=== PATIENT | male | born 1950 | race Caucasian/White ===

== ENCOUNTER 2016-04-14 18:05 | Inpatient (IN) | payer BC ==
[~2016-04-14] VITALS: Ht 167.6 cm; Wt 98.0 kg
[2016-04-14] VITALS (8 sets, daily range): BP systolic 71–135; BP diastolic 50–121; PULSE 84–98; TEMP 36.7–36.9; O2SAT 91–95; Ht 167.6 cm; Wt 98.0 kg
[~2016-04-14 18:05] MED LIST: B-COCAP2 PO; FLUT45AE IN; FLV1 PO; LDDP5 EXT; TPRSR/50 PO; VNTHFA/IN INH
[2016-04-14] MEDS ORDERED: ONDANSETRON INJ 2 MG/ML 2 ML VIAL IV STA (18:09)
[2016-04-14] MEDS: MoRPHine SULFATE 4 MG/ML 1 ML CARP\\VIAL IV PRN ×5 (18:18→20:56)
--- NOTE | 2016-04-14 18:25 | EMERGENCY ROOM VISIT NOTE ---
History Report prepared by Hilary: Gretchen Bucio Under the Supervision of: Dr. Salas Allen D.O. 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 Accounting to EMS the patient was walking backwards carrying a [place] tree and feel down causing his right hip pain. The patient states that he lightly bumped his head but did states that he did not lose consciousness. The patient denies any chest pain, back pain, headache, nausea or vomiting. The patient states that movement worsens his pain. 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 The patient states that he did drink 3 beers tonight prior to the fall. 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 A total of 10 systems reviewed and were otherwise negative. Past Medical & Surgical Medical Problems: (1) Alcohol abuse (2) Alcoholic Hyponatremia (3) COPD (chronic obstructive pulmonary disease) (4) Femur fracture, right (5) Hypertension (6) Metabolic encephalopathy (7) Multiple fractures of ribs of left side (8) Neuropathy Family History Heart disease Social History Smoking Status: Current Every Day Smoker Alcohol Use: none Drug Use: none Marital Status: Housing Status: lives with family Occupation Status: unemployed Current/Historical Medications Scheduled Atorvastatin (Lipitor), 40 MG PO QAM Fluticasone Propionate (Nasal) (Flonase Allergy Relief), 1-2 SPRAY HOSSEIN DAILY Fluticasone-Salmeterol 45/21 Mcg (Advair Hfa 45/21 Mcg), 1 PUFFS IN BID Folic Acid (Folic Acid), 1 MG PO QAM Lisinopril (Zestril), 10 MG PO QAM Metoprolol Succ (Toprol Xl) (Toprol-Xl), 25 MG PO QAM Metoprolol Succinate (Metoprolol Succinate ER), 50 MG PO QAM Oxcarbazepine (Trileptal), 1 TAB PO BID Pantoprazole (Protonix), 40 MG PO DAILY Pregabalin (Lyrica), 75 MG PO BID Thiamine Hcl (Vitamin B-1), 100 MG PO BID Venlafaxine Hcl (Venlafaxine Extended Rel), 150 MG PO QAM Vitamin B Cmplx/Vitc/Folic Ac (Nephrocaps), 1 CAP PO QAM Scheduled PRN Acetaminophen (Tylenol), 325-650 MG PO Q4H PRN for Pain Albuterol Hfa (Ventolin Hfa), 1-2 PUFFS INH Q4 PRN for Shortness of Breath Indomethacin (Indocin), 50 MG PO DAILY PRN for FLARE UP Allergies Coded Allergies: No Known Allergies (Unverified , 03/06/16) Physical Exam Vital Signs Date Time Temp Pulse Resp B/P Pulse Ox O2 Delivery O2 Flow Rate FiO2 04/14/16 20:09 94 18 108/75 96 Room Air 04/14/16 18:26 37.1 84 18 145/97 98 Room Air 04/14/16 18:24 85 Physical Exam GENERAL: Patient is awake, alert, very anxious and appears to be in significant pain. EYES: The conjunctivae are clear. The pupils are round and reactive. EARS, NOSE, MOUTH AND THROAT: The nose is without any evidence of any deformity. Mucous membranes are moist tongue is midline NECK: The neck is nontender and supple. Multiple dental caries noted throughout. RESPIRATORY: Normal respiratory effort is noted there is expiratory wheezing noted. No conversational dyspnea noted. CARDIOVASCULAR: Regular rate and rhythm noted there no murmurs rubs or gallops normal S1 normal S2 GASTROINTESTINAL: The abdomen is soft. Bowel sounds are present in all quadrants. Abdomen is nontender MUSCULOSKELETAL/EXTREMITIES: Right lower extremity was shortened and externally rotated. Patient has pain with any ROM of the right hip. SKIN: There is no obvious evidence of any rash. There are no petechiae, pallor or cyanosis noted. Severe pedal edema noted bilaterally, no signs of cellulitis. NEUROLOGIC: Patient is awake alert and oriented x3. Medical Decision & Procedures ER Provider Diagnostic Interpretation: X-ray results as stated below per interpretation by me and the radiologist. SINGLE VIEW PELVIS; 2 VIEWS RIGHT HIP; 3 VIEWS RIGHT FEMUR CLINICAL HISTORY: Fall with right leg pain. FINDINGS: An AP pelvic radiograph with AP and crosstable lateral views of the right hip as well as AP, frog-leg, and crosstable lateral views of the right femur are obtained. Correlation is made with pelvic CT dated 09/04/2015. The skeletal structures are osteopenic. The bony pelvis and visualized left hip appear intact. There is a comminuted, angulated, and distracted fracture of the subtrochanteric right femur. There is medial distraction of a large fragment which contains the lesser trochanter. There is anterior distraction of the distal femoral diaphysis by at least 4 cm. There is overriding of the fragments by approximately 8 cm. Overlying soft tissue hematoma is noted. The distal femur appears intact. The hip and knee joints appear preserved. Arthritic change is present within both hips. Calcified phleboliths are observed in the pelvis. There is a nonobstructed abdominal bowel gas pattern. IMPRESSION: 1. There is a comminuted, distracted, angulated, and overriding fracture of the subtrochanteric right femur with overlying soft tissue hematoma. See above. 2. The distal right femur appears intact. The bony pelvis and imaged left hip appear intact. Electronically signed by: Jack Santamaria M.D. 04/14/2016 7:41 PM Dictated Date/Time: 04/14/2016 7:37 PM SINGLE VIEW CHEST CLINICAL HISTORY: Fall. FINDINGS: An AP, portable, supine chest radiograph is compared to study dated 02/12/2015 and correlated with chest CT dated 09/04/2015. The examination is degraded by portable technique and patient rotation. The cardiomediastinal silhouette is unremarkable. Chronic interstitial thickening is similar to previous. There is no airspace consolidation, large pleural effusion, or pneumothorax. The skeletal structures are osteopenic. The bony thorax is grossly intact. IMPRESSION: No acute cardiopulmonary abnormality. Electronically signed by: Jack Santamaria M.D. 04/14/2016 7:43 PM Dictated Date/Time: 04/14/2016 7:41 PM SINGLE VIEW PELVIS; 2 VIEWS RIGHT HIP; 3 VIEWS RIGHT FEMUR CLINICAL HISTORY: Fall with right leg pain. FINDINGS: An AP pelvic radiograph with AP and crosstable lateral views of the right hip as well as AP, frog-leg, and crosstable lateral views of the right femur are obtained. Correlation is made with pelvic CT dated 09/04/2015. The skeletal structures are osteopenic. The bony pelvis and visualized left hip appear intact. There is a comminuted, angulated, and distracted fracture of the subtrochanteric right femur. There is medial distraction of a large fragment which contains the lesser trochanter. There is anterior distraction of the distal femoral diaphysis by at least 4 cm. There is overriding of the fragments by approximately 8 cm. Overlying soft tissue hematoma is noted. The distal femur appears intact. The hip and knee joints appear preserved. Arthritic change is present within both hips. Calcified phleboliths are observed in the pelvis. There is a nonobstructed abdominal bowel gas pattern. IMPRESSION: 1. There is a comminuted, distracted, angulated, and overriding fracture of the subtrochanteric right femur with overlying soft tissue hematoma. See above. 2. The distal right femur appears intact. The bony pelvis and imaged left hip appear intact. Electronically signed by: Jack Santamaria M.D. 04/14/2016 7:41 PM Dictated Date/Time: 04/14/2016 7:37 PM Laboratory Results Test 04/14/16 18:50 Prothrombin Time 11.3 SECONDS (9.0-12.0) Prothromb Time International Ratio 1.1 (0.9-1.1) Activated Partial Thromboplast Time 26.6 SECONDS (21.0-31.0) Partial Thromboplastin Ratio 1.0 Total Bilirubin 0.4 mg/dl (0.2-1) Direct Bilirubin < 0.1 mg/dl (0-0.2) Aspartate Amino Transf (AST/SGOT) 95 U/L (15-37) Alanine Aminotransferase (ALT/SGPT) 66 U/L (12-78) Alkaline Phosphatase 163 U/L (45-117) Total Creatine Kinase 88 U/L (39-308) Creatine Kinase MB 2.5 ng/ml (0.5-3.6) Creatine Kinase MB Ratio 2.8 (0-3.0) Troponin I < 0.015 ng/ml (0-0.045) Total Protein 6.9 gm/dl (6.4-8.2) Albumin 2.8 gm/dl (3.4-5.0) Lipase 265 U/L (73-393) Laboratory results per my review. Medications Administered Medications (Trade) Dose Ordered Sig/Feroz Route Start Time Stop Time Status Last Admin Dose Admin Ondansetron HCl (Zofran Inj) 4 mg NOW STAT IV 04/14/16 18:09 04/14/16 18:13 DC 04/14/16 18:18 4 MG Morphine Sulfate (MoRPHine SULFATE INJ) 4 mg Q15M PRN IV 04/14/16 18:15 04/14/16 22:02 DC 04/14/16 20:56 4 MG Hydromorphone HCl 1 mg 1 mg Q2H PRN IV 04/14/16 20:15 04/14/16 22:04 DC 04/14/16 21:52 1 MG Multivitamins/ Thiamine HCl/ Folic Acid/Sodium Chloride (Mvi Infusion Inj/Vitamin B-1 Inj/Folvite Inj/ Nss 1000ml) 1,011.2 ml @ 100 mls/ hr Q10H7M ONCE IV 04/14/16 20:30 04/15/16 06:36 DC 04/14/16 21:35 100 MLS/HR ED Course 1801: The patient was evaluated in room A2. A complete history and physical examination were performed. 1808: Ordered Zofran Inj 4 mg IV. 1814: Ordered Morphine Sulfate 4 mg IV. 1930:I discussed the case with Dr[facility] He agreed to evaluate the patient for further management and care. 1939: I discussed the case with Dr. Houston Orthopedic Surgeon. He states that the patient can be admitted and he will then evaluate his for surgery. Medical Decision Differential diagnosis: Etiologies such as fracture, dislocation, neurovascular compromise, compartment syndrome, soft tissue injury, as well as others were entertained. Nursing notes reviewed. The patient is a 65-year-old male who presented to the emergency department after fall. The patient was drinking some alcoholic beverages this evening but he was backing out of his doorway carrying his [place] tree when he fell striking his right side. He had a very significant some trochanteric angulated and displaced as well as comminuted right hip fracture. The patient was treated with IV fluids IV pain medication in the emergency department. His pain was not well controlled because of the nature of this fracture. I discussed his case with the on-call orthopedic physician. I also discussed his case with the on- call [facility] hospitalist group. They have agreed to evaluate the patient in the emergency department for further management and disposition. The patient was reevaluated multiple times. I also discussed his radiographic findings with his significant other. She is aware that he will require surgery after medical clearance. Consults Time Called: 1929 Consulting Physician: Dr. Kim [facility] Returned Call: 1930 I discussed the case with Dr. Kim [facility]. He agreed to evaluate the patient for further management and care. Additional Consults: Time Called: 1929 Consulted Physician: Dr. [facility] Orthopedic Surgery Returned Call: 1939 Additional Comments: I discussed the case with Dr. Houston Orthopedic Surgeon. He states that the patient can be admitted and he will then evaluate his for surgery. Impression Primary Impression: Closed subtrochanteric fracture of femur Additional Impressions: Fall Comminuted, Displaced, and angulated Subtrochanteric Right Hip Fracture Scribe Attestation The scribe's documentation has been prepared under my direction and personally reviewed by me in its entirety. I confirm that the note above accurately reflects all work, treatment, procedures, and medical decision making performed by me. Departure Information Dispostion Being Evaluated By Hospitalist Jakob Vuong M.D. (PCP) Problem Qualifiers Additional Impressions:
[2016-04-14 19:11] LABS: BASO % 0.2 %; BASO ABS # 0.02 K/uL (0-0.2); COMPLETE YES; EOS % 1.1 %; HEMATOCRIT 35.4 % (42-52); IG% 0.5 %; LYMPH % 17.2 %; MEAN CELL VOLUME 98.1 fL (80-100); MEAN CORPUSCULAR HGB CONC 33.6 g/dl (32-36); MEAN PLATELET VOLUME 9.3 fL (7.4-10.4); MONO % 6.4 %; NEUT % 74.6 %; PLATELET COUNT 178 K/uL (130-400); RED BLOOD COUNT 3.61 M/uL (4.7-6.1); WHITE BLOOD COUNT 8.12 K/uL (4.8-10.8)
[2016-04-14 19:22] LABS: INR 1.1 (0.9-1.1); PROTHROMBIN TIME (PATIENT) 11.3 SECONDS (9.0-12.0)
[2016-04-14 19:27] LABS: ALT/SGPT 66 U/L (12-78); BLOOD UREA NITROGEN 9 mg/dl (7-18); BUN/CREATININE RATIO 10.2 (10-20); CALCIUM 8.2 mg/dl (8.5-10.1); CARBON DIOXIDE 25 mmol/L (21-32); CHLORIDE 97 mmol/L (98-107); CREATININE 0.86 mg/dl (0.60-1.40); GLUCOSE 94 mg/dl (70-99); POTASSIUM 3.8 mmol/L (3.5-5.1); SODIUM 134 mmol/L (136-145)
[2016-04-14 19:32] LABS: ALKALINE PHOSPHATASE 163 U/L (45-117); AST/SGOT 95 U/L (15-37); CKMB/CK RATIO 2.8 (0-3.0)
[2016-04-14] MEDS ORDERED: FLUT0.15 NAE (19:33)
[2016-04-14] MEDS ORDERED: THIA100T11 PO (19:33)
[2016-04-14] MEDS ORDERED: PANT40TA PO (19:33)
--- NOTE | 2016-04-14 19:43 | DIAGNOSTIC IMAGING REPORT ---
SINGLE VIEW PELVIS; 2 VIEWS RIGHT HIP; 3 VIEWS RIGHT FEMUR CLINICAL HISTORY: Fall with right leg pain. FINDINGS: An AP pelvic radiograph with AP and crosstable lateral views of the right hip as well as AP, frog-leg, and crosstable lateral views of the right femur are obtained. Correlation is made with pelvic CT dated 09/04/2015. The skeletal structures are osteopenic. The bony pelvis and visualized left hip appear intact. There is a comminuted, angulated, and distracted fracture of the subtrochanteric right femur. There is medial distraction of a large fragment which contains the lesser trochanter. There is anterior distraction of the distal femoral diaphysis by at least 4 cm. There is overriding of the fragments by approximately 8 cm. Overlying soft tissue hematoma is noted. The distal femur appears intact. The hip and knee joints appear preserved. Arthritic change is present within both hips. Calcified phleboliths are observed in the pelvis. There is a nonobstructed abdominal bowel gas pattern. IMPRESSION: 1. There is a comminuted, distracted, angulated, and overriding fracture of the subtrochanteric right femur with overlying soft tissue hematoma. See above. 2. The distal right femur appears intact. The bony pelvis and imaged left hip appear intact. Electronically signed by: Jack Santamaria M.D. 04/14/2016 7:41 PM Dictated Date/Time: 04/14/2016 7:37 PM
--- NOTE | 2016-04-14 19:44 | DIAGNOSTIC IMAGING REPORT ---
SINGLE VIEW CHEST CLINICAL HISTORY: Fall. FINDINGS: An AP, portable, supine chest radiograph is compared to study dated 02/12/2015 and correlated with chest CT dated 09/04/2015. The examination is degraded by portable technique and patient rotation. The cardiomediastinal silhouette is unremarkable. Chronic interstitial thickening is similar to previous. There is no airspace consolidation, large pleural effusion, or pneumothorax. The skeletal structures are osteopenic. The bony thorax is grossly intact. IMPRESSION: No acute cardiopulmonary abnormality. Electronically signed by: Jack Santamaria M.D. 04/14/2016 7:43 PM Dictated Date/Time: 04/14/2016 7:41 PM
[2016-04-14] MEDS ORDERED: HYDROmorphone INJ 1 MG/ML SYR IV PRN (20:15)
[2016-04-14] MEDS ORDERED: SODIUM CHLORIDE 0.9% 500ML 500 ML IV SCH (20:15)
[2016-04-14] MEDS ORDERED: ZOLPIDEM TARTRATE 5 MG TAB PO PRN (20:15)
[2016-04-14] MEDS ORDERED: ONDANSETRON INJ 2 MG/ML 2 ML VIAL IV PRN (20:15)
[2016-04-14] MEDS ORDERED: ACETAMINOPHEN 325 MG TAB PO PRN (20:15)
[2016-04-14] MEDS ORDERED: LEVALBUTEROL/IPRATROPIUM NEB INH PRN (20:15)
[2016-04-14] MEDS ORDERED: MULTI-VITAMIN INFUSION INJ 10 ML, THIAMINE HCL INJ 100 MG, FoLIC ACID INJ 1 MG in SODIU... IV ONE (20:30)
[2016-04-14] MEDS ORDERED: ERGOCALCIFEROL 50,000 INTER.UNIT CAP PO SCH (20:45)
--- NOTE | 2016-04-14 21:03 | HISTORY & PHYSICAL EXAMINATION ---
DATE OF ADMISSION: 04/14/2016 CHIEF COMPLAINT: Right hip and leg pain. HISTORY OF PRESENT ILLNESS: A 65-year-old male admitted through the Emergency Department who complains of right hip and leg pain after falling walking backwards carrying a [place] tree and slipped and fell and tripped and landed on his right side, sustained a severely displaced highly comminuted subtrochanteric femur fracture. He notes that he has a chronic neuropathy, had a history of having an epidural abscess that required surgical treatment at [place]. He now has chronic weakness in both legs and neuropathy. He admits to drinking a minimum of 3 beers a day. He does also smoke. He is interviewed in the presence of his and his granddaughter. REVIEW OF SYSTEMS: Reveals no chest pain, shortness of breath, fever or chills. He notes that he is in his usual state of good health otherwise. PAST MEDICAL AND SURGICAL HISTORY: Remarkable for alcohol abuse, hyponatremia, COPD, hypertension, metabolic encephalopathy, neuropathy, history of spinal decompression for epidural abscess and history of gout. FAMILY HISTORY: Remarkable for heart disease. SOCIAL HISTORY: Reveals that he smokes and drinks. He denies any other drug use. He is . He lives with his family. He is unemployed. PREADMISSION MEDICATIONS: Include Lipitor 40 mg daily, Flonase spray 1-2 sprays daily, Advair 1 puff b.i.d., folic acid 1 mg q.a.m., lisinopril 10 mg q.a.m., metoprolol 25 mg q.a.m., metoprolol ER 50 mg p.o. q.a.m., Trileptal 1 tab p.o. b.i.d., Protonix 40 mg daily, Lyrica 75 mg b.i.d., thiamine 100 mg p.o. b.i.d., venlafaxine extended release 150 mg p.o. q.a.m., vitamin B complex 1 capsule p.o. q.a.m.; p.r.n. Tylenol, p.r.n. albuterol and p.r.n., indomethacin. ALLERGIES: None. PHYSICAL EXAMINATION: GENERAL: Today reveals minor scuffs and scrapes of age-indeterminate time from fresh to old about the upper extremities, about his face. Denies any neck pain. HEENT: Pupils are slightly changed secondary to the morphine, they are equal, round and reactive to light. EOMI is intact. Eye membranes are clear. No trauma to the ears. NECK: nontender. CHEST: Mild wheezing with expiration. Distant breath sounds. CARDIOVASCULAR: Reveals distant breath sounds. No murmurs, gallops or rubs. GASTROINTESTINAL: Soft, bowel sounds active. EXTREMITIES: Both upper extremities have no major deformity or pain. Left lower extremity has no deformity or pain. Right lower extremity has severe shortening external rotation and pain. NEUROLOGICAL: Reveals that he is alert and oriented to person, place and time. He answers questions appropriately. He has upper extremity function is within normal limits. Lower extremity knee function reveals significant neuropathy in both lower extremities, right worse than left with weakness in both lower extremities and decreased sensation. IMAGING DATA: X-rays reveal no pelvic fracture, no femoral neck fracture and has a subtrochanteric femur fracture with significant subtroch extension. ASSESSMENT: Significantly displaced and angulated subtrochanteric femur fracture, right lower extremity. Will need open reduction internal fixation with locked troch nail, long variety. Will book for surgery tomorrow. Will be n.p.o. after midnight. Appropriate antibiotics will be ordered perioperatively. Consent was signed by him and his and with his medical history obviously comorbidities increase his chance for significant problems such as PE, DVT, heart and liver, lung disease, , anesthesia, failure to heal with his tobacco, malrotation because of the severity of the fracture, leg length shortening because of the severity of the fracture, to mention but not be completely inclusive. At this point in time, will prepare for surgery tomorrow. WENDY
[2016-04-14] MEDS ORDERED: HYDROmorphone INJ 1 MG/ML SYR XX PRN (21:30)
[2016-04-14] MEDS ORDERED: LEVALBUTEROL 1.25MG/0.5ML NEB INH PRN (21:30)
[2016-04-14] MEDS ORDERED: IPRATROPIUM BROMIDE NEB SOLN 0.02% 2.5 ML VIAL INH PRN (21:30)
[2016-04-14] MEDS ORDERED: INFLUENZA ADMINISTRATION CHARGE ONE (23:00)
[2016-04-14] MEDS ORDERED: INFLUENZA VIRUS QUAD VACCINE 0.5 ML SYR IM. ONE (23:00)
[2016-04-14] MEDS: PREGABALIN 75 MG CAP PO SCH (23:03)
[2016-04-14] MEDS: THIAMINE HCL 100 MG TAB PO SCH (23:04)
[2016-04-14] MEDS: OXCARBAZEPINE 150 MG TAB PO SCH (23:04)
[2016-04-14] MEDS: METOPROLOL SUCC 25MG EXT REL TAB PO SCH (23:04)
[2016-04-15] VITALS (20 sets, daily range): BP systolic 73–106; BP diastolic 54–84; PULSE 94–132; TEMP 36.1–37.6; O2SAT 92–100
[2016-04-15] MEDS: FLUTICASONE/SALMETEROL 100/50 (ADVAIR) 14 PUFF/1 INHALER INH SCH ×3 (00:45→21:06)
[2016-04-15] MEDS: HYDROmorphone INJ 1 MG/ML SYR IV PRN ×3 (00:50→08:15)
[2016-04-15 00:54] LABS: URINE APPEARANCE CLEAR (CLEAR); URINE BILIRUBIN NEG (NEG); URINE COLOR YELLOW; URINE NITRITE NEG (NEG); URINE SPECIFIC GRAVITY 1.011 (1.000-1.030); UROBILINOGEN NEG (NEG)
[2016-04-15 00:56] LABS: MANUAL MICROSCOPIC REQUIRED? NO; REVIEW REQ? NO
--- NOTE | 2016-04-15 04:55 | History and Physical ---
History & Physical Date & Time of Service: Apr 15, 2016 at 04:43 Chief Complaint: Femur Fracture, Right Primary Care Physician: Jakob Cage M.D. History of Present Illness Source: patient, family The patient is a 65-year-old male who presents emergency department with complaint of constant right hip pain that began shortly prior to arrival when he was dragging a [place] tree backwards out of his house and fell down. His only other injury was a slight bump to his head, but he did not lose consciousness and has no headache or other neurologic complaints. 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 He reports drinking 3 beers prior to his fall tonight. Past Medical/Surgical History Medical Problems: (1) Alcohol abuse Status: Chronic (2) Alcoholic Hyponatremia Status: Chronic (3) COPD (chronic obstructive pulmonary disease) Status: Chronic (4) Hypertension Status: Chronic (5) Metabolic encephalopathy Status: Chronic (6) Neuropathy Status: Chronic Family History Heart disease Social History Smoking Status: Current Every Day Smoker Smokeless Tobacco Use: No Alcohol Use: daily. Drug Use: none Marital Status: Housing status: lives with family Occupational Status: unemployed Multi-Drug Resistant Organisms History of MDRO: No Allergies Coded Allergies: No Known Allergies (Unverified , 03/06/16) Home Medications Scheduled Atorvastatin (Lipitor), 40 MG PO QAM Fluticasone Propionate (Nasal) (Flonase Allergy Relief), 1-2 SPRAY HOSSEIN DAILY Fluticasone-Salmeterol 45/21 Mcg (Advair Hfa 45/21 Mcg), 1 PUFFS IN BID Folic Acid (Folic Acid), 1 MG PO QAM Lisinopril (Zestril), 10 MG PO QAM Metoprolol Succ (Toprol Xl) (Toprol-Xl), 25 MG PO QAM Metoprolol Succinate (Metoprolol Succinate ER), 50 MG PO QAM Oxcarbazepine (Trileptal), 1 TAB PO BID Pantoprazole (Protonix), 40 MG PO DAILY Pregabalin (Lyrica), 75 MG PO BID Thiamine Hcl (Vitamin B-1), 100 MG PO BID Venlafaxine Hcl (Venlafaxine Extended Rel), 150 MG PO QAM Vitamin B Cmplx/Vitc/Folic Ac (Nephrocaps), 1 CAP PO QAM Scheduled PRN Acetaminophen (Tylenol), 325-650 MG PO Q4H PRN for Pain Albuterol Hfa (Ventolin Hfa), 1-2 PUFFS INH Q4 PRN for Shortness of Breath Indomethacin (Indocin), 50 MG PO DAILY PRN for FLARE UP Review of Systems The patient denies chest pain, palpitations, shortness of breath, cough, vision change, hearing change, sore throat, fevers, chills, sweats, weight change, fatigue, nausea, vomiting, abdominal pain, pelvic pain, blood in urine or stool , dysuria, urinary frequency or urgency, lightheadedness, dizziness, headache, memory loss, rash, abnormal bruising or bleeding, night sweats, or allergy symptoms. The review of systems is otherwise negative other than for that already noted above, and at least 10 systems have been reviewed. Physical Exam Vital Signs Date Time Temp Pulse Resp B/P Pulse Ox O2 Delivery O2 Flow Rate FiO2 04/14/16 23:50 Room Air 04/14/16 23:50 36.9 98 16 97/62 91 Room Air 04/14/16 22:46 36.7 96 22 93/50 91 Room Air 04/14/16 22:20 84 135/121 04/14/16 22:09 93/67 04/14/16 22:01 105/68 04/14/16 21:50 99/68 04/14/16 21:45 36.7 94 22 71/55 95 Room Air 04/14/16 21:30 36.7 94 22 105/68 95 Room Air 04/14/16 20:49 90 18 112/77 94 Room Air 04/14/16 20:09 94 18 108/75 96 Room Air 04/14/16 18:26 37.1 84 18 145/97 98 Room Air 04/14/16 18:24 85 The patient is awake, well-developed and adequately nourished, alert and oriented 3, normocephalic and atraumatic, lying in bed and in moderately severe distress secondary to right hip pain with minimal movement. HEENT--PERRL, EOMI, mucous membranes moist, and oropharynx normal. Neck--supple, no JVD or bruits, thyroid normal, trachea midline, no adenopathy. Heart--normal S1 and S2, no extra beats, no murmurs, rubs or gallops. Lungs--clear bilaterally with good air movement, no respiratory distress, no accessory muscle use. Abdomen--normal bowel sounds and soft, nontender and nondistended, no hernias or masses, no organomegaly. Extremities--no cyanosis, clubbing. There is bilaterally 1-2+ pitting edema. There are good distal pulses b/l. Dermatologic--normal skin turgor, normal color, warm and dry, no abnormal lymph nodes, no rash. Neurologic--cranial nerves II through XII grossly intact. Rheumatologic--decreased range of motion and severe reproducible pain over right hip area. Psychiatric--normal affect. Diagnostics Laboratory Results Results Past 24 Hours Test 04/14/16 18:50 04/14/16 21:05 04/15/16 00:15 Range/Units White Blood Count 8.12 4.8-10.8 K/uL Red Blood Count 3.61 4.7-6.1 M/uL Hemoglobin 11.9 14.0-18.0 g/dL Hematocrit 35.4 42-52 % Mean Corpuscular Volume 98.1 80-100 fL Mean Corpuscular Hemoglobin 33.0 25-34 pg Mean Corpuscular Hemoglobin Concent 33.6 32-36 g/dl Platelet Count 178 130-400 K/uL Mean Platelet Volume 9.3 7.4-10.4 fL Neutrophils (%) (Auto) 74.6 % Lymphocytes (%) (Auto) 17.2 % Monocytes (%) (Auto) 6.4 % Eosinophils (%) (Auto) 1.1 % Basophils (%) (Auto) 0.2 % Neutrophils # (Auto) 6.05 1.4-6.5 K/uL Lymphocytes # (Auto) 1.40 1.2-3.4 K/uL Monocytes # (Auto) 0.52 0.11-0.59 K/uL Eosinophils # (Auto) 0.09 0-0.5 K/uL Basophils # (Auto) 0.02 0-0.2 K/uL RDW Standard Deviation 51.0 36.4-46.3 fL RDW Coefficient of Variation 14.2 11.5-14.5 % Immature Granulocyte % (Auto) 0.5 % Immature Granulocyte # (Auto) 0.04 0.00-0.02 K/uL Prothrombin Time 11.3 9.0-12.0 SECONDS Prothromb Time International Ratio 1.1 0.9-1.1 Activated Partial Thromboplast Time 26.6 21.0-31.0 SECONDS Partial Thromboplastin Ratio 1.0 Sodium Level 134 136-145 mmol/L Potassium Level 3.8 3.5-5.1 mmol/L Chloride Level 97 98-107 mmol/L Carbon Dioxide Level 25 21-32 mmol/L Anion Gap 12.0 3-11 mmol/L Blood Urea Nitrogen 9 7-18 mg/dl Creatinine 0.86 0.60-1.40 mg/dl Est Creatinine Clear Calc Drug Dose 94.3 ml/min Estimated GFR () 107.0 Estimated GFR (Non- 92.3 BUN/Creatinine Ratio 10.2 10-20 Random Glucose 94 70-99 mg/dl Calcium Level 8.2 7.8 8.5-10.1 mg/dl Total Bilirubin 0.4 0.2-1 mg/dl Direct Bilirubin < 0.1 0-0.2 mg/dl Aspartate Amino Transf (AST/SGOT) 95 15-37 U/L Alanine Aminotransferase (ALT/SGPT) 66 12-78 U/L Alkaline Phosphatase 163 45-117 U/L Total Creatine Kinase 88 39-308 U/L Creatine Kinase MB 2.5 0.5-3.6 ng/ml Creatine Kinase MB Ratio 2.8 0-3.0 Troponin I < 0.015 0-0.045 ng/ml Total Protein 6.9 6.4-8.2 gm/dl Albumin 2.8 3.4-5.0 gm/dl Lipase 265 73-393 U/L Urine Color YELLOW Urine Appearance CLEAR CLEAR Urine pH 5.0 4.5-7.5 Urine Specific [place] 1.011 1.000-1.030 Urine Protein NEG NEG Urine Glucose (UA) NEG NEG Urine Ketones NEG NEG Urine Occult Blood NEG NEG Urine Nitrite NEG NEG Urine Bilirubin NEG NEG Urine Urobilinogen NEG NEG Urine Leukocyte Esterase NEG NEG Diagnostic Radiology Patient Name: DENAE LAL Unit Number: [id number] Dictated: 04/14/161936 Transcribed: 04/14/161936 EV Printed Date/Time: [~ rep prt dt]/[~ rep prt tm] [~ rep ct labl] - [~ rep ct ivnm] [facility] [place] [place] [address] Dictated: 04/14/161936 Transcribed: 04/14/161936 EV Printed Date/Time: [~ rep prt dt]/[~ rep prt tm] [~ rep ct labl] - [~ rep ct ivnm] [~ rep ct add3]] SINGLE VIEW PELVIS; 2 VIEWS RIGHT HIP; 3 VIEWS RIGHT FEMUR CLINICAL HISTORY: Fall with right leg pain. FINDINGS: An AP pelvic radiograph with AP and crosstable lateral views of the right hip as well as AP, frog-leg, and crosstable lateral views of the right femur are obtained. Correlation is made with pelvic CT dated 09/04/2015. The skeletal structures are osteopenic. The bony pelvis and visualized left hip appear intact. There is a comminuted, angulated, and distracted fracture of the subtrochanteric right femur. There is medial distraction of a large fragment which contains the lesser trochanter. There is anterior distraction of the distal femoral diaphysis by at least 4 cm. There is overriding of the fragments by approximately 8 cm. Overlying soft tissue hematoma is noted. The distal femur appears intact. The hip and knee joints appear preserved. Arthritic change is present within both hips. Calcified phleboliths are observed in the pelvis. There is a nonobstructed abdominal bowel gas pattern. IMPRESSION: 1. There is a comminuted, distracted, angulated, and overriding fracture of the subtrochanteric right femur with overlying soft tissue hematoma. See above. 2. The distal right femur appears intact. The bony pelvis and imaged left hip appear intact. Electronically signed by: Jack Santamaria M.D. 04/14/2016 7:41 PM Dictated Date/Time: 04/14/2016 7:37 PM The status of this report is Signed. Draft = Not yet reviewed or approved by Radiologist. Signed = Reviewed and approved by Radiologist. <AttendingPhy></AttendingPhy> <FamilyPhy>Jakob Cage M.D.</FamilyPhy> < PrimaryPhy>Jakob Cage M.D.</PrimaryPhy> <UnitNumber>[id number]</UnitNumber > <VisitNumber>[id number]</VisitNumber> <PatientName>LUSE,DENAE</PatientName> <DateOfBirth>1950</DateOfBirth> <Location>[facility]</Location> <ServiceDate></ServiceDate> <MNE>ESINDI</MNE> <OrderingPhy>Salas Allen D.O.</ OrderingPhy> <OrderingPhyMNE>f rep ord dr go</OrderingPhyMNE> <DictatingPhyMNE> f rep dict dr go</DictatingPhyMNE> <CCListMNE>f rep ct mne</CCListMNE> < AdmittingPhyMNE>f pt admit dr go</AdmittingPhyMNE> <AttendingPhyMNE>f pt attend dr go</AttendingPhyMNE> <ConsultingPhyMNE>f pt consult dr go</ConsultingPhyMNE> <FamilyPhyMNE>f pt fam dr go</FamilyPhyMNE> <OtherPhyMNE>f pt other dr go</OtherPhyMNE> < PrimaryPhyMNE>f pt prim care dr go</PrimaryPhyMNE> <ReferringPhyMNE>f pt referring dr go</ReferringPhyMNE> Patient Name: DENAE LAL Unit Number: [id number] Dictated: 04/14/161940 Transcribed: 04/14/161940 EV Printed Date/Time: [~ rep prt dt]/[~ rep prt tm] [~ rep ct labl] - [~ rep ct ivnm] [facility] Radiology Department [place], [place] [id number] Dictated: 04/14/161940 Transcribed: 04/14/161940 EV Printed Date/Time: [~ rep prt dt]/[~ rep prt tm] [~ rep ct labl] - [~ rep ct ivnm] [~ rep ct add3]] SINGLE VIEW CHEST CLINICAL HISTORY: Fall. FINDINGS: An AP, portable, supine chest radiograph is compared to study dated 02/12/2015 and correlated with chest CT dated 09/04/2015. The examination is degraded by portable technique and patient rotation. The cardiomediastinal silhouette is unremarkable. Chronic interstitial thickening is similar to previous. There is no airspace consolidation, large pleural effusion, or pneumothorax. The skeletal structures are osteopenic. The bony thorax is grossly intact. IMPRESSION: No acute cardiopulmonary abnormality. Electronically signed by: Jack Santamaria M.D. 04/14/2016 7:43 PM Dictated Date/Time: 04/14/2016 7:41 PM The status of this report is Signed. Draft = Not yet reviewed or approved by Radiologist. Signed = Reviewed and approved by Radiologist. <AttendingPhy></AttendingPhy> <FamilyPhy>Jakob Cage M.D.</FamilyPhy> < PrimaryPhy>Jakob Cage M.D.</PrimaryPhy> <UnitNumber>[id number]</UnitNumber > <VisitNumber>[id number]</VisitNumber> <PatientName>DENAE LAL</PatientName> <DateOfBirth>1950</DateOfBirth> <Location>[facility]</Location> <ServiceDate></ServiceDate> <MNE>ESINDI</MNE> <OrderingPhy>Salas Allen D.O.</ OrderingPhy> <OrderingPhyMNE>f rep ord dr go</OrderingPhyMNE> <DictatingPhyMNE> f rep dict dr go</DictatingPhyMNE> <CCListMNE>f rep ct mne</CCListMNE> < AdmittingPhyMNE>f pt admit dr go</AdmittingPhyMNE> <AttendingPhyMNE>f pt attend dr go</AttendingPhyMNE> <ConsultingPhyMNE>f pt consult dr go</ConsultingPhyMNE> <FamilyPhyMNE>f pt fam dr go</FamilyPhyMNE> <OtherPhyMNE>f pt other dr go</OtherPhyMNE> < PrimaryPhyMNE>f pt prim care dr go</PrimaryPhyMNE> <ReferringPhyMNE>f pt referring dr go</ReferringPhyMNE> Patient Name: DENAE LAL Unit Number: [id number] Dictated: 04/14/161936 Transcribed: 04/14/161936 EV Printed Date/Time: [~ rep prt dt]/[~ rep prt tm] [~ rep ct labl] - [~ rep ct ivnm] [facility] [place] [place] [address] Dictated: 04/14/161936 Transcribed: 04/14/161936 EV Printed Date/Time: [~ rep prt dt]/[~ rep prt tm] [~ rep ct labl] - [~ rep ct ivnm] SINGLE VIEW PELVIS; 2 VIEWS RIGHT HIP; 3 VIEWS RIGHT FEMUR CLINICAL HISTORY: Fall with right leg pain. FINDINGS: An AP pelvic radiograph with AP and crosstable lateral views of the right hip as well as AP, frog-leg, and crosstable lateral views of the right femur are obtained. Correlation is made with pelvic CT dated 09/04/2015. The skeletal structures are osteopenic. The bony pelvis and visualized left hip appear intact. There is a comminuted, angulated, and distracted fracture of the subtrochanteric right femur. There is medial distraction of a large fragment which contains the lesser trochanter. There is anterior distraction of the distal femoral diaphysis by at least 4 cm. There is overriding of the fragments by approximately 8 cm. Overlying soft tissue hematoma is noted. The distal femur appears intact. The hip and knee joints appear preserved. Arthritic change is present within both hips. Calcified phleboliths are observed in the pelvis. There is a nonobstructed abdominal bowel gas pattern. IMPRESSION: 1. There is a comminuted, distracted, angulated, and overriding fracture of the subtrochanteric right femur with overlying soft tissue hematoma. See above. 2. The distal right femur appears intact. The bony pelvis and imaged left hip appear intact. Electronically signed by: Jack Santamaria M.D. 04/14/2016 7:41 PM Dictated Date/Time: 04/14/2016 7:37 PM The status of this report is Signed. Draft = Not yet reviewed or approved by Radiologist. Signed = Reviewed and approved by Radiologist. <AttendingPhy></AttendingPhy> <FamilyPhy>Jakob Cage M.D.</FamilyPhy> < PrimaryPhy>Niles, Jakob O.,M.D.</PrimaryPhy> <UnitNumber>[id number]</UnitNumber > <VisitNumber>[id number]</VisitNumber> <PatientName>DENAE LAL</PatientName> <DateOfBirth>1950</DateOfBirth> <Location>[facility]</Location> <ServiceDate></ServiceDate> <MNE>ESINDI</MNE> <OrderingPhy>Salas Allen D.O.</ OrderingPhy> <OrderingPhyMNE>f rep ord dr go</OrderingPhyMNE> <DictatingPhyMNE> f rep dict dr go</DictatingPhyMNE> <CCListMNE>f rep ct abbi</CCListMNE> < AdmittingPhyMNE>f pt admit dr go</AdmittingPhyMNE> <AttendingPhyMNE>f pt attend dr go</AttendingPhyMNE> <ConsultingPhyMNE>f pt consult dr go</ConsultingPhyMNE> <FamilyPhyMNE>f pt fam dr go</FamilyPhyMNE> <OtherPhyMNE>f pt other dr go</OtherPhyMNE> < PrimaryPhyMNE>f pt prim care dr go</PrimaryPhyMNE> <ReferringPhyMNE>f pt referring dr go</ReferringPhyMNE> EKG EKG shows normal sinus rhythm at 88 bpm, with no acute ST-T changes. Impression Assessment and Plan Right hip fracture status post fall--the patient will be admitted to the medical surgical floor, and has been seen by orthopedic surgeon Dr. Houston in the emergency department, with plans for surgical repair in the a.m. tomorrow. Pain management with Dilaudid 0.5-1 mg IV every 2 hours when necessary. The patient will be nothing by mouth after midnight. Hypertension--continue metoprolol succinate ER be changed to 25 mg by mouth twice a day with hold parameters, and continue lisinopril 10 mg by mouth every morning. Hypercholesterolemia--continue atorvastatin 40 mg by mouth every morning. Alcohol use--we'll place on banana bag at 100 mg by mouth per hour now. Banana bag will be run at 100 mg/h every morning 1 L, and then replaced by normal saline with potassium chloride 20 mEq at 100 ML's per hour after that. The patient will need to be watched closely for alcohol withdrawal during hospital stay, and will have lorazepam 1 mg IV every 4 hours when necessary available. Asthma/tobacco use disorder--change Advair HFA 2 Advair discus 100/50 one inhalation twice a day, and have available Xopenex at that for nebulizers to use every 2 hours when necessary. Anxiety/depression-- continue venlafaxine ER 150 mg by mouth every morning, Trileptal 1 by mouth twice a day. Peripheral neuropathy--continue Lyrica 75 mg by mouth twice a day. GERD--continue pantoprazole 40 mg by mouth daily. Allergic rhinitis--continue Flonase 2 sprays each nostril daily. Level of Care Med/Surg Advanced Directives Existing Advance Directive: No Existing Living Will: No Existing Power of Fire Extinguisher Sprinkler Inspector: No Resuscitation Status FULL RESUSCITATION VTE Prophylaxis VTE Risk Assessment Done? Y/N: Yes Risk Level: Moderate Given or contraindicated: SCD's Social Service Consult None Apply
[2016-04-15] MEDS ORDERED: CEFAZOLIN 2000 MG/60 ML D5W 60 ML IV SCH (06:00)
[2016-04-15] MEDS: NSS + 20MEQ KCL 1000ML 1,000 ML IV SCH ×2 (07:37→07:38)
[2016-04-15] MEDS ORDERED: SODIUM CHLORIDE 0.9% 1000ML 1,000 ML IV SCH (08:00)
[2016-04-15 08:02] LABS: BASO % 0.3 %; BASO ABS # 0.03 K/uL (0-0.2); COMPLETE YES; EOS % 1.4 %; HEMATOCRIT 28.9 % (42-52); IG% 0.4 %; LYMPH % 15.3 %; LYMPH ABS # 1.59 K/uL (1.2-3.4); MEAN CELL VOLUME 98.3 fL (80-100); MEAN CORPUSCULAR HGB CONC 33.6 g/dl (32-36); MEAN PLATELET VOLUME 9.1 fL (7.4-10.4); MONO % 9.4 %; NEUT % 73.2 %; PLATELET COUNT 157 K/uL (130-400); RED BLOOD COUNT 2.94 M/uL (4.7-6.1); WHITE BLOOD COUNT 10.42 K/uL (4.8-10.8)
--- NOTE | 2016-04-15 08:18 | History & Physical Bridge Note ---
H&P Re-Evaluation Bridge Note: I have examined the patient, reviewed the History & Physical and in the interval since the performance of the History & Physical I have noted the following changes of clinical significance: No changes noted
[2016-04-15 08:22] LABS: BUN/CREATININE RATIO 8.6 (10-20); CALCIUM 7.2 mg/dl (8.5-10.1); MAGNESIUM 1.8 mg/dl (1.8-2.4)
[2016-04-15] MEDS: MULTI-VITAMIN INFUSION INJ 10 ML, THIAMINE HCL INJ 100 MG, FoLIC ACID INJ 1 MG in SODIU... IV SCH (08:31)
[2016-04-15] MEDS: NEPHROCAPS PO SCH (08:32)
[2016-04-15] MEDS: VENLAFAXINE HCL XR 75 MG CAPXR PO SCH (08:32)
[2016-04-15] MEDS: FLUTICASONE PROPIONATE NA SPR 16 GM BTL NAE SCH (08:32)
[2016-04-15] MEDS: PREGABALIN 75 MG CAP PO SCH ×2 (08:32→21:05)
[2016-04-15] MEDS: ATORVASTATIN 20 MG TAB PO SCH (08:32)
[2016-04-15] MEDS: THIAMINE HCL 100 MG TAB PO SCH ×2 (08:33→21:08)
[2016-04-15] MEDS: OXCARBAZEPINE 150 MG TAB PO SCH ×2 (08:33→21:07)
[2016-04-15] MEDS: METOPROLOL SUCC 25MG EXT REL TAB PO SCH (08:33)
--- NOTE | 2016-04-15 08:36 | PROGRESS NOTE ---
DATE: 04/15/2016 At this point in time, he is resting comfortably in bed. He has episodes of hypertension, likely based on his narcotic. He denies any chest pain, shortness of breath, fever or chills. Neurovascular check of both lower extremities is at baseline. He has some neuropathy, but has good motor function. Pulses are trace. Inspection of the thigh does not reveal any grossly enlarging hematoma. The a.m. laboratory work is pending. ASSESSMENT: Complex subtrochanteric femur fracture, in a very complicated patient with metabolic encephalopathy and neuropathy; history of discitis with abscess and history of alcohol abuse. Plan is to proceed with surgical fixation JAMES. The a.m. laboratory work is pending.
[2016-04-15 08:45] LABS: CREATININE 1.7 mg/dl (0.60-1.40); POTASSIUM 4.5 mmol/L (3.5-5.1)
[2016-04-15] MEDS ORDERED: PANTOprazole SOD 40 MG TAB PO SCH (09:00)
[2016-04-15] MEDS ORDERED: ROCURONIUM BROMIDE 10 MG/ML 5 ML VIAL ONE (09:30)
[2016-04-15] MEDS ORDERED: PROPOFOL IV EMULSION 10 MG/ML 20 ML VIAL IV ONE (09:30)
[2016-04-15] MEDS ORDERED: LIDOCAINE HCL 2% 2 ML VIAL (20MG/ML) ONE (09:31)
[2016-04-15] MEDS ORDERED: PHENYLEPHRINE 100MCG/ML 5ML SYR ONE (09:31)
[2016-04-15] MEDS ORDERED: EpHEDrine SULFATE 50MG/5ML SYR ONE ×2 (09:31→12:13)
[2016-04-15] MEDS ORDERED: SUCCINYLCHOLINE CHLORIDE 20 MG/ML 10 ML VIAL IV ONE (09:31)
[2016-04-15] MEDS ORDERED: FENTANYL CITRATE INJ 50 MCG/1 ML 2 ML VIAL ONE (09:36)
[2016-04-15] MEDS ORDERED: MIDAZOLAM HCL 1 MG/ML 2ML VIAL ONE (09:37)
[2016-04-15] MEDS ORDERED: ONDANSETRON INJ 2 MG/ML 2 ML VIAL IV PRN ×2 (10:30→13:00)
[2016-04-15] MEDS ORDERED: FENTANYL CITRATE INJ 50 MCG/1 ML 2 ML VIAL IV PRN (10:30)
[2016-04-15] MEDS ORDERED: EpHEDrine SULFATE INJ 50 MG/ML AMP IV PRN (10:30)
[2016-04-15] MEDS ORDERED: HYDROmorphone INJ 1 MG/ML SYR IV PRN ×2 (10:30→15:30)
[2016-04-15] MEDS ORDERED: ATROPINE SULFATE 0.1 MG/ML 5ML SYR IV PRN (10:30)
[2016-04-15] MEDS ORDERED: ALBUT/IPRATROP 3MG/0.5MG NEB 3 ML VIAL INH SCH (10:30)
[2016-04-15] MEDS ORDERED: GLYCOPYRROLATE INJ 0.2 MG/ML VIAL ONE (10:32)
[2016-04-15] MEDS ORDERED: ONDANSETRON INJ 2 MG/ML 2 ML VIAL ONE (10:32)
[2016-04-15] MEDS ORDERED: PHENYLEPHRINE HCL INJ 10 MG/ML VIAL ONE ×2 (10:32→11:57)
[2016-04-15] MEDS ORDERED: NEOSTIGMINE METHYLSULFATE 5 MG/5 ML SYR ONE (10:32)
[2016-04-15] MEDS ORDERED: PANTOprazole INJ 40 MG in SYRINGE 0 ML IV SCH (11:00)
--- NOTE | 2016-04-15 12:31 | [facility] Post Operative Brief Note ---
Immediate Operative Summary Operative Date Apr 15, 2016. Pre-Operative Diagnosis Right Femur Fracture Post-Operative Diagnosis Right Femur Fracture Procedure(s) Performed Right ORIF Subtrochanteric Intramedullary Erick Femur Surgeon Dr. Leno Houston Inspector Experimental Assembly Surgeon(s) None Estimated Blood Loss 350cc Findings severe fx Fluids (cc crystalloids) 2200cc Specimens none per surgeon Drains none Anesthesia GET Complication(s) None Disposition Recovery Room / PACU
--- NOTE | 2016-04-15 12:49 | DIAGNOSTIC IMAGING REPORT ---
INTRAOPERATIVE RIGHT FEMUR 6 VIEWS CLINICAL HISTORY: Subtrochanteric right hip fracture COMPARISON: 04/14/2016 DISCUSSION: 341 seconds of fluoroscopic time was utilized. The patient's subtrochanteric right hip fracture has been fixated with a femoral neck nail and interlocking medullary trino. There is distraction of the lesser trochanteric fragment. There is fracture fragment distraction slightly exceeding one half of the shaft width. IMPRESSION: Internal fixation of the previously described right hip fracture Electronically signed by: Chuck Cartwright M.D. 04/15/2016 12:47 PM Dictated Date/Time: 04/15/2016 12:45 PM
[2016-04-15] MEDS ORDERED: MoRPHine SULFATE 2 MG/ML CARP IV PRN (13:00)
[2016-04-15] MEDS ORDERED: OXYCODONE/ACETAMINOPHEN 5-325 TAB PO PRN (13:00)
[2016-04-15] MEDS ORDERED: SOD PHOSPHATE/SOD BIPHOSPHATE ENEMA 132 ML BTL PR PRN (13:00)
[2016-04-15] MEDS ORDERED: BISACODYL 10 MG SUPP PR PRN (13:00)
[2016-04-15] MEDS ORDERED: ALUMINUM/MAGNESIUM/SIMETH (MAALOX MAX) 30 ML UDC PO PRN (13:00)
--- NOTE | 2016-04-15 13:00 | OPERATIVE REPORT ---
DATE OF OPERATION: 04/15/2016 PREOPERATIVE DIAGNOSIS: Comminuted extensive peritrochanteric/subtrochanteric femur fracture, right lower extremity. POSTOPERATIVE DIAGNOSIS: Same. OPERATION PERFORMED: Open reduction internal fixation with lock troch nail long. SURGEON: Dr. Houston. SUMMARY OF IMPLANTS: 11 mm x 380 mm 130 degree troch nail, spiral helical blade 95 mm, 2 locking screws distally, 5 x 40 and 5 x 42. ESTIMATED BLOOD LOSS: 350 mL. CRYSTALLOID: 2200 mL. PERIOPERATIVE SITUATION: Medically cleared male with intractable leg pain has an extensive complicated medical history. Please see his H\T\P. He is here for fixing a femur fracture. PROCEDURE: The patient was properly identified, site verified, consent verified, 2 grams of Ancef confirmed as being given. The right lower extremity was prepped and draped in usual routine fashion. Attempts to reduce the fracture revealed that it was still deformed by the flexion deformity of the hip flexors. As a result, after prepping and draping it required open reduction. An extensile incision was made and then verbruge clamp placed. The proximal femur was then entered and the appropriate guide pin passed and then serial reaming carried up from 8 mm to 14 mm, and then 17 proximally. The troch nail was then passed and then a guide pin passed up into the neck. It required revision positioning to get into better anteversion once it was in excellent position. The guidepin was passed and seated and then the pin measured 95 mm and was appropriately drilled and then pounded into position with the helical system. Excellent fixation was obtained and the blade was locked. This wound was then irrigated copiously and then closed with #2 and #1 Vicryl, 2-0 plain and stainless steel clips. The wound was then appropriately dressed. Biplane image revealed the fracture to be aligned anatomically. The butterfly fragment was in excellent position. The trino was intact in all positionings and contained in bone. Distally it was then prepped and when perfect kw[place] was obtained 2 locking screws placed through a lateral incision. Blunt dissection down to the femur. Excellent fixation was obtained there. The wound was irrigated and closed with #1 Vicryl and stainless steel clips. Appropriate dressing applied. Estimated blood loss again was about 350 mL. SUMMARY OF IMPLANTS: 11 mm x 130 degree x 380 mm length troch nail, helical blade 11 mm x 95, locking screws distal 5 mm x 45 mm x 42. DVT prophylaxis will be per medicine. The patient has a lot of metabolic issues. I attest to the content of the Intraoperative Record and any orders documented therein. Any exceptions are noted below. MTDD
[2016-04-15 13:11] LABS: HEMATOCRIT 26.8 % (42-52)
[2016-04-15] MEDS ORDERED: POTASSIUM CHLORIDE INJ 10 MEQ in SODIUM CHLORIDE 0.9% 1000ML 1,000 ML IV SCH (13:18)
[2016-04-15] MEDS ORDERED: IV FLUIDS COMPLETED PRN (15:00)
[2016-04-15] MEDS: ACETAMINOPHEN IV 1,000 MG in EMPTY BAG 0 ML IV SCH ×3 (15:01→23:54)
[2016-04-15] MEDS ORDERED: COUGH DROP (SUGAR FREE) LOZ 24 LOZ/1 BOX ONE (15:15)
--- NOTE | 2016-04-15 15:22 | PROGRESS NOTE ---
DATE: 04/15/2016 SUBJECTIVE: Postop check status post ORIF by anirudh/subtrochanteric femur fracture. At this point in time, his blood pressure has been labile. He has been placed on a monitored bed. Has received 2 units of blood. He is alert and oriented. His vital signs are stable. He is making good urine. Neurovascular check both upper and lower extremities is at baseline. Wound dressing clean, dry and intact. Thigh is not with an expanding hematoma. Laboratory post-surgery was crit at 26.8. Received another unit of blood. ASSESSMENT: Overall, doing reasonably well. Complex medical patient. Will continue to observe and monitor per internal medicine. At this point in time, continue with standard postop femur fracture protocol which has been ordered. Follow daily.
[2016-04-15 15:28] LABS: BLOOD UREA NITROGEN 13 mg/dl (7-18); CALCIUM 6.8 mg/dl (8.5-10.1); CARBON DIOXIDE 22 mmol/L (21-32); CHLORIDE 106 mmol/L (98-107); GLUCOSE 121 mg/dl (70-99); POTASSIUM 4.5 mmol/L (3.5-5.1); SODIUM 138 mmol/L (136-145)
[2016-04-15] MEDS ORDERED: LORAZEPAM 2 MG/ML 1 ML VIAL IV PRN ×2 (15:30→19:45)
[2016-04-15] MEDS ORDERED: CHLORDIAZEPOXIDE 25 MG CAP PO PRN (15:30)
[2016-04-15] MEDS ORDERED: HYDROmorphone INJ 0.5 MG/0.5 ML SYR IV PRN (15:30)
--- NOTE | 2016-04-15 15:42 | Progress Note ---
Subjective Date of Service: Apr 15, 2016. Subjective Pt evaluation today including: conversation w/ patient, conversation w/ family , physical exam, lab review, review of studies, conversation w/ gift consultant, review of inpatient medication list Pain: severe right hip pain PO Intake: tolerating clears Voiding: marquez catheter in place patient seen twice today, once before surgery and again in the afternoon in the morning patient was in significant pain, BP was consistently low despite aggressive hydration, Cr was noted to be high at 1.7 ordered one unit of PRBC for hematoma and blood loss due to surgery in the OR he had approximately 1 liter of blood loss, successful open reduction and internal fixation with lock trochanteric nail in the PACU the patient was again hypotensive and tachycardic, ordered an additional 1 unit PRBC EKG checked that showed normal sinus with prior septal infarct, no new ischemia UO was suboptimal on the floor, again became hypotensive, ordered a 3rd unit of PRBC patient agitated and in pain, irritated that his was honest about how much he drinks every day discussed that we will need to keep a close eye on signs for alcohol withdrawal discussed details of fall with his , he fell and landed on concrete side walk on his right side and was immediately in excruciating pain Problem List Medical Problems: (1) DVT (deep venous thrombosis) Status: Acute (2) Fall Status: Acute (3) Gout Status: Acute (4) Hyponatremia Status: Acute (5) Multiple rib fractures Status: Acute (6) Syncope Status: Acute Review of Systems Constitutional: + fatigue, + weakness Respiratory: + cough Abdomen: + pain Musculoskeletal: + joint pain (right hip) Psychiatric: + problem reported (agitation), + substance abuse All Other Systems: Reviewed and Negative Medications Current Inpatient Medications Medications (Trade) Dose Ordered Sig/Feroz Route Start Time Stop Time Status Last Admin Dose Admin Acetaminophen (Tylenol Tab) 650 mg Q4H PRN PO 04/14/16 20:15 05/14/16 20:14 Future hold Zolpidem Tartrate (Ambien Tab) 5 mg HSZ PRN PO 04/14/16 20:15 05/14/16 20:14 Atorvastatin Calcium (Lipitor Tab) 40 mg QAM PO 04/15/16 09:00 05/15/16 08:59 Fluticasone Propionate (Flonase Nasal [place]) 2 sprays DAILY HOSSEIN 04/15/16 09:00 05/15/16 08:59 Folic Acid (Folvite Tab) 1 mg QAM PO 04/15/16 09:00 05/15/16 08:59 Metoprolol Succinate (Toprol Xl Tab) 25 mg BID PO 04/14/16 21:00 05/14/16 20:59 Future Hold Oxcarbazepine (Trileptal Tab) 300 mg BID PO 04/14/16 21:00 05/14/16 20:59 Pregabalin (Lyrica Cap) 75 mg BID PO 04/14/16 21:00 05/14/16 20:59 Thiamine HCl (Vitamin B-1 Tab) 100 mg BID PO 04/14/16 21:00 05/14/16 20:59 Venlafaxine HCl (effeXOR EXTENDED REL CAP) 150 mg QAM PO 04/15/16 09:00 05/15/16 08:59 Vitamin B Complex/ Vit C/Folic Acid (Nephrocaps) 1 cap QAM PO 04/15/16 09:00 05/15/16 08:59 Salmeterol Xinafoate/ Fluticasone 1 puff 1 puff BID INH 04/14/16 21:00 05/14/16 20:59 Multivitamins/ Thiamine HCl/ Folic Acid/Sodium Chloride (Mvi Infusion Inj/Vitamin B-1 Inj/Folvite Inj/ Nss 1000ml) 1,011.2 ml @ 100 mls/ hr DAILY IV 04/15/16 09:00 05/15/16 08:59 Ipratropium [place] (Atrovent 0.02% 0.5MG/2.5ML Neb) 0.5 mg Q2H PRN INH 04/14/16 21:30 05/14/16 21:29 Levalbuterol (Xopenex 1.25MG/ 0.5ML Neb) 1.25 mg Q2H PRN INH 04/14/16 21:30 05/14/16 21:29 Fentanyl Citrate (Fentanyl Inj) 25 mcg Q5M PRN IV 04/15/16 10:30 04/15/16 15:30 Hydromorphone HCl (Dilaudid Inj) 0.5 mg Q5M PRN IV 04/15/16 10:30 04/15/16 15:30 Ephedrine Sulfate (EpHEDrine SULFATE INJ) 5 mg Q5M PRN IV 04/15/16 10:30 04/15/16 15:30 Atropine Sulfate (Atropine Sulfate 0.1MG/Ml Inj) 0.5 mg Q1M PRN IV 04/15/16 10:30 04/15/16 15:30 Albuterol/ Ipratropium 3 ml 3 ml 1030 INH 04/15/16 10:30 04/15/16 15:30 Potassium Chloride/Sodium Chloride (KCl Inj/Nss 1000ml) 1,005 ml @ 100 mls/hr Q10H3M IV 04/15/16 13:18 05/15/16 12:46 Oxycodone/ Acetaminophen (Percocet 5-325MG Tab) 1-2 TABLETS 1 TABLET ... Q6H PRN PO 04/15/16 13:00 04/29/16 12:59 Future hold Morphine Sulfate 2 mg 2 mg Q1HWA PRN IV 04/15/16 13:00 04/29/16 12:59 04/15/16 14:57 2 MG Acetaminophen/ Empty Bag (Ofirmev Iv/ Empty Iv Bag 100ml) 100 ml @ 400 mls/hr Q8H IV 04/15/16 14:00 04/16/16 13:59 04/15/16 15:01 400 MLS/HR Magnesium Hydroxide (Milk Of Magnesia Susp) 30 ml Q6H PRN PO 04/15/16 13:00 05/15/16 12:59 Bisacodyl (Dulcolax Supp) 10 mg DAILY PRN ME 04/15/16 13:00 05/15/16 12:59 Sodium Biphosphate/ Sodium Phosphate (Fleet Enema) 132 ml DAILY PRN ME 04/15/16 13:00 05/15/16 12:59 Docusate Sodium (coLACE CAP) 100 mg BID PO 04/15/16 21:00 05/15/16 20:59 Diphenhydramine HCl (Benadryl Cap) 25 mg Q8H PRN PO 04/15/16 13:00 05/15/16 12:59 Al Hydrox/Mg Hydrox/Simethicone (Maalox Max Susp) 15 ml Q4H PRN PO 04/15/16 13:00 05/15/16 12:59 Multivitamins (Multivitamin Tab) 1 tab QAM PO 04/16/16 09:00 05/16/16 08:59 Ondansetron HCl (Zofran Inj) 4 mg Q6H PRN IV 04/15/16 13:00 05/15/16 12:59 Ferrous Gluconate (Ferrous Gluconate Tab) 324 mg TIDM PO 04/15/16 16:45 05/15/16 17:44 Pantoprazole Sodium 40 mg 40 mg QAM PO 04/16/16 09:00 05/16/16 08:59 Cefazolin Sodium/ Dextrose (Ancef Iv/D5 50ml) 60 ml @ 100 mls/hr Q8H IV 04/15/16 16:00 04/16/16 00:35 Miscellaneous (Iv Fluids Completed) 1 ea PRN PRN N/A 04/15/16 15:00 04/15/17 14:59 Objective Vital Signs Date Time Temp Pulse Resp B/P Pulse Ox O2 Delivery O2 Flow Rate FiO2 04/15/16 14:34 36.4 104 18 90/69 97 2.0 04/15/16 14:20 36.4 96 18 89/60 97 Nasal Cannula 2 04/15/16 14:10 96 18 83/56 97 Nasal Cannula 2 04/15/16 14:04 36.4 94 18 88/60 98 2.0 04/15/16 14:00 95 18 88/60 97 Nasal Cannula 2 04/15/16 13:50 96 16 88/62 98 Nasal Cannula 2 04/15/16 13:49 36.1 95 16 96/70 96 3.0 04/15/16 13:40 83 16 86/57 98 Nasal Cannula 2 04/15/16 13:30 89 16 97/70 98 Nasal Cannula 2 04/15/16 13:20 88 16 73/55 96 Nasal Cannula 2 04/15/16 13:10 88 18 91/54 98 Nasal Cannula 2 04/15/16 13:00 96 18 116/96 100 Mask 10 04/15/16 12:50 86 18 99/57 98 Mask 10 04/15/16 12:40 36.1 83 18 77/43 98 Mask 10 04/15/16 08:54 104 20 92 Nasal Cannula 2.0 04/15/16 07:43 36.8 101 18 80/59 92 Room Air 04/14/16 23:50 Room Air 04/14/16 23:50 36.9 98 16 97/62 91 Room Air 04/14/16 22:46 36.7 96 22 93/50 91 Room Air 04/14/16 22:20 84 135/121 04/14/16 22:09 93/67 04/14/16 22:01 105/68 04/14/16 21:50 99/68 04/14/16 21:45 36.7 94 22 71/55 95 Room Air 04/14/16 21:30 36.7 94 22 105/68 95 Room Air 04/14/16 20:49 90 18 112/77 94 Room Air 04/14/16 20:09 94 18 108/75 96 Room Air 04/14/16 18:26 37.1 84 18 145/97 98 Room Air 04/14/16 18:24 85 Physical Exam General Appearance: WD/WN, + mild distress Eyes: normal inspection, EOMI, sclerae normal ENT: + pertinent finding (poor dentition) Neck: supple, no adenopathy, no JVD, trachea midline Respiratory/Chest: chest non-tender, no respiratory distress, no accessory muscle use, + rhonchi (clear with cough) Cardiovascular: no edema, no gallop, no JVD, no murmur, + tachycardia Abdomen: normal bowel sounds, non tender, soft, no organomegaly Extremities: no pedal edema, no calf tenderness, normal capillary refill, pelvis stable, + pertinent finding (right leg tender, decreased ROM, bruising over right hip) 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, no motor/sensory deficits, alert, oriented x 3, + pertinent finding (agitated, anxious, mild tremors occasionally) Skin: + pertinent finding (right hip bruising) Laboratory Results Last 24 Hours Test 04/14/16 18:50 04/14/16 21:05 04/15/16 00:15 04/15/16 07:30 White Blood Count 8.12 K/uL 10.42 K/uL Red Blood Count 3.61 M/uL 2.94 M/uL Hemoglobin 11.9 g/dL 9.7 g/dL Hematocrit 35.4 % 28.9 % Mean Corpuscular Volume 98.1 fL 98.3 fL Mean Corpuscular Hemoglobin 33.0 pg 33.0 pg Mean Corpuscular Hemoglobin Concent 33.6 g/dl 33.6 g/dl Platelet Count 178 K/uL 157 K/uL Mean Platelet Volume 9.3 fL 9.1 fL Neutrophils (%) (Auto) 74.6 % 73.2 % Lymphocytes (%) (Auto) 17.2 % 15.3 % Monocytes (%) (Auto) 6.4 % 9.4 % Eosinophils (%) (Auto) 1.1 % 1.4 % Basophils (%) (Auto) 0.2 % 0.3 % Neutrophils # (Auto) 6.05 K/uL 7.63 K/uL Lymphocytes # (Auto) 1.40 K/uL 1.59 K/uL Monocytes # (Auto) 0.52 K/uL 0.98 K/uL Eosinophils # (Auto) 0.09 K/uL 0.15 K/uL Basophils # (Auto) 0.02 K/uL 0.03 K/uL RDW Standard Deviation 51.0 fL 50.6 fL RDW Coefficient of Variation 14.2 % 14.2 % Immature Granulocyte % (Auto) 0.5 % 0.4 % Immature Granulocyte # (Auto) 0.04 K/uL 0.04 K/uL Prothrombin Time 11.3 SECONDS Prothromb Time International Ratio 1.1 Activated Partial Thromboplast Time 26.6 SECONDS Partial Thromboplastin Ratio 1.0 Sodium Level 134 mmol/L 135 mmol/L Potassium Level 3.8 mmol/L 4.5 mmol/L Chloride Level 97 mmol/L 101 mmol/L Carbon Dioxide Level 25 mmol/L 25 mmol/L Anion Gap 12.0 mmol/L 9.0 mmol/L Blood Urea Nitrogen 9 mg/dl 15 mg/dl Creatinine 0.86 mg/dl 1.70 mg/dl Est Creatinine Clear Calc Drug Dose 94.3 ml/min 47.7 ml/min Estimated GFR () 107.0 48.7 Estimated GFR (Non- 92.3 42.0 BUN/Creatinine Ratio 10.2 8.6 Random Glucose 94 mg/dl 78 mg/dl Calcium Level 8.2 mg/dl 7.8 mg/dl 7.2 mg/dl Total Bilirubin 0.4 mg/dl Direct Bilirubin < 0.1 mg/dl Aspartate Amino Transf (AST/SGOT) 95 U/L Alanine Aminotransferase (ALT/SGPT) 66 U/L Alkaline Phosphatase 163 U/L Total Creatine Kinase 88 U/L Creatine Kinase MB 2.5 ng/ml Creatine Kinase MB Ratio 2.8 Troponin I < 0.015 ng/ml Total Protein 6.9 gm/dl Albumin 2.8 gm/dl Lipase 265 U/L Urine Color YELLOW Urine Appearance CLEAR Urine pH 5.0 Urine Specific [place] 1.011 Urine Protein NEG Urine Glucose (UA) NEG Urine Ketones NEG Urine Occult Blood NEG Urine Nitrite NEG Urine Bilirubin NEG Urine Urobilinogen NEG Urine Leukocyte Esterase NEG Magnesium Level 1.8 mg/dl Test 04/15/16 13:04 04/15/16 15:02 Hemoglobin 8.9 g/dL Hematocrit 26.8 % Assessment and Plan 65 yo male with history of alcohol abuse, HTN, smoking and anxiety/depression, presented to the ED with severe right hip pain after falling on concrete walkway. x-ray showed a right hip fracture - Right comminuted, distracted, angulated overriding subtrochanteric fracture: s /p ORIF with lock troch nail long on 04/[address] Szymanski pain control with Dilaudid 0.5mg and 1mg for severe pain, q4 IV fluids at 100cc/hr, follow UO activity level, DVT prophylaxis per orthopedics significant amount of blood loss, follow H/H - Hypotension: multifactorial but most likely from hemorrhagic shock, significant blood loss both with the fracture and then in the OR transfused two units and still hypotensive, will give a third unit now and follow BP and HR has received enough fluid at this point, continue maintenance at 100cc/hr EKG without ischemia or infarction, check troponin but may be up just due to demand ischemia - Acute renal failure: certainly due to blood loss, prerenal, Cr up to 1.7 today and low UO continue marquez and IV fluids, transfuse to correct hypotension and improve renal perfusion repeat BMP now and in the morning, electrolytes stable - Alcohol abuse: reports > 6 drinks per day, will give Ativan 1mg IV q4 PRN for agitation and withdrawals symptoms Librium also available PRN Banana bag, folate - Tobacco abuse: nebulizers PRN for dyspnea, nicotine patch - HTN: hold metoprolol given hypotension - Hyperlipidemia: Lipitor - GERD: Protonix - Anxiety/Depression: Effexor and Trileptal - Neuropathy: Lyrica 60 minutes of critical care time spent on this patient today critical due to hemorrhagic shock, acute renal failure, alcohol withdrawal
[2016-04-15] MEDS ORDERED: LORAZEPAM INJ 1 MG in SYRINGE 0.5 ML IV PRN (15:45)
[2016-04-15] MEDS: FERROUS GLUCONATE 324 MG TAB PO SCH (16:45)
--- NOTE | 2016-04-15 17:48 | Anesthesiology Progress Note ---
Anesthesia Post Op Note Date & Time Apr 15, 2016 at 13:26 Vital Signs Pain Intensity: 0 Vital Signs Past 12 Hours Date Time Temp Pulse Resp B/P Pulse Ox O2 Delivery O2 Flow Rate FiO2 04/15/16 13:20 88 16 73/55 96 Nasal Cannula 2 04/15/16 13:10 88 18 91/54 98 Nasal Cannula 2 04/15/16 13:00 96 18 116/96 100 Mask 10 04/15/16 12:50 86 18 99/57 98 Mask 10 04/15/16 12:40 36.1 83 18 77/43 98 Mask 10 04/15/16 08:54 104 20 92 Nasal Cannula 2.0 04/15/16 07:43 36.8 101 18 80/59 92 Room Air Notes Mental Status: alert / awake / arousable, participated in evaluation Pt Amnestic to Procedure: Yes Nausea / Vomiting: adequately controlled Pain: adequately controlled Airway Patency, RR, SpO2: stable & adequate BP & HR: stable & adequate Hydration State: stable & adequate Anesthetic Complications: no major complications apparent The patient is a 65 y/o male with a h/o HTN, DLD, COPD, + tob, alcohol abuse, GERD, seizure and DVT s/p R ORIF troch femur fracture. The patient was initially hypotensive with SBPs in the 80s-90s on the floor preoperatively. His Hgb this morning was down to 9.7. He was brought down to OR holding where another IV was started and he was given 1000cc IV fluid bolus which improved his SBP to the 90-low 100s. The patient was then taken to the OR and placed under GA. He was given 1 unit of PRBC at the start of the procedure. During the procedure his BPs remained in the 90s-100s/50-60s with frequent doses of phenylephrine. The patient was given a total o 2200 cc crystalloid intraoperatively which does not include the 1000cc IV crystalloid he received in holding prior to the procedure. His EBL was 200 and Urine output was 300. In recovery, the patient's BP was initially labile dropping to the 80s systolic HR 90s. A post op hemoglobin was 8.9. I spoke to Dr. Card who is following the patient on the floor and he came to the bedside to evaluate the patient. The patient was transfused another unit of PRBC. He started complaining of epigastric pain so a 12 lead EKG was done which showed NSR, old septal infarct with no ischemic changes. The patient does have GERD. Results were discussed with Dr. Card. He stated the patient could be transferred to telemetry for closer monitoring. The patient's BP prior to discharge from PACU was 94/63 HR 92.
[2016-04-15] MEDS ORDERED: NOREPINEPHRINE BIT INJ 8 MG in DEXTROSE 5% 500ML 500 ML IV PRN (18:07)
[2016-04-15] MEDS: CEFAZOLIN IV 2,000 MG in DEXTROSE 5% 50ML 50 ML IV SCH ×2 (18:13→20:14)
[2016-04-15] MEDS ORDERED: LORAZEPAM 2 MG/ML 1 ML VIAL IV SCH (19:45)
[2016-04-15 19:57] LABS: BUN/CREATININE RATIO 10.5 (10-20); CALCIUM 6.8 mg/dl (8.5-10.1); CREATININE 1.5 mg/dl (0.60-1.40); MAGNESIUM 1.5 mg/dl (1.8-2.4); POTASSIUM 4.8 mmol/L (3.5-5.1)
[2016-04-15 20:02] LABS: INR 1.1 (0.9-1.1); PARTIAL THROMBOPLASTIN RATIO 1.3; PROTHROMBIN TIME (PATIENT) 12.1 SECONDS (9.0-12.0)
[2016-04-15] MEDS: LORAZEPAM INJ 1 MG in SYRINGE 0.5 ML IV SCH ×2 (20:14→23:55)
[2016-04-15 20:17] LABS: PHOSPHORUS 3.1 mg/dl (2.5-4.9)
[2016-04-15] MEDS ORDERED: HYDROmorphone INJ 1 MG/ML SYR IV STA (20:30)
[2016-04-15] MEDS ORDERED: CALCIUM CHLORIDE 10% 10 ML SYR IV STA (20:43)
[2016-04-15 20:46] LABS: HEMATOCRIT 26.7 % (42-52)
[2016-04-15] MEDS ORDERED: LORAZEPAM 2 MG/ML 1 ML VIAL IV STA (20:54)
[2016-04-15] MEDS ORDERED: BEER 1 CAN PO STA ×2 (21:02)
[2016-04-15] MEDS: MAGNESIUM SULFATE 1GM / D5W 1 GM in PREMIXED IN D5W 100 ML IV SCH ×2 (21:06→22:51)
[2016-04-15] MEDS: SODIUM CHLORIDE 0.9% 1000ML 1,000 ML IV SCH (21:28)
--- NOTE | 2016-04-15 22:23 | PROGRESS NOTE ---
DATE: 04/15/2016 The patient is seen in evening rounds at this point in time, he is now in bed 102. His vital signs remain stable but blood pressure remains labile. pressures. He remains lucid, is breathing well. He is well oxygenated on 2 liters. T-max is 37.6. PHYSICAL EXAMINATION: Reveals perhaps some slight petechiae about the upper chest but I do not see anything on the eyes and there is nothing definitive. He is alert and oriented x3. He moves his upper and lower extremities well. The right thigh in particular does not have any increased tenseness to it from 4 hours before. The dressing is clean, dry and intact and there is no compartment problem in the thigh. ASSESSMENT: Overall, doing well at this point in time. Again as I discussed with Dr. Card earlier in the afternoon about 5:00 p.m. or so that this could be sequela of acute respiratory distress syndrome/fat emboli syndrome which would consume blood as well as platelets. I suggest that they check the platelets. I have advised this to the nursing staff that was in the room at that time and she states that he is getting a CBC in several hours, which would be soon enough. We will follow daily. WENDY
[2016-04-15] MEDS: DOCUSATE SODIUM 100 MG CAP PO SCH (22:51)
[2016-04-15] MEDS ORDERED: HYDROmorphone INJ 2 MG/ML SYR/VIAL IV PRN (23:30)
[2016-04-16] VITALS (39 sets, daily range): BP systolic 82–121; BP diastolic 52–90; PULSE 83–127; TEMP 36.5–36.9; O2SAT 88–97
--- NOTE | 2016-04-16 00:43 | CRITICAL CARE CONSULTATION ---
DATE OF CONSULTATION: 04/15/2016 CHIEF COMPLAINT: Low blood pressure. HISTORY OF PRESENT ILLNESS: The patient is a 65-year-old gentleman with a history of hypertension, alcohol abuse and neuropathy, who was dragging his [place] tree last evening when he fell backward onto his right side. He was seen in the Emergency Department and was found to have a comminuted, distracted, angulated and overriding fracture of the subtrochanteric right femur with overlying soft tissue hematoma. He was admitted to the hospital and the orthopedic service was consulted. He went to the operating room today for an ORIF and lock troch nail long repair of the fracture. He had been hypotensive with systolic blood pressures in the 80s-90s preoperatively while on the floor and his hemoglobin dropped from 11 down to 9.7. He was given a liter of fluid by anesthesia prior to his procedure and in the operating room he received 2.2 liters of crystalloid. Estimated blood loss was 200 mL and urine output was 300 mL. I should also note that his creatinine this morning was elevated compared to admission. The patient has now had 3 units of packed red blood cells and his pressure is still soft. I was called regarding his transfer to the intensive care unit for Levophed infusion. When I went to see him on the floor, a PICC line was being placed. He complains of right lower extremity pain and is somewhat agitated. He is a little bit difficult to get a history from and when I talked to his she reports that this is not his typical personality. He denies shortness of breath and chest pain. He is very talkative and is joking with all the staff. PAST MEDICAL HISTORY: Epidural abscess and osteomyelitis in 2014, status post spinal decompression at [facility] in 2014, alcohol abuse, chronic obstructive pulmonary disease, syncope, hypertension, neuropathy, lower extremity weakness, gout, colon polyps, diverticulosis, gastritis, DVT after PICC line insertion or attempted insertion and depression. PAST SURGICAL HISTORY: As listed above. ALLERGIES: No known drug allergies. PREHOSPITAL MEDICATIONS: Acetaminophen p.r.n., albuterol 1-2 puffs q. 4 hours p.r.n., atorvastatin 40 mg daily, Flonase nasal spray 50 mcg 1-2 sprays daily, Advair 45/21 one puff b.i.d., folic acid 1 mg daily, indomethacin 50 mg daily p.r.n. gout flare, lisinopril 10 mg daily, Toprol-XL 75 mg daily, Trileptal 300 mg b.i.d., Protonix 40 mg daily, Lyrica 75 mg b.i.d., thiamine 100 mg b.i.d., venlafaxine extended release 150 mg daily and Nephrocaps 1 cap daily. SOCIAL HISTORY: He is and is trying to get disability. Presently he is not working. He has smoked 1 pack of cigarettes per day for at least 15 years. He drinks alcohol daily, although his family is not sure how much. He smokes either in the basement or the garage and he also drinks there as he is not allowed to do so in the house. For that reason, they are unsure how much he drinks. He admits to a case of beer on the weekend as well as 2 beers in the morning and 2 beers at lunch. FAMILY HISTORY: Significant for heart disease. REVIEW OF SYSTEMS: He has unsteadiness and lower extremity weakness. He attributes frequent falls to that. Neuropathy of the lower extremities. He denies nausea, vomiting, fevers or chills. He has been seen in the Emergency Department for syncope several times over the past several years. Additional review of systems is negative, noncontributory or not able to be obtained because the patient will not give a straightforward answer. PHYSICAL EXAMINATION: GENERAL: This is a man, lying in bed, appearing uncomfortable and a bit anxious. VITAL SIGNS: Are as follows: Temperature 37.6, heart rate 101, respiratory rate 25, blood pressure 86/59 and oxygen saturation 96% on 2 liters nasal cannula. HEENT: Pupils are approximately 2-3 mm bilaterally. Oral mucosa is slightly dry. He has poor dentition. Posterior pharynx is clear. NECK: No adenopathy, veins are flat. LUNGS: Have decreased breath sounds throughout. No rales, rhonchi or wheezes. HEART: Tachycardic, regular. No murmurs. ABDOMEN: Soft, nondistended, nontender, active bowel sounds. EXTREMITIES: The right thigh is edematous and the skin is taut. There is a dressing over the lateral aspect of the hip and thigh with a large, dark colored op-site over top. There is some blood on the gauze underneath it. There is none leaking out onto the bed. Both feet are without edema and have 1+ dorsalis pedis pulses. His sensation is grossly intact over his feet and legs. Capillary refill is adequate. NEUROLOGIC: He is awake and very talkative. He is able to move all 4 extremities. He is oriented to person and place. He seems to have a little bit of trouble finding his words, but eventually does. He is somewhat hyperactive as well. LABORATORY DATA: Sodium 138, potassium 4.8, chloride 105, CO2 22, BUN 16, creatinine 1.5, blood sugar 139, calcium 6.8, magnesium 1.5, phosphorus 3.1. Total bilirubin 0.7. AST 69, ALT 37, CPK 1440. Troponin less than 0.01. Total protein 4.5, albumin 1.8. Hemoglobin and hematocrit pending. PT 12.1, PTT 32.6. INR 1.1. EKG shows sinus tachycardia with nonspecific ST-T wave changes. T waves are flattened throughout. RADIOGRAPHIC DATA: Has been reviewed. Chest x-ray from yesterday shows chronic interstitial thickening and no definite infiltrates. IMPRESSION AND PLAN: 1. Status post open reduction and internal fixation of the right femur, secondary to comminuted fracture after a fall - POD 0. 2. Hypotension, ongoing since last evening. I am sure he has bled into the thigh and the question is whether or not the bleeding is ongoing. He is status post 3 units of packed red blood cells and approximately 3-4 liters of IV fluids. His urinalysis is clean and he is not febrile. EKG without acute change. He has had anesthesia today and also has had a little bit of pain medication which could bring his blood pressure down. His liver function tests presently are not suggesting acute or chronic decompensation which could also affect his blood pressure. 3. Acute anemia of blood loss. 4. Alcohol abuse and likely on the cusp of alcohol withdrawal just over 24 hours into his hospitalization. 5. History of tobacco use. He has been offered a nicotine patch, but he says "they don't work." 6. History of hypertension. 7. History of chronic obstructive pulmonary disease. 8. History of epidural abscess and osteomyelitis. 9. Acute kidney injury likely secondary to hypoperfusion and hypovolemia. PLAN: NEUROLOGIC: Continue Dilaudid for pain. I have scheduled Ativan 1 mg IV q. 4 hours and he now has a p.r.n. order for Ativan 2 mg every 2 hours. Continue the banana bag. Continue the Lyrica and Trileptal for his neuropathy. Neurovascular checks to the lower extremities; be attentive to the possibility of compartment syndrome if he is bleeding into that leg. PULMONARY: Incentive spirometry will be ordered. He declines a nicotine patch. Continue bronchodilators as well as inhale steroids. CARDIOVASCULAR: Continue to follow CPKs and troponin. Titrate Levophed for a mean arterial pressure of 65. GASTROINTESTINAL: Allow a diet and provide GI prophylaxis. Follow up liver function tests in the morning. INFECTIOUS DISEASE: He is on postoperative antibiotics. Culture if he spikes a fever. Hold off on broadening his antibiotic coverage. RENAL: Avoid hypovolemia. Place an urometer on the [place]. The goal rate of urine output is 0.5 mL per kilogram per hour. HEMATOLOGY: Follow blood counts every 4 hours and watch for any signs of deterioration. Transfuse as needed. Presently, I think we need to hold the pharmacologic DVT prophylaxis until his blood counts are stable but should resume as soon as possible. I discussed his care in detail with his and granddaughter. Questions were answered and support was provided. Critical care time; 60 minutes. WENDY
[2016-04-16 00:56] LABS: HEMATOCRIT 24.9 % (42-52)
[2016-04-16 01:46] LABS: BASO % 0.1 %; BASO ABS # 0.01 K/uL (0-0.2); EOS % 0.1 %; IG% 0.2 %; LYMPH % 7.4 %; LYMPH ABS # 0.93 K/uL (1.2-3.4); MEAN CORPUSCULAR HEMOGLOBIN 31.5 pg (25-34); MEAN PLATELET VOLUME 9.4 fL (7.4-10.4); MONO % 9.4 %; NEUT % 82.8 %; PLATELET COUNT 139 K/uL (130-400); WHITE BLOOD COUNT 12.58 K/uL (4.8-10.8)
[2016-04-16 02:07] LABS: COMPLETE YES; POLYCHROMASIA 1+
[2016-04-16] MEDS: LORAZEPAM INJ 1 MG in SYRINGE 0.5 ML IV SCH ×5 (04:02→21:54)
[2016-04-16] MEDS: HYDROmorphone INJ 1 MG/ML SYR IV PRN ×4 (04:04→20:41)
[2016-04-16] MEDS: ACETAMINOPHEN IV 1,000 MG in EMPTY BAG 0 ML IV SCH (06:07)
[2016-04-16 06:12] LABS: BASO % 0.1 %; BASO ABS # 0.01 K/uL (0-0.2); EOS % 0.2 %; HEMATOCRIT 23.7 % (42-52); IG% 0.2 %; LYMPH % 10.2 %; LYMPH ABS # 1.33 K/uL (1.2-3.4); MEAN CELL VOLUME 94.4 fL (80-100); MEAN CORPUSCULAR HEMOGLOBIN 31.9 pg (25-34); MEAN CORPUSCULAR HGB CONC 33.8 g/dl (32-36); MEAN PLATELET VOLUME 9.7 fL (7.4-10.4); MONO % 10.6 %; NEUT % 78.7 %; PLATELET COUNT 135 K/uL (130-400); RED BLOOD COUNT 2.51 M/uL (4.7-6.1); WHITE BLOOD COUNT 13.07 K/uL (4.8-10.8)
[2016-04-16 06:18] LABS: MEAN CELL VOLUME 92.2 fL (80-100); MEAN CORPUSCULAR HGB CONC 33.7 g/dl (32-36)
[2016-04-16 06:58] LABS: BUN/CREATININE RATIO 13.5 (10-20); CALCIUM 6.9 mg/dl (8.5-10.1); POTASSIUM 4.2 mmol/L (3.5-5.1)
[2016-04-16 07:03] LABS: COMPLETE YES; POLYCHROMASIA 1+
[2016-04-16] MEDS: MULTI-VITAMIN INFUSION INJ 10 ML, THIAMINE HCL INJ 100 MG, FoLIC ACID INJ 1 MG in SODIU... IV SCH (07:40)
[2016-04-16] MEDS: SODIUM CHLORIDE 0.9% 1000ML 1,000 ML IV SCH (07:44)
[2016-04-16] MEDS: PREGABALIN 75 MG CAP PO SCH ×2 (07:45→20:41)
[2016-04-16] MEDS: DOCUSATE SODIUM 100 MG CAP PO SCH ×2 (07:47→20:43)
[2016-04-16] MEDS: FLUTICASONE/SALMETEROL 100/50 (ADVAIR) 14 PUFF/1 INHALER INH SCH ×2 (07:47→20:41)
[2016-04-16] MEDS: ATORVASTATIN 20 MG TAB PO SCH (07:47)
[2016-04-16] MEDS: THIAMINE HCL 100 MG TAB PO SCH ×2 (07:47→20:43)
[2016-04-16] MEDS: NEPHROCAPS PO SCH (07:48)
[2016-04-16] MEDS: PANTOprazole SOD 40 MG TAB PO SCH (07:48)
[2016-04-16] MEDS: OXCARBAZEPINE 150 MG TAB PO SCH ×2 (07:49→20:42)
[2016-04-16] MEDS: VENLAFAXINE HCL XR 75 MG CAPXR PO SCH (07:49)
[2016-04-16] MEDS: FLUTICASONE PROPIONATE NA SPR 16 GM BTL NAE SCH (07:50)
--- NOTE | 2016-04-16 08:15 | ORTHOPEDICS PROGRESS NOTE ---
DATE: 04/16/2016 Postop day #1 status post open reduction and internal fixation of complex anirudh/subtrochanteric femur fracture, right lower extremity. His course has been relatively eventful with him requiring some pressors for BP stability. He is also becoming more agitated secondary to likely alcohol withdrawal. He is much more shaky this morning. He is conversant. He answers questions appropriately, but has limited depth to his conversation. His vital signs are stable. His blood pressure is much better in the high teens. His pulse is stable in the 80 to high 90 range. His respiratory rate is below 20. His pulse ox is in the 90s on room air. Hematocrit this morning was 23.7. White count was 13.7. INR yesterday was 1.1. Electrolytes are good. Creatinine has dropped to 1, indicating hemodilution. ASSESSMENT: Overall, clinically is becoming more stable, although his alcohol symptoms are increasing. His wound is saturated, it is changed. There is no evidence of any compartment syndrome. There is no active evidence of any major active arterial bleeding. His neurovascular check remains normal. At this point in time, obviously placement will be necessary for him, although he is already stating he wants to go home today. This will require a fair amount of coaching and social services aide support. His family knows at this point that he needs extended care as well. Alcohol and tobacco issues have been addressed with all members present at multiple times by me. Will continue with orthopedic management daily. Medical support appreciated.
[2016-04-16] MEDS: MULTIVITAMIN TAB PO SCH (08:19)
[2016-04-16] MEDS: FERROUS GLUCONATE 324 MG TAB PO SCH ×3 (08:19→15:35)
[2016-04-16] MEDS ORDERED: CALCIUM GLUCONATE 10% 1,000 MG in SODIUM CHLORIDE 0.9% 50ML 50 ML IV STA (08:32)
[2016-04-16] MEDS: HYDROmorphone INJ 2 MG/ML SYR/VIAL IV PRN ×2 (09:56→10:29)
[2016-04-16] MEDS ORDERED: HYDROmorphone INJ 2 MG/ML SYR/VIAL IV STA (10:12)
[2016-04-16] MEDS ORDERED: DexMEDEtomidine IV DRIP IV STA (10:30)
[2016-04-16] MEDS ORDERED: DexMEDEtomidine HCL INJ 200 MCG in SODIUM CHLORIDE 0.9% 50ML 48 ML IV PRN (10:45)
[2016-04-16 11:57] LABS: HEMATOCRIT 22.9 % (42-52)
--- NOTE | 2016-04-16 12:10 | CRITICAL CARE PROGRESS NOTE ---
DATE: 04/16/2016 GENERAL INFORMATION: A 65-year-old gentleman with multiple medical problems such as alcohol abuse, chronic obstructive pulmonary disease, hypertension and neuropathy, who presented to the Emergency Department 2 days ago after a fall. He suffered a comminuted fracture to the right femur and underwent ORIF yesterday. Preoperatively and postoperatively, his blood pressures were ranging in the 80s-90s systolically, and his urine output had decreased. He was given at least 4 liters of fluid yesterday, as well as 3 units of packed red blood cells. He was transferred to the intensive care unit last evening secondary to ongoing hypotension and the concern that he may need some Levophed. He had a PICC line placed prior to his transfer and was indeed started on Levophed at 0.05 mcg per kilogram per minute. It has since been weaned off. He also had some mild agitation and there was concern for alcohol withdrawal syndrome. There were no acute events overnight and he has not received any more packed red blood cells as of this time. He complains of 8/10 hip pain and denies shortness of breath. He ate about half of his breakfast today and has not had a bowel movement since admission. According to his nurse, he is agitated. I also saw him talking to himself in the room. He was offered 1 can of beer last night and early this morning which he eventually finished over an hour and half, but he was not very happy about it. He is receiving scheduled Ativan and p.r.n. Dilaudid. He also has p.r.n. Ativan ordered. PHYSICAL EXAMINATION: VITAL SIGNS: Maximum temperature is 37.6, heart rate 88-123, respiratory rate 13-20, blood pressure 94-117/60-70s, oxygen saturation 95% on room air. 24-hour fluid balance positive 4.5 liters. NEUROLOGIC: He will awaken easily and is mildly agitated, but pleasantly so. He was trying to sit up and get out of bed not too long ago. He moves all 4 extremities. He is oriented to person and place. He is having some difficulty staying the words that he is trying to pronounce. He blames that on a dry mouth. LUNGS: Clear to auscultation bilaterally. No rales, rhonchi or wheezes. HEART: Tachycardic, regular, no murmurs. ABDOMEN: Soft, nondistended, nontender. EXTREMITIES: Show the right thigh to be larger than the left. There is gauze down the lateral aspect of the right leg reinforced with tape. No bleeding seen. Feet have 1+ edema and dorsalis pedis pulses are 1+ bilaterally. Capillary refill is less than 2 seconds. The feet are a little bit cool, but the same temperature. LABORATORIES: White blood cell count 13.07, hemoglobin 8, hematocrit 23.7, platelets 135. Sodium 139, potassium 4.2, chloride 109, CO2 of 22, BUN 14, creatinine 1, blood sugar 154, calcium 6.9. CPK 1054. Troponin less than 0.015. MEDICATIONS: Scheduled acetaminophen, Maalox, Lipitor, Dulcolax, Colace, Flonase, folic acid, Dilaudid, Xopenex, p.r.n., Ativan scheduled and p.r.n. Milk of Magnesia, multivitamin, Zofran, Trileptal, Protonix, Lyrica, Advair, Fleet enema, normal saline 100 mL per hour, thiamine, Effexor. There is no microbiology data or imaging from today. IMPRESSION: 1. Postoperative day 1 status post open reduction and internal fixation of the right femur secondary to comminuted fracture after fall. His pain is not well controlled unfortunately. I do not think he will be able to use patient-controlled analgesia appropriately due to his altered mental status from his alcohol withdrawal. 2. Hypotension, which may have been a combination of hypovolemia, anemia and anesthesia. This is improved and he is off Levophed. I do not think he is septic. 3. Alcohol withdrawal syndrome, now on scheduled and p.r.n. Ativan. He is getting multivitamin, thiamine and folate and I have ordered some beer for him. I have also asked his to bring in the type of beer that he likes. I suspect he may not want to drink it as he expressed concern over "people knowing" that he is getting beer in the hospital. 4. Acute anemia of blood loss. 5. History of chronic obstructive pulmonary disease and tobacco use. 6. History of hypertension. 7. History of epidural abscess and osteomyelitis in 2015. 8. Acute kidney injury, likely secondary to acute tubular necrosis, improved. 9. History of neuropathy PLAN: NEUROLOGIC: I have increased the frequency of p.r.n. Dilaudid and he had an extra 2 mg this morning. Continue scheduled and p.r.n. Ativan. If needed, I think we could use some Precedex, although I would like to avoid polypharmacy. Continue Lyrica and Trileptal for his neuropathy and continue neurovascular checks on the right lower extremity. He is receiving MVI, thiamine and folate. PULMONARY: Continue incentive spirometry, bronchodilators, as well as inhaled steroids. CARDIOVASCULAR: He is tachycardic, which is likely secondary to pain and alcohol withdrawal. Watch volume status and continue IV fluids for now. He is not taking much p.o. Hopefully his blood pressures will improve to the point where we can give him some Lopressor as well. Discontinue Levophed. He has a PICC that was placed 04/15/2016 prior to arrival in the ICU. RENAL: Avoid hypovolemia and follow urine output. Continue Farrell for now. GASTROINTESTINAL: Encourage diet and provide dietary supplements. Continue GI prophylaxis with Protonix. INFECTIOUS DISEASE: He is on postoperative antibiotics. I think his biggest risks from An Infectious Disease standpoint is aspiration if he is over-sedated. Keep head of bed at 30 degrees or as per the orthopedic instructions. HEMATOLOGY: I have ordered serial blood counts every 6 hours. I am sure he is somewhat diluted. I do not see any active signs of bleeding. Begin pharmacologic DVT prophylaxis this afternoon if he remains relatively stable from a hematology standpoint. Consult physical therapy and occupational therapy. Hopefully his pain will be better controlled and he will be able to participate more comfortably. I discussed his care with his over the phone this morning. Please call me with any questions or concerns. Critical care time 40 minutes. SHANNAND
--- NOTE | 2016-04-16 16:13 | PROGRESS NOTE ---
DATE: 04/16/2016 SUBJECTIVE: Afternoon rounds check ;at this point in time he is resting intermittently comfortably. He has maintained his blood pressure off of his IV pressors. He remains tachycardic and confused likely based on alcohol withdrawal. He is sedated with Ativan and pain medication p.r.n. Exam reveals vital signs are stable. He is afebrile. He is alert when asked to wake up. He can move all 4 extremities on command. His thigh circumference has not changed. His dressing is clean and dry. His neurovascular check of both lower extremities and upper extremities are baseline. ASSESSMENT: Continues to be relatively stable. At this point in time, medical management is at max with respect to his alcohol issues and will need to consider nutrition issues if he does not start eating in the next 24 hours. Deep venous thrombosis prophylaxis per medicine. Can start that tomorrow. WENDY
[2016-04-16] MEDS: SODIUM CHLORIDE 0.45% 1000ML 1,000 ML IV SCH (16:25)
[2016-04-16] MEDS ORDERED: BEER 1 CAN PO SCH ×2 (16:30)
--- NOTE | 2016-04-16 16:41 | Progress Note ---
Subjective Date of Service: Apr 16, 2016. Subjective Pt evaluation today including: conversation w/ patient, physical exam, lab review, review of studies, conversation w/ practice consultant, review of inpatient medication list Pain: right hip pain PO Intake: adequate Voiding: marquez catheter in place patient was off of pressor support this AM after being transferred down in the evening BP was stable during the day but then dropped in the afternoon, transfusing an additional unit discussed the case with ICU and orthopedic surgery no signs of active bleeding H/H drifting down further at 7.8, likely from equilibrating from blood loss patient drinking alcohol to prevent DT's, family brought in from home Problem List Medical Problems: (1) DVT (deep venous thrombosis) Status: Acute (2) Fall Status: Acute (3) Gout Status: Acute (4) Hyponatremia Status: Acute (5) Multiple rib fractures Status: Acute (6) Syncope Status: Acute Review of Systems Constitutional: + fatigue, + weakness Musculoskeletal: + joint pain (right hip) All Other Systems: Reviewed and Negative Medications Current Inpatient Medications Medications (Trade) Dose Ordered Sig/Feroz Route Start Time Stop Time Status Last Admin Dose Admin Atorvastatin Calcium (Lipitor Tab) 40 mg QAM PO 04/15/16 09:00 05/15/16 08:59 04/16/16 07:47 40 MG Fluticasone Propionate (Flonase Nasal [place]) 2 sprays DAILY HOSSEIN 04/15/16 09:00 05/15/16 08:59 04/16/16 07:50 2 SPRAYS Folic Acid (Folvite Tab) 1 mg QAM PO 04/15/16 09:00 05/15/16 08:59 04/16/16 07:46 1 MG Oxcarbazepine (Trileptal Tab) 300 mg BID PO 04/14/16 21:00 05/14/16 20:59 04/16/16 07:49 300 MG Pregabalin (Lyrica Cap) 75 mg BID PO 04/14/16 21:00 05/14/16 20:59 04/16/16 07:45 75 MG Thiamine HCl (Vitamin B-1 Tab) 100 mg BID PO 04/14/16 21:00 05/14/16 20:59 04/16/16 07:47 100 MG Venlafaxine HCl (effeXOR EXTENDED REL CAP) 150 mg QAM PO 04/15/16 09:00 05/15/16 08:59 04/16/16 07:49 150 MG Salmeterol Xinafoate/ Fluticasone (Advair Diskus 100/50 Inh) 1 puff BID INH 04/14/16 21:00 05/14/16 20:59 04/16/16 07:47 1 PUFF Levalbuterol (Xopenex 1.25MG/ 0.5ML Neb) 1.25 mg Q2H PRN INH 04/14/16 21:30 05/14/16 21:29 Magnesium Hydroxide (Milk Of Magnesia Susp) 30 ml Q6H PRN PO 04/15/16 13:00 05/15/16 12:59 Bisacodyl (Dulcolax Supp) 10 mg DAILY PRN MT 04/15/16 13:00 05/15/16 12:59 Sodium Biphosphate/ Sodium Phosphate (Fleet Enema) 132 ml DAILY PRN MT 04/15/16 13:00 05/15/16 12:59 Docusate Sodium (coLACE CAP) 100 mg BID PO 04/15/16 21:00 05/15/16 20:59 04/16/16 07:47 100 MG Al Hydrox/Mg Hydrox/Simethicone (Maalox Max Susp) 15 ml Q4H PRN PO 04/15/16 13:00 05/15/16 12:59 Multivitamins (Multivitamin Tab) 1 tab QAM PO 04/16/16 09:00 05/16/16 08:59 04/16/16 08:19 1 TAB Ondansetron HCl (Zofran Inj) 4 mg Q6H PRN IV 04/15/16 13:00 05/15/16 12:59 Ferrous Gluconate (Ferrous Gluconate Tab) 324 mg TIDM PO 04/15/16 16:45 05/15/16 17:44 04/16/16 15:35 324 MG Pantoprazole Sodium (Protonix Tab) 40 mg QAM PO 04/16/16 09:00 05/16/16 08:59 04/16/16 07:48 40 MG Miscellaneous 1 ea 1 ea PRN PRN N/A 04/15/16 15:00 04/15/17 14:59 Norepinephrine Bitartrate/ Dextrose (Levophed Inj/ D5W 500ml) 508 ml @ 0 mls/hr Q0M PRN IV 04/15/16 18:07 05/15/16 18:06 04/15/16 18:42 17.6 MLS/HR Lorazepam 2 mg 2 mg Q2H PRN IV 04/15/16 19:45 05/15/16 19:44 Lorazepam/Syringe (Ativan Inj/ Syringe) 1 ml @ 1 mls/min Q4H IV 04/15/16 20:00 05/15/16 19:59 04/16/16 15:34 1 MLS/MIN Hydromorphone HCl (Dilaudid Inj) 2 mg Q2H PRN IV 04/16/16 09:30 04/30/16 09:29 04/16/16 10:29 2 MG Hydromorphone HCl (Dilaudid Inj) 1 mg Q2H PRN IV 04/16/16 09:30 04/30/16 09:29 Non-Formulary Medication 2 can 2 can BIDM PO 04/16/16 16:30 05/16/16 16:29 Dexmedetomidine HCl 200 mcg/ Sodium Chloride 50 ml @ 0 mls/hr Q0M PRN IV 04/16/16 10:45 04/20/16 10:44 Sodium Chloride (1/2 Nss 1000ml) 1,000 ml @ 100 mls/hr Q10H IV 04/16/16 16:15 05/16/16 16:14 04/16/16 16:25 100 MLS/HR Objective Vital Signs Date Time Temp Pulse Resp B/P Pulse Ox O2 Delivery O2 Flow Rate FiO2 04/16/16 16:15 36.7 117 14 82/64 92 04/16/16 15:45 36.7 122 16 95/72 93 04/16/16 15:30 36.8 127 20 89/71 91 04/16/16 13:58 108 18 83/57 93 Room Air 04/16/16 13:13 112 14 92/60 92 Room Air 04/16/16 12:58 108 14 85/52 92 Room Air 04/16/16 12:28 36.5 110 16 90/59 93 Room Air 04/16/16 12:21 116 15 107/65 91 Room Air 04/16/16 12:18 114 21 84/57 91 Room Air 04/16/16 12:00 Room Air 04/16/16 11:16 110 17 96/60 90 Room Air 04/16/16 10:35 120 20 100/65 92 Room Air 04/16/16 10:03 109 14 121/67 95 Room Air 04/16/16 09:29 116 24 104/62 96 Room Air 04/16/16 08:59 111 16 101/62 97 Room Air 04/16/16 08:34 115 18 106/85 95 Room Air 04/16/16 08:00 Room Air 04/16/16 07:58 36.5 126 17 113/79 95 Room Air 04/16/16 06:58 92 19 117/73 95 Room Air 04/16/16 05:58 36.7 98 20 117/74 95 Room Air 04/16/16 04:19 95 Room Air 04/16/16 03:58 83 13 94/59 94 Room Air 04/16/16 02:59 100 18 91/61 94 Room Air 04/16/16 01:58 88 15 95/60 94 Room Air 04/16/16 00:58 93 17 89/61 95 Room Air 04/16/16 00:08 95 Room Air 04/15/16 23:59 37.0 99 13 100/57 94 Room Air 04/15/16 22:58 99 13 99/59 94 Room Air 04/15/16 21:58 106 14 96/56 94 Room Air 04/15/16 20:58 112 14 93/57 93 Room Air 04/15/16 20:35 95 Room Air 04/15/16 19:58 37.0 107 23 96/72 97 Room Air 04/15/16 19:29 113 19 106/66 96 Room Air 04/15/16 17:25 132 25 86/59 96 Nasal Cannula 2.0 04/15/16 16:45 109 19 92/55 96 Nasal Cannula 2.0 Physical Exam General Appearance: WD/WN, no apparent distress Eyes: normal inspection, EOMI, sclerae normal ENT: normal ENT inspection, hearing grossly normal, pharynx normal Neck: supple, no adenopathy, no JVD, trachea midline Respiratory/Chest: chest non-tender, lungs clear, normal breath sounds, no respiratory distress, no accessory muscle use Cardiovascular: regular rate, rhythm, no edema, no gallop, no JVD, no murmur Abdomen: normal bowel sounds, non tender, soft, no organomegaly Extremities: no calf tenderness, normal capillary refill, pelvis stable, + pedal edema Neurologic/Psychiatric: engraver II-XII nml as tested, + motor weakness, + pertinent finding (agitated, mild tremors, very angry with staff and family) Skin: warm/dry, no rash, + pertinent finding (right hip bruising, excessive) Lymphatic: no adenopathy Laboratory Results Last 24 Hours Test 04/15/16 19:29 04/16/16 05:16 04/16/16 11:50 Hemoglobin 9.1 g/dL 8.0 g/dL 7.8 g/dL Hematocrit 26.7 % 23.7 % 22.9 % Prothrombin Time 12.1 SECONDS Prothromb Time International Ratio 1.1 Activated Partial Thromboplast Time 32.6 SECONDS Partial Thromboplastin Ratio 1.3 Sodium Level 138 mmol/L 139 mmol/L Potassium Level 4.8 mmol/L 4.2 mmol/L Chloride Level 105 mmol/L 109 mmol/L Carbon Dioxide Level 22 mmol/L 22 mmol/L Anion Gap 11.0 mmol/L 8.0 mmol/L Blood Urea Nitrogen 16 mg/dl 14 mg/dl Creatinine 1.50 mg/dl 1.00 mg/dl Est Creatinine Clear Calc Drug Dose 54.1 ml/min 83.7 ml/min Estimated GFR () 56.6 92.4 Estimated GFR (Non- 48.8 79.7 BUN/Creatinine Ratio 10.5 13.5 Random Glucose 139 mg/dl 154 mg/dl Calcium Level 6.8 mg/dl 6.9 mg/dl Phosphorus Level 3.1 mg/dl Magnesium Level 1.5 mg/dl 2.0 mg/dl Total Bilirubin 0.7 mg/dl Direct Bilirubin 0.3 mg/dl Aspartate Amino Transf (AST/SGOT) 69 U/L Alanine Aminotransferase (ALT/SGPT) 37 U/L Alkaline Phosphatase 84 U/L Total Creatine Kinase 1440 U/L 1054 U/L Total Protein 4.5 gm/dl Albumin 1.8 gm/dl White Blood Count 13.07 K/uL Red Blood Count 2.51 M/uL Mean Corpuscular Volume 94.4 fL Mean Corpuscular Hemoglobin 31.9 pg Mean Corpuscular Hemoglobin Concent 33.8 g/dl Platelet Count 135 K/uL Mean Platelet Volume 9.7 fL Neutrophils (%) (Auto) 78.7 % Lymphocytes (%) (Auto) 10.2 % Monocytes (%) (Auto) 10.6 % Eosinophils (%) (Auto) 0.2 % Basophils (%) (Auto) 0.1 % Neutrophils # (Auto) 10.29 K/uL Lymphocytes # (Auto) 1.33 K/uL Monocytes # (Auto) 1.39 K/uL Eosinophils # (Auto) 0.02 K/uL Basophils # (Auto) 0.01 K/uL RDW Standard Deviation 58.1 fL RDW Coefficient of Variation 17.0 % Immature Granulocyte % (Auto) 0.2 % Immature Granulocyte # (Auto) 0.03 K/uL Polychromasia 1+ Troponin I < 0.015 ng/ml 0.036 ng/ml Assessment and Plan 65 yo male with history of alcohol abuse, HTN, smoking and anxiety/depression, presented to the ED with severe right hip pain after falling on concrete walkway. x-ray showed a right hip fracture - Right comminuted, distracted, angulated overriding subtrochanteric fracture: s /p ORIF with lock troch nail long on 04/[address] Szymanski, POD #1 pain control with Dilaudid 0.5mg and 1mg for severe pain, q4 activity level, DVT prophylaxis per orthopedics significant amount of blood loss, most recent H/H 7.8 - Hypotension: multifactorial but most likely from hemorrhagic shock, significant blood loss both with the fracture and then in the OR transfused three units and was on Levophed over night, BP was stable, now hypotensive again, transfusing 4th unit today has received enough fluid at this point EKG without ischemia or infarction, normal troponin UO greatly improved suggesting better perfusion, mental status clear - Acute renal failure: certainly due to blood loss, prerenal, Cr up to 1.7 yesterday and low UO continue marquez and IV fluids, Cr normal today, adequate UO - Alcohol abuse: reports > 6 drinks per day, will give Ativan 1mg IV q4 PRN for agitation and withdrawals symptoms family to bring in beer from home that he can drink, prevent DT's which would only make recovery more difficult Banana bag, folate - Tobacco abuse: nebulizers PRN for dyspnea, nicotine patch - HTN: hold metoprolol given hypotension - Hyperlipidemia: Lipitor - GERD: Protonix - Anxiety/Depression: Effexor and Trileptal - Neuropathy: Lyrica Plan: keep in ICU since BP dropped again, transfuse additional unit PRBC, beer to prevent DT, Ativan available
[2016-04-16] MEDS ORDERED: LORAZEPAM 2 MG/ML 1 ML VIAL IV PRN ×2 (18:00→19:45)
[2016-04-16 18:15] LABS: HEMATOCRIT 25.3 % (42-52)
[2016-04-16] MEDS ORDERED: LORAZEPAM INJ 1 MG in SYRINGE 0.5 ML IV PRN (19:00)
[2016-04-16] MEDS ORDERED: LORAZEPAM INJ 2 MG in SYRINGE 1 ML IV PRN (19:00)
[2016-04-16 23:25] LABS: HEMATOCRIT 24.3 % (42-52)
[2016-04-17] VITALS (67 sets, daily range): BP systolic 62–132; BP diastolic 40–87; PULSE 96–136; TEMP 36.6–37.6; O2SAT 89–94
[2016-04-17] MEDS: HYDROmorphone INJ 1 MG/ML SYR IV PRN ×3 (01:14→21:55)
[2016-04-17] MEDS: SODIUM CHLORIDE 0.45% 1000ML 1,000 ML IV SCH (03:28)
[2016-04-17] MEDS: HYDROmorphone INJ 2 MG/ML SYR/VIAL IV PRN (03:34)
[2016-04-17] MEDS: LORAZEPAM INJ 1 MG in SYRINGE 0.5 ML IV SCH ×3 (04:00→16:25)
[2016-04-17 05:40] LABS: BASO % 0.3 %; BASO ABS # 0.03 K/uL (0-0.2); EOS % 2.2 %; HEMATOCRIT 23.7 % (42-52); IG% 0.4 %; LYMPH ABS # 1.23 K/uL (1.2-3.4); MEAN CELL VOLUME 95.2 fL (80-100); MEAN CORPUSCULAR HEMOGLOBIN 31.7 pg (25-34); MEAN CORPUSCULAR HGB CONC 33.3 g/dl (32-36); MEAN PLATELET VOLUME 9.3 fL (7.4-10.4); MONO % 9.1 %; PLATELET COUNT 121 K/uL (130-400); RED BLOOD COUNT 2.49 M/uL (4.7-6.1); WHITE BLOOD COUNT 10.29 K/uL (4.8-10.8)
[2016-04-17 06:06] LABS: COMPLETE YES; POLYCHROMASIA 1+
[2016-04-17 06:07] LABS: BUN/CREATININE RATIO 14.8 (10-20); CALCIUM 7.5 mg/dl (8.5-10.1); MAGNESIUM 2.1 mg/dl (1.8-2.4); POTASSIUM 4.4 mmol/L (3.5-5.1)
[2016-04-17 06:10] LABS: PHOSPHORUS 2.9 mg/dl (2.5-4.9)
[2016-04-17] MEDS: FERROUS GLUCONATE 324 MG TAB PO SCH ×3 (07:27→16:25)
[2016-04-17] MEDS: FLUTICASONE PROPIONATE NA SPR 16 GM BTL NAE SCH (07:28)
[2016-04-17] MEDS: DOCUSATE SODIUM 100 MG CAP PO SCH ×2 (07:28→21:40)
[2016-04-17] MEDS: FLUTICASONE/SALMETEROL 100/50 (ADVAIR) 14 PUFF/1 INHALER INH SCH ×2 (07:28→21:40)
[2016-04-17] MEDS: ATORVASTATIN 20 MG TAB PO SCH (07:29)
[2016-04-17] MEDS: THIAMINE HCL 100 MG TAB PO SCH ×2 (07:29→21:40)
[2016-04-17] MEDS: VENLAFAXINE HCL XR 75 MG CAPXR PO SCH (07:29)
[2016-04-17] MEDS: PANTOprazole SOD 40 MG TAB PO SCH (07:30)
[2016-04-17] MEDS: OXCARBAZEPINE 150 MG TAB PO SCH ×2 (07:30→21:40)
[2016-04-17] MEDS: MULTIVITAMIN TAB PO SCH (07:30)
[2016-04-17] MEDS: PREGABALIN 75 MG CAP PO SCH ×2 (07:33→21:40)
--- NOTE | 2016-04-17 07:53 | PROGRESS NOTE ---
DATE: 04/17/2016 SUBJECTIVE: At this point in time the patient is significantly agitated from time to time having conversations with others in the room not even present. When confronted, he actually calms down and answers questions relatively appropriately, but is very superficial conversations. He is talking about going out with his friends. At this point, his vital signs are stable. Still with some labile hypotension. He still is tachycardic. Respiratory rate averages in the high teens to low 20s, gets up in the 40s when he is agitated. Maintains good oxygenation. Thigh wound dressing is clean, dry and intact. Thigh girth and tenseness has not increased. It is actually a little bit softer today. He is getting some scrotal ecchymosis as well. This is all consistent with his fracture and old bleeding from the fracture. He maintains good neurovascular check to both lower extremities and both upper extremities. His neurologic exam is nonfocal. Hematocrit after 1 unit yesterday, has maintained itself in the high 23 range. ASSESSMENT: From an orthopedic perspective okay to try to mobilize to a chair if that is tolerable from a medical perspective, touchdown weightbearing only right lower extremity. Keep dressing in place. Supportive care to the maximum with respect to his alcohol withdrawal. Consider getting a chest x-ray today to look for any signs of acute respiratory distress syndrome/fat embolism. Continue max support. Appreciate medical support. We will follow daily. WENDY
[2016-04-17] MEDS ORDERED: METOPROLOL SUCC 25MG EXT REL TAB PO ONE (08:37)
[2016-04-17] MEDS: METOPROLOL SUCC 25MG EXT REL TAB PO SCH (09:00)
[2016-04-17] MEDS ORDERED: GLYCOPYRROLATE INJ 0.2 MG/ML VIAL IV ONE (10:15)
[2016-04-17] MEDS: ENOXAPARIN 30 MG/0.3 ML SYR SQ SCH ×2 (12:05→21:41)
--- NOTE | 2016-04-17 14:18 | Progress Note ---
Subjective Date of Service: Apr 17, 2016. Subjective Pt evaluation today including: conversation w/ patient, conversation w/ family , physical exam, chart review, lab review, review of studies, conversation w/ mortgage consultant, review of inpatient medication list Has been intermittently confused, was yelling people, heart rate was up to 120- 130s, anxiety Got 2 mg of Ativan per [facility] protocol before I saw him No acute distress but confused in the talking, Problem List Medical Problems: (1) DVT (deep venous thrombosis) Status: Acute (2) Fall Status: Acute (3) Gout Status: Acute (4) Hyponatremia Status: Acute (5) Multiple rib fractures Status: Acute (6) Syncope Status: Acute Review of Systems Constitutional: + problem reported (possible not reliable because confused), No chills, No fever Eyes: No eye pain Respiratory: No cough, No dyspnea at rest, No dyspnea on exertion, No hemoptysis, No problem reported, No see HPI, No shortness of breath, No sputum, No wheezing Cardiac: No chest pain, No orthopnea Musculoskeletal: + joint pain Neurologic: + memory loss Endo: + fatigue Objective Vital Signs Date Time Temp Pulse Resp B/P Pulse Ox O2 Delivery O2 Flow Rate FiO2 04/17/16 12:00 93 Room Air 04/17/16 10:45 105 40 93 04/17/16 10:43 106 34 81/55 92 04/17/16 10:30 108 30 92 04/17/16 10:28 104 32 95/56 93 04/17/16 10:15 105 32 93 04/17/16 10:13 96 40 86/51 93 04/17/16 10:00 105 25 92 04/17/16 09:58 105 34 80/52 92 04/17/16 09:48 107 25 88/53 92 04/17/16 09:45 110 28 92 04/17/16 09:28 110 20 70/48 92 Room Air 04/17/16 09:23 111 34 70/45 91 04/17/16 09:18 111 21 65/41 93 04/17/16 09:15 111 22 93 04/17/16 09:13 113 24 65/44 93 04/17/16 09:08 113 27 63/40 93 04/17/16 09:05 112 32 69/46 92 04/17/16 09:03 114 23 62/47 93 04/17/16 09:00 116 29 93 04/17/16 08:58 116 24 76/45 93 Room Air 04/17/16 08:45 118 22 93 04/17/16 08:30 125 26 92 04/17/16 08:15 126 16 92 04/17/16 08:00 Room Air 04/17/16 08:00 129 19 92 04/17/16 07:59 37.6 132 25 104/82 92 Room Air 04/17/16 07:45 92 Room Air 04/17/16 07:45 136 19 91 04/17/16 07:30 126 31 90 04/17/16 07:15 135 20 92 04/17/16 07:00 124 16 92 04/17/16 06:00 126 44 91 04/17/16 05:00 120 20 90 04/17/16 04:58 120 18 88/69 89 Room Air 04/17/16 04:19 93 Room Air 04/17/16 03:58 120 22 111/58 90 Room Air 04/17/16 02:58 113 20 103/71 91 Room Air 04/17/16 01:58 115 18 111/66 89 Room Air 04/17/16 00:15 93 Room Air 04/16/16 23:58 36.5 115 17 117/90 88 Room Air 04/16/16 23:28 111 15 101/64 90 Room Air 04/16/16 22:58 112 15 111/67 90 Room Air 04/16/16 22:28 115 16 89/56 92 Room Air 04/16/16 21:58 36.5 119 15 109/63 91 Room Air 04/16/16 21:28 120 24 90/61 93 Room Air 04/16/16 20:58 124 41 111/69 94 Room Air 04/16/16 20:29 114 23 91/65 94 Room Air 04/16/16 20:27 93 Room Air 04/16/16 19:58 36.5 112 18 117/76 93 Room Air 04/16/16 19:28 109 20 98/61 93 Room Air 04/16/16 18:00 120 25 119/83 96 Room Air 04/16/16 17:30 36.8 116 17 90/71 95 04/16/16 17:00 36.9 117 16 107/76 95 04/16/16 16:15 36.7 117 14 82/64 92 04/16/16 16:00 Room Air 04/16/16 16:00 36.7 117 14 82/64 92 Room Air 04/16/16 15:45 36.7 122 16 95/72 93 04/16/16 15:30 36.8 127 20 89/71 91 Physical Exam General Appearance: no apparent distress, + pertinent finding (confused) Eyes: normal inspection, PERRL ENT: normal ENT inspection, hearing grossly normal Neck: supple, no adenopathy Respiratory/Chest: normal breath sounds, no respiratory distress, no accessory muscle use, + decreased breath sounds Cardiovascular: regular rate, rhythm, no edema, no gallop Abdomen: normal bowel sounds, non tender, soft, no organomegaly Extremities: normal inspection, no pedal edema, no calf tenderness, + swelling (bilateral lower extremity) 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, alert Skin: normal color, + pertinent finding (right lateral hip has dress post op hip surgery) Laboratory Results Last 24 Hours Test 04/16/16 18:03 04/16/16 23:07 04/17/16 04:50 04/17/16 14:00 Hemoglobin 8.6 g/dL 8.2 g/dL 7.9 g/dL Hematocrit 25.3 % 24.3 % 23.7 % White Blood Count 10.29 K/uL Red Blood Count 2.49 M/uL Mean Corpuscular Volume 95.2 fL Mean Corpuscular Hemoglobin 31.7 pg Mean Corpuscular Hemoglobin Concent 33.3 g/dl Platelet Count 121 K/uL Mean Platelet Volume 9.3 fL Neutrophils (%) (Auto) 76.0 % Lymphocytes (%) (Auto) 12.0 % Monocytes (%) (Auto) 9.1 % Eosinophils (%) (Auto) 2.2 % Basophils (%) (Auto) 0.3 % Neutrophils # (Auto) 7.82 K/uL Lymphocytes # (Auto) 1.23 K/uL Monocytes # (Auto) 0.94 K/uL Eosinophils # (Auto) 0.23 K/uL Basophils # (Auto) 0.03 K/uL RDW Standard Deviation 55.5 fL RDW Coefficient of Variation 16.1 % Immature Granulocyte % (Auto) 0.4 % Immature Granulocyte # (Auto) 0.04 K/uL Polychromasia 1+ Sodium Level 138 mmol/L Potassium Level 4.4 mmol/L Chloride Level 107 mmol/L Carbon Dioxide Level 23 mmol/L Anion Gap 8.0 mmol/L Blood Urea Nitrogen 15 mg/dl Creatinine 1.00 mg/dl Est Creatinine Clear Calc Drug Dose 83.7 ml/min Estimated GFR () 92.4 Estimated GFR (Non- 79.7 BUN/Creatinine Ratio 14.8 Random Glucose 77 mg/dl Calcium Level 7.5 mg/dl Phosphorus Level 2.9 mg/dl Magnesium Level 2.1 mg/dl Total Creatine Kinase 543 U/L Assessment and Plan 65 yo male with history of alcohol abuse, HTN, smoking and anxiety/depression, admitted on 04/15/2016 because of severe right hip pain after falling on concrete walkway. x-ray showed a right hip fracture - Right comminuted, distracted, angulated overriding subtrochanteric fracture: s /p ORIF with lock troch nail long on 04/[address] Szymanski, POD #2 pain control , activity level, DVT prophylaxis per orthopedics significant amount of blood loss, most recent H/H 7.8 - Was Hypotension: multifactorial but most likely from hemorrhagic shock, significant blood loss both with the fracture and then in the OR, resolved Blood transfusion totally 4 unit has received enough fluid at this point EKG without ischemia or infarction, normal troponin UO fair - Acute blood loss anemia from surgery and hip fracture, see above - Acute renal failure: certainly due to hypovol and blood loss, prerenal, Cr is better today compared to yesterday - Alcohol abuse: reports > 6 drinks per day, continue CIWA protocol Banana bag, folate - Tobacco abuse: nebulizers PRN for dyspnea, nicotine patch - HTN: Continue follow-up - Hyperlipidemia: Lipitor - GERD: Protonix - Anxiety/Depression: Effexor and Trileptal - Neuropathy: Lyrica - Malnutrition with low pre-albumin, will continue watch dietitian consult if needed discussed with nurse, group fitness manager, and patient's Continued [facility] stay due to: multiple IV medications needed Discharge planning: rehab hospital
--- NOTE | 2016-04-17 21:34 | Critical Care Progress Note ---
Critical Care Progress Note Date of Service Apr 17, 2016. Attending Dr. Andrews Subjective Patiently actively hallucinating, responding to internal stimuli. Objective Neuro: Mild agitation, responding to internal stimuli. Knows he is in the hospital and knows person. Lungs: Clear to auscultation bilaterally Heart: Tachycardia, S1-S2 Abdomen: Soft nondistended nontender Extremities: 2+ pulses Assessment & Plan IMPRESSION: 1. Postoperative day 2 status post open reduction and internal fixation of the right femur secondary to comminuted fracture after fall. I do not think he will be able to use patient-controlled analgesia appropriately due to his altered mental status from his alcohol withdrawal. 2. Hypotension, which may have been a combination of hypovolemia, anemia and anesthesia. This is improved and he is off Levophed. I do not think he is septic. 3. Alcohol withdrawal syndrome, now on scheduled and p.r.n. Ativan. He is getting multivitamin, thiamine and folate. 4. Acute anemia of blood loss. 5. History of chronic obstructive pulmonary disease and tobacco use. 6. History of hypertension. 7. History of epidural abscess and osteomyelitis in 2014. 8. Acute kidney injury, likely secondary to acute tubular necrosis, improved. 9. History of neuropathy PLAN: NEUROLOGIC: Precedex infusion was started, patient became mildly bradycardic and hypotensive, and infusion was stopped. Since that time the patient has been much less agitated and redirectable. Scheduled taper the Ativan as currently ordered Continue Lyrica and Trileptal for his neuropathy and continue neurovascular checks on the right lower extremity. He is receiving MVI , thiamine and folate. PULMONARY: Continue incentive spirometry, bronchodilators, as well as inhaled steroids. CARDIOVASCULAR: Patient was on home dose of 75 mg of metoprolol XL, restarted with 25 today RENAL: Avoid hypovolemia and follow urine output. Continue Farrell for now. GASTROINTESTINAL: Encourage diet and provide dietary supplements. Continue GI prophylaxis with Protonix. INFECTIOUS DISEASE: He is on postoperative antibiotics. I think his biggest risks from An Infectious Disease standpoint is aspiration if he is over-sedated. Keep head of bed at 30 degrees or as per the orthopedic instructions. HEMATOLOGY: Blood counts are normalizing, start Lovenox prophylaxis, patient at high risk for DVT Critical care time 35 minutes. Data Medications: Current Inpatient Medications Medications (Trade) Dose Ordered Sig/Feroz Route Start Time Stop Time Status Last Admin Dose Admin Atorvastatin Calcium (Lipitor Tab) 40 mg QAM PO 04/15/16 09:00 05/15/16 08:59 04/17/16 07:29 40 MG Fluticasone Propionate (Flonase Nasal [place]) 2 sprays DAILY HOSSEIN 04/15/16 09:00 05/15/16 08:59 04/17/16 07:28 2 SPRAYS Folic Acid (Folvite Tab) 1 mg QAM PO 04/15/16 09:00 05/15/16 08:59 04/17/16 07:30 1 MG Oxcarbazepine (Trileptal Tab) 300 mg BID PO 04/14/16 21:00 05/14/16 20:59 04/17/16 07:30 300 MG Pregabalin (Lyrica Cap) 75 mg BID PO 04/14/16 21:00 05/14/16 20:59 04/17/16 07:33 75 MG Thiamine HCl (Vitamin B-1 Tab) 100 mg BID PO 04/14/16 21:00 05/14/16 20:59 04/17/16 07:29 100 MG Venlafaxine HCl (effeXOR EXTENDED REL CAP) 150 mg QAM PO 04/15/16 09:00 05/15/16 08:59 04/17/16 07:29 150 MG Salmeterol Xinafoate/ Fluticasone (Advair Diskus 100/50 Inh) 1 puff BID INH 04/14/16 21:00 05/14/16 20:59 04/17/16 07:28 1 PUFF Levalbuterol (Xopenex 1.25MG/ 0.5ML Neb) 1.25 mg Q2H PRN INH 04/14/16 21:30 05/14/16 21:29 Magnesium Hydroxide (Milk Of Magnesia Susp) 30 ml Q6H PRN PO 04/15/16 13:00 05/15/16 12:59 Bisacodyl (Dulcolax Supp) 10 mg DAILY PRN NC 04/15/16 13:00 05/15/16 12:59 Sodium Biphosphate/ Sodium Phosphate (Fleet Enema) 132 ml DAILY PRN NC 04/15/16 13:00 05/15/16 12:59 Docusate Sodium (coLACE CAP) 100 mg BID PO 04/15/16 21:00 05/15/16 20:59 04/17/16 07:28 100 MG Al Hydrox/Mg Hydrox/Simethicone (Maalox Max Susp) 15 ml Q4H PRN PO 04/15/16 13:00 05/15/16 12:59 Multivitamins (Multivitamin Tab) 1 tab QAM PO 04/16/16 09:00 05/16/16 08:59 04/17/16 07:30 1 TAB Ondansetron HCl (Zofran Inj) 4 mg Q6H PRN IV 04/15/16 13:00 05/15/16 12:59 Ferrous Gluconate (Ferrous Gluconate Tab) 324 mg TIDM PO 04/15/16 16:45 05/15/16 17:44 04/17/16 16:25 324 MG Pantoprazole Sodium (Protonix Tab) 40 mg QAM PO 04/16/16 09:00 05/16/16 08:59 04/17/16 07:30 40 MG Miscellaneous (Iv Fluids Completed) 1 ea PRN PRN N/A 04/15/16 15:00 04/15/17 14:59 Hydromorphone HCl (Dilaudid Inj) 2 mg Q2H PRN IV 04/16/16 09:30 04/30/16 09:29 04/17/16 03:34 2 MG Hydromorphone HCl 1 mg 1 mg Q2H PRN IV 04/16/16 09:30 04/30/16 09:29 04/17/16 16:53 1 MG Dexmedetomidine HCl/Sodium Chloride (PreCEDEX INJ/ Nss 50ml) 50 ml @ 0 mls/hr Q0M PRN IV 04/16/16 10:45 04/20/16 10:44 04/17/16 07:48 7.5 MLS/HR Lorazepam (Ativan Inj) 1 mg Q2H PRN IV 04/16/16 19:45 05/16/16 19:44 04/17/16 18:15 1 MG Lorazepam 2 mg 2 mg Q2H PRN IV 04/16/16 18:00 05/16/16 17:59 Lorazepam 1 mg/ Syringe 1 ml @ 1 mls/min Q2H PRN IV 04/16/16 19:00 05/16/16 18:59 04/17/16 07:27 1 MLS/MIN Lorazepam/Syringe (Ativan Inj/ Syringe) 2 ml @ 1 mls/min Q2H PRN IV 04/16/16 19:00 05/16/16 18:59 Enoxaparin Sodium (Lovenox Inj) 30 mg Q12H SQ 04/17/16 09:00 05/17/16 07:29 04/17/16 12:05 30 MG Metoprolol Succinate 25 mg 25 mg QAM PO 04/17/16 09:00 05/17/16 08:59 Lorazepam 1 mg/ Syringe 1 ml @ 1 mls/min Q8H IV 04/18/16 00:00 04/18/16 16:00 Lorazepam 1 mg/ Syringe 1 ml @ 1 mls/min Q12H IV 04/19/16 04:00 04/19/16 16:00 Lorazepam/Syringe (Ativan Inj/ Syringe) 1 ml @ 1 mls/min Q24H IV 04/20/16 16:00 04/20/16 16:01 I & O: 24-Hour Column 04/17/16 08:00 Intake Total 3724 ml Output Total 850 ml Balance 2874 ml Vital Signs: Date Time Temp Pulse Resp B/P Pulse Ox O2 Delivery O2 Flow Rate FiO2 04/17/16 20:00 36.7 108 18 107/63 93 Room Air 04/17/16 20:00 92 Room Air 04/17/16 18:00 36.6 116 17 111/70 93 Room Air 04/17/16 16:00 Room Air 04/17/16 15:50 93 Room Air 04/17/16 15:43 36.7 108 21 125/79 93 Room Air 04/17/16 15:30 117 16 94 04/17/16 15:28 109 21 128/68 93 04/17/16 15:14 112 22 118/73 93 04/17/16 15:00 109 22 93 04/17/16 14:59 110 23 118/72 93 04/17/16 14:30 111 19 92 04/17/16 14:00 110 23 93 04/17/16 13:58 108 22 132/71 93 Room Air 04/17/16 13:43 111 22 104/65 92 04/17/16 13:30 112 18 94 04/17/16 13:28 111 22 116/72 93 04/17/16 13:13 110 20 93/63 93 04/17/16 13:00 108 20 93 04/17/16 12:59 111 18 112/67 93 04/17/16 12:43 111 18 114/71 93 04/17/16 12:30 114 19 92 04/17/16 12:29 116 17 121/82 92 04/17/16 12:13 114 20 106/72 93 04/17/16 12:00 93 Room Air 04/17/16 12:00 121 21 91 04/17/16 11:59 120 31 122/87 93 04/17/16 11:43 116 16 109/73 93 04/17/16 11:30 118 23 93 04/17/16 11:29 119 21 117/78 93 04/17/16 11:13 107 18 109/71 93 04/17/16 11:00 106 20 93 04/17/16 10:45 105 40 93 04/17/16 10:43 106 34 81/55 92 04/17/16 10:30 108 30 92 04/17/16 10:28 104 32 95/56 93 04/17/16 10:15 105 32 93 04/17/16 10:13 96 40 86/51 93 04/17/16 10:00 105 25 92 04/17/16 09:58 105 34 80/52 92 04/17/16 09:48 107 25 88/53 92 04/17/16 09:45 110 28 92 04/17/16 09:28 110 20 70/48 92 Room Air 04/17/16 09:23 111 34 70/45 91 04/17/16 09:18 111 21 65/41 93 04/17/16 09:15 111 22 93 04/17/16 09:13 113 24 65/44 93 04/17/16 09:08 113 27 63/40 93 04/17/16 09:05 112 32 69/46 92 04/17/16 09:03 114 23 62/47 93 04/17/16 09:00 116 29 93 04/17/16 08:58 116 24 76/45 93 Room Air 04/17/16 08:45 118 22 93 04/17/16 08:30 125 26 92 04/17/16 08:15 126 16 92 04/17/16 08:00 Room Air 04/17/16 08:00 129 19 92 04/17/16 07:59 37.6 132 25 104/82 92 Room Air 04/17/16 07:45 92 Room Air 04/17/16 07:45 136 19 91 04/17/16 07:30 126 31 90 04/17/16 07:15 135 20 92 04/17/16 07:00 124 16 92 04/17/16 06:00 126 44 91 04/17/16 05:00 120 20 90 04/17/16 04:58 120 18 88/69 89 Room Air 04/17/16 04:19 93 Room Air 04/17/16 03:58 120 22 111/58 90 Room Air 04/17/16 02:58 113 20 103/71 91 Room Air 04/17/16 01:58 115 18 111/66 89 Room Air 04/17/16 00:15 93 Room Air 04/16/16 23:58 36.5 115 17 117/90 88 Room Air 04/16/16 23:28 111 15 101/64 90 Room Air 04/16/16 22:58 112 15 111/67 90 Room Air 04/16/16 22:28 115 16 89/56 92 Room Air 04/16/16 21:58 36.5 119 15 109/63 91 Room Air Laboratory Results: Last 24 Hours Test 04/16/16 23:07 04/17/16 04:50 Hemoglobin 8.2 g/dL 7.9 g/dL Hematocrit 24.3 % 23.7 % White Blood Count 10.29 K/uL Red Blood Count 2.49 M/uL Mean Corpuscular Volume 95.2 fL Mean Corpuscular Hemoglobin 31.7 pg Mean Corpuscular Hemoglobin Concent 33.3 g/dl Platelet Count 121 K/uL Mean Platelet Volume 9.3 fL Neutrophils (%) (Auto) 76.0 % Lymphocytes (%) (Auto) 12.0 % Monocytes (%) (Auto) 9.1 % Eosinophils (%) (Auto) 2.2 % Basophils (%) (Auto) 0.3 % Neutrophils # (Auto) 7.82 K/uL Lymphocytes # (Auto) 1.23 K/uL Monocytes # (Auto) 0.94 K/uL Eosinophils # (Auto) 0.23 K/uL Basophils # (Auto) 0.03 K/uL RDW Standard Deviation 55.5 fL RDW Coefficient of Variation 16.1 % Immature Granulocyte % (Auto) 0.4 % Immature Granulocyte # (Auto) 0.04 K/uL Polychromasia 1+ Sodium Level 138 mmol/L Potassium Level 4.4 mmol/L Chloride Level 107 mmol/L Carbon Dioxide Level 23 mmol/L Anion Gap 8.0 mmol/L Blood Urea Nitrogen 15 mg/dl Creatinine 1.00 mg/dl Est Creatinine Clear Calc Drug Dose 83.7 ml/min Estimated GFR () 92.4 Estimated GFR (Non- 79.7 BUN/Creatinine Ratio 14.8 Random Glucose 77 mg/dl Calcium Level 7.5 mg/dl Phosphorus Level 2.9 mg/dl Magnesium Level 2.1 mg/dl Total Creatine Kinase 543 U/L
[2016-04-18] VITALS (20 sets, daily range): BP systolic 88–135; BP diastolic 58–90; PULSE 96–130; TEMP 36.8–37.3; O2SAT 91–95
[2016-04-18] MEDS: LORAZEPAM INJ 1 MG in SYRINGE 0.5 ML IV SCH ×3 (00:07→16:30)
[2016-04-18] MEDS: HYDROmorphone INJ 1 MG/ML SYR IV PRN ×2 (00:26→04:37)
[2016-04-18 06:11] LABS: HEMATOCRIT 24.7 % (42-52); MEAN CELL VOLUME 95.7 fL (80-100); MEAN CORPUSCULAR HEMOGLOBIN 31.8 pg (25-34); MEAN CORPUSCULAR HGB CONC 33.2 g/dl (32-36); MEAN PLATELET VOLUME 9.2 fL (7.4-10.4); PLATELET COUNT 152 K/uL (130-400); RED BLOOD COUNT 2.58 M/uL (4.7-6.1)
[2016-04-18 06:53] LABS: MAGNESIUM 2.1 mg/dl (1.8-2.4); THYROID STIMULATING HORMONE 2.28 uIu/ml (0.300-4.500)
[2016-04-18] MEDS: FLUTICASONE/SALMETEROL 100/50 (ADVAIR) 14 PUFF/1 INHALER INH SCH ×2 (07:53→21:48)
[2016-04-18] MEDS: DOCUSATE SODIUM 100 MG CAP PO SCH ×2 (07:53→21:47)
[2016-04-18] MEDS: THIAMINE HCL 100 MG TAB PO SCH ×2 (07:54→21:47)
[2016-04-18] MEDS: FERROUS GLUCONATE 324 MG TAB PO SCH ×3 (07:55→16:13)
[2016-04-18] MEDS: MULTIVITAMIN TAB PO SCH (07:55)
[2016-04-18] MEDS: ATORVASTATIN 20 MG TAB PO SCH (07:55)
[2016-04-18] MEDS: VENLAFAXINE HCL XR 75 MG CAPXR PO SCH (07:55)
[2016-04-18] MEDS: ENOXAPARIN 30 MG/0.3 ML SYR SQ SCH ×2 (07:56→21:48)
[2016-04-18] MEDS: PANTOprazole SOD 40 MG TAB PO SCH (07:56)
[2016-04-18] MEDS: FLUTICASONE PROPIONATE NA SPR 16 GM BTL NAE SCH (07:57)
[2016-04-18] MEDS: PREGABALIN 75 MG CAP PO SCH ×2 (08:00→21:47)
--- NOTE | 2016-04-18 08:01 | Critical Care Progress Note ---
Critical Care Progress Note Date of Service Apr 18, 2016. Attending Dr. Andrews Subjective Mr. Barnes is a 62-year-old male who is postop day #3 after ORIF of a right femur fracture which was complicated by hypotension requiring norepinephrine and his night was uneventful.. Upon seeing him today he is agitated, I woke him up and he yelled "are you kidding me," throughout my exam. Patient is sedated with Dilaudid and is also receiving scheduled and when necessary lorazepam. I cannot obtain an accurate review of systems, as the patient is not oriented and does not answer my questions. When asked if he was in pain he repeated "pain"; when I asked what his name was he repeated "name". Objective Neuro: Agitated, responding to internal stimuli. Alert but not oriented. Lungs: Coarse breath sounds bilaterally and equal throughout, no rales, rhonchi , or wheezes noted Heart: Tachycardia, no murmurs, clicks, or gallops noted Abdomen: Bowel, tympanic to percussion, sounds present, soft nontender, no organomegaly. Extremities: 2+ pulses, pedal edema +2-3 Assessment & Plan (1) Femur fracture, right Postop day #3: ORIF Right Femur Comminuted, Distracted, Angulated with hematoma Operative Abx: Ancef 1/14 Change Dilaudid to 2mg q8hrs Begin Percocet 1tab PRN Pain Orthopedics in place; Recommendations per Dr. Houston (2) Altered mental status Consider Multifactorial causes * ETOH Withdrawal * Fat Embolism; Right Femur Frax * Baseline Psychosis Continue treatment for alcohol abuse/withdrawal: * Lorazepam * Thiamine * Folic acid * Multivitamin Weaning down Dilaudid as stated above Consider psych consult Neuro checks per nursing protocol (3) Alcohol abuse Known alcohol abuse; unsure of amount Continue treatment as above (4) Anemia Transfused 4 units PRBCs this admission Hemoglobin slight improvement; 8.2 today No active sign of bleeding Follow serial labs (5) Tachycardia Heart rate > 100 since admission; 114 on exam today Beta cristina started yesterday at 25mg As tolerated continue Metoprolol Succinate 50mg PO qDaily (6) History of hypertension Hypotension this admission 112/68 now Restart home meds when blood pressure allows * metoprolol * lisinopril (7) ZAK (acute kidney injury) Likely multifactorial; Hypotension off pressors now Creatinine peaked at 1.5; improving today at 1.0 Avoid nephrotoxic medications Follow I's and O's Follow serial labs (8) COPD (chronic obstructive pulmonary disease) Currently no signs of exacerbation on physical exam 94% on room air Continue Advair Treatments Supplemental oxygen as needed (9) Hypotension Previously noted to be hypotensive requiring levo fed Pressors now discontinued SBP greater than 100 Continues with tachycardia Monitor on telemetry Constipation: Bowel regimen in place; please continue I/D: Afebrile, WBCs trending down slightly D/C Farrell D/C PICC line Access: [address] Right triple lumen PICC in place GI prophylaxis: Continue Protonix DVT prophylaxis: SCDs in place Lovenox 30 mg q12 Disposition: Pt stable for transfer to monitored unit, per Dr. Andrews CCT: 0 minutes, level II inpatient billing. Not including any billable procedures. Thank you for including us in the care of this patient, please review Dr. Huber Andrews's addendum for further recommendations. I have personally evaluated and examined this patient. I agree with assessment and plan of Sofya Coronado PA-C. Increasing Metoprolol today. I would like to see his mental status improving more rapidly. Fat micro-emboli are still in the differential, however, this would not change the management. Patient would be unlikely to tolerate MRI, may benefit from ECHO to evaluate for PFO, as patient did not have profound hypoxia as fat emboli should shower lungs. The patient has continued to stabilize and his mental status has mildly improved, and is stable for transfer out of the ICU. I have discussed the case with Orthopedics and the hospitalist service. Consults & Procedures Consultants: Orthopedics: Dr. Houston Data Medications: Current Inpatient Medications Medications (Trade) Dose Ordered Sig/Feroz Route Start Time Stop Time Status Last Admin Dose Admin Atorvastatin Calcium (Lipitor Tab) 40 mg QAM PO 04/15/16 09:00 05/15/16 08:59 04/17/16 07:29 40 MG Fluticasone Propionate (Flonase Nasal [place]) 2 sprays DAILY HOSSEIN 04/15/16 09:00 05/15/16 08:59 04/17/16 07:28 2 SPRAYS Folic Acid (Folvite Tab) 1 mg QAM PO 04/15/16 09:00 05/15/16 08:59 04/17/16 07:30 1 MG Oxcarbazepine (Trileptal Tab) 300 mg BID PO 04/14/16 21:00 05/14/16 20:59 04/17/16 21:40 300 MG Pregabalin (Lyrica Cap) 75 mg BID PO 04/14/16 21:00 05/14/16 20:59 04/17/16 21:40 75 MG Thiamine HCl (Vitamin B-1 Tab) 100 mg BID PO 04/14/16 21:00 05/14/16 20:59 04/17/16 21:40 100 MG Venlafaxine HCl (effeXOR EXTENDED REL CAP) 150 mg QAM PO 04/15/16 09:00 05/15/16 08:59 04/17/16 07:29 150 MG Salmeterol Xinafoate/ Fluticasone (Advair Diskus 100/50 Inh) 1 puff BID INH 04/14/16 21:00 05/14/16 20:59 04/17/16 21:40 1 PUFF Levalbuterol (Xopenex 1.25MG/ 0.5ML Neb) 1.25 mg Q2H PRN INH 04/14/16 21:30 05/14/16 21:29 Magnesium Hydroxide (Milk Of Magnesia Susp) 30 ml Q6H PRN PO 04/15/16 13:00 05/15/16 12:59 Bisacodyl (Dulcolax Supp) 10 mg DAILY PRN WI 04/15/16 13:00 05/15/16 12:59 Sodium Biphosphate/ Sodium Phosphate (Fleet Enema) 132 ml DAILY PRN WI 04/15/16 13:00 05/15/16 12:59 Docusate Sodium (coLACE CAP) 100 mg BID PO 04/15/16 21:00 05/15/16 20:59 04/17/16 21:40 100 MG Al Hydrox/Mg Hydrox/Simethicone (Maalox Max Susp) 15 ml Q4H PRN PO 04/15/16 13:00 05/15/16 12:59 Multivitamins (Multivitamin Tab) 1 tab QAM PO 04/16/16 09:00 05/16/16 08:59 04/17/16 07:30 1 TAB Ondansetron HCl (Zofran Inj) 4 mg Q6H PRN IV 04/15/16 13:00 05/15/16 12:59 Ferrous Gluconate (Ferrous Gluconate Tab) 324 mg TIDM PO 04/15/16 16:45 05/15/16 17:44 04/17/16 16:25 324 MG Pantoprazole Sodium (Protonix Tab) 40 mg QAM PO 04/16/16 09:00 05/16/16 08:59 04/17/16 07:30 40 MG Miscellaneous (Iv Fluids Completed) 1 ea PRN PRN N/A 04/15/16 15:00 04/15/17 14:59 Hydromorphone HCl (Dilaudid Inj) 2 mg Q2H PRN IV 04/16/16 09:30 04/30/16 09:29 04/17/16 03:34 2 MG Hydromorphone HCl 1 mg 1 mg Q2H PRN IV 04/16/16 09:30 04/30/16 09:29 04/18/16 04:37 1 MG Dexmedetomidine HCl/Sodium Chloride (PreCEDEX INJ/ Nss 50ml) 50 ml @ 0 mls/hr Q0M PRN IV 04/16/16 10:45 04/20/16 10:44 04/17/16 07:48 7.5 MLS/HR Lorazepam (Ativan Inj) 1 mg Q2H PRN IV 04/16/16 19:45 05/16/16 19:44 04/17/16 18:15 1 MG Lorazepam 2 mg 2 mg Q2H PRN IV 04/16/16 18:00 05/16/16 17:59 Lorazepam 1 mg/ Syringe 1 ml @ 1 mls/min Q2H PRN IV 04/16/16 19:00 05/16/16 18:59 04/17/16 07:27 1 MLS/MIN Lorazepam/Syringe (Ativan Inj/ Syringe) 2 ml @ 1 mls/min Q2H PRN IV 04/16/16 19:00 05/16/16 18:59 Enoxaparin Sodium (Lovenox Inj) 30 mg Q12H SQ 04/17/16 09:00 05/17/16 07:29 04/17/16 21:41 30 MG Metoprolol Succinate 25 mg 25 mg QAM PO 04/17/16 09:00 05/17/16 08:59 Lorazepam 1 mg/ Syringe 1 ml @ 1 mls/min Q8H IV 04/18/16 00:00 04/18/16 16:00 04/18/16 00:07 1 MLS/MIN Lorazepam 1 mg/ Syringe 1 ml @ 1 mls/min Q12H IV 04/19/16 04:00 04/19/16 16:00 Lorazepam/Syringe (Ativan Inj/ Syringe) 1 ml @ 1 mls/min Q24H IV 04/20/16 16:00 04/20/16 16:01 I & O: 24-Hour Column 04/18/16 08:00 Intake Total 1440 ml Output Total 1725 ml Balance -285 ml Vital Signs: Date Time Temp Pulse Resp B/P Pulse Ox O2 Delivery O2 Flow Rate FiO2 04/18/16 06:00 114 16 112/68 94 Room Air 04/18/16 04:00 Room Air 04/18/16 04:00 36.8 106 18 94/58 93 Room Air 04/18/16 02:00 110 15 103/63 92 Room Air 04/18/16 00:01 36.8 108 17 88/67 93 Room Air 04/17/16 23:59 Room Air 04/17/16 22:00 110 16 108/71 93 Room Air 04/17/16 20:00 36.7 108 18 107/63 93 Room Air 04/17/16 20:00 92 Room Air 04/17/16 18:00 36.6 116 17 111/70 93 Room Air 04/17/16 16:00 Room Air 04/17/16 15:50 93 Room Air 04/17/16 15:43 36.7 108 21 125/79 93 Room Air 04/17/16 15:30 117 16 94 04/17/16 15:28 109 21 128/68 93 04/17/16 15:14 112 22 118/73 93 04/17/16 15:00 109 22 93 04/17/16 14:59 110 23 118/72 93 04/17/16 14:30 111 19 92 04/17/16 14:00 110 23 93 04/17/16 13:58 108 22 132/71 93 Room Air 04/17/16 13:43 111 22 104/65 92 04/17/16 13:30 112 18 94 04/17/16 13:28 111 22 116/72 93 04/17/16 13:13 110 20 93/63 93 04/17/16 13:00 108 20 93 04/17/16 12:59 111 18 112/67 93 04/17/16 12:43 111 18 114/71 93 04/17/16 12:30 114 19 92 04/17/16 12:29 116 17 121/82 92 04/17/16 12:13 114 20 106/72 93 04/17/16 12:00 93 Room Air 04/17/16 12:00 121 21 91 04/17/16 11:59 120 31 122/87 93 04/17/16 11:43 116 16 109/73 93 04/17/16 11:30 118 23 93 04/17/16 11:29 119 21 117/78 93 04/17/16 11:13 107 18 109/71 93 04/17/16 11:00 106 20 93 04/17/16 10:45 105 40 93 04/17/16 10:43 106 34 81/55 92 04/17/16 10:30 108 30 92 04/17/16 10:28 104 32 95/56 93 04/17/16 10:15 105 32 93 04/17/16 10:13 96 40 86/51 93 04/17/16 10:00 105 25 92 04/17/16 09:58 105 34 80/52 92 04/17/16 09:48 107 25 88/53 92 04/17/16 09:45 110 28 92 04/17/16 09:28 110 20 70/48 92 Room Air 04/17/16 09:23 111 34 70/45 91 04/17/16 09:18 111 21 65/41 93 04/17/16 09:15 111 22 93 04/17/16 09:13 113 24 65/44 93 04/17/16 09:08 113 27 63/40 93 04/17/16 09:05 112 32 69/46 92 04/17/16 09:03 114 23 62/47 93 04/17/16 09:00 116 29 93 04/17/16 08:58 116 24 76/45 93 Room Air 04/17/16 08:45 118 22 93 04/17/16 08:30 125 26 92 04/17/16 08:15 126 16 92 04/17/16 08:00 Room Air 04/17/16 08:00 129 19 92 04/17/16 07:59 37.6 132 25 104/82 92 Room Air Laboratory Results: Last 24 Hours Test 04/18/16 05:12 White Blood Count 9.20 K/uL Red Blood Count 2.58 M/uL Hemoglobin 8.2 g/dL Hematocrit 24.7 % Mean Corpuscular Volume 95.7 fL Mean Corpuscular Hemoglobin 31.8 pg Mean Corpuscular Hemoglobin Concent 33.2 g/dl RDW Standard Deviation 54.6 fL RDW Coefficient of Variation 15.9 % Platelet Count 152 K/uL Mean Platelet Volume 9.2 fL Magnesium Level 2.1 mg/dl Total Bilirubin 0.8 mg/dl Direct Bilirubin 0.3 mg/dl Aspartate Amino Transf (AST/SGOT) 45 U/L Alanine Aminotransferase (ALT/SGPT) 23 U/L Alkaline Phosphatase 96 U/L Total Protein 5.0 gm/dl Albumin 1.8 gm/dl Thyroid Stimulating Hormone (TSH) 2.280 uIu/ml
[2016-04-18] MEDS: OXCARBAZEPINE 150 MG TAB PO SCH ×2 (08:12→21:47)
[2016-04-18] MEDS: METOPROLOL SUCC 25MG EXT REL TAB PO SCH (09:36)
[2016-04-18] MEDS ORDERED: METOPROLOL SUCC 25MG EXT REL TAB PO ONE (10:15)
[2016-04-18] MEDS ORDERED: HYDROmorphone INJ 2 MG/ML SYR/VIAL IV PRN (10:45)
[2016-04-18] MEDS ORDERED: HYDROmorphone INJ 1 MG/ML SYR IV PRN ×3 (10:45→18:15)
[2016-04-18] MEDS: MAGNESIUM HYDROXIDE SUSP 30 ML UDC PO PRN (14:00)
--- NOTE | 2016-04-18 15:01 | ORTHOPEDICS PROGRESS NOTE ---
DATE: 04/18/2016 SUBJECTIVE: At this point in time, the patient's vital signs are more stable with blood pressures being stable ;he is afebrile. He still remains fairly encephalopathic. His pulse is still tachycardic, medical team increased his beta cristina. His respiratory rate is in the 15-20 range. He maintains oxygenation well. He follows commands, but he is very sedated presently. He can move all 4 extremities. There is no sign of any focal neurologic deficits. His dressing has changed, it is removed, it is mostly saturated with serous material. There is no active bleeding. There is some minor peau D'orange around the thigh, but there is no tense compartment problem. The area was cleansed and then redressed on the proximal side, the distal site was left open, it is not draining at all. I expect to have some significant serous draining from the proximal wound for at least a week or so. Particularly now that he is on Lovenox. ASSESSMENT: Post open reduction internal fixation of complex anirudh/subtrochanteric femur fracture with multiple medical comorbidities. At this point, continue to mobilize as tolerated based on mental status. Discussed issues with fat emboli with serger with potential patent foramen ovale, fat emboli could have spared his lungs, which is something to consider despite no change in treatment; at this point in time it would not be anything more significant than identifying the issue. He has received maximum support for his conditions. WENDY
--- NOTE | 2016-04-18 16:04 | Progress Note ---
Subjective Date of Service: Apr 18, 2016. Subjective Pt evaluation today including: conversation w/ patient, physical exam, chart review, lab review, review of studies, conversation w/ emergency management consultant, review of inpatient medication list Still confuse, but generally looked better, was Feeding, eat 50% lunch, good urine output,, report pain right hip pain when change positions Problem List Medical Problems: (1) Anemia Status: Acute (2) DVT (deep venous thrombosis) Status: Acute (3) Fall Status: Acute (4) Gout Status: Acute (5) Hyponatremia Status: Acute (6) Multiple rib fractures Status: Acute (7) Syncope Status: Acute Review of Systems Constitutional: + fatigue, + weakness, No chills, No fever Eyes: No eye pain, No worsening of vision ENT: No hearing loss, No unusual epistaxis Respiratory: No cough Cardiac: No chest pain, No orthopnea Abdomen: No pain Musculoskeletal: + joint pain Male : No dysuria Neurologic: + memory loss, + problem reported (confused) Psychiatric: No anhedonism, No depression symptoms Heme: No abnormal bleeding/bruising Endo: + fatigue Objective Vital Signs Date Time Temp Pulse Resp B/P Pulse Ox O2 Delivery O2 Flow Rate FiO2 04/18/16 15:25 95 Room Air 04/18/16 14:00 122 23 93 Room Air 04/18/16 13:58 112 20 131/83 93 Room Air 04/18/16 13:27 120 21 119/82 95 Room Air 04/18/16 13:18 130 25 91/81 93 04/18/16 13:11 114 18 132/88 93 04/18/16 13:00 116 20 92 04/18/16 12:58 110 19 117/79 92 04/18/16 12:00 117 21 93 04/18/16 11:59 121 22 135/90 95 04/18/16 11:40 92 Room Air 04/18/16 11:00 112 18 94 04/18/16 10:00 115 16 113/66 93 Room Air 04/18/16 08:00 Room Air 04/18/16 08:00 93 Room Air 04/18/16 06:00 114 16 112/68 94 Room Air 04/18/16 04:00 Room Air 04/18/16 04:00 36.8 106 18 94/58 93 Room Air 04/18/16 02:00 110 15 103/63 92 Room Air 04/18/16 00:01 36.8 108 17 88/67 93 Room Air 04/17/16 23:59 Room Air 04/17/16 22:00 110 16 108/71 93 Room Air 04/17/16 20:00 36.7 108 18 107/63 93 Room Air 04/17/16 20:00 92 Room Air 04/17/16 18:00 36.6 116 17 111/70 93 Room Air 04/17/16 16:00 Room Air Physical Exam General Appearance: WD/WN, no apparent distress, + pertinent finding (confused but answers simple question) Eyes: normal inspection, PERRL, EOMI, sclerae normal ENT: normal ENT inspection, hearing grossly normal, pharynx normal Neck: supple, no adenopathy, thyroid normal, no JVD, no carotid bruits, trachea midline Respiratory/Chest: chest non-tender, normal breath sounds, no respiratory distress, no accessory muscle use, + decreased breath sounds Cardiovascular: regular rate, rhythm, no edema, no gallop, no JVD, no murmur, + tachycardia Abdomen: normal bowel sounds, non tender, soft, no organomegaly, no pulsatile mass Extremities: normal range of motion, non-tender, normal inspection, no pedal edema, no calf tenderness, normal capillary refill, pelvis stable Neurologic/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: 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, no motor/sensory deficits, alert, normal mood/affect, oriented x 3 Skin: normal color, warm/dry, no rash Lymphatic: no adenopathy Laboratory Results Last 24 Hours Test 04/18/16 05:12 White Blood Count 9.20 K/uL Red Blood Count 2.58 M/uL Hemoglobin 8.2 g/dL Hematocrit 24.7 % Mean Corpuscular Volume 95.7 fL Mean Corpuscular Hemoglobin 31.8 pg Mean Corpuscular Hemoglobin Concent 33.2 g/dl RDW Standard Deviation 54.6 fL RDW Coefficient of Variation 15.9 % Platelet Count 152 K/uL Mean Platelet Volume 9.2 fL Magnesium Level 2.1 mg/dl Total Bilirubin 0.8 mg/dl Direct Bilirubin 0.3 mg/dl Aspartate Amino Transf (AST/SGOT) 45 U/L Alanine Aminotransferase (ALT/SGPT) 23 U/L Alkaline Phosphatase 96 U/L Total Protein 5.0 gm/dl Albumin 1.8 gm/dl Thyroid Stimulating Hormone (TSH) 2.280 uIu/ml Assessment and Plan 65 yo male with history of alcohol abuse, HTN, smoking and anxiety/depression, admitted on 04/15/2016 because of severe right hip pain after falling on concrete walkway. x-ray showed a right hip fracture, the earlobe alcohol withdrawal confusion has been in the ICU, - Right comminuted, distracted, angulated overriding subtrochanteric fracture: s/p ORIF with lock troch nail long on 04/[address] Szymanski, POD #3 Continue pain control , activity level, current and is on Lovenox 30 mg subcutaneous every 12 for DVT prophylaxis , I will verified the dose with orthopedics significant amount of acute blood loss anemia, H&H has been stable Was Hypotension upon admission: multifactorial but most likely from hemorrhagic shock, significant blood loss both with the fracture and then in the OR, resolved Blood transfusion totally 4 unit has received enough fluid at this point EKG without ischemia or infarction, normal troponin UO fair - Acute blood loss anemia from surgery and hip fracture, see above - Acute renal failure: certainly due to hypovol and blood loss, prerenal, creatinine is normalizing - Alcohol abuse: reports > 6 drinks per day, has been on CIVA protocol, continue CIWA protocol Continue thiamine, folate, vitamin B1, continue Ativan per protocol - Tobacco abuse: nebulizers PRN for dyspnea, nicotine patch - HTN: Continue follow-up - Hyperlipidemia: Lipitor - GERD: Protonix - Anxiety/Depression: Effexor and Trileptal - Neuropathy: Lyrica - Malnutrition with low pre-albumin, will continue watch dietitian consult if needed discussed with nurse, platform worker, will transfer to PCU only the reason in the PCU is because still some tachycardia, heart rate at 120 Continued [facility] stay due to: multiple IV medications needed Discharge planning: rehab hospital
[2016-04-18] MEDS ORDERED: METOPROLOL SUCC 25MG EXT REL TAB PO SCH (18:06)
[2016-04-18] MEDS ORDERED: MULTI-VITAMIN INFUSION INJ 10 ML, THIAMINE HCL INJ 100 MG, FoLIC ACID INJ 1 MG in SODIU... IV SCH (18:06)
[2016-04-18] MEDS ORDERED: POTASSIUM CHLORIDE INJ 10 MEQ in SODIUM CHLORIDE 0.9% 1000ML 1,000 ML IV SCH (18:06)
[2016-04-18] MEDS ORDERED: PANTOprazole SOD 40 MG TAB PO SCH (18:06)
[2016-04-18] MEDS ORDERED: MoRPHine SULFATE 2 MG/ML CARP IV PRN (18:15)
[2016-04-18] MEDS ORDERED: ZOLPIDEM TARTRATE 5 MG TAB PO PRN (18:15)
[2016-04-18] MEDS ORDERED: CEFAZOLIN IV 2,000 MG in DEXTROSE 5% 50ML 50 ML IV SCH (18:15)
[2016-04-18] MEDS ORDERED: ONDANSETRON INJ 2 MG/ML 2 ML VIAL IV PRN ×2 (18:15)
[2016-04-18] MEDS ORDERED: IPRATROPIUM BROMIDE NEB SOLN 0.02% 2.5 ML VIAL INH PRN (18:15)
[2016-04-18] MEDS: NEPHROCAPS PO SCH (20:18)
[2016-04-18] MEDS: ACETAMINOPHEN IV 1,000 MG in EMPTY BAG 0 ML IV SCH (20:20)
[2016-04-18] MEDS: BOOST VANILLA PO SCH ×2 (21:47)
[2016-04-19] VITALS (11 sets, daily range): BP systolic 86–138; BP diastolic 54–88; PULSE 76–97; TEMP 36.5–36.9; O2SAT 92–97
[2016-04-19] MEDS: ACETAMINOPHEN IV 1,000 MG in EMPTY BAG 0 ML IV SCH ×2 (05:13→12:40)
[2016-04-19] MEDS: LORAZEPAM INJ 1 MG in SYRINGE 0.5 ML IV SCH ×2 (05:13→16:00)
[2016-04-19 06:33] LABS: MEAN CELL VOLUME 96.6 fL (80-100); MEAN CORPUSCULAR HEMOGLOBIN 32.4 pg (25-34); MEAN CORPUSCULAR HGB CONC 33.5 g/dl (32-36); PLATELET COUNT 157 K/uL (130-400); RED BLOOD COUNT 2.38 M/uL (4.7-6.1); WHITE BLOOD COUNT 7.11 K/uL (4.8-10.8)
[2016-04-19] MEDS: ATORVASTATIN 20 MG TAB PO SCH (07:56)
[2016-04-19] MEDS: THIAMINE HCL 100 MG TAB PO SCH ×2 (07:56→21:26)
[2016-04-19] MEDS: PANTOprazole SOD 40 MG TAB PO SCH (07:57)
[2016-04-19] MEDS: DOCUSATE SODIUM 100 MG CAP PO SCH ×2 (07:57→21:26)
[2016-04-19] MEDS: OXCARBAZEPINE 150 MG TAB PO SCH ×2 (07:57→21:26)
[2016-04-19] MEDS: VENLAFAXINE HCL XR 75 MG CAPXR PO SCH (07:57)
[2016-04-19] MEDS: MULTIVITAMIN TAB PO SCH (07:57)
[2016-04-19] MEDS: FERROUS GLUCONATE 324 MG TAB PO SCH ×3 (07:57→18:14)
[2016-04-19] MEDS: METOPROLOL SUCC 50MG EXT REL TAB PO SCH (07:58)
[2016-04-19] MEDS: NEPHROCAPS PO SCH (07:58)
[2016-04-19] MEDS: BOOST VANILLA PO SCH ×4 (07:59→21:26)
[2016-04-19] MEDS: FLUTICASONE PROPIONATE NA SPR 16 GM BTL NAE SCH (07:59)
[2016-04-19] MEDS: FLUTICASONE/SALMETEROL 100/50 (ADVAIR) 14 PUFF/1 INHALER INH SCH ×2 (07:59→21:26)
[2016-04-19] MEDS: ENOXAPARIN 30 MG/0.3 ML SYR SQ SCH (07:59)
[2016-04-19] MEDS: PREGABALIN 75 MG CAP PO SCH ×2 (08:01→21:26)
--- NOTE | 2016-04-19 10:28 | Progress Note ---
Orthopedic SOAP Note Subjective Date of Service: Apr 19, 2016. Post OP Day: 4 Reports: pain controlled w PO medications, Denies: SOB, calf pain, chest pain, complaints, feeling well, light headedness, nausea / vomiting, using PYROTECHNICIAN Problem List Medical Problems: (1) Anemia Status: Acute (2) DVT (deep venous thrombosis) Status: Acute (3) Fall Status: Acute (4) Gout Status: Acute (5) Hyponatremia Status: Acute (6) Multiple rib fractures Status: Acute (7) Syncope Status: Acute Objective calves soft nontender, N/V intact, capillary refill less than 2 sec., dressing C /D/I, toes mobile Patient is alert. Resting comfortably in bed. Pleasant and smiling. He is aware that he is in the hospital but was not aware he fell, how he fell, or that he required surgery for his injury. Physical therapy had the patient sitting at bedside. Restrictions reinforced with PT. Also advised that H&H is low and to use caution regarding potential syncope symptoms. Aware and will use caution accordingly. Date Time Temp Pulse Resp B/P Pulse Ox O2 Delivery O2 Flow Rate FiO2 04/19/16 08:00 95 Room Air 2.0 04/19/16 07:52 36.8 76 18 86/54 95 04/19/16 04:00 Room Air 04/19/16 03:54 36.9 91 16 116/77 92 Room Air 04/19/16 00:00 Room Air 04/18/16 23:49 37.3 96 17 98/65 91 Room Air 04/18/16 20:00 93 Room Air 04/18/16 15:25 95 Room Air 04/18/16 14:00 122 23 93 Room Air 04/18/16 13:58 112 20 131/83 93 Room Air 04/18/16 13:27 120 21 119/82 95 Room Air 04/18/16 13:18 130 25 91/81 93 04/18/16 13:11 114 18 132/88 93 04/18/16 13:00 116 20 92 04/18/16 12:58 110 19 117/79 92 04/18/16 12:00 117 21 93 04/18/16 11:59 121 22 135/90 95 04/18/16 11:40 92 Room Air 04/18/16 11:00 112 18 94 Laboratory Results 24 Hours: Test 04/19/16 06:07 Hematocrit 23.0 % Hemoglobin 7.7 g/dL Assessment post op day 4 s/p open reduction internal fixation of complex anirudh/ subtrochanteric femur fracture Plan Continue post op care DVT prophylaxis with Lovenox Toe touch weightbearing right lower extremity with walker and assist Ice right hip Resume diet Dressing changed 04/18/16 Pain control with prescribed medications Continue PT/OT Continue to mobilize per mental status Medicine ordered PRBC's, H&H 7.7 & 23.0 Will monitor labs accordingly Will discuss further with Dr. Houston
[2016-04-19] MEDS ORDERED: ALBUT/IPRATROP 3MG/0.5MG NEB 3 ML VIAL INH SCH (10:30)
[2016-04-19 10:52] LABS: FERRITIN 301.9 ng/ml (8.0-388.0)
[2016-04-19] MEDS ORDERED: PANTOprazole INJ 40 MG in SYRINGE 0 ML IV SCH (11:00)
[2016-04-19] MEDS: OXYCODONE/ACETAMINOPHEN 5-325 TAB PO PRN (12:00)
--- NOTE | 2016-04-19 13:17 | PROGRESS NOTE ---
DATE: 04/19/2016 SUBJECTIVE: Postop check: At this point in time, he is not on room #217. He is now awake and alert. He answers some questions appropriately. He definitely still has some overlying memory deficit and metabolic encephalopathy. He follows commands well. He is pleasant. OBJECTIVE: Vital signs are stable. He is afebrile. Wound dressing clean, dry and intact. Neurovascular check both lower extremities normal. IMPRESSION AND PLAN: At this point in time, continue with maximum medical support, per medicine. Deep venous thrombosis prophylaxis per medicine and allow touchdown weightbearing when cooperative.
--- NOTE | 2016-04-19 13:53 | Progress Note ---
Subjective Date of Service: Apr 19, 2016. Subjective Pt evaluation today including: conversation w/ patient, physical exam, chart review, lab review, review of studies, conversation w/ client care consultant, review of inpatient medication list Looks better, awake and alert and orientated to name, day and place, but the best friend in the bedside feels he is not in the baseline. Problem List Medical Problems: (1) Anemia Status: Acute (2) DVT (deep venous thrombosis) Status: Acute (3) Fall Status: Acute (4) Gout Status: Acute (5) Hyponatremia Status: Acute (6) Multiple rib fractures Status: Acute (7) Syncope Status: Acute Review of Systems Constitutional: + fatigue, + weakness, No chills, No fever, No problem reported , No sweats, No weight loss Eyes: No diplopia, No discharge, No eye pain, No redness, No worsening of vision ENT: No dental problems, No hearing loss, No nasal symptoms, No sore throat, No tinnitus, No trouble swallowing, No unusual epistaxis Respiratory: + cough, No dyspnea at rest, No dyspnea on exertion, No hemoptysis , No shortness of breath, No sputum, No wheezing Cardiac: No PND, No chest pain, No claudication, No edema, No orthopnea, No palpitations Abdomen: No constipation, No diarrhea, No nausea, No pain, No vomiting Musculoskeletal: + joint pain, No calf pain, No muscle pain, No swelling Male : No dysuria, No hematuria, No incontinence, No nocturia more than once/ night, No slowing stream, No urinary frequency Neurologic: No balance problems, No memory loss, No numbness/tingling, No paralysis, No vertigo, No weakness Psychiatric: No anhedonism, No anxiety, No depression symptoms, No insomnia, No substance abuse Heme: No abnormal bleeding/bruising, No clotting problems, No night sweats, No swollen lymph nodes Endo: No excessive thirst, No excessive urination, No fatigue Skin: No bleeding, No color change, No itch, No new/changing skin lesions, No rash Objective Vital Signs Date Time Temp Pulse Resp B/P Pulse Ox O2 Delivery O2 Flow Rate FiO2 04/19/16 12:45 36.7 89 20 120/64 96 04/19/16 12:00 36.8 97 20 130/68 97 Room Air 04/19/16 12:00 95 Room Air 2.0 04/19/16 11:45 36.6 91 18 132/84 04/19/16 11:45 36.5 91 18 138/88 93 04/19/16 11:17 36.6 87 18 122/80 96 04/19/16 11:11 36.5 94 18 108/68 93 04/19/16 08:00 95 Room Air 2.0 04/19/16 07:52 36.8 76 18 86/54 95 04/19/16 04:00 Room Air 04/19/16 03:54 36.9 91 16 116/77 92 Room Air 04/19/16 00:00 Room Air 04/18/16 23:49 37.3 96 17 98/65 91 Room Air 04/18/16 20:00 93 Room Air 04/18/16 15:25 95 Room Air 04/18/16 14:00 122 23 93 Room Air 04/18/16 13:58 112 20 131/83 93 Room Air Physical Exam General Appearance: WD/WN, no apparent distress Eyes: normal inspection, PERRL, EOMI, sclerae normal ENT: normal ENT inspection, hearing grossly normal, pharynx normal Neck: supple, no adenopathy, thyroid normal, no JVD, no carotid bruits, trachea midline Respiratory/Chest: chest non-tender, normal breath sounds, no respiratory distress, no accessory muscle use, + decreased breath sounds Cardiovascular: regular rate, rhythm, no edema, no gallop, no JVD, no murmur Abdomen: normal bowel sounds, non tender, soft, no organomegaly, no pulsatile mass Extremities: non-tender, normal inspection, no pedal edema, no calf tenderness , normal capillary refill, pelvis stable, + pertinent finding (right hip local wounds in dressing) 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, no motor/sensory deficits, alert, normal mood/affect, oriented x 3 Skin: normal color, warm/dry, no rash Lymphatic: no adenopathy Laboratory Results Last 24 Hours Test 04/19/16 06:07 04/19/16 09:53 White Blood Count 7.11 K/uL Red Blood Count 2.38 M/uL Hemoglobin 7.7 g/dL Hematocrit 23.0 % Mean Corpuscular Volume 96.6 fL Mean Corpuscular Hemoglobin 32.4 pg Mean Corpuscular Hemoglobin Concent 33.5 g/dl RDW Standard Deviation 54.8 fL RDW Coefficient of Variation 16.1 % Platelet Count 157 K/uL Mean Platelet Volume 9.0 fL Iron Level 22 mcg/dl Total Iron Binding Capacity 151 mcg/dl Ferritin 301.9 ng/ml Vitamin B12 Level 413 pg/mL Folate > 24.00 ng/mL Assessment and Plan 65 yo male with history of alcohol abuse, HTN, smoking and anxiety/depression, admitted on 04/15/2016 because of severe right hip pain after falling on concrete walkway. x-ray showed a right hip fracture, he developed alcohol withdrawal confusion was in the ICU, was transferred to PCU on [id number] - Right comminuted, distracted, angulated overriding subtrochanteric fracture: s/p ORIF with lock troch nail long on 04/[address] Szymanski, POD #4 Continue pain control , activity level, change Lovenox 30 mg subcutaneous daily for DVT prophylaxis , per orthopedic will allow touchdown weightbearing when cooperative. significant amount of acute blood loss anemia, H&H has been stable, but in the lower side, Will give 1 unit blood transfusion day Send anemia panel includes stool Hemoccult vitamin B12 and folate acid Was Hypotension upon admission: multifactorial but most likely from hemorrhagic shock, significant blood loss both with the fracture and then in the OR, resolved Blood transfusion totally 4 unit , and +1 unit today EKG without ischemia or infarction, normal troponin UO fair - Acute blood loss anemia from surgery and hip fracture, see above - Acute renal failure: certainly due to hypovol and blood loss, prerenal, creatinine is normalizing - Alcohol abuse: reports > 6 drinks per day, has been on CIVA protocol, continue CIWA protocol, has been improving Continue thiamine, folate, vitamin B1, continue Ativan per protocol Has been confusion and cognition decreased, but awake and alert and orientated, possible from the medication for the treatment of alcohol withdrawal, however there was concern about micro fatty embolization which caused encephalopathy, I feel in the possibilities he is very low, however I will check echo, brain HI , and have neurology consultation - Tobacco abuse: nebulizers PRN for dyspnea, nicotine patch - HTN: Continue follow-up - Hyperlipidemia: Lipitor - GERD: Protonix - Anxiety/Depression: Effexor and Trileptal - Neuropathy: Lyrica - Malnutrition with low pre-albumin, will continue watch dietitian consult if needed discussed with nurse, scalemaker, will transfer same day surgery center, possible discharge to rehabilitation day 1-2 Continued [facility] stay due to: multiple IV medications needed Discharge planning: rehab hospital
[2016-04-19] MEDS ORDERED: CHLORDIAZEPOXIDE 25 MG CAP PO ONE (17:15)
--- NOTE | 2016-04-19 17:51 | ECHOCARDIOGRAM REPORT ---
*NOTICE TO RECEIVING [employer] This information is strictly Confidential and protected under [place] law. [place] law prohibits you from making any further disclosure of this information unless further disclosure is expressly permitted by the written consent of the person to whom it pertains or is authorized by law. A general authorization for the release of medical or other information is not sufficient for this purpose. Hospital accepts no responsibility if the information is made available to any other person, INCLUDING THE PATIENT. Interpretation Summary * Name: DENAE LAL Study Date: 04/19/2016 03:34 PM BP: 122/68 mmHg * Patient Location: C.2T\S\E217\S\1 HR: 86 * : 1950 (M/d/yyyy) Gender: Male Height: 66 in * Age: 65 yrs Ethnicity: [place] Weight: 220 lb * Ordering Physician: Ismael Lehman * Referring Physician: Self, Referred * Performed By: Alise Bender RCS * * Reason For Study: Eval for PFO, Encephalopathy for fat micro-emboli * BSA: 2.1 m2 * -- Conclusions -- * 1. Normal LV size. Normal LV wall thickness. * 2. Normal LV systolic function. LVEF 60-65 %. No regional wall motion abnormalities. * 3. Normal RV size and function. * 4. Trace MR, trace TR. * 5. Normal estimated PA and RA pressures. * 6. Minimally positive saline contrast study, suspect PFO. * 6. Compared with prior study on 10/30/2014: No significant change Procedure Details * A complete two-dimensional transthoracic echocardiogram was performed (2D, M-mode, Doppler and color flow Doppler). * A saline contrast injection was performed to assess for cardiac shunting. * The injection was performed through an intravenous line in the right arm. * The attending nurse who injected the saline contrast was Patricia Kelsey RN. * A total of 20 cc of agitated saline was given. * There were technical limitations due to patient's poor acoustic windows secondary to severe lung disease and in sitting position for imagining Left Ventricle * The left ventricle is grossly normal size. * There is normal left ventricular wall thickness. * Ejection Fraction = 60-65%. Right Ventricle * The right ventricle is grossly normal size. * The right ventricular systolic function is normal as assessed by tricuspid annular plane systolic excursion (TAPSE) (normal >1.5 cm). Atria * The left atrial size is normal. * Right atrial size is normal. * A patent foramen ovale is suspected. * Injection of contrast documented an interatrial shunt. Mitral Valve * The mitral valve is grossly normal. * There is no mitral valve stenosis. * There is trace mitral regurgitation. Tricuspid Valve * The tricuspid valve is not well visualized. * There is no tricuspid stenosis. * There is trace tricuspid regurgitation. * Right ventricular systolic pressure is normal. Aortic Valve * The aortic valve opens well. * No hemodynamically significant valvular aortic stenosis. * There is no significant aortic regurgitation. Pulmonic Valve * The pulmonic valve is not well visualized. Great Vessels * The aortic root and proximal ascending aorta are normal sized. Pericardium/Pleural * There is no pericardial effusion. Great Vessels * Normal inferior vena cava size and collapsability with sniff indicates a normal right atrial pressure of 3 mmHg MMode 2D Measurements and Calculations IVSd 1.1 cm IVSs 1.6 cm LVIDd 5.4 cm LVIDs 3.4 cm LVPWd 1.1 cm LVPWs 1.7 cm IVS/LVPW 1.0 FS 37.2 % EDV(Teich) 144.2 ml ESV(Teich) 48.2 ml EF(Teich) 66.6 % EDV(cubed) 161.7 ml ESV(cubed) 40.1 ml EF(cubed) 75.2 % % IVS thick 52.4 % % LVPW thick 62.0 % LV mass(C)d 228.4 grams LV mass(C)dI 109.7 grams/m\S\2 LV mass(C)s 225.8 grams LV mass(C)sI 108.4 grams/m\S\2 CO(Teich) 8.9 l/min CI(Teich) 4.3 l/min/m\S\2 SV(Teich) 96.1 ml SI(Teich) 46.1 ml/m\S\2 CO(cubed) 11.3 l/min CI(cubed) 5.4 l/min/m\S\2 SV(cubed) 121.6 ml SI(cubed) 58.4 ml/m\S\2 Ao root diam 4.4 cm Ao root area 15.1 cm\S\2 ACS 2.3 cm LA dimension 4.2 cm LA/Ao 0.97 LVAd ap4 33.5 cm\S\2 LVLd ap4 10.4 cm EDV(MOD-sp4) 89.0 ml LVAs ap4 15.0 cm\S\2 LVLs ap4 8.2 cm ESV(MOD-sp4) 24.0 ml EF(MOD-sp4) 73.0 % LVAd ap2 33.2 cm\S\2 LVLd ap2 9.6 cm EDV(MOD-sp2) 94.0 ml LVAs ap2 17.2 cm\S\2 LVLs ap2 8.1 cm ESV(MOD-sp2) 31.0 ml EF(MOD-sp2) 67.0 % CO(MOD-sp4) 6.0 l/min CI(MOD-sp4) 2.9 l/min/m\S\2 SV(MOD-sp4) 65.0 ml SI(MOD-sp4) 31.2 ml/m\S\2 CO(MOD-sp2) 5.9 l/min CI(MOD-sp2) 2.8 l/min/m\S\2 SV(MOD-sp2) 63.0 ml SI(MOD-sp2) 30.2 ml/m\S\2 Doppler Measurements and Calculations MV E max ravinder 92.9 cm/sec MV A max ravinder 75.6 cm/sec MV E/A 1.2 MV P1/2t max ravinder 86.4 cm/sec MV P1/2t 77.0 msec MVA(P1/2t) 2.9 cm\S\2 MV dec slope 328.6 cm/sec\S\2 MV dec time 0.25 sec Ao V2 max 110.3 cm/sec Ao max PG 4.9 mmHg Ao max PG (full) 0.65 mmHg LV V1 max PG 4.2 mmHg LV V1 max 102.7 cm/sec TR max ravinder 207.7 cm/sec
[2016-04-19] MEDS ORDERED: ACETAMINOPHEN 325 MG TAB PO PRN (18:15)
[2016-04-19] MEDS: CHLORDIAZEPOXIDE 25 MG CAP PO SCH (21:26)
[2016-04-19] MEDS: HYDROmorphone INJ 1 MG/ML SYR IV PRN (21:35)
[2016-04-20] VITALS (7 sets, daily range): BP systolic 100–126; BP diastolic 63–80; PULSE 91–112; TEMP 36.4–36.8; O2SAT 90–98
--- NOTE | 2016-04-20 06:57 | PROGRESS NOTE ---
DATE: 04/20/2016 HISTORY OF PRESENT ILLNESS: On ortho rounds, the patient seen late yesterday afternoon and this morning; he has no major issues with his vital signs ; he is stable, he is afebrile. His wound last evening looked clean, dry and intact. At this point in time, he is resting and we will not do a dressing change at this time. continue present support. WENDY
[2016-04-20 07:04] LABS: HEMATOCRIT 27.1 % (42-52); MEAN CELL VOLUME 96.1 fL (80-100); MEAN CORPUSCULAR HEMOGLOBIN 31.9 pg (25-34); MEAN CORPUSCULAR HGB CONC 33.2 g/dl (32-36); MEAN PLATELET VOLUME 9.2 fL (7.4-10.4); PLATELET COUNT 201 K/uL (130-400); RED BLOOD COUNT 2.82 M/uL (4.7-6.1); WHITE BLOOD COUNT 6.86 K/uL (4.8-10.8)
[2016-04-20 07:23] LABS: BUN/CREATININE RATIO 14.5 (10-20); CALCIUM 7.9 mg/dl (8.5-10.1); CREATININE 0.76 mg/dl (0.60-1.40); MAGNESIUM 2.2 mg/dl (1.8-2.4)
[2016-04-20] MEDS: METOPROLOL SUCC 50MG EXT REL TAB PO SCH (07:42)
[2016-04-20] MEDS: DOCUSATE SODIUM 100 MG CAP PO SCH ×2 (07:42→20:43)
[2016-04-20] MEDS: NEPHROCAPS PO SCH (07:42)
[2016-04-20] MEDS: FERROUS GLUCONATE 324 MG TAB PO SCH ×4 (07:42→18:22)
[2016-04-20] MEDS: ATORVASTATIN 20 MG TAB PO SCH (07:43)
[2016-04-20] MEDS: THIAMINE HCL 100 MG TAB PO SCH ×2 (07:43→20:32)
[2016-04-20] MEDS: VENLAFAXINE HCL XR 75 MG CAPXR PO SCH (07:43)
[2016-04-20] MEDS: OXCARBAZEPINE 150 MG TAB PO SCH ×2 (07:44→20:43)
[2016-04-20] MEDS: FLUTICASONE/SALMETEROL 100/50 (ADVAIR) 14 PUFF/1 INHALER INH SCH ×2 (07:46→20:42)
[2016-04-20] MEDS: PANTOprazole SOD 40 MG TAB PO SCH (07:46)
[2016-04-20] MEDS: MULTIVITAMIN TAB PO SCH (07:46)
[2016-04-20] MEDS: FLUTICASONE PROPIONATE NA SPR 16 GM BTL NAE SCH (07:47)
[2016-04-20] MEDS: ENOXAPARIN 40 MG/0.4 ML SYR SQ SCH (07:47)
[2016-04-20] MEDS: BOOST VANILLA PO SCH ×4 (07:51→20:42)
[2016-04-20] MEDS: CHLORDIAZEPOXIDE 25 MG CAP PO SCH (07:51)
[2016-04-20] MEDS: PREGABALIN 75 MG CAP PO SCH ×2 (07:51→20:32)
[2016-04-20] MEDS: OXYCODONE/ACETAMINOPHEN 5-325 TAB PO PRN (08:08)
--- NOTE | 2016-04-20 08:56 | Orthopedic Progress Note ---
Orthopedic Progress Note Date of Service Apr 20, 2016. 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 calves soft nontender, N/V intact, hip located, capillary refill less than 2 sec., dressing C/D/I, A&O x3, toes mobile, CMS intact Date Time Temp Pulse Resp B/P Pulse Ox O2 Delivery O2 Flow Rate FiO2 04/20/16 07:27 36.8 112 18 126/80 97 Room Air 04/20/16 04:00 Room Air 04/20/16 03:33 36.8 105 19 116/75 90 Room Air 04/20/16 00:51 36.6 99 17 115/72 91 Room Air 04/20/16 00:00 Room Air 04/19/16 20:00 Room Air 04/19/16 19:29 36.5 81 18 122/74 92 Room Air 04/19/16 16:00 Room Air 04/19/16 16:00 36.5 87 18 113/73 94 Room Air 04/19/16 13:45 36.5 86 18 122/68 97 04/19/16 12:45 36.7 89 20 120/64 96 04/19/16 12:00 36.8 97 20 130/68 97 Room Air 04/19/16 12:00 95 Room Air 2.0 04/19/16 11:45 36.6 91 18 132/84 04/19/16 11:45 36.5 91 18 138/88 93 04/19/16 11:17 36.6 87 18 122/80 96 04/19/16 11:11 36.5 94 18 108/68 93 Laboratory Results 24 Hours: Test 04/20/16 06:22 Hematocrit 27.1 % Hemoglobin 9.0 g/dL Assessment & Plan Assessment: post op day 5 s/p open reduction internal fixation of complex anirudh/ subtrochanteric femur fracture Plan: Continue post op care DVT prophylaxis with Lovenox Toe touch weightbearing right lower extremity with walker and assist Ice right hip Resume diet Dressing changed 04/18/16 Pain control with prescribed medications Continue PT/OT Continue to mobilize per mental status Medicine ordered PRBC's, H&H 7.7 & 23.0 Will monitor labs accordingly Will discuss further with Dr. Houston (1) Femur fracture, right Acute (2) Altered mental status Acute (3) Alcohol abuse Chronic (4) Anemia Acute (5) Tachycardia (6) History of hypertension (7) ZAK (acute kidney injury) (8) COPD (chronic obstructive pulmonary disease) Chronic (9) Hypotension
--- NOTE | 2016-04-20 09:10 | DIAGNOSTIC IMAGING REPORT ---
CT SCAN OF THE BRAIN WITHOUT IV CONTRAST CLINICAL HISTORY: Change in mental status. COMPARISON STUDY: CT of the right dated 09/04/2015. TECHNIQUE: Unenhanced axial CT scan of the brain is performed from the vertex to the skull base. Automated dose control exposure was utilized. CT DOSE: 614.27 mGy.cm FINDINGS: Brain parenchyma: There are mild age-related involutional changes noting minimal periventricular microangiopathic disease. There is no hemorrhage, mass effect, or evidence of acute territorial ischemia by CT criteria. Rodriguez-white matter is preserved. No extra-axial fluid collection is seen. Ventricles, sulci, cisterns: Prominent secondary to involutional change. Intracranial vasculature: There is mild after carotid calcification of the cavernous carotid arteries. Calvarium: Unremarkable. Sinuses and mastoids: There is mucosal thickening and secretions present in the left maxillary antrum. The remaining paranasal sinuses are clear. The mastoid air cells are well pneumatized. Orbits: The bony orbits are grossly intact. Soft tissues: A small metallic foreign body is present in the frontal scalp. IMPRESSION: There is no hemorrhage, mass effect, or evidence of acute territorial ischemia by CT criteria. Electronically signed by: Jack Santamaria M.D. 04/20/2016 9:08 AM Dictated Date/Time: 04/20/2016 9:04 AM
--- NOTE | 2016-04-20 11:29 | Progress Note ---
Subjective Date of Service: Apr 20, 2016. Subjective Pt evaluation today including: conversation w/ patient, conversation w/ family , physical exam, chart review, lab review, review of studies, review of inpatient medication list Voiding: marquez catheter in place, incontinence Nurse report patient has been confused, possible hallucination, some urinary incontinence, Marquez catheter placed per family request, not eating well, only had a few bite,s He looks a little bit more confused than yesterday, but know name, BD, and place , known granddaughter's name in the bedside, Complain right hip pain when moves Problem List Medical Problems: (1) Anemia Status: Acute (2) DVT (deep venous thrombosis) Status: Acute (3) Fall Status: Acute (4) Gout Status: Acute (5) Hyponatremia Status: Acute (6) Multiple rib fractures Status: Acute (7) Syncope Status: Acute Review of Systems Constitutional: + fatigue, + weakness, No chills, No fever Eyes: No diplopia, No discharge, No eye pain, No problem reported, No redness, No see HPI, No worsening of vision ENT: No dental problems, No hearing loss, No nasal symptoms, No problem reported, No see HPI, No sore throat, No tinnitus, No trouble swallowing, No unusual epistaxis Respiratory: No cough, No dyspnea at rest, No dyspnea on exertion, No hemoptysis, No problem reported, No see HPI, No shortness of breath, No sputum, No wheezing Cardiac: No PND, No chest pain, No claudication, No edema, No orthopnea, No palpitations, No problem reported, No see HPI Abdomen: No GI bleeding, No constipation, No diarrhea, No nausea, No pain, No problem reported, No see HPI, No vomiting Musculoskeletal: + joint pain Male : + incontinence Neurologic: + memory loss Psychiatric: No anhedonism, No anxiety, No depression symptoms, No insomnia, No problem reported, No see HPI, No substance abuse Heme: No abnormal bleeding/bruising, No clotting problems, No night sweats, No problem reported, No see HPI, No swollen lymph nodes Endo: No excessive thirst, No excessive urination, No fatigue, No problem reported, No see HPI Objective Vital Signs Date Time Temp Pulse Resp B/P Pulse Ox O2 Delivery O2 Flow Rate FiO2 04/20/16 08:00 Room Air 04/20/16 07:27 36.8 112 18 126/80 97 Room Air 04/20/16 04:00 Room Air 04/20/16 03:33 36.8 105 19 116/75 90 Room Air 04/20/16 00:51 36.6 99 17 115/72 91 Room Air 04/20/16 00:00 Room Air 04/19/16 20:00 Room Air 04/19/16 19:29 36.5 81 18 122/74 92 Room Air 04/19/16 16:00 Room Air 04/19/16 16:00 36.5 87 18 113/73 94 Room Air 04/19/16 13:45 36.5 86 18 122/68 97 04/19/16 12:45 36.7 89 20 120/64 96 04/19/16 12:00 36.8 97 20 130/68 97 Room Air 04/19/16 12:00 95 Room Air 2.0 04/19/16 11:45 36.6 91 18 132/84 04/19/16 11:45 36.5 91 18 138/88 93 Physical Exam General Appearance: WD/WN, no apparent distress, + pertinent finding (confused) Eyes: normal inspection, PERRL, EOMI, sclerae normal ENT: normal ENT inspection, hearing grossly normal, pharynx normal Neck: supple, no adenopathy, thyroid normal, no JVD, no carotid bruits, trachea midline Respiratory/Chest: chest non-tender, normal breath sounds, no respiratory distress, no accessory muscle use, + decreased breath sounds Cardiovascular: regular rate, rhythm, no edema, no gallop, no JVD, no murmur Abdomen: normal bowel sounds, non tender, soft, no organomegaly, no pulsatile mass Extremities: normal inspection, no pedal edema, no calf tenderness, normal capillary refill, pelvis stable, + pertinent finding (right hip in dress, bilateral lower extremity trace edema) 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, no motor/sensory deficits, alert, normal mood/affect, oriented x 3 Skin: normal color, warm/dry, no rash Lymphatic: no adenopathy Laboratory Results Last 24 Hours Test 04/20/16 06:22 04/20/16 10:01 White Blood Count 6.86 K/uL Red Blood Count 2.82 M/uL Hemoglobin 9.0 g/dL Hematocrit 27.1 % Mean Corpuscular Volume 96.1 fL Mean Corpuscular Hemoglobin 31.9 pg Mean Corpuscular Hemoglobin Concent 33.2 g/dl RDW Standard Deviation 58.5 fL RDW Coefficient of Variation 16.9 % Platelet Count 201 K/uL Mean Platelet Volume 9.2 fL Sodium Level 139 mmol/L Potassium Level 4.0 mmol/L Chloride Level 104 mmol/L Carbon Dioxide Level 26 mmol/L Anion Gap 9.0 mmol/L Blood Urea Nitrogen 11 mg/dl Creatinine 0.76 mg/dl Est Creatinine Clear Calc Drug Dose 109.0 ml/min Estimated GFR () 112.5 Estimated GFR (Non- 97.1 BUN/Creatinine Ratio 14.5 Random Glucose 74 mg/dl Calcium Level 7.9 mg/dl Magnesium Level 2.2 mg/dl Lab Scanned Report Blood Transfusion Assessment and Plan 65 yo male with history of alcohol abuse, HTN, smoking and anxiety/depression, admitted on 04/15/2016 because of severe right hip pain after falling on concrete walkway. x-ray showed a right hip fracture, he developed alcohol withdrawal confusion was in the ICU, was transferred to PCU on [id number] - Right comminuted, distracted, angulated overriding subtrochanteric fracture: s/p ORIF with lock troch nail long on 04/[address] Szymanski, POD #5 Continue pain control , activity level, changed Lovenox 30 mg bid to 40mg subcutaneous daily on 04/19/2016 for DVT prophylaxis , per orthopedic will allow touchdown weightbearing when cooperative. significant amount of acute blood loss anemia, H&H has been stable, but in the lower side, total got 5 unit PRBC Send anemia panel includes stool Hemoccult vitamin B12 and folate acid Was Hypotension upon admission: multifactorial but most likely from hemorrhagic shock, significant blood loss both with the fracture and then in the OR, resolved Blood transfusion totally 5 units EKG without ischemia or infarction, normal troponin UO fair - Acute blood loss anemia from surgery and hip fracture, see above - Acute renal failure: certainly due to hypovol and blood loss, prerenal, creatinine is normalizing - Alcohol abuse: reports > 6 drinks per day, has been on CIVA protocol, continue CIWA protocol, has been improving No obvious which was symptoms such as sweating, tremor, agitation, hypertension , tachycardia Started Librium 25 mg by mouth twice a day, will change to 15 mg by mouth twice a day today Continue thiamine, folate, vitamin B1, continue Ativan per protocol Altered mental status and confusion and cognition decreased, History of stroke was sent to [facility] several months ago I feel mental status changes could be from multiple factorial, such as all medicine for alcohol withdrawal such as Librium intake, brain damages from long- term alcohol intake, and recent stroke, ot else. I ordered a brain MRI yesterday, but patient not able to tolerate it because of recent history of fracture and has metal locally, I check head CT this morning was not remarkable , I'm checking ammonia levels, he has history of long-term alcohol intake, however liver function looks good, there is no signs of liver failure ( no thrombocytopenia, no abnormal liver function test, no elevated total bili level) , have neurology consultation - Tobacco abuse: nebulizers PRN for dyspnea, nicotine patch - HTN: Continue follow-up - Hyperlipidemia: Lipitor - GERD: Protonix - Anxiety/Depression: Effexor and Trileptal - Neuropathy: Lyrica - Malnutrition with low pre-albumin, will continue watch dietitian consult if needed Obtain medical records from [facility], regarding recent admission for stroke discussed with nurse, and patient's granddaughter in bedside , answer on the questions Continued [facility] stay due to: multiple IV medications needed Discharge planning: rehab hospital
[2016-04-20] MEDS ORDERED: LORAZEPAM INJ 1 MG in SYRINGE 0.5 ML IV SCH (16:00)
[2016-04-20] MEDS: CHLORDIAZEPOXIDE 5 MG CAP PO SCH (20:32)
[2016-04-21] VITALS: BP 120/79; PULSE 99; TEMP 37.1; O2SAT 92
--- NOTE | 2016-04-21 06:56 | ORTHOPEDICS PROGRESS NOTE ---
DATE: 04/21/2016 At this point in time the patient is resting comfortably in bed. He is very lucid this morning. He notes that he has no chest pain, shortness of breath, fever or chills. Vital signs are stable. He is afebrile. T-max 37.1. ABDOMEN: Soft. EXTREMITIES: Calf is bilaterally, nontender. Neurovascularly check both upper and lower extremities nonfocal. Right Thigh is softening up. Lateral wound right lower extremity, the dressing was removed and was replaced with an inadequate small dressing. There is scant serous drainage. ASSESSMENT: Overall, doing better with his multiple medical problems including metabolic encephalopathy, alcohol abuse, peripheral neuropathy, history of diskitis, status post ORIF right femur fracture, subtrochanteric peritrochanteric. PLAN: At this point in time is to start to mobilize since he is now more lucid. Ordered PT, OT and physiatry consults. Placement per medicine. Likely would be best in a skilled facility with PT or a rehab hospital. We will get an evaluation by rehab and see how he fits into the criteria. Hopefully he will go to the rehab hospital. Will follow daily. With dressing change we will have the PA's put on an appropriate compressive dressing for his thigh to provide wound support and to minimize serous drainage, especially with him on Lovenox. WENDY
[2016-04-21] MEDS: FERROUS GLUCONATE 324 MG TAB PO SCH ×3 (08:43→17:25)
[2016-04-21] MEDS: DOCUSATE SODIUM 100 MG CAP PO SCH ×2 (08:43→21:56)
[2016-04-21] MEDS: NEPHROCAPS PO SCH (08:43)
[2016-04-21] MEDS: ATORVASTATIN 20 MG TAB PO SCH (08:43)
[2016-04-21] MEDS: METOPROLOL SUCC 50MG EXT REL TAB PO SCH (08:44)
[2016-04-21] MEDS: THIAMINE HCL 100 MG TAB PO SCH ×2 (08:47→21:58)
[2016-04-21] MEDS: FLUTICASONE/SALMETEROL 100/50 (ADVAIR) 14 PUFF/1 INHALER INH SCH ×2 (08:47→21:55)
[2016-04-21] MEDS: OXCARBAZEPINE 150 MG TAB PO SCH ×2 (08:48→21:57)
[2016-04-21] MEDS: VENLAFAXINE HCL XR 75 MG CAPXR PO SCH (08:48)
[2016-04-21] MEDS: FLUTICASONE PROPIONATE NA SPR 16 GM BTL NAE SCH (08:49)
[2016-04-21] MEDS: PANTOprazole SOD 40 MG TAB PO SCH (08:49)
[2016-04-21] MEDS: MULTIVITAMIN TAB PO SCH (08:49)
[2016-04-21] MEDS: ENOXAPARIN 40 MG/0.4 ML SYR SQ SCH (08:51)
[2016-04-21] MEDS: PREGABALIN 75 MG CAP PO SCH (09:01)
[2016-04-21] MEDS: BOOST VANILLA PO SCH ×4 (09:03→21:59)
[2016-04-21] MEDS: CHLORDIAZEPOXIDE 5 MG CAP PO SCH (09:03)
[2016-04-21 09:09] VITALS: BP 146/85; PULSE 93; TEMP 36.4; O2SAT 97
--- NOTE | 2016-04-21 09:46 | Progress Note ---
Orthopedic SOAP Note Subjective Date of Service: Apr 21, 2016. Post OP Day: 6 Reports: feeling well (reports feeling better overall but still rather difficult to hold lengthy conversations with), pain controlled w PO medications , Denies: SOB, calf pain, chest pain, complaints, light headedness, nausea / vomiting, using DEFENSE ATTORNEY Problem List Medical Problems: (1) Anemia Status: Acute (2) DVT (deep venous thrombosis) Status: Acute (3) Fall Status: Acute (4) Gout Status: Acute (5) Hyponatremia Status: Acute (6) Multiple rib fractures Status: Acute (7) Syncope Status: Acute Objective calves soft nontender, N/V intact, capillary refill less than 2 sec., dressing C /D/I (dressing from 04/20/16 does have serous drainage on it, nothing excessive at this point, I placed a new comrpessive dressing over incision, avoided areas of irritation from adhesive), incision C/D/I, A&O x3 (patient able to be aroused and follow commands but continues to be rather drowsy/confused ), toes mobile, CMS intact Date Time Temp Pulse Resp B/P Pulse Ox O2 Delivery O2 Flow Rate FiO2 04/21/16 09:09 36.4 93 18 146/85 97 Room Air 04/21/16 00:00 37.1 99 20 120/79 92 Room Air 04/20/16 23:30 Room Air 04/20/16 18:01 Room Air 04/20/16 17:43 36.8 91 19 101/66 98 Room Air 04/20/16 16:47 36.4 94 20 94 2.0 04/20/16 16:00 Room Air 04/20/16 15:18 36.4 94 20 100/63 94 04/20/16 12:00 Room Air 04/20/16 11:55 36.8 110 18 123/80 93 Room Air Assessment post op day 6 s/p open reduction internal fixation of complex anirudh/ subtrochanteric femur fracture Plan Continue post op care DVT prophylaxis with Lovenox Toe touch weightbearing right lower extremity with walker and assist Ice right hip Resume diet Dressing changed 04/21/16 Pain control with prescribed medications Continue PT/OT, physiatry consult placed Continue to mobilize per mental status Will monitor labs accordingly Will discuss further with Dr. Houston eligibility services representative aware of request for transfer
[2016-04-21] MEDS: MAGNESIUM HYDROXIDE SUSP 30 ML UDC PO PRN (10:38)
--- NOTE | 2016-04-21 10:46 | Neurology Consultation ---
Neurology Consultation Date of Consultation: Apr 21, 2016. Attending Physician: Ismael Lehman MD, PhD Primary Care Physician: Jakob Cage M.D. Reason for Consultation: Confusion History of Present Illness The patient is a 65-year-old male who is known to me. He has a history of peripheral neuropathy likely related to chronic alcohol abuse. He is prescribed Lyrica for chronic neuropathic pain. The patient continues to consume significant amounts of alcohol. He was admitted to the hospital after fall while taking out his [place] tree. He fractured his right hip in the context of this fall and underwent surgical fixation 6 days ago. He has exhibited confusion and fluctuating attentiveness during this hospitalization and has been treated for possible alcohol withdrawal symptoms. I reviewed the images and radiologist's interpretation of a CT of the head completed yesterday. The study is negative for hemorrhage or acute process. There is evidence of mild age related changes including chronic small vessel ischemic disease. No gross parenchymal abnormalities observed. The patient has not had a significant fever. He is anemic related to blood loss and has received a transfusion. He has been receiving his Lyrica as well as other prescribed medications for chronic neuropathic pain. The patient was a bit difficult to arouse this morning. He has a limited historian and does not offer any spontaneous complaints. See examination for further details. Past Medical/Surgical History Medical Problems: (1) Anemia Status: Acute (2) DVT (deep venous thrombosis) Status: Acute (3) Fall Status: Acute (4) Gout Status: Acute (5) Hyponatremia Status: Acute (6) Multiple rib fractures Status: Acute (7) Syncope Status: Acute Family History Noncontributory Social History Smokeless Tobacco Use: No Alcohol Use: daily. Drug Use: none Marital Status: Housing Status: lives with family Occupation Status: unemployed Allergies Coded Allergies: No Known Allergies (Unverified , 03/06/16) Current Inpatient Medications Current Inpatient Medications Medications (Trade) Dose Ordered Sig/Feroz Route Start Time Stop Time Status Last Admin Dose Admin Atorvastatin Calcium (Lipitor Tab) 40 mg QAM PO 04/15/16 09:00 05/15/16 08:59 04/21/16 08:43 40 MG Fluticasone Propionate (Flonase Nasal [place]) 2 sprays DAILY HOSSEIN 04/15/16 09:00 05/15/16 08:59 04/21/16 08:49 2 SPRAYS Folic Acid (Folvite Tab) 1 mg QAM PO 04/15/16 09:00 05/15/16 08:59 04/21/16 08:48 1 MG Oxcarbazepine (Trileptal Tab) 300 mg BID PO 04/14/16 21:00 05/14/16 20:59 04/21/16 08:48 300 MG Pregabalin (Lyrica Cap) 75 mg BID PO 04/14/16 21:00 05/14/16 20:59 04/21/16 09:01 75 MG Thiamine HCl (Vitamin B-1 Tab) 100 mg BID PO 04/14/16 21:00 05/14/16 20:59 04/21/16 08:47 100 MG Venlafaxine HCl (effeXOR EXTENDED REL CAP) 150 mg QAM PO 04/15/16 09:00 05/15/16 08:59 04/21/16 08:48 150 MG Salmeterol Xinafoate/ Fluticasone (Advair Diskus 100/50 Inh) 1 puff BID INH 04/14/16 21:00 05/14/16 20:59 04/21/16 08:47 1 PUFF Levalbuterol (Xopenex 1.25MG/ 0.5ML Neb) 1.25 mg Q2H PRN INH 04/14/16 21:30 05/14/16 21:29 Magnesium Hydroxide (Milk Of Magnesia Susp) 30 ml Q6H PRN PO 04/15/16 13:00 05/15/16 12:59 04/18/16 14:00 30 ML Bisacodyl (Dulcolax Supp) 10 mg DAILY PRN MD 04/15/16 13:00 05/15/16 12:59 Sodium Biphosphate/ Sodium Phosphate (Fleet Enema) 132 ml DAILY PRN MD 04/15/16 13:00 05/15/16 12:59 Docusate Sodium (coLACE CAP) 100 mg BID PO 04/15/16 21:00 05/15/16 20:59 04/21/16 08:43 100 MG Al Hydrox/Mg Hydrox/Simethicone (Maalox Max Susp) 15 ml Q4H PRN PO 04/15/16 13:00 05/15/16 12:59 Multivitamins (Multivitamin Tab) 1 tab QAM PO 04/16/16 09:00 05/16/16 08:59 04/21/16 08:49 1 TAB Ferrous Gluconate (Ferrous Gluconate Tab) 324 mg TIDM PO 04/15/16 16:45 05/15/16 17:44 04/21/16 08:43 324 MG Pantoprazole Sodium (Protonix Tab) 40 mg QAM PO 04/16/16 09:00 05/16/16 08:59 04/21/16 08:49 40 MG Miscellaneous (Iv Fluids Completed) 1 ea PRN PRN N/A 04/15/16 15:00 04/15/17 14:59 Metoprolol Succinate (Toprol Xl Tab) 50 mg QAM PO 04/19/16 09:00 05/19/16 08:59 04/21/16 08:44 50 MG Oxycodone/ Acetaminophen (Percocet 5-325mg Tab) `1-2 tabs for pain 1 tab ... Q4H PRN PO 04/18/16 10:45 05/02/16 10:44 04/20/16 08:08 2 TAB Enteral Nutritional Formula (Boost) 1 can BID PO 04/18/16 21:00 05/18/16 20:59 04/21/16 09:03 1 CAN Acetaminophen (Tylenol Tab) 650 mg Q4H PRN PO 04/19/16 18:15 05/19/16 18:14 Zolpidem Tartrate (Ambien Tab) 5 mg HSZ PRN PO 04/18/16 18:15 05/18/16 18:14 Ondansetron HCl (Zofran Inj) 4 mg Q6H PRN IV 04/18/16 18:15 05/18/16 18:14 Vitamin B Complex/ Vit C/Folic Acid (Nephrocaps) 1 cap QAM PO 04/18/16 19:00 05/18/16 18:59 04/21/16 08:43 1 CAP Ipratropium Suches (Atrovent 0.02% 0.5MG/2.5ML Neb) 0.5 mg Q2H PRN INH 04/18/16 18:15 05/18/16 18:14 Oxycodone/ Acetaminophen (Percocet 5-325mg Tab) 1-2 TABLETS 1 TABLET ... Q6H PRN PO 04/18/16 18:15 05/02/16 18:14 Morphine Sulfate (MoRPHine SULFATE INJ) 2 mg Q1HWA PRN IV 04/18/16 18:15 05/02/16 18:14 Hydromorphone HCl (Dilaudid Inj) 1 mg Q2H PRN IV 04/18/16 19:00 05/02/16 18:59 04/19/16 21:35 1 MG Hydromorphone HCl (Dilaudid Inj) 0.5 mg Q2H PRN IV 04/18/16 19:00 05/02/16 18:59 Enoxaparin Sodium (Lovenox Inj) 40 mg QAM SQ 04/20/16 09:00 05/20/16 08:59 04/21/16 08:51 40 MG Chlordiazepoxide (Librium Cap) 15 mg Q12 PO 04/20/16 21:00 05/20/16 20:59 04/21/16 09:03 15 MG Review of Systems The patient denies headache, fever, vision loss, or dizziness. He is unable to provide a very reliable review of systems, however, due to poor attention. Physical Exam Vital Signs (Past 24 Hrs): Date Time Temp Pulse Resp B/P Pulse Ox O2 Delivery O2 Flow Rate FiO2 04/21/16 09:09 36.4 93 18 146/85 97 Room Air 04/21/16 00:00 37.1 99 20 120/79 92 Room Air 04/20/16 23:30 Room Air 04/20/16 18:01 Room Air 04/20/16 17:43 36.8 91 19 101/66 98 Room Air 04/20/16 16:47 36.4 94 20 94 2.0 04/20/16 16:00 Room Air 04/20/16 15:18 36.4 94 20 100/63 94 04/20/16 12:00 Room Air 04/20/16 11:55 36.8 110 18 123/80 93 Room Air The patient opens his eyes to voice. He recognizes me and appropriately identifies me as his neurologist. He is mildly agitated. The patient is lethargic and oriented to hospital, month, and year. He exhibits impaired attention and concentration. He is able to name objects, repeat phrases, and read text. Remote memory intact. He does have some difficulty with recent memory testing in the context of his attentional difficulty. Vocabulary normal. Visual wong full to confrontation. Visual acuity normal. Pupils equal round reactive to light and accommodation. Eye movements normal. No nystagmus. Facial sensation intact. There is no facial droop or facial weakness. Palate elevates to midline. Tongue protrudes to midline. Shoulder shrug and hearing intact. Sensation to vibration is impaired in a length dependent fashion bilaterally. Light touch, temperature, and proprioception intact for the upper and lower limbs. Deep tendon reflexes are diminished throughout. Plantar responses silent. Patient withdraws both lower limbs to plantar stimulation. There is no dysmetria with finger to nose bilaterally. No dysmetria with heel to diaz on the left. Unable to perform heel to diaz on the right due to right hip pain. The patient does not cooperate adequately for ophthalmoscopic examination. There are no carotid bruits to auscultation. There is moderate edema of the right lower extremity. Temperature and color appear normal. Musculoskeletal examination is somewhat limited, especially pertaining to the right lower extremity. Strength for the upper limbs is intact and full for both upper limbs proximally and distally. Strength for the left lower limb is normal as well. Muscle tone normal for the upper and lower limbs. There is no atrophy. The patient exhibits a mild postural and action tremor of the hands bilaterally. There is no myoclonus. Gait cannot be tested. Laboratory Results Past 24 Hours: Test 04/20/16 12:07 Ammonia 26.0 umol/L (11-32) Impression Mild encephalopathy characterized by lethargy, fluctuating attention, and mild agitation. These symptoms have been improving gradually. Alcohol withdrawal certainly a potential contributing factor in this patient. I do not find any evidence of a significant BOTTOM STOP ATTACHER process such as stroke, hemorrhage, encephalitis, or seizures. Plan Case discussed with Dr. Lehman. If this patient is able to tolerate a brain MRI it may be reasonable to proceed with this study to further exclude an acute stroke. However, my clinical suspicion for this diagnosis is low. I do not really have any further evaluation or treatment recommendations for this patient. Continue current supportive medical care. Please contact me if I may be of further assistance.
--- NOTE | 2016-04-21 11:18 | REHAB PROGRESS NOTE ---
DATE: 04/21/2016 DATE: 04/21/2016. Mr. Barnse's chart was reviewed in the medical records department. He is status post an admission to [facility] on the medical service along with Dr. Houston having suffered a mechanical fall with a right femur subtrochanteric, intertrochanteric fracture with associated femoral nerve injury. He is status post open reduction internal fixation. He is followed closely by orthopedic medical service. He is ready for inpatient rehabilitation. The patient has been referred to [facility] for evaluation and insurance authorization is necessary. If he meets all criteria he will be accepted for inpatient rehabilitation once cleared by medical and surgery service. I have spoken to the [facility] admitting department to expedite transfer once cleared by medicine surgery.
[2016-04-21] MEDS ORDERED: OXYC-57 PO (13:42)
[2016-04-21] MEDS ORDERED: LVNIS40 SQ ×2 (13:42→14:16)
--- NOTE | 2016-04-21 14:15 | Discharge Instructions ---
Discharge Instructions Admission Reason for Admission: Femur Fracture, Right Discharge Discharge Diagnosis / Problem: s/p ORIF anirudh/subtrochanteric femur fracture Discharge Goals Goal(s): Decrease discomfort, Improve function, Increase independence Activity Recommendations Activity Level: Up Ad Jacinda, Ambulates in room, Self Positioning, OOB In Chair, Assistance Required Therapies: Physical Therapy, Weight Bearing Status (toe touch weightbearing right lower extremity ), Occupational Therapy Weightbearing Status: Right toe touch Lifting Limitations: none Exercise/Sports Limitations: none Shower/Bathe: keep incision dry . Additional Information Patient informed of condition: Yes Advance Directives: No DNR: No Level of Care: Acute Rehab Communicable Disease: No Prognosis: Stable Farrell Catheter: No Instructions / Follow-Up Instructions / Follow-Up New Medicine: * You will likely be taking one or more of these medications: 1. Percocet - Take, as directed, when you need it, every four to six hours to control your pain. 2. Iron Sulfate - Take three times each day for the month after surgery to help you replace the blood lost during surgery. 3. Lovenox- Thins your blood to lessen the chance of forming a blood clot. * The most common side effects of pain medicine and iron are nausea and constipation. If nausea or constipation is too much of a problem or if you have any questions about your new medicines or doses, call [facility] at . We will try to help you manage these issues. VERY IMPORTANT TO READ AND REVIEW" Pain: * The immediate post-operative period after surgery is often quite painful. * You are given a prescription for pain medicine. You should take it, as directed, when you need it, especially before physical therapy and before going to bed. Pain that interferes with sleep is very common and can last several months. * You will likely need pain medicine for the first four to six weeks. It will not stop all of the pain. The pain will lessen and as you feel better, you may change to milder pain medicine such as Tylenol. * The most common side effects of pain medicine are nausea and constipation, so don't take more than you need. Physical Therapy: * You will have physical therapy two or three times each week for four to six weeks after your surgery * Taking a pain pill an hour before therapy can help you have a more productive and comfortable therapy session if needed. SELF CARE INSTRUCTIONS AFTER SURGERY A. You may need to continue a physical therapy program after discharge from the hospital. There are several options available to you. Your doctor will assist you in selecting the best one for you. 1. An out-patient facility 2 to 3 times a week for therapy or home therapy. 2. Continue working on all exercises taught to you in the hospital. Your goals should be to increase bending of your knee to 90 degrees and beyond and to fully straighten your knee. B. You may toe touch weightbear with walker right lower extremity C. Rest with leg elevation is very important. Use the ice wrap frequently for the first 3-4 weeks. D. You may ride in a car, shop, participate in nsh teacher and all social activities. E. Wear the long elastic stockings (SREE hose) 20 hours a day for six weeks after surgery. They can be removed several times a day for laundering and for a shower. VERY IMPORTANT TO READ AND REVIEW A. Take Lovenox (blood thinning medications) as directed by your doctor. B. There are a few signs you need to watch for after you are home. Call [facility] if you notice any of the followin. Increased severe knee pain. Some pain is expected especially when you exercise. 2. Increased swelling in your leg or knee; pain or swelling of the calf muscle in either lower leg. 3. Any fluid drainage from the incision. 4. Shortness of breath or chest pain. C. Please call [facility] at if you have any concerns or questions about your operation or recovery. The doctor or his nurse will return your call promptly. * CALL IF INCREASED PAIN, REDNESS, DRAINAGE OR FEVER GREATER THAT 101. * Sutures should be removed 12-14 days after surgery unless you are on chronic steriods, then it will be 14-18 days after surgery. Call your doctor if: * Temperature above 101 degrees F. * Pain not relieved by pain medicine ordered. * Increased drainage or redness from incision. * Notify your doctor with any questions or concerns. Please follow up at [facility] on 05/01/[address] Houston's physician care team assistant, Jd Guidry for staple removal and post- operative check. Current Hospital Diet Patient's current hospital diet: Regular Diet Discharge Diet Recommended Diet: Regular Diet Procedures Procedures Performed: Right ORIF Subtrochanteric Intramedullary Erick Femur Pending Studies Studies pending at discharge: no Physician Orders On Transfer Dressing Changes: Please perform daily dressing changes and keep incisions covered with compressive dressing, 4x4's, ABD, and metapore or papertape. POLST Discussion: without POLST completion Medical Emergencies . Who to Call and When: Medical Emergencies: If at any time you feel your situation is an emergency, please call 911 immediately. . Non-Emergent Contact Non-Emergency issues call your: Primary Care Provider . . "Provider Documentation" section prepared by Mayank Barriga. Core Measure Problem Core Measures: VTE VTE Core Measures VTE Diagnosis: (1) Femur fracture, right Date of VTE Diagnosis: Apr 21, 2016 Time of VTE Diagnosis: 14:14 Reason no anticoag overlap I/P: Treatment provided - N/A Reason no anticoag overlap @DC: Treatment provided - N/A [place] Drug Monitoring Program Search Results: no issues identified
--- NOTE | 2016-04-21 15:19 | Progress Note ---
Subjective Date of Service: Apr 21, 2016. Subjective Pt evaluation today including: conversation w/ patient, conversation w/ family , physical exam, chart review, lab review, review of studies, conversation w/ spa consultant, review of inpatient medication list he is now more lucid and more interactive, no complaint Problem List Medical Problems: (1) Anemia Status: Acute (2) DVT (deep venous thrombosis) Status: Acute (3) Fall Status: Acute (4) Gout Status: Acute (5) Hyponatremia Status: Acute (6) Multiple rib fractures Status: Acute (7) Syncope Status: Acute Review of Systems Constitutional: + fatigue, + weakness, No chills, No fever, No problem reported , No sweats, No weight loss Eyes: No diplopia, No discharge, No eye pain, No redness, No worsening of vision ENT: No dental problems, No hearing loss, No nasal symptoms, No sore throat, No tinnitus, No trouble swallowing, No unusual epistaxis Respiratory: No cough, No dyspnea at rest, No dyspnea on exertion, No hemoptysis, No shortness of breath, No sputum, No wheezing Cardiac: No PND, No chest pain, No claudication, No edema, No orthopnea, No palpitations Abdomen: No constipation, No diarrhea, No nausea, No pain, No vomiting Musculoskeletal: + joint pain, No calf pain, No muscle pain, No swelling Male : No dysuria, No hematuria, No incontinence, No nocturia more than once/ night, No slowing stream, No urinary frequency Neurologic: No balance problems, No memory loss, No numbness/tingling, No paralysis, No vertigo, No weakness Psychiatric: No anhedonism, No anxiety, No depression symptoms, No insomnia, No substance abuse Heme: No abnormal bleeding/bruising, No clotting problems, No night sweats, No swollen lymph nodes Endo: No excessive thirst, No excessive urination, No fatigue Skin: No bleeding, No color change, No itch, No new/changing skin lesions, No rash Objective Vital Signs Date Time Temp Pulse Resp B/P Pulse Ox O2 Delivery O2 Flow Rate FiO2 04/21/16 09:09 36.4 93 18 146/85 97 Room Air 04/21/16 09:00 Room Air 04/21/16 00:00 37.1 99 20 120/79 92 Room Air 04/20/16 23:30 Room Air 04/20/16 18:01 Room Air 04/20/16 17:43 36.8 91 19 101/66 98 Room Air 04/20/16 16:47 36.4 94 20 94 2.0 04/20/16 16:00 Room Air 04/20/16 15:18 36.4 94 20 100/63 94 Physical Exam General Appearance: WD/WN, no apparent distress, + pertinent finding (chronic ill-looking tired) Eyes: normal inspection, PERRL, EOMI, sclerae normal ENT: normal ENT inspection, hearing grossly normal, pharynx normal Neck: supple, no adenopathy, thyroid normal, no JVD, no carotid bruits, trachea midline Respiratory/Chest: chest non-tender, no respiratory distress, no accessory muscle use, + decreased breath sounds Cardiovascular: regular rate, rhythm, no edema, no gallop, no JVD, no murmur Abdomen: normal bowel sounds, non tender, soft, no organomegaly, no pulsatile mass Extremities: non-tender, normal inspection, no pedal edema, no calf tenderness , normal capillary refill, pelvis stable Neurologic/Psychiatric: electro mechanical assembler II-XII nml as tested, no motor/sensory deficits, alert, normal mood/affect, oriented x 3 Skin: normal color, warm/dry, no rash Lymphatic: no adenopathy Assessment and Plan 65 yo male with history of alcohol abuse, HTN, smoking and anxiety/depression, admitted on 04/15/2016 because of severe right hip pain after falling on concrete walkway. x-ray showed a right hip fracture, he developed alcohol withdrawal confusion was in the ICU, was transferred to PCU on [id number] - Right comminuted, distracted, angulated overriding subtrochanteric fracture: s/p ORIF with lock troch nail long on 04/[address] Szymanski, POD #6 Continue pain control , activity level, changed Lovenox 30 mg bid to 40mg subcutaneous daily on 04/19/2016 for DVT prophylaxis , per orthopedic will allow touchdown weightbearing when cooperative. Stable and continued to improve significant amount of acute blood loss anemia, H&H has been stable, but in the lower side, total got 5 unit PRBC Send anemia panel includes stool Hemoccult vitamin B12 and folate acid Was Hypotension upon admission: multifactorial but most likely from hemorrhagic shock, significant blood loss both with the fracture and then in the OR, resolved Blood transfusion totally 5 units EKG without ischemia or infarction, normal troponin UO fair - Acute blood loss anemia from surgery and hip fracture, see above - Acute renal failure: certainly due to hypovol and blood loss, prerenal, creatinine is normalizing - Alcohol abuse: reports > 6 drinks per day, has been on CIVA protocol, has been improving , i discontinue CIWA protocol, I also discontinue the prion today because he has passed withdrawal window and currently has no signs of any withdrawal Continue thiamine, folate, vitamin B1 Altered mental status and confusion and cognition decreased, possible deconditioning History of osteomyelitis in the spine was sent to [facility] several months ago, family reported he has history of stroke, actually that was not a stroke was no history of osteomyelitis after a check the medical record from [facility] mental status changes could be from multiple factorial, such as oral medicine for alcohol withdrawal, brain damages from long-term alcohol intake, or dementia. I ordered a brain MRI y but patient not able to tolerate it because of recent history of fracture and has metal locally, I check head CT this morning was not remarkable, I'm checking ammonia levels, he has history of long-term alcohol intake, however liver function looks good, there is no signs of liver failure ( no thrombocytopenia, no abnormal liver function test, no elevated total bili level), discussed with neurologist, he agreed with me, no further input - Tobacco abuse: nebulizers PRN for dyspnea, nicotine patch - HTN: Continue follow-up - Hyperlipidemia: Lipitor - GERD: Protonix - Anxiety/Depression: Effexor and Trileptal - Neuropathy: Lyrica - Malnutrition with low pre-albumin, will continue watch dietitian consult if needed medical records from [facility], was reviewed, Possible rehabilitation facility T over the weekend Continued [facility] stay due to: multiple IV medications needed Discharge planning: rehab hospital
[2016-04-21 16:01] VITALS: BP 133/79; PULSE 100; TEMP 37.1; O2SAT 97
[2016-04-21] MEDS: HYDROmorphone INJ 0.5 MG/0.5 ML SYR IV PRN (17:25)
[2016-04-21] MEDS: HYDROmorphone INJ 1 MG/ML SYR IV PRN (19:24)
[2016-04-21 23:00] VITALS: BP 101/66; PULSE 96; TEMP 36.6; O2SAT 97
[2016-04-22] VITALS (7 sets, daily range): BP systolic 113–157; BP diastolic 74–98; PULSE 93–106; TEMP 36.5–38.2; O2SAT 93–97
[2016-04-22] MEDS: HYDROmorphone INJ 0.5 MG/0.5 ML SYR IV PRN (04:07)
[2016-04-22] MEDS: FERROUS GLUCONATE 324 MG TAB PO SCH ×3 (09:21→18:12)
[2016-04-22] MEDS: FLUTICASONE PROPIONATE NA SPR 16 GM BTL NAE SCH (09:22)
[2016-04-22] MEDS: NEPHROCAPS PO SCH (09:22)
[2016-04-22] MEDS: THIAMINE HCL 100 MG TAB PO SCH ×2 (09:22→23:00)
[2016-04-22] MEDS: FLUTICASONE/SALMETEROL 100/50 (ADVAIR) 14 PUFF/1 INHALER INH SCH ×2 (09:23→22:59)
[2016-04-22] MEDS: ATORVASTATIN 20 MG TAB PO SCH (09:24)
[2016-04-22] MEDS: MULTIVITAMIN TAB PO SCH (09:24)
[2016-04-22] MEDS: DOCUSATE SODIUM 100 MG CAP PO SCH ×2 (09:24→23:00)
[2016-04-22] MEDS: VENLAFAXINE HCL XR 75 MG CAPXR PO SCH (09:24)
[2016-04-22] MEDS: OXCARBAZEPINE 150 MG TAB PO SCH ×2 (09:24→23:00)
[2016-04-22] MEDS: PANTOprazole SOD 40 MG TAB PO SCH (09:25)
[2016-04-22] MEDS: ENOXAPARIN 40 MG/0.4 ML SYR SQ SCH (09:25)
[2016-04-22] MEDS: METOPROLOL SUCC 50MG EXT REL TAB PO SCH (09:30)
[2016-04-22] MEDS: BOOST VANILLA PO SCH ×4 (09:30→21:34)
[2016-04-22] MEDS: OXYCODONE/ACETAMINOPHEN 5-325 TAB PO PRN (09:31)
--- NOTE | 2016-04-22 10:44 | PROGRESS NOTE ---
DATE: 04/22/2016 The patient is resting comfortably in bed, is arousable. He recognizes who I am. He notes that he tries to have conversations but has a shallow depth of recall. Oriented to person and place. Vital signs are stable. He is afebrile. Wound dressing clean, dry and intact. Neurovascular check nonfocal, moves all 4 extremities. He is now being able to just about start to lift his right lower extremity. ASSESSMENT: Status post open reduction internal fixation, anirudh/subtrochanteric femur fracture. Much more comfortable, could log roll, can actually load the leg manually with no pain, when he is distracted, he does not even realize that he is loading the leg. He is now also getting close to starting to lift the leg. PLAN: At this point in time is to continue manual medical support for his metabolic encephalopathy and his alcohol dependency issues. At this point, he is getting close to be able to bear weight on his legs, he should be careful that he will not start to roam. He may need one-on-one nursing. Discontinue Dilaudid. Use oral pain medication only. Continue efforts for placement to rehab.
[2016-04-22] MEDS ORDERED: OLANZAPINE ZYDIS 5 MG ORALLY DIS. TAB PO PRN (10:45)
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
[2016-04-22] MEDS ORDERED: LORAZEPAM 1 MG TAB PO PRN (12:15)
--- NOTE | 2016-04-22 13:01 | CONSULTATION REPORT ---
DATE OF CONSULTATION: 04/22/2016 DATE OF CONSULTATION: 04/22/2016. IDENTIFYING DATA: Lauro Barnes is a 65-year-old gentleman from [facility], admitted to the hospital 04/15/2016 following a fall resulting in a fractured hip. We are consulted due to delirium. Information is gathered from the electronic medical record, the patient's , and to a lesser degree the patient. CHIEF COMPLAINT: "Delirium". HISTORY OF PRESENT ILLNESS: Lauro Barnes is a 65-year-old gentleman with medical conditions including hypertension, COPD, seizure history, peripheral neuropathy secondary to alcohol abuse and GPN who on the day of admission, experienced a fall while trying to take Génesis tree out. He apparently fell backwards onto his butt and did hit his head slightly. He presented to the ER because of pain and was found to have a comminuted subtrochanteric right femur fracture. He was taken to the OR by Dr. Houston. Apparently, he has been confused through the majority of his hospitalization. He is a known alcoholic and they had been giving him Ativan and Librium and he was even provided some beer while he was in ICU. Benzodiazepines were discontinued yesterday and this morning the patient became agitated and according to Dr. Lehman's notes, was more confused than usual and appeared to be hallucinating. At the time we see the patient, he is lying in bed. He has very long latencies to his responses and it is not clear to me whether he does not hear me or whether he is thinking. Nonetheless, it takes time to get any information out of him. He is oriented to person and year but cannot even guess at the month. He remembers that he was agitated this morning saying that he wanted to go home, but cannot tell me anything more about that. He says that his mood is happy and denies that he has ever been depressed. He cannot describe his alcohol use in any way and is beyond this, an unreliable historian. Contact was made with his , Tori, who reports to the liaison nurse that she thinks that he drinks "too much." He thinks at minimum he drinks 6-8 beers per day. She confirms that he has gotten confused/delirious during each inpatient stay including when he was at [facility] for a spinal infection several months ago. CURRENT MEDICATIONS: 1. Zyprexa 5 mg b.i.d. p.r.n. agitation. 2. Lovenox. 3. Tylenol p.r.n. 4. Toprol-XL 50 q.a.m. 5. Boost 1 can b.i.d. 6. Nephrocaps 1 cap q.a.m. 7. Ambien 5 mg at bedtime p.r.n. 8. Ondansetron p.r.n. 9. Percocet 1-2 tabs q. 6 p.r.n. pain. 10. Morphine 2 mg q. 1 hour while awake p.r.n. pain. 11. Multivite 1 tab daily. 12. Protonix 40 mg q.a.m. 13. Colace 100 mg b.i.d. 14. Ferrous gluconate 325 mg t.i.d. with meals. 15. Lipitor 40 mg q.a.m. 16. Flonase nasal spray 2 sprays daily. 17. Folic acid 1 mg q.a.m. 18. Effexor XR 150 mg q.a.m. 19. Trileptal 300 mg b.i.d. 20. Thiamin 100 mg b.i.d. 21. Advair Diskus 1 puff b.i.d. PAST PSYCHIATRIC HISTORY: The patient and his deny that he has ever seen a psychiatric professional or been hospitalized for mental health reasons. PAST MEDICAL HISTORY: 1. Dyslipidemia. 2. Hypertension. 3. COPD. 4. 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 5. Alcoholic peripheral neuropathy. 6. Tobacco use disorder -- currently smoking 6-10 cigarettes per day at home. FAMILY HISTORY: Noncontributory. SUBSTANCE USE HISTORY: Again, the most we can understand is that he is a chronic alcoholic who has been drinking at least 6-8 beers per day and has repeatedly had delirium tremens when inpatient for medical reasons. PERSONAL HISTORY: The patient is retired. 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 He has been to his , Tori for a long time. He has 2 adult children. MENTAL STATUS EXAMINATION: A 65-year-old gentleman with graying hair, poor dentition, who is lying on his back in his third floor bed. He is awake and attempts to be cooperative with the interview. He makes eye contact, which at times is staring. Motor behavior is unremarkable for the most part. His speech is delayed, but of normal volume and tone. His affect is at times odd, restricted. Mood is "happy." Thought process is easily distracted, with significant latency to his responses. He does not appear to be responding to internal stimuli at the time of my interview. He denies suicidal or homicidal thoughts. Memory is impaired, being able to identify only that he is in the hospital and it is 2017. Fund of knowledge appears to be intact per conversation. Intelligence is estimated to be average. Insight and judgment are limited at this time. VITAL SIGNS: Temperature 36.6, pulse 95, respirations 16, blood pressure 143/87, pulse ox 93% on room air. LABORATORIES: 1. Most recent CBC -- notable for RBCs low at 2.82, hemoglobin 9.0, hematocrit 27.1. 2. Chem profile -- notable for calcium low at 7.9 and most recent AST elevated at 45 and direct bili of 0.3. 3. Urinalysis -- without evidence of infection on admission. 4. Coag studies -- PT 12.1, APTT 32.6. REVIEW OF SYSTEMS: Unreliable at this time due to patient's state of delirium. PHYSICAL EXAMINATION: As per Dr. Lehman. IMPRESSION: A 65-year-old gentleman admitted to the hospital with a fractured hip. We are consulted because of delirium. His symptoms certainly are congruent with delirium tremens. He is a known alcoholic drinking likely far more than he or his is reporting. He had been covered with benzodiazepines until yesterday and today his blood pressure and pulse are up and his mental status is increasingly altered. At this point, I would suggest he be maintained on Librium 25 mg at bedtime plus p.r.n. Ativan dosed based on the AWSS scales. We should also take the opportunity to talk with him about outpatient substance use treatment if he becomes less delirious. He will likely want to return to drinking. However, I think we should make every effort to engage him in sobriety as each time he has DTs the episode will be worse and the outcome worst as well. His certainly would like for him to stop thinking that he drinks too much. I will have the liaison nurse follow and when he is in a better position to be able to discuss this reasonably, talk about recovery treatment. At this point he is saying that he does not want to go to rehab, which I understand is recommended. DIAGNOSES: 1. Delirium, multifactorial, related to alcohol withdrawal, narcotics, pain, change in environment and age. 2. History of depression on Effexor. 3. Medical conditions as above. PLAN: Has been reviewed with Dr. Jennifer Stroud. 1. Delirium. -- Restart Librium 25 mg at bedtime and would leave this in place to be tapered as he progresses through physical rehabilitation. -- AWSS protocol with p.rvance Wareivan based on rating scale. -- We will have the liaison nurse follow and when he is capable of having a reasonable discussion about sobriety, we will encourage that he either consider rehab or outpatient substance use treatment. 2. We will run a UA just to rule out any UTI since he has been in the hospital for a week and has a Farrell. We thank you for allowing us to participate in this man's care.
[2016-04-22 14:45] LABS: URINE APPEARANCE CLEAR (CLEAR); URINE BILIRUBIN NEG (NEG); URINE COLOR DK YELLOW; URINE EPITHELIAL CELL AUTO 0-5 /lpf (0-5); URINE NITRITE NEG (NEG); URINE PH 7.5 (4.5-7.5); URINE SPECIFIC GRAVITY 1.019 (1.000-1.030); UROBILINOGEN NEG (NEG); ZZURINE CULT IF INDIC CATH YES
[2016-04-22 14:46] LABS: MANUAL MICROSCOPIC REQUIRED? NO; REVIEW REQ? NO
[2016-04-22] MEDS: CHLORDIAZEPOXIDE 25 MG CAP PO SCH (21:34)
[2016-04-23 06:04] LABS: BASO % 0.2 %; BASO ABS # 0.02 K/uL (0-0.2); COMPLETE YES; EOS % 2.1 %; HEMATOCRIT 28.7 % (42-52); IG% 0.4 %; LYMPH % 12.3 %; LYMPH ABS # 0.99 K/uL (1.2-3.4); MEAN CELL VOLUME 96.3 fL (80-100); MEAN CORPUSCULAR HEMOGLOBIN 30.9 pg (25-34); MEAN CORPUSCULAR HGB CONC 32.1 g/dl (32-36); MEAN PLATELET VOLUME 8.9 fL (7.4-10.4); MONO % 12.8 %; NEUT % 72.2 %; PLATELET COUNT 326 K/uL (130-400); RED BLOOD COUNT 2.98 M/uL (4.7-6.1); WHITE BLOOD COUNT 8.02 K/uL (4.8-10.8)
[2016-04-23 06:37] LABS: BUN/CREATININE RATIO 13.5 (10-20); CREATININE 0.71 mg/dl (0.60-1.40); POTASSIUM 4.1 mmol/L (3.5-5.1)
[2016-04-23 07:31] VITALS: BP 153/97; PULSE 94; TEMP 36.8; O2SAT 97
[2016-04-23] MEDS ORDERED: SOD PHOSPHATE/SOD BIPHOSPHATE ENEMA 132 ML BTL PR STA (07:43)
[2016-04-23] MEDS: BOOST VANILLA PO SCH ×4 (09:00→21:36)
--- NOTE | 2016-04-23 09:28 | ORTHOPEDICS PROGRESS NOTE ---
DATE: 04/23/2016 At this point in time the patient is more lucid, but still is not very well oriented. Has shallow conversations. Follows commands reasonably well. At present he is not complaining of any chest pain, shortness breath, fever or chills. Temperature this morning is 36.8. T-max yesterday was 38.2. Vital signs are stable. Pulse is in the 90s. Respiratory rate in the 17 to 20 range. Pulse ox is 97 on room air. Wound dressing is changed. There is scant serous drainage. The overall swelling about the thigh is markedly diminishing and centralizing as expected. Some minor peau D'orange changes about the incision, nothing distally. That is clean and dry completely. Neurovascular check again, nonfocal. LABORATORY WORK: Reveals that his hematocrit is at 28.7. White count is 8.02. Chemistry is good. Creatinine has decreased to 0.71. UA reveals significant bacteria, small leukocyte esterase, no major skin contamination. Bacteria was 2+. ASSESSMENT: As noted above, no real changes. Dressing is changed. Wound does not show any overt signs of infection. Has scant serous drainage. Will keep the proximal wound covered and supported until it is completely dry, particularly since he is on Lovenox. Suggest discontinue Farrell. Straight cath p.r.n. Use depends to keep bed and wounds clean. Potential transfer to rehabilitation sometime this week. Continue alcohol withdrawal support and metabolic encephalopathy support. MTDD
[2016-04-23 09:35] VITALS: BP 133/85; PULSE 108
[2016-04-23] MEDS: FLUTICASONE/SALMETEROL 100/50 (ADVAIR) 14 PUFF/1 INHALER INH SCH ×2 (09:43→21:37)
[2016-04-23] MEDS: DOCUSATE SODIUM 100 MG CAP PO SCH ×2 (09:43→21:37)
[2016-04-23] MEDS: FLUTICASONE PROPIONATE NA SPR 16 GM BTL NAE SCH (09:43)
[2016-04-23] MEDS: THIAMINE HCL 100 MG TAB PO SCH ×2 (09:44→21:37)
[2016-04-23] MEDS: METOPROLOL SUCC 50MG EXT REL TAB PO SCH (09:44)
[2016-04-23] MEDS: ATORVASTATIN 20 MG TAB PO SCH (09:44)
[2016-04-23] MEDS: NEPHROCAPS PO SCH (09:44)
[2016-04-23] MEDS: OXCARBAZEPINE 150 MG TAB PO SCH ×2 (09:44→21:36)
[2016-04-23] MEDS: VENLAFAXINE HCL XR 75 MG CAPXR PO SCH (09:44)
[2016-04-23] MEDS: FERROUS GLUCONATE 324 MG TAB PO SCH ×3 (09:44→18:23)
--- NOTE | 2016-04-23 09:44 | Progress Note ---
Subjective Date of Service: Apr 23, 2016. Subjective Pt evaluation today including: conversation w/ patient, physical exam, chart review, lab review, review of studies, conversation w/ health management consultant, review of inpatient medication list Voiding: marquez catheter in place See patient again about with orthopedic surgeon and nurse, reported patient was less yelling /less agitation yesterday, but he needed Ativan for agitation 1 dose last night He looks much comfortable, no agitation and anxiety, awake and alert and answering questions Problem List Medical Problems: (1) Anemia Status: Acute (2) DVT (deep venous thrombosis) Status: Acute (3) Fall Status: Acute (4) Gout Status: Acute (5) Hyponatremia Status: Acute (6) Multiple rib fractures Status: Acute (7) Syncope Status: Acute Review of Systems Constitutional: + fatigue, + weakness, No chills, No fever, No problem reported , No sweats, No weight loss Eyes: No diplopia, No discharge, No eye pain, No redness, No worsening of vision ENT: No dental problems, No hearing loss, No nasal symptoms, No sore throat, No tinnitus, No trouble swallowing, No unusual epistaxis Respiratory: No cough, No dyspnea at rest, No dyspnea on exertion, No hemoptysis, No shortness of breath, No sputum, No wheezing Cardiac: No PND, No chest pain, No claudication, No edema, No orthopnea, No palpitations Abdomen: No constipation, No diarrhea, No nausea, No pain, No vomiting Musculoskeletal: + joint pain, No calf pain, No muscle pain, No swelling Male : No dysuria, No hematuria, No incontinence, No nocturia more than once/ night, No slowing stream, No urinary frequency Neurologic: No balance problems, No memory loss, No numbness/tingling, No paralysis, No vertigo, No weakness Psychiatric: No anhedonism, No anxiety, No depression symptoms, No insomnia, No substance abuse Heme: No abnormal bleeding/bruising, No clotting problems, No night sweats, No swollen lymph nodes Endo: No excessive thirst, No excessive urination, No fatigue Skin: No bleeding, No color change, No itch, No new/changing skin lesions, No rash Objective Vital Signs Date Time Temp Pulse Resp B/P Pulse Ox O2 Delivery O2 Flow Rate FiO2 04/23/16 08:00 Room Air 04/23/16 07:31 36.8 94 17 153/97 97 Room Air 04/22/16 23:03 36.5 04/22/16 22:50 38.2 103 18 121/77 93 Room Air 04/22/16 21:39 36.9 106 18 157/98 94 04/22/16 21:23 37.0 106 22 147/89 96 Room Air 04/22/16 19:40 Room Air 04/22/16 14:52 36.7 93 16 113/74 97 Room Air Physical Exam General Appearance: WD/WN, no apparent distress, + pertinent finding (mild confused, lethargic, possible in his baseline) Eyes: normal inspection, PERRL, EOMI, sclerae normal ENT: normal ENT inspection, hearing grossly normal, pharynx normal Neck: supple, no adenopathy, thyroid normal, no JVD, no carotid bruits, trachea midline Respiratory/Chest: chest non-tender, normal breath sounds, no respiratory distress, no accessory muscle use, + decreased breath sounds Cardiovascular: regular rate, rhythm, no edema, no gallop, no JVD, no murmur Abdomen: normal bowel sounds, non tender, soft, no organomegaly, no pulsatile mass, + pertinent finding (Maruqez in place) Extremities: non-tender, normal inspection, no pedal edema, no calf tenderness , normal capillary refill, pelvis stable, + pertinent finding (right hip incision looks good per surgeon) 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 as tested, no motor/sensory deficits, alert, normal mood/affect, + pertinent finding (decrease congnition) Skin: normal color, warm/dry, no rash Lymphatic: no adenopathy Laboratory Results Last 24 Hours Test 04/23/16 05:05 White Blood Count 8.02 K/uL Red Blood Count 2.98 M/uL Hemoglobin 9.2 g/dL Hematocrit 28.7 % Mean Corpuscular Volume 96.3 fL Mean Corpuscular Hemoglobin 30.9 pg Mean Corpuscular Hemoglobin Concent 32.1 g/dl Platelet Count 326 K/uL Mean Platelet Volume 8.9 fL Neutrophils (%) (Auto) 72.2 % Lymphocytes (%) (Auto) 12.3 % Monocytes (%) (Auto) 12.8 % Eosinophils (%) (Auto) 2.1 % Basophils (%) (Auto) 0.2 % Neutrophils # (Auto) 5.78 K/uL Lymphocytes # (Auto) 0.99 K/uL Monocytes # (Auto) 1.03 K/uL Eosinophils # (Auto) 0.17 K/uL Basophils # (Auto) 0.02 K/uL RDW Standard Deviation 56.0 fL RDW Coefficient of Variation 16.4 % Immature Granulocyte % (Auto) 0.4 % Immature Granulocyte # (Auto) 0.03 K/uL Sodium Level 137 mmol/L Potassium Level 4.1 mmol/L Chloride Level 102 mmol/L Carbon Dioxide Level 25 mmol/L Anion Gap 10.0 mmol/L Blood Urea Nitrogen 10 mg/dl Creatinine 0.71 mg/dl Est Creatinine Clear Calc Drug Dose 116.7 ml/min Estimated GFR () 115.7 Estimated GFR (Non- 99.9 BUN/Creatinine Ratio 13.5 Random Glucose 80 mg/dl Calcium Level 8.0 mg/dl Magnesium Level 2.0 mg/dl Assessment and Plan 65 yo male with history of alcohol abuse, HTN, smoking and anxiety/depression, admitted on 04/15/2016 because of severe right hip pain after falling on concrete walkway. x-ray showed a right hip fracture, he developed alcohol withdrawal confusion was in the ICU, was transferred to PCU on [id number] , now is in [facility] -Altered mental status and confusion and cognition decreased, possible multiple factor , such as alcohol withdrawal, deconditioning, chronic alcoholic injuries to the brain History of osteomyelitis in the spine was sent to [facility] several months ago, family reported he has history of stroke, actually that was not a stroke was no history of osteomyelitis after a check the medical record from [facility] mental status changes could be from multiple factorial, such as oral medicine for alcohol withdrawal, brain damages from long-term alcohol intake, or dementia, deconditioning I ordered a brain MRI y but patient not able to tolerate it because of recent history of fracture and has metal locally, I check head CT this morning was not remarkable, Labs include vitamin B12, folate acid, ammonia levels, all normal he has history of long-term alcohol intake, she possible have caused the current deconditioning and dementia and decreased cognition report to me has been follow-up with the local neurologist Dr. Contreras for their frequent fall and decreased cognition. I discussed with Dr. Contreras he agreed with current care, and no further input Yesterday patient was obviously more agitated, his language become more aggressive and abusive, using F word, psychiatry consulted, they field patient possible in the alcohol withdrawal process, I agreed to resume AWSS protocol and restart Librium, it seems help - Right comminuted, distracted, angulated overriding subtrochanteric fracture: s/p ORIF with lock troch nail long on 04/[address] Szymanski, POD #8 Continue pain control , activity level, changed Lovenox 30 mg bid to 40mg subcutaneous daily on 04/19/2016 for DVT prophylaxis , per orthopedic will allow touchdown weightbearing when cooperative. Stable and continued to improve significant amount of acute blood loss anemia, H&H has been stable, but in the lower side, total got 5 unit PRBC Send anemia panel includes stool Hemoccult vitamin B12 and folate acid Was Hypotension upon admission: multifactorial but most likely from hemorrhagic shock, significant blood loss both with the fracture and then in the OR, resolved Blood transfusion totally 5 units EKG without ischemia or infarction, normal troponin UO fair - Acute blood loss anemia from surgery and hip fracture, see above - Acute renal failure: certainly due to hypovol and blood loss, prerenal, creatinine is normalizing - Alcohol abuse: reports > 6 drinks per day, has been on CIWA protocol, has been improving , i discontinue CIWA protocol 2-3 days ago, Librium was tapering off because he has passed withdrawal window and Continue thiamine, folate, vitamin B1 However because possible still in alcohol withdrawal window with recurrent symptoms of agitation and hallucination , we resume AWSS protocol and restart Librium neck I mentioned in the above, it seems help - Tobacco abuse: nebulizers PRN for dyspnea, nicotine patch - HTN: Continue follow-up - Hyperlipidemia: Lipitor - GERD: Protonix - Anxiety/Depression: Effexor and Trileptal - Neuropathy: Lyrica was discontinued because patient was very lethargic, may resume if appropriate - Malnutrition with low pre-albumin, will continue watch dietitian consult if needed medical records from [facility], was reviewed, DC Marquez cath, treat constipation, continue supportive care Discharge to rehabilitation facility if the condition getting better Continued [facility] stay due to: home environment unsafe for pt Discharge planning: rehab hospital
[2016-04-23] MEDS: PANTOprazole SOD 40 MG TAB PO SCH (09:48)
[2016-04-23] MEDS: MULTIVITAMIN TAB PO SCH (09:50)
[2016-04-23] MEDS: ENOXAPARIN 40 MG/0.4 ML SYR SQ SCH (09:50)
[2016-04-23] MEDS: OXYCODONE/ACETAMINOPHEN 5-325 TAB PO PRN ×2 (09:55→19:41)
--- NOTE | 2016-04-23 13:56 | Psych Management Progress Note ---
Psychiatry Miscellaneous Date of Service: Apr 23, 2016. Late entry I personally participated in the case review and medical recommendations outlined in the psychiatric consultation documented by ADRIEL Dewitt on
[2016-04-23 16:00] VITALS: BP 103/65; PULSE 92; TEMP 36.9; O2SAT 97
[2016-04-23] MEDS: CHLORDIAZEPOXIDE 25 MG CAP PO SCH (21:36)
[2016-04-24] MEDS: OXYCODONE/ACETAMINOPHEN 5-325 TAB PO PRN ×2 (02:11→17:41)
[2016-04-24 02:15] VITALS: BP 108/72; PULSE 90; TEMP 36.6; O2SAT 95
[2016-04-24 07:00] VITALS: BP 100/64; PULSE 85; TEMP 36.6; O2SAT 92
[2016-04-24] MEDS: THIAMINE HCL 100 MG TAB PO SCH ×2 (08:09→21:16)
[2016-04-24 08:10] VITALS: BP 95/62; PULSE 88
[2016-04-24] MEDS: ATORVASTATIN 20 MG TAB PO SCH (08:10)
[2016-04-24] MEDS: NEPHROCAPS PO SCH (08:10)
[2016-04-24] MEDS: OXCARBAZEPINE 150 MG TAB PO SCH ×2 (08:10→21:16)
[2016-04-24] MEDS: DOCUSATE SODIUM 100 MG CAP PO SCH ×2 (08:11→21:16)
[2016-04-24] MEDS: FERROUS GLUCONATE 324 MG TAB PO SCH ×3 (08:11→17:42)
[2016-04-24] MEDS: VENLAFAXINE HCL XR 75 MG CAPXR PO SCH (08:11)
[2016-04-24] MEDS: PANTOprazole SOD 40 MG TAB PO SCH (08:11)
[2016-04-24] MEDS: MULTIVITAMIN TAB PO SCH (08:11)
[2016-04-24] MEDS: FLUTICASONE/SALMETEROL 100/50 (ADVAIR) 14 PUFF/1 INHALER INH SCH ×2 (08:12→21:15)
[2016-04-24] MEDS: FLUTICASONE PROPIONATE NA SPR 16 GM BTL NAE SCH (08:12)
[2016-04-24] MEDS: METOPROLOL SUCC 50MG EXT REL TAB PO SCH (08:14)
[2016-04-24] MEDS: ENOXAPARIN 40 MG/0.4 ML SYR SQ SCH (08:14)
[2016-04-24] MEDS: BOOST VANILLA PO SCH ×4 (08:15→21:16)
--- NOTE | 2016-04-24 09:13 | Neurology Progress Notes ---
Neurology Progress Note Date of Service Apr 24, 2016. Subjective Patient is in no complaint of pain this morning. Nursing reports no seizure activity, abnormal involuntary movements, or agitation. He has been slow and somewhat confused. He has not been overly tachycardic and his blood pressure was 120/100 over 64 with a pulse of 85 Objective Date Time Temp Pulse Resp B/P Pulse Ox O2 Delivery O2 Flow Rate FiO2 04/24/16 07:30 Room Air 04/24/16 07:00 36.6 85 18 100/64 92 Room Air 04/24/16 02:15 36.6 90 18 108/72 95 Room Air 04/23/16 20:00 Room Air 04/23/16 16:00 36.9 92 20 103/65 97 Room Air 04/23/16 09:35 108 133/85 Exam: He is awake and alert. She follows one-step commands fairly well although he is slow in his responses. He knows his name but isn't oriented to day, date, month, or year. 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 He told me that he lived in [facility]. Pupils are 2 mm bilaterally reactive to light. Extraocular eye muscles seem intact without nystagmus. There is no facial droop. Tongue is midline. With outstretched arms there is no obvious drift. There is no resting, postural , or action tremors and there is no ataxia with finger to nose testing. He is slow in his movements but his strength is 5/5 diffusely in the arms and legs both proximally and distally. Tone is reasonable the limbs. Toes are downgoing with plantar stimulation bilaterally. Current Inpatient Medications Medications (Trade) Dose Ordered Sig/Feroz Route Start Time Stop Time Status Last Admin Dose Admin Atorvastatin Calcium (Lipitor Tab) 40 mg QAM PO 04/15/16 09:00 05/15/16 08:59 04/24/16 08:10 40 MG Fluticasone Propionate (Flonase Nasal [place]) 2 sprays DAILY HOSSEIN 04/15/16 09:00 05/15/16 08:59 04/24/16 08:12 2 SPRAYS Folic Acid (Folvite Tab) 1 mg QAM PO 04/15/16 09:00 05/15/16 08:59 04/24/16 08:11 1 MG Oxcarbazepine (Trileptal Tab) 300 mg BID PO 04/14/16 21:00 05/14/16 20:59 04/24/16 08:10 300 MG Thiamine HCl (Vitamin B-1 Tab) 100 mg BID PO 04/14/16 21:00 05/14/16 20:59 04/24/16 08:09 100 MG Venlafaxine HCl (effeXOR EXTENDED REL CAP) 150 mg QAM PO 04/15/16 09:00 05/15/16 08:59 04/24/16 08:11 150 MG Salmeterol Xinafoate/ Fluticasone (Advair Diskus 100/50 Inh) 1 puff BID INH 04/14/16 21:00 05/14/16 20:59 04/24/16 08:12 1 PUFF Levalbuterol (Xopenex 1.25MG/ 0.5ML Neb) 1.25 mg Q2H PRN INH 04/14/16 21:30 05/14/16 21:29 Magnesium Hydroxide (Milk Of Magnesia Susp) 30 ml Q6H PRN PO 04/15/16 13:00 05/15/16 12:59 04/21/16 10:38 30 ML Bisacodyl (Dulcolax Supp) 10 mg DAILY PRN WI 04/15/16 13:00 05/15/16 12:59 Sodium Biphosphate/ Sodium Phosphate (Fleet Enema) 132 ml DAILY PRN WI 04/15/16 13:00 05/15/16 12:59 Docusate Sodium (coLACE CAP) 100 mg BID PO 04/15/16 21:00 05/15/16 20:59 04/24/16 08:11 100 MG Al Hydrox/Mg Hydrox/Simethicone (Maalox Max Susp) 15 ml Q4H PRN PO 04/15/16 13:00 05/15/16 12:59 Multivitamins (Multivitamin Tab) 1 tab QAM PO 04/16/16 09:00 05/16/16 08:59 04/24/16 08:11 1 TAB Ferrous Gluconate (Ferrous Gluconate Tab) 324 mg TIDM PO 04/15/16 16:45 05/15/16 17:44 04/24/16 08:11 324 MG Pantoprazole Sodium (Protonix Tab) 40 mg QAM PO 04/16/16 09:00 05/16/16 08:59 04/24/16 08:11 40 MG Miscellaneous (Iv Fluids Completed) 1 ea PRN PRN N/A 04/15/16 15:00 04/15/17 14:59 Metoprolol Succinate (Toprol Xl Tab) 50 mg QAM PO 04/19/16 09:00 05/19/16 08:59 04/23/16 09:44 50 MG Enteral Nutritional Formula (Boost) 1 can BID PO 04/18/16 21:00 05/18/16 20:59 04/24/16 08:15 1 CAN Acetaminophen (Tylenol Tab) 650 mg Q4H PRN PO 04/19/16 18:15 05/19/16 18:14 Zolpidem Tartrate (Ambien Tab) 5 mg HSZ PRN PO 04/18/16 18:15 05/18/16 18:14 Ondansetron HCl (Zofran Inj) 4 mg Q6H PRN IV 04/18/16 18:15 05/18/16 18:14 Vitamin B Complex/ Vit C/Folic Acid (Nephrocaps) 1 cap QAM PO 04/18/16 19:00 05/18/16 18:59 04/24/16 08:10 1 CAP Ipratropium [place] (Atrovent 0.02% 0.5MG/2.5ML Neb) 0.5 mg Q2H PRN INH 04/18/16 18:15 05/18/16 18:14 Oxycodone/ Acetaminophen (Percocet 5-325mg Tab) 1-2 TABLETS 1 TABLET ... Q6H PRN PO 04/18/16 18:15 05/02/16 18:14 04/24/16 02:11 2 TAB Morphine Sulfate (MoRPHine SULFATE INJ) 2 mg Q1HWA PRN IV 04/18/16 18:15 05/02/16 18:14 Enoxaparin Sodium (Lovenox Inj) 40 mg QAM SQ 04/20/16 09:00 05/20/16 08:59 04/24/16 08:14 40 MG Chlordiazepoxide (Librium Cap) 25 mg HS PO 04/22/16 21:00 05/22/16 20:59 04/23/16 21:36 25 MG Impression 1. Acute encephalopathy. This has improved some. He is not so much acutely delirious this morning as he is showing signs of an underlying mild dementia. This was likely multifactorial but alcohol withdrawal was possible. He does not seem to be in alcohol withdrawal this morning. 2. 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 Post right hip fracture secondary to fall 1 week ago with some pain in that area. Plan 1. Continue present therapy increasing activity as able. 2. Wean off central nervous system sedating medications. 3. Avoid all alcohol, if possible. I no further neurologic testing or treatment recommendations at this time. Please contact me if I can be of further assistance on this case.
--- NOTE | 2016-04-24 09:25 | Psychiatric Progress Notes ---
Psychiatric Progress Note Date of Service Apr 24, 2016. Notes ID: Patient reviewed with liaison nurse. Consult completed by ADRIEL Dewitt on 04/22/16. Recommendation at that time was to restart AWSS protocol and maintain on Librium for a bit longer before tapering. CC: "I know where I am but I'm being an ass" HPI: remains confused, pinpoint pupils. Seemingly calling out in pain but then denies. Thinks food/drink at bedside is someone else's and mistook some pillows on a chair for his . ROS: patient is unable to complete MSE: awake/disinhibited then appears like may fall asleep. Affect inappropriate to situation. Thoughts disorganized. Did not appear to be responding to internal stimuli. Imp: ETOH use disorder, delirium, possible underlying dementia per neuro Plan: typical delirium recs.--Verbal redirection and reassurance. Orientation cues with each interaction. Fall precautions to include low bed. Consider need for 1-on-1 observation. Encourage regular visits from family and friends if medically appropriate. Lights on in day, windows open; opposite at night. Use of glasses, dentures and hearing aides. Avoid opiate analgesics where possible. Avoid anticholinergics and benzos (unless to prevent withdrawal). defer any UTI rx to primary service may continue Effexor XR for now as don't want discontinuation syndrome to cloud picture, mood does seem elevated. VS improved on Librium, no tremor noted would avoid antipsychotics unless becomes combative
[2016-04-24] MEDS: AMPICILLIN/SULBACTAM SOD INJ 3,000 MG in SODIUM CHLORIDE 0.9% 100ML 100 ML IV SCH ×2 (11:57→17:43)
--- NOTE | 2016-04-24 13:14 | Orthopedic Progress Note ---
Orthopedic Progress Note Date of Service Apr 24, 2016. 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 SERVICE MANAGER Objective calves soft nontender, N/V intact, hip located, capillary refill less than 2 sec., dressing C/D/I, incision C/D/I, toes mobile, CMS intact A&O to person (1) Date Time Temp Pulse Resp B/P Pulse Ox O2 Delivery O2 Flow Rate FiO2 04/24/16 08:10 88 95/62 04/24/16 07:30 Room Air 04/24/16 07:00 36.6 85 18 100/64 92 Room Air 04/24/16 02:15 36.6 90 18 108/72 95 Room Air 04/23/16 20:00 Room Air 04/23/16 16:00 36.9 92 20 103/65 97 Room Air Assessment & Plan Assessment: post op day 9 s/p open reduction internal fixation of complex anirudh/ subtrochanteric femur fracture Plan: Continue post op care DVT prophylaxis with Lovenox Toe touch weightbearing right lower extremity with walker and assist Ice right hip Resume diet Dressing changed 04/23/16 Pain control with prescribed medications Continue PT/OT Continue to mobilize per mental status Will monitor labs accordingly Will discuss further with Dr. [place] ancillary services manager therapy aware of request for transfer (1) Femur fracture, right Acute (2) Altered mental status Acute (3) Alcohol abuse Chronic (4) Anemia Acute (5) Tachycardia (6) History of hypertension (7) ZAK (acute kidney injury) (8) COPD (chronic obstructive pulmonary disease) Chronic (9) Hypotension
--- NOTE | 2016-04-24 13:39 | Progress Note ---
Subjective Date of Service: Apr 24, 2016. Subjective Pt evaluation today including: conversation w/ patient, physical exam, chart review, lab review, review of studies, review of inpatient medication list Pt paranoid with tangential speech No distress noted No active visual/auditory hallucinations Problem List Medical Problems: (1) Anemia Status: Acute (2) DVT (deep venous thrombosis) Status: Acute (3) Fall Status: Acute (4) Gout Status: Acute (5) Hyponatremia Status: Acute (6) Multiple rib fractures Status: Acute (7) Syncope Status: Acute Review of Systems Constitutional: No chills, No fever ENT: No nasal symptoms, No sore throat Respiratory: No cough, No dyspnea on exertion, No shortness of breath, No sputum, No wheezing Cardiac: No chest pain, No orthopnea Abdomen: No diarrhea, No nausea, No pain, No vomiting Musculoskeletal: No joint pain, No muscle pain Male : No dysuria, No urinary frequency Objective Vital Signs Date Time Temp Pulse Resp B/P Pulse Ox O2 Delivery O2 Flow Rate FiO2 04/24/16 08:10 88 95/62 04/24/16 07:30 Room Air 04/24/16 07:00 36.6 85 18 100/64 92 Room Air 04/24/16 02:15 36.6 90 18 108/72 95 Room Air 04/23/16 20:00 Room Air 04/23/16 16:00 36.9 92 20 103/65 97 Room Air Physical Exam General Appearance: WD/WN, no apparent distress Neck: supple, no adenopathy Respiratory/Chest: lungs clear, normal breath sounds Cardiovascular: no edema, no gallop Abdomen: non tender, soft Neurologic/Psychiatric: alert, + disoriented Assessment and Plan 65 yo male with history of alcohol abuse, HTN, smoking and anxiety/depression, admitted on 04/15/2016 because of severe right hip pain after falling on concrete walkway. x-ray showed a right hip fracture, he developed alcohol withdrawal confusion was in the ICU, was transferred to PCU on [id number] , now is in [facility] -Altered mental status and confusion and cognition decreased, possible multiple factors, such as alcohol withdrawal, deconditioning, chronic alcoholic injuries to the brain I ordered a brain MRI but patient not able to tolerate it because of recent history of fracture and has metal locally, head CT was not remarkable, Labs include vitamin B12, folate acid, ammonia levels, all normal he has history of long-term alcohol intake, she possible have caused the current deconditioning and dementia and decreased cognition report to me has been follow-up with the local neurologist Dr. Contreras for their frequent fall and decreased cognition. I discussed with Dr. Contreras he agreed with current care, and no further input During hospital course patient became more agitated, his language become more aggressive and abusive, psychiatry consulted, thought patient possibly in alcohol withdrawal process, I agreed to resume AWSS protocol and restart Librium, it seems help - Right comminuted, distracted, angulated overriding subtrochanteric fracture: s/p ORIF with lock troch nail long on 04/[address] Szymanski, POD #8 Continue pain control , activity level, changed Lovenox 30 mg bid to 40mg subcutaneous daily on 04/19/2016 for DVT prophylaxis , per orthopedic will allow touchdown weightbearing when cooperative. Stable and continued to improve Enterococcus UTI - Start on unasyn, await sens at this time, afebrile and no leukocytosis significant amount of acute blood loss anemia, H&H has been stable, but in the lower side, total got 5 unit PRBC Send anemia panel includes stool Hemoccult vitamin B12 and folate acid Was Hypotension upon admission: multifactorial but most likely from hemorrhagic shock, significant blood loss both with the fracture and then in the OR, resolved Blood transfusion totally 5 units EKG without ischemia or infarction, normal troponin UO fair - Acute blood loss anemia from surgery and hip fracture, see above - Acute renal failure: certainly due to hypovol and blood loss, prerenal, creatinine is normalizing - Alcohol abuse: reports > 6 drinks per day, has been on CIWA protocol, has been improving , i discontinue CIWA protocol 2-3 days ago, Librium was tapering off because he has passed withdrawal window and Continue thiamine, folate, vitamin B1 However because possible still in alcohol withdrawal window with recurrent symptoms of agitation and hallucination , we resume AWSS protocol and restart Librium neck I mentioned in the above, it seems help - Tobacco abuse: nebulizers PRN for dyspnea, nicotine patch - HTN: Continue follow-up - Hyperlipidemia: Lipitor - GERD: Protonix - Anxiety/Depression: Effexor and Trileptal - Neuropathy: Lyrica was discontinued because patient was very lethargic, may resume if appropriate - Malnutrition with low pre-albumin, will continue watch dietitian consult if needed medical records from [facility], was reviewed, DC Farrell cath, treat constipation, continue supportive care Discharge to rehabilitation facility if the condition getting better Continued [facility] stay due to: home environment unsafe for pt Discharge planning: rehab hospital
[2016-04-24 15:40] VITALS: BP 103/64; PULSE 109; TEMP 36.9; O2SAT 92; O2SAT 98
--- NOTE | 2016-04-24 16:34 | PROGRESS NOTE ---
DATE: 04/24/2016 Orthopedic attending agreed with note by Amy GILES at this point in time continue with observation and supportive care . Weightbearing toe touch for another week to 10 days. Staple removal at roughly 14-18 days postop pending nutrition status. I agree with treatment of UTI at this point in time with amoxicillin as it is sensitive. This will help prevent any potential seating of his spine as well as his hip. WENDY
[2016-04-24] MEDS: CHLORDIAZEPOXIDE 25 MG CAP PO SCH (21:16)
[2016-04-24 22:45] VITALS: BP 96/61; PULSE 106; TEMP 36.6; O2SAT 93
[2016-04-25] VITALS (8 sets, daily range): BP systolic 93–114; BP diastolic 54–71; PULSE 83–106; TEMP 36.4–37; O2SAT 90–95
[2016-04-25] MEDS: OXYCODONE/ACETAMINOPHEN 5-325 TAB PO PRN ×3 (00:10→19:56)
[2016-04-25] MEDS: AMPICILLIN/SULBACTAM SOD INJ 3,000 MG in SODIUM CHLORIDE 0.9% 100ML 100 ML IV SCH ×4 (00:11→18:18)
[2016-04-25] MEDS: METOPROLOL SUCC 50MG EXT REL TAB PO SCH (07:31)
[2016-04-25] MEDS: NEPHROCAPS PO SCH (07:35)
[2016-04-25] MEDS: FERROUS GLUCONATE 324 MG TAB PO SCH ×3 (07:35→18:18)
[2016-04-25] MEDS: PANTOprazole SOD 40 MG TAB PO SCH (07:35)
[2016-04-25] MEDS: MULTIVITAMIN TAB PO SCH (07:35)
[2016-04-25] MEDS: OXCARBAZEPINE 150 MG TAB PO SCH ×2 (07:35→21:17)
[2016-04-25] MEDS: DOCUSATE SODIUM 100 MG CAP PO SCH ×2 (07:35→21:17)
[2016-04-25] MEDS: FLUTICASONE/SALMETEROL 100/50 (ADVAIR) 14 PUFF/1 INHALER INH SCH ×2 (07:36→21:18)
[2016-04-25] MEDS: ATORVASTATIN 20 MG TAB PO SCH (07:36)
[2016-04-25] MEDS: ENOXAPARIN 40 MG/0.4 ML SYR SQ SCH (07:36)
[2016-04-25] MEDS: THIAMINE HCL 100 MG TAB PO SCH ×2 (07:36→21:17)
[2016-04-25] MEDS: VENLAFAXINE HCL XR 75 MG CAPXR PO SCH (07:36)
[2016-04-25] MEDS: FLUTICASONE PROPIONATE NA SPR 16 GM BTL NAE SCH (07:37)
--- NOTE | 2016-04-25 07:38 | ORTHOPEDICS PROGRESS NOTE ---
DATE: 04/25/2016 The patient is more alert today. 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 He is oriented to person, place and time. He recognizes me. He is appreciative of the care. He denies any chest pain, shortness of breath, fever or chills. He states he has poor appetite. Vital signs are stable. He is afebrile. Lower extremity examination reveals no focal findings. Baseline neurologic exam. Lateral distal femur wound is clean. Proximal femoral wound has scant serous drainage, minimal. Peau d'orange changes are consolidating and diminishing nicely. There is no expressible material with manual pressure. Wound is dressed to compress the area and hold some gentle support to the wound. Range of motion of the knee and of the hip produces no pain of the femur. ASSESSMENT: Overall, looking better. Suspect he will be able to be placed shortly. Continue UTI treatment. Continue metabolic/alcoholic encephalopathy treatment. Pettus will be in at least another week based on the appearance of the wound.
[2016-04-25] MEDS: BOOST VANILLA PO SCH ×6 (07:42→21:16)
--- NOTE | 2016-04-25 13:48 | Progress Note ---
Subjective Date of Service: Apr 25, 2016. Subjective Pt evaluation today including: conversation w/ patient, physical exam, chart review, lab review, review of studies, review of inpatient medication list Problem List Medical Problems: (1) Anemia Status: Acute (2) DVT (deep venous thrombosis) Status: Acute (3) Fall Status: Acute (4) Gout Status: Acute (5) Hyponatremia Status: Acute (6) Multiple rib fractures Status: Acute (7) Syncope Status: Acute Review of Systems Constitutional: No chills, No fever Respiratory: No cough, No dyspnea on exertion, No shortness of breath, No sputum Cardiac: No chest pain, No orthopnea Abdomen: No constipation, No diarrhea, No nausea, No pain, No vomiting Musculoskeletal: No joint pain, No muscle pain Male : No dysuria, No urinary frequency Objective Vital Signs Date Time Temp Pulse Resp B/P Pulse Ox O2 Delivery O2 Flow Rate FiO2 04/25/16 11:22 36.5 95 16 94/59 93 Room Air 04/25/16 10:05 95 95 Room Air 04/25/16 09:44 94/59 04/25/16 08:57 93 Room Air 04/25/16 07:15 Room Air 04/25/16 07:06 36.6 83 16 93/54 90 Room Air 04/25/16 00:15 Room Air 04/24/16 22:45 36.6 106 20 96/61 93 Room Air 04/24/16 15:40 98 Room Air 04/24/16 15:40 36.9 109 18 103/64 92 Room Air Physical Exam General Appearance: WD/WN, no apparent distress Neck: supple, no adenopathy Respiratory/Chest: lungs clear, normal breath sounds Cardiovascular: no edema, no gallop Abdomen: non tender, soft Neurologic/Psychiatric: alert, + disoriented Assessment and Plan 65 yo male with history of alcohol abuse, HTN, smoking and anxiety/depression, admitted on 04/15/2016 because of severe right hip pain after falling on concrete walkway. 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 Contreras for their frequent fall and decreased cognition. I discussed with Dr. Contreras he agreed with current care, and no further input During hospital course patient became more agitated, his language become more aggressive and abusive, psychiatry consulted, thought patient possibly in alcohol withdrawal process, I agreed to resume AWSS protocol and restart Librium with longer taper - Right comminuted, distracted, angulated overriding subtrochanteric fracture: s/p ORIF with lock troch nail long on 04/[address] Szymanski, POD # 9 Continue pain control , activity level, changed Lovenox 30 mg bid to 140mg subcutaneous daily on 04/19/2016 for DVT prophylaxis , per orthopedic will allow touchdown weightbearing when cooperative. Stable and continued to improve Enterococcus UTI - Start on unasyn, await sens at this time, afebrile and no leukocytosis significant amount of acute blood loss anemia, H&H has been stable, but in the lower side, total got 5 unit PRBC Send anemia panel includes stool Hemoccult vitamin B12 and folate acid Was Hypotension upon admission: multifactorial but most likely from hemorrhagic shock, significant blood loss both with the fracture and then in the OR, resolved Blood transfusion totally 5 units EKG without ischemia or infarction, normal troponin UO fair - Acute blood loss anemia from surgery and hip fracture, see above - Acute renal failure: certainly due to hypovol and blood loss, prerenal, creatinine is normalizing - Alcohol abuse: reports > 6 drinks per day, has been on CIWA protocol, has been improving , i discontinue CIWA protocol 2-3 days ago, Librium was tapering off because he has passed withdrawal window and Continue thiamine, folate, vitamin B1 However because possible still in alcohol withdrawal window with recurrent symptoms of agitation and hallucination , we resume AWSS protocol and restart Librium neck I mentioned in the above, it seems help - Tobacco abuse: nebulizers PRN for dyspnea, nicotine patch - HTN: Continue follow-up - Hyperlipidemia: Lipitor - GERD: Protonix - Anxiety/Depression: Effexor and Trileptal - Neuropathy: Lyrica was discontinued because patient was very lethargic, may resume if appropriate - Malnutrition with low pre-albumin, will continue watch dietitian consult if needed medical records from [facility], was reviewed, DC Farrell cath, treat constipation, continue supportive care Discharge to rehabilitation facility if the condition getting better Continued [facility] stay due to: home environment unsafe for pt Discharge planning: rehab hospital
[2016-04-25] MEDS: SODIUM CHLORIDE 0.9% 1000ML 1,000 ML IV SCH (14:38)
[2016-04-25] MEDS: CHLORDIAZEPOXIDE 25 MG CAP PO SCH (21:17)
[2016-04-26] MEDS: AMPICILLIN/SULBACTAM SOD INJ 3,000 MG in SODIUM CHLORIDE 0.9% 100ML 100 ML IV SCH ×4 (00:50→17:37)
[2016-04-26] MEDS: SODIUM CHLORIDE 0.9% 1000ML 1,000 ML IV SCH ×2 (03:52→17:34)
[2016-04-26 07:38] VITALS: BP 131/73; PULSE 96; TEMP 36.4; O2SAT 94
[2016-04-26] MEDS: DOCUSATE SODIUM 100 MG CAP PO SCH ×2 (08:03→21:00)
[2016-04-26] MEDS: METOPROLOL SUCC 50MG EXT REL TAB PO SCH (08:03)
[2016-04-26] MEDS: MULTIVITAMIN TAB PO SCH (08:03)
[2016-04-26] MEDS: NEPHROCAPS PO SCH (08:03)
[2016-04-26] MEDS: PANTOprazole SOD 40 MG TAB PO SCH (08:03)
[2016-04-26] MEDS: OXCARBAZEPINE 150 MG TAB PO SCH ×2 (08:03→21:17)
[2016-04-26] MEDS: FERROUS GLUCONATE 324 MG TAB PO SCH ×3 (08:03→17:37)
[2016-04-26] MEDS: ATORVASTATIN 20 MG TAB PO SCH (08:04)
[2016-04-26] MEDS: VENLAFAXINE HCL XR 75 MG CAPXR PO SCH (08:04)
[2016-04-26] MEDS: THIAMINE HCL 100 MG TAB PO SCH ×2 (08:04→21:17)
[2016-04-26] MEDS: OXYCODONE/ACETAMINOPHEN 5-325 TAB PO PRN ×2 (08:05→22:22)
[2016-04-26] MEDS: FLUTICASONE/SALMETEROL 100/50 (ADVAIR) 14 PUFF/1 INHALER INH SCH ×2 (08:05→21:16)
[2016-04-26] MEDS: BOOST VANILLA PO SCH ×6 (08:05→21:16)
[2016-04-26] MEDS: FLUTICASONE PROPIONATE NA SPR 16 GM BTL NAE SCH (08:05)
[2016-04-26] MEDS: ENOXAPARIN 40 MG/0.4 ML SYR SQ SCH (08:06)
--- NOTE | 2016-04-26 08:37 | Progress Note ---
Orthopedic SOAP Note Subjective Date of Service: Apr 26, 2016. 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 Pleasant. Dressing reinforced. Appears to have already been changed. No drainage on what appears to be new dressing. [place] tape to reinforce compression dressing. Patient communicating more today with more accuracy of events. Date Time Temp Pulse Resp B/P Pulse Ox O2 Delivery O2 Flow Rate FiO2 04/26/16 07:38 36.4 96 16 131/73 94 Room Air 04/26/16 00:50 Room Air 04/25/16 23:05 36.7 106 18 111/67 94 Room Air 04/25/16 20:04 36.4 105 18 114/68 95 Room Air 04/25/16 15:45 Room Air 04/25/16 15:07 37.0 91 18 107/71 93 Room Air 04/25/16 11:22 36.5 95 16 94/59 93 Room Air 04/25/16 10:05 95 95 Room Air 04/25/16 09:44 94/59 04/25/16 08:57 93 Room Air Assessment post op day 11 s/p open reduction internal fixation of complex anirudh/ subtrochanteric femur fracture Plan Continue post op care DVT prophylaxis with Lovenox Toe touch weightbearing right lower extremity with walker and assist Ice right hip Resume diet Dressing changed 04/26/16 Pain control with prescribed medications Continue PT/OT Continue to mobilize per mental status Will monitor labs accordingly Will discuss further with Dr. [place] human services instructor aware of request for transfer
--- NOTE | 2016-04-26 13:50 | Progress Note ---
Subjective Date of Service: Apr 26, 2016. Subjective Pt evaluation today including: conversation w/ patient, physical exam, chart review, lab review, review of studies, conversation w/ executive search consultant, review of inpatient medication list Pt only alert to himself No distress or agitation No active auditory or visual hallucinations Resting comfortably in bed Having tangential conversation Problem List Medical Problems: (1) Anemia Status: Acute (2) DVT (deep venous thrombosis) Status: Acute (3) Fall Status: Acute (4) Gout Status: Acute (5) Hyponatremia Status: Acute (6) Multiple rib fractures Status: Acute (7) Syncope Status: Acute Review of Systems Constitutional: No chills, No fever Respiratory: No cough, No shortness of breath, No sputum, No wheezing Cardiac: No chest pain, No orthopnea Abdomen: No constipation, No diarrhea, No nausea, No pain, No vomiting Musculoskeletal: No joint pain, No muscle pain Male : No dysuria, No urinary frequency Neurologic: No memory loss, No paralysis, No weakness Psychiatric: No anhedonism, No depression symptoms Objective Vital Signs Date Time Temp Pulse Resp B/P Pulse Ox O2 Delivery O2 Flow Rate FiO2 04/26/16 07:45 Room Air 04/26/16 07:38 36.4 96 16 131/73 94 Room Air 04/26/16 00:50 Room Air 04/25/16 23:05 36.7 106 18 111/67 94 Room Air 04/25/16 20:04 36.4 105 18 114/68 95 Room Air 04/25/16 15:45 Room Air 04/25/16 15:07 37.0 91 18 107/71 93 Room Air Physical Exam General Appearance: WD/WN, no apparent distress Neck: supple, no adenopathy Respiratory/Chest: lungs clear, normal breath sounds Cardiovascular: no edema, no gallop Abdomen: non tender, soft Neurologic/Psychiatric: alert, + depressed affect Assessment and Plan 65 yo male with history of alcohol abuse, HTN, smoking and anxiety/depression, admitted on 04/15/2016 because of severe right hip pain after falling on concrete walkway. 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 Contreras for their frequent fall and decreased cognition. I discussed with Dr. Contreras he agreed with current care, and no further input During hospital course patient became more agitated, his language become more aggressive and abusive, psychiatry consulted, thought patient possibly in alcohol withdrawal process, I agreed to resume AWSS protocol and restart Librium with longer taper Right comminuted, distracted, angulated overriding subtrochanteric fracture: s/p ORIF with lock troch nail long on 04/[address] Szymanski, POD # 10 Continue pain control, activity level, changed Lovenox 30 mg bid to 140mg subcutaneous daily on 04/19/2016 for DVT prophylaxis , per orthopedic will allow touchdown weightbearing when cooperative. Stable and continued to improve Awaiting rehab placement Enterococcus UTI - Start on unasyn, await sens at this time, afebrile and no leukocytosis, can be dced on for cipro for 7 days total Significant amount of acute blood loss anemia, H&H has been stable, but in the lower side, total got 5 unit PRBC Send anemia panel includes stool Hemoccult vitamin B12 and folate acid Was Hypotension upon admission: multifactorial but most likely from hemorrhagic shock, significant blood loss both with the fracture and then in the OR, resolved Blood transfusion totally 5 units EKG without ischemia or infarction, normal troponin UO fair - Acute blood loss anemia from surgery and hip fracture, see above - Acute renal failure: certainly due to hypovol and blood loss, prerenal, creatinine is normalizing Alcohol abuse: reports > 6 drinks per day, has been on CIWA protocol, has been improving , i discontinue CIWA protocol 2-3 days ago, Librium was tapering off because he has passed withdrawal window and Continue thiamine, folate, vitamin B1 However because possible still in alcohol withdrawal window with recurrent symptoms of agitation and hallucination , we resume AWSS protocol and restart Librium neck I mentioned in the above, it seems help Will dc on librium as well with slow taper due to extended withdrawal Tobacco abuse: nebulizers PRN for dyspnea, nicotine patch HTN: Continue follow-up Hyperlipidemia cont lipitor GERD cont protonix Anxiety/Depression cont effexor and trileptal Neuropathy: Lyrica was discontinued because patient was very lethargic Malnutrition with low pre-albumin, will continue watch dietitian consult if needed, poor PO intake Discharge to rehabilitation facility once bed available Continued [facility] stay due to: home environment unsafe for pt Discharge planning: rehab hospital
[2016-04-26 15:26] VITALS: BP 117/71; PULSE 94; TEMP 36.5; O2SAT 97
[2016-04-26] MEDS: CHLORDIAZEPOXIDE 25 MG CAP PO SCH (21:22)
[2016-04-26 23:17] VITALS: BP 132/77; PULSE 92; TEMP 36.8; O2SAT 96
[2016-04-27] MEDS: OXYCODONE/ACETAMINOPHEN 5-325 TAB PO PRN ×2 (05:23→12:13)
[2016-04-27] MEDS: AMPICILLIN/SULBACTAM SOD INJ 3,000 MG in SODIUM CHLORIDE 0.9% 100ML 100 ML IV SCH ×2 (05:23→06:50)
[2016-04-27] MEDS: SODIUM CHLORIDE 0.9% 1000ML 1,000 ML IV SCH (06:50)
--- NOTE | 2016-04-27 07:41 | PROGRESS NOTE ---
DATE: 04/27/2016 The patient is alert, oriented to person. He is not really clear on where he is or what he is doing here today. Vital signs are stable. He is afebrile. Wound is clean, dry and intact. Neurovascular check; nonfocal. ASSESSMENT: He continues to have issues with encephalopathy based on alcohol, age and metabolic issues. PLAN: To discharge to facility per medicine. Mobilize touch-down / partial weightbearing right lower extremity. Keep the wound slightly compressed until completely dry. Follow up in roughly 10 days for staple removal. WENDY
[2016-04-27 07:50] VITALS: BP 122/78; PULSE 85; TEMP 36.4; O2SAT 91
[2016-04-27] MEDS: VENLAFAXINE HCL XR 75 MG CAPXR PO SCH (08:35)
[2016-04-27] MEDS: THIAMINE HCL 100 MG TAB PO SCH (08:35)
[2016-04-27] MEDS: BOOST VANILLA PO SCH ×2 (08:35)
[2016-04-27] MEDS: NEPHROCAPS PO SCH (08:35)
[2016-04-27] MEDS: FERROUS GLUCONATE 324 MG TAB PO SCH ×2 (08:35→12:04)
[2016-04-27] MEDS: PANTOprazole SOD 40 MG TAB PO SCH (08:35)
[2016-04-27] MEDS: METOPROLOL SUCC 50MG EXT REL TAB PO SCH (08:35)
[2016-04-27] MEDS: FLUTICASONE/SALMETEROL 100/50 (ADVAIR) 14 PUFF/1 INHALER INH SCH (08:36)
[2016-04-27] MEDS: OXCARBAZEPINE 150 MG TAB PO SCH (08:36)
[2016-04-27] MEDS: ATORVASTATIN 20 MG TAB PO SCH (08:36)
[2016-04-27] MEDS: DOCUSATE SODIUM 100 MG CAP PO SCH (08:36)
[2016-04-27] MEDS: ENOXAPARIN 40 MG/0.4 ML SYR SQ SCH (08:36)
[2016-04-27] MEDS: FLUTICASONE PROPIONATE NA SPR 16 GM BTL NAE SCH (08:36)
[2016-04-27] MEDS: MULTIVITAMIN TAB PO SCH (08:36)
[2016-04-27] MEDS ORDERED: LBR25 PO (11:43)
[2016-04-27] MEDS ORDERED: CIPR-255 PO (11:43)
[2016-04-27 11:48] VITALS: BP 122/78; PULSE 85; TEMP 36.4; O2SAT 91
--- NOTE | 2016-04-27 12:00 | Discharge Summary ---
Discharge Summary Admission Date: Apr 15, 2016 at 16:17 Discharge Date: Apr 21, 2016 Discharge Disposition: Rehab Principal Diagnosis: Hip fracture, alcohol withdrawal Consultations: Orthopedic surgery Neurology Psychiatry Medication Reconciliation New Medications: Ciprofloxacin Hcl (Cipro) 500 Mg Tab 1 TAB PO BID for 4 Days, #8 TAB Oxycodone/Acetaminophen 5MG/325MG (Percocet 5MG/325MG) Tab 1-2 TABLETS PO Q4H PRN for Pain, #36 TAB Chlordiazepoxide (Chlordiazepoxide HCl) 25 Mg Cap 25 MG PO HS for 7 Days, #7 CAP Enoxaparin (Enoxaparin Sodium) 40 Mg/0.4 Ml Inj 40 MG SQ QAM for 15 Days use daily for DVT prophylaxis as instructed by medical team Continued Medications: Acetaminophen (Tylenol) 325 Mg Tab 325-650 MG PO Q4H PRN for Pain, TAB Albuterol Hfa (Ventolin Hfa) 200 Puffs/53538 Mcg Aers 1-2 PUFFS INH Q4 PRN for Shortness of Breath Atorvastatin (Lipitor) 40 Mg Tab 40 MG PO QAM, TAB Fluticasone Propionate (Nasal) (Flonase Allergy Relief) 50 Mcg/Act Spr 1-2 SPRAY HOSSEIN DAILY Fluticasone-Salmeterol 45/21 Mcg (Advair Hfa 45/21 Mcg) 1 Aer Aer 1 PUFFS IN BID Folic Acid (Folic Acid) 1 Mg Tab 1 MG PO QAM Indomethacin (Indocin) 50 Mg Cap 50 MG PO DAILY PRN for FLARE UP, CAP WITH FOOD UNTIL PAIN RESOLVES Lisinopril (Zestril) 10 Mg Tab 10 MG PO QAM, TAB Metoprolol Succ (Toprol Xl) (Toprol-Xl) 25 Mg Tabcr 25 MG PO QAM TAKES 25MG ALONG WITH 50MG TABLET Metoprolol Succinate (Metoprolol Succinate ER) 50 Mg Tabcr 50 MG PO QAM TAKES ALONG WITH 25 MG FOR TOTAL DOSE OF 75 MG Oxcarbazepine (Trileptal) 300 Mg Tab 1 TAB PO BID Pantoprazole (Protonix) 40 Mg Tab 40 MG PO DAILY, #30 TAB Pregabalin (Lyrica) 75 Mg Cap 75 MG PO BID, CAP Thiamine Hcl (Vitamin B-1) 100 Mg Tab 100 MG PO BID, TAB Venlafaxine Hcl (Venlafaxine Extended Rel) 75 Mg Cap 150 MG PO QAM, CAP Vitamin B Cmplx/Vitc/Folic Ac (Nephrocaps) 1 Cap Cap 1 CAP PO QAM, CAP Discharge Exam Unable to obtain due to dementia Physical Exam: General Appearance: WD/WN, + mild distress Neck: supple, no adenopathy Respiratory/Chest: lungs clear, normal breath sounds Abdomen / GI: non tender, soft Neurologic/Psychiatric: alert, + disoriented Hospital Course 65 yo male with history of alcohol abuse, HTN, smoking and anxiety/depression, admitted on 04/15/2016 because of severe right hip pain after falling on concrete walkway. 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 Contreras for their frequent fall and decreased cognition. I discussed with Dr. Contreras he agreed with current care, and no further input During hospital course patient became more agitated, his language become more aggressive and abusive, psychiatry consulted, thought patient possibly in alcohol withdrawal process, I agreed to resume AWSS protocol and restart Librium with longer taper upon discharge Right comminuted, distracted, angulated overriding subtrochanteric fracture: s/p ORIF with lock troch nail long on 04/[address] Szymanski Continue pain control, activity level, changed Lovenox 30 mg bid to 40mg subcutaneous daily on 04/19/2016 for DVT prophylaxis , per orthopedic will allow touchdown weightbearing when cooperative. Stable and continued to improve Awaiting rehab placement Enterococcus UTI - Start on unasyn, await sens at this time, afebrile and no leukocytosis, can be dced on for cipro for 4 more days for 7 days total Significant amount of acute blood loss anemia, H&H has been stable, but in the lower side, total got 5 unit PRBC Send anemia panel includes stool Hemoccult vitamin B12 and folate acid Was Hypotension upon admission: multifactorial but most likely from hemorrhagic shock, significant blood loss both with the fracture and then in the OR, resolved Blood transfusion totally 5 units EKG without ischemia or infarction, normal troponin UO fair - Acute blood loss anemia from surgery and hip fracture, see above - Acute renal failure: certainly due to hypovol and blood loss, prerenal, creatinine is normalizing Alcohol abuse: reports > 6 drinks per day, has been on CIWA protocol, has been improving , i discontinue CIWA protocol 2-3 days ago, Librium was tapering off because he has passed withdrawal window and Continue thiamine, folate, vitamin B1 However because possible still in alcohol withdrawal window with recurrent symptoms of agitation and hallucination , we resume AWSS protocol and restart Librium neck I mentioned in the above, it seems to help. Will dc on librium as well with slow taper due to extended withdrawal Tobacco abuse: nebulizers PRN for dyspnea, nicotine patch HTN: Continue follow-up Hyperlipidemia cont lipitor GERD cont protonix Anxiety/Depression cont effexor and trileptal Neuropathy: Lyrica was discontinued because patient was very lethargic Malnutrition with low pre-albumin, will continue watch dietitian consult if needed, poor PO intake Discharge to rehabilitation facility once bed available Total Time Spent: Greater than 30 minutes This includes examination of the patient, discharge planning, medication reconciliation, and communication with other providers. Discharge Instructions Please refer to the electronic Patient Visit Report (Discharge Instructions) for additional information. Additional Copies To Jakob Cage M.D.
[2016-11-14] MEDS ORDERED: OXCA300T4 PO (00:46)
[2016-11-14] MEDS ORDERED: ATOR-24 PO (04:14)
[2016-11-14] MEDS ORDERED: LISI-461 PO (04:24)
[2016-11-14] MEDS ORDERED: METO25TA3 PO (12:25)
[2016-11-14] MEDS ORDERED: INDO-24 PO (12:48)
[2016-11-14] MEDS ORDERED: PREG1CAP28 PO (13:35)
[2016-11-18] MEDS ORDERED: SDMC1 PO (07:08)
[2016-11-18] MEDS ORDERED: PRED20TA PO (07:13)
== END 2016-04-27 13:27 | DRG 907 ==
LOC: ENRESERVTM → ENRESERVDT → EDBD 18:05 → C.EDA 18:08 → C.MSW 20:11 → INTOOBSV 20:41 → UNDOADMOB 20:41 → C.MSW 20:41 → C.2E 04-15 15:10 → OBSVTOIN 04-15 16:17 → INTOOBSV 04-15 16:17 → C.MSICU 04-15 19:07 → C.2E 04-15 19:07 → C.MSICU 04-18 04:47 → C.2T 04-18 21:15 → EDBEDREQSVC 04-20 15:30 → C.3E 04-20 17:18
PROVIDERS: ADMIT Hospitalist; ATTEND Hospitalist
PROC: 02HV33Z Insertion of Infusion Device into Superior Vena Cava, Percutaneous Approach (ICD-10-PCS; 2016-04-15)
PROC: 0QS606Z Reposition Right Upper Femur with Intramedullary Internal Fixation Device, Open Approach (ICD-10-PCS; principal; 2016-04-15 08:30)
DX: T81.19XA Other postprocedural shock, initial encounter (principal); S72.21XA Displaced subtrochanteric fracture of right femur, initial encounter for closed fracture; N17.0 Acute kidney failure with tubular necrosis; G93.41 Metabolic encephalopathy; D62 Acute posthemorrhagic anemia; F10.239 Alcohol dependence with withdrawal, unspecified; F10.27 Alcohol dependence with alcohol-induced persisting dementia; N39.0 Urinary tract infection, site not specified; E46 Unspecified protein-calorie malnutrition; B95.2 Enterococcus as the cause of diseases classified elsewhere; G62.1 Alcoholic polyneuropathy; K59.00 Constipation, unspecified; J44.9 Chronic obstructive pulmonary disease, unspecified; I10 Essential (primary) hypertension; M10.9 Gout, unspecified; J45.909 Unspecified asthma, uncomplicated; E78.00 Pure hypercholesterolemia, unspecified; E78.5 Hyperlipidemia, unspecified; F41.9 Anxiety disorder, unspecified; F32.9 Major depressive disorder, single episode, unspecified; K21.9 Gastro-esophageal reflux disease without esophagitis; F17.210 Nicotine dependence, cigarettes, uncomplicated; Z51.81 Encounter for therapeutic drug level monitoring; Z79.899 Other long term (current) drug therapy; Z86.19 Personal history of other infectious and parasitic diseases; Z86.718 Personal history of other venous thrombosis and embolism; Z82.49 Family history of ischemic heart disease and other diseases of the circulatory system; W18.39XA Other fall on same level, initial encounter; Y93.01 Activity, walking, marching and hiking; Y92.008 Other place in unspecified non-institutional (private) residence as the place of occurrence of the external cause; Y99.8 Other external cause status; Y83.8 Other surgical procedures as the cause of abnormal reaction of the patient, or of later complication, without mention of misadventure at the time of the procedure; Y92.234 Operating room of hospital as the place of occurrence of the external cause

== ENCOUNTER → 2016-05-08 | Outpatient (CLI) | payer BC ==
[~2016-05-08] MED LIST changes: +ACET-1311 PO; +ATOR-24 PO; +B-CO1CAP17 PO; +CIPR-255 PO; +FLUT0.15 NAE; +FLV400 PO; +INDO-24 PO; +LBR25 PO; -LDDP5 EXT; +LISI-461 PO; +LVNIS40 SQ; +METO25TA3 PO; +NICO21DI35 PO; +NICO21DI4 TD; +OXCA300T4 PO; +OXYC-57 PO; +PANT40TA PO; +PRED20TA PO; +PREG1CAP28 PO; +SDMC1 PO; +THIA100T11 PO; +VENL75CA73 PO
--- NOTE | 2016-05-08 10:11 | DIAGNOSTIC IMAGING REPORT ---
RIGHT FEMUR 2 VIEWS CLINICAL HISTORY: RIGHT FEMUR PAIN Right RIGHT FEMUR 2 VIEWS CLINICAL HISTORY: RIGHT FEMUR PAIN Right FRACTURE COMPARISON: 04/15/2016 DISCUSSION: Proximal femoral fractures again noted. Operative reduction internal fixation. Stable. There continues to be moderate distraction of the oblique fracture of the proximal femoral shaft. IMPRESSION: Open reduction internal fixation of the oblique fracture of the femoral shaft. No change in appearance compared to the prior study. Electronically signed by: Jagdish Rehman M.D. 05/08/2016 10:10 AM Dictated Date/Time: 05/08/2016 10:08 AM
== END | disposition home or self-care (01) ==
LOC: C.RDSM 08:40
PROVIDERS: ATTEND Physical Medicine & Rehabilitation Sports Medicine
DX: Z09 Encounter for follow-up examination after completed treatment for conditions other than malignant neoplasm (principal)

== ENCOUNTER → 2016-05-08 | Outpatient (CLI) | payer BC ==
[2016-05-08 10:25] LABS: BASO % 0.3 %; BASO ABS # 0.02 K/uL (0-0.2); COMPLETE YES; EOS % 5.7 %; HEMATOCRIT 31.1 % (42-52); IG% 0.1 %; LYMPH % 17.3 %; LYMPH ABS # 1.33 K/uL (1.2-3.4); MEAN CELL VOLUME 96.6 fL (80-100); MEAN CORPUSCULAR HEMOGLOBIN 30.1 pg (25-34); MEAN CORPUSCULAR HGB CONC 31.2 g/dl (32-36); MEAN PLATELET VOLUME 9.9 fL (7.4-10.4); MONO % 9.2 %; NEUT % 67.4 %; PLATELET COUNT 415 K/uL (130-400); RED BLOOD COUNT 3.22 M/uL (4.7-6.1); WHITE BLOOD COUNT 7.71 K/uL (4.8-10.8)
[2016-05-08 10:35] LABS: ALT/SGPT 22 U/L (12-78); BLOOD UREA NITROGEN 14 mg/dl (7-18); BUN/CREATININE RATIO 15.3 (10-20); CALCIUM 8.4 mg/dl (8.5-10.1); CARBON DIOXIDE 27 mmol/L (21-32); CHLORIDE 105 mmol/L (98-107); GLUCOSE 75 mg/dl (70-99); POTASSIUM 4.4 mmol/L (3.5-5.1); SODIUM 141 mmol/L (136-145)
[2016-05-08 10:38] LABS: ALB/GLOB RATIO 0.4 (0.9-2); ALKALINE PHOSPHATASE 330 U/L (45-117); AST/SGOT 21 U/L (15-37)
== END ==
LOC: C.LABCC 10:02
PROVIDERS: ATTEND Internal Medicine
DX: D64.9 Anemia, unspecified (principal); I10 Essential (primary) hypertension; F10.20 Alcohol dependence, uncomplicated

== ENCOUNTER → 2016-05-10 | Outpatient (CLI) | payer BC ==
[2016-05-10 08:36] LABS: BLOOD UREA NITROGEN 12 mg/dl (7-18); BUN/CREATININE RATIO 17.4 (10-20); CALCIUM 8.3 mg/dl (8.5-10.1); CARBON DIOXIDE 27 mmol/L (21-32); CHLORIDE 105 mmol/L (98-107); CREATININE 0.69 mg/dl (0.60-1.40); GLUCOSE 79 mg/dl (70-99); POTASSIUM 4.2 mmol/L (3.5-5.1); SODIUM 141 mmol/L (136-145); URIC ACID 4.2 mg/dl (2.6-7.2)
== END ==
LOC: C.LABCC 08:08
PROVIDERS: ATTEND Internal Medicine
DX: M10.9 Gout, unspecified (principal)

== ENCOUNTER → 2016-05-12 | Outpatient (CLI) | payer BC ==
[2016-05-12 20:18] LABS: URINE APPEARANCE CLEAR (CLEAR); URINE BILIRUBIN NEG (NEG); URINE COLOR YELLOW; URINE NITRITE NEG (NEG); URINE PH 7.5 (4.5-7.5); URINE SPECIFIC GRAVITY 1.024 (1.000-1.030); UROBILINOGEN NEG (NEG)
[2016-05-12 20:19] LABS: MANUAL MICROSCOPIC REQUIRED? NO; REVIEW REQ? NO
== END ==
LOC: C.LABCC 17:20
PROVIDERS: ATTEND Internal Medicine
DX: R35.0 Frequency of micturition (principal); R30.9 Painful micturition, unspecified; R41.0 Disorientation, unspecified

== ENCOUNTER → 2016-05-16 | Outpatient (CLI) | payer BC ==
[2016-05-16 08:42] LABS: BASO % 0.4 %; BASO ABS # 0.02 K/uL (0-0.2); COMPLETE YES; EOS % 7.2 %; HEMATOCRIT 28.5 % (42-52); IG% 0.2 %; LYMPH ABS # 1.45 K/uL (1.2-3.4); MEAN CELL VOLUME 91.6 fL (80-100); MEAN CORPUSCULAR HEMOGLOBIN 28.9 pg (25-34); MEAN CORPUSCULAR HGB CONC 31.6 g/dl (32-36); MEAN PLATELET VOLUME 9.3 fL (7.4-10.4); MONO % 15.2 %; PLATELET COUNT 247 K/uL (130-400); RED BLOOD COUNT 3.11 M/uL (4.7-6.1); WHITE BLOOD COUNT 5.58 K/uL (4.8-10.8)
== END ==
LOC: C.LABCC 07:53
PROVIDERS: ATTEND Internal Medicine
DX: D64.9 Anemia, unspecified (principal)

== ENCOUNTER → 2016-06-05 | Outpatient (CLI) | payer BC | END | disposition home or self-care (01) | LOC: C.RDSM 14:27 | PROVIDERS: ATTEND Physical Medicine & Rehabilitation Sports Medicine | DX: Z96.7 Presence of other bone and tendon implants (principal) ==

== ENCOUNTER → 2016-06-28 | Outpatient (CLI) | payer BC ==
[2016-06-28 17:30] LABS: MEAN CELL VOLUME 88.6 fL (80-100); MEAN CORPUSCULAR HEMOGLOBIN 28.7 pg (25-34); MEAN CORPUSCULAR HGB CONC 32.4 g/dl (32-36); MEAN PLATELET VOLUME 9.5 fL (7.4-10.4); PLATELET COUNT 282 K/uL (130-400); RED BLOOD COUNT 4.29 M/uL (4.7-6.1); WHITE BLOOD COUNT 7.47 K/uL (4.8-10.8)
[2016-06-28 17:41] LABS: BLOOD UREA NITROGEN 8 mg/dl (7-18); BUN/CREATININE RATIO 8.8 (10-20); CALCIUM 8.6 mg/dl (8.5-10.1); CARBON DIOXIDE 29 mmol/L (21-32); CHLORIDE 103 mmol/L (98-107); CREATININE 0.85 mg/dl (0.60-1.40); GLUCOSE 104 mg/dl (70-99); POTASSIUM 3.4 mmol/L (3.5-5.1); SODIUM 138 mmol/L (136-145)
== END | disposition home or self-care (01) ==
LOC: C.LABPVFM 13:49
PROVIDERS: ATTEND Family Medicine
DX: I10 Essential (primary) hypertension (principal); D64.9 Anemia, unspecified

== ENCOUNTER → 2016-09-04 | Outpatient (CLI) | payer BC | END | disposition home or self-care (01) | LOC: C.RDSM 12:12 | PROVIDERS: ATTEND Physical Medicine & Rehabilitation Sports Medicine | DX: Z96.7 Presence of other bone and tendon implants (principal) ==

== ENCOUNTER 2016-10-11 17:23 | Inpatient (IN) | payer BC ==
[~2016-10-11] VITALS: Ht 170.2 cm; Wt 87.3 kg
[~2016-10-11 17:23] MED LIST changes: -B-CO1CAP17 PO; -FLV400 PO; -NICO21DI35 PO; -NICO21DI4 TD; -PRED20TA PO; -SDMC1 PO
[2016-10-11] MEDS ORDERED: B-CO1CAP17 PO (18:06)
[2016-10-11] MEDS ORDERED: FLV400 PO (18:06)
[2016-10-11] MEDS ORDERED: SODIUM CHLORIDE 0.9% 1000ML 1,000 ML IV STA (18:10)
[2016-10-11] MEDS ORDERED: ALBUT/IPRATROP 3MG/0.5MG NEB 3 ML VIAL INH STA (18:10)
[2016-10-11] MEDS ORDERED: LORAZEPAM 2 MG/ML 1 ML VIAL IV PRN (18:15)
[2016-10-11 18:40] LABS: BASO % 0.3 %; BASO ABS # 0.03 K/uL (0-0.2); COMPLETE YES; EOS % 3.4 %; HEMATOCRIT 34.9 % (42-52); IG% 0.3 %; LYMPH % 8.1 %; LYMPH ABS # 0.72 K/uL (1.2-3.4); MEAN CELL VOLUME 85.5 fL (80-100); MEAN CORPUSCULAR HEMOGLOBIN 30.1 pg (25-34); MEAN CORPUSCULAR HGB CONC 35.2 g/dl (32-36); MEAN PLATELET VOLUME 7.7 fL (7.4-10.4); MONO % 8.5 %; NEUT % 79.4 %; PLATELET COUNT 235 K/uL (130-400); RED BLOOD COUNT 4.08 M/uL (4.7-6.1); WHITE BLOOD COUNT 8.85 K/uL (4.8-10.8)
--- NOTE | 2016-10-11 18:41 | DIAGNOSTIC IMAGING REPORT ---
CHEST ONE VIEW PORTABLE CLINICAL HISTORY: Cough. Fever. COMPARISON STUDY: Chest CT September 04, 2015 and chest radiograph April 14, 2016. FINDINGS: There is a small left pleural effusion. There is mild left basilar opacity. Exam is mildly compromised by motion artifact. There is no evidence of pulmonary edema. No lobar consolidation. There is no pneumothorax. There is an age indeterminate but likely old right lower rib fracture. IMPRESSION: 1. No pneumothorax. 2. Small left pleural effusion with left basilar opacity which favors atelectasis. However, radiographic follow up is recommended to ensure resolution. 3. Age-indeterminate, but likely old, right lower rib fracture. Electronically signed by: Chaitanya Srivastava M.D. 10/11/2016 6:39 PM Dictated Date/Time: 10/11/2016 6:36 PM
[2016-10-11 18:58] LABS: ALT/SGPT 27 U/L (12-78); AST/SGOT 22 U/L (15-37); BLOOD UREA NITROGEN 8 mg/dl (7-18); BUN/CREATININE RATIO 10.1 (10-20); CALCIUM 8.6 mg/dl (8.5-10.1); CARBON DIOXIDE 27 mmol/L (21-32); CHLORIDE 85 mmol/L (98-107); CREATININE 0.81 mg/dl (0.60-1.40); GLUCOSE 88 mg/dl (70-99); MAGNESIUM 1.9 mg/dl (1.8-2.4); POTASSIUM 4.7 mmol/L (3.5-5.1); SODIUM 121 mmol/L (136-145)
[2016-10-11 19:05] LABS: ALB/GLOB RATIO 0.8 (0.9-2); ALKALINE PHOSPHATASE 136 U/L (45-117)
[2016-10-11] MEDS ORDERED: LORAZEPAM 2 MG/ML 1 ML VIAL IV STA (19:10)
[2016-10-11] MEDS ORDERED: LEVAQUIN 750MG / 150ML D5W IV STA (20:05)
--- NOTE | 2016-10-11 20:19 | DIAGNOSTIC IMAGING REPORT ---
CT OF THE HEAD WITHOUT CONTRAST CLINICAL HISTORY: Confusion. Multiple falls. COMPARISON STUDY: Head CT April 20, 2016. CT DOSE: 1146.30 mGy.cm TECHNIQUE: Helical axial images of the head were obtained without IV contrast. Automated exposure control was utilized for the study. FINDINGS: No acute intracranial hemorrhage, midline shift or mass effect is present. Ventricular system is normal. A few cisterns are patent. There are no extra-axial collections. Rodriguez-white differentiation is maintained. There are no findings to suggest acute dural sinus thrombosis or acute territorial infarct. Multiple small parafalcine lipomas are noted. There is no calvarial fracture. IMPRESSION: 1. No acute intracranial findings. 2. No calvarial fracture. Electronically signed by: Chaitanya Srivastava M.D. 10/11/2016 8:18 PM Dictated Date/Time: 10/11/2016 8:15 PM
--- NOTE | 2016-10-11 20:29 | DIAGNOSTIC IMAGING REPORT ---
CT OF THE CERVICAL SPINE WITHOUT CONTRAST CLINICAL HISTORY: Falls. COMPARISON STUDY: Cervical spine CT September 04, 2015. TECHNIQUE: Helical axial images of the cervical spine were obtained without IV contrast. Sagittal and coronal reconstructions were viewed. FINDINGS: Alignment of the cervical spine is anatomic. There is no acute cervical spine fracture. Degenerative changes at the C1-C2 articulation are noted. There is mild to moderate multilevel degenerative disc disease and facet arthrosis. There is no prevertebral edema. A small left pleural effusion is partially imaged. There is emphysema within visualized portions of the lungs. No pneumothorax is identified within the lung apices. IMPRESSION: 1. No acute cervical spine fracture or subluxation. 2. Partially visualized left pleural effusion. Electronically signed by: Chaitanya Srivastvaa M.D. 10/11/2016 8:28 PM Dictated Date/Time: 10/11/2016 8:22 PM
--- NOTE | 2016-10-11 21:52 | EMERGENCY ROOM VISIT NOTE ---
History Report prepared by Hilary: Shukri Sadler Under the Supervision of: Norberto BravoO. First contact with patient: 17:53 Chief Complaint: FALL Stated Complaint: TREMORS, FALLS History of Present Illness The patient is a 65 year old male who presents to the Emergency Room with a constant altered mental status beginning 3 days ago. The patient's states that three days ago the patient was experiencing right-sided facial edema and was not feeling well after supper. She reports that the patient fell out of his chair and was incoherent with his eyes open, shaking. The notes that she called EMS, and the patient refused to go to the ED. She states that EMS found the patient was extremely hypotensive, and they stayed with him until his heart rate increased. The reports that the patient has been falling more frequently, and he is recovering from a broken femur that occurred 5 months ago. She notes that since the fall, he has to think more often about what he is going to say, and that is not baseline. The patient complains of fevers, cough, sorethroat, rhinorrhea, lower abdominal pain, constipation, shortness of breath, and back pain. He denies pain upon swallowing, diarrhea, hematochezia, urinary symptoms, and chest pain. The patient reports that he has a history of a spinal infection and smoking. He denies a history of pneumonia, and he does not use any breathing treatments at home. The patient's records state the patient has a history of alcohol abuse and COPD. Source of History: patient, spouse/significant other Onset: 3 days ago Position: other (global) Quality: other (altered mental status) Timing: constant Associated Symptoms: + fevers, + sorethroat, + cough, + SOB, + abdominal pain, + back pain, + weakness, No chest pain, No hematochezia, No diarrhea, No urinary symptoms Note: Associated symptoms: rhinorrhea and constipation. Review of Systems See HPI for pertinent positives & negatives. A total of 10 systems reviewed and were otherwise negative. Past Medical & Surgical Medical Problems: (1) ZAK (acute kidney injury) (2) Alcohol abuse (3) Alcoholic Hyponatremia (4) COPD (chronic obstructive pulmonary disease) (5) Femur fracture, right (6) Hemorrhagic shock (7) History of hypertension (8) Hypertension (9) Hyponatremia with decreased serum osmolality (10) Hypotension (11) Metabolic encephalopathy (12) Multiple fractures of ribs of left side (13) Neuropathy (14) Tachycardia Family History Heart disease Social History Smoking Status: Current Every Day Smoker Alcohol Use: none Drug Use: none Marital Status: Housing Status: lives with family Occupation Status: unemployed Current/Historical Medications Scheduled Atorvastatin (Lipitor), 40 MG PO QAM Folic Acid (Folic Acid), 400 MCG PO QAM Lisinopril (Zestril), 10 MG PO QAM Metoprolol Succ (Toprol Xl) (Toprol-Xl), 25 MG PO QAM Oxcarbazepine (Trileptal), 1 TAB PO BID Pregabalin (Lyrica), 75 MG PO BID Venlafaxine Hcl (Venlafaxine Extended Rel), 150 MG PO QAM Vitamin B Cmplx/Vitc/Folic Ac (Nephrocaps), 1 CAP PO QAM Scheduled PRN Acetaminophen (Tylenol), 325-650 MG PO Q4H PRN for Pain Albuterol Hfa (Ventolin Hfa), 1-2 PUFFS INH Q4 PRN for Shortness of Breath Indomethacin (Indocin), 50 MG PO DAILY PRN for FLARE UP Allergies Coded Allergies: No Known Allergies (Unverified , 10/11/16) Physical Exam Vital Signs Date Time Temp Pulse Resp B/P (MAP) Pulse Ox O2 Delivery O2 Flow Rate FiO2 10/12/16 00:00 75 18 115/76 93 Room Air 10/11/16 22:02 86 10/11/16 22:00 77 18 113/76 94 Room Air 10/11/16 19:45 93 22 146/89 96 Room Air 10/11/16 19:00 90 22 135/84 98 Room Air 10/11/16 17:59 94 10/11/16 17:31 38.5 100 18 139/84 93 Room Air Physical Exam GENERAL: alert, well appearing, well nourished, no distress, non-toxic HEAD: Small abrasion to the left superior pinna EYE EXAM: normal conjunctiva, PERRL and EOM's grossly intact OROPHARYNX: no exudate, no erythema, lips, buccal mucosa, and tongue normal and mucous membranes are dry NECK: supple, no nuchal rigidity, no adenopathy, non-tender LUNGS: Decreased breath sounds bilaterally, scattered expiatory wheezing, rales at the left base HEART: no murmurs, S1 normal and S2 normal ABDOMEN: abdomen soft, non-tender, normo-active bowel sounds, no masses, no rebound or guarding. BACK: Back is symmetrical on inspection and there is no deformity, no midline tenderness, no CVA tenderness. SKIN: no rashes and no bruising UPPER EXTREMITIES: Several small superficial abrasions to the left forearm, no joint effusion, no deformity, pulses are normal. LOWER EXTREMITIES: Bilateral, symmetric edema. No joint effusion, no deformity, pulses normal. NEURO EXAM: Confused, mildly agitated, per family this is not baseline. The patient will not agree with further treatment, moving all extremities simultaneously. Medical Decision & Procedures ER Provider Diagnostic Interpretation: Radiology results have been interpreted by the radiologist and reviewed by me. CT OF THE HEAD WITHOUT CONTRAST CLINICAL HISTORY: Confusion. Multiple falls. COMPARISON STUDY: Head CT April 20, 2016. CT DOSE: 1146.30 mGy.cm TECHNIQUE: Helical axial images of the head were obtained without IV contrast. Automated exposure control was utilized for the study. FINDINGS: No acute intracranial hemorrhage, midline shift or mass effect is present. Ventricular system is normal. A few cisterns are patent. There are no extra-axial collections. Rodriguez-white differentiation is maintained. There are no findings to suggest acute dural sinus thrombosis or acute territorial infarct. Multiple small parafalcine lipomas are noted. There is no calvarial fracture. IMPRESSION: 1. No acute intracranial findings. 2. No calvarial fracture. Electronically signed by: Chaitanya Srivastava M.D. 10/11/2016 8:18 PM Dictated Date/Time: 10/11/2016 8:15 PM CHEST ONE VIEW PORTABLE CLINICAL HISTORY: Cough. Fever. COMPARISON STUDY: Chest CT September 04, 2015 and chest radiograph April 14, 2016. FINDINGS: There is a small left pleural effusion. There is mild left basilar opacity. Exam is mildly compromised by motion artifact. There is no evidence of pulmonary edema. No lobar consolidation. There is no pneumothorax. There is an age indeterminate but likely old right lower rib fracture. IMPRESSION: 1. No pneumothorax. 2. Small left pleural effusion with left basilar opacity which favors atelectasis. However, radiographic follow up is recommended to ensure resolution. 3. Age-indeterminate, but likely old, right lower rib fracture. Electronically signed by: Chaitanya Srivastava M.D. 10/11/2016 6:39 PM Dictated Date/Time: 10/11/2016 6:[address] OF THE CERVICAL SPINE WITHOUT CONTRAST CLINICAL HISTORY: Falls. COMPARISON STUDY: Cervical spine CT September 04, 2015. TECHNIQUE: Helical axial images of the cervical spine were obtained without IV contrast. Sagittal and coronal reconstructions were viewed. FINDINGS: Alignment of the cervical spine is anatomic. There is no acute cervical spine fracture. Degenerative changes at the C1-C2 articulation are noted. There is mild to moderate multilevel degenerative disc disease and facet arthrosis. There is no prevertebral edema. A small left pleural effusion is partially imaged. There is emphysema within visualized portions of the lungs. No pneumothorax is identified within the lung apices. IMPRESSION: 1. No acute cervical spine fracture or subluxation. 2. Partially visualized left pleural effusion. Electronically signed by: Chaitanya Srivastava M.D. 10/11/2016 8:28 PM Dictated Date/Time: 10/11/2016 8:22 PM Laboratory Results Test 10/11/16 18:26 10/11/16 20:44 Immature Granulocyte % (Auto) 0.3 % White Blood Count 8.85 K/uL (4.8-10.8) Red Blood Count 4.08 M/uL (4.7-6.1) Hemoglobin 12.3 g/dL (14.0-18.0) Hematocrit 34.9 % (42-52) Mean Corpuscular Volume 85.5 fL (80-100) Mean Corpuscular Hemoglobin 30.1 pg (25-34) Mean Corpuscular Hemoglobin Concent 35.2 g/dl (32-36) Platelet Count 235 K/uL (130-400) Mean Platelet Volume 7.7 fL (7.4-10.4) Neutrophils (%) (Auto) 79.4 % Lymphocytes (%) (Auto) 8.1 % Monocytes (%) (Auto) 8.5 % Eosinophils (%) (Auto) 3.4 % Basophils (%) (Auto) 0.3 % Neutrophils # (Auto) 7.02 K/uL (1.4-6.5) Lymphocytes # (Auto) 0.72 K/uL (1.2-3.4) Monocytes # (Auto) 0.75 K/uL (0.11-0.59) Eosinophils # (Auto) 0.30 K/uL (0-0.5) Basophils # (Auto) 0.03 K/uL (0-0.2) Immature Granulocyte # (Auto) 0.03 K/uL (0.00-0.02) Osmolality 248 mOsm/kg (280-300) Lactic Acid Level 0.7 mmol/L (0.4-2.0) Magnesium Level 1.9 mg/dl (1.8-2.4) Total Bilirubin 0.4 mg/dl (0.2-1) Aspartate Amino Transf (AST/SGOT) 22 U/L (15-37) Alanine Aminotransferase (ALT/SGPT) 27 U/L (12-78) Alkaline Phosphatase 136 U/L (45-117) Troponin I < 0.015 ng/ml (0-0.045) Total Protein 7.0 gm/dl (6.4-8.2) Albumin 3.0 gm/dl (3.4-5.0) Globulin 4.0 gm/dl (2.5-4.0) Albumin/Globulin Ratio 0.8 (0.9-2) Lipase 72 U/L (73-393) Hepatitis C Antibody Screen NEG (NEG) Ethyl Alcohol mg/dL < 3.0 mg/dl (0-3) Laboratory results per my review. Medications Administered Medications (Trade) Dose Ordered Sig/Feroz Route Start Time Stop Time Status Last Admin Dose Admin Albuterol/ Ipratropium (Duoneb) 3 ml NOW STAT INH 10/11/16 18:10 10/11/16 18:13 DC 10/11/16 19:00 3 ML Lorazepam (Ativan Inj) 1 mg NOW PRN IV 10/11/16 18:15 10/12/16 01:52 DC 10/11/16 18:52 1 MG Sodium Chloride 1,000 ml @ 999 mls/hr Q1H1M STAT IV 10/11/16 18:10 10/11/16 19:10 DC 10/11/16 18:10 999 MLS/HR Lorazepam (Ativan Inj) 1 mg NOW STAT IV 10/11/16 19:10 10/11/16 19:11 DC 10/11/16 20:10 1 MG Levofloxacin (Levaquin / D5W) 750 mg NOW STAT IV 10/11/16 20:05 10/11/16 20:06 DC 10/11/16 20:10 750 MG ECG Indication: altered mental status Rate (beats per minute): 96 Rhythm: sinus rhythm Findings: no acute ischemic change, no ectopy, other (Normal axis, normal intervals) ED Course 1757: The patient was evaluated in room C06. A complete history and physical exam was performed. 1809: Ordered Sodium Chloride 1000 ml @ 999 mls/hr IV, Duoneb 3 ml INH 1814: Ordered Ativan Inj 1 mg IV 1909: Ordered Ativan Inj 1 mg IV 2004: Upon reevaluation, the patient is resting. The repeat lung treatment has improved his symptoms. I discussed the findings and the treatment plan with the patient. He and his family express agreement and understanding. Ordered Levofloxacin 750 mg IV. 2009: I spoke with Dr. Kim of the [facility]. The patient will be evaluated for further management. Medical Decision Differential diagnoses includes but is not limited to toxic, metabolic, infectious, traumatic, cardiac, neurologic, hematologic, psychiatric and inflammatory etiologies. Medication Reconciliation: I attest that I have personally reviewed the patient' s current medication list. Blood pressure screening: Patient was found to have a slightly elevated blood pressure due to circumstances. I do not believe that the patient requires hypertension monitoring. Patient with altered mental status here found to have pneumonia and hyponatremia. Vital signs stable. Patient with no apparent seizure activity. Patient has had hyponatremia previously however never this severe. Neuroimaging otherwise negative for acute process. Labs otherwise reassuring. Doubt bacteremia/sepsis. Family made aware of results. Patient required small doses of Ativan to help maintain his cooperation as he would intermittently get agitated. Patient admitted for continued monitoring, was given IV fluids in the emergency room. Did not feel patient required ICU monitoring or 3% saline. Patient with normal renal function. Consults Time Called: 2008 Consulting Physician: Dr. Kim, [facility] Returned Call: [address] Kim of the [facility]. The patient will be evaluated for further management. Impression Primary Impression: PNA (pneumonia) Additional Impressions: Hypernatremia Confusion COPD (chronic obstructive pulmonary disease) Scribe Attestation The scribe's documentation has been prepared under my direction and personally reviewed by me in its entirety. I confirm that the note above accurately reflects all work, treatment, procedures, and medical decision making performed by me. Departure Information Dispostion Being Evaluated By Hospitalist Referrals Jakob Cage M.D. (PCP) Patient Instructions My [facility] Problem Qualifiers Primary Impression: PNA (pneumonia) Pneumonia type: due to unspecified organism Laterality: left Lung location : lower lobe of lung Qualified Codes: J18.1 - Lobar pneumonia, unspecified organism Additional Impressions: COPD (chronic obstructive pulmonary disease) COPD type: unspecified COPD Qualified Codes: J44.9 - Chronic obstructive pulmonary disease, unspecified
[2016-10-12] VITALS (12 sets, daily range): BP systolic 129–148; BP diastolic 79–109; PULSE 74–104; TEMP 36.7–37; O2SAT 94–96; Ht 170.2 cm; Wt 87.3 kg
[2016-10-12] MEDS ORDERED: ACETAMINOPHEN 325 MG TAB PO PRN (00:45)
[2016-10-12] MEDS ORDERED: NITROGLYCERIN 0.4 MG SL PER TAB CHARGE SL PRN (00:45)
[2016-10-12] MEDS ORDERED: POLYETHYLENE (MIRALAX) 17 GM PACK PO PRN (00:45)
[2016-10-12] MEDS ORDERED: ONDANSETRON INJ 2 MG/ML 2 ML VIAL IV PRN (00:45)
--- NOTE | 2016-10-12 00:46 | History and Physical ---
History & Physical Date & Time of Service: Oct 12, 2016 at 00:46 Chief Complaint: Tremors, Falls Primary Care Physician: Jakob Cage M.D. History of Present Illness Source: spouse 65-year-old male with a past medical history of chronic alcohol abuse, chronic hyponatremia, COPD presented to the ER with complaints of worsening mental status. Per the patient's , the patient had right-sided facial edema about 3 days ago and have been having issues with ambulation. The patient is currently recovering from femur fracture which occurred about 5 months ago. She noted that he had been falling more often and has been having staring spells. She however denied any jerky movements with had noticed his staring spells have increased. She also stated that he developed a fever this afternoon Past Medical/Surgical History Medical Problems: (1) Alcohol abuse Status: Chronic (2) Alcoholic Hyponatremia Status: Chronic (3) COPD (chronic obstructive pulmonary disease) Status: Chronic (4) Hypertension Status: Chronic (5) Metabolic encephalopathy Status: Chronic (6) Neuropathy Status: Chronic Family History Heart disease Social History Smoking Status: Current Every Day Smoker Drug Use: none Marital Status: Housing status: lives with family Occupational Status: unemployed Multi-Drug Resistant Organisms History of MDRO: No Allergies Coded Allergies: No Known Allergies (Unverified , 10/11/16) Home Medications Scheduled Atorvastatin (Lipitor), 40 MG PO QAM Folic Acid (Folic Acid), 400 MCG PO QAM Lisinopril (Zestril), 10 MG PO QAM Metoprolol Succ (Toprol Xl) (Toprol-Xl), 25 MG PO QAM Nicotine (Nicoderm Cq), 1 PATCH TD QAM Oxcarbazepine (Trileptal), 1 TAB PO BID Pregabalin (Lyrica), 75 MG PO BID Venlafaxine Hcl (Venlafaxine Extended Rel), 150 MG PO QAM Vitamin B Cmplx/Vitc/Folic Ac (Nephrocaps), 1 CAP PO QAM Scheduled PRN Acetaminophen (Tylenol), 325-650 MG PO Q4H PRN for Pain Albuterol Hfa (Ventolin Hfa), 1-2 PUFFS INH Q4 PRN for Shortness of Breath Indomethacin (Indocin), 50 MG PO DAILY PRN for FLARE UP Review of Systems unable to obtain as patient is very drowsy Physical Exam Vital Signs Date Time Temp Pulse Resp B/P (MAP) Pulse Ox O2 Delivery O2 Flow Rate FiO2 10/12/16 00:00 75 18 115/76 93 Room Air 10/11/16 22:02 86 10/11/16 22:00 77 18 113/76 94 Room Air 10/11/16 19:45 93 22 146/89 96 Room Air 10/11/16 19:00 90 22 135/84 98 Room Air 10/11/16 17:59 94 10/11/16 17:31 38.5 100 18 139/84 93 Room Air General Appearance: WD/WN, + mild distress Neck: supple Respiratory/Chest: chest non-tender, lungs clear, + decreased breath sounds Cardiovascular: + tachycardia Abdomen/GI: normal bowel sounds, non tender, soft Extremities/Musculoskelatal: no pedal edema Neurologic/Psych: + pertinent finding (drowsy) Skin: normal color Diagnostics Laboratory Results Results Past 24 Hours Test 10/11/16 18:26 10/11/16 20:44 Range/Units White Blood Count 8.85 4.8-10.8 K/uL Red Blood Count 4.08 4.7-6.1 M/uL Hemoglobin 12.3 14.0-18.0 g/dL Hematocrit 34.9 42-52 % Mean Corpuscular Volume 85.5 80-100 fL Mean Corpuscular Hemoglobin 30.1 25-34 pg Mean Corpuscular Hemoglobin Concent 35.2 32-36 g/dl Platelet Count 235 130-400 K/uL Mean Platelet Volume 7.7 7.4-10.4 fL Neutrophils (%) (Auto) 79.4 % Lymphocytes (%) (Auto) 8.1 % Monocytes (%) (Auto) 8.5 % Eosinophils (%) (Auto) 3.4 % Basophils (%) (Auto) 0.3 % Neutrophils # (Auto) 7.02 1.4-6.5 K/uL Lymphocytes # (Auto) 0.72 1.2-3.4 K/uL Monocytes # (Auto) 0.75 0.11-0.59 K/uL Eosinophils # (Auto) 0.30 0-0.5 K/uL Basophils # (Auto) 0.03 0-0.2 K/uL RDW Standard Deviation 44.2 36.4-46.3 fL RDW Coefficient of Variation 14.2 11.5-14.5 % Immature Granulocyte % (Auto) 0.3 % Immature Granulocyte # (Auto) 0.03 0.00-0.02 K/uL Sodium Level 121 136-145 mmol/L Potassium Level 4.7 3.5-5.1 mmol/L Chloride Level 85 98-107 mmol/L Carbon Dioxide Level 27 21-32 mmol/L Anion Gap 9.0 3-11 mmol/L Blood Urea Nitrogen 8 7-18 mg/dl Creatinine 0.81 0.60-1.40 mg/dl Est Creatinine Clear Calc Drug Dose 98.7 ml/min Estimated GFR () 109.6 Estimated GFR (Non- 94.6 BUN/Creatinine Ratio 10.1 10-20 Random Glucose 88 70-99 mg/dl Osmolality 248 280-300 mOsm/kg Lactic Acid Level 0.7 0.4-2.0 mmol/L Calcium Level 8.6 8.5-10.1 mg/dl Magnesium Level 1.9 1.8-2.4 mg/dl Total Bilirubin 0.4 0.2-1 mg/dl Aspartate Amino Transf (AST/SGOT) 22 15-37 U/L Alanine Aminotransferase (ALT/SGPT) 27 12-78 U/L Alkaline Phosphatase 136 45-117 U/L Troponin I < 0.015 0-0.045 ng/ml Total Protein 7.0 6.4-8.2 gm/dl Albumin 3.0 3.4-5.0 gm/dl Globulin 4.0 2.5-4.0 gm/dl Albumin/Globulin Ratio 0.8 0.9-2 Lipase 72 73-393 U/L Ethyl Alcohol mg/dL < 3.0 0-3 mg/dl Microbiology Results 10/11/16 Blood Culture, Received Pending 10/11/16 Blood Culture, Received Pending Diagnostic Radiology CT OF THE HEAD WITHOUT CONTRAST CLINICAL HISTORY: Confusion. Multiple falls. COMPARISON STUDY: Head CT April 20, 2016. CT DOSE: 1146.30 mGy.cm TECHNIQUE: Helical axial images of the head were obtained without IV contrast. Automated exposure control was utilized for the study. FINDINGS: No acute intracranial hemorrhage, midline shift or mass effect is present. Ventricular system is normal. A few cisterns are patent. There are no extra-axial collections. Rodriguez-white differentiation is maintained. There are no findings to suggest acute dural sinus thrombosis or acute territorial infarct. Multiple small parafalcine lipomas are noted. There is no calvarial fracture. IMPRESSION: 1. No acute intracranial findings. 2. No calvarial fracture. Electronically signed by: Chaitanya Srivastava M.D. 10/11/2016 8:18 PM CHEST ONE VIEW PORTABLE CLINICAL HISTORY: Cough. Fever. COMPARISON STUDY: Chest CT September 04, 2015 and chest radiograph April 14, 2016. FINDINGS: There is a small left pleural effusion. There is mild left basilar opacity. Exam is mildly compromised by motion artifact. There is no evidence of pulmonary edema. No lobar consolidation. There is no pneumothorax. There is an age indeterminate but likely old right lower rib fracture. IMPRESSION: 1. No pneumothorax. 2. Small left pleural effusion with left basilar opacity which favors atelectasis. However, radiographic follow up is recommended to ensure resolution. 3. Age-indeterminate, but likely old, right lower rib fracture. Electronically signed by: Chaitanya Srivastava M.D. 10/11/2016 6:[address] OF THE CERVICAL SPINE WITHOUT CONTRAST CLINICAL HISTORY: Falls. COMPARISON STUDY: Cervical spine CT September 04, 2015. TECHNIQUE: Helical axial images of the cervical spine were obtained without IV contrast. Sagittal and coronal reconstructions were viewed. FINDINGS: Alignment of the cervical spine is anatomic. There is no acute cervical spine fracture. Degenerative changes at the C1-C2 articulation are noted. There is mild to moderate multilevel degenerative disc disease and facet arthrosis. There is no prevertebral edema. A small left pleural effusion is partially imaged. There is emphysema within visualized portions of the lungs. No pneumothorax is identified within the lung apices. IMPRESSION: 1. No acute cervical spine fracture or subluxation. 2. Partially visualized left pleural effusion. Electronically signed by: Chaitanya Srivastava M.D. 10/11/2016 8:28 PM EKG Normal sinus rhythm Normal ECG When compared with ECG of 15-APR-2016 19:53, Nonspecific T wave abnormality, improved in Inferior leads Nonspecific T wave abnormality no longer evident in Anterolateral leads Confirmed by JACKELYN MOORE ([id number]) on 10/11/2016 10:33:15 PM Impression Assessment and Plan 65-year-old male with a past medical history of chronic alcohol abuse, chronic hyponatremia, COPD presented to the ER with complaints of worsening mental status. Per the patient's , the patient had right-sided facial edema about 3 days ago and have been having issues with ambulation. The patient is currently recovering from femur fracture which occurred about 5 months ago. She noted that he had been falling more often and has been having staring spells. Altered mental status: likely sec to pneumonia - CXR: 1. No pneumothorax. 2. Small left pleural effusion with left basilar opacity which favors atelectasis. However, radiographic follow up is recommended to ensure resolution. 3. Age-indeterminate, but likely old, right lower rib fracture. Head CT: negative - Levaquin for possible pneumonia - BC pending - UA pending Hyponatremia :? sec to SIADH - sodium at 121, serum osmolality 248 - Urine osmolality ordered - Fluid restriction Alcohol abuse: - CIWA protocol Tobacco abuse: nebulizers PRN for dyspnea, nicotine patch HTN: Continue home meds Hyperlipidemia: cont lipitor GERD: continue protonix Anxiety/Depression: - continue effexor and trileptal Neuropathy: - Lyrica DVt prophylaxis: SCD Full code dispo: admitted to tele Attending Addendum: I physically seen and examined this patient, have supervised the medical residents activities, and agree with the H&P as noted above with the following exceptions: NONE The patient is awake, alert and oriented 1, normocephalic and atraumatic, lying in bed and in no acute distress. HEENT--PERRL, EOMI, mucous membranes and oropharynx normal. Neck--supple, no JVD or bruits, thyroid normal, trachea midline, no adenopathy. Heart--normal S1 and S2, no extra beats, no murmurs, rubs or gallops. Lungs--coarse breath sounds bilaterally, with decreased breath sounds left base , no respiratory distress, no accessory muscle use. Abdomen--normal bowel sounds and soft, nontender and nondistended, no hernias or masses, no organomegaly. Extremities--no cyanosis, clubbing or edema. There are good distal pulses b/l. Dermatologic--normal skin turgor, normal color, warm and dry, no abnormal lymph nodes, no rash. Neurologic--cranial nerves II through XII grossly intact. Rheumatologic--normal range of motion, nontender, muscles and joints. Psychiatric--normal affect. Assessment and Plan: 1. Altered mental status--possible etiologies include pneumonia, hyponatremia, alcohol abuse history with Warnicke's encephalopathy, inappropriate use of prescription medications Effexor, Trileptal and/or Lyrica. Left lower lobe pneumonia would be treated empirically with Levaquin, nebulizers , nasal cannula oxygen, and serial examination. Hyponatremia with sodium of 121 and the addition of serum osmolality to the labs revealed hyponatremia with hypoosmolality. Fluid restriction has been ordered. We'll await urine osmolality to assess for possible SIADH and more specific treatment. Alcohol abuse history with possible Warnicke's encephalopathy and/or withdrawal- -place on CIWA protocol. Family insisted that appropriate use of medications has been done. Level of Care Telemetry Resuscitation Status FULL RESUSCITATION VTE Prophylaxis VTE Risk Assessment Done? Y/N: Yes Risk Level: Moderate Given or contraindicated: SCD's
[2016-10-12 06:34] LABS: MEAN CORPUSCULAR HEMOGLOBIN 30.1 pg (25-34); MEAN CORPUSCULAR HGB CONC 34.2 g/dl (32-36); MEAN PLATELET VOLUME 8.2 fL (7.4-10.4); PLATELET COUNT 245 K/uL (130-400); RED BLOOD COUNT 4.32 M/uL (4.7-6.1)
[2016-10-12 07:01] LABS: CALCIUM 9.1 mg/dl (8.5-10.1); CREATININE 0.82 mg/dl (0.60-1.40); POTASSIUM 4.7 mmol/L (3.5-5.1)
[2016-10-12] MEDS: ASPIRIN 81 MG ECTAB PO SCH (07:32)
[2016-10-12] MEDS ORDERED: PNEUMOCOCCAL POLYSACCHARIDES 25 MCG/0.5 ML VIAL/SYR IM. ONE (08:00)
[2016-10-12] MEDS ORDERED: PNEUMOCOCCAL ADMINISTRATION CHARGE ONE (08:00)
[2016-10-12] MEDS ORDERED: ALBUTEROL HFA 8 GM INHALER INH PRN (10:00)
[2016-10-12] MEDS: VENLAFAXINE HCL XR 150 MG CAPXR PO SCH (10:50)
[2016-10-12] MEDS: ATORVASTATIN 40 MG TAB PO SCH (10:50)
[2016-10-12] MEDS: NEPHROCAPS PO SCH (10:51)
[2016-10-12] MEDS: LISINOPRIL 10 MG TAB PO SCH (10:51)
[2016-10-12] MEDS: METOPROLOL SUCC 25MG EXT REL TAB PO SCH (10:51)
--- NOTE | 2016-10-12 13:56 | Progress Note ---
Progress Note Date of Service Oct 12, 2016. Progress Note Patient minute after midnight. Patient seen and examined by me. He complains of confusion, but states that this has been going on for quite some time. He also complains of intermittent tremors. He also complains of fatigue. Patient does not seem to be a reliable historian, and has a history of alcohol abuse. The patient denies fevers, chills, sweats, chest pain, palpitations, claudication, cough, wheezing, shortness of breath, nausea, vomiting, abdominal pain, dysuria, hematuria, urinary retention, paralysis, weakness, numbness and tingling. Physical exam pertinent for wheezing in the lungs throughout. Patient has trace pitting edema in lower extremities bilaterally. Physical exam otherwise unremarkable. Patient is alert and oriented 3, motor and sensory intact. A/P: Altered mental status, tremors--could be secondary to alcohol vs hyponatremia vs new baseline -Continue alcohol withdrawal protocol -Banana bag x 1 at 125 cc/hr -Continue folic acid and B vitamin supplements -Blood cultures pending -UA pending, culture if indicated Hyponatremia--improving -Sodium 121 on admission, received 1 L bolus of normal saline -Sodium improved to 127 on 10/12 -Recheck PRP in afternoon -Urine and serum osmolality both low
[2016-10-12] MEDS ORDERED: MULTI-VITAMIN INFUSION INJ 10 ML, THIAMINE HCL INJ 100 MG, FoLIC ACID INJ 1 MG in SODIU... IV ONE (14:00)
[2016-10-12 15:06] LABS: BUN/CREATININE RATIO 14.8 (10-20); CALCIUM 8.6 mg/dl (8.5-10.1); CREATININE 0.81 mg/dl (0.60-1.40); POTASSIUM 4.5 mmol/L (3.5-5.1)
[2016-10-12] MEDS ORDERED: LEVOFLOXACIN / D5W 500 MG in PREMIXED IN D5W 100 ML IV SCH (20:00)
[2016-10-12] MEDS: OXCARBAZEPINE 150 MG TAB PO SCH (20:49)
[2016-10-12] MEDS: PREGABALIN 75 MG CAP PO SCH (20:53)
[2016-10-12 21:07] LABS: URINE APPEARANCE CLEAR (CLEAR); URINE BILIRUBIN NEG (NEG); URINE COLOR YELLOW; URINE NITRITE NEG (NEG); URINE SPECIFIC GRAVITY 1.017 (1.000-1.030); UROBILINOGEN NEG (NEG); ZZUR CULT IF INDIC CLEAN CATCH NO
[2016-10-12 21:15] LABS: MANUAL MICROSCOPIC REQUIRED? NO; REVIEW REQ? NO
[2016-10-13] VITALS (7 sets, daily range): BP systolic 134–149; BP diastolic 82–101; PULSE 82–86; TEMP 36.5–36.9; O2SAT 93–95
[2016-10-13 06:51] LABS: HEMATOCRIT 33.3 % (42-52); MEAN CELL VOLUME 86.3 fL (80-100); MEAN CORPUSCULAR HEMOGLOBIN 30.8 pg (25-34); MEAN CORPUSCULAR HGB CONC 35.7 g/dl (32-36); MEAN PLATELET VOLUME 7.8 fL (7.4-10.4); PLATELET COUNT 210 K/uL (130-400); RED BLOOD COUNT 3.86 M/uL (4.7-6.1); WHITE BLOOD COUNT 6.85 K/uL (4.8-10.8)
[2016-10-13 07:15] LABS: BUN/CREATININE RATIO 11.5 (10-20); CALCIUM 8.8 mg/dl (8.5-10.1); CREATININE 0.72 mg/dl (0.60-1.40)
[2016-10-13] MEDS ORDERED: NICOTINE 21 MG/24 HR TDSY TD SCH (09:00)
[2016-10-13] MEDS ORDERED: FoLIC ACID TAB 400 MCG TAB PO SCH (09:00)
[2016-10-13] MEDS: OXCARBAZEPINE 150 MG TAB PO SCH (09:09)
[2016-10-13] MEDS: ASPIRIN 81 MG ECTAB PO SCH (09:09)
[2016-10-13] MEDS: NEPHROCAPS PO SCH (09:09)
[2016-10-13] MEDS: VENLAFAXINE HCL XR 150 MG CAPXR PO SCH (09:09)
[2016-10-13] MEDS: LISINOPRIL 10 MG TAB PO SCH (09:10)
[2016-10-13] MEDS: ATORVASTATIN 40 MG TAB PO SCH (09:10)
[2016-10-13] MEDS: METOPROLOL SUCC 25MG EXT REL TAB PO SCH (09:10)
[2016-10-13] MEDS: PREGABALIN 75 MG CAP PO SCH (09:15)
[2016-10-13] MEDS ORDERED: SODIUM CHLORIDE 0.9% 1000ML 1,000 ML IV SCH (09:45)
[2016-10-13 13:00] LABS: BUN/CREATININE RATIO 11.8 (10-20); CALCIUM 8.8 mg/dl (8.5-10.1); CREATININE 0.73 mg/dl (0.60-1.40); POTASSIUM 4.1 mmol/L (3.5-5.1)
--- NOTE | 2016-10-13 13:29 | Discharge Instructions ---
Discharge Instructions Date of Service Oct 13, 2016. Admission Reason for Admission: Altered Mental Status, Hyponatremia With Decreased Discharge Discharge Diagnosis / Problem: Hyponatremia, tremors Discharge Goals Goal(s): Decrease discomfort, Improve function, Diagnostic testing, Therapeutic intervention Activity Recommendations Activity Limitations: resume your previous activity (as tolerated) . Instructions / Follow-Up Instructions / Follow-Up You were admitted to the hospital with low sodium and tremors. You were found to have low sodium in the blood; however, upon review of previous labs, it appears that this has occurred intermittently in the past for you before. Your sodium improved with some IV fluids. Your tremors also resolved spontaneously. You were given a "banana bag" of multivitamins, vitamin B1 and folic acid due to your history of alcohol abuse. You are now medically stable for discharge as your sodium is improved and your tremors have stopped. Medications: *No changes have been made to your medications. Please continue to take your folic acid and B vitamins at discharge. Follow up: *You have been scheduled to follow up with your primary care provider, Dr. Cage, on October 18 at 9:30 am. Please seek medical attention if you experience fevers, chills, sweats, dizziness/lightheadedness, loss of consciousness, chest pain, shortness of breath, nausea, vomiting, numbness or tingling, tremors/shaking, or severe anxiety. Current Hospital Diet Patient's current hospital diet: AHA Diet (Heart Healthy) Discharge Diet Recommended Diet: AHA Diet (Heart Healthy) Pending Studies Studies pending at discharge: yes List of pending studies: Final blood cultures. Preliminary cultures no growth to date. Medical Emergencies . Who to Call and When: Medical Emergencies: If at any time you feel your situation is an emergency, please call 911 immediately. . Non-Emergent Contact Non-Emergency issues call your: Primary Care Provider Call Non-Emergent contact if: you have a fever, you have any medication questions . Past History Medical & Surgical History: (1) Tremor (2) Hyponatremia with decreased serum osmolality . "Provider Documentation" section prepared by Amy Williamson. . VTE Core Measure Inpt VTE Proph given/why not?: SCD's
--- NOTE | 2016-10-13 14:06 | Discharge Summary ---
Discharge Summary Date of Service Oct 13, 2016. (Amy Williamson, RAFAEL) Discharge Summary Admission Date: Oct 12, 2016 at 00:46 Discharge Date: Oct 13, 2016 Discharge Disposition: Home Principal Diagnosis: Hyponatremia, tremors Problems/Secondary Diagnoses: (1) COPD (chronic obstructive pulmonary disease) Status: Chronic Procedures: CT OF THE HEAD WITHOUT CONTRAST CLINICAL HISTORY: Confusion. Multiple falls. COMPARISON STUDY: Head CT April 20, 2016. CT DOSE: 1146.30 mGy.cm TECHNIQUE: Helical axial images of the head were obtained without IV contrast. Automated exposure control was utilized for the study. FINDINGS: No acute intracranial hemorrhage, midline shift or mass effect is present. Ventricular system is normal. A few cisterns are patent. There are no extra-axial collections. Rodriguez-white differentiation is maintained. There are no findings to suggest acute dural sinus thrombosis or acute territorial infarct. Multiple small parafalcine lipomas are noted. There is no calvarial fracture. IMPRESSION: 1. No acute intracranial findings. 2. No calvarial fracture. CT OF THE CERVICAL SPINE WITHOUT CONTRAST CLINICAL HISTORY: Falls. COMPARISON STUDY: Cervical spine CT September 04, 2015. TECHNIQUE: Helical axial images of the cervical spine were obtained without IV contrast. Sagittal and coronal reconstructions were viewed. FINDINGS: Alignment of the cervical spine is anatomic. There is no acute cervical spine fracture. Degenerative changes at the C1-C2 articulation are noted. There is mild to moderate multilevel degenerative disc disease and facet arthrosis. There is no prevertebral edema. A small left pleural effusion is partially imaged. There is emphysema within visualized portions of the lungs. No pneumothorax is identified within the lung apices. IMPRESSION: 1. No acute cervical spine fracture or subluxation. 2. Partially visualized left pleural effusion. CHEST ONE VIEW PORTABLE CLINICAL HISTORY: Cough. Fever. COMPARISON STUDY: Chest CT September 04, 2015 and chest radiograph April 14, 2016. FINDINGS: There is a small left pleural effusion. There is mild left basilar opacity. Exam is mildly compromised by motion artifact. There is no evidence of pulmonary edema. No lobar consolidation. There is no pneumothorax. There is an age indeterminate but likely old right lower rib fracture. IMPRESSION: 1. No pneumothorax. 2. Small left pleural effusion with left basilar opacity which favors atelectasis. However, radiographic follow up is recommended to ensure resolution. 3. Age-indeterminate, but likely old, right lower rib fracture. (Amy Williamson ., PADavidC) Medication Reconciliation Continued Medications: Acetaminophen (Tylenol) 325 Mg Tab 325-650 MG PO Q4H PRN for Pain, TAB Albuterol Hfa (Ventolin Hfa) 200 Puffs/41449 Mcg Aers 1-2 PUFFS INH Q4 PRN for Shortness of Breath Atorvastatin (Lipitor) 40 Mg Tab 40 MG PO QAM, TAB Folic Acid (Folic Acid) 400 Mcg Tab 400 MCG PO QAM Indomethacin (Indocin) 50 Mg Cap 50 MG PO DAILY PRN for FLARE UP, CAP WITH FOOD UNTIL PAIN RESOLVES Lisinopril (Zestril) 10 Mg Tab 10 MG PO QAM, TAB Metoprolol Succ (Toprol Xl) (Toprol-Xl) 25 Mg Tabcr 25 MG PO QAM Oxcarbazepine (Trileptal) 300 Mg Tab 1 TAB PO BID Pregabalin (Lyrica) 75 Mg Cap 75 MG PO BID, CAP Venlafaxine Hcl (Venlafaxine Extended Rel) 75 Mg Cap 150 MG PO QAM, CAP Vitamin B Cmplx/Vitc/Folic Ac (Nephrocaps) Cap 1 CAP PO QAM for 30 Days, #30 CAP 11 Refills Discharge Exam Patient reports feeling well. He states that his tremors have resolved. He denies any weakness or fatigue. The patient is very eager for discharge and wants to return home. The patient denies fevers, chills, sweats, chest pain, palpitations, claudication, cough, wheezing, shortness of breath, nausea, vomiting, abdominal pain, dysuria, hematuria, urinary retention, paralysis, weakness, numbness and tingling. Review of Systems: Constitutional: No fever, No chills, No sweats Eyes: No worsening of vision, No eye pain, No diplopia ENT: No hearing loss, No sore throat, No trouble swallowing Respiratory: No cough, No wheezing, No shortness of breath Cardiovascular: No chest pain, No claudication, No palpitations Abdomen: No pain, No nausea, No vomiting Musculoskeletal: No joint pain, No muscle pain, No calf pain Genitourinary - Male: No hematuria, No dysuria, No urinary retention Neurologic: No paralysis, No weakness, No numbness/tingling Integumentary: No rash, No itch, No color change Physical Exam: General Appearance: WD/WN, no apparent distress, + obese Eyes: normal inspection, PERRL, EOMI ENT: normal ENT inspection, hearing grossly normal, pharynx normal Neck: supple, no JVD, trachea midline Respiratory/Chest: normal breath sounds, no respiratory distress, + wheezing (throughout) Cardiovascular: no gallop, no murmur, + tachycardia (regular rhythm) Abdomen / GI: normal bowel sounds, non tender, soft Extremities: normal inspection, no calf tenderness, no pedal edema Neurologic/Psychiatric: alert, normal mood/affect, oriented x 3 Skin: normal color, warm/dry, no rash (Amy Williamson, RAFAEL) Hospital Course 65-year-old male with a past medical history of chronic alcohol abuse, previous hyponatremia, HTN, HLD, COPD, alcohol related peripheral neuropathy, and gout presented to the ER with complaints of worsening mental status and tremors. Altered mental status, tremors--could be secondary to alcohol vs hyponatremia vs new baseline -Admitted to telemetry. No acute events overnight. Pt in sinus rhythm/sinus tachycardia with HR between 70s-110s -Continue alcohol withdrawal protocol. No more tremors, denies anxiety, pt is alert and oriented x 3 -Banana bag x 1 at 125 cc/hr -Continue folic acid and B vitamin supplements -Blood cultures no growth to date x 2 -UA negative -B12, folate and TSH WNL -Pt mental status appears to be back to baseline, a&o x 3, answers questions appropriately Hyponatremia--improving -Sodium 121 on admission, received 1 L bolus of normal saline -Sodium improved to 127 on 10/12 -NSS at 125 cc/hr -Sodium remains stable at 128, pt asymptomatic -Urine and serum osmolality both low HTN--stable -Continue lisinopril 10, Toprol 25 mg PO qd HLD -Continue atorvastatin 40 mg PO qd Tobacco dependence, COPD -Nicotine patch -Nebs prn SOB/wheezing nebulizers PRN for dyspnea, nicotine patch Alcohol related peripheral neuropathy -Continue Lyrica 75 mg PO BID, Effexor 150 mg PO qd and Trileptal 300 mg PO BID DVT prophylaxis -SCDs Code Status -Level I, FULL RESUSCITATION STATUS Total Time Spent: Greater than 30 minutes This includes examination of the patient, discharge planning, medication reconciliation, and communication with other providers. (Amy Williamson ., PA-C) I agree with PA assessment and plan and have seen and examined pt myself Resting comfortably in bed Labs and vitals reviewed Na improved No signs of withdrawal Alert and oriented x 3 OK to discharge home, no antibx needed as no PNA evident (Reji Lomax D.ORuth Ann) Discharge Instructions Please refer to the electronic Patient Visit Report (Discharge Instructions) for additional information. (Amy Williamson ., PA-C) Additional Copies To Jakob Cage M.D.
[2016-10-13] MEDS ORDERED: NICO21DI4 TD (14:36)
[2016-10-13] MEDS ORDERED: LEVOFLOXACIN 500 MG TAB PO SCH (20:00)
[2016-10-16 12:10] LABS: LEGIONELLA ANTIGEN NOT DETECTED (NOT DETECTED)
== END 2016-10-13 14:43 | disposition home or self-care (01) | DRG 641 ==
LOC: EDBD 17:23 → C.EDC 17:25 → C.2T 10-12 00:46 → ENRESERV 10-12 00:58
PROVIDERS: ADMIT Family Medicine; ATTEND Hospitalist
DX: E87.1 Hypo-osmolality and hyponatremia (principal); J98.11 Atelectasis; R25.1 Tremor, unspecified; F10.10 Alcohol abuse, uncomplicated; J44.9 Chronic obstructive pulmonary disease, unspecified; I10 Essential (primary) hypertension; G62.1 Alcoholic polyneuropathy; Z82.49 Family history of ischemic heart disease and other diseases of the circulatory system; E78.5 Hyperlipidemia, unspecified; F41.8 Other specified anxiety disorders; M1A.9XX0 Chronic gout, unspecified, without tophus (tophi)

== ENCOUNTER → 2016-11-08 | Outpatient (CLI) | payer BC ==
[~2016-11-08] MED LIST changes: +B-CO1CAP17 PO; -B-COCAP2 PO; -CIPR-255 PO; -FLUT0.15 NAE; -FLUT45AE IN; -FLV1 PO; +FLV400 PO; -LBR25 PO; -LVNIS40 SQ; +NICO21DI35 PO; +NICO21DI4 TD; -OXYC-57 PO; -PANT40TA PO; +PRED20TA PO; +SDMC1 PO; -THIA100T11 PO; -TPRSR/50 PO
[2016-11-08 18:03] LABS: ALT/SGPT 23 U/L (12-78); AST/SGOT 20 U/L (15-37); BLOOD UREA NITROGEN 5 mg/dl (7-18); CALCIUM 9.2 mg/dl (8.5-10.1); CARBON DIOXIDE 29 mmol/L (21-32); CHLORIDE 88 mmol/L (98-107); CHOLESTEROL 118 mg/dl (0-200); CREATININE 0.78 mg/dl (0.60-1.40); GLUCOSE 91 mg/dl (70-99); POTASSIUM 4.4 mmol/L (3.5-5.1); SODIUM 124 mmol/L (136-145)
[2016-11-08 18:14] LABS: ALB/GLOB RATIO 0.8 (0.9-2); ALKALINE PHOSPHATASE 177 U/L (45-117); CHOLESTEROL/HDL RATIO 1.8; HDL CHOLESTEROL 67 mg/dl; LDL CHOLESTEROL CALCULATED 38 mg/dl; THYROID STIMULATING HORMONE 0.992 uIu/ml (0.300-4.500); TRIGLYCERIDES 67 mg/dl (0-150); VERY LOW DENSITY LIPOPROT CALC 13 mg/dl
== END | disposition home or self-care (01) ==
LOC: C.LABPVFM 11:56
PROVIDERS: ATTEND Neuromusculoskeletal Medicine & OMM
DX: Z00.00 Encounter for general adult medical examination without abnormal findings (principal); E87.1 Hypo-osmolality and hyponatremia; G25.0 Essential tremor

== ENCOUNTER 2016-11-14 14:28 | Inpatient (IN) | payer BC ==
[~2016-11-14] VITALS: Ht 172.7 cm; Wt 83.7 kg
[~2016-11-14 14:28] MED LIST changes: -ACET-1311 PO; -B-CO1CAP17 PO; -FLV400 PO; -NICO21DI35 PO; -PRED20TA PO; -SDMC1 PO; -VENL75CA73 PO
[2016-11-14] MEDS ORDERED: SODIUM CHLORIDE 0.9% 1000ML 1,000 ML IV STA (14:55)
[2016-11-14] MEDS ORDERED: ALBUT/IPRATROP 3MG/0.5MG NEB 3 ML VIAL INH STA (14:59)
--- NOTE | 2016-11-14 15:18 | DIAGNOSTIC IMAGING REPORT ---
CHEST ONE VIEW PORTABLE CLINICAL HISTORY: weakness COMPARISON STUDY: 10/11/2016 FINDINGS: The cardiac and mediastinal contours remain stable. Underlying emphysema is suspected. There is a stable small left pleural effusion. Left basilar opacities, likely reflect areas of scarring. There is no acute lobar consolidation. There is no failure.[ IMPRESSION: Persistent small left pleural effusion with associated left basilar opacities, likely representing atelectasis/scar. No evidence of failure. Electronically signed by: Chuck Cartwright M.D. 11/14/2016 3:16 PM Dictated Date/Time: 11/14/2016 3:15 PM
[2016-11-14 15:40] LABS: URINE APPEARANCE CLEAR (CLEAR); URINE BILIRUBIN NEG (NEG); URINE COLOR DK YELLOW; URINE NITRITE NEG (NEG); URINE SPECIFIC GRAVITY 1.013 (1.000-1.030); UROBILINOGEN NEG (NEG)
[2016-11-14 15:43] LABS: MANUAL MICROSCOPIC REQUIRED? NO; REVIEW REQ? NO
[2016-11-14 15:55] LABS: INR 0.9 (0.9-1.1); PARTIAL THROMBOPLASTIN RATIO 1.2; PROTHROMBIN TIME (PATIENT) 10.1 SECONDS (9.0-12.0)
[2016-11-14] MEDS ORDERED: NICO21DI35 PO (15:55)
[2016-11-14 16:16] LABS: ALKALINE PHOSPHATASE 159 U/L (45-117); ALT/SGPT 24 U/L (12-78); AST/SGOT 21 U/L (15-37); BLOOD UREA NITROGEN 6 mg/dl (7-18); BUN/CREATININE RATIO 9.5 (10-20); CALCIUM 8.6 mg/dl (8.5-10.1); CARBON DIOXIDE 29 mmol/L (21-32); CHLORIDE 82 mmol/L (98-107); CKMB/CK RATIO 3.8 (0-3.0); CREATININE 0.59 mg/dl (0.60-1.40); GLUCOSE 80 mg/dl (70-99); MAGNESIUM 1.9 mg/dl (1.8-2.4); POTASSIUM 4.5 mmol/L (3.5-5.1); THYROID STIMULATING HORMONE 0.906 uIu/ml (0.300-4.500)
--- NOTE | 2016-11-14 16:16 | DIAGNOSTIC IMAGING REPORT ---
CT HEAD WITHOUT CONTRAST (CT) CLINICAL HISTORY: Severe headache COMPARISON STUDY: 10/11/2016 TECHNIQUE: Axial CT of the brain is performed from the vertex to the skull base. IV contrast was not administered for this examination. A dose lowering technique was utilized adhering to the principles of ALARA. CT DOSE: 614.27 mGy.cm FINDINGS: Small midline parafalcine lipomas are visualized. No intra-axial masses are evident.. There is no CT evidence of acute cortical infarction. There is no evidence of midline shift. There is no acute hemorrhage. No calvarial fractures are visualized. There are minimal white matter hypodensities likely on a small vessel basis. There is no evidence of pathologic ventricular dilatation. There is no evidence of acute sinusitis IMPRESSION: No acute intracranial findings Electronically signed by: Chuck Cartwright M.D. 11/14/2016 4:15 PM Dictated Date/Time: 11/14/2016 4:14 PM
[2016-11-14 16:24] LABS: BASO % 0.2 %; BASO ABS # 0.02 K/uL (0-0.2); COMPLETE YES; EOS % 1.4 %; HEMATOCRIT 36.9 % (42-52); IG% 0.4 %; LYMPH % 10.5 %; LYMPH ABS # 1.04 K/uL (1.2-3.4); MEAN CELL VOLUME 86.8 fL (80-100); MEAN CORPUSCULAR HEMOGLOBIN 30.4 pg (25-34); MEAN PLATELET VOLUME 8.3 fL (7.4-10.4); MONO % 6.3 %; NEUT % 81.2 %; PLATELET COUNT 282 K/uL (130-400); RED BLOOD COUNT 4.25 M/uL (4.7-6.1)
[2016-11-14 17:13] LABS: SODIUM 118 mmol/L (136-145)
[2016-11-14] MEDS ORDERED: ACET-1311 PO (17:30)
[2016-11-14] MEDS ORDERED: VENL75CA73 PO (17:30)
[2016-11-14] MEDS ORDERED: B-CO1CAP17 PO (18:06)
[2016-11-14] MEDS ORDERED: FLV400 PO (18:06)
--- NOTE | 2016-11-14 18:25 | EMERGENCY ROOM VISIT NOTE ---
History Report prepared by Hilary: Liberty Joy Under the Supervision of: Dr. Salas Allen D.O. First contact with patient: 14:49 Chief Complaint: ABNORMAL LABS Stated Complaint: SODIUM VERY LOW - REFERRED BY DOCTOR History of Present Illness The patient is a 65 year old male who presents to the Emergency Room with complaints of abnormal lab results. He states Dr. Dang at [facility] called him and referred him to the ED for low sodium levels. The patient complains of pain in his bilateral thighs and a headache. He admits to some difficulty breathing but states this is chronic as he has a history of COPD. He has been eating and drinking normally. The patient admits to some increased swelling in his bilateral feet, but states this is also chronic. He denies taking any new daily medications. He does not take diuretics. 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 A total of 10 systems reviewed and were otherwise negative. Past Medical & Surgical Medical Problems: (1) ZAK (acute kidney injury) (2) Alcohol abuse (3) Alcoholic Hyponatremia (4) COPD (chronic obstructive pulmonary disease) (5) Femur fracture, right (6) Hemorrhagic shock (7) History of hypertension (8) Hypertension (9) Hyponatremia with decreased serum osmolality (10) Hypotension (11) Metabolic encephalopathy (12) Multiple fractures of ribs of left side (13) Neuropathy (14) Tachycardia (15) Tremor Family History Heart disease Social History Smoking Status: Current Every Day Smoker Alcohol Use: none Drug Use: none Marital Status: Housing Status: lives with family Occupation Status: unemployed Current/Historical Medications Scheduled Atorvastatin (Lipitor), 40 MG PO QAM Folic Acid (Folic Acid), 400 MCG PO QAM Lisinopril (Zestril), 10 MG PO QAM Metoprolol Succ (Toprol Xl) (Toprol-Xl), 25 MG PO QAM Nicotine (Nicoderm Cq 21MG Patch), 1 PATCH PO UD Oxcarbazepine (Trileptal), 1 TAB PO BID Pregabalin (Lyrica), 75 MG PO BID Venlafaxine Hcl (Venlafaxine Extended Rel), 150 MG PO QAM Vitamin B Cmplx/Vitc/Folic Ac (Nephrocaps), 1 CAP PO QAM Scheduled PRN Acetaminophen (Tylenol), 325-650 MG PO Q4H PRN for Pain Albuterol Hfa (Ventolin Hfa), 1-2 PUFFS INH Q4 PRN for Shortness of Breath Indomethacin (Indocin), 50 MG PO DAILY PRN for FLARE UP Allergies Coded Allergies: No Known Allergies (Unverified , 10/11/16) Physical Exam Vital Signs Date Time Temp Pulse Resp B/P (MAP) Pulse Ox O2 Delivery O2 Flow Rate FiO2 11/14/16 16:48 86 11/14/16 16:45 80 16 143/96 96 11/14/16 14:36 36.7 90 18 128/84 98 Room Air Physical Exam GENERAL: Patient is awake, alert in no acute distress, patient is resting comfortably and showing no signs of anxiety EYES: The conjunctivae are clear. The pupils are round and reactive. EARS, NOSE, MOUTH AND THROAT: The nose is without any evidence of any deformity. Mucous membranes are moist tongue is midline NECK: The neck is nontender and supple. RESPIRATORY: Normal respiratory effort is noted there is no evidence of wheezing rhonchi or rales CARDIOVASCULAR: Regular rate and rhythm noted there no murmurs rubs or gallops normal S1 normal S2 GASTROINTESTINAL: The abdomen is soft. Bowel sounds are present in all quadrants. Abdomen is nontender MUSCULOSKELETAL/EXTREMITIES: There is no evidence of gross deformity full range of motion is noted in the hips and shoulders SKIN: There is no obvious evidence of any rash. There are no petechiae, pallor or cyanosis noted. NEUROLOGIC: Patellar tendon reflexes are 2+ bilaterally. Patient is awake alert and oriented x3 Medical Decision & Procedures ER Provider Diagnostic Interpretation: Radiology results as stated below per my review and radiologist interpretation: CT HEAD WITHOUT CONTRAST (CT) CLINICAL HISTORY: Severe headache COMPARISON STUDY: 10/11/2016 TECHNIQUE: Axial CT of the brain is performed from the vertex to the skull base. IV contrast was not administered for this examination. A dose lowering technique was utilized adhering to the principles of ALARA. CT DOSE: 614.27 mGy.cm FINDINGS: Small midline parafalcine lipomas are visualized. No intra-axial masses are evident.. There is no CT evidence of acute cortical infarction. There is no evidence of midline shift. There is no acute hemorrhage. No calvarial fractures are visualized. There are minimal white matter hypodensities likely on a small vessel basis. There is no evidence of pathologic ventricular dilatation. There is no evidence of acute sinusitis IMPRESSION: No acute intracranial findings Electronically signed by: Chuck Cartwright M.D. 11/14/2016 4:15 PM CHEST ONE VIEW PORTABLE CLINICAL HISTORY: weakness COMPARISON STUDY: 10/11/2016 FINDINGS: The cardiac and mediastinal contours remain stable. Underlying emphysema is suspected. There is a stable small left pleural effusion. Left basilar opacities, likely reflect areas of scarring. There is no acute lobar consolidation. There is no failure. IMPRESSION: Persistent small left pleural effusion with associated left basilar opacities, likely representing atelectasis/scar. No evidence of failure. Electronically signed by: Chuck Cartwright M.D. 11/14/2016 3:16 PM Laboratory Results 11/14/16 15:25 Red Blood Count 4.25, Mean Corpuscular Volume 86.8, Mean Corpuscular Hemoglobin 30.4, Mean Corpuscular Hemoglobin Concent 35.0, Mean Platelet Volume 8.3, Neutrophils (%) (Auto) 81.2, Lymphocytes (%) (Auto) 10.5, Monocytes (%) (Auto) 6.3, Eosinophils (%) (Auto) 1.4, Basophils (%) (Auto) 0.2, Neutrophils # (Auto) 8.04, Lymphocytes # (Auto) 1.04, Monocytes # (Auto) 0.62, Eosinophils # (Auto) 0.14, Basophils # (Auto) 0.02 11/14/16 15:25 Test 11/14/16 14:52 11/14/16 15:25 Urine Color DK YELLOW Urine Appearance CLEAR (CLEAR) Urine pH 6.0 (4.5-7.5) Urine Specific [place] 1.013 (1.000-1.030) Urine Protein NEG (NEG) Urine Glucose (UA) NEG (NEG) Urine Ketones NEG (NEG) Urine Occult Blood NEG (NEG) Urine Nitrite NEG (NEG) Urine Bilirubin NEG (NEG) Urine Urobilinogen NEG (NEG) Urine Leukocyte Esterase NEG (NEG) Urine Osmolality 166 mOms/kg (500-800) Urine Random Sodium 16 mEq/L White Blood Count 9.90 K/uL (4.8-10.8) Red Blood Count 4.25 M/uL (4.7-6.1) Hemoglobin 12.9 g/dL (14.0-18.0) Hematocrit 36.9 % (42-52) Mean Corpuscular Volume 86.8 fL (80-100) Mean Corpuscular Hemoglobin 30.4 pg (25-34) Mean Corpuscular Hemoglobin Concent 35.0 g/dl (32-36) Platelet Count 282 K/uL (130-400) Mean Platelet Volume 8.3 fL (7.4-10.4) Neutrophils (%) (Auto) 81.2 % Lymphocytes (%) (Auto) 10.5 % Monocytes (%) (Auto) 6.3 % Eosinophils (%) (Auto) 1.4 % Basophils (%) (Auto) 0.2 % Neutrophils # (Auto) 8.04 K/uL (1.4-6.5) Lymphocytes # (Auto) 1.04 K/uL (1.2-3.4) Monocytes # (Auto) 0.62 K/uL (0.11-0.59) Eosinophils # (Auto) 0.14 K/uL (0-0.5) Basophils # (Auto) 0.02 K/uL (0-0.2) RDW Standard Deviation 43.6 fL (36.4-46.3) RDW Coefficient of Variation 13.8 % (11.5-14.5) Immature Granulocyte % (Auto) 0.4 % Immature Granulocyte # (Auto) 0.04 K/uL (0.00-0.02) Prothrombin Time 10.1 SECONDS (9.0-12.0) Prothromb Time International Ratio 0.9 (0.9-1.1) Activated Partial Thromboplast Time 30.9 SECONDS (21.0-31.0) Partial Thromboplastin Ratio 1.2 Anion Gap 6.0 mmol/L (3-11) Est Creatinine Clear Calc Drug Dose 123.9 ml/min Estimated GFR () 124.9 Estimated GFR (Non- 107.7 BUN/Creatinine Ratio 9.5 (10-20) Osmolality 252 mOsm/kg (280-300) Calcium Level 8.6 mg/dl (8.5-10.1) Magnesium Level 1.9 mg/dl (1.8-2.4) Total Bilirubin 0.4 mg/dl (0.2-1) Direct Bilirubin 0.2 mg/dl (0-0.2) Aspartate Amino Transf (AST/SGOT) 21 U/L (15-37) Alanine Aminotransferase (ALT/SGPT) 24 U/L (12-78) Alkaline Phosphatase 159 U/L (45-117) Total Creatine Kinase 73 U/L (39-308) Creatine Kinase MB 2.8 ng/ml (0.5-3.6) Creatine Kinase MB Ratio 3.8 (0-3.0) Troponin I < 0.015 ng/ml (0-0.045) Total Protein 7.4 gm/dl (6.4-8.2) Albumin 3.1 gm/dl (3.4-5.0) Lipase 84 U/L (73-393) Thyroid Stimulating Hormone (TSH) 0.906 uIu/ml (0.300-4.500) Free Thyroxine 0.81 ng/dl (0.80-1.60) Laboratory results per my review. Medications Administered Medications (Trade) Dose Ordered Sig/Feroz Route Start Time Stop Time Status Last Admin Dose Admin Sodium Chloride 1,000 ml @ 999 mls/hr Q1H1M STAT IV 11/14/16 14:55 11/14/16 15:55 DC 11/14/16 15:44 999 MLS/HR Albuterol/ Ipratropium (Duoneb) 3 ml NOW STAT INH 11/14/16 14:59 11/14/16 15:00 DC 11/14/16 15:43 3 ML ECG Indication: weakness Rate (beats per minute): 81 Rhythm: normal sinus Findings: no ectopy, other (No acute ST segment abnormalities) Change: no significant change (No change from October 11, 2016) ED Course 1454: The patient was evaluated in room C1. A complete history and physical examination were performed. 1455: NSS 1000 ml @ 999 mls/hr IV. 1459: DuoNeb 3 ml INH. 1700: I reevaluated the patient. He is resting comfortably. I discussed my recommendation he remain in the hospital for further evaluation and management and he verbalized complete understanding and agreement. 1725: I discussed the patients case with Dr. Kern, [facility] Hospitalist. The patient will be further evaluated. 1744: I reevaluated the patient. I asked him about his alcohol use and he admits he drinks "4 to 5 alcoholic beverages" per day. I will update the hospital medicine team about this. 1744: I have spoken to Dr. Kern [facility] Hospitalist and updated him on the patients alcohol use. Medical Decision Prior records/ancillary studies reviewed and summarized above. Nursing notes reviewed. Differential diagnosis: Etiologies such as metabolic, infection, hypo/hyperglycemia, electrolyte abnormalities, cardiac sources, intracerebral event, toxicologic, neurologic, as well as others were entertained. The patient is a 65-year-old male who presented to the emergency department for an evaluation after laboratory results revealed a low sodium. The patient has had problems with low sodium over the last few months. It sounds though they've had difficulty managing this as an outpatient. He had laboratory testing done this week and was told to come to the emergency department but he presented today. The patient was found have significant lower sodium than previous. I discussed the patient's laboratory and radiographic studies with him. Because of the level of sodium I discussed his case with the on-call [facility] hospitalist. They've agreed to evaluate the patient in the emergency department for further management and disposition. Medication Reconcilliation Current Medication List: was personally reviewed by me Blood Pressure Screening Patient's blood pressure: Elevated blood pressure Blood pressure disposition: Referred to PCP Consults Time Called: 1719 Consulting Physician: Dr. Kern [facility] Hospitalist Returned Call: [phone] I discussed the patients case with Dr. Kern [facility] Hospitalist. The patient will be further evaluated. Impression Primary Impression: Hyponatremia Scribe Attestation The scribe's documentation has been prepared under my direction and personally reviewed by me in its entirety. I confirm that the note above accurately reflects all work, treatment, procedures, and medical decision making performed by me. Departure Information Dispostion Being Evaluated By Hospitalist Referrals No Doctor, Assigned (PCP) Patient Instructions My [facility]
--- NOTE | 2016-11-14 18:35 | History and Physical ---
History & Physical Date & Time of Service: Nov 14, 2016 at 18:23 Chief Complaint: Sodium Very Low - Referred By Doctor Primary Care Physician: No Doctor, Assigned History of Present Illness This is an 65 yo M with PMHx of COPD, current tobacco use of 1 ppd since age 14 , HTN, HLD, chronic alcohol use of 4-6 beers ([place] light) and peripheral neuropathy and edema. The patient presents to the ED with abnormal lab results of low sodium, He=698. He honestly does not want to be admitted to the hospital , but is agreeable after a muriel discussion where he was informed of low sodium and the potential for cerebral edema or even by an ER provider. The patients only complaint currently is that when he got up this morning he had bilateral thigh pain and weakness. He denies any changes in mentation, confusion , difficulty with walking or any other acute complaints. He reports having severe peripheral neuropathy and this has made him more likely to fall. He denies falls where he sustained trauma recently, but does have several bruises over his arms. He uses a cane or a motorized scooter to help him get around. He lives in a 4 floored home with his . Past Medical/Surgical History Medical Problems: (1) Alcohol abuse Status: Chronic (2) Alcoholic Hyponatremia Status: Chronic (3) COPD (chronic obstructive pulmonary disease) Status: Chronic (4) Hypertension Status: Chronic (5) Metabolic encephalopathy Status: Chronic (6) Neuropathy Status: Chronic Family History Heart disease Social History Smoking Status: Current Every Day Smoker Smokeless Tobacco Use: No Drug Use: none Marital Status: Housing status: lives with family Occupational Status: employed Multi-Drug Resistant Organisms History of MDRO: No Allergies Coded Allergies: No Known Allergies (Unverified , 10/11/16) Home Medications Scheduled Atorvastatin (Lipitor), 40 MG PO QAM Folic Acid (Folic Acid), 400 MCG PO QAM Lisinopril (Zestril), 10 MG PO QAM Metoprolol Succ (Toprol Xl) (Toprol-Xl), 25 MG PO QAM Nicotine (Nicoderm Cq 21MG Patch), 1 PATCH PO UD Oxcarbazepine (Trileptal), 1 TAB PO BID Pregabalin (Lyrica), 75 MG PO BID Venlafaxine Hcl (Venlafaxine Extended Rel), 150 MG PO QAM Vitamin B Cmplx/Vitc/Folic Ac (Nephrocaps), 1 CAP PO QAM Scheduled PRN Acetaminophen (Tylenol), 325-650 MG PO Q4H PRN for Pain Albuterol Hfa (Ventolin Hfa), 1-2 PUFFS INH Q4 PRN for Shortness of Breath Indomethacin (Indocin), 50 MG PO DAILY PRN for FLARE UP Review of Systems Constitutional: No fever, No chills, No sweats Eyes: No worsening of vision, No diplopia ENT: No sore throat, No trouble swallowing Respiratory: + wheezing, + shortness of breath, + dyspnea on exertion, No cough , No sputum, No dyspnea at rest Cardiovascular: No chest pain, No edema Abdomen: No pain, No nausea, No vomiting, No diarrhea, No constipation Musculoskeletal: + swelling, No joint pain, No calf pain Neurologic: + problem reported (peripheral neuropathy), No memory loss, No weakness, No numbness/tingling Psychiatric: No depression symptoms, No anxiety Endocrine: No fatigue Integumentary: No rash, No itch Physical Exam Vital Signs Date Time Temp Pulse Resp B/P (MAP) Pulse Ox O2 Delivery O2 Flow Rate FiO2 11/14/16 16:48 86 11/14/16 16:45 80 16 143/96 96 11/14/16 14:36 36.7 90 18 128/84 98 Room Air General Appearance: WD/WN, no apparent distress, + pertinent finding (appears much older than stated age) Head: normocephalic, atraumatic Eyes: PERRL, EOMI ENT: hearing grossly normal, pharynx normal, + pertinent finding (poor dentition) Neck: supple, no JVD Respiratory/Chest: chest non-tender, no respiratory distress, no accessory muscle use, + pertinent finding (+ expiratory wheeze throughout, on room air, O2 sats are 95%) Cardiovascular: regular rate, rhythm, no murmur, normal peripheral pulses Abdomen/GI: normal bowel sounds, non tender, soft Back: normal inspection Extremities/Musculoskelatal: normal inspection, no calf tenderness, + pedal edema (2+ nonpitting edema bilaterally), + pertinent finding (multiple areas of ecchymosis over bilateral forearms.) Neurologic/Psych: alert, normal mood/affect, oriented x 3 Skin: normal color, warm/dry Diagnostics Laboratory Results Results Past 24 Hours Test 11/14/16 14:52 11/14/16 15:25 Range/Units Urine Color DK YELLOW Urine Appearance CLEAR CLEAR Urine pH 6.0 4.5-7.5 Urine Specific [place] 1.013 1.000-1.030 Urine Protein NEG NEG Urine Glucose (UA) NEG NEG Urine Ketones NEG NEG Urine Occult Blood NEG NEG Urine Nitrite NEG NEG Urine Bilirubin NEG NEG Urine Urobilinogen NEG NEG Urine Leukocyte Esterase NEG NEG Urine Osmolality 166 500-800 mOms/kg Urine Random Sodium 16 mEq/L White Blood Count 9.90 4.8-10.8 K/uL Red Blood Count 4.25 4.7-6.1 M/uL Hemoglobin 12.9 14.0-18.0 g/dL Hematocrit 36.9 42-52 % Mean Corpuscular Volume 86.8 80-100 fL Mean Corpuscular Hemoglobin 30.4 25-34 pg Mean Corpuscular Hemoglobin Concent 35.0 32-36 g/dl Platelet Count 282 130-400 K/uL Mean Platelet Volume 8.3 7.4-10.4 fL Neutrophils (%) (Auto) 81.2 % Lymphocytes (%) (Auto) 10.5 % Monocytes (%) (Auto) 6.3 % Eosinophils (%) (Auto) 1.4 % Basophils (%) (Auto) 0.2 % Neutrophils # (Auto) 8.04 1.4-6.5 K/uL Lymphocytes # (Auto) 1.04 1.2-3.4 K/uL Monocytes # (Auto) 0.62 0.11-0.59 K/uL Eosinophils # (Auto) 0.14 0-0.5 K/uL Basophils # (Auto) 0.02 0-0.2 K/uL RDW Standard Deviation 43.6 36.4-46.3 fL RDW Coefficient of Variation 13.8 11.5-14.5 % Immature Granulocyte % (Auto) 0.4 % Immature Granulocyte # (Auto) 0.04 0.00-0.02 K/uL Prothrombin Time 10.1 9.0-12.0 SECONDS Prothromb Time International Ratio 0.9 0.9-1.1 Activated Partial Thromboplast Time 30.9 21.0-31.0 SECONDS Partial Thromboplastin Ratio 1.2 Sodium Level 118 136-145 mmol/L Potassium Level 4.5 3.5-5.1 mmol/L Chloride Level 82 98-107 mmol/L Carbon Dioxide Level 29 21-32 mmol/L Anion Gap 6.0 3-11 mmol/L Blood Urea Nitrogen 6 7-18 mg/dl Creatinine 0.59 0.60-1.40 mg/dl Est Creatinine Clear Calc Drug Dose 123.9 ml/min Estimated GFR () 124.9 Estimated GFR (Non- 107.7 BUN/Creatinine Ratio 9.5 10-20 Random Glucose 80 70-99 mg/dl Osmolality 252 280-300 mOsm/kg Calcium Level 8.6 8.5-10.1 mg/dl Magnesium Level 1.9 1.8-2.4 mg/dl Total Bilirubin 0.4 0.2-1 mg/dl Direct Bilirubin 0.2 0-0.2 mg/dl Aspartate Amino Transf (AST/SGOT) 21 15-37 U/L Alanine Aminotransferase (ALT/SGPT) 24 12-78 U/L Alkaline Phosphatase 159 45-117 U/L Total Creatine Kinase 73 39-308 U/L Creatine Kinase MB 2.8 0.5-3.6 ng/ml Creatine Kinase MB Ratio 3.8 0-3.0 Troponin I < 0.015 0-0.045 ng/ml Total Protein 7.4 6.4-8.2 gm/dl Albumin 3.1 3.4-5.0 gm/dl Lipase 84 73-393 U/L Thyroid Stimulating Hormone (TSH) 0.906 0.300-4.500 uIu/ml Free Thyroxine 0.81 0.80-1.60 ng/dl Diagnostic Radiology CT HEAD WITHOUT CONTRAST (CT) CLINICAL HISTORY: Severe headache COMPARISON STUDY: 10/11/2016 TECHNIQUE: Axial CT of the brain is performed from the vertex to the skull base. IV contrast was not administered for this examination. A dose lowering technique was utilized adhering to the principles of ALARA. CT DOSE: 614.27 mGy.cm FINDINGS: Small midline parafalcine lipomas are visualized. No intra-axial masses are evident.. There is no CT evidence of acute cortical infarction. There is no evidence of midline shift. There is no acute hemorrhage. No calvarial fractures are visualized. There are minimal white matter hypodensities likely on a small vessel basis. There is no evidence of pathologic ventricular dilatation. There is no evidence of acute sinusitis IMPRESSION: No acute intracranial findings Electronically signed by: Chuck Cartwright M.D. 11/14/2016 4:15 PM Dictated Date/Time: 11/14/2016 4:14 PM The status of this report is Signed. CHEST ONE VIEW PORTABLE CLINICAL HISTORY: weakness COMPARISON STUDY: 10/11/2016 FINDINGS: The cardiac and mediastinal contours remain stable. Underlying emphysema is suspected. There is a stable small left pleural effusion. Left basilar opacities, likely reflect areas of scarring. There is no acute lobar consolidation. There is no failure.[ IMPRESSION: Persistent small left pleural effusion with associated left basilar opacities, likely representing atelectasis/scar. No evidence of failure. Electronically signed by: Chuck Cartwright M.D. 11/14/2016 3:16 PM Dictated Date/Time: 11/14/2016 3:15 PM The status of this report is Signed. EKG Vent. rate 81 BPM [place] interval 194 ms QRS duration 74 ms QT/QTc 356/413 ms P-R-T axes 88 23 59 Poor data quality, interpretation may be adversely affected Normal sinus rhythm normal EKG When compared with ECG of 11-OCT-2016 17:35, no change Confirmed by Fidel Walker ([id number]) on 11/14/2016 5:22:15 PM Impression Assessment and Plan This is an 65 yo M with PMHx of COPD, current tobacco use of 1 ppd since age 14 , HTN, HLD, chronic alcohol use of 4-6 beers ([place] light) and peripheral neuropathy and edema. The patient presents to the ED with abnormal lab results of low sodium, Au=015. Hyponatremia - Admit to telemetry for monitoring - Pt appears to have been admitted for hyponatremia in the past, and has a chronically low sodium around 124-126. He was last discharged with a sodium on 127. Urine and serum osmolality have also been low. S/p 1 L NSS in the ED. Will recheck serum sodium now to see if that has improved. - Will place him on maintenance fluids overnight at 100mL/hr - Follow am labs - CT of the head does not reveal any infarction or edema. There are small parafalcine lipomas noted. - PT/OT COPD Chronic Tobacco Use - Tobacco use hx of 1 ppd x 51 years. At his heaviest smoking hx he smoked 3 ppd. - CXR was obtained and shows a small left pleural effusion with L basilar opacities - Will order duonebs QID and Q2H prn - Pt does not wear O2 at baseline and appears to have adequate sats at 95% on RA. - Nicotine patch provided Alcohol Abuse - Typically drinks 4-6 [place] lights a day - Will order librium prn for withdrawal - Continue folic acid and MVI daily DVT ppx: Lovenox subq, teds, scds CODE STATUS: FULL CODE Disposition: From home, discharge when medically stable. Level of Care Telemetry Advanced Directives Existing Advance Directive: No Existing Living Will: No Existing Power of Rag Grader: No Existing Health Care Proxy: No Resuscitation Status FULL RESUSCITATION VTE Prophylaxis VTE Risk Assessment Done? Y/N: Yes Given or contraindicated: Enoxaparin (Lovenox)SQ, T.E.D. Stockings, SCD's Note Attending Admission Note & Attestation: Pt seen/examined, chart reviewed, care plan d/w TISHA Horton. I agree w/ the hurley components of her admission documentation. 65yo male with h/o COPD, tobacco dependence, and alcohol dependence who presented after his PCP called him at home and told him his serum sodium level from several days ago was low (124). It was rechecked in the ER and was 118. He was given 1 liter of NS prior to admission. Pt denied lethargy, seizure, etc Admits to ongoing alcohol dependence - at least 5-6 drinks/day. PMH, PSH, allergies, meds, sochx, famhx, ros- reviewed VSS gen - looks older than stated age, mildly disheveled, poor eye contact mouth - poor dentition, MMM neck - no JVD heart - RRR lungs - diffuse wheezes b/l, basilar rales abd - soft, NT, spleen palpable ext - 1+ edema b/l Na 118 urine Na <20 urine osm 166 serum osm 252 A/P: Largely asymptomatic hyponatremia. urine/serum studies not c/w SIADH but may represent beer potomania. check serum Na q6h. we may need to slow down or stop the NS hydration completely due to risk of CPM if correction is too fast. add thiamine 200 IV BID due to alcoholism. watch for DTs. needs to quit smoking/drinking if at all possible. Kannan Kern MD
[2016-11-14] MEDS ORDERED: SODIUM CHLORIDE 0.9% 1000ML 1,000 ML IV SCH (19:03)
[2016-11-14] MEDS ORDERED: ALBUTEROL HFA 8 GM INHALER INH PRN (19:15)
[2016-11-14] MEDS ORDERED: ONDANSETRON INJ 2 MG/ML 2 ML VIAL IV PRN (19:15)
[2016-11-14] MEDS ORDERED: CHLORDIAZEPOXIDE 25 MG CAP PO PRN (19:45)
[2016-11-14 19:51] VITALS: Ht 172.7 cm; Wt 83.7 kg
[2016-11-14] MEDS ORDERED: CEROVITE ADV FORMULA TAB PO ONE (20:28)
[2016-11-14 20:58] VITALS: BP 129/77; PULSE 86; TEMP 36.5; O2SAT 94
[2016-11-14 21:03] VITALS: O2SAT 96
[2016-11-14] MEDS: PREGABALIN 75 MG CAP PO SCH (21:11)
[2016-11-14] MEDS: OXCARBAZEPINE 150 MG TAB PO SCH (21:12)
[2016-11-14] MEDS: ALBUT/IPRATROP 3MG/0.5MG NEB 3 ML VIAL INH SCH (21:30)
[2016-11-14] MEDS: THIAMINE HCL INJ 200 MG in SODIUM CHLORIDE 0.9% 50ML 50 ML IV SCH (22:03)
[2016-11-14 23:10] VITALS: BP 116/72; PULSE 84; TEMP 36.8; O2SAT 93
[2016-11-15] VITALS (12 sets, daily range): BP systolic 110–131; BP diastolic 74–86; PULSE 70–96; TEMP 36.6–37.3; O2SAT 93–98
[2016-11-15 02:38] LABS: BUN/CREATININE RATIO 8.6 (10-20); CALCIUM 8.1 mg/dl (8.5-10.1); CREATININE 0.63 mg/dl (0.60-1.40); POTASSIUM 4.5 mmol/L (3.5-5.1)
[2016-11-15] MEDS: ALBUT/IPRATROP 3MG/0.5MG NEB 3 ML VIAL INH SCH ×4 (07:11→20:04)
[2016-11-15] MEDS: VENLAFAXINE HCL XR 75 MG CAPXR PO SCH (07:44)
[2016-11-15] MEDS: NEPHROCAPS PO SCH (07:45)
[2016-11-15] MEDS: ATORVASTATIN 40 MG TAB PO SCH (07:45)
[2016-11-15] MEDS: METOPROLOL SUCC 25MG EXT REL TAB PO SCH (07:45)
[2016-11-15] MEDS: OXCARBAZEPINE 150 MG TAB PO SCH ×2 (07:45→19:39)
[2016-11-15] MEDS: FoLIC ACID TAB 400 MCG TAB PO SCH (07:46)
[2016-11-15] MEDS: CEROVITE ADV FORMULA TAB PO SCH (07:46)
[2016-11-15] MEDS: NICOTINE 21 MG/24 HR TDSY TD SCH (07:48)
[2016-11-15] MEDS: ENOXAPARIN 40 MG/0.4 ML SYR SC SCH (07:48)
[2016-11-15] MEDS: PREGABALIN 75 MG CAP PO SCH ×2 (07:50→19:38)
[2016-11-15] MEDS: LISINOPRIL 10 MG TAB PO SCH (07:53)
[2016-11-15] MEDS ORDERED: FoLIC ACID TAB 400 MCG TAB PO SCH (09:00)
[2016-11-15] MEDS: THIAMINE HCL INJ 200 MG in SODIUM CHLORIDE 0.9% 50ML 50 ML IV SCH ×2 (10:29→21:16)
[2016-11-15] MEDS: ACETAMINOPHEN 325 MG TAB PO PRN ×2 (10:40→19:37)
[2016-11-15] MEDS ORDERED: NURSING VERBAL MED ORDER ONE ×2 (12:30→13:15)
[2016-11-15] MEDS ORDERED: LORAZEPAM 1 MG TAB PO PRN (13:30)
--- NOTE | 2016-11-15 19:35 | Progress Note ---
Subjective Date of Service: Nov 15, 2016. Subjective Pt evaluation today including: conversation w/ patient, physical exam, chart review, lab review, review of studies, conversation w/ career consultant, review of inpatient medication list Mild anxious, no complaining, still smoking Problem List Medical Problems: (1) Confusion Status: Acute (2) DVT (deep venous thrombosis) Status: Acute (3) Fall Status: Acute (4) Gout Status: Acute (5) Hypernatremia Status: Acute (6) Hyponatremia Status: Acute (7) Hyponatremia Status: Acute (8) Multiple rib fractures Status: Acute (9) PNA (pneumonia) Status: Acute (10) Syncope Status: Acute Review of Systems Constitutional: No fever, No chills, No sweats, No weight loss, No weakness, No fatigue, No problem reported Eyes: No worsening of vision, No eye pain, No redness, No discharge, No diplopia ENT: No hearing loss, No unusual epistaxis, No nasal symptoms, No sore throat, No tinnitus, No dental problems, No trouble swallowing Respiratory: No cough, No sputum, No wheezing, No shortness of breath, No dyspnea on exertion, No dyspnea at rest, No hemoptysis Cardiac: No chest pain, No orthopnea, No PND, No edema, No claudication, No palpitations Abdomen: No pain, No nausea, No vomiting, No diarrhea, No constipation Musculoskeletal: No joint pain, No muscle pain, No swelling, No calf pain Male : No dysuria, No urinary frequency, No incontinence, No nocturia more than once/night, No slowing stream, No hematuria Neurologic: No memory loss, No paralysis, No weakness, No numbness/tingling, No vertigo, No balance problems Psychiatric: No depression symptoms, No anhedonism, No anxiety, No insomnia, No substance abuse Heme: No abnormal bleeding/bruising, No clotting problems, No swollen lymph nodes, No night sweats Endo: No fatigue, No excessive thirst, No excessive urination Skin: No rash, No itch, No new/changing skin lesions, No color change, No bleeding Objective Vital Signs Date Time Temp Pulse Resp B/P (MAP) Pulse Ox O2 Delivery O2 Flow Rate FiO2 11/15/16 16:00 98 Room Air 11/15/16 15:25 36.6 92 22 118/79 (92) 96 Room Air 11/15/16 15:08 88 18 93 Room Air 11/15/16 12:00 96 Room Air 11/15/16 11:49 92 18 94 Room Air 11/15/16 11:24 37.3 88 20 126/83 (97) 96 Room Air 11/15/16 08:00 98 Room Air 11/15/16 07:13 82 18 97 Room Air 11/15/16 07:04 36.7 70 20 131/86 (101) 98 Room Air 11/15/16 04:13 36.6 79 16 113/74 (87) 94 Room Air 11/15/16 04:00 Room Air 11/15/16 00:00 Room Air 11/14/16 23:10 36.8 84 16 116/72 (87) 93 Room Air 11/14/16 21:03 96 Room Air 11/14/16 20:58 36.5 86 17 129/77 (94) 94 Room Air 11/14/16 20:31 36.7 85 18 113/75 96 11/14/16 19:51 Room Air Physical Exam General Appearance: WD/WN, no apparent distress, + thin, + pertinent finding Eyes: normal inspection, PERRL, EOMI, sclerae normal ENT: normal ENT inspection, hearing grossly normal, pharynx normal Neck: supple, no adenopathy, thyroid normal, no JVD, no carotid bruits, trachea midline Respiratory/Chest: chest non-tender, normal breath sounds, no respiratory distress, no accessory muscle use, + decreased breath sounds, + wheezing Cardiovascular: regular rate, rhythm, no edema, no gallop, no JVD, no murmur Abdomen: normal bowel sounds, non tender, soft, no organomegaly, no pulsatile mass Extremities: normal range of motion, non-tender, normal inspection, no pedal edema, no calf tenderness, normal capillary refill, pelvis stable Neurologic/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: 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, no motor/sensory deficits, alert, normal mood/affect, oriented x 3 Skin: normal color, warm/dry, no rash Lymphatic: no adenopathy Laboratory Results Last 24 Hours Test 11/14/16 20:26 11/15/16 01:56 Sodium Level 124 mmol/L 127 mmol/L Potassium Level 4.5 mmol/L Chloride Level 93 mmol/L Carbon Dioxide Level 27 mmol/L Anion Gap 7.0 mmol/L Blood Urea Nitrogen 5 mg/dl Creatinine 0.63 mg/dl Est Creatinine Clear Calc Drug Dose 116.1 ml/min Estimated GFR () 121.6 Estimated GFR (Non- 104.9 BUN/Creatinine Ratio 8.6 Random Glucose 76 mg/dl Calcium Level 8.1 mg/dl Assessment and Plan 65 yo M admitted on 11/14/2016 because of abnormal lab results of low sodium, Na =118. MHx of COPD, current tobacco use of 1 ppd since age 14, HTN, HLD, chronic alcohol use of 4-6 beers ([place] light) and peripheral neuropathy and edema. Hyponatremia, likely from potomania, improved today is 127 hx of admitted for hyponatremia in the past, and has a chronically low sodium around 124-126. He was last discharged with a sodium on 127. Admission on maintenance fluids overnight at 100mL/hr, it is discontinued Follow am labs CT of the head does not reveal any infarction or edema. There are small parafalcine lipomas noted. PT/OT COPD Chronic Tobacco Use -Tobacco use hx of 1 ppd x 51 years. At his heaviest smoking hx he smoked 3 ppd. -CXR was obtained and shows a small left pleural effusion with L basilar opacities Continue duonebs QID and Q2H prn Consult quit smoking my offer help Nicotine patch provided Alcohol Abuse Typically drinks 4-6 [place] lights a day order librium prn, and Ativan with CIWA protocol for withdrawal Continue folic acid and MVI daily DVT ppx: Lovenox subq, teds, scds CODE STATUS: FULL CODE Discussed with patient about care plan, discussed with nurse, answered all the questions Disposition: From home, discharge when medically stable. Continued [facility] stay due to: multiple IV medications needed Discharge planning: home
[2016-11-16] VITALS (14 sets, daily range): BP systolic 98–143; BP diastolic 62–86; PULSE 74–99; TEMP 36.4–36.9; O2SAT 90–97
[2016-11-16] MEDS: ACETAMINOPHEN 325 MG TAB PO PRN ×2 (00:54→07:17)
[2016-11-16] MEDS: ATORVASTATIN 40 MG TAB PO SCH (07:17)
[2016-11-16] MEDS: NEPHROCAPS PO SCH (07:18)
[2016-11-16] MEDS: VENLAFAXINE HCL XR 75 MG CAPXR PO SCH (07:18)
[2016-11-16] MEDS: METOPROLOL SUCC 25MG EXT REL TAB PO SCH (07:18)
[2016-11-16] MEDS: CEROVITE ADV FORMULA TAB PO SCH (07:18)
[2016-11-16] MEDS: ALBUT/IPRATROP 3MG/0.5MG NEB 3 ML VIAL INH SCH ×3 (07:19→18:57)
[2016-11-16] MEDS: OXCARBAZEPINE 150 MG TAB PO SCH ×2 (07:19→21:36)
[2016-11-16] MEDS: NICOTINE 21 MG/24 HR TDSY TD SCH (07:19)
[2016-11-16] MEDS: FoLIC ACID TAB 400 MCG TAB PO SCH (07:19)
[2016-11-16] MEDS: ENOXAPARIN 40 MG/0.4 ML SYR SC SCH (07:20)
[2016-11-16] MEDS: LISINOPRIL 10 MG TAB PO SCH (07:21)
[2016-11-16] MEDS: PREGABALIN 75 MG CAP PO SCH ×2 (07:22→21:35)
[2016-11-16 07:29] LABS: BASO % 0.5 %; BASO ABS # 0.04 K/uL (0-0.2); COMPLETE YES; EOS % 2.6 %; IG% 0.4 %; LYMPH % 17.8 %; LYMPH ABS # 1.43 K/uL (1.2-3.4); MEAN CELL VOLUME 87.9 fL (80-100); MEAN CORPUSCULAR HEMOGLOBIN 30.5 pg (25-34); MEAN CORPUSCULAR HGB CONC 34.7 g/dl (32-36); MEAN PLATELET VOLUME 7.9 fL (7.4-10.4); MONO % 9.1 %; NEUT % 69.6 %; PLATELET COUNT 209 K/uL (130-400); RED BLOOD COUNT 3.64 M/uL (4.7-6.1); WHITE BLOOD COUNT 8.04 K/uL (4.8-10.8)
[2016-11-16 07:47] LABS: BUN/CREATININE RATIO 10.1 (10-20); CALCIUM 8.5 mg/dl (8.5-10.1); CREATININE 0.74 mg/dl (0.60-1.40); MAGNESIUM 2.1 mg/dl (1.8-2.4); POTASSIUM 4.3 mmol/L (3.5-5.1)
[2016-11-16] MEDS: MULTI-VITAMIN INFUSION INJ 10 ML, THIAMINE HCL INJ 100 MG, FoLIC ACID INJ 1 MG in SODIU... IV SCH (10:06)
--- NOTE | 2016-11-16 14:28 | Progress Note ---
Subjective Date of Service: Nov 16, 2016. Subjective Pt evaluation today including: conversation w/ patient, physical exam, chart review, lab review, review of studies, conversation w/ [employer] drm consultant, review of inpatient medication list Complaining about right thigh pain, 4-6 out of 10, Tylenol not help, history of same pain before with history of local implant of trino Otherwise doing okay Problem List Medical Problems: (1) Confusion Status: Acute (2) DVT (deep venous thrombosis) Status: Acute (3) Fall Status: Acute (4) Gout Status: Acute (5) Hypernatremia Status: Acute (6) Hyponatremia Status: Acute (7) Hyponatremia Status: Acute (8) Multiple rib fractures Status: Acute (9) PNA (pneumonia) Status: Acute (10) Syncope Status: Acute Review of Systems Constitutional: + fatigue, No fever, No chills, No sweats, No weight loss, No weakness, No problem reported Eyes: No worsening of vision, No eye pain, No redness, No discharge, No diplopia ENT: No hearing loss, No unusual epistaxis, No nasal symptoms, No sore throat, No tinnitus, No dental problems, No trouble swallowing Respiratory: No cough, No sputum, No wheezing, No shortness of breath, No dyspnea on exertion, No dyspnea at rest, No hemoptysis Cardiac: No chest pain, No orthopnea, No PND, No edema, No claudication, No palpitations Abdomen: No pain, No nausea, No vomiting, No diarrhea, No constipation Musculoskeletal: + joint pain, No muscle pain, No swelling, No calf pain Male : No dysuria, No urinary frequency, No incontinence, No nocturia more than once/night, No slowing stream, No hematuria Neurologic: No memory loss, No paralysis, No weakness, No numbness/tingling, No vertigo, No balance problems Psychiatric: No depression symptoms, No anhedonism, No anxiety, No insomnia, No substance abuse Heme: No abnormal bleeding/bruising, No clotting problems, No swollen lymph nodes, No night sweats Endo: No fatigue, No excessive thirst, No excessive urination Skin: No rash, No itch, No new/changing skin lesions, No color change, No bleeding Objective Vital Signs Date Time Temp Pulse Resp B/P (MAP) Pulse Ox O2 Delivery O2 Flow Rate FiO2 11/16/16 12:00 95 Room Air 11/16/16 11:22 99 18 94 Room Air 11/16/16 10:30 36.9 87 20 116/76 (89) 95 Room Air 11/16/16 08:00 93 Room Air 11/16/16 07:19 80 18 90 Room Air 11/16/16 07:10 36.6 81 18 135/86 (102) 93 Room Air 11/16/16 04:00 Room Air 11/16/16 03:54 36.6 76 18 98/62 (74) 94 Room Air 11/16/16 00:01 Room Air 11/16/16 00:00 36.7 74 18 104/68 (80) 94 Room Air 11/15/16 20:06 87 18 95 Room Air 11/15/16 20:00 Room Air 11/15/16 19:22 37.1 96 22 110/74 (86) 95 Room Air 11/15/16 16:00 98 Room Air 11/15/16 15:25 36.6 92 22 118/79 (92) 96 Room Air 11/15/16 15:08 88 18 93 Room Air Physical Exam General Appearance: WD/WN, no apparent distress Eyes: normal inspection, PERRL, EOMI, sclerae normal ENT: normal ENT inspection, hearing grossly normal, pharynx normal Neck: supple, no adenopathy, thyroid normal, no JVD, no carotid bruits, trachea midline Respiratory/Chest: chest non-tender, normal breath sounds, no respiratory distress, no accessory muscle use, + decreased breath sounds, + wheezing Cardiovascular: regular rate, rhythm, no edema, no gallop, no JVD, no murmur Abdomen: normal bowel sounds, non tender, soft, no organomegaly, no pulsatile mass Extremities: normal range of motion, non-tender, normal inspection, no pedal edema, no calf tenderness, normal capillary refill, pelvis stable Neurologic/Psychiatric: 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, no motor/sensory deficits, alert, normal mood/affect, oriented x 3, + abnormal cerebellar tests Skin: normal color, warm/dry, no rash Lymphatic: no adenopathy Laboratory Results Last 24 Hours Test 11/16/16 06:50 White Blood Count 8.04 K/uL Red Blood Count 3.64 M/uL Hemoglobin 11.1 g/dL Hematocrit 32.0 % Mean Corpuscular Volume 87.9 fL Mean Corpuscular Hemoglobin 30.5 pg Mean Corpuscular Hemoglobin Concent 34.7 g/dl Platelet Count 209 K/uL Mean Platelet Volume 7.9 fL Neutrophils (%) (Auto) 69.6 % Lymphocytes (%) (Auto) 17.8 % Monocytes (%) (Auto) 9.1 % Eosinophils (%) (Auto) 2.6 % Basophils (%) (Auto) 0.5 % Neutrophils # (Auto) 5.60 K/uL Lymphocytes # (Auto) 1.43 K/uL Monocytes # (Auto) 0.73 K/uL Eosinophils # (Auto) 0.21 K/uL Basophils # (Auto) 0.04 K/uL RDW Standard Deviation 46.5 fL RDW Coefficient of Variation 14.3 % Immature Granulocyte % (Auto) 0.4 % Immature Granulocyte # (Auto) 0.03 K/uL Sodium Level 126 mmol/L Potassium Level 4.3 mmol/L Chloride Level 91 mmol/L Carbon Dioxide Level 30 mmol/L Anion Gap 5.0 mmol/L Blood Urea Nitrogen 8 mg/dl Creatinine 0.74 mg/dl Est Creatinine Clear Calc Drug Dose 107.7 ml/min Estimated GFR () 113.8 Estimated GFR (Non- 98.2 BUN/Creatinine Ratio 10.1 Random Glucose 79 mg/dl Calcium Level 8.5 mg/dl Magnesium Level 2.1 mg/dl Total Bilirubin 0.5 mg/dl Direct Bilirubin 0.2 mg/dl Aspartate Amino Transf (AST/SGOT) 15 U/L Alanine Aminotransferase (ALT/SGPT) 17 U/L Alkaline Phosphatase 120 U/L Total Protein 6.1 gm/dl Albumin 2.5 gm/dl Assessment and Plan 65 yo M admitted on 11/14/2016 because of abnormal lab results of low sodium, Na =118. MHx of COPD, current tobacco use of 1 ppd since age 14, HTN, HLD, chronic alcohol use of 4-6 beers ([place] light) and peripheral neuropathy and edema. Hyponatremia, likely from potomania, improved today is 126, is lower than yesterday hx of admitted for hyponatremia in the past, and has a chronically low sodium around 124-126. He was last discharged with a sodium on 127. Admission on maintenance fluids overnight at 100mL/hr, it is discontinued, and start banana bag for possible alcohol withdrawal Follow am labs CT of the head does not reveal any infarction or edema. There are small parafalcine lipomas noted. PT/OT COPD, possible mild exacerbation, because of mild wheezing Chronic Tobacco Use -Tobacco use hx of 1 ppd x 51 years. At his heaviest smoking hx he smoked 3 ppd. -CXR was obtained and shows a small left pleural effusion with L basilar opacities Continue duonebs QID and Q2H prn Consult quit smoking my offer help Nicotine patch provided Add low-dose oral prednisone because of possible mild COPD exacerbation Alcohol Abuse Typically drinks 4-6 [place] lights a day order librium prn, and Ativan with CIWA protocol for withdrawal Banana bag, Ativan as needed DVT ppx: Lovenox subq, teds, scds CODE STATUS: FULL CODE Discussed with patient about care plan, discussed with nurse, answered all the questions Disposition: From home, discharge when medically stable. Continued [facility] stay due to: multiple IV medications needed Discharge planning: home
[2016-11-16] MEDS ORDERED: NAPROXEN 250 MG TAB PO PRN (14:30)
[2016-11-16] MEDS: HYDROCODONE/ACETAMOPHEN 5/325MG TAB PO PRN (16:42)
[2016-11-17 07:04] VITALS: BP 136/88; PULSE 90; TEMP 36.6; O2SAT 96
[2016-11-17] MEDS: VENLAFAXINE HCL XR 75 MG CAPXR PO SCH (07:39)
[2016-11-17] MEDS: METOPROLOL SUCC 25MG EXT REL TAB PO SCH (07:39)
[2016-11-17] MEDS: OXCARBAZEPINE 150 MG TAB PO SCH ×2 (07:40→19:22)
[2016-11-17] MEDS: ATORVASTATIN 40 MG TAB PO SCH (07:40)
[2016-11-17] MEDS: NEPHROCAPS PO SCH (07:40)
[2016-11-17] MEDS: LISINOPRIL 10 MG TAB PO SCH (07:41)
[2016-11-17] MEDS: NICOTINE 21 MG/24 HR TDSY TD SCH ×2 (07:45→18:09)
[2016-11-17] MEDS: PREGABALIN 75 MG CAP PO SCH ×2 (07:45→19:22)
[2016-11-17 07:50] VITALS: PULSE 77; O2SAT 92
[2016-11-17] MEDS: ALBUT/IPRATROP 3MG/0.5MG NEB 3 ML VIAL INH SCH ×4 (07:50→19:53)
[2016-11-17] MEDS: ENOXAPARIN 40 MG/0.4 ML SYR SC SCH (08:46)
[2016-11-17] MEDS: MULTI-VITAMIN INFUSION INJ 10 ML, THIAMINE HCL INJ 100 MG, FoLIC ACID INJ 1 MG in SODIU... IV SCH (08:46)
[2016-11-17 10:42] LABS: BUN/CREATININE RATIO 4.9 (10-20); CALCIUM 8.7 mg/dl (8.5-10.1); CREATININE 0.8 mg/dl (0.60-1.40); POTASSIUM 4.1 mmol/L (3.5-5.1)
[2016-11-17 11:46] VITALS: PULSE 94; O2SAT 94
--- NOTE | 2016-11-17 14:26 | Progress Note ---
Subjective Date of Service: Nov 17, 2016. Subjective Pt evaluation today including: conversation w/ patient, physical exam, chart review, lab review, review of studies, conversation w/ [employer] iam consultant, review of inpatient medication list Still feels generalized weakness, and anxious, denied agitation, cough is better denied chest pain, deny productive cough Problem List Medical Problems: (1) Confusion Status: Acute (2) DVT (deep venous thrombosis) Status: Acute (3) Fall Status: Acute (4) Gout Status: Acute (5) Hypernatremia Status: Acute (6) Hyponatremia Status: Acute (7) Hyponatremia Status: Acute (8) Multiple rib fractures Status: Acute (9) PNA (pneumonia) Status: Acute (10) Syncope Status: Acute Review of Systems Constitutional: + weakness, No fever, No chills, No sweats, No weight loss, No fatigue, No problem reported Eyes: No worsening of vision, No eye pain, No redness, No discharge, No diplopia ENT: No hearing loss, No unusual epistaxis, No nasal symptoms, No sore throat, No tinnitus, No dental problems, No trouble swallowing Respiratory: + cough, No sputum, No wheezing, No shortness of breath, No dyspnea on exertion, No dyspnea at rest, No hemoptysis Cardiac: No chest pain, No orthopnea, No PND, No edema, No claudication, No palpitations Abdomen: No pain, No nausea, No vomiting, No diarrhea, No constipation Musculoskeletal: No joint pain, No muscle pain, No swelling, No calf pain Male : No dysuria, No urinary frequency, No incontinence, No nocturia more than once/night, No slowing stream, No hematuria Neurologic: No memory loss, No paralysis, No weakness, No numbness/tingling, No vertigo, No balance problems Psychiatric: No depression symptoms, No anhedonism, No anxiety, No insomnia, No substance abuse Heme: No abnormal bleeding/bruising, No clotting problems, No swollen lymph nodes, No night sweats Endo: No fatigue, No excessive thirst, No excessive urination Skin: No rash, No itch, No new/changing skin lesions, No color change, No bleeding Objective Vital Signs Date Time Temp Pulse Resp B/P (MAP) Pulse Ox O2 Delivery O2 Flow Rate FiO2 11/17/16 11:46 94 18 94 Room Air 11/17/16 08:00 Room Air 11/17/16 07:50 77 18 92 Room Air 11/17/16 07:04 36.6 90 18 136/88 (104) 96 Room Air 11/17/16 00:00 Room Air 11/16/16 23:59 36.6 84 18 128/85 (99) 96 Room Air 11/16/16 20:21 36.9 98 20 134/79 (97) 93 Room Air 11/16/16 19:01 97 18 95 Room Air 11/16/16 18:00 36.6 98 18 143/85 (104) 97 Room Air 11/16/16 16:00 Room Air 11/16/16 15:25 36.4 96 22 128/73 (91) 94 Room Air 11/16/16 14:38 88 18 94 Room Air Physical Exam General Appearance: WD/WN, no apparent distress, + thin, + pertinent finding ( mild anxious) Eyes: normal inspection, PERRL, EOMI, sclerae normal ENT: normal ENT inspection, hearing grossly normal, pharynx normal Neck: supple, no adenopathy, thyroid normal, no JVD, no carotid bruits, trachea midline Respiratory/Chest: chest non-tender, normal breath sounds, no respiratory distress, no accessory muscle use, + decreased breath sounds Cardiovascular: regular rate, rhythm, no edema, no gallop, no JVD, no murmur Abdomen: normal bowel sounds, non tender, soft, no organomegaly, no pulsatile mass Extremities: normal range of motion, non-tender, normal inspection, no pedal edema, no calf tenderness, normal capillary refill, pelvis stable 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, no motor/sensory deficits, alert, normal mood/affect, oriented x 3 Skin: normal color, warm/dry, no rash Lymphatic: no adenopathy Laboratory Results Last 24 Hours Test 11/16/16 15:39 11/17/16 09:41 Random Cortisol 13.07 mcg/dl Sodium Level 126 mmol/L Potassium Level 4.1 mmol/L Chloride Level 92 mmol/L Carbon Dioxide Level 27 mmol/L Anion Gap 7.0 mmol/L Blood Urea Nitrogen 4 mg/dl Creatinine 0.80 mg/dl Est Creatinine Clear Calc Drug Dose 99.6 ml/min Estimated GFR () 110.2 Estimated GFR (Non- 95.1 BUN/Creatinine Ratio 4.9 Random Glucose 114 mg/dl Calcium Level 8.7 mg/dl Magnesium Level 2.0 mg/dl Assessment and Plan 65 yo M admitted on 11/14/2016 because of abnormal lab results of low sodium, Na =118, improved today 126 MHx of COPD, current tobacco use of 1 ppd since age 14, HTN, HLD, chronic alcohol use of 4-6 beers (Trinity light) and peripheral neuropathy and edema. Hyponatremia, likely from potomania, improved today is 126, the same as yesterday hx of admitted for hyponatremia in the past, and has a chronically low sodium around 124-126. He was last discharged with a sodium on 127. Admission on maintenance fluids overnight at 100mL/hr, it is discontinued, and start banana bag for possible alcohol withdrawal, we'll continue Follow am labs CT of the head does not reveal any infarction or edema. There are small parafalcine lipomas noted. Stable and improving Extensive discussion about quite alcohol intake and bungee drinking, Discussed about fluid restriction, I'm okay to give oral sodium tablets, and watch sodium level closely, did discuss with him about the fundamental way to treat the hyponatremia is quite beer drinking COPD, possible mild exacerbation, because of mild wheezing Chronic Tobacco Use -Tobacco use hx of 1 ppd x 51 years. At his heaviest smoking hx he smoked 3 ppd. -CXR was obtained and shows a small left pleural effusion with L basilar opacities Continue duonebs QID and Q2H prn Consult quit smoking my offer help Nicotine patch provided Add low-dose oral prednisone because of possible mild COPD exacerbation Alcohol Abuse Typically drinks 4-6 Trinity lights a day order librium prn, and Ativan with CIWA protocol for withdrawal Banana bag, Ativan as needed Continue doing well no signs and symptoms alcohol withdrawal DVT ppx: Lovenox subq, teds, scds CODE STATUS: FULL CODE Discussed with patient about care plan, discussed with nurse, answered all the questions Disposition: From home, discharge when medically stable, possible tomorrow. Continued [facility] stay due to: multiple IV medications needed Discharge planning: home
[2016-11-17 15:20] VITALS: BP 136/90; PULSE 103; TEMP 36.9; O2SAT 95
[2016-11-17 15:30] VITALS: PULSE 103; O2SAT 95
[2016-11-17] MEDS: SODIUM CHLORIDE 1 GM TAB PO SCH ×2 (16:14→20:53)
[2016-11-17] MEDS: HYDROCODONE/ACETAMOPHEN 5/325MG TAB PO PRN (16:15)
[2016-11-17 19:53] VITALS: PULSE 97; O2SAT 91
[2016-11-18 00:18] VITALS: BP 139/85; PULSE 80; TEMP 36.8; O2SAT 95
[2016-11-18 07:03] VITALS: PULSE 80; O2SAT 98
[2016-11-18] MEDS: ALBUT/IPRATROP 3MG/0.5MG NEB 3 ML VIAL INH SCH ×2 (07:03→11:24)
[2016-11-18] MEDS ORDERED: SDMC1 PO (07:08)
[2016-11-18 07:12] LABS: COMPLETE YES; IG% 0.2 %; LYMPH % 9.9 %; LYMPH ABS # 0.87 K/uL (1.2-3.4); MEAN CELL VOLUME 88.9 fL (80-100); MEAN CORPUSCULAR HEMOGLOBIN 30.3 pg (25-34); MEAN CORPUSCULAR HGB CONC 34.1 g/dl (32-36); MEAN PLATELET VOLUME 8.1 fL (7.4-10.4); MONO % 6.3 %; NEUT % 83.6 %; PLATELET COUNT 245 K/uL (130-400); WHITE BLOOD COUNT 8.78 K/uL (4.8-10.8)
[2016-11-18] MEDS ORDERED: PRED20TA PO (07:13)
--- NOTE | 2016-11-18 07:18 | Discharge Instructions ---
Discharge Instructions Date of Service Nov 18, 2016. Admission Reason for Admission: Hyponatremia Discharge Discharge Diagnosis / Problem: Hyponatremia, likely from beer drink Discharge Goals Goal(s): Decrease discomfort, Improve function, Increase independence, Improve disease control, Improve nutritional status, Learn about illness, Diagnostic testing, Therapeutic intervention, Prevent Disease Progression, Specific goals Activity Recommendations Activity Limitations: resume your previous activity . Instructions / Follow-Up Instructions / Follow-Up you have Hyponatremia from heavy beer drink you need to quite alcohol intake and Beer drinking, Okay to give oral sodium tablets COPD, possible mild exacerbation, because of mild wheezing Chronic Tobacco Use you need to quit smoking - you need to follow up with your primary care physician in 1 week, check labs to see Na level by pcp - take medication as instructed, never overdose or any misuse, or take with alcohol, because misuse of medicine may cause organ damage or , call your primary care physician if have questions of medicaitons. - call your primary care physician OR go to local emergency room if has any fever/chill, chest pain, shortness of breathing, nausea/vomiting/abdominal pain , facial droop/slurry speech/local weakness, or if has any questions. - be careful of your walking , and fall precaution - diet as instructed - you need to follow up with your subspecialist - you should understand that it is important to follow up the above instruction , and "not following the above instruction" may cause delayed or missed care of your medical conditions which may cause permanent organ damage and even . Current Hospital Diet Patient's current hospital diet: Regular Diet Discharge Diet Recommended Diet: Regular Diet Procedures Procedures Performed: no Pending Studies Studies pending at discharge: no Laboratory Results Lipid Panel Test 11/08/16 12:05 Range/Units Triglycerides Level 67 0-150 mg/dl Cholesterol Level 118 0-200 mg/dl HDL Cholesterol 67 mg/dl Cholesterol/HDL Ratio 1.8 LDL Cholesterol, Calculated 38 mg/dl Medical Emergencies . Who to Call and When: Medical Emergencies: If at any time you feel your situation is an emergency, please call 911 immediately. . Non-Emergent Contact Non-Emergency issues call your: Primary Care Provider . . "Provider Documentation" section prepared by Ismael Lehman. . VTE Core Measure Inpt VTE Proph given/why not?: Enoxaparin (Lovenox)CLARITA, TRuth AnnEHorace Campbell, SCD's
[2016-11-18 07:25] VITALS: BP 135/78; PULSE 82; TEMP 36.5; O2SAT 97
[2016-11-18 07:52] LABS: BUN/CREATININE RATIO 9.1 (10-20); CALCIUM 8.8 mg/dl (8.5-10.1); CREATININE 0.73 mg/dl (0.60-1.40)
[2016-11-18] MEDS: MULTI-VITAMIN INFUSION INJ 10 ML, THIAMINE HCL INJ 100 MG, FoLIC ACID INJ 1 MG in SODIU... IV SCH (07:54)
[2016-11-18] MEDS: VENLAFAXINE HCL XR 75 MG CAPXR PO SCH (07:58)
[2016-11-18] MEDS: METOPROLOL SUCC 25MG EXT REL TAB PO SCH (07:58)
[2016-11-18] MEDS: PREGABALIN 75 MG CAP PO SCH (07:58)
[2016-11-18] MEDS: ATORVASTATIN 40 MG TAB PO SCH (07:58)
[2016-11-18] MEDS: SODIUM CHLORIDE 1 GM TAB PO SCH (07:58)
[2016-11-18] MEDS: NEPHROCAPS PO SCH (07:59)
[2016-11-18] MEDS: LISINOPRIL 10 MG TAB PO SCH (07:59)
[2016-11-18] MEDS: OXCARBAZEPINE 150 MG TAB PO SCH (07:59)
[2016-11-18] MEDS: ENOXAPARIN 40 MG/0.4 ML SYR SC SCH (08:02)
[2016-11-18] MEDS: NICOTINE 21 MG/24 HR TDSY TD SCH (10:43)
[2016-11-18 11:24] VITALS: PULSE 115; O2SAT 95
[2016-11-18 12:37] VITALS: BP 135/78; PULSE 115; TEMP 36.5; O2SAT 95
--- NOTE | 2016-11-18 15:54 | Discharge Summary ---
Discharge Summary Date of Service Nov 18, 2016. Discharge Summary Admission Date: Nov 14, 2016 at 19:10 Discharge Date: Nov 18, 2016 Principal Diagnosis: Hyponatremia from heavy beer drink Problems/Secondary Diagnoses: COPD, possible mild exacerbation, Chronic Tobacco Use Procedures: No Consultations: No Medication Reconciliation New Medications: Prednisone (Prednisone) 20 Mg Tab 2 TAB PO DAILY for 6 Days, #11 2 tab po bid for 2 days, then 1 tab po daily for 2 days, then 1/2 tab po daily for 2 days, then stop Sodium Chloride (Sodium Chloride) 1 Gm Tab 1 GM PO Q12 for 7 Days, #14 TAB Continued Medications: Acetaminophen (Tylenol) 325 Mg Tab 325-650 MG PO Q4H PRN for Pain, TAB Albuterol Hfa (Ventolin Hfa) 200 Puffs/51717 Mcg Aers 1-2 PUFFS INH Q4 PRN for Shortness of Breath Atorvastatin (Lipitor) 40 Mg Tab 40 MG PO QAM, TAB Folic Acid (Folic Acid) 400 Mcg Tab 400 MCG PO QAM Indomethacin (Indocin) 50 Mg Cap 50 MG PO DAILY PRN for FLARE UP, CAP WITH FOOD UNTIL PAIN RESOLVES Lisinopril (Zestril) 10 Mg Tab 10 MG PO QAM, TAB Metoprolol Succ (Toprol Xl) (Toprol-Xl) 25 Mg Tabcr 25 MG PO QAM Nicotine (Nicoderm Cq 21MG Patch) 21 Mg/24 Hr Dis 1 PATCH PO UD, #28 Oxcarbazepine (Trileptal) 300 Mg Tab 1 TAB PO BID Pregabalin (Lyrica) 75 Mg Cap 75 MG PO BID, CAP Venlafaxine Hcl (Venlafaxine Extended Rel) 75 Mg Cap 150 MG PO QAM, CAP Vitamin B Cmplx/Vitc/Folic Ac (Nephrocaps) Cap 1 CAP PO QAM for 30 Days, #30 CAP 11 Refills Discharge Exam Patient patient is to go home, generally feeling okay, no anxiety, no agitation , eating drinking good Review of Systems: Constitutional: No fever, No chills, No sweats, No weight loss, No weakness , No fatigue, No problem reported ENT: No hearing loss, No unusual epistaxis, No nasal symptoms, No sore throat, No tinnitus, No dental problems, No trouble swallowing, No problem reported Respiratory: No cough, No sputum, No wheezing, No shortness of breath, No dyspnea on exertion, No dyspnea at rest, No hemoptysis, No problem reported Cardiovascular: No chest pain, No orthopnea, No PND, No edema, No claudication, No palpitations, No problem reported Abdomen: No pain, No nausea, No vomiting, No diarrhea, No constipation, No GI bleeding, No problem reported Genitourinary - Male: No hematuria, No dysuria, No urinary frequency, No urinary urgency, No urinary hesitancy, No urinary retention, No urinary incontinence, No penile discharge, No lesions, No impotence, No problem reported Neurologic: No memory loss, No paralysis, No weakness, No numbness/tingling , No vertigo, No balance problems, No problem reported Psychiatric: No depression symptoms, No anhedonism, No anxiety, No insomnia , No substance abuse, No problem reported Endocrine: No fatigue, No excessive thirst, No excessive urination, No problem reported Hematologic / Lymphatic: No abnormal bleeding/bruising, No clotting problems , No swollen lymph nodes, No night sweats, No problem reported Physical Exam: General Appearance: WD/WN, + thin Eyes: normal inspection, PERRL ENT: normal ENT inspection, hearing grossly normal Neck: supple, no adenopathy Respiratory/Chest: chest non-tender, + decreased breath sounds, + wheezing ( occasional) Cardiovascular: regular rate, rhythm, no edema, no gallop Abdomen / GI: normal bowel sounds, non tender, soft, no organomegaly Extremities: normal inspection, no calf tenderness, normal capillary refill 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 Hyponatremia, likely from potomania, improved today is 126, stable and improving , is definitely his baseline hx of admitted for hyponatremia in the past, and has a chronically low sodium around 124-126. He was last discharged with a sodium on 127. Admission on maintenance fluids overnight at 100mL/hr, it is discontinued, and start banana bag for possible alcohol withdrawal, we'll continue Follow am labs CT of the head does not reveal any infarction or edema. There are small parafalcine lipomas noted. Stable and improving Extensive discussion about quite alcohol intake and bungee drinking, Discussed about fluid restriction, I'm okay to give oral sodium tablets, and watch sodium level closely, did discuss with him about the fundamental way to treat the hyponatremia is quite beer drinking COPD, possible mild exacerbation, because of mild wheezing Chronic Tobacco Use -Tobacco use hx of 1 ppd x 51 years. At his heaviest smoking hx he smoked 3 ppd. -CXR was obtained and shows a small left pleural effusion with L basilar opacities Continue duonebs QID and Q2H prn Consult quit smoking my offer help Nicotine patch provided Has started low-dose oral prednisone because of possible mild COPD exacerbation Alcohol Abuse Typically drinks 4-6 Jber lights a day order librium prn, and Ativan with CIWA protocol for withdrawal Banana bag, Ativan as needed Continue doing well no signs and symptoms alcohol withdrawal DVT ppx: Lovenox subq, teds, scds CODE STATUS: FULL CODE Discussed with patient about discharge plan, because the underlined medical conditions, will be in high risk of readmission, I encouraged patient to follow- up with PCP and specialist as instructed, call PCP if have any questions Discharge instruction you have Hyponatremia from heavy beer drink you need to quite alcohol intake and Beer drinking, Okay to give oral sodium tablets COPD, possible mild exacerbation, because of mild wheezing Chronic Tobacco Use you need to quit smoking - you need to follow up with your primary care physician in 1 week, check labs to see Na level by pcp - take medication as instructed, never overdose or any misuse, or take with alcohol, because misuse of medicine may cause organ damage or , call your primary care physician if have questions of medicaitons. - call your primary care physician OR go to local emergency room if has any fever/chill, chest pain, shortness of breathing, nausea/vomiting/abdominal pain , facial droop/slurry speech/local weakness, or if has any questions. - be careful of your walking , and fall precaution - diet as instructed - you need to follow up with your subspecialist - you should understand that it is important to follow up the above instruction , and "not following the above instruction" may cause delayed or missed care of your medical conditions which may cause permanent organ damage and even . Total Time Spent: Greater than 30 minutes This includes examination of the patient, discharge planning, medication reconciliation, and communication with other providers. Discharge Instructions Please refer to the electronic Patient Visit Report (Discharge Instructions) for additional information.
== END 2016-11-18 12:51 | disposition home or self-care (01) | DRG 641 ==
LOC: C.EDB 14:31 → C.2T 19:10 → ENRESERV 19:35 → C.MS4W 11-16 18:13
PROVIDERS: ADMIT Internal Medicine; ATTEND Hospitalist
DX: E87.1 Hypo-osmolality and hyponatremia (principal); J44.1 Chronic obstructive pulmonary disease with (acute) exacerbation; F10.10 Alcohol abuse, uncomplicated; I10 Essential (primary) hypertension; F17.200 Nicotine dependence, unspecified, uncomplicated; E78.5 Hyperlipidemia, unspecified; G62.9 Polyneuropathy, unspecified; Z79.899 Other long term (current) drug therapy

== ENCOUNTER → 2016-11-27 | Outpatient (CLI) | payer BC ==
[~2016-11-27] MED LIST changes: +ACET-1311 PO; +B-CO1CAP17 PO; +FLV400 PO; +NICO21DI35 PO; -NICO21DI4 TD; +SDMC1 PO; +VENL75CA73 PO
[2016-11-27 18:08] LABS: HEMATOCRIT 36.3 % (42-52); MEAN CELL VOLUME 90.3 fL (80-100); MEAN CORPUSCULAR HEMOGLOBIN 31.1 pg (25-34); MEAN CORPUSCULAR HGB CONC 34.4 g/dl (32-36); MEAN PLATELET VOLUME 8.5 fL (7.4-10.4); PLATELET COUNT 306 K/uL (130-400); RED BLOOD COUNT 4.02 M/uL (4.7-6.1); WHITE BLOOD COUNT 11.72 K/uL (4.8-10.8)
[2016-11-27 18:19] LABS: ALT/SGPT 33 U/L (12-78); BLOOD UREA NITROGEN 10 mg/dl (7-18); BUN/CREATININE RATIO 13.7 (10-20); CALCIUM 8.3 mg/dl (8.5-10.1); CARBON DIOXIDE 31 mmol/L (21-32); CHLORIDE 97 mmol/L (98-107); CREATININE 0.76 mg/dl (0.60-1.40); GLUCOSE 83 mg/dl (70-99); POTASSIUM 4.4 mmol/L (3.5-5.1); SODIUM 133 mmol/L (136-145)
[2016-11-27 18:22] LABS: ALB/GLOB RATIO 0.8 (0.9-2); ALKALINE PHOSPHATASE 134 U/L (45-117); AST/SGOT 25 U/L (15-37)
[2016-11-27 18:55] LABS: BASO ABS # 0.11 K/uL (0-0.2); BASOPHIL % 0.9 % (0-2); COMPLETE YES; EOSINOPHIL % 0.9 %; LYMPH ABS # 1.34 K/uL (1.2-3.4); LYMPHOCYTE % 11.4 %; MYELOCYTE % 0.9 %; NEUTROPHILS % 80.6 %
== END | disposition home or self-care (01) ==
LOC: C.LABPVFM 11:41
PROVIDERS: ATTEND Neuromusculoskeletal Medicine & OMM
DX: E87.1 Hypo-osmolality and hyponatremia (principal); D64.9 Anemia, unspecified

== ENCOUNTER → 2016-12-29 | Outpatient (CLI) | payer BC ==
[2016-12-29 17:29] LABS: PARTIAL THROMBOPLASTIN RATIO 1.1; PROTHROMBIN TIME (PATIENT) 10.3 SECONDS (9.0-12.0)
[2016-12-29 17:43] LABS: BLOOD UREA NITROGEN 9 mg/dl (7-18); BUN/CREATININE RATIO 10.8 (10-20); CALCIUM 8.5 mg/dl (8.5-10.1); CARBON DIOXIDE 28 mmol/L (21-32); CHLORIDE 99 mmol/L (98-107); CREATININE 0.87 mg/dl (0.60-1.40); GLUCOSE 97 mg/dl (70-99); POTASSIUM 4.2 mmol/L (3.5-5.1); SODIUM 133 mmol/L (136-145)
== END | disposition home or self-care (01) ==
LOC: C.LABPVFM 12:37
PROVIDERS: ATTEND Internal Medicine Nephrology
DX: R79.89 Other specified abnormal findings of blood chemistry (principal); R60.0 Localized edema; E87.1 Hypo-osmolality and hyponatremia

== ENCOUNTER → 2017-03-02 | Outpatient (CLI) | payer BC | END | disposition home or self-care (01) | LOC: C.RDSM 13:35 | PROVIDERS: ATTEND Physical Medicine & Rehabilitation Sports Medicine | DX: Z96.7 Presence of other bone and tendon implants (principal); Z47.89 Encounter for other orthopedic aftercare ==

== ENCOUNTER → 2017-04-11 | Outpatient (CLI) | payer BC ==
[2017-04-11 17:49] LABS: ALBUMIN 2.8 gm/dl (3.4-5.0); BLOOD UREA NITROGEN 10 mg/dl (7-18); CALCIUM 8.6 mg/dl (8.5-10.1); CARBON DIOXIDE 29 mmol/L (21-32); CREATININE 0.98 mg/dl (0.60-1.40); GLUCOSE 83 mg/dl (70-99); PHOSPHORUS 3.6 mg/dl (2.5-4.9); POTASSIUM 4.4 mmol/L (3.5-5.1); SODIUM 135 mmol/L (136-145)
== END | disposition home or self-care (01) ==
LOC: C.LABPVFM 11:20
PROVIDERS: ATTEND Internal Medicine Nephrology
DX: E46 Unspecified protein-calorie malnutrition (principal)

== ENCOUNTER → 2017-08-10 | Outpatient (CLI) | payer BC ==
--- NOTE | 2017-08-10 12:14 | DIAGNOSTIC IMAGING REPORT ---
L-SPINE MIN 4 VIEWS ROUTINE HISTORY: Trauma. Pain. LOW BACK PAIN RIB PAIN ON RIGHT COMPARISON: None. FINDINGS: There is no fracture. No subluxation. Considerable degenerative disc changes throughout. 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 No evidence for subluxation. Findings of generalized atherosclerotic change and ectasia of the abdominal aorta. IMPRESSION: Considerable degenerative change. No acute process. The above report was generated using voice recognition software. It may contain grammatical, syntax or spelling errors. Electronically signed by: Jagdish Rehman M.D. 08/10/2017 12:12 PM Dictated Date/Time: 08/10/2017 12:07 PM
--- NOTE | 2017-08-10 12:15 | DIAGNOSTIC IMAGING REPORT ---
R RIBS UNILATERAL WITH PA CHEST CLINICAL HISTORY: RIB PAIN ON RIGHT SIDE COMPARISON STUDY: None FINDINGS: The patient is hyperinflated. There is no pneumothorax. There is blunting of both lateral costophrenic angles consistent with small pleural effusions. There is loculated fluid within the right major fissure. No acute right-sided rib fractures are visualized. There is an old right seventh rib fracture. IMPRESSION: 1. No evidence of pneumothorax 2. No acute rib fractures identified 3. Small bilateral pleural effusions Electronically signed by: Chuck Cartwright M.D. 08/10/2017 12:13 PM Dictated Date/Time: 08/10/2017 12:12 PM
[2017-08-10 12:58] LABS: ALBUMIN 3.1 gm/dl (3.4-5.0); BLOOD UREA NITROGEN 7 mg/dl (7-18); CALCIUM 8.3 mg/dl (8.5-10.1); CARBON DIOXIDE 28 mmol/L (21-32); CREATININE 0.91 mg/dl (0.60-1.40); GLUCOSE 91 mg/dl (70-99); POTASSIUM 4.4 mmol/L (3.5-5.1); SODIUM 127 mmol/L (136-145)
[2017-08-10 12:59] LABS: PHOSPHORUS 3.4 mg/dl (2.5-4.9)
== END | disposition home or self-care (01) ==
LOC: C.LABPVFM 11:04
PROVIDERS: ATTEND Neuromusculoskeletal Medicine & OMM
DX: M54.5 Low back pain (principal); R07.81 Pleurodynia; I10 Essential (primary) hypertension; J90 Pleural effusion, not elsewhere classified

== ENCOUNTER → 2017-11-05 | Outpatient (CLI) | payer BC ==
[~2017-11-05] MED LIST changes: -B-CO1CAP17 PO; +B-COCAP2 PO
== END | disposition home or self-care (01) ==
LOC: C.RDSM 09:58
PROVIDERS: ATTEND Physical Medicine & Rehabilitation Sports Medicine
DX: S79.821A Other specified injuries of right thigh, initial encounter (principal); X58.XXXA Exposure to other specified factors, initial encounter

== ENCOUNTER 2018-12-19 14:25 | Inpatient (IN) ==
[2018-12-19] MEDS ORDERED: methylPREDNISolone 125 MG/2 ML VIAL IV STA (14:43)
[2018-12-19] MEDS ORDERED: ALBUT/IPRATROP 3MG/0.5MG NEB 3 ML VIAL INH STA (14:43)
[2018-12-19] MEDS ORDERED: SODIUM CHLORIDE 0.9% 1000ML 1,000 ML IV SCH ×2 (14:45→19:00)
[2018-12-19] MEDS: MAGNESIUM SULFATE / D5W 1 GM/100 ML BAG IV SCH ×2 (15:28→16:29)
[2018-12-19 15:32] LABS: Base Excess VBG 4.5 mEq/L; HCO3 VBG 35 mmol/L; PCO2 VBG 79 mmHg (38-50); PO2 VBG 31 mmHg; pH VBG 7.26 (7.36-7.41)
[2018-12-19 15:34] LABS: Oxygen Saturation VBG < 60.0 %
[2018-12-19 15:44] LABS: Partial Thromboplastin Ratio 0.9; Partial Thromboplastin Time 25.4 Seconds (21.0-31.0); Prothrombin Time 10.5 Seconds (9.0-12.0)
--- NOTE | 2018-12-19 15:45 | XRay Report ---
XR chest 1V portable CLINICAL HISTORY: 68 years-old Male presenting with Dyspnea. TECHNIQUE: Portable upright AP view of the chest was obtained. COMPARISON: 04/24/2018. FINDINGS: Atherosclerosis of the aortic arch. Cardiac silhouette normal in size. Diffusely coarsened lung ching ngs. No focal opacity. No large effusion or pneumothorax. View old lower lateral rib rib fractures torres ggested. Upper abdomen normal. IMPRESSION: 1. Coarsened lung markings could relate to mild congestive change. This is chronic. 2. No focal infiltrate to suggest acute cardiopulmonary disease. Electronically signed by: Jakob Burleson M.D. 12/19/2018 3:43 PM
[2018-12-19 15:48] LABS: Alanine Aminotransferase 37 U/L (12-78); Albumin Level 3.4 gm/dl (3.4-5.0); Aspartate Aminotransferase 34 U/L (15-37); BUN Creatinine Ratio 10.7 (10-20); Blood Urea Nitrogen 8 mg/dl (7-18); Calcium 8.8 mg/dl (8.5-10.1); Carbon Dioxide 36 mmol/L (21-32); Chloride 94 mmol/L (98-107); Creatinine Clr Calc Pharmacy 90.1 ml/min; Est GFR (Non-African American) 94.1; Glucose 104 mg/dl (70-99); Potassium 4.2 mmol/L (3.5-5.1); Sodium 134 mmol/L (136-145)
[2018-12-19 15:53] LABS: Albumin Globulin Ratio 0.9 (0.9-2); Alkaline Phosphatase 98 U/L (45-117); Bilirubin,Total 0.4 mg/dl (0.2-1); Globulin 3.9 gm/dl (2.5-4.0); Total Protein 7.3 gm/dl (6.4-8.2); Troponin I < 0.015 ng/ml (0-0.045)
[2018-12-19 16:03] LABS: Basophils # (auto) 0.05 K/uL (0-0.2); Basophils % (auto) 0.5 %; Eosinophils # (auto) 1.81 K/uL (0-0.5); Eosinophils % (auto) 16.5 %; Hematocrit (blood only) 42.8 % (42-52); Hemoglobin 14.2 g/dL (14.0-18.0); Immature Granulocytes # (auto) 0.01 K/uL (0.00-0.02); Immature Granulocytes % (auto) 0.1 %; Lymphocytes # (auto) 1.32 K/uL (1.2-3.4); Mean Corpuscular Hemoglobin 33.1 pg (25-34); Mean Corpuscular Hgb Conc 33.2 g/dL (32-36); Mean Corpuscular Volume 99.8 fL (80-100); Monocytes # (auto) 0.71 K/uL (0.11-0.59); Monocytes % (auto) 6.5 %; Neutrophils # (auto) 7.06 K/uL (1.4-6.5); Neutrophils % (auto) 64.4 %; Platelet Count 254 K/uL (130-400); RDW Coefficient of Variation 13.9 % (11.5-14.5); RDW Standard Deviation 51.2 fL (36.4-46.3); Red Blood Count 4.29 M/uL (4.7-6.1); White Blood Count 10.96 K/uL (4.8-10.8)
[2018-12-19 16:29] LABS: Appearance Urine Turbid (Clear); Bacteria Urine Automated 4+ (Negative); Bilirubin Urine Negative (Negative); Blood Urine 1+ (Negative); Cast Urine Automated 0 /lpf (0-5); Color Urine Yellow; Epithelial Cell Urine Auto >30 /lpf (0-5); Glucose Urine UA Negative (Negative); Ketones Urine 1+ (Negative); Leukocyte Esterase Urine 3+ (Negative); Nitrite Urine Negative (Negative); Protein Urine 1+ (Negative); Specific Gravity Urine 1.021 (1.000-1.030); Urobilinogen Urine Negative (Negative); WBC Urine Automated >30 /hpf (0-5)
--- NOTE | 2018-12-19 17:26 | Emergency Department Note ---
Entered by Tawanna Frias acting as a scribe for History of Present Illness General Chief complaint: Shortness of Breath/Dyspnea Stated complaint: breathing diff. Time Seen by Provider: 12/19/18 14:27 Source: patient and EMS Mode of arrival: EMS Limitations: no limitations History of Present Illness Provider complaint: Shortness of breath Onset (ago): day(s) 2 Location: chest Radiation: non-radiation Severity: moderate Relieved By: + none Exacerbated By: + other (oxygen) Associated symptoms: + cough and + other (swelling); no chest pain The patient is a 68 year old male who presents to the Emergency Department with complaints of shortness of breath for the past couple of days. The patient states he has a clear productive cough. The patient has been smoking over the past five years, and has not had anything to drink today. Per the patient, he has had swelling on his legs Per EMS, the patient has a history of COPD and wears 3 L oxygen at home. He states the patient was SOB and was going to the bathroom but he collapsed, he did not lost consciousness. Home Medications Home Medications Medication Instructions Recorded Confirmed Type gabapentin 100 mg capsule 300 mg PO TID PRN #180 cap 11/19/18 12/19/18 History pregabalin 100 mg capsule 100 mg PO BID #60 cap 12/04/18 12/19/18 History fluticasone 500 mcg-salmeterol 50 1 puffs INH BID 12/06/18 12/19/18 History mcg/dose blistr powdr for inhalation ipratropium-albuterol 0.5 mg-3 3 ml INH QID PRN ml 12/06/18 12/19/18 History mg(2.5 mg base)/3 mL nebulization soln metoprolol succinate ER 25 mg 25 mg PO DAILY 12/06/18 12/19/18 History tablet,extended release 24 hr metoprolol succinate ER 50 mg 50 mg PO DAILY #30 tab 12/06/18 12/19/18 History tablet,extended release 24 hr albuterol sulfate HFA 90 1 - 2 puff INHALATION Q4H PRN #18 12/13/18 12/19/18 Rx mcg/actuation aerosol inhaler gm atorvastatin 40 mg tablet 40 mg PO DAILY 12/13/18 12/19/18 History folic acid 400 mcg tablet 0.4 mg PO DAILY 12/13/18 12/19/18 History lisinopril 10 mg tablet 10 mg PO DAILY 12/13/18 12/19/18 History oxcarbazepine 300 mg tablet 300 mg PO BID 12/13/18 12/19/18 History venlafaxine ER 150 mg 150 mg PO DAILY 12/13/18 12/19/18 History capsule,extended release 24 hr vitamin B complex-folic acid 2,000 1 cap PO DAILY 12/13/18 12/19/18 History mcg capsule Allergies Allergy/AdvReac Type Severity Reaction Status Date / Time No Known Allergies Allergy Unverified 12/19/18 15:46 Past Med/Surg History Medical History Face lacerations (Acute) Neuropathy (Chronic) Hypertension (Chronic) Alcohol abuse (Chronic) COPD (chronic obstructive pulmonary disease) (Chronic) Anemia (Acute) Tremor H/O tooth extraction Lower teeth on 04/23/2018 Hyperlipidemia Surgical History S/P foot surgery Family History Father Hypertension Aneurysm Mother Swelling Other No significant family history Social History Preferred Language: Jamaican Communication Ability: Impaired Quality Assurance Coordinator Required: No Beliefs That Will Affect Care: None Current Living Situation: Spouse Feels Safe at Home: Yes Smoking Status: Current every day smoker Tobacco Type: cigarettes ; Cigarettes Per Day: 10 ; Second Hand Exposure: No ; Hx Alcohol Use: Yes Alcohol type: other Alcohol Intake Frequency Comment: 8+ per day Hx Substance Use: No Review of Systems See HPI for pertinent positives & negatives. and A total of 10 systems reviewed and were otherwise negative Physical Exam Vital Signs Vital Signs - 24 hr 12/19/18 14:34 12/19/18 14:44 12/19/18 14:45 Temperature 36.8 C Temperature Source Oral Sepsis Recent Fever Within 48 Hours No Sepsis Action Taken by Nursing No Action Required Oxygen Flow Rate - Titration 6 Pulse Oximetry Post Tiitration 94 Pulse Rate 110 H Pulse Rate [Right Finger] Pulse Rhythm [Right Finger] Respiratory Rate 22 Respiratory Effort / Characteristics Non-Labored Respiratory Depth Normal Respiratory Pattern Blood Pressure 156/98 H Blood Pressure [Right Arm] Blood Pressure Mean 117 Blood Pressure Mean [Right Arm] Pulse Oximetry 100 84 L 100 Oxygen Delivery Method Non-rebreather Room Air Non-rebreather Non-rebreather Oxygen Flow Rate 6 0 6 Fraction of Inspired Oxygen 12/19/18 15:24 12/19/18 15:29 12/19/18 16:18 Temperature Temperature Source Sepsis Recent Fever Within 48 Hours Sepsis Action Taken by Nursing Oxygen Flow Rate - Titration Pulse Oximetry Post Tiitration Pulse Rate 112 H Pulse Rate [Right Finger] 117 H 111 H Pulse Rhythm [Right Finger] Respiratory Rate 18 18 19 Respiratory Effort / Characteristics Non-Labored Spontaneous Non-Labored Non-Labored Spontaneous Respiratory Depth Normal Normal Respiratory Pattern Regular Regular Blood Pressure Blood Pressure [Right Arm] 146/96 H Blood Pressure Mean Blood Pressure Mean [Right Arm] 112 Pulse Oximetry 98 100 99 Oxygen Delivery Method Non-rebreather Nebulizer Oxygen Flow Rate 6 Fraction of Inspired Oxygen 25 12/19/18 16:24 12/19/18 16:30 Temperature Temperature Source Sepsis Recent Fever Within 48 Hours Sepsis Action Taken by Nursing Oxygen Flow Rate - Titration Pulse Oximetry Post Tiitration Pulse Rate Pulse Rate [Right Finger] 108 H 111 H Pulse Rhythm [Right Finger] Regular Respiratory Rate 15 17 Respiratory Effort / Characteristics Non-Labored Non-Labored Respiratory Depth Normal Normal Respiratory Pattern Regular Regular Blood Pressure Blood Pressure [Right Arm] 149/96 H 140/95 Blood Pressure Mean Blood Pressure Mean [Right Arm] 113 110 Pulse Oximetry 100 94 Oxygen Delivery Method BiPAP BiPAP Oxygen Flow Rate Fraction of Inspired Oxygen GENERAL: Moderate distress, non-toxic, dyspneic, Non rebreather in place. EYE EXAM: Normal conjunctiva. PERRL, no anisocoria and EOM's grossly intact w/o pain. OROPHARYNX: Moist mucous membranes. Edentulous. NECK: Supple, no nuchal rigidity, no adenopathy, non-tender. No signs of meningismus. LUNGS: Diffuse inspiratory expiratory wheezing throughout. Tachypnic. HEART: Tachycardic and irregular. ABDOMEN: Abdomen soft, non-tender, normo-active bowel sounds, no masses, no rebound or guarding. BACK: No CVA TTP. SKIN: No rashes and no bruising. UPPER EXTREMITIES: Upper extremities are grossly normal. LOWER EXTREMITIES: Trace lower extremity edema, negative Alonso's sign NEURO EXAM: A&O x3, cranial nerves II-XII grossly intact, normal speech, [5/5 strength throughout, no sensory deficits, good finger to nose, no pronator drift], moves all 4 extremities on command w/o issue. Course 1430: Medical records reviewed. The patient was seen in room B2, a physical examination was performed. 1559: I ordered the patient a BiPap, he had a VBG pH 7.2, and PCO2 of 79. 1608: The patient feels a lot better now that he had the BiPap. 1630: I spoke with Dr. Toussaint, [facility] Hospitalist, about the patients case and he agreed to accept the patient for further evaluation. 1645: The patient was admitted. Administered Medications Discontinued Medications Albuterol (Duoneb) 12 ml INH ONE STA Stop: 12/19/18 14:44 Last Admin: 12/19/18 15:22 Dose: 12 ml Documented by: [id number] Magnesium Sulfate/Dextrose (Magnesium Sulfate / D5w) 1 gm in 100 mls @ 100 mls/hr IV Q1H DEBBY Stop: 12/19/18 16:44 Last Admin: 12/19/18 16:29 Dose: 100 mls/hr Documented by: [id number] Infusion: 12/19/18 16:27 Dose: 0 mls/hr Documented by: [id number] Admin: 12/19/18 15:28 Dose: 100 mls/hr Documented by: [id number] Sodium Chloride (Nss 1000ml) 1,000 mls @ 999 mls/hr IV .Q1H1M DEBBY Stop: 12/19/18 15:45 Last Infusion: 12/19/18 16:27 Dose: 0 mls/hr Documented by: [id number] Admin: 12/19/18 15:29 Dose: 999 mls/hr Documented by: [id number] Methylprednisolone (Solumedrol) 125 mg IV NOW STA Stop: 12/19/18 14:44 Last Admin: 12/19/18 15:28 Dose: 125 mg Documented by: [id number] Medical Decision Making Differential Diagnosis Differential diagnosis: Etiologies such as infections, reactive airway disease, pneumonia, pneumothorax, COPD, CHF, cardiac ischemia, pulmonary embolism, musculoskeletal, gastrointestinal, as well as others were entertained. Medical Records Attestation: I reviewed the patient's medical records. Home Medications Current Medication List: was personally reviewed by me Laboratory Data Attestation: I reviewed the patient's lab results. Result diagrams: 12/19/18 15:15 12/19/18 14:43 Lab Results 12/19/18 12/19/18 12/19/18 Range/Units 14:43 15:15 15:15 WBC 10.96 H (4.8-10.8) K/uL RBC 4.29 L (4.7-6.1) M/uL Hgb 14.2 (14.0-18.0) g/dL Hct 42.8 (42-52) % MCV 99.8 (80-100) fL MCH 33.1 (25-34) pg MCHC 33.2 (32-36) g/dL RDW Std Deviation 51.2 H (36.4-46.3) fL RDW Coeff of Jem 13.9 (11.5-14.5) % Plt Count 254 (130-400) K/uL MPV 10.0 (7.4-10.4) fL Immature Gran % (Auto) 0.1 % Neut % (Auto) 64.4 % Lymph % (Auto) 12.0 % [place] % (Auto) 6.5 % Eos % (Auto) 16.5 % Baso % (Auto) 0.5 % Immature Gran # (Auto) 0.01 (0.00-0.02) K/uL Neut # (Auto) 7.06 H (1.4-6.5) K/uL Lymph # (Auto) 1.32 (1.2-3.4) K/uL [place] # (Auto) 0.71 H (0.11-0.59) K/uL Eos # (Auto) 1.81 H (0-0.5) K/uL Baso # (Auto) 0.05 (0-0.2) K/uL Absolute Nucleated RBC 0.00 (0-0) K/uL Nucleated RBC % (auto) 0.0 % PT 10.5 (9.0-12.0) Seconds INR 1.0 (0.9-1.1) APTT 25.4 (21.0-31.0) Seconds PTT Ratio 0.9 VBG pH (7.36-7.41) VBG pCO2 (38-50) mmHg VBG pO2 mmHg VBG HCO3 mmol/L VBG O2 Saturation % VBG Base Excess mEq/L Barometric Pressure mm/Hg Sodium 134 L (136-145) mmol/L Potassium 4.2 (3.5-5.1) mmol/L Chloride 94 L (98-107) mmol/L Carbon Dioxide 36 H (21-32) mmol/L Anion Gap 4.0 (3-11) BUN 8 (7-18) mg/dl Creatinine 0.78 (0.6-1.4) mg/dl Est Cr Clr Drug Dosing 90.1 ml/min Est GFR ( Amer) 109.0 Est GFR (Non-Af Amer) 94.1 BUN/Creatinine Ratio 10.7 (10-20) Glucose 104 H (70-99) mg/dl Calcium 8.8 (8.5-10.1) mg/dl Magnesium 2.0 (1.8-2.4) mg/dl Total Bilirubin 0.4 (0.2-1) mg/dl AST 34 (15-37) U/L ALT 37 (12-78) U/L Alkaline Phosphatase 98 (45-117) U/L Troponin I < 0.015 (0-0.045) ng/ml Total Protein 7.3 (6.4-8.2) gm/dl Albumin 3.4 (3.4-5.0) gm/dl Globulin 3.9 (2.5-4.0) gm/dl Albumin/Globulin Ratio 0.9 (0.9-2) Urine Color Urine Appearance (Clear) Urine pH (4.5-7.5) Ur Specific [place] (1.000-1.030) Urine Protein (Negative) Urine Glucose (UA) (Negative) Urine Ketones (Negative) Urine Blood (Negative) Urine Nitrite (Negative) Urine Bilirubin (Negative) Urine Urobilinogen (Negative) Ur Leukocyte Esterase (Negative) Urine WBC (Auto) (0-5) /hpf Urine RBC (Auto) (0-4) /hpf U Hyaline Cast (Auto) (0-5) /lpf U Epithel Cells (Auto) (0-5) /lpf Urine Bacteria (Auto) (Negative) Urine Yeast 12/19/18 12/19/18 Range/Units 15:15 16:15 WBC (4.8-10.8) K/uL RBC (4.7-6.1) M/uL Hgb (14.0-18.0) g/dL Hct (42-52) % MCV (80-100) fL MCH (25-34) pg MCHC (32-36) g/dL RDW Std Deviation (36.4-46.3) fL RDW Coeff of Jem (11.5-14.5) % Plt Count (130-400) K/uL MPV (7.4-10.4) fL Immature Gran % (Auto) % Neut % (Auto) % Lymph % (Auto) % [place] % (Auto) % Eos % (Auto) % Baso % (Auto) % Immature Gran # (Auto) (0.00-0.02) K/uL Neut # (Auto) (1.4-6.5) K/uL Lymph # (Auto) (1.2-3.4) K/uL [place] # (Auto) (0.11-0.59) K/uL Eos # (Auto) (0-0.5) K/uL Baso # (Auto) (0-0.2) K/uL Absolute Nucleated RBC (0-0) K/uL Nucleated RBC % (auto) % PT (9.0-12.0) Seconds INR (0.9-1.1) APTT (21.0-31.0) Seconds PTT Ratio VBG pH 7.26 L (7.36-7.41) VBG pCO2 79 H (38-50) mmHg VBG pO2 31 mmHg VBG HCO3 35 mmol/L VBG O2 Saturation < 60.0 % VBG Base Excess 4.5 mEq/L Barometric Pressure 738.6 mm/Hg Sodium (136-145) mmol/L Potassium (3.5-5.1) mmol/L Chloride (98-107) mmol/L Carbon Dioxide (21-32) mmol/L Anion Gap (3-11) BUN (7-18) mg/dl Creatinine (0.6-1.4) mg/dl Est Cr Clr Drug Dosing ml/min Est GFR ( Amer) Est GFR (Non-Af Amer) BUN/Creatinine Ratio (10-20) Glucose (70-99) mg/dl Calcium (8.5-10.1) mg/dl Magnesium (1.8-2.4) mg/dl Total Bilirubin (0.2-1) mg/dl AST (15-37) U/L ALT (12-78) U/L Alkaline Phosphatase (45-117) U/L Troponin I (0-0.045) ng/ml Total Protein (6.4-8.2) gm/dl Albumin (3.4-5.0) gm/dl Globulin (2.5-4.0) gm/dl Albumin/Globulin Ratio (0.9-2) Urine Color Yellow Urine Appearance Turbid A (Clear) Urine pH 5.0 (4.5-7.5) Ur Specific [place] 1.021 (1.000-1.030) Urine Protein 1+ H (Negative) Urine Glucose (UA) Negative (Negative) Urine Ketones 1+ H (Negative) Urine Blood 1+ H (Negative) Urine Nitrite Negative (Negative) Urine Bilirubin Negative (Negative) Urine Urobilinogen Negative (Negative) Ur Leukocyte Esterase 3+ H (Negative) Urine WBC (Auto) >30 H (0-5) /hpf Urine RBC (Auto) 5-10 H (0-4) /hpf U Hyaline Cast (Auto) 0 (0-5) /lpf U Epithel Cells (Auto) >30 H (0-5) /lpf Urine Bacteria (Auto) 4+ H (Negative) Urine Yeast Not Reportable Imaging Data Radiologist's Impression: Radiology results as stated below per my review and the radiologist's interpretation: XR chest 1V portable CLINICAL HISTORY: 68 years-old Male presenting with Dyspnea. TECHNIQUE: Portable upright AP view of the chest was obtained. COMPARISON: 04/24/2018. FINDINGS: Atherosclerosis of the aortic arch. Cardiac silhouette normal in size. Diffusely coarsened lung markings. No focal opacity. No large effusion or pneumothorax. View old lower lateral rib rib fractures suggested. Upper abdomen normal. IMPRESSION: 1. Coarsened lung markings could relate to mild congestive change. This is chronic. 2. No focal infiltrate to suggest acute cardiopulmonary disease. Electronically signed by: Jakob Burleson M.D. 12/19/2018 3:43 PM ECG Data Attestation: I personally reviewed and interpreted this ECG as follows: Indication: SOB/dyspnea Rate (beats per minute): 112 Rhythm: sinus tachycardia Findings: + other (Nml intervals and axis) and + T-wave inversion (High lateral leads) Comparison ECG Date: from (04/24/2018) Change: the following changes noted (TWI new) Blood Pressure Blood Pressure Findings: Elevated blood pressure Blood Pressure Disposition: further management by hospitalist LOUISE Narrative Patient was seen and evaluated the bedside. The patient did present in respiratory distress and was on a nonrebreather as the patient was in the 80s prior to arrival. The patient did receive some albuterol and duo nebs in route. The patient was subsequently started on an hour-long given mag fluids DuoNeb's along with blood work EKG chest x-ray. Patient did have a VBG with an elevated PCO2 and slightly lower pH at 76. The patient was placed on BiPAP. Patient does appear improved on the BiPAP. The patient to the markers are fairly unremarkable. Troponin is negative. Patient's chest x-ray does not show evidence of pneumonia. The patient was counseled on smoking cessation. The patient did have very trace elevations in inferior leads but not greater than 1 box to be considered a STEMI but the patient has negative troponin the patient does not complain of chest pain. I believe this is likely COPD. I discussed the case with the hospitalist and did relate that the troponins could continue to be trended. Patient was admitted to the medicine service. Impression & Plan COPD exacerbation, Hypoxia, Respiratory failure Critical Care Time Total Critical Care Time: 77 I have personally spent 77 minutes of critical care time in the direct management of this patient. This includes bedside care, interpretation of diagnostic studies, and testing, discussion with consultants, patient, and family members, and other required patient management activities. This 77 minutes is in excess of all separately billable procedures. Discharge Plan Visit Data Chief Complaint: Shortness of Breath/Dyspnea Stated Complaint: breathing diff. ED Provider: David Santoro Discharge Problem: COPD exacerbation, Hypoxia, Respiratory failure Patient Disposition: Being Evaluated by Hospitalist Forms Stand Alone Forms: My [facility] [place] Prescriptions Prescriptions: No Action fluticasone propion-salmeterol [Advair Diskus] 500-50 mcg/dose blister with device 1 puffs INH BID RF: 0 metoprolol succinate [Toprol XL] 25 mg tablet extended release 24 hr 25 mg PO DAILY RF: 0 ipratropium-albuterol 0.5 mg-3 mg(2.5 mg base)/3 mL solution for nebulization 3 ml INH QID PRN (Reason: shortness of breath or wheezing) RF: 0 albuterol sulfate 90 mcg/actuation HFA aerosol inhaler 1 - 2 puff INHALATION Q4H PRN (Reason: Shortness Of Breath) Qty: 18 RF: 1 atorvastatin 40 mg tablet 40 mg PO DAILY RF: 0 folic acid 400 mcg tablet 0.4 mg PO DAILY RF: 0 lisinopril 10 mg tablet 10 mg PO DAILY RF: 0 oxcarbazepine 300 mg tablet 300 mg PO BID RF: 0 vitamin B complex-folic acid 2,000 mcg capsule 1 cap PO DAILY RF: 0 venlafaxine 150 mg capsule,extended release 24hr 150 mg PO DAILY RF: 0 pregabalin 100 mg capsule 100 mg PO BID Qty: 60 RF: 0 metoprolol succinate 50 mg tablet extended release 24 hr 50 mg PO DAILY Qty: 30 RF: 0 gabapentin 100 mg capsule 300 mg PO TID PRN (Reason: ..) Qty: 180 RF: 0 Referrals Referrals: Russell Dang DO [Primary Care Provider] - Discharge Problem: Respiratory failure Qualifiers: Chronicity: unspecified Respiratory failure complication: unspecified whether with hypoxia or hypercapnia Qualified Code(s): J96.90 - Respiratory failure, unspecified, unspecified whether with hypoxia or hypercapnia The melinaibhamida's documentation has been prepared under my direction and personally reviewed by me in its entirety. I confirm that the note above accurately reflects all work, treatment, procedures, and medical decision making performed by me.
[2018-12-19] MEDS ORDERED: ACETAMINOPHEN 65 ML IV ONE (18:43)
[2018-12-19] MEDS ORDERED: LORazepam 1 MG TAB PO PRN (18:55)
[2018-12-19] MEDS ORDERED: ZOLPIDEM TARTRATE 5 MG TAB PO PRN (18:55)
[2018-12-19] MEDS ORDERED: ONDANSETRON INJ 2 MG/ML 2 ML VIAL IV PRN (18:55)
[2018-12-19] MEDS ORDERED: MAGNESIUM HYDROXIDE SUSP 30 ML UDC PO PRN (18:55)
[2018-12-19] MEDS ORDERED: NITROGLYCERIN SL 0.4 MG/TAB TAB SL PRN (18:55)
[2018-12-19] MEDS ORDERED: ACETAMINOPHEN 325 MG TAB PO PRN (18:55)
[2018-12-19] MEDS ORDERED: ALUMINUM/MAGNESIUM SUSP 30 ML UDC PO PRN (18:55)
[2018-12-19] MEDS ORDERED: chlordiazePOXIDE ALCOHOL WITHDRAWL 25MG PO STA (18:55)
[2018-12-19] MEDS ORDERED: POLYETHYLENE (MIRALAX) 17 GM PACK PO PRN (18:55)
[2018-12-19] MEDS ORDERED: GABAPENTIN 300 MG CAP PO PRN (19:04)
[2018-12-19] MEDS ORDERED: ALBUTEROL HFA 8 GM INHALER INH PRN (19:04)
--- NOTE | 2018-12-19 19:21 | History & Physical Report ---
Date of Service December 19, 2018 Assessment & Plan (1) COPD exacerbation: Plan Admit patient to telemetry Start patient on bronchodilators, Xopenex/Atrovent 0.63 inhalation nebulizer 4 times daily Start patient on steroids, Solu-Medrol 60 mg IV every 6 hours Chest imaging reviewed, showed some pulmonary congestion Pulmonary consultation if no improvement as needed Pepcid for GI prophylaxis Lovenox subcu for DVT prophylaxis Patient will need pulmonary function test in 6 weeks after resolution (2) Acute and chronic respiratory failure with hypercapnia: Required BiPAP for 3 hours Initial ABG showed a pH of 7.26 ABG and take him off BiPAP and put him on a nasal cannula was only O2 sat target of 93% not more, discussed with nursing staff (3) Alcohol withdrawal: Admit patient to telemetry Start patient on thiamine and folic acid supplement Ativan IV as needed withdrawal Tapering dose of chlordiazepoxide Will need referral to outpatient addiction medicine and AA (4) Tobacco abuse: currently said he quit smoking 2 months ago but he is asking for a nicotine patch will hold off ordering one as he has some chest pain (5) Essential hypertension: Continue lisinopril Currently fairly controlled History of Present Illness 67 years old man with past medical history of COPD, essential hypertension, dyslipidemia and alcohol abuse who was in his regular state of health until 3 days prior to admission when he started to develop shortness of breath and generalized wheezing. He also had some dry cough, but denies any sputum production. Denies any runny nose or fever. Patient has chronic respiratory failure secondary to the COPD with 3 L of oxygen at home. He has history of tobacco abuse, used to smoke half a pack a day, he is telling me now that he quit smoking 2 months ago but is asking for a nicotine patch. On arrival to the ED he was found to be in acute on chronic respiratory failure. VBG showed a pH of 7.26, PCO2 of 79. VBG PO2 was 31 He was placed on BiPAP and showed significant improvement. He will be admitted for further evaluation and management Chest x-ray did show COPD and possible some increased bronchovascular markings, may be underlying pulmonary congestion Aside from the shortness of breath he did complain of some chest pain, the left possibly pleuritic in nature. Primary Care Provider: Russell Dang, Allergies Allergy/AdvReac Type Severity Reaction Status Date / Time No Known Allergies Allergy Unverified 12/19/18 15:46 Home Medications Home Medications Medication Instructions Recorded Confirmed Type gabapentin 100 mg capsule 300 mg PO TID PRN #180 cap 11/19/18 12/19/18 History pregabalin 100 mg capsule 100 mg PO BID #60 cap 12/04/18 12/19/18 History fluticasone 500 mcg-salmeterol 50 1 puffs INH BID 12/06/18 12/19/18 History mcg/dose blistr powdr for inhalation ipratropium-albuterol 0.5 mg-3 3 ml INH QID PRN ml 12/06/18 12/19/18 History mg(2.5 mg base)/3 mL nebulization soln metoprolol succinate ER 25 mg 25 mg PO DAILY 12/06/18 12/19/18 History tablet,extended release 24 hr metoprolol succinate ER 50 mg 50 mg PO DAILY #30 tab 12/06/18 12/19/18 History tablet,extended release 24 hr albuterol sulfate HFA 90 1 - 2 puff INHALATION Q4H PRN #18 12/13/18 12/19/18 Rx mcg/actuation aerosol inhaler gm atorvastatin 40 mg tablet 40 mg PO DAILY 12/13/18 12/19/18 History folic acid 400 mcg tablet 0.4 mg PO DAILY 12/13/18 12/19/18 History lisinopril 10 mg tablet 10 mg PO DAILY 12/13/18 12/19/18 History oxcarbazepine 300 mg tablet 300 mg PO BID 12/13/18 12/19/18 History venlafaxine ER 150 mg 150 mg PO DAILY 12/13/18 12/19/18 History capsule,extended release 24 hr vitamin B complex-folic acid 2,000 1 cap PO DAILY 12/13/18 12/19/18 History mcg capsule Past Med/Surg History Medical History Face lacerations (Acute) Neuropathy (Chronic) Hypertension (Chronic) Alcohol abuse (Chronic) COPD (chronic obstructive pulmonary disease) (Chronic) Anemia (Acute) Tremor H/O tooth extraction Lower teeth on 04/23/2018 Hyperlipidemia Surgical History S/P foot surgery Family History Father Hypertension Aneurysm Mother Swelling Other No significant family history Social History Preferred Language: Bangladeshi Communication Ability: Impaired [employer]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: No Beliefs That Will Affect Care: None Current Living Situation: Spouse Feels Safe at Home: Yes Smoking Status: Current every day smoker Tobacco Type: cigarettes ; Cigarettes Per Day: 10 ; Second Hand Exposure: No ; Hx Alcohol Use: Yes Alcohol type: other Alcohol Intake Frequency Comment: 8+ per day Hx Substance Use: No Review of Systems Review of Systems: Review of system Constitutional: No fever / no chills / no sweats / no weakness / no fatigue Eyes: no blurring of vision / no eye pain / no discharge / no redness ENT: no hearing loss / no epistaxis /no swallowing problems Respiratory: Shortness of breath, significant wheezing, productive cough/dry cough / no hemoptysis Cardiovascular: Complained of some chest pain/ no lower extremity edema / no palpitation Abdomen: no pain / no nausea / no vomiting / no constipation Musculoskeletal: no joint pain / no muscle pain / no joint swelling Genitourinary: no dysuria / no incontinence / no urinary retention Neurologic: no focal weakness / no numbness/tingling / no ataxia Psychiatric: no depression symptoms / no anxiety / no insomnia Endocrine: no excessive thirst / no excessive urination Hematologic: no abnormal bleeding / no bruising / no LN swelling Skin: No rash / no pallor Physical Exam Physical Exam: Physical examination General patient appears to be comfortable, not in acute distress HEENT: Atraumatic , normocephalic /no jaundice /no pallor /anicteric /no dry mu cous membrane /normal external ear inspection Neck: Supple /no swelling /central trach Heart: S1/S2 normal/regular rate and rhythm/no gallop /no rub /no murmur Lungs: Decreased air entry bilaterally, generalized wheezing both lung wong, scattered rhonchi, no chest wall tenderness Abdomen: Soft/nontender/no guarding/no rebound/no organomegaly/no pulsatile mass Musculoskeletal: No swelling/no edema/no tenderness/normal range of motion Neuro exam: Awake alert oriented 3/cranial nerves II through XII appear to be intact/sensation intact/moves all extremities/no abnormal movements Psychiatric evaluation: No depressed mood/normal affect Skin: No rash on exposed skin area/no erythema Extremity: Normal pulse/no pitting edema/no clubbing or cyanosis Endocrine/lymphatic: No obvious lymphadenopathy /no lymphedema Results & Data Vital Signs (Past 12 Hours) Vital Signs Temp Pulse Pulse Resp BP BP Pulse Ox 12/19/18 19:17 110 H 18 140/87 95 12/19/18 18:50 107 H 24 97 12/19/18 18:00 108 H 20 140/93 94 12/19/18 16:30 111 H 17 140/95 94 12/19/18 16:24 108 H 15 149/96 H 100 12/19/18 16:18 112 H 19 99 12/19/18 15:29 111 H 18 146/96 H 100 12/19/18 15:24 117 H 18 98 12/19/18 14:45 100 12/19/18 14:44 84 L 12/19/18 14:34 36.8 C 110 H 22 156/98 H 100 Code Status & VTE Plan VTE Prophylaxis Plan VTE Prophylaxis will be ordered: Yes PG Care Time/CCT Total # of Minutes Spent Total Time Spent with Patient: 35 minutes total time spent is greater than 50% in coordination of care (as documented) at patient's floor/unit and/or counseling patient/family discussion of care with nursing staff (1) Alcohol withdrawal Complication of substance-induced condition: with delirium Qualified Code(s): F10.231 - Alcohol dependence with withdrawal delirium
[2018-12-19] MEDS: chlordiazePOXIDE HCl 25 MG CAP PO SCH (20:44)
[2018-12-19] MEDS: PREGABALIN 100 MG CAP PO SCH (20:45)
[2018-12-19] MEDS: FLUTICASONE/SALMETEROL (ADVAIR) 500/50 INH 14 PUFF INH SCH (20:45)
[2018-12-19] MEDS: FUROSEMIDE 20 MG in SYRINGE 0 ML IV SCH (20:45)
[2018-12-19] MEDS: OXcarbazepine 150 MG TABLET PO SCH (20:46)
[2018-12-19] MEDS: ASPIRIN 81 MG ECTAB PO SCH (20:47)
[2018-12-19] MEDS: ENOXAPARIN INJ 40 MG/0.4 ML SYR SQ SCH (20:49)
[2018-12-19] MEDS: GABAPENTIN 100 MG CAP PO SCH (21:09)
[2018-12-19] MEDS: methylPREDNISolone 40 MG in SYRINGE 0 ML IV SCH (21:10)
[2018-12-19 22:16] LABS: Base Excess ABG 5.4 mEq/L (-9-1.8); HCO3 ABG 31 mmol/L (19-24); Oxygen Saturation ABG 96.9 % (90-95); PCO2 ABG 48 mmHg (35-46); PO2 ABG 87 mm/Hg (80-95); pH ABG 7.43 (7.35-7.45)
[2018-12-19 22:17] LABS: Allen Test Pos (Pos)
[2018-12-20 01:02] LABS: Hemoglobin 13.3 g/dL (14.0-18.0); Immature Granulocytes # (auto) 0.01 K/uL (0.00-0.02); Immature Granulocytes % (auto) 0.1 %; Lymphocytes # (auto) 0.51 K/uL (1.2-3.4); Lymphocytes % (auto) 7.2 %; Mean Corpuscular Hemoglobin 32.4 pg (25-34); Mean Corpuscular Hgb Conc 33.3 g/dL (32-36); Mean Corpuscular Volume 97.6 fL (80-100); Monocytes # (auto) 0.11 K/uL (0.11-0.59); Monocytes % (auto) 1.6 %; Neutrophils # (auto) 6.44 K/uL (1.4-6.5); Neutrophils % (auto) 91.1 %; Platelet Count 196 K/uL (130-400); RDW Standard Deviation 50.2 fL (36.4-46.3); White Blood Count 7.07 K/uL (4.8-10.8)
[2018-12-20 01:21] LABS: Albumin Level 3.2 gm/dl (3.4-5.0); BUN Creatinine Ratio 11.8 (10-20); Calcium 8.3 mg/dl (8.5-10.1); Creatinine Clr Calc Pharmacy 83.7 ml/min; Est GFR (African American) 105.7; Est GFR (Non-African American) 91.2; Magnesium 2.2 mg/dl (1.8-2.4); Potassium 4.2 mmol/L (3.5-5.1)
[2018-12-20 01:25] LABS: Albumin Globulin Ratio 0.9 (0.9-2); Bilirubin,Total 0.3 mg/dl (0.2-1); Globulin 3.7 gm/dl (2.5-4.0); Total Protein 6.9 gm/dl (6.4-8.2)
[2018-12-20] MEDS: chlordiazePOXIDE HCl 25 MG CAP PO SCH ×4 (01:42→21:08)
[2018-12-20] MEDS ORDERED: PNEUMOCOCCAL POLYSACCHARIDES 25 MCG/0.5 ML VIAL/SYR IM ONE (03:30)
[2018-12-20] MEDS ORDERED: PNEUMOCOCCAL ADMINISTRATION CHARGE ONE (03:30)
[2018-12-20] MEDS: methylPREDNISolone 40 MG in SYRINGE 0 ML IV SCH ×3 (04:48→21:19)
[2018-12-20] MEDS: BUDESONIDE 0.5 MG/2 ML VIAL (PULMICORT) NEB SCH ×2 (08:30→20:13)
[2018-12-20] MEDS ORDERED: levoFLOXacin 750 MG TAB PO SCH (09:00)
[2018-12-20] MEDS: FOLIC ACID 1 MG TAB PO SCH (09:41)
[2018-12-20] MEDS: VITAMIN B COMPLEX TAB PO SCH (09:41)
[2018-12-20] MEDS: METOPROLOL SUCC 25MG EXT REL TAB PO SCH (09:41)
[2018-12-20] MEDS: THIAMINE HCL 100 MG TAB PO SCH (09:42)
[2018-12-20] MEDS: OXcarbazepine 150 MG TABLET PO SCH ×2 (09:42→21:19)
[2018-12-20] MEDS: ATORVASTATIN 40 MG TAB PO SCH (09:42)
[2018-12-20] MEDS: VENLAFAXINE HCL XR 150 MG CAPXR PO SCH (09:42)
[2018-12-20] MEDS: ASPIRIN 81 MG ECTAB PO SCH (09:42)
[2018-12-20] MEDS: FOLIC ACID 400 MCG TAB PO SCH (09:42)
[2018-12-20] MEDS: METOPROLOL SUCC 50MG EXT REL TAB PO SCH (09:42)
[2018-12-20] MEDS: lisinopriL 10 MG TAB PO SCH (09:43)
[2018-12-20] MEDS: FUROSEMIDE 20 MG in SYRINGE 0 ML IV SCH ×2 (09:43→21:16)
[2018-12-20] MEDS: FLUTICASONE/SALMETEROL (ADVAIR) 500/50 INH 14 PUFF INH SCH ×2 (09:44→21:09)
[2018-12-20] MEDS: GABAPENTIN 100 MG CAP PO SCH ×3 (09:45→21:18)
[2018-12-20] MEDS: PREGABALIN 100 MG CAP PO SCH ×2 (10:04→21:23)
--- NOTE | 2018-12-20 19:26 | Hospitalist Progress Note ---
Date of Service December 20, 2018 Assessment & Plan (1) COPD exacerbation: some improvement today still with wheezing today and increased work of breathing will continue Solu Medrol but at 40mg IV q12 add Levaquin 750mg daily Albuterol nebs QID continue home inhalers no evidence of pneumonia or PE on imaging (2) Acute and chronic respiratory failure with hypercapnia: Required BiPAP for 3 hours Initial ABG showed a pH of 7.26 ABG normalized breathing comfortably off the BIPAP still with hypoxia (3) Alcohol withdrawal: continue telemetry thiamine and folic acid supplement Ativan IV as needed withdrawal Tapering dose of chlordiazepoxide no tremors, has some tachycardia but otherwise stable will educate patient on importance of cutting back/abstaining from alcohol (4) Tobacco abuse: will provide with nicotine patch (5) Essential hypertension: Continue lisinopril BP stable (6) UTI (urinary tract infection): > 30 WBC on UA urine culture pending patient admits to dysuria treat with Levaquin, follow up culture (7) Tachycardia: sinus tachycardia on monitor, confirmed on 12 lead EKG multiple reasons for tachycardia including hypoxia, alcohol withdrawal, anxiety, albuterol continue on monitor Subjective patient still with increased work of breathing, wheezing, cough with some sputum admits that he was having dysuria prior to admission, UA with > 30WBC, follow up urine culture he says that he drinks 4 beers a night, 6-8 on the weekends he denies any tremors or signs of withdrawal tachycardic on the monitor all day, rates 110-150 at times checked EKG, sinus tach, no arrhythmia echocardiogram shows preserved EF, grade I diastolic dysfunction reviewed labs from admission reviewed chart updated patient's family at the bedside Review of Systems Review of Systems: All systems reviewed & are unremarkable except as noted in HPI & below Constitutional: + fatigue and + weakness; no fever and no chills Respiratory: + cough, + chest congestion, + dyspnea, + dyspnea on exertion and + wheezing; no hemoptysis Cardiovascular: + dyspnea and + dyspnea on exertion; no chest pain, no palpitations and no edema Gastrointestinal: no abdominal pain, no nausea, no vomiting, no constipation and no diarrhea/loose stools Genitourinary: + dysuria Physical Exam Constitutional: WD/WN, vitals as above no acute distress Eyes: PERRL, conjunctivae normal, anicteric sclerae ENMT: external ear and nose normal, oropharynx normal Neck: trachea midline, no thyromegaly Respiratory: + labored breathing, + cough and + nasal flaring Auscultation: + wheezes (expiratory, bilaterally); no crackles and no rhonchi Cardiovascular: Rate/Rhythm: regular rhythm and + tachycardic Heart Sounds: normal S1 and normal S2; no murmur Vessels: no JVD Extremities: normal capillary refill and + edema (slight, non-pitting bilaterally) Gastrointestinal (Abdomen): normal bowel sounds, soft, nontender, no hepatosplenomegaly Musculoskeletal: no cyanosis or clubbing, extremities motor strength 5/5 Skin: no rashes, warm and dry Neurologic: patellar DTR's 2+ bilat, sensation intact and PERRL, EOMI, accommodation nl, no face palsy, no dysarthria Psychiatric: A+Ox3, euthymic affect Lymphatic: no cervical or axillary lymphadenopathy Results & Data Vital Signs (Past 12 Hours) Vital Signs Temp Pulse Pulse Resp BP Pulse Ox 12/20/18 16:00 114 H 12/20/18 15:08 37.0 C 111 H 20 126/83 98 12/20/18 11:03 36.8 C 108 H 24 112/80 95 12/20/18 08:31 86 20 90 Laboratory Results Laboratory Results - last 24 hr 12/19/18 12/19/18 12/19/18 15:21 19:36 19:36 WBC RBC Hgb Hct MCV MCH MCHC RDW Std Deviation RDW Coeff of Jem Plt Count MPV Immature Gran % (Auto) Neut % (Auto) Lymph % (Auto) [place] % (Auto) Eos % (Auto) Baso % (Auto) Immature Gran # (Auto) Neut # (Auto) Lymph # (Auto) [place] # (Auto) Eos # (Auto) Baso # (Auto) ABG pH ABG pCO2 ABG pO2 ABG HCO3 ABG O2 Saturation ABG Base Excess Chris Test Barometric Pressure Oxygen Given Sodium Potassium Chloride Carbon Dioxide Anion Gap BUN Creatinine Est Cr Clr Drug Dosing Est GFR ( Amer) Est GFR (Non-Af Amer) BUN/Creatinine Ratio Glucose POC Glucose Calcium Magnesium Total Bilirubin AST ALT Alkaline Phosphatase Troponin I < 0.015 Total Protein Albumin Globulin Albumin/Globulin Ratio Triglycerides Cholesterol LDL Cholesterol, Calc VLDL Cholesterol, Calc HDL Cholesterol Cholesterol/HDL Ratio Folate > 24.00 Hepatitis C Ab Screen Neg 12/19/18 12/19/18 12/20/18 19:36 22:03 00:52 WBC RBC Hgb Hct MCV MCH MCHC RDW Std Deviation RDW Coeff of Jem Plt Count MPV Immature Gran % (Auto) Neut % (Auto) Lymph % (Auto) [place] % (Auto) Eos % (Auto) Baso % (Auto) Immature Gran # (Auto) Neut # (Auto) Lymph # (Auto) [place] # (Auto) Eos # (Auto) Baso # (Auto) ABG pH 7.44 7.43 ABG pCO2 48 H ABG pO2 87 ABG HCO3 31 H ABG O2 Saturation 96.9 H ABG Base Excess 5.4 H Chris Test Pos Barometric Pressure 738.7 Oxygen Given 3 Sodium Potassium Chloride Carbon Dioxide Anion Gap BUN Creatinine Est Cr Clr Drug Dosing Est GFR ( Amer) Est GFR (Non-Af Amer) BUN/Creatinine Ratio Glucose POC Glucose Calcium Magnesium Total Bilirubin AST ALT Alkaline Phosphatase Troponin I < 0.015 Total Protein Albumin Globulin Albumin/Globulin Ratio Triglycerides Cholesterol LDL Cholesterol, Calc VLDL Cholesterol, Calc HDL Cholesterol Cholesterol/HDL Ratio Folate Hepatitis C Ab Screen 12/20/18 12/20/18 12/20/18 00:52 00:52 07:00 WBC 7.07 RBC 4.10 L Hgb 13.3 L Hct 40.0 L MCV 97.6 MCH 32.4 MCHC 33.3 RDW Std Deviation 50.2 H RDW Coeff of Jem 14.0 Plt Count 196 MPV 9.0 Immature Gran % (Auto) 0.1 Neut % (Auto) 91.1 Lymph % (Auto) 7.2 [place] % (Auto) 1.6 Eos % (Auto) 0.0 Baso % (Auto) 0.0 Immature Gran # (Auto) 0.01 Neut # (Auto) 6.44 Lymph # (Auto) 0.51 L [place] # (Auto) 0.11 Eos # (Auto) 0.00 Baso # (Auto) 0.00 ABG pH ABG pCO2 ABG pO2 ABG HCO3 ABG O2 Saturation ABG Base Excess Chris Test Barometric Pressure Oxygen Given Sodium 133 L Potassium 4.2 Chloride 94 L Carbon Dioxide 34 H Anion Gap 5.0 BUN 10 Creatinine 0.84 Est Cr Clr Drug Dosing 83.7 Est GFR ( Amer) 105.7 Est GFR (Non-Af Amer) 91.2 BUN/Creatinine Ratio 11.8 Glucose 143 H POC Glucose Calcium 8.3 L Magnesium 2.2 Total Bilirubin 0.3 AST 26 ALT 32 Alkaline Phosphatase 89 Troponin I < 0.015 Total Protein 6.9 Albumin 3.2 L Globulin 3.7 Albumin/Globulin Ratio 0.9 Triglycerides 65 Cholesterol 124 LDL Cholesterol, Calc 37 VLDL Cholesterol, Calc 13 HDL Cholesterol 74 Cholesterol/HDL Ratio 2 Folate Hepatitis C Ab Screen 12/20/18 12/20/18 12/20/18 07:03 11:30 18:55 WBC RBC Hgb Hct MCV MCH MCHC RDW Std Deviation RDW Coeff of Jem Plt Count MPV Immature Gran % (Auto) Neut % (Auto) Lymph % (Auto) [place] % (Auto) Eos % (Auto) Baso % (Auto) Immature Gran # (Auto) Neut # (Auto) Lymph # (Auto) [place] # (Auto) Eos # (Auto) Baso # (Auto) ABG pH ABG pCO2 ABG pO2 ABG HCO3 ABG O2 Saturation ABG Base Excess Chris Test Barometric Pressure Oxygen Given Sodium Potassium Chloride Carbon Dioxide Anion Gap BUN Creatinine Est Cr Clr Drug Dosing Est GFR ( Amer) Est GFR (Non-Af Amer) BUN/Creatinine Ratio Glucose POC Glucose 123 H 98 Calcium Magnesium Total Bilirubin AST ALT Alkaline Phosphatase Troponin I Pending Total Protein Albumin Globulin Albumin/Globulin Ratio Triglycerides Cholesterol LDL Cholesterol, Calc VLDL Cholesterol, Calc HDL Cholesterol Cholesterol/HDL Ratio Folate Hepatitis C Ab Screen Medications Administered Current Inpatient Medications Acetaminophen (Tylenol) 650 mg PO Q4H PRN PRN Reason: Pain or Fever Stop: 01/18/19 18:54 Last Admin: 12/20/18 04:55 Dose: 650 mg Documented by: Al Hydrox/Mg Hydrox/Simethicone (Maalox) 15 ml PO Q4H PRN PRN Reason: Dyspepsia Stop: 01/18/19 18:54 Albuterol (Duoneb) 3 ml INH QID PRN PRN Reason: shortness of breath or wheezing Stop: 01/18/19 19:03 Albuterol (Ventolin Hfa) 1 - 2 puffs INH Q4H PRN PRN Reason: Short Of Breath/Wheezing Stop: 01/18/19 19:03 Aspirin (Ecotrin Ectab) 81 mg PO QAM [facility] Stop: 01/18/19 18:59 Last Admin: 12/20/18 09:42 Dose: 81 mg Documented by: Atorvastatin Calcium (Lipitor) 40 mg PO DAILY [facility] Stop: 01/19/19 08:59 Last Admin: 12/20/18 09:42 Dose: 40 mg Documented by: Budesonide (Pulmicort Respules) 0.5 mg NEB BIDR [facility] Stop: 01/19/19 06:59 Last Admin: 12/20/18 08:30 Dose: 0.5 mg Documented by: Chlordiazepoxide HCl (Librium) 5 mg PO Q12H [facility] Stop: 12/23/18 12:02 Chlordiazepoxide HCl (Librium) 10 mg PO Q8H [facility] Stop: 12/22/18 12:01 Chlordiazepoxide HCl (Librium) 25 mg PO Q6H [facility]; Taper Stop: 12/21/18 19:59 Last Admin: 12/20/18 14:23 Dose: 25 mg Documented by: Enoxaparin Sodium (Lovenox) 40 mg SQ Q24H [facility] Stop: 01/18/19 20:59 Last Admin: 12/19/18 20:49 Dose: Not Given Documented by: Folic Acid (Folvite) 1 mg PO QAM [facility] Stop: 01/19/19 08:59 Last Admin: 12/20/18 09:41 Dose: 1 mg Documented by: Folic Acid (Folvite) 400 mcg PO DAILY [facility] Stop: 01/19/19 08:59 Last Admin: 12/20/18 09:42 Dose: 400 mcg Documented by: Gabapentin (Neurontin) 200 mg PO TID [facility] Stop: 01/18/19 20:59 Last Admin: 12/20/18 14:23 Dose: 200 mg Documented by: Furosemide 20 mg/ Syringe 2 mls @ 4 mls/min IV Q12H [facility] Stop: 01/18/19 20:59 Last Admin: 12/20/18 09:43 Dose: 4 mls/min Documented by: Methylprednisolone 40 mg/ (Syringe) 0.64 mls @ 1.5 mls/min IV Q12 [facility] Stop: 01/19/19 20:59 Levofloxacin (Levaquin) 750 mg PO DAILY@1100 [facility]; Protocol Stop: 12/30/18 08:59 Last Admin: 12/20/18 09:45 Dose: 750 mg Documented by: Lisinopril (Zestril) 10 mg PO DAILY [facility] Stop: 01/19/19 08:59 Last Admin: 12/20/18 09:43 Dose: 10 mg Documented by: Lorazepam (Ativan) 1 - 3 mg PO UD PRN; Protocol PRN Reason: EtoH Withdrawal AWSS 6-10+ Stop: 01/18/19 18:54 Magnesium Hydroxide (Milk Of Magnesia) 30 ml PO Q12H PRN PRN Reason: Constipation Stop: 01/18/19 18:54 Metoprolol Succinate (Toprol Xl) 25 mg PO DAILY [facility] Stop: 01/19/19 08:59 Last Admin: 12/20/18 09:41 Dose: 25 mg Documented by: Metoprolol Succinate (Toprol Xl) 50 mg PO DAILY [facility] Stop: 01/19/19 08:59 Last Admin: 12/20/18 09:42 Dose: 50 mg Documented by: Nitroglycerin (Nitrostat) 0.4 mg SL UD PRN PRN Reason: Chest Pain Stop: 01/18/19 18:54 Ondansetron HCl (Zofran) 4 mg IV Q6H PRN PRN Reason: Nausea Stop: 01/18/19 18:54 Oxcarbazepine (Trileptal) 300 mg PO BID [facility] Stop: 01/18/19 20:59 Last Admin: 12/20/18 09:42 Dose: 300 mg Documented by: Polyethylene Glycol (Miralax Powder Packet) 17 gm PO DAILY PRN PRN Reason: Constipation Stop: 01/18/19 18:54 Pregabalin (Lyrica) 100 mg PO BID [facility] Stop: 01/18/19 20:59 Last Admin: 12/20/18 10:04 Dose: 100 mg Documented by: Fluticasone/Salmeterol (Advair Diskus 500/50) 1 puffs INH BID [facility] Stop: 01/18/19 20:59 Last Admin: 12/20/18 09:44 Dose: 1 puffs Documented by: Thiamine HCl (Vitamin B-1) 100 mg PO QAM [facility] Stop: 01/19/19 08:59 Last Admin: 12/20/18 09:42 Dose: 100 mg Documented by: Venlafaxine HCl (Effexor Extended Release) 150 mg PO DAILY [facility] Stop: 01/19/19 08:59 Last Admin: 12/20/18 09:42 Dose: 150 mg Documented by: Vitamin B Complex (Vitamin B Complex) 1 tab PO DAILY [facility] Stop: 01/19/19 08:59 Last Admin: 12/20/18 09:41 Dose: 1 tab Documented by: Zolpidem Tartrate (Ambien) 5 mg PO HS PRN PRN Reason: Sleep Stop: 01/18/19 18:54 PG Care Time/CCT Total # of Minutes Spent Total Time Spent with Patient: Total time spent is greater than 50% in coordination of care (as documented) at patient's floor/unit and/or counseling patient: (1) Alcohol withdrawal Complication of substance-induced condition: with delirium Qualified Code(s): F10.231 - Alcohol dependence with withdrawal delirium
[2018-12-20] MEDS: ENOXAPARIN INJ 40 MG/0.4 ML SYR SQ SCH (21:16)
[2018-12-21] MEDS: chlordiazePOXIDE HCl 25 MG CAP PO SCH ×2 (04:02→12:03)
[2018-12-21] MEDS: BUDESONIDE 0.5 MG/2 ML VIAL (PULMICORT) NEB SCH ×2 (07:16→19:14)
[2018-12-21] MEDS: NICOTINE 7 MG/24 HR TDSY TD SCH (08:51)
[2018-12-21] MEDS: PREGABALIN 100 MG CAP PO SCH ×2 (08:52→19:46)
[2018-12-21] MEDS: AMOXICILLIN/CLAVULANATE 875 MG TAB PO SCH ×2 (08:52→17:48)
[2018-12-21] MEDS: methylPREDNISolone 40 MG in SYRINGE 0 ML IV SCH ×2 (08:52→19:55)
[2018-12-21] MEDS: FOLIC ACID 400 MCG TAB PO SCH (08:53)
[2018-12-21] MEDS: VENLAFAXINE HCL XR 150 MG CAPXR PO SCH (08:53)
[2018-12-21] MEDS: OXcarbazepine 150 MG TABLET PO SCH ×2 (08:53→19:56)
[2018-12-21] MEDS: VITAMIN B COMPLEX TAB PO SCH (08:54)
[2018-12-21] MEDS: ATORVASTATIN 40 MG TAB PO SCH (08:54)
[2018-12-21] MEDS: THIAMINE HCL 100 MG TAB PO SCH (08:54)
[2018-12-21] MEDS: METOPROLOL SUCC 25MG EXT REL TAB PO SCH (08:55)
[2018-12-21] MEDS: METOPROLOL SUCC 50MG EXT REL TAB PO SCH (08:55)
[2018-12-21] MEDS: GABAPENTIN 100 MG CAP PO SCH ×3 (08:57→19:54)
[2018-12-21] MEDS: ASPIRIN 81 MG ECTAB PO SCH (08:58)
[2018-12-21] MEDS: FOLIC ACID 1 MG TAB PO SCH (08:58)
[2018-12-21] MEDS: lisinopriL 10 MG TAB PO SCH (08:59)
[2018-12-21] MEDS: FLUTICASONE/SALMETEROL (ADVAIR) 500/50 INH 14 PUFF INH SCH ×2 (08:59→19:54)
[2018-12-21] MEDS ORDERED: SUMAtriptan succinate 50 MG TAB PO ONE (09:30)
--- NOTE | 2018-12-21 12:43 | Hospitalist Progress Note ---
Date of Service December 21, 2018 Assessment & Plan (1) COPD exacerbation: more improvement today, less labored breathing, appears much more comfortable still with wheezing but less overall more prominent posteriorly will continue Solu Medrol but at 40mg IV q12 today, change to Prednisone 50mg daily tomorrow AM change the Levaquin to Augmentin due to urine culture coverage Albuterol nebs QID continue home inhalers no evidence of pneumonia or PE on imaging transfer to medical floor (2) Acute and chronic respiratory failure with hypercapnia: Required BiPAP for 3 hours on admission Initial ABG showed a pH of 7.26 ABG normalized breathing comfortably off the BIPAP on 4L NC and he says he wears that at home acute respiratory failure resolved (3) Alcohol withdrawal: can transfer to medical floor thiamine and folic acid supplement Ativan IV as needed withdrawal, none needed thus far Tapering dose of chlordiazepoxide no tremors, tachycardia resolved will educate patient on importance of cutting back/abstaining from alcohol (4) Tobacco abuse: will provide with nicotine patch (5) Essential hypertension: Continue lisinopril BP stable (6) UTI (urinary tract infection): > 30 WBC on UA urine culture growing alpha strep, not enterococcus will treat with Augmentin BID patient admits to dysuria (7) Tachycardia: sinus tachycardia on monitor, confirmed on 12 lead EKG resolved today, less distress transfer to medical floor (8) Hematuria: c/o hematuria for 3-4 weeks, coca cola colored associated with post void dribbling, incontinence, dysuria, no flank pain this is a new problem for him will repeat UA, first UA had +1 blood and 5-[address] with and without contrast of abdomen/pelvis to look for stones as well as look at the bladder consult urology, routine discussed with patient that he may need a cystoscopy as outpatient Subjective patient says he is breathing better today, certainly less distress his HR is better on the monitor, running 60-80bpm today less coughing, no sputum production this AM after he urinated he noticed some bright red blood at the end of voiding he said that his urine looked like coca cola he said in hindsight he has had dark urine for the past 3-4 weeks and has been experiencing some incontinence asked if he ever had those problems before and he said no he has seen a urologist before but it was a long time ago reviewed labs, glucose normal and trop < 0.015 urine culture growing Alpha strep, not enterococcus Review of Systems Review of Systems: All systems reviewed & are unremarkable except as noted in HPI & below Respiratory: + cough, + dyspnea and + wheezing; no pain with cough and no sputum production Cardiovascular: no chest pain and no edema Genitourinary: + dysuria, + difficulty urinating, + urinary incontinence, + post-void dribbling and + hematuria; no flank pain Physical Exam Constitutional: WD/WN, vitals as above no acute distress Eyes: PERRL, conjunctivae normal, anicteric sclerae ENMT: external ear and nose normal, oropharynx normal Neck: trachea midline, no thyromegaly Respiratory: normal respiratory effort; no respiratory distress Auscultation: + wheezes (expiratory, bilaterally, more prominent posteriorly); no crackles and no rhonchi Cardiovascular: Rate/Rhythm: regular rhythm and + tachycardic Heart Sounds: normal S1 and normal S2; no murmur Vessels: no JVD Extremities: normal capillary refill and + edema (slight, non-pitting bilaterally) Gastrointestinal (Abdomen): normal bowel sounds, soft, nontender, no hepatosplenomegaly Musculoskeletal: no cyanosis or clubbing, extremities motor strength 5/5 Skin: no rashes, warm and dry Neurologic: patellar DTR's 2+ bilat, sensation intact and PERRL, EOMI, accommodation nl, no face palsy, no dysarthria Psychiatric: A+Ox3, euthymic affect Lymphatic: no cervical or axillary lymphadenopathy Results & Data Vital Signs (Past 12 Hours) Vital Signs Temp Pulse Resp BP Pulse Ox 12/21/18 11:08 36.3 C L 88 22 112/76 94 12/21/18 07:25 36.4 C L 69 20 130/87 97 12/21/18 07:16 65 18 97 12/21/18 03:28 36.7 C 88 20 111/71 90 Laboratory Results Laboratory Results - last 24 hr 12/20/18 12/21/18 18:55 11:38 POC Glucose 95 Troponin I < 0.015 Medications Administered Current Inpatient Medications Acetaminophen (Tylenol) 650 mg PO Q4H PRN PRN Reason: Pain or Fever Stop: 01/18/19 18:54 Last Admin: 12/20/18 04:55 Dose: 650 mg Documented by: Al Hydrox/Mg Hydrox/Simethicone (Maalox) 15 ml PO Q4H PRN PRN Reason: Dyspepsia Stop: 01/18/19 18:54 Albuterol (Duoneb) 3 ml INH QID PRN PRN Reason: shortness of breath or wheezing Stop: 01/18/19 19:03 Albuterol (Ventolin Hfa) 1 - 2 puffs INH Q4H PRN PRN Reason: Short Of Breath/Wheezing Stop: 01/18/19 19:03 Amoxicillin/Clavulanate Potassium (Augmentin 875mg) 1 tab PO BIDM [facility]; Protocol Stop: 12/31/18 07:59 Last Admin: 12/21/18 08:52 Dose: 1 tab Documented by: Aspirin (Ecotrin Ectab) 81 mg PO QAM [facility] Stop: 01/18/19 18:59 Last Admin: 12/21/18 08:58 Dose: 81 mg Documented by: Atorvastatin Calcium (Lipitor) 40 mg PO DAILY [facility] Stop: 01/19/19 08:59 Last Admin: 12/21/18 08:54 Dose: 40 mg Documented by: Budesonide (Pulmicort Respules) 0.5 mg NEB BIDR [facility] Stop: 01/19/19 06:59 Last Admin: 12/21/18 07:16 Dose: 0.5 mg Documented by: Chlordiazepoxide HCl (Librium) 5 mg PO Q12H [facility] Stop: 12/23/18 12:02 Chlordiazepoxide HCl (Librium) 10 mg PO Q8H [facility] Stop: 12/22/18 12:01 Chlordiazepoxide HCl (Librium) 25 mg PO Q8H [facility]; Taper Stop: 12/21/18 19:59 Last Admin: 12/21/18 12:03 Dose: 25 mg Documented by: Enoxaparin Sodium (Lovenox) 40 mg SQ Q24H [facility] Stop: 01/18/19 20:59 Last Admin: 12/20/18 21:16 Dose: 40 mg Documented by: Folic Acid (Folvite) 1 mg PO QAM [facility] Stop: 01/19/19 08:59 Last Admin: 12/21/18 08:58 Dose: 1 mg Documented by: Folic Acid (Folvite) 400 mcg PO DAILY [facility] Stop: 01/19/19 08:59 Last Admin: 12/21/18 08:53 Dose: 400 mcg Documented by: Gabapentin (Neurontin) 200 mg PO TID [facility] Stop: 01/18/19 20:59 Last Admin: 12/21/18 08:57 Dose: 200 mg Documented by: Methylprednisolone 40 mg/ (Syringe) 0.64 mls @ 1.5 mls/min IV Q12 [facility] Stop: 12/21/18 23:59 Last Admin: 12/21/18 08:52 Dose: 1.5 mls/min Documented by: Lisinopril (Zestril) 10 mg PO DAILY [facility] Stop: 01/19/19 08:59 Last Admin: 12/21/18 08:59 Dose: 10 mg Documented by: Lorazepam (Ativan) 1 - 3 mg PO UD PRN; Protocol PRN Reason: EtoH Withdrawal AWSS 6-10+ Stop: 01/18/19 18:54 Magnesium Hydroxide (Milk Of Magnesia) 30 ml PO Q12H PRN PRN Reason: Constipation Stop: 01/18/19 18:54 Metoprolol Succinate (Toprol Xl) 25 mg PO DAILY [facility] Stop: 01/19/19 08:59 Last Admin: 12/21/18 08:55 Dose: 25 mg Documented by: Metoprolol Succinate (Toprol Xl) 50 mg PO DAILY [facility] Stop: 01/19/19 08:59 Last Admin: 12/21/18 08:55 Dose: 50 mg Documented by: Miscellaneous (Remove Nicoderm Patch) 1 ea N/A HS [facility] Stop: 01/20/19 20:59 Nicotine (Nicoderm Cq) 7 mg TD QAM [facility] Stop: 01/20/19 08:59 Last Admin: 12/21/18 08:51 Dose: 7 mg Documented by: Nitroglycerin (Nitrostat) 0.4 mg SL UD PRN PRN Reason: Chest Pain Stop: 01/18/19 18:54 Ondansetron HCl (Zofran) 4 mg IV Q6H PRN PRN Reason: Nausea Stop: 01/18/19 18:54 Oxcarbazepine (Trileptal) 300 mg PO BID [facility] Stop: 01/18/19 20:59 Last Admin: 12/21/18 08:53 Dose: 300 mg Documented by: Polyethylene Glycol (Miralax Powder Packet) 17 gm PO DAILY PRN PRN Reason: Constipation Stop: 01/18/19 18:54 Prednisone (Prednisone) 50 mg PO QAM [facility] Stop: 01/21/19 08:59 Pregabalin (Lyrica) 100 mg PO BID [facility] Stop: 01/18/19 20:59 Last Admin: 12/21/18 08:52 Dose: 100 mg Documented by: Fluticasone/Salmeterol (Advair Diskus 500/50) 1 puffs INH BID [facility] Stop: 01/18/19 20:59 Last Admin: 12/21/18 08:59 Dose: 1 puffs Documented by: Thiamine HCl (Vitamin B-1) 100 mg PO QAM [facility] Stop: 01/19/19 08:59 Last Admin: 12/21/18 08:54 Dose: 100 mg Documented by: Venlafaxine HCl (Effexor Extended Release) 150 mg PO DAILY [facility] Stop: 01/19/19 08:59 Last Admin: 12/21/18 08:53 Dose: 150 mg Documented by: Vitamin B Complex (Vitamin B Complex) 1 tab PO DAILY [facility] Stop: 01/19/19 08:59 Last Admin: 12/21/18 08:54 Dose: 1 tab Documented by: Zolpidem Tartrate (Ambien) 5 mg PO HS PRN PRN Reason: Sleep Stop: 01/18/19 18:54 PG Care Time/CCT Total # of Minutes Spent Total Time Spent with Patient: Total time spent is greater than 50% in coordination of care (as documented) at patient's floor/unit and/or counseling patient: (1) Alcohol withdrawal Complication of substance-induced condition: with delirium Qualified Code(s): F10.231 - Alcohol dependence with withdrawal delirium
[2018-12-21 14:51] LABS: Appearance Urine Clear (Clear); Bilirubin Urine Negative (Negative); Blood Urine Trace (Negative); Color Urine Yellow; Glucose Urine UA Negative (Negative); Ketones Urine Negative (Negative); Leukocyte Esterase Urine 2+ (Negative); Nitrite Urine Negative (Negative); Protein Urine Negative (Negative); RBC Urine Automated 0-4 /hpf (0-4); Specific Gravity Urine 1.018 (1.000-1.030); Urobilinogen Urine Negative (Negative); WBC Urine Automated >30 /hpf (0-5)
[2018-12-21 15:03] LABS: Bacteria Urine Automated 1+ (Negative)
[2018-12-21] MEDS ORDERED: IOVERSOL 100ml IV PRN (15:23)
--- NOTE | 2018-12-21 15:49 | CT Scan Report ---
ABDOMEN AND PELVIS CT WITH AND WITHOUT IV CONTRAST, UROGRAM PROTOCOL CT DOSE: 1612.90 mGycm HISTORY: Hematuria x 4 weeks TECHNIQUE: Multiaxial CT images of the abdomen and pelvis were performed both before and after the us e of intravenous contrast to evaluate the urinary system. Maximal intensity projection images were pe rformed at the workstation by the radiologist. A dose lowering technique was utilized adhering to th e principles of ALARA. COMPARISON STUDY: Abdomen and pelvis CT 09/04/2015. FINDINGS: No renal or ureteral calculi. No hydronephrosis. No suspicious filling defects seen within the opacified bilateral renal collecting systems or ureters. The kidneys enhance normally. Of note, the proximal right ureter and majority of the distal bilateral ureters are not well opacified but are normal in course and caliber. Small linear filling defect seen layering within the bladder posterior ly. This favors left products given the patient's history of hematuria. These do not appear to be adh erent to the bladder wall. Small irregular filling defect seen within the 1.5 cm left posterior bladd er diverticulum which also favors blood products given the layering appearance. A few bibasilar linear densities consistent with subsegmental atelectasis. Small cluster of tree-in-b ud nodular opacities within the base of the left lower lobe with partial opacification of the left lo wer lobe bronchi. This favors a mild infectious bronchiolitis and could be due to prior aspiration. N o pneumoperitoneum. No pneumatosis. Prior internal fixation of a right proximal femoral fracture. Mul tiple old, healed left-sided rib fractures. 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 There is also a 3.2 x 2.3 cm aneurysm within the proximal to mid superior mesenteric artery best seen on image 150. Tortuous abdominal aorta. There are a few hypodense lesions within the liver with the largest in the right hepatic lobe measuring 1.4 cm. These remain unchanged and is therefore likely benign. Suspect a few tiny gallstones. The unenhanced pancreas and spleen are unremarkable. N o retroperitoneal lymphadenopathy. Normal adrenal glands. Left inguinal hernia containing approximate ly 10 cm of the proximal sigmoid colon. Colonic diverticulosis. No evidence for diverticulitis. No guevara wel wall thickening or obstruction. Normal appendix. IMPRESSION: 1. No renal or ureteral stones. No hydronephrosis. 2. No suspicious filling defects seen within the opacified bilateral renal collecting systems or uret ers. 3. Small linear filling defects layering within the bladder posteriorly and within the 1.5 cm left po sterior bladder diverticulum. The appearance favors small areas of blood products/clot given the stephanie ent's history of hematuria. However, this should be confirmed with follow-up cystoscopy. 4. 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 Follow-up nonemergent vascular surgery consultation recommended. 5. Moderate size left inguinal hernia containing a segment of the proximal sigmoid colon. No evidence for bowel obstruction. 6. Normal appendix. 7. Colonic diverticulosis. 8. Small focal area of tree-in-bud nodular opacities within the left lower lobe which favors a mild i nfectious bronchiolitis possibly secondary to aspiration.. 9. Additional findings as described above. Electronically signed by: Kartik Aly M.D. 12/21/2018 3:47 PM
[2018-12-22 06:07] LABS: Hematocrit (blood only) 38.2 % (42-52); Hemoglobin 12.5 g/dL (14.0-18.0); Mean Corpuscular Hemoglobin 32.5 pg (25-34); Mean Corpuscular Hgb Conc 32.7 g/dL (32-36); Mean Corpuscular Volume 99.2 fL (80-100); Mean Platelet Volume 9.2 fL (7.4-10.4); Platelet Count 166 K/uL (130-400); RDW Coefficient of Variation 14.4 % (11.5-14.5); RDW Standard Deviation 51.7 fL (36.4-46.3); Red Blood Count 3.85 M/uL (4.7-6.1); White Blood Count 8.63 K/uL (4.8-10.8)
[2018-12-22 06:57] LABS: BUN Creatinine Ratio 23.9 (10-20); Calcium 8.6 mg/dl (8.5-10.1); Creatinine Clr Calc Pharmacy 75.6 ml/min; Est GFR (African American) 98.8; Est GFR (Non-African American) 85.2; Potassium 4.5 mmol/L (3.5-5.1)
[2018-12-22] MEDS: PREGABALIN 100 MG CAP PO SCH ×2 (07:34→21:19)
[2018-12-22] MEDS: GABAPENTIN 100 MG CAP PO SCH ×3 (07:35→21:15)
[2018-12-22] MEDS: OXcarbazepine 150 MG TABLET PO SCH ×2 (07:35→21:15)
[2018-12-22] MEDS: VITAMIN B COMPLEX TAB PO SCH (07:36)
[2018-12-22] MEDS: AMOXICILLIN/CLAVULANATE 875 MG TAB PO SCH ×2 (07:36→16:16)
[2018-12-22] MEDS: FOLIC ACID 400 MCG TAB PO SCH (07:37)
[2018-12-22] MEDS: ASPIRIN 81 MG ECTAB PO SCH (07:37)
[2018-12-22] MEDS: lisinopriL 10 MG TAB PO SCH (07:37)
[2018-12-22] MEDS: THIAMINE HCL 100 MG TAB PO SCH (07:37)
[2018-12-22] MEDS: FOLIC ACID 1 MG TAB PO SCH (07:37)
[2018-12-22] MEDS: ATORVASTATIN 40 MG TAB PO SCH (07:38)
[2018-12-22] MEDS: METOPROLOL SUCC 25MG EXT REL TAB PO SCH (07:38)
[2018-12-22] MEDS: FLUTICASONE/SALMETEROL (ADVAIR) 500/50 INH 14 PUFF INH SCH ×2 (07:38→21:16)
[2018-12-22] MEDS: VENLAFAXINE HCL XR 150 MG CAPXR PO SCH (07:38)
[2018-12-22] MEDS: METOPROLOL SUCC 50MG EXT REL TAB PO SCH (07:39)
[2018-12-22] MEDS: NICOTINE 7 MG/24 HR TDSY TD SCH (07:40)
[2018-12-22] MEDS: BUDESONIDE 0.5 MG/2 ML VIAL (PULMICORT) NEB SCH ×2 (07:58→19:28)
[2018-12-22] MEDS: ALBUT/IPRATROP 3MG/0.5MG NEB 3 ML VIAL INH PRN ×2 (07:59→19:26)
[2018-12-22] MEDS ORDERED: predniSONE 50 MG TAB PO SCH (09:00)
--- NOTE | 2018-12-22 11:28 | Urology Consultation ---
Date of Consultation December 22, 2018 Assessment & Plan (1) Hematuria: CT findings reviewed. No upper tract lesions, + bladder diverticulum with possible blood within the bladder. Cystoscopy will be needed to complete workup, risk factors for bladder cancer present. Importance of follow-up for evaluation to avoid progression of a potential bladder malignancy from curable to incurable status is reviewed - patient vocalizes understanding. Will schedule. (2) BPH loc w urin obs/LUTS: Longstanding bothersome voiding symptoms. Will provide a trial of tamsulosin QHS for his LUTS. Rx ordered and provided for outpatient use. Possible side effects including orthostasis reviewed. Can provide feedback at the time of outpatient f/u. Thank you for allowing us to participate in this patient's acute care. Please contact our service as needed with any questions or concerns. History of Present Illness Reason for Consultation: Gross hematuria, LUTS, BPH. Attending Physician: Sha Card DO History of Present Illness 68 yo male, last seen by our service by Dr. Espino as an outpatient in 2014, admitted due to new COPD exacerbation. He notes he has quit smoking within the past week. He notes weeks of intermittent hematuria, hospitalist notes reviewed. He has undergone a CT scan showing no upper tract lesions. Images are reviewed. Urology consultation is sought out to assist with his care. Patient notes a longstanding history of obstructive voiding symptoms. He is noted to have a history of mild hypospadias and meatal stenosis as well. He has never undergone cystoscopy that he recalls, none documented as outpatient. A history of UTI is noted as well. He denies new exacerbation of his voiding complaints, feels his hematuria has resolved. Allergies Allergy/AdvReac Type Severity Reaction Status Date / Time No Known Allergies Allergy Unverified 12/19/18 15:46 Home Medications Home Medications Medication Instructions Recorded Confirmed Type gabapentin 100 mg capsule 300 mg PO TID #180 cap 11/19/18 12/19/18 History pregabalin 100 mg capsule 100 mg PO BID #60 cap 12/04/18 12/19/18 History fluticasone 500 mcg-salmeterol 50 1 puffs INH BID 12/06/18 12/19/18 History mcg/dose blistr powdr for inhalation ipratropium-albuterol 0.5 mg-3 3 ml INH QID PRN ml 12/06/18 12/19/18 History mg(2.5 mg base)/3 mL nebulization soln metoprolol succinate ER 25 mg 25 mg PO DAILY 12/06/18 12/19/18 History tablet,extended release 24 hr metoprolol succinate ER 50 mg 50 mg PO DAILY #30 tab 12/06/18 12/19/18 History tablet,extended release 24 hr albuterol sulfate HFA 90 1 - 2 puff INHALATION Q4H PRN #18 12/13/18 12/19/18 Rx mcg/actuation aerosol inhaler gm atorvastatin 40 mg tablet 40 mg PO DAILY 12/13/18 12/19/18 History folic acid 400 mcg tablet 0.4 mg PO DAILY 12/13/18 12/19/18 History lisinopril 10 mg tablet 10 mg PO DAILY 12/13/18 12/19/18 History oxcarbazepine 300 mg tablet 300 mg PO BID 12/13/18 12/19/18 History venlafaxine ER 150 mg 150 mg PO DAILY 12/13/18 12/19/18 History capsule,extended release 24 hr vitamin B complex-folic acid 2,000 1 cap PO DAILY 12/13/18 12/19/18 History mcg capsule tamsulosin 0.4 mg PO HS #30 cap 12/22/18 Rx Patient History Medical History Face lacerations (Acute) Neuropathy (Chronic) Hypertension (Chronic) Alcohol abuse (Chronic) COPD (chronic obstructive pulmonary disease) (Chronic) Anemia (Acute) Tremor Gross hematuria Slowing of urinary stream H/O tooth extraction Lower teeth on 04/23/2018 Hyperlipidemia Surgical History S/P foot surgery Family History Father Hypertension Aneurysm Mother Swelling Other No significant family history Social History Preferred Language: [place] Communication Ability: Effective Game [employer] Supervisor Required: No Beliefs That Will Affect Care: None Current Living Situation: Spouse Feels Safe at Home: Yes Smoking Status: Current every day smoker Tobacco Type: cigarettes ; Cigarettes Per Day: 10 ; Second Hand Exposure: No ; Hx Alcohol Use: Yes Alcohol type: beer Alcohol Intake Frequency Comment: 8+ per day Hx Substance Use: No Review of Systems Constitutional: no fever and no chills Eyes: no diplopia Ear, Nose, Mouth, Throat: no ear trauma Respiratory: + problem reported (worsening breathing as noted) Cardiovascular: no chest pain Genitourinary: + as per Subjective / HPI, + difficulty urinating and + hematuria Musculoskeletal: no back pain Integumentary: no acne and no boil Neurologic: no paralysis Psychiatric: no hopelessness Endocrine: + fatigue Hematologic / Lymphatic: no lymphadenopathy Allergy / Immunological: no tongue swelling Physical Exam Constitutional: well developed and well nourished; no acute distress Eyes: eyes not dysmorphic ENMT: Ears: no external ear abnormality Neck: trachea midline; no anterior neck swelling Respiratory: + respiratory distress (mild with NC O2); does not use accessory muscles Cardiovascular: Vessels: radial pulses present Gastrointestinal (Abdomen): Inspection/Auscultation: abdomen not distended Percussion/Palpation: abdomen soft; abdomen nontender Musculoskeletal: Head/Neck/Chest: normocephalic and neck supple Skin: normal turgor Neurologic: awake; not obtunded Psychiatric: Orientation: oriented x 3 Lymphatic: no lymphadenopathy Results & Data Vital Signs (Past 12 Hours) Vital Signs Temp Pulse Resp BP BP Pulse Ox 12/22/18 08:00 78 18 95 12/22/18 07:19 36.4 C L 69 16 118/75 100 12/22/18 03:55 36.4 C L 77 17 109/71 98 12/21/18 23:53 36.4 C L 73 18 116/77 98 PG Care Time/CCT Total # of Minutes Spent Total Time Spent with Patient: Total time spent is greater than 50% in coordination of care (as documented) at patient's floor/unit and/or counseling patient:
--- NOTE | 2018-12-22 11:47 | Urology Progress Note ---
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 Typical management reviewed - would be surgical with thrombectomy. Seen the extent of thrombus, tertiary facility would be [facility] (possible need for mobilization of hepatic IVC and / or availability of cardiothoracic services). Patient notes he is typically seen at [facility] and would like to maintain care there - this is nonacute, will arrange for appropriate referral on discharge from his acute issues. Alternate management would be consideration of pre-surgical chemotherapy for tumor shrinkage and subsequent resection - this would be less ideal, but will arrange for at least a discussion to take place with oncology service. With a high risk tumor as seems to be present, the consideration of postop chemotherapy would also be present. Patient vocalizes understanding of discussion, questions answered. Continue management per primary service of other active medical issues. Subjective 68 yo male with a R renal lesion s/p CT scan with contrast done yesterday per orders. Care d/w patient and nursing - remains inpatient due to infection / BP issues. CT images personally reviewed, report noted - R renal mass, central, c/w RCC with thrombus to IVC, reaches ~ inferior edge of liver. Per nursing CT chest done this AM? No report in the chart or order noted. Patient denies new c/o, marquez remains in place with earl urine. Review of Systems Constitutional: no fever and no chills Eyes: no diplopia Ear, Nose, Mouth, Throat: no ear trauma Respiratory: + problem reported (worsening breathing as noted) Cardiovascular: no chest pain Genitourinary: + as per Subjective / HPI, + difficulty urinating and + hematuria Musculoskeletal: no back pain Integumentary: no acne and no boil Neurologic: no paralysis Psychiatric: no hopelessness Endocrine: + fatigue Hematologic / Lymphatic: no lymphadenopathy Allergy / Immunological: no tongue swelling Physical Exam Constitutional: well developed and well nourished; no acute distress Eyes: eyes not dysmorphic ENMT: Ears: no external ear abnormality Neck: trachea midline; no anterior neck swelling Respiratory: does not use accessory muscles Cardiovascular: Vessels: radial pulses present Gastrointestinal (Abdomen): Inspection/Auscultation: abdomen not distended Percussion/Palpation: abdomen soft; abdomen nontender Musculoskeletal: Head/Neck/Chest: normocephalic and neck supple Skin: normal turgor Neurologic: awake; not obtunded paraplegia Psychiatric: Orientation: oriented x 3 Lymphatic: no lymphadenopathy Results & Data Vital Signs (Past 12 Hours) Vital Signs Temp Pulse Resp BP BP Pulse Ox 12/22/18 08:00 78 18 95 12/22/18 07:19 36.4 C L 69 16 118/75 100 12/22/18 03:55 36.4 C L 77 17 109/71 98 12/21/18 23:53 36.4 C L 73 18 116/77 98 Laboratory Results Laboratory Results - last 48 hr 12/20/18 12/21/18 12/21/18 18:55 11:38 14:00 WBC RBC Hgb Hct MCV MCH MCHC RDW Std Deviation RDW Coeff of Jem Plt Count MPV Sodium Potassium Chloride Carbon Dioxide Anion Gap BUN Creatinine Est Cr Clr Drug Dosing Est GFR ( Amer) Est GFR (Non-Af Amer) BUN/Creatinine Ratio Glucose POC Glucose 95 Calcium Troponin I < 0.015 Urine Color Yellow Urine Appearance Clear Urine pH 6.0 Ur Specific [place] 1.018 Urine Protein Negative Urine Glucose (UA) Negative Urine Ketones Negative Urine Blood Trace H Urine Nitrite Negative Urine Bilirubin Negative Urine Urobilinogen Negative Ur Leukocyte Esterase 2+ H Urine WBC (Auto) >30 H Urine RBC (Auto) 0-4 U Hyaline Cast (Auto) 1-5 U Epithel Cells (Auto) 10-20 H Urine Bacteria (Auto) 1+ H Urine Yeast Not Reportable 12/22/18 12/22/18 05:56 05:56 WBC 8.63 RBC 3.85 L Hgb 12.5 L Hct 38.2 L MCV 99.2 MCH 32.5 MCHC 32.7 RDW Std Deviation 51.7 H RDW Coeff of Jem 14.4 Plt Count 166 MPV 9.2 Sodium 133 L Potassium 4.5 Chloride 94 L Carbon Dioxide 37 H Anion Gap 2.0 L BUN 22 H Creatinine 0.93 Est Cr Clr Drug Dosing 75.6 Est GFR ( Amer) 98.8 Est GFR (Non-Af Amer) 85.2 BUN/Creatinine Ratio 23.9 H Glucose 112 H POC Glucose Calcium 8.6 Troponin I Urine Color Urine Appearance Urine pH Ur Specific [place] Urine Protein Urine Glucose (UA) Urine Ketones Urine Blood Urine Nitrite Urine Bilirubin Urine Urobilinogen Ur Leukocyte Esterase Urine WBC (Auto) Urine RBC (Auto) U Hyaline Cast (Auto) U Epithel Cells (Auto) Urine Bacteria (Auto) Urine Yeast Diagnostic Findings IMPRESSION: 1. No renal or ureteral stones. No hydronephrosis. 2. No suspicious filling defects seen within the opacified bilateral renal collecting systems or ureters. 3. Small linear filling defects layering within the bladder posteriorly and within the 1.5 cm left posterior bladder diverticulum. The appearance favors small areas of blood products/clot given the patient's history of hematuria. However, this should be confirmed with follow-up cystoscopy. 4. 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 Follow-up nonemergent vascular surgery consultation recommended. 5. Moderate size left inguinal hernia containing a segment of the proximal sigmoid colon. No evidence for bowel obstruction. 6. Normal appendix. 7. Colonic diverticulosis. 8. Small focal area of tree-in-bud nodular opacities within the left lower lobe which favors a mild infectious bronchiolitis possibly secondary to aspiration.. 9. Additional findings as described above. PG Care Time/CCT Total # of Minutes Spent Total Time Spent with Patient: Total time spent is greater than 50% in coordination of care (as documented) at patient's floor/unit and/or counseling patient:
--- NOTE | 2018-12-22 15:41 | Hospitalist Progress Note ---
Date of Service December 22, 2018 Assessment & Plan (1) COPD exacerbation: appears about the same as yesterday still with wheezing, coarse breath sounds bilaterally more prominent posteriorly Prednisone 50mg daily, will give an extra 20mg this afternoon and increase the AM Prednisone to 60mg daily continue Augmentin for antibacterial coverage, concurrent treatment of UTI Albuterol nebs QID continue home inhalers no evidence of pneumonia or PE on imaging day to day decision on discharge, would like wheezing to improve (2) Acute and chronic respiratory failure with hypercapnia: Required BiPAP for 3 hours on admission Initial ABG showed a pH of 7.26 ABG normalized breathing comfortably off the BIPAP on 4L NC and he says he wears that at home acute respiratory failure resolved (3) Alcohol withdrawal: can transfer to medical floor thiamine and folic acid supplement Ativan IV as needed withdrawal, none needed thus far Tapering dose of chlordiazepoxide no tremors, tachycardia intermittent but majority of the time HR normal will educate patient on importance of cutting back/abstaining from alcohol (4) Tobacco abuse: will provide with nicotine patch (5) Essential hypertension: Continue lisinopril BP stable (6) UTI (urinary tract infection): > 30 WBC on UA urine culture growing alpha strep, not enterococcus will treat with Augmentin BID patient admits to dysuria, it is now resolved with antibiotics would need 14 days total of abx, today is day 3 (7) Tachycardia: sinus tachycardia on monitor, confirmed on 12 lead EKG resolved today, less distress (8) Hematuria: c/o hematuria for 3-4 weeks, coca cola colored associated with post void dribbling, incontinence, dysuria, no flank pain this is a new problem for him will repeat UA, first UA had +1 blood and 5-[address] with and without contrast of abdomen/pelvis: some blood/clot in bladder, no stones, no masses seen consult urology, routine Dr. Jose Dang recommends follow up in office for cystoscopy, patient is agreeable for LUTS Dr. 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 Dang with urology, can follow up for cysto scopy in the office reviewed CT, some blood/clot in the bladder, no renal mass, no kidney stones reviewed labs, CBC stable, BMP shows baseline Cr and CO2 up slightly at 37 Review of Systems Review of Systems: All systems reviewed & are unremarkable except as noted in HPI & below Constitutional: + fatigue and + weakness; no fever Respiratory: + cough, + dyspnea and + wheezing Cardiovascular: no chest pain and no edema Gastrointestinal: no abdominal pain, no nausea, no vomiting, no constipation and no diarrhea/loose stools Genitourinary: no dysuria and no hematuria Physical Exam Constitutional: WD/WN, vitals as above no acute distress Eyes: PERRL, conjunctivae normal, anicteric sclerae ENMT: external ear and nose normal, oropharynx normal Neck: trachea midline, no thyromegaly Respiratory: normal respiratory effort; no respiratory distress Auscultation: + wheezes (expiratory, bilaterally, no improvement since yesterday); no crackles and no rhonchi Cardiovascular: Rate/Rhythm: regular rate and regular rhythm Heart Sounds: normal S1 and normal S2; no murmur Vessels: no JVD Extremities: normal capillary refill and + edema (slight, non-pitting bilaterally) Gastrointestinal (Abdomen): normal bowel sounds, soft, nontender, no hepatosplenomegaly Musculoskeletal: no cyanosis or clubbing, extremities motor strength 5/5 Skin: no rashes, warm and dry Neurologic: patellar DTR's 2+ bilat, sensation intact and PERRL, EOMI, accommodation nl, no face palsy, no dysarthria Psychiatric: A+Ox3, euthymic affect Lymphatic: no cervical or axillary lymphadenopathy Results & Data Vital Signs (Past 12 Hours) Vital Signs Temp Pulse Resp BP BP Pulse Ox 12/22/18 14:46 37 C 106 H 16 118/75 91 12/22/18 08:00 78 18 95 12/22/18 07:19 36.4 C L 69 16 118/75 100 12/22/18 03:55 36.4 C L 77 17 109/71 98 Laboratory Results Laboratory Results - last 24 hr 12/22/18 12/22/18 05:56 05:56 WBC 8.63 RBC 3.85 L Hgb 12.5 L Hct 38.2 L MCV 99.2 MCH 32.5 MCHC 32.7 RDW Std Deviation 51.7 H RDW Coeff of Jem 14.4 Plt Count 166 MPV 9.2 Sodium 133 L Potassium 4.5 Chloride 94 L Carbon Dioxide 37 H Anion Gap 2.0 L BUN 22 H Creatinine 0.93 Est Cr Clr Drug Dosing 75.6 Est GFR ( Amer) 98.8 Est GFR (Non-Af Amer) 85.2 BUN/Creatinine Ratio 23.9 H Glucose 112 H Calcium 8.[address] abdomen/pelvis IMPRESSION: 1. No renal or ureteral stones. No hydronephrosis. 2. No suspicious filling defects seen within the opacified bilateral renal collecting systems or ureters. 3. Small linear filling defects layering within the bladder posteriorly and within the 1.5 cm left posterior bladder diverticulum. The appearance favors small areas of blood products/clot given the patient's history of hematuria. However, this should be confirmed with follow-up cystoscopy. 4. 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 Follow-up nonemergent vascular surgery consultation recommended. 5. Moderate size left inguinal hernia containing a segment of the proximal sigmoid colon. No evidence for bowel obstruction. 6. Normal appendix. 7. Colonic diverticulosis. 8. Small focal area of tree-in-bud nodular opacities within the left lower lobe which favors a mild infectious bronchiolitis possibly secondary to aspiration.. 9. Additional findings as described above. Medications Administered Current Inpatient Medications Acetaminophen (Tylenol) 650 mg PO Q4H PRN PRN Reason: Pain or Fever Stop: 01/18/19 18:54 Last Admin: 12/20/18 04:55 Dose: 650 mg Documented by: Al Hydrox/Mg Hydrox/Simethicone (Maalox) 15 ml PO Q4H PRN PRN Reason: Dyspepsia Stop: 01/18/19 18:54 Albuterol (Duoneb) 3 ml INH QID PRN PRN Reason: shortness of breath or wheezing Stop: 01/18/19 19:03 Last Admin: 12/22/18 07:59 Dose: 3 ml Documented by: Albuterol (Ventolin Hfa) 1 - 2 puffs INH Q4H PRN PRN Reason: Short Of Breath/Wheezing Stop: 01/18/19 19:03 Amoxicillin/Clavulanate Potassium (Augmentin 875mg) 1 tab PO BIDM [facility]; Protocol Stop: 12/31/18 07:59 Last Admin: 12/22/18 07:36 Dose: 1 tab Documented by: Aspirin (Ecotrin Ectab) 81 mg PO QAM [facility] Stop: 01/18/19 18:59 Last Admin: 12/22/18 07:37 Dose: 81 mg Documented by: Atorvastatin Calcium (Lipitor) 40 mg PO DAILY [facility] Stop: 01/19/19 08:59 Last Admin: 12/22/18 07:38 Dose: 40 mg Documented by: Budesonide (Pulmicort Respules) 0.5 mg NEB BIDR [facility] Stop: 01/19/19 06:59 Last Admin: 12/22/18 07:58 Dose: 0.5 mg Documented by: Chlordiazepoxide HCl (Librium) 5 mg PO Q12H [facility] Stop: 12/23/18 12:02 Folic Acid (Folvite) 1 mg PO QAM [facility] Stop: 01/19/19 08:59 Last Admin: 12/22/18 07:37 Dose: 1 mg Documented by: Folic Acid (Folvite) 400 mcg PO DAILY [facility] Stop: 01/19/19 08:59 Last Admin: 12/22/18 07:37 Dose: 400 mcg Documented by: Gabapentin (Neurontin) 200 mg PO TID [facility] Stop: 01/18/19 20:59 Last Admin: 12/22/18 13:42 Dose: 200 mg Documented by: Ioversol (Optiray 320 100ml) 93 ml IV ONCE PRN PRN Reason: Interaction Checking Stop: 12/25/18 15:22 Last Admin: 12/21/18 15:23 Dose: 93 ml Documented by: Lisinopril (Zestril) 10 mg PO DAILY [facility] Stop: 01/19/19 08:59 Last Admin: 12/22/18 07:37 Dose: 10 mg Documented by: Lorazepam (Ativan) 1 - 3 mg PO UD PRN; Protocol PRN Reason: EtoH Withdrawal AWSS 6-10+ Stop: 01/18/19 18:54 Magnesium Hydroxide (Milk Of Magnesia) 30 ml PO Q12H PRN PRN Reason: Constipation Stop: 01/18/19 18:54 Metoprolol Succinate (Toprol Xl) 25 mg PO DAILY [facility] Stop: 01/19/19 08:59 Last Admin: 12/22/18 07:38 Dose: 25 mg Documented by: Metoprolol Succinate (Toprol Xl) 50 mg PO DAILY [facility] Stop: 01/19/19 08:59 Last Admin: 12/22/18 07:39 Dose: 50 mg Documented by: Miscellaneous (Remove Nicoderm Patch) 1 ea N/A HS [facility] Stop: 01/20/19 20:59 Last Admin: 12/21/18 19:56 Dose: 1 ea Documented by: Nicotine (Nicoderm Cq) 7 mg TD QAM [facility] Stop: 01/20/19 08:59 Last Admin: 12/22/18 07:40 Dose: 7 mg Documented by: Nitroglycerin (Nitrostat) 0.4 mg SL UD PRN PRN Reason: Chest Pain Stop: 01/18/19 18:54 Ondansetron HCl (Zofran) 4 mg IV Q6H PRN PRN Reason: Nausea Stop: 01/18/19 18:54 Oxcarbazepine (Trileptal) 300 mg PO BID [facility] Stop: 01/18/19 20:59 Last Admin: 12/22/18 07:35 Dose: 300 mg Documented by: Polyethylene Glycol (Miralax Powder Packet) 17 gm PO DAILY PRN PRN Reason: Constipation Stop: 01/18/19 18:54 Prednisone (Prednisone) 50 mg PO QAM [facility] Stop: 01/21/19 08:59 Last Admin: 12/22/18 07:35 Dose: 50 mg Documented by: Pregabalin (Lyrica) 100 mg PO BID [facility] Stop: 01/18/19 20:59 Last Admin: 12/22/18 07:34 Dose: 100 mg Documented by: Fluticasone/Salmeterol (Advair Diskus 500/50) 1 puffs INH BID [facility] Stop: 01/18/19 20:59 Last Admin: 12/22/18 07:38 Dose: 1 puffs Documented by: Tamsulosin HCl (Flomax) 0.4 mg PO [facility] Stop: 01/21/19 20:59 Thiamine HCl (Vitamin B-1) 100 mg PO QAM [facility] Stop: 01/19/19 08:59 Last Admin: 12/22/18 07:37 Dose: 100 mg Documented by: Venlafaxine HCl (Effexor Extended Release) 150 mg PO DAILY [facility] Stop: 01/19/19 08:59 Last Admin: 12/22/18 07:38 Dose: 150 mg Documented by: Vitamin B Complex (Vitamin B Complex) 1 tab PO DAILY [facility] Stop: 01/19/19 08:59 Last Admin: 12/22/18 07:36 Dose: 1 tab Documented by: Zolpidem Tartrate (Ambien) 5 mg PO HS PRN PRN Reason: Sleep Stop: 01/18/19 18:54 PG Care Time/CCT Total # of Minutes Spent Total Time Spent with Patient: Total time spent is greater than 50% in coordination of care (as documented) at patient's floor/unit and/or counseling patient: (1) Alcohol withdrawal Complication of substance-induced condition: with delirium Qualified Code(s): F10.231 - Alcohol dependence with withdrawal delirium
[2018-12-22] MEDS ORDERED: predniSONE 20 MG TAB PO STA (17:59)
[2018-12-22] MEDS: TAMSULOSIN HCL 0.4 MG CAP PO SCH (21:16)
[2018-12-22] MEDS: chlordiazePOXIDE HCl 5 MG CAP PO SCH (23:59)
[2018-12-23] MEDS: ALBUT/IPRATROP 3MG/0.5MG NEB 3 ML VIAL INH PRN ×2 (07:25→11:59)
[2018-12-23] MEDS: BUDESONIDE 0.5 MG/2 ML VIAL (PULMICORT) NEB SCH ×2 (07:25→20:59)
[2018-12-23 08:24] LABS: Hematocrit (blood only) 38.9 % (42-52); Hemoglobin 12.6 g/dL (14.0-18.0); Mean Corpuscular Hemoglobin 31.8 pg (25-34); Mean Corpuscular Hgb Conc 32.4 g/dL (32-36); Mean Corpuscular Volume 98.2 fL (80-100); Mean Platelet Volume 9.6 fL (7.4-10.4); Platelet Count 177 K/uL (130-400); RDW Coefficient of Variation 14.3 % (11.5-14.5); RDW Standard Deviation 51.6 fL (36.4-46.3); Red Blood Count 3.96 M/uL (4.7-6.1); White Blood Count 7.34 K/uL (4.8-10.8)
[2018-12-23] MEDS: FLUTICASONE/SALMETEROL (ADVAIR) 500/50 INH 14 PUFF INH SCH ×2 (08:32→21:01)
[2018-12-23] MEDS: FOLIC ACID 1 MG TAB PO SCH (08:33)
[2018-12-23] MEDS: VITAMIN B COMPLEX TAB PO SCH (08:33)
[2018-12-23] MEDS: predniSONE 20 MG TAB PO SCH (08:33)
[2018-12-23] MEDS: OXcarbazepine 150 MG TABLET PO SCH ×2 (08:33→21:00)
[2018-12-23] MEDS: lisinopriL 10 MG TAB PO SCH (08:33)
[2018-12-23] MEDS: FOLIC ACID 400 MCG TAB PO SCH (08:33)
[2018-12-23] MEDS: ASPIRIN 81 MG ECTAB PO SCH (08:34)
[2018-12-23] MEDS: NICOTINE 7 MG/24 HR TDSY TD SCH (08:34)
[2018-12-23] MEDS: THIAMINE HCL 100 MG TAB PO SCH (08:34)
[2018-12-23] MEDS: VENLAFAXINE HCL XR 150 MG CAPXR PO SCH (08:34)
[2018-12-23] MEDS: AMOXICILLIN/CLAVULANATE 875 MG TAB PO SCH ×2 (08:35→16:56)
[2018-12-23] MEDS: GABAPENTIN 100 MG CAP PO SCH ×2 (08:35→13:45)
[2018-12-23] MEDS: METOPROLOL SUCC 25MG EXT REL TAB PO SCH (08:36)
[2018-12-23] MEDS: ATORVASTATIN 40 MG TAB PO SCH (08:36)
[2018-12-23] MEDS: PREGABALIN 100 MG CAP PO SCH ×2 (08:42→21:01)
[2018-12-23] MEDS: METOPROLOL SUCC 50MG EXT REL TAB PO SCH (08:47)
[2018-12-23 09:02] LABS: BUN Creatinine Ratio 22.9 (10-20); Calcium 8.6 mg/dl (8.5-10.1); Creatinine Clr Calc Pharmacy 84.7 ml/min; Est GFR (African American) 106.3; Est GFR (Non-African American) 91.7; Potassium 3.8 mmol/L (3.5-5.1)
--- NOTE | 2018-12-23 10:40 | Hospitalist Progress Note ---
Date of Service December 23, 2018 Assessment & Plan (1) COPD exacerbation: Improving- still continuing to have wheezing and cough with sputum production, but per patient breathing almost at baseline Prednisone 60mg- will need to taper slowly Continue Augmentin- for copd exacerbation and concurrent UTI Schedule nebs QID- will need rx as outpatient for home nebulizer Budesonide BID Continue home inhalers- Ventolin Hfa Incentive Spirometery- Educated on proper use of spirometer May benefit from COPD clinic/seat cover maker as outpatient PT/OT- patient lives in 4th floor apartment Patient may benefit from outpatient follow-up with Pulmonology to establish care (2) Acute and chronic respiratory failure with hypercapnia: Improved Required BiPAP for 3 hours on admission- Initial ABG with pH of 7.26. On 3L NC at the moment- may need increased oxygen with activity at discharge- will provide CM with Rx- also for nebs May require outpatient evaluation for PAUL- may benefit from nasal pillows if required as patient intolerant to masks (3) UTI (urinary tract infection): Improving- patient afebrile, WBC wnl UA on admission with > 30 WBC, 3+ leuk esterase, trace blood CT negative for nephrolithiasis Urology saw patient - rec for tamsulosin- will need cystoscopy as outpatient for further workup of hematuria Repeat UA with trace blood Urine culture- alpha strep, not enterococcus Continue Augmentin BID for concurrent treatment of COPD exacerbation and UTI for total treatment duration 14 days, ending on 01/04. (4) Hematuria: Patient with hematuria for over a month, per patient associated with post void dribbling, incontinence, dysuria, but without no flank pain. Repeat UA with trace blood, 0-[address] with and without contrast of abdomen/pelvis: some blood/clot in bladder, no stones, no masses seen Dr. Jose Dang- patient agreeable and will need outpatient cystoscopy in follow-up Continue Flomax 0.4 daily- will continue at discharge (5) Alcohol withdrawal: Thiamine and Folic Acid supplementation Ativan prn- has not required Ativan IV as needed withdrawal, none needed thus far Tapering dose of chlordiazepoxide Continue education on importance of abstinence from alcohol (6) Tobacco abuse: Nicotine patch ordered (7) Essential hypertension: Stable Continue Lisinopril 10mg, Metoprolol succinate 75mg (8) Tachycardia: Stable- has been running low 90s, 110s/120 this AM- may be multifactoral- patient receiving duonebs QID as well as budesonide. Patient asymptomatic (9) Superior mesenteric artery aneurysm: Incidental finding on CT, also with smaller aneurysm of celiac Radiology recommended routine follow up with vascular surgery for their recommendations Plan: anticipate discharge tomorrow or Sunday, pending improvement in breathing Supervising Physician Co-Signing Physician Notes Attending Attestation: Pt seen/examined, chart reviewed, care plan d/w TISHA Montoya. I agree w/ the hurley components of her documentation. Pt seemed mildly confused during my visit, thought I was from the neurology team. He c/o dyspnea. Was attempting to eat dinner. Visibly dyspneic at times. Vitals - tachy, O2 sats acceptable gen - mild dyspnea noted neck - no JVD heart - tachy, s1 s2 lungs - mild wheezing b/l, mild tachypnea abd - soft ext - trace edema b/l A/P: 1. COPD exacerbation - slow improvement; cont steroids, nebs, abx. 2. UTI - improved; finish abx. 3. alcohol abuse - 8+ beers/day. some of the tachycardiac could be withdrawal. increase gabapentin to 400mg TID. would move to tele; cont ativan prn. 4. tachycardia - as above; nebs could be doing it; withdrawal; COPD; etc. 5. acute/chronic resp failure. Sofia ESCOBEDO MD Subjective Patient states his breathing is improved from yesterday but not at baseline. He does continue to have a productive cough of yellow sputum, which has decreased in amount and frequency. Of note, the patient states that over the past several months, he has noticed an increased shortness of breath with exertion, which consists of walking to his bathroom approximately 10 feet from his bed. He states that if he doesn't have his inhaler in there when he gets to the bathroom it is extremely difficult to get back to bed. He uses oxygen at home at 3L NC but states he does increase it to 4L as needed with exertion, but states he believes he is requiring much more than that currently. He states he does not have CPAP/BiPAP at home, but is unable to tolerate anything on his face. He admits to believing he is a "mouth breather" but seems agreeable to nasal pillow if he were worked up for PAUL as an outpatient. He states while on higher oxygen in the ambulance on the way to the hospital was the best his breathing has ever been. He also states he has a nebulizer machine at home but never believed it to be beneficial in the past, but he is agreeable at this time to initiate use. While in the room, education was had regarding the proper and improper use of incentive spirometry. He has not been following with a seat cover maker, but is agreeable to being set up with one locally and/or follow-up with COPD clinic. Review of Systems Review of Systems: All systems reviewed & are unremarkable except as noted in HPI & below Constitutional: + fatigue; no fever, no chills and no sweats Eyes: no diplopia and no eye pain Ear, Nose, Mouth, Throat: no tinnitus, no dizziness and no dysphagia Respiratory: + cough, + change in sputum (decreased sputum production compared to yesterday), + dyspnea, + dyspnea on exertion and + wheezing Cardiovascular: no chest pain, no palpitations and no edema Gastrointestinal: no nausea, no vomiting, no constipation and no diarrhea/loose stools Genitourinary: + dysuria (improved) and + hematuria; no urinary incontinence Integumentary: no acne, no rash and no lesions Neurologic: no falls, no paralysis and no headache(s) Endocrine: no cold intolerance and no heat intolerance Physical Exam Eyes: PERRL, conjunctivae normal, anicteric sclerae ENMT: external ear and nose normal, oropharynx normal (top dentures) Neck: trachea midline, no thyromegaly Respiratory: + cough and able to speak in complete sentences (at times, patient became winded with prolonged conversation); no respiratory distress and no labored breathing Auscultation: + diminished lung sounds, + rhonchi and + wheezes (diffuse inpiratory and expiratory wheezes) Cardiovascular: Rate/Rhythm: regular rhythm and + tachycardic (100/110s) Heart Sounds: normal S1 and normal S2; no murmur Vessels: no JVD Extremities: + edema (trace bilateral) Gastrointestinal (Abdomen): normal bowel sounds, soft, nontender, no hepatosplenomegaly Musculoskeletal: no cyanosis or clubbing, extremities motor strength 5/5 Skin: no rashes, warm and dry Neurologic: PERRL, EOMI, accommodation nl, no face palsy, no dysarthria Psychiatric: A+Ox3, euthymic affect Lymphatic: no cervical or axillary lymphadenopathy Results & Data Vital Signs (Past 12 Hours) Vital Signs Temp Pulse Resp BP Pulse Ox 12/23/18 07:26 94 H 18 92 12/23/18 07:08 36.4 C L 98 H 18 123/80 94 12/23/18 00:32 36.5 C 73 20 103/65 95 PG Care Time/CCT Total # of Minutes Spent Total Time Spent with Patient: Total time spent is greater than 50% in coordination of care (as documented) at patient's floor/unit and/or counseling patient: 45 (1) Alcohol withdrawal Complication of substance-induced condition: with delirium Qualified Code(s): F10.231 - Alcohol dependence with withdrawal delirium
[2018-12-23] MEDS: chlordiazePOXIDE HCl 5 MG CAP PO SCH (11:33)
[2018-12-23] MEDS: LEVALBUTEROL HCL 0.63 MG/3 ML NEB NEB SCH (20:59)
[2018-12-23] MEDS: TAMSULOSIN HCL 0.4 MG CAP PO SCH (21:00)
[2018-12-23] MEDS: GABAPENTIN 400 MG CAP PO SCH (21:03)
[2018-12-24 06:06] LABS: Hematocrit (blood only) 36.2 % (42-52); Hemoglobin 12.1 g/dL (14.0-18.0); Mean Corpuscular Hemoglobin 32.8 pg (25-34); Mean Corpuscular Hgb Conc 33.4 g/dL (32-36); Mean Corpuscular Volume 98.1 fL (80-100); Mean Platelet Volume 9.4 fL (7.4-10.4); Platelet Count 177 K/uL (130-400); RDW Coefficient of Variation 14.2 % (11.5-14.5); RDW Standard Deviation 50.7 fL (36.4-46.3); Red Blood Count 3.69 M/uL (4.7-6.1); White Blood Count 10.43 K/uL (4.8-10.8)
[2018-12-24 06:42] LABS: BUN Creatinine Ratio 21.5 (10-20); Calcium 8.4 mg/dl (8.5-10.1); Creatinine Clr Calc Pharmacy 98.8 ml/min; Est GFR (Non-African American) 94.1; Potassium 3.3 mmol/L (3.5-5.1)
[2018-12-24] MEDS: BUDESONIDE 0.5 MG/2 ML VIAL (PULMICORT) NEB SCH ×2 (07:16→19:32)
[2018-12-24] MEDS: LEVALBUTEROL HCL 0.63 MG/3 ML NEB NEB SCH ×3 (07:16→19:32)
[2018-12-24] MEDS ORDERED: POTASSIUM CHLORIDE 20 MEQ TABCR PO ONE (07:30)
[2018-12-24] MEDS: FLUTICASONE/SALMETEROL (ADVAIR) 500/50 INH 14 PUFF INH SCH ×2 (08:05→20:08)
[2018-12-24] MEDS: AMOXICILLIN/CLAVULANATE 875 MG TAB PO SCH ×2 (08:06→17:26)
[2018-12-24] MEDS: THIAMINE HCL 100 MG TAB PO SCH (08:07)
[2018-12-24] MEDS: predniSONE 20 MG TAB PO SCH (08:07)
[2018-12-24] MEDS: METOPROLOL SUCC 50MG EXT REL TAB PO SCH (08:07)
[2018-12-24] MEDS: VITAMIN B COMPLEX TAB PO SCH (08:08)
[2018-12-24] MEDS: OXcarbazepine 150 MG TABLET PO SCH ×2 (08:08→20:11)
[2018-12-24] MEDS: lisinopriL 10 MG TAB PO SCH (08:08)
[2018-12-24] MEDS: FOLIC ACID 1 MG TAB PO SCH (08:09)
[2018-12-24] MEDS: VENLAFAXINE HCL XR 150 MG CAPXR PO SCH (08:09)
[2018-12-24] MEDS: FOLIC ACID 400 MCG TAB PO SCH (08:09)
[2018-12-24] MEDS: METOPROLOL SUCC 25MG EXT REL TAB PO SCH (08:10)
[2018-12-24] MEDS: ATORVASTATIN 40 MG TAB PO SCH (08:11)
[2018-12-24] MEDS: NICOTINE 7 MG/24 HR TDSY TD SCH (08:11)
[2018-12-24] MEDS: ASPIRIN 81 MG ECTAB PO SCH (08:12)
--- NOTE | 2018-12-24 08:41 | Hospitalist Progress Note ---
Date of Service December 24, 2018 Assessment & Plan (1) COPD exacerbation: * Improving- * Per patient, feels at 70% of baseline-still continuing to have wheezing and cough with sputum production * Given slow improvement, will continue Prednisone 60mg, but will need long taper over the course of weeks * Augmentin- continue- initiated on 12/21 for copd exacerbation and concurrent UTI- total treatment duration 14 days, ending on 01/04. * Schedule nebs QID- switched patient from albuterol to xopenex Q6 while awake last evening due to tachycardia- will need rx as outpatient for home nebulizer * Budesonide BID * Continue home inhalers- Ventolin Hfa * Incentive Spirometry- Educated on proper use of spirometer- continue to use Q1H * May benefit from Carpet Binder/COPD clinic as outpatient- patient agreeable * PT/OT- patient lives in 4th floor of multi-odessa house- per PT note, able to discharge home if goals are met * Monitoring on tele for tachycardia (2) Acute and chronic respiratory failure with hypercapnia: * Improved * Required BiPAP for 3 hours on admission- Initial ABG with pH of 7.26. * O2 sat 93% on 3L currently- may need increased oxygen with activity at discharge- monitor O2 with exertion- will provide CM with Rx- also for nebs * May require outpatient evaluation for PAUL- may benefit from nasal pillows if required as patient intolerant to masks (3) UTI (urinary tract infection): * Improving- patient continues to be afebrile, WBC wnl * UA on admission with > 30 WBC, 3+ leuk esterase, trace blood * CT negative for nephrolithiasis * Repeat UA with trace blood * Urine culture- alpha strep, not enterococcus * Continue Augmentin BID for concurrent treatment of COPD exacerbation and UTI for total treatment duration 14 days, ending on 01/04. * Urology consult- patient given trial of tamsulosin- continue at discharge * Patient will need cystoscopy as outpatient for further workup of hematuria to r/o malignancy (4) Hematuria: * Patient with hematuria for over a month, per patient associated with post void dribbling, incontinence, dysuria, but without no flank pain. * Repeat UA with trace blood, 0-4 RBC * CT with and without contrast of abdomen/pelvis: some blood/clot in bladder, no stones, no masses seen * Dr. Jose Dang- patient agreeable and will need outpatient cystoscopy in follow-up for further evaluation * Continue Flomax 0.4 daily- will continue at discharge (5) Alcohol withdrawal: * Thiamine and Folic Acid supplementation * Ativan IV as needed for withdrawal but has not required at this point * Increased Gabapentin to 400mg TID * Tapering dose of chlordiazepoxide * Patient tachycardic- transferred to telemetry for monitoring * Continue education on importance of abstinence from alcohol (6) Tobacco abuse: * Nicotine patch ordered (7) Essential hypertension: * Stable * Continue Lisinopril 10mg, Metoprolol succinate 75mg (8) Tachycardia: * Stable- * Patient has been running 110-120 this morning while getting cleaned up this AM, was 85 at rest when evaluated * May be multifactoral- switched patient from albuterol to Xopenex nebs Q6 while awake as well as budesonide nebs BID (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 I agree w/ the hurley components of her documentation. I did not personally see the patient today but labs/vitals acceptable today. A/P: 1. COPD exacerbation - cont steroids, nebs, abx. Agree w/ change in albuterol to xopenex to help w/ tachycardia. 2. UTI - improved; finish abx. 3. alcohol abuse - 8+ beers/day. some of the tachycardiac could be withdrawal. Cont gabapentin 400mg TID. Cont ativan prn. 4. tachycardia - as above; cont telemetry; stable. 5. acute/chronic resp failure - acute component 2nd to #1 - resolving. Will need 2-step at d/c to ensure current O2 amount is satisfactory for home. Sofia ESCOBEDO MD Subjective Patient states his breathing is continuing to improve, and states he believes his breathing to be about 70% of baseline. He states he is continuing to have some chest discomfort, which he is able to localize with his finger to left sternal border, without radiation. The patient states he continues to have a cough, productive of yellow/white sputum, which is decreased in quantity. The patient continues to note that he becomes more short of breath more quickly with less exertion over the past several months. He is currently 93% on 3L NC, but states the short distance to the bathroom in the patient room causes him to become winded. Switching nebs from albuterol to xopenex last evening- patient expresses his breathing is better with continued nebulizer treatment. He is still interested in follow-up with a radiator fitter as an outpatient for COPD management. Further discussion regarding outpatient testing for CPAP/BiPAP, which the patient seems agreeable. Review of Systems Constitutional: + fatigue; no fever and no chills Eyes: no diplopia and no eye pain Ear, Nose, Mouth, Throat: no ear pain and no tinnitus Respiratory: + cough, + change in sputum (decreased- still remains yellow/white in color), + dyspnea on exertion and + pain with cough Cardiovascular: + chest pain (localized with finger to left chest wall) Gastrointestinal: no nausea, no vomiting, no constipation and no diarrhea/loose stools Genitourinary: + dysuria and + hematuria (intermittent) Integumentary: no rash and no lesions Neurologic: no syncope and no confusion Physical Exam Eyes: PERRL, conjunctivae normal, anicteric sclerae ENMT: external ear and nose normal, oropharynx normal (top dentures) Neck: trachea midline, no thyromegaly Respiratory: + cough; no respiratory distress, no labored breathing and + not able to speak in complete sentence (at times, patient became winded with prolonged conversation) Auscultation: + crackles (improved after deep cough) and + wheezes (diffuse inpiratory and expiratory) Cardiovascular: Rate/Rhythm: regular rhythm and + tachycardic (100/110s) Heart Sounds: normal S1 and normal S2; no murmur Vessels: no JVD Extremities: + edema (trace bilateral) Gastrointestinal (Abdomen): normal bowel sounds, soft, nontender, no hepatosplenomegaly Musculoskeletal: no cyanosis or clubbing, extremities motor strength 5/5 Skin: no rashes, warm and dry Neurologic: PERRL, EOMI, accommodation nl, no face palsy, no dysarthria Psychiatric: A+Ox3, euthymic affect Lymphatic: no cervical or axillary lymphadenopathy Results & Data Vital Signs (Past 12 Hours) Vital Signs Temp Pulse Resp BP Pulse Ox 12/24/18 07:29 36.8 C 85 20 112/72 93 12/24/18 07:17 84 18 96 12/24/18 04:14 37.2 C 88 21 124/82 93 12/23/18 23:05 36.3 C L 98 H 19 137/93 97 12/23/18 20:59 89 18 95 12/23/18 20:39 36.9 C 97 H 18 131/93 96 PG Care Time/CCT Total # of Minutes Spent Total Time Spent with Patient: Total time spent is greater than 50% in coordination of care (as documented) at patient's floor/unit and/or counseling patient: 45 (1) Alcohol withdrawal Complication of substance-induced condition: with delirium Qualified Code(s): F10.231 - Alcohol dependence with withdrawal delirium
[2018-12-24] MEDS: GABAPENTIN 400 MG CAP PO SCH ×3 (09:01→20:10)
[2018-12-24] MEDS: PREGABALIN 100 MG CAP PO SCH ×2 (09:01→20:16)
[2018-12-24] MEDS: TAMSULOSIN HCL 0.4 MG CAP PO SCH (20:11)
[2018-12-25 05:52] LABS: Hematocrit (blood only) 38.1 % (42-52); Hemoglobin 12.4 g/dL (14.0-18.0); Mean Corpuscular Hgb Conc 32.5 g/dL (32-36); Mean Corpuscular Volume 98.4 fL (80-100); Mean Platelet Volume 9.6 fL (7.4-10.4); Platelet Count 189 K/uL (130-400); RDW Coefficient of Variation 14.4 % (11.5-14.5); RDW Standard Deviation 51.2 fL (36.4-46.3); Red Blood Count 3.87 M/uL (4.7-6.1); White Blood Count 9.63 K/uL (4.8-10.8)
[2018-12-25 06:28] LABS: Calcium 8.1 mg/dl (8.5-10.1); Creatinine Clr Calc Pharmacy 97.5 ml/min; Est GFR (African American) 108.5; Est GFR (Non-African American) 93.6; Potassium 3.8 mmol/L (3.5-5.1)
[2018-12-25] MEDS: LEVALBUTEROL HCL 0.63 MG/3 ML NEB NEB SCH ×2 (07:14→13:02)
[2018-12-25] MEDS: BUDESONIDE 0.5 MG/2 ML VIAL (PULMICORT) NEB SCH (07:14)
[2018-12-25] MEDS: AMOXICILLIN/CLAVULANATE 875 MG TAB PO SCH ×2 (08:02→17:09)
[2018-12-25] MEDS: FLUTICASONE/SALMETEROL (ADVAIR) 500/50 INH 14 PUFF INH SCH (08:02)
[2018-12-25] MEDS: VENLAFAXINE HCL XR 150 MG CAPXR PO SCH (08:03)
[2018-12-25] MEDS: ASPIRIN 81 MG ECTAB PO SCH (08:03)
[2018-12-25] MEDS: FOLIC ACID 1 MG TAB PO SCH (08:03)
[2018-12-25] MEDS: FOLIC ACID 400 MCG TAB PO SCH (08:04)
[2018-12-25] MEDS: ATORVASTATIN 40 MG TAB PO SCH (08:04)
[2018-12-25] MEDS: GABAPENTIN 400 MG CAP PO SCH ×2 (08:04→14:09)
[2018-12-25] MEDS: predniSONE 20 MG TAB PO SCH (08:05)
[2018-12-25] MEDS: METOPROLOL SUCC 25MG EXT REL TAB PO SCH (08:05)
[2018-12-25] MEDS: OXcarbazepine 150 MG TABLET PO SCH (08:06)
[2018-12-25] MEDS: METOPROLOL SUCC 50MG EXT REL TAB PO SCH (08:06)
[2018-12-25] MEDS: VITAMIN B COMPLEX TAB PO SCH (08:07)
[2018-12-25] MEDS: THIAMINE HCL 100 MG TAB PO SCH (08:07)
[2018-12-25] MEDS: lisinopriL 10 MG TAB PO SCH (08:07)
[2018-12-25] MEDS: PREGABALIN 100 MG CAP PO SCH (08:17)
[2018-12-25] MEDS: NICOTINE 7 MG/24 HR TDSY TD SCH (08:18)
--- NOTE | 2018-12-25 10:26 | Hospitalist Progress Note ---
Date of Service December 25, 2018 Assessment & Plan (1) COPD exacerbation: * Improving- still continuing to have wheezing and cough, but decreased sputum production and shortness of breath * Given slow improvement, will continue Prednisone 60mg but will need long taper over the course of weeks * Augmentin- continue- initiated on 12/21 for copd exacerbation and concurrent UTI- total treatment duration 14 days, ending on 01/04. * Schedule nebs QID switched patient from albuterol to xopenex Q6 while awake 12/23 due to tachycardia- rx for nebulizer medication given to nurse navigator. Patient SR 70bpm on telemetry this morning, with ranges of 70-100 overnight. * Budesonide BID, continue home inhalers- Ventolin Hfa * Incentive Spirometry continued use encouraged. Reinforcement on proper use and benefit from continued use * May benefit from Actuary/COPD clinic as outpatient- patient agreeable. Upon further discussion with the patient, he does believe he has seen a PA in pulmonology, possible Iwona Campo, however it has been a long time per patient. * --> Patient set up appointment with [facility] Pulmonology for close * PT/OT- patient lives in multi-story house- per PT note, able to discharge home if goals are met - will discuss with patient's this afternoon regarding safety for discharge (2) Acute and chronic respiratory failure with hypercapnia: * Improved * Required BiPAP for 3 hours on admission- Initial ABG with pH of 7.26. * O2 sat 93% on 3L currently- may need increased oxygen with activity at discharge- monitor O2 with exertion- Rx provided to [facility] navigator * May require outpatient evaluation for PAUL per conversation with regarding sleeping habits and daytime sleepiness- may benefit from nasal pillows if required as patient intolerant to masks- defer to PCP/Actuary as outpatient (3) UTI (urinary tract infection): * Improving- patient continues to be afebrile, WBC wnl * Course: UA on admission with > 30 WBC, 3+ leuk esterase, trace blood. CT negative for nephrolithiasis. Repeat UA with trace blood. Urine culture with alpha strep, not enterococcus. Levaquin during COPD exacerbation switched to Augmentin to cover for both. * Will continue Augmentin BID for concurrent treatment of COPD exacerbation and UTI for total treatment duration 14 days, ending on 01/04. * Urology consult during admission with subsequent trial of tamsulosin- will continue at discharge * Patient will need cystoscopy as outpatient for further workup of hematuria to r/o malignancy- navigator to set up with Dr. Dang (4) Hematuria: * Patient with hematuria for over a month, per patient associated with post void dribbling, incontinence, dysuria, but without no flank pain. Repeat UA with trace blood, 0-[address] with and without contrast of abdomen/pelvis: some blood/clot in bladder, no stones, no masses seen * Dr. Jose Dang- patient agreeable and will need outpatient cystoscopy in follow-up for further evaluation- appointment will be set up by navigator * Continue Flomax 0.4 daily- continue at discharge (5) Alcohol withdrawal: * Thiamine and Folic Acid supplementation * Ativan IV as needed for withdrawal but has not required at this point * Increased Gabapentin to 400mg TID 12/23 * Chlordiazepoxide * Patient tachycardic- transferred to telemetry for monitoring--> patient SR 70- 100bpm since transition from albuterol to xopenex * Continue education on importance of abstinence from alcohol (6) Tobacco abuse: * Nicotine patch * Continued smoking abstinence encouraged (7) Essential hypertension: * Stable- BP currently 116/78 * Continue Lisinopril 10mg, Metoprolol succinate 75mg (8) Tachycardia: * Stable- patient SR 70-100bpm since transition from albuterol to Xopenex * Patient had been running 110-120 on 12/23- subsequently transferred to telemetry for possible EtOH withdrawal * May have been multifactorial- switched patient from albuterol to Xopenex nebs Q6 while awake as well as budesonide nebs BID with improvement (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 I agree w/ the hurley components of her documentation. Pt resting comfortably during my visit. He was discouraged because he knows he will be limited in what he can do at his house (physical activities such as shoveling snow, cutting the lawn, etc). Cough/congestion/dyspnea are similar or modestly improved from yesterday. VSS, o2 sats wnl gen - NAD neck - no JVD heart - tachy (mild), s1 s2 lungs - mild end-exp wheeze; airation improved relative to yesterday abd - soft ext - pulses 2+ b/l A/P: 1. COPD exacerbation - improving. cont steroids, nebs, abx. 2. UTI - improved; finish abx. 3. alcohol abuse - Cont gabapentin 400mg TID. Cont ativan prn. If there is withdrawal it is mild at this time. 4. tachycardia - stable, modestly improved. 5. acute/chronic resp failure - acute component 2nd to #1 - resolving. anticipate d/c tomorrow Sofia ESCOBEDO MD Subjective Patient seen at bedside this morning. Patient in bed eating breakfast comfortably. When asked about how the progression of his breathing, he voices concerns about going home and not feeling like he will be able to breathe. He states he feels comfortable going home with the right plan, including finishing his antibiotics, increasing oxygen with activity, and nebulizer treatment and follow-up with filter tank tender within the week to continue to manage his prednisone taper which is currently at 60mg daily. He states his cough is improved and his sputum production is significantly declined over the past two days. He does continue to have intermittent hematuria, and will need cystoscopy as outpatient. Patient agreeable. Review of Systems Review of Systems: All systems reviewed & are unremarkable except as noted in HPI & below Constitutional: + fatigue; no fever and no chills Eyes: no diplopia and no eye pain Ear, Nose, Mouth, Throat: no tinnitus and no dizziness Respiratory: + cough, + change in sputum (significantly decreased in quantity- no longer yellow), + dyspnea (at baseline) and + dyspnea on exertion Cardiovascular: + dyspnea on exertion; no chest pain (localized with finger to left chest wall) and no edema Gastrointestinal: no nausea, no vomiting, no constipation and no pepper rrhea/loose stools Genitourinary: + hematuria (intermittent); no dysuria Musculoskeletal: + back pain (chronic lumbar spine) Integumentary: no acne, no rash and no lesions Neurologic: no syncope and no abnormal speech Psychiatric: + anxiety (regarding breathing once discharged) Physical Exam Constitutional: WD/WN, vitals as above Eyes: PERRL, conjunctivae normal, anicteric sclerae ENMT: external ear and nose normal, oropharynx normal (top dentures) Neck: trachea midline, no thyromegaly Respiratory: + cough (improved); no respiratory distress, no labored breathing and + not able to speak in complete sentence (at times, patient became winded with prolonged conversation) Auscultation: + crackles (bibasilar, and continues to improve with deep cough) and + wheezes (improving, posterior lung wong >> anterior) Cardiovascular: Rate/Rhythm: regular rate and regular rhythm Heart Sounds: normal S1 and normal S2; no murmur Vessels: no JVD Extremities: + edema (trace bilateral) Gastrointestinal (Abdomen): normal bowel sounds, soft, nontender, no hepatosplenomegaly Musculoskeletal: no cyanosis or clubbing, extremities motor strength 5/5 Skin: no rashes, warm and dry Neurologic: PERRL, EOMI, accommodation nl, no face palsy, no dysarthria Psychiatric: Orientation: alert and oriented x 3 Patient appears preoccupied with the fear of being discharged and becoming short of breath Lymphatic: no cervical or axillary lymphadenopathy Results & Data Vital Signs (Past 12 Hours) Vital Signs Temp Pulse Pulse Resp BP Pulse Ox 12/25/18 07:36 36.7 C 83 20 116/78 91 12/25/18 07:14 83 18 92 12/25/18 03:38 36.3 C L 72 18 117/79 100 12/24/18 23:48 36.4 C L 74 18 117/76 99 12/24/18 22:33 80 Laboratory Results 12/25/18 12/25/18 Range/Units 05:29 05:29 WBC 9.63 (4.8-10.8) K/uL RBC 3.87 L (4.7-6.1) M/uL Hgb 12.4 L (14.0-18.0) g/dL Hct 38.1 L (42-52) % MCV 98.4 (80-100) fL MCH 32.0 (25-34) pg MCHC 32.5 (32-36) g/dL RDW Std Deviation 51.2 H (36.4-46.3) fL RDW Coeff of Jem 14.4 (11.5-14.5) % Plt Count 189 (130-400) K/uL MPV 9.6 (7.4-10.4) fL Sodium 134 L (136-145) mmol/L Potassium 3.8 D (3.5-5.1) mmol/L Chloride 97 L (98-107) mmol/L Carbon Dioxide 34 H (21-32) mmol/L Anion Gap 3.0 (3-11) BUN 18 (7-18) mg/dl Creatinine 0.79 (0.6-1.4) mg/dl Est Cr Clr Drug Dosing 97.5 ml/min Est GFR ( Amer) 108.5 Est GFR (Non-Af Amer) 93.6 BUN/Creatinine Ratio 23.0 H (10-20) Glucose 78 (70-99) mg/dl Calcium 8.1 L (8.5-10.1) mg/dl PG Care Time/CCT Total # of Minutes Spent Total Time Spent with Patient: Total time spent is greater than 50% in coordination of care (as documented) at patient's floor/unit and/or counseling patient: 70 (1) Alcohol withdrawal Complication of substance-induced condition: with delirium Qualified Code(s): F10.231 - Alcohol dependence with withdrawal delirium
[2018-12-25] MEDS ORDERED: ALBUT/IPRATROP 3MG/0.5MG NEB 3 ML VIAL NEB SCH ×2 (15:00→15:45)
[2018-12-25] MEDS ORDERED: BUDESONIDE 0.5 MG/2 ML VIAL (PULMICORT) NEB SCH ×2 (16:00→19:00)
--- NOTE | 2018-12-25 17:53 | Discharge Summary ---
Date of Service December 25, 2018 Admission HPI Per Admitting Provider 67 years old man with past medical history of COPD, essential hypertension, dyslipidemia and alcohol abuse who was in his regular state of health until 3 days prior to admission when he started to develop shortness of breath and generalized wheezing. He also had some dry cough, but denies any sputum production. Denies any runny nose or fever. Patient has chronic respiratory failure secondary to the COPD with 3 L of oxygen at home. He has history of tobacco abuse, used to smoke half a pack a day, he is telling me now that he quit smoking 2 months ago but is asking for a nicotine patch. On arrival to the ED he was found to be in acute on chronic respiratory failure. VBG showed a pH of 7.26, PCO2 of 79. VBG PO2 was 31 He was placed on BiPAP and showed significant improvement. He will be admitted for further evaluation and management Chest x-ray did show COPD and possible some increased bronchovascular markings, may be underlying pulmonary congestion Aside from the shortness of breath he did complain of some chest pain, the left possibly pleuritic in nature. Admission Exam Per Admitting Provider General patient appears to be comfortable, not in acute distress HEENT: Atraumatic , normocephalic /no jaundice /no pallor /anicteric /no dry mucous membrane /normal external ear inspection Neck: Supple /no swelling /central trach Heart: S1/S2 normal/regular rate and rhythm/no gallop /no rub /no murmur Lungs: Decreased air entry bilaterally, generalized wheezing both lung wong, scattered rhonchi, no chest wall tenderness Abdomen: Soft/nontender/no guarding/no rebound/no organomegaly/no pulsatile mass Musculoskeletal: No swelling/no edema/no tenderness/normal range of motion Neuro exam: Awake alert oriented 3/cranial nerves II through XII appear to be intact/sensation intact/moves all extremities/no abnormal movements Psychiatric evaluation: No depressed mood/normal affect Skin: No rash on exposed skin area/no erythema Extremity: Normal pulse/no pitting edema/no clubbing or cyanosis Endocrine/lymphatic: No obvious lymphadenopathy /no lymphedema Principal Diagnosis Acute on Chronic Respiratory Failure, COPD Exacerbation Discharge Exam Constitutional WD/WN, vitals as above Eyes PERRL, conjunctivae normal, anicteric sclerae ENMT external ear and nose normal, oropharynx normal (top dentures) Neck trachea midline, no thyromegaly Respiratory + cough (improved); no respiratory distress and no labored breathing Auscultation: + crackles (bibasilar, and continues to improve with deep cough) and + wheezes (improving, posterior lung wong >> anterior) Cardiovascular Rate/Rhythm: regular rate and regular rhythm Heart Sounds: normal S1 and normal S2; no murmur Vessels: no JVD Extremities: + edema (trace bilateral) Gastrointestinal (Abdomen) normal bowel sounds, soft, nontender, no hepatosplenomegaly Musculoskeletal no cyanosis or clubbing, extremities motor strength 5/5 Skin no rashes, warm and dry Neurologic PERRL, EOMI, accommodation nl, no face palsy, no dysarthria Psychiatric A+Ox3, euthymic affect Orientation: alert and oriented x 3 Lymphatic no cervical or axillary lymphadenopathy Discharge Data Allergies Allergy/AdvReac Type Severity Reaction Status Date / Time No Known Allergies Allergy Unverified 12/30/18 09:39 Consultations 12/19/18 16:23 ED Decision to Admit Stat 12/21/18 12:30 Consult Urology Routine Ordered Studies ABDOMEN AND PELVIS CT WITH AND WITHOUT IV CONTRAST, UROGRAM PROTOCOL- 12/21/18 CT DOSE: 1612.90 mGycm HISTORY: Hematuria x 4 weeks TECHNIQUE: Multiaxial CT images of the abdomen and pelvis were performed both before and after the use of intravenous contrast to evaluate the urinary system. Maximal intensity projection images were performed at the workstation by the radiologist. A dose lowering technique was utilized adhering to the principles of ALARA. COMPARISON STUDY: Abdomen and pelvis CT 09/04/2015. FINDINGS: No renal or ureteral calculi. No hydronephrosis. No suspicious filling defects seen within the opacified bilateral renal collecting systems or ureters. The kidneys enhance normally. Of note, the proximal right ureter and majority of the distal bilateral ureters are not well opacified but are normal in course and caliber. Small linear filling defect seen layering within the bladder posteriorly. This favors left products given the patient's history of hematuria. These do not appear to be adherent to the bladder wall. Small irregular filling defect seen within the 1.5 cm left posterior bladder diverticulum which also favors blood products given the layering appearance. A few bibasilar linear densities consistent with subsegmental atelectasis. Small cluster of tree-in-bud nodular opacities within the base of the left lower lobe with partial opacification of the left lower lobe bronchi. This favors a mild infectious bronchiolitis and could be due to prior aspiration. No pneumoperitoneum. No pneumatosis. Prior internal fixation of a right proximal femoral fracture. Multiple old, healed left-sided rib fractures. 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 There is also a 3.2 x 2.3 cm aneurysm within the proximal to mid superior mesenteric artery best seen on image 150. Tortuous abdominal aorta. There are a few hypodense lesions within the liver with the largest in the right hepatic lobe measuring 1.4 cm. These remain unchanged and is therefore likely benign. Suspect a few tiny gallstones. The unenhanced pancreas and spleen are unremarkable. No retroperitoneal lymphadenopathy. Normal adrenal glands. Left inguinal hernia containing approximately 10 cm of the proximal sigmoid colon. Colonic diverticulosis. No evidence for diverticulitis. No bowel wall thickening or obstruction. Normal appendix. IMPRESSION: 1. No renal or ureteral stones. No hydronephrosis. 2. No suspicious filling defects seen within the opacified bilateral renal collecting systems or ureters. 3. Small linear filling defects layering within the bladder posteriorly and within the 1.5 cm left posterior bladder diverticulum. The appearance favors small areas of blood products/clot given the patient's history of hematuria. However, this should be confirmed with follow-up cystoscopy. 4. 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 Follow-up nonemergent vascular surgery consultation recommended. 5. Moderate size left inguinal hernia containing a segment of the proximal sigmoid colon. No evidence for bowel obstruction. 6. Normal appendix. 7. Colonic diverticulosis. 8. Small focal area of tree-in-bud nodular opacities within the left lower lobe which favors a mild infectious bronchiolitis possibly secondary to aspiration.. 9. Additional findings as described above. Electronically signed by: Kartik Aly M.D. 12/21/2018 3:47 PM XR chest 1V portable 12/19/18 CLINICAL HISTORY: 68 years-old Male presenting with Dyspnea. TECHNIQUE: Portable upright AP view of the chest was obtained. COMPARISON: 04/24/2018. FINDINGS: Atherosclerosis of the aortic arch. Cardiac silhouette normal in size. Diffusely coarsened lung markings. No focal opacity. No large effusion or pneumothorax. View old lower lateral rib rib fractures suggested. Upper abdomen normal. IMPRESSION: 1. Coarsened lung markings could relate to mild congestive change. This is chronic. 2. No focal infiltrate to suggest acute cardiopulmonary disease. Electronically signed by: Jakob Burleson M.D. 12/19/2018 3:43 PM Hospital Course (1) COPD exacerbation: * Improving- still continuing to have wheezing and cough, but decreased sputum production and shortness of breath. Patient with acute on chronic respiratory failure with hypercapnia requiring BiPAP for three hours on admission; initial ABG with pH of 7.26. Patient on home O2 at 3L, 4L with exertion per patient. Given IV steroids with eventual transition to prednisone. Patient requiring 60mg PO daily for continuing shortness of breath. Initiated on empiric levaquin for COPD exacerbation which was transitioned to augmentin for concurrent UTI with evaluation by Urology for intermittent hematuria. Trial of flomax also given and outpatient cystoscopy in follow-up given risk factors. Patient became tachycardic with albuterol nebs QID and was switched to xopenex Q6 while awake with improvement and transferred to telemetry for possible DTs vs albuterol induced tachycardia. * * Discharge barriers included dpatient's continued concern that he is not able to do the things he needs to do like mow the grass without becoming short of breath again and needing to return to the hospital. * Patient has nebulizer at home but denies ever using device- patient arranged for home pack as well as nebulizer treatments for duonebs as outpatient to be delivered at his house sunday12/25/18. Patient educated on importance of medication adherance to ensure maximum medical management for his underlying lung disease; patient agreeable and phone conversation with was had about moving forward with the duonebs and to be further managed my pulmonolgy as outpatient. * Patient previously seen by Iwona MOREL as outpatient but per patient and he has not been seen in quite a while. * Educated on importance of pulmonary follow-up. (2) UTI (urinary tract infection): * UA on admission with > 30 WBC, 3+ leuk esterase, trace blood. CT negative for nephrolithiasis. Repeat UA with trace blood. Urine culture with alpha strep, not enterococcus. Levaquin during COPD exacerbation switched to Augmentin to cover for both. (3) Acute and chronic respiratory failure with hypercapnia: * See above (4) Hematuria: * Patient with hematuria for over a month, per patient associated with post void dribbling, incontinence, dysuria, but without no flank pain. Repeat UA with trace blood, 0-[address] with and without contrast of abdomen/pelvis: some blood/clot in bladder, no stones, no masses seen * Dr. Jose Dang- patient agreeable and will need outpatient cystoscopy in follow-up (5) Alcohol withdrawal: * Without seizures or requirement of ativan. Given chlordiazepoxide. Thiamine and Folic Acid supplementation. Educated on importance of abstinence from alcohol at length. 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, also with smaller aneurysm of celiac * Radiology recommended routine follow up with vascular surgery for their recommendations Total Time Total Time Spent Total Time Spent (In Minutes): 90 Total Time Includes: Examination of the Patient, Discharge Planning, Medication Reconciliation, Communication With Other Providers and Other (communication with family) Discharge Plan Discharge Items Patient Disposition: Home - Self-Care Reason For Visit: ACUTE ON CHRONIC RESPIRATORY FAILURE W/ HYPOXEMIA Discharge Diagnosis: COPD Exacerbation Goals: To improve quality of life To improve shortness of breath To provide close follow-up and slow discontinuation of oral steroids Activity: As commented below Activity Comment: As tolerated with cane Exercise/Sports: Gradually increase as tolerated Exercise Comment: Avoid mowing lawn or other strenous activity for next 2-3 weeks Weightbearing Comment: As tolerated Non-emergency contact: Primary Care Provider Call non-emergency contact if: you have any medication questions and your symptoms worsen Follow-up/Referrals: Will Mendoza PA-C [Physician Disability Coordinator] - 01/03/19 10:15 am (Please, follow up at [facility] Pulmonology Office with Ovidio Mendoza PA-C on SundayJanuary 03 at 10:15 am. *The office is located in [address] of [facility] [place]. This is the big building next to this hospital. If you need to change this appointment, call the office at [phone].) Russell Dang, DO [Primary Care Provider] - 12/30/18 9:15 am (Please, follow up with Dr. Russell Dang on SundayDecember 30 at 9:15 am. *If you need to change this appointment, call the office at [phone].) Diet: Heart Healthy Addtl Attending Provider Instructions: -You are being provided a home prescription pack for Duonebs (albuterol/xopenex) for your nebulizer at home until your prescription is delivered on Sunday to your home. -You are also being provided a prescription for prednisone, 60mg, which you have been taking while you have been in the hospital. Take 3 tablets (60 mg) orally daily days 1-3, then decrease to 2 1/2 tablets (50mg) daily x3 days, then 2 tablets (40mg) daily x3 days, followed by 1 1/2 tablets (30mg) x3 days, followed by 1 tablet (20mg) daily x3 days, followed by 1/2 tablet x3 days for total course of 17 days. -Please note that with COPD flare up, it may take several weeks for you to begin to feel back to your baseline. - You have also been provided a prescription for Augmentin, which you have also been getting during your hospitalization for treatment of urinary tract infection as well as for your COPD. Please complete full course of antibiotics as prescribed. You may want to start on a probiotic to prevent abdominal discomfort or resultant infection. -You will be scheduled with Urologist Dr. Jose Dang for an outpatient appointment. If you do not hear anything by 12/30, please call their office for outpatient cystoscopy. -You have an appointment with Pulmonology, Will Mendoza, for follow up and management of your COPD. Please keep this appointment, as it is very important for close follow-up and gradual decrease in your prednisone. - You have an appointment with Dr. Kaleb Dang, your primary care doctor, on December 30 at 9:15. - Encouraged to continue to abstain from tobacco use to improve lung function and decrease risk. Also encouraged to reduce/abstain from alcohol usage. - Please return to the Emergency Room if you are having worsening shortness of breath or with any other symptoms that are concerning for you. Pending Studies at Discharge: No Visit Report Forms: Smoking Cessation Stand-Alone Forms: My [facility] Medications and DC Order Prescriptions: New tamsulosin 0.4 mg capsule 0.4 mg PO HS Qty: 30 RF: 1 prednisone 20 mg Tablet See Rx Instructions .ROUTE .COMPLEX Qty: 32 RF: 0 amoxicillin-pot clavulanate [Augmentin] 875-125 mg tablet 1 tab PO BID Qty: 11 RF: 0 Continued fluticasone propion-salmeterol [Advair Diskus] 500-50 mcg/dose blister with device 1 puffs INH BID RF: 0 metoprolol succinate [Toprol XL] 25 mg tablet extended release 24 hr 25 mg PO DAILY RF: 0 ipratropium-albuterol 0.5 mg-3 mg(2.5 mg base)/3 mL solution for nebulization 3 ml INH QID PRN (Reason: shortness of breath or wheezing) RF: 0 albuterol sulfate 90 mcg/actuation HFA aerosol inhaler 1 - 2 puff INHALATION Q4H PRN (Reason: Shortness Of Breath) Qty: 18 RF: 1 atorvastatin 40 mg tablet 40 mg PO DAILY RF: 0 folic acid 400 mcg tablet 0.4 mg PO DAILY RF: 0 lisinopril 10 mg tablet 10 mg PO DAILY RF: 0 oxcarbazepine 300 mg tablet 300 mg PO BID RF: 0 vitamin B complex-folic acid 2,000 mcg capsule 1 cap PO DAILY RF: 0 venlafaxine 150 mg capsule,extended release 24hr 150 mg PO DAILY RF: 0 pregabalin 100 mg capsule 100 mg PO BID Qty: 60 RF: 0 metoprolol succinate 50 mg tablet extended release 24 hr 50 mg PO DAILY Qty: 30 RF: 0 gabapentin 100 mg capsule 300 mg PO TID Qty: 180 RF: 0 No Action Adult Probiotic 3 billion cell capsule 3,000 mmu cells PO DAILY RF: 0 furosemide 20 mg tablet 20 mg PO BID Qty: 30 RF: 0 nicotine 14 mg/24 hr patch 24 hour 1 patch TD DAILY Qty: 14 RF: 0 Discharge Orders: Discharge Order (Routine); Ordered 12/25/18 Ordered By: Anya Montoya Admission Data Admit Date/Time: 12/19/18 18:51 Attending Provider: Ish Kern Admit Provider: Tonja Marks Primary Care Provider: Russell Dang Other Providers: Tonja Marks ; Jose Dang I. Other Interventions: Discharge Summary Assessment (RN) Last Done: 12/25/18 17:59 DC Date/Time DO NOT enter until pt leaves facility: 12/25/18 19:04 Supervising Physician Co-Signing Physician Notes Attending Attestation and Discharge Note: Pt seen/examined, chart reviewed, discharge care plan d/w PA Anya Montoya. I agree w/ the hurley components of her discharge documentation. 68yo male with long-standing tobacco & alcohol dependence, COPD, and chronic hypoxic resp failure on home O2 who presented with COPD exacerbation. Course complicated by UTI and hematuria as well. Treated with IV steroids, antibiotics, nebs, supportive care. Seen by urology for hematuria - to have outpatient cystoscopy. Pulmonary symptoms gradually improved with time with the above. 2-step o2 test at discharge demonstrated he needs 2 L NC O2 with activity (no increase in O2 requirements fortunately). He was counseled to cut down on his etoh intake and to quit smoking if possible. He will finish a prolonged prednisone taper and his antibiotics. Arrangements have been made for PCP follow-up as well as pulmonary consultation as outpatient. VSS, o2 sats wnl gen - NAD, a bit anxious neck - no JVD heart - tachy (mild), s1 s2 lungs - mild end-exp wheeze; airation improved relative to prior exams abd - soft, NT ext - pulses 2+ b/l ISH KERN MD
== END 2018-12-25 19:04 | disposition home or self-care (01) | DRG 190 ==
LOC: ED 14:25 → SUATTDRO 18:51 → 2S 18:51 → 3N 12-21 14:44 → 2N 12-23 19:48

== ENCOUNTER 2019-01-09 20:15 | Inpatient (IN) ==
[2019-01-09] MEDS ORDERED: SODIUM CHLORIDE 0.9% 500 ML IV ONE ×2 (20:49→22:18)
[2019-01-09] MEDS ORDERED: THIAMINE HCL 100 MG in SYRINGE 9 ML IV STA (21:09)
[2019-01-09] MEDS ORDERED: MULTI-VITAMIN INFUSION 10 ML, THIAMINE HCL 100 MG, FOLIC ACID 1 MG in SODIUM CHLORIDE 0... IV ONE (21:09)
--- NOTE | 2019-01-09 21:10 | XRay Report ---
XR chest 1V portable HISTORY: 68 years-old Male Sepsis acute sepsis COMPARISON: Chest radiograph 12/19/2018 TECHNIQUE: Portable AP view of the chest FINDINGS: Cardiomediastinal and hilar silhouettes are unchanged. Chronic interstitial coarsening with mild desc ending thoracic tortuosity. No pneumothorax, pleural effusion or overt pulmonary edema. Minimal left basilar opacities suggest probable atelectasis. Degenerative changes of the shoulders and spine. IMPRESSION: No acute process. The above report was generated using voice recognition software. It may contain grammatical, syntax o r spelling errors. Electronically signed by: Jim Portillo M.D. 01/09/2019 9:08 PM
[2019-01-09 21:39] LABS: Hematocrit (blood only) 38.3 % (42-52); Hemoglobin 13.6 g/dL (14.0-18.0); Mean Corpuscular Hemoglobin 32.9 pg (25-34); Mean Corpuscular Hgb Conc 35.5 g/dL (32-36); Mean Corpuscular Volume 92.5 fL (80-100); Mean Platelet Volume 10.2 fL (7.4-10.4); Platelet Count 205 K/uL (130-400); RDW Coefficient of Variation 13.6 % (11.5-14.5); RDW Standard Deviation 46.1 fL (36.4-46.3); Red Blood Count 4.14 M/uL (4.7-6.1); White Blood Count 23.48 K/uL (4.8-10.8)
[2019-01-09 21:42] LABS: Base Excess VBG 9.8 mEq/L; HCO3 VBG 37 mmol/L; Oxygen Saturation VBG < 60.0 %; PCO2 VBG 59 mmHg (38-50); PO2 VBG 22 mmHg; pH VBG 7.41 (7.36-7.41)
[2019-01-09] MEDS ORDERED: PIPERACILLIN/TAZOBACTAM 4.5 GM/120 ML BAG IV ONE (21:43)
[2019-01-09] MEDS ORDERED: VANCOMYCIN CONSULT ACTIVE PRN (21:43)
[2019-01-09] MEDS ORDERED: PIPERACILL/TAZOBAC CONSULT ACTIVE PRN (21:43)
[2019-01-09] MEDS ORDERED: VANCOMYCIN HCL 1,750 MG in SODIUM CHLORIDE 0.9% 500 ML IV ONE (21:43)
[2019-01-09 22:15] LABS: Albumin Level 3.4 gm/dl (3.4-5.0); BUN Creatinine Ratio 14.7 (10-20); Bilirubin Direct 0.4 mg/dl (0-0.2); Bilirubin,Total 1.2 mg/dl (0.2-1); Calcium 8.7 mg/dl (8.5-10.1); Creatinine Clr Calc Pharmacy 51.7 ml/min; Est GFR (African American) 54.6; Est GFR (Non-African American) 47.1; Globulin 3.4 gm/dl (2.5-4.0); Magnesium 1.9 mg/dl (1.8-2.4); Phosphorus 3.5 mg/dl (2.5-4.9); Potassium 3.4 mmol/L (3.5-5.1); Thyroid Stimulating Hormone 0.498 uIu/ml (0.300-4.500); Total Protein 6.8 gm/dl (6.4-8.2)
[2019-01-09] MEDS ORDERED: SODIUM CHLORIDE 3 % 100 ML IV STA (22:24)
[2019-01-09 22:53] LABS: Basophils # (auto) 0.01 K/uL (0-0.2); Eosinophils # (auto) 0.02 K/uL (0-0.5); Eosinophils % (auto) 0.1 %; Immature Granulocytes # (auto) 0.05 K/uL (0.00-0.02); Immature Granulocytes % (auto) 0.2 %; Lymphocytes # (auto) 0.47 K/uL (1.2-3.4); Monocytes # (auto) 0.65 K/uL (0.11-0.59); Monocytes % (auto) 2.8 %; Neutrophils # (auto) 22.28 K/uL (1.4-6.5); Neutrophils % (auto) 94.9 %
[2019-01-09 23:11] LABS: Prothrombin Time 10.4 Seconds (9.0-12.0)
[2019-01-09] MEDS ORDERED: IOVERSOL 100ml IV PRN (23:52)
[2019-01-10 01:13] LABS: Appearance Urine Clear (Clear); Bacteria Urine Automated 2+ (Negative); Bilirubin Urine Negative (Negative); Blood Urine Negative (Negative); Color Urine Yellow; Epithelial Cell Urine Auto >30 /lpf (0-5); Glucose Urine UA Negative (Negative); Ketones Urine Trace (Negative); Leukocyte Esterase Urine 1+ (Negative); Nitrite Urine Positive (Negative); Protein Urine Trace (Negative); RBC Urine Automated 0-4 /hpf (0-4); Specific Gravity Urine 1.018 (1.000-1.030); Urobilinogen Urine Negative (Negative); pH Urine 6.5 (4.5-7.5)
[2019-01-10 01:28] LABS: iSTAT Creatinine 1.5 mg/dl (0.6-1.3); iSTAT Hemoglobin 10.9 g/dl (14.0-18.0); iSTAT Ionized Calcium 0.95 mmol/l (1.12-1.32); iSTAT Potassium 3.3 mEq/L (3.3-5.0)
--- NOTE | 2019-01-10 01:53 | Emergency Department Note ---
Entered by Shukri Sadler acting as a scribe for Khalif Ha MD History of Present Illness General Chief complaint: Altered Mental Status Time Seen by Provider: 01/09/19 20:34 Source: family History of Present Illness Onset (ago): day(s) (few) Location: upper extremity, lower extremity, left and right Pain Consistency: + other (worsening) Quality: + other (weakness) Associated symptoms: + cough and + other (swelling and redness to the legs) The patient is a 68 y/o male who presents to the ED w/ CC of worsening weakness to his extremities beginning a few days ago. The patient's states he was hospitalized for pneumonia and was discharged 1.5 weeks ago. She reports he has almost finished his antibiotics. The notes he has no strength to his arms and legs, could not get up to use the restroom today, and fell yesterday. She also notes since his discharge his legs are more swollen, and he has developed redness to his legs and a cough. She states he is normally on 4L of oxygen. The reports he used to smoke but stopped. She notes he also drinks about 10 beers a day. The states he has not withdrawn from not having alcohol before, and he did not while he was in the hospital. She reports she does not know if he was medicated while in the hospital. The notes he did not drink alcohol today. She states a history of seizures, but she notes they were not from alcohol withdraw. Home Medications Home Medications Medication Instructions Recorded Confirmed Type gabapentin 100 mg capsule 300 mg PO TID #180 cap 11/19/18 01/10/19 History pregabalin 100 mg capsule 100 mg PO BID #60 cap 12/04/18 01/10/19 History metoprolol succinate ER 25 mg 25 mg PO DAILY 12/06/18 01/10/19 History tablet,extended release 24 hr metoprolol succinate ER 50 mg 50 mg PO DAILY #30 tab 12/06/18 01/10/19 History tablet,extended release 24 hr albuterol sulfate HFA 90 1 - 2 puff INHALATION Q4H PRN #18 12/13/18 01/10/19 Rx mcg/actuation aerosol inhaler gm atorvastatin 40 mg tablet 40 mg PO HS 12/13/18 01/10/19 History folic acid 400 mcg tablet 0.4 mg PO DAILY 12/13/18 01/10/19 History lisinopril 10 mg tablet 10 mg PO DAILY 12/13/18 01/10/19 History oxcarbazepine 300 mg tablet 300 mg PO BID 12/13/18 01/10/19 History venlafaxine ER 150 mg 150 mg PO DAILY 12/13/18 01/10/19 History capsule,extended release 24 hr vitamin B complex-folic acid 2,000 1 cap PO DAILY 12/13/18 01/10/19 History mcg capsule fluticasone propion-salmeterol 1 inh INHALATION DIRECTED 01/10/19 01/10/19 History [Advair Diskus] Allergies Allergy/AdvReac Type Severity Reaction Status Date / Time No Known Allergies Allergy Verified 01/10/19 00:10 Past Med/Surg History Medical History Face lacerations (Acute) Neuropathy (Chronic) Hypertension (Chronic) Alcohol abuse (Chronic) COPD (chronic obstructive pulmonary disease) (Chronic) Anemia (Acute) Tremor Gross hematuria H/O tooth extraction Lower teeth on 04/23/2018 Hyperlipidemia Slowing of urinary stream Surgical History S/P foot surgery Family History Father Hypertension Aneurysm Mother Swelling Other No significant family history Social History Preferred Language: Niuean Communication Ability: Effective Sleeve Separator Required: No Beliefs That Will Affect Care: None Current Living Situation: Spouse Other Information That Helps Us Care for You: No Feels Safe at Home: Yes Safety Concerns: Feels Safe At This Time Smoking Status: Former smoker Tobacco Type: cigarettes ; Cigarettes Per Day: 10 ; Do You Dip or Chew Tobacco: No ; Second Hand Exposure: No ; Hx Alcohol Use: Yes Alcohol type: beer Alcohol Intake Frequency Comment: 8+ per day Hx Substance Use: No Review of Systems See HPI for pertinent positives & negatives. and A total of 10 systems reviewed and were otherwise negative Physical Exam Vital Signs Vital Signs - 24 hr 01/09/19 20:24 01/09/19 20:39 01/09/19 20:42 Temperature 37.2 C Temperature Source Oral Sepsis Recent Fever Within 48 Hours No Sepsis New/Unexplained Change in Mental Status Yes Sepsis Action Taken by Nursing No Action Required Pulse Rate 108 H 102 H 100 H Pulse Rate [Right Finger] Pulse Rate from SpO2 Sensor 104 H 100 H Respiratory Rate 16 20 19 Respiratory Effort / Characteristics Respiratory Depth Respiratory Pattern Blood Pressure 99/69 L 90/66 L Blood Pressure [Right Arm] Blood Pressure Mean 79 74 Blood Pressure Mean [Right Arm] Blood Pressure Position [Right Arm] Pulse Oximetry 89 L 98 99 Oxygen Delivery Method Room Air 01/09/19 20:45 01/09/19 21:00 01/09/19 21:15 Temperature Temperature Source Sepsis Recent Fever Within 48 Hours Sepsis New/Unexplained Change in Mental Status Sepsis Action Taken by Nursing Pulse Rate 101 H 101 H 100 H Pulse Rate [Right Finger] Pulse Rate from SpO2 Sensor 101 H 101 H 100 H Respiratory Rate 18 19 15 Respiratory Effort / Characteristics Respiratory Depth Respiratory Pattern Blood Pressure 89/59 L 93/61 L 89/61 L Blood Pressure [Right Arm] Blood Pressure Mean 69 71 70 Blood Pressure Mean [Right Arm] Blood Pressure Position [Right Arm] Pulse Oximetry 99 97 98 Oxygen Delivery Method 01/09/19 21:30 01/09/19 21:45 01/09/19 22:00 Temperature Temperature Source Sepsis Recent Fever Within 48 Hours Sepsis New/Unexplained Change in Mental Status Sepsis Action Taken by Nursing Pulse Rate 96 H 95 H 99 H Pulse Rate [Right Finger] Pulse Rate from SpO2 Sensor 97 H 95 H 99 H Respiratory Rate 14 15 16 Respiratory Effort / Characteristics Respiratory Depth Respiratory Pattern Blood Pressure 80/57 L 89/59 L 81/57 L Blood Pressure [Right Arm] Blood Pressure Mean 64 69 65 Blood Pressure Mean [Right Arm] Blood Pressure Position [Right Arm] Pulse Oximetry 97 99 98 Oxygen Delivery Method 01/09/19 22:15 01/09/19 22:21 01/09/19 22:30 Temperature Temperature Source Sepsis Recent Fever Within 48 Hours Sepsis New/Unexplained Change in Mental Status Sepsis Action Taken by Nursing Pulse Rate 94 H 94 H 88 Pulse Rate [Right Finger] Pulse Rate from SpO2 Sensor 95 H 93 H 88 Respiratory Rate 17 15 16 Respiratory Effort / Characteristics Respiratory Depth Respiratory Pattern Blood Pressure 84/60 L 93/61 L Blood Pressure [Right Arm] Blood Pressure Mean 68 71 Blood Pressure Mean [Right Arm] Blood Pressure Position [Right Arm] Pulse Oximetry 100 97 99 Oxygen Delivery Method 01/09/19 23:18 01/09/19 23:20 01/09/19 23:30 Temperature Temperature Source Sepsis Recent Fever Within 48 Hours Sepsis New/Unexplained Change in Mental Status Sepsis Action Taken by Nursing Pulse Rate 87 Pulse Rate [Right Finger] 88 Pulse Rate from SpO2 Sensor 86 Respiratory Rate 15 18 Respiratory Effort / Characteristics Non-Labored Spontaneous Respiratory Depth Normal Respiratory Pattern Regular Blood Pressure 87/54 L 89/55 L Blood Pressure [Right Arm] 87/54 L Blood Pressure Mean 65 66 Blood Pressure Mean [Right Arm] 65 Blood Pressure Position [Right Arm] Lying Pulse Oximetry 97 97 Oxygen Delivery Method Room Air 01/09/19 23:49 01/10/19 00:30 01/10/19 00:45 Temperature Temperature Source Sepsis Recent Fever Within 48 Hours Sepsis New/Unexplained Change in Mental Status Sepsis Action Taken by Nursing Pulse Rate 95 H 89 91 H Pulse Rate [Right Finger] Pulse Rate from SpO2 Sensor 91 H 89 92 H Respiratory Rate 16 18 21 Respiratory Effort / Characteristics Respiratory Depth Respiratory Pattern Blood Pressure 116/71 107/68 85/55 L Blood Pressure [Right Arm] Blood Pressure Mean 86 81 65 Blood Pressure Mean [Right Arm] Blood Pressure Position [Right Arm] Pulse Oximetry 97 91 98 Oxygen Delivery Method 01/10/19 01:00 01/10/19 01:15 Temperature Temperature Source Sepsis Recent Fever Within 48 Hours Sepsis New/Unexplained Change in Mental Status Sepsis Action Taken by Nursing Pulse Rate 80 86 Pulse Rate [Right Finger] Pulse Rate from SpO2 Sensor 80 80 Respiratory Rate 13 16 Respiratory Effort / Characteristics Respiratory Depth Respiratory Pattern Blood Pressure 99/60 L 96/67 L Blood Pressure [Right Arm] Blood Pressure Mean 73 76 Blood Pressure Mean [Right Arm] Blood Pressure Position [Right Arm] Pulse Oximetry 99 100 Oxygen Delivery Method GENERAL: Awake, alert, ill-appearing, in no distress HENT: Normocephalic, atraumatic. Oropharynx with dry mucous membranes and oth erwise unremarkable. EYES: Normal conjunctiva. Sclera non-icteric. NECK: Supple. No nuchal rigidity. FROM. No JVD. RESPIRATORY: Scant intermittent wheeze, otherwise clear. CARDIAC: Tachycardic rate, normal rhythm. Extremities warm and well perfused. Pulses equal. ABDOMEN: Soft, non-distended. Mild upper abdominal tenderness. No rebound or guarding. No masses. RECTAL: Deferred. MUSCULOSKELETAL: Chest examination reveals no tenderness. The back is symmetrical on inspection without obvious abnormality. There is no CVA tenderness to palpation. No joint edema. LOWER EXTREMITIES: Calves with 1+ BLE with erythema warmth and ttp. NEURO: No focal sensory or motor deficits noted. Drowsy but arousable to voice answers most questions appropriately and follows commjands. 4/5 strength x4 extremities. SKIN: Warm and dry. No jaundice noted. Course 2041: Past medical records reviewed. The patient was evaluated in room A10. A complete history and physical exam was performed. 0031: Upon reevaluation, the patient is resting comfortably. I discussed laboratory and radiographic results with him. He verbalized agreement of the treatment plan. The patient will be evaluated for further management and care. 0045: I reviewed the patient's case with Dr. Wang, [facility] Hospitalist. He will evaluate the patient for further management. Administered Medications Folic Acid (Folvite) 400 mcg PO DAILY [facility] Stop: 02/09/19 08:59 Last Admin: 01/10/19 08:24 Dose: 400 mcg Documented by: [id number] Gabapentin (Neurontin) 300 mg PO TID [facility] Stop: 02/09/19 08:59 Last Admin: 01/10/19 13:37 Dose: 300 mg Documented by: [id number] Admin: 01/10/19 08:25 Dose: 300 mg Documented by: [id number] Heparin Sodium (Porcine) (Heparin Sodium (Porcine)) 5,000 units SQ Q8 [facility] Stop: 02/09/19 07:29 Last Admin: 01/10/19 13:37 Dose: 5,000 units Documented by: [id number] Cosigned by: [id number] Admin: 01/10/19 08:24 Dose: 5,000 units Documented by: [id number] Cosigned by: [id number] Piperacillin Sod/Tazobactam (Sod 3.375 gm/ Dextrose) 115 mls @ 28.75 mls/hr IV Q8H [facility]BBY; Protocol Stop: 01/20/19 03:59 Last Admin: 01/10/19 13:36 Dose: 28.8 mls/hr Documented by: [id number] Infusion: 01/10/19 08:21 Dose: 0 mls/hr Documented by: [id number] Admin: 01/10/19 04:21 Dose: 28.8 mls/hr Documented by: [id number] Vancomycin HCl 1,250 mg/ (Sodium Chloride) 275 mls @ 125 mls/hr IV Q14H [facility] Stop: 01/20/19 09:59 Last Infusion: 01/10/19 12:52 Dose: 0 mls/hr Documented by: [id number] Admin: 01/10/19 10:15 Dose: 125 mls/hr Documented by: [id number] Lactated Ringer's (Lr) 1,000 mls @ 125 mls/hr IV .Q8H [facility] Stop: 02/09/19 08:59 Last Admin: 01/10/19 10:14 Dose: 125 mls/hr Documented by: [id number] Norepinephrine Bitartrate 8 mg (/ Dextrose) 508 mls @ 6.42 mls/hr IV .Q24H DEBBY; Protocol Stop: 02/09/19 13:11 Last Titration: 01/10/19 15:07 Dose: 0.02 mcg/kg/min, 6.4 mls/hr Documented by: [id number] Cosigned by: [id number] Titration: 01/10/19 14:24 Dose: 0.02 mcg/kg/min, 6.4 mls/hr Documented by: [id number] Titration: 01/10/19 13:49 Dose: 0.03 mcg/kg/min, 9.6 mls/hr Documented by: [id number] Admin: 01/10/19 13:34 Dose: 0.05 mcg/kg/min, 16 mls/hr Documented by: [id number] Cosigned by: [id number] Potassium Chloride (K Chris / Wtr) 10 meq in 100 mls @ 100 mls/hr IV Q1H [facility] Stop: 01/10/19 18:44 Last Admin: 01/10/19 16:23 Dose: 100 mls/hr Documented by: [id number] Infusion: 01/10/19 16:23 Dose: 100 mls/hr Documented by: [id number] Admin: 01/10/19 15:27 Dose: 100 mls/hr Documented by: [id number] Ioversol (Optiray 320 100ml) 100 ml IV ONCE PRN PRN Reason: Interaction Checking Stop: 01/13/19 23:51 Last Admin: 01/09/19 23:52 Dose: 92 ml Documented by: [id number] Metoprolol Succinate (Toprol Xl) 25 mg PO DAILY [facility] Stop: 02/09/19 08:59 Last Admin: 01/10/19 08:22 Dose: Not Given Documented by: [id number] Metoprolol Succinate (Toprol Xl) 50 mg PO DAILY [facility] Stop: 02/09/19 08:59 Last Admin: 01/10/19 08:22 Dose: Not Given Documented by: [id number] Oxcarbazepine (Trileptal) 300 mg PO BID [facility] Stop: 02/09/19 08:59 Last Admin: 01/10/19 08:25 Dose: 300 mg Documented by: [id number] Pantoprazole Sodium (Protonix) 40 mg PO QAM [facility] Stop: 02/09/19 08:59 Last Admin: 01/10/19 08:24 Dose: 40 mg Documented by: [id number] Pregabalin (Lyrica) 100 mg PO BID [facility] Stop: 02/09/19 08:59 Last Admin: 01/10/19 08:29 Dose: 100 mg Documented by: [id number] Fluticasone/Salmeterol (Advair Diskus 500/50) 1 puffs INH BID [facility] Stop: 02/09/19 08:59 Last Admin: 01/10/19 08:22 Dose: 1 puffs Documented by: [id number] Thiamine HCl (Vitamin B-1) 100 mg PO QAM [facility] Stop: 02/09/19 08:59 Last Admin: 01/10/19 08:25 Dose: 100 mg Documented by: [id number] Venlafaxine HCl (Effexor Extended Release) 150 mg PO DAILY [facility] Stop: 02/09/19 08:59 Last Admin: 01/10/19 08:25 Dose: 150 mg Documented by: [id number] Vitamin B Complex (Vitamin B Complex) 1 tab PO DAILY [facility] Stop: 02/09/19 08:59 Last Admin: 01/10/19 08:25 Dose: 1 tab Documented by: [id number] Discontinued Medications Sodium Chloride (Nss) 500 mls @ 999 mls/hr IV .Q31M ONE Stop: 01/09/19 21:19 Last Infusion: 01/09/19 22:15 Dose: 0 mls/hr Documented by: [id number] Admin: 01/09/19 21:44 Dose: 999 mls/hr Documented by: [id number] Multivitamins 10 ml/ Thiamine HCl 100 mg/ Folic Acid 1 mg/Sodium Chloride 1,011.2 mls @ 1,011.2 mls/hr IV .Q1H ONE Stop: 01/09/19 22:08 Last Infusion: 01/09/19 23:19 Dose: 0 mls/hr Documented by: [id number] Admin: 01/09/19 21:54 Dose: 1,011.2 mls/hr Documented by: [id number] Thiamine HCl 100 mg/ Syringe 10 mls @ 2 mls/min IV NOW STA Stop: 01/09/19 21:13 Last Admin: 01/09/19 21:55 Dose: 2 mls/min Documented by: [id number] Piperacillin Sod/Tazobactam Sod (Zosyn) 4.5 gm in 120 mls @ 240 mls/hr IV NOW ONE Stop: 01/09/19 22:12 Last Infusion: 01/09/19 23:19 Dose: 0 mls/hr Documented by: [id number] Admin: 01/09/19 21:55 Dose: 240 mls/hr Documented by: [id number] Vancomycin HCl 1,750 mg/ (Sodium Chloride) 535 mls @ 200 mls/hr IV NOW ONE Stop: 01/10/19 00:23 Last Infusion: 01/10/19 01:04 Dose: 0 mls/hr Documented by: [id number] Admin: 01/09/19 22:25 Dose: 200 mls/hr Documented by: [id number] Sodium Chloride (Nss) 500 mls @ 999 mls/hr IV .Q31M ONE Stop: 01/09/19 22:48 Last Infusion: 01/09/19 23:19 Dose: 0 mls/hr Documented by: [id number] Admin: 01/09/19 22:25 Dose: 999 mls/hr Documented by: [id number] Sodium Chloride (Hypertonic Saline 3%) 100 mls @ 30 mls/hr IV .Q3H20M STA; Protocol Stop: 01/10/19 01:43 Last Infusion: 01/10/19 03:02 Dose: 0 mls/hr Documented by: [id number] Cosigned by: [id number] Admin: 01/09/19 23:18 Dose: 30 mls/hr Documented by: [id number] Cosigned by: [id number] Lactated Ringer's (Lr) 1,000 mls @ 999 mls/hr IV .Q1H1M ONE Stop: 01/10/19 12:03 Last Infusion: 01/10/19 12:19 Dose: 0 mls/hr Documented by: [id number] Admin: 01/10/19 11:08 Dose: 999 mls/hr Documented by: [id number] Potassium Chloride (Klor-Con M20) 40 meq PO NOW STA Stop: 01/10/19 08:53 Last Admin: 01/10/19 10:14 Dose: 40 meq Documented by: [id number] Medical Decision Making Differential Diagnosis Differential Diagnosis includes but is not limited to dehydration, stroke, anemia, hypoglycemia, hyponatremia, hypernatremia, urinary tract infection, pneumonia, bronchitis, sepsis, gastroenteritis, additional abdominal pathology, metabolic abnormalities and infections. Medical Records Attestation: I reviewed the patient's medical records. Home Medications Current Medication List: was personally reviewed by me Laboratory Data Attestation: I reviewed the patient's lab results. Result diagrams: 01/10/19 04:11 01/10/19 12:28 Lab Results 01/09/19 01/09/19 01/09/19 Range/Units 20:24 21:17 21:27 WBC 23.48 H (4.8-10.8) K/uL RBC 4.14 L (4.7-6.1) M/uL Hgb 13.6 L (14.0-18.0) g/dL POC Hgb 14.6 (14.0-18.0) g/dl Hct 38.3 L (42-52) % POC Hct 43 (42-52) % MCV 92.5 (80-100) fL MCH 32.9 (25-34) pg MCHC 35.5 (32-36) g/dL RDW Std Deviation 46.1 (36.4-46.3) fL RDW Coeff of Jem 13.6 (11.5-14.5) % Plt Count 205 (130-400) K/uL MPV 10.2 (7.4-10.4) fL Immature Gran % (Auto) 0.2 % Neut % (Auto) 94.9 % Lymph % (Auto) 2.0 % [place] % (Auto) 2.8 % Eos % (Auto) 0.1 % Baso % (Auto) 0.0 % Immature Gran # (Auto) 0.05 H (0.00-0.02) K/uL Neut # (Auto) 22.28 H (1.4-6.5) K/uL Lymph # (Auto) 0.47 L (1.2-3.4) K/uL [place] # (Auto) 0.65 H (0.11-0.59) K/uL Eos # (Auto) 0.02 (0-0.5) K/uL Baso # (Auto) 0.01 (0-0.2) K/uL PT INR APTT PTT Ratio VBG pH (7.36-7.41) VBG pCO2 (38-50) mmHg VBG pO2 mmHg VBG HCO3 mmol/L VBG O2 Saturation % VBG Base Excess mEq/L Barometric Pressure mm/Hg POC Sodium 117 L* (135-144) mEq/L Sodium (136-145) mmol/L POC Potassium 3.4 (3.3-5.0) mEq/L Potassium (3.5-5.1) mmol/L POC Chloride 71 L (101-112) mEq/L Chloride (98-107) mmol/L Carbon Dioxide (21-32) mmol/L POC Total CO2 35 H (24-31) mEq/l Anion Gap (3-11) POC Anion Gap 16.0 (16-25) mmol/L POC BUN 24 H (7-18) mg/dl BUN (7-18) mg/dl Creatinine (0.6-1.4) mg/dl POC Creatinine 1.6 H (0.6-1.3) mg/dl Est Cr Clr Drug Dosing ml/min Est GFR ( Amer) Est GFR (Non-Af Amer) BUN/Creatinine Ratio (10-20) Glucose (70-99) mg/dl POC Glucose 115 H (70-99) POC Glucose (other) TNP Osmolality (280-300) mOsm/kg Lactate (0.4-2.0) mmol/L Calcium (8.5-10.1) mg/dl POC Ioniz Calcium Kris 1.10 L (1.12-1.32) mmol/l Phosphorus (2.5-4.9) mg/dl Magnesium (1.8-2.4) mg/dl Total Bilirubin (0.2-1) mg/dl Direct Bilirubin (0-0.2) mg/dl AST (15-37) U/L ALT (12-78) U/L Alkaline Phosphatase (45-117) U/L Ammonia (11-32) umol/L NT-Pro-B Natriuret Pep (0-900) pg/ml Total Protein (6.4-8.2) gm/dl Albumin (3.4-5.0) gm/dl Globulin (2.5-4.0) gm/dl Albumin/Globulin Ratio (0.9-2) TSH (0.300-4.500) uIu/ml Urine Color Urine Appearance (Clear) Urine pH (4.5-7.5) Ur Specific [place] (1.000-1.030) Urine Protein (Negative) Urine Glucose (UA) (Negative) Urine Ketones (Negative) Urine Blood (Negative) Urine Nitrite (Negative) Urine Bilirubin (Negative) Urine Urobilinogen (Negative) Ur Leukocyte Esterase (Negative) Urine WBC (Auto) (0-5) /hpf Urine RBC (Auto) (0-4) /hpf U Hyaline Cast (Auto) (0-5) /lpf U Epithel Cells (Auto) (0-5) /lpf Urine Bacteria (Auto) (Negative) Ur Renal Epithelial Cell Urine Osmolality (500-800) mOsm/kg Stl C. diff Tox B Gene (Neg) Ethyl Alcohol mg/dL (0-3) mg/dl 01/09/19 01/09/19 01/09/19 Range/Units 21:27 21:27 21:27 WBC (4.8-10.8) K/uL RBC (4.7-6.1) M/uL Hgb (14.0-18.0) g/dL POC Hgb (14.0-18.0) g/dl Hct (42-52) % POC Hct (42-52) % MCV (80-100) fL MCH (25-34) pg MCHC (32-36) g/dL RDW Std Deviation (36.4-46.3) fL RDW Coeff of Jem (11.5-14.5) % Plt Count (130-400) K/uL MPV (7.4-10.4) fL Immature Gran % (Auto) % Neut % (Auto) % Lymph % (Auto) % [place] % (Auto) % Eos % (Auto) % Baso % (Auto) % Immature Gran # (Auto) (0.00-0.02) K/uL Neut # (Auto) (1.4-6.5) K/uL Lymph # (Auto) (1.2-3.4) K/uL Scre[place] # (Auto) (0.11-0.59) K/uL Eos # (Auto) (0-0.5) K/uL Baso # (Auto) (0-0.2) K/uL PT INR APTT PTT Ratio VBG pH (7.36-7.41) VBG pCO2 (38-50) mmHg VBG pO2 mmHg VBG HCO3 mmol/L VBG O2 Saturation % VBG Base Excess mEq/L Barometric Pressure mm/Hg POC Sodium (135-144) mEq/L Sodium 119 L* (136-145) mmol/L POC Potassium (3.3-5.0) mEq/L Potassium 3.4 L (3.5-5.1) mmol/L POC Chloride (101-112) mEq/L Chloride 75 L (98-107) mmol/L Carbon Dioxide 35 H (21-32) mmol/L POC Total CO2 (24-31) mEq/l Anion Gap 9.0 (3-11) POC Anion Gap (16-25) mmol/L POC BUN (7-18) mg/dl BUN 22 H (7-18) mg/dl Creatinine 1.52 H (0.6-1.4) mg/dl POC Creatinine (0.6-1.3) mg/dl Est Cr Clr Drug Dosing 51.7 ml/min Est GFR ( Amer) 54.6 Est GFR (Non-Af Amer) 47.1 BUN/Creatinine Ratio 14.7 (10-20) Glucose 107 H (70-99) mg/dl POC Glucose (70-99) POC Glucose (other) Osmolality (280-300) mOsm/kg Lactate 1.4 (0.4-2.0) mmol/L Calcium 8.7 (8.5-10.1) mg/dl POC Ioniz Calcium Kris (1.12-1.32) mmol/l Phosphorus 3.5 (2.5-4.9) mg/dl Magnesium 1.9 (1.8-2.4) mg/dl Total Bilirubin 1.2 H (0.2-1) mg/dl Direct Bilirubin 0.4 H (0-0.2) mg/dl AST 25 (15-37) U/L ALT 42 (12-78) U/L Alkaline Phosphatase 94 (45-117) U/L Ammonia < 10.0 L (11-32) umol/L NT-Pro-B Natriuret Pep 2601 H (0-900) pg/ml Total Protein 6.8 (6.4-8.2) gm/dl Albumin 3.4 (3.4-5.0) gm/dl Globulin 3.4 (2.5-4.0) gm/dl Albumin/Globulin Ratio 1.0 (0.9-2) TSH 0.498 (0.300-4.500) uIu/ml Urine Color Urine Appearance (Clear) Urine pH (4.5-7.5) Ur Specific [place] (1.000-1.030) Urine Protein (Negative) Urine Glucose (UA) (Negative) Urine Ketones (Negative) Urine Blood (Negative) Urine Nitrite (Negative) Urine Bilirubin (Negative) Urine Urobilinogen (Negative) Ur Leukocyte Esterase (Negative) Urine WBC (Auto) (0-5) /hpf Urine RBC (Auto) (0-4) /hpf U Hyaline Cast (Auto) (0-5) /lpf U Epithel Cells (Auto) (0-5) /lpf Urine Bacteria (Auto) (Negative) Ur Renal Epithelial Cell Urine Osmolality (500-800) mOsm/kg Stl C. diff Tox B Gene (Neg) Ethyl Alcohol mg/dL (0-3) mg/dl 01/09/19 01/09/19 01/09/19 Range/Units 21:27 21:27 21:33 WBC (4.8-10.8) K/uL RBC (4.7-6.1) M/uL Hgb (14.0-18.0) g/dL POC Hgb (14.0-18.0) g/dl Hct (42-52) % POC Hct (42-52) % MCV (80-100) fL MCH (25-34) pg MCHC (32-36) g/dL RDW Std Deviation (36.4-46.3) fL RDW Coeff of Jem (11.5-14.5) % Plt Count (130-400) K/uL MPV (7.4-10.4) fL Immature Gran % (Auto) % Neut % (Auto) % Lymph % (Auto) % [place] % (Auto) % Eos % (Auto) % Baso % (Auto) % Immature Gran # (Auto) (0.00-0.02) K/uL Neut # (Auto) (1.4-6.5) K/uL Lymph # (Auto) (1.2-3.4) K/uL [place] # (Auto) (0.11-0.59) K/uL Eos # (Auto) (0-0.5) K/uL Baso # (Auto) (0-0.2) K/uL PT Cancelled INR Cancelled APTT Cancelled PTT Ratio Cancelled VBG pH 7.41 (7.36-7.41) VBG pCO2 59 H (38-50) mmHg VBG pO2 22 mmHg VBG HCO3 37 mmol/L VBG O2 Saturation < 60.0 % VBG Base Excess 9.8 mEq/L Barometric Pressure 737.0 mm/Hg POC Sodium (135-144) mEq/L Sodium (136-145) mmol/L POC Potassium (3.3-5.0) mEq/L Potassium (3.5-5.1) mmol/L POC Chloride (101-112) mEq/L Chloride (98-107) mmol/L Carbon Dioxide (21-32) mmol/L POC Total CO2 (24-31) mEq/l Anion Gap (3-11) POC Anion Gap (16-25) mmol/L POC BUN (7-18) mg/dl BUN (7-18) mg/dl Creatinine (0.6-1.4) mg/dl POC Creatinine (0.6-1.3) mg/dl Est Cr Clr Drug Dosing ml/min Est GFR ( Amer) Est GFR (Non-Af Amer) BUN/Creatinine Ratio (10-20) Glucose (70-99) mg/dl POC Glucose (70-99) POC Glucose (other) Osmolality (280-300) mOsm/kg Lactate (0.4-2.0) mmol/L Calcium (8.5-10.1) mg/dl POC Ioniz Calcium Kris (1.12-1.32) mmol/l Phosphorus (2.5-4.9) mg/dl Magnesium (1.8-2.4) mg/dl Total Bilirubin (0.2-1) mg/dl Direct Bilirubin (0-0.2) mg/dl AST (15-37) U/L ALT (12-78) U/L Alkaline Phosphatase (45-117) U/L Ammonia (11-32) umol/L NT-Pro-B Natriuret Pep (0-900) pg/ml Total Protein (6.4-8.2) gm/dl Albumin (3.4-5.0) gm/dl Globulin (2.5-4.0) gm/dl Albumin/Globulin Ratio (0.9-2) TSH (0.300-4.500) uIu/ml Urine Color Urine Appearance (Clear) Urine pH (4.5-7.5) Ur Specific [place] (1.000-1.030) Urine Protein (Negative) Urine Glucose (UA) (Negative) Urine Ketones (Negative) Urine Blood (Negative) Urine Nitrite (Negative) Urine Bilirubin (Negative) Urine Urobilinogen (Negative) Ur Leukocyte Esterase (Negative) Urine WBC (Auto) (0-5) /hpf Urine RBC (Auto) (0-4) /hpf U Hyaline Cast (Auto) (0-5) /lpf U Epithel Cells (Auto) (0-5) /lpf Urine Bacteria (Auto) (Negative) Ur Renal Epithelial Cell Urine Osmolality (500-800) mOsm/kg Stl C. diff Tox B Gene (Neg) Ethyl Alcohol mg/dL < 3.0 (0-3) mg/dl 01/09/19 01/09/19 01/10/19 Range/Units 21:33 22:52 00:40 WBC (4.8-10.8) K/uL RBC (4.7-6.1) M/uL Hgb (14.0-18.0) g/dL POC Hgb (14.0-18.0) g/dl Hct (42-52) % POC Hct (42-52) % MCV (80-100) fL MCH (25-34) pg MCHC (32-36) g/dL RDW Std Deviation (36.4-46.3) fL RDW Coeff of Jem (11.5-14.5) % Plt Count (130-400) K/uL MPV (7.4-10.4) fL Immature Gran % (Auto) % Neut % (Auto) % Lymph % (Auto) % [place] % (Auto) % Eos % (Auto) % Baso % (Auto) % Immature Gran # (Auto) (0.00-0.02) K/uL Neut # (Auto) (1.4-6.5) K/uL Lymph # (Auto) (1.2-3.4) K/uL [place] # (Auto) (0.11-0.59) K/uL Eos # (Auto) (0-0.5) K/uL Baso # (Auto) (0-0.2) K/uL PT 10.4 INR 1.0 APTT 27.0 PTT Ratio 1.0 VBG pH (7.36-7.41) VBG pCO2 (38-50) mmHg VBG pO2 mmHg VBG HCO3 mmol/L VBG O2 Saturation % VBG Base Excess mEq/L Barometric Pressure mm/Hg POC Sodium (135-144) mEq/L Sodium (136-145) mmol/L POC Potassium (3.3-5.0) mEq/L Potassium (3.5-5.1) mmol/L POC Chloride (101-112) mEq/L Chloride (98-107) mmol/L Carbon Dioxide (21-32) mmol/L POC Total CO2 (24-31) mEq/l Anion Gap (3-11) POC Anion Gap (16-25) mmol/L POC BUN (7-18) mg/dl BUN (7-18) mg/dl Creatinine (0.6-1.4) mg/dl POC Creatinine (0.6-1.3) mg/dl Est Cr Clr Drug Dosing ml/min Est GFR ( Amer) Est GFR (Non-Af Amer) BUN/Creatinine Ratio (10-20) Glucose (70-99) mg/dl POC Glucose (70-99) POC Glucose (other) Osmolality 256 L (280-300) mOsm/kg Lactate (0.4-2.0) mmol/L Calcium (8.5-10.1) mg/dl POC Ioniz Calcium Kris (1.12-1.32) mmol/l Phosphorus (2.5-4.9) mg/dl Magnesium (1.8-2.4) mg/dl Total Bilirubin (0.2-1) mg/dl Direct Bilirubin (0-0.2) mg/dl AST (15-37) U/L ALT (12-78) U/L Alkaline Phosphatase (45-117) U/L Ammonia (11-32) umol/L NT-Pro-B Natriuret Pep (0-900) pg/ml Total Protein (6.4-8.2) gm/dl Albumin (3.4-5.0) gm/dl Globulin (2.5-4.0) gm/dl Albumin/Globulin Ratio (0.9-2) TSH (0.300-4.500) uIu/ml Urine Color Urine Appearance (Clear) Urine pH (4.5-7.5) Ur Specific [place] (1.000-1.030) Urine Protein (Negative) Urine Glucose (UA) (Negative) Urine Ketones (Negative) Urine Blood (Negative) Urine Nitrite (Negative) Urine Bilirubin (Negative) Urine Urobilinogen (Negative) Ur Leukocyte Esterase (Negative) Urine WBC (Auto) (0-5) /hpf Urine RBC (Auto) (0-4) /hpf U Hyaline Cast (Auto) (0-5) /lpf U Epithel Cells (Auto) (0-5) /lpf Urine Bacteria (Auto) (Negative) Ur Renal Epithelial Cell Urine Osmolality 275 L (500-800) mOsm/kg Stl C. diff Tox B Gene (Neg) Ethyl Alcohol mg/dL (0-3) mg/dl 01/10/19 01/10/19 01/10/19 Range/Units 00:40 00:55 01:16 WBC (4.8-10.8) K/uL RBC (4.7-6.1) M/uL Hgb (14.0-18.0) g/dL POC Hgb 10.9 L (14.0-18.0) g/dl Hct (42-52) % POC Hct 32 L (42-52) % MCV (80-100) fL MCH (25-34) pg MCHC (32-36) g/dL RDW Std Deviation (36.4-46.3) fL RDW Coeff of Jem (11.5-14.5) % Plt Count (130-400) K/uL MPV (7.4-10.4) fL Immature Gran % (Auto) % Neut % (Auto) % Lymph % (Auto) % [place] % (Auto) % Eos % (Auto) % Baso % (Auto) % Immature Gran # (Auto) (0.00-0.02) K/uL Neut # (Auto) (1.4-6.5) K/uL Lymph # (Auto) (1.2-3.4) K/uL [place] # (Auto) (0.11-0.59) K/uL Eos # (Auto) (0-0.5) K/uL Baso # (Auto) (0-0.2) K/uL PT INR APTT PTT Ratio VBG pH (7.36-7.41) VBG pCO2 (38-50) mmHg VBG pO2 mmHg VBG HCO3 mmol/L VBG O2 Saturation % VBG Base Excess mEq/L Barometric Pressure mm/Hg POC Sodium 120 L (135-144) mEq/L Sodium (136-145) mmol/L POC Potassium 3.3 (3.3-5.0) mEq/L Potassium (3.5-5.1) mmol/L POC Chloride 80 L (101-112) mEq/L Chloride (98-107) mmol/L Carbon Dioxide (21-32) mmol/L POC Total CO2 30 (24-31) mEq/l Anion Gap (3-11) POC Anion Gap 15.0 L (16-25) mmol/L POC BUN 21 H (7-18) mg/dl BUN (7-18) mg/dl Creatinine (0.6-1.4) mg/dl POC Creatinine 1.5 H (0.6-1.3) mg/dl Est Cr Clr Drug Dosing ml/min Est GFR ( Amer) Est GFR (Non-Af Amer) BUN/Creatinine Ratio (10-20) Glucose (70-99) mg/dl POC Glucose (70-99) POC Glucose (other) 102 H Osmolality (280-300) mOsm/kg Lactate (0.4-2.0) mmol/L Calcium (8.5-10.1) mg/dl POC Ioniz Calcium Kris 0.95 L (1.12-1.32) mmol/l Phosphorus (2.5-4.9) mg/dl Magnesium (1.8-2.4) mg/dl Total Bilirubin (0.2-1) mg/dl Direct Bilirubin (0-0.2) mg/dl AST (15-37) U/L ALT (12-78) U/L Alkaline Phosphatase (45-117) U/L Ammonia (11-32) umol/L NT-Pro-B Natriuret Pep (0-900) pg/ml Total Protein (6.4-8.2) gm/dl Albumin (3.4-5.0) gm/dl Globulin (2.5-4.0) gm/dl Albumin/Globulin Ratio (0.9-2) TSH (0.300-4.500) uIu/ml Urine Color Yellow Urine Appearance Clear (Clear) Urine pH 6.5 (4.5-7.5) Ur Specific [place] 1.018 (1.000-1.030) Urine Protein Trace H (Negative) Urine Glucose (UA) Negative (Negative) Urine Ketones Trace H (Negative) Urine Blood Negative (Negative) Urine Nitrite Positive A (Negative) Urine Bilirubin Negative (Negative) Urine Urobilinogen Negative (Negative) Ur Leukocyte Esterase 1+ H (Negative) Urine WBC (Auto) 10-30 H (0-5) /hpf Urine RBC (Auto) 0-4 (0-4) /hpf U Hyaline Cast (Auto) 1-5 (0-5) /lpf U Epithel Cells (Auto) >30 H (0-5) /lpf Urine Bacteria (Auto) 2+ H (Negative) Ur Renal Epithelial Cell Not Reportable Urine Osmolality (500-800) mOsm/kg Stl C. diff Tox B Gene Negative Cdiff Gene (Neg) Ethyl Alcohol mg/dL (0-3) mg/dl Imaging Data Radiologist's Impression: Radiology results as stated below per my review and the radiologist's interpretation: XR chest 1V portable HISTORY: 68 years-old Male Sepsis acute sepsis COMPARISON: Chest radiograph 12/19/2018 TECHNIQUE: Portable AP view of the chest FINDINGS: Cardiomediastinal and hilar silhouettes are unchanged. Chronic interstitial coarsening with mild descending thoracic tortuosity. No pneumothorax, pleural effusion or overt pulmonary edema. Minimal left basilar opacities suggest probable atelectasis. Degenerative changes of the shoulders and spine. IMPRESSION: No acute process. The above report was generated using voice recognition software. It may contain grammatical, syntax or spelling errors. Electronically signed by: Jim Portillo M.D. 01/09/2019 9:08 PM Radiology results as stated below per my review and the [facility] radiologist's interpretation: CT HEAD: No acute intracranial hemorrhage, mass effect, midline shift, hydrocephalus or acute infarct. Bony structures are intact. Soft tissues are unremarkable. Radiologist: Sandeep Townsend MD Study ready at 23:42 and initial results transmitted at 23:51 CT ABDOMEN & PELVIS With Contrast: Comparison 12/21/18. Large amount of stool distends the rectum with surrounding fat stranding and mild wall thickening. Recommend correlation with fecal impaction. Stercoral colitis cannot be e xcluded. No perforation. Diverticulosis of the sigmoid without diverticulitis. Partial visualization of a large left inguinal hernia containing a loop of sigmoid/descending colon without evidence of obstruction or strangulation. Small right inguinal hernia containing fat and a small portion of the anterior bladder. Small bladder diverticulum Normal appendix. Severe atherosclerosis. 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 Hepatic steatosis. Small water density cysts in the liver are stable and probably benign. Radiologist: Sandeep Townsend MD Study ready at 00:01 and initial results transmitted at 00:25 US VENOUS BILATERAL LOWER EXTREMITIES: No evidence of DVT in the visualized veins of the bilateral lower extremities. Radiologist: Sandeep Townsend MD Study ready at 00:27 and initial results transmitted at 00:30 ECG Data Attestation: I personally reviewed and interpreted this ECG as follows: Indication: altered mental status Rate (beats per minute): 100 Rhythm: normal sinus Findings: + other (Normal axis. nonspecific-T wave abn); no ST depression, no ST elevation and no acute ischemic change Blood Pressure Blood Pressure Findings: Normal blood pressure Blood Pressure Disposition: did not require urgent referral MDM Narrative The patient is a pleasant 68-year-old gentleman with a past medical history of COPD on 2L home O2, alcohol abuse, recent admission for pneumonia discharged 10 days ago who presents emergency department accompanied by his with worseni ng mental status over the past 24 hours per hpi. On arrival the patient is ill- appearing, with heart rate in the 100s and hypotension 80s/50s with mild confusion though alert to self and place and will answer most questions appropriately such as, that he is on 2 L of oxygen at baseline. Patient does appear clinically dry. He has generalized weakness throughout with 4/5 strength. He has bilateral lower extremity erythema and warmth without crepitus. Pedal pulses are palpable. He has mild upper abdominal tenderness without guarding or rebound. EKG without overt acute ischemia. Chest x-ray negative for acute process. WBC 23.4K. H/H 13.6/38.3 approximate 2 prior range of values. Platelets within normal limits. INR 1.0. VBG unremarkable with pH of 7.4 with only marginal CO2 elevation of 59. Initial i-STAT labs demonstrated hyponatremia of 117 with uninterpretable glucose (documented in paper chart but did not transmit to [facility]). Upon results of lab chemistry hyponatremia was confirmed at 119 with a glucose in the 100s. Creatinine is 1.5 which is new from recent discharge. There is no acidosis. Lactate within normal limits. LFTs unremarkable. Ammonia negative/undetectable. Etoh negative c/w report that patient has not had alcohol in past 24 hours. Does take Trileptal for a history of seizures and a level was ordered and is pending. CT head negative for acute process. CT abdomen pelvis redemonstrates previous inguinal hernias without evidence of obstruction. There is question of stercoral colitis however patient did have diarrhea in the emergency department which was brown but was guaiac positive per nursing. C. difficile was ordered and pending. Upon confirmation of the patient's hyponatremia in the setting of his symptoms he was treated with 3% hypertonic saline of 100 cc over 3 hours in addition to 1 L of normal saline for volume given his hypovolemia and hypotension. Subsequently patient did improve and became normotensive with improvement in his mentation and generalized weakness. He was lying in bed comfortably using the TV remote to kane the channel. We did repeat a i-STAT chemistry which showed improvement in the sodium to 120 which, when compared to his initial i-STAT is an improvement of 3meq/L. Patient was also treated empirically with Zosyn and vancomycin for possible sepsis given his leukocytosis, tachycardia and hypotension. UA eventually obtained via straight cath and does show positive nitrites, WBCs and bacteria although with epithelial cells. Case was discussed with Dr. Wang, [facility] hospitalist, who will evaluate the patient for admission. Impression & Plan Sepsis, Acute hyponatremia, Hyponatremia, Acute hypotension, Cellulitis, Leukocytosis, Metabolic encephalopathy, Generalized weakness, Acute UTI Critical Care Time Critical Care Time: Yes Total Critical Care Time: 135 I have personally spent greater than 135 minutes of critical care time in the direct management of this patient. This includes bedside care, interpretation of diagnostic studies, and testing, discussion with consultants, patient, and family members, and other required patient management activities. This 135 minutes is in excess of all separately billable procedures. Discharge Plan Visit Data *Final* Discharge Date/Time: 01/10/19 01:58 Chief Complaint: Altered Mental Status ED Provider: Khalif Ha Discharge Problem: Sepsis, Acute hyponatremia, Hyponatremia, Acute hypotension, Cellulitis, Leukocytosis, Metabolic encephalopathy, Generalized weakness, Acute UTI Patient Disposition: Admitted As Inpatient Discharge Instructions Interventions: ED Discharge Assessment Last Done: 01/10/19 01:58 Discharge Problem: Sepsis Qualifiers: Sepsis type: sepsis due to unspecified organism Sepsis acute organ dysfunction status: with acute organ dysfunction Severe sepsis acute organ dysfunction type: encephalopathy Severe sepsis shock status: unspecified Qualified Code(s): A41.9 - Sepsis, unspecified organism Cellulitis Qualifiers: Site of cellulitis: extremity Site of cellulitis of extremity: lower extremity Laterality: unspecified laterality Qualified Code(s): L03.119 - Cellulitis of unspecified part of limb Leukocytosis Qualifiers: Leukocytosis type: unspecified Qualified Code(s): D72.829 - Elevated white blood cell count, unspecified The scribe's documentation has been prepared under my direction and personally reviewed by me in its entirety. I confirm that the note above accurately reflects all work, treatment, procedures, and medical decision making performed by me.
--- NOTE | 2019-01-10 02:10 | History & Physical Report ---
Date of Service January 10, 2019 Assessment & Plan (1) Acute hyponatremia: Admit tele Likely due to beer potomania given 3% NSS in ED Continue NSS recheck sodium in the am. DVT prophylaxis = SCDs and sub-q heparin. (2) Acute hypotension: Resolved after fluid hydration. (3) Metabolic encephalopathy: Improving with fluids and treatment hyponatremia. CT head neg Ammonia level normal. (4) Cellulitis: Lower ext IV Zosyn and IV Vanco ordered. (5) COPD (chronic obstructive pulmonary disease): At baseline no exacerbation Continue Advair PRN albuterol nebs. (6) Alcohol withdrawal: CIWA orders. (7) Generalized weakness: Multifactorial PT/OT History of Present Illness 68 y/o male presented to the ED with a progressive generalized weakness over past 3 days. Since being discharged from the hospital 10 days prior, he has noticed increased lower extremity swelling and then the past 24 hours noticed redness to lower legs with pain to palpation. He drinks 10 beer/day. He is found to have low sodium. Upon initial presentation, patient was obtunded, but this has improved by my evaluation. Primary Care Provider: Russell Dang DO Allergies Allergy/AdvReac Type Severity Reaction Status Date / Time No Known Allergies Allergy Verified 01/24/19 22:54 Home Medications Home Medications Medication Instructions Recorded Confirmed Type pregabalin 100 mg capsule 100 mg PO BID #60 cap 12/04/18 01/24/19 History metoprolol succinate ER 50 mg 50 mg PO DAILY #30 tab 12/06/18 01/24/19 History tablet,extended release 24 hr albuterol sulfate HFA 90 1 - 2 puff INHALATION Q4H PRN #18 12/13/18 01/24/19 Rx mcg/actuation aerosol inhaler gm atorvastatin 40 mg tablet 40 mg PO HS 12/13/18 01/24/19 History folic acid 400 mcg tablet 0.4 mg PO DAILY 12/13/18 01/24/19 History oxcarbazepine 300 mg tablet 300 mg PO BID 12/13/18 01/24/19 History venlafaxine ER 150 mg 150 mg PO DAILY 12/13/18 01/24/19 History capsule,extended release 24 hr vitamin B complex-folic acid 2,000 1 cap PO DAILY 12/13/18 01/24/19 History mcg capsule Mariola-Sequels (iron-vit c) 1 tab PO DAILY #30 tab 01/21/19 01/24/19 Rx thiamine HCl (vitamin B1) [Vitamin 100 mg PO QAM #30 tab 01/21/19 01/24/19 Rx B-1] Incruse Ellipta 1 inh INHALATION DAILY 02/01/19 02/01/19 History fluticasone propion-salmeterol 1 inh INHALATION BID #60 ea 02/01/19 01/24/19 Rx [Advair Diskus] furosemide [Lasix] 10 mg PO DAILY #30 tab 02/01/19 Rx gabapentin 100 mg PO TID #180 cap 02/01/19 01/24/19 Rx prednisone See Rx Instructions .ROUTE 02/01/19 Rx .COMPLEX #6 tab sodium chloride 1 g PO QID #120 tab 02/01/19 Rx sulfamethoxazole-trimethoprim 1 tab PO Q12 14 Days #28 tab 02/01/19 Rx sumatriptan succinate See Rx Instructions .ROUTE 02/01/19 Rx .COMPLEX PRN #14 tab tamsulosin 0.4 mg PO QAM #30 cap 02/01/19 Rx Past Med/Surg History Medical History Orthostasis Face lacerations (Acute) Neuropathy (Chronic) Hypertension (Chronic) Alcohol abuse (Chronic) COPD (chronic obstructive pulmonary disease) (Chronic) Anemia (Acute) Tremor Gross hematuria H/O tooth extraction Lower teeth on 04/23/2018 Hyperlipidemia Slowing of urinary stream Surgical History S/P foot surgery Family History Father Hypertension Aneurysm Mother Swelling Other No significant family history Social History Preferred Language: Japanese Communication Ability: Effective Visual Impairment: Limited Hearing Ability: Normal Pourer Crane Ladle Required: No Beliefs That Will Affect Care: None marital status: Current Living Situation: Spouse current occupational status: retired Feels Safe at Home: Yes Smoking Status: Unknown if ever smoked Hx Alcohol Use: Yes Alcohol type: beer Alcohol Intake Frequency Comment: 8+ per day Hx Substance Use: No Childhood Exposure to Second-Hand Smoke: Yes Dental Care, Regularly: No Physical Activity Frequency: Does not Exercise Seatbelt Use: always Sunscreen Use: No Review of Systems Review of Systems: Constitutional- no fever; no weight loss Eyes- no acute visual changes ENT- no sinus drainage; no pharyngitis Pulmonary- no cough, no wheezing, no shortness of breath Cardiac- no chest pain, no palpitations, no orthopnea. + lower ext swelling. GI- no nausea, no vomiting, no diarrhea, no melena, no hematochezia - no dysuria, no hematuria Musculoskeletal- no arthralgias, no myalgias Derm- + redness and pain to skin b/l lower ext below knees. Hematologic- no unusual bruising, no unusual bleeding Lymphatics- no adenopathy Endocrine- no polyuria or polydipsia; no heat or cold intolerance Neuro- no headaches, no focal neurologic symptoms Psych- no anxiety, no depression Physical Exam Physical Exam: General- adult male, NAD Head- atraumatic Eyes- PERRL, EOMI, anicteric ENT- oropharynx clear Neck- supple, no JVD, no adenopathy, no thyromegaly. Lungs- clear to auscultation b/l, No rales or rhonchi. Mild exp wheeze b/l. Heart- regular rhythm; no murmur, no gallop, no rub appreciated Abdomen- normal bowel sounds, soft, nontender. Extremities- +2 pitting edema b/l lower ext below knees. Neuro- alert, oriented x 3; PERRL, EOMI. agency recruiter II-XII grossly intact, Non-focal. Skin- warm & dry, erythema to b/l lower extremities dorsum feet to mid calf. Results & Data Vital Signs (Past 12 Hours) Vital Signs Temp Pulse Pulse Resp BP BP Pulse Ox 01/10/19 01:45 78 12 107/63 99 01/10/19 01:30 76 14 104/66 100 01/10/19 01:15 86 16 96/67 L 100 01/10/19 01:00 80 13 99/60 L 99 01/10/19 00:45 91 H 21 85/55 L 98 01/10/19 00:30 89 18 107/68 91 01/09/19 23:49 95 H 16 116/71 97 01/09/19 23:30 89/55 L 01/09/19 23:20 88 18 87/54 L 97 01/09/19 23:18 87 15 87/54 L 97 01/09/19 22:30 88 16 93/61 L 99 01/09/19 22:21 94 H 15 84/60 L 97 01/09/19 22:15 94 H 17 100 01/09/19 22:00 99 H 16 81/57 L 98 01/09/19 21:45 95 H 15 89/59 L 99 01/09/19 21:30 96 H 14 80/57 L 97 01/09/19 21:15 100 H 15 89/61 L 98 01/09/19 21:00 101 H 19 93/61 L 97 01/09/19 20:45 101 H 18 89/59 L 99 01/09/19 20:42 100 H 19 99 01/09/19 20:39 102 H 20 90/66 L 98 01/09/19 20:24 37.2 C 108 H 16 99/69 L 89 L Laboratory Results Laboratory Results WBC 23.48 K/uL (4.8-10.8) H 01/09/19 21: RBC 4.14 M/uL (4.7-6.1) L 01/09/19 21: Hgb 13.6 g/dL (14.0-18.0) L 01/09/19 21: POC Hgb 10.9 g/dl (14.0-18.0) L 01/10/19 01:16 Hct 38.3 % (42-52) L 01/09/19 21:27 POC Hct 32 % (42-52) L 01/10/19 01:16 MCV 92.5 fL (80-100) 01/09/19 21: MCH 32.9 pg (25-34) 01/09/19 21: MCHC 35.5 g/dL (32-36) 01/09/19 21: RDW Std Deviation 46.1 fL (36.4-46.3) 01/09/19 21: RDW Coeff of Jem 13.6 % (11.5-14.5) 01/09/19 21: Plt Count 205 K/uL (130-400) 01/09/19 21:27 MPV 10.2 fL (7.4-10.4) 01/09/19 21: Immature Gran % (Auto) 0.2 % 01/09/19 21: Neut % (Auto) 94.9 % 01/09/19 21: Lymph % (Auto) 2.0 % 01/09/19 21: [place] % (Auto) 2.8 % 01/09/19 21: Eos % (Auto) 0.1 % 01/09/19: Baso % (Auto) 0.0 % 01/09/19: Immature Gran # (Auto) 0.05 K/uL (0.00-0.02) H 01/09/19 21: Neut # (Auto) 22.28 K/uL (1.4-6.5) H 01/09/19: Lymph # (Auto) 0.47 K/uL (1.2-3.4) L 01/09/19 21: [place] # (Auto) 0.65 K/uL (0.11-0.59) H 01/09/19: Eos # (Auto) 0.02 K/uL (0-0.5) 01/09/19: Baso # (Auto) 0.01 K/uL (0-0.2) 01/09/19 21: PT 10.4 Seconds (9.0-12.0) 01/09/19 22:52 INR 1.0 (0.9-1.1) 01/09/19 22:52 APTT 27.0 Seconds (21.0-31.0) 01/09/19: PTT Ratio 1.0 01/09/19:52 VBG pH 7.41 (7.36-7.41) 01/09/19: VBG pCO2 59 mmHg (38-50) H 01/09/19 21: VBG pO2 22 mmHg 01/09/19: VBG HCO3 37 mmol/L 01/09/19: VBG O2 Saturation < 60.0 % 01/09/19: VBG Base Excess 9.8 mEq/L 01/09/19 21: Barometric Pressure 737.0 mm/Hg 01/09/19 21: POC Sodium 120 mEq/L (135-144) L 01/10/19 01:16 Sodium 119 mmol/L (136-145) L* 01/09/19 21:27 POC Potassium 3.3 mEq/L (3.3-5.0) 01/10/19 01:16 Potassium 3.4 mmol/L (3.5-5.1) L 01/09/19 21:27 POC Chloride 80 mEq/L (101-112) L 01/10/19 01:16 Chloride 75 mmol/L (98-107) L 01/09/19 21:27 Carbon Dioxide 35 mmol/L (21-32) H 01/09/19 21:27 POC Total CO2 30 mEq/l (24-31) 01/10/19 01:16 Anion Gap 9.0 (3-11) 01/09/19 21: POC Anion Gap 15.0 mmol/L (16-25) L 01/10/19 01:16 POC BUN 21 mg/dl (7-18) H 01/10/19 01:16 BUN 22 mg/dl (7-18) H 01/09/19 21:27 Creatinine 1.52 mg/dl (0.6-1.4) H 01/09/19 21: POC Creatinine 1.5 mg/dl (0.6-1.3) H 01/10/19 01:16 Est Cr Clr Drug Dosing 51.7 ml/min 01/09/19 21:27 Est GFR ( Amer) 54.6 01/09/19 21:27 Est GFR (Non-Af Amer) 47.1 01/09/19 21:27 BUN/Creatinine Ratio 14.7 (10-20) 01/09/19 21:27 Glucose 107 mg/dl (70-99) H 01/09/19 21:27 POC Glucose 115 (70-99) H 01/09/19 20:24 POC Glucose (other) 102 mg/dl (70-99) H 01/10/19 01:16 Osmolality 256 mOsm/kg (280-300) L 01/09/19 21:33 Lactate 1.4 mmol/L (0.4-2.0) 01/09/19 21:27 Calcium 8.7 mg/dl (8.5-10.1) 01/09/19 21:27 POC Ioniz Calcium Kris 0.95 mmol/l (1.12-1.32) L 01/10/19 01:16 Phosphorus 3.5 mg/dl (2.5-4.9) 01/09/19 21: Magnesium 1.9 mg/dl (1.8-2.4) 01/09/19 21: Total Bilirubin 1.2 mg/dl (0.2-1) H 01/09/19 21: Direct Bilirubin 0.4 mg/dl (0-0.2) H 01/09/19 21: AST 25 U/L (15-37) 01/09/19 21: ALT 42 U/L (12-78) 01/09/19 21: Alkaline Phosphatase 94 U/L (45-117) 01/09/19 21: Ammonia < 10.0 umol/L (11-32) L 01/09/19 21: NT-Pro-B Natriuret Pep 2601 pg/ml (0-900) H 01/09/19 21: Total Protein 6.8 gm/dl (6.4-8.2) 01/09/19 21: Albumin 3.4 gm/dl (3.4-5.0) 01/09/19 21: Globulin 3.4 gm/dl (2.5-4.0) 01/09/19 21: Albumin/Globulin Ratio 1.0 (0.9-2) 01/09/19 21: TSH 0.498 uIu/ml (0.300-4.500) 01/09/19 21: Urine Color Yellow 01/10/19 00:40 Urine Appearance Clear (Clear) 01/10/19 00:40 Urine pH 6.5 (4.5-7.5) 01/10/19 00:40 Ur Specific [place] 1.018 (1.000-1.030) 01/10/19 00:40 Urine Protein Trace (Negative) H 01/10/19 00:40 Urine Glucose (UA) Negative (Negative) 01/10/19 00:40 Urine Ketones Trace (Negative) H 01/10/19 00:40 Urine Blood Negative (Negative) 01/10/19 00:40 Urine Nitrite Positive (Negative) A 01/10/19 00:40 Urine Bilirubin Negative (Negative) 01/10/19 00:40 Urine Urobilinogen Negative (Negative) 01/10/19 00:40 Ur Leukocyte Esterase 1+ (Negative) H 01/10/19 00:40 Urine WBC (Auto) 10-30 /hpf (0-5) H 01/10/19 00:40 Urine RBC (Auto) 0-4 /hpf (0-4) 01/10/19 00:40 U Hyaline Cast (Auto) 1-5 /lpf (0-5) 01/10/19 00:40 U Epithel Cells (Auto) >30 /lpf (0-5) H 01/10/19 00:40 Urine Bacteria (Auto) 2+ (Negative) H 01/10/19 00:40 Ur Renal Epithelial Cell Not Reportable 01/10/19 00:40 Urine Osmolality 275 mOsm/kg (500-800) L 01/10/19 00:40 Stl C. diff Tox B Gene Negative Cdiff Gene (Neg) 01/10/19 00:55 Ethyl Alcohol mg/dL < 3.0 mg/dl (0-3) 01/09/19 21:27 Code Status & VTE Plan VTE Prophylaxis Plan VTE Prophylaxis will be ordered: Yes PG Care Time/CCT Total # of Minutes Spent Total Time Spent: 55 Total Time Spent with Patient: Total time spent is greater than 50% in coordination of care (as documented) at patient's floor/unit and/or counseling patient: (1) Alcohol withdrawal Complication of substance-induced condition: with perceptual disturbance Qualified Code(s): 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
[2019-01-10] MEDS ORDERED: VANCOMYCIN CONSULT ACTIVE PRN (02:32)
[2019-01-10] MEDS ORDERED: PIPERACILL/TAZOBAC CONSULT ACTIVE PRN (02:32)
[2019-01-10] MEDS ORDERED: ONDANSETRON INJ 2 MG/ML 2 ML VIAL IV PRN (02:32)
[2019-01-10] MEDS ORDERED: LORazepam 1 MG/2 ML VIAL IV PRN (02:32)
[2019-01-10] MEDS: PIPERACILLIN/TAZOBACTAM 3.375 GM in DEXTROSE 5% 100 ML IV SCH ×3 (04:21→20:29)
[2019-01-10 04:39] LABS: Hematocrit (blood only) 31.9 % (42-52); Hemoglobin 11.4 g/dL (14.0-18.0); Mean Corpuscular Hemoglobin 32.7 pg (25-34); Mean Corpuscular Hgb Conc 35.7 g/dL (32-36); Mean Corpuscular Volume 91.4 fL (80-100); Mean Platelet Volume 9.5 fL (7.4-10.4); Platelet Count 161 K/uL (130-400); RDW Coefficient of Variation 13.7 % (11.5-14.5); RDW Standard Deviation 45.1 fL (36.4-46.3); Red Blood Count 3.49 M/uL (4.7-6.1); White Blood Count 21.17 K/uL (4.8-10.8)
[2019-01-10 04:59] LABS: Albumin Level 2.5 gm/dl (3.4-5.0); BUN Creatinine Ratio 18.1 (10-20); Bilirubin Direct 0.4 mg/dl (0-0.2); Calcium 7.4 mg/dl (8.5-10.1); Creatinine Clr Calc Pharmacy 65.6 ml/min; Est GFR (African American) 74.9; Est GFR (Non-African American) 64.6
[2019-01-10 05:08] LABS: Albumin Globulin Ratio 0.9 (0.9-2); Bilirubin,Total 0.9 mg/dl (0.2-1); Globulin 2.8 gm/dl (2.5-4.0); Total Protein 5.3 gm/dl (6.4-8.2)
--- NOTE | 2019-01-10 07:18 | CT Scan Report ---
CT abd pelvis IV con only CLINICAL HISTORY: 68 years-old Male presenting with generalized abdominal pain. TECHNIQUE: Multidetector CT of the abdomen and pelvis was performed after the administration of intra venous contrast. IV contrast: 90 mL of Optiray 320. One or more dose lowering techniques were used co nsistent with the principles of ALARA (as low as reasonably achievable), including automatic exposure control, mA or kV adjustment to individual patient size, and/or use of iterative reconstruction. COMPARISON: 12/21/2018. CT DOSE (mGy.cm): The estimated cumulative dose is 875.18 mGy.cm. FINDINGS: Insect Control Inspector topogram: Orthopedic hardware. Lung bases: Normal heart size. No pericardial or pleural effusion. Minimal dependent changes likely a telectasis. Trace centrilobular emphysema may be present. Bronchial wall thickening with scattered torres bsegmental endobronchial debris. Liver: Normal morphology. Well-defined hypodense lesions likely hepatic cysts. Patent hepatic vascula ture. Biliary: No intrahepatic or extrahepatic biliary ductal dilatation. Normal gallbladder. Pancreas: Normal. Spleen: Normal. Adrenal glands: Normal. Kidneys and ureters: Normal. No hydronephrosis. Bladder: Circumferential bladder wall thickening. Pelvic organs: Inflammatory changes along the posterior aspect of the otherwise normal-appearing pros suarez. This may not emanate from the prostate. Bowel: Circumferential wall thickening of the rectum primarily involving the mid to lower portion. Th e rectum is moderately distended with stool. Infiltration of the mesorectal fascia diffusely. Mild di verticulosis of the proximal to mid sigmoid colon without pericolonic inflammatory change or wall thi ckening. A portion of the proximal sigmoid colon is contained within the left inguinal hernia and is unobstructed. Mild stool burden throughout the colon, which is otherwise normal in caliber. The appen danielle is normal. No bowel obstruction. Peritoneal cavity: Trace free fluid in the pelvis. No free intraperitoneal peritoneal gas. Lymph nodes: No enlarged lymph nodes in the abdomen or pelvis. Vasculature: Atherosclerosis of the tortuous though normal caliber abdominal aorta. 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 IVC patent. Abdominal wall: Gynecomastia. Bilateral inguinal hernias larger on the left containing sigmoid colon on the left and fat in the minor portion of the bladder dome on the right. Musculoskeletal: Intramedullary nail fixation of the right femur. Osteopenia. Degenerative changes of the spine. Multiple old rib fracture is suggested. Compression deformity of L1 and to a lesser exten t L2 is on a chronic basis given osseous fusion across L1-2. IMPRESSION: 1. Wall thickening of the rectum moderately distended with stool with surrounding inflammatory inman e is evidence of stercoral colitis. This may account for inflammatory changes along the rectal prosta tic recess. 2. Mild diverticulosis of the sigmoid colon. No diverticulitis. 3. Left inguinal hernia containing proximal sigmoid colon, which is unobstructed. 4. Circumferential bladder wall thickening may relate to chronic bladder outlet obstruction or cysti tis. Correlate with urinalysis. 5. Emphysema and suspected bronchitis at the lung bases, likely smoking-related lung injury. 6. 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 Electronically signed by: Jakob Burleson M.D. 01/10/2019 7:17 AM
--- NOTE | 2019-01-10 07:20 | Ultrasound Report ---
BILATERAL LOWER EXTREMITY VENOUS DOPPLER HISTORY: Lower extremity swelling, redness, pain COMPARISON STUDY: None. FINDINGS: There is normal compressibility, flow, and augmentation within the bilateral lower extremit y deep venous systems. IMPRESSION: No DVT within the right or left lower extremity. Electronically signed by: Kartik Aly M.D. 01/10/2019 7:19 AM
--- NOTE | 2019-01-10 07:21 | CT Scan Report ---
CT head/brain wo con CLINICAL HISTORY: 68 years-old Male presenting with confusion, generalized weakness. TECHNIQUE: Multidetector CT imaging of the head was performed without the use of intravenous contrast . IV contrast: None. One or more dose lowering techniques were used consistent with the principles of ALARA (as low as reasonably achievable), including automatic exposure control, mA or kV adjustment t o individual patient size, and/or use of iterative reconstruction. COMPARISON: 04/24/2018. CT DOSE (mGy.cm): The estimated cumulative dose is 614.27 mGy.cm. FINDINGS: Clinical Asst topogram: The patient is edentulous. Ventricles and sulci normal in size. No hemorrhage. Brain parenchyma normal in appearance with preser sandie marte-white differentiation. No acute territorial infarct. No mass effect or midline shift. No ext ra-axial fluid collection. Paranasal sinuses and mastoid air cells clear. Calvarium intact. IMPRESSION: 1. No acute intracranial abnormality. Electronically signed by: Jakob Burleson M.D. 01/10/2019 7:20 AM
[2019-01-10] MEDS: FLUTICASONE/SALMETEROL (ADVAIR) 500/50 INH 14 PUFF INH SCH ×2 (08:22→20:29)
[2019-01-10] MEDS: FOLIC ACID 400 MCG TAB PO SCH (08:24)
[2019-01-10] MEDS: HEPARIN SOD 5,000 UNIT/0.5 ML VIAL SQ SCH ×3 (08:24→20:32)
[2019-01-10] MEDS: PANTOprazole 40 MG TAB PO SCH (08:24)
[2019-01-10] MEDS: VENLAFAXINE HCL XR 150 MG CAPXR PO SCH (08:25)
[2019-01-10] MEDS: OXcarbazepine 150 MG TABLET PO SCH ×2 (08:25→20:30)
[2019-01-10] MEDS: GABAPENTIN 300 MG CAP PO SCH ×3 (08:25→20:31)
[2019-01-10] MEDS: VITAMIN B COMPLEX TAB PO SCH (08:25)
[2019-01-10] MEDS: THIAMINE HCL 100 MG TAB PO SCH (08:25)
[2019-01-10] MEDS: PREGABALIN 100 MG CAP PO SCH ×2 (08:29→20:33)
[2019-01-10] MEDS ORDERED: POTASSIUM CHLORIDE 20 MEQ TABCR PO STA (08:52)
[2019-01-10] MEDS ORDERED: METOPROLOL SUCC 25MG EXT REL TAB PO SCH (09:00)
[2019-01-10] MEDS ORDERED: METOPROLOL SUCC 50MG EXT REL TAB PO SCH (09:00)
[2019-01-10 09:50] LABS: iSTAT Blood Urea Nitrogen 24 mg/dl (7-18); iSTAT Carbon Dioxide 35 mEq/l (24-31); iSTAT Chloride 71 mEq/L (101-112); iSTAT Creatinine 1.6 mg/dl (0.6-1.3); iSTAT Hematocrit 43 % (42-52); iSTAT Hemoglobin 14.6 g/dl (14.0-18.0); iSTAT Potassium 3.4 mEq/L (3.3-5.0); iSTAT Sodium 117 mEq/L (135-144)
--- NOTE | 2019-01-10 09:57 | Pharmacy Report ---
Pharmacy Abx Dose Short Note - Date of Service January 10, 2019 - Assessment & Plan Assessment * 68 year old M receiving VANCOMYCIN + ZOSYN for treatment of bilateral lower ext cellulitis, possible UTI, possible stercoral colitis * Day # 2 of antimicrobial therapy * Patient was admitted with hypotension and acute hyponatremia. MAPs remain in the 60s * Leukocytosis present on labs, no fever noted thus far * UA +, culture pending * Per nursing assessment, no open wounds on lower ext, no purulence, no ulcerations, + erythema * MRSA Nasal swab negative, CXR read as no acute process * ZAK present on admit, however SCr improving (1.52 -->1.17); baseline ~ 0.8 Plan Vancomycin * Loading dose: 1750mg x 1 (~21mg/kg) * Maint dose: 1250mg (~15mg/kg) IV Q 14 hrs * Goal trough level for cellulitis possible sepsis : 15 to 20 mcg/mL * Trough level will be checked with 3rd or 4th maint dose Zosyn * eCrCl > 20; BMI < 35, continue 3.375gm IV ext infusion Q 8 hrs Pharmacy will continue to follow and will adjust dose/frequency as necessary. Thank you.
[2019-01-10] MEDS ORDERED: VANCOMYCIN HCL 1,250 MG in SODIUM CHLORIDE 0.9% 500 ML IV SCH (10:00)
[2019-01-10] MEDS: LACTATED RINGER'S 1,000 ML IV SCH ×2 (10:14→20:29)
[2019-01-10] MEDS: VANCOMYCIN HCL 1,250 MG in SODIUM CHLORIDE 0.9% 250 ML IV SCH (10:15)
[2019-01-10] MEDS ORDERED: LACTATED RINGER'S 1,000 ML IV ONE (11:03)
--- NOTE | 2019-01-10 11:31 | Hospitalist Progress Note ---
Date of Service January 10, 2019 Assessment & Plan (1) Sepsis associated hypotension: Patient appears to be in sepsis. Patient has bacteremia with gram negative bacilli. Will continue IV antibiotics. Will give fluid bolus. D/W piper helper. will obtain random cortisol. will trasnfer to the ICU. Patient is hypotensive. (2) Acute hyponatremia: Admit tele Likely due to beer potomania given 3% NSS in ED Continue NSS recheck sodium in the am. DVT prophylaxis = SCDs and sub-q heparin. (3) Acute hypotension: Patient again is hypotensive. May be due to sepsis. Will continue to monitor patient. Ordered IV fluid bolus. (4) Metabolic encephalopathy: Improving with fluids and treatment hyponatremia. CT head neg Ammonia level normal. (5) Cellulitis: Lower ext IV Zosyn and IV Vanco ordered. (6) COPD (chronic obstructive pulmonary disease): At baseline no exacerbation Continue Advair PRN albuterol nebs. (7) Alcohol withdrawal: CIWA orders. (8) Generalized weakness: Multifactorial PT/OT Subjective 68 yo male is a poor historian. Review of Systems Review of Systems: Constitutional- no fever; no weight loss Eyes- no acute visual changes ENT- no sinus drainage; no pharyngitis Pulmonary- no cough, no wheezing, no shortness of breath Cardiac- no chest pain, no palpitations, no orthopnea. + lower ext swelling. GI- no nausea, no vomiting, no diarrhea, no melena, no hematochezia - no dysuria, no hematuria Musculoskeletal- no arthralgias, no myalgias Derm- + redness and pain to skin b/l lower ext below knees. Hematologic- no unusual bruising, no unusual bleeding Lymphatics- no adenopathy Endocrine- no polyuria or polydipsia; no heat or cold intolerance Neuro- no headaches, no focal neurologic symptoms Psych- no anxiety, no depression Physical Exam Physical Exam: General- adult male, NAD Head- atraumatic Eyes- PERRL, EOMI, anicteric ENT- oropharynx clear Neck- supple, no JVD, no adenopathy, no thyromegaly. Lungs- clear to auscultation b/l, No rales or rhonchi. Mild exp wheeze b/l. Heart- regular rhythm; no murmur, no gallop, no rub appreciated Abdomen- normal bowel sounds, soft, nontender. Extremities- +2 pitting edema b/l lower ext below knees. Neuro- alert, oriented x 3; PERRL, EOMI. 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 Skin- warm & dry, erythema to b/l lower extremities dorsum feet to mid calf. Results & Data Vital Signs (Past 12 Hours) Vital Signs Temp Pulse Pulse Pulse Resp BP BP 01/10/19 10:26 80 20 80/54 L 01/10/19 10:22 80 13 67/43 L 01/10/19 08:00 36.8 C 78 81 18 87/58 L 01/10/19 04:00 37 C 71 15 76/52 L 01/10/19 02:10 36.7 C 85 18 106/66 01/10/19 01:45 78 12 107/63 01/10/19 01:30 76 14 104/66 01/10/19 01:15 86 16 96/67 L 01/10/19 01:00 80 13 99/60 L 01/10/19 00:45 91 H 21 85/55 L 01/10/19 00:30 89 18 107/68 01/09/19 23:49 95 H 16 116/71 01/09/19 23:30 89/55 L Pulse Ox 01/10/19 10:26 01/10/19 10:22 01/10/19 08:00 95 01/10/19 04:00 97 01/10/19 02:10 97 01/10/19 01:45 99 01/10/19 01:30 100 01/10/19 01:15 100 01/10/19 01:00 99 01/10/19 00:45 98 01/10/19 00:30 91 01/09/19 23:49 97 01/09/19 23:30 PG Care Time/CCT Total # of Minutes Spent Total Time Spent with Patient: Total time spent is greater than 50% in pulp cooker rdination of care (as documented) at patient's floor/unit and/or counseling patient: Critical Care Time: Yes Total Critical Care Time: 35 (1) Alcohol withdrawal Complication of substance-induced condition: with perceptual disturbance Qualified Code(s): 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
[2019-01-10 13:15] LABS: BUN Creatinine Ratio 16.8 (10-20); Calcium 7.5 mg/dl (8.5-10.1); Creatinine Clr Calc Pharmacy 58.2 ml/min; Est GFR (African American) 64.7; Est GFR (Non-African American) 55.8; Potassium 2.9 mmol/L (3.5-5.1)
[2019-01-10 13:16] LABS: Phosphorus 3.2 mg/dl (2.5-4.9)
--- NOTE | 2019-01-10 13:29 | Critical Care Consultation ---
Date of Consultation January 10, 2019 Assessment & Plan (1) Admitted to intensive care unit: Reason Critically Ill: Sepsis secondary to LE cellulitis requiring pressor support NEURO ICU CAM: NEGATIVE Metabolic encephalopathy- Improved. Cont with IVF and hyponatremia tx CT head neg Ammonia WNL Acute Alcohol Withdrawal- cont trend CIWA scores Thiamine 100 po qam, Folic acid 400 mcg Neuropathy- cont gabapentin 300 mg TID, Lyrica 100 mg BID CV Hypotension- 2/2 sepsis from LE Cellulitis Cont on Levophed gtt Cont IVF HTN, HLD- Cont Atorvastatin 40 mg hs, Hold Toprol XL PULM COPD- stable Continue Advair PRN albuterol nebs ABD/GI Protonix 40 mg qam PO No other acute concerns /RENAL Acute hyponatremia- Likely 2/2 beer potomania Continue LR at 125 Cont trend Sodium levels ID Sepsis 2/2 LE b/l Cellulitis Blood cx- gram negative bacilli Cont IV Zosyn and IV Vanco HEME H/H Stable. No concern for acute bleeding Cont trend dialy CBC's LINES: PIV x2 DVT Prophylaxis- SCDs, SQ Heparin FULL CODE DISPO: ICU. PT/OT ordered Supervising Physician Co-Signing Physician Notes Dr. Velasco was resident physician during care of patient. I separately evaluated patient for hurley portions of the history and the exam. I was present during the critical portion of medical decision making, and I discussed the case with the resident. I generally agree with the findings and plan. Patient with known gram-negative bacteremia, I believe the most likely source is prostatitis secondary to stercoral colitis and large stool burden noted on CT scan. Patient will require a Farrell catheter and continued volume as he is experiencing intermittent hypotension. He is also at risk for alcohol withdrawal. History of Present Illness Attending Physician: Rey Paz History of Present Illness 68 y/o male presented to the ED with a progressive generalized weakness over past 3 days. Since being discharged from the hospital 10 days prior, he has noticed increased lower extremity swelling and then the past 24 hours noticed redness to lower legs with pain to palpation. He drinks 10 beer/day. He is found to have low sodium. Upon initial presentation, patient was obtunded, but this has improved by my evaluation. Allergies Allergy/AdvReac Type Severity Reaction Status Date / Time No Known Allergies Allergy Verified 01/10/19 00:10 Home Medications Home Medications Medication Instructions Recorded Confirmed Type gabapentin 100 mg capsule 300 mg PO TID #180 cap 11/19/18 01/10/19 History pregabalin 100 mg capsule 100 mg PO BID #60 cap 12/04/18 01/10/19 History metoprolol succinate ER 25 mg 25 mg PO DAILY 12/06/18 01/10/19 History tablet,extended release 24 hr metoprolol succinate ER 50 mg 50 mg PO DAILY #30 tab 12/06/18 01/10/19 History tablet,extended release 24 hr albuterol sulfate HFA 90 1 - 2 puff INHALATION Q4H PRN #18 12/13/18 01/10/19 Rx mcg/actuation aerosol inhaler gm atorvastatin 40 mg tablet 40 mg PO HS 12/13/18 01/10/19 History folic acid 400 mcg tablet 0.4 mg PO DAILY 12/13/18 01/10/19 History lisinopril 10 mg tablet 10 mg PO DAILY 12/13/18 01/10/19 History oxcarbazepine 300 mg tablet 300 mg PO BID 12/13/18 01/10/19 History venlafaxine ER 150 mg 150 mg PO DAILY 12/13/18 01/10/19 History capsule,extended release 24 hr vitamin B complex-folic acid 2,000 1 cap PO DAILY 12/13/18 01/10/19 History mcg capsule fluticasone propion-salmeterol 1 inh INHALATION DIRECTED 01/10/19 01/10/19 History [Advair Diskus] Patient History Medical History Face lacerations (Acute) Neuropathy (Chronic) Hypertension (Chronic) Alcohol abuse (Chronic) COPD (chronic obstructive pulmonary disease) (Chronic) Anemia (Acute) Tremor Gross hematuria H/O tooth extraction Lower teeth on 04/23/2018 Hyperlipidemia Slowing of urinary stream Surgical History S/P foot surgery Family History Father Hypertension Aneurysm Mother Swelling Other No significant family history Social History Preferred Language: Grenadian Communication Ability: Effective [employer] General Supervisor Required: No Beliefs That Will Affect Care: None Current Living Situation: Spouse Other Information That Helps Us Care for You: No Feels Safe at Home: Yes Safety Concerns: Feels Safe At This Time Smoking Status: Former smoker Tobacco Type: cigarettes ; Cigarettes Per Day: 10 ; Do You Dip or Chew Tobacco: No ; Second Hand Exposure: No ; Hx Alcohol Use: Yes Alcohol type: beer Alcohol Intake Frequency Comment: 8+ per day Hx Substance Use: No Review of Systems Review of Systems: All systems reviewed & are unremarkable except as noted in HPI & below Physical Exam Constitutional: WD/WN, vitals as above Eyes: PERRL, conjunctivae normal, anicteric sclerae ENMT: external ear and nose normal, oropharynx normal Respiratory: normal respiratory effort, lungs clear to auscultation mild wheezing Cardiovascular: RRR, no murmur, no edema Gastrointestinal (Abdomen): normal bowel sounds, soft, nontender, no hepatosplenomegaly Skin: erythema to b/l lower extremities dorsum feet to mid calf Psychiatric: A+Ox3, euthymic affect Genitourinary: L groin swelling, nontender Results & Data Vital Signs (Past 12 Hours) Vital Signs Temp Pulse Pulse Pulse Resp BP BP 01/10/19 10:26 80 20 80/54 L 01/10/19 10:22 80 13 67/43 L 01/10/19 08:00 36.8 C 78 81 18 87/58 L 01/10/19 04:00 37 C 71 15 76/52 L 01/10/19 02:10 36.7 C 85 18 106/66 01/10/19 01:45 78 12 107/63 01/10/19 01:30 76 14 104/66 Pulse Ox 01/10/19 10:26 01/10/19 10:22 01/10/19 08:00 95 01/10/19 04:00 97 01/10/19 02:10 97 01/10/19 01:45 99 01/10/19 01:30 100 Laboratory Results Laboratory Results - last 24 hr 01/09/19 01/09/19 01/09/19 20:24 21:17 21:27 WBC 23.48 H RBC 4.14 L Hgb 13.6 L POC Hgb 14.6 Hct 38.3 L POC Hct 43 MCV 92.5 MCH 32.9 MCHC 35.5 RDW Std Deviation 46.1 RDW Coeff of Jem 13.6 Plt Count 205 MPV 10.2 Immature Gran % (Auto) 0.2 Neut % (Auto) 94.9 Lymph % (Auto) 2.0 [place] % (Auto) 2.8 Eos % (Auto) 0.1 Baso % (Auto) 0.0 Immature Gran # (Auto) 0.05 H Neut # (Auto) 22.28 H Lymph # (Auto) 0.47 L [place] # (Auto) 0.65 H Eos # (Auto) 0.02 Baso # (Auto) 0.01 PT INR APTT PTT Ratio VBG pH VBG pCO2 VBG pO2 VBG HCO3 VBG O2 Saturation VBG Base Excess Barometric Pressure POC Sodium 117 L* Sodium POC Potassium 3.4 Potassium POC Chloride 71 L Chloride Carbon Dioxide POC Total CO2 35 H Anion Gap POC Anion Gap 16.0 POC BUN 24 H BUN Creatinine POC Creatinine 1.6 H Est Cr Clr Drug Dosing Est GFR ( Amer) Est GFR (Non-Af Amer) BUN/Creatinine Ratio Glucose POC Glucose 115 H POC Glucose (other) TNP Osmolality Lactate Calcium POC Ioniz Calcium Kris 1.10 L Phosphorus Magnesium Total Bilirubin Direct Bilirubin AST ALT Alkaline Phosphatase Ammonia NT-Pro-B Natriuret Pep Total Protein Albumin Globulin Albumin/Globulin Ratio Procalcitonin TSH Random Cortisol Urine Color Urine Appearance Urine pH Ur Specific Phelps Urine Protein Urine Glucose (UA) Urine Ketones Urine Blood Urine Nitrite Urine Bilirubin Urine Urobilinogen Ur Leukocyte Esterase Urine WBC (Auto) Urine RBC (Auto) U Hyaline Cast (Auto) U Epithel Cells (Auto) Urine Bacteria (Auto) Ur Renal Epithelial Cell Urine Osmolality Nasal Screen MRSA (PCR) Stl C. diff Tox B Gene Oxcarbazepine Ethyl Alcohol mg/dL 01/09/19 01/09/19 01/09/19 21:27 21:27 21:27 WBC RBC Hgb POC Hgb Hct POC Hct MCV MCH MCHC RDW Std Deviation RDW Coeff of Jem Plt Count MPV Immature Gran % (Auto) Neut % (Auto) Lymph % (Auto) [place] % (Auto) Eos % (Auto) Baso % (Auto) Immature Gran # (Auto) Neut # (Auto) Lymph # (Auto) [place] # (Auto) Eos # (Auto) Baso # (Auto) PT INR APTT PTT Ratio VBG pH VBG pCO2 VBG pO2 VBG HCO3 VBG O2 Saturation VBG Base Excess Barometric Pressure POC Sodium Sodium 119 L* POC Potassium Potassium 3.4 L POC Chloride Chloride 75 L Carbon Dioxide 35 H POC Total CO2 Anion Gap 9.0 POC Anion Gap POC BUN BUN 22 H Creatinine 1.52 H POC Creatinine Est Cr Clr Drug Dosing 51.7 Est GFR ( Amer) 54.6 Est GFR (Non-Af Amer) 47.1 BUN/Creatinine Ratio 14.7 Glucose 107 H POC Glucose POC Glucose (other) Osmolality Lactate 1.4 Calcium 8.7 POC Ioniz Calcium Kris Phosphorus 3.5 Magnesium 1.9 Total Bilirubin 1.2 H Direct Bilirubin 0.4 H AST 25 ALT 42 Alkaline Phosphatase 94 Ammonia < 10.0 L NT-Pro-B Natriuret Pep 2601 H Total Protein 6.8 Albumin 3.4 Globulin 3.4 Albumin/Globulin Ratio 1.0 Procalcitonin TSH 0.498 Random Cortisol Urine Color Urine Appearance Urine pH Ur Specific [place]ps Urine Protein Urine Glucose (UA) Urine Ketones Urine Blood Urine Nitrite Urine Bilirubin Urine Urobilinogen Ur Leukocyte Esterase Urine WBC (Auto) Urine RBC (Auto) U Hyaline Cast (Auto) U Epithel Cells (Auto) Urine Bacteria (Auto) Ur Renal Epithelial Cell Urine Osmolality Nasal Screen MRSA (PCR) Stl C. diff Tox B Gene Oxcarbazepine Ethyl Alcohol mg/dL 01/09/19 01/09/19 01/09/19 21:27 21:27 21:27 WBC RBC Hgb POC Hgb Hct POC Hct MCV MCH MCHC RDW Std Deviation RDW Coeff of Jem Plt Count MPV Immature Gran % (Auto) Neut % (Auto) Lymph % (Auto) [place] % (Auto) Eos % (Auto) Baso % (Auto) Immature Gran # (Auto) Neut # (Auto) Lymph # (Auto) [place] # (Auto) Eos # (Auto) Baso # (Auto) PT INR APTT PTT Ratio VBG pH 7.41 VBG pCO2 59 H VBG pO2 22 VBG HCO3 37 VBG O2 Saturation < 60.0 VBG Base Excess 9.8 Barometric Pressure 737.0 POC Sodium Sodium POC Potassium Potassium POC Chloride Chloride Carbon Dioxide POC Total CO2 Anion Gap POC Anion Gap POC BUN BUN Creatinine POC Creatinine Est Cr Clr Drug Dosing Est GFR ( Amer) Est GFR (Non-Af Amer) BUN/Creatinine Ratio Glucose POC Glucose POC Glucose (other) Osmolality Lactate Calcium POC Ioniz Calcium Kris Phosphorus Magnesium Total Bilirubin Direct Bilirubin AST ALT Alkaline Phosphatase Ammonia NT-Pro-B Natriuret Pep Total Protein Albumin Globulin Albumin/Globulin Ratio Procalcitonin TSH Random Cortisol Urine Color Urine Appearance Urine pH Ur Specific [place]ps Urine Protein Urine Glucose (UA) Urine Ketones Urine Blood Urine Nitrite Urine Bilirubin Urine Urobilinogen Ur Leukocyte Esterase Urine WBC (Auto) Urine RBC (Auto) U Hyaline Cast (Auto) U Epithel Cells (Auto) Urine Bacteria (Auto) Ur Renal Epithelial Cell Urine Osmolality Nasal Screen MRSA (PCR) Stl C. diff Tox B Gene Oxcarbazepine Pending Ethyl Alcohol mg/dL < 3.0 01/09/19 01/09/19 01/09/19 21:33 21:33 22:52 WBC RBC Hgb POC Hgb Hct POC Hct MCV MCH MCHC RDW Std Deviation RDW Coeff of Jem Plt Count MPV Immature Gran % (Auto) Neut % (Auto) Lymph % (Auto) [place] % (Auto) Eos % (Auto) Baso % (Auto) Immature Gran # (Auto) Neut # (Auto) Lymph # (Auto) [place] # (Auto) Eos # (Auto) Baso # (Auto) PT Cancelled 10.4 INR Cancelled 1.0 APTT Cancelled 27.0 PTT Ratio Cancelled 1.0 VBG pH VBG pCO2 VBG pO2 VBG HCO3 VBG O2 Saturation VBG Base Excess Barometric Pressure POC Sodium Sodium POC Potassium Potassium POC Chloride Chloride Carbon Dioxide POC Total CO2 Anion Gap POC Anion Gap POC BUN BUN Creatinine POC Creatinine Est Cr Clr Drug Dosing Est GFR ( Amer) Est GFR (Non-Af Amer) BUN/Creatinine Ratio Glucose POC Glucose POC Glucose (other) Osmolality 256 L Lactate Calcium POC Ioniz Calcium Kris Phosphorus Magnesium Total Bilirubin Direct Bilirubin AST ALT Alkaline Phosphatase Ammonia NT-Pro-B Natriuret Pep Total Protein Albumin Globulin Albumin/Globulin Ratio Procalcitonin TSH Random Cortisol Urine Color Urine Appearance Urine pH Ur Specific [place]ps Urine Protein Urine Glucose (UA) Urine Ketones Urine Blood Urine Nitrite Urine Bilirubin Urine Urobilinogen Ur Leukocyte Esterase Urine WBC (Auto) Urine RBC (Auto) U Hyaline Cast (Auto) U Epithel Cells (Auto) Urine Bacteria (Auto) Ur Renal Epithelial Cell Urine Osmolality Nasal Screen MRSA (PCR) Stl C. diff Tox B Gene Oxcarbazepine Ethyl Alcohol mg/dL 01/10/19 01/10/19 01/10/19 00:40 00:40 00:55 WBC RBC Hgb POC Hgb Hct POC Hct MCV MCH MCHC RDW Std Deviation RDW Coeff of Jem Plt Count MPV Immature Gran % (Auto) Neut % (Auto) Lymph % (Auto) [place] % (Auto) Eos % (Auto) Baso % (Auto) Immature Gran # (Auto) Neut # (Auto) Lymph # (Auto) [place] # (Auto) Eos # (Auto) Baso # (Auto) PT INR APTT PTT Ratio VBG pH VBG pCO2 VBG pO2 VBG HCO3 VBG O2 Saturation VBG Base Excess Barometric Pressure POC Sodium Sodium POC Potassium Potassium POC Chloride Chloride Carbon Dioxide POC Total CO2 Anion Gap POC Anion Gap POC BUN BUN Creatinine POC Creatinine Est Cr Clr Drug Dosing Est GFR ( Amer) Est GFR (Non-Af Amer) BUN/Creatinine Ratio Glucose POC Glucose POC Glucose (other) Osmolality Lactate Calcium POC Ioniz Calcium Kris Phosphorus Magnesium Total Bilirubin Direct Bilirubin AST ALT Alkaline Phosphatase Ammonia NT-Pro-B Natriuret Pep Total Protein Albumin Globulin Albumin/Globulin Ratio Procalcitonin TSH Random Cortisol Urine Color Yellow Urine Appearance Clear Urine pH 6.5 Ur Specific Phelps 1.018 Urine Protein Trace H Urine Glucose (UA) Negative Urine Ketones Trace H Urine Blood Negative Urine Nitrite Positive A Urine Bilirubin Negative Urine Urobilinogen Negative Ur Leukocyte Esterase 1+ H Urine WBC (Auto) 10-30 H Urine RBC (Auto) 0-4 U Hyaline Cast (Auto) 1-5 U Epithel Cells (Auto) >30 H Urine Bacteria (Auto) 2+ H Ur Renal Epithelial Cell Not Reportable Urine Osmolality 275 L Nasal Screen MRSA (PCR) Stl C. diff Tox B Gene Negative Cdiff Gene Oxcarbazepine Ethyl Alcohol mg/dL 01/10/19 01/10/19 01/10/19 01:16 04:11 04:11 WBC 21.17 H RBC 3.49 L Hgb 11.4 L POC Hgb 10.9 L Hct 31.9 L POC Hct 32 L MCV 91.4 MCH 32.7 MCHC 35.7 RDW Std Deviation 45.1 RDW Coeff of Jem 13.7 Plt Count 161 MPV 9.5 Immature Gran % (Auto) Neut % (Auto) Lymph % (Auto) [place] % (Auto) Eos % (Auto) Baso % (Auto) Immature Gran # (Auto) Neut # (Auto) Lymph # (Auto) [place] # (Auto) Eos # (Auto) Baso # (Auto) PT INR APTT PTT Ratio VBG pH VBG pCO2 VBG pO2 VBG HCO3 VBG O2 Saturation VBG Base Excess Barometric Pressure POC Sodium 120 L Sodium 125 L D POC Potassium 3.3 Potassium 3.0 L POC Chloride 80 L Chloride 85 L Carbon Dioxide 29 POC Total CO2 30 Anion Gap 11.0 POC Anion Gap 15.0 L POC BUN 21 H BUN 21 H Creatinine 1.17 D POC Creatinine 1.5 H Est Cr Clr Drug Dosing 65.6 Est GFR ( Amer) 74.9 Est GFR (Non-Af Amer) 64.6 BUN/Creatinine Ratio 18.1 Glucose 102 H POC Glucose POC Glucose (other) 102 H Osmolality Lactate Calcium 7.4 L POC Ioniz Calcium Kris 0.95 L Phosphorus Magnesium Total Bilirubin 0.9 Direct Bilirubin 0.4 H AST 20 ALT 31 Alkaline Phosphatase 64 Ammonia NT-Pro-B Natriuret Pep Total Protein 5.3 L D Albumin 2.5 L Globulin 2.8 Albumin/Globulin Ratio 0.9 Procalcitonin TSH Random Cortisol Urine Color Urine Appearance Urine pH Ur Specific [place] Urine Protein Urine Glucose (UA) Urine Ketones Urine Blood Urine Nitrite Urine Bilirubin Urine Urobilinogen Ur Leukocyte Esterase Urine WBC (Auto) Urine RBC (Auto) U Hyaline Cast (Auto) U Epithel Cells (Auto) Urine Bacteria (Auto) Ur Renal Epithelial Cell Urine Osmolality Nasal Screen MRSA (PCR) Stl C. diff Tox B Gene Oxcarbazepine Ethyl Alcohol mg/dL 01/10/19 01/10/19 01/10/19 11:25 11:25 12:28 WBC RBC Hgb POC Hgb Hct POC Hct MCV MCH MCHC RDW Std Deviation RDW Coeff of Jem Plt Count MPV Immature Gran % (Auto) Neut % (Auto) Lymph % (Auto) [place] % (Auto) Eos % (Auto) Baso % (Auto) Immature Gran # (Auto) Neut # (Auto) Lymph # (Auto) [place] # (Auto) Eos # (Auto) Baso # (Auto) PT INR APTT PTT Ratio VBG pH VBG pCO2 VBG pO2 VBG HCO3 VBG O2 Saturation VBG Base Excess Barometric Pressure POC Sodium Sodium 124 L POC Potassium Potassium 2.9 L POC Chloride Chloride 85 L Carbon Dioxide 32 POC Total CO2 Anion Gap 7.0 POC Anion Gap POC BUN BUN 22 H Creatinine 1.32 POC Creatinine Est Cr Clr Drug Dosing 58.2 Est GFR ( Amer) 64.7 Est GFR (Non-Af Amer) 55.8 BUN/Creatinine Ratio 16.8 Glucose 114 H POC Glucose POC Glucose (other) Osmolality Lactate Calcium 7.5 L POC Ioniz Calcium Kris Phosphorus 3.2 Magnesium Total Bilirubin Direct Bilirubin AST ALT Alkaline Phosphatase Ammonia NT-Pro-B Natriuret Pep Total Protein Albumin Globulin Albumin/Globulin Ratio Procalcitonin 1.37 H TSH Random Cortisol 21.23 Urine Color Urine Appearance Urine pH Ur Specific [place] Urine Protein Urine Glucose (UA) Urine Ketones Urine Blood Urine Nitrite Urine Bilirubin Urine Urobilinogen Ur Leukocyte Esterase Urine WBC (Auto) Urine RBC (Auto) U Hyaline Cast (Auto) U Epithel Cells (Auto) Urine Bacteria (Auto) Ur Renal Epithelial Cell Urine Osmolality Nasal Screen MRSA (PCR) Stl C. diff Tox B Gene Oxcarbazepine Ethyl Alcohol mg/dL 01/10/19 Unknown WBC RBC Hgb POC Hgb Hct POC Hct MCV MCH MCHC RDW Std Deviation RDW Coeff of Jem Plt Count MPV Immature Gran % (Auto) Neut % (Auto) Lymph % (Auto) [place] % (Auto) Eos % (Auto) Baso % (Auto) Immature Gran # (Auto) Neut # (Auto) Lymph # (Auto) [place] # (Auto) Eos # (Auto) Baso # (Auto) PT INR APTT PTT Ratio VBG pH VBG pCO2 VBG pO2 VBG HCO3 VBG O2 Saturation VBG Base Excess Barometric Pressure POC Sodium Sodium POC Potassium Potassium POC Chloride Chloride Carbon Dioxide POC Total CO2 Anion Gap POC Anion Gap POC BUN BUN Creatinine POC Creatinine Est Cr Clr Drug Dosing Est GFR ( Amer) Est GFR (Non-Af Amer) BUN/Creatinine Ratio Glucose POC Glucose POC Glucose (other) Osmolality Lactate Calcium POC Ioniz Calcium Kris Phosphorus Magnesium Total Bilirubin Direct Bilirubin AST ALT Alkaline Phosphatase Ammonia NT-Pro-B Natriuret Pep Total Protein Albumin Globulin Albumin/Globulin Ratio Procalcitonin TSH Random Cortisol Urine Color Urine Appearance Urine pH Ur Specific [place] Urine Protein Urine Glucose (UA) Urine Ketones Urine Blood Urine Nitrite Urine Bilirubin Urine Urobilinogen Ur Leukocyte Esterase Urine WBC (Auto) Urine RBC (Auto) U Hyaline Cast (Auto) U Epithel Cells (Auto) Urine Bacteria (Auto) Ur Renal Epithelial Cell Urine Osmolality Nasal Screen MRSA (PCR) Negative Stl C. diff Tox B Gene Oxcarbazepine Ethyl Alcohol mg/dL Medications Administered Current Inpatient Medications Acetaminophen (Tylenol) 650 mg PO Q4H PRN PRN Reason: mild pain or fever Stop: 02/09/19 02:31 Albuterol (Ventolin 0.083% 2.5mg/3ml) 2.5 mg NEB Q2H PRN PRN Reason: SOB/wheezing Stop: 02/09/19 02:31 Atorvastatin Calcium (Lipitor) 40 mg PO HS DEBBY Stop: 02/09/19 20:59 Folic Acid (Folvite) 400 mcg PO DAILY DEBBY Stop: 02/09/19 08:59 Last Admin: 01/10/19 08:24 Dose: 400 mcg Documented by: Gabapentin (Neurontin) 300 mg PO TID DEBBY Stop: 02/09/19 08:59 Last Admin: 01/10/19 08:25 Dose: 300 mg Documented by: Heparin Sodium (Porcine) (Heparin Sodium (Porcine)) 5,000 units SQ Q8 DEBBY Stop: 02/09/19 07:29 Last Admin: 01/10/19 08:24 Dose: 5,000 units Documented by: Lorazepam (Ativan) 1 mg in 2 mls @ 2 mls/min IV ONE PRN; Protocol PRN Reason: EtoH Withdrawal AWSS 6-10 Stop: 02/09/19 02:31 Piperacillin Sod/Tazobactam (Sod 3.375 gm/ Dextrose) 115 mls @ 28.75 mls/hr IV Q8H DEBBY; Protocol Stop: 01/20/19 03:59 Last Infusion: 01/10/19 08:21 Dose: Infused Documented by: Vancomycin HCl 1,250 mg/ (Sodium Chloride) 275 mls @ 125 mls/hr IV Q14H DEBBY Stop: 01/20/19 09:59 Last Infusion: 01/10/19 12:52 Dose: Infused Documented by: Lactated Ringer's (Lr) 1,000 mls @ 125 mls/hr IV .Q8H DEBBY Stop: 02/09/19 08:59 Last Admin: 01/10/19 10:14 Dose: 125 mls/hr Documented by: Norepinephrine Bitartrate 8 mg (/ Dextrose) 508 mls @ 16.04 mls/hr IV .Q24H [facility]; Protocol Stop: 02/09/19 13:11 Ioversol (Optiray 320 100ml) 100 ml IV ONCE PRN PRN Reason: Interaction Checking Stop: 01/13/19 23:51 Last Admin: 01/09/19 23:52 Dose: 92 ml Documented by: Metoprolol Succinate (Toprol Xl) 25 mg PO DAILY [facility] Stop: 02/09/19 08:59 Last Admin: 01/10/19 08:22 Dose: Not Given Documented by: Metoprolol Succinate (Toprol Xl) 50 mg PO DAILY [facility] Stop: 02/09/19 08:59 Last Admin: 01/10/19 08:22 Dose: Not Given Documented by: Miscellaneous Information (Consult) 1 ea N/A UD PRN PRN Reason: Consult Stop: 02/09/19 02:31 Miscellaneous Information (Consult) 1 ea N/A UD PRN PRN Reason: Consult Stop: 02/09/19 02:31 Ondansetron HCl (Zofran) 4 mg IV Q6H PRN PRN Reason: nausea or vomiting Stop: 02/09/19 02:31 Oxcarbazepine (Trileptal) 300 mg PO BID [facility] Stop: 02/09/19 08:59 Last Admin: 01/10/19 08:25 Dose: 300 mg Documented by: Pantoprazole Sodium (Protonix) 40 mg PO QAM [facility] Stop: 02/09/19 08:59 Last Admin: 01/10/19 08:24 Dose: 40 mg Documented by: Pregabalin (Lyrica) 100 mg PO BID [facility] Stop: 02/09/19 08:59 Last Admin: 01/10/19 08:29 Dose: 100 mg Documented by: Fluticasone/Salmeterol (Advair Diskus 500/50) 1 puffs INH BID [facility] Stop: 02/09/19 08:59 Last Admin: 01/10/19 08:22 Dose: 1 puffs Documented by: Thiamine HCl (Vitamin B-1) 100 mg PO QAM [facility] Stop: 02/09/19 08:59 Last Admin: 01/10/19 08:25 Dose: 100 mg Documented by: Venlafaxine HCl (Effexor Extended Release) 150 mg PO DAILY [facility] Stop: 02/09/19 08:59 Last Admin: 01/10/19 08:25 Dose: 150 mg Documented by: Vitamin B Complex (Vitamin B Complex) 1 tab PO DAILY DEBBY Stop: 02/09/19 08:59 Last Admin: 01/10/19 08:25 Dose: 1 tab Documented by: PG Care Time/CCT Total # of Minutes Spent Total Time Spent with Patient: Total time spent is greater than 50% in coordination of care (as documented) at patient's floor/unit and/or counseling patient: Total Critical Care Time: 35 I have personally spent 35 minutes of critical care time in the direct management of this patient. This is a life/limb threatening event. This includes time spent evaluating patient, direct bedside care, chart review, placing orders, interpretation of diagnostic studies, discussion with consultants, patient, and/or family members regarding treatment decisions, as well as other required patient management activities. This time is exclusive of all separately billable procedures, and teaching time and separate from and in addition to any other critical care service time. Resident Activity Tracking Resident Involvement: Resident Care Provided Care Provided: Adult [facility]
[2019-01-10] MEDS: NOREPINEPHRINE BIT INJ 8 MG in DEXTROSE 5% 500 ML IV SCH (13:34)
[2019-01-10] MEDS: POTASSIUM CHLORIDE / WTR 10 MEQ/100 ML PLCT IV SCH ×4 (15:27→18:37)
[2019-01-10] MEDS ORDERED: CALCIUM GLUCONATE 10% 1,000 MG in SODIUM CHLORIDE 0.9% 50 ML IV STA (15:39)
[2019-01-10] MEDS: ATORVASTATIN 40 MG TAB PO SCH (20:31)
[2019-01-10 20:49] LABS: Albumin Level 2.4 gm/dl (3.4-5.0); BUN Creatinine Ratio 12.9 (10-20); Calcium 7.9 mg/dl (8.5-10.1); Creatinine Clr Calc Pharmacy 50.2 ml/min; Est GFR (African American) 54.1; Est GFR (Non-African American) 46.7; Magnesium 1.7 mg/dl (1.8-2.4); Potassium 3.3 mmol/L (3.5-5.1)
[2019-01-10 21:00] LABS: Albumin Globulin Ratio 0.8 (0.9-2); Bilirubin Direct 0.3 mg/dl (0-0.2); Bilirubin,Total 0.4 mg/dl (0.2-1); Globulin 2.8 gm/dl (2.5-4.0); Phosphorus 1.9 mg/dl (2.5-4.9); Total Protein 5.2 gm/dl (6.4-8.2)
[2019-01-10] MEDS ORDERED: MAGNESIUM SULFATE / D5W 1 GM/100 ML BAG IV ONE (21:08)
[2019-01-10] MEDS ORDERED: POTASSIUM PHOS 3 MMOL/1 ML INFUSION IV STA (21:08)
[2019-01-10] MEDS ORDERED: POTASSIUM PHOSPHATE 24 MMOL in SODIUM CHLORIDE 0.9% 500 ML IV ONE (21:30)
[2019-01-11] MEDS: VANCOMYCIN HCL 1,250 MG in SODIUM CHLORIDE 0.9% 250 ML IV SCH ×2 (00:10→16:14)
[2019-01-11] MEDS: LACTATED RINGER'S 1,000 ML IV SCH ×2 (00:13→03:55)
[2019-01-11] MEDS: PIPERACILLIN/TAZOBACTAM 3.375 GM in DEXTROSE 5% 100 ML IV SCH ×3 (03:55→20:08)
[2019-01-11 05:31] LABS: Hematocrit (blood only) 28.7 % (42-52); Hemoglobin 9.9 g/dL (14.0-18.0); Mean Corpuscular Hemoglobin 32.4 pg (25-34); Mean Corpuscular Hgb Conc 34.5 g/dL (32-36); Mean Corpuscular Volume 93.8 fL (80-100); Mean Platelet Volume 9.9 fL (7.4-10.4); Platelet Count 133 K/uL (130-400); RDW Coefficient of Variation 13.9 % (11.5-14.5); RDW Standard Deviation 47.7 fL (36.4-46.3); Red Blood Count 3.06 M/uL (4.7-6.1); White Blood Count 13.26 K/uL (4.8-10.8)
[2019-01-11] MEDS: HEPARIN SOD 5,000 UNIT/0.5 ML VIAL SQ SCH ×3 (05:35→21:53)
[2019-01-11 06:05] LABS: Albumin Level 2.3 gm/dl (3.4-5.0); BUN Creatinine Ratio 12.8 (10-20); Bilirubin Direct 0.3 mg/dl (0-0.2); Calcium 7.8 mg/dl (8.5-10.1); Creatinine Clr Calc Pharmacy 68.6 ml/min; Est GFR (African American) 78.9; Est GFR (Non-African American) 68.1; Potassium 3.4 mmol/L (3.5-5.1)
[2019-01-11 06:08] LABS: Albumin Globulin Ratio 0.8 (0.9-2); Bilirubin,Total 0.5 mg/dl (0.2-1); Globulin 2.8 gm/dl (2.5-4.0); Total Protein 5.1 gm/dl (6.4-8.2)
--- NOTE | 2019-01-11 07:00 | XRay Report ---
KUB HISTORY: Acute generalized abdominal pain Abdominal pain COMPARISON: CT abdomen and pelvis 01/09/2019 FINDINGS: The bowel gas pattern is non-obstructive. Mild gaseous distention of the transverse colon. There is no organomegaly. No renal calculi. No ureteral calculi. No pneumoperitoneum or pneumatosis. Hardware of the right proximal femur redemonstrated with adjacent heterotopic ossifications. Degener ative changes of the spine and hips. No fracture. IMPRESSION: Nonobstructive bowel gas pattern. Electronically signed by: Jim Portillo M.D. 01/11/2019 6:59 AM
[2019-01-11] MEDS: FLUTICASONE/SALMETEROL (ADVAIR) 500/50 INH 14 PUFF INH SCH ×2 (08:03→20:33)
[2019-01-11] MEDS: PANTOprazole 40 MG TAB PO SCH (08:04)
[2019-01-11] MEDS: GABAPENTIN 300 MG CAP PO SCH ×3 (08:04→20:34)
[2019-01-11] MEDS: THIAMINE HCL 100 MG TAB PO SCH (08:04)
[2019-01-11] MEDS: VENLAFAXINE HCL XR 150 MG CAPXR PO SCH (08:04)
[2019-01-11] MEDS: VITAMIN B COMPLEX TAB PO SCH (08:05)
[2019-01-11] MEDS: OXcarbazepine 150 MG TABLET PO SCH ×2 (08:05→20:34)
[2019-01-11] MEDS: FOLIC ACID 400 MCG TAB PO SCH (08:05)
[2019-01-11] MEDS: PREGABALIN 100 MG CAP PO SCH ×2 (08:08→20:34)
--- NOTE | 2019-01-11 08:09 | Critical Care Progress Note ---
Date of Service January 11, 2019 Assessment & Plan (1) Admitted to intensive care unit: Reason Critically Ill: Sepsis secondary to LE cellulitis requiring pressor support NEURO ICU CAM: NEGATIVE Metabolic encephalopathy- Improved. Cont with IVF and hyponatremia tx CT head neg Ammonia WNL Acute Alcohol Withdrawal- cont trend CIWA scores Thiamine 100 po qam, Folic acid 400 mcg Neuropathy- cont gabapentin 300 mg TID, Lyrica 100 mg BID CV Hypotension- 2/2 sepsis. Hemodynamically has improved DC'd pressor support Cont IVF with Normosol at 80 HTN, HLD- Cont Atorvastatin 40 mg hs, Hold Toprol XL PULM COPD- stable Continue Advair PRN albuterol nebs ABD/GI Protonix 40 mg qam PO No other acute concerns /RENAL Acute hyponatremia- Likely 2/2 beer potomania Normosol at 80 Cont trend Sodium levels q8h Prostatitis 2/2 sepsis Replete Lytes as needed ID Sepsis 2/2 LE b/l Cellulitis or more likely prostatitis 2/2 stercoral colitis Blood cx- gram negative bacilli Cont IV Zosyn and IV Vanco HEME H/H Stable. No concern for acute bleeding Cont trend dialy CBC's LINES: PIV x2, R arm PICC, Farrell DVT Prophylaxis- SCDs, SQ Heparin FULL CODE DISPO: ICU. PT/OT ordered Supervising Physician Co-Signing Physician Notes Dr. Velasco was resident physician during care of patient. I separately evaluated patient for hurley portions of the history and the exam. I was present during the critical portion of medical decision making, and I discussed the case with the resident. I generally agree with the findings and plan. Acute encephalopathy is largely remained unchanged, his sodium has remained steady we will transition from LR to Normosol today continue checking sodiums every 8 hours x 3. Hemodynamically he has improved and he is off vasoactive medication. 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 Repeat blood cultures today continue Zosyn and awaiting speciation. Subjective 68 yo M found in bed this AM in NAD. Overnight reports of some agitation with nursing staff. Today cognition seems about the same as yesterday, not much improvement if any. Tolerating PO intake. No other acute concerns or complaints. Review of Systems Review of Systems: All systems reviewed & are unremarkable except as noted in HPI & below Physical Exam Constitutional: WD/WN, vitals as above Eyes: PERRL, conjunctivae normal, anicteric sclerae ENMT: external ear and nose normal, oropharynx normal Respiratory: normal respiratory effort, lungs clear to auscultation Cardiovascular: RRR, no murmur, no edema Gastrointestinal (Abdomen): normal bowel sounds, soft, nontender, no hepatosplenomegaly Skin: erythema to b/l lower extremities dorsum feet to mid calf Psychiatric: A+Ox3, euthymic affect Lymphatic: L groin swelling, nontender, chronic Results & Data Vital Signs (Past 12 Hours) Vital Signs Temp Pulse Pulse Resp BP BP Pulse Ox 01/11/19 06:00 68 15 95/61 L 100 01/11/19 05:00 76 13 107/66 100 01/11/19 04:00 36.9 C 75 17 137/83 100 01/11/19 03:00 71 16 110/70 100 01/11/19 02:00 65 17 95/59 L 100 01/11/19 01:00 72 16 122/74 100 01/11/19 00:00 37.0 C 66 19 96/61 L 97 01/10/19 23:00 69 17 91/59 L 97 01/10/19 22:01 78 18 114/69 100 01/10/19 21:01 90 17 125/83 99 PG Care Time/CCT Total # of Minutes Spent Total Time Spent with Patient: Total time spent is greater than 50% in coordination of care (as documented) at patient's floor/unit and/or counseling patient: Critical Care Time: Yes Total Critical Care Time: 35 Resident Activity Tracking Resident Involvement: Resident Care Provided Care Provided: Adult Hospital Medicine
[2019-01-11] MEDS ORDERED: POTASSIUM CHLORIDE 20 MEQ TABCR PO STA (10:11)
[2019-01-11 11:42] LABS: BUN Creatinine Ratio 13.3 (10-20); Calcium 7.6 mg/dl (8.5-10.1); Est GFR (African American) 103.7; Est GFR (Non-African American) 89.5; Potassium 3.3 mmol/L (3.5-5.1)
[2019-01-11] MEDS: NORMOSOL-R 1,000 ML IV SCH (12:01)
[2019-01-11 18:53] LABS: BUN Creatinine Ratio 12.6 (10-20); Calcium 7.4 mg/dl (8.5-10.1); Creatinine Clr Calc Pharmacy 90.1 ml/min; Est GFR (African American) 104.2; Est GFR (Non-African American) 89.9
[2019-01-11] MEDS: ATORVASTATIN 40 MG TAB PO SCH (20:34)
--- NOTE | 2019-01-11 22:34 | Hospitalist Progress Note ---
Date of Service January 11, 2019 Assessment & Plan (1) Sepsis associated hypotension: Patient appears to be in sepsis. Patient has bacteremia with gram negative bacilli. more likely prostatitis 2/2 stercoral colitis Will continue IV antibiotics. On pressors (2) Acute hyponatremia: \ improved to 126 likely beer potomania will monitor (3) Acute hypotension: As noted above, on vasopressors (4) Metabolic encephalopathy: Improving with fluids and treatment hyponatremia. CT head neg Ammonia level normal. (5) Cellulitis: Lower ext IV Zosyn; unsure if this is actually the cause of the sepsis. (6) COPD (chronic obstructive pulmonary disease): At baseline no exacerbation Continue Advair PRN albuterol nebs. (7) Alcohol withdrawal: CIWA orders. (8) Generalized weakness: Multifactorial PT/OT Subjective Patient is no in acute distress. He continues to be confused. Review of Systems Review of Systems: Unobtainable due to cognitive status Physical Exam Physical Exam: General- adult male, NAD Head- atraumatic Eyes- PERRL, EOMI, anicteric ENT- oropharynx clear Neck- supple, no JVD, no adenopathy, no thyromegaly. Lungs- clear to auscultation b/l, No rales or rhonchi. Heart- regular rhythm; no murmur, no gallop, no rub appreciated Abdomen- normal bowel sounds, soft, nontender. Extremities- +2 pitting edema b/l lower ext below knees. Neuro- alert, oriented x 3; PERRL, EOMI. manager administrative services II-XII grossly intact, Non-focal. Skin- warm & dry, erythema to b/l lower extremities dorsum feet to mid calf. Results & Data Vital Signs (Past 12 Hours) Vital Signs Temp Pulse Resp BP Pulse Ox 01/11/19 20:46 36.7 C 01/11/19 20:01 76 13 114/76 100 01/11/19 19:02 91 H 19 128/75 99 01/11/19 18:02 92 H 18 116/65 98 01/11/19 18:00 89 14 97 01/11/19 17:01 99 H 25 H 125/72 91 01/11/19 17:00 99 H 26 H 94 01/11/19 16:01 37.2 C 76 14 110/70 100 01/11/19 16:00 79 13 99 10/12/19 15:30 79 16 99 01/11/19 15:01 78 16 107/65 99 01/11/19 15:00 81 12 99 01/11/19 14:30 74 17 99 01/11/19 14:03 97 01/11/19 14:01 79 17 105/65 100 01/11/19 14:00 82 18 100 01/11/19 13:30 112 H 21 98 01/11/19 13:02 101 H 16 113/69 98 01/11/19 13:00 102 H 17 91 01/11/19 12:02 90 18 110/72 97 01/11/19 12:00 90 14 97 01/11/19 11:32 87 19 109/69 01/11/19 11:00 78 15 PG Care Time/CCT Total # of Minutes Spent Total Time Spent with Patient: Total time spent is greater than 50% in coordination of care (as documented) at patient's floor/unit and/or counseling patient: (1) Alcohol withdrawal Complication of substance-induced condition: with perceptual disturbance Qualified Code(s): 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
[2019-01-12] MEDS: NORMOSOL-R 1,000 ML IV SCH ×3 (00:26→20:12)
[2019-01-12] MEDS ORDERED: VANCOMYCIN TROUGH ONE (03:30)
[2019-01-12] MEDS: PIPERACILLIN/TAZOBACTAM 3.375 GM in DEXTROSE 5% 100 ML IV SCH (03:53)
[2019-01-12] MEDS: VANCOMYCIN HCL 1,250 MG in SODIUM CHLORIDE 0.9% 250 ML IV SCH (03:53)
[2019-01-12 04:16] LABS: Basophils # (auto) 0.01 K/uL (0-0.2); Basophils % (auto) 0.1 %; Eosinophils # (auto) 0.41 K/uL (0-0.5); Eosinophils % (auto) 4.7 %; Hematocrit (blood only) 26.3 % (42-52); Hemoglobin 8.9 g/dL (14.0-18.0); Immature Granulocytes # (auto) 0.02 K/uL (0.00-0.02); Immature Granulocytes % (auto) 0.2 %; Lymphocytes # (auto) 1.27 K/uL (1.2-3.4); Lymphocytes % (auto) 14.5 %; Mean Corpuscular Hemoglobin 32.1 pg (25-34); Mean Corpuscular Hgb Conc 33.8 g/dL (32-36); Mean Corpuscular Volume 94.9 fL (80-100); Mean Platelet Volume 9.4 fL (7.4-10.4); Monocytes # (auto) 0.62 K/uL (0.11-0.59); Monocytes % (auto) 7.1 %; Neutrophils % (auto) 73.4 %; Platelet Count 128 K/uL (130-400); RDW Coefficient of Variation 13.8 % (11.5-14.5); RDW Standard Deviation 48.4 fL (36.4-46.3); Red Blood Count 2.77 M/uL (4.7-6.1); White Blood Count 8.73 K/uL (4.8-10.8)
[2019-01-12 04:44] LABS: Albumin Level 2.1 gm/dl (3.4-5.0); BUN Creatinine Ratio 12.2 (10-20); Bilirubin Direct 0.2 mg/dl (0-0.2); Bilirubin,Total 0.4 mg/dl (0.2-1); Calcium 7.4 mg/dl (8.5-10.1); Creatinine Clr Calc Pharmacy 111.9 ml/min; Est GFR (Non-African American) 98.3; Magnesium 1.7 mg/dl (1.8-2.4); Phosphorus 1.7 mg/dl (2.5-4.9); Total Protein 4.9 gm/dl (6.4-8.2)
[2019-01-12] MEDS ORDERED: MAGNESIUM OXIDE 400 MG TAB PO ONE (05:26)
[2019-01-12] MEDS ORDERED: SODIUM PHOSPHATE 3 MMOL/1 ML 5 ML VIAL IV SCH (05:30)
[2019-01-12] MEDS ORDERED: SODIUM PHOSPHATE 21 MMOL in SODIUM CHLORIDE 0.9% 500 ML IV ONE (05:45)
[2019-01-12] MEDS: HEPARIN SOD 5,000 UNIT/0.5 ML VIAL SQ SCH ×3 (05:51→21:04)
--- NOTE | 2019-01-12 07:15 | Critical Care Progress Note ---
Date of Service January 12, 2019 Assessment & Plan (1) Admitted to intensive care unit: Reason Critically Ill: Sepsis secondary to LE cellulitis requiring pressor support NEURO ICU CAM: NEGATIVE Metabolic encephalopathy- Improved. Cont with IVF and hyponatremia tx CT head neg Ammonia WNL Acute Alcohol Withdrawal- cont trend CIWA scores Thiamine 100 po qam, Folic acid 400 mcg Neuropathy- cont gabapentin 300 mg TID, Lyrica 100 mg BID CV Hypotension- 2/2 sepsis. Hemodynamically has improved DC'd pressor support Cont IVF with Normosol at 80 HTN, HLD- Cont Atorvastatin 40 mg hs, Hold Toprol XL PULM COPD- stable Continue Advair PRN albuterol nebs ABD/GI Protonix 40 mg qam PO No other acute concerns /RENAL Acute hyponatremia- Likely 2/2 beer potomania Normosol at 80 Cont trend Sodium levels q8h Prostatitis 2/2 sepsis Replete Lytes as needed ID Sepsis 2/2 LE b/l Cellulitis or more likely prostatitis 2/2 stercoral colitis Klebsiella bacteremia from both blood and urine cx, pansensitive DC'd IV Zosyn and IV Vanco , start PO Levaquin 750 mg daily for 6 wks HEME H/H Stable. No concern for acute bleeding Cont trend dialy CBC's LINES: PIV x2, R arm PICC, Farrell DVT Prophylaxis- SCDs, SQ Heparin FULL CODE DISPO: Stable for downgrade out of ICU Supervising Physician Co-Signing Physician Notes Dr. Velasco was resident physician during care of patient. I separately evaluated patient for hurley portions of the history and the exam. I was present during the critical portion of medical decision making, and I discussed the case with the resident. I generally agree with the findings and plan. Klebsiella bacteremia, this was isolated from the blood and urine, I am concerned for possible prostatitis given the stercoral colitis and changes on CT in and around the prostate. Patient was slated to have cystoscopy at some point, I feel we can switch from IV to oral medication as the Klebsiella is pansensitive we will plan for 6 weeks of Levaquin therapy as we consider this to be of prostatic infection. Patient's encephalopathy has improved, he would be stable for downgrade out of the ICU. Subjective 68 yo M found in bed this AM in NAD. No acute overnight events. Mentation improved. Tolerating PO intake. No other acute concerns or complaints. Review of Systems Review of Systems: All systems reviewed & are unremarkable except as noted in HPI & below Physical Exam Constitutional: WD/WN, vitals as above Eyes: PERRL, conjunctivae normal, anicteric sclerae ENMT: external ear and nose normal, oropharynx normal Respiratory: normal respiratory effort, lungs clear to auscultation Cardiovascular: RRR, no murmur, no edema Gastrointestinal (Abdomen): normal bowel sounds, soft, nontender, no hepatosplenomegaly Skin: erythema to b/l lower extremities dorsum feet to mid calf Psychiatric: A+Ox3, euthymic affect Lymphatic: L groin swelling, nontender, chronic Results & Data Vital Signs (Past 12 Hours) Vital Signs Temp Pulse Resp BP Pulse Ox 01/12/19 06:01 77 15 126/77 100 01/12/19 05:02 81 24 104/63 100 01/12/19 04:02 81 12 108/66 98 01/12/19 04:00 36.7 C 01/12/19 03:01 71 16 94/58 L 94 01/12/19 02:01 72 15 95/57 L 96 01/12/19 01:01 74 15 102/59 L 91 01/12/19 00:31 37.0 C 01/12/19 00:01 75 15 103/62 98 01/11/19 23:01 76 14 99/60 L 97 01/11/19 22:25 81 15 102/59 L 98 01/11/19 21:02 86 14 130/79 99 01/11/19 20:46 36.7 C 01/11/19 20:01 76 13 114/76 100 Laboratory Results Laboratory Results - last 24 hr 01/11/19 01/11/19 01/11/19 10:35 18:02 20:15 WBC RBC Hgb Hct MCV MCH MCHC RDW Std Deviation RDW Coeff of Jem Plt Count MPV Immature Gran % (Auto) Neut % (Auto) Lymph % (Auto) [place] % (Auto) Eos % (Auto) Baso % (Auto) Immature Gran # (Auto) Neut # (Auto) Lymph # (Auto) [place] # (Auto) Eos # (Auto) Baso # (Auto) Sodium 126 L 126 L Potassium 3.3 L 4.0 D Chloride 88 L 90 L Carbon Dioxide 31 31 Anion Gap 7.0 5.0 BUN 12 11 Creatinine 0.88 0.87 Est Cr Clr Drug Dosing 89.0 90.1 Est GFR ( Amer) 103.7 104.2 Est GFR (Non-Af Amer) 89.5 89.9 BUN/Creatinine Ratio 13.3 12.6 Glucose 96 111 H POC Glucose 105 H Calcium 7.6 L 7.4 L Phosphorus Magnesium Total Bilirubin Direct Bilirubin AST ALT Alkaline Phosphatase Total Protein Albumin Procalcitonin Vancomycin Trough 01/12/19 01/12/19 01/12/19 03:47 03:47 03:47 WBC 8.73 RBC 2.77 L Hgb 8.9 L Hct 26.3 L MCV 94.9 MCH 32.1 MCHC 33.8 RDW Std Deviation 48.4 H RDW Coeff of Jem 13.8 Plt Count 128 L MPV 9.4 Immature Gran % (Auto) 0.2 Neut % (Auto) 73.4 Lymph % (Auto) 14.5 [place] % (Auto) 7.1 Eos % (Auto) 4.7 Baso % (Auto) 0.1 Immature Gran # (Auto) 0.02 Neut # (Auto) 6.40 Lymph # (Auto) 1.27 [place] # (Auto) 0.62 H Eos # (Auto) 0.41 Baso # (Auto) 0.01 Sodium 126 L Potassium 4.0 Chloride 90 L Carbon Dioxide 31 Anion Gap 5.0 BUN 9 Creatinine 0.70 Est Cr Clr Drug Dosing 111.9 Est GFR ( Amer) 114.0 Est GFR (Non-Af Amer) 98.3 BUN/Creatinine Ratio 12.2 Glucose 77 POC Glucose Calcium 7.4 L Phosphorus 1.7 L Magnesium 1.7 L Total Bilirubin 0.4 Direct Bilirubin 0.2 AST 49 H ALT 56 Alkaline Phosphatase 66 Total Protein 4.9 L Albumin 2.1 L Procalcitonin Vancomycin Trough 17.1 01/12/19 03:47 WBC RBC Hgb Hct MCV MCH MCHC RDW Std Deviation RDW Coeff of Jem Plt Count MPV Immature Gran % (Auto) Neut % (Auto) Lymph % (Auto) [place] % (Auto) Eos % (Auto) Baso % (Auto) Immature Gran # (Auto) Neut # (Auto) Lymph # (Auto) [place] # (Auto) Eos # (Auto) Baso # (Auto) Sodium Potassium Chloride Carbon Dioxide Anion Gap BUN Creatinine Est Cr Clr Drug Dosing Est GFR ( Amer) Est GFR (Non-Af Amer) BUN/Creatinine Ratio Glucose POC Glucose Calcium Phosphorus Magnesium Total Bilirubin Direct Bilirubin AST ALT Alkaline Phosphatase Total Protein Albumin Procalcitonin 0.25 Vancomycin Trough Medications Administered Current Inpatient Medications Acetaminophen (Tylenol) 650 mg PO Q4H PRN PRN Reason: mild pain or fever Stop: 02/09/19 02:31 Albuterol (Ventolin 0.083% 2.5mg/3ml) 2.5 mg NEB Q2H PRN PRN Reason: SOB/wheezing Stop: 02/09/19 02:31 Atorvastatin Calcium (Lipitor) 40 mg PO HS DEBBY Stop: 02/09/19 20:59 Last Admin: 01/11/19 20:34 Dose: 40 mg Documented by: Folic Acid (Folvite) 400 mcg PO DAILY DEBBY Stop: 02/09/19 08:59 Last Admin: 01/12/19 07:30 Dose: 400 mcg Documented by: Gabapentin (Neurontin) 300 mg PO TID DEBBY Stop: 02/09/19 08:59 Last Admin: 01/12/19 07:30 Dose: 300 mg Documented by: Heparin Sodium (Beef Lung) (Heparin Sod 10 Unit/Ml Flush) 5 ml FLUSH PRN PRN PRN Reason: Flush Stop: 02/10/19 00:19 Heparin Sodium (Porcine) (Heparin Sodium (Porcine)) 5,000 units SQ Q8 DEBBY Stop: 02/09/19 07:29 Last Admin: 01/12/19 05:51 Dose: 5,000 units Documented by: Lorazepam (Ativan) 1 mg in 2 mls @ 2 mls/min IV ONE PRN; Protocol PRN Reason: EtoH Withdrawal AWSS 6-10 Stop: 02/09/19 02:31 Norepinephrine Bitartrate 8 mg (/ Dextrose) 508 mls @ 0 mls/hr IV .Q0M DEBBY; Protocol Stop: 02/09/19 13:11 Last Titration: 01/11/19 04:16 Dose: 0 mcg/kg/min, 0 mls/hr Documented by: Parenteral Electrolytes (Normosol-R) 1,000 mls @ 80 mls/hr IV .[id number] [facility] Stop: 02/10/19 10:14 Last Admin: 01/12/19 00:26 Dose: 80 mls/hr Documented by: Sodium Phosphate 21 mmol/ (Sodium Chloride) 507 mls @ 140 mls/hr IV ONE ONE Stop: 01/12/19 09:22 Last Admin: 01/12/19 06:15 Dose: 140 mls/hr Documented by: Ioversol (Optiray 320 100ml) 100 ml IV ONCE PRN PRN Reason: Interaction Checking Stop: 01/13/19 23:51 Last Admin: 01/09/19 23:52 Dose: 92 ml Documented by: Levofloxacin (Levaquin) 750 mg PO DAILY@1100 [facility] Stop: 01/26/19 10:59 Metoprolol Succinate (Toprol Xl) 25 mg PO DAILY [facility] Stop: 02/09/19 08:59 Last Admin: 01/10/19 08:22 Dose: Not Given Documented by: Metoprolol Succinate (Toprol Xl) 50 mg PO DAILY [facility] Stop: 02/09/19 08:59 Last Admin: 01/10/19 08:22 Dose: Not Given Documented by: Ondansetron HCl (Zofran) 4 mg IV Q6H PRN PRN Reason: nausea or vomiting Stop: 02/09/19 02:31 Oxcarbazepine (Trileptal) 300 mg PO BID [facility] Stop: 02/09/19 08:59 Last Admin: 01/12/19 07:31 Dose: 300 mg Documented by: Pantoprazole Sodium (Protonix) 40 mg PO QAM [facility] Stop: 02/09/19 08:59 Last Admin: 01/12/19 07:30 Dose: 40 mg Documented by: Pregabalin (Lyrica) 100 mg PO BID [facility] Stop: 02/09/19 08:59 Last Admin: 01/12/19 07:34 Dose: 100 mg Documented by: Fluticasone/Salmeterol (Advair Diskus 500/50) 1 puffs INH BID [facility] Stop: 02/09/19 08:59 Last Admin: 01/12/19 07:28 Dose: 1 puffs Documented by: Thiamine HCl (Vitamin B-1) 100 mg PO QAM [facility] Stop: 02/09/19 08:59 Last Admin: 01/12/19 07:31 Dose: 100 mg Documented by: Venlafaxine HCl (Effexor Extended Release) 150 mg PO DAILY [facility] Stop: 02/09/19 08:59 Last Admin: 01/12/19 07:30 Dose: 150 mg Documented by: Vitamin B Complex (Vitamin B Complex) 1 tab PO DAILY DEBBY Stop: 02/09/19 08:59 Last Admin: 01/12/19 07:31 Dose: 1 tab Documented by: PG Care Time/CCT Total # of Minutes Spent Total Time Spent with Patient: Total time spent is greater than 50% in coordination of care (as documented) at patient's floor/unit and/or counseling patient: Resident Activity Tracking Resident Involvement: Resident Care Provided Care Provided: Adult Hospital Medicine
[2019-01-12] MEDS: FLUTICASONE/SALMETEROL (ADVAIR) 500/50 INH 14 PUFF INH SCH ×2 (07:28→20:10)
[2019-01-12] MEDS: VENLAFAXINE HCL XR 150 MG CAPXR PO SCH (07:30)
[2019-01-12] MEDS: FOLIC ACID 400 MCG TAB PO SCH (07:30)
[2019-01-12] MEDS: GABAPENTIN 300 MG CAP PO SCH ×3 (07:30→20:11)
[2019-01-12] MEDS: PANTOprazole 40 MG TAB PO SCH (07:30)
[2019-01-12] MEDS: VITAMIN B COMPLEX TAB PO SCH (07:31)
[2019-01-12] MEDS: OXcarbazepine 150 MG TABLET PO SCH ×2 (07:31→20:11)
[2019-01-12] MEDS: THIAMINE HCL 100 MG TAB PO SCH (07:31)
[2019-01-12] MEDS: PREGABALIN 100 MG CAP PO SCH ×2 (07:34→20:11)
[2019-01-12] MEDS: NOREPINEPHRINE BIT INJ 8 MG in DEXTROSE 5% 500 ML IV SCH (10:18)
[2019-01-12] MEDS: levoFLOXacin 750 MG TAB PO SCH (11:07)
--- NOTE | 2019-01-12 17:44 | Hospitalist Progress Note ---
Date of Service January 12, 2019 Assessment & Plan (1) Sepsis associated hypotension: Improvedcontinue antibiotics and supportive care. Appears to have been related to gram-negative urinary tract infection, the concern being that his stercoral colitis led to a generalized pelvic infection i ncluding prostate. (2) Acute hyponatremia: Likely related to beer intake. Overall stable. Continue to follow. (3) Acute hypotension: Resolvedstable for transfer out of ICU. (4) Metabolic encephalopathy: Seems to have improved with treatment of sepsis and improvement in hyponatremia. Continue to follow (5) Cellulitis: Questionablebut Zosyn for urine infection will cover. (6) COPD (chronic obstructive pulmonary disease): Breathing continues to be stable Continue Advair PRN albuterol nebs. (7) Alcohol withdrawal: Appears stable in this regard, continue CIWA orders as needed. (8) Generalized weakness: Multifactorial PT/OT (9) Discharge planning issues: Stable for medical. PT/OT eval and treat Subjective Feeling better, stomach still rambling some, but able to eat well. No other new symptoms. Tolerating food while I am seeing him. Review of Systems Review of Systems: All systems reviewed & are unremarkable except as noted in HPI & below Physical Exam Physical Exam: General he is awake and alert pleasant no distress. HEENT normocephalic atraumatic mucous membranes are moist. Breathing unlabored no accessory muscle use good effort. Skin shows no rashes no pallor or icterus. No focal neuro deficits. Results & Data Vital Signs (Past 12 Hours) Vital Signs Temp Pulse Resp BP Pulse Ox 01/12/19 16:01 78 11 L 144/86 H 01/12/19 16:00 81 13 01/12/19 15:01 77 18 127/78 100 01/12/19 15:00 79 12 100 01/12/19 14:01 86 14 140/85 01/12/19 14:00 90 16 01/12/19 13:01 91 H 22 137/83 100 01/12/19 13:00 91 H 17 98 01/12/19 12:02 98.8 F 87 19 126/72 96 01/12/19 12:00 92 H 19 100 01/12/19 11:01 98.8 F 76 16 111/65 99 01/12/19 11:00 79 16 99 01/12/19 10:02 73 15 102/57 L 99 01/12/19 10:00 73 16 98 01/12/19 09:01 79 15 114/61 100 01/12/19 09:00 80 17 100 01/12/19 08:01 83 21 105/73 100 01/12/19 08:00 98.2 F 85 15 99 01/12/19 07:29 85 19 108/68 98 01/12/19 07:00 79 17 98 01/12/19 06:01 77 15 126/77 100 PG Care Time/CCT Total # of Minutes Spent Total Time Spent with Patient: Total time spent is greater than 50% in coordination of care (as documented) at patient's floor/unit and/or counseling patient: (1) Cellulitis Laterality: unspecified laterality Site of cellulitis: extremity Site of cellulitis of extremity: lower extremity Qualified Code(s): L03.119 - Cellulitis of unspecified part of limb (2) Alcohol withdrawal Complication of substance-induced condition: with perceptual disturbance Qualified Code(s): 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
[2019-01-12] MEDS: ATORVASTATIN 40 MG TAB PO SCH (20:10)
[2019-01-13] MEDS: HEPARIN SOD 5,000 UNIT/0.5 ML VIAL SQ SCH ×3 (06:05→20:29)
[2019-01-13 06:47] LABS: Creatinine Clr Calc Pharmacy 115.4 ml/min; Est GFR (Non-African American) 100.1
[2019-01-13] MEDS: PREGABALIN 100 MG CAP PO SCH ×2 (08:00→20:33)
[2019-01-13] MEDS: GABAPENTIN 300 MG CAP PO SCH ×3 (08:00→20:28)
[2019-01-13] MEDS: FLUTICASONE/SALMETEROL (ADVAIR) 500/50 INH 14 PUFF INH SCH ×2 (08:00→20:28)
[2019-01-13] MEDS: VENLAFAXINE HCL XR 150 MG CAPXR PO SCH (08:01)
[2019-01-13] MEDS: VITAMIN B COMPLEX TAB PO SCH (08:01)
[2019-01-13] MEDS: FOLIC ACID 400 MCG TAB PO SCH (08:01)
[2019-01-13] MEDS: PANTOprazole 40 MG TAB PO SCH (08:01)
[2019-01-13] MEDS: THIAMINE HCL 100 MG TAB PO SCH (08:01)
[2019-01-13] MEDS: OXcarbazepine 150 MG TABLET PO SCH ×2 (08:01→20:29)
[2019-01-13] MEDS: levoFLOXacin 750 MG TAB PO SCH (10:09)
[2019-01-13] MEDS: NORMOSOL-R 1,000 ML IV SCH ×2 (11:58→23:53)
[2019-01-13] MEDS: POLYETHYLENE (MIRALAX) 17 GM PACK PO SCH ×2 (11:58→20:33)
--- NOTE | 2019-01-13 17:51 | Hospitalist Progress Note ---
Date of Service January 13, 2019 Assessment & Plan (1) Sepsis associated hypotension: Improvedcontinue antibiotics and supportive care. Appears to have been related to gram-negative urinary tract infection, the concern being that his stercoral colitis led to a generalized pelvic infection i ncluding prostate. With concern on prostate infectioncorroborated by the fact that he appears to have had 2 urinary tract infections in relatively short orderagree with treatment here to towards clearing prostate infection (2) Acute hyponatremia: Likely related to beer intake. Overall stable. He also notes that he is done drinking beer. Applauded this decision. (3) Acute hypotension: Resolvedwas due to sepsis (4) Metabolic encephalopathy: Seems to have improved with treatment of sepsis and improvement in hyponatremia. Seems to have improved. (5) Cellulitis: Questionable whether it was present at all, but definitely seems to have resolved. (6) COPD (chronic obstructive pulmonary disease): Breathing continues to be stablewith his exam and how sick he was/immobilityI suspect his hypoxia and need for 2 L is atelectasis. Incentive spirometry ordered, activity encouraged. Continue Advair PRN albuterol nebs. (7) Alcohol withdrawal: Appears stable in this regard, and he is now decided that he is not drinking. (8) Generalized weakness: Multifactorial PT/OT eval and treat, suspect there is a high likelihood he will need some sort of rehab facility, we had a lengthy discussion to that end today. (9) Discharge planning issues: Continue on MedSurg DC Farrell PT/OT eval and treat Stable for discharge once he is able to have a safe disposition (rehab versus SNF versus home with outpatient therapy) and assuming that he is able to be wea jh off of the oxygen. Subjective Generally feeling better than before. Still has leg stiffness and weakness, but he notes now it is improving and is only distal to the knees where as before it was overall. He notes not having had a bowel movement since his enemas. He notes not feeling short of breath, and to me he declines that he wears oxygen at home. He notes that he would prefer to not go to a rehab facility if at all possible, although we have a lengthy discussion on this. He notes that last night when he felt like he needed to pee he had a significant leak around the Farrell catheter. Updated him on everything going on with his current care. Answered all questions the best my ability and to his satisfaction. Review of Systems Review of Systems: Unobtainable due to cognitive status Physical Exam Physical Exam: General he is awake and alert pleasant no distress. HEENT normal cephalic atraumatic mucous members are moist. Breathing unlabored lungs overall clear but he does have faint rales bibasilar no accessory muscle use no wheezing no rhonchi good effort. Abdomen soft nondistended he does have left lower quadrant tenderness without guarding rebound or rigidity. Farrell catheter is in place draining yellow urine. Extremities show no cyanosis or clubbing he has chronic appearing approximately 2+ bilateral lower extremity edema and bilateral equal calf tenderness which he also notes is chronic. Skin shows no rashes no pallor or icterus. Neuro shows no focal deficits. Results & Data Vital Signs (Past 12 Hours) Vital Signs Temp Pulse Resp BP Pulse Ox 01/13/19 15:25 98.2 F 104 H 18 127/78 99 01/13/19 15:00 97.9 F 78 20 145/82 H 96 01/13/19 07:16 97.7 F 76 20 113/73 99 PG Care Time/CCT Total # of Minutes Spent Total Time Spent with Patient: Total time spent is greater than 50% in coordination of care (as documented) at patient's floor/unit and/or counseling patient: (1) Cellulitis Laterality: unspecified laterality Site of cellulitis: extremity Site of cellulitis of extremity: lower extremity Qualified Code(s): L03.119 - Cellulitis of unspecified part of limb (2) Alcohol withdrawal Complication of substance-induced condition: with perceptual disturbance Qualified Code(s): 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
[2019-01-13] MEDS: ATORVASTATIN 40 MG TAB PO SCH (20:28)
[2019-01-14] MEDS: HEPARIN SOD 5,000 UNIT/0.5 ML VIAL SQ SCH ×3 (06:26→21:38)
[2019-01-14] MEDS: OXcarbazepine 150 MG TABLET PO SCH ×2 (09:07→21:21)
[2019-01-14] MEDS: PANTOprazole 40 MG TAB PO SCH (09:07)
[2019-01-14] MEDS: VENLAFAXINE HCL XR 150 MG CAPXR PO SCH (09:07)
[2019-01-14] MEDS: GABAPENTIN 300 MG CAP PO SCH ×3 (09:07→21:20)
[2019-01-14] MEDS: THIAMINE HCL 100 MG TAB PO SCH (09:08)
[2019-01-14] MEDS: FOLIC ACID 400 MCG TAB PO SCH (09:08)
[2019-01-14] MEDS: FLUTICASONE/SALMETEROL (ADVAIR) 500/50 INH 14 PUFF INH SCH ×2 (09:08→21:20)
[2019-01-14] MEDS: VITAMIN B COMPLEX TAB PO SCH (09:08)
[2019-01-14] MEDS: PREGABALIN 100 MG CAP PO SCH ×2 (09:12→21:18)
[2019-01-14 09:31] LABS: Basophils # (auto) 0.01 K/uL (0-0.2); Basophils % (auto) 0.1 %; Eosinophils # (auto) 0.32 K/uL (0-0.5); Eosinophils % (auto) 4.6 %; Hematocrit (blood only) 31.3 % (42-52); Hemoglobin 10.5 g/dL (14.0-18.0); Immature Granulocytes # (auto) 0.02 K/uL (0.00-0.02); Immature Granulocytes % (auto) 0.3 %; Lymphocytes % (auto) 14.4 %; Mean Corpuscular Hemoglobin 32.2 pg (25-34); Mean Corpuscular Hgb Conc 33.5 g/dL (32-36); Mean Platelet Volume 8.3 fL (7.4-10.4); Monocytes # (auto) 0.69 K/uL (0.11-0.59); Monocytes % (auto) 9.9 %; Neutrophils # (auto) 4.91 K/uL (1.4-6.5); Neutrophils % (auto) 70.7 %; Platelet Count 141 K/uL (130-400); RDW Coefficient of Variation 13.9 % (11.5-14.5); RDW Standard Deviation 48.9 fL (36.4-46.3); Red Blood Count 3.26 M/uL (4.7-6.1); White Blood Count 6.95 K/uL (4.8-10.8)
[2019-01-14] MEDS: POLYETHYLENE (MIRALAX) 17 GM PACK PO SCH ×2 (09:59→21:19)
[2019-01-14 10:08] LABS: BUN Creatinine Ratio 8.5 (10-20); Calcium 8.7 mg/dl (8.5-10.1); Creatinine Clr Calc Pharmacy 124.7 ml/min; Est GFR (African American) 119.8; Est GFR (Non-African American) 103.4; Potassium 4.3 mmol/L (3.5-5.1)
[2019-01-14] MEDS: levoFLOXacin 750 MG TAB PO SCH (11:12)
[2019-01-14] MEDS: NORMOSOL-R 1,000 ML IV SCH (11:12)
--- NOTE | 2019-01-14 19:31 | Hospitalist Progress Note ---
Date of Service January 14, 2019 Assessment & Plan (1) Sepsis associated hypotension: Improved (2) Acute UTI: Klebsiella in his urine and his blood. ICU had concerns that the stercoral colitis created significant lower pelvic pressure and congestion allowing the infection to occur, certainly given that the patient recently had a UTI as well, other concerns that prostatitis is at play seems quite valid. Fortunately the bacteria sensitive to Levaquingiven the need to clear his bloodstream as well as get good prostate penetration as well as having a bacteria sensitive to it, while Levaquin does carry more risk than other antibiotics, given the unique nature of his infection and what we need to clear it, as well as needing to treat for approximately 6 weeks (and all the iatrogenic risks that would come with needing an IV for 6 weeks) risk-benefit overall seems to favor treating with Levaquin. Anticipate treating for approximately 6 weeks to clear not only the bacteremia but the presumed prostatitis. 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 Seems to run chronically constipated, suspect his heavy alcohol intake contributes. He is improved with an enema. Now he is having some diarrhea and fecal incontinence. We will back down on the MiraLAX to daily, but I also wonder if the incontinence is somewhat due to his colon being slow to contract back down after having been distended for what would presumably be quite a while. (4) Acute hyponatremia: Likely related to beer intake. Overall stable. Yesterday he noted that he is done drinking. Continue to follow BMP periodically. (5) Acute hypotension: Resolvedwas due to sepsis (6) Metabolic encephalopathy: Improved. Now he appears to be stubborn and lacking insight into his weakness, but he seems otherwise coherent, so I suspect most of his encephalopathy has resolved. (7) Cellulitis: Questionable whether it was present at all, but definitely seems to have resolved. (8) COPD (chronic obstructive pulmonary disease): Breathing continues to be stablewith his exam and how sick he was/immobilityI suspect his hypoxia and need for 2 L is atelectasis, as well as the need for pulmonary toilet. Incentive spirometry ordered, activity encouraged. Continue Advair PRN albuterol nebs. (9) Alcohol withdrawal: Appears stable in this regard, and he has now decided that he is not drinking. (10) Generalized weakness: Multifactorial PT/OT eval and treat ongoing. He appears to need some form of rehab, but is refusing to even really consider it. In discussion with case management his family sounds hesitant to be taking care of him at home in his current state, and I understand this. With the fact that he seems so stubborn about wanting to go home and the fact that he lacks insight into his weakness, I harbor concerns about him actually taking measures for safety, making him appear more likely to have a bad outcome from his weakness then someone who seems to have insight and look towards safety first -We will see how he is doing with PT tomorrow, I discussed with him if he is showing rapid improvement then home in another day or 2 could be reasonable, but since most of the time patients do not get stronger in the hospital, a do continue to harbor concerns that he will still need rehab or even as he works with therapy more and is further removed from his ICU time. (11) Discharge planning issues: See above. He would be most appropriate for rehab, insisting on going home which does not appear to be safe at this time. Continue to take things day today and continue discussions with him in addition to therapy and medical treatment Subjective Feeling a bit better. Has had some diarrhea. No fevers chills or sweats. Voiding well without the Farrell. Eating okay. No shortness of breath, is coughing with a little bit of "creamy" mucus. Appears weak to PT, OT, and nursing, but he is adamant that he does not want to go to rehab. Review of Systems Review of Systems: All systems reviewed & are unremarkable except as noted in HPI & below Physical Exam Physical Exam: General he is awake and alert no distress. HEENT normocephalic atraumatic mucous members moist. Lungs faint scattered rhonchi no rales no wheezes good effort. No accessory muscle use. Abdomen soft nondistended he still has a little bit of left lower quadrant tenderness but less tender than yesterday no no guarding no rebound no rigidity. Extremities show no cyanosis or clubbing he has ongoing approximately 2+ lower extremity edema with bilateral equal calf tenderness. No focal neuro deficits. Results & Data Vital Signs (Past 12 Hours) Vital Signs Temp Pulse Resp BP Pulse Ox 01/14/19 15:48 98.4 F 104 H 138/90 100 01/14/19 07:24 97.3 F L 87 24 146/90 H 94 PG Care Time/CCT Total # of Minutes Spent Total Time Spent with Patient: Total time spent is greater than 50% in coordination of care (as documented) at patient's floor/unit and/or counseling patient: (1) Cellulitis Laterality: unspecified laterality Site of cellulitis: extremity Site of cellulitis of extremity: lower extremity Qualified Code(s): L03.119 - Cellulitis of unspecified part of limb (2) Alcohol withdrawal Complication of substance-induced condition: with perceptual disturbance Qualified Code(s): 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
[2019-01-14] MEDS: ACETAMINOPHEN 325 MG TAB PO PRN (21:18)
[2019-01-14] MEDS: ATORVASTATIN 40 MG TAB PO SCH (21:20)
[2019-01-15] MEDS: NORMOSOL-R 1,000 ML IV SCH ×3 (00:08→23:47)
[2019-01-15] MEDS: ACETAMINOPHEN 325 MG TAB PO PRN ×2 (02:18→06:12)
[2019-01-15] MEDS: HEPARIN SOD 5,000 UNIT/0.5 ML VIAL SQ SCH ×3 (05:58→20:45)
[2019-01-15] MEDS: PREGABALIN 100 MG CAP PO SCH ×2 (08:14→20:52)
[2019-01-15] MEDS: GABAPENTIN 300 MG CAP PO SCH ×3 (08:14→20:43)
[2019-01-15] MEDS: PANTOprazole 40 MG TAB PO SCH (08:14)
[2019-01-15] MEDS: VENLAFAXINE HCL XR 150 MG CAPXR PO SCH (08:15)
[2019-01-15] MEDS: VITAMIN B COMPLEX TAB PO SCH (08:15)
[2019-01-15] MEDS: THIAMINE HCL 100 MG TAB PO SCH (08:15)
[2019-01-15] MEDS: FOLIC ACID 400 MCG TAB PO SCH (08:15)
[2019-01-15] MEDS: OXcarbazepine 150 MG TABLET PO SCH ×2 (08:15→20:44)
[2019-01-15] MEDS: FLUTICASONE/SALMETEROL (ADVAIR) 500/50 INH 14 PUFF INH SCH ×2 (08:16→20:41)
[2019-01-15] MEDS: POLYETHYLENE (MIRALAX) 17 GM PACK PO SCH ×2 (08:17→20:52)
[2019-01-15] MEDS: levoFLOXacin 750 MG TAB PO SCH (10:38)
--- NOTE | 2019-01-15 16:19 | Hospitalist Progress Note ---
Date of Service January 15, 2019 Assessment & Plan (1) Sepsis associated hypotension: Improved (2) Acute UTI: Klebsiella in his urine and his blood. ICU had concerns that the stercoral colitis created significant lower pelvic pressure and congestion allowing the infection to occur, certainly given that the patient recently had a UTI as well, other concerns that prostatitis is at play seems quite valid. Fortunately the bacteria sensitive to Levaquingiven the need to clear his bloodstream as well as get good prostate penetration as well as having a bacteria sensitive to it, while Levaquin does carry more risk than other antibiotics, given the unique nature of his infection and what we need to clear it, as well as needing to treat for approximately 6 weeks (and all the iatrogenic risks that would come with needing an IV for 6 weeks) risk-benefit overall seems to favor treating with Levaquin. Anticipate treating for approximately 6 weeks to clear not only the bacteremia but the presumed prostatitis. 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 Seems to run chronically constipated, suspect his heavy alcohol intake contributes. He is improved with an enema. Now he is having some diarrhea and fecal incontinence. We will back down on the MiraLAX to daily, but I also wonder if the incontinence is somewhat due to his colon being slow to contract back down after having been distended for what would presumably be quite a while. (4) Acute hyponatremia: Likely related to beer intake. Overall stable. Yesterday he noted that he is done drinking. Continue to follow BMP periodically. (5) Acute hypotension: Resolvedwas due to sepsis (6) Metabolic encephalopathy: Improved. Now he appears to be stubborn and lacking insight into his weakness, but he seems otherwise coherent, so I suspect most of his encephalopathy has resolved. (7) Cellulitis: Questionable whether it was present at all, but definitely seems to have resolved. (8) COPD (chronic obstructive pulmonary disease): Breathing continues to be stablewith his exam and how sick he was/immobilityI suspect his hypoxia and need for 2 L is atelectasis, as well as the need for pulmonary toilet. Incentive spirometry ordered, activity encouraged. Continue Advair PRN albuterol nebs. (9) Alcohol withdrawal: Appears stable in this regard, and he has now decided that he is not drinking. (10) Generalized weakness: Multifactorial PT/OT eval and treat ongoing. He appears to need some form of rehab, but is refusing to even really consider it. In discussion with case management his family sounds hesitant to be taking care of him at home in his current state, and I understand this. With the fact that he seems so stubborn about wanting to go home and the fact that he lacks insight into his weakness, I harbor concerns about him actually taking measures for safety, making him appear more likely to have a bad outcome from his weakness then someone who seems to have insight and look towards safety first -We will see how he is doing with PT tomorrow, I discussed with him if he is showing rapid improvement then home in another day or 2 could be reasonable, but since most of the time patients do not get stronger in the hospital, a do continue to harbor concerns that he will still need rehab or even as he works with therapy more and is further removed from his ICU time. (11) Discharge planning issues: See above. He would be most appropriate for rehab, insisting on going home which does not appear to be safe at this time. Continue to take things day today and continue discussions with him in addition to therapy and medical treatment Subjective Patient seen and examined at the bedside. No acute events overnight. Afebrile. Patient denies fever chills chest pain shortness of breath abdominal pain frequency urgency. Feeling a bit better. Has had some diarrhea. Appetite is slowly improving. Will start try to pursue PT, OT, and nursing, but he is adamant that he does not want to go to rehab. Review of Systems Review of Systems: All systems reviewed & are unremarkable except as noted in HPI & below Physical Exam Constitutional: WD/WN, vitals as above well developed Eyes: PERRL, conjunctivae normal, anicteric sclerae ENMT: external ear and nose normal, oropharynx normal Neck: trachea midline, no thyromegaly Respiratory: normal respiratory effort, lungs clear to auscultation Cardiovascular: RRR, no murmur, no edema Gastrointestinal (Abdomen): normal bowel sounds, soft, nontender, no hepatosplenomegaly Musculoskeletal: no cyanosis or clubbing, extremities motor strength 5/5 Skin: no rashes, warm and dry Neurologic: patellar DTR's 2+ bilat, sensation intact Psychiatric: A+Ox3, euthymic affect Lymphatic: no cervical or axillary lymphadenopathy Results & Data Vital Signs (Past 12 Hours) Vital Signs Temp Pulse Pulse Resp BP Pulse Ox 01/15/19 15:24 36.9 C 85 16 118/71 100 01/15/19 07:25 36.5 C 69 20 123/78 100 PG Care Time/CCT Total # of Minutes Spent Total Time Spent with Patient: Total time spent is greater than 50% in coordination of care (as documented) at patient's floor/unit and/or counseling patient: (1) Cellulitis Laterality: unspecified laterality Site of cellulitis: extremity Site of cellulitis of extremity: lower extremity Qualified Code(s): L03.119 - Nayeli lulitis of unspecified part of limb (2) Alcohol withdrawal Complication of substance-induced condition: with perceptual disturbance Qualified Code(s): 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
[2019-01-15] MEDS: ATORVASTATIN 40 MG TAB PO SCH (20:42)
[2019-01-16] MEDS: HEPARIN SOD 5,000 UNIT/0.5 ML VIAL SQ SCH ×3 (05:39→20:35)
[2019-01-16] MEDS: ACETAMINOPHEN 325 MG TAB PO PRN (07:26)
[2019-01-16] MEDS: PANTOprazole 40 MG TAB PO SCH (10:39)
[2019-01-16] MEDS: VENLAFAXINE HCL XR 150 MG CAPXR PO SCH (10:39)
[2019-01-16] MEDS: PREGABALIN 100 MG CAP PO SCH ×2 (10:39→20:33)
[2019-01-16] MEDS: GABAPENTIN 300 MG CAP PO SCH ×3 (10:39→20:30)
[2019-01-16] MEDS: levoFLOXacin 750 MG TAB PO SCH (10:40)
[2019-01-16] MEDS: OXcarbazepine 150 MG TABLET PO SCH ×2 (10:40→20:30)
[2019-01-16] MEDS: FOLIC ACID 400 MCG TAB PO SCH (10:40)
[2019-01-16] MEDS: VITAMIN B COMPLEX TAB PO SCH (10:41)
[2019-01-16] MEDS: FLUTICASONE/SALMETEROL (ADVAIR) 500/50 INH 14 PUFF INH SCH ×2 (10:41→20:29)
[2019-01-16] MEDS: THIAMINE HCL 100 MG TAB PO SCH (10:41)
[2019-01-16] MEDS: POLYETHYLENE (MIRALAX) 17 GM PACK PO SCH ×2 (10:44→20:31)
--- NOTE | 2019-01-16 10:59 | Hospitalist Progress Note ---
Date of Service January 16, 2019 Assessment & Plan (1) Sepsis associated hypotension: Improved (2) Acute UTI: Klebsiella in his urine and his blood. ICU had concerns that the stercoral colitis created significant lower pelvic pressure and congestion allowing the infection to occur, certainly given that the patient recently had a UTI as well, other concerns that prostatitis is at play seems quite valid. Fortunately the bacteria sensitive to Levaquingiven the need to clear his bloodstream as well as get good prostate penetration as well as having a bacteria sensitive to it, while Levaquin does carry more risk than other antibiotics, given the unique nature of his infection and what we need to clear it, as well as needing to treat for approximately 6 weeks (and all the iatrogenic risks that would come with needing an IV for 6 weeks) risk-benefit overall seems to favor treating with Levaquin. Anticipate treating for approximately 6 weeks to clear not only the bacteremia but the presumed prostatitis. 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 Seems to run chronically constipated, suspect his heavy alcohol intake contributes. He is improved with an enema. Now he is having some diarrhea and fecal incontinence. We will back down on the MiraLAX to daily, but I also wonder if the incontinence is somewhat due to his colon being slow to contract back down after having been distended for what would presumably be quite a while. (4) Acute hyponatremia: Likely related to beer intake. Overall stable. Yesterday he noted that he is done drinking. Continue to follow BMP periodically. (5) Acute hypotension: Resolvedwas due to sepsis (6) Metabolic encephalopathy: Improved. Now he appears to be stubborn and lacking insight into his weakness, but he seems otherwise coherent, so I suspect most of his encephalopathy has resolved. (7) Cellulitis: Questionable whether it was present at all, but definitely seems to have resolved. (8) COPD (chronic obstructive pulmonary disease): Breathing continues to be stablewith his exam and how sick he was/immobilityI suspect his hypoxia and need for 2 L is atelectasis, as well as the need for pulmonary toilet. Incentive spirometry ordered, activity encouraged. Continue Advair PRN albuterol nebs. (9) Alcohol withdrawal: Appears stable in this regard, and he has now decided that he is not drinking. (10) Generalized weakness: Multifactorial PT/OT eval and treat ongoing. He appears to need some form of rehab, but is refusing to even really consider it. In discussion with case management his family sounds hesitant to be taking care of him at home in his current state, and I understand this. With the fact that he seems so stubborn about wanting to go home and the fact that he lacks insight into his weakness, I harbor concerns about him actually taking measures for safety, making him appear more likely to have a bad outcome from his weakness then someone who seems to have insight and look towards safety first -We will see how he is doing with PT tomorrow, I discussed with him if he is showing rapid improvement then home in another day or 2 could be reasonable, but since most of the time patients do not get stronger in the hospital, a do continue to harbor concerns that he will still need rehab or even as he works with therapy more and is further removed from his ICU time. (11) Discharge planning issues: See above. He would be most appropriate for rehab, insisting on going home which does not appear to be safe at this time. Continue to take things day today and continue discussions with him in addition to therapy and medical treatment Subjective Patient seen and examined at the bedside. No acute events overnight. Afebrile. Patient was complaining of migraine headache today. Given Fiorinal instead of Excedrin ( which pt takes usually at home when he has MORGAN).Patient denies fever chills chest pain shortness of breath abdominal pain frequency urgency. Diarrhea resolved. Appetite is slowly improving. Will start try to pursue PT, OT, and nursing, but he is adamant that he does not want to go to rehab. Review of Systems Review of Systems: All systems reviewed & are unremarkable except as noted in HPI & below Physical Exam Constitutional: WD/WN, vitals as above well developed Eyes: PERRL, conjunctivae normal, anicteric sclerae ENMT: external ear and nose normal, oropharynx normal Neck: trachea midline, no thyromegaly Respiratory: normal respiratory effort, lungs clear to auscultation Cardiovascular: RRR, no murmur, no edema Gastrointestinal (Abdomen): normal bowel sounds, soft, nontender, no hepatosplenomegaly Musculoskeletal: no cyanosis or clubbing, extremities motor strength 5/5 Skin: no rashes, warm and dry Neurologic: patellar DTR's 2+ bilat, sensation intact Psychiatric: A+Ox3, euthymic affect Lymphatic: no cervical or axillary lymphadenopathy Results & Data Vital Signs (Past 12 Hours) Vital Signs Temp Pulse Pulse Resp BP Pulse Ox 01/16/19 07:28 36.3 C L 103 H 20 141/78 H 95 01/15/19 22:59 36.8 C 91 H 18 130/79 96 PG Care Time/CCT Total # of Minutes Spent Total Time Spent with Patient: Total time spent is greater than 50% in coordination of care (as documented) at patient's floor/unit and/or counseling patient: (1) Alcohol withdrawal Complication of substance-induced condition: with perceptual disturbance Qualified Code(s): 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
[2019-01-16] MEDS ORDERED: BUTALBITAL/ASPIRIN/CAFFEINE 1 TAB TAB PO PRN (11:07)
[2019-01-16] MEDS: NORMOSOL-R 1,000 ML IV SCH (12:41)
[2019-01-16] MEDS: BUTALBITAL/ASPIRIN/CAFFEINE 1 TAB TAB PO PRN (12:41)
[2019-01-16] MEDS: ATORVASTATIN 40 MG TAB PO SCH (20:30)
[2019-01-16] MEDS: ALBUTEROL 0.083% NEBU SOLN 3 ML VIAL NEB PRN (21:53)
[2019-01-17] MEDS: HEPARIN SOD 5,000 UNIT/0.5 ML VIAL SQ SCH ×3 (05:50→21:56)
[2019-01-17] MEDS: THIAMINE HCL 100 MG TAB PO SCH (09:10)
[2019-01-17] MEDS: FOLIC ACID 400 MCG TAB PO SCH (09:10)
[2019-01-17] MEDS: VITAMIN B COMPLEX TAB PO SCH (09:10)
[2019-01-17] MEDS: OXcarbazepine 150 MG TABLET PO SCH ×2 (09:10→21:54)
[2019-01-17] MEDS: FLUTICASONE/SALMETEROL (ADVAIR) 500/50 INH 14 PUFF INH SCH ×2 (09:10→21:53)
[2019-01-17] MEDS: PANTOprazole 40 MG TAB PO SCH (09:10)
[2019-01-17] MEDS: POLYETHYLENE (MIRALAX) 17 GM PACK PO SCH ×2 (09:10→21:54)
[2019-01-17] MEDS: VENLAFAXINE HCL XR 150 MG CAPXR PO SCH (09:10)
[2019-01-17] MEDS: GABAPENTIN 300 MG CAP PO SCH ×3 (09:10→21:54)
[2019-01-17] MEDS: PREGABALIN 100 MG CAP PO SCH ×2 (09:11→21:54)
[2019-01-17] MEDS: levoFLOXacin 750 MG TAB PO SCH (11:57)
[2019-01-17] MEDS: BUTALBITAL/ASPIRIN/CAFFEINE 1 TAB TAB PO PRN (12:24)
--- NOTE | 2019-01-17 15:41 | Hospitalist Progress Note ---
Date of Service January 17, 2019 Assessment & Plan (1) Sepsis associated hypotension: Improved (2) Acute UTI: Klebsiella in his urine and his blood. ICU had concerns that the stercoral colitis created significant lower pelvic pressure and congestion allowing the infection to occur, certainly given that the patient recently had a UTI as well, other concerns that prostatitis is at play seems quite valid. Fortunately the bacteria sensitive to Levaquingiven the need to clear his bloodstream as well as get good prostate penetration as well as having a bacteria sensitive to it, while Levaquin does carry more risk than other antibiotics, given the unique nature of his infection and what we need to clear it, as well as needing to treat for approximately 6 weeks (and all the iatrogenic risks that would come with needing an IV for 6 weeks) risk-benefit overall seems to favor treating with Levaquin. Anticipate treating for approximately 6 weeks to clear not only the bacteremia but the presumed prostatitis. 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 Seems to run chronically constipated, suspect his heavy alcohol intake contributes. He is improved with an enema. Now he is having some diarrhea and fecal incontinence. We will back down on the MiraLAX to daily, but I also wonder if the incontinence is somewhat due to his colon being slow to contract back down after having been distended for what would presumably be quite a while. (4) Acute hyponatremia: Likely related to beer intake. Overall stable. Yesterday he noted that he is done drinking. Continue to follow BMP periodically. (5) Acute hypotension: Resolvedwas due to sepsis (6) Metabolic encephalopathy: Improved. Now he appears to be stubborn and lacking insight into his weakness, but he seems otherwise coherent, so I suspect most of his encephalopathy has resolved. (7) Cellulitis: Questionable whether it was present at all, but definitely seems to have resolved. (8) COPD (chronic obstructive pulmonary disease): Breathing continues to be stablewith his exam and how sick he was/immobilityI suspect his hypoxia and need for 2 L is atelectasis, as well as the need for pulmonary toilet. Incentive spirometry ordered, activity encouraged. Continue Advair PRN albuterol nebs. (9) Alcohol withdrawal: Appears stable in this regard, and he has now decided that he is not drinking. (10) Generalized weakness: Multifactorial PT/OT eval and treat ongoing. He appears to need some form of rehab, but is refusing to even really consider it. In discussion with case management his family sounds hesitant to be taking care of him at home in his current state, and I understand this. With the fact that he seems so stubborn about wanting to go home and the fact that he lacks insight into his weakness, I harbor concerns about him actually taking measures for safety, making him appear more likely to have a bad outcome from his weakness then someone who seems to have insight and look towards safety first -We will see how he is doing with PT tomorrow, I discussed with him if he is showing rapid improvement then home in another day or 2 could be reasonable, but since most of the time patients do not get stronger in the hospital, a do continue to harbor concerns that he will still need rehab or even as he works with therapy more and is further removed from his ICU time. (11) Discharge planning issues: See above. He would be most appropriate for rehab, insisting on going home which does not appear to be safe at this time. Continue to take things day today and continue discussions with him in addition to therapy and medical treatment Subjective Patient seen and examined at the bedside. No acute events overnight. Afebrile. Patient denies fever chills chest pain shortness of breath abdominal pain frequency urgency. Diarrhea resolved. Appetite is slowly improving. Will start try to pursue PT, OT, and nursing, but he is adamant that he does not want to go to rehab. Review of Systems Review of Systems: All systems reviewed & are unremarkable except as noted in HPI & below Physical Exam Constitutional: WD/WN, vitals as above well developed Eyes: PERRL, conjunctivae normal, anicteric sclerae ENMT: external ear and nose normal, oropharynx normal Neck: trachea midline, no thyromegaly Respiratory: normal respiratory effort, lungs clear to auscultation Cardiovascular: RRR, no murmur, no edema Gastrointestinal (Abdomen): normal bowel sounds, soft, nontender, no hepat osplenomegaly Musculoskeletal: no cyanosis or clubbing, extremities motor strength 5/5 Skin: no rashes, warm and dry Neurologic: patellar DTR's 2+ bilat, sensation intact Psychiatric: A+Ox3, euthymic affect Lymphatic: no cervical or axillary lymphadenopathy Results & Data Vital Signs (Past 12 Hours) Vital Signs Temp Pulse Pulse Resp BP Pulse Ox 01/17/19 15:16 37.1 C 101 H 16 145/87 H 99 01/17/19 07:06 36.6 C 82 18 148/82 H 100 01/17/19 07:01 36.6 C 68 18 124/76 96 PG Care Time/CCT Total # of Minutes Spent Total Time Spent with Patient: Total time spent is greater than 50% in coordination of care (as documented) at patient's floor/unit and/or counseling patient: (1) Cellulitis Laterality: unspecified laterality Site of cellulitis: extremity Site of cellulitis of extremity: lower extremity Qualified Code(s): L03.119 - Cellulitis of unspecified part of limb (2) Alcohol withdrawal Complication of substance-induced condition: with perceptual disturbance Qualified Code(s): 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
[2019-01-17] MEDS: ALBUTEROL 0.083% NEBU SOLN 3 ML VIAL NEB PRN (16:09)
[2019-01-17] MEDS: ATORVASTATIN 40 MG TAB PO SCH (21:54)
[2019-01-18] MEDS ORDERED: COUGH DROP (SUGAR FREE) LOZ 24 LOZ/1 BOX BUCCAL PRN (00:07)
[2019-01-18] MEDS: HEPARIN SOD 5,000 UNIT/0.5 ML VIAL SQ SCH ×3 (05:46→21:26)
[2019-01-18] MEDS: POLYETHYLENE (MIRALAX) 17 GM PACK PO SCH ×2 (09:22→20:59)
[2019-01-18] MEDS: PANTOprazole 40 MG TAB PO SCH (09:40)
[2019-01-18] MEDS: FLUTICASONE/SALMETEROL (ADVAIR) 500/50 INH 14 PUFF INH SCH ×2 (09:40→20:48)
[2019-01-18] MEDS: GABAPENTIN 300 MG CAP PO SCH ×3 (09:40→20:50)
[2019-01-18] MEDS: VENLAFAXINE HCL XR 150 MG CAPXR PO SCH (09:40)
[2019-01-18] MEDS: OXcarbazepine 150 MG TABLET PO SCH ×2 (09:41→20:51)
[2019-01-18] MEDS: THIAMINE HCL 100 MG TAB PO SCH (09:41)
[2019-01-18] MEDS: FOLIC ACID 400 MCG TAB PO SCH (09:41)
[2019-01-18] MEDS: VITAMIN B COMPLEX TAB PO SCH (09:41)
[2019-01-18] MEDS: PREGABALIN 100 MG CAP PO SCH ×2 (09:42→20:58)
[2019-01-18] MEDS: levoFLOXacin 750 MG TAB PO SCH (11:51)
--- NOTE | 2019-01-18 12:24 | Hospitalist Progress Note ---
Date of Service January 18, 2019 Assessment & Plan (1) Sepsis associated hypotension: Improved (2) Acute UTI: Klebsiella in his urine and his blood. Discussed duration of Levaquin with Dr. Stella Abbott infectious diseases [employer] consultant and she recommended to continue Levaquin 750 mg daily p.o. for 2 more weeks to complete treatment of 3 weeks for bacteremia, urinary tract infection and presumed prostatitis. Patient is eager to go home. Wants to be discharged. Good p.o. intake. Patient is on 2 L of supplemental oxygen and he states that this is how much he uses at home. Patient has a walker. Patient refused to go to [facility] but accepted home health. 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 Seems to run chronically constipated, suspect his heavy alcohol intake contributes. He is improved with an enema. Diarrhea resolved. (4) Acute hyponatremia: Likely related to beer intake. Overall stable. Yesterday he noted that he is done drinking. Continue to follow BMP periodically. (5) Acute hypotension: Resolvedwas due to sepsis (6) Metabolic encephalopathy: Improved. Now he appears to be stubborn and lacking insight into his weakness, but he seems otherwise coherent, so I suspect most of his encephalopathy has resolved. (7) Cellulitis: Questionable whether it was present at all, but definitely seems to have resolved. Continue Levaquin for 2 more weeks. (8) COPD (chronic obstructive pulmonary disease): Breathing continues to be stablewith his exam and how sick he was/immobilityI suspect his hypoxia and need for 2 L is atelectasis, as well as the need for pulmonary toilet. Incentive spirometry ordered, activity encouraged. Continue Advair PRN albuterol nebs. (9) Alcohol withdrawal: Appears stable in this regard, and he has now decided that he is not drinking. (10) Generalized weakness: Multifactorial PT/OT eval and treat ongoing. Patient refused rehab but okay with home health physical therapy. Requesting to be discharged home today. (11) Discharge planning issues: See above. He would be most appropriate for rehab, insisting on going home which does not appear to be safe at this time. Subjective Patient seen and examined at the bedside. No acute events overnight. Afebrile. Patient denies fever chills chest pain shortness of breath abdominal pain frequency urgency. Diarrhea resolved. Appetite is slowly improving. Patient is most appropriate for [facility] in consideration of his PT OT abilities. Patient refused. He accepted to have home health physical therapy coming to his home. Review of Systems Review of Systems: All systems reviewed & are unremarkable except as noted in HPI & below Physical Exam Constitutional: WD/WN, vitals as above well developed Eyes: PERRL, conjunctivae normal, anicteric sclerae ENMT: external ear and nose normal, oropharynx normal Neck: trachea midline, no thyromegaly Respiratory: normal respiratory effort, lungs clear to auscultation Cardiovascular: RRR, no murmur, no edema Gastrointestinal (Abdomen): normal bowel sounds, soft, nontender, no hepatos plenomegaly Musculoskeletal: no cyanosis or clubbing, extremities motor strength 5/5 Skin: no rashes, warm and dry Neurologic: patellar DTR's 2+ bilat, sensation intact Psychiatric: A+Ox3, euthymic affect Lymphatic: no cervical or axillary lymphadenopathy Results & Data Vital Signs (Past 12 Hours) Vital Signs Temp Pulse Resp BP Pulse Ox 01/18/19 07:48 36.8 C 77 20 134/86 97 PG Care Time/CCT Total # of Minutes Spent Total Time Spent with Patient: Total time spent is greater than 50% in coordination of care (as documented) at patient's floor/unit and/or counseling patient: (1) Cellulitis Laterality: unspecified laterality Site of cellulitis: extremity Site of cellulitis of extremity: lower extremity Qualified Code(s): L03.119 - Cellulitis of unspecified part of limb (2) Alcohol withdrawal Complication of substance-induced condition: with perceptual disturbance Qualified Code(s): 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
--- NOTE | 2019-01-18 12:34 | Discharge Summary ---
Date of Service January 18, 2019 Discharge Exam Constitutional WD/WN, vitals as above well developed Eyes PERRL, conjunctivae normal, anicteric sclerae ENMT external ear and nose normal, oropharynx normal Neck trachea midline, no thyromegaly Respiratory normal respiratory effort, lungs clear to auscultation Cardiovascular RRR, no murmur, no edema Gastrointestinal (Abdomen) normal bowel sounds, soft, nontender, no hepatosplenomegaly Musculoskeletal no cyanosis or clubbing, extremities motor strength 5/5 Skin no rashes, warm and dry Neurologic patellar DTR's 2+ bilat, sensation intact Psychiatric Insight: + limited insight Lymphatic no cervical or axillary lymphadenopathy Discharge Data Allergies Allergy/AdvReac Type Severity Reaction Status Date / Time No Known Allergies Allergy Verified 01/10/19 00:10 Consultations 01/10/19 00:44 ED Decision to Admit Stat 01/10/19 11:16 Consult Choir Member Routine 01/13/19 07:46 Consult Case Management - Discharge Planning Routine Ordered Studies 01/09/19 20:49 US venous doppler LE BI Urgent 01/09/19 21:11 CT abd pelvis IV con only Urgent CT head/brain wo con Urgent Hospital Course (1) Sepsis associated hypotension: Improved (2) Acute UTI: Klebsiella in his urine and his blood. Discussed duration of Levaquin with Dr. Stella Abbott infectious diseases [employer] financial[employer] consultant and she recommended to continue Levaquin 750 mg daily p.o. for 2 more weeks to complete treatment of 3 weeks for bacteremia, urinary tract infection and presumed prostatitis. Patient is eager to go home. Wants to be discharged. Good p.o. intake. Patient is on 2 L of supplemental oxygen and he states that this is how much he uses at home. Patient has a walker. Patient refused to go to [facility] but accepted home health. 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 Seems to run chronically constipated, suspect his heavy alcohol intake contributes. He is improved with an enema. Diarrhea resolved. (4) Acute hyponatremia: Likely related to beer intake. Overall stable. Yesterday he noted that he is done drinking. Continue to follow BMP periodically. (5) Acute hypotension: Resolvedwas due to sepsis (6) Metabolic encephalopathy: Improved. Now he appears to be stubborn and lacking insight into his weakness, but he seems otherwise coherent, so I suspect most of his encephalopathy has resolved. (7) Cellulitis: Questionable whether it was present at all, but definitely seems to have resolved. Continue Levaquin for 2 more weeks. (8) COPD (chronic obstructive pulmonary disease): Breathing continues to be stablewith his exam and how sick he was/immobil ityI suspect his hypoxia and need for 2 L is atelectasis, as well as the need for pulmonary toilet. Incentive spirometry ordered, activity encouraged. Continue Advair PRN albuterol nebs. (9) Alcohol withdrawal: Appears stable in this regard, and he has now decided that he is not drinking. (10) Generalized weakness: Multifactorial PT/OT eval and treat ongoing. Patient refused rehab but okay with home health physical therapy. Requesting to be discharged home today. (11) Discharge planning issues: See above. He would be most appropriate for rehab, insisting on going home which does not appear to be safe at this time. Discharge Plan Discharge Items Reason For Visit: hyponatremia Follow-up/Referrals: Russell Dang, [Primary Care Provider] - 01/17/19 9:20 am (Please, follow up with Dr. Russell Dang on SundayJanuary 17 at 9:20 am. *If you need to change this appointment, call the office at [phone].) Medications and DC Order Prescriptions: No Action metoprolol succinate [Toprol XL] 25 mg tablet extended release 24 hr 25 mg PO DAILY RF: 0 albuterol sulfate 90 mcg/actuation HFA aerosol inhaler 1 - 2 puff INHALATION Q4H PRN (Reason: Shortness Of Breath) Qty: 18 RF: 1 atorvastatin 40 mg tablet 40 mg PO HS RF: 0 folic acid 400 mcg tablet 0.4 mg PO DAILY RF: 0 lisinopril 10 mg tablet 10 mg PO DAILY RF: 0 oxcarbazepine 300 mg tablet 300 mg PO BID RF: 0 vitamin B complex-folic acid 2,000 mcg capsule 1 cap PO DAILY RF: 0 venlafaxine 150 mg capsule,extended release 24hr 150 mg PO DAILY RF: 0 pregabalin 100 mg capsule 100 mg PO BID Qty: 60 RF: 0 metoprolol succinate 50 mg tablet extended release 24 hr 50 mg PO DAILY Qty: 30 RF: 0 gabapentin 100 mg capsule 300 mg PO TID Qty: 180 RF: 0 fluticasone propion-salmeterol [Advair Diskus] 500-50 mcg/dose blister with device 1 inh inhalation DIRECTED RF: 0 Admission Data Admit Date/Time: 01/10/19 01:20 Attending Provider: Roxana Ruby Admit Provider: Lauro Wang Primary Care Provider: Russell Dang Other Providers: Rey Paz ; Lauro Wang ; Huber Andrews ; [facility]
[2019-01-18 13:00] LABS: Basophils # (auto) 0.03 K/uL (0-0.2); Basophils % (auto) 0.5 %; Eosinophils # (auto) 0.23 K/uL (0-0.5); Eosinophils % (auto) 3.8 %; Hemoglobin 9.6 g/dL (14.0-18.0); Immature Granulocytes # (auto) 0.03 K/uL (0.00-0.02); Immature Granulocytes % (auto) 0.5 %; Lymphocytes # (auto) 1.36 K/uL (1.2-3.4); Lymphocytes % (auto) 22.7 %; Mean Corpuscular Hemoglobin 32.5 pg (25-34); Mean Corpuscular Volume 94.9 fL (80-100); Mean Platelet Volume 8.5 fL (7.4-10.4); Monocytes # (auto) 0.68 K/uL (0.11-0.59); Monocytes % (auto) 11.4 %; Neutrophils # (auto) 3.66 K/uL (1.4-6.5); Neutrophils % (auto) 61.1 %; Platelet Count 193 K/uL (130-400); RDW Coefficient of Variation 14.1 % (11.5-14.5); RDW Standard Deviation 49.2 fL (36.4-46.3); Red Blood Count 2.95 M/uL (4.7-6.1); White Blood Count 5.99 K/uL (4.8-10.8)
[2019-01-18 13:03] LABS: Albumin Level 2.7 gm/dl (3.4-5.0); BUN Creatinine Ratio 8.8 (10-20); Calcium 8.5 mg/dl (8.5-10.1); Est GFR (African American) 105.2; Est GFR (Non-African American) 90.8
[2019-01-18 13:06] LABS: Albumin Globulin Ratio 0.8 (0.9-2); Bilirubin,Total 0.3 mg/dl (0.2-1); Globulin 3.4 gm/dl (2.5-4.0); Total Protein 6.1 gm/dl (6.4-8.2)
[2019-01-18 13:10] LABS: Mean Corpuscular Hgb Conc 34.3 g/dL (32-36)
[2019-01-18] MEDS ORDERED: SODIUM CHLORIDE 0.9% 1000ML 500 ML IV SCH (15:15)
[2019-01-18] MEDS: BUTALBITAL/ASPIRIN/CAFFEINE 1 TAB TAB PO PRN (16:12)
[2019-01-18] MEDS ORDERED: ACETAMINOPHEN SOL 650 MG/20.3 ML UDC PO PRN (20:16)
[2019-01-18] MEDS ORDERED: ACETAMINOPHEN 325 MG TAB PO STA (20:21)
[2019-01-18] MEDS: ATORVASTATIN 40 MG TAB PO SCH (20:49)
[2019-01-19] MEDS: HEPARIN SOD 5,000 UNIT/0.5 ML VIAL SQ SCH ×3 (05:36→21:19)
[2019-01-19 05:55] LABS: Basophils # (auto) 0.02 K/uL (0-0.2); Basophils % (auto) 0.3 %; Eosinophils # (auto) 0.19 K/uL (0-0.5); Eosinophils % (auto) 3.3 %; Hematocrit (blood only) 27.5 % (42-52); Hemoglobin 9.1 g/dL (14.0-18.0); Immature Granulocytes # (auto) 0.02 K/uL (0.00-0.02); Immature Granulocytes % (auto) 0.3 %; Lymphocytes % (auto) 20.9 %; Mean Corpuscular Hemoglobin 31.7 pg (25-34); Mean Corpuscular Hgb Conc 33.1 g/dL (32-36); Mean Corpuscular Volume 95.8 fL (80-100); Mean Platelet Volume 8.3 fL (7.4-10.4); Monocytes # (auto) 0.62 K/uL (0.11-0.59); Monocytes % (auto) 10.8 %; Neutrophils # (auto) 3.69 K/uL (1.4-6.5); Neutrophils % (auto) 64.4 %; Platelet Count 172 K/uL (130-400); RDW Coefficient of Variation 14.1 % (11.5-14.5); RDW Standard Deviation 49.4 fL (36.4-46.3); Red Blood Count 2.87 M/uL (4.7-6.1); White Blood Count 5.74 K/uL (4.8-10.8)
[2019-01-19 06:40] LABS: Albumin Level 2.6 gm/dl (3.4-5.0); BUN Creatinine Ratio 10.2 (10-20); Calcium 8.1 mg/dl (8.5-10.1); Creatinine Clr Calc Pharmacy 105.9 ml/min; Est GFR (Non-African American) 96.7; Potassium 3.7 mmol/L (3.5-5.1)
[2019-01-19 06:43] LABS: Albumin Globulin Ratio 0.8 (0.9-2); Bilirubin,Total 0.3 mg/dl (0.2-1); Globulin 3.2 gm/dl (2.5-4.0); Total Protein 5.8 gm/dl (6.4-8.2)
[2019-01-19] MEDS: PREGABALIN 100 MG CAP PO SCH ×2 (09:23→20:08)
[2019-01-19] MEDS: GABAPENTIN 300 MG CAP PO SCH ×3 (09:24→20:08)
[2019-01-19] MEDS: FLUTICASONE/SALMETEROL (ADVAIR) 500/50 INH 14 PUFF INH SCH ×2 (09:24→20:08)
[2019-01-19] MEDS: FOLIC ACID 400 MCG TAB PO SCH (09:24)
[2019-01-19] MEDS: VENLAFAXINE HCL XR 150 MG CAPXR PO SCH (09:24)
[2019-01-19] MEDS: VITAMIN B COMPLEX TAB PO SCH (09:24)
[2019-01-19] MEDS: THIAMINE HCL 100 MG TAB PO SCH (09:24)
[2019-01-19] MEDS: PANTOprazole 40 MG TAB PO SCH (09:24)
[2019-01-19] MEDS: OXcarbazepine 150 MG TABLET PO SCH ×2 (09:25→20:08)
[2019-01-19] MEDS: POLYETHYLENE (MIRALAX) 17 GM PACK PO SCH ×2 (09:25→14:10)
[2019-01-19] MEDS: levoFLOXacin 750 MG TAB PO SCH (10:23)
[2019-01-19] MEDS: ALBUTEROL 0.083% NEBU SOLN 3 ML VIAL NEB PRN (11:49)
--- NOTE | 2019-01-19 15:55 | Hospitalist Progress Note ---
Date of Service January 19, 2019 Assessment & Plan (1) Sepsis associated hypotension: Improved (2) Acute UTI: Klebsiella in his urine and his blood. Discussed duration of Levaquin with Dr. Stella Abbott infectious diseases clinical services consultant and she recommended to continue Levaquin 750 mg daily p.o. for 2 more weeks to complete treatment of 3 weeks for bacteremia, urinary tract infection and presumed prostatitis. Patient is eager to go home. Wants to be discharged. Good p.o. intake. Patient is on 2 L of supplemental oxygen and he states that this is how much he uses at home. Patient has a walker. [facility] refused to go to [facility] but accepted home health. 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 Seems to run chronically constipated, suspect his heavy alcohol intake contributes. He is improved with an enema. Diarrhea resolved. (4) Acute hyponatremia: Likely related to beer intake-beer Potomania. Fluid p.o. restriction of 1200 cc. Overall stable. Monitoring BMP. IF hyponatremia improves tomorrow plan to discharge home. (5) Acute hypotension: Resolvedwas due to sepsis (6) Metabolic encephalopathy: Improved. Now he appears to be stubborn and lacking insight into his weakness, but he seems otherwise coherent, so I suspect most of his encephalopathy has resolved. (7) Cellulitis: Questionable whether it was present at all, but definitely seems to have resolved. Continue Levaquin for 2 more weeks. (8) COPD (chronic obstructive pulmonary disease): Breathing continues to be stablewith his exam and how sick he was/immobilityI suspect his hypoxia and need for 2 L is atelectasis, as well as the need for pulmonary toilet. Incentive spirometry ordered, activity encouraged. Continue Advair PRN albuterol nebs. (9) Alcohol withdrawal: Appears stable in this regard, and he has now decided that he is not drinking. (10) Generalized weakness: Multifactorial PT/OT eval and treat ongoing. Patient refused rehab but okay with home health physical therapy. Requesting to be discharged home today. (11) Discharge planning issues: See above. He would be most appropriate for rehab, insisting on going home which does not appear to be safe at this time. Subjective Patient seen and examined at the bedside. No acute events overnight. Patient still has hyponatremia 127 despite of giving normal saline 80 cc/h for 500 mils did not improve. Patient is also on p.o. fluid restriction of 1200 cc daily. Monitor hyponatremia closely. Afebrile. Patient denies fever chills chest pain shortness of breath abdominal pain frequency urgency. Diarrhea resolved. Appetite is slowly improving. Patient is most appropriate for [facility] in consideration of his PT OT abilities. Patient refused. He accepted to have home health physical therapy coming to his home. Review of Systems Review of Systems: All systems reviewed & are unremarkable except as noted in HPI & below Physical Exam Constitutional: WD/WN, vitals as above well developed Eyes: PERRL, conjunctivae normal, anicteric sclerae ENMT: external ear and nose normal, oropharynx normal Neck: trachea midline, no thyromegaly Respiratory: Auscultation: + bronchovesicular breath sounds Cardiovascular: Heart Sounds: normal S1, normal S2 and + murmur Palpation: + palpable S3 Vessels: dorsalis pedis pulses present Extremities: + pedal edema (1+ pitting) Gastrointestinal (Abdomen): normal bowel sounds, soft, nontender, no hepatosplenomegaly Musculoskeletal: no cyanosis or clubbing, extremities motor strength 5/5 Skin: Chronic erythema of the lower extremities bilaterally. No open wounds. No laceration. Neurologic: patellar DTR's 2+ bilat, sensation intact Psychiatric: Insight: + limited insight (Due to alcohol induced encephalopathy) Judgement: + limited judgement Lymphatic: no cervical or axillary lymphadenopathy Results & Data Vital Signs (Past 12 Hours) Vital Signs Temp Pulse Pulse Resp BP Pulse Ox 01/19/19 15:37 37.1 C 115 H 20 124/82 94 01/19/19 11:49 71 18 98 01/19/19 07:59 36.8 C 83 18 118/71 99 PG Care Time/CCT Total # of Minutes Spent Total Time Spent with Patient: Total time spent is greater than 50% in coordination of care (as documented) at patient's floor/unit and/or counseling patient: (1) Cellulitis Laterality: unspecified laterality Site of cellulitis: extremity Site of cellulitis of extremity: lower extremity Qualified Code(s): L03.119 - Cellulitis of unspecified part of limb (2) Alcohol withdrawal Complication of substance-induced condition: with perceptual disturbance Qualified Code(s): 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
[2019-01-19] MEDS: ATORVASTATIN 40 MG TAB PO SCH (20:08)
[2019-01-20] MEDS: HEPARIN SOD 5,000 UNIT/0.5 ML VIAL SQ SCH ×3 (05:06→21:33)
[2019-01-20] MEDS: ALBUTEROL 0.083% NEBU SOLN 3 ML VIAL NEB PRN (05:14)
[2019-01-20 06:37] LABS: Basophils # (auto) 0.02 K/uL (0-0.2); Basophils % (auto) 0.3 %; Eosinophils # (auto) 0.18 K/uL (0-0.5); Eosinophils % (auto) 2.7 %; Hematocrit (blood only) 28.5 % (42-52); Hemoglobin 9.4 g/dL (14.0-18.0); Immature Granulocytes # (auto) 0.02 K/uL (0.00-0.02); Immature Granulocytes % (auto) 0.3 %; Lymphocytes % (auto) 18.1 %; Mean Corpuscular Hemoglobin 31.5 pg (25-34); Mean Corpuscular Volume 95.6 fL (80-100); Mean Platelet Volume 8.5 fL (7.4-10.4); Monocytes # (auto) 0.61 K/uL (0.11-0.59); Monocytes % (auto) 9.2 %; Neutrophils # (auto) 4.61 K/uL (1.4-6.5); Neutrophils % (auto) 69.4 %; Platelet Count 203 K/uL (130-400); RDW Coefficient of Variation 14.4 % (11.5-14.5); RDW Standard Deviation 50.3 fL (36.4-46.3); Red Blood Count 2.98 M/uL (4.7-6.1); White Blood Count 6.64 K/uL (4.8-10.8)
[2019-01-20 07:12] LABS: Albumin Level 2.8 gm/dl (3.4-5.0); BUN Creatinine Ratio 11.8 (10-20); Calcium 8.6 mg/dl (8.5-10.1); Creatinine Clr Calc Pharmacy 87.9 ml/min; Est GFR (African American) 103.7; Est GFR (Non-African American) 89.5; Potassium 4.1 mmol/L (3.5-5.1)
[2019-01-20 07:15] LABS: Albumin Globulin Ratio 0.9 (0.9-2); Bilirubin,Total 0.4 mg/dl (0.2-1); Globulin 3.2 gm/dl (2.5-4.0)
[2019-01-20] MEDS: POLYETHYLENE (MIRALAX) 17 GM PACK PO SCH ×3 (09:06→21:33)
[2019-01-20] MEDS: PANTOprazole 40 MG TAB PO SCH (09:07)
[2019-01-20] MEDS: VENLAFAXINE HCL XR 150 MG CAPXR PO SCH (09:07)
[2019-01-20] MEDS: OXcarbazepine 150 MG TABLET PO SCH ×2 (09:07→21:29)
[2019-01-20] MEDS: PREGABALIN 100 MG CAP PO SCH ×2 (09:07→21:26)
[2019-01-20] MEDS: VITAMIN B COMPLEX TAB PO SCH (09:07)
[2019-01-20] MEDS: FOLIC ACID 400 MCG TAB PO SCH (09:07)
[2019-01-20] MEDS: GABAPENTIN 300 MG CAP PO SCH ×3 (09:08→21:28)
[2019-01-20] MEDS: THIAMINE HCL 100 MG TAB PO SCH (09:08)
[2019-01-20] MEDS: FLUTICASONE/SALMETEROL (ADVAIR) 500/50 INH 14 PUFF INH SCH ×2 (09:31→21:27)
[2019-01-20] MEDS: levoFLOXacin 750 MG TAB PO SCH (11:07)
--- NOTE | 2019-01-20 11:42 | Hospitalist Progress Note ---
Date of Service January 20, 2019 Assessment & Plan (1) Sepsis associated hypotension: Improved (2) Acute UTI: Klebsiella in his urine and his blood. Discussed duration of Levaquin with Dr. Stella Abbott infectious diseases renewable [employer] consultant and she recommended to continue Levaquin 750 mg daily p.o. for 2 more weeks to complete treatment of 3 weeks for bacteremia, urinary tract infection and presumed prostatitis. Patient is eager to go home. Wants to be discharged. Good p.o. intake. Patient is on 2 L of supplemental oxygen and he states that this is how much he uses at home. Patient has a walker. Patient refused to go to alf but accepted home health. 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 Seems to run chronically constipated, suspect his heavy alcohol intake contributes. He is improved with an enema. Diarrhea resolved. (4) Acute hyponatremia: Likely related to beer intake-beer Potomania. Fluid p.o. restriction of 1200 cc. Overall stable. Monitoring BMP. IF hyponatremia improves tomorrow plan to discharge home. (5) Acute hypotension: Resolvedwas due to sepsis (6) Metabolic encephalopathy: Improved. Now he appears to be stubborn and lacking insight into his weakness, but he seems otherwise coherent, so I suspect most of his encephalopathy has resolved. (7) Cellulitis: Questionable whether it was present at all, but definitely seems to have resolved. Continue Levaquin for 2 more weeks. (8) COPD (chronic obstructive pulmonary disease): Breathing continues to be stablewith his exam and how sick he was/immobilityI suspect his hypoxia and need for 2 L is atelectasis, as well as the need for pulmonary toilet. Incentive spirometry ordered, activity encouraged. Continue Advair PRN albuterol nebs. (9) Alcohol withdrawal: Appears stable in this regard, and he has now decided that he is not drinking. (10) Generalized weakness: Multifactorial PT/OT eval and treat ongoing. Patient refused rehab but okay with home health physical therapy. Requesting to be discharged home today. (11) Chronic venous stasis: Improving with PO free water restriction, Antibiotics. Will start also Furosemide 20 mg IV BID to see if that will help in reducing volume in the lower ext.Will refer to lymphedema specialist. Present on Admission?: Yes (12) Discharge planning issues: See above. He would be most appropriate for rehab, insisting on going home which does not appear to be safe at this time. Subjective Patient seen and examined at the bedside. No acute events overnight. Hyponatremia slowly improving and today sodium is 131. Patient continues to be on p.o. fluid restriction of 1200 cc daily. Monitor hyponatremia closely. Afebrile. Patient denies fever chills chest pain shortness of breath abdominal pain frequency urgency. Diarrhea resolved. Appetite is slowly improving. Patient is most appropriate for alf in consideration of his PT OT abilities. Patient refused. He accepted to have home health physical therapy coming to his home. Review of Systems Review of Systems: All systems reviewed & are unremarkable except as noted in HPI & below Physical Exam Constitutional: WD/WN, vitals as above well developed Eyes: PERRL, conjunctivae normal, anicteric sclerae ENMT: external ear and nose normal, oropharynx normal Neck: trachea midline, no thyromegaly Respiratory: Auscultation: + bronchovesicular breath sounds Cardiovascular: Heart Sounds: normal S1, normal S2 and + murmur Palpation: + palpable S3 Vessels: dorsalis pedis pulses present Extremities: + pedal edema (1+ pitting) Gastrointestinal (Abdomen): normal bowel sounds, soft, nontender, no hepatosplenomegaly Musculoskeletal: no cyanosis or clubbing, extremities motor strength 5/5 Neurologic: patellar DTR's 2+ bilat, sensation intact Psychiatric: A+Ox3, euthymic affect Insight: + limited insight (Due to alcohol induced encephalopathy) Judgement: + limited judgement Lymphatic: no cervical or axillary lymphadenopathy Results & Data Vital Signs (Past 12 Hours) Vital Signs Temp Pulse Pulse Resp BP Pulse Ox 01/20/19 07:04 36.9 C 90 18 119/76 99 01/20/19 05:17 86 18 96 PG Care Time/CCT Total # of Minutes Spent Total Time Spent with Patient: Total time spent is greater than 50% in coordination of care (as documented) at patient's floor/unit and/or counseling patient: (1) Alcohol withdrawal Complication of substance-induced condition: with perceptual disturbance Qualified Code(s): 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
[2019-01-20] MEDS: ATORVASTATIN 40 MG TAB PO SCH (21:27)
[2019-01-20] MEDS: FUROSEMIDE 20 MG in SYRINGE 0 ML IV SCH (21:27)
[2019-01-21] MEDS: HEPARIN SOD 5,000 UNIT/0.5 ML VIAL SQ SCH (05:46)
[2019-01-21 06:17] LABS: Basophils # (auto) 0.03 K/uL (0-0.2); Basophils % (auto) 0.5 %; Eosinophils # (auto) 0.22 K/uL (0-0.5); Eosinophils % (auto) 3.8 %; Hematocrit (blood only) 26.1 % (42-52); Hemoglobin 8.8 g/dL (14.0-18.0); Immature Granulocytes # (auto) 0.01 K/uL (0.00-0.02); Immature Granulocytes % (auto) 0.2 %; Lymphocytes # (auto) 1.23 K/uL (1.2-3.4); Lymphocytes % (auto) 21.5 %; Mean Corpuscular Hemoglobin 32.1 pg (25-34); Mean Corpuscular Hgb Conc 33.7 g/dL (32-36); Mean Corpuscular Volume 95.3 fL (80-100); Mean Platelet Volume 8.3 fL (7.4-10.4); Monocytes # (auto) 0.55 K/uL (0.11-0.59); Monocytes % (auto) 9.6 %; Neutrophils # (auto) 3.69 K/uL (1.4-6.5); Neutrophils % (auto) 64.4 %; Platelet Count 198 K/uL (130-400); RDW Coefficient of Variation 14.4 % (11.5-14.5); RDW Standard Deviation 50.2 fL (36.4-46.3); Red Blood Count 2.74 M/uL (4.7-6.1); White Blood Count 5.73 K/uL (4.8-10.8)
[2019-01-21] MEDS: BUTALBITAL/ASPIRIN/CAFFEINE 1 TAB TAB PO PRN (06:33)
[2019-01-21 06:58] LABS: Albumin Level 2.7 gm/dl (3.4-5.0); BUN Creatinine Ratio 13.2 (10-20); Calcium 8.4 mg/dl (8.5-10.1); Creatinine Clr Calc Pharmacy 95.5 ml/min; Est GFR (African American) 107.3; Est GFR (Non-African American) 92.6; Potassium 3.8 mmol/L (3.5-5.1)
[2019-01-21 07:03] LABS: Albumin Globulin Ratio 0.9 (0.9-2); Bilirubin,Total 0.3 mg/dl (0.2-1); Total Protein 5.7 gm/dl (6.4-8.2)
[2019-01-21] MEDS: ACETAMINOPHEN 325 MG TAB PO PRN (08:09)
[2019-01-21] MEDS: FLUTICASONE/SALMETEROL (ADVAIR) 500/50 INH 14 PUFF INH SCH (09:46)
[2019-01-21] MEDS: POLYETHYLENE (MIRALAX) 17 GM PACK PO SCH (09:46)
[2019-01-21] MEDS: PREGABALIN 100 MG CAP PO SCH (09:47)
[2019-01-21] MEDS: PANTOprazole 40 MG TAB PO SCH (09:47)
[2019-01-21] MEDS: VITAMIN B COMPLEX TAB PO SCH (09:48)
[2019-01-21] MEDS: FOLIC ACID 400 MCG TAB PO SCH (09:48)
[2019-01-21] MEDS: VENLAFAXINE HCL XR 150 MG CAPXR PO SCH (09:48)
[2019-01-21] MEDS: GABAPENTIN 300 MG CAP PO SCH (09:48)
[2019-01-21] MEDS: OXcarbazepine 150 MG TABLET PO SCH (09:49)
[2019-01-21] MEDS: THIAMINE HCL 100 MG TAB PO SCH (09:49)
[2019-01-21] MEDS: FUROSEMIDE 20 MG in SYRINGE 0 ML IV SCH (09:50)
[2019-01-21] MEDS: levoFLOXacin 750 MG TAB PO SCH (11:12)
--- NOTE | 2019-01-21 11:50 | Hospitalist Progress Note ---
Date of Service January 21, 2019 Assessment & Plan (1) Sepsis associated hypotension: Improved (2) Acute UTI: Klebsiella in his urine and his blood. Discussed duration of Levaquin with Dr. Stella Abbott infectious diseases it consultant and she recommended to continue Levaquin 750 mg daily p.o. for 2 more weeks to complete treatment of 3 weeks for bacteremia, urinary tract infection and presumed prostatitis. Patient is eager to go home. Wants to be discharged. Good p.o. intake. Patient is on 2 L of supplemental oxygen and he states that this is how much he uses at home. Patient has a walker. Patient refused to go to alf but accepted home health. 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 Seems to run chronically constipated, suspect his heavy alcohol intake contributes. He is improved with an enema. Diarrhea resolved. (4) Acute hyponatremia: Likely related to beer intake-beer Potomania. Fluid p.o. restriction of 1200 cc.Hyponatremia improved to 133 Overall stable. (5) Acute hypotension: Resolvedwas due to sepsis (6) Metabolic encephalopathy: Improved. Now he appears to be stubborn and lacking insight into his weakness, but he seems otherwise coherent, so I suspect most of his encephalopathy has resolved. (7) Cellulitis: Questionable whether it was present at all, but definitely seems to have resolved. Continue Levaquin for 2 more weeks. (8) COPD (chronic obstructive pulmonary disease): Breathing continues to be stablewith his exam and how sick he was/immobilityI suspect his hypoxia and need for 2 L is atelectasis, as well as the need for pulmonary toilet. Incentive spirometry ordered, activity encouraged. Continue Advair PRN albuterol nebs. (9) Alcohol withdrawal: Appears stable in this regard, and he has now decided that he is not drinking. (10) Generalized weakness: Multifactorial PT/OT eval and treat ongoing. Patient refused rehab but okay with home health physical therapy. Requesting to be discharged home today. (11) Chronic venous stasis: Improving with PO free water restriction, Antibiotics. Will start also Furosemide 20 mg IV BID to see if that will help in reducing volume in the lower ext.Will refer to lymphedema specialist. (12) Discharge planning issues: See above. He would be most appropriate for rehab, insisting on going home which does not appear to be safe at this time. (13) Lymphedema: Plan to refer patient to lymphedema specialist as an outpatient. Present on Admission?: Yes Subjective Patient seen and examined at the bedside. No acute events overnight. Hyponatremia slowly improving and today sodium is 133. Patient continues to be on p.o. fluid restriction of 1200 cc daily. Afebrile. Patient denies fever chills chest pain shortness of breath abdominal pain frequency urgency. Diarrhea resolved. Appetite is slowly improving. Hyponatremia improved. Patient is most appropriate for alf in consideration of his PT OT abilities. Patient refused. He accepted to have home health physical therapy coming to his home. Review of Systems Review of Systems: All systems reviewed & are unremarkable except as noted in HPI & below Physical Exam Constitutional: WD/WN, vitals as above well developed Eyes: PERRL, conjunctivae normal, anicteric sclerae ENMT: external ear and nose normal, oropharynx normal Neck: trachea midline, no thyromegaly Respiratory: Auscultation: lungs clear to auscultation bilaterally Cardiovascular: Heart Sounds: normal S1, normal S2 and + murmur Vessels: dorsalis pedis pulses present Extremities: + pedal edema (1+ pitting) Chest (Breasts): normal inspection/palpation of breasts Gastrointestinal (Abdomen): normal bowel sounds, soft, nontender, no hepatosplenomegaly Musculoskeletal: no cyanosis or clubbing, extremities motor strength 5/5 Skin: no rashes, warm and dry Neurologic: patellar DTR's 2+ bilat, sensation intact Psychiatric: A+Ox3, euthymic affect Insight: + limited insight (Due to alcohol induced encephalopathy) Judgement: + limited judgement Lymphatic: no cervical or axillary lymphadenopathy Results & Data Vital Signs (Past 12 Hours) Vital Signs Temp Pulse Resp BP Pulse Ox 01/21/19 07:52 37.0 C 81 16 114/63 95 PG Care Time/CCT Total # of Minutes Spent Total Time Spent with Patient: Total time spent is greater than 50% in coordination of care (as documented) at patient's floor/unit and/or counseling patient: (1) Cellulitis Laterality: unspecified laterality Site of cellulitis: extremity Site of cellulitis of extremity: lower extremity Qualified Code(s): L03.119 - Cellulitis of unspecified part of limb (2) Alcohol withdrawal Complication of substance-induced condition: with perceptual disturbance Qualified Code(s): 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
--- NOTE | 2019-01-21 11:51 | Discharge Summary ---
Date of Service January 21, 2019 Principal Diagnosis none Discharge Exam Constitutional WD/WN, vitals as above well developed Eyes PERRL, conjunctivae normal, anicteric sclerae ENMT external ear and nose normal, oropharynx normal Neck trachea midline, no thyromegaly Respiratory Auscultation: lungs clear to auscultation bilaterally Cardiovascular Heart Sounds: normal S1, normal S2 and + murmur Palpation: + palpable S3 Vessels: dorsalis pedis pulses present Extremities: + pedal edema (1+ pitting) Chest (Breasts) normal inspection/palpation of breasts Gastrointestinal (Abdomen) normal bowel sounds, soft, nontender, no hepatosplenomegaly Musculoskeletal no cyanosis or clubbing, extremities motor strength 5/5 Skin no rashes, warm and dry Neurologic patellar DTR's 2+ bilat, sensation intact Psychiatric A+Ox3, euthymic affect Insight: + limited insight (Due to alcohol induced encephalopathy) Judgement: + limited judgement Lymphatic no cervical or axillary lymphadenopathy Discharge Data Allergies Allergy/AdvReac Type Severity Reaction Status Date / Time No Known Allergies Allergy Verified 01/10/19 00:10 Consultations 01/10/19 00:44 ED Decision to Admit Stat 01/10/19 11:16 Consult Mva Still Operator Routine 01/13/19 07:46 Consult Case Management - Discharge Planning Routine Ordered Studies 01/09/19 20:49 US venous doppler LE BI Urgent 01/09/19 21:11 CT abd pelvis IV con only Urgent CT head/brain wo con Urgent Hospital Course (1) Sepsis associated hypotension: Improved (2) Acute UTI: Klebsiella in his urine and his blood. Discussed duration of Levaquin with Dr. Stella Abbott infectious diseases customer care consultant and she recommended to continue Levaquin 750 mg daily p.o. for 2 more weeks to complete treatment of 3 weeks for bacteremia, urinary tract infection and presumed prostatitis. Patient is eager to go home. Wants to be discharged. Good p.o. intake. Patient is on 2 L of supplemental oxygen and he states that this is how much he uses at home. Patient has a walker. Patient refused to go to alf but accepted home health. 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 Seems to run chronically constipated, suspect his heavy alcohol intake contributes. He is improved with an enema. Diarrhea resolved. (4) Acute hyponatremia: Likely related to beer intake-beer Potomania. Fluid p.o. restriction of 1200 cc.Hyponatremia improved to 133 Overall stable. (5) Acute hypotension: Resolvedwas due to sepsis (6) Metabolic encephalopathy: Improved. Now he appears to be stubborn and lacking insight into his weakness, but he seems otherwise coherent, so I suspect most of his encephalopathy has resolved. (7) Cellulitis: Questionable whether it was present at all, but definitely seems to have resolved. Continue Levaquin for 2 more weeks. (8) COPD (chronic obstructive pulmonary disease): Breathing continues to be stablewith his exam and how sick he was/immobilityI suspect his hypoxia and need for 2 L is atelectasis, as well as the need for pulmonary toilet. Incentive spirometry ordered, activity encouraged. Continue Advair PRN albuterol nebs. (9) Alcohol withdrawal: Appears stable in this regard, and he has now decided that he is not drinking. (10) Generalized weakness: Multifactorial PT/OT eval and treat ongoing. Patient refused rehab but okay with home health physical therapy. Requesting to be discharged home today. (11) Chronic venous stasis: Improving with PO free water restriction, Antibiotics. Will start also Furosemide 20 mg IV BID to see if that will help in reducing volume in the lower ext.Will refer to lymphedema specialist. (12) Discharge planning issues: See above. He would be most appropriate for rehab, insisting on going home which does not appear to be safe at this time. (13) Lymphedema: Plan to refer patient to lymphedema specialist as an outpatient. Total Time Total Time Spent Total Time Spent (In Minutes): over 30 min Discharge Plan Discharge Items Patient Disposition: Home - Self-Care Reason For Visit: hyponatremia Discharge Diagnosis: bacteremia Condition on Discharge: Good Goals: Keep hyponatremia under control. Avoid eating salty food and drinking more then 4-5 cups of free water per day. Activity: Resume your previous activity Lifting: Gradually increase as tolerated Non-emergency contact: Primary Care Provider Call non-emergency contact if: you have any medication questions, your pain is unusual for you, your pain is concerning for you, you have a fever and your rectal temperature is above 100.4 Follow-up/Referrals: Russell Dang, DO [Primary Care Provider] - 01/17/19 9:20 am (Please, follow up with Dr. Russell Dang on SundayJanuary 17 at 9:20 am. *If you need to change this appointment, call the office at [phone].) Diet: Heart Healthy Fluids: 1200ml (5 cups) Addtl Attending Provider Instructions: Please follow up with PCP within the 3 days and check CBC and CMP next visit with your PCP. Check for chronic anemia and consider colonoscopy. You will need to continue antibiotic Levaquin for 11 more days. Avoid drinking alcohol.Continue supplemental Oxygen at 3 L as you use to before.We are referring you to Lymphedema specialist for the swelling of your legs. Pending Studies at Discharge: Yes Stand-Alone Forms: My [facility] Medications and DC Order Prescriptions: New levofloxacin 750 mg Tablet 750 mg PO DAILY@1100 Qty: 11 RF: 0 thiamine HCl (vitamin B1) [Vitamin B-1] 100 mg Tablet 100 mg PO QAM Qty: 30 RF: 0 Continued metoprolol succinate [Toprol XL] 25 mg tablet extended release 24 hr 25 mg PO DAILY RF: 0 albuterol sulfate 90 mcg/actuation HFA aerosol inhaler 1 - 2 puff INHALATION Q4H PRN (Reason: Shortness Of Breath) Qty: 18 RF: 1 atorvastatin 40 mg tablet 40 mg PO HS RF: 0 folic acid 400 mcg tablet 0.4 mg PO DAILY RF: 0 lisinopril 10 mg tablet 10 mg PO DAILY RF: 0 oxcarbazepine 300 mg tablet 300 mg PO BID RF: 0 vitamin B complex-folic acid 2,000 mcg capsule 1 cap PO DAILY RF: 0 venlafaxine 150 mg capsule,extended release 24hr 150 mg PO DAILY RF: 0 pregabalin 100 mg capsule 100 mg PO BID Qty: 60 RF: 0 metoprolol succinate 50 mg tablet extended release 24 hr 50 mg PO DAILY Qty: 30 RF: 0 gabapentin 100 mg capsule 300 mg PO TID Qty: 180 RF: 0 fluticasone propion-salmeterol [Advair Diskus] 500-50 mcg/dose blister with device 1 inh inhalation DIRECTED RF: 0 Discharge Orders: Discharge Order (Routine); Ordered 01/21/19 Ordered By: Roxana Ruby Admission Data Admit Date/Time: 01/10/19 01:20 Attending Provider: Mehulic,Suarna Admit Provider: Lauro Wang Primary Care Provider: Russell Dang. Other Providers: Rey Paz ; Lauro Wang ; Huber Andrews ; [facility]
== END 2019-01-21 14:00 | disposition home health service (06) | DRG 871 ==
LOC: ED 20:15 → SUATTDRO 01-10 01:20 → 1E 01-10 01:20 → 2N 01-12 17:39 → 3N 01-14 01:03

== ENCOUNTER 2019-01-24 21:51 | Inpatient (IN) ==
[2019-01-24 22:56] LABS: Basophils # (auto) 0.03 K/uL (0-0.2); Basophils % (auto) 0.4 %; Eosinophils # (auto) 0.23 K/uL (0-0.5); Hematocrit (blood only) 29.6 % (42-52); Hemoglobin 10.5 g/dL (14.0-18.0); Immature Granulocytes # (auto) 0.03 K/uL (0.00-0.02); Immature Granulocytes % (auto) 0.4 %; Lymphocytes # (auto) 0.78 K/uL (1.2-3.4); Lymphocytes % (auto) 10.1 %; Mean Corpuscular Hemoglobin 32.2 pg (25-34); Mean Corpuscular Hgb Conc 35.5 g/dL (32-36); Mean Corpuscular Volume 90.8 fL (80-100); Monocytes # (auto) 0.58 K/uL (0.11-0.59); Monocytes % (auto) 7.5 %; Neutrophils # (auto) 6.07 K/uL (1.4-6.5); Neutrophils % (auto) 78.6 %; Platelet Count 212 K/uL (130-400); RDW Coefficient of Variation 13.6 % (11.5-14.5); RDW Standard Deviation 45.3 fL (36.4-46.3); Red Blood Count 3.26 M/uL (4.7-6.1); White Blood Count 7.72 K/uL (4.8-10.8)
[2019-01-24 23:07] LABS: Partial Thromboplastin Time 26.9 Seconds (21.0-31.0); Prothrombin Time 10.4 Seconds (9.0-12.0)
[2019-01-24 23:13] LABS: Alanine Aminotransferase 27 U/L (12-78); Albumin Level 3.1 gm/dl (3.4-5.0); Aspartate Aminotransferase 17 U/L (15-37); BUN Creatinine Ratio 9.5 (10-20); Blood Urea Nitrogen 10 mg/dl (7-18); Calcium 8.2 mg/dl (8.5-10.1); Carbon Dioxide 26 mmol/L (21-32); Chloride 85 mmol/L (98-107); Creatinine Clr Calc Pharmacy 75.1 ml/min; Est GFR (African American) 81.5; Est GFR (Non-African American) 70.4; Glucose 113 mg/dl (70-99); Magnesium 1.4 mg/dl (1.8-2.4); Potassium 3.1 mmol/L (3.5-5.1); Sodium 123 mmol/L (136-145)
[2019-01-24] MEDS ORDERED: VANCOMYCIN CONSULT ACTIVE PRN (23:18)
[2019-01-24] MEDS ORDERED: VANCOMYCIN HCL 2,000 MG in SODIUM CHLORIDE 0.9% 500 ML IV ONE (23:18)
[2019-01-24] MEDS ORDERED: PIPERACILLIN/TAZOBACTAM 4.5 GM/120 ML BAG IV ONE (23:18)
[2019-01-24] MEDS ORDERED: PIPERACILL/TAZOBAC CONSULT ACTIVE PRN (23:18)
[2019-01-24 23:24] LABS: Albumin Globulin Ratio 0.9 (0.9-2); Alkaline Phosphatase 81 U/L (45-117); Bilirubin,Total 0.4 mg/dl (0.2-1); Creatine Kinase 60 U/L (39-308); Globulin 3.6 gm/dl (2.5-4.0); NT Pro B Type Natriuretic Pept 103 pg/ml (0-900); Total Protein 6.7 gm/dl (6.4-8.2); Troponin I < 0.015 ng/ml (0-0.045)
[2019-01-24] MEDS ORDERED: POTASSIUM CHLORIDE / WTR 10 MEQ/100 ML PLCT IV ONE (23:24)
[2019-01-24] MEDS ORDERED: MAGNESIUM SULFATE / D5W 1 GM/100 ML BAG IV ONE (23:24)
--- NOTE | 2019-01-24 23:33 | Emergency Department Note ---
History of Present Illness General Chief complaint: Syncope Stated complaint: SYNCOPE Time Seen by Provider: 01/24/19 21:59 History of Present Illness This is a 68-year-old male presenting to the emergency department for evaluation of syncopal versus seizure-like activity that began tonight. The patient evidently had a spontaneous syncopal episode at home, and his contacted EMS. BLS did arrive on scene, and the patient was acting somewhat normal. He did have a second syncopal episode in front of BLS, and they did contact ALS for hospital transport. The patient had a third episode of syncope versus seizure- like activity with ALS. Upon arrival to the ER the patient is somewhat confused and slurring his speech. He is moving his extremities and able to answer questions. The patient admits to drinking 3 beers tonight, which is essentially normal for him. The patient has a history of sepsis with admission to this facility about 2 weeks ago. The patient was discharged several days ago on Lev aquin for pansensitive Klebsiella bacteremia. The patient discomfort is currently rated a 2/10. He is not reporting pain or other injury. Home Medications Home Medications Medication Instructions Recorded Confirmed Type gabapentin 100 mg capsule 300 mg PO TID #180 cap 11/19/18 01/24/19 History pregabalin 100 mg capsule 100 mg PO BID #60 cap 12/04/18 01/24/19 History metoprolol succinate ER 25 mg 25 mg PO DAILY 12/06/18 01/24/19 History tablet,extended release 24 hr metoprolol succinate ER 50 mg 50 mg PO DAILY #30 tab 12/06/18 01/24/19 History tablet,extended release 24 hr albuterol sulfate HFA 90 1 - 2 puff INHALATION Q4H PRN #18 12/13/18 01/24/19 Rx mcg/actuation aerosol inhaler gm atorvastatin 40 mg tablet 40 mg PO HS 12/13/18 01/24/19 History folic acid 400 mcg tablet 0.4 mg PO DAILY 12/13/18 01/24/19 History lisinopril 10 mg tablet 10 mg PO DAILY 12/13/18 01/24/19 History oxcarbazepine 300 mg tablet 300 mg PO BID 12/13/18 01/24/19 History venlafaxine ER 150 mg 150 mg PO DAILY 12/13/18 01/24/19 History capsule,extended release 24 hr vitamin B complex-folic acid 2,000 1 cap PO DAILY 12/13/18 01/24/19 History mcg capsule fluticasone propion-salmeterol 1 inh INHALATION DIRECTED 01/10/19 01/24/19 History [Advair Diskus] ferrous fumarate-vitamin C 1 tab PO DAILY #30 tab 01/21/19 01/24/19 Rx [Mariola-Sequels (iron-vit c)] levofloxacin 750 mg PO DAILY@1100 #11 tab 01/21/19 01/24/19 Rx thiamine HCl (vitamin B1) [Vitamin 100 mg PO QAM #30 tab 01/21/19 01/24/19 Rx B-1] furosemide 20 mg PO BID 01/24/19 01/24/19 History Allergies Allergy/AdvReac Type Severity Reaction Status Date / Time No Known Allergies Allergy Verified 01/24/19 22:54 Past Med/Surg History Family History Father Hypertension Aneurysm Mother Swelling Uncle Myocardial infarction Other No significant family history Social History Preferred Language: Mongolian Communication Ability: Effective Visual Impairment: Limited Hearing Ability: Normal Cement Finisher Required: No Beliefs That Will Affect Care: None marital status: Current Living Situation: Spouse current occupational status: retired Feels Safe at Home: Yes Smoking Status: Unknown if ever smoked Hx Alcohol Use: Yes Alcohol type: beer Alcohol Intake Frequency Comment: 8+ per day Hx Substance Use: No Childhood Exposure to Second-Hand Smoke: Yes Dental Care, Regularly: No Physical Activity Frequency: Does not Exercise Seatbelt Use: always Sunscreen Use: No Review of Systems A total of 10 systems reviewed and were otherwise negative Physical Exam Vital Signs Vital Signs - 24 hr 01/24/19 22:00 01/24/19 22:06 01/24/19 22:15 Temperature 36.7 C Temperature Source Oral Sepsis Recent Fever Within 48 Hours No Sepsis New/Unexplained Change in Mental Status No Sepsis Action Taken by Nursing No Action Required Pulse Rate 86 88 Pulse Rate from SpO2 Sensor 86 Respiratory Rate 16 16 Respiratory Effort / Characteristics Non-Labored Spontaneous Respiratory Depth Normal Respiratory Pattern Regular Blood Pressure 93/59 L Blood Pressure Mean 70 Blood Pressure Position Lying Pulse Oximetry 94 95 95 Oxygen Delivery Method Room Air Room Air Oxygen Flow Rate 01/24/19 22:18 01/24/19 22:30 01/24/19 22:45 Temperature Temperature Source Sepsis Recent Fever Within 48 Hours Sepsis New/Unexplained Change in Mental Status Sepsis Action Taken by Nursing Pulse Rate 87 88 87 Pulse Rate from SpO2 Sensor 87 87 Respiratory Rate 17 17 17 Respiratory Effort / Characteristics Respiratory Depth Respiratory Pattern Blood Pressure 99/64 L 110/73 Blood Pressure Mean 75 85 Blood Pressure Position Pulse Oximetry 95 98 Oxygen Delivery Method Room Air Oxygen Flow Rate 01/24/19 23:04 01/24/19 23:05 Temperature Temperature Source Sepsis Recent Fever Within 48 Hours Sepsis New/Unexplained Change in Mental Status Sepsis Action Taken by Nursing Pulse Rate 89 86 Pulse Rate from SpO2 Sensor 89 86 Respiratory Rate 17 14 Respiratory Effort / Characteristics Respiratory Depth Respiratory Pattern Blood Pressure 127/76 Blood Pressure Mean 93 Blood Pressure Position Pulse Oximetry 98 99 Oxygen Delivery Method Room Air Nasal Cannula Oxygen Flow Rate 3 VITALS: Vitals are noted on the nurse's note and reviewed by myself. Vital signs show a low initial blood pressure. GENERAL: Chronically ill-appearing white male who is not in acute distress. HEAD: Normocephalic atraumatic. NECK: Supple without nuchal rigidity. No lymphadenopathy. No thyromegaly. Cervical spine is nontender. HEART: Regular rate and rhythm LUNGS: Clear to auscultation bilaterally without wheezes, rales or rhonchi. No retractions or accessory muscle use. ABDOMEN: Positive normal bowel sounds x 4. Soft, nontender, without masses or organomegaly. MUSCULOSKELETAL: No muscle atrophy, erythema, or edema noted. Full range of motion in all extremities. NEURO: Patient was alert and answering most questions appropriately. He does have some slurring of his speech. He is with full range of motion of his extremities. No facial droop. SKIN: The skin was without rashes, erythema, edema, or bruising. Capillary refill less than 2 seconds. Course Administered Medications Piperacillin Sod/Tazobactam Sod (Zosyn) 4.5 gm in 120 mls @ 240 mls/hr IV NOW O NE Stop: 01/24/19 23:47 Last Admin: 01/24/19 23:26 Dose: 240 mls/hr Documented by: [id number] Miscellaneous Information (Consult) 1 ea N/A UD PRN PRN Reason: Consult Stop: 02/23/19 23:17 Last Admin: 01/24/19 23:26 Dose: 1 ea Documented by: [id number] Medical Decision Making Differential Diagnosis Differential diagnosis: Etiologies such as sepsis, UTI, pneumonia, syncope, seizure, alcohol intoxication, bacteremia, metabolic process, electrolyte abnormalities, cardiac sources, intracerebral event, intra-abdominal process, toxicological process, neurologic process, as well as others were entertained. Laboratory Data Result diagrams: 01/24/19 22:34 01/24/19 22:34 Lab Results 01/24/19 01/24/19 01/24/19 Range/Units 22:34 22:34 22:34 WBC 7.72 (4.8-10.8) K/uL RBC 3.26 L (4.7-6.1) M/uL Hgb 10.5 L (14.0-18.0) g/dL Hct 29.6 L (42-52) % MCV 90.8 (80-100) fL MCH 32.2 (25-34) pg MCHC 35.5 (32-36) g/dL RDW Std Deviation 45.3 (36.4-46.3) fL RDW Coeff of Jem 13.6 (11.5-14.5) % Plt Count 212 (130-400) K/uL MPV 8.0 (7.4-10.4) fL Immature Gran % (Auto) 0.4 % Neut % (Auto) 78.6 % Lymph % (Auto) 10.1 % Clare % (Auto) 7.5 % Eos % (Auto) 3.0 % Baso % (Auto) 0.4 % Immature Gran # (Auto) 0.03 H (0.00-0.02) K/uL Neut # (Auto) 6.07 (1.4-6.5) K/uL Lymph # (Auto) 0.78 L (1.2-3.4) K/uL Clare # (Auto) 0.58 (0.11-0.59) K/uL Eos # (Auto) 0.23 (0-0.5) K/uL Baso # (Auto) 0.03 (0-0.2) K/uL PT 10.4 (9.0-12.0) Seconds INR 1.0 (0.9-1.1) APTT 26.9 (21.0-31.0) Seconds PTT Ratio 1.0 Sodium 123 L (136-145) mmol/L Potassium 3.1 L (3.5-5.1) mmol/L Chloride 85 L (98-107) mmol/L Carbon Dioxide 26 (21-32) mmol/L Anion Gap 12.0 H (3-11) BUN 10 (7-18) mg/dl Creatinine 1.09 (0.6-1.4) mg/dl Est Cr Clr Drug Dosing 75.1 ml/min Est GFR ( Amer) 81.5 Est GFR (Non-Af Amer) 70.4 BUN/Creatinine Ratio 9.5 L (10-20) Glucose 113 H (70-99) mg/dl Lactate (0.4-2.0) mmol/L Calcium 8.2 L (8.5-10.1) mg/dl Magnesium 1.4 L (1.8-2.4) mg/dl Total Bilirubin 0.4 (0.2-1) mg/dl AST 17 (15-37) U/L ALT 27 (12-78) U/L Alkaline Phosphatase 81 (45-117) U/L Ammonia (11-32) umol/L Total Creatine Kinase 60 (39-308) U/L Troponin I < 0.015 (0-0.045) ng/ml NT-Pro-B Natriuret Pep 103 (0-900) pg/ml Total Protein 6.7 (6.4-8.2) gm/dl Albumin 3.1 L (3.4-5.0) gm/dl Globulin 3.6 (2.5-4.0) gm/dl Albumin/Globulin Ratio 0.9 (0.9-2) Procalcitonin (0-0.5) ng/ml TSH 1.540 (0.300-4.500) uIu/ml Ethyl Alcohol mg/dL (0-3) mg/dl 01/24/19 01/24/19 01/24/19 Range/Units 22:34 22:34 22:34 WBC (4.8-10.8) K/uL RBC (4.7-6.1) M/uL Hgb (14.0-18.0) g/dL Hct (42-52) % MCV (80-100) fL MCH (25-34) pg MCHC (32-36) g/dL RDW Std Deviation (36.4-46.3) fL RDW Coeff of Jem (11.5-14.5) % Plt Count (130-400) K/uL MPV (7.4-10.4) fL Immature Gran % (Auto) % Neut % (Auto) % Lymph % (Auto) % Clare % (Auto) % Eos % (Auto) % Baso % (Auto) % Immature Gran # (Auto) (0.00-0.02) K/uL Neut # (Auto) (1.4-6.5) K/uL Lymph # (Auto) (1.2-3.4) K/uL Clare # (Auto) (0.11-0.59) K/uL Eos # (Auto) (0-0.5) K/uL Baso # (Auto) (0-0.2) K/uL PT (9.0-12.0) Seconds INR (0.9-1.1) APTT (21.0-31.0) Seconds PTT Ratio Sodium (136-145) mmol/L Potassium (3.5-5.1) mmol/L Chloride (98-107) mmol/L Carbon Dioxide (21-32) mmol/L Anion Gap (3-11) BUN (7-18) mg/dl Creatinine (0.6-1.4) mg/dl Est Cr Clr Drug Dosing ml/min Est GFR ( Amer) Est GFR (Non-Af Amer) BUN/Creatinine Ratio (10-20) Glucose (70-99) mg/dl Lactate 3.2 H* (0.4-2.0) mmol/L Calcium (8.5-10.1) mg/dl Magnesium (1.8-2.4) mg/dl Total Bilirubin (0.2-1) mg/dl AST (15-37) U/L ALT (12-78) U/L Alkaline Phosphatase (45-117) U/L Ammonia 15.5 (11-32) umol/L Total Creatine Kinase (39-308) U/L Troponin I (0-0.045) ng/ml NT-Pro-B Natriuret Pep (0-900) pg/ml Total Protein (6.4-8.2) gm/dl Albumin (3.4-5.0) gm/dl Globulin (2.5-4.0) gm/dl Albumin/Globulin Ratio (0.9-2) Procalcitonin < 0.05 (0-0.5) ng/ml TSH (0.300-4.500) uIu/ml Ethyl Alcohol mg/dL (0-3) mg/dl 01/24/19 Range/Units 22:39 WBC (4.8-10.8) K/uL RBC (4.7-6.1) M/uL Hgb (14.0-18.0) g/dL Hct (42-52) % MCV (80-100) fL MCH (25-34) pg MCHC (32-36) g/dL RDW Std Deviation (36.4-46.3) fL RDW Coeff of Jem (11.5-14.5) % Plt Count (130-400) K/uL MPV (7.4-10.4) fL Immature Gran % (Auto) % Neut % (Auto) % Lymph % (Auto) % Clare % (Auto) % Eos % (Auto) % Baso % (Auto) % Immature Gran # (Auto) (0.00-0.02) K/uL Neut # (Auto) (1.4-6.5) K/uL Lymph # (Auto) (1.2-3.4) K/uL Clare # (Auto) (0.11-0.59) K/uL Eos # (Auto) (0-0.5) K/uL Baso # (Auto) (0-0.2) K/uL PT (9.0-12.0) Seconds INR (0.9-1.1) APTT (21.0-31.0) Seconds PTT Ratio Sodium (136-145) mmol/L Potassium (3.5-5.1) mmol/L Chloride (98-107) mmol/L Carbon Dioxide (21-32) mmol/L Anion Gap (3-11) BUN (7-18) mg/dl Creatinine (0.6-1.4) mg/dl Est Cr Clr Drug Dosing ml/min Est GFR ( Amer) Est GFR (Non-Af Amer) BUN/Creatinine Ratio (10-20) Glucose (70-99) mg/dl Lactate (0.4-2.0) mmol/L Calcium (8.5-10.1) mg/dl Magnesium (1.8-2.4) mg/dl Total Bilirubin (0.2-1) mg/dl AST (15-37) U/L ALT (12-78) U/L Alkaline Phosphatase (45-117) U/L Ammonia (11-32) umol/L Total Creatine Kinase (39-308) U/L Troponin I (0-0.045) ng/ml NT-Pro-B Natriuret Pep (0-900) pg/ml Total Protein (6.4-8.2) gm/dl Albumin (3.4-5.0) gm/dl Globulin (2.5-4.0) gm/dl Albumin/Globulin Ratio (0.9-2) Procalcitonin (0-0.5) ng/ml TSH (0.300-4.500) uIu/ml Ethyl Alcohol mg/dL 12.0 H (0-3) mg/dl MDM Narrative Physical exam and history were performed. Nursing notes, EMR, and Medication List were personally reviewed. Patient appears to have had multiple syncopal episodes and possible seizure-like activity tonight. The patient was recently admitted to this facility for hypotension secondary to sepsis. The patient is afebrile at this time, although his blood pressure is low. IV access was established and labs were obtained. He was hydrated with 1 L normal saline. He was placed on the bus driver/monitor. Blood cultures were gathered. The case was discussed with my attending physician. The patient's blood work is as above and was reviewed. He does not have a significantly elevated white blood cell count. Hemoglobin is 10.5, which is improved from hemoglobin 3 days ago which was 8.8. Sodium is low at 123, however this is somewhat stable for the patient. Potassium is 3.1 and magnesium is 1.4. Both of these were repleted through the IV. Lactic acid is elevated at 3.2 with blood cultures pending. Chest x-ray was reviewed showing no acute process. CT scan of the head was reviewed by myself and radiology also showing no obvious acute process. Review of his past cultures show that he has had a re cent pansensitive Klebsiella. The patient was started on vancomycin and Zosyn. Patient was reevaluated multiple times for the course of his stay. His blood pressure did improve with fluids, and clinically he looks much better. Overall I have concern that the patient is on well for discharge home. He has had recent hypotension associated to sepsis, and he may be septic again. The case was discussed with the on-call hospitalist who agreed to evaluate the patient here in the department. Please see their dictation for further patient course, plan, and disposition. The chart was completed utilizing [employer] Speech Voice Recognition Software. Grammatical errors, random word insertions, pronoun errors, and incomplete sentences are an occasional consequence of this system due to software trejo itations, ambient noise, and hardware issues. Any formal questions or concerns about the content, text, or information contained within the body of this dictation should be directly addressed to the provider for clarification. . Impression & Plan Sepsis associated hypotension, Hypokalemia, Hyponatremia, Syncope and collapse, Hypomagnesemia Discharge Plan Visit Data Chief Complaint: Syncope Stated Complaint: SYNCOPE ED Provider: [facility] ED Midlevel Provider: Checo Campo Discharge Problem: Sepsis associated hypotension, Hypokalemia, Hyponatremia, Syncope and collapse, Hypomagnesemia Forms Stand Alone Forms: [facility] [place] [employer] Prescriptions Prescriptions: No Action metoprolol succinate [Toprol XL] 25 mg tablet extended release 24 hr 25 mg PO DAILY RF: 0 albuterol sulfate 90 mcg/actuation HFA aerosol inhaler 1 - 2 puff INHALATION Q4H PRN (Reason: Shortness Of Breath) Qty: 18 RF: 1 atorvastatin 40 mg tablet 40 mg PO HS RF: 0 folic acid 400 mcg tablet 0.4 mg PO DAILY RF: 0 lisinopril 10 mg tablet 10 mg PO DAILY RF: 0 oxcarbazepine 300 mg tablet 300 mg PO BID RF: 0 vitamin B complex-folic acid 2,000 mcg capsule 1 cap PO DAILY RF: 0 venlafaxine 150 mg capsule,extended release 24hr 150 mg PO DAILY RF: 0 pregabalin 100 mg capsule 100 mg PO BID Qty: 60 RF: 0 metoprolol succinate 50 mg tablet extended release 24 hr 50 mg PO DAILY Qty: 30 RF: 0 gabapentin 100 mg capsule 300 mg PO TID Qty: 180 RF: 0 fluticasone propion-salmeterol [Advair Diskus] 500-50 mcg/dose blister with device 1 inh inhalation DIRECTED RF: 0 levofloxacin 750 mg Tablet 750 mg PO DAILY@1100 Qty: 11 RF: 0 thiamine HCl (vitamin B1) [Vitamin B-1] 100 mg Tablet 100 mg PO QAM Qty: 30 RF: 0 Mariola-Sequels (iron-vit c) 200 mg (65 mg iron)-25 mg tablet extended release 1 tab PO DAILY Qty: 30 RF: 1 furosemide 20 mg tablet 20 mg PO BID RF: 0 Referrals Referrals: Russell Dang DO [Primary Care Provider] -
--- NOTE | 2019-01-25 00:38 | History & Physical Report ---
Date of Service January 25, 2019 Assessment & Plan (1) Syncope and collapse: Patient with three episodes of syncope prior to arrival. He was mildly hypotensive in the ER. Poor PO intake. ?Orthostatic syncope vs dehydration vs cardiogenic. Patient with prolonged QT interval since being on Levaquin - now at 439 which is not significantly prolonged, however it has increased from prior study at 384 -Admit to PCU -Telemetry monitoring -Check orthostatic VS -IVF, NSS + KCL -Fall precautions Present on Admission?: Yes (2) Bacteremia: Patient with Klebsiella bacteremia. Blood cultures from 01/09 positive for figueroa-sensitive Klebsiella. Cultures from 01/11 negative. Blood cultures have been sent today as well. Patient denies fevers, chills, malaise, nausea, vomiting. He does not have leukocytosis at present. He reports compliance with Levaquin. Overall it appears that his infection is being well treated with the levaquin - do not strongly feel that his presentation today is technical service representative of sepsis or treatment failure. Would like to stop the Levaquin for now given the change in QT interval. He was given Zosyn in ER -Hold Levaquin -Will start Cefepime for now -Consider ID consultation to secure outpatient antibiotic plan -Continue to monitor Present on Admission?: Yes (3) UTI (urinary tract infection): +Klebsiella PNA. Presently afebrile, HD stable -Plan as above Present on Admission?: Yes (4) Hyponatremia: Na = 123. Patient appears to be clinically dry on physical exam. Hemoconcentrated, hypotensive, dry MM -NSS -Repeat chemistry in AM Present on Admission?: Yes (5) Hypomagnesemia: Magnesium x 1 gm administered in ER -Continue to monitor -Encourage PO intake Present on Admission?: Yes (6) Hypokalemia: K=3.1 -Replete -Repeat chemistry in AM Present on Admission?: Yes (7) Lymphedema: Chronic. -Elevate limbs -Hold Lasix for now Present on Admission?: Yes (8) Essential hypertension: Blood pressure slightly low on arrival -Hold antihypertensive agents, Lisinopril and Metoprolol -Hold Lasix -Continue to monitor Present on Admission?: Yes (9) Hyperlipidemia: Chronic. Stable -Continue Atorvastatin Present on Admission?: Yes (10) Alcohol abuse: EtOH = 12. Patient reports drinking 5 beers daily. Has had withdrawal in the past. Presently showing no signs of withdrawal -Continue Folic Acid, Thiamine, B-vitamin -AWSS with PO Ativan -Closely monitior for withdrawal Present on Admission?: Yes (11) COPD (chronic obstructive pulmonary disease): Chronic. Stable. No SOB. Mild scattered wheezing on exam -DuoNeb and Albuterol PRN -Continue Advair Present on Admission?: Yes (12) Neuropathy: Chronic -Continue Gabapentin and Lyrica F/E/N - NSS, monitor electrolytes and replete as needed, AHA diet as tolerated Ppx - Low risk, recent head trauma, lymphedema - avoid chemoppx Code -Full Dispo - Observation to PCU Present on Admission?: Yes History of Present Illness Chief Complaint: "feeling sick" Primary Care Provider: Russell Dang DO Lauro Barnes is a 68yo C male with history of COPD on 3L home O2, HTN, HLP, peripheral neuropathy and EtOH abuse. He was recently admitted from 01/10 - 01/21 with sepsis secondary to Klebsiella UTI and bacteremia (Blood culture from 01/09 +Klebsiella PNA, urine cx from 01/10 +Klebsiella PNA. Blood from 01/11 NGTD. Blood cx drawn today). Patient was evaluated by ID and placed on Levaquin 750mg to be taken for two additional weeks to complete a 3 week course. His hyponatremia was thought to be secondary to beer potomania - he presented with a level of 119 and was administered hypertonic saline and treated with fluid restriction. Na on discharge was improved to 133. He was evaluated by PT/OT and recommended discharge to SNF. However, patient was discharged home at his request. He followed up with his PCP today and overall seemed to be doing well. He reports that around 13:00 he was in his garage and tripped and fell, striking his head on the concrete. He reports headache since then. No additional complaints. Per discussion with ER provider, patient had multiple syncopal episodes at home. EMS as called and he had a second witnessed episode of syncope then ALS was called for hospital transport when he had a third episode of syncope. He denies fevers/chills/nausea/vomiting/diarrhea or constipation since returning home. He reports adherence to his Levaquin regimen. He reports poor appetite and po intake since returning home. He drinks appx 5 12 oz beers per day now. On arrival to the ER he was found to be afebrile, mildly hypotensive at 93/59, respiratory status stable. He was administered IVF with improvement in BP ER Course: Vancomycin 2gm, Zosyn 4.5gm, Mag 1gm Allergies Allergy/AdvReac Type Severity Reaction Status Date / Time No Known Allergies Allergy Verified 01/24/19 22:54 Home Medications Home Medications Medication Instructions Recorded Confirmed Type gabapentin 100 mg capsule 300 mg PO TID #180 cap 11/19/18 01/24/19 History pregabalin 100 mg capsule 100 mg PO BID #60 cap 12/04/18 01/24/19 History metoprolol succinate ER 25 mg 25 mg PO DAILY 12/06/18 01/24/19 History tablet,extended release 24 hr metoprolol succinate ER 50 mg 50 mg PO DAILY #30 tab 12/06/18 01/24/19 History tablet,extended release 24 hr albuterol sulfate HFA 90 1 - 2 puff INHALATION Q4H PRN #18 12/13/18 01/24/19 Rx mcg/actuation aerosol inhaler gm atorvastatin 40 mg tablet 40 mg PO HS 12/13/18 01/24/19 History folic acid 400 mcg tablet 0.4 mg PO DAILY 12/13/18 01/24/19 History lisinopril 10 mg tablet 10 mg PO DAILY 12/13/18 01/24/19 History oxcarbazepine 300 mg tablet 300 mg PO BID 12/13/18 01/24/19 History venlafaxine ER 150 mg 150 mg PO DAILY 12/13/18 01/24/19 History capsule,extended release 24 hr vitamin B complex-folic acid 2,000 1 cap PO DAILY 12/13/18 01/24/19 History mcg capsule fluticasone propion-salmeterol 1 inh INHALATION DIRECTED 01/10/19 01/24/19 History [Advair Diskus] ferrous fumarate-vitamin C 1 tab PO DAILY #30 tab 01/21/19 01/24/19 Rx [[employer] (iron-vit c)] levofloxacin 750 mg PO DAILY@1100 #11 tab 01/21/19 01/24/19 Rx thiamine HCl (vitamin B1) [Vitamin 100 mg PO QAM #30 tab 01/21/19 01/24/19 Rx B-1] furosemide 20 mg PO BID 01/24/19 01/24/19 History Past Med/Surg History Family History Father Hypertension Aneurysm Mother Swelling Uncle Myocardial infarction Other No significant family history Social History Preferred Language: Wolof Communication Ability: Effective Visual Impairment: Limited Hearing Ability: Normal Fence Maker Required: No Beliefs That Will Affect Care: None marital status: Current Living Situation: Spouse current occupational status: retired Feels Safe at Home: Yes Smoking Status: Unknown if ever smoked Hx Alcohol Use: Yes Alcohol type: beer Alcohol Intake Frequency Comment: 8+ per day Hx Substance Use: No Childhood Exposure to Second-Hand Smoke: Yes Dental Care, Regularly: No Physical Activity Frequency: Does not Exercise Seatbelt Use: always Sunscreen Use: No Review of Systems Review of Systems: +MORGAN Physical Exam Physical Exam: General: patient somnolent, arousable, NAD, chronically ill in appearance, AA&O to person, place and date Skin: warm, dry, intact, scattered bruising on bilateral forearms HEENT: facial bones stable, + posterior occipital tenderness, no cervical spine tenderness, PERRL, EOMI, anicteric sclera, conjunctiva without injection, external ear normal to inspection and nontender, TM pearly, nares patent, dry mucus membranes, dentition intact, no oropharyngeal lesions, neck supple, trachea midline, no LAD, no thyromegaly, no JVD Heart: +S1/S2, regular, no m/r/g Lungs: equal air entry bilaterally, no rales/rhonchi/wheezes Abd: +BS, soft, ND, +tenderness with epigastric palpation, no masses/organomegaly/ascites Ext: warm, 2+ pulses in UE/LE bilaterally, no clubbing/cyanosis, 2+ pitting edema bilaterally Neuro: nonfocal, patient AA&O x 4, speech slow but intact, no facial droop, moving all extremities on command with equal strength 5/5 Results & Data Vital Signs (Past 12 Hours) Vital Signs Temp Pulse Resp BP Pulse Ox 01/24/19 23:05 86 14 127/76 99 01/24/19 23:04 89 17 98 01/24/19 22:45 87 17 110/73 98 01/24/19 22:30 88 17 01/24/19 22:18 87 17 99/64 L 95 01/24/19 22:15 95 01/24/19 22:06 36.7 C 88 16 93/59 L 95 01/24/19 22:00 86 16 94 Laboratory Results Lab Results 01/24/19 01/24/19 01/24/19 Range/Units 22:34 22:34 22:34 WBC 7.72 (4.8-10.8) K/uL RBC 3.26 L (4.7-6.1) M/uL Hgb 10.5 L (14.0-18.0) g/dL Hct 29.6 L (42-52) % MCV 90.8 (80-100) fL MCH 32.2 (25-34) pg MCHC 35.5 (32-36) g/dL RDW Std Deviation 45.3 (36.4-46.3) fL RDW Coeff of Jem 13.6 (11.5-14.5) % Plt Count 212 (130-400) K/uL MPV 8.0 (7.4-10.4) fL Immature Gran % (Auto) 0.4 % Neut % (Auto) 78.6 % Lymph % (Auto) 10.1 % [place] % (Auto) 7.5 % Eos % (Auto) 3.0 % Baso % (Auto) 0.4 % Immature Gran # (Auto) 0.03 H (0.00-0.02) K/uL Neut # (Auto) 6.07 (1.4-6.5) K/uL Lymph # (Auto) 0.78 L (1.2-3.4) K/uL [place] # (Auto) 0.58 (0.11-0.59) K/uL Eos # (Auto) 0.23 (0-0.5) K/uL Baso # (Auto) 0.03 (0-0.2) K/uL PT 10.4 (9.0-12.0) Seconds INR 1.0 (0.9-1.1) APTT 26.9 (21.0-31.0) Seconds PTT Ratio 1.0 Sodium 123 L (136-145) mmol/L Potassium 3.1 L (3.5-5.1) mmol/L Chloride 85 L (98-107) mmol/L Carbon Dioxide 26 (21-32) mmol/L Anion Gap 12.0 H (3-11) BUN 10 (7-18) mg/dl Creatinine 1.09 (0.6-1.4) mg/dl Est Cr Clr Drug Dosing 75.1 ml/min Est GFR ( Amer) 81.5 Est GFR (Non-Af Amer) 70.4 BUN/Creatinine Ratio 9.5 L (10-20) Glucose 113 H (70-99) mg/dl Lactate (0.4-2.0) mmol/L Calcium 8.2 L (8.5-10.1) mg/dl Magnesium 1.4 L (1.8-2.4) mg/dl Total Bilirubin 0.4 (0.2-1) mg/dl AST 17 (15-37) U/L ALT 27 (12-78) U/L Alkaline Phosphatase 81 (45-117) U/L Ammonia (11-32) umol/L Total Creatine Kinase 60 (39-308) U/L Troponin I < 0.015 (0-0.045) ng/ml NT-Pro-B Natriuret Pep 103 (0-900) pg/ml Total Protein 6.7 (6.4-8.2) gm/dl Albumin 3.1 L (3.4-5.0) gm/dl Globulin 3.6 (2.5-4.0) gm/dl Albumin/Globulin Ratio 0.9 (0.9-2) Procalcitonin (0-0.5) ng/ml TSH 1.540 (0.300-4.500) uIu/ml Urine Color Urine Appearance (Clear) Urine pH (4.5-7.5) Ur Specific [place] (1.000-1.030) Urine Protein (Negative) Urine Glucose (UA) (Negative) Urine Ketones (Negative) Urine Blood (Negative) Urine Nitrite (Negative) Urine Bilirubin (Negative) Urine Urobilinogen (Negative) Ur Leukocyte Esterase (Negative) Ethyl Alcohol mg/dL (0-3) mg/dl 01/24/19 01/24/19 01/24/19 Range/Units 22:34 22:34 22:34 WBC (4.8-10.8) K/uL RBC (4.7-6.1) M/uL Hgb (14.0-18.0) g/dL Hct (42-52) % MCV (80-100) fL MCH (25-34) pg MCHC (32-36) g/dL RDW Std Deviation (36.4-46.3) fL RDW Coeff of Jem (11.5-14.5) % Plt Count (130-400) K/uL MPV (7.4-10.4) fL Immature Gran % (Auto) % Neut % (Auto) % Lymph % (Auto) % [place] % (Auto) % Eos % (Auto) % Baso % (Auto) % Immature Gran # (Auto) (0.00-0.02) K/uL Neut # (Auto) (1.4-6.5) K/uL Lymph # (Auto) (1.2-3.4) K/uL [place] # (Auto) (0.11-0.59) K/uL Eos # (Auto) (0-0.5) K/uL Baso # (Auto) (0-0.2) K/uL PT (9.0-12.0) Seconds INR (0.9-1.1) APTT (21.0-31.0) Seconds PTT Ratio Sodium (136-145) mmol/L Potassium (3.5-5.1) mmol/L Chloride (98-107) mmol/L Carbon Dioxide (21-32) mmol/L Anion Gap (3-11) BUN (7-18) mg/dl Creatinine (0.6-1.4) mg/dl Est Cr Clr Drug Dosing ml/min Est GFR ( Amer) Est GFR (Non-Af Amer) BUN/Creatinine Ratio (10-20) Glucose (70-99) mg/dl Lactate 3.2 H* (0.4-2.0) mmol/L Calcium (8.5-10.1) mg/dl Magnesium (1.8-2.4) mg/dl Total Bilirubin (0.2-1) mg/dl AST (15-37) U/L ALT (12-78) U/L Alkaline Phosphatase (45-117) U/L Ammonia 15.5 (11-32) umol/L Total Creatine Kinase (39-308) U/L Troponin I (0-0.045) ng/ml NT-Pro-B Natriuret Pep (0-900) pg/ml Total Protein (6.4-8.2) gm/dl Albumin (3.4-5.0) gm/dl Globulin (2.5-4.0) gm/dl Albumin/Globulin Ratio (0.9-2) Procalcitonin < 0.05 (0-0.5) ng/ml TSH (0.300-4.500) uIu/ml Urine Color Urine Appearance (Clear) Urine pH (4.5-7.5) Ur Specific [place] (1.000-1.030) Urine Protein (Negative) Urine Glucose (UA) (Negative) Urine Ketones (Negative) Urine Blood (Negative) Urine Nitrite (Negative) Urine Bilirubin (Negative) Urine Urobilinogen (Negative) Ur Leukocyte Esterase (Negative) Ethyl Alcohol mg/dL (0-3) mg/dl 01/24/19 01/25/19 Range/Units 22:39 00:34 WBC (4.8-10.8) K/uL RBC (4.7-6.1) M/uL Hgb (14.0-18.0) g/dL Hct (42-52) % MCV (80-100) fL MCH (25-34) pg MCHC (32-36) g/dL RDW Std Deviation (36.4-46.3) fL RDW Coeff of Jem (11.5-14.5) % Plt Count (130-400) K/uL MPV (7.4-10.4) fL Immature Gran % (Auto) % Neut % (Auto) % Lymph % (Auto) % [place] % (Auto) % Eos % (Auto) % Baso % (Auto) % Immature Gran # (Auto) (0.00-0.02) K/uL Neut # (Auto) (1.4-6.5) K/uL Lymph # (Auto) (1.2-3.4) K/uL [place] # (Auto) (0.11-0.59) K/uL Eos # (Auto) (0-0.5) K/uL Baso # (Auto) (0-0.2) K/uL PT (9.0-12.0) Seconds INR (0.9-1.1) APTT (21.0-31.0) Seconds PTT Ratio Sodium (136-145) mmol/L Potassium (3.5-5.1) mmol/L Chloride (98-107) mmol/L Carbon Dioxide (21-32) mmol/L Anion Gap (3-11) BUN (7-18) mg/dl Creatinine (0.6-1.4) mg/dl Est Cr Clr Drug Dosing ml/min Est GFR ( Amer) Est GFR (Non-Af Amer) BUN/Creatinine Ratio (10-20) Glucose (70-99) mg/dl Lactate (0.4-2.0) mmol/L Calcium (8.5-10.1) mg/dl Magnesium (1.8-2.4) mg/dl Total Bilirubin (0.2-1) mg/dl AST (15-37) U/L ALT (12-78) U/L Alkaline Phosphatase (45-117) U/L Ammonia (11-32) umol/L Total Creatine Kinase (39-308) U/L Troponin I (0-0.045) ng/ml NT-Pro-B Natriuret Pep (0-900) pg/ml Total Protein (6.4-8.2) gm/dl Albumin (3.4-5.0) gm/dl Globulin (2.5-4.0) gm/dl Albumin/Globulin Ratio (0.9-2) Procalcitonin (0-0.5) ng/ml TSH (0.300-4.500) uIu/ml Urine Color Yellow Urine Appearance Clear (Clear) Urine pH 6.0 (4.5-7.5) Ur Specific [place] 1.011 (1.000-1.030) Urine Protein Negative (Negative) Urine Glucose (UA) Negative (Negative) Urine Ketones Negative (Negative) Urine Blood Negative (Negative) Urine Nitrite Negative (Negative) Urine Bilirubin Negative (Negative) Urine Urobilinogen Negative (Negative) Ur Leukocyte Esterase Negative (Negative) Ethyl Alcohol mg/dL 12.0 H (0-3) mg/dl Diagnostic Findings CT HEAD - per STAT-rad - No intracranial hemorrhage or other acute intracranial abnormality. No mass lesion or mass effect. Global parenchymal volume loss with chronic microvascular ischemic changes. No calvarium or skull base fracture. Paranasal sinuses are clear. ECG Additional Comments: The study reveals NSR at 84bpm, normal axis, SA=702, QRS=74, GFm420, no acute ischemic changes. QT lengthened from prior study 01/16/19 - QTc at that time was 384 Code Status & VTE Plan Code Status FULL CODE VTE Prophylaxis Plan VTE Prophylaxis will be ordered: Yes PG Care Time/CCT Total # of Minutes Spent Total Time Spent with Patient: Total time spent is greater than 50% in coordination of care (as documented) at patient's floor/unit and/or counseling patient: (1) UTI (urinary tract infection) Urinary tract infection type: site unspecified Hematuria presence: without hematuria Qualified Code(s): N39.0 - Urinary tract infection, site not specified (2) Hyperlipidemia Hyperlipidemia type: unspecified Qualified Code(s): E78.5 - Hyperlipidemia, unspecified
[2019-01-25 00:50] LABS: Appearance Urine Clear (Clear); Bilirubin Urine Negative (Negative); Blood Urine Negative (Negative); Color Urine Yellow; Glucose Urine UA Negative (Negative); Ketones Urine Negative (Negative); Leukocyte Esterase Urine Negative (Negative); Nitrite Urine Negative (Negative); Protein Urine Negative (Negative); Specific Gravity Urine 1.011 (1.000-1.030); Urobilinogen Urine Negative (Negative)
[2019-01-25] MEDS ORDERED: LORazepam 1 MG/2 ML VIAL IV PRN (01:49)
[2019-01-25] MEDS ORDERED: ALBUT/IPRATROP 3MG/0.5MG NEB 3 ML VIAL NEB PRN (01:49)
[2019-01-25] MEDS ORDERED: ALUMINUM/MAGNESIUM SUSP 30 ML UDC PO PRN (01:49)
[2019-01-25] MEDS ORDERED: ALBUTEROL 0.5% NEB SOLN 2.5 MG/0.5 ML VIAL NEB PRN (01:49)
[2019-01-25 02:05] LABS: Lipase 74 U/L (73-393); Phosphorus 3.4 mg/dl (2.5-4.9)
[2019-01-25] MEDS: NSS + 20MEQ KCL 20 MEQ/1,000 ML BAG IV SCH ×2 (03:44→10:48)
[2019-01-25] MEDS: CEFEPIME 2,000 MG in SYRINGE 7.5 ML IV SCH ×3 (06:39→22:29)
[2019-01-25 08:51] LABS: Basophils # (auto) 0.02 K/uL (0-0.2); Basophils % (auto) 0.4 %; Eosinophils # (auto) 0.24 K/uL (0-0.5); Eosinophils % (auto) 4.6 %; Hematocrit (blood only) 27.1 % (42-52); Hemoglobin 9.1 g/dL (14.0-18.0); Immature Granulocytes # (auto) 0.01 K/uL (0.00-0.02); Immature Granulocytes % (auto) 0.2 %; Lymphocytes # (auto) 0.84 K/uL (1.2-3.4); Lymphocytes % (auto) 16.2 %; Mean Corpuscular Hemoglobin 31.1 pg (25-34); Mean Corpuscular Hgb Conc 33.6 g/dL (32-36); Mean Corpuscular Volume 92.5 fL (80-100); Mean Platelet Volume 8.7 fL (7.4-10.4); Monocytes # (auto) 0.64 K/uL (0.11-0.59); Monocytes % (auto) 12.3 %; Neutrophils # (auto) 3.45 K/uL (1.4-6.5); Neutrophils % (auto) 66.3 %; Platelet Count 210 K/uL (130-400); RDW Coefficient of Variation 13.7 % (11.5-14.5); Red Blood Count 2.93 M/uL (4.7-6.1)
[2019-01-25] MEDS: PREGABALIN 100 MG CAP PO SCH ×2 (08:54→20:20)
[2019-01-25] MEDS: FLUTICASONE/SALMETEROL (ADVAIR) 500/50 INH 14 PUFF INH SCH ×2 (08:54→20:18)
[2019-01-25] MEDS: VENLAFAXINE HCL XR 150 MG CAPXR PO SCH (08:55)
[2019-01-25] MEDS: GABAPENTIN 300 MG CAP PO SCH ×3 (08:55→20:17)
[2019-01-25] MEDS: THIAMINE HCL 100 MG TAB PO SCH (08:55)
[2019-01-25] MEDS: OXcarbazepine 150 MG TABLET PO SCH ×2 (08:56→20:17)
[2019-01-25] MEDS: FOLIC ACID 400 MCG TAB PO SCH (08:56)
[2019-01-25] MEDS: FERROUS FUMARATE/ASCORBIC ACID 65 MG CAPCR PO SCH (08:56)
[2019-01-25] MEDS ORDERED: VITAMIN B COMPLEX FOLIC ACID PO SCH (09:00)
--- NOTE | 2019-01-25 09:08 | XRay Report ---
XR cervical spine 2 or 3V CLINICAL HISTORY: trauma COMPARISON STUDY: Cervical spine CT January 10, 2018. FINDINGS: The inferior endplate of C6 and C7 are obscured on lateral projection. No fracture shown wi thin visualized portions of the cervical spine. Mild multilevel degenerative disc disease and facet a rthrosis is noted. IMPRESSION: 1. Obscuration of the inferior endplate of C6 and C7. No fracture within visualized portions of the c ervical spine. 2. Mild multilevel degenerative disc disease and facet arthrosis within the cervical spine. Electronically signed by: Chaitanya Srivastava M.D. 01/25/2019 9:07 AM
[2019-01-25 09:10] LABS: BUN Creatinine Ratio 13.1 (10-20); Creatinine Clr Calc Pharmacy 87.9 ml/min; Est GFR (African American) 103.3; Est GFR (Non-African American) 89.1; Potassium 3.6 mmol/L (3.5-5.1)
--- NOTE | 2019-01-25 09:53 | XRay Report ---
XR chest 1V portable CLINICAL HISTORY: syncope COMPARISON STUDY: Chest radiograph January 09, 2019. FINDINGS: Lung volumes are normal. Lungs are clear. There is no pneumothorax or pleural effusion. Car diac size is stable. Mediastinal contours are normal. There is no evidence for pulmonary edema. IMPRESSION: No acute cardiopulmonary findings. Electronically signed by: Chaitanya Srivastava M.D. 01/25/2019 9:52 AM
--- NOTE | 2019-01-25 09:58 | CT Scan Report ---
CT OF THE HEAD WITHOUT CONTRAST CLINICAL HISTORY: syncope/possible seizure/slurred speech (etoh) COMPARISON STUDY: Head CT January 09, 2019. CT DOSE: 998.18 mGy.cm TECHNIQUE: Helical axial images of the head were obtained without IV contrast. Automated exposure con trol was utilized for the study. A dose lowering technique was utilized adhering to the principles o f ALARA. FINDINGS: No acute intracranial hemorrhage, midline shift or mass effect is present. The ventricular system is stable. The basilar cisterns are patent. No extra-axial collections are present. There are no findings to suggest acute dural sinus thrombosis or acute territorial infarct. No significant calv arial abnormalities are present. Visualized portions of the sinuses and mastoid air cells are clear. White matter hypodensity suggests small vessel disease. IMPRESSION: No acute intracranial findings. Electronically signed by: Chaitanya Srivastava M.D. 01/25/2019 9:57 AM
[2019-01-25 10:31] LABS: BUN Creatinine Ratio 13.2 (10-20); Est GFR (African American) 100.1; Est GFR (Non-African American) 86.4; Potassium 3.5 mmol/L (3.5-5.1)
[2019-01-25 14:37] LABS: Creatinine Clr Calc Pharmacy 74.5 ml/min; Est GFR (African American) 85.3; Est GFR (Non-African American) 73.6; Potassium 3.9 mmol/L (3.5-5.1)
[2019-01-25 18:33] LABS: BUN Creatinine Ratio 11.5 (10-20); Calcium 8.2 mg/dl (8.5-10.1); Creatinine Clr Calc Pharmacy 75.2 ml/min; Est GFR (African American) 86.3; Est GFR (Non-African American) 74.5; Potassium 3.7 mmol/L (3.5-5.1)
[2019-01-25] MEDS: ATORVASTATIN 40 MG TAB PO SCH (20:17)
[2019-01-25 22:11] LABS: BUN Creatinine Ratio 12.7 (10-20); Creatinine Clr Calc Pharmacy 88.9 ml/min; Est GFR (African American) 103.7; Est GFR (Non-African American) 89.5; Potassium 3.7 mmol/L (3.5-5.1)
[2019-01-26] MEDS: CEFEPIME 2,000 MG in SYRINGE 7.5 ML IV SCH (06:22)
[2019-01-26 06:53] LABS: Basophils # (auto) 0.03 K/uL (0-0.2); Basophils % (auto) 0.6 %; Eosinophils # (auto) 0.15 K/uL (0-0.5); Eosinophils % (auto) 2.8 %; Hematocrit (blood only) 25.5 % (42-52); Hemoglobin 8.9 g/dL (14.0-18.0); Immature Granulocytes # (auto) 0.01 K/uL (0.00-0.02); Immature Granulocytes % (auto) 0.2 %; Lymphocytes # (auto) 0.74 K/uL (1.2-3.4); Lymphocytes % (auto) 13.7 %; Mean Corpuscular Hgb Conc 34.9 g/dL (32-36); Mean Corpuscular Volume 91.7 fL (80-100); Mean Platelet Volume 7.9 fL (7.4-10.4); Monocytes # (auto) 0.63 K/uL (0.11-0.59); Monocytes % (auto) 11.6 %; Neutrophils # (auto) 3.86 K/uL (1.4-6.5); Neutrophils % (auto) 71.1 %; Platelet Count 191 K/uL (130-400); RDW Coefficient of Variation 13.7 % (11.5-14.5); Red Blood Count 2.78 M/uL (4.7-6.1); White Blood Count 5.42 K/uL (4.8-10.8)
[2019-01-26 07:25] LABS: BUN Creatinine Ratio 12.1 (10-20); Creatinine Clr Calc Pharmacy 95.8 ml/min; Est GFR (African American) 106.8; Est GFR (Non-African American) 92.1; Potassium 3.7 mmol/L (3.5-5.1)
[2019-01-26] MEDS: VENLAFAXINE HCL XR 150 MG CAPXR PO SCH (08:54)
[2019-01-26] MEDS: FLUTICASONE/SALMETEROL (ADVAIR) 500/50 INH 14 PUFF INH SCH ×2 (08:54→20:39)
[2019-01-26] MEDS: FERROUS FUMARATE/ASCORBIC ACID 65 MG CAPCR PO SCH (08:55)
[2019-01-26] MEDS: GABAPENTIN 300 MG CAP PO SCH ×3 (08:55→20:39)
[2019-01-26] MEDS: THIAMINE HCL 100 MG TAB PO SCH (08:56)
[2019-01-26] MEDS: FOLIC ACID 400 MCG TAB PO SCH (08:58)
[2019-01-26] MEDS: OXcarbazepine 150 MG TABLET PO SCH ×2 (08:59→20:39)
[2019-01-26] MEDS: PREGABALIN 100 MG CAP PO SCH ×2 (09:03→20:39)
[2019-01-26] MEDS: cefTRIAXone SODIUM 2,000 MG in DEXTROSE 5% 50 ML IV SCH (14:40)
[2019-01-26] MEDS: SODIUM CHLORIDE 0.9% 1000ML 1,000 ML IV SCH (16:50)
[2019-01-26] MEDS: ATORVASTATIN 40 MG TAB PO SCH (20:39)
[2019-01-26] MEDS: MAGNESIUM OXIDE 400 MG TAB PO SCH (20:39)
--- NOTE | 2019-01-26 21:38 | Hospitalist Progress Note ---
Date of Service January 26, 2019 Assessment & Plan (1) Syncope and collapse: Patient with three episodes of syncope prior to arrival. He was mildly hypotensive in the ER. Poor PO intake. ?Orthostatic syncope vs dehydration vs cardiogenic. Patient with prolonged QT interval since being on Levaquin - now at 439 which is not significantly prolonged, however it has increased from prior study at 384 -Admit to PCU Likely from beer potomania and poor nutrtion. Will monitor. Patient does appear improved. He is saying that he wants to quit, but unsure if this is true. Did have discussion with about this problem. She is completely aware. will recommend AA meetings at discharge. (2) Bacteremia: Patient with Klebsiella bacteremia. Blood cultures from 01/09 positive for figueroa-sensitive Klebsiella. Cultures from 01/11 negative. Blood cultures have been sent today as well. Patient denies fevers, chills, malaise, nausea, vomiting. He does not have leukocytosis at present. He reports compliance with Levaquin. Overall it appears that his infection is being well treated with the levaquin - do not strongly feel that his presentation today is provider relations representative of sepsis or treatment failure. Would like to stop the Levaquin for now given the change in QT interval. He was given Zosyn in ER -Hold Levaquin -switched to ceftriaxone on 01/26 from cefepime -Consider ID consultation to secure outpatient antibiotic plan -Continue to monitor (3) UTI (urinary tract infection): +Klebsiella PNA. Presently afebrile, HD stable -Plan as above -This is pansensitive. switched to ceftriaxone (4) Hyponatremia: Na = 123 on admission. Patient appears to be clinically dry on physical exam. Hemoconcentrated, hypotensive, dry MM -NSS was given but then held once patient began to eat and sodium was improving. Improved, but returned to this number. will repeat on 01/27 after restarting IVF fluids (5) Hypomagnesemia: Magnesium x 1 gm administered in ER will recheck on 01/27 (6) Hypokalemia: repleted (7) Lymphedema: Chronic. -Elevate limbs -Hold Lasix for now (8) Essential hypertension: Blood pressure slightly low on arrival -Hold antihypertensive agents, Lisinopril and Metoprolol -Hold Lasix -Continue to monitor (9) Hyperlipidemia: Chronic. Stable -Continue Atorvastatin (10) Alcohol abuse: EtOH = 12. Patient reports drinking 5 beers daily. Has had withdrawal in the past. Presently showing no signs of withdrawal -Continue Folic Acid, Thiamine, B-vitamin -AWSS with PO Ativan -Closely monitior for withdrawal Currently no signs of withdrawal (11) COPD (chronic obstructive pulmonary disease): Chronic. Stable. No SOB. Mild scattered wheezing on exam -DuoNeb and Albuterol PRN -Continue Advair (12) Neuropathy: Chronic -Continue Gabapentin and Lyrica F/E/N - NSS, monitor electrolytes and replete as needed, AHA diet as tolerated Ppx - Low risk, recent head trauma, lymphedema - avoid chemoppx Code -Full Admitted Subjective Patient reports no new symptoms. He states he will quit drinking and understands that if he continues on this path he will continue to get sicker or worse. He does state though that he cannot quit smoking. He states normally at home he does not eat. Only drinks about 8-10 12 ounce cans of beer. Patient denies any nausea, vomiting, chest pain, abdominal pain.. He reports his appetite has improved while being the hospital Review of Systems Review of Systems: All systems reviewed & are unremarkable except as noted in HPI & below Physical Exam Physical Exam: General: NAD, chronically ill in appearance, AA&O to person, place and date Skin: warm, dry, intact, scattered bruising on bilateral forearms HEENT: facial bones stable, + posterior occipital tenderness, no cervical spine tenderness, PERRL, EOMI, anicteric sclera, conjunctiva without injection, ext ernal ear normal to inspection and nontender, TM pearly, nares patent, dry mucus membranes, dentition intact, no oropharyngeal lesions, neck supple, trachea midline, no LAD, no thyromegaly, no JVD Heart: +S1/S2, regular, no m/r/g Lungs: equal air entry bilaterally, no rales/rhonchi/wheezes Abd: +BS, soft, ND,NT,, no masses/organomegaly/ascites Ext: warm, 2+ pulses in UE/LE bilaterally, no clubbing/cyanosis, 2+ pitting edema bilaterally Neuro: nonfocal, patient AA&O x 4,\ no facial droop, moving all extremities on command with equal strength 5/5 Results & Data Vital Signs (Past 12 Hours) Vital Signs Temp Pulse Resp BP BP Pulse Ox 01/26/19 19:14 36.4 C L 99 H 18 118/71 93 01/26/19 15:12 37.3 C 97 H 20 116/70 97 01/26/19 11:46 37.1 C 94 H 18 121/70 96 PG Care Time/CCT Total # of Minutes Spent Total Time Spent with Patient: Total time spent is greater than 50% in coordination of care (as documented) at patient's floor/unit and/or counseling patient: (1) UTI (urinary tract infection) Hematuria presence: without hematuria Urinary tract infection type: site unspecified Qualified Code(s): N39.0 - Urinary tract infection, site not specified (2) Hyperlipidemia Hyperlipidemia type: unspecified Qualified Code(s): E78.5 - Hyperlipidemia, unspecified
[2019-01-27] MEDS: SODIUM CHLORIDE 0.9% 1000ML 1,000 ML IV SCH (05:37)
[2019-01-27 07:08] LABS: Hematocrit (blood only) 28.7 % (42-52); Hemoglobin 9.7 g/dL (14.0-18.0); Mean Corpuscular Hemoglobin 31.6 pg (25-34); Mean Corpuscular Hgb Conc 33.8 g/dL (32-36); Mean Corpuscular Volume 93.5 fL (80-100); Platelet Count 182 K/uL (130-400); RDW Standard Deviation 47.7 fL (36.4-46.3); Red Blood Count 3.07 M/uL (4.7-6.1); White Blood Count 4.09 K/uL (4.8-10.8)
[2019-01-27 07:48] LABS: BUN Creatinine Ratio 11.6 (10-20); Calcium 8.5 mg/dl (8.5-10.1); Creatinine Clr Calc Pharmacy 116.5 ml/min; Est GFR (African American) 116.8; Est GFR (Non-African American) 100.7; Magnesium 1.9 mg/dl (1.8-2.4); Phosphorus 2.7 mg/dl (2.5-4.9); Potassium 4.1 mmol/L (3.5-5.1)
[2019-01-27] MEDS: OXcarbazepine 150 MG TABLET PO SCH ×2 (08:19→20:48)
[2019-01-27] MEDS: FOLIC ACID 400 MCG TAB PO SCH (08:19)
[2019-01-27] MEDS: THIAMINE HCL 100 MG TAB PO SCH (08:19)
[2019-01-27] MEDS: FERROUS FUMARATE/ASCORBIC ACID 65 MG CAPCR PO SCH (08:19)
[2019-01-27] MEDS: FLUTICASONE/SALMETEROL (ADVAIR) 500/50 INH 14 PUFF INH SCH ×2 (08:19→20:47)
[2019-01-27] MEDS: VENLAFAXINE HCL XR 150 MG CAPXR PO SCH (08:20)
[2019-01-27] MEDS: GABAPENTIN 300 MG CAP PO SCH ×2 (08:20→14:12)
[2019-01-27] MEDS: MAGNESIUM OXIDE 400 MG TAB PO SCH ×2 (08:20→20:47)
[2019-01-27] MEDS: PREGABALIN 100 MG CAP PO SCH ×2 (08:23→20:53)
[2019-01-27] MEDS: ACETAMINOPHEN 325 MG TAB PO PRN (11:20)
[2019-01-27] MEDS: cefTRIAXone SODIUM 2,000 MG in DEXTROSE 5% 50 ML IV SCH (14:10)
--- NOTE | 2019-01-27 15:33 | Hospitalist Progress Note ---
Date of Service January 27, 2019 Assessment & Plan (1) Syncope and collapse: Patient with three episodes of syncope prior to arrival. Hypotensive in the ER suspect secondary to antihypertensives when added to alcohol use. Poor PO intake. However given minimal ethanol level, hyponatremia and urine specific gravity would try to capture an event with outpatient monitor if we cannot do this while inpatient ?possible atrial fibrillation... I am not concerned about QTc from Levaquin therefore will restart this as do not feel he has experienced treatment failure. No arrhythmias on telemetry. Very difficult to diagnose anything else while he is still drinking alcohol making intoxication and dehydration the most likely diagnosis, ethanol 12.0 on admission. His reports these episodes have happened repeatedly since 2014 when he was diagnosed with osteomyelitis, usually once/month. On last occasion appears to be related to bladder/prostate infection PT/OT evals ordered. I am concerned about Wernicke's encephalopathy over the last few months as per his 's description of worsening balance and eye problems (diplopia on exam). However this has been questioned in the past (prior normal thiamine levels in 2014) and would think it prudent to get thiamine levels prior to treating this subacute issue and do not feel this is the reason for his current syncopal admission. (2) Bacteremia: Patient with recent history of Klebsiella bacteremia. Now blood cultures negative. 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 However on the face of it appears Klebsiella from UTI given concurrent positive culture at the same time although some concern of cellulitis from progress notes. ESR/CRP pending for the morning. Switched back to levaquin as not concerned about QTc. (3) UTI (urinary tract infection): +Klebsiella pneumoniae. Presently afebrile. -Plan as above -This is pansensitive. - switched back to levaquin as not concerned about treatment failure (4) Hyponatremia: Na = 123 on admission. Patient appears to be clinically dry on physical exam. Now euvolemic. Improved with IV NSS. Will discontinue and monitor for progression. (5) Hypomagnesemia: Resolved with Mg oxide BID dosing (6) Hypokalemia: repleted (7) Lymphedema: Chronic. -Elevate limbs -Hold Lasix for now (8) Essential hypertension: Blood pressure slightly low on arrival -Hold antihypertensive agents, Lisinopril and Metoprolol -Hold Lasix -Continue to monitor (9) Hyperlipidemia: Chronic. Stable -Continue Atorvastatin (10) Alcohol abuse: EtOH = 12. Patient reports drinking 5 beers daily. Has had withdrawal in the past. Presently showing no signs of withdrawal -Continue Folic Acid, Thiamine, B-vitamin -AWSS with PO Ativan -Closely monitior for withdrawal Currently no signs of withdrawal (11) COPD (chronic obstructive pulmonary disease): Chronic. Stable. No SOB. Wheeze appears to have resolved. -DuoNeb and Albuterol PRN -Continue Advair (12) Neuropathy: - unclear why he is on lyrica and gabapentin. His will bring in medications and go over everything tomorrow. ?contributing towards ataxia/dizziness. (13) DVT prophylaxis: SCDs (14) Discharge planning issues: PT/OT consulted Subjective Patient in bed complaining of headache, reports history of migraines, generalized ache all over his head without aura, not pulsating, recurrent for years. He notes acetaminophen does not work for him. He is prescribed a medication for headaches which works but he is unsure of the name of it (unclear from his home medication list what this medication is). He is unclear about any of his medications or really what happened to cause his to need to come back to hospital. Tells me I should speak to his regarding events and medications. Revisited recent history with patient and his over the phone. His reports concern for decline of his balance and eye sight over months although she is concerned it is continuing to get worse. However since recent discharge he had a progressive decline in mobility, weakness and leg swelling. He continued to drink at home. Prior to losing consciousness he was complaining of feeling lightheaded and dizzy. She is concerned about a stroke or seizure although he was lying unresponsive on the ground without any abnormal movements. She notes no unilateral weakness prior or after his syncopal event. Other history: Neuro - diagnosed with alcohol-induced peripheral neuropathy and sensory ataxia under Dr Contreras ID - Hx Bacteremia with vertebral osteomyelitis (enterococcus) associated with right psoas abscess in October 2014. reports general decline since then although was always drinking excess alcohol. Rx with daptomycin. More recently diagnosed with Klebsiella bacteremia (now blood sterile on Levaquin), suspected from urine given concurrent positive urine culture. Review of Systems Review of Systems: All systems reviewed & are unremarkable except as noted in HPI & below Physical Exam Constitutional: well developed and + acute distress (headache); + not well nourished Eyes: + anicteric sclerae and PERRL; + EOM not intact (diplopia, resolves with unilateral vision, worse with right lateral gaze) ENMT: external ear and nose normal, oropharynx normal Neck: normal visual inspection and trachea midline Respiratory: normal respiratory effort; no respiratory distress, no labored breathing, no retractions and does not use accessory muscles Auscultation: lungs clear to auscultation bilaterally; no diminished lung sounds, no crackles, no rales and no wheezes Cardiovascular: Rate/Rhythm: regular rate and regular rhythm Heart Sounds: normal S1 and normal S2; no murmur Vessels: no JVD Extremities: + pedal edema (2+ b/l equal, no cellulitis (erythema or warmth)) Gastrointestinal (Abdomen): Inspection/Auscultation: normal bowel sounds; abdomen not distended Percussion/Palpation: abdomen soft; abdomen nontender, no guarding and abdomen not rigid Musculoskeletal: no cyanosis or clubbing, extremities motor strength 5/5 (grossly normal strength in all 4 limbs, limited exam due to pt cooporation) Skin: + dry skin (Peeling present on legs bilaterally) Neurologic: awake; no focal motor deficits and not confused Speech / Cognition: normal speech Motor/Sensory: no tremor, no pronator drift and no sensory deficit Cranial Nerves: PERRL, normal facial strength and able to elevate shoulders bilaterally Psychiatric: Orientation: alert and oriented x 3 Eye Contact: + poor eye contact Motor Behavior: no psychomotor agitation and no psychomotor retardation Results & Data Vital Signs (Past 12 Hours) Vital Signs Temp Pulse Resp BP BP Pulse Ox 01/27/19 15:00 97.7 F 98 H 18 129/75 97 01/27/19 14:10 93 01/27/19 11:04 97.5 F L 91 H 19 136/84 95 01/27/19 07:50 97.7 F 83 18 136/81 97 01/27/19 06:51 97.3 F L 79 20 126/81 98 01/27/19 04:09 98.1 F 81 18 131/82 99 PG Care Time/CCT Total # of Minutes Spent Total Time Spent with Patient: Total time spent is greater than 50% in coordina tion of care (as documented) at patient's floor/unit and/or counseling patient: (1) UTI (urinary tract infection) Hematuria presence: without hematuria Urinary tract infection type: site unspecified Qualified Code(s): N39.0 - Urinary tract infection, site not specified (2) Hyperlipidemia Hyperlipidemia type: unspecified Qualified Code(s): E78.5 - Hyperlipidemia, unspecified
[2019-01-27] MEDS ORDERED: COUGH DROP (SUGAR FREE) LOZ 24 LOZ/1 BOX BUCCAL PRN (20:41)
[2019-01-27] MEDS: SODIUM CHLORIDE 1 GM TABLET PO SCH (20:45)
[2019-01-27] MEDS: GABAPENTIN 100 MG CAP PO SCH (20:46)
[2019-01-27] MEDS: ATORVASTATIN 40 MG TAB PO SCH (20:47)
[2019-01-28] MEDS: ACETAMINOPHEN 325 MG TAB PO PRN (05:51)
[2019-01-28 07:27] LABS: Basophils # (auto) 0.06 K/uL (0-0.2); Basophils % (auto) 1.2 %; Eosinophils # (auto) 0.28 K/uL (0-0.5); Eosinophils % (auto) 5.8 %; Hematocrit (blood only) 27.9 % (42-52); Hemoglobin 9.7 g/dL (14.0-18.0); Immature Granulocytes # (auto) 0.01 K/uL (0.00-0.02); Immature Granulocytes % (auto) 0.2 %; Lymphocytes # (auto) 0.92 K/uL (1.2-3.4); Mean Corpuscular Hemoglobin 31.8 pg (25-34); Mean Corpuscular Hgb Conc 34.8 g/dL (32-36); Mean Corpuscular Volume 91.5 fL (80-100); Mean Platelet Volume 7.8 fL (7.4-10.4); Monocytes # (auto) 0.65 K/uL (0.11-0.59); Monocytes % (auto) 13.4 %; Neutrophils # (auto) 2.92 K/uL (1.4-6.5); Neutrophils % (auto) 60.4 %; Platelet Count 205 K/uL (130-400); RDW Standard Deviation 46.4 fL (36.4-46.3); Red Blood Count 3.05 M/uL (4.7-6.1); White Blood Count 4.84 K/uL (4.8-10.8)
[2019-01-28 08:03] LABS: BUN Creatinine Ratio 14.8 (10-20); C Reactive Protein 1.32 mg/dl (0-0.29); Calcium 8.7 mg/dl (8.5-10.1); Creatinine Clr Calc Pharmacy 132.5 ml/min; Est GFR (African American) 123.1; Est GFR (Non-African American) 106.2
[2019-01-28 08:06] LABS: Albumin Globulin Ratio 0.9 (0.9-2); Bilirubin,Total 0.3 mg/dl (0.2-1); Globulin 3.4 gm/dl (2.5-4.0); Total Protein 6.4 gm/dl (6.4-8.2)
[2019-01-28] MEDS: FLUTICASONE/SALMETEROL (ADVAIR) 500/50 INH 14 PUFF INH SCH ×2 (09:52→20:40)
[2019-01-28] MEDS: TAMSULOSIN HCL 0.4 MG CAP PO SCH (09:52)
[2019-01-28] MEDS: FOLIC ACID 400 MCG TAB PO SCH (09:53)
[2019-01-28] MEDS: FERROUS FUMARATE/ASCORBIC ACID 65 MG CAPCR PO SCH (09:53)
[2019-01-28] MEDS: SODIUM CHLORIDE 1 GM TABLET PO SCH (09:53)
[2019-01-28] MEDS: MAGNESIUM OXIDE 400 MG TAB PO SCH ×2 (09:53→20:41)
[2019-01-28] MEDS: VENLAFAXINE HCL XR 150 MG CAPXR PO SCH (09:53)
[2019-01-28] MEDS: OXcarbazepine 150 MG TABLET PO SCH ×2 (09:53→20:40)
[2019-01-28] MEDS: THIAMINE HCL 100 MG TAB PO SCH (09:53)
[2019-01-28] MEDS: GABAPENTIN 100 MG CAP PO SCH ×3 (09:54→20:42)
[2019-01-28] MEDS: THIAMINE HCL 200 MG in SODIUM CHLORIDE 0.9% 50 ML IV SCH ×3 (09:55→20:38)
[2019-01-28] MEDS: PREGABALIN 100 MG CAP PO SCH ×2 (10:06→20:44)
[2019-01-28] MEDS ORDERED: SUMAtriptan succinate 50 MG TAB PO STA (10:44)
[2019-01-28] MEDS ORDERED: levoFLOXacin 750 MG TAB PO SCH (11:00)
--- NOTE | 2019-01-28 11:12 | Infectious Disease Consult ---
Date of Consultation January 28, 2019 Assessment & Plan (1) Chronic prostatitis: 68-year-old male admitted with syncopal episode, with recent Klebsiella bacteremia likely from urinary tract source, likely chronic prostatitis. Agree that additional oral antibiotics for at least several more weeks, and as isolate is sensitive to Bactrim, will use Bactrim twice daily for at least 2-4 more weeks. Will follow. (2) Klebsiella pneumoniae infection: History of Present Illness Reason for Consultation: Prior Klebsiella bacteremia, history of osteomyelitis of the lumbar spine Attending Physician: Kannan Shah MD History of Present Illness 68-year-old male with history of BPH, hypertension, COPD, tobacco abuse, alcohol abuse, admitted earlier this month with Klebsiella bacteremia thought to be due to prostate infection, treated with IV antibiotics and discharged on levofloxacin for a 3-week course. Patient was readmitted yesterday after several syncopal episodes. He was found to have prolonged QT interval on his echocardiogram. Undergoing work-up for syncope, and asked to evaluate ongoing treatment for his infection. He has had no significant urinary symptoms recently, no report of fever or chills, does have some left-sided suprapubic discomfort. No change in the quality of his urine, no flank pain, no other new specific complaints. Allergies Allergy/AdvReac Type Severity Reaction Status Date / Time No Known Allergies Allergy Verified 01/24/19 22:54 Home Medications Home Medications Medication Instructions Recorded Confirmed Type gabapentin 100 mg capsule 300 mg PO TID #180 cap 11/19/18 01/24/19 History pregabalin 100 mg capsule 100 mg PO BID #60 cap 12/04/18 01/24/19 History metoprolol succinate ER 25 mg 25 mg PO DAILY 12/06/18 01/24/19 History tablet,extended release 24 hr metoprolol succinate ER 50 mg 50 mg PO DAILY #30 tab 12/06/18 01/24/19 History tablet,extended release 24 hr albuterol sulfate HFA 90 1 - 2 puff INHALATION Q4H PRN #18 12/13/18 01/24/19 Rx mcg/actuation aerosol inhaler gm atorvastatin 40 mg tablet 40 mg PO HS 12/13/18 01/24/19 History folic acid 400 mcg tablet 0.4 mg PO DAILY 12/13/18 01/24/19 History lisinopril 10 mg tablet 10 mg PO DAILY 12/13/18 01/24/19 History oxcarbazepine 300 mg tablet 300 mg PO BID 12/13/18 01/24/19 History venlafaxine ER 150 mg 150 mg PO DAILY 12/13/18 01/24/19 History capsule,extended release 24 hr vitamin B complex-folic acid 2,000 1 cap PO DAILY 12/13/18 01/24/19 History mcg capsule fluticasone propion-salmeterol 1 inh INHALATION DIRECTED 01/10/19 01/24/19 History [Advair Diskus] ferrous fumarate-vitamin C 1 tab PO DAILY #30 tab 01/21/19 01/24/19 Rx [Mariola-Sequels (iron-vit c)] levofloxacin 750 mg PO DAILY@1100 #11 tab 01/21/19 01/24/19 Rx thiamine HCl (vitamin B1) [Vitamin 100 mg PO QAM #30 tab 01/21/19 01/24/19 Rx B-1] furosemide 20 mg PO BID 01/24/19 01/24/19 History Patient History Medical History Face lacerations (Acute) Neuropathy (Chronic) Hypertension (Chronic) Alcohol abuse (Chronic) COPD (chronic obstructive pulmonary disease) (Chronic) Anemia (Acute) Tremor Gross hematuria H/O tooth extraction Lower teeth on 04/23/2018 Hyperlipidemia Slowing of urinary stream Surgical History S/P foot surgery Family History Father Hypertension Aneurysm Mother Swelling Uncle Myocardial infarction Other No significant family history Social History Preferred Language: Chinese Communication Ability: Effective Visual Impairment: Limited Hearing Ability: Normal Consultant Required: No Beliefs That Will Affect Care: None marital status: Current Living Situation: Spouse current occupational status: retired Other Information That Helps Us Care for You: No Feels Safe at Home: Yes Safety Concerns: Feels Safe At This Time Smoking Status: Former smoker Tobacco Type: cigarettes ; Age Started Using Tobacco: 14 ; Age Quit Using Tobacco: 68 ; packs per day: 1 ; Cigarettes Per Day: 10 ; Second Hand Exposure: No ; Hx Alcohol Use: Yes Alcohol type: beer Alcohol Intake Frequency Comment: 8+ per day Hx Substance Use: No Childhood Exposure to Second-Hand Smoke: Yes Dental Care, Regularly: No Physical Activity Frequency: Does not Exercise Seatbelt Use: always Sunscreen Use: No Review of Systems Review of Systems: All systems reviewed & are unremarkable except as noted in HPI & below Physical Exam Constitutional: WD/WN, vitals as above comfortable; no acute distress Eyes: PERRL, conjunctivae normal, anicteric sclerae ENMT: external ear and nose normal, oropharynx normal Neck: trachea midline, no thyromegaly neck nontender Respiratory: normal respiratory effort, lungs clear to auscultation normal percussion; does not use accessory muscles Cardiovascular: Rate/Rhythm: regular rate and regular rhythm Heart Sounds: normal S1 and normal S2; no gallop, no murmur and no cardiac rub Vessels: normal peripheral pulses; no JVD Gastrointestinal (Abdomen): normal bowel sounds, soft, nontender, no hepatosplenomegaly Musculoskeletal: no cyanosis or clubbing, extremities motor strength 5/5 Spine: thoracic spine normal to inspection and lumbar spine normal to inspecti on; no cervical spinal tenderness Skin: no rashes, warm and dry normal turgor; no lesions Neurologic: patellar DTR's 2+ bilat, sensation intact no focal motor deficits Psychiatric: A+Ox3, euthymic affect Orientation: cooperative Lymphatic: no cervical or axillary lymphadenopathy no inguinal lymphadenopathy Results & Data Vital Signs (Past 12 Hours) Vital Signs Temp Pulse Pulse Resp BP BP Pulse Ox 01/28/19 07:39 86 01/28/19 07:16 36.5 C 77 20 120/76 98 01/28/19 03:57 36.7 C 82 20 121/76 97 01/28/19 00:10 88 01/27/19 23:49 36.7 C 100 H 20 134/80 96 Laboratory Results Short CBC 01/28/19 Range/Units 07:07 WBC 4.84 (4.8-10.8) K/uL Hgb 9.7 L (14.0-18.0) g/dL Hct 27.9 L (42-52) % Plt Count 205 (130-400) K/uL BMP 01/28/19 07:07 Sodium 124 L Potassium 4.0 Chloride 89 L Carbon Dioxide 30 BUN 9 Creatinine 0.58 L Glucose 85 Calcium 8.7 Liver Function 01/28/19 Range/Units 07:07 Total Bilirubin 0.3 (0.2-1) mg/dl AST 27 (15-37) U/L ALT 29 (12-78) U/L Alkaline Phosphatase 78 (45-117) U/L Albumin 3.0 L (3.4-5.0) gm/dl Diagnostic Findings Microbiology 01/24/19 22:34 Blood Aerobic Blood Culture - Preliminary No growth in Aerobic bottle after 48 hours. 01/24/19 22:34 Blood Anaerobic Blood Culture - Preliminary No growth in Anaerobic bottle after 48 hours. 01/24/19 22:39 Blood Aerobic Blood Culture - Preliminary No growth in Aerobic bottle after 48 hours. 01/24/19 22:39 Blood Anaerobic Blood Culture - Preliminary No growth in Anaerobic bottle after [address] OF THE HEAD WITHOUT CONTRAST CLINICAL HISTORY: syncope/possible seizure/slurred speech (etoh) COMPARISON STUDY: Head CT January 09, 2019. CT DOSE: 998.18 mGy.cm TECHNIQUE: Helical axial images of the head were obtained without IV contrast. Automated exposure control was utilized for the study. A dose lowering technique was utilized adhering to the principles of ALARA. FINDINGS: No acute intracranial hemorrhage, midline shift or mass effect is present. The ventricular system is stable. The basilar cisterns are patent. No extra-axial collections are present. There are no findings to suggest acute dural sinus thrombosis or acute territorial infarct. No significant calvarial abnormalities are present. Visualized portions of the sinuses and mastoid air cells are clear. White matter hypodensity suggests small vessel disease. IMPRESSION: No acute intracranial findings. Electronically signed by: Chaitanya Srivastava M.D. 01/25/2019 9:57 AM PG Care Time/CCT Total # of Minutes Spent Total Time Spent with Patient: Total time spent is greater than 50% in coordination of care (as documented) at patient's floor/unit and/or counseling patient:
--- NOTE | 2019-01-28 12:56 | XRay Report ---
XR orbits for MRI HISTORY: pre-MRI screening. COMPARISON: None. FINDINGS: There are no radiopaque foreign bodies identified within the orbits. IMPRESSION: No radiopaque foreign bodies identified within the orbits. The above report was generated using voice recognition software. It may contain grammatical, syntax or spelling errors. Electronically signed by: Jagdish Rehman M.D. 01/28/2019 12:55 PM
[2019-01-28] MEDS ORDERED: GADOBUTROL 65ML VIAL IV PRN (14:24)
--- NOTE | 2019-01-28 14:41 | Magnetic Resonance Report ---
MR brain wo/w con HISTORY: 68 years-old Male diplopia, ?brainstem infarct acute double vision with concern for acute i nfarct. Acute headache. COMPARISON: CT head 01/24/2019, Brain MRI 12/25/2014 TECHNIQUE: Multiplanar multisequence MRI of the brain was obtained both with and without the use of 8 .5 mL Gadavist FINDINGS: Large [id number] taker away localizer images demonstrate no gross extracranial abnormality. There is no restricted diffusion to suggest acute or subacute infarction. Artifact from surgical clips of the an terior midline scalp redemonstrated with associated artifact mildly limiting the study. There are a f ew scattered subcentimeter pulmonary noted about the falx cerebri. Corpus callosum, brainstem, optic chiasm, and pituitary gland appear unremarkable the sagittal T1 series. 4 mm pineal gland cyst incide ntally noted. Degenerative changes are seen about the imaged cervical spine. Age-related involutional changes. No acute intracranial hemorrhage, midline shift, abnormal extra axi al collection, hydrocephalus or intracranial mass. Mild degree of patchy T2/FLAIR hyperintensities ab out the white matter just above mild chronic microvascular ischemic disease. There is no abnormal int ra-axial or extra-axial enhancement identified. Major flow voids at the level the skull base appear t o be patent. Trace right mastoid effusion. Right gilbert bullosa. Mild mucosal thickening of the nasal turbinates and ethmoid air cells. Orbits, skull and soft tissues are unremarkable. IMPRESSION: 1. No acute intracranial abnormality, specifically no acute or subacute infarction. 2. No abnormal enhancement. The above report was generated using voice recognition software. It may contain grammatical, syntax o r spelling errors. Electronically signed by: Jim Portillo M.D. 01/28/2019 2:39 PM
--- NOTE | 2019-01-28 17:54 | Hospitalist Progress Note ---
Date of Service January 28, 2019 Assessment & Plan (1) Syncope and collapse: Appears due to chlorthalidone after going through patient's home medications. Although he has not been prescribed this for some time his reports he was taking all the medications she brought in. Suspect combined with lasix, lisinopril and alcohol this caused his hypotension and syncopal episode. Will restart home dose of metoprolol given this information. (2) Wernicke encephalopathy: Ophthalmoplegia with gait ataxia. Suspect more chronic from history but I believe warrants trial of reversal using IV thiamine for 2 days especially since now requiring a walker at home instead of cane suggesting some more recent progression. If no real clinical improvement will continue on high dose thiamine as outpatient and follow up with PCP regarding actual B1 level. - B1 level pending (taken prior to IV dosing of thiamine) - IV thiamine 200mg TID - follow up ophthalmology as outpatient (3) Bacteremia: Given complex history of osteomyelitis/discitis/psoas abscess and questionable cellulitis/prostatitis diagnosis on last admission ID consult placed. Present on last admission. Klebsiella pneumoniae secondary to prostatitis. Now blood is sterile. I do not suspect this lead to current admission and does not appear to be treatment failure of Levaquin. Appreciate ID consult - switched to Bactrim (4) Hyponatremia: Supposed to be on NaCl tablets as per last nephrology note however dose not appear to be on home medications list. Suspected chronic from alcohol use but not helped if taking chlorthalidone when not prescribed in addition to lasix. Na decreased again after stopping IV fluids. Restarted NaCl tablets today (5) Hypomagnesemia: 10/28 Mg 1.9. Repeat Q2D (6) Hypokalemia: Consistent with chlorthalidone use Now resolved (7) Chronic venous stasis: Chronic - recommend against diuretic use. Suspect increased swelling due to cellulitis on prior admission. reports they are currently improved. US for DVT negative on last admission. - Elevate limbs - SREE hose - consider fitted compression stockings as outpatient (8) Essential hypertension: Restart metoprolol as above. Will continue to hold lasix and lisinopril Will need orthostatics prior to discharge (9) Hyperlipidemia: Continue home med atorvastatin (10) Alcohol abuse: EtOH = 12. Patient reports drinking 5 beers daily. - No sign of withdrawal throughout admission, not required any Ativan dosing. (11) COPD (chronic obstructive pulmonary disease): Chronic. No acute exacerbation. 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 Planned to wean off gabapentin and increase Lyrica (should only be taking 200mg TID gabapentin, changed) (13) Migraine: Imitrex PRN - took away headache today (14) DVT prophylaxis: Lovenox 40mg SQ daily added Subjective No acute events overnight. Patient seen still with headache in AM. brought in his medications and he is prescribed Imitrex for migraines therefore this was prescribed (I am unsure why this didn't appear on his home med list). In addition she notes he was taking chlorthalidone which was not recently prescribed. Suspect therefore this largely contributed towards his current syncopal event. She confirms history of patient complaining about his vision for about the last year but worse in last month. Not been seen by an zoo veterinarian for approximately 2 years. No prior MRI known by patient or his during that time and none available on current EHR therefore this was ordered to r/o brainstem lesion as cause of his ophthalmoplegia and nystagmus - subsequently negative. After taking the Imitrex the patient's headache resolved. He felt much relieved since the cause of his syncope appears much clearer now. Had blood pressure drop with PT yesterday but was asymptomatic with this. Continues to express desire to return home rather than physical rehabilitation on discharge. Review of Systems Review of Systems: All systems reviewed & are unremarkable except as noted in HPI & below Physical Exam Constitutional: well developed and comfortable; + not well nourished and no acute distress Eyes: + anicteric sclerae and + nystagmus (b/l on lateral gaze); + EOM not intact (diplopia, resolves with one eye) ENMT: external ear and nose normal, oropharynx normal Neck: normal visual inspection and trachea midline Respiratory: normal respiratory effort; no respiratory distress, no labored breathing, no retractions and does not use accessory muscles Auscultation: lungs clear to auscultation bilaterally; no diminished lung sounds, no crackles, no rales and no wheezes Cardiovascular: Rate/Rhythm: regular rate and regular rhythm Heart Sounds: normal S1 and normal S2; no murmur Vessels: normal peripheral pulses; no JVD Extremities: + pedal edema (2+ b/l equal) Gastrointestinal (Abdomen): Inspection/Auscultation: normal bowel sounds; abdomen not distended Percussion/Palpation: abdomen soft; abdomen nontender, no guarding and abdomen not rigid Musculoskeletal: no cyanosis or clubbing, extremities motor strength 5/5 (no foot drop) Skin: + dry skin skin peeling on leg with prior cellulitis infection occurred, no current erythema or warmth Neurologic: awake; + CN's not intact (see eye exam above), no focal motor deficits and not confused Speech / Cognition: normal speech Motor/Sensory: + sensory deficit (stocking distribution numbness in toes); no tremor and no pronator drift Coordination: + abnormal [id number] test (b/l equal) Psychiatric: A+Ox3, euthymic affect Orientation: cooperative Lymphatic: no cervical or axillary lymphadenopathy no inguinal lymphadenopathy Results & Data Vital Signs (Past 12 Hours) Vital Signs Temp Pulse Pulse Resp BP Pulse Ox 01/28/19 16:00 98.1 F 94 H 18 127/82 94 01/28/19 11:19 97.5 F L 84 16 123/81 99 01/28/19 07:39 86 01/28/19 07:16 97.7 F 77 20 120/76 98 PG Care Time/CCT Total # of Minutes Spent Total Time Spent with Patient: Total time spent is greater than 50% in coordination of care (as documented) at patient's floor/unit and/or counseling patient: (1) Hyperlipidemia Hyperlipidemia type: unspecified Qualified Code(s): E78.5 - Hyperlipidemia, unspecified (2) Peripheral neuropathy Peripheral neuropathy type: polyneuropathy, unspecified Qualified Code(s): G62.9 - Polyneuropathy, unspecified (3) Migraine Migraine type: unspecified Status migrainosus presence: without status migrainosus Intractability: not intractable Qualified Code(s): G43.909 - Migraine, unspecified, not intractable, without status migrainosus
[2019-01-28] MEDS: SULFAMETHOXAZOLE/TRIMETHOPRIM DS 800/160MG TAB PO SCH (20:40)
[2019-01-28] MEDS: ATORVASTATIN 40 MG TAB PO SCH (20:43)
[2019-01-29] MEDS: SUMAtriptan succinate 50 MG TAB PO PRN (00:47)
[2019-01-29 07:54] LABS: BUN Creatinine Ratio 10.1 (10-20); Creatinine Clr Calc Pharmacy 112.8 ml/min; Est GFR (African American) 115.3; Est GFR (Non-African American) 99.5; Potassium 4.3 mmol/L (3.5-5.1)
[2019-01-29] MEDS: FERROUS FUMARATE/ASCORBIC ACID 65 MG CAPCR PO SCH (08:01)
[2019-01-29] MEDS: ENOXAPARIN INJ 40 MG/0.4 ML SYR SQ SCH (08:01)
[2019-01-29] MEDS: VENLAFAXINE HCL XR 150 MG CAPXR PO SCH (08:01)
[2019-01-29] MEDS: FOLIC ACID 400 MCG TAB PO SCH (08:01)
[2019-01-29] MEDS: TAMSULOSIN HCL 0.4 MG CAP PO SCH (08:01)
[2019-01-29] MEDS: PREGABALIN 100 MG CAP PO SCH ×2 (08:01→22:30)
[2019-01-29] MEDS: GABAPENTIN 100 MG CAP PO SCH ×3 (08:02→22:23)
[2019-01-29] MEDS: METOPROLOL SUCC 50MG EXT REL TAB PO SCH (08:02)
[2019-01-29] MEDS: MAGNESIUM OXIDE 400 MG TAB PO SCH (08:02)
[2019-01-29] MEDS: SODIUM CHLORIDE 1 GM TABLET PO SCH (08:02)
[2019-01-29] MEDS: THIAMINE HCL 100 MG TAB PO SCH (08:02)
[2019-01-29] MEDS: SULFAMETHOXAZOLE/TRIMETHOPRIM DS 800/160MG TAB PO SCH ×2 (08:02→22:23)
[2019-01-29] MEDS: OXcarbazepine 150 MG TABLET PO SCH ×2 (08:02→22:22)
[2019-01-29] MEDS: THIAMINE HCL 200 MG in SODIUM CHLORIDE 0.9% 50 ML IV SCH ×3 (08:02→22:33)
--- NOTE | 2019-01-29 09:57 | Hospitalist Progress Note ---
Date of Service January 29, 2019 Assessment & Plan (1) Syncope and collapse: Major contributor appears due to chlorthalidone after going through patient's home medications yesterday with his . Although he has not been prescribed this for some time his reports he was taking all the medications she brought in. Suspect combined with lasix, lisinopril and alcohol this caused his hypotensive and syncopal episode. Restarted on home dose of metoprolol. Will continue to wean off gabapentin as per neurology outpatient plan as may be affecting his gait as taking this in addition to Pregabalin (2) Wernicke encephalopathy: Ophthalmoplegia with gait ataxia. Suspect more chronic from history warrants trial to reverse symptoms as much as possible with IV treatment given acute deterioration of needing walker to get around rather than cane - B1 level unfortunately cancelled as not protected from light after it was taken and would be falsely elevated currently as started on IV thiamine. Consider repeating in 1 month as outpatient. - IV thiamine 200mg TID started 01/28, if no improvement by tomorrows exam can be switched to PO and plan for discharge - follow up ophthalmology as outpatient for diplopia - MRI negative for brain stem CVA (3) Hyponatremia: Continue NaCl tablets as per last outpatient nephrology note Suspected chronic from alcohol use but acutely worse from chlorthalidone and lasix use. Oxcarbazepine and venlafaxine also possibly contributing but will leave adjustment of this up to his outpatient neurologist given history of severe neuropathic pain, less likely if labs tomorrow not consistent with SIADH Na stable at 124, although still significantly decreased despite no excessive oral fluid/alcohol intake, adequate hydration status and no current diuretic use. Will recheck serum/urine osm/Na in AM to assist with diagnosis (4) Bacteremia: Present on last admission. Klebsiella pneumoniae secondary to prostatitis. Blood cultures now negative. I do not suspect this lead to current admission and does not appear to be treatment failure of Levaquin. Appreciate ID consult - switched to Bactrim, to be treated for several weeks. Follow up with ID in office after discharge. (5) Hypomagnesemia: 01/27 Mg 1.9. Repeat level in AM. Switch to daily dosing of Mg Oxide. (6) Hypokalemia: Consistent with chlorthalidone use Now resolved without supplementation (7) Chronic venous stasis: Chronic - recommend against diuretic use. Suspect increased swelling due to cellulitis on prior admission. reports they are currently improved. US for DVT negative on last admission. - Elevate limbs - SREE hose - consider fitted compression stockings as outpatient (8) Essential hypertension: Restart metoprolol as above. Will continue to hold lasix and lisinopril Orthostatics daily (9) Hyperlipidemia: Continue home med atorvastatin (10) Alcohol abuse: EtOH = 12. Patient reports drinking 5 beers daily. - No sign of withdrawal throughout admission, not required any Ativan dosing. (11) COPD (chronic obstructive pulmonary disease): Chronic. Currently with wheezing on exam. Patient has not been taking his Incruse Ellipta during this admission as was not on his home medication list. His will bring this in tomorrow. - Start scheduled duo nebs 4 times daily and reassess tomorrow for need for steroids. 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 Planned to wean off gabapentin and increase Lyrica (should only be taking 200mg TID gabapentin, changed) (13) Migraine: Imitrex PRN - took away headache today Suspect venlafaxine also helping with migraine prophylaxis (14) Anemia: Normocytic. Stable. Likely worse acutely due to multiple lab draws from prolonged hospital stays. Follow up as outpatient (15) DVT prophylaxis: Lovenox 40mg SQ daily added (16) Discharge planning issues: Plan to discharge home tomorrow after 48 hours of IV thiamine. Subjective No acute events overnight. Telemetry unremarkable. No recurrence of his migraine headache. He reports no real improvement with his vision (diplopia) or balance. No dizziness on standing. Review of Systems Review of Systems: All systems reviewed & are unremarkable except as noted in HPI & below Physical Exam Constitutional: well developed and comfortable; + not well nourished and no acute distress Eyes: + anicteric sclerae and + nystagmus (horizontal only, b/l on lateral gaze R > L); + EOM not intact (diplopia, resolves with one eye) ENMT: external ear and nose normal, oropharynx normal Respiratory: normal respiratory effort; no respiratory distress, no labored breathing, no retractions and does not use accessory muscles Auscultation: + wheezes (mild end expiratory wheeze throughout); no diminished lung sounds, no crackles and no rales Cardiovascular: Rate/Rhythm: regular rate and regular rhythm Heart Sounds: normal S1 and normal S2; no murmur Extremities: + pedal edema (1+ b/l equal) Gastrointestinal (Abdomen): Inspection/Auscultation: normal bowel sounds; abdomen not distended Percussion/Palpation: abdomen soft; abdomen nontender, no guarding and abdomen not rigid Musculoskeletal: no cyanosis or clubbing, extremities motor strength 5/5 Skin: + dry skin (Peeling on legs bilaterally) Neurologic: awake; + CN's not intact (see eye exam above), no focal motor deficits and not confused Speech / Cognition: normal speech Motor/Sensory: + sensory deficit (stocking distribution numbness in toes); no tremor and no pronator drift Coordination: + abnormal [id number] test (b/l equal clumsiness) Psychiatric: A+Ox3, euthymic affect Results & Data Vital Signs (Past 12 Hours) Vital Signs Temp Pulse Pulse Resp BP BP Pulse Ox 01/29/19 09:00 71 01/29/19 08:00 97.9 F 80 18 114/76 100 01/29/19 04:16 97.9 F 84 20 115/76 98 01/29/19 00:01 97.5 F L 99 H 22 110/70 94 01/28/19 23:32 90 PG Care Time/CCT Total # of Minutes Spent Total Time Spent with Patient: Total time spent is greater than 50% in coordination of care (as documented) at patient's floor/unit and/or counseling patient: (1) Migraine Intractability: not intractable Migraine type: unspecified Status migrainosus presence: without status migrainosus Qualified Code(s): G43.909 - Migraine, unspecified, not intractable, without status migrainosus (2) Hyperlipidemia Hyperlipidemia type: unspecified Qualified Code(s): E78.5 - Hyperlipidemia, unspecified (3) Peripheral neuropathy Peripheral neuropathy type: polyneuropathy, unspecified Qualified Code(s): G62.9 - Polyneuropathy, unspecified (4) Anemia Anemia type: unspecified type Qualified Code(s): D64.9 - Anemia, unspecified
[2019-01-29] MEDS ORDERED: UMECLIDINIUM 62.5 MCG INH SCH (10:00)
[2019-01-29] MEDS: FLUTICASONE/SALMETEROL (ADVAIR) 500/50 INH 14 PUFF INH SCH ×2 (10:09→22:22)
[2019-01-29] MEDS: ALBUT/IPRATROP 3MG/0.5MG NEB 3 ML VIAL NEB SCH ×3 (11:26→19:08)
[2019-01-29] MEDS: ACETAMINOPHEN 325 MG TAB PO PRN (13:44)
[2019-01-29] MEDS ORDERED: SUMAtriptan succinate 50 MG TAB PO STA (16:50)
[2019-01-29] MEDS: ATORVASTATIN 40 MG TAB PO SCH (22:23)
[2019-01-30] MEDS: ALBUT/IPRATROP 3MG/0.5MG NEB 3 ML VIAL NEB SCH ×4 (07:18→19:38)
[2019-01-30] MEDS: SUMAtriptan succinate 50 MG TAB PO PRN ×2 (08:03→09:30)
[2019-01-30] MEDS: VENLAFAXINE HCL XR 150 MG CAPXR PO SCH (08:04)
[2019-01-30] MEDS: GABAPENTIN 100 MG CAP PO SCH ×3 (08:04→20:36)
[2019-01-30] MEDS: METOPROLOL SUCC 50MG EXT REL TAB PO SCH (08:04)
[2019-01-30] MEDS: FOLIC ACID 400 MCG TAB PO SCH (08:05)
[2019-01-30] MEDS: OXcarbazepine 150 MG TABLET PO SCH ×2 (08:05→20:37)
[2019-01-30] MEDS: THIAMINE HCL 100 MG TAB PO SCH (08:06)
[2019-01-30] MEDS: MAGNESIUM OXIDE 400 MG TAB PO SCH (08:07)
[2019-01-30] MEDS: TAMSULOSIN HCL 0.4 MG CAP PO SCH (08:07)
[2019-01-30] MEDS: FERROUS FUMARATE/ASCORBIC ACID 65 MG CAPCR PO SCH (08:07)
[2019-01-30] MEDS: PREGABALIN 100 MG CAP PO SCH ×2 (08:08→20:36)
[2019-01-30] MEDS: SULFAMETHOXAZOLE/TRIMETHOPRIM DS 800/160MG TAB PO SCH ×2 (08:09→20:37)
[2019-01-30] MEDS: FLUTICASONE/SALMETEROL (ADVAIR) 500/50 INH 14 PUFF INH SCH ×2 (08:10→20:36)
[2019-01-30 08:15] LABS: BUN Creatinine Ratio 9.2 (10-20); Calcium 8.9 mg/dl (8.5-10.1); Creatinine Clr Calc Pharmacy 100.1 ml/min; Est GFR (African American) 109.6; Est GFR (Non-African American) 94.6; Magnesium 2.1 mg/dl (1.8-2.4); Potassium 4.2 mmol/L (3.5-5.1)
[2019-01-30] MEDS: THIAMINE HCL 200 MG in SODIUM CHLORIDE 0.9% 50 ML IV SCH (08:15)
[2019-01-30] MEDS: ENOXAPARIN INJ 40 MG/0.4 ML SYR SQ SCH (08:56)
[2019-01-30] MEDS ORDERED: SODIUM CHLORIDE 1 GM TABLET PO SCH (09:00)
--- NOTE | 2019-01-30 09:42 | Hospitalist Progress Note ---
Date of Service January 30, 2019 Assessment & Plan (1) SIADH (syndrome of inappropriate ADH production): Euvolemic on exam with urine NA/osm supportive of this diagnosis rather than beer potomania which this has been previously ascribed to be causing this. Cortisol to assess for adrenal insufficiency pending at this time but this remains alternative diagnosis. Daily orthostatics needed. Na continues to trend down and although somewhat chronic he is usually more around 130. Currently 121. Asymptomatic and MRI previous normal therefore will avoid hypertonic saline at present. Reduce Trileptal as likely contributing (venlafaxine alternatively contributing but concern for increasing pain if reducing both and patient already having recurrent migraines). Fluid restrict to 1200ml and increased Na Cl tablets to QID. I do not feel it is safe to discharge this patient at present. (2) Hyponatremia: Concerning worsening headache than usual may be due to current hyponatremia. Secondary to SIADH vs. adrenal insufficiency. ?Adrenal crisis on last admission in setting of Klebsiella bacteremia (random cortisol 21.23 would suggest against this diagnosis). Na = 123 on admission, currently 121. Improved initially with NSS but continues to progress after stopping this. Rx for SIADH as above. Will consult nephrology if continues to progress despite treatment for this. (3) Syncope and collapse: Secondary to hypotension with chlorthalidone use (pt was taking but not recently prescribed). Suspect combined with lasix, lisinopril and alcohol this caused his hypotensive and syncopal episode. Orthostatics daily. (4) Bacteremia: Present on last admission. Klebsiella pneumoniae secondary to prostatitis. Blood cultures now negative for 5 days. Possibly contributing towards SIADH but I do not suspect this lead to current admission and does not appear to be treatment failure of Levaquin. Appreciate ID consult - switched to Bactrim, to be treated for several weeks. Follow up with ID in office after discharge. (5) Hypomagnesemia: Resolved with Mg oxide BID dosing. Now dosing Mg Ox 400mg QAM. (6) Hypokalemia: Consistent with chlorthalidone use Now resolved without supplementation (7) Lymphedema: Chronic - recommend against diuretic use - Elevate limbs - SREE hose - consider fitted compression stockings as outpatient (8) Essential hypertension: Restart metoprolol as above. Will continue to hold lasix and lisinopril Orthostatics daily (9) Hyperlipidemia: Continue home med atorvastatin (10) Alcohol abuse: EtOH = 12. Patient reports drinking 5 beers daily. - No sign of withdrawal throughout admission, not required any Ativan dosing. (11) COPD (chronic obstructive pulmonary disease): Chronic. Stable. No SOB. Wheeze appears to have resolved. -DuoNeb and Albuterol PRN -Continue Advair (12) Peripheral neuropathy: Alcohol-induced sensory ataxia as per neuro o/p note. Reduce Trileptal given suspected SIADH above. Will continue venlafaxine for migraine prophylaxis and peripheral neuropathy While adjusting above will continue outpatient dosing of gabapentin and pregabalin. (13) DVT prophylaxis: Continue lovenox 40mg SQ daily (14) Discharge planning issues: Continued inpatient stay due to hyponatremia continuing to trend down. Subjective Patient having worsening headache today. Required multiple doses of sumatriptan which appear to help but then continues to come back. Reports this is much worse than normal. He describes these as similar to his prior migraines but usually doesn't get them quite as often. Present over the front of his head, b/l constant ache, not pounding, no aura, worse with light and noise. Previous chiropractor treatment has helped. No change to his diplopia but limited exam due to current headache. Reports his breathing is better now on regular duonebs. Review of Systems Review of Systems: All systems reviewed & are unremarkable except as noted in HPI & below Physical Exam Constitutional: well developed and + acute distress (headache); + not well nourished Eyes: + anicteric sclerae and PERRL; + EOM not intact (diplopia, resolves with unilateral vision, no change from prior days) ENMT: external ear and nose normal, oropharynx normal Neck: normal visual inspection and trachea midline Respiratory: normal respiratory effort; no respiratory distress, no labored breathing, no retractions and does not use accessory muscles Auscultation: lungs clear to auscultation bilaterally; no diminished lung sounds, no crackles, no rales and no wheezes Cardiovascular: Rate/Rhythm: regular rate and regular rhythm Heart Sounds: normal S1 and normal S2; no murmur Vessels: no JVD Extremities: + pedal edema (1+ b/l equal, no cellulitis (erythema or warmth)) Gastrointestinal (Abdomen): Inspection/Auscultation: normal bowel sounds; abdomen not distended Percussion/Palpation: abdomen soft; abdomen nontender, no guarding and abdomen not rigid Musculoskeletal: no cyanosis or clubbing, extremities motor strength 5/5 (grossly normal strength in all 4 limbs) Skin: + dry skin (improving peeling on legs) Neurologic: CN's II-XI intact bilaterally and awake; no focal motor deficits and not confused Speech / Cognition: normal speech Motor/Sensory: no tremor and no sensory deficit Psychiatric: Orientation: alert and oriented x 3 Lymphatic: no cervical or axillary lymphadenopathy no inguinal lymphadenopathy Results & Data Vital Signs (Past 12 Hours) Vital Signs Temp Pulse Pulse Resp BP Pulse Ox 01/30/19 07:50 97.5 F L 75 16 123/79 99 01/30/19 07:21 83 18 94 01/30/19 05:00 97.9 F 81 20 117/76 97 01/30/19 01:05 77 01/30/19 00:37 98.1 F 85 20 116/69 98 PG Care Time/CCT Total # of Minutes Spent Total Time Spent with Patient: Total time spent is greater than 50% in coordination of care (as documented) at patient's floor/unit and/or counseling patient: (1) Hyperlipidemia Hyperlipidemia type: unspecified Qualified Code(s): E78.5 - Hyperlipidemia, unspecified (2) Peripheral neuropathy Peripheral neuropathy type: polyneuropathy, unspecified Qualified Code(s): G62.9 - Polyneuropathy, unspecified
[2019-01-30 11:45] LABS: Appearance Urine Clear (Clear); Bilirubin Urine Negative (Negative); Blood Urine Negative (Negative); Color Urine Yellow; Glucose Urine UA Negative (Negative); Ketones Urine Negative (Negative); Leukocyte Esterase Urine Negative (Negative); Nitrite Urine Negative (Negative); Protein Urine Negative (Negative); Specific Gravity Urine 1.009 (1.000-1.030); Urobilinogen Urine Negative (Negative); pH Urine 8.5 (4.5-7.5)
[2019-01-30] MEDS: SODIUM CHLORIDE 1 GM TABLET PO SCH ×3 (13:27→20:36)
[2019-01-30 14:14] LABS: BUN Creatinine Ratio 6.8 (10-20); Calcium 8.8 mg/dl (8.5-10.1); Creatinine Clr Calc Pharmacy 80.3 ml/min; Est GFR (African American) 95.1; Potassium 4.7 mmol/L (3.5-5.1)
--- NOTE | 2019-01-30 16:23 | Nephrology Consultation ---
Date of Consultation January 30, 2019 Assessment & Plan (1) SIADH (syndrome of inappropriate ADH production): -- Clinically euvolemic with normal thyroid, adrenal and kidney function. Urine osmolality is inappropriately elevated c/w SIADH -- Recommend 1 L / day oral free water restriction -- Stop 0.9 NS infusion -- Agree with 4 g/day NaCl supplementation -- Will provide low dose loop diuretic to force free water excretion -- Recheck PRP, urine osmolality in am -- Recommend noncontrast chest CT to rule out underlying lung malignancy associated w/ senior living tobacco use (2) Alcohol abuse: -- MVI w/ B12 and folate (3) COPD (chronic obstructive pulmonary disease): -- Needs smoking cessation History of Present Illness Reason for Consultation: Mr. Barnes is a 68 year old white male who is seen at the request of Dr. Shah for evaluation of hyponatremia. Medical records in the EMR were reviewed today and are summarized as follows: Mr. Barnes has a longstanding h/o tobacco and alcohol abuse. This has been complicated by chronic hyponatremia w/ serum sodium 125 - 130 mmol/dL. Mr. Barnes has undergone Nephrology evaluation by Dr. Tohmas. Hyponatremia was attributed to beer potomania. NaCl 1 g po BID was prescribed. Mr. Barnes was hospitalized 01/10 - 01/21 due to Klebsiella urosepsis. He was placed on Levaquin therapy. On 01/24 Mr. Barnes was brought to the ED after suffering several syncopal events. ECG revealed a prolonged QTc interval. Levaquin was subsequently changed to Bactrim. Initially there was concern that Mr. Barnes was dehydrated. 0.9NS was administered. Unfortunately he has developed progressive hyponatremia. Serum sodium is 121 today w/ urine osmolality of 265. Primary service has restarted oral NaCl therapy Attending Physician: Kannan Shah MD Allergies Allergy/AdvReac Type Severity Reaction Status Date / Time No Known Allergies Allergy Verified 01/24/19 22:54 Home Medications Home Medications Medication Instructions Recorded Confirmed Type gabapentin 100 mg capsule 300 mg PO TID #180 cap 11/19/18 01/24/19 History pregabalin 100 mg capsule 100 mg PO BID #60 cap 12/04/18 01/24/19 History metoprolol succinate ER 25 mg 25 mg PO DAILY 12/06/18 01/24/19 History tablet,extended release 24 hr metoprolol succinate ER 50 mg 50 mg PO DAILY #30 tab 12/06/18 01/24/19 History tablet,extended release 24 hr albuterol sulfate HFA 90 1 - 2 puff INHALATION Q4H PRN #18 12/13/18 01/24/19 Rx mcg/actuation aerosol inhaler gm atorvastatin 40 mg tablet 40 mg PO HS 12/13/18 01/24/19 History folic acid 400 mcg tablet 0.4 mg PO DAILY 12/13/18 01/24/19 History lisinopril 10 mg tablet 10 mg PO DAILY 12/13/18 01/24/19 History oxcarbazepine 300 mg tablet 300 mg PO BID 12/13/18 01/24/19 History venlafaxine ER 150 mg 150 mg PO DAILY 12/13/18 01/24/19 History capsule,extended release 24 hr vitamin B complex-folic acid 2,000 1 cap PO DAILY 12/13/18 01/24/19 History mcg capsule fluticasone propion-salmeterol 1 inh INHALATION DIRECTED 01/10/19 01/24/19 History [Advair Diskus] ferrous fumarate-vitamin C 1 tab PO DAILY #30 tab 01/21/19 01/24/19 Rx [Mariola-Sequels (iron-vit c)] levofloxacin 750 mg PO DAILY@1100 #11 tab 01/21/19 01/24/19 Rx thiamine HCl (vitamin B1) [Vitamin 100 mg PO QAM #30 tab 01/21/19 01/24/19 Rx B-1] furosemide 20 mg PO BID 01/24/19 01/24/19 History Patient History Medical History Face lacerations (Acute) Neuropathy (Chronic) Hypertension (Chronic) Alcohol abuse (Chronic) COPD (chronic obstructive pulmonary disease) (Chronic) Anemia (Acute) Tremor Gross hematuria H/O tooth extraction Lower teeth on 04/23/2018 Hyperlipidemia Slowing of urinary stream Surgical History S/P foot surgery Family History Father Hypertension Aneurysm Mother Swelling Uncle Myocardial infarction Other No significant family history Social History Preferred Language: Kyr[place]z Communication Ability: Effective Visual Impairment: Limited Hearing Ability: Normal Fur Trapper Required: No Beliefs That Will Affect Care: None marital status: Current Living Situation: Spouse current occupational status: retired Other Information That Helps Us Care for You: No Feels Safe at Home: Yes Safety Concerns: Feels Safe At This Time Smoking Status: Former smoker Tobacco Type: cigarettes ; Age Started Using Tobacco: 14 ; Age Quit Using Tobacco: 68 ; packs per day: 1 ; Cigarettes Per Day: 10 ; Second Hand Exposure: No ; Hx Alcohol Use: Yes Alcohol type: beer Alcohol Intake Frequency Comment: 8+ per day Hx Substance Use: No Childhood Exposure to Second-Hand Smoke: Yes Dental Care, Regularly: No Physical Activity Frequency: Does not Exercise Seatbelt Use: always Sunscreen Use: No Review of Systems Constitutional: no fever and no chills Eyes: no worsening vision and no problem reported Ear, Nose, Mouth, Throat: no problem reported Respiratory: no cough and no dyspnea Cardiovascular: no chest pain, no palpitations and no edema Gastrointestinal: no abdominal pain, no nausea, no vomiting and no diarrhea/loose stools Genitourinary: no dysuria, no urinary hesitancy and no hematuria Musculoskeletal: no back pain Integumentary: no rash Neurologic: no confusion Physical Exam Constitutional: + frail appearing; not in distress Eyes: PERRL, conjunctivae normal, anicteric sclerae ENMT: Mouth: + edentulous Neck: trachea midline, no thyromegaly Respiratory: normal respiratory effort, lungs clear to auscultation Cardiovascular: RRR, no murmur, no edema Gastrointestinal (Abdomen): normal bowel sounds, soft, nontender, no hepatosplenomegaly Musculoskeletal: Extremities: no cyanosis Skin: no rashes, warm and dry Neurologic: awake; not confused Results & Data Vital Signs (Past 12 Hours) Vital Signs Temp Pulse Pulse Resp BP BP Pulse Ox 01/30/19 15:31 94 H 18 93 01/30/19 15:22 36.7 C 101 H 20 150/82 H 91 01/30/19 15:06 86 01/30/19 11:32 94 H 16 94 01/30/19 11:31 36.7 C 88 20 125/76 93 01/30/19 08:00 81 01/30/19 07:50 36.4 C L 75 16 123/79 99 01/30/19 07:21 83 18 94 01/30/19 05:00 36.6 C 81 20 117/76 97 Laboratory Results Laboratory Tests 01/28/19 01/30/19 01/30/19 07:07 05:15 07:23 WBC 4.84 Hgb 9.7 L Hct 27.9 L Plt Count 205 Sodium Potassium Chloride Carbon Dioxide BUN Creatinine Glucose Cortisol AM Sample 15.30 Urine Color Urine Appearance Urine pH Ur Specific [place] Urine Protein Urine Glucose (UA) Urine Ketones Urine Blood Urine Nitrite Urine Bilirubin Urine Urobilinogen Ur Leukocyte Esterase Urine Osmolality 265 L 01/30/19 01/30/19 11:00 13:37 WBC Hgb Hct Plt Count Sodium 121 L Potassium 4.7 Chloride 88 L Carbon Dioxide 27 BUN 7 Creatinine 0.96 Glucose 146 H Cortisol AM Sample Urine Color Yellow Urine Appearance Clear Urine pH 8.5 H Ur Specific [place] 1.009 Urine Protein Negative Urine Glucose (UA) Negative Urine Ketones Negative Urine Blood Negative Urine Nitrite Negative Urine Bilirubin Negative Urine Urobilinogen Negative Ur Leukocyte Esterase Negative Urine Osmolality PG Care Time/CCT Total # of Minutes Spent Total Time Spent with Patient: Total time spent is greater than 50% in coordination of care (as documented) at patient's floor/unit and/or counseling patient:
--- NOTE | 2019-01-30 17:21 | CT Scan Report ---
CT chest wo con CT DOSE: 380.89 mGy.cm HISTORY: Pyrexia SIADH, hypoxia, smoker ?lung nodules TECHNIQUE: Multiaxial CT images of the chest were performed without contrast. A dose lowering techni que was utilized adhering to the principles of ALARA. COMPARISON: None. FINDINGS: The lungs are clear. The mediastinal vascular structures are within normal limits. No media stinal or hilar lymphadenopathy. No pleural effusion or pneumothorax. Limited views of the upper abdo men demonstrate a normal liver and spleen. No significant pulmonary nodularity. Mild tortuosity and e ctasia thoracic aorta considered unchanged. IMPRESSION: No acute process. No change from the prior exam. The above report was generated using voice recognition software. It may contain grammatical, syntax or spelling errors. Electronically signed by: Jagdish Rehman M.D. 01/30/2019 5:20 PM
[2019-01-30] MEDS: FUROSEMIDE 20 MG TAB PO SCH (17:38)
--- NOTE | 2019-01-30 20:04 | Infectious Disease Progress Nt ---
Date of Service January 30, 2019 Assessment & Plan (1) Chronic prostatitis: 68-year-old male admitted with syncopal episode, with recent Klebsiella bacteremia likely from urinary tract source, likely chronic prostatitis. Agree that additional oral antibiotics for at least several more weeks, and as isolate is sensitive to Bactrim, will use Bactrim twice daily for at least 2-4 more weeks. Will follow. (2) Klebsiella pneumoniae infection: Subjective Patient seen in follow-up for probable prostatitis. Complaining of worsening headache today. Was given multiple doses of sumatriptan without much help. No urinary complaints. Remains afebrile. Blood cultures remain negative to date. Review of Systems Review of Systems: All systems reviewed & are unremarkable except as noted in HPI & below Physical Exam Constitutional: WD/WN, vitals as above comfortable; no acute distress Eyes: PERRL, conjunctivae normal, anicteric sclerae ENMT: external ear and nose normal, oropharynx normal Neck: trachea midline, no thyromegaly neck nontender Respiratory: normal respiratory effort, lungs clear to auscultation normal percussion; does not use accessory muscles Cardiovascular: Rate/Rhythm: regular rate and regular rhythm Heart Sounds: normal S1 and normal S2; no gallop, no murmur and no cardiac rub Vessels: normal peripheral pulses; no JVD Gastrointestinal (Abdomen): normal bowel sounds, soft, nontender, no hepatosplenomegaly Musculoskeletal: no cyanosis or clubbing, extremities motor strength 5/5 Spine: thoracic spine normal to inspection and lumbar spine normal to inspection; no cervical spinal tenderness Skin: no rashes, warm and dry normal turgor; no lesions Neurologic: patellar DTR's 2+ bilat, sensation intact no focal motor deficits Psychiatric: A+Ox3, euthymic affect Orientation: cooperative Lymphatic: no cervical or axillary lymphadenopathy no inguinal lymphadenopathy Results & Data Vital Signs (Past 12 Hours) Vital Signs Temp Pulse Pulse Resp BP BP Pulse Ox 01/30/19 19:41 107 H 16 97 01/30/19 19:15 36.8 C 95 H 20 135/79 97 01/30/19 15:31 94 H 18 93 01/30/19 15:22 36.7 C 101 H 20 150/82 H 91 01/30/19 15:06 86 01/30/19 11:32 94 H 16 94 01/30/19 11:31 36.7 C 88 20 125/76 93 Laboratory Results BMP 01/30/19 01/30/19 07:23 13:37 Sodium 121 L 121 L Potassium 4.2 4.7 Chloride 87 L 88 L Carbon Dioxide 29 27 BUN 7 7 Creatinine 0.77 0.96 Glucose 95 146 H Calcium 8.9 8.8 Urine 01/30/19 Range/Units 11:00 Urine Color Yellow Urine Appearance Clear (Clear) Urine pH 8.5 H (4.5-7.5) Ur Specific [place] 1.009 (1.000-1.030) Urine Protein Negative (Negative) Urine Glucose (UA) Negative (Negative) Diagnostic Findings Microbiology 01/24/19 22:39 Blood Aerobic Blood Culture - Final No growth in Aerobic bottle after 5 days. 01/24/19 22:39 Blood Anaerobic Blood Culture - Final No growth in Anaerobic bottle after 5 days. 01/24/19 22:34 Blood Aerobic Blood Culture - Final No growth in Aerobic bottle after 5 days. 01/24/19 22:34 Blood Anaerobic Blood Culture - Final No growth in Anaerobic bottle after 5 days. PG Care Time/CCT Total # of Minutes Spent Total Time Spent with Patient: Total time spent is greater than 50% in coordination of care (as documented) at patient's floor/unit and/or counseling patient:
[2019-01-30] MEDS: ATORVASTATIN 40 MG TAB PO SCH (20:36)
[2019-01-30] MEDS: ACETAMINOPHEN 325 MG TAB PO PRN (21:51)
[2019-01-30] MEDS ORDERED: DiphenhydrAMINE HCL 50 MG/ML VIAL IV STA (22:36)
[2019-01-30] MEDS ORDERED: PROCHLORPERAZINE 5 MG in SYRINGE 4 ML IV ONE (22:45)
[2019-01-31 07:07] LABS: Calcium 9.1 mg/dl (8.5-10.1); Creatinine Clr Calc Pharmacy 79.2 ml/min; Est GFR (African American) 93.9; Potassium 4.6 mmol/L (3.5-5.1)
[2019-01-31] MEDS: ALBUT/IPRATROP 3MG/0.5MG NEB 3 ML VIAL NEB SCH ×4 (07:14→19:27)
[2019-01-31] MEDS: VENLAFAXINE HCL XR 150 MG CAPXR PO SCH (08:10)
[2019-01-31] MEDS: FLUTICASONE/SALMETEROL (ADVAIR) 500/50 INH 14 PUFF INH SCH (08:10)
[2019-01-31] MEDS: SULFAMETHOXAZOLE/TRIMETHOPRIM DS 800/160MG TAB PO SCH ×2 (08:11→21:06)
[2019-01-31] MEDS: FOLIC ACID 400 MCG TAB PO SCH (08:12)
[2019-01-31] MEDS: MAGNESIUM OXIDE 400 MG TAB PO SCH (08:12)
[2019-01-31] MEDS: THIAMINE HCL 100 MG TAB PO SCH (08:12)
[2019-01-31] MEDS: OXcarbazepine 150 MG TABLET PO SCH ×2 (08:13→21:06)
[2019-01-31] MEDS: GABAPENTIN 100 MG CAP PO SCH ×3 (08:13→21:06)
[2019-01-31] MEDS: TAMSULOSIN HCL 0.4 MG CAP PO SCH (08:13)
[2019-01-31] MEDS: SODIUM CHLORIDE 1 GM TABLET PO SCH ×4 (08:14→21:07)
[2019-01-31] MEDS: FERROUS FUMARATE/ASCORBIC ACID 65 MG CAPCR PO SCH (08:14)
[2019-01-31] MEDS: FUROSEMIDE 20 MG TAB PO SCH (08:14)
[2019-01-31] MEDS: ENOXAPARIN INJ 40 MG/0.4 ML SYR SQ SCH (08:15)
[2019-01-31] MEDS: PREGABALIN 100 MG CAP PO SCH ×2 (08:31→21:05)
[2019-01-31] MEDS: METOPROLOL SUCC 50MG EXT REL TAB PO SCH (08:31)
--- NOTE | 2019-01-31 09:50 | Nephrology Progress Note ---
Date of Service January 31, 2019 Assessment & Plan (1) SIADH (syndrome of inappropriate ADH production): -- Clinically euvolemic with normal thyroid, adrenal and kidney function. Urine osmolality is inappropriately elevated c/w SIADH -- Continue 1 L / day oral free water restriction -- Continue NaCl 2g po BID and Furosemide 20 mg po BID -- Recheck PRP, urine osmolality in am -- Chest CT 01/30: No mass/malignancy -- If discharge is anticipated please have patient follow up w/ Dr. Thomas in 1 - 2 weeks ([facility] [phone]). Instruct patient to have blood & urine studies completed 24 hours prior to OV. Orders have been entered into EMR (2) Alcohol abuse: -- MVI w/ B12 and folate (3) COPD (chronic obstructive pulmonary disease): -- Needs smoking cessation Subjective Mr. Barnes was seen & examined in his hospital room this morning. He is tolerating Furosemide and NaCl tablets without orthostasis or GI upset. His primary concern this morning is a recurrent MORGAN Review of Systems Constitutional: no fever and no chills Eyes: no worsening vision and no problem reported Ear, Nose, Mouth, Throat: no problem reported Respiratory: no cough and no dyspnea Cardiovascular: no chest pain, no palpitations and no edema Gastrointestinal: no abdominal pain, no nausea, no vomiting and no diarrhea/loose stools Genitourinary: no dysuria, no urinary hesitancy and no hematuria Musculoskeletal: no back pain Integumentary: no rash Neurologic: + headache(s); no falls and no dizziness Physical Exam Constitutional: + frail appearing; not in distress Eyes: PERRL, conjunctivae normal, anicteric sclerae ENMT: Mouth: + edentulous Neck: trachea midline, no thyromegaly Respiratory: normal respiratory effort, lungs clear to auscultation Cardiovascular: RRR, no murmur, no edema Gastrointestinal (Abdomen): normal bowel sounds, soft, nontender, no hepatosplenomegaly Musculoskeletal: Extremities: no cyanosis Skin: no rashes, warm and dry Neurologic: awake; not confused Results & Data Vital Signs (Past 12 Hours) Vital Signs Temp Pulse Pulse Resp BP BP Pulse Ox 01/31/19 07:35 78 01/31/19 07:14 113 H 18 93 01/31/19 04:00 36.4 C L 86 18 119/84 99 01/30/19 23:32 88 01/30/19 23:09 36.6 C 90 19 126/79 96 01/30/19 22:27 96 H 123/67 94 Laboratory Results Laboratory Tests 01/31/19 06:14 Sodium 127 L Potassium 4.6 Chloride 94 L Carbon Dioxide 28 BUN 8 Creatinine 0.97 Glucose 90 PG Care Time/CCT Total # of Minutes Spent Total Time Spent with Patient: Total time spent is greater than 50% in coordination of care (as documented) at patient's floor/unit and/or counseling patient:
--- NOTE | 2019-01-31 10:38 | Hospitalist Progress Note ---
Date of Service January 31, 2019 Assessment & Plan (1) SIADH (syndrome of inappropriate ADH production): Euvolemic on exam with urine NA/osm supportive of this diagnosis rather than beer potomania which this has been previously ascribed to be causing this. Cortisol WNL - no adrenal insufficiency. Appreciate renal consult. Lasix vs. increased salt tabs improved sodium levels. No lung nodules on CT causing SIADH - suspect more medication induced. Reduced Trileptal given minimal neuropathic pain. Continue venlafaxine - both can cause SIADH Continue fluid restriction @ 1000ml increased Na Cl tablets QID. Stop lasix due to orthostatic hypotension as below. (2) Hyponatremia: Improved as above for SIADH (3) Orthostatic hypotension: Worse secondary to lasix restarted for SIADH. Will discontinue. Repeat orthostatics daily. (4) Essential hypertension: Restarted metoprolol Stop lasix and lisinopril as above (5) COPD (chronic obstructive pulmonary disease): Chronic. Severe on prior PFTs - Improved with regular duonebs. Will start short course (3-5 days) of prednisone for acute exacerbation although suspect he just wheezing because he hadn't been getting his regular medications. He does not feel there is anything left in his Advair. - Switch Advair to symbicort and start Spiriva (his brought in the Incruse Ellipta however it was empty) - Continue routine duonebs today (6) COPD exacerbation: as above for COPD (7) Syncope and collapse: Main reason for admission. Secondary to hypotension with chlorthalidone use (pt was taking but not recently prescribed). Suspect combined with lasix, lisinopril and alcohol this caused his hypotensive and syncopal episode. Became orthostatic today on lasix alone. Since no events on monitor during his hospitalization will transfer to med/surg. (8) Bacteremia: Present on last admission. Klebsiella pneumoniae infection of probable chronic prostatitis. Blood cultures now negative. Possibly contributing towards SIADH but I do not suspect this lead to current admission and does not appear to be treatment failure of Levaquin. Appreciate ID consult - switched to Bactrim, to be treated for several weeks. Follow up with ID in office after discharge. (9) Chronic prostatitis: as above for bacteremia. Rx Bactrim. F/U infectious disease (10) Hypomagnesemia: Resolved with Mg oxide BID dosing. Now dosing Mg Ox 400mg QAM. Repeat Mg level in AM. (11) Hypokalemia: Consistent with chlorthalidone use Now resolved without supplementation (12) Hyperlipidemia: Continue home med atorvastatin (13) Alcohol abuse: EtOH = 12 on admission. Patient reports drinking 5 beers daily. - No sign of withdrawal throughout admission, not required any Ativan dosing. (14) Chronic venous stasis: Continue to reduce gabapentin as possibly contributing. Compression stockings. Avoid diuretics. (15) Peripheral neuropathy: Alcohol-induced sensory ataxia as per neuro o/p note although minimal neuropathy on exam. No EMG/NCS testing found in outpatient notes. Continue on reduced Trileptal dose due to SIADH. Will continue venlafaxine for migraine prophylaxis and peripheral neuropathy Continue to reduce gabapentin as per outpatient plan and peripheral edema Continue pregabalin. (16) DVT prophylaxis: Continue lovenox 40mg SQ daily (17) Discharge planning issues: Continued inpatient stay due to significant orthostasis. Results & Data Vital Signs (Past 12 Hours) Vital Signs Temp Pulse Pulse Resp BP BP Pulse Ox 01/31/19 07:35 78 01/31/19 07:14 113 H 18 93 01/31/19 04:00 97.5 F L 86 18 119/84 99 01/30/19 23:32 88 01/30/19 23:09 97.9 F 90 19 126/79 96 PG Care Time/CCT Total # of Minutes Spent Total Time Spent with Patient: Total time spent is greater than 50% in coordination of care (as documented) at patient's floor/unit and/or counseling patient: (1) Hyperlipidemia Hyperlipidemia type: unspecified Qualified Code(s): E78.5 - Hyperlipidemia, unspecified (2) Peripheral neuropathy Peripheral neuropathy type: polyneuropathy, unspecified Qualified Code(s): G62.9 - Polyneuropathy, unspecified (3) COPD (chronic obstructive pulmonary disease) COPD type: unspecified COPD Qualified Code(s): J44.9 - Chronic obstructive pulmonary disease, unspecified
[2019-01-31] MEDS: BUDESONIDE/FORMOTEROL FUMARATE 160/4.5 60 PUFFS/INHALER INH SCH ×2 (11:05→21:06)
[2019-01-31] MEDS: TIOTROPIUM BROMIDE 5 PUFF/90 MCG INH INH SCH (11:06)
[2019-01-31] MEDS: predniSONE 20 MG TAB PO SCH (11:08)
[2019-01-31] MEDS: SUMAtriptan succinate 50 MG TAB PO PRN (11:33)
[2019-01-31] MEDS ORDERED: SODIUM CHLORIDE 0.9% 1000ML 500 ML IV ONE (15:31)
--- NOTE | 2019-01-31 15:37 | Infectious Disease Progress Nt ---
Date of Service January 31, 2019 Assessment & Plan (1) Chronic prostatitis: 68-year-old male admitted with syncopal episode, with recent Klebsiella bacteremia likely from urinary tract source, likely chronic prostatitis. To continue Bactrim at least 3-4 more weeks given likely chronic prostatitis. Will follow. (2) Klebsiella pneumoniae infection: Subjective Patient seen in follow-up for prostatitis. Continues on Bactrim which he is christy erating without apparent difficulty. Complaining of headache again. Treatment for SIADH in progress. Review of Systems Review of Systems: All systems reviewed & are unremarkable except as noted in HPI & below Physical Exam Constitutional: WD/WN, vitals as above comfortable; no acute distress Eyes: PERRL, conjunctivae normal, anicteric sclerae ENMT: external ear and nose normal, oropharynx normal Neck: trachea midline, no thyromegaly neck nontender Respiratory: normal respiratory effort, lungs clear to auscultation normal percussion; does not use accessory muscles Cardiovascular: Rate/Rhythm: regular rate and regular rhythm Heart Sounds: normal S1 and normal S2; no gallop, no murmur and no cardiac rub Vessels: normal peripheral pulses; no JVD Gastrointestinal (Abdomen): normal bowel sounds, soft, nontender, no hepatosplenomegaly Musculoskeletal: no cyanosis or clubbing, extremities motor strength 5/5 Spine: thoracic spine normal to inspection and lumbar spine normal to inspection; no cervical spinal tenderness Skin: no rashes, warm and dry normal turgor; no lesions Neurologic: patellar DTR's 2+ bilat, sensation intact no focal motor deficits Psychiatric: A+Ox3, euthymic affect Orientation: cooperative Lymphatic: no cervical or axillary lymphadenopathy no inguinal lymphadenopathy Results & Data Vital Signs (Past 12 Hours) Vital Signs Temp Pulse Pulse Pulse Pulse Pulse Resp 01/31/19 15:21 94 H 01/31/19 15:20 90 19 01/31/19 12:44 123 H 01/31/19 12:43 107 H 01/31/19 12:42 37.1 C 95 H 19 01/31/19 11:12 91 H 16 01/31/19 10:39 121 H 113 H 94 H 01/31/19 07:35 78 01/31/19 07:14 113 H 18 01/31/19 04:00 36.4 C L 86 18 Resp Resp Resp BP Pulse Ox Pulse Ox Pulse Ox 01/31/19 15:21 01/31/19 15:20 91 01/31/19 12:44 88/59 L 01/31/19 12:43 107/58 L 01/31/19 12:42 113/73 92 01/31/19 11:12 90 01/31/19 10:39 26 H 24 18 89 L 93 01/31/19 07:35 01/31/19 07:14 93 01/31/19 04:00 119/84 99 Pulse Ox 01/31/19 15:21 01/31/19 15:20 01/31/19 12:44 01/31/19 12:43 01/31/19 12:42 01/31/19 11:12 01/31/19 10:39 96 01/31/19 07:35 01/31/19 07:14 01/31/19 04:00 PG Care Time/CCT Total # of Minutes Spent Total Time Spent with Patient: Total time spent is greater than 50% in coordination of care (as documented) at patient's floor/unit and/or counseling patient:
[2019-01-31] MEDS: ACETAMINOPHEN 325 MG TAB PO PRN (16:08)
[2019-01-31 16:42] LABS: BUN Creatinine Ratio 11.8 (10-20); Calcium 9.3 mg/dl (8.5-10.1); Creatinine Clr Calc Pharmacy 63.5 ml/min; Est GFR (African American) 71.9; Potassium 4.7 mmol/L (3.5-5.1)
[2019-01-31] MEDS ORDERED: KETOROLAC TROMETHAMINE 15 MG/ML VIAL IV ONE (17:30)
[2019-01-31] MEDS: ATORVASTATIN 40 MG TAB PO SCH (21:06)
[2019-02-01] MEDS ORDERED: predniSONE 10 MG TABLET PO SCH
[2019-02-01] MEDS: KETOROLAC TROMETHAMINE 15 MG/ML VIAL IV PRN ×2 (00:30→08:00)
[2019-02-01 07:25] LABS: Basophils # (auto) 0.02 K/uL (0-0.2); Basophils % (auto) 0.2 %; Eosinophils # (auto) 0.29 K/uL (0-0.5); Eosinophils % (auto) 3.4 %; Hematocrit (blood only) 30.6 % (42-52); Hemoglobin 10.4 g/dL (14.0-18.0); Immature Granulocytes # (auto) 0.03 K/uL (0.00-0.02); Immature Granulocytes % (auto) 0.4 %; Lymphocytes # (auto) 1.33 K/uL (1.2-3.4); Lymphocytes % (auto) 15.7 %; Mean Corpuscular Hemoglobin 31.9 pg (25-34); Mean Corpuscular Volume 93.9 fL (80-100); Mean Platelet Volume 8.4 fL (7.4-10.4); Monocytes # (auto) 0.89 K/uL (0.11-0.59); Monocytes % (auto) 10.5 %; Neutrophils % (auto) 69.8 %; Platelet Count 275 K/uL (130-400); RDW Coefficient of Variation 14.1 % (11.5-14.5); RDW Standard Deviation 48.4 fL (36.4-46.3); Red Blood Count 3.26 M/uL (4.7-6.1); White Blood Count 8.46 K/uL (4.8-10.8)
[2019-02-01] MEDS: ALBUT/IPRATROP 3MG/0.5MG NEB 3 ML VIAL NEB SCH ×2 (07:43→11:28)
[2019-02-01 07:54] LABS: BUN Creatinine Ratio 18.2 (10-20); Creatinine Clr Calc Pharmacy 61.7 ml/min; Est GFR (African American) 77.2; Est GFR (Non-African American) 66.6; Magnesium 2.5 mg/dl (1.8-2.4); Potassium 4.8 mmol/L (3.5-5.1)
[2019-02-01 07:59] LABS: Ferritin 110.1 ng/ml (8-388)
[2019-02-01] MEDS: FERROUS FUMARATE/ASCORBIC ACID 65 MG CAPCR PO SCH (07:59)
[2019-02-01] MEDS: FOLIC ACID 400 MCG TAB PO SCH (07:59)
[2019-02-01] MEDS: PREGABALIN 100 MG CAP PO SCH (07:59)
[2019-02-01] MEDS: MAGNESIUM OXIDE 400 MG TAB PO SCH (07:59)
[2019-02-01] MEDS: predniSONE 20 MG TAB PO SCH (07:59)
[2019-02-01] MEDS: TIOTROPIUM BROMIDE 5 PUFF/90 MCG INH INH SCH (07:59)
[2019-02-01] MEDS: GABAPENTIN 100 MG CAP PO SCH ×2 (07:59→12:51)
[2019-02-01] MEDS: ENOXAPARIN INJ 40 MG/0.4 ML SYR SQ SCH (07:59)
[2019-02-01] MEDS: VENLAFAXINE HCL XR 150 MG CAPXR PO SCH (07:59)
[2019-02-01] MEDS: SULFAMETHOXAZOLE/TRIMETHOPRIM DS 800/160MG TAB PO SCH (07:59)
[2019-02-01] MEDS: TAMSULOSIN HCL 0.4 MG CAP PO SCH (07:59)
[2019-02-01] MEDS: BUDESONIDE/FORMOTEROL FUMARATE 160/4.5 60 PUFFS/INHALER INH SCH (07:59)
[2019-02-01] MEDS: THIAMINE HCL 100 MG TAB PO SCH (08:00)
[2019-02-01] MEDS: METOPROLOL SUCC 50MG EXT REL TAB PO SCH (08:00)
[2019-02-01] MEDS: OXcarbazepine 150 MG TABLET PO SCH (08:00)
[2019-02-01] MEDS: SODIUM CHLORIDE 1 GM TABLET PO SCH ×2 (08:01→12:51)
[2019-02-01 08:17] LABS: Folate (Folic Acid) 20.93 ng/ml (>5.38)
--- NOTE | 2019-02-01 10:23 | Nephrology Progress Note ---
Date of Service February 01, 2019 Assessment & Plan (1) SIADH (syndrome of inappropriate ADH production): -- Clinically euvolemic with normal thyroid, adrenal and kidney function. Urine osmolality is inappropriately elevated c/w SIADH -- Continue 1 L / day oral free water restriction -- Continue NaCl 2g po BID -- Monitor serum sodium. Patient will likely require low dose loop diuretic to help promote free water excretion -- Chest CT 01/30: No mass/malignancy -- If discharge is anticipated please have patient follow up w/ Dr. Thomas in 1 - 2 weeks ([facility] [phone]). Instruct patient to have blood & urine studies completed 24 hours prior to OV. Orders have been entered into EMR (2) Alcohol abuse: -- MVI w/ B12 and folate (3) COPD (chronic obstructive pulmonary disease): -- Needs smoking cessation (4) Orthostasis: -- Continue to hold Lisinopril -- If orthostasis persists, consider reducing/discontinuing Metoprolol Subjective Mr. Barnes was seen & examined in his hospital room this morning. He continues to experience MORGAN. He remained hospitalized due to orthostasis yesterday. Furosemide has been stopped. Mr. Barnes is tolerating NaCl without GI upset Review of Systems Constitutional: + weakness; no fever and no chills Eyes: no worsening vision and no problem reported Ear, Nose, Mouth, Throat: no problem reported Respiratory: no cough and no dyspnea Cardiovascular: no chest pain, no palpitations and no edema Gastrointestinal: no abdominal pain, no nausea, no vomiting and no diarrhea/loose stools Genitourinary: no dysuria, no urinary hesitancy and no hematuria Musculoskeletal: no back pain Integumentary: no rash Neurologic: + headache(s); no falls and no dizziness Physical Exam Constitutional: + frail appearing; not in distress Eyes: PERRL, conjunctivae normal, anicteric sclerae ENMT: Mouth: + edentulous Neck: trachea midline, no thyromegaly Respiratory: normal respiratory effort, lungs clear to auscultation Cardiovascular: RRR, no murmur, no edema Gastrointestinal (Abdomen): normal bowel sounds, soft, nontender, no hepatosplenomegaly Musculoskeletal: Extremities: no cyanosis Skin: no rashes, warm and dry Neurologic: awake; not confused Results & Data Vital Signs (Past 12 Hours) Vital Signs Temp Pulse Pulse Resp BP Pulse Ox 02/01/19 09:00 78 02/01/19 04:00 36.5 C 82 21 128/82 97 02/01/19 01:21 104 H 01/31/19 23:19 37.0 C 97 H 15 125/78 96 Laboratory Results Laboratory Tests 02/01/19 02/01/19 06:55 06:55 WBC 8.46 Hgb 10.4 L Hct 30.6 L Plt Count 275 Sodium 131 L Potassium 4.8 Chloride 97 L Carbon Dioxide 28 BUN 21 H Creatinine 1.14 PG Care Time/CCT Total # of Minutes Spent Total Time Spent with Patient: Total time spent is greater than 50% in coordination of care (as documented) at patient's floor/unit and/or counseling patient: (1) COPD (chronic obstructive pulmonary disease) COPD type: unspecified COPD Qualified Code(s): J44.9 - Chronic obstructive pulmonary disease, unspecified
[2019-02-01] MEDS ORDERED: Nursing to Pharmacy Communication ONE ×2 (13:52→13:58)
[2019-02-01] MEDS ORDERED: SULFAMETHOXAZOLE/TRIMETHOPRIM DS 800/160MG TAB PO SCH (14:15)
--- NOTE | 2019-02-02 00:55 | Discharge Summary ---
Date of Service February 01, 2019 Admission HPI Per Admitting Provider Lauro Barnes is a 68yo C male with history of COPD on 3L home O2, HTN, HLP, peripheral neuropathy and EtOH abuse. He was recently admitted from 01/10 - 01/21 with sepsis secondary to Klebsiella UTI and bacteremia (Blood culture from 01/09 +Klebsiella PNA, urine cx from 01/10 +Klebsiella PNA. Blood from 01/11 NGTD. Blood cx drawn today). Patient was evaluated by ID and placed on Levaquin 750mg to be taken for two additional weeks to complete a 3 week course. His hyponatremia was thought to be secondary to beer potomania - he presented with a level of 119 and was administered hypertonic saline and treated with fluid restriction. Na on discharge was improved to 133. He was evaluated by PT/OT and recommended discharge to SNF. However, patient was discharged home at his request. He followed up with his PCP today and overall seemed to be doing well. He reports that around 13:00 he was in his garage and tripped and fell, striking his head on the concrete. He reports headache since then. No additional complaints. Per discussion with ER provider, patient had multiple syncopal episodes at home. EMS as called and he had a second witnessed episode of syncope then ALS was called for hospital transport when he had a third episode of syncope. He denies fevers/chills/nausea/vomiting/diarrhea or constipation since returning home. He reports adherence to his Levaquin regimen. He reports poor appetite and po intake since returning home. He drinks appx 5 12 oz beers per day now. On arrival to the ER he was found to be afebrile, mildly hypotensive at 93/59, respiratory status stable. He was administered IVF with improvement in BP ER Course: Vancomycin 2gm, Zosyn 4.5gm, Mag 1gm Discharge Data Allergies Allergy/AdvReac Type Severity Reaction Status Date / Time No Known Allergies Allergy Verified 01/24/19 22:54 Consultations 01/24/19 23:32 ED Decision to Admit Stat 01/27/19 20:07 Consult Infectious Diseases Routine 01/30/19 13:08 Consult Nephrology Routine Ordered Studies 01/24/19 22:11 CT head/brain wo con Urgent 01/28/19 08:07 MR brain wo/w con Routine 01/30/19 16:52 CT chest wo con Routine Discharge Plan Discharge Items Patient Disposition: Home - Self-Care Reason For Visit: SYNCOPE Discharge Diagnosis: Hyponatremia and syncope (fainting) secondary to chlorthalidone use and SIADH Chronic prostatitis Activity: Resume your previous activity Non-emergency contact: Primary Care Provider and Supervisor [facility] Department Call non-emergency contact if: you have any medication questions Follow-up/Referrals: Yonatan Lindsay MD [Physician] - Manuel Thomas DO [Physician] - 02/12/19 2:20 pm (Please, follow up at [facility] Office with Dr. Thomas on SundayFebruary 12 at 2:20 pm. *If you need to change this appointment, call the office at [phone].) Russell Dang DO [Primary Care Provider] - 02/04/19 9:15 am (Please, follow up at Dr. Dang's office with his associate, Janis MOREL, on SundayFebruary 04 at 9:15 am. *If you need to change this appointment, call the office at [phone].) Diet: Regular Fluids: 1000ml (4 cups) Addtl Attending Provider Instructions: You were diagnosed with syncope. Suspect this was due to taking chlorthalidone which was not prescribed for you (suspect this medication is your son's). This caused your blood pressure to drop significantly causing you to lose consciousness. In addition this reduced you sodium and potassium levels further on a background of chronic SIADH, Lasix and alcohol use. We have re-prescribed Lasix at a smaller dose to help with your sodium levels, please call your PCP if you feel light headed with this reduced dose. Please continue prednisone tapering dose for COPD exacerbation and usual maintenance inhalers (Incruse ellipta and Advair) Please continue sodium chloride tablets for SIADH (syndrome of inappropriate anti-diuretic hormone). Please also retrict fluids to 1000ml a day. Your antibiotics prescribed during your last admission for chronic prostatitis were changed to Bactrim as advised by infectious disease. Appointment to be arranged for follow up with this. We also reduced your gabapentin as per your neurologists outpatient plan to help with leg swelling. Pending Studies at Discharge: No Stand-Alone Forms: My [facility], Smoking Cessation Medications and DC Order Prescriptions: New sulfamethoxazole-trimethoprim 800-160 mg Tablet 1 tab PO Q12 14 Days Qty: 28 RF: 0 tamsulosin 0.4 mg Capsule 0.4 mg PO QAM Qty: 30 RF: 0 sodium chloride 1 gram Tablet 1 g PO QID Qty: 120 RF: 0 sumatriptan succinate 50 mg Tablet See Rx Instructions .ROUTE .COMPLEX PRN (Reason: migraine headache) Qty: 14 RF: 0 prednisone 10 mg tablet See Rx Instructions .ROUTE .COMPLEX Qty: 6 RF: 0 furosemide [Lasix] 20 mg tablet 10 mg PO DAILY Qty: 30 RF: 0 Continued albuterol sulfate 90 mcg/actuation HFA aerosol inhaler 1 - 2 puff INHALATION Q4H PRN (Reason: Shortness Of Breath) Qty: 18 RF: 1 atorvastatin 40 mg tablet 40 mg PO HS RF: 0 folic acid 400 mcg tablet 0.4 mg PO DAILY RF: 0 oxcarbazepine 300 mg tablet 300 mg PO BID RF: 0 vitamin B complex-folic acid 2,000 mcg capsule 1 cap PO DAILY RF: 0 venlafaxine 150 mg capsule,extended release 24hr 150 mg PO DAILY RF: 0 pregabalin 100 mg capsule 100 mg PO BID Qty: 60 RF: 0 metoprolol succinate 50 mg tablet extended release 24 hr 50 mg PO DAILY Qty: 30 RF: 0 thiamine HCl (vitamin B1) [Vitamin B-1] 100 mg Tablet 100 mg PO QAM Qty: 30 RF: 0 Mariola-Sequels (iron-vit c) 200 mg (65 mg iron)-25 mg tablet extended release 1 tab PO DAILY Qty: 30 RF: 1 Incruse Ellipta 62.5 mcg/actuation Blister With Device 1 inh inhalation DAILY RF: 0 Changed fluticasone propion-salmeterol [Advair Diskus] 500-50 mcg/dose blister with device 1 inh inhalation BID Qty: 60 RF: 0 gabapentin 100 mg capsule 100 mg PO TID Qty: 180 RF: 0 Discontinued metoprolol succinate [Toprol XL] 25 mg tablet extended release 24 hr 25 mg PO DAILY RF: 0 lisinopril 10 mg tablet 10 mg PO DAILY RF: 0 levofloxacin 750 mg Tablet 750 mg PO DAILY@1100 Qty: 11 RF: 0 furosemide 20 mg tablet 20 mg PO BID RF: 0 Discharge Orders: Discharge Order (Routine); Ordered 02/01/19 Ordered By: Kannan Shah Admission Data Admit Date/Time: 01/25/19 09:52 Attending Provider: Kannan Shah Admit Provider: Lisette Lira Primary Care Provider: Russell Dang Other Providers: [facility] ; Lisette Lira ; Yonatan Lindsay ; Ryan Machuca Other Interventions: Discharge Summary Assessment (RN) Last Done: 02/01/19 14:08 DC Date/Time DO NOT enter until pt leaves facility: 02/01/19 14:46
== END 2019-02-01 14:46 | disposition home health service (06) | DRG 690 ==
LOC: ED 21:51 → 2S 21:51 → SUATTDRO 01-25 00:33 → 2S 01-25 01:03 → SUATTDRO 01-25 09:52 → 2N 01-27 15:33

== ENCOUNTER 2021-03-08 18:07 | Inpatient (IN) ==
[~2021-03-08 18:07] MED LIST changes: -ACET-1311 PO; -ATOR-24 PO; -B-COCAP2 PO; -FLV400 PO; -INDO-24 PO; +KETAMINE HCL INJ 50 MG/ML 10 ML VIAL IV ONE; -LISI-461 PO; -METO25TA3 PO; -NICO21DI35 PO; -OXCA300T4 PO; -PREG1CAP28 PO; +ROCURONIUM BROMIDE 10 MG/ML 5 ML VIAL IV ONE; -SDMC1 PO; -VENL75CA73 PO; -VNTHFA/IN INH
[2021-03-08] MEDS ORDERED: RAPID SEQUENCE INDUCTION BAG ONE ×2 (18:13→18:14)
[2021-03-08] MEDS ORDERED: ALBUT/IPRATROP 3MG/0.5MG NEB 3 ML VIAL NEB ONE (18:27)
[2021-03-08] MEDS ORDERED: dexAMETHasone**PF** 10 MG/ML VIAL IV ONE (18:27)
[2021-03-08] MEDS ORDERED: PROPOFOL IV EMULSION 10 MG/ML 100 ML VIAL IV ONE (18:38)
[2021-03-08 18:48] LABS: Basophils # (auto) 0.03 K/uL (0-0.2); Basophils % (auto) 0.3 %; Eosinophils % (auto) 9.2 %; Hematocrit (blood only) 38.9 % (42-52); Hemoglobin 11.8 g/dL (14.0-18.0); Immature Granulocytes # (auto) 0.02 K/uL (0.00-0.02); Immature Granulocytes % (auto) 0.2 %; Lymphocytes # (auto) 0.83 K/uL (1.2-3.4); Lymphocytes % (auto) 7.6 %; Mean Corpuscular Hemoglobin 29.6 pg (25-34); Mean Corpuscular Hgb Conc 30.3 g/dL (32-36); Mean Corpuscular Volume 97.7 fL (80-100); Mean Platelet Volume 9.7 fL (7.4-10.4); Monocytes # (auto) 0.66 K/uL (0.11-0.59); Monocytes % (auto) 6.1 %; Neutrophils # (auto) 8.35 K/uL (1.4-6.5); Neutrophils % (auto) 76.6 %; Platelet Count 300 K/uL (130-400); RDW Coefficient of Variation 14.3 % (11.5-14.5); RDW Standard Deviation 51.6 fL (36.4-46.3); Red Blood Count 3.98 M/uL (4.7-6.1); White Blood Count 10.89 K/uL (4.8-10.8)
--- NOTE | 2021-03-08 18:48 | Emergency Department Note ---
Impression & Plan Respiratory failure, Acute exacerbation of chronic obstructive pulmonary disease, Pneumonia, Acute alteration in mental status, Dissection, vertebral artery, Acute respiratory acidosis ED Provider Note NAME: DENAE LAL AGE: 70 SEX: M : 1950 ARRIVES VIA: Ambulance INFORMANT: EMS, the patient's family, the patient's significant other ED PROVIDER(S): Salas Allen DO CHIEF COMPLAINT: Shortness of breath HPI: The patient is a 70-year-old male who presented to the emergency department for an evaluation of shortness of breath. The patient was obtunded and could not give any history whatsoever. History was obtained from prehospital personnel as well as the patient's significant other. Apparently the patient has a history of tobacco use but quit smoking almost a year and a half ago. The patient himself started having shortness of breath earlier in the day. He was noted to be obtunded so his significant other called 911. The patient has been vaccinated against COVID-19. She denies any fever but he has been having swelling in his legs greater than usual. He has had no nausea or vomiting. There is no reported fever or coughing. The patient has a history of COPD. He does still drink alcohol but only minimally. The patient was very obtunded upon arrival and his significant other stated that he would want to have everything done including intubation. ROS: See above HPI for pertinent positives & negatives. A total of 10 systems reviewed and were otherwise negative. PAST MEDICAL HISTORY: See Below PAST SURGICAL HISTORY: See Below FAMILY HISTORY: See Below SOCIAL HISTORY: See Below HOME MEDICATIONS: See Below ALLERGIES: See Below VITALS: See Below PHYSICAL EXAMINATION: GENERAL: The patient is obtunded. He is not following commands. He is moving extremities but not purposefully. EYES: The conjunctivae are clear. The pupils are dilated but reactive. EARS, NOSE, MOUTH AND THROAT: The nose is without any evidence of any deformity. Mucous membranes are dry. NECK: The neck is nontender and supple. RESPIRATORY: Shallow and ineffective respirations were noted. The patient was not moving much air. Diminished breath sounds are noted throughout. CARDIOVASCULAR: Tachycardic and irregular heart sounds were noted to auscultation. GASTROINTESTINAL: The abdomen is soft. Abdomen is nontender. MUSCULOSKELETAL/EXTREMITIES: There is no evidence of gross deformity full range of motion is noted in the hips and shoulders. SKIN: Pedal edema was noted bilaterally. Skin was cool. NEUROLOGIC: Patient is awake and looking around the room but he does not follow commands. He does not answer questions. I am unable to assess orientation. MEDICAL DECISION MAKING: The patient is a 70-year-old male who has a history of COPD who presented to the emergency department for an evaluation of altered mental status and difficulty breathing. The patient was received in the emergency department in extremis. The patient was felt to be in respiratory distress and was intubated almost immediately. The patient was not able to follow commands. His neurologic exam was very difficult to follow. According to the prehospital personnel as well as family the patient had an elevated blood pressure and there was concern that this could be a neurologic event. He was also having an abnormal cardiac rhythm and was felt to be in atrial fibrillation. I discussed the patient's laboratory and radiographic studies with his family member. The patient was treated with IV fluids bronchodilators IV steroids and IV antibiotics in the emergency department. He also required endotracheal intubation. The patient's vital signs were reevaluated multiple times. I discussed his case with the on-call [facility]. They've agreed to evaluate the patient in the emergency department for further management and disposition. Triage Nursing notes reviewed. Prior medical records reviewed Vital Signs: reviewed and remarkable for tachypnea. Differential diagnosis: Reactive airway disease, pneumonia, pneumothorax, COPD, CHF, infections, cardiac ischemia, pulmonary embolism, musculoskeletal, gastrointestinal, as well as other pathologies. ER treatment provided: See below Diagnostics interpreted by me: ECG: EKG was obtained in the emergency department. My interpretation is normal sinus rhythm at 96 bpm. There was no ectopy. There was no acute ST segment abnormalities noted. This was compared to a tracing from January [id number]. No significant changes were noted. Cardiac Monitoring: An order was placed for continuous cardiac monitoring. The monitor shows a rate of 85 bpm with sinus rhythm. Laboratory studies: As stated above and show below. Imaging studies: See below Consultation(s): I discussed this case with Dr. Fox who is on-call for the [facility] group. ED COURSE: Procedures: Endotracheal Intubation Indication respiratory distress. The patient was on 100% oxygen via NRB prior to the procedure. Suction, airway equipment, RSI drugs, respiratory equipment, and appropriate personnel were prepared prior to the initiation of the procedure. A time out was taken. Induction was performed with ketamine and rocuronium After observing the clinical benefit of the medications, the airway was easily visualized utilizing a glide scope. A 8.0 size ETT tube was placed atraumatically to 24 cm using standard technique. The cuff inflated without signs of malfunction. There were bilateral breath sounds, positive colormetric change, no gastric sounds, a good capnography waveform, and post procedure pulse oximetry was 98%. Post intubation sedation and paralysis was administered using propofol. There were no compl ications. PDMP:reviewed and no issues Critical Care: I have personally spent greater than 55 minutes of critical care time in the direct management of this patient. This includes bedside care, interpretation of diagnostic studies, and testing, discussion with consultants, patient, and family members, and other required patient management activities. This 55 minutes is in excess of all separately billable procedures. Past Med/Surg History Medical History Acute hyponatremia Alcohol abuse Alcohol withdrawal Bacteremia Cellulitis Colitis COPD (chronic obstructive pulmonary disease) COPD exacerbation Delirium tremens DVT prophylaxis Face lacerations Gout Hyperlipidemia Hypertension Hypokalemia Hypomagnesemia Hyponatremia Hypoxemia Incarcerated left inguinal hernia Infection of spine DX 5 YEARS AGO (TREATED AT [facility]) Klebsiella pneumoniae infection Low back pain Metabolic encephalopathy Migraine Neuropathy On home oxygen therapy 3L CONT. Orthostasis Osteoarthritis Respiratory failure Right hand fracture Right inguinal hernia Seizure Seizure LAST EPISODE LAST MONTH (HOSPITALIZED AT [facility]) ? ETIOLOGY FOLLOWED BY DR. HIGHTOWER Sepsis associated hypotension Tachycardia Tremor BILAT HANDS AND A LITTLE IN BILAT. FEET UTI (urinary tract infection) Surgical History H/O tooth extraction Lower teeth on 04/23/2018 H/O tooth extraction History of colonoscopy History of open reduction and internal fixation (ORIF) procedure FEMUR ?SIDE S/P foot surgery RT/LEFT (HARDWARE INTACT) Family History Father Hypertension Aneurysm Mother Swelling Uncle Myocardial infarction Other No significant family history Denies family history of Ovarian cancer Prostate cancer Breast cancer Colorectal cancer Social History Smoking Status: Unknown if ever smoked Age Started Using Tobacco: 14; Age Quit Using Tobacco: 68; packs per day: 1; Cigarettes Per Day: 10; Second Hand Exposure: No; Hx Alcohol Use: Yes Alcohol type: beer Alcohol Intake Frequency Comment: 8+ per day Hx Substance Use: No Preferred Language: Irish Communication Ability: Impaired Visual Impairment: Limited Hearing Ability: Normal Aircraft Instrument Tester Required: No Beliefs That Will Affect Care: None marital status: Current Living Situation: Spouse current occupational status: retired Feels Safe at Home: Yes Childhood Exposure to Second-Hand Smoke: Yes Dental Care, Regularly: No Physical Activity Frequency: Does not Exercise Seatbelt Use: always Sunscreen Use: No Assistive Devices: Cane, Denture - Upper, Denture - Lower, Glasses, Oxygen - Continuous and Walker Allergies Allergies Allergy/AdvReac Type Severity Reaction Status Date / Time No Known Allergies Allergy Verified 03/08/21 19:02 Home Meds Home Medications Medication Instructions Recorded Confirmed folic acid 400 mcg tablet 0.4 mg PO QAM 12/13/18 03/08/21 vitamin B complex-folic acid 2,000 1 cap PO DAILY 12/13/18 03/08/21 mcg capsule Lactobacills gasseri-Bifidobac 1 cap PO QAM 02/25/19 03/08/21 bifidum,longum 1.5 billion cell capsule (Probiotic Colon Support) cyanocobalamin (vitamin B-12) 1,000 mcg PO DAILY 03/08/21 03/08/21 1,000 mcg tablet (Vitamin B-12) Previous Rx's Medication Instructions Recorded ferrous fumarate 200 mg (65 mg 1 tab PO DAILY #30 tab 01/21/19 iron)-vit C 25 mg tablet,extend release (Mariola-Sequels (iron-vit c)) magnesium oxide 400 mg (241.3 mg 400 mg PO DAILY #30 tab 03/04/19 magnesium) tablet sumatriptan succinate 50 mg tablet 50 mg PO Q2H PRN #9 tab MDD 4 05/29/19 tablets/24hrs albuterol sulfate 90 mcg/actuation 1 - 2 puff INHALATION Q4H PRN #54 04/13/20 aerosol inhaler gm metoprolol succinate 50 mg 50 mg PO DAILY #30 tab 09/01/20 tablet,extended release 24 hr sodium chloride 1 gram tablet 1 g PO BID #180 tab 09/06/20 atorvastatin 40 mg tablet 40 mg PO DAILY #90 tab 09/17/20 furosemide 20 mg tablet (Lasix) 20 mg PO Q OTHER DAY #15 tab 10/05/20 ipratropium 0.5 mg-albuterol 3 mg 3 ml INH Q4H PRN #540 ml 12/22/20 (2.5 mg base)/3 mL nebulization soln nebulizer accessories #1 ea 12/22/20 BiPap Machine See Rx Instructions .ROUTE 01/04/21 .COMPLEX #1 ea fluticasone 500 mcg-salmeterol 50 1 inh INHALATION BID #60 ea 01/04/21 mcg/dose blistr powdr for inhalation (Advair Diskus) umeclidinium 62.5 mcg/actuation 1 inh INHALATION DAILY #30 ea 01/04/21 blister powder for inhalation (Incruse Ellipta) venlafaxine 150 mg 150 mg PO QAM 90 Days #90 cap 01/07/21 capsule,extended release 24 hr pregabalin 100 mg capsule 100 mg PO BID #60 cap 03/01/21 Results & Data (ED) Vital Signs Vital Signs - 24 hr 03/08/21 18:27 03/08/21 18:30 03/08/21 18:45 Temperature Temperature Source Pulse Rate 120 H 117 H 110 H Pulse Rate from SpO2 Sensor 119 H 117 H 111 H Respiratory Rate 23 20 22 Respiratory Effort / Characteristics Blood Pressure 118/86 Blood Pressure Mean 96 Pulse Oximetry 97 97 98 Oxygen Delivery Method Mechanical Vent Mechanical Vent Mechanical Vent Oxygen Flow Rate Fraction of Inspired Oxygen 65 65 65 Sepsis Recent Fever Within 48 Hours Sepsis New/Unexplained Change in Mental Status Sepsis Action Taken by Nursing End-Tidal CO2 77 03/08/21 18:58 03/08/21 19:00 03/08/21 19:15 Temperature 36.8 C Temperature Source Oral Pulse Rate 80 103 H 103 H Pulse Rate from SpO2 Sensor 105 H 103 H Respiratory Rate 18 20 20 Respiratory Effort / Characteristics Gasping/Agonal Labored Blood Pressure Blood Pressure Mean Pulse Oximetry 94 98 98 Oxygen Delivery Method Non-rebreather Mechanical Vent Mechanical Vent Oxygen Flow Rate 15 Fraction of Inspired Oxygen 65 65 Sepsis Recent Fever Within 48 Hours No Sepsis New/Unexplained Change in Mental Status Yes Sepsis Action Taken by Nursing No Action Required End-Tidal CO2 74 72 03/08/21 19:20 03/08/21 19:30 03/08/21 19:31 Temperature Temperature Source Pulse Rate 99 H 95 H Pulse Rate from SpO2 Sensor 96 H Respiratory Rate 22 22 Respiratory Effort / Characteristics Blood Pressure 157/94 H 151/90 H Blood Pressure Mean 115 110 Pulse Oximetry 96 97 Oxygen Delivery Method Mechanical Vent Mechanical Vent Mechanical Vent Oxygen Flow Rate Fraction of Inspired Oxygen 65 Sepsis Recent Fever Within 48 Hours Sepsis New/Unexplained Change in Mental Status Sepsis Action Taken by Nursing End-Tidal CO2 64 03/08/21 19:40 03/08/21 20:00 03/08/21 20:15 Temperature Temperature Source Pulse Rate 93 H 88 92 H Pulse Rate from SpO2 Sensor Respiratory Rate 22 22 22 Respiratory Effort / Characteristics Blood Pressure 142/83 H 143/88 H 134/88 Blood Pressure Mean 102 106 103 Pulse Oximetry 98 100 100 Oxygen Delivery Method Mechanical Vent Mechanical Vent Oxygen Flow Rate Fraction of Inspired Oxygen Sepsis Recent Fever Within 48 Hours Sepsis New/Unexplained Change in Mental Status Sepsis Action Taken by Nursing End-Tidal CO2 60 03/08/21 20:30 03/08/21 20:45 03/08/21 21:00 Temperature Temperature Source Pulse Rate 87 85 85 Pulse Rate from SpO2 Sensor Respiratory Rate 20 20 20 Respiratory Effort / Characteristics Blood Pressure 157/94 H 153/88 H 131/85 Blood Pressure Mean 115 109 100 Pulse Oximetry 100 100 100 Oxygen Delivery Method Oxygen Flow Rate Fraction of Inspired Oxygen Sepsis Recent Fever Within 48 Hours Sepsis New/Unexplained Change in Mental Status Sepsis Action Taken by Nursing End-Tidal CO2 56 55 55 03/08/21 21:15 03/08/21 21:30 03/08/21 21:45 Temperature Temperature Source Pulse Rate 82 83 85 Pulse Rate from SpO2 Sensor Respiratory Rate 20 20 20 Respiratory Effort / Characteristics Blood Pressure 126/97 140/87 130/85 Blood Pressure Mean 106 104 100 Pulse Oximetry 100 100 100 Oxygen Delivery Method Oxygen Flow Rate Fraction of Inspired Oxygen Sepsis Recent Fever Within 48 Hours Sepsis New/Unexplained Change in Mental Status Sepsis Action Taken by Nursing End-Tidal CO2 52 50 52 03/08/21 22:00 03/08/21 22:15 03/08/21 22:30 Temperature Temperature Source Pulse Rate 86 86 81 Pulse Rate from SpO2 Sensor Respiratory Rate 20 2 L 20 Respiratory Effort / Characteristics Blood Pressure 139/74 139/81 145/89 H Blood Pressure Mean 95 100 107 Pulse Oximetry 100 100 100 Oxygen Delivery Method Oxygen Flow Rate Fraction of Inspired Oxygen Sepsis Recent Fever Within 48 Hours Sepsis New/Unexplained Change in Mental Status Sepsis Action Taken by Nursing End-Tidal CO2 57 58 55 03/08/21 22:40 03/08/21 22:45 03/08/21 23:00 Temperature Temperature Source Pulse Rate 82 85 Pulse Rate from SpO2 Sensor 82 Respiratory Rate 28 H 28 H 28 H Respiratory Effort / Characteristics Blood Pressure 146/85 H Blood Pressure Mean 105 Pulse Oximetry 100 98 Oxygen Delivery Method Mechanical Vent Oxygen Flow Rate Fraction of Inspired Oxygen 40 Sepsis Recent Fever Within 48 Hours Sepsis New/Unexplained Change in Mental Status Sepsis Action Taken by Nursing End-Tidal CO2 53 49 03/08/21 23:15 03/08/21 23:22 03/08/21 23:30 Temperature Temperature Source Pulse Rate 84 84 85 Pulse Rate from SpO2 Sensor 84 84 Respiratory Rate 30 H 28 H 28 H Respiratory Effort / Characteristics Blood Pressure 126/81 Blood Pressure Mean 96 Pulse Oximetry 99 98 99 Oxygen Delivery Method Mechanical Vent Mechanical Vent Oxygen Flow Rate Fraction of Inspired Oxygen 40 Sepsis Recent Fever Within 48 Hours Sepsis New/Unexplained Change in Mental Status Sepsis Action Taken by Nursing End-Tidal CO2 38 45 48 Home Medications Current Medication List: was personally reviewed by me Laboratory Data Attestation: I reviewed the patient's lab results. Result diagrams: 03/08/21 18:33 03/08/21 18:33 Lab Results 03/08/21 03/08/21 03/08/21 Range/Units 18:33 18:33 18:33 WBC (4.8-10.8) K/uL RBC (4.7-6.1) M/uL Hgb (14.0-18.0) g/dL Hct (42-52) % MCV (80-100) fL MCH (25-34) pg MCHC (32-36) g/dL RDW Std Deviation (36.4-46.3) fL RDW Coeff of Jem (11.5-14.5) % Plt Count (130-400) K/uL MPV (7.4-10.4) fL Immature Gran % (Auto) % Neut % (Auto) % Lymph % (Auto) % [place] % (Auto) % Eos % (Auto) % Baso % (Auto) % Neut # (Auto) (1.4-6.5) K/uL Lymph # (Auto) (1.2-3.4) K/uL [place] # (Auto) (0.11-0.59) K/uL Eos # (Auto) (0-0.5) K/uL Baso # (Auto) (0-0.2) K/uL Immature Gran # (Auto) (0.00-0.02) K/uL ESR 69 H (0-20) mm/hr PT (9.0-12.0) Seconds INR (0.9-1.1) APTT (21.0-31.0) Seconds PTT Ratio ABG pH (7.35-7.45) ABG pCO2 (35-46) mmHg ABG pO2 (80-95) mmHg ABG HCO3 (19-24) mmol/L ABG O2 Saturation (90-95) % ABG Base Excess (-9-1.8) mEq/L Chris Test (Pos) VBG pH (7.36-7.41) VBG pCO2 (38-50) mmHg VBG pO2 mmHg VBG HCO3 mmol/L VBG O2 Saturation % VBG Base Excess mEq/L Barometric Pressure mm/Hg Oxygen Given Sodium 138 (136-145) mmol/L Potassium 4.6 (3.5-5.1) mmol/L Chloride 104 (98-107) mmol/L Carbon Dioxide 32 (21-32) mmol/L Anion Gap 2.0 L (3-11) BUN 15 (7-18) mg/dl Creatinine 0.83 (0.6-1.4) mg/dl Est Cr Clr Drug Dosing 93.5 ml/min Est GFR ( Amer) 104.8 ml/min Est GFR (Non-Af Amer) 90.4 ml/min BUN/Creatinine Ratio 18.4 (10-20) Glucose 188 H (70-99) mg/dl Lactate (0.4-2.0) mmol/L Calcium 8.9 (8.5-10.1) mg/dl Magnesium 2.1 (1.8-2.4) mg/dl Total Bilirubin 0.4 (0.2-1) mg/dl AST 21 (15-37) U/L ALT 24 (12-78) Alkaline Phosphatase 120 H (45-117) U/L Troponin I < 0.015 (0-0.045) ng/ml C-Reactive Protein 0.51 H (0-0.29) mg/dl Total Protein 8.1 (6.4-8.2) gm/dl Albumin 3.4 (3.4-5.0) gm/dl Globulin 4.7 H (2.5-4.0) gm/dl Albumin/Globulin Ratio 0.7 L (0.9-2) Procalcitonin < 0.05 (0-0.5) ng/ml Urine Color Urine Appearance (Clear) Urine pH (4.5-7.5) Ur Specific Sciota (1.000-1.030) Urine Protein (Negative) Urine Glucose (UA) (Negative) Urine Ketones (Negative) Urine Blood (Negative) Urine Nitrite (Negative) Urine Bilirubin (Negative) Urine Urobilinogen (Negative) Ur Leukocyte Esterase (Negative) Urine WBC (Auto) (0-5) /hpf Urine RBC (Auto) (0-4) /hpf U Hyaline Cast (Auto) (0-5) /lpf U Epithel Cells (Auto) (0-5) /lpf Urine Bacteria (Auto) (Negative) Ethyl Alcohol mg/dL (0-3) mg/dl Adenovirus (PCR) (NotDetected) B. pertussis DNA (PCR) (NotDetected) B.parapertussis DNA PCR (NotDetected) C. pneumoniae DNA (PCR) (NotDetected) Coronavirus OC43 (PCR) (NotDetected) Coronavirus HKU1 (PCR) (NotDetected) Coronavirus 229E (PCR) (NotDetected) SARS-CoV-2 (PCR) (NotDetected) Coronavirus NL63 (PCR) (NotDetected) Human Metapneumovir PCR (NotDetected) Influenza Type A (PCR) (NotDetected) Influenza Type B (PCR) (NotDetected) M. pneumoniae (PCR) (NotDetected) Parainfluenza 1 (PCR) (NotDetected) Parainfluenza 2 (PCR) (NotDetected) Parainfluenza 3 (PCR) (NotDetected) Parainfluenza 4 (PCR) (NotDetected) RSV (PCR) (NotDetected) Entero/Rhino (PCR) (NotDetected) 03/08/21 03/08/21 03/08/21 Range/Units 18:33 18:33 18:33 WBC 10.89 H (4.8-10.8) K/uL RBC 3.98 L (4.7-6.1) M/uL Hgb 11.8 L (14.0-18.0) g/dL Hct 38.9 L (42-52) % MCV 97.7 (80-100) fL MCH 29.6 (25-34) pg MCHC 30.3 L (32-36) g/dL RDW Std Deviation 51.6 H (36.4-46.3) fL RDW Coeff of Jem 14.3 (11.5-14.5) % Plt Count 300 (130-400) K/uL MPV 9.7 (7.4-10.4) fL Immature Gran % (Auto) 0.2 % Neut % (Auto) 76.6 % Lymph % (Auto) 7.6 % Cors[place] % (Auto) 6.1 % Eos % (Auto) 9.2 % Baso % (Auto) 0.3 % Neut # (Auto) 8.35 H (1.4-6.5) K/uL Lymph # (Auto) 0.83 L (1.2-3.4) K/uL [place] # (Auto) 0.66 H (0.11-0.59) K/uL Eos # (Auto) 1.00 H (0-0.5) K/uL Baso # (Auto) 0.03 (0-0.2) K/uL Immature Gran # (Auto) 0.02 (0.00-0.02) K/uL ESR (0-20) mm/hr PT 10.3 (9.0-12.0) Seconds INR 1.0 (0.9-1.1) APTT 23.5 (21.0-31.0) Seconds PTT Ratio 0.9 ABG pH (7.35-7.45) ABG pCO2 (35-46) mmHg ABG pO2 (80-95) mmHg ABG HCO3 (19-24) mmol/L ABG O2 Saturation (90-95) % ABG Base Excess (-9-1.8) mEq/L Chris Test (Pos) VBG pH 7.10 L (7.36-7.41) VBG pCO2 109 H (38-50) mmHg VBG pO2 388 mmHg VBG HCO3 33 mmol/L VBG O2 Saturation 99.8 % VBG Base Excess 0.4 mEq/L Barometric Pressure 735.6 mm/Hg Oxygen Given Sodium (136-145) mmol/L Potassium (3.5-5.1) mmol/L Chloride (98-107) mmol/L Carbon Dioxide (21-32) mmol/L Anion Gap (3-11) BUN (7-18) mg/dl Creatinine (0.6-1.4) mg/dl Est Cr Clr Drug Dosing ml/min Est GFR ( Amer) ml/min Est GFR (Non-Af Amer) ml/min BUN/Creatinine Ratio (10-20) Glucose (70-99) mg/dl Lactate (0.4-2.0) mmol/L Calcium (8.5-10.1) mg/dl Magnesium (1.8-2.4) mg/dl Total Bilirubin (0.2-1) mg/dl AST (15-37) U/L ALT (12-78) Alkaline Phosphatase (45-117) U/L Troponin I (0-0.045) ng/ml C-Reactive Protein (0-0.29) mg/dl Total Protein (6.4-8.2) gm/dl Albumin (3.4-5.0) gm/dl Globulin (2.5-4.0) gm/dl Albumin/Globulin Ratio (0.9-2) Procalcitonin (0-0.5) ng/ml Urine Color Urine Appearance (Clear) Urine pH (4.5-7.5) Ur Specific [place] (1.000-1.030) Urine Protein (Negative) Urine Glucose (UA) (Negative) Urine Ketones (Negative) Urine Blood (Negative) Urine Nitrite (Negative) Urine Bilirubin (Negative) Urine Urobilinogen (Negative) Ur Leukocyte Esterase (Negative) Urine WBC (Auto) (0-5) /hpf Urine RBC (Auto) (0-4) /hpf U Hyaline Cast (Auto) (0-5) /lpf U Epithel Cells (Auto) (0-5) /lpf Urine Bacteria (Auto) (Negative) Ethyl Alcohol mg/dL (0-3) mg/dl Adenovirus (PCR) (NotDetected) B. pertussis DNA (PCR) (NotDetected) B.parapertussis DNA PCR (NotDetected) C. pneumoniae DNA (PCR) (NotDetected) Coronavirus OC43 (PCR) (NotDetected) Coronavirus HKU1 (PCR) (NotDetected) Coronavirus 229E (PCR) (NotDetected) SARS-CoV-2 (PCR) (NotDetected) Coronavirus NL63 (PCR) (NotDetected) Human Metapneumovir PCR (NotDetected) Influenza Type A (PCR) (NotDetected) Influenza Type B (PCR) (NotDetected) M. pneumoniae (PCR) (NotDetected) Parainfluenza 1 (PCR) (NotDetected) Parainfluenza 2 (PCR) (NotDetected) Parainfluenza 3 (PCR) (NotDetected) Parainfluenza 4 (PCR) (NotDetected) RSV (PCR) (NotDetected) Entero/Rhino (PCR) (NotDetected) 03/08/21 03/08/21 03/08/21 Range/Units 18:33 18:38 19:05 WBC (4.8-10.8) K/uL RBC (4.7-6.1) M/uL Hgb (14.0-18.0) g/dL Hct (42-52) % MCV (80-100) fL MCH (25-34) pg MCHC (32-36) g/dL RDW Std Deviation (36.4-46.3) fL RDW Coeff of Jem (11.5-14.5) % Plt Count (130-400) K/uL MPV (7.4-10.4) fL Immature Gran % (Auto) % Neut % (Auto) % Lymph % (Auto) % [place] % (Auto) % Eos % (Auto) % Baso % (Auto) % Neut # (Auto) (1.4-6.5) K/uL Lymph # (Auto) (1.2-3.4) K/uL [place] # (Auto) (0.11-0.59) K/uL Eos # (Auto) (0-0.5) K/uL Baso # (Auto) (0-0.2) K/uL Immature Gran # (Auto) (0.00-0.02) K/uL ESR (0-20) mm/hr PT (9.0-12.0) Seconds INR (0.9-1.1) APTT (21.0-31.0) Seconds PTT Ratio ABG pH (7.35-7.45) ABG pCO2 (35-46) mmHg ABG pO2 (80-95) mmHg ABG HCO3 (19-24) mmol/L ABG O2 Saturation (90-95) % ABG Base Excess (-9-1.8) mEq/L Chris Test (Pos) VBG pH (7.36-7.41) VBG pCO2 (38-50) mmHg VBG pO2 mmHg VBG HCO3 mmol/L VBG O2 Saturation % VBG Base Excess mEq/L Barometric Pressure mm/Hg Oxygen Given Sodium (136-145) mmol/L Potassium (3.5-5.1) mmol/L Chloride (98-107) mmol/L Carbon Dioxide (21-32) mmol/L Anion Gap (3-11) BUN (7-18) mg/dl Creatinine (0.6-1.4) mg/dl Est Cr Clr Drug Dosing ml/min Est GFR ( Amer) ml/min Est GFR (Non-Af Amer) ml/min BUN/Creatinine Ratio (10-20) Glucose (70-99) mg/dl Lactate 0.6 (0.4-2.0) mmol/L Calcium (8.5-10.1) mg/dl Magnesium (1.8-2.4) mg/dl Total Bilirubin (0.2-1) mg/dl AST (15-37) U/L ALT (12-78) Alkaline Phosphatase (45-117) U/L Troponin I (0-0.045) ng/ml C-Reactive Protein (0-0.29) mg/dl Total Protein (6.4-8.2) gm/dl Albumin (3.4-5.0) gm/dl Globulin (2.5-4.0) gm/dl Albumin/Globulin Ratio (0.9-2) Procalcitonin (0-0.5) ng/ml Urine Color Yellow Urine Appearance Clear (Clear) Urine pH 5.0 (4.5-7.5) Ur Specific [place] 1.012 (1.000-1.030) Urine Protein 1+ H (Negative) Urine Glucose (UA) Negative (Negative) Urine Ketones Negative (Negative) Urine Blood Negative (Negative) Urine Nitrite Negative (Negative) Urine Bilirubin Negative (Negative) Urine Urobilinogen Negative (Negative) Ur Leukocyte Esterase Negative (Negative) Urine WBC (Auto) 0 (0-5) /hpf Urine RBC (Auto) 0-4 (0-4) /hpf U Hyaline Cast (Auto) 1-5 (0-5) /lpf U Epithel Cells (Auto) 10-20 H (0-5) /lpf Urine Bacteria (Auto) Negative (Negative) Ethyl Alcohol mg/dL < 3.0 (0-3) mg/dl Adenovirus (PCR) (NotDetected) B. pertussis DNA (PCR) (NotDetected) B.parapertussis DNA PCR (NotDetected) C. pneumoniae DNA (PCR) (NotDetected) Coronavirus OC43 (PCR) (NotDetected) Coronavirus HKU1 (PCR) (NotDetected) Coronavirus 229E (PCR) (NotDetected) SARS-CoV-2 (PCR) (NotDetected) Coronavirus NL63 (PCR) (NotDetected) Human Metapneumovir PCR (NotDetected) Influenza Type A (PCR) (NotDetected) Influenza Type B (PCR) (NotDetected) M. pneumoniae (PCR) (NotDetected) Parainfluenza 1 (PCR) (NotDetected) Parainfluenza 2 (PCR) (NotDetected) Parainfluenza 3 (PCR) (NotDetected) Parainfluenza 4 (PCR) (NotDetected) RSV (PCR) (NotDetected) Entero/Rhino (PCR) (NotDetected) 03/08/21 03/08/21 Range/Units 19:05 22:15 WBC (4.8-10.8) K/uL RBC (4.7-6.1) M/uL Hgb (14.0-18.0) g/dL Hct (42-52) % MCV (80-100) fL MCH (25-34) pg MCHC (32-36) g/dL RDW Std Deviation (36.4-46.3) fL RDW Coeff of Jem (11.5-14.5) % Plt Count (130-400) K/uL MPV (7.4-10.4) fL Immature Gran % (Auto) % Neut % (Auto) % Lymph % (Auto) % [place] % (Auto) % Eos % (Auto) % Baso % (Auto) % Neut # (Auto) (1.4-6.5) K/uL Lymph # (Auto) (1.2-3.4) K/uL [place] # (Auto) (0.11-0.59) K/uL Eos # (Auto) (0-0.5) K/uL Baso # (Auto) (0-0.2) K/uL Immature Gran # (Auto) (0.00-0.02) K/uL ESR (0-20) mm/hr PT (9.0-12.0) Seconds INR (0.9-1.1) APTT (21.0-31.0) Seconds PTT Ratio ABG pH 7.15 L* (7.35-7.45) ABG pCO2 90 H (35-46) mmHg ABG pO2 229 H (80-95) mmHg ABG HCO3 31 H (19-24) mmol/L ABG O2 Saturation 99.5 H (90-95) % ABG Base Excess 0.1 (-9-1.8) mEq/L Chris Test POS (Pos) VBG pH (7.36-7.41) VBG pCO2 (38-50) mmHg VBG pO2 mmHg VBG HCO3 mmol/L VBG O2 Saturation % VBG Base Excess mEq/L Barometric Pressure 735.4 mm/Hg Oxygen Given 15L O2 Sodium (136-145) mmol/L Potassium (3.5-5.1) mmol/L Chloride (98-107) mmol/L Carbon Dioxide (21-32) mmol/L Anion Gap (3-11) BUN (7-18) mg/dl Creatinine (0.6-1.4) mg/dl Est Cr Clr Drug Dosing ml/min Est GFR ( Amer) ml/min Est GFR (Non-Af Amer) ml/min BUN/Creatinine Ratio (10-20) Glucose (70-99) mg/dl Lactate (0.4-2.0) mmol/L Calcium (8.5-10.1) mg/dl Magnesium (1.8-2.4) mg/dl Total Bilirubin (0.2-1) mg/dl AST (15-37) U/L ALT (12-78) Alkaline Phosphatase (45-117) U/L Troponin I (0-0.045) ng/ml C-Reactive Protein (0-0.29) mg/dl Total Protein (6.4-8.2) gm/dl Albumin (3.4-5.0) gm/dl Globulin (2.5-4.0) gm/dl Albumin/Globulin Ratio (0.9-2) Procalcitonin (0-0.5) ng/ml Urine Color Urine Appearance (Clear) Urine pH (4.5-7.5) Ur Specific [place] (1.000-1.030) Urine Protein (Negative) Urine Glucose (UA) (Negative) Urine Ketones (Negative) Urine Blood (Negative) Urine Nitrite (Negative) Urine Bilirubin (Negative) Urine Urobilinogen (Negative) Ur Leukocyte Esterase (Negative) Urine WBC (Auto) (0-5) /hpf Urine RBC (Auto) (0-4) /hpf U Hyaline Cast (Auto) (0-5) /lpf U Epithel Cells (Auto) (0-5) /lpf Urine Bacteria (Auto) (Negative) Ethyl Alcohol mg/dL (0-3) mg/dl Adenovirus (PCR) Not Detected (NotDetected) B. pertussis DNA (PCR) Not Detected (NotDetected) B.parapertussis DNA PCR Not Detected (NotDetected) C. pneumoniae DNA (PCR) Not Detected (NotDetected) Coronavirus OC43 (PCR) Not Detected (NotDetected) Coronavirus HKU1 (PCR) Not Detected (NotDetected) Coronavirus 229E (PCR) Not Detected (NotDetected) SARS-CoV-2 (PCR) Not Detected (NotDetected) Coronavirus NL63 (PCR) Not Detected (NotDetected) Human Metapneumovir PCR Not Detected (NotDetected) Influenza Type A (PCR) Not Detected (NotDetected) Influenza Type B (PCR) Not Detected (NotDetected) M. pneumoniae (PCR) Not Detected (NotDetected) Parainfluenza 1 (PCR) Not Detected (NotDetected) Parainfluenza 2 (PCR) Not Detected (NotDetected) Parainfluenza 3 (PCR) Not Detected (NotDetected) Parainfluenza 4 (PCR) Not Detected (NotDetected) RSV (PCR) Not Detected (NotDetected) Entero/Rhino (PCR) Not Detected (NotDetected) Administered Medications Propofol (Diprivan) 1,000 mg in 100 mls @ 10.2 mls/hr IV .[id number] ON LICENSE OF [facility]; Protocol Stop: 03/11/21 19:14 Last Titration: 03/08/21 23:34 Dose: 30 mcg/kg/min, 15.3 mls/hr Documented by: [id number] Titration: 03/08/21 23:25 Dose: 25 mcg/kg/min, 12.8 mls/hr Documented by: [id number] Titration: 03/08/21 22:56 Dose: 20 mcg/kg/min, 10.2 mls/hr Documented by: [id number] Titration: 03/08/21 21:05 Dose: 15 mcg/kg/min, 7.7 mls/hr Documented by: [id number] Titration: 03/08/21 20:43 Dose: 10 mcg/kg/min, 5.1 mls/hr Documented by: [id number] Titration: 03/08/21 20:22 Dose: 7.5 mcg/kg/min, 3.8 mls/hr Documented by: [id number] Admin: 03/08/21 19:21 Dose: 5 mcg/kg/min, 2.6 mls/hr Documented by: [id number] Cosigned by: [id number] Methylprednisolone (Methylprednisolone 125 Mg/2 Ml Vial) 80 mg IV Q8H ON LICENSE OF [facility] Stop: 04/07/21 22:44 Last Admin: 03/08/21 23:14 Dose: 80 mg Documented by: [id number] Propofol (Propofol Bolus From Bag) 20 mg IV Q5M PRN PRN Reason: Sedation Stop: 03/11/21 19:09 Last Admin: 03/08/21 23:30 Dose: 20 mg Documented by: [id number] Cosigned by: [id number] Admin: 03/08/21 23:18 Dose: 20 mg Documented by: [id number] Cosigned by: [id number] Admin: 03/08/21 22:55 Dose: 20 mg Documented by: [id number] Cosigned by: [id number] Admin: 03/08/21 21:50 Dose: 20 mg Documented by: [id number] Cosigned by: [id number] Admin: 03/08/21 21:23 Dose: 20 mg Documented by: [id number] Cosigned by: [id number] Admin: 03/08/21 20:53 Dose: 20 mg Documented by: [id number] Cosigned by: [id number] Discontinued Medications Albuterol (Albut/Ipratrop 3mg/0.5mg Neb 3 Ml Vial) 12 ml NEB ONE ONE Stop: 03/08/21 18:28 Last Admin: 03/08/21 18:37 Dose: 12 ml Documented by: [id number] Dexamethasone Sodium Phosphate (DexamethasonePf 10 Mg/Ml Vial) 10 mg IV NOW ONE Stop: 03/08/21 18:28 Last Admin: 03/08/21 19:21 Dose: 10 mg Documented by: [id number] Piperacillin Sod/Tazobactam Sod (Zosyn) 4.5 gm in 120 mls @ 240 mls/hr IV NOW ONE Stop: 03/08/21 19:39 Last Infusion: 03/08/21 20:00 Dose: 0 mls/hr Documented by: [id number] Admin: 03/08/21 19:21 Dose: 240 mls/hr Documented by: [id number] Sodium Chloride (Nss 1000ml) 1,000 mls @ 999 mls/hr IV .Q1H1M ONE Stop: 03/08/21 20:10 Last Infusion: 03/08/21 20:30 Dose: 0 mls/hr Documented by: [id number] Admin: 03/08/21 19:21 Dose: 999 mls/hr Documented by: [id number] Ioversol (Optiray 320 125ml) 119 ml IV ONCE ONE Stop: 03/08/21 19:47 Last Admin: 03/08/21 22:12 Dose: Not Given Documented by: [id number] Ioversol (Optiray 320 125ml) 119 ml IV ONCE ONE Stop: 03/08/21 20:03 Last Admin: 03/08/21 20:02 Dose: 119 ml Documented by: [id number] Miscellaneous (Rapid Sequence Induction Bag) Confirm Administered Dose 1 ea .ROUTE .STK-MED ONE Stop: 03/08/21 18:14 Last Admin: 03/08/21 19:09 Dose: 1 ea Documented by: [id number] Miscellaneous (Rapid Sequence Induction Bag) Confirm Administered Dose 1 ea .RO JAMUL .STK-MED ONE Stop: 03/08/21 18:15 Last Admin: 03/08/21 19:09 Dose: Not Given Documented by: [id number] Miscellaneous (Stat Iv Infusion Titration Per Protocol) 1 ea N/A NOW STA Stop: 03/08/21 19:11 Last Admin: 03/08/21 20:24 Dose: Not Given Documented by: [id number] Propofol (Propofol Iv Emulsion 10 Mg/Ml 100 Ml Vial) Confirm Administered Dose 1,000 mg IV .STK-MED ONE Stop: 03/08/21 18:39 Last Admin: 03/08/21 19:09 Dose: Not Given Documented by: [id number] Imaging Data Radiologist's Impression: Chest CTA 03/08/21 18:27 CT ANGIOGRAPHY OF THE CHEST, PULMONARY EMBOLUS PROTOCOL CLINICAL HISTORY: Altered mental status. Possible Covid. COMPARISON STUDY: Chest CT January 30, 2019. Chest radiograph performed earlier today. TECHNIQUE: Following IV administration of 119 mL of Optiray, helical axial images of the chest were obtained utilizing the pulmonary embolus protocol. Maximal intensity projections and sagittal and coronal reformats were viewed on an independent 3D workstation. IV contrast was administered without complication. Automated exposure control was utilized for the study. A dose lowering technique was utilized adhering to the principles of ALARA. FINDINGS: No pulmonary emboli are identified. There is no thoracic aortic dissection. Size of the heart is normal. Tip of endotracheal tube is 1.5 cm above the digna. Tip of nasogastric tube is within the body of the stomach. There is bilateral gynecomastia. Severe emphysema is noted. There are secretions within the bilateral mainstem bronchi and multiple segmental bronchi. Mild right lower lobe airspace opacity is present. This includes groundglass opacity with tree-in-bud nodules. There is no pneumothorax or pleural effusion. Old bilateral rib fractures are noted. Visualized portions of the upper abdomen demonstrate a lateral segment hepatic cyst. 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 Aneurysm with suspected dissection within the superior mesenteric artery is partially imaged on this exam. Visualized portions are unchanged. Gallstones within the gallbladder noted. IMPRESSION: 1. No pulmonary emboli identified. 2. Mild right lower lobe airspace opacity. This may reflect an infectious process. 3. Severe emphysema. 4. Satisfactory positioning of the endotracheal and nasogastric tubes. Secretions within the bilateral mainstem bronchi and multiple segmental bronchi. 5. 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 Visualized portions unchanged. ACT 112: Negative or not required by law. Electronically signed by: Chaitanya Srivastava M.D. 03/08/2021 8:[address] 03/08/21 18:27 CT OF THE HEAD WITHOUT CONTRAST CLINICAL HISTORY: Altered mental status. COMPARISON STUDY: Head CT January 24, 2019. MRI of the brain January 28, 2019. TECHNIQUE: Helical axial images of the head were obtained without IV contrast. Automated exposure control was utilized for the study. A dose lowering technique was utilized adhering to the principles of ALARA. FINDINGS: No acute intracranial hemorrhage, midline shift or mass effect is present. Ventricular system is unremarkable. Basal cisterns are patent. There are no extra-axial collections. There are no findings to suggest acute dural sinus thrombosis or acute territorial infarct. Mild white matter hypodensities favor small vessel disease. Endotracheal and nasogastric tubes are partially imaged. Secretions within the nasopharynx, nasal cavity and ethmoid sinuses are likely related to intubation. A few opacified right mastoid air cells are present. IMPRESSION: No acute intracranial findings. ACT 112: Negative or not required by law. Electronically signed by: Chaitanya Srivastava M.D. 03/08/2021 8:02 PM Chest X-Ray 03/08/21 18:28 XR chest 1V portable CLINICAL HISTORY: Sepsis. Intubation. COMPARISON STUDY: Chest radiograph March 06, 2019. FINDINGS: The tip of the endotracheal tube is 8 mm above the digna. No pneumothorax or pleural effusion is noted. There is no evidence for pulmonary edema. No consolidation is identified. Minimal left basilar opacity favors atelectasis. Cardiomediastinal silhouette is stable. IMPRESSION: 1. Tip of endotracheal tube 8 mm above the digna. The tube could be withdrawn 2 cm. 2. No acute cardiopulmonary findings. ACT 112: Negative or not required by law. Electronically signed by: Chaitanya Srivastava M.D. 03/08/2021 7:12 PM Head CTA 03/08/21 18:54 CTA ANGIOGRAPHY OF THE HEAD CLINICAL HISTORY: Altered mental status. COMPARISON STUDY: MRI of the brain January 28, 2019. TECHNIQUE: Helical axial images of the head were obtained following uneventful intravenous administration of 119 cc of Optiray. Sagittal and coronal reconstructions were viewed as well as maximal intensity projections on an independent 3-D workstation. Automated exposure control was utilized for the study. A dose lowering technique was utilized adhering to the principles of ALARA. CT DOSE: 1915.75 mGy.cm FINDINGS: Please note that the CTA of the neck will be reported separately. Bilateral M1, M2, A1 and A2 segments are patent. No central vessel occlusion is noted. There is mild plaque within the bilateral cavernous carotids without stenosis. Left vertebral artery is dominant. Linear filling defect within the proximal intracranial portion of the right vertebral artery is noted. Short segment dissection within the distal cervical portion of the right internal carotid artery with associated saccular aneurysm measuring 9 mm is noted. This is better depicted on the CTA of the neck. There is mild dilatation of the distal cervical portion of the left internal carotid. IMPRESSION: 1. No central vessel occlusion. No intracranial aneurysm. 2. Small linear filling defect within the proximal intracranial portion of the right vertebral artery which could reflect a short segment dissection or fenestration. 3. 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 ACT 112: Negative or not required by law. Electronically signed by: Chaitanya Srivastava M.D. 03/08/2021 8:39 PM Neck CTA 03/08/21 18:54 CT ANGIOGRAPHY OF THE NECK WITH CONTRAST CLINICAL HISTORY: Altered mental status. COMPARISON STUDY: Cervical spine CT January 10, 2018. Technique: CT angiography of the carotid and vertebral arteries was obtained using Optiray and 3D reconstruction on an independent workstation. NASCET criteria was utilized. Automated exposure control was utilized for the study. A dose lowering technique was utilized adhering to the principles of ALARA. Findings: Please note that the chest CT will be reported separately. Endotr acheal and nasogastric tubes are partially imaged. There are secretions within the airways related to intubation. There is no cervical lymphadenopathy. Note is made of a displaced type II odontoid fracture. The dens is displaced 4 mm posteriorly. This fracture has sclerotic margins. No acute cervical spine fracture is noted. Moderate multilevel degenerative changes within the cervical spine are present. Left vertebral artery is dominant and patent. There is an equivocal linear filling defect within the right vertebral artery within its proximal intracranial portion shown on axial image 174 of 221. There is mild plaque within the bilateral common carotid and cervical internal carotid arteries without significant stenosis. There is a short segment dissection of the distal cervical portion of the right internal carotid artery with associated saccular aneurysm that measures 9 mm in caliber. There is mild fusiform dilatation of the distal cervical portion of the left internal carotid artery, measuring 7 mm in caliber. IMPRESSION: 1. 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 No rupture. This finding is age indeterminate. 2. Apparent linear filling defect within the proximal intracranial portion of the right vertebral artery. This could reflect a short segment dissection or fenestration. 3. Mild fusiform dilatation of the distal cervical portion of the left internal carotid artery. 4. Mild plaque within the vessels of the neck without significant stenosis. ACT 112: Negative or not required by law. Electronically signed by: Chaitanya Srivastava M.D. 03/08/2021 8:32 PM Discharge Plan Visit Data Chief Complaint: Shortness of Breath/Dyspnea Stated Complaint: sob ED Provider: Salas Allen Discharge Problem: Respiratory failure, Acute exacerbation of chronic obstructive pulmonary disease, Pneumonia, Acute alteration in mental status, Dissection, vertebral artery, Acute respiratory acidosis Patient Disposition: Being Evaluated by Hospitalist Forms Stand Alone Forms: [facility] Prescriptions Prescriptions: No Action sumatriptan succinate 50 mg tablet 50 mg PO Q2H MDD 4 tablets/24hrs PRN (Reason: migraine headache) Qty: 9 RF: 5 albuterol sulfate 90 mcg/actuation HFA aerosol inhaler 1 - 2 puff INHALATION Q4H PRN (Reason: Shortness Of Breath) Qty: 54 RF: 1 metoprolol succinate 50 mg tablet extended release 24 hr 50 mg PO DAILY Qty: 30 RF: 5 sodium chloride 1 gram tablet 1 g PO BID Qty: 180 RF: 3 atorvastatin 40 mg tablet 40 mg PO DAILY Qty: 90 RF: 5 furosemide [Lasix] 20 mg tablet 20 mg PO Q OTHER DAY Qty: 15 RF: 5 venlafaxine 150 mg capsule,extended release 24hr 150 mg PO QAM 90 Days Qty: 90 RF: 1 pregabalin 100 mg capsule 100 mg PO BID Qty: 60 RF: 0 folic acid 400 mcg tablet 0.4 mg PO QAM RF: 0 vitamin B complex-folic acid 2,000 mcg capsule 1 cap PO DAILY RF: 0 magnesium oxide 400 mg (241.3 mg magnesium) tablet 400 mg PO DAILY Qty: 30 RF: 3 (DME) nebulizer accessories Kit See Rx Instructions .ROUTE .MEDSUPPLY Qty: 1 RF: 0 ipratropium-albuterol 0.5 mg-3 mg(2.5 mg base)/3 mL solution for nebulization 3 ml INH Q4H PRN (Reason: shortness of breath or wheezing) Qty: 540 RF: 5 Incruse Ellipta 62.5 mcg/actuation blister with device 1 inh inhalation DAILY Qty: 30 RF: 3 fluticasone propion-salmeterol [Advair Diskus] 500-50 mcg/dose blister with device 1 inh inhalation BID Qty: 60 RF: 0 BiPap Machine Misc See Rx Instructions .ROUTE .COMPLEX Qty: 1 RF: 0 Mariola-Sequels (iron-vit c) 200 mg (65 mg iron)-25 mg tablet extended release 1 tab PO DAILY Qty: 30 RF: 1 Probiotic Colon Support 1.5 billion cell Capsule 1 cap PO QAM RF: 0 cyanocobalamin (vitamin B-12) [Vitamin B-12] 1,000 mcg Tablet 1,000 mcg PO DAILY RF: 0 Referrals Referrals: Russell Dang, [Primary Care Provider] -
[2021-03-08 18:49] LABS: Base Excess VBG 0.4 mEq/L; Oxygen Saturation VBG 99.8 %; pH VBG 7.1 (7.36-7.41)
[2021-03-08 19:02] LABS: Partial Thromboplastin Ratio 0.9; Partial Thromboplastin Time 23.5 Seconds (21.0-31.0); Prothrombin Time 10.3 Seconds (9.0-12.0)
[2021-03-08] MEDS ORDERED: PIPERACILLIN/TAZOBACTAM 4.5 GM/120 ML BAG IV ONE (19:10)
[2021-03-08] MEDS ORDERED: SODIUM CHLORIDE 0.9% 1000ML 1,000 ML IV ONE (19:10)
[2021-03-08] MEDS ORDERED: STAT IV Infusion **Titration per Protocol STA (19:10)
[2021-03-08] MEDS ORDERED: PIPERACILL/TAZOBAC CONSULT ACTIVE PRN (19:10)
--- NOTE | 2021-03-08 19:13 | XRay Report ---
XR chest 1V portable CLINICAL HISTORY: Sepsis. Intubation. COMPARISON STUDY: Chest radiograph March 06, 2019. FINDINGS: The tip of the endotracheal tube is 8 mm above the digna. No pneumothorax or pleural effus ion is noted. There is no evidence for pulmonary edema. No consolidation is identified. Minimal left basilar opacity favors atelectasis. Cardiomediastinal silhouette is stable. IMPRESSION: 1. Tip of endotracheal tube 8 mm above the digna. The tube could be withdrawn 2 cm. 2. No acute cardiopulmonary findings. ACT 112: Negative or not required by law. Electronically signed by: Chaitanya Srivastava M.D. 03/08/2021 7:12 PM
[2021-03-08 19:15] LABS: Alanine Aminotransferase 24 (12-78); Albumin Level 3.4 gm/dl (3.4-5.0); Aspartate Aminotransferase 21 U/L (15-37); BUN Creatinine Ratio 18.4 (10-20); Blood Urea Nitrogen 15 mg/dl (7-18); Calcium 8.9 mg/dl (8.5-10.1); Carbon Dioxide 32 mmol/L (21-32); Chloride 104 mmol/L (98-107); Creatinine Clr Calc Pharmacy 93.5 ml/min; Est GFR (African American) 104.8 ml/min; Est GFR (Non-African American) 90.4 ml/min; Glucose 188 mg/dl (70-99); Magnesium 2.1 mg/dl (1.8-2.4); Potassium 4.6 mmol/L (3.5-5.1); Sodium 138 mmol/L (136-145)
[2021-03-08 19:18] LABS: Appearance Urine Clear (Clear); Bacteria Urine Automated Negative (Negative); Bilirubin Urine Negative (Negative); Blood Urine Negative (Negative); Color Urine Yellow; Glucose Urine UA Negative (Negative); Ketones Urine Negative (Negative); Leukocyte Esterase Urine Negative (Negative); Nitrite Urine Negative (Negative); Protein Urine 1+ (Negative); RBC Urine Automated 0-4 /hpf (0-4); Specific Gravity Urine 1.012 (1.000-1.030); Urobilinogen Urine Negative (Negative); WBC Urine Automated 0 /hpf (0-5)
[2021-03-08 19:20] LABS: Albumin Globulin Ratio 0.7 (0.9-2); Alkaline Phosphatase 120 U/L (45-117); Bilirubin,Total 0.4 mg/dl (0.2-1); C Reactive Protein 0.51 mg/dl (0-0.29); Globulin 4.7 gm/dl (2.5-4.0); Total Protein 8.1 gm/dl (6.4-8.2); Troponin I < 0.015 ng/ml (0-0.045)
[2021-03-08] MEDS: propofoL 1,000 MG/100 ML VIAL IV SCH (19:21)
[2021-03-08] MEDS ORDERED: OPTIRAY 320 125ml IV ONE ×2 (19:46→20:02)
--- NOTE | 2021-03-08 20:11 | CT Scan Report ---
CT OF THE HEAD WITHOUT CONTRAST CLINICAL HISTORY: Altered mental status. COMPARISON STUDY: Head CT January 24, 2019. MRI of the brain January 28, 2019. TECHNIQUE: Helical axial images of the head were obtained without IV contrast. Automated exposure con trol was utilized for the study. A dose lowering technique was utilized adhering to the principles o f ALARA. FINDINGS: No acute intracranial hemorrhage, midline shift or mass effect is present. Ventricular syst em is unremarkable. Basal cisterns are patent. There are no extra-axial collections. There are no fin dings to suggest acute dural sinus thrombosis or acute territorial infarct. Mild white matter hypoden sities favor small vessel disease. Endotracheal and nasogastric tubes are partially imaged. Secretion s within the nasopharynx, nasal cavity and ethmoid sinuses are likely related to intubation. A few op acified right mastoid air cells are present. IMPRESSION: No acute intracranial findings. ACT 112: Negative or not required by law. Electronically signed by: Chaitanya Srivastava M.D. 03/08/2021 8:02 PM
--- NOTE | 2021-03-08 20:21 | CT Scan Report ---
CT ANGIOGRAPHY OF THE CHEST, PULMONARY EMBOLUS PROTOCOL CLINICAL HISTORY: Altered mental status. Possible Covid. COMPARISON STUDY: Chest CT January 30, 2019. Chest radiograph performed earlier today. TECHNIQUE: Following IV administration of 119 mL of Optiray, helical axial images of the chest were o btained utilizing the pulmonary embolus protocol. Maximal intensity projections and sagittal and cor onal reformats were viewed on an independent 3D workstation. IV contrast was administered without co mplication. Automated exposure control was utilized for the study. A dose lowering technique was ut ilized adhering to the principles of ALARA. FINDINGS: No pulmonary emboli are identified. There is no thoracic aortic dissection. Size of the he art is normal. Tip of endotracheal tube is 1.5 cm above the digna. Tip of nasogastric tube is within the body of the stomach. There is bilateral gynecomastia. Severe emphysema is noted. There are secre tions within the bilateral mainstem bronchi and multiple segmental bronchi. Mild right lower lobe air space opacity is present. This includes groundglass opacity with tree-in-bud nodules. There is no pne umothorax or pleural effusion. Old bilateral rib fractures are noted. Visualized portions of the uppe r abdomen demonstrate a lateral segment hepatic cyst. Aneurysmal dilatation of the celiac axis measur ing 1.4 cm is similar to CT of January 09, 2019. Aneurysm with suspected dissection within the superi or mesenteric artery is partially imaged on this exam. Visualized portions are unchanged. Gallstones within the gallbladder noted. IMPRESSION: 1. No pulmonary emboli identified. 2. Mild right lower lobe airspace opacity. This may reflect an infectious process. 3. Severe emphysema. 4. Satisfactory positioning of the endotracheal and nasogastric tubes. Secretions within the bilatera l mainstem bronchi and multiple segmental bronchi. 5. 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 Superior mesenteric artery aneur ysm with suspected chronic dissection, partially imaged on this exam. Visualized portions unchanged. ACT 112: Negative or not required by law. Electronically signed by: Chaitanya Srivastava M.D. 03/08/2021 8:19 PM
[2021-03-08 20:22] LABS: Adenovirus PCR Not Detected (NotDetected); Bordetella parapertussis PCR Not Detected (NotDetected); Bordetella pertussis PCR Not Detected (NotDetected); Chlamydia pneumoniae PCR Not Detected (NotDetected); Coronavirus 229E PCR Not Detected (NotDetected); Coronavirus CoV-2 (COVID19)PCR Not Detected (NotDetected); Coronavirus HKU1 PCR Not Detected (NotDetected); Coronavirus NL63 PCR Not Detected (NotDetected); Coronavirus OC43PCR Not Detected (NotDetected); Human Metapneumovirus PCR Not Detected (NotDetected); Influenza A PCR Not Detected (NotDetected); Influenza B PCR Not Detected (NotDetected); Mycoplasma pneumoniae PCR Not Detected (NotDetected); Parainfluenza Virus 1 PCR Not Detected (NotDetected); Parainfluenza Virus 2 PCR Not Detected (NotDetected); Parainfluenza Virus 3 PCR Not Detected (NotDetected); Parainfluenza Virus 4 PCR Not Detected (NotDetected); Respiratory Syncytial VirusPCR Not Detected (NotDetected); Rhinovirus/Enterovirus PCR Not Detected (NotDetected)
--- NOTE | 2021-03-08 20:33 | CT Scan Report ---
CT ANGIOGRAPHY OF THE NECK WITH CONTRAST CLINICAL HISTORY: Altered mental status. COMPARISON STUDY: Cervical spine CT January 10, 2018. Technique: CT angiography of the carotid and vertebral arteries was obtained using Optiray and 3D rec onstruction on an independent workstation. NASCET criteria was utilized. Automated exposure control was utilized for the study. A dose lowering technique was utilized adhering to the principles of ALA RA. Findings: Please note that the chest CT will be reported separately. Endotracheal and nasogastric tub es are partially imaged. There are secretions within the airways related to intubation. There is no c ervical lymphadenopathy. Note is made of a displaced type II odontoid fracture. The dens is displaced 4 mm posteriorly. This fracture has sclerotic margins. No acute cervical spine fracture is noted. Mo derate multilevel degenerative changes within the cervical spine are present. Left vertebral artery is dominant and patent. There is an equivocal linear filling defect within the right vertebral artery within its proximal intracranial portion shown on axial image 174 of 221. Ther e is mild plaque within the bilateral common carotid and cervical internal carotid arteries without s ignificant stenosis. There is a short segment dissection of the distal cervical portion of the right internal carotid artery with associated saccular aneurysm that measures 9 mm in caliber. There is mil d fusiform dilatation of the distal cervical portion of the left internal carotid artery, measuring 7 mm in caliber. IMPRESSION: 1. 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 No rupture. This finding is age indeterm inate. 2. Apparent linear filling defect within the proximal intracranial portion of the right vertebral art fina. This could reflect a short segment dissection or fenestration. 3. Mild fusiform dilatation of the distal cervical portion of the left internal carotid artery. 4. Mild plaque within the vessels of the neck without significant stenosis. ACT 112: Negative or not required by law. Electronically signed by: hCaitanya Srivastava M.D. 03/08/2021 8:32 PM
--- NOTE | 2021-03-08 20:41 | CT Scan Report ---
CTA ANGIOGRAPHY OF THE HEAD CLINICAL HISTORY: Altered mental status. COMPARISON STUDY: MRI of the brain January 28, 2019. TECHNIQUE: Helical axial images of the head were obtained following uneventful intravenous administr ation of 119 cc of Optiray. Sagittal and coronal reconstructions were viewed as well as maximal inten sity projections on an independent 3-D workstation. Automated exposure control was utilized for the study. A dose lowering technique was utilized adhering to the principles of ALARA. CT DOSE: 1915.75 mGy.cm FINDINGS: Please note that the CTA of the neck will be reported separately. Bilateral M1, M2, A1 and A2 segments are patent. No central vessel occlusion is noted. There is mild plaque within the bilater al cavernous carotids without stenosis. Left vertebral artery is dominant. Linear filling defect with in the proximal intracranial portion of the right vertebral artery is noted. Short segment dissection within the distal cervical portion of the right internal carotid artery with associated saccular ane urysm measuring 9 mm is noted. This is better depicted on the CTA of the neck. There is mild dilatati on of the distal cervical portion of the left internal carotid. IMPRESSION: 1. No central vessel occlusion. No intracranial aneurysm. 2. Small linear filling defect within the proximal intracranial portion of the right vertebral artery which could reflect a short segment dissection or fenestration. 3. 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 ACT 112: Negative or not required by law. Electronically signed by: Chaitanya Srivastava M.D. 03/08/2021 8:39 PM
[2021-03-08] MEDS: PROPOFOL BOLUS FROM BAG IV PRN ×7 (20:53→23:46)
--- NOTE | 2021-03-08 21:54 | History & Physical Report ---
Date of Service March 08, 2021 Assessment & Plan (1) Acute and chronic respiratory failure with hypercapnia: Plan: 70 year old male past medical history of severe COPD on 3-4L at home, HTN, Alcohol abuse, peripheral neuropathy, SIADH, prostatitis admitted to ICU for acute exacerbation of severe COPD. Acute and chronic respiratory failure with hypercapnia: -ABG pH 7.15, pCO2 90, pO2 229 -Altered mental status most likely 2/2 hypercapnia from COPD, less likely cardiac etiology. -CTA chest with mild right lower lobe airspace opacity, possible pneumonia. Blood cultures pending. Continue Zosyn. -Continue scheduled Duoneb, Incruse Ellipta, Albuterol, Fluticasone. Ordered Solumedrol. -O2 sat >94 on ventilation, admitted to ICU. Monitor vitals and progress. COPD, severe: -Same plan as above, continued home regimen and added Solumedrol. -Continue to monitor breathing and oxygen saturation. Essential hypertension: -BP within normal limits, hold metoprolol and furosemide while patient intubated. SMA & Celiac artery aneurysm: -CTA chest showed unchanged aneurysm from 2019. Continue to monitor vitals for instability. Peripheral neuropathy: -Hold pregabalin, sumatriptan, venlafaxine while patient intubated. History of Alcohol Abuse: -Blood alcohol level <3.0, told ED staff minimal drinking recently, monitor for withdrawal. History of SIADH: -Na 138, K 4.6. Continue to monitor electrolytes. Dispo: ICU admit Code status: Full code (2) COPD, severe: (3) Essential hypertension: (4) Superior mesenteric artery aneurysm: (5) Peripheral neuropathy: (6) Aneurysm artery, celiac: (7) SIADH (syndrome of inappropriate ADH production): History of Present Illness Chief Complaint: Shortness of breath Primary Care Provider: Russell Dang DO 70 year old male with past medical history of severe COPD on 3-4L at home, HTN, Alcohol abuse, peripheral neuropathy, SIADH, prostatitis presenting to the ED for shortness of breath since earlier in the day. The patient has an extensive history of smoking for which he quit a year and half ago. He last saw Dr. Dominguez in outpatient clinic in December where he described his breathing as poor at that point in time. He is on home home duoneb, Incruse Ellipta, albuterol, and fluticasone as well as 3-4 liters of O2 at baseline. As per patient's , he was short of breath at home and appeared obtunded and so EMS was called. Patient has also been having swelling in the lower extremities recently. denied any fevers, coughing, nausea, vomiting. When he came into the ED he was intubated and placed on ventilation and O2 saturation was kept above 94%. The patient was also given Dexamethasone 10mg in the ED and placed on Zosyn for possible infection from RLL infiltrate seen on CT scan. History could not be obtained from patient as he was sedated on propofol and I was unable to reach his via phone. Allergies Allergy/AdvReac Type Severity Reaction Status Date / Time No Known Allergies Allergy Verified 03/08/21 19:02 Home Medications Medication Instructions Recorded Confirmed Type folic acid 400 mcg tablet 0.4 mg PO QAM 12/13/18 03/08/21 History vitamin B complex-folic acid 2,000 1 cap PO DAILY 12/13/18 03/08/21 History mcg capsule ferrous fumarate 200 mg (65 mg 1 tab PO DAILY #30 tab 01/21/19 03/08/21 Rx iron)-vit C 25 mg tablet,extend release (Mariola-Sequels (iron-vit c)) Lactobacills gasseri-Bifidobac 1 cap PO QAM 02/25/19 03/08/21 History bifidum,longum 1.5 billion cell capsule (Probiotic Colon Support) magnesium oxide 400 mg (241.3 mg 400 mg PO DAILY #30 tab 03/04/19 03/08/21 Rx magnesium) tablet sumatriptan succinate 50 mg tablet 50 mg PO Q2H PRN #9 tab MDD 4 05/29/19 03/08/21 Rx tablets/24hrs albuterol sulfate 90 mcg/actuation 1 - 2 puff INHALATION Q4H PRN #54 04/13/20 03/08/21 Rx aerosol inhaler gm metoprolol succinate 50 mg 50 mg PO DAILY #30 tab 09/01/20 03/08/21 Rx tablet,extended release 24 hr sodium chloride 1 gram tablet 1 g PO BID #180 tab 09/06/20 03/08/21 Rx atorvastatin 40 mg tablet 40 mg PO DAILY #90 tab 09/17/20 03/08/21 Rx furosemide 20 mg tablet (Lasix) 20 mg PO Q OTHER DAY #15 tab 10/05/20 03/08/21 Rx ipratropium 0.5 mg-albuterol 3 mg 3 ml INH Q4H PRN #540 ml 12/22/20 03/08/21 Rx (2.5 mg base)/3 mL nebulization soln nebulizer accessories #1 ea 12/22/20 03/08/21 Rx BiPap Machine See Rx Instructions .ROUTE 01/04/21 03/08/21 Rx .COMPLEX #1 ea fluticasone 500 mcg-salmeterol 50 1 inh INHALATION BID #60 ea 01/04/21 03/08/21 Rx mcg/dose blistr powdr for inhalation (Advair Diskus) umeclidinium 62.5 mcg/actuation 1 inh INHALATION DAILY #30 ea 01/04/21 03/08/21 Rx blister powder for inhalation (Incruse Ellipta) venlafaxine 150 mg 150 mg PO QAM 90 Days #90 cap 01/07/21 03/08/21 Rx capsule,extended release 24 hr pregabalin 100 mg capsule 100 mg PO BID #60 cap 03/01/21 03/08/21 Rx cyanocobalamin (vitamin B-12) 1,000 mcg PO DAILY 03/08/21 03/08/21 History 1,000 mcg tablet (Vitamin B-12) Past Med/Surg History Medical History Acute hyponatremia Alcohol abuse Alcohol withdrawal Bacteremia Cellulitis Colitis COPD (chronic obstructive pulmonary disease) COPD exacerbation Delirium tremens DVT prophylaxis Face lacerations Gout Hyperlipidemia Hypertension Hypokalemia Hypomagnesemia Hyponatremia Hypoxemia Incarcerated left inguinal hernia Infection of spine DX 5 YEARS AGO (TREATED AT [facility]) Klebsiella pneumoniae infection Low back pain Metabolic encephalopathy Migraine Neuropathy On home oxygen therapy 3L CONT. Orthostasis Osteoarthritis Respiratory failure Right hand fracture Right inguinal hernia Seizure Seizure LAST EPISODE LAST MONTH (HOSPITALIZED AT [facility]) ? ETIOLOGY FOLLOWED BY DR. HIGHTOWER Sepsis associated hypotension Tachycardia Tremor BILAT HANDS AND A LITTLE IN BILAT. FEET UTI (urinary tract infection) Surgical History H/O tooth extraction Lower teeth on 04/23/2018 H/O tooth extraction History of colonoscopy History of open reduction and internal fixation (ORIF) procedure FEMUR ?SIDE S/P foot surgery RT/LEFT (HARDWARE INTACT) Family History Father Hypertension Aneurysm Mother Swelling Uncle Myocardial infarction Other No significant family history Denies family history of Ovarian cancer Prostate cancer Breast cancer Colorectal cancer Social History Smoking Status: Unknown if ever smoked Age Started Using Tobacco: 14; Age Quit Using Tobacco: 68; packs per day: 1; Cigarettes Per Day: 10; Second Hand Exposure: No; Hx Alcohol Use: No (unknown) Hx Substance Use: No Preferred Language: Persian Communication Ability: Impaired Visual Impairment: Limited Hearing Ability: Normal Hardware Sales Assistant Required: No Beliefs That Will Affect Care: None marital status: Current Living Situation Comment: unknown intubated and sedated current occupational status: retired Feels Safe at Home: Yes Childhood Exposure to Second-Hand Smoke: Yes Dental Care, Regularly: No Physical Activity Frequency: Does not Exercise Seatbelt Use: always Sunscreen Use: No Assistive Devices: Oxygen - Continuous Physical Exam Constitutional: + ill appearing, + thin and + mechanically ventilated Respiratory: Crackles in the right lung base, otherwise clear to auscultation. Cardiovascular: RRR, no murmur, no edema Extremities: + edema Gastrointestinal (Abdomen): normal bowel sounds, soft, nontender, no hepatosp lenomegaly Results & Data Results & Data ([facility]) Vital Signs (Past 12 Hours) Vital Signs Temp Pulse Resp BP Pulse Ox 03/08/21 21:45 85 20 130/85 100 03/08/21 21:30 83 20 140/87 100 03/08/21 21:15 82 20 126/97 100 03/08/21 21:00 85 20 131/85 100 03/08/21 20:45 85 20 153/88 H 100 03/08/21 20:30 87 20 157/94 H 100 03/08/21 20:15 92 H 22 134/88 100 03/08/21 20:00 88 22 143/88 H 100 03/08/21 19:40 93 H 22 142/83 H 98 03/08/21 19:30 95 H 22 151/90 H 97 03/08/21 19:20 99 H 22 157/94 H 96 03/08/21 19:15 103 H 20 98 03/08/21 19:00 103 H 20 98 03/08/21 18:58 36.8 C 80 18 94 03/08/21 18:45 110 H 22 98 03/08/21 18:30 117 H 20 97 03/08/21 18:27 120 H 23 118/86 97 Critical Care Time 50 minutes Supervising Physician Co-Signing Physician Notes Attending addendum: I have physically seen this patient, have supervised the medical residents activities, and agree with the H&P unless as otherwise noted. Assessment and Plan: Acute on chronic respiratory failure with hypoxia and hypercapnia/COPD exacerbation- Admit to intensive care unit Intubated in the ED, and placed on mechanical ventilator Methylprednisolone 40 mg IV every 8 hours Broad-spectrum antibiotic coverage with vancomycin IV and Zosyn IV Famotidine 20 mg IV every 12 hours Zofran 4 mg IV every 6 hours as needed Consult reception centre manager Remaining orders and notations as noted Resident Activity Tracking Resident Involvement: Resident Care Provided Care Provided: Adult Hospital Medicine (1) Peripheral neuropathy Peripheral neuropathy type: polyneuropathy, unspecified Qualified Code(s): G62.9 - Polyneuropathy, unspecified
[2021-03-08 22:24] LABS: Base Excess ABG 0.1 mEq/L (-9-1.8); HCO3 ABG 31 mmol/L (19-24); Oxygen Saturation ABG 99.5 % (90-95); PCO2 ABG 90 mmHg (35-46); PO2 ABG 229 mmHg (80-95)
[2021-03-08 22:32] LABS: Allen Test POS (Pos)
[2021-03-08 22:33] LABS: pH ABG 7.15 (7.35-7.45)
[2021-03-08] MEDS ORDERED: methylPREDNISolone 125 MG/2 ML VIAL IV SCH (22:45)
--- NOTE | 2021-03-08 23:49 | Critical Care Consultation ---
Date of Consultation March 08, 2021 Assessment & Plan (1) Acute and chronic respiratory failure with hypercapnia: Reason Critically Ill: 70-year-old male presents to the emergency department obtunded with hypercapnic respiratory failure requiring emergent intubation, transferred to ICU for ongoing care. Neuro - Encephalopathypatient obtunded on arrival to ED, secondary to hypercapnia with patient CO2 109 on VBG. Peripheral neuropathyhold home regimen for now Right ICA 9 mm saccular aneurysmcoincidental finding on CTA. [facility] neurology contacted by primary team and recommended outpatient follow-up with neurosurgery. Maintain normotension Cardiac - Currently hemodynamically stable with use of vasopressors. Continuous monitor on telemetry HTNmaintain normotension. Continue MTP No change in celiac axis aneurysm or superior mesenteric artery aneurysm with suspected chronic dissection on CTA. Right ICA aneurysm as above. -Maintain normotension and avoid anticoagulation if possible Respiratory - Acute hypercapnic respiratory failurepatient with history of severe COPD presents with COPD exacerbation with CO2 109. Obtunded and requiring intubation after failing BiPAP. -Received 10 mg IV dexamethasone in ED. We will continue with IV Solu-Medrol -DuoNeb every 6. Restart home regimen inhalers -CTA without evidence of PE. Mild right lower lobe airspace opacity, possible infection. Severe emphysema. -See ID below for pulmonary coverage. -Continuous ET CO2 and pulse ox monitor -Follow-up ABG and chest x-ray in a.m. -Wean vent as tolerated GI - N.p.o. IV famotidine twice daily RENAL/LYTES - Creatinine within normal limits, monitor routine BMP and replete electrolytes as indicated SIADHsodium 138, potassium 4.6. Monitor - Foleystrict I's and O's ENDO - No history of diabetes or thyroid disease ICU hyperglycemic protocol HEME - H&H stable, monitor routine CBC ID - WBC 10.8, afebrile, pro Levy and lactate within normal limits Blood cultures pending CTA chest with mild right lower lobe airspace opacity which may be concerning for infectious process Nasal MRSA pending Continue Zosyn for now LINES/IV ACCESS - Peripheral IVs, OG tube, ET tube DVT PROPHYLAXIS - SCDs, hold anticoagulation in the setting of right ICA saccular aneurysm I have personally spent 50 minutes of critical care time in the direct management of this patient. This is a life/limb threatening event. This includes time spent evaluating patient, direct bedside care, chart review, placing orders, interpretation of diagnostic studies, discussion with consultants, patient, and family members, as well as other required patient management activities. This time is exclusive of all separately billable procedures, and teaching time and separate from and in addition to any other critical care service time. Thank you for allowing us to participate in the care of this patient. Please refer to my attending physician's documentation for any further recommendations. (2) Inguinal hernia bilateral, non-recurrent: (3) Tobacco abuse: (4) Essential hypertension: (5) Hematuria: (6) BPH loc w urin obs/LUTS: (7) Superior mesenteric artery aneurysm: (8) Encephalopathy acute: (9) Chronic venous stasis: (10) Peripheral neuropathy: (11) SIADH (syndrome of inappropriate ADH production): (12) Pulmonary emphysema: (13) COPD, severe: (14) Aneurysm artery, celiac: (15) Carotid aneurysm, right: History of Present Illness History of Present Illness Patient is 70-year-old male with history of severe COPD (on 3 to 4 L O2 at home), HTN, EtOH abuse, peripheral neuropathy, SIADH, inguinal hernia, BPH who presents to the emergency department with hypercapnic respiratory failure and encephalopathy Patient quit smoking approximately a year and a half ago and follows with pulmonology as an outpatient. Home regimen includes DuoNeb, Incruse Ellipta, albuterol, fluticasone. Patient's called EMS after he was found to be obtunded after earlier complaining of shortness of breath. He was initially tried on BiPAP but was soon intubated. He was initially given nebs, 10 mg dexamethasone, and placed on Zosyn. Blood gas showed hypercapnic respiratory failure with CO2 109 on VBG. Chest CTA without evidence of PE, mild right lower lobe airspace opacity concerning for infectious process, severe emphysema. Bio fire was negative. EtOH negative. CT head without acute intrac ranial findings. He underwent CTA of the head and neck, possible right vertebral artery short segment dissection or fenestration and short segment dissection of the distal cervical right internal carotid artery with associated saccular aneurysm measuring 9 mm. Findings were discussed with [facility] neurology who recommended outpatient follow-up and normotensive goal. Patient now being admitted to ICU for further management at this time. Allergies Allergy/AdvReac Type Severity Reaction Status Date / Time No Known Allergies Allergy Verified 03/08/21 19:02 Home Medications Medication Instructions Recorded Confirmed Type folic acid 400 mcg tablet 0.4 mg PO QAM 12/13/18 03/08/21 History vitamin B complex-folic acid 2,000 1 cap PO DAILY 12/13/18 03/08/21 History mcg capsule ferrous fumarate 200 mg (65 mg 1 tab PO DAILY #30 tab 01/21/19 03/08/21 Rx iron)-vit C 25 mg tablet,extend release (Mariola-Sequels (iron-vit c)) Lactobacills gasseri-Bifidobac 1 cap PO QAM 02/25/19 03/08/21 History bifidum,longum 1.5 billion cell capsule (Probiotic Colon Support) magnesium oxide 400 mg (241.3 mg 400 mg PO DAILY #30 tab 03/04/19 03/08/21 Rx magnesium) tablet sumatriptan succinate 50 mg tablet 50 mg PO Q2H PRN #9 tab MDD 4 05/29/19 03/08/21 Rx tablets/24hrs albuterol sulfate 90 mcg/actuation 1 - 2 puff INHALATION Q4H PRN #54 04/13/20 03/08/21 Rx aerosol inhaler gm metoprolol succinate 50 mg 50 mg PO DAILY #30 tab 09/01/20 03/08/21 Rx tablet,extended release 24 hr sodium chloride 1 gram tablet 1 g PO BID #180 tab 09/06/20 03/08/21 Rx atorvastatin 40 mg tablet 40 mg PO DAILY #90 tab 09/17/20 03/08/21 Rx furosemide 20 mg tablet (Lasix) 20 mg PO Q OTHER DAY #15 tab 10/05/20 03/08/21 Rx ipratropium 0.5 mg-albuterol 3 mg 3 ml INH Q4H PRN #540 ml 12/22/20 03/08/21 Rx (2.5 mg base)/3 mL nebulization soln nebulizer accessories #1 ea 12/22/20 03/08/21 Rx BiPap Machine See Rx Instructions .ROUTE 01/04/21 03/08/21 Rx .COMPLEX #1 ea fluticasone 500 mcg-salmeterol 50 1 inh INHALATION BID #60 ea 01/04/21 03/08/21 Rx mcg/dose blistr powdr for inhalation (Advair Diskus) umeclidinium 62.5 mcg/actuation 1 inh INHALATION DAILY #30 ea 01/04/21 03/08/21 Rx blister powder for inhalation (Incruse Ellipta) venlafaxine 150 mg 150 mg PO QAM 90 Days #90 cap 01/07/21 03/08/21 Rx capsule,extended release 24 hr pregabalin 100 mg capsule 100 mg PO BID #60 cap 03/01/21 03/08/21 Rx cyanocobalamin (vitamin B-12) 1,000 mcg PO DAILY 03/08/21 03/08/21 History 1,000 mcg tablet (Vitamin B-12) Patient History Medical History Acute hyponatremia Alcohol abuse Alcohol withdrawal Bacteremia Cellulitis Colitis COPD (chronic obstructive pulmonary disease) COPD exacerbation Delirium tremens DVT prophylaxis Face lacerations Gout Hyperlipidemia Hypertension Hypokalemia Hypomagnesemia Hyponatremia Hypoxemia Incarcerated left inguinal hernia Infection of spine DX 5 YEARS AGO ([facility]RE[facility]) Klebsiella pneumoniae infection Low back pain Metabolic encephalopathy Migraine Neuropathy On home oxygen therapy 3L CONT. Orthostasis Osteoarthritis Respiratory failure Right hand fracture Right inguinal hernia Seizure Seizure LAST EPISODE LAST MONTH (HOSPITALIZED AT [facility]) ? ETIOLOGY FOLLOWED BY DR. HIGHTOWER Sepsis associated hypotension Tachycardia Tremor BILAT HANDS AND A LITTLE IN BILAT. FEET UTI (urinary tract infection) Surgical History H/O tooth extraction Lower teeth on 04/23/2018 H/O tooth extraction History of colonoscopy History of open reduction and internal fixation (ORIF) procedure FEMUR ?SIDE S/P foot surgery RT/LEFT (HARDWARE INTACT) Family History Father Hypertension Aneurysm Mother Swelling Uncle Myocardial infarction Other No significant family history Denies family history of Ovarian cancer Prostate cancer Breast cancer Colorectal cancer Social History Smoking Status: Unknown if ever smoked Age Started Using Tobacco: 14; Age Quit Using Tobacco: 68; packs per day: 1; Cigarettes Per Day: 10; Second Hand Exposure: No; Hx Alcohol Use: Yes Alcohol type: beer Alcohol Intake Frequency Comment: 8+ per day Hx Substance Use: No Preferred Language: Macanese Communication Ability: Impaired Visual Impairment: Limited Hearing Ability: Normal Supply Clerk Required: No Beliefs That Will Affect Care: None marital status: Current Living Situation: Spouse current occupational status: retired Feels Safe at Home: Yes Childhood Exposure to Second-Hand Smoke: Yes Dental Care, Regularly: No Physical Activity Frequency: Does not Exercise Seatbelt Use: always Sunscreen Use: No Assistive Devices: Cane, Denture - Upper, Denture - Lower, Glasses, Oxygen - Continuous and Walker Review of Systems Review of Systems: Unobtainable due to endotracheal tube and Unobtainable due to reduced consciousness Physical Exam Constitutional: + mechanically ventilated Sedated Eyes: PERRL, conjunctivae normal, anicteric sclerae ENMT: external ear and nose normal, oropharynx normal Neck: trachea midline, no thyromegaly Respiratory: Symmetrical chest wall movement. Bilateral expiratory wheeze auscultated. Lung sounds diminished bilaterally in bases. Cardiovascular: RRR, no murmur, no edema Heart Sounds: normal S1 and normal S2 Vessels: no JVD Bilateral lower extremity edema +1 Gastrointestinal (Abdomen): normal bowel sounds, soft, nontender, no hepatosplenomegaly Left inguinal hernia Musculoskeletal: Unable to assess due to sedation Skin: no rashes, warm and dry Extensive ecchymosis to the left forearm Neurologic: Unable to assess due to sedation Psychiatric: Unable to assess due to sedation Genitourinary: Indwelling Farrell catheter present Results & Data Results & Data ([facility]) Vital Signs (Past 12 Hours) Vital Signs Temp Pulse Resp BP Pulse Ox 03/08/21 23:30 85 28 H 126/81 99 03/08/21 23:22 84 28 H 98 03/08/21 23:15 84 30 H 99 03/08/21 23:00 85 28 H 98 03/08/21 22:45 82 28 H 146/85 H 100 03/08/21 22:40 28 H 03/08/21 22:30 81 20 145/89 H 100 03/08/21 22:15 86 2 L 139/81 100 03/08/21 22:00 86 20 139/74 100 03/08/21 21:45 85 20 130/85 100 03/08/21 21:30 83 20 140/87 100 03/08/21 21:15 82 20 126/97 100 03/08/21 21:00 85 20 131/85 100 12/07/21 20:45 85 20 153/88 H 100 03/08/21 20:30 87 20 157/94 H 100 03/08/21 20:15 92 H 22 134/88 100 03/08/21 20:00 88 22 143/88 H 100 03/08/21 19:40 93 H 22 142/83 H 98 03/08/21 19:30 95 H 22 151/90 H 97 03/08/21 19:20 99 H 22 157/94 H 96 03/08/21 19:15 103 H 20 98 03/08/21 19:00 103 H 20 98 03/08/21 18:58 36.8 C 80 18 94 03/08/21 18:45 110 H 22 98 03/08/21 18:30 117 H 20 97 03/08/21 18:27 120 H 23 118/86 97 Coding Level of Care Code Critical Care 1st 30-74 mins Diagnoses Inguinal hernia bilateral, non-recurrent K40.20 Tobacco abuse Z72.0 Acute and chronic respiratory failure with hypercapnia J96.22 Essential hypertension I10 Hematuria R31.9 BPH loc w urin obs/LUTS N40.1 Superior mesenteric artery aneurysm I72.8 Encephalopathy acute G93.40 Chronic venous stasis I87.8 Peripheral neuropathy G62.9 Peripheral neuropathy type: polyneuropathy, unspecified SIADH (syndrome of inappropriate ADH production) E22.2 Pulmonary emphysema J43.9 COPD, severe J44.9 Aneurysm artery, celiac I72.8 Carotid aneurysm, right I72.0 (1) Peripheral neuropathy Peripheral neuropathy type: polyneuropathy, unspecified Qualified Code(s): G62.9 - Polyneuropathy, unspecified
[2021-03-09] MEDS: PROPOFOL BOLUS FROM BAG IV PRN ×4 (00:02→16:48)
[2021-03-09] MEDS ORDERED: STAT IV Infusion **Titration per Protocol STA (00:34)
[2021-03-09] MEDS: fentaNYL DRIP 1,250 MCG/250 ML BAG IV SCH ×4 (00:51→19:15)
[2021-03-09] MEDS ORDERED: ALBUT/IPRATROP 3MG/0.5MG NEB 3 ML VIAL ONE (02:42)
[2021-03-09] MEDS: ALBUT/IPRATROP 3MG/0.5MG NEB 3 ML VIAL NEB SCH ×6 (02:49→23:36)
--- NOTE | 2021-03-09 03:36 | Communication Note ---
Date of Service: March 09, 2021 CTA head and neck with findings of: - short segment dissection of the distal cervical portion of the right vertebral artery with associated saccular aneurysm which measures 9mm in caliber not ruptured - linear filling defect within the proximal intracranial portion of the right vertebral artery, this could represent a short segment dissection or fenes tration - mild fusiform dilation of the distal cervical portion of the left ICA. Reviewed the imaging findings with [facility] over the phone. Dr. Monroy - There is concern regarding the 9mm saccular aneurysm as it is bigger than the 5mm cutoff and would need eventual neurosurgical or neurointerventional evaluation potentially at [facility] (could consider serial imaging in 4-6 months vs. arterial DSA imaging to better characterize and for planning). This would not be done emergently as the patient is currently intubated and sedated and it is unlikely that anyone would consider intervention in the patients current state. - goal BP - normotensive - if a neurologic change occurs, would obtain a CTA to further evaluate for progression or rupture
[2021-03-09] MEDS ORDERED: ALBUTEROL HFA 8 GM INHALER INH PRN (04:23)
[2021-03-09] MEDS ORDERED: ALBUT/IPRATROP 3MG/0.5MG NEB 3 ML VIAL NEB SCH (04:23)
[2021-03-09] MEDS ORDERED: ICU PROTOCOL FOR HYPERGLYCEMIA PRN (04:23)
[2021-03-09 04:31] LABS: iSTAT Allen Test Pass; iSTAT Arterial Blood Gas HCO3 32 meg/L (19-24); iSTAT Arterial Blood Gas pCO2 54 mmHg (35-46); iSTAT Arterial Blood Gas pH 7.38 (7.35-7.45); iSTAT Arterial Blood Gas pO2 68 mmHg (80-95); iSTAT Carbon Dioxide 34 mmol/L (24-31); iSTAT FiO2 40 %; iSTAT Site R Radial
[2021-03-09] MEDS: propofoL 1,000 MG/100 ML VIAL IV SCH ×7 (04:58→19:14)
[2021-03-09] MEDS ORDERED: PIPERACILLIN/TAZOBACTAM 3.375 GM in DEXTROSE 5% 100 ML IV SCH (05:00)
[2021-03-09 06:06] LABS: Eosinophils # (auto) 0.02 K/uL (0-0.5); Eosinophils % (auto) 0.3 %; Hemoglobin 10.7 g/dL (14.0-18.0); Immature Granulocytes # (auto) 0.01 K/uL (0.00-0.02); Immature Granulocytes % (auto) 0.1 %; Lymphocytes # (auto) 0.46 K/uL (1.2-3.4); Lymphocytes % (auto) 6.4 %; Mean Corpuscular Hemoglobin 29.1 pg (25-34); Mean Corpuscular Hgb Conc 29.7 g/dL (32-36); Mean Corpuscular Volume 97.8 fL (80-100); Mean Platelet Volume 9.6 fL (7.4-10.4); Monocytes % (auto) 1.4 %; Neutrophils # (auto) 6.61 K/uL (1.4-6.5); Neutrophils % (auto) 91.8 %; Platelet Count 228 K/uL (130-400); RDW Coefficient of Variation 14.5 % (11.5-14.5); RDW Standard Deviation 51.7 fL (36.4-46.3); Red Blood Count 3.68 M/uL (4.7-6.1)
--- NOTE | 2021-03-09 06:35 | Hospitalist Progress Note ---
Date of Service March 09, 2021 Assessment & Plan (1) Acute and chronic respiratory failure with hypercapnia: Plan: 70 year old male past medical history of severe COPD on 3-4L at home, HTN, Alcohol abuse, peripheral neuropathy, SIADH, prostatitis admitted to ICU for acute exacerbation of severe COPD and VDRF. Ventilatory-Dependent Respiratory Failure -- [id number] hypoxic/hypercapnic respiratory failure -With significant COPD history, requiring 3-4L O2 at baseline. No h/o HF. RLL opacity noted on admission. No PE on CTA. -Suspect primarily secondary to severe COPD exacerbation -Continue scheduled Duoneb, Incruse Ellipta, Albuterol, Fluticasone -Continue SoluMedrol, add Perforomist + budesonide -ICU adjusting/weening vent as tolerated -- respiratory acidosis improved this AM on ABG RLL Opacity -Noted on chest imaging on admission, initially concerning for infectious etiology -No significant leukocytosis. Procal negative. BioFire negative. -Unlikely PNA. Discontinue Zosyn. COPD Exacerbation: -As above. Scheduled DuoNeb. Home inhalers. SoluMedrol. -Ween vent as tolerated. Saccular Aneurysm of ICA - Incidental finding on CTA; overnight provider spoke with [facility], no acute recommendations - Vascular surgery consulted for further aid in care - Holding DVT PPX at this time Essential hypertension: -BP stable, hold metoprolol and furosemide while patient intubated. SMA & Celiac artery aneurysm: -CTA chest showed unchanged aneurysm from 2019. Maintain normotension. Continue to monitor vitals for instability. Peripheral neuropathy: -Hold pregabalin, sumatriptan, venlafaxine while patient intubated. History of Alcohol Abuse: -Blood alcohol level <3.0, told ED staff minimal drinking recently, monitor for withdrawal. History of SIADH: -Stable. Monitor BMP. Dispo: ICU admit Code status: Full code Diet: NPO while MV PPX: Held initially in setting of saccular aneurysm discovery (2) COPD, severe: (3) Essential hypertension: (4) Superior mesenteric artery aneurysm: (5) Peripheral neuropathy: (6) Aneurysm artery, celiac: (7) SIADH (syndrome of inappropriate ADH production): Admission and Anticipated Discharge Date Admission Date: March 09, 2021 Supervising Physician Co-Signing Physician Notes I personally examined the patient and verified all hurley points of history and exam, discussed case, and agree with decision making with Dr Mathews. On the ventilator, no HPI or review of systems obtainable. Vitals noted, even chest rise and fall on the vent, discussed with RTno new/worsening issues identified through the day. Skin without rashes, pallor, icterus. Possible pneumonia and COPD exacerbation causing hypercapnic metabolic encephalopathy and acute hypoxic/hypercapnic respiratory failurecontinue current care. Subjective Patient remains mechanically ventilated. No acute changes overnight. Unable to provide history with ongoing sedation mechanical ventilation. Review of Systems Review of Systems: Unobtainable due to endotracheal tube and Unobtainable due to reduced consciousness Physical Exam Physical Exam: General: Ill-appearing 70-year-old male with endotracheal tube in place, mechanically ventilated with ongoing sedation. HEENT: No evidence of jugular venous distention. ETT in place. Cardiac: Normal rate, regular rhythm, S1 and S2 present without murmurs rubs or gallops. Pulmonary: Mechanically ventilated. Lungs grossly sounds clear to auscultation bilaterally without obvious crackles or wheezes. Barrel chest noted. Abdominal: Abdomen is soft and nondistended. Extremities: Lower extremities demonstrate bilateral 1+ pitting edema. No fina thema or rash. Results & Data Results & Data ([facility]) Vital Signs (Past 12 Hours) Vital Signs Temp Pulse Pulse Resp BP BP Pulse Ox 03/09/21 06:00 36.6 C 81 28 H 100/66 97 03/09/21 05:30 36.5 C 82 28 H 97 03/09/21 05:00 36.5 C 81 28 H 98/67 L 97 03/09/21 04:30 36.4 C L 81 28 H 97 03/09/21 04:25 78 28 H 95 03/09/21 04:00 36.5 C 81 28 H 105/65 94 03/09/21 03:30 84 28 H 93 03/09/21 03:29 36.8 C 84 22 117/72 93 03/09/21 03:19 88 03/09/21 02:49 77 93 03/09/21 02:45 83 29 H 95 03/09/21 02:30 82 28 H 97/66 L 95 03/09/21 02:15 84 28 H 95/66 L 96 03/09/21 02:00 79 28 H 107/72 95 03/09/21 01:45 83 28 H 92/69 L 97 03/09/21 01:34 28 H 95 03/09/21 01:30 83 28 H 111/78 95 03/09/21 01:15 83 28 H 98/69 L 95 03/09/21 01:00 85 28 H 92/67 L 96 03/09/21 00:45 85 28 H 109/74 94 03/09/21 00:30 83 28 H 95 03/09/21 00:15 83 28 H 105/77 95 03/09/21 00:00 87 28 H 115/85 97 03/08/21 23:45 84 28 H 122/80 98 03/08/21 23:30 85 28 H 126/81 99 03/08/21 23:22 84 28 H 98 03/08/21 23:15 84 30 H 99 03/08/21 23:00 85 28 H 98 03/08/21 22:45 82 28 H 146/85 H 100 03/08/21 22:40 28 H 03/08/21 22:30 81 20 145/89 H 100 03/08/21 22:15 86 2 L 139/81 100 03/08/21 22:00 86 20 139/74 100 03/08/21 21:45 85 20 130/85 100 03/08/21 21:30 83 20 140/87 100 03/08/21 21:15 82 20 126/97 100 03/08/21 21:00 85 20 131/85 100 03/08/21 20:45 85 20 153/88 H 100 03/08/21 20:30 87 20 157/94 H 100 03/08/21 20:15 92 H 22 134/88 100 03/08/21 20:00 88 22 143/88 H 100 03/08/21 19:40 93 H 22 142/83 H 98 03/08/21 19:30 95 H 22 151/90 H 97 03/08/21 19:20 99 H 22 157/94 H 96 03/08/21 19:15 103 H 20 98 03/08/21 19:00 103 H 20 98 03/08/21 18:58 36.8 C 80 18 94 03/08/21 18:45 110 H 22 98 Resident Activity Tracking Resident Involvement: Resident Care Provided Care Provided: Adult Hospital Medicine (1) Peripheral neuropathy Peripheral neuropathy type: polyneuropathy, unspecified Qualified Code(s): G62.9 - Polyneuropathy, unspecified
[2021-03-09 06:44] LABS: BUN Creatinine Ratio 16.1 (10-20); Calcium 8.8 mg/dl (8.5-10.1); Creatinine Clr Calc Pharmacy 81.7 ml/min; Est GFR (African American) 94.9 ml/min; Est GFR (Non-African American) 81.9 ml/min; Magnesium 2.1 mg/dl (1.8-2.4); Potassium 4.2 mmol/L (3.5-5.1)
[2021-03-09] MEDS ORDERED: SODIUM PHOSPHATE 3 MMOL/1 ML INFUSION IV STA (06:49)
[2021-03-09] MEDS ORDERED: SODIUM PHOSPHATE 15 MMOL in SODIUM CHLORIDE 0.9% 250 ML IV SCH (07:15)
[2021-03-09] MEDS ORDERED: methylPREDNISolone 80 MG in SYRINGE 0 ML IV SCH (08:00)
--- NOTE | 2021-03-09 08:16 | XRay Report ---
XR chest 1V portable CLINICAL HISTORY: Resp failure. Status post ET tube repositioning COMPARISON STUDY: 03/08/2021 TECHNIQUE: 1 view of the chest FINDINGS: Single frontal view of the chest demonstrates the cardiomediastinal silhouette to be within normal li mits. Endotracheal tube has been retracted so that its tip is now 2.3 cm above the digna. The lungs are clear of alveolar opacities. There is no evidence for pleural effusion. There is no evidence for vascular congestion. There is no acute osseous pathology. IMPRESSION: No acute cardiopulmonary disease. ET tube retracted into a more anatomic position. ACT 112: Negative or not required by law. Electronically signed by: Pineda Ng M.D. 03/09/2021 8:15 AM
--- NOTE | 2021-03-09 08:38 | Critical Care Progress Note ---
Date of Service March 09, 2021 Assessment & Plan (1) Carotid aneurysm, right: Plan: Reason Critically Ill: 70-year-old male presented to the emergency department obtunded with hypercapnic respiratory failure requiring emergent intubation, transferred to ICU for ongoing care. Neuro - Encephalopathypatient obtunded on arrival to ED, secondary to hypercapnia with patient CO2 109 on VBG. CO2 improving on blood gas this AM to 54. Peripheral neuropathyhold home regimen for now Right ICA 9 mm saccular aneurysmcoincidental finding on CTA. [facility] by primary team and recommended outpatient follow-up with n eurosurgery. Maintain normotension. Will consult Vascular surgery for further evaluation. Cardiac - Currently hemodynamically stable, off of vasopressors.Continuous monitor on telemetry HTNmaintain normotension. Continue MTP. 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 Right ICA aneurysm as above. -Maintain normotension and avoid anticoagulation if possible Respiratory - Acute hypercapnic respiratory failurepatient with history of severe COPD presents with COPD exacerbation with CO2 109. Obtunded and requiring intubation after failing BiPAP. -CTA without evidence of PE. Mild right lower lobe airspace opacity, possible infection. Severe emphysema. -See ID below for pulmonary coverage. -Continue with IV Solu-Medrol -DuoNeb every 6. Will add Perforomist and budesonide while intubated .Continue home regimen inhalers when able. -Continuous ET CO2 and pulse ox monitor -Wean vent as tolerated -Mechanical vent setting adjusted to avoid auto-PEEP/breath stacking; will repeat VBG one hour after GI - NPO IV famotidine twice daily RENAL/LYTES - Creatinine within normal limits, monitor routine BMP and replete electrolytes as indicated SIADHsodium 139, potassium 4.2. Monitor. - Foleystrict I's and O's ENDO - No history of diabetes or thyroid disease ICU hyperglycemic protocol HEME - H&H stable, monitor routine CBC ID - WBC 10.8, afebrile, pro Levy and lactate within normal limits Blood cultures pending CTA chest with mild right lower lobe airspace opacity which may be concerning for infectious process Nasal MRSA negative Initially on Zosyn -- will DC as no signs of PNA apart from opacity on imaging (afebrile, no leukocytosis, no lower resp symptoms) LINES/IV ACCESS: Peripheral IVs, OG tube, ET tube DVT PROPHYLAXIS: SCDs, hold anticoagulation in the setting of right ICA saccular aneurysm CODE: FULL CODE DISPO: Remain in ICU (2) Encephalopathy acute: (3) Acute and chronic respiratory failure with hypercapnia: (4) Essential hypertension: (5) BPH loc w urin obs/LUTS: (6) Hematuria: (7) Superior mesenteric artery aneurysm: (8) Chronic prostatitis: (9) SIADH (syndrome of inappropriate ADH production): (10) COPD, severe: Admission and Anticipated Discharge Date Admission Date: March 09, 2021 Supervising Physician Co-Signing Physician Notes Patient seen and examined. Discussed on multidisciplinary rounds as well as with the bedside critical care nurse. Discussed with overnight critical care DAYANARA. Agree with assessment plan as noted by [employer] practice resident. Patient has hypercarbic respiratory failure with in the setting of advanced COPD. No evidence of pneumonia so antibiotics will be discontinued. We will continue azithromycin for acute exacerbation of COPD. Review of his ventilatory settings demonstrated significant air trapping with auto PEEP. We adjusted his vent with increased tidal volume and lower respiratory rate with improvement in auto PEEP and airflow trapping. Continue bronchodilators but transition to Perforomist, budesonide, and DuoNebs as needed. Will decrease his Solu-Medrol. Will reassess for potential extubation later today or tomorrow depending on his clinical course. Okay to hold on tube feeding for now in hopes of ventilator liberation within the next 12 to 24 hours. The patient is critically ill at this point time with life-threatening illness. Significant possibility of loss of life or limb. A total of 47 minutes in critical care time was spent in evaluation management stabilization of this patient to this point. Subjective Patient sedated and mechanically ventilated. Subjective unable to be obtained. Review of Systems Review of Systems: Unobtainable due to cognitive status and Unobtainable due to endotracheal tube Physical Exam Physical Exam: GENERAL: Mechanically ventilated. NAD. HEENT: PERRL, ETT in place. CHEST/LUNGS: Diminished bilaterally at bases. No crackles, wheezes, rales, rhonchi. HEART: RRR. No m/g/r. ABDOMEN: ND, soft. BS hypoactive EXTREMITIES: BLE edema present SKIN: Warm and dry. No rashes or lesions. NEUROLOGIC: Patient is sedatec, neurologic exam not able to be assessed Results & Data Results & Data ([facility]) Vital Signs (Past 12 Hours) Vital Signs Temp Pulse Pulse Resp BP BP Pulse Ox 03/09/21 07:05 78 28 H 96 03/09/21 06:00 36.6 C 81 28 H 100/66 97 03/09/21 05:30 36.5 C 82 28 H 97 03/09/21 05:00 36.5 C 81 28 H 98/67 L 97 03/09/21 04:30 36.4 C L 81 28 H 97 03/09/21 04:25 78 28 H 95 03/09/21 04:00 36.5 C 81 28 H 105/65 94 03/09/21 03:30 84 28 H 93 03/09/21 03:29 36.8 C 84 22 117/72 93 03/09/21 03:19 88 03/09/21 02:49 77 93 03/09/21 02:45 83 29 H 95 03/09/21 02:30 82 28 H 97/66 L 95 03/09/21 02:15 84 28 H 95/66 L 96 03/09/21 02:00 79 28 H 107/72 95 03/09/21 01:45 83 28 H 92/69 L 97 03/09/21 01:34 28 H 95 03/09/21 01:30 83 28 H 111/78 95 03/09/21 01:15 83 28 H 98/69 L 95 03/09/21 01:00 85 28 H 92/67 L 96 03/09/21 00:45 85 28 H 109/74 94 03/09/21 00:30 83 28 H 95 03/09/21 00:15 83 28 H 105/77 95 03/09/21 00:00 87 28 H 115/85 97 03/08/21 23:45 84 28 H 122/80 98 03/08/21 23:30 85 28 H 126/81 99 03/08/21 23:22 84 28 H 98 03/08/21 23:15 84 30 H 99 03/08/21 23:00 85 28 H 98 03/08/21 22:45 82 28 H 146/85 H 100 03/08/21 22:40 28 H 03/08/21 22:30 81 20 145/89 H 100 03/08/21 22:15 86 2 L 139/81 100 03/08/21 22:00 86 20 139/74 100 03/08/21 21:45 85 20 130/85 100 03/08/21 21:30 83 20 140/87 100 03/08/21 21:15 82 20 126/97 100 03/08/21 21:00 85 20 131/85 100 03/08/21 20:45 85 20 153/88 H 100 03/08/21 20:30 87 20 157/94 H 100 Resident Activity Tracking Resident Involvement: Resident Care Provided Care Provided: Adult Hospital Medicine
[2021-03-09] MEDS ORDERED: FLUTICASONE/VILANTEROL 100/25MCG 14 PUFFS/INHALER INH SCH (09:00)
[2021-03-09] MEDS ORDERED: UMECLIDINIUM BROMIDE 62.5MCG/BLISTER 7 PUFFS/INHALER INH SCH (09:00)
[2021-03-09] MEDS: FAMOTIDINE 20 MG in SYRINGE 3 ML IV SCH ×2 (09:07→19:54)
[2021-03-09] MEDS ORDERED: AZITHROMYCIN 250 MG TAB PO ONE (10:15)
[2021-03-09 10:33] LABS: Base Excess VBG 4.8 mEq/L; HCO3 VBG 33 mmol/L; PCO2 VBG 67 mmHg (38-50); PO2 VBG 63 mmHg; pH VBG 7.31 (7.36-7.41)
[2021-03-09 10:42] LABS: Oxygen Saturation VBG < 60.0 %
--- NOTE | 2021-03-09 10:59 | Billing Data ---
Date of Service March 09, 2021 Coding Level of Care Code Critical Care 1st 30-74 mins Time Spent (min) 47
[2021-03-09 11:26] LABS: iSTAT Blood Urea Nitrogen 16 mg/dl (7-18); iSTAT Carbon Dioxide < 5 mmol/L (24-31); iSTAT Chloride 99 mmol/L (101-112); iSTAT Glucose 199 mg/dl (70-99); iSTAT Hematocrit 40 % (42-52); iSTAT Hemoglobin 13.6 g/dl (14.0-18.0); iSTAT Ionized Calcium 1.33 mmol/l (1.12-1.32); iSTAT Potassium 4.7 mmol/L (3.3-5.0); iSTAT Sodium 140 mmol/L (135-144)
[2021-03-09] MEDS: FORMOTEROL 20 MCG/2 ML VIAL NEB SCH ×2 (11:55→19:00)
[2021-03-09 12:33] LABS: iSTAT Allen Test Pass; iSTAT Arterial Blood Gas HCO3 32 meg/L (19-24); iSTAT Arterial Blood Gas pCO2 64 mmHg (35-46); iSTAT Arterial Blood Gas pH 7.31 (7.35-7.45); iSTAT Arterial Blood Gas pO2 81 mmHg (80-95); iSTAT Carbon Dioxide 34 mmol/L (24-31); iSTAT FiO2 40 %; iSTAT Site L Radial
--- NOTE | 2021-03-09 15:44 | Electrocardiogram Report ---
Test Reason : Blood Pressure : / mmHG Vent. Rate : 096 BPM Atrial Rate : 096 BPM P-R Int : 200 ms QRS Dur : 078 ms QT Int : 360 ms P-R-T Axes : 074 052 058 degrees QTc Int : 454 ms Normal sinus rhythm Normal ECG When compared with ECG of 31-JAN-2019 11:39, No significant change was found Confirmed by Salas Hernandez ([id number]) on 03/09/2021 3:44:26 PM Referred By: REFERRED SELF Confirmed By:Salas Hernandez
[2021-03-09] MEDS: VENLAFAXINE HCL 50 MG TAB PO SCH ×2 (16:39→19:50)
[2021-03-09] MEDS: methylPREDNISolone 30 MG in SYRINGE 0 ML IV SCH (17:40)
--- NOTE | 2021-03-09 18:56 | Billing Data ---
Date of Service March 09, 2021 Coding Level of Care Code 36626 Subseq Hosp Care Lvl 1
[2021-03-09] MEDS: BUDESONIDE 0.5 MG/2 ML VIAL (PULMICORT) NEB SCH (18:59)
[2021-03-09] MEDS: HEPARIN SOD 5,000 UNIT/0.5 ML VIAL SQ SCH (19:50)
[2021-03-10] MEDS: fentaNYL DRIP 1,250 MCG/250 ML BAG IV SCH (01:31)
[2021-03-10] MEDS: propofoL 1,000 MG/100 ML VIAL IV SCH ×3 (01:32→11:18)
[2021-03-10] MEDS: ALBUT/IPRATROP 3MG/0.5MG NEB 3 ML VIAL NEB SCH ×4 (03:36→15:41)
--- NOTE | 2021-03-10 04:05 | Billing Data ---
Date of Service March 10, 2021 Coding Level of Care Code Critical Care 05 01- mins
[2021-03-10] MEDS: methylPREDNISolone 30 MG in SYRINGE 0 ML IV SCH ×2 (04:18→11:18)
[2021-03-10 05:00] LABS: iSTAT Allen Test Pass; iSTAT Arterial Blood Gas HCO3 33 meg/L (19-24); iSTAT Arterial Blood Gas pCO2 62 mmHg (35-46); iSTAT Arterial Blood Gas pH 7.33 (7.35-7.45); iSTAT Arterial Blood Gas pO2 81 mmHg (80-95); iSTAT Carbon Dioxide 34 mmol/L (24-31); iSTAT FiO2 40 %; iSTAT Site R Radial
[2021-03-10 05:07] LABS: Hematocrit (blood only) 33.4 % (42-52); Immature Granulocytes # (auto) 0.02 K/uL (0.00-0.02); Immature Granulocytes % (auto) 0.2 %; Lymphocytes # (auto) 0.71 K/uL (1.2-3.4); Lymphocytes % (auto) 6.4 %; Mean Corpuscular Hemoglobin 28.5 pg (25-34); Mean Corpuscular Hgb Conc 29.9 g/dL (32-36); Mean Corpuscular Volume 95.2 fL (80-100); Mean Platelet Volume 9.1 fL (7.4-10.4); Monocytes # (auto) 1.14 K/uL (0.11-0.59); Monocytes % (auto) 10.2 %; Neutrophils # (auto) 9.31 K/uL (1.4-6.5); Neutrophils % (auto) 83.2 %; Platelet Count 223 K/uL (130-400); RDW Coefficient of Variation 14.7 % (11.5-14.5); RDW Standard Deviation 51.3 fL (36.4-46.3); Red Blood Count 3.51 M/uL (4.7-6.1); White Blood Count 11.18 K/uL (4.8-10.8)
[2021-03-10 05:34] LABS: BUN Creatinine Ratio 23.8 (10-20); Calcium 8.8 mg/dl (8.5-10.1); Creatinine Clr Calc Pharmacy 88.2 ml/min; Est GFR (African American) 102.3 ml/min; Est GFR (Non-African American) 88.3 ml/min; Magnesium 2.4 mg/dl (1.8-2.4); Potassium 4.1 mmol/L (3.5-5.1)
--- NOTE | 2021-03-10 05:42 | Hospitalist Progress Note ---
Date of Service March 10, 2021 Assessment & Plan (1) Acute and chronic respiratory failure with hypercapnia: Plan: 70 year old male past medical history of severe COPD on 3-4L at home, HTN, Alcohol abuse, peripheral neuropathy, SIADH, prostatitis admitted to ICU for acute exacerbation of severe COPD and VDRF. Ventilatory-Dependent Respiratory Failure -- [id number] hypoxic/hypercapnic respiratory failure -With significant COPD history, requiring 3-4L O2 at baseline. No h/o HF. RLL opacity noted on admission. No PE on CTA. -Suspect primarily secondary to severe COPD exacerbation -Continue scheduled Duoneb, Incruse Ellipta, Albuterol, Fluticasone -Stop Perforomist + budesonide -Transition to prednisone from methylprednisolone -- continue x 5d -Azithromycin: continue as PO x 5d -Weened off vent successfully. Continue NC for now --> ween back to 3-4L O2 RLL Opacity -Noted on chest imaging on admission, initially concerning for infectious etiology -No significant leukocytosis. Procal negative. BioFire negative. -Unlikely PNA. Discontinue Zosyn. COPD Exacerbation: -As above. Scheduled DuoNeb. Home inhalers. SoluMedrol. -Ween vent as tolerated. Saccular Aneurysm of ICA - Incidental finding on CTA; overnight provider spoke with [facility] [place], no acute recommendations - Vascular surgery consulted for further aid in care - Holding DVT PPX at this time Essential hypertension: -BP stable, resume metoprolol and furosemide SMA & Celiac artery aneurysm: -CTA chest showed unchanged aneurysm from 2019. Maintain normotension. Continue to monitor vitals for instability. Peripheral neuropathy: -Resume pregabalin, sumatriptan, venlafaxine History of Alcohol Abuse: -Blood alcohol level <3.0, told ED staff minimal drinking recently, monitor for withdrawal. History of SIADH: -Stable. Monitor BMP. Dispo: PCU Code status: Full code Diet: NPO while MV PPX: Held initially in setting of saccular aneurysm discovery (2) COPD, severe: (3) Essential hypertension: (4) Superior mesenteric artery aneurysm: (5) Peripheral neuropathy: (6) Aneurysm artery, celiac: (7) SIADH (syndrome of inappropriate ADH production): Admission and Anticipated Discharge Date Admission Date: March 08, 2021 Supervising Physician Co-Signing Physician Notes I personally examined the patient and verified all hurley points of history and exam, discussed case, and agree with decision making with Dr Mathews. Off of ventilator talkative. Tells me that he stopped drinking a while ago. Vitals noted, awake talkative hard to gauge orientation but given his impulsivity, I would suspect he is quite disoriented. No distress. HEENT normocephalic atraumatic mucous membranes moist. Lungs are very quiet throughout but no adventitious findings, no accessory muscle use no rales rhonchi or wheezes. Neuro without focal deficits. Possible pneumonia and COPD exacerbation causing hypercapnic metabolic encephalopathy and acute hypoxic/hypercapnic respiratory failurecontinue current care. Improving, safe/stable for move to telemetry Pharmacologic prophylaxis held due to aneurysm/etc., initiallybut safe now on heparin subcu, as clearly this is not a bleeding issue. Subjective Patient remains mechanically ventilated. No acute changes overnight. Unable to provide history with ongoing sedation mechanical ventilation. Review of Systems Review of Systems: Unobtainable due to cognitive status and Unobtainable due to endotracheal tube Physical Exam Physical Exam: At time of my visitation in the morning --- General: Ill-appearing 70-year-old male with endotracheal tube in place, mechanically ventilated with ongoing sedation. HEENT: No evidence of jugular venous distention. ETT in place. Cardiac: Normal rate, regular rhythm, S1 and S2 present without murmurs rubs or gallops. Pulmonary: Mechanically ventilated. Lungs grossly sounds clear to auscultation bilaterally without obvious crackles or wheezes. Barrel chest noted. Abdominal: Abdomen is soft and nondistended. Extremities: Lower extremities demonstrate bilateral 1+ pitting edema. No erythema or rash. Results & Data Results & Data ([facility]) Vital Signs (Past 12 Hours) Vital Signs Temp Pulse Pulse Resp BP Pulse Ox 03/10/21 03:53 15 03/10/21 03:36 73 15 94 03/10/21 02:00 36.2 C L 71 13 108/70 99 03/10/21 01:30 36.2 C L 71 15 100 03/10/21 01:00 36.3 C L 73 15 97 03/10/21 00:30 36.3 C L 81 15 03/10/21 00:03 81 03/10/21 00:00 36.4 C L 78 15 87 L 03/09/21 23:36 68 15 91 03/09/21 23:30 36.4 C L 78 15 91 03/09/21 23:11 76 15 90 03/09/21 23:00 36.3 C L 81 15 125/62 93 03/09/21 22:30 36.5 C 73 15 128/67 97 03/09/21 22:00 36.5 C 73 15 98 03/09/21 21:30 36.5 C 74 15 98 03/09/21 21:00 36.6 C 73 15 98 03/09/21 20:30 36.6 C 77 15 152/81 H 96 03/09/21 20:00 36.6 C 79 15 96 03/09/21 19:30 36.7 C 76 15 95 03/09/21 19:00 36.8 C 77 74 15 95 03/09/21 18:30 36.8 C 74 15 98 03/09/21 18:00 36.8 C 73 15 94 Resident Activity Tracking Resident Involvement: Resident Care Provided Care Provided: Adult Hospital Medicine (1) Peripheral neuropathy Peripheral neuropathy type: polyneuropathy, unspecified Qualified Code(s): G62.9 - Polyneuropathy, unspecified
[2021-03-10 05:46] LABS: Phosphorus 3.8 mg/dl (2.5-4.9)
--- NOTE | 2021-03-10 07:37 | XRay Report ---
XR chest 1V portable HISTORY: 70 years-old Male Resp failure acute respiratory failure COMPARISON: Chest radiograph 03/09/2021 TECHNIQUE: Portable AP view of the chest FINDINGS: Cardiomediastinal and hilar silhouettes are unchanged. Endotracheal tube overlies the midline, 8 mm s uperior to the digna. Enteric tube courses below the diaphragm with distal tip outside the field-of- view. No pneumothorax, large pleural effusion or overt pulmonary edema. Mild bilateral interstitial c oarsening redemonstrated. Emphysema. Degenerative changes of the shoulders and spine. IMPRESSION: 1. The endotracheal tube terminates 8 mm superior to the digna. Mild retraction recommended with fol low-up imaging. 2. Emphysema with chronic interstitial coarsening. ACT 112: Negative or not required by law. The above report was generated using voice recognition software. It may contain grammatical, syntax o r spelling errors. Electronically signed by: Jayme Portillo M.D. 03/10/2021 7:35 AM
[2021-03-10] MEDS: VENLAFAXINE HCL 50 MG TAB PO SCH ×2 (07:39→14:30)
[2021-03-10] MEDS: AZITHROMYCIN 250 MG TAB PO SCH (07:41)
[2021-03-10] MEDS: HEPARIN SOD 5,000 UNIT/0.5 ML VIAL SQ SCH ×2 (07:41→20:11)
[2021-03-10] MEDS: FORMOTEROL 20 MCG/2 ML VIAL NEB SCH (08:06)
[2021-03-10] MEDS: BUDESONIDE 0.5 MG/2 ML VIAL (PULMICORT) NEB SCH (08:06)
[2021-03-10] MEDS: FAMOTIDINE 20 MG in SYRINGE 3 ML IV SCH ×2 (08:07→20:10)
--- NOTE | 2021-03-10 08:40 | Critical Care Progress Note ---
Date of Service March 10, 2021 Assessment & Plan (1) Carotid aneurysm, right: Plan: Reason Critically Ill: 70-year-old male presented to the emergency department obtunded with hypercapnic respiratory failure requiring emergent intubation, transferred to ICU for ongoing care. Neuro - Encephalopathypatient obtunded on arrival to ED, secondary to hypercapnia with patient CO2 109 on VBG on admission. Hypercapnia improving. Able to be extubated 12/9 AM. Peripheral neuropathyhold home regimen for now Right ICA 9 mm saccular aneurysmcoincidental finding on CTA. [facility] by primary team and recommended outpatient follow-up with neurosurgery. Maintain normotension.No vascular surgery intervention indicated. Cardiac - Hemodynamically stable, off of vasopressors.Continuous monitor on telemetry. HTNmaintain normotension. Continue MTP. 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 Right ICA aneurysm as above. -Maintain normotension and avoid anticoagulation if possible Respiratory - Acute hypercapnic respiratory failurepatient with history of severe COPD presents with COPD exacerbation with CO2 109. Obtunded and requiring intubation after failing BiPAP. -CTA without evidence of PE. Mild right lower lobe airspace opacity, possible infection. Severe emphysema. -Sedation able to be weaned and patient successfully extubated--now on 6L nasal cannula -Discontinue nebulized respiratory treatments and restart home inhaler regimen. -DC IV SoluMedrol, start Prednisone 20mg PO daily. -Azithromycin 250mg daily for COPD exacerbation -PT/PT ordered GI - Diet to be restarted as patient tolerates IV famotidine twice daily RENAL/LYTES - Creatinine within normal limits, monitor routine BMP and replete electrolytes as indicated SIADHsodium 139, potassium 4.2. Monitor. - Marquez to be removed ENDO - No history of diabetes or thyroid disease ICU hyperglycemic protocol HEME - H&H stable, monitor routine CBC ID - WBC 10.8, afebrile, pro Levy and lactate within normal limits Blood cultures pending CTA chest with mild right lower lobe airspace opacity which may be concerning for infectious process Nasal MRSA negative Initially on Zosyn -- DC'd as no signs of PNA apart from opacity on imaging (afebrile, no leukocytosis, no lower resp symptoms) Azithromycin 250mg daily for COPD exacerbation LINES/IV ACCESS:Peripheral IVs, OG tube, ET tube DVT PROPHYLAXIS:Heparin 5000U SQ q12h CODE:FULL CODE DISPO:Remain in ICU (2) Acute and chronic respiratory failure with hypercapnia: (3) SIADH (syndrome of inappropriate ADH production): (4) COPD, severe: (5) Encephalopathy acute: (6) Hypoxia: (7) Essential hypertension: Admission and Anticipated Discharge Date Admission Date: March 08, 2021 Supervising Physician Co-Signing Physician Notes Patient seen and examined. EMR reviewed. Discussed on multidisciplinary rounds and with critical care nurse at bedside. Agree with assessment and plan as documented by [facility] resident. Patient improved significantly this morning. He passed an SBT and was subsequently extubated. He states he is breathing well. His pulmonary toilet is doing well. Transition to conventional inhalers, discontinue marquez. advance diet and OOB as tolerated. PT and OT. should be able to transfer to floor later today if doing well. We will follow peripherally for pulmonary issues on the floor. Transition to oral prednisone and azithromycin for 5 days. Subjective Patient remains mechanically ventilated. No acute changes overnight. Unable to provide subjective due to ETT. Review of Systems Review of Systems: Unobtainable due to endotracheal tube Physical Exam Physical Exam: GENERAL: Mechanically ventilated. Opens eyes spontaneously. NAD. HEENT: PERRL, ETT in place. CHEST/LUNGS: Diminished bilaterally at bases. No crackles, wheezes, rales, rhonchi. HEART: RRR. No m/g/r. ABDOMEN: ND, soft. BS hypoactive EXTREMITIES: BLE edema SKIN: Warm and dry. No rashes or lesions. NEUROLOGIC: Opens eyes spontaneously. Moves all 4 extremities. Not following commands--further neuro exam unable to be performed. Results & Data Results & Data ([facility]) Vital Signs (Past 12 Hours) Vital Signs Temp Pulse Pulse Resp BP Pulse Ox 03/10/21 08:06 70 70 15 97 03/10/21 06:00 36.0 C L 70 15 98 03/10/21 05:30 36.0 C L 78 15 98 03/10/21 05:00 36.0 C L 77 13 142/75 H 97 03/10/21 04:30 36.0 C L 73 15 95 03/10/21 04:00 36.0 C L 74 15 96 03/10/21 03:53 15 03/10/21 03:36 73 15 94 03/10/21 03:30 36.1 C L 72 16 93 03/10/21 03:00 36.1 C L 72 15 93 03/10/21 02:30 36.1 C L 80 15 85 L 03/10/21 02:00 36.2 C L 71 13 108/70 99 03/10/21 01:30 36.2 C L 71 15 100 03/10/21 01:00 36.3 C L 73 15 97 03/10/21 00:30 36.3 C L 81 15 03/10/21 00:03 81 03/10/21 00:00 36.4 C L 78 15 87 L 03/09/21 23:36 68 15 91 03/09/21 23:30 36.4 C L 78 15 91 03/09/21 23:11 76 15 90 03/09/21 23:00 36.3 C L 81 15 125/62 93 03/09/21 22:30 36.5 C 73 15 128/67 97 03/09/21 22:00 36.5 C 73 15 98 03/09/21 21:30 36.5 C 74 15 98 03/09/21 21:00 36.6 C 73 15 98 Resident Activity Tracking Resident Involvement: Resident Care Provided Care Provided: Adult Hospital Medicine
[2021-03-10] MEDS: predniSONE 20 MG TAB PO SCH (12:27)
--- NOTE | 2021-03-10 15:09 | Billing Data ---
Date of Service March 10, 2021 Coding Level of Care Code 91319 Subseq Hosp Care Lvl 3
[2021-03-10] MEDS ORDERED: SUMAtriptan succinate 50 MG TAB PO PRN (16:06)
[2021-03-10] MEDS ORDERED: NON-FORMULARY MEDICATION (Nebulizer Accessories kit) SCH (16:06)
--- NOTE | 2021-03-10 17:06 | Billing Data ---
Date of Service March 10, 2021 Coding Level of Care Code 57006 Subseq Hosp Care Lvl 2
--- NOTE | 2021-03-10 17:07 | Billing Data ---
Date of Service March 10, 2021 Coding Level of Care Code 09040 Subseq Hosp Care Lvl 2
[2021-03-10] MEDS: FUROSEMIDE 20 MG TAB PO SCH (17:50)
[2021-03-10] MEDS: PREGABALIN 100 MG CAP PO SCH (20:08)
[2021-03-10] MEDS: ASCORBIC ACID 500 MG TAB PO SCH (20:08)
[2021-03-10] MEDS: SODIUM CHLORIDE 1 GM TABLET PO SCH (20:09)
[2021-03-10] MEDS: ALBUT/IPRATROP 3MG/0.5MG NEB 3 ML VIAL INH PRN (20:14)
[2021-03-11] MEDS: ALBUT/IPRATROP 3MG/0.5MG NEB 3 ML VIAL INH PRN (04:17)
[2021-03-11 05:00] LABS: Basophils # (auto) 0.01 K/uL (0-0.2); Basophils % (auto) 0.1 %; Eosinophils # (auto) 0.06 K/uL (0-0.5); Eosinophils % (auto) 0.7 %; Immature Granulocytes # (auto) 0.01 K/uL (0.00-0.02); Immature Granulocytes % (auto) 0.1 %; Lymphocytes # (auto) 1.33 K/uL (1.2-3.4); Lymphocytes % (auto) 15.7 %; Mean Corpuscular Hemoglobin 28.3 pg (25-34); Mean Corpuscular Hgb Conc 30.3 g/dL (32-36); Mean Corpuscular Volume 93.5 fL (80-100); Mean Platelet Volume 9.8 fL (7.4-10.4); Monocytes # (auto) 1.02 K/uL (0.11-0.59); Monocytes % (auto) 12.1 %; Neutrophils # (auto) 6.03 K/uL (1.4-6.5); Neutrophils % (auto) 71.3 %; Platelet Count 243 K/uL (130-400); RDW Coefficient of Variation 14.6 % (11.5-14.5); RDW Standard Deviation 49.7 fL (36.4-46.3); Red Blood Count 3.53 M/uL (4.7-6.1); White Blood Count 8.46 K/uL (4.8-10.8)
[2021-03-11 05:53] LABS: BUN Creatinine Ratio 23.4 (10-20); Calcium 8.9 mg/dl (8.5-10.1); Creatinine Clr Calc Pharmacy 89.2 ml/min; Est GFR (African American) 102.8 ml/min; Est GFR (Non-African American) 88.7 ml/min; Magnesium 2.2 mg/dl (1.8-2.4); Potassium 3.4 mmol/L (3.5-5.1)
[2021-03-11] MEDS ORDERED: POTASSIUM CHLORIDE CRTAB 20 MEQ TABCR PO STA (06:32)
--- NOTE | 2021-03-11 06:39 | Hospitalist Progress Note ---
Date of Service March 11, 2021 Assessment & Plan (1) Acute and chronic respiratory failure with hypercapnia: Plan: 70 year old male past medical history of severe COPD on 3-4L at home, HTN, Alcohol abuse, peripheral neuropathy, SIADH, prostatitis admitted to ICU for acute exacerbation of severe COPD and VDRF, now successfully extubated and back to his home O2 requirement. COPD Exacerbation -- [id number] hypoxic/hypercapnic respiratory failure -With significant COPD history, requiring 3-4L O2 at baseline. No h/o HF. RLL opacity noted on admission. No PE on CTA. -Initially requiring mechanical ventilation, now resolved. -Continue Anoro Ellipta, Albuterol, Fluticasone -Continue prednisone and azithromycin until 03/15 -Maintain SpO2 > 88% -Pulmonary rehab as outpatient RLL Opacity -Noted on chest imaging on admission, initially concerning for infectious etiology -No significant leukocytosis. Procal negative. BioFire negative. -Unlikely PNA. Not on ABX. Saccular Aneurysm of ICA (alongside dissection) - Incidental finding on CTA; admission provider spoke with [facility], no acute recommendations - Holding DVT PPX at this time - Will require outpatient neurosurgical follow-up SMA & Celiac artery aneurysm: -CTA chest showed unchanged aneurysm from 2019. Maintain normotension. Cont inue to monitor vitals for instability. -Outpatient neurosurgical and vascular medicine follow-up Essential hypertension: -Resume metoprolol and furosemide Peripheral neuropathy: -Resume pregabalin, sumatriptan, venlafaxine History of Alcohol Abuse: -Blood alcohol level <3.0, told ED staff minimal drinking recently, monitor for withdrawal. History of SIADH: -Stable. Monitor BMP. Dispo: PCU -- PT, OT consulted, appreciate aid on dispositional needs/recommendations Code status: Full code Diet: Regular. PPX: SCDs, holding pharmacologic with dissection / aneurysms, as above (2) COPD, severe: (3) Essential hypertension: (4) Superior mesenteric artery aneurysm: (5) Peripheral neuropathy: (6) Aneurysm artery, celiac: (7) SIADH (syndrome of inappropriate ADH production): Admission and Anticipated Discharge Date Admission Date: March 08, 2021 Supervising Physician Co-Signing Physician Notes I personally examined the patient and verified all hurley points of history and exam, discussed case, and agree with decision making with Dr Mathews. Notes that his breathing feels good, notes that he is normally on probably 5 L of oxygen at home, also notes his concentrator goes up to 10. No acute complaints, wants to go home. Vitals noted, no distress. HEENT normocephalic atraumatic mucous membranes moist. Lungs are very quiet throughout but no adventitious findings, no accessory muscle use no rales rhonchi or wheezes. Neuro without focal deficits. Possible pneumonia and COPD exacerbation causing hypercapnic metabolic encephalopathy and acute hypoxic/hypercapnic respiratory failurecontinue current care. Improving, safe/stable for move to [facility]. PT/OT eval and treat, his stated goal is to go home, definitely want to see more ongoing stability, and his ability to work with therapy before working on a true dispo plan to homeparticularly how severely ill he was on admission. Pharmacologic prophylaxis held due to aneurysm/etc., initiallybut safe now on heparin subcu, as clearly this is not a bleeding issue. Subjective NAEO. Has been stable on 4L overnight - his home flow rate. Denies shortness of breath, but says he doesn't feel up to par just yet. Mild coughing. No chest pain / palpitations. Appetite strong. No n/v. Review of Systems Review of Systems: as per HPI Physical Exam Physical Exam: General: Well-appearing 70-year-old male lying back in his hospital bed, relaxed after finishing breakfast, upon my arrival. No acute distress. HEENT: Mucous membranes are moist. No JVD. Cardiac: Normal rate, regular rhythm. S1 and S2 are present without murmurs rubs or gallops. Pulmonary: Easy respiratory effort with symmetric expansion of the chest. No conversational dyspnea. CTAB. Abdominal: Abdomen is soft, nontender and nondistended. Skin: Appreciable ecchymoses noted over the left upper extremity and right upper extremity. Results & Data Results & Data ([facility]) Vital Signs (Past 12 Hours) Vital Signs Temp Pulse Pulse Resp BP Pulse Ox 03/11/21 03:32 36.9 C 91 H 22 170/87 H 99 03/11/21 02:19 102 H 03/11/21 02:07 36.5 C 115 H 26 H 146/99 H 96 03/11/21 01:30 88 14 99 03/11/21 01:00 100 H 20 99 03/11/21 00:30 88 23 03/11/21 00:02 36.5 C 112 H 20 146/99 H 95 03/11/21 00:00 96 H 18 03/10/21 23:30 108 H 22 03/10/21 23:00 96 H 30 H 03/10/21 22:30 113 H 16 86 L 03/10/21 22:00 101 H 20 100 03/10/21 21:30 119 H 18 98 03/10/21 21:00 111 H 17 03/10/21 20:30 102 H 30 H 100 03/10/21 20:00 126 H 24 90 03/10/21 19:30 110 H 23 99 03/10/21 19:01 82 L 03/10/21 18:42 77 L Resident Activity Tracking Resident Involvement: Resident Care Provided Care Provided: Adult Hospital Medicine (1) Peripheral neuropathy Peripheral neuropathy type: polyneuropathy, unspecified Qualified Code(s): G62.9 - Polyneuropathy, unspecified
--- NOTE | 2021-03-11 07:44 | Pulmonology Progress Note ---
Date of Service March 11, 2021 Assessment & Plan (1) Acute and chronic respiratory failure with hypercapnia: (2) Pulmonary emphysema: Plan: Impression: 70-year-old male with advanced COPD admitted with hypoxemic hypercarbic respiratory failure. He required intubation mechanical ventilation for 24 hours. He is doing well clinically. Recommendations: #1. COPD: Appears well controlled without any evidence of bronchospasm currently. He is currently maintained on prednisone 20 mg a day and a azithromycin 250 mg a day. Would complete this for 5 days then discontinue. Restart inhalers in the form of Anoro and Arnuity. Continue as needed DuoNebs. #2. Hypoxemic hypercarbic respiratory failure: Continue supplemental oxygen titrated to keep saturations at or above 88%. Avoid respiratory depressant medications. His baseline CO2 is only in the high 40s so do not think he requires noninvasive positive pressure ventilation or AVAPS currently he is not had frequent admissions for hypercarbic respiratory failure. #3. Deconditioning: PT OT recommended. Out of bed to chair as tolerated. Patient may benefit from pulmonary rehab in the outpatient setting if he is felt to be stable. #4. Management of the patient's other medical issues is deferred to the primary service. Of note the patient did have carotid artery aneurysm and small dissection and outpatient follow-up with neurosurgery was recommended. Patient can follow-up with me in the outpatient setting for his pulmonary issues. Feel free to contact me if I can be of additional assistance during the course of his hospitalization but his pulmonary issues appear to be fairly well controlled currently Admission and Anticipated Discharge Date Admission Date: March 08, 2021 Subjective Patient seen and examined. EMR reviewed. Discussed with bedside nurse. The patient states he is breathing fine. He offers no complaints this morning. He would like to get up out of bed and start to mobilize. He is not coughing wheezing or expectorating phlegm. No chest pain. He overall states he feels well. Review of Systems Review of Systems: All systems reviewed & are unremarkable except as noted in Subjective Physical Exam Constitutional: WD/WN, vitals as above Neck: trachea midline, no thyromegaly Respiratory: normal respiratory effort; no respiratory distress, no labored breathing and not tachypneic Auscultation: no crackles and no wheezes Breath sounds are diminished bilaterally Cardiovascular: Heart Sounds: normal S1 and normal S2; no murmur Extremities: + edema Gastrointestinal (Abdomen): normal bowel sounds, soft, nontender, no hepatosplenomegaly Musculoskeletal: Extremities: extremities normal to inspection Skin: Multiple ecchymoses Neurologic: Nonfocal exam Lymphatic: no cervical lymphadenopathy Results & Data Results & Data ([facility]) Vital Signs (Past 12 Hours) Vital Signs Temp Pulse Pulse Resp BP Pulse Ox 03/11/21 03:32 36.9 C 91 H 22 170/87 H 99 03/11/21 02:19 102 H 03/11/21 02:07 36.5 C 115 H 26 H 146/99 H 96 03/11/21 01:30 88 14 99 03/11/21 01:00 100 H 20 99 03/11/21 00:30 88 23 03/11/21 00:02 36.5 C 112 H 20 146/99 H 95 03/11/21 00:00 96 H 18 03/10/21 23:30 108 H 22 03/10/21 23:00 96 H 30 H 03/10/21 22:30 113 H 16 86 L 03/10/21 22:00 101 H 20 100 03/10/21 21:30 119 H 18 98 03/10/21 21:00 111 H 17 03/10/21 20:30 102 H 30 H 100 03/10/21 20:00 126 H 24 90 Critical Care Results & Data Vital Signs (Past 12 Hours) Vital Signs Temp Pulse Pulse Resp BP Pulse Ox 03/11/21 03:32 36.9 C 91 H 22 170/87 H 99 03/11/21 02:19 102 H 03/11/21 02:07 36.5 C 115 H 26 H 146/99 H 96 03/11/21 01:30 88 14 99 03/11/21 01:00 100 H 20 99 03/11/21 00:30 88 23 03/11/21 00:02 36.5 C 112 H 20 146/99 H 95 03/11/21 00:00 96 H 18 03/10/21 23:30 108 H 22 03/10/21 23:00 96 H 30 H 03/10/21 22:30 113 H 16 86 L 03/10/21 22:00 101 H 20 100 03/10/21 21:30 119 H 18 98 03/10/21 21:00 111 H 17 03/10/21 20:30 102 H 30 H 100 12/09/21 20:00 126 H 24 90 Lab & Micro Results (Past 24 Hours) RBC 3.53 M/uL (4.7-6.1) L 03/11/21 WBC 8.46 K/uL (4.8-10.8) 03/11/21 Hgb 10.0 g/dL (14.0-18.0) L 03/11/21 Hct 33.0 % (42-52) L 03/11/21 MCV 93.5 fL (80-100) 03/11/21 MCH 28.3 pg (25-34) 03/11/21 MCHC 30.3 g/dL (32-36) L 03/11/21 RDW Standard Deviation 49.7 fL (36.4-46.3) H 03/11/21 RDW Coefficient of Variation 14.6 % (11.5-14.5) H 03/11/21 Plt Count 243 K/uL (130-400) 03/11/21 MPV 9.8 fL (7.4-10.4) 03/11/21 Neutrophils (%) (Auto) 71.3 % 03/11/21 Lymphocytes (%) (Auto) 15.7 % 03/11/21 Monocytes # (Auto) 1.02 K/uL (0.11-0.59) H 03/11/21 Eosinophils # (Auto) 0.06 K/uL (0-0.5) 03/11/21 Immature Granulocyte % (Auto) 0.1 % 03/11/21 Neutrophils # (Auto) 6.03 K/uL (1.4-6.5) 03/11/21 Lymphocytes # (Auto) 1.33 K/uL (1.2-3.4) 03/11/21 Monocytes # (Auto) 1.02 K/uL (0.11-0.59) H 03/11/21 Eosinophils # (Auto) 0.06 K/uL (0-0.5) 03/11/21 Basophils # (Auto) 0.01 K/uL (0-0.2) 03/11/21 Immature Granulocyte # (Auto) 0.01 K/uL (0.00-0.02) 03/11/21 Na 140 mmol/L (136-145) 03/11/21 K 3.4 mmol/L (3.5-5.1) L 03/11/21 Cl 101 mmol/L (98-107) 03/11/21 CO2 36 mmol/L (21-32) H 03/11/21 Anion Gap 3.0 (3-11) 03/11/21 BUN 20 mg/dl (7-18) H 03/11/21 Creatinine 0.87 mg/dl (0.6-1.4) 03/11/21 Estimated GFR ( Amer) 102.8 ml/min 03/11/21 Estimated GFR (Non-Af Amer) 88.7 ml/min 03/11/21 BUN/Creatinine Ratio 23.4 (10-20) H 03/11/21 Glu 80 mg/dl (70-99) 03/11/21 Ca 8.9 mg/dl (8.5-10.1) 03/11/21 Mg 2.2 mg/dl (1.8-2.4) 03/11/21 04:21 03/11/21 Calcium Level 8.9 mg/dl (8.5-10.1) 03/11/21 04:21 03/11/21 Microbiology 03/08/21 18:19 Aerobic Blood Culture - Preliminary Blood No growth in Aerobic bottle after 48 hours. Anaerobic Blood Culture - Preliminary No growth in Anaerobic bottle after 48 hours. 03/08/21 18:38 Aerobic Blood Culture - Preliminary Blood No growth in Aerobic bottle after 48 hours. Anaerobic Blood Culture - Preliminary Coag neg staph not lugdunensis Diagnostic Findings (Past 24 Hours) Chest X-Ray 03/10/21 07:00 XR chest 1V portable HISTORY: 70 years-old Male Resp failure acute respiratory failure COMPARISON: Chest radiograph 03/09/2021 TECHNIQUE: Portable AP view of the chest FINDINGS: Cardiomediastinal and hilar silhouettes are unchanged. Endotracheal tube overlies the midline, 8 mm superior to the digna. Enteric tube courses below t he diaphragm with distal tip outside the [id number]. No pneumothorax, large pleural effusion or overt pulmonary edema. Mild bilateral interstitial coarsening redemonstrated. Emphysema. Degenerative changes of the shoulders and spine. IMPRESSION: 1. The endotracheal tube terminates 8 mm superior to the digna. Mild retraction recommended with follow-up imaging. 2. Emphysema with chronic interstitial coarsening. ACT 112: Negative or not required by law. The above report was generated using voice recognition software. It may contain grammatical, syntax or spelling errors. Electronically signed by: Jayme Portillo M.D. 03/10/2021 7:35 AM I & O Totals 24 Hours 03/10/21 03/11/21 03/12/21 06:59 06:59 06:59 Intake Total 1287.004 / 1287.004 538 / 538 Output Total 900 / 900 1675 / 1675 Balance 387.004 / 387.004 -1137 / -1137 Cumulative 03/08/21 18:01 thru 03/11/21 05:33 Intake Total 3045.004 Output Total 4225 Balance -1179.996 RT Ventilator Mngmt (Last Documented) Ventilator Ordered Settings Ventilator Support Mode Assist Control 03/10/21 08:06 Respiratory Rate 22 03/11/21 03:32 Ventilator Tidal Volume 450 03/10/21 08:06 Setting Minute Ventilation 6.6 03/10/21 08:06 Positive End Expiratory 6 03/10/21 08:06 Pressure Fraction of Inspired Oxygen 4 03/10/21 20:04 Machine Comment found pt on 30%. 03/09/21 01:34 Ventilator - PT Measurements Respiratory Rate 22 Exhaled Tidal Volume 427 Minute Ventilation 6.6 Peak Inspiratory Airway 27 Pressure Plateau Pressure 17 Respiratory Cycle Inspiratory: 1:4 Expiratory Ratio Inspiratory Phase Time 0.80 End-Tidal CO2 45 Static Lung Compliance 38.82 Dynamic Lung Compliance 20.33 Normal Static Lung Compliance 46.00 Patient Measurements Comment FiO2 decreased to 35% per ABG results PG Care Time/CCT Total # of Minutes Spent Total Time Spent with Patient: Total time spent is greater than 50% in coordination of care (as documented) at patient's floor/unit and/or counseling patient: Coding Level of Care Code 58380 Subseq Hosp Care Lvl 2 Diagnoses Acute and chronic respiratory failure with hypercapnia J96.22 Pulmonary emphysema J43.9
[2021-03-11] MEDS ORDERED: [UNRECOGNIZED DRUG - MIXTURE] PO SCH (09:00)
[2021-03-11] MEDS ORDERED: VITAMIN B COMPLEX FOLIC ACID PO SCH (09:00)
[2021-03-11] MEDS: PREGABALIN 100 MG CAP PO SCH ×2 (10:07→20:44)
[2021-03-11] MEDS: ATORVASTATIN 40 MG TAB PO SCH (10:08)
[2021-03-11] MEDS: AZITHROMYCIN 250 MG TAB PO SCH (10:08)
[2021-03-11] MEDS: VENLAFAXINE HCL XR 150 MG CAPXR PO SCH (10:09)
[2021-03-11] MEDS: SODIUM CHLORIDE 1 GM TABLET PO SCH ×2 (10:09→20:43)
[2021-03-11] MEDS: VITAMIN B COMPLEX TAB PO SCH (10:09)
[2021-03-11] MEDS: FERROUS SULFATE 325 MG TAB PO SCH (10:09)
[2021-03-11] MEDS: FOLIC ACID 400 MCG TAB PO SCH ×2 (10:09→10:12)
[2021-03-11] MEDS: CYANOCOBALAMIN 500 MCG TABLET (VITAMIN B-12) PO SCH (10:10)
[2021-03-11] MEDS: HEPARIN SOD 5,000 UNIT/0.5 ML VIAL SQ SCH ×2 (10:11→20:44)
[2021-03-11] MEDS: UMECLIDINIUM/VILANTEROL 62.5/25MCG 7 PUFFS/INHALER INH SCH (10:12)
[2021-03-11] MEDS: MAGNESIUM OXIDE 400 MG TAB PO SCH (10:12)
[2021-03-11] MEDS: METOPROLOL SUCC 50MG EXT REL TAB PO SCH (10:12)
[2021-03-11] MEDS: FLUTICASONE FUROATE 100MCG 14 PUFFS/INHALER INH SCH (10:14)
[2021-03-11] MEDS: predniSONE 20 MG TAB PO SCH (11:47)
--- NOTE | 2021-03-11 16:32 | Billing Data ---
Date of Service March 11, 2021 Coding Level of Care Code 91026 Subseq Hosp Care Lvl 3
[2021-03-12 06:05] LABS: Basophils # (auto) 0.03 K/uL (0-0.2); Basophils % (auto) 0.5 %; Eosinophils # (auto) 0.58 K/uL (0-0.5); Eosinophils % (auto) 8.8 %; Hematocrit (blood only) 35.1 % (42-52); Hemoglobin 10.8 g/dL (14.0-18.0); Immature Granulocytes # (auto) 0.01 K/uL (0.00-0.02); Immature Granulocytes % (auto) 0.2 %; Lymphocytes # (auto) 1.73 K/uL (1.2-3.4); Lymphocytes % (auto) 26.3 %; Mean Corpuscular Hemoglobin 28.7 pg (25-34); Mean Corpuscular Hgb Conc 30.8 g/dL (32-36); Mean Corpuscular Volume 93.4 fL (80-100); Mean Platelet Volume 9.5 fL (7.4-10.4); Monocytes % (auto) 15.2 %; Neutrophils # (auto) 3.23 K/uL (1.4-6.5); Platelet Count 216 K/uL (130-400); RDW Coefficient of Variation 14.4 % (11.5-14.5); RDW Standard Deviation 49.2 fL (36.4-46.3); Red Blood Count 3.76 M/uL (4.7-6.1); White Blood Count 6.58 K/uL (4.8-10.8)
[2021-03-12 06:36] LABS: BUN Creatinine Ratio 22.8 (10-20); Calcium 8.5 mg/dl (8.5-10.1); Creatinine Clr Calc Pharmacy 123.2 ml/min; Est GFR (African American) 117.4 ml/min; Est GFR (Non-African American) 101.3 ml/min; Potassium 3.4 mmol/L (3.5-5.1)
[2021-03-12] MEDS: HEPARIN SOD 5,000 UNIT/0.5 ML VIAL SQ SCH (08:35)
[2021-03-12] MEDS: ASCORBIC ACID 500 MG TAB PO SCH (08:36)
[2021-03-12] MEDS: VENLAFAXINE HCL XR 150 MG CAPXR PO SCH (08:37)
[2021-03-12] MEDS: PREGABALIN 100 MG CAP PO SCH (08:38)
[2021-03-12] MEDS: MAGNESIUM OXIDE 400 MG TAB PO SCH (08:38)
[2021-03-12] MEDS: ATORVASTATIN 40 MG TAB PO SCH (08:38)
[2021-03-12] MEDS: METOPROLOL SUCC 50MG EXT REL TAB PO SCH (08:38)
[2021-03-12] MEDS: FOLIC ACID 400 MCG TAB PO SCH ×2 (08:39→08:43)
[2021-03-12] MEDS: FERROUS SULFATE 325 MG TAB PO SCH (08:39)
[2021-03-12] MEDS: VITAMIN B COMPLEX TAB PO SCH (08:40)
[2021-03-12] MEDS: AZITHROMYCIN 250 MG TAB PO SCH (08:40)
[2021-03-12] MEDS: CYANOCOBALAMIN 500 MCG TABLET (VITAMIN B-12) PO SCH (08:40)
[2021-03-12] MEDS: SODIUM CHLORIDE 1 GM TABLET PO SCH (08:40)
[2021-03-12] MEDS: predniSONE 20 MG TAB PO SCH (08:41)
[2021-03-12] MEDS: FUROSEMIDE 20 MG TAB PO SCH (08:41)
[2021-03-12] MEDS: FLUTICASONE FUROATE 100MCG 14 PUFFS/INHALER INH SCH (08:42)
[2021-03-12] MEDS: UMECLIDINIUM/VILANTEROL 62.5/25MCG 7 PUFFS/INHALER INH SCH (08:42)
[2021-03-12] MEDS: ALBUT/IPRATROP 3MG/0.5MG NEB 3 ML VIAL INH PRN (10:20)
[2021-03-12] MEDS ORDERED: POTASSIUM CHLORIDE 10 MEQ TABCR PO STA (10:38)
[2021-03-12] MEDS ORDERED: ASPIRIN 81 MG ECTAB PO SCH (13:30)
--- NOTE | 2021-03-12 13:30 | Discharge Summary ---
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 The patient has an extensive history of smoking for which he quit a year and half ago. He last saw Dr. Dmoinguez in outpatient clinic in December where he described his breathing as poor at that point in time. He is on home home duoneb, Incruse Ellipta, albuterol, and fluticasone as well as 3-4 liters of O2 at baseline. As per patient's , he was short of breath at home and appeared obtunded and so EMS was called. Patient has also been having swelling in the lower extremities recently. denied any fevers, coughing, nausea, vomiting. When he came into the ED he was intubated and placed on ventilation and O2 saturation was kept above 94%. The patient was also given Dexamethasone 10mg in the ED and placed on Zosyn for possible infection from RLL infiltrate seen on CT scan. History could not be obtained from patient as he was sedated on propofol and I was unable to reach his via phone. Principal Diagnosis Acute on chronic hypoxic respiratory failure, COPD Exacerbation Discharge Exam Constitutional WD/WN, vitals as above Eyes PERRL, conjunctivae normal, anicteric sclerae Respiratory able to speak in complete sentences; no respiratory distress and no labored breathing Auscultation: no crackles, no rales, no rhonchi and no wheezes Cardiovascular Rate/Rhythm: regular rate and regular rhythm Heart Sounds: no gallop, no murmur and no cardiac rub Vessels: normal peripheral pulses Extremities: no edema Gastrointestinal (Abdomen) Inspection/Auscultation: normal bowel sounds and + visible herniation (inguinal); abdomen not distended Percussion/Palpation: abdomen soft; abdomen nontender and no guarding Skin multiple ecchymoses over b/l upper extremities Neurologic PERRL, EOMI, accommodation nl, no face palsy, no dysarthria CN's II-XI intact bilaterally and moves all extremities Psychiatric Orientation: alert and oriented x 3 Discharge Data Allergies Allergy/AdvReac Type Severity Reaction Status Date / Time No Known Allergies Allergy Verified 03/08/21 19:02 Consultations 03/08/21 20:49 ED Decision to Admit Stat 03/09/21 04:20 Consult Model And Dye Person Routine Ordered Studies 03/08/21 18:27 CT angio chest PE protocol Stat CT head/brain wo con Stat 03/08/21 18:54 CT angio head w con Stat CT angio neck with con Stat Hospital Course (1) Acute and chronic respiratory failure with hypercapnia: Lauro Barnes is a 70y/o M w/ PMH significant for severe COPD on 3-4L at home, HTN, Alcohol abuse, peripheral neuropathy, SIADH, prostatitis admitted to ICU for acute exacerbation of severe COPD and VDRF, now successfully extubated and back to his home O2 requirement. Acute on Chronic hypoxic respiratory failure with hypercapnia: - likely secondary to COPD Exacerbation in the setting of significant COPD history - significant COPD history, requiring 3-4L O2 at baseline. No h/o HF. RLL opacity noted on admission. No PE on CTA. - Initially requiring mechanical ventilation, now resolved. - Continue Anoro Ellipta, Albuterol, Fluticasone - Continue prednisone 20mg daily and azithromycin 250mg daily until 03/14 - recommended Pulmonary rehab as outpatient Deconditioning: - initial concern for deconditioning following intubation - PT/OT evaluations recommended home health services or acute rehabilitation - discussed with patient and family, they have set-up his space at home in order to optimize safety and decline interest at this time in Home health services or acute Rehab - patients strength and conditioning may improve along with Pulmonary rehab RLL Opacity - Noted on chest imaging on admission, initially concerning for infectious etiology - No significant leukocytosis. Procal negative. BioFire negative. - Unlikely PNA Saccular Aneurysm of ICA and Apparent linear filling defect within the proximal intracranial portion of the right vertebral artery. This could reflect a short segment dissection or fenestration. - Incidental finding on CTA; admission provider spoke with [facility] [place]: no acute recommendations/interventions - Will require outpatient neurosurgical follow-up -Start aspirin 81 mg p.o. once daily for dissection to prevent stroke SMA & Celiac artery aneurysm: - CTA chest showed unchanged aneurysm from 2019. - seen by [facility] V[place] surgery in 2019, with no acute interventions recommend at that time, was to have one year follow-up in 2020 but did not attend - recommend outpatient vascular surgery follow-up Essential hypertension: - continue metoprolol 50mg daily and furosemide 20mg daily Peripheral neuropathy: - Resume pregabalin, sumatriptan, venlafaxine (2) COPD, severe: (3) Essential hypertension: (4) Superior mesenteric artery aneurysm: (5) Peripheral neuropathy: (6) Aneurysm artery, celiac: (7) SIADH (syndrome of inappropriate ADH production): Total Time Total Time Spent Total Time Spent (In Minutes): 30 Discharge Plan Discharge Items Patient Disposition: Home - Self-Care Reason For Visit: SOB NEEDING MECHANICAL VENTILATION Discharge Diagnosis: acute hypoxic respiratory failure Activity: Per Instructions section Non-emergency contact: Primary Care Provider and Stock Shaper Call non-emergency contact if: you have any medication questions, your symptoms worsen and you have a fever Follow-up/Referrals: Russell Dang DO [Primary Care Provider] - Rich Dominguez MD [Physician] - (Follow-up for establishment with Pulm Rehab) Diet: Heart Healthy Addtl Attending Provider Instructions: You were seen at [facility] for evaluation of confusion and shortness of breath. You underwent several tests to determine the cause of your symptoms. It is thought that they likely represented a severe COPD exacerbation. Unfortunately, because your breathing status was critical, you did require mechanical ventilation (breathing machine) in the ICU. You demonstrated excellent response to this and were transitioned back to your home oxygen after a short amount of time. Upon discharge, please note the following medication changes/additions/deletions: -- START azithromycin, 250mg once daily, until 03/14 at end of day -- START prednisone, 20mg once daily, until 03/14 at end of day -- Continue using your SCHEDULED inhalers as directed. Please follow-up with your primary care provider within 1 week to review this visit. In the interim, if you experience worsening shortness of breath, coughing, dizziness, lightheadedness, chest pain, palpitations, fevers, chills, or other worrisome symptoms, please report to the ER immediately for evaluation. It has been a pleasure for caring for you while you were here, and we wish you all the best in your recovery. Pending Studies at Discharge: No Stand-Alone Forms: [employer], Smoking Cessation Medications and DC Order Prescriptions: New azithromycin 250 mg Tablet 250 mg PO ONE Qty: 1 RF: 0 aspirin 81 mg Tablet,Delayed Release (Dr/Ec) 81 mg PO QAM 30 Days Qty: 30 RF: 0 azithromycin 250 mg Tablet 250 mg PO QAM Qty: 1 RF: 0 Continued sumatriptan succinate 50 mg tablet 50 mg PO Q2H MDD 4 tablets/24hrs PRN (Reason: migraine headache) Qty: 9 RF: 5 albuterol sulfate 90 mcg/actuation HFA aerosol inhaler 1 - 2 puff INHALATION Q4H PRN (Reason: Shortness Of Breath) Qty: 54 RF: 1 metoprolol succinate 50 mg tablet extended release 24 hr 50 mg PO DAILY Qty: 30 RF: 5 sodium chloride 1 gram tablet 1 g PO BID Qty: 180 RF: 3 atorvastatin 40 mg tablet 40 mg PO DAILY Qty: 90 RF: 5 furosemide [Lasix] 20 mg tablet 20 mg PO Q OTHER DAY Qty: 15 RF: 5 venlafaxine 150 mg capsule,extended release 24hr 150 mg PO QAM 90 Days Qty: 90 RF: 1 pregabalin 100 mg capsule 100 mg PO BID Qty: 60 RF: 0 folic acid 400 mcg tablet 0.4 mg PO QAM RF: 0 vitamin B complex-folic acid 2,000 mcg capsule 1 cap PO DAILY RF: 0 magnesium oxide 400 mg (241.3 mg magnesium) tablet 400 mg PO DAILY Qty: 30 RF: 3 (DME) nebulizer accessories Kit See Rx Instructions .ROUTE .MEDSUPPLY Qty: 1 RF: 0 ipratropium-albuterol 0.5 mg-3 mg(2.5 mg base)/3 mL solution for nebulization 3 ml INH Q4H PRN (Reason: shortness of breath or wheezing) Qty: 540 RF: 5 Incruse Ellipta 62.5 mcg/actuation blister with device 1 inh inhalation DAILY Qty: 30 RF: 3 fluticasone propion-salmeterol [Advair Diskus] 500-50 mcg/dose blister with device 1 inh inhalation BID Qty: 60 RF: 0 BiPap Machine Misc See Rx Instructions .ROUTE .COMPLEX Qty: 1 RF: 0 Mariola-Sequels (iron-vit c) 200 mg (65 mg iron)-25 mg tablet extended release 1 tab PO DAILY Qty: 30 RF: 1 Probiotic Colon Support 1.5 billion cell Capsule 1 cap PO QAM RF: 0 cyanocobalamin (vitamin B-12) [Vitamin B-12] 1,000 mcg Tablet 1,000 mcg PO DAILY RF: 0 Discharge Orders: Discharge Order (Routine); Ordered 03/12/21 Ordered By: Francisco Cardozo/Other Patient Handouts: Understanding Oxygen Toxicity Admission Data Admit Date/Time: 03/08/21 22:20 Attending Provider: Patience Cordova Admit Provider: Vazquez Robledo Primary Care Provider: Russell Dang Other Providers: Josh Kim ; Rich Dominguez Other Interventions: Discharge Summary Assessment (RN) Last Done: 03/12/21 16:04 Supervising Physician Co-Signing Physician Notes I personally examined the patient and verified all hurley points of history and exam, discussed case, and agree with decision making with Dr. Cho with the following additions/exceptions: Patient feeling much improved. Denies shortness of breath, is back to home O2 requirement. Denies cough, feels stronger if to get around at home-he does not have to walk very far. He is eating and drinking. Vitals reviewed Gen: AAOx3, NAD HEENT: Anicteric sclerae, EOMI CV: RRR no mgr nl S1S2 Pulm: [Prolonged expiratory phase with faint wheezes, otherwise clear Abd: +BS soft NT ND no masses, very large left inguinal hernia, nontender Ext: No edema Skin: No rashes, warm/dry Neuro: Full strength throughout 70-year-old male here with COPD exacerbation and ventilator dependent respiratory failure with acute on chronic respiratory failure with hypoxia and hypercapnia Now resolved and doing very well Discharged home on 2 more days of prednisone burst and 1 more day of azithromycin Follow-up with pulmonary as an outpatient. Needs follow-up with interventional neurovascular specialist for carotid aneurysm Resident Activity Tracking Resident Involvement: Resident Care Provided Care Provided: Adult Hospital Medicine
[2021-03-12] MEDS ORDERED: AZITHROMYCIN 250 MG TAB PO SCH (14:01)
[2021-03-12] MEDS ORDERED: predniSONE 20 MG TAB PO SCH (14:15)
--- NOTE | 2021-03-12 18:52 | Billing Data ---
Date of Service March 12, 2021 Coding Level of Care Code D/C DAY MANAGEMENT >30 MINS
[2021-03-13] MEDS ORDERED: AZITHROMYCIN 250 MG TAB PO ONE (09:00)
[2021-03-13] MEDS ORDERED: predniSONE 20 MG TAB PO ONE (09:00)
== END 2021-03-12 17:12 | disposition home or self-care (01) | DRG 208 ==
LOC: ED 18:07 → SUATTDRO 22:20 → 1E 03-09 → SUATTDRO 03-09 → 1E 03-09 03:00 → 3E 03-11 16:32
DX: J43.9 Emphysema, unspecified; N40.1 Benign prostatic hyperplasia with lower urinary tract symptoms; E78.5 Hyperlipidemia, unspecified; I72.8 Aneurysm of other specified arteries; G93.41 Metabolic encephalopathy; N13.8 Other obstructive and reflux uropathy; J96.22 Acute and chronic respiratory failure with hypercapnia; Z87.891 Personal history of nicotine dependence; Z79.899 Other long term (current) drug therapy; G62.9 Polyneuropathy, unspecified; Z82.49 Family history of ischemic heart disease and other diseases of the circulatory system; I10 Essential (primary) hypertension; E22.2 Syndrome of inappropriate secretion of antidiuretic hormone; J96.21 Acute and chronic respiratory failure with hypoxia; Z99.81 Dependence on supplemental oxygen; R93.89 Abnormal findings on diagnostic imaging of other specified body structures

== ENCOUNTER 2021-04-29 16:24 | Inpatient (IN) ==
[2021-04-29] MEDS ORDERED: fentaNYL citrate 100 MCG/2 ML VIAL IV PRN (16:34)
[2021-04-29] MEDS ORDERED: ONDANSETRON INJ 2 MG/ML 2 ML VIAL IV STA (16:34)
--- NOTE | 2021-04-29 17:10 | XRay Report ---
XR chest 1V portable CLINICAL HISTORY: fall TECHNIQUE: Single frontal radiograph of the chest was obtained. Comparison: Comparison is made to chest one view 03/10/2021 FINDINGS: No lines and tubes are seen. The aorta is tortuous. The remainder of the cardiomediastinal silhouette is unremarkable. The lungs are clear. No evidence of pleural effusion or pneumothorax. IMPRESSION: No acute chest disease. ACT 112: Negative or not required by law. Electronically signed by: Sha Macias M.D. 04/29/2021 5:08 PM
--- NOTE | 2021-04-29 17:18 | XRay Report ---
XR tibia fibula RT 2V CLINICAL HISTORY: fall Comparison: None available at the time of this dictation. TECHNIQUE: 2 radiographic views of the right leg were obtained. FINDINGS: There is a angulated fracture of the right distal fibula at or above the tibiofibular syndesmosis. Th ere is anterior dislocation of the tibia over the talus. A posterior malleolus fracture is seen. The medial malleolus is also fractured. Soft tissue swelling is seen about the ankle. IMPRESSION: Trimalleolar fracture and anterior dislocation of the the tibia over the talus. Surrounding soft tiss ue swelling. ACT 112: Negative or not required by law. Electronically signed by: Sha Macias M.D. 04/29/2021 5:17 PM
--- NOTE | 2021-04-29 17:26 | Emergency Department Note ---
Impression & Plan Closed displaced trimalleolar fracture of right ankle ED Provider Note NAME: DENAE LAL AGE: 70 SEX: M : 1950 ARRIVES VIA: Ambulance INFORMANT: Patient, EMS personnel ED PROVIDER(S): Salas Allen DO CHIEF COMPLAINT: Leg pain HPI: The patient is a 70-year-old male who presented to the emergency department for leg pain. The patient has a long history of COPD. He also has a history of alcohol abuse. He has a chair which allows him to try to stand more easily. The patient went to stand up and fell onto his right leg. He had to call 911. He had severe pain. He did not strike his head. There was no reported loss of consciousness. The patient denies having any nausea or vomiting at this time. He denies having any chest pain. He was given fentanyl prior to arrival. The patient describes his pain is severe. It worsens with any attempted ambulation or stand. The patient has never injured this leg before. ROS: See above HPI for pertinent positives & negatives. A total of 10 systems reviewed and were otherwise negative. PAST MEDICAL HISTORY: See Below PAST SURGICAL HISTORY: See Below FAMILY HISTORY: See Below SOCIAL HISTORY: See Below HOME MEDICATIONS: See Below ALLERGIES: See Below VITALS: See Below PHYSICAL EXAMINATION: GENERAL: The patient is awake and alert. The patient is very anxious appearing appears to be in pain. EYES: The conjunctivae are clear. The pupils are round and reactive. EARS, NOSE, MOUTH AND THROAT: The nose is without any evidence of any deformity. NECK: The neck is nontender and supple. RESPIRATORY: Normal respiratory effort is noted there is no evidence of wheezing rhonchi or rales CARDIOVASCULAR: Regular rate and rhythm noted there no murmurs rubs or gallops normal S1 normal S2. GASTROINTESTINAL: The abdomen is soft. Abdomen is nontender. MUSCULOSKELETAL/EXTREMITIES: There is significant tenderness and crepitus over the right leg. There is significant ecchymosis over this area. SKIN: Skin is warm and dry. Pedal edema was noted bilaterally right greater than left. NEUROLOGIC: Patient is awake alert and oriented x3 MEDICAL DECISION MAKING: The patient is a 70-year-old male who presented to emergency department after falling. The patient fell onto his right leg. He suffered a right trimalleolar ankle fracture. Attempts were made to reduce this fracture in the emergency department. A splint was applied. The patient did not have a adequate reduction of the fracture. I discussed this case with the on-call orthopedic physician. The patient is not a very good candidate for sedation in the emergency department. He may require either a hematoma block or possibly red uction in the OR. This would normally be a surgical fracture however given the patient's comorbidities he may not be a good surgical candidate. For this reason I discussed this case also with the on-call [facility] hospitalist group. They will evaluate the patient in the emergency department for further management and disposition. Triage Nursing notes reviewed. Prior medical records reviewed Vital Signs: reviewed and remarkable for tachycardia. Differential diagnosis: Fracture, subluxation, dislocation, contusion, ligamentous injury, neurovascular, compartment syndrome, rhabdomyolysis, as well as other pathologies. ER treatment provided: See below Diagnostics interpreted by me: ECG: none Cardiac Monitoring: An order was placed for continuous cardiac monitoring. The monitor shows a rate of 135 bpm with sinus tachycardia. Laboratory studies: As stated above and show below. Imaging studies: See below Consultation(s): I discussed this case with Dr. Paz who is on-call for the [facility] group. I discussed this case with Dr. Paulino who is on-call for orthopedics. ED COURSE: Procedures: A splint was applied to the right lower extremity. With the assistance of the C pod tech a posterior as well as a sugar tong splint were applied to the right lower extremity. While the patient was given pain medication slight traction was applied to the right lower extremity with the knee in flexion. I tried to raise the heel towards the ceiling. At times good reduction was felt to be ac hieved however the patient's leg would go into spasm. Repeat x-ray did not reveal adequate reduction of the ankle fracture dislocation. Past Med/Surg History Medical History Acute hyponatremia Alcohol abuse Alcohol withdrawal Bacteremia Cellulitis Colitis COPD (chronic obstructive pulmonary disease) COPD exacerbation Delirium tremens DVT prophylaxis Face lacerations Gout Hyperlipidemia Hypertension Hypokalemia Hypomagnesemia Hyponatremia Hypoxemia Incarcerated left inguinal hernia Infection of spine DX 5 YEARS AGO (TREATED AT VENICE) Klebsiella pneumoniae infection Low back pain Metabolic encephalopathy Migraine Neuropathy On home oxygen therapy 3L CONT. Orthostasis Osteoarthritis Respiratory failure Right hand fracture Right inguinal hernia Seizure Seizure LAST EPISODE LAST MONTH (HOSPITALIZED AT [facility]) ? ETIOLOGY FOLLOWED BY DR. HIGHTOWER Sepsis associated hypotension Tachycardia Tremor BILAT HANDS AND A LITTLE IN BILAT. FEET UTI (urinary tract infection) Surgical History H/O tooth extraction Lower teeth on 04/23/2018 H/O tooth extraction History of colonoscopy History of open reduction and internal fixation (ORIF) procedure FEMUR ?SIDE S/P foot surgery RT/LEFT (HARDWARE INTACT) Family History Father Hypertension Aneurysm Mother Swelling Uncle Myocardial infarction Other No significant family history Denies family history of Ovarian cancer Prostate cancer Breast cancer Colorectal cancer Social History Smoking Status: Former smoker Tobacco Type: Cigarettes Age Started Using Tobacco: 14; Age Quit Using Tobacco: 68; packs per day: 1; Cigarettes Per Day: 10; Second Hand Exposure: No; Hx Alcohol Use: No (unknown) Hx Substance Use: No Preferred Language: Filipino Communication Ability: Effective Visual Impairment: Limited Hearing Ability: Normal Mesh Worker Required: No Beliefs That Will Affect Care: None marital status: Current Living Situation: Spouse Current Living Situation Comment: unknown intubated and sedated current occupational status: retired Feels Safe at Home: Yes Childhood Exposure to Second-Hand Smoke: Yes Dental Care, Regularly: No Physical Activity Frequency: Does not Exercise Seatbelt Use: always Sunscreen Use: No Assistive Devices: BiPap, Oxygen - Continuous and Walker Allergies Allergies Allergy/AdvReac Type Severity Reaction Status Date / Time No Known Allergies Allergy Verified 03/18/21 14:26 Home Meds Home Medications Medication Instructions Recorded Confirmed folic acid 400 mcg tablet 0.4 mg PO QAM 12/13/18 04/29/21 vitamin B complex-folic acid 2,000 1 cap PO DAILY 12/13/18 04/29/21 mcg capsule Lactobacills gasseri-Bifidobac 1 cap PO QAM 02/25/19 04/29/21 bifidum,longum 1.5 billion cell capsule (Probiotic Colon Support) cyanocobalamin (vitamin B-12) 1,000 mcg PO DAILY 03/08/21 04/29/21 1,000 mcg tablet (Vitamin B-12) Previous Rx's Medication Instructions Recorded ferrous fumarate 200 mg (65 mg 1 tab PO DAILY #30 tab 01/21/19 iron)-vit C 25 mg tablet,extend release (Mariola-Sequels (iron-vit c)) magnesium oxide 400 mg (241.3 mg 400 mg PO DAILY #30 tab 03/04/19 magnesium) tablet sumatriptan succinate 50 mg tablet 50 mg PO Q2H PRN #9 tab MDD 4 05/29/19 tablets/24hrs albuterol sulfate 90 mcg/actuation 1 - 2 puff INHALATION Q4H PRN #54 04/13/20 aerosol inhaler gm sodium chloride 1 gram tablet 1 g PO BID #180 tab 09/06/20 atorvastatin 40 mg tablet 40 mg PO DAILY #90 tab 09/17/20 ipratropium 0.5 mg-albuterol 3 mg 3 ml INH Q4H PRN #540 ml 12/22/20 (2.5 mg base)/3 mL nebulization soln nebulizer accessories #1 ea 12/22/20 BiPap Machine See Rx Instructions .ROUTE 01/04/21 .COMPLEX #1 ea fluticasone 500 mcg-salmeterol 50 1 inh INHALATION BID #60 ea 01/04/21 mcg/dose blistr powdr for inhalation (Advair Diskus) umeclidinium 62.5 mcg/actuation 1 inh INHALATION DAILY #30 ea 01/04/21 blister powder for inhalation (Incruse Ellipta) venlafaxine 150 mg 150 mg PO QAM 90 Days #90 cap 01/07/21 capsule,extended release 24 hr fluticasone furoate 100 1 inh INHALATION DAILY #30 ea 03/18/21 mcg/actuation blister powder for inhalation (Arnuity Ellipta) varicella-zoster glycoE [id number] 0.5 ml IM .COMPLEX #1 ea 03/18/21 adj(PF) 50 mcg/0.5 mL IM susp, kit (Shingrix (PF)) metoprolol succinate 50 mg See Rx Instructions .ROUTE 03/22/21 tablet,extended release 24 hr .COMPLEX #30 tab pregabalin 100 mg capsule 100 mg PO BID #60 cap 04/08/21 furosemide 20 mg tablet (Lasix) 20 mg PO Q OTHER DAY #15 tab 04/26/21 Results & Data (ED) Vital Signs Vital Signs - 24 hr 04/29/21 16:30 04/29/21 16:43 04/29/21 18:00 Temperature 37.1 C Temperature Source Oral Pulse Rate 135 H Pulse Rate [Apical] 135 H Pulse Rhythm Regular Pulse Strength Normal Respiratory Rate 22 14 24 Respiratory Effort / Characteristics Non-Labored Spontaneous Non-Labored Non-Labored Spontaneous Respiratory Depth Normal Normal Normal Respiratory Pattern Regular Blood Pressure 142/81 H Blood Pressure [Right Arm] 142/81 H 136/85 Blood Pressure Mean 101 Blood Pressure Mean [Right Arm] 101 102 Blood Pressure Position Lying Pulse Oximetry 99 93 99 Oxygen Delivery Method Nasal Cannula Room Air Oxygen Flow Rate 4 Sepsis Recent Fever Within 48 Hours No Sepsis New/Unexplained Change in Mental Status No Sepsis Action Taken by Nursing No Action Required Home Medications Current Medication List: was personally reviewed by me Laboratory Data Attestation: I reviewed the patient's lab results. Result diagrams: 04/29/21 17:33 04/29/21 17:33 Lab Results 04/29/21 04/29/21 Range/Units 17:33 17:33 WBC 11.01 H (4.8-10.8) K/uL RBC 3.80 L (4.7-6.1) M/uL Hgb 10.8 L (14.0-18.0) g/dL Hct 36.5 L (42-52) % MCV 96.1 (80-100) fL MCH 28.4 (25-34) pg MCHC 29.6 L (32-36) g/dL RDW Std Deviation 51.2 H (36.4-46.3) fL RDW Coeff of Jem 14.5 (11.5-14.5) % Plt Count 252 (130-400) K/uL MPV 9.9 (7.4-10.4) fL Immature Gran % (Auto) 0.1 % Neut % (Auto) 79.1 % Lymph % (Auto) 5.4 % [place] % (Auto) 5.7 % Eos % (Auto) 9.3 % Baso % (Auto) 0.4 % Neut # (Auto) 8.71 H (1.4-6.5) K/uL Lymph # (Auto) 0.60 L (1.2-3.4) K/uL [place] # (Auto) 0.63 H (0.11-0.59) K/uL Eos # (Auto) 1.02 H (0-0.5) K/uL Baso # (Auto) 0.04 (0-0.2) K/uL Immature Gran # (Auto) 0.01 (0.00-0.02) K/uL Sodium 141 (136-145) mmol/L Potassium 4.1 (3.5-5.1) mmol/L Chloride 100 (98-107) mmol/L Carbon Dioxide 38 H (21-32) mmol/L Anion Gap 3 (3-11) BUN 14 (6-23) mg/dl Creatinine 0.74 (0.6-1.4) mg/dl Est Cr Clr Drug Dosing 106.2 ml/min Est GFR ( Amer) 109.8 ml/min Est GFR (Non-Af Amer) 94.8 ml/min BUN/Creatinine Ratio 18.9 (10-20) Glucose 101 H (70-99(Fasting)) mg/dl Calcium 9.3 (8.5-10.1) mg/dl Total Bilirubin 0.4 (0.2-1.0) mg/dl AST 18 (13-39) U/L ALT 15 (7-52) U/L Alkaline Phosphatase 88 (34-104) U/L Total Protein 6.8 (6.0-8.3) gm/dl Albumin 3.8 (3.4-5.0) gm/dl Globulin 3.0 (2.5-4.0) gm/dl Albumin/Globulin Ratio 1.3 (0.9-2) Lipase 24 (11-82) U/L Administered Medications Fentanyl Citrate (Fentanyl Citrate 100 Mcg/2 Ml Vial) 50 mcg IV Q15M PRN PRN Reason: Pain Stop: 05/13/21 16:33 Last Admin: 04/29/21 17:35 Dose: 50 mcg Documented by: [id number] Discontinued Medications Ondansetron HCl (Ondansetron Inj 2 Mg/Ml 2 Ml Vial) 4 mg IV NOW STA Stop: 04/29/21 16:35 Last Admin: 04/29/21 17:36 Dose: Not Given Documented by: [id number] Imaging Data Radiologist's Impression: Chest X-Ray 04/29/21 16:34 XR chest 1V portable CLINICAL HISTORY: fall TECHNIQUE: Single frontal radiograph of the chest was obtained. Comparison: Comparison is made to chest one view 03/10/2021 FINDINGS: No lines and tubes are seen. The aorta is tortuous. The remainder of the cardiomediastinal silhouette is unremarkable. The lungs are clear. No evidence of pleural effusion or pneumothorax. IMPRESSION: No acute chest disease. ACT 112: Negative or not required by law. Electronically signed by: Sha Macias M.D. 04/29/2021 5:08 PM Tibia/Fibula X-Ray 04/29/21 16:34 XR tibia fibula RT 2V CLINICAL HISTORY: fall Comparison: None available at the time of this dictation. TECHNIQUE: 2 radiographic views of the right leg were obtained. FINDINGS: There is a angulated fracture of the right distal fibula at or above the tibiofibular syndesmosis. There is anterior dislocation of the tibia over the talus. A posterior malleolus fracture is seen. The medial malleolus is also fractured. Soft tissue swelling is seen about the ankle. IMPRESSION: Trimalleolar fracture and anterior dislocation of the the tibia over the talus. Surrounding soft tissue swelling. ACT 112: Negative or not required by law. Electronically signed by: Sha Macias M.D. 04/29/2021 5:17 PM Ankle X-Ray 04/29/21 17:47 XR ankle RT min 3V routine CLINICAL HISTORY: post reduction TECHNIQUE: 3 views of the right ankle were obtained. Comparison: Comparison is made to right tibia and fibula 04/29/2021 FINDINGS: Interval placement of a cast which limits fine bony detail. Redemonstration of trimalleolar fracture. Again noted is anterior displacement of the tibia over the talus. Soft tissue swelling is seen about the ankle. Degenerative changes are partially visualized in the bones of the foot. IMPRESSION: Redemonstration of trimalleolar fracture, dislocation of the ankle joint, and associated soft tissue swelling. ACT 112: Negative or not required by law. Electronically signed by: Sha Macias M.D. 04/29/2021 6:14 PM Discharge Plan Visit Data Chief Complaint: Fall Stated Complaint: Fall, Leg Pain, Swelling/Edema ED Provider: Salas Allen Discharge Problem: Closed displaced trimalleolar fracture of right ankle Patient Disposition: Being Evaluated by Hospitalist Forms Stand Alone Forms: My [facility] Prescriptions Prescriptions: No Action sumatriptan succinate 50 mg tablet 50 mg PO Q2H MDD 4 tablets/24hrs PRN (Reason: migraine headache) Qty: 9 RF: 5 albuterol sulfate 90 mcg/actuation HFA aerosol inhaler 1 - 2 puff INHALATION Q4H PRN (Reason: Shortness Of Breath) Qty: 54 RF: 1 sodium chloride 1 gram tablet 1 g PO BID Qty: 180 RF: 3 atorvastatin 40 mg tablet 40 mg PO DAILY Qty: 90 RF: 5 venlafaxine 150 mg capsule,extended release 24hr 150 mg PO QAM 90 Days Qty: 90 RF: 1 metoprolol succinate 50 mg tablet extended release 24 hr See Rx Instructions .ROUTE .COMPLEX Qty: 30 RF: 11 pregabalin 100 mg capsule 100 mg PO BID Qty: 60 RF: 0 furosemide [Lasix] 20 mg tablet 20 mg PO Q OTHER DAY Qty: 15 RF: 5 folic acid 400 mcg tablet 0.4 mg PO QAM RF: 0 vitamin B complex-folic acid 2,000 mcg capsule 1 cap PO DAILY RF: 0 magnesium oxide 400 mg (241.3 mg magnesium) tablet 400 mg PO DAILY Qty: 30 RF: 3 (DME) nebulizer accessories Kit See Rx Instructions .ROUTE .MEDSUPPLY Qty: 1 RF: 0 ipratropium-albuterol 0.5 mg-3 mg(2.5 mg base)/3 mL solution for nebulization 3 ml INH Q4H PRN (Reason: shortness of breath or wheezing) Qty: 540 RF: 5 Arnuity Ellipta 100 mcg/actuation blister with device 1 inh inhalation DAILY Qty: 30 RF: 3 Shingrix (PF) 50 mcg/0.5 mL suspension for reconstitution 0.5 ml IM .COMPLEX Qty: 1 RF: 1 Incruse Ellipta 62.5 mcg/actuation blister with device 1 inh inhalation DAILY Qty: 30 RF: 3 fluticasone propion-salmeterol [Advair Diskus] 500-50 mcg/dose blister with device 1 inh inhalation BID Qty: 60 RF: 0 BiPap Machine Misc See Rx Instructions .ROUTE .COMPLEX Qty: 1 RF: 0 Mariola-Sequels (iron-vit c) 200 mg (65 mg iron)-25 mg tablet extended release 1 tab PO DAILY Qty: 30 RF: 1 Probiotic Colon Support 1.5 billion cell Capsule 1 cap PO QAM RF: 0 cyanocobalamin (vitamin B-12) [Vitamin B-12] 1,000 mcg Tablet 1,000 mcg PO DAILY RF: 0 Referrals Referrals: Russell Dang, [Primary Care Provider] -
[2021-04-29 17:52] LABS: Basophils # (auto) 0.04 K/uL (0-0.2); Basophils % (auto) 0.4 %; Eosinophils # (auto) 1.02 K/uL (0-0.5); Eosinophils % (auto) 9.3 %; Hematocrit (blood only) 36.5 % (42-52); Hemoglobin 10.8 g/dL (14.0-18.0); Immature Granulocytes # (auto) 0.01 K/uL (0.00-0.02); Immature Granulocytes % (auto) 0.1 %; Lymphocytes % (auto) 5.4 %; Mean Corpuscular Hemoglobin 28.4 pg (25-34); Mean Corpuscular Hgb Conc 29.6 g/dL (32-36); Mean Corpuscular Volume 96.1 fL (80-100); Mean Platelet Volume 9.9 fL (7.4-10.4); Monocytes # (auto) 0.63 K/uL (0.11-0.59); Monocytes % (auto) 5.7 %; Neutrophils # (auto) 8.71 K/uL (1.4-6.5); Neutrophils % (auto) 79.1 %; Platelet Count 252 K/uL (130-400); RDW Coefficient of Variation 14.5 % (11.5-14.5); RDW Standard Deviation 51.2 fL (36.4-46.3); White Blood Count 11.01 K/uL (4.8-10.8)
[2021-04-29 18:10] LABS: Albumin Globulin Ratio 1.3 (0.9-2); Albumin Level 3.8 gm/dl (3.4-5.0); BUN Creatinine Ratio 18.9 (10-20); Bilirubin,Total 0.4 mg/dl (0.2-1.0); Calcium 9.3 mg/dl (8.5-10.1); Creatinine Clr Calc Pharmacy 106.2 ml/min; Est GFR (African American) 109.8 ml/min; Est GFR (Non-African American) 94.8 ml/min; Potassium 4.1 mmol/L (3.5-5.1); Total Protein 6.8 gm/dl (6.0-8.3)
--- NOTE | 2021-04-29 18:15 | XRay Report ---
XR ankle RT min 3V routine CLINICAL HISTORY: post reduction TECHNIQUE: 3 views of the right ankle were obtained. Comparison: Comparison is made to right tibia and fibula 04/29/2021 FINDINGS: Interval placement of a cast which limits fine bony detail. Redemonstration of trimalleolar fracture. Again noted is anterior displacement of the tibia over the talus. Soft tissue swelling is seen about the ankle. Degenerative changes are partially visualized in the bones of the foot. IMPRESSION: Redemonstration of trimalleolar fracture, dislocation of the ankle joint, and associated soft tissue swelling. ACT 112: Negative or not required by law. Electronically signed by: Sha Macias M.D. 04/29/2021 6:14 PM
[2021-04-29 19:27] LABS: Prothrombin Time 10.4 Seconds (9.0-12.0)
[2021-04-29] MEDS ORDERED: ACETAMINOPHEN 325 MG TAB PO STA (19:38)
[2021-04-29] MEDS ORDERED: MoRPHine SULFATE 4 MG/ML 1 ML CARP\\VIAL IV PRN (19:38)
--- NOTE | 2021-04-29 19:56 | History & Physical Report ---
Date of Service April 29, 2021 Assessment & Plan (1) Trimalleolar fracture: Plan: Acute closed trimalleolar fracture- occured when sliding out of his self lift chair - Failed reduction in the ER - Splinted and ice applied- continue ICE therapy overnight on for 1 hour off for 1 hour to assist with swelling reduction - Orthopaedics consulted - Pain control overnight- Tylenol 650mg PO, Morphine - consider anesthesia consultation for nerve block in morning if surgical repair delayed Perioperative risk for perioperative myocardial infarction or cardiac arrest is 1.23% (2) COPD, severe: Plan: As per HPI - See pulmonary consult note from Mar 22 - Continue home inhalers - Nebs as needed - following CO2 with sedatives- VBG and/or EtCO2 monitoring - BiPAP with back up rate if over sedation - Narcan available (3) Inguinal hernia bilateral, non-recurrent: Plan: Awaiting surgical clearance and correction (4) Essential hypertension: Plan: Continue metoprolol and lasix (5) SIADH (syndrome of inappropriate ADH production): Plan: NA stable at this time History of Present Illness Chief Complaint: Right trimalleolar fracture Primary Care Provider: Russell Dang, DO 70 YOM with past medical history of: HTN, ETOH abuse, smoker, COPD (emphysema), respiratory failure with hypercarbia, celiac and SMA aneurysms, SIADH, syncope, Inguinal hernia (awaiting repair clearance), peripheral neuropathy. Patient comes to the EMD today following a fall out of his automatic lift chair resulting in a trimalleolar fracture with anterior dislocation of the tibia over the Thallus. He was evaluated in the EMD and attempted reduction of the dislocation by EMD physician was unsuccessful. Dr. Paulino from Orthopaedics was consulted. Currently the patient is splinted with ice applied. Will be evaluated for further in the morning. Currently the patient's pain is controlled when he is not moving. Patient has underlying COPD with baseline CO2 in the 40s. He had an episode of hypercarbic respiratory failure in March requiring intubation. Will place the patient in the PCU for monitoring of respiratory and mentation status with induction of narcotics for pain control. The patient appears to have been trialed on AVAPS at home but unable to tolerate this. Also can not find his settings. He endorses that he can't tolerate "CPAP or BiPAP, but will try it if it keeps him alive" if mask is not secured to tight. He normally just sleeps with oxygen at night. Will follow his respiratory status through PM- if able to monitor ETCO2 with oxygen delivery will place on, if not will perform VBG thorough the night. He will have BIPAP available with back up rate if needed to lower his CO2 if it should rise from sedation. For his COPD continue his inhalers as well as nebulizers. Evaluate in morning with orthopaedics. Keep patient NPO after midnight. He has had a Dobutamine stress test done 04/25/19 that was negative for ischemia at 94% of his MPHR. - He continues to smoke 4-6 cigarette per day and drinks beer "occasionally", this has been 4-5 beers per day noted in 2019 review. Allergies Allergy/AdvReac Type Severity Reaction Status Date / Time No Known Allergies Allergy Verified 03/18/21 14:26 Home Medications Medication Instructions Recorded Confirmed Type folic acid 400 mcg tablet 0.4 mg PO QAM 12/13/18 04/29/21 History vitamin B complex-folic acid 2,000 1 cap PO DAILY 12/13/18 04/29/21 History mcg capsule ferrous fumarate 200 mg (65 mg 1 tab PO DAILY #30 tab 01/21/19 04/29/21 Rx iron)-vit C 25 mg tablet,extend release (Mariola-Sequels (iron-vit c)) Lactobacills gasseri-Bifidobac 1 cap PO QAM 02/25/19 04/29/21 History bifidum,longum 1.5 billion cell capsule (Probiotic Colon Support) magnesium oxide 400 mg (241.3 mg 400 mg PO DAILY #30 tab 03/04/19 04/29/21 Rx magnesium) tablet sumatriptan succinate 50 mg tablet 50 mg PO Q2H PRN #9 tab MDD 4 05/29/19 04/29/21 Rx tablets/24hrs albuterol sulfate 90 mcg/actuation 1 - 2 puff INHALATION Q4H PRN #54 04/13/20 04/29/21 Rx aerosol inhaler gm sodium chloride 1 gram tablet 1 g PO BID #180 tab 09/06/20 04/29/21 Rx atorvastatin 40 mg tablet 40 mg PO DAILY #90 tab 09/17/20 04/29/21 Rx ipratropium 0.5 mg-albuterol 3 mg 3 ml INH Q4H PRN #540 ml 12/22/20 04/29/21 Rx (2.5 mg base)/3 mL nebulization soln nebulizer accessories #1 ea 12/22/20 04/29/21 Rx BiPap Machine See Rx Instructions .ROUTE 01/04/21 04/29/21 Rx .COMPLEX #1 ea fluticasone 500 mcg-salmeterol 50 1 inh INHALATION BID #60 ea 01/04/21 04/29/21 Rx mcg/dose blistr powdr for inhalation (Advair Diskus) umeclidinium 62.5 mcg/actuation 1 inh INHALATION DAILY #30 ea 01/04/21 04/29/21 Rx blister powder for inhalation (Incruse Ellipta) venlafaxine 150 mg 150 mg PO QAM 90 Days #90 cap 01/07/21 04/29/21 Rx capsule,extended release 24 hr cyanocobalamin (vitamin B-12) 1,000 mcg PO DAILY 03/08/21 04/29/21 History 1,000 mcg tablet (Vitamin B-12) fluticasone furoate 100 1 inh INHALATION DAILY #30 ea 03/18/21 04/29/21 Rx mcg/actuation blister powder for inhalation (Arnuity Ellipta) varicella-zoster glycoE vacc-[id number] 0.5 ml IM .COMPLEX #1 ea 03/18/21 04/29/21 Rx adj(PF) 50 mcg/0.5 mL IM susp, kit (Shingrix (PF)) metoprolol succinate 50 mg See Rx Instructions .ROUTE 03/22/21 04/29/21 Rx tablet,extended release 24 hr .COMPLEX #30 tab pregabalin 100 mg capsule 100 mg PO BID #60 cap 04/08/21 04/29/21 Rx furosemide 20 mg tablet (Lasix) 20 mg PO Q OTHER DAY #15 tab 04/26/21 04/29/21 Rx Past Med/Surg History Medical History Acute hyponatremia Alcohol abuse Alcohol withdrawal Bacteremia Cellulitis Colitis COPD (chronic obstructive pulmonary disease) COPD exacerbation Delirium tremens DVT prophylaxis Face lacerations Gout Hyperlipidemia Hypertension Hypokalemia Hypomagnesemia Hyponatremia Hypoxemia Incarcerated left inguinal hernia Infection of spine DX 5 YEARS AGO (TREATED AT [place]) Klebsiella pneumoniae infection Low back pain Metabolic encephalopathy Migraine Neuropathy On home oxygen therapy 3L CONT. Orthostasis Osteoarthritis Respiratory failure Right hand fracture Right inguinal hernia Seizure Seizure LAST EPISODE LAST MONTH (HOSPITALIZED AT [facility]) ? ETIOLOGY FOLLOWED BY DR. HIGHTOWER Sepsis associated hypotension Tachycardia Tremor BILAT HANDS AND A LITTLE IN BILAT. FEET UTI (urinary tract infection) Surgical History H/O tooth extraction Lower teeth on 04/23/2018 H/O tooth extraction History of colonoscopy History of open reduction and internal fixation (ORIF) procedure FEMUR ?SIDE S/P foot surgery RT/LEFT (HARDWARE INTACT) Family History Father Hypertension Aneurysm Mother Swelling Uncle Myocardial infarction Other No significant family history Denies family history of Ovarian cancer Prostate cancer Breast cancer Colorectal cancer Social History Smoking Status: Former smoker Tobacco Type: Cigarettes Age Started Using Tobacco: 14; Age Quit Using Tobacco: 68; packs per day: 1; Cigarettes Per Day: 10; Second Hand Exposure: No; Hx Alcohol Use: No (unknown) Hx Substance Use: No Preferred Language: [place] Communication Ability: Effective Visual Impairment: Limited Hearing Ability: Normal Ski Maker Required: No Beliefs That Will Affect Care: None marital status: Current Living Situation: Spouse Current Living Situation Comment: unknown intubated and sedated current occupational status: retired Feels Safe at Home: Yes Childhood Exposure to Second-Hand Smoke: Yes Dental Care, Regularly: No Physical Activity Frequency: Does not Exercise Seatbelt Use: always Sunscreen Use: No Assistive Devices: BiPap, Oxygen - Continuous and Walker Review of Systems Review of Systems: REVIEW OF SYSTEMS: Constitutional: No fever, sweats or chills Eyes: No diplopia, no worsening or blurred vision ENT: normal hearing, no trouble swallowing Respiratory: No worsening of baseline cough, sputum, dyspnea at rest or on exertion Cardiovascular: No chest pain, tightness or palpitations Abdomen: No pain, nausea, vomiting, diarrhea or constipation Musculoskeletal: (+) right ankle and lower leg pain Neurologic: No weakness, numbness/tingling, or balance problems Psychiatric: No anxiety or depression Skin: No rash or itch Physical Exam Physical Exam: PHYSICAL EXAM: General: awake, alert, no apparent distress Head: Normocephalic, atraumatic ENT: PERRL, EOMI, no pharyngeal exudate, mucous membranes moist Neuro: AAO x 3, speech clear and appropriate, strength intact bilaterally 5/5, sensation intact and equal all extremities and dermatomes, no pronator drift Chest: equal rise and fall of the chest, no accessory muscle use, no heaves or thrills, Clear to auscultation, on room air, Cardiac: Regular rate and rhythm, telemetry reviewed- sinus tach, skin warm dry, cap refill <3 seconds, peripheral pulses +2 no JVD, no murmur, no edema GI: NABS x 4 quadrants, soft, nontender to palpation, no rebound, guarding or tenderness, large inguinal hernia : Farrell placed to gravity, Extremities: right leg in splint, sensation present to toes and leg Psych: Normal mood and affect Skin: no rash or erythema Results & Data Results & Data ([facility]) Vital Signs (Past 12 Hours) Vital Signs Temp Pulse Pulse Resp BP BP Pulse Ox 04/29/21 18:00 24 136/85 99 04/29/21 16:43 37.1 C 135 H 14 142/81 H 93 04/29/21 16:30 135 H 22 142/81 H 99 Laboratory Results Abnormal lab results 04/29/21 04/29/21 Range/Units 17:33 17:33 WBC 11.01 H (4.8-10.8) K/uL RBC 3.80 L (4.7-6.1) M/uL Hgb 10.8 L (14.0-18.0) g/dL Hct 36.5 L (42-52) % MCHC 29.6 L (32-36) g/dL RDW Std Deviation 51.2 H (36.4-46.3) fL Neut # (Auto) 8.71 H (1.4-6.5) K/uL Lymph # (Auto) 0.60 L (1.2-3.4) K/uL Yates # (Auto) 0.63 H (0.11-0.59) K/uL Eos # (Auto) 1.02 H (0-0.5) K/uL Carbon Dioxide 38 H (21-32) mmol/L Glucose 101 H (70-99(Fasting)) mg/dl Diagnostic Findings Chest X-Ray 04/29/21 16:34 XR chest 1V portable CLINICAL HISTORY: fall TECHNIQUE: Single frontal radiograph of the chest was obtained. Comparison: Comparison is made to chest one view 03/10/2021 FINDINGS: No lines and tubes are seen. The aorta is tortuous. The remainder of the cardiomediastinal silhouette is unremarkable. The lungs are clear. No evidence of pleural effusion or pneumothorax. IMPRESSION: No acute chest disease. ACT 112: Negative or not required by law. Electronically signed by: Sha Macias M.D. 04/29/2021 5:08 PM Tibia/Fibula X-Ray 04/29/21 16:34 XR tibia fibula RT 2V CLINICAL HISTORY: fall Comparison: None available at the time of this dictation. TECHNIQUE: 2 radiographic views of the right leg were obtained. FINDINGS: There is a angulated fracture of the right distal fibula at or above the tibiofibular syndesmosis. There is anterior dislocation of the tibia over the talus. A posterior malleolus fracture is seen. The medial malleolus is also fractured. Soft tissue swelling is seen about the ankle. IMPRESSION: Trimalleolar fracture and anterior dislocation of the the tibia over the talus. Surrounding soft tissue swelling. ACT 112: Negative or not required by law. Electronically signed by: Sha Macias M.D. 04/29/2021 5:17 PM Ankle X-Ray 04/29/21 17:47 XR ankle RT min 3V routine CLINICAL HISTORY: post reduction TECHNIQUE: 3 views of the right ankle were obtained. Comparison: Comparison is made to right tibia and fibula 04/29/2021 FINDINGS: Interval placement of a cast which limits fine bony detail. Redemonstration of trimalleolar fracture. Again noted is anterior displacement of the tibia over the talus. Soft tissue swelling is seen about the ankle. Degenerative changes are partially visualized in the bones of the foot. IMPRESSION: Redemonstration of trimalleolar fracture, dislocation of the ankle joint, and associated soft tissue swelling. ACT 112: Negative or not required by law. Electronically signed by: Sha Macias M.D. 04/29/2021 6:14 PM Medications Administered Home Medications folic acid 400 mcg tablet 0.4 mg PO QAM 12/13/18 [History Confirmed 04/29/21] vitamin B complex-folic acid 2,000 mcg capsule 1 cap PO DAILY 12/13/18 [History Confirmed 04/29/21] ferrous fumarate 200 mg (65 mg iron)-vit C 25 mg tablet,extend release (Mariola- Sequels (iron-vit c)) 1 tab PO DAILY #30 tab 01/21/19 [Rx Confirmed 04/29/21] Lactobacills gasseri-Bifidobac bifidum,longum 1.5 billion cell capsule (Probiotic Colon Support) 1 cap PO QAM 02/25/19 [History Confirmed 04/29/21] magnesium oxide 400 mg (241.3 mg magnesium) tablet 400 mg PO DAILY #30 tab 03/04/19 [Rx Confirmed 04/29/21] sumatriptan succinate 50 mg tablet 50 mg PO Q2H PRN #9 tab MDD 4 tablets/24hrs 05/29/19 [Rx Confirmed 04/29/21] albuterol sulfate 90 mcg/actuation aerosol inhaler 1 - 2 puff INHALATION Q4H PRN #54 gm 04/13/20 [Rx Confirmed 04/29/21] sodium chloride 1 gram tablet 1 g PO BID #180 tab 09/06/20 [Rx Confirmed 04/29/21] atorvastatin 40 mg tablet 40 mg PO DAILY #90 tab 09/17/20 [Rx Confirmed 04/29/21] ipratropium 0.5 mg-albuterol 3 mg (2.5 mg base)/3 mL nebulization soln 3 ml INH Q4H PRN #540 ml 12/22/20 [Rx Confirmed 04/29/21] nebulizer accessories #1 ea 12/22/20 [Rx Confirmed 04/29/21] BiPap Machine See Rx Instructions .ROUTE .COMPLEX #1 ea 01/04/21 [Rx Confirmed 04/29/21] fluticasone 500 mcg-salmeterol 50 mcg/dose blistr powdr for inhalation (Advair Diskus) 1 inh INHALATION BID #60 ea 01/04/21 [Rx Confirmed 04/29/21] umeclidinium 62.5 mcg/actuation blister powder for inhalation (Incruse Ellipta) 1 inh INHALATION DAILY #30 ea 01/04/21 [Rx Confirmed 04/29/21] venlafaxine 150 mg capsule,extended release 24 hr 150 mg PO QAM 90 Days #90 cap 01/07/21 [Rx Confirmed 04/29/21] cyanocobalamin (vitamin B-12) 1,000 mcg tablet (Vitamin B-12) 1,000 mcg PO DAILY 03/08/21 [History Confirmed 04/29/21] fluticasone furoate 100 mcg/actuation blister powder for inhalation (Arnuity Ellipta) 1 inh INHALATION DAILY #30 ea 03/18/21 [Rx Confirmed 04/29/21] varicella-zoster glycoE vacc-AS01B adj(PF) 50 mcg/0.5 mL IM susp, kit (Shingrix (PF)) 0.5 ml IM .COMPLEX #1 ea 03/18/21 [Rx Confirmed 04/29/21] metoprolol succinate 50 mg tablet,extended release 24 hr See Rx Instructions .ROUTE .COMPLEX #30 tab 03/22/21 [Rx Confirmed 04/29/21] pregabalin 100 mg capsule 100 mg PO BID #60 cap 04/08/21 [Rx Confirmed 04/29/21] furosemide 20 mg tablet (Lasix) 20 mg PO Q OTHER DAY #15 tab 04/26/21 [Rx Confirmed 04/29/21] Active Medications Acetaminophen (Acetaminophen 325 Mg Tab) 650 mg PO Q8 DEBBY Stop: 05/29/21 21:59 Fentanyl Citrate (Fentanyl Citrate 100 Mcg/2 Ml Vial) 50 mcg IV Q15M PRN PRN Reason: Pain Stop: 05/13/21 16:33 Last Admin: 04/29/21 17:35 Dose: 50 mcg Documented by: Morphine Sulfate (Morphine Sulfate 4 Mg/Ml 1 Ml Carp\\Vial) 3 mg IV Q6 PRN PRN Reason: severe Stop: 05/13/21 19:37 ECG Additional Comments: Vent. Rate : 096 BPM Atrial Rate : 096 BPM P-R Int : 200 ms QRS Dur : 078 ms QT Int : 360 ms P-R-T Axes : 074 052 058 degrees QTc Int : 454 ms Normal sinus rhythm Normal ECG When compared with ECG of 31-JAN-2019 11:39, No significant change was found Confirmed by Salas Hernandez ([id number]) on 03/09/2021 3:44:26 PM Code Status & VTE Plan Code Status CODE: FULL VTE: SCDS, hold on chemoprophylaxis until surgical evaluaiton VTE Prophylaxis Plan VTE Prophylaxis will be ordered: Yes Supervising Physician Co-Signing Physician Notes Patient seen and examined, chart reviewed, case discussed with ADRIEL Murcia and I agree with his assessment and plan as documented above. In brief, patient is a 70yo male with multiple medical problems, COPD, Seizure, HTN and HLP presenting with a trimalleolar fracture sustained after falling out of his lift chair at home. Failed reduction in the OR - for OR repair. Patient with severe COPD - follows with Pulmonary. Is on home O2, AVAPs at home On exam patient is agitated, anxiety at present, receiving nebulizer treatment. Easily redirected and calmed after a few moments of speaking RLE with ankle dressing in place. Sensation intact HEENT - NC/AT, PERRL, MMM Heart - +S1/S2, regular, tachycardic Lungs - diminished breath sounds bilaterally Abd - +BS, soft, NT/ND, hernia firm but nontender Ext - RLE dressing in place Labs and images reviewed Assessment/Plan -acute closed trimalleolar fracture following a fall at home from lift chair. For surgical repair by Ortho. Ice and splinting in the interim. Pain control with Tylenol, cautious use of Morphine Close attention to respiratory status, patient with severe COPD. Will use BiPAP qHS, monitor VBG for retention Remainder as above PG Care Time/CCT Total # of Minutes Spent Total Time Spent with Patient: Total time spent is greater than 50% in coordination of care (as documented) at patient's floor/unit and/or counseling patient: Coding Level of Care Code 88905 Initial Inpt Care Lvl 3 Diagnoses Trimalleolar fracture S82.853A COPD, severe J44.9 Inguinal hernia bilateral, non-recurrent K40.20 Essential hypertension I10 SIADH (syndrome of inappropriate ADH production) E22.2
[2021-04-29] MEDS ORDERED: ALBUT/IPRATROP 3MG/0.5MG NEB 3 ML VIAL NEB STA (21:04)
[2021-04-29] MEDS ORDERED: ALBUT/IPRATROP 3MG/0.5MG NEB 3 ML VIAL ONE (21:05)
[2021-04-29] MEDS: ACETAMINOPHEN 325 MG TAB PO SCH (21:07)
[2021-04-29] MEDS: ALBUT/IPRATROP 3MG/0.5MG NEB 3 ML VIAL INH SCH (21:20)
[2021-04-29] MEDS ORDERED: methylPREDNISolone 125 MG/2 ML VIAL IV STA (21:21)
[2021-04-29] MEDS ORDERED: ALBUTEROL 0.5% NEB SOLN 2.5 MG/0.5 ML VIAL NEB PRN (21:24)
[2021-04-29] MEDS ORDERED: ALBUTEROL 0.083% NEBU SOLN 3 ML VIAL NEB PRN (21:50)
[2021-04-29] MEDS ORDERED: BUDESONIDE 0.5 MG/2 ML VIAL (PULMICORT) NEB ONE (22:57)
[2021-04-29] MEDS ORDERED: NALOXONE HCL 0.4 MG/1 ML VIAL/CARP IV PRN (22:57)
[2021-04-29] MEDS ORDERED: ONDANSETRON INJ 2 MG/ML 2 ML VIAL IV PRN (22:57)
[2021-04-29 23:54] LABS: Base Excess VBG 9.2 mEq/L; HCO3 VBG 39 mmol/L; PCO2 VBG 84 mmHg (38-50); PO2 VBG 20 mmHg; pH VBG 7.28 (7.36-7.41)
[2021-04-30] MEDS ORDERED: ALBUTEROL HFA 8 GM INHALER INH SCH
[2021-04-30 00:04] LABS: Oxygen Saturation VBG < 60.0 %
[2021-04-30] MEDS: PREGABALIN 100 MG CAP PO SCH ×3 (00:18→21:04)
[2021-04-30] MEDS: ALBUT/IPRATROP 3MG/0.5MG NEB 3 ML VIAL INH SCH ×6 (03:21→23:38)
[2021-04-30 04:48] LABS: Basophils # (auto) 0.01 K/uL (0-0.2); Basophils % (auto) 0.1 %; Eosinophils # (auto) 0.02 K/uL (0-0.5); Eosinophils % (auto) 0.2 %; Hemoglobin 10.1 g/dL (14.0-18.0); Immature Granulocytes # (auto) 0.02 K/uL (0.00-0.02); Immature Granulocytes % (auto) 0.2 %; Lymphocytes # (auto) 0.44 K/uL (1.2-3.4); Mean Corpuscular Hgb Conc 29.7 g/dL (32-36); Mean Corpuscular Volume 94.2 fL (80-100); Mean Platelet Volume 9.6 fL (7.4-10.4); Monocytes # (auto) 0.13 K/uL (0.11-0.59); Monocytes % (auto) 1.2 %; Neutrophils % (auto) 94.3 %; Platelet Count 249 K/uL (130-400); RDW Coefficient of Variation 14.4 % (11.5-14.5); RDW Standard Deviation 49.6 fL (36.4-46.3); Red Blood Count 3.61 M/uL (4.7-6.1); White Blood Count 10.92 K/uL (4.8-10.8)
[2021-04-30 05:07] LABS: BUN Creatinine Ratio 23.1 (10-20); Calcium 9.3 mg/dl (8.5-10.1); Creatinine Clr Calc Pharmacy 96.7 ml/min; Est GFR (African American) 107.5 ml/min; Est GFR (Non-African American) 92.8 ml/min; Magnesium 1.6 mg/dl (1.7-2.4); Potassium 4.5 mmol/L (3.5-5.1)
[2021-04-30] MEDS: ACETAMINOPHEN 325 MG TAB PO SCH ×3 (06:01→23:09)
[2021-04-30] MEDS: BUDESONIDE 0.5 MG/2 ML VIAL (PULMICORT) NEB SCH ×2 (07:12→20:20)
[2021-04-30] MEDS: METOPROLOL SUCC 50MG EXT REL TAB PO SCH (08:22)
[2021-04-30] MEDS: FUROSEMIDE 20 MG TAB PO SCH (08:22)
[2021-04-30] MEDS: ATORVASTATIN 40 MG TAB PO SCH (08:22)
[2021-04-30] MEDS: UMECLIDINIUM BROMIDE 62.5MCG/BLISTER 7 PUFFS/INHALER INH SCH (08:23)
[2021-04-30] MEDS: VENLAFAXINE HCL XR 150 MG CAPXR PO SCH (08:23)
[2021-04-30] MEDS: MoRPHine SULFATE 2 MG/ML CARP IV PRN (08:32)
[2021-04-30] MEDS ORDERED: FLUTICASONE FUROATE 100MCG 14 PUFFS/INHALER INH SCH (09:00)
[2021-04-30] MEDS ORDERED: fentaNYL citrate 100 MCG/2 ML VIAL ONE ×2 (10:39→14:41)
[2021-04-30] MEDS ORDERED: MIDAZOLAM HCL 1 MG/ML 2ML VIAL ONE (10:39)
[2021-04-30] MEDS ORDERED: MAGNESIUM SULFATE / D5W 1 GM/100 ML BAG IV ONE (11:15)
--- NOTE | 2021-04-30 11:33 | Anesthesiology Consultation ---
Date of Service April 30, 2021 Assessment & Plan Chart Review Chart Review: Acceptable Risk for Surgery and Patient NOT seen in Pre Admission Testing Consults Requested none ASA ASA4 Proposed Anesthesia Anesthesia Type: MAC Spinal Regional Regional Laterality: Right Site: Popliteal Additional Comments: covid test neg. History Surgery Operation Date: 04/30/21 11:00 Proposed Procedures p Open Reduction Internal Fixation Ankle - Enrique Paulino DO Height/Weight Height: 5 ft 7 in Weight: 89.5 kg Allergies Allergy/AdvReac Type Severity Reaction Status Date / Time No Known Allergies Allergy Verified 03/18/21 14:26 Medications Home Medications Medication Instructions Recorded Confirmed Last Taken folic acid 400 mcg tablet 0.4 mg PO QAM 12/13/18 04/29/21 03/08/21 vitamin B complex-folic acid 2,000 1 cap PO DAILY 12/13/18 04/29/21 03/08/21 mcg capsule ferrous fumarate 200 mg (65 mg 1 tab PO DAILY #30 tab 01/21/19 04/29/21 03/08/21 iron)-vit C 25 mg tablet,extend release (Mariola-Sequels (iron-vit c)) Lactobacills gasseri-Bifidobac 1 cap PO QAM 02/25/19 04/29/21 03/08/21 bifidum,longum 1.5 billion cell capsule (Probiotic Colon Support) magnesium oxide 400 mg (241.3 mg 400 mg PO DAILY #30 tab 03/04/19 04/29/21 03/08/21 magnesium) tablet sumatriptan succinate 50 mg tablet 50 mg PO Q2H PRN #9 tab MDD 4 05/29/19 04/29/21 Unknown tablets/24hrs albuterol sulfate 90 mcg/actuation 1 - 2 puff INHALATION Q4H PRN #54 04/13/20 04/29/21 Unknown aerosol inhaler gm sodium chloride 1 gram tablet 1 g PO BID #180 tab 09/06/20 04/29/21 03/08/21 atorvastatin 40 mg tablet 40 mg PO DAILY #90 tab 09/17/20 04/29/21 03/08/21 ipratropium 0.5 mg-albuterol 3 mg 3 ml INH Q4H PRN #540 ml 12/22/20 04/29/21 Unknown (2.5 mg base)/3 mL nebulization soln nebulizer accessories #1 ea 12/22/20 04/29/21 Unknown BiPap Machine See Rx Instructions .ROUTE 01/04/21 04/29/21 Unknown .COMPLEX #1 ea fluticasone 500 mcg-salmeterol 50 1 inh INHALATION BID #60 ea 01/04/21 04/29/21 Unknown mcg/dose blistr powdr for inhalation (Advair Diskus) umeclidinium 62.5 mcg/actuation 1 inh INHALATION DAILY #30 ea 01/04/21 04/29/21 Unknown blister powder for inhalation (Incruse Ellipta) venlafaxine 150 mg 150 mg PO QAM 90 Days #90 cap 01/07/21 04/29/21 03/08/21 capsule,extended release 24 hr cyanocobalamin (vitamin B-12) 1,000 mcg PO DAILY 03/08/21 04/29/21 03/08/21 1,000 mcg tablet (Vitamin B-12) fluticasone furoate 100 1 inh INHALATION DAILY #30 ea 03/18/21 04/29/21 Unknown mcg/actuation blister powder for inhalation (Arnuity Ellipta) varicella-zoster glycoE vacc-AS01B 0.5 ml IM .COMPLEX #1 ea 03/18/21 04/29/21 Unknown adj(PF) 50 mcg/0.5 mL IM susp, kit (Shingrix (PF)) metoprolol succinate 50 mg See Rx Instructions .ROUTE 03/22/21 04/29/21 Unknown tablet,extended release 24 hr .COMPLEX #30 tab pregabalin 100 mg capsule 100 mg PO BID #60 cap 04/08/21 04/29/21 Unknown furosemide 20 mg tablet (Lasix) 20 mg PO Q OTHER DAY #15 tab 04/26/21 04/29/21 Unknown Active Medications Generic Name Dose Route Start Last Admin Trade Name Freq PRN Reason Stop Dose Admin Acetaminophen 650 mg 04/29/21 22:00 04/30/21 06:01 Acetaminophen 325 Mg Tab PO 05/29/21 21:59 650 mg Q8 DEBBY Administration Albuterol 3 ml 04/29/21 22:57 04/30/21 07:11 Albut/Ipratrop 3mg/0.5mg Neb 3 Ml Vial INH 05/29/21 22:56 3 ml Q4R DEBBY Administration Protocol Atorvastatin Calcium 40 mg 04/30/21 09:00 04/30/21 08:22 Atorvastatin 40 Mg Tab PO 05/30/21 08:59 40 mg DAILY DEBBY Administration Budesonide 0.5 mg 04/30/21 07:00 04/30/21 07:12 Budesonide 0.5 Mg/2 Ml Vial (Pulmicort) NEB 05/30/21 06:59 0.5 mg BIDR DEBBY Administration Furosemide 20 mg 04/30/21 09:00 04/30/21 08:22 Furosemide 20 Mg Tab PO 05/30/21 08:59 20 mg Q48H DEBBY Administration Metoprolol Succinate 50 mg 04/30/21 09:00 04/30/21 08:22 Metoprolol Succ 50mg Ext Rel Tab PO 05/30/21 08:59 50 mg DAILY DEBBY Administration Morphine Sulfate 2 mg 04/29/21 21:48 04/30/21 08:32 Morphine Sulfate 2 Mg/Ml Carp IV 05/13/21 21:47 2 mg Q6H PRN Administration severe Pregabalin 100 mg 04/29/21 22:57 04/30/21 08:28 Pregabalin 100 Mg Cap PO 05/29/21 22:56 100 mg BID DEBBY Administration Umeclidinium [place] 1 puffs 04/30/21 09:00 04/30/21 08:23 Umeclidinium [place] 62.5mcg/Blister 7 Puffs/Inhaler INH 05/30/21 08:59 1 puffs DAILY DEBBY Administration Venlafaxine HCl 150 mg 04/30/21 09:00 04/30/21 08:23 Venlafaxine Hcl Xr 150 Mg Capxr PO 05/30/21 08:59 150 mg QAM DEBBY Administration Past Medical History Medical History Acute hyponatremia Alcohol abuse Alcohol withdrawal Bacteremia Cellulitis Colitis COPD (chronic obstructive pulmonary disease) COPD exacerbation Delirium tremens DVT prophylaxis Face lacerations Gout Hyperlipidemia Hypertension Hypokalemia Hypomagnesemia Hyponatremia Hypoxemia Incarcerated left inguinal hernia Infection of spine DX 5 YEARS AGO (TREATED AT [place]) Klebsiella pneumoniae infection Low back pain Metabolic encephalopathy Migraine Neuropathy On home oxygen therapy 3L CONT. Orthostasis Osteoarthritis Respiratory failure Right hand fracture Right inguinal hernia Seizure Seizure LAST EPISODE LAST MONTH (HOSPITALIZED AT [facility]) ? ETIOLOGY FOLLOWED BY DR. HIGHTOWER Sepsis associated hypotension Tachycardia Tremor BILAT HANDS AND A LITTLE IN BILAT. FEET UTI (urinary tract infection) Exercise / Class Metabolic Activity III < 4 Walking/Shop/Light housework Past Family History Family History Father Hypertension Aneurysm Mother Swelling Uncle Myocardial infarction Other No significant family history Denies family history of Ovarian cancer Prostate cancer Breast cancer Colorectal cancer Past Surgical History Surgical History H/O tooth extraction Lower teeth on 04/23/2018 H/O tooth extraction History of colonoscopy History of open reduction and internal fixation (ORIF) procedure FEMUR ?SIDE S/P foot surgery RT/LEFT (HARDWARE INTACT) Past Anesthesia History No Hx of Anesthesia Complications and No Family Hx of Anesthesia Complications History of PONV No Hx of PONV and No Hx of Motion Sickness Social History Smoking Status: Former smoker tobacco type: cigarettes Smoking cigarettes per day: 10 Hx Alcohol Use: Yes Alcohol type: beer and hard liquor alcohol intake frequency: holidays/special occasions only Hx Substance Use: No substance use type: does not use Physical Exam Vital Signs Last Vital Signs Temp 36.8 C 04/30/21 08:04 Pulse 115 H 04/30/21 08:04 Resp 20 04/30/21 08:04 BP 132/84 04/30/21 08:04 Pulse Ox 94 04/30/21 08:04 Testing Laboratory Results 04/30/21 04:27 04/30/21 04:27 PT 10.4 Seconds (9.0-12.0) 04/29/21 17:35 INR 1.0 (0.9-1.1) 04/29/21 17:35 APTT 25.0 Seconds (21.0-31.0) 04/29/21 17:35 Electrocardiogram Date: 03/08/21 Findings: + NSR @ (at 96) Chest X-Ray Date: 04/29/21 Findings: + NAD and + other (c/w copd/emphysema) Stress Test Date: 04/25/19 Type: DSE Findings: + WNL Resting LV Function: normal Resting RWMA: + none Valvular Disease: no significant valvular disease
[2021-04-30] MEDS ORDERED: BUPIVACAINE 0.5 % 5 MG/1 ML PF 10ML VIAL ONE (11:37)
[2021-04-30] MEDS ORDERED: ceFAZolin 2000MG 2,000 MG/15 ML SYR IV ONE (11:42)
--- NOTE | 2021-04-30 11:43 | History & Physical Bridge Note ---
Date of Service April 30, 2021 History & Physical Bridge Note I have examined the patient, reviewed the History & Physical and in the interval since the performance of the History & Physical I have noted the following changes of clinical significance: no changes noted
[2021-04-30] MEDS ORDERED: EPINEPHrine INJ 1 MG/ML AMP ONE (11:47)
[2021-04-30] MEDS ORDERED: BUPIVACAINE 0.5 % 5 MG/1 ML MPF 30ML VIAL ONE (11:47)
[2021-04-30] MEDS ORDERED: PHENYLEPHRINE HCL 10 MG/ML VIAL ONE (13:27)
[2021-04-30] MEDS ORDERED: ePHEDrine sulfate 50 MG/ML AMP ONE (13:27)
[2021-04-30] MEDS ORDERED: ONDANSETRON INJ 2 MG/ML 2 ML VIAL ONE (14:08)
--- NOTE | 2021-04-30 14:30 | Fluoroscopy Report ---
FL ankle RT 2V HISTORY: 70 years-old Male ORIF RT ANKLE acute right ankle fracture COMPARISON: Right ankle radiographs 04/29/2021 TECHNIQUE: 2 spot fluoroscopic images of the right ankle were obtained utilizing 115.4 seconds fluoro scopy time FINDINGS: Lateral plate and screw fusion of the lateral malleolus. There is improved near anatomic alignment of the acute distal fibular fracture. There is an elongated syndesmotic screw. 2 cannulated screws fixa ting the acute medial malleolar fracture is also demonstrates alignment. Expected postoperative soft tissue swelling with deep tissue air. IMPRESSION: Fluoroscopic assistance as above. ACT 112: Negative or not required by law. The above report was generated using voice recognition software. It may contain grammatical, syntax o r spelling errors. Electronically signed by: Jayme Portillo M.D. 04/30/2021 2:28 PM
[2021-04-30] MEDS ORDERED: NALOXONE HCL 0.4 MG/1 ML VIAL/CARP IV PRN ×2 (14:40→15:25)
[2021-04-30] MEDS ORDERED: fentaNYL citrate 100 MCG/2 ML VIAL IV PRN (14:40)
[2021-04-30] MEDS ORDERED: LABETALOL HCL IV 5 MG/ML 20ML IV PRN (14:40)
[2021-04-30] MEDS ORDERED: FLUMAZENIL 0.1 MG/1 ML 10 ML VIAL IV PRN (14:40)
[2021-04-30] MEDS ORDERED: ATROPINE SULFATE 0.1 MG/ML 10ML SYR IV PRN (14:40)
[2021-04-30] MEDS ORDERED: ePHEDrine sulfate 50 MG/ML AMP IV PRN (14:40)
[2021-04-30] MEDS ORDERED: ONDANSETRON INJ 2 MG/ML 2 ML VIAL IV PRN ×2 (14:40→15:25)
[2021-04-30] MEDS ORDERED: PROMETHAZINE HCL 12.5 MG in SODIUM CHLORIDE 0.9% 50 ML IV PRN (14:40)
--- NOTE | 2021-04-30 14:47 | Post Operative Brief Note ---
Immediate Post Op Note v1 Date of Surgery April 30, 2021 Pre & Post Diagnosis Operation Date: 04/30/21 11:00 Pre-Op Diagnosis: Right Ankle displaced angulated trimalleolar fracture dislocation, right ankle syndesmotic disruption Post-Op Diagnosis: Right Ankle displaced angulated trimalleolar fracture dislocation, right ankle syndesmotic disruption I identified the patient and participated in the time-out.: Yes Procedure Operation Date: 04/30/21 11:00 Actual Procedures p Open Reduction Internal Fixation Right displaced angulated closed trimalleolar Fracture dislocation Open Reduction Internal Fixation Syndesmotic Disruption(Right) - Enrique Paulino DO Surgeon Enrique Paulino DO [employer] [place] Fernandez PA-C Estimated Blood Loss 25 Findings Consistent with Post-Op Diagnosis Drains Farrell Catheter Anesthesia Type General Regional Complications none Disposition Accompanied Patient To Recovery: No
[2021-04-30] MEDS ORDERED: MAGNESIUM HYDROXIDE SUSP 30 ML UDC PO PRN (15:25)
[2021-04-30] MEDS ORDERED: bisacodyL 10 MG SUPP PR PRN (15:25)
--- NOTE | 2021-04-30 15:30 | Hospitalist Progress Note ---
Date of Service April 30, 2021 Assessment & Plan (1) Trimalleolar fracture: Plan: Acute closed trimalleolar fracture-occurred when sliding out of his self lift chair s/p splinting - For surgical intervention today with Dr. Paulino - Pain control, will allow for Morphine - WB as indicated by ortho - Will need PT/OT eval post-op to determine dispo - Start DVT ppx tomorrow AM w/ Lovenox - Incentive spirometer use q1h while awake - Case management for d/c planning (2) COPD, severe: Plan: As per HPI, on chronic O2 3-4L - See pulmonary consult note from Mar 22 - Continue home inhalers - Nebs as needed - following CO2 with sedatives- VBG and/or EtCO2 monitoring - BiPAP with back up rate if over sedation - Narcan available (3) Alcohol abuse: Plan: - Monitor on PCU post-operatively - Add ETOH withdrawal protocol (4) Inguinal hernia bilateral, non-recurrent: Plan: - Very large, seems to be on the left - Awaiting surgical clearance and correction (5) Essential hypertension: Plan: - Continue metoprolol and lasix - BP well-controlled on current regimen (6) SIADH (syndrome of inappropriate ADH production): Plan: - NA stable at this time Admission and Anticipated Discharge Date Admission Date: April 29, 2021 Supervising Physician Co-Signing Physician Notes Chart reviewed, case discussed with Misti Arias PA-C and I agree with the assessment and plan as above. Subjective Pt seen on rounds today. Hospitalized on 04/29 d/t a fall out of his automatic lift chair resulting in a trimalleolar fracture w/ anterior dislocation of the tibia over the thallus. Pt was splinted and orthopedics consulted. Planned for surgery today with Dr. Paulino. Currently, pt endorses pain in his right ankle but was just medicated shortly prior to being seen with Morphine. Pt denies cp, dyspnea. He has COPD w/ chronic hypercapnic resp failure, wears 3-4L of supplemental O2 at all times. Review of Systems Review of Systems: REVIEW OF SYSTEMS: Constitutional: No fever, sweats or chills Eyes: No diplopia, no worsening or blurred vision ENT: normal hearing, no trouble swallowing Respiratory: No worsening of baseline cough, sputum, dyspnea at rest or on exertion Cardiovascular: No chest pain, tightness or palpitations Abdomen: No pain, nausea, vomiting, diarrhea or constipation Musculoskeletal: (+) right ankle and lower leg pain Neurologic: No weakness, numbness/tingling, or balance problems Psychiatric: No anxiety or depression Skin: No rash or itch Physical Exam Physical Exam: GENERAL: 70 yo WD/WN WM. NAD. LUNGS: Scattered expiratory wheezes appreciated bilaterally. No rhonchi. CARDIOVASCULAR: Regular rate and rhythm. No M/G/R. ABDOMEN: Soft, non-tender and non-distended. BS normal x 4 quad. EXTREMITIES: RLE is splinted and wrapped in colby. Toes appear perfused. LLE no edema, pulses +2/4. NEUROLOGIC: A&O x3. PSYCHIATRIC: Cooperative. Appropriate mood and affect. SKIN: Warm, dry, intact. No rashes or lesions. Results & Data Results & Data ([facility]) Vital Signs (Past 12 Hours) Vital Signs Temp Pulse Pulse Pulse Resp BP Pulse Ox 04/30/21 15:10 87 17 132/74 100 04/30/21 15:00 36.3 C L 87 16 123/81 100 04/30/21 08:04 36.8 C 115 H 20 132/84 94 04/30/21 08:00 115 H 04/30/21 07:14 115 H 20 93 04/30/21 04:04 37.2 C 114 H 20 113/77 98 04/30/21 03:21 70 20 97 Laboratory Results 04/30/21 04:27 04/30/21 04:27 PG Care Time/CCT Total # of Minutes Spent Total Time Spent with Patient: Total time spent is greater than 50% in coordination of care (as documented) at patient's floor/unit and/or counseling patient: Coding Level of Care Code 16023 Subseq Hosp Care Lvl 2 Diagnoses Trimalleolar fracture S82.853A COPD, severe J44.9 Inguinal hernia bilateral, non-recurrent K40.20 Essential hypertension I10 SIADH (syndrome of inappropriate ADH production) E22.2 Alcohol abuse F10.10
[2021-04-30] MEDS ORDERED: ATIVAN IV ALCOHOL WITHDRAWL IV PRN (15:47)
[2021-04-30] MEDS ORDERED: chlordiazePOXIDE ALCOHOL WITHDRAWL 25MG PO STA (15:47)
[2021-04-30] MEDS ORDERED: LORazepam 1 MG/2 ML VIAL IV PRN (15:47)
[2021-04-30] MEDS ORDERED: LORazepam 2 MG/4 ML VIAL IV PRN (15:47)
[2021-04-30] MEDS ORDERED: LORazepam 3 MG/6 ML VIAL IV PRN (15:47)
[2021-04-30] MEDS: SODIUM CHLORIDE 0.9% 1000ML 1,000 ML IV SCH (17:09)
[2021-04-30] MEDS: FLUTICASONE PROPIONATE NA SPR 16 GM BTL NAE SCH (17:58)
[2021-04-30] MEDS: chlordiazePOXIDE HCl 25 MG CAP PO SCH ×2 (17:58→23:09)
[2021-04-30] MEDS: THIAMINE HCL 100 MG TAB PO SCH (17:58)
[2021-04-30] MEDS: FOLIC ACID 1 MG TAB PO SCH (17:58)
--- NOTE | 2021-04-30 18:01 | Anesthesiology Progress Note ---
Date of Service April 30, 2021 Anesthesia Post Procedure Vital Signs Vital Signs: Temp Pulse Pulse Pulse Resp BP Pulse Ox 04/30/21 16:20 36.7 C 104 H 15 118/81 95 04/30/21 16:10 36.7 C 101 H 18 120/65 96 04/30/21 16:00 105 H 17 128/95 96 04/30/21 15:50 102 H 15 129/87 93 04/30/21 15:40 106 H 18 121/80 96 04/30/21 15:30 102 H 17 111/80 94 04/30/21 15:20 85 18 127/71 100 04/30/21 15:10 87 17 132/74 100 04/30/21 15:00 36.3 C L 87 16 123/81 100 04/30/21 08:04 36.8 C 115 H 20 132/84 94 04/30/21 08:00 115 H 04/30/21 07:14 115 H 20 93 04/30/21 04:04 37.2 C 114 H 20 113/77 98 04/30/21 03:21 70 20 97 04/30/21 01:52 116 H 22 157/85 H 98 04/30/21 00:53 116 H 24 134/87 99 04/30/21 00:24 112 H 20 145/96 H 99 04/30/21 00:23 04/30/21 00:21 118 H 18 145/96 H 100 04/29/21 21:13 130 H 30 H 97 Pulse Ox 04/30/21 16:20 04/30/21 16:10 04/30/21 16:00 04/30/21 15:50 04/30/21 15:40 04/30/21 15:30 04/30/21 15:20 04/30/21 15:10 04/30/21 15:00 04/30/21 08:04 04/30/21 08:00 04/30/21 07:14 04/30/21 04:04 04/30/21 03:21 04/30/21 01:52 04/30/21 00:53 04/30/21 00:24 04/30/21 00:23 98 04/30/21 00:21 04/29/21 21:13 Pain Intensity Right Ankle: Pain Intensity: 6 Transfer of Care Handoff Completed per policy Notes Mental Status: see notes below (Pt confused,combative,delirious) Patient Amnestic to Procedure: Yes Nausea / Vomiting: adequately controlled Pain: adequately controlled Airway Patency, RR, SpO2: stable & adequate BP & HR: stable & adequate Hydration State: stable & adequate Anesthetic Complications: no major complications apparent
[2021-04-30] MEDS: DOCUSATE SODIUM 100 MG CAP PO SCH (21:04)
[2021-04-30] MEDS: SENNA 8.6 MG TAB PO SCH (21:04)
--- NOTE | 2021-04-30 21:04 | Operative Report (OR) ---
DATE OF PROCEDURE: 04/30/2021. PREOPERATIVE DIAGNOSES: 1. Right ankle closed displaced angulated trimalleolar fracture dislocation. 2. Syndesmotic disruption. POSTOPERATIVE DIAGNOSES: 1. Right ankle closed displaced angulated trimalleolar fracture dislocation. 2. Syndesmotic disruption. PROCEDURE: 1. Right ankle open reduction and internal fixation of closed displaced angulated trimalleolar fract ure dislocation. 2. Open reduction and internal fixation of syndesmotic disruption. SURGEON: Enrique Paulino DO. HARDWARE DESIGNER: Montana Fernandez PA-C who was present for patient positioning, sterile prep and drape, management of retractors and instruments. He was present through the critical portions of the case i ncluding wound closure, application of sterile dressing and transport of the patient to recovery. ANESTHESIA: General, regional. SPECIMENS: None. DRAINS: None. COMPLICATIONS: None. BLOOD LOSS: 25 mL. PERTINENT HISTORY: This is a 70-year-old gentleman who sustained a mechanical fall on his right ankl e. He had an obvious deformity of the ankle, unable to ambulate. Transported to [facility], he was evaluated. Radiographs were obtained, noted to have a fracture dislocation of his right ankle. The Emergency Department physician attempted to reduce and splint the ankle; however, th e instability of the ankle was too great and he was just placed in a splint and then admitted to the hospitalist service, optimized for surgery and then scheduled for surgery as indicated. All potential risks, benefits, complications, alternatives, rehab potential for incomplete relief of symptoms, need for further surgery, DVT, PE, , persistent pain, swelling, scarring, weakness, ne urovascular injury, wound complications, hardware failure, nonunion, malunion, bone fracture were dis cussed with the patient. The patient decided to proceed with the procedure as indicated. DESCRIPTION OF PROCEDURE: The patient was administered a popliteal block in the preoperative holding area, then taken to the operative suite and placed supine on the operating room table. After review of consent and identification of proper operative site, the patient was sedated and spinal anestheti c was attempted; however, this failed. The patient was then anesthetized and an LMA was placed. Next , the tourniquet was placed high on the right thigh over cast padding. Right lower extremity was the n sterilely prepped and draped in the usual fashion, elevated and exsanguinated with an Esmarch jaimes ge and tourniquet inflated to 350 mmHg. After surgical timeout was performed, a 15 blade scalpel was used to make an incision over the latera l aspect of the fibula. The incision was deepened through skin, subcutaneous fat and tissue to the l evel of the fracture. There is an abundant hematoma with currant jelly consistency blood clot presen t. This was evacuated and irrigated to gain visualization of the fracture, which was then debrided a nd irrigated with sterile saline and a dental pick until clear. Next, the lateral malleolus fracture was then reduced with multiple bone clamps in addition to gentle traction under live fluoroscopic assistance. Initial plan was for a lag screw from anterior to post erior; however, the bone consistency was so poor that this was abandoned and the plan was modified to incorporate a locking periarticular distal fibular plate. The plate was then initially fixed to the lateral malleolus using a single nonlocking screw under live fluoroscopic assistance followed by luda cement of multiple locking screws distally and proximally to achieve near anatomic alignment and stab ilization and fixation of the lateral malleolus fracture. Next, initial attempt was made at percutaneous fixation of the medial malleolar fracture; however, du e to the displacement and what appeared to be interposed tissue at the fracture, the medial malleolar incision was made with a 15 blade scalpel, taking care to avoid any areas of tissue compromise. Thi s curvilinear incision was then deepened through the subcutaneous tissue and meticulous hemostasis wa s achieved with electrocautery. The saphenous vein was then retracted and protected with Weitlaner. Periosteum was indeed noted to be interposed in the fracture space, which was then dislodged and irr igated and debrided with a small dental pick and saline. Next, the medial malleolus was then reduced under direct visualization and pinned in place with 2 per cutaneous 4.0 mm cannulated screws placed under live fluoroscopic assistance. Next, under live fluor oscopic assistance, the foot was held in neutral dorsiflexion. A single anterior to posterior 4.0 ca nnulated percutaneous screw was placed to stabilize the posterior malleolar fragment and then a 4.5 m m solid screw was placed [id number] from the lateral fibula through the tibia under live flu oroscopic assistance to stabilize the syndesmosis. The foot was held in neutral dorsiflexion during placement of the screw to avoid overcompression of the lateral malleolus in the incisura. All incisions were then copiously irrigated with sterile saline until clear. The medial periosteum w as closed using 2-0 Vicryl. The lateral soft tissue and periosteum was closed using 2-0 Vicryl, the dermis was closed using buried interrupted 3-0 Vicryl and the skin was closed using 4-0 nylon sutures . A sterile compressive dressing and bulky Malick Tomas plaster splint was applied overwrapped with an Adan wrap with the foot held in neutral dorsiflexion. Tourniquet was released. Normal hyperemic r esponse turned to the toes. The patient was awakened and taken to recovery in stable condition. Job ID: [id number]
[2021-04-30 21:17] LABS: iSTAT Allen Test Pass; iSTAT Art Bld Gas pCO2 Correct 72 mmHg (35-46); iSTAT Art Bld Gas pH Corrected 7.332 (7.35-7.45); iSTAT Arterial Blood Gas HCO3 38 meg/L (19-24); iSTAT Arterial Blood Gas pCO2 72 mmHg (35-46); iSTAT Arterial Blood Gas pH 7.33 (7.35-7.45); iSTAT Arterial Blood Gas pO2 95 mmHg (80-95); iSTAT Arterial Blood Gas pO2 C 95; iSTAT Carbon Dioxide > 40 mmol/L (24-31); iSTAT FiO2 44 %; iSTAT Hematocrit 27 % (42-52); iSTAT Hemoglobin 9.2 g/dl (14.0-18.0); iSTAT Site R Radial; iSTAT Sodium 138 mmol/L (135-144)
[2021-04-30] MEDS: ceFAZolin 2000MG 2,000 MG/15 ML SYR IV SCH (21:43)
[2021-05-01] MEDS: SODIUM CHLORIDE 0.9% 1000ML 1,000 ML IV SCH (03:10)
[2021-05-01] MEDS: ALBUT/IPRATROP 3MG/0.5MG NEB 3 ML VIAL INH SCH ×6 (03:46→19:39)
--- NOTE | 2021-05-01 05:36 | Communication Note ---
Date of Service: May 01, 2021 Asked to evaluate patient by RN and RT earlier in the evening given AMS. At the time of my assessment, patient was confused, but interactive and responsive to his environment. Based on chart review, it looks like he has a normal mentation at baseline. He did, however, have a surgery done earlier today (around noon- 1300). His respiratory and neurologic exams (hold mentation) on my initial exam was stable. He received his albuterol and budesonide treatments shortly before. I did order an ABG, which demonstrated persistence of his chronic respiratory acidosis (7.33; pCO2 notable at 72) with adequate compensation (pHCO3 38) and oxygenation. VSS otherwise. After discussing with RT, opted to continue current oxygen therapy and consider utilization of BiPAP if worsening (he does not use this nightly, but rather, PRN it seems). As night continued, agitation and AMS improved. He became more arousable and orientated per RN. Upon my rechecking at around 0515, he was resting comfortably and, upon waking, A&O to person and time, and could identify the president. His respiratory status was relaxed and stable. Suspect the above was likely due to p ost-op delirium primarily. Will add on VBG to AM labs and monitor through the AM; can consider drawing labs and H&H if needed. Resident Activity Tracking Resident Involvement: Resident Care Provided Care Provided: Adult [facility]
[2021-05-01] MEDS: chlordiazePOXIDE HCl 25 MG CAP PO SCH ×2 (05:53→13:18)
[2021-05-01] MEDS: ACETAMINOPHEN 325 MG TAB PO SCH ×3 (05:57→23:02)
[2021-05-01] MEDS: ceFAZolin 2000MG 2,000 MG/15 ML SYR IV SCH (05:57)
[2021-05-01 06:23] LABS: Basophils # (auto) 0.02 K/uL (0-0.2); Basophils % (auto) 0.2 %; Eosinophils # (auto) 0.37 K/uL (0-0.5); Eosinophils % (auto) 4.5 %; Hemoglobin 8.2 g/dL (14.0-18.0); Immature Granulocytes # (auto) 0.01 K/uL (0.00-0.02); Immature Granulocytes % (auto) 0.1 %; Lymphocytes # (auto) 0.98 K/uL (1.2-3.4); Lymphocytes % (auto) 11.8 %; Mean Corpuscular Hemoglobin 28.3 pg (25-34); Mean Corpuscular Hgb Conc 30.4 g/dL (32-36); Mean Corpuscular Volume 93.1 fL (80-100); Mean Platelet Volume 9.8 fL (7.4-10.4); Monocytes # (auto) 1.05 K/uL (0.11-0.59); Monocytes % (auto) 12.7 %; Neutrophils # (auto) 5.86 K/uL (1.4-6.5); Neutrophils % (auto) 70.7 %; Platelet Count 219 K/uL (130-400); RDW Coefficient of Variation 14.7 % (11.5-14.5); RDW Standard Deviation 50.1 fL (36.4-46.3); White Blood Count 8.29 K/uL (4.8-10.8)
[2021-05-01 06:33] LABS: Base Excess VBG 8.5 mEq/L; HCO3 VBG 36 mmol/L; PCO2 VBG 69 mmHg (38-50); PO2 VBG 23 mmHg; pH VBG 7.34 (7.36-7.41)
[2021-05-01 06:35] LABS: Oxygen Saturation VBG < 60.0 %
[2021-05-01 06:43] LABS: BUN Creatinine Ratio 26.7 (10-20); Calcium 8.1 mg/dl (8.5-10.1); Creatinine Clr Calc Pharmacy 85.3 ml/min; Est GFR (African American) 101.4 ml/min; Est GFR (Non-African American) 87.5 ml/min; Magnesium 1.9 mg/dl (1.7-2.4); Potassium 4.4 mmol/L (3.5-5.1)
[2021-05-01] MEDS: BUDESONIDE 0.5 MG/2 ML VIAL (PULMICORT) NEB SCH ×2 (07:17→19:39)
--- NOTE | 2021-05-01 07:41 | Orthopedic Progress Note ---
Date of Service May 01, 2021 Assessment & Plan (1) Trimalleolar fracture: Plan: Postop day #1 ORIF right ankle trimalleolar fracture -PT/OT: Nonweightbearing right lower extremity -Pain management: As written -DVT prophylaxis: We will defer choice of anticoagulation to primary team -A.m. labs: Hemoglobin dropped to 8.2 likely due to surgical loss and bleeding to the fracture versus dilutional effect. Chemistries pending Admission and Anticipated Discharge Date Admission Date: April 29, 2021 Subjective Patient is sitting in bed eating breakfast. He is comfortable. He has complained of very little pain at this time. No other current complaints. Denies chest pain, shortness of breath, nausea/vomiting/diarrhea, fever/chills. Review of Systems Review of Systems: All systems reviewed & are unremarkable except as noted in Subjective Physical Exam Physical Exam: Right ankle: Splint/dressing is clean dry and intact, toes are mobile with sensation intact. Cap refill less than 3 seconds. No calf tenderness. Constitutional: WD/WN, vitals as above Results & Data ([facility]) Vital Signs (Past 12 Hours) Vital Signs Temp Pulse Pulse Resp BP Pulse Ox 05/01/21 07:17 81 18 96 05/01/21 03:46 96 H 20 97 05/01/21 03:21 36.5 C 88 17 108/77 90 05/01/21 00:08 36.5 C 87 18 119/71 100 04/30/21 23:38 84 18 95 04/30/21 23:12 87 04/30/21 20:22 107 H 20 95 (1) Trimalleolar fracture Fracture type: closed Laterality: right
[2021-05-01] MEDS: MoRPHine SULFATE 2 MG/ML CARP IV PRN (08:24)
[2021-05-01] MEDS: ATORVASTATIN 40 MG TAB PO SCH (08:27)
[2021-05-01] MEDS: DOCUSATE SODIUM 100 MG CAP PO SCH ×2 (08:27→19:48)
[2021-05-01] MEDS: ENOXAPARIN INJ 40 MG/0.4 ML SYR SQ SCH (08:28)
[2021-05-01] MEDS: MULTIVITAMIN TAB PO SCH (08:29)
[2021-05-01] MEDS: THIAMINE HCL 100 MG TAB PO SCH (08:29)
[2021-05-01] MEDS: FLUTICASONE PROPIONATE NA SPR 16 GM BTL NAE SCH (08:29)
[2021-05-01] MEDS: FOLIC ACID 1 MG TAB PO SCH (08:29)
[2021-05-01] MEDS: UMECLIDINIUM BROMIDE 62.5MCG/BLISTER 7 PUFFS/INHALER INH SCH (08:30)
[2021-05-01] MEDS: METOPROLOL SUCC 50MG EXT REL TAB PO SCH (08:30)
[2021-05-01] MEDS: VENLAFAXINE HCL XR 150 MG CAPXR PO SCH (08:30)
[2021-05-01] MEDS: PREGABALIN 100 MG CAP PO SCH ×2 (08:38→19:48)
[2021-05-01] MEDS ORDERED: oxyCODONE HCL IR 5 MG TAB (IMMEDIATE RELEASE) PO PRN ×2 (10:03)
[2021-05-01] MEDS ORDERED: MoRPHine SULFATE 2 MG/ML CARP IV PRN (10:04)
[2021-05-01 14:28] LABS: Hematocrit (blood only) 26.9 % (42-52); Hemoglobin 8.2 g/dL (14.0-18.0)
[2021-05-01] MEDS ORDERED: NALOXONE HCL 0.4 MG/1 ML VIAL/CARP INH STA (14:48)
[2021-05-01] MEDS ORDERED: SODIUM CHLORIDE 0.9% 1000ML 1,000 ML IV SCH (14:48)
[2021-05-01] MEDS ORDERED: traMADol HCL 50 MG TABLET PO PRN (14:51)
--- NOTE | 2021-05-01 16:43 | Hospitalist Progress Note ---
Date of Service May 01, 2021 Assessment & Plan (1) Trimalleolar fracture: Plan: Acute closed trimalleolar fracture-occurred when sliding out of his self lift chair s/p splinting * S/p ORIF done 04/[address] Paulino. Patient is nonweightbearing to the right lower extremity * Seems to be having issues with narcotic euphoria at present --Was given morphine without pain control from this --Given OxyIR but had significant narcotic euphoria --Will trial Ultram * Awaiting PT/OT but suspect will need rehab given his nonweightbearing status. He lives in a 4 story home with his . Does not need to manipulate all 4 stories but unable to be in the home without being able to facilitate steps * Lovenox for DVT prophylaxis * Incentive spirometer use q1h while awake * Case management for d/c planning (2) AMS (altered mental status): Plan: * Patient had increased agitation/combative behavior while in recovery requiring IV Ativan which caused excessive sedation * Patient has since been started on routine Librium given concern for underlying alcohol abuse (for which patient has a history of) * Lengthy discussion had with who reports that he has been sober for approximately 6 to 9 months * I suspect the episode that occurred yesterday was anesthesia related as when seen this morning, he was awake and alert and answering all questions appropriately. He was cooperative * After being given OxyIR (in conjunction with Librium), he seemed to have excessive narcotic euphoria. He did not have excessive somnolence or sedation, was not hypoxic or requiring additional supplemental oxygen with thi s * I wanted to give Aerosolized Narcan but was told that I can not do that here as "no policy for this" (literally wanted to use a vial of IV Narcan given vuia neb) * hold off on IV narcan for now, unless he becomes excessively sedate) * start IV Thiamine with plan for continuation x30 days (3) Anemia: Plan: * normocytic/normochromic * presenting Hgb 10.1 and 8.2 today (likely postop anemia) EBL 25 * He is relatively asymptomatic with this and hemodynamically stable * Venofer for IV X 3 days * Obtain iron studies * trend labs closely (4) COPD, severe: Plan: As per HPI, on chronic O2 3-4L * Continue home inhalers * Nebs as needed * following CO2 with sedatives- VBG and/or EtCO2 monitoring * BiPAP with back up rate if over sedation * Narcan available * D/W nurse and that we also need to avoid excessive O2 supplementation given risk for acute on chronic hypercapnia (would maintain pulse ox of 90- 92%) (5) Alcohol abuse: Plan: * Patient does have a history of alcohol abuse * Lengthy discussion with that he has not drank for at least 6 to 9 months. She is with him 23/10 in the home and can confirm that he is not actively drinking * He was empirically placed on Librium with as needed IV Ativan and alcohol withdrawal monitoring * It does seem that the Librium is causing excessive sedation * I am not convinced that underlying withdrawal is contributing thus will hold off on Librium for now (6) Essential hypertension: Plan: - Continue metoprolol and lasix - BP well-controlled on current regimen (7) Inguinal hernia bilateral, non-recurrent: Plan: - Very large, seems to be on the left - Awaiting surgical clearance and correction (8) SIADH (syndrome of inappropriate ADH production): Plan: * stable at this time (138) * He is on a fluid restricted diet, oral sodium tablets and Lasix every other day Plan: will D/W Dr. Taveras. Further orders as warranted Admission and Anticipated Discharge Date Admission Date: April 29, 2021 Subjective Patient seen on daily rounds today. When seen early this morning, was awake and alert. He was cooperative and answering all questions appropriately. He had issues with increased agitation and confusion immediately postoperatively while in the recovery room. Required a dose of IV Ativan which caused excessive somnolence/sedation. Blood gas was drawn but stable. This morning, he has been awake and alert. He is receiving morphine for pain which he reports is "not touching his pain". Was asked to see the patient again this afternoon as he was awake and alert but very loopy. He has received OxyIR for pain in addition to the morphine given this morning on top of routine Librium as there was concern for underlying alcohol abuse. In talking at length with the , patient is a former drinker but has not had a drink in 6 to 9 months. She is at home all day and she reports there is no concerned that he is been drinking as of lately. Review of Systems Review of Systems: All systems reviewed and are unremarkable except as noted in HPI and below Denies fevers, chills, headache, nasal congestion, sore throat, cough, chest pain, shortness of breath, palpitations, orthopnea, PND, abdominal pain, nausea, vomiting, diarrhea, constipation, dysuria, hematuria, frequency, back pain, swelling, easy bruising or bleeding, skin lesions or rashes. Physical Exam Physical Exam: General: Resting comfortably in his hospital bed. NAD. When seen initially, was A&O and answering all questions. When seen again, was very whifty/loopy. Was not sedated but concern for narcotic euphoria. HEENT: Head is AT/NC buccal mucosa is moist and pink Neck: No JVD. Negative hepatojugular reflex Cardiac: RRR with 1-2/6 CESAR Lungs: CTA without W/R/R Abdomen: Normoactive X4. Soft and nontender in all quadrants. Extremities: Right lower extremity in a postsurgical splint. Capillary refill +2. Dorsalis pedis pulse palpable and bounding Neuro: A&O X4 cranial nerves II through XII are grossly intact no focal neuro deficits Skin: No obvious skin lesions or rashes Psych: Appropriate affect pleasant and cooperative Results & Data Results & Data ([facility]) Vital Signs (Past 12 Hours) Vital Signs Temp Pulse Pulse Resp BP Pulse Ox 05/01/21 15:56 36.7 C 86 20 100/56 L 98 05/01/21 14:01 86 22 93 05/01/21 12:00 37.0 C 72 18 96/59 L 96 05/01/21 10:38 79 20 94 05/01/21 10:13 94 05/01/21 08:00 36.8 C 101 H 86 20 114/62 97 05/01/21 07:17 81 18 96 Laboratory Results 05/01/21 14:19 05/01/21 06:01 PG Care Time/CCT Total # of Minutes Spent Total Time Spent with Patient: Total time spent is greater than 50% in coordination of care (as documented) at patient's floor/unit and/or counseling patient: Coding Level of Care Code 77429 Subseq Hosp Care Lvl 2 Diagnoses Trimalleolar fracture S82.853A Fracture type: closed Laterality: right COPD, severe J44.9 Alcohol abuse F10.10 Inguinal hernia bilateral, non-recurrent K40.20 Essential hypertension I10 SIADH (syndrome of inappropriate ADH production) E22.2 AMS (altered mental status) R41.82 Anemia D64.9 (1) Trimalleolar fracture Fracture type: closed Laterality: right
[2021-05-01] MEDS ORDERED: THIAMINE HCL 100 MG in SYRINGE 9 ML IV SCH (17:30)
[2021-05-01] MEDS: IRON SUCROSE 300 MG in SODIUM CHLORIDE 0.9% 250 ML IV SCH (19:48)
[2021-05-01] MEDS: SENNA 8.6 MG TAB PO SCH (19:48)
[2021-05-02] MEDS: ALBUT/IPRATROP 3MG/0.5MG NEB 3 ML VIAL INH SCH ×3 (00:03→07:18)
[2021-05-02] MEDS: ACETAMINOPHEN 325 MG TAB PO SCH ×3 (05:53→19:39)
[2021-05-02 06:30] LABS: Basophils # (auto) 0.02 K/uL (0-0.2); Basophils % (auto) 0.3 %; Eosinophils # (auto) 0.56 K/uL (0-0.5); Eosinophils % (auto) 7.4 %; Hematocrit (blood only) 26.2 % (42-52); Hemoglobin 8.1 g/dL (14.0-18.0); Immature Granulocytes # (auto) 0.01 K/uL (0.00-0.02); Immature Granulocytes % (auto) 0.1 %; Lymphocytes # (auto) 1.26 K/uL (1.2-3.4); Lymphocytes % (auto) 16.6 %; Mean Corpuscular Hemoglobin 28.3 pg (25-34); Mean Corpuscular Hgb Conc 30.9 g/dL (32-36); Mean Corpuscular Volume 91.6 fL (80-100); Mean Platelet Volume 9.9 fL (7.4-10.4); Monocytes # (auto) 1.18 K/uL (0.11-0.59); Monocytes % (auto) 15.5 %; Neutrophils # (auto) 4.57 K/uL (1.4-6.5); Neutrophils % (auto) 60.1 %; Platelet Count 202 K/uL (130-400); RDW Coefficient of Variation 14.7 % (11.5-14.5); RDW Standard Deviation 49.8 fL (36.4-46.3); Red Blood Count 2.86 M/uL (4.7-6.1)
[2021-05-02 07:05] LABS: BUN Creatinine Ratio 19.2 (10-20); Creatinine Clr Calc Pharmacy 99.6 ml/min; Est GFR (African American) 107.5 ml/min; Est GFR (Non-African American) 92.8 ml/min; Magnesium 1.9 mg/dl (1.7-2.4); Potassium 3.7 mmol/L (3.5-5.1)
[2021-05-02] MEDS: BUDESONIDE 0.5 MG/2 ML VIAL (PULMICORT) NEB SCH (07:18)
[2021-05-02 07:20] LABS: Ferritin 45.1 ng/ml (8-388)
[2021-05-02] MEDS: UMECLIDINIUM BROMIDE 62.5MCG/BLISTER 7 PUFFS/INHALER INH SCH (08:05)
[2021-05-02] MEDS: PREGABALIN 100 MG CAP PO SCH ×2 (08:05→19:39)
[2021-05-02] MEDS: FUROSEMIDE 20 MG TAB PO SCH (08:06)
[2021-05-02] MEDS: MULTIVITAMIN TAB PO SCH (08:06)
[2021-05-02] MEDS: FOLIC ACID 1 MG TAB PO SCH (08:06)
[2021-05-02] MEDS: DOCUSATE SODIUM 100 MG CAP PO SCH ×2 (08:06→19:41)
[2021-05-02] MEDS: ATORVASTATIN 40 MG TAB PO SCH (08:06)
[2021-05-02] MEDS: ENOXAPARIN INJ 40 MG/0.4 ML SYR SQ SCH (08:06)
[2021-05-02] MEDS: THIAMINE HCL 100 MG TAB PO SCH (08:06)
[2021-05-02] MEDS: VENLAFAXINE HCL XR 150 MG CAPXR PO SCH (08:07)
[2021-05-02] MEDS: METOPROLOL SUCC 50MG EXT REL TAB PO SCH (08:07)
[2021-05-02] MEDS: FLUTICASONE PROPIONATE NA SPR 16 GM BTL NAE SCH (08:07)
[2021-05-02] MEDS ORDERED: SODIUM CHLORIDE 0.9% 250 ML IV PRN (08:52)
[2021-05-02] MEDS ORDERED: ALBUT/IPRATROP 3MG/0.5MG NEB 3 ML VIAL INH PRN (08:56)
[2021-05-02] MEDS ORDERED: ACETAMINOPHEN 325 MG TAB PO SCH (09:00)
[2021-05-02] MEDS ORDERED: diphenhydrAMINE Capsule 25 MG CAP PO SCH (09:00)
[2021-05-02 09:18] LABS: Vitamin B12 > 1500 pg/ml (211-911)
[2021-05-02 09:32] LABS: Folate (Folic Acid) 22.69 ng/ml (>5.38)
[2021-05-02] MEDS ORDERED: FUROSEMIDE 40 MG/4 ML VIAL IV SCH (10:00)
--- NOTE | 2021-05-02 10:28 | Hospitalist Progress Note ---
Date of Service May 02, 2021 Assessment & Plan (1) Trimalleolar fracture: Plan: Acute closed trimalleolar fracture-occurred when sliding out of his self lift chair s/p splinting * S/p ORIF done 04/[address] Paulino. Patient is nonweightbearing to the right lower extremity * Did have narcotic euphoria with OxyContin --Was given morphine without pain control from this --Given OxyIR but had significant narcotic euphoria --Seems to be tolerating Ultram without ill effects * Awaiting PT/OT but suspect will need rehab given his nonweightbearing status. He lives in a 4 story home with his . Does not need to manipulate all 4 stories but unable to be in the home without being able to facilitate steps * Lovenox for DVT prophylaxis * Incentive spirometer use q1h while awake * Case management for d/c planning (2) AMS (altered mental status): Plan: * Patient had increased agitation/combative behavior while in recovery requiring IV Ativan which caused excessive sedation * Patient was started on routine Librium given concern for underlying alcohol abuse (for which patient has a history of) * After being given OxyIR (in conjunction with Librium) on 05/01, he seemed to have excessive narcotic euphoria. He did not have excessive somnolence or sedation, was not hypoxic or requiring additional supplemental oxygen with this. Resp Rate was 18 * I wanted to give Aerosolized Narcan but was told that I can not do that here as "no policy for this" * Given IVF and mentation has improved * Lengthy discussion had with patient's who claims he has been sober for 6 to 9 months. After discussion with patient today, he admits that he does drink "2-3 beers several times a week". He reports his last drink was 3 weeks ago. Given fear for acute alcohol withdrawal/DTs, I have placed him back on Librium (but a lower dose) with continued CIWA monitoring. Will not use opiates for pain given excessive narcotic euphoria he experienced yesterday. * continue Thiamine with plan for continuation x30 days (3) Anemia: Plan: * normocytic/normochromic * presenting Hgb 10.1 and 8.1 today (likely postop anemia) EBL 25 * He continues to complain of SOB with worsening KELLEY. He believes it is related to his COPD and low oxygen levels but his pulse ox has remained in the mid to high 90s on 2 L (again on 4 L chronically) * I suspect his shortness of breath may be related to his anemia * Venofer for IV X 3 days * iron level normal at 215 * Given his symptoms and postoperative state of menses ideally would have a hemoglobin of 9 for adequate wound healing), will type and cross match 2 units and transfuse 1 unit now. Follow H&H closely * Suspect anemia multifactorialblood loss from surgery and could have dilutional component (4) COPD, severe: Plan: As per HPI, on chronic O2 3-4L * Continue home inhalers * Nebs as needed * following CO2 with sedatives- VBG and/or EtCO2 monitoring * BiPAP with back up rate if over sedation * Narcan available * D/W patient, nurse and that we also need to avoid excessive O2 supplementation given risk for acute on chronic hypercapnia (would maintain pulse ox of 90-92%) (5) Alcohol abuse: Plan: * Patient does have a history of alcohol abuse * As outlined above, did notes no alcohol for approximately 6 to 9 months but patient reports he does drink "occasionally" * Given risk for acute alcohol withdrawal/DTs, he will be placed back on Librium (lower dose) with CIWA monitoring (6) Essential hypertension: Plan: * Continue metoprolol and lasix * BP well-controlled on current regimen (7) Inguinal hernia bilateral, non-recurrent: Plan: * Very large, seems to be on the left * awaiting surgical clearance and correction * Does not appear to be incarcerated/strangulated (8) SIADH (syndrome of inappropriate ADH production): Plan: * stable at this time (139) * He is on a fluid restricted diet, oral sodium tablets and Lasix every other day Plan: will D/W Dr. Taveras. Further orders as warranted Admission and Anticipated Discharge Date Admission Date: April 29, 2021 Subjective Patient seen on daily rounds today. Only complaint is that he feels SOB. He is c onvinced that it's because his O2 needs turned up (currently 97% on 2L. Typically wears 4L). He was very winded when trying to sit up and use the urinal. Denies CP, palpitations, dizziness/lightheadedness. Yesterday, had heightened euphoria from the oxycontin given. He was gently hydrated with IVF and all opiate medications were stopped. In addition, further doses of Librium were held (this was on board given concern for underlying ETOH abuse). Yesterday, reported that he hasn't drank in "6-9 months". Today, patient vocalizes that he does "drink occasionally" but admits that he does have a long standing h/o ETOH abuse. "Drinks 2-3 cans of beers every several weeks". "Last drink was 3 weeks ago". Is complaining of some mild pain in his right lower extremity but it is tolerable. Review of Systems Review of Systems: All systems reviewed and are unremarkable except as noted in HPI and below Denies fevers, chills, headache, nasal congestion, sore throat, cough, chest pain, shortness of breath, palpitations, orthopnea, PND, abdominal pain, nausea, vomiting, diarrhea, constipation, dysuria, hematuria, frequency, back pain, swelling, easy bruising or bleeding, skin lesions or rashes. Physical Exam Physical Exam: General: Resting comfortably in his hospital bed. NAD. HEENT: Head is AT/NC buccal mucosa is moist and pink Neck: No JVD. Negative hepatojugular reflex Cardiac: RRR with 1-2/6 CESAR Lungs: CTA without W/R/R Abdomen: Normoactive X4. Soft and nontender in all quadrants. Extremities: Right lower extremity in a postsurgical splint. Capillary refill +2. Dorsalis pedis pulse palpable and bounding Neuro: A&O X4 cranial nerves II through XII are grossly intact no focal neuro deficits Skin: No obvious skin lesions or rashes Psych: Appropriate affect pleasant and cooperative Results & Data Results & Data ([facility]) Vital Signs (Past 12 Hours) Vital Signs Temp Pulse Pulse Resp BP BP Pulse Ox 05/02/21 07:19 80 20 97 05/02/21 07:09 37.2 C 91 H 18 138/72 90 05/02/21 03:22 88 16 90 05/02/21 03:07 37.1 C 96 H 18 135/65 90 05/02/21 01:29 83 05/02/21 00:06 66 25 H 93 05/01/21 22:58 36.8 C 81 18 119/61 90 05/01/21 22:45 93 Laboratory Results 05/02/21 05:36 05/02/21 05:36 PG Care Time/CCT Total # of Minutes Spent Total Time Spent with Patient: Total time spent is greater than 50% in coordination of care (as documented) at patient's floor/unit and/or counseling patient: Coding Level of Care Code 28722 Subseq Hosp Care Lvl 2 Diagnoses Trimalleolar fracture S82.853A Fracture type: closed Laterality: right AMS (altered mental status) R41.82 Anemia D64.9 COPD, severe J44.9 Alcohol abuse F10.10 Essential hypertension I10 Inguinal hernia bilateral, non-recurrent K40.20 SIADH (syndrome of inappropriate ADH production) E22.2 (1) Trimalleolar fracture Fracture type: closed Laterality: right
--- NOTE | 2021-05-02 10:37 | Orthopedic Progress Note ---
Date of Service May 02, 2021 Assessment & Plan (1) Trimalleolar fracture: Plan: Postop day #1 ORIF right ankle trimalleolar fracture -PT/OT: Nonweightbearing right lower extremity -Pain management: As written -DVT prophylaxis: We will defer choice of anticoagulation to primary team -A.m. labs: Hemoglobin dropped to 8.1. 8.2 yesterday. Ortho will sign off at this time. Instructions placed in dc section. Please call with questions. Admission and Anticipated Discharge Date Admission Date: April 29, 2021 Subjective POD 2 Pt currently sitting at the bedside working with Physical Therapist. No complaints. States he has some numbness of the toes today but has history of neuropathy. Does not appear to be worse. Physical Exam Physical Exam: Splint/dressing C/D/I. Toes with dependent rubor due to sitting at bedside. Moving toes well. Cap refill around 2 seconds. Has numbness in toes but has h/o neuropathy. Results & Data ([facility]) Vital Signs (Past 12 Hours) Vital Signs Temp Pulse Pulse Resp BP BP Pulse Ox 05/02/21 07:19 80 20 97 05/02/21 07:09 37.2 C 91 H 18 138/72 90 05/02/21 03:22 88 16 90 05/02/21 03:07 37.1 C 96 H 18 135/65 90 05/02/21 01:29 83 05/02/21 00:06 66 25 H 93 05/01/21 22:58 36.8 C 81 18 119/61 90 05/01/21 22:45 93 Laboratory Results Laboratory Results WBC 7.60 K/uL (4.8-10.8) 05/02/21 05:36 RBC 2.86 M/uL (4.7-6.1) L 05/02/21 05:36 Hgb 8.1 g/dL (14.0-18.0) L 05/02/21 05:36 POC Hgb 9.2 g/dl (14.0-18.0) L 04/30/21 21:02 Hct 26.2 % (42-52) L 05/02/21 05:36 POC Hct 27 % (42-52) L 04/30/21 21:02 MCV 91.6 fL (80-100) 05/02/21 05:36 MCH 28.3 pg (25-34) 05/02/21 05:36 MCHC 30.9 g/dL (32-36) L 05/02/21 05:36 RDW Std Deviation 49.8 fL (36.4-46.3) H 05/02/21 05:36 RDW Coeff of Jem 14.7 % (11.5-14.5) H 05/02/21 05:36 Plt Count 202 K/uL (130-400) 05/02/21 05:36 MPV 9.9 fL (7.4-10.4) 05/02/21 05:36 Immature Gran % (Auto) 0.1 % 05/02/21 05:36 Neut % (Auto) 60.1 % 05/02/21 05:36 Lymph % (Auto) 16.6 % 05/02/21 05:36 Sherman % (Auto) 15.5 % 05/02/21 05:36 Eos % (Auto) 7.4 % 05/02/21 05:36 Baso % (Auto) 0.3 % 05/02/21 05:36 Neut # (Auto) 4.57 K/uL (1.4-6.5) 05/02/21 05:36 Lymph # (Auto) 1.26 K/uL (1.2-3.4) 05/02/21 05:36 Sherman # (Auto) 1.18 K/uL (0.11-0.59) H 05/02/21 05:36 Eos # (Auto) 0.56 K/uL (0-0.5) H 05/02/21 05:36 Baso # (Auto) 0.02 K/uL (0-0.2) 05/02/21 05:36 Immature Gran # (Auto) 0.01 K/uL (0.00-0.02) 05/02/21 05:36 PT 10.4 Seconds (9.0-12.0) 04/29/21 17:35 INR 1.0 (0.9-1.1) 04/29/21 17:35 APTT 25.0 Seconds (21.0-31.0) 04/29/21 17:35 PTT Ratio 1.0 04/29/21 17:35 Sample Site R Radial 04/30/21 21:02 POC pH 7.33 (7.35-7.45) L 04/30/21 21:02 POC pCO2 72 mmHg (35-46) H 04/30/21 21:02 POC pO2 95 mmHg (80-95) 04/30/21 21:02 POC HCO3 38 gurdeep/L (19-24) H 04/30/21 21:02 POC Total CO2 > 40 mmol/L (24-31) H* 04/30/21 21:02 POC Base Excess 12.0 gurdeep/L (-9-1.8) H 04/30/21 21:02 ABG pH (Temp Correct) 7.332 (7.35-7.45) L 04/30/21 21:02 ABG pCO2 (Temp Corrct 72 mmHg (35-46) H 04/30/21 21:02 POC ABG pO2 at Pt Temp 95 04/30/21 21:02 POC ABG O2 Sat 96.0 % (90-95) H 04/30/21 21:02 Chris Test Pass 04/30/21 21:02 VBG pH 7.34 (7.36-7.41) L 05/01/21 06:01 VBG pCO2 69 mmHg (38-50) H 05/01/21 06:01 VBG pO2 23 mmHg 05/01/21 06:01 VBG HCO3 36 mmol/L 05/01/21 06:01 VBG O2 Saturation < 60.0 % 05/01/21 06:01 VBG Base Excess 8.5 mEq/L 05/01/21 06:01 O2 Delivery Device Oxyhood 04/30/21 21:02 POC FiO2 44 % 04/30/21 21:02 POC Sodium 138 mmol/L (135-144) 04/30/21 21:02 Sodium 139 mmol/L (136-145) 05/02/21 05:36 POC Potassium 4.0 mmol/L (3.3-5.0) 04/30/21 21:02 Potassium 3.7 mmol/L (3.5-5.1) 05/02/21 05:36 Chloride 102 mmol/L (98-107) 05/02/21 05:36 Carbon Dioxide 36 mmol/L (21-32) H 05/02/21 05:36 Anion Gap 1 (3-11) L 05/02/21 05:36 BUN 15 mg/dl (6-23) 05/02/21 05:36 Creatinine 0.78 mg/dl (0.6-1.4) 05/02/21 05:36 Est Cr Clr Drug Dosing 99.6 ml/min 05/02/21 05:36 Est GFR ( Amer) 107.5 ml/min 05/02/21 05:36 Est GFR (Non-Af Amer) 92.8 ml/min 05/02/21 05:36 BUN/Creatinine Ratio 19.2 (10-20) 05/02/21 05:36 Glucose 102 mg/dl (70-99(Fasting)) H 05/02/21 05:36 Calcium 8.0 mg/dl (8.5-10.1) L 05/02/21 05:36 Magnesium 1.9 mg/dl (1.7-2.4) 05/02/21 05:36 Iron 215 mcg/dl (35-175) H 05/02/21 05:36 Ferritin 45.1 ng/ml (8-388) 05/02/21 05:36 Total Bilirubin 0.4 mg/dl (0.2-1.0) 04/29/21 17:33 AST 18 U/L (13-39) 04/29/21 17:33 ALT 15 U/L (7-52) 04/29/21 17:33 Alkaline Phosphatase 88 U/L (34-104) 04/29/21 17:33 Total Protein 6.8 gm/dl (6.0-8.3) 04/29/21 17:33 Albumin 3.8 gm/dl (3.4-5.0) 04/29/21 17:33 Globulin 3.0 gm/dl (2.5-4.0) 04/29/21 17:33 Albumin/Globulin Ratio 1.3 (0.9-2) 04/29/21 17:33 Lipase 24 U/L (11-82) 04/29/21 17:33 Vitamin B12 > 1500 pg/ml (211-911) H 05/02/21 05:40 Folate 22.69 ng/ml (>5.38) 05/02/21 05:40 SARS-CoV-2, RNA, NAAT NEGATIVE (NEGATIVE) 04/29/21 19:10 Crossmatch See Detail 05/02/21 09:06 Impressions Tibia/Fibula X-Ray 04/29/21 16:34 XR tibia fibula RT 2V CLINICAL HISTORY: fall Comparison: None available at the time of this dictation. TECHNIQUE: 2 radiographic views of the right leg were obtained. FINDINGS: There is a angulated fracture of the right distal fibula at or above the tibiofibular syndesmosis. There is anterior dislocation of the tibia over the talus. A posterior malleolus fracture is seen. The medial malleolus is also fractured. Soft tissue swelling is seen about the ankle. IMPRESSION: Trimalleolar fracture and anterior dislocation of the the tibia over the talus. Surrounding soft tissue swelling. ACT 112: Negative or not required by law. Electronically signed by: Sha Macias M.D. 04/29/2021 5:17 PM Ankle X-Ray 04/30/21 00:00 FL ankle RT 2V HISTORY: 70 years-old Male ORIF RT ANKLE acute right ankle fracture COMPARISON: Right ankle radiographs 04/29/2021 TECHNIQUE: 2 spot fluoroscopic images of the right ankle were obtained utilizing 115.4 seconds fluoroscopy time FINDINGS: Lateral plate and screw fusion of the lateral malleolus. There is improved near anatomic alignment of the acute distal fibular fracture. There is an elongated syndesmotic screw. 2 cannulated screws fixating the acute medial malleolar fracture is also demonstrates alignment. Expected postoperative soft tissue swelling with deep tissue air. IMPRESSION: Fluoroscopic assistance as above. ACT 112: Negative or not required by law. The above report was generated using voice recognition software. It may contain grammatical, syntax or spelling errors. Electronically signed by: Jayme Portillo M.D. 04/30/2021 2:28 PM (1) Trimalleolar fracture Fracture type: closed Laterality: right
[2021-05-02 18:34] LABS: Hematocrit (blood only) 29.2 % (42-52); Hemoglobin 8.9 g/dL (14.0-18.0)
[2021-05-02] MEDS: IRON SUCROSE 300 MG in SODIUM CHLORIDE 0.9% 250 ML IV SCH (19:34)
[2021-05-02] MEDS: SENNA 8.6 MG TAB PO SCH (19:40)
[2021-05-03] MEDS: ACETAMINOPHEN 325 MG TAB PO SCH (05:03)
[2021-05-03 06:27] LABS: Basophils # (auto) 0.03 K/uL (0-0.2); Basophils % (auto) 0.4 %; Eosinophils # (auto) 1.07 K/uL (0-0.5); Eosinophils % (auto) 13.6 %; Hematocrit (blood only) 31.3 % (42-52); Hemoglobin 9.6 g/dL (14.0-18.0); Immature Granulocytes # (auto) 0.02 K/uL (0.00-0.02); Immature Granulocytes % (auto) 0.3 %; Lymphocytes # (auto) 1.49 K/uL (1.2-3.4); Lymphocytes % (auto) 18.9 %; Mean Corpuscular Hgb Conc 30.7 g/dL (32-36); Mean Corpuscular Volume 91.3 fL (80-100); Mean Platelet Volume 9.8 fL (7.4-10.4); Monocytes % (auto) 10.2 %; Neutrophils # (auto) 4.47 K/uL (1.4-6.5); Neutrophils % (auto) 56.6 %; Platelet Count 219 K/uL (130-400); RDW Coefficient of Variation 15.9 % (11.5-14.5); RDW Standard Deviation 53.2 fL (36.4-46.3); Red Blood Count 3.43 M/uL (4.7-6.1); White Blood Count 7.88 K/uL (4.8-10.8)
[2021-05-03 06:53] LABS: BUN Creatinine Ratio 18.8 (10-20); Calcium 8.6 mg/dl (8.5-10.1); Creatinine Clr Calc Pharmacy 122.3 ml/min; Est GFR (African American) 116.6 ml/min; Est GFR (Non-African American) 100.6 ml/min; Potassium 3.4 mmol/L (3.5-5.1)
--- NOTE | 2021-05-03 08:02 | Hospitalist Progress Note ---
Date of Service May 03, 2021 Assessment & Plan (1) Trimalleolar fracture: Plan: Acute closed trimalleolar fracture-occurred when sliding out of his self lift chair s/p splinting * S/p ORIF done 04/[address] Paulino. Patient is nonweightbearing to the right lower extremity * Did have narcotic euphoria with OxyContin --Was given morphine without pain control from this --Given OxyIR but had significant narcotic euphoria --Seems to be tolerating Ultram without ill effects * Awaiting PT/OT but suspect will need rehab given his nonweightbearing status. He lives in a 4 story home with his . Does not need to manipulate all 4 stories but unable to be in the home without being able to facilitate steps * Lovenox for DVT prophylaxis * Incentive spirometer use q1h while awake * Case management for d/c planning (2) AMS (altered mental status): Plan: * Patient had increased agitation/combative behavior while in recovery requiring IV Ativan which caused excessive sedation * Patient was started on routine Librium given concern for underlying alcohol abuse (for which patient has a history of) * After being given OxyIR (in conjunction with Librium) on 05/01, he seemed to have excessive narcotic euphoria. He did not have excessive somnolence or sedation, was not hypoxic or requiring additional supplemental oxygen with this. Resp Rate was 18 * I wanted to give Aerosolized Narcan but was told that I can not do that here as "no policy for this" * Given IVF and mentation has improved * Lengthy discussion had with patient's who claims he has been sober for 6 to 9 months. After discussion with patient today, he admits that he does drink "2-3 beers several times a week". He reports his last drink was 3 weeks ago. Given fear for acute alcohol withdrawal/DTs, I have placed him back on Librium (but a lower dose) with continued CIWA monitoring. Will not use opiates for pain given excessive narcotic euphoria he experienced yesterday. * continue Thiamine with plan for continuation x30 days (3) Anemia: Plan: * normocytic/normochromic * presenting Hgb 10.1 and 8.1 today (likely postop anemia) EBL 25 * He continues to complain of SOB with worsening KELLEY. He believes it is related to his COPD and low oxygen levels but his pulse ox has remained in the mid to high 90s on 2 L (again on 4 L chronically) * I suspect his shortness of breath may be related to his anemia * Venofer for IV X 3 days * iron level normal at 215 * Given his symptoms and postoperative state of menses ideally would have a hemoglobin of 9 for adequate wound healing), will type and cross match 2 units and transfuse 1 unit now. Follow H&H closely * Suspect anemia multifactorialblood loss from surgery and could have dilutional component (4) Hypokalemia: Plan: * will supplement (5) COPD, severe: Plan: As per HPI, on chronic O2 3-4L * Continue home inhalers * Nebs as needed * following CO2 with sedatives- VBG and/or EtCO2 monitoring * BiPAP with back up rate if over sedation * Narcan available * D/W patient, nurse and that we also need to avoid excessive O2 supplementation given risk for acute on chronic hypercapnia (would maintain pulse ox of 90-92%) (6) Alcohol abuse: Plan: * Patient does have a history of alcohol abuse * As outlined above, did notes no alcohol for approximately 6 to 9 months but patient reports he does drink "occasionally" * Given risk for acute alcohol withdrawal/DTs, he will be placed back on Librium (lower dose) with CIWA monitoring (7) Essential hypertension: Plan: * Continue metoprolol and lasix * BP well-controlled on current regimen (8) Inguinal hernia bilateral, non-recurrent: Plan: * Very large, seems to be on the left * awaiting surgical clearance and correction * Does not appear to be incarcerated/strangulated (9) SIADH (syndrome of inappropriate ADH production): Plan: * stable at this time (139) * He is on a fluid restricted diet, oral sodium tablets and Lasix every other day Plan: will D/W Dr. Taveras. Further orders as warranted Admission and Anticipated Discharge Date Admission Date: April 29, 2021 Subjective Patient seen on daily rounds today Review of Systems Review of Systems: All systems reviewed and are unremarkable except as noted in HPI and below Denies fevers, chills, headache, nasal congestion, sore throat, cough, chest pain, shortness of breath, palpitations, orthopnea, PND, abdominal pain, nausea, vomiting, diarrhea, constipation, dysuria, hematuria, frequency, back pain, swelling, easy bruising or bleeding, skin lesions or rashes. Physical Exam Physical Exam: General: Resting comfortably in his hospital bed. NAD. HEENT: Head is AT/NC buccal mucosa is moist and pink Neck: No JVD. Negative hepatojugular reflex Cardiac: RRR with 1-2/6 CESAR Lungs: CTA without W/R/R Abdomen: Normoactive X4. Soft and nontender in all quadrants. Extremities: Right lower extremity in a postsurgical splint. Capillary refill +2. Dorsalis pedis pulse palpable and bounding Neuro: A&O X4 cranial nerves II through XII are grossly intact no focal neuro deficits Skin: No obvious skin lesions or rashes Psych: Appropriate affect pleasant and cooperative Results & Data Results & Data ([facility]) Vital Signs (Past 12 Hours) Vital Signs Temp Pulse Pulse Resp BP Pulse Ox 05/03/21 03:11 36.7 C 83 18 126/74 96 05/02/21 23:28 80 05/02/21 23:23 36.5 C 77 18 110/66 94 PG Care Time/CCT Total # of Minutes Spent Total Time Spent with Patient: Total time spent is greater than 50% in coordination of care (as documented) at patient's floor/unit and/or counseling patient: Coding Diagnoses Trimalleolar fracture S82.853A Fracture type: closed Laterality: right AMS (altered mental status) R41.82 Anemia D64.9 COPD, severe J44.9 Alcohol abuse F10.10 Essential hypertension I10 Inguinal hernia bilateral, non-recurrent K40.20 SIADH (syndrome of inappropriate ADH production) E22.2 Hypokalemia E87.6 (1) Trimalleolar fracture Fracture type: closed Laterality: right
[2021-05-03] MEDS ORDERED: POTASSIUM CHLORIDE CRTAB 20 MEQ TABCR PO STA (08:04)
[2021-05-03] MEDS: DOCUSATE SODIUM 100 MG CAP PO SCH (08:44)
[2021-05-03] MEDS: PREGABALIN 100 MG CAP PO SCH (08:44)
[2021-05-03] MEDS: ATORVASTATIN 40 MG TAB PO SCH (08:45)
[2021-05-03] MEDS: VENLAFAXINE HCL XR 150 MG CAPXR PO SCH (08:45)
[2021-05-03] MEDS: FOLIC ACID 1 MG TAB PO SCH (08:45)
[2021-05-03] MEDS: THIAMINE HCL 100 MG TAB PO SCH (08:46)
[2021-05-03] MEDS: METOPROLOL SUCC 50MG EXT REL TAB PO SCH (08:46)
[2021-05-03] MEDS: MULTIVITAMIN TAB PO SCH (08:46)
[2021-05-03] MEDS: UMECLIDINIUM BROMIDE 62.5MCG/BLISTER 7 PUFFS/INHALER INH SCH (08:47)
[2021-05-03] MEDS: FLUTICASONE PROPIONATE NA SPR 16 GM BTL NAE SCH (08:47)
[2021-05-03] MEDS: ENOXAPARIN INJ 40 MG/0.4 ML SYR SQ SCH (08:47)
[2021-05-03] MEDS ORDERED: FLUTICASONE/VILANTEROL 100/25MCG 14 PUFFS/INHALER INH SCH (09:30)
--- NOTE | 2021-05-03 14:12 | Discharge Summary ---
Date of Service May 03, 2021 Admission HPI Per Admitting Provider 70 YOM with past medical history of: HTN, ETOH abuse, smoker, COPD (emphysema), respiratory failure with hypercarbia, celiac and SMA aneurysms, SIADH, syncope, Inguinal hernia (awaiting repair clearance), peripheral neuropathy. Patient comes to the [facility] today following a fall out of his automatic lift chair resulting in a trimalleolar fracture with anterior dislocation of the tibia over the Thallus. He was evaluated in the EMD and attempted reduction of the dislocation by [facility] physician was unsuccessful. Dr. Paulino from Orthopaedics was consulted. Currently the patient is splinted with ice applied. Will be evaluated for further in the morning. Currently the patient's pain is controlled when he is not moving. Patient has underlying COPD with baseline CO2 in the 40s. He had an episode of hypercarbic respiratory failure in March requiring intubation. Will place the patient in the PCU for monitoring of respiratory and mentation status with induction of narcotics for pain control. The patient appears to have been trialed on AVAPS at home but unable to tolerate this. Also can not find his settings. He endorses that he can't tolerate "CPAP or BiPAP, but will try it if it keeps him alive" if mask is not secured to tight. He normally just sleeps with oxygen at night. Will follow his respiratory status through PM- if able to monitor ETCO2 with oxygen delivery will place on, if not will perform VBG thorough the night. He will have BIPAP available with back up rate if needed to lower his CO2 if it should rise from sedation. For his COPD continue his inhalers as well as nebulizers. Evaluate in morning with orthopaedics. Keep patient NPO after midnight. He has had a Dobutamine stress test done 04/25/19 that was negative for ischemia at 94% of his MPHR. - He continues to smoke 4-6 cigarette per day and drinks beer "occasionally", this has been 4-5 beers per day noted in 2019 review. Principal Diagnosis 1. Trimalleolar fractureright 2. S/p ORIF RLE 3. Anemia- postoperative/dilutional. s/p transfusion 1U PRBC's 4. AMS- Opiate Induced 5. ? ETOH dependence- on tapering Librium to prevent acute WD- no s/s Discharge Exam General: Resting comfortably in his hospital bed. NAD. HEENT: Head is AT/NC buccal mucosa is moist and pink Neck: No JVD. Negative hepatojugular reflex Cardiac: RRR with 1-2/6 CESAR Lungs: CTA without W/R/R Abdomen: Normoactive X4. Soft and nontender in all quadrants. Extremities: Right lower extremity in a postsurgical splint. Capillary refill +2. Dorsalis pedis pulse palpable and bounding Neuro: A&O X4 cranial nerves II through XII are grossly intact no focal neuro deficits Skin: No obvious skin lesions or rashes Psych: Appropriate affect pleasant and cooperative Discharge Data Allergies Allergy/AdvReac Type Severity Reaction Status Date / Time No Known Allergies Allergy Verified 03/18/21 14:26 Consultations 04/29/21 18:48 Consult Orthopedic Surgery Routine ED Decision to Admit Stat 04/29/21 19:47 Consult Orthopedic Surgery Routine Procedures Performed Operation Date: 04/30/21 11:00 Actual Procedures p Open Reduction Internal Fixation Right Trimalleolar Fracture, Open Reduction Internal Fixation Syndesmotic Disruption(Right) - Enrique Paulino, Ordered Studies 04/30/21 FL ankle RT 2V Routine IMPRESSION: Trimalleolar fracture and anterior dislocation of the the tibia over the talus. Surrounding soft tissue swelling. 04/30/21 11:56 US - OR guided needle placemen Stat Hospital Course (1) Trimalleolar fracture: Acute closed trimalleolar fracture-occurred when sliding out of his self lift chair s/p splinting * S/p ORIF done 04/[address] Paulino. Patient is to remain nonweightbearing to the right lower extremity * Did have narcotic euphoria with OxyContin post-operatively --Was given morphine without pain control from this --Given OxyIR but had significant narcotic euphoria --Seems to be tolerating Ultram without ill effects * He lives in a 4 story home with his , given the NWB restrictions to the RLE-- not able to meet therapy goals including step training and rehab recommended by PT/OT * He is medically and HD stable for DC at this time-- to [facility] * Lovenox for DVT prophylaxis while in house. Recommend ambulation moving froward * Incentive spirometer utilized while in house FU with Ortho (10-14 days from Surgery) (2) AMS (altered mental status): * Patient had increased agitation/combative behavior while in recovery requiring IV Ativan which caused excessive sedation * Patient was started on routine Librium given concern for underlying alcohol abuse (for which patient has a history of) * After being given OxyIR (in conjunction with Librium) on 05/01, he seemed to have excessive narcotic euphoria. He did not have excessive somnolence or sedation, was not hypoxic or requiring additional supplemental oxygen with this. Resp Rate was 18 * I wanted to give Aerosolized Narcan but was told that I can not do that here as "no policy for this" * Given IVF and mentation has improved * Lengthy discussion had with patient's who claims he has been sober for 6 to 9 months. After discussion with patient when more A&O, he admits that he does drink "2-3 beers several times a week". He reports his last drink was 3 weeks ago. Given fear for acute alcohol withdrawal/DTs, was placed back on Librium (but a lower dose) with continued CIWA monitoring. He is tolerating this without oversedation and his CIWA score has been 0 * Will not use opiates for pain given excessive narcotic euphoria he experienced. Pain seem adequately controlled at this time * continue Thiamine with plan for continuation x30 days (3) Anemia: * normocytic/normochromic * presenting Hgb 10.1 to 8.1 (likely postop/and dilutional comonent) EBL 25 * was c/o SOB with worsening KELLEY. He believed it is related to his COPD and low oxygen levels but his pulse ox has remained in the mid to high 90s on 2 L (again on 4 L chronically) * I suspect his shortness of breath may be related to his anemia * Given his symptoms and postoperative state, ideally would have a hemoglobin of 9 for adequate wound healing * Transfused 1U PRBCs . hgb stable at 9.6 today (baseline 9-10) * iron level normal at 215 but continue [id number] days for adequate byproduct needed for body to make blood * Suspect anemia multifactorialblood loss from surgery and could have dilutional component * recommend FU CBC on Sunday and addition trending labs-- all at discretion of House Physician (4) Hypokalemia: * supplement (5) COPD, severe: As per HPI, on chronic O2 3-4L * Continue home inhalers * Nebs as needed * following CO2 with sedatives- VBG and/or EtCO2 monitoring * BiPAP with back up rate if over sedation * D/W patient, nurse and that we also need to avoid excessive O2 supplementation given risk for acute on chronic hypercapnia (would maintain pulse ox of 90-92%) (6) Alcohol abuse: * Patient does have a history of alcohol abuse * As outlined above, denotes no alcohol for approximately 6 to 9 months but patient reports he does drink "occasionally" * Given risk for acute alcohol withdrawal/DTs, was placed back on Librium (lower dose) with CIWA monitoring * CIWA score 0 and tolerating Librium without over sedation (a risk for CRYSTALIZER TENDER depression in the setting of severe COPD) * would advise continued taper over the next month (as outlined) * continue MVI, folate, and MVI x30 days (7) Essential hypertension: * Continue metoprolol and lasix * BP well-controlled on current regimen (8) Inguinal hernia bilateral, non-recurrent: * Very large, seems to be on the left * awaiting surgical clearance and correction * Does not appear to be incarcerated/strangulated (9) SIADH (syndrome of inappropriate ADH production): * stable at this time (139) * He is on a fluid restricted diet, oral sodium tablets and Lasix every other day will D/W Dr. Taveras. Further orders as warranted updated Total Time Total Time Spent Total Time Spent (In Minutes): 45 min including time spent with patient, D/W , D/W case mgmt and attending provider in addition to preparation of documentation Discharge Plan Discharge Items Patient Disposition: Transfer Inpatient Rehab Fac Reason For Visit: ANKLE DISLOCATION Discharge Diagnosis: 1. Trimalleolar fracture s/p ORIF 2. Postoperative anemias/p transfusion 3. Questionable alcohol abuseNo evidence of acute withdrawal Activity: As commented below Activity Comment: Nonweightbearing to right lower extremity Weightbearing: Right non-weightbearing Weightbearing Comment: with walker or crutches Non-emergency contact: Surgeon Call non-emergency contact if: your pain is not controlled, your temperature is above 101.5, your wound has increased redness and your wound has increased drainage Follow-up/Referrals: Russell Dang DO [Primary Care Provider] - Enrique Paulino DO [Surgeon] - (FOLLOW UP IN 10-14 DAYS FROM THE DAY OF SURGERY FOR A WOUND CHECK. ) Diet: Regular Fluids: 1500ml (6 cups) Addtl Attending Provider Instructions: - Patient to remain nonweightbearing to right lower extremity until cleared by orthopedics - Patient is to follow-up with orthopedics within 10 to 14 days from surgery (surgery on 04/30). See number as outlined below - Patient did have some postoperative anemia which was presumed multifactorialpostop and dilutional. He required a blood transfusion of 1 unit - On the day of discharge, hemoglobin is 9.6 (with a baseline of 10.1) - Would advise follow-up CBC on Sunday and further labs to trend at discretion of house provider - Lauro has been started on iron supplementation which is advised for 30 days - There was some underlying question of active alcohol abuse. Patient reports a history of this. He did not demonstrate evidence of active withdrawal but has empirically been placed on Librium. Would recommend continued taper - He did experience significant narcotic euphoria during this hospitalization (when given OxyIR for pain). - He is currently receiving Ultram for pain - Patient does have chronic/severe COPD for which he wears 4-6L of oxygen at all times - Encouraged monitoring of this and down titration of his supplemental oxygen to avoid acute on chronic hypercapnia (for which she has a history of). 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 USE WALKER OR CRUTCHES FOR AMBULATION. SPECIAL CARE INSTRUCTIONS: * Some drainage onto the dressing is normal and is no cause for alarm. * Some swelling is natural especially after walking. When resting, keep your foot elevated above the level of your heart. * Call the doctor's office at if you notice increased drainage, fever over 101 degrees F. or severe constant pain. BANDAGE: * Leave bandage/cast in place unless otherwise directed. * Keep bandage/cast dry at all times. . FOLLOW UP VISIT: If appointment is not already scheduled: Please call [facility] to make a follow-up appointment for 10-14 days after your surgery at . Pending Studies at Discharge: No Stand-Alone Forms: My [facility] Skilled Items Patient informed of condition?: Yes DNR: No Discharge Level of Care: Acute rehab Communicable Disease: No Discharge Prognosis: Stable Lines: None Urinary Catheter: No Medications and DC Order Prescriptions: New tramadol 50 mg Tablet 100 mg PO Q4H PRN (Reason: pain) Qty: 36 RF: 0 docusate sodium 100 mg Capsule 100 mg PO BID Qty: 60 RF: 0 chlordiazepoxide HCl 10 mg Capsule 10 mg PO DIRECTED Qty: 36 RF: 0 ferrous sulfate 325 mg (65 mg iron) tablet,delayed release (DR/EC) 325 mg PO BID Qty: 60 RF: 0 polyethylene glycol 3350 [Miralax] 17 gram powder in packet 17 g PO DAILY PRN (Reason: constipation) Qty: 30 RF: 0 thiamine HCl (vitamin B1) 100 mg Tablet 100 mg PO QAM Qty: 30 RF: 0 folic acid 1 mg Tablet 1 mg PO QAM Qty: 30 RF: 0 multivitamin with folic acid [Daily-[place] (with folic acid)] 400 mcg Tablet 1 tab PO QAM Qty: 30 RF: 0 Continued sumatriptan succinate 50 mg tablet 50 mg PO Q2H MDD 4 tablets/24hrs PRN (Reason: migraine headache) Qty: 9 RF: 5 albuterol sulfate 90 mcg/actuation HFA aerosol inhaler 1 - 2 puff INHALATION Q4H PRN (Reason: Shortness Of Breath) Qty: 54 RF: 1 sodium chloride 1 gram tablet 1 g PO BID Qty: 180 RF: 3 atorvastatin 40 mg tablet 40 mg PO DAILY Qty: 90 RF: 5 venlafaxine 150 mg capsule,extended release 24hr 150 mg PO QAM 90 Days Qty: 90 RF: 1 metoprolol succinate 50 mg tablet extended release 24 hr See Rx Instructions .ROUTE .COMPLEX Qty: 30 RF: 11 pregabalin 100 mg capsule 100 mg PO BID Qty: 60 RF: 0 furosemide [Lasix] 20 mg tablet 20 mg PO Q OTHER DAY Qty: 15 RF: 5 magnesium oxide 400 mg (241.3 mg magnesium) tablet 400 mg PO DAILY Qty: 30 RF: 3 (DME) nebulizer accessories Kit See Rx Instructions .ROUTE .MEDSUPPLY Qty: 1 RF: 0 ipratropium-albuterol 0.5 mg-3 mg(2.5 mg base)/3 mL solution for nebulization 3 ml INH Q4H PRN (Reason: shortness of breath or wheezing) Qty: 540 RF: 5 Arnuity Ellipta 100 mcg/actuation blister with device 1 inh inhalation DAILY Qty: 30 RF: 3 Incruse Ellipta 62.5 mcg/actuation blister with device 1 inh inhalation DAILY Qty: 30 RF: 3 fluticasone propion-salmeterol [Advair Diskus] 500-50 mcg/dose blister with device 1 inh inhalation BID Qty: 60 RF: 0 BiPap Machine Misc See Rx Instructions .ROUTE .COMPLEX Qty: 1 RF: 0 Mariola-Sequels (iron-vit c) 200 mg (65 mg iron)-25 mg tablet extended release 1 tab PO DAILY Qty: 30 RF: 1 Probiotic Colon Support 1.5 billion cell Capsule 1 cap PO QAM RF: 0 cyanocobalamin (vitamin B-12) [Vitamin B-12] 1,000 mcg Tablet 1,000 mcg PO DAILY RF: 0 Discontinued folic acid 400 mcg tablet 0.4 mg PO QAM RF: 0 vitamin B complex-folic acid 2,000 mcg capsule 1 cap PO DAILY RF: 0 Shingrix (PF) 50 mcg/0.5 mL suspension for reconstitution 0.5 ml IM .COMPLEX Qty: 1 RF: 1 Discharge Orders: Discharge Order (Routine); Ordered 05/03/21 Ordered By: Stella Mccain Admission Data Admit Date/Time: 04/29/21 19:47 Attending Provider: Jakob Taveras Admit Provider: Lisette Lira Primary Care Provider: Russell Dang Other Providers: Enrique Paulino ; Rey Paz ; [facility] Other Interventions: Discharge Summary Assessment (RN) Last Done: 05/03/21 14:14 Supervising Physician Co-Signing Physician Notes Patient seen and examined, chart reviewed, case discussed with Faustina Mccain PA-C and I agree with the assessment and plan as above except as otherwise noted General: A&Ox3. NAD. Cooperative. HEENT: Atraumatic, normocephalic. Vision/hearing grossly intact. Pulm: CTAB A&P. -wheezes, -rales, -rhonchi. Symmetrical chest rise. No increase in work of breathing. No respiratory distress. Cardiac: RRR, +SM -rg. Radial pulses intact and symmetrical. Abdominal: Nontender, nondistended, soft. BS present. Extremities: Right lower extremity in splint, sensation and hallux intact bilaterally to soft touch, cap refill intact and brisk in hallux bilaterally Labs and images reviewed 70-year-old male with closed trimalleolar fracture while sliding out of lift chair. Status post ORIF with Dr. Paulino. Will have outpatient follow-up with surgery in approximately 2 weeks, discharged to inpatient rehab. Nonweightbearing to right extremity. Patient with postop anemia from when he of transfusion, no ongoing blood loss, follow-up CBC as outpatient. Avoid narcotics given altered mental status experience with narcotics during admission. Agree with plan as above. Coding Level of Care Code D/C DAY MANAGEMENT >30 MINS Diagnoses Trimalleolar fracture S82.853A Fracture type: closed Laterality: right AMS (altered mental status) R41.82 Anemia D64.9 Hypokalemia E87.6 COPD, severe J44.9 Alcohol abuse F10.10 Essential hypertension I10 Inguinal hernia bilateral, non-recurrent K40.20 SIADH (syndrome of inappropriate ADH production) E22.2
[2021-05-03] MEDS ORDERED: chlordiazePOXIDE HCl 5 MG CAP PO SCH (16:00)
== END 2021-05-03 13:30 | DRG 493 ==
LOC: ED 16:24 → SUATTDRO 19:47 → EDINP 19:47 → 2S 22:56

== ENCOUNTER 2021-06-17 11:38 | Inpatient (IN) ==
[2021-06-17] MEDS ORDERED: ALBUT/IPRATROP 3MG/0.5MG NEB 3 ML VIAL NEB ONE ×2 (12:38→14:41)
[2021-06-17] MEDS ORDERED: methylPREDNISolone 125 MG/2 ML VIAL IV STA (12:38)
[2021-06-17] MEDS ORDERED: guaiFENesin 600 MG TABCR PO STA (12:38)
[2021-06-17] MEDS ORDERED: SODIUM CHLORIDE 0.9% 500 ML IV ONE (12:45)
--- NOTE | 2021-06-17 12:49 | XRay Report ---
XR chest 1V portable CLINICAL HISTORY: Atypical chest pain TECHNIQUE: Single frontal radiograph of the chest was obtained. Comparison: Comparison is made to chest one view 04/29/2021 FINDINGS: No lines and tubes are seen. The aorta is tortuous. The remainder of the cardiomediastinal silhouette is unremarkable. The lungs are clear. No evidence of pleural effusion or pneumothorax. IMPRESSION: No acute chest disease. ACT 112: Negative or not required by law. Electronically signed by: Sha Macias M.D. 06/17/2021 12:47 PM
[2021-06-17 13:02] LABS: Basophils # (auto) 0.02 K/uL (0-0.2); Basophils % (auto) 0.2 %; Eosinophils # (auto) 1.37 K/uL (0-0.5); Eosinophils % (auto) 14.7 %; Hematocrit (blood only) 39.3 % (42-52); Immature Granulocytes # (auto) 0.01 K/uL (0.00-0.02); Immature Granulocytes % (auto) 0.1 %; Lymphocytes # (auto) 1.08 K/uL (1.2-3.4); Lymphocytes % (auto) 11.6 %; Mean Corpuscular Hemoglobin 29.1 pg (25-34); Mean Corpuscular Hgb Conc 30.5 g/dL (32-36); Mean Corpuscular Volume 95.4 fL (80-100); Monocytes # (auto) 0.67 K/uL (0.11-0.59); Monocytes % (auto) 7.2 %; Neutrophils # (auto) 6.17 K/uL (1.4-6.5); Neutrophils % (auto) 66.2 %; Platelet Count 230 K/uL (130-400); RDW Coefficient of Variation 15.2 % (11.5-14.5); Red Blood Count 4.12 M/uL (4.7-6.1); White Blood Count 9.32 K/uL (4.8-10.8)
[2021-06-17 13:20] LABS: Prothrombin Time 10.8 Seconds (9.0-12.0)
[2021-06-17 13:25] LABS: Troponin I < 0.03 ng/ml (0-0.04)
[2021-06-17 13:36] LABS: Alanine Aminotransferase 13 U/L (7-52); Albumin Globulin Ratio 1.3 (0.9-2); Albumin Level 3.9 gm/dl (3.4-5.0); Alkaline Phosphatase 97 U/L (34-104); Anion Gap 5 (3-11); Aspartate Aminotransferase 17 U/L (13-39); BUN Creatinine Ratio 21.3 (10-20); Bilirubin,Total 0.4 mg/dl (0.2-1.0); Blood Urea Nitrogen 13 mg/dl (6-23); Calcium 9.7 mg/dl (8.5-10.1); Carbon Dioxide 39 mmol/L (21-32); Chloride 97 mmol/L (98-107); Creatinine Clr Calc Pharmacy 123.7 ml/min; Est GFR (African American) 118.9 ml/min; Est GFR (Non-African American) 102.6 ml/min; Globulin 3.1 gm/dl (2.5-4.0); Glucose 99 mg/dl (70-99(Fasting)); Lipase 23 U/L (11-82); Magnesium 1.9 mg/dl (1.7-2.4); Phosphorus 2.8 mg/dl (2.5-4.9); Potassium 4.2 mmol/L (3.5-5.1); Sodium 141 mmol/L (136-145)
[2021-06-17 15:04] LABS: Base Excess VBG 10.7 mEq/L; HCO3 VBG 40 mmol/L; PCO2 VBG 80 mmHg (38-50); PO2 VBG 27 mmHg; pH VBG 7.32 (7.36-7.41)
[2021-06-17 15:08] LABS: Oxygen Saturation VBG < 60.0 %
--- NOTE | 2021-06-17 15:37 | Emergency Department Note ---
Impression & Plan Acute on chronic respiratory failure with hypoxia and hypercapnia, COPD exacerbation, AMS (altered mental status) ED Provider Note NAME: DENAE LAL AGE: 70 SEX: M ARRIVES VIA: Ambulance INFORMANT: Patient ED PROVIDER(S): Khalif Ha MD CHIEF COMPLAINT: SOB, confusion. PLAN: Disposition: Admit MEDICAL DECISION MAKING: The patient is a pleasant 70-year-old gentleman with a past medical history of chronic respiratory failure secondary to COPD, PAUL, noncompliant with CPAP, history of etoh dependence s/p detox last month who presents to the emergency department via EMS after was concerned for acute confusion this morning in the setting of report of a year or more of confusion as well as shortness of breath that was much worse today in the setting of having worsening shortness of breath from his baseline after being intubated in March 2021 for respiratory failure. The patient is on 4 L nasal cannula at baseline but the reports that he has been increasing this on his own when he feels short of breath. Denies any fevers, nausea, vomiting, diarrhea or urinary symptoms. Patient has been having thick yellow sputum production. He denies drinking alcohol. On arrival the patient is acute on chronic ill-appearing but no acute distress, afebrile with HR 100s and otherwise stable vital signs. He does appear mildly dyspneic without significant increased work of breathing. Breath sounds are diminished throughout with underlying expiratory wheeze. He is noted to expectorate thick yellow sputum. He is AOx4. No focal neurologic deficits. EKG without overt acute ischemia. Chest x-ray negative for acute cardiopulmonary process. Lab work was unremarkable. WBC and platelets within normal limits. H/H 12/9.3 improved from prior. Chemistry without metabolic acidosis. Bicarbonate is 39 consistent with history of chronic CO2 retention. VBG with pH of 7.32 and PCO2 of 80 which is within prior range of values. Troponin negative/undetectable. BNP is within normal limits. Lipase not elevated. Procalcitonin is undetectable. Patient did report improvement after continuous DuoNeb, steroids, guaifenesin. However, he and his did report that his breathing is much worse than it has been. They did request and prefer that he be admitted for further treatment. Additional, continuous duoneb ordered. Case was d/w Dr. Dang, [facility] hospital[place] who will evaluate the patient for admission. Triage Nursing notes reviewed and agree them. Prior medical records reviewed Vital Signs: reviewed and remarkable for no significant abnormalities Differential diagnosis: Reactive airway disease, pneumonia, pneumothorax, COPD, CHF, infections, cardiac ischemia, pulmonary embolism, musculoskeletal, gastrointestinal, as well as other pathologies. ER treatment provided: See below. Diagnostics interpreted by me: ECG: Sinus tachycardia, 105 bpm, no ectopy, ST abnormality, no overt ST elevation. QTc 409, QRS 56. Cardiac Monitoring: An order for continuous cardiac monitoring was placed and demonstrated Sinus tachycardia, 105 bpm, no ectopy. Laboratory studies: See below Imaging studies: See below Consultation(s): Case was d/w Dr. Dang, [facility] hospitalist who will evaluate the patient for admission. HPI: The patient is a pleasant 70-year-old gentleman with a past medical history of chronic respiratory failure secondary to COPD, PAUL, noncompliant with CPAP, history of etoh dependence s/p detox last month who presents to the emergency department via EMS after was concerned for acute confusion this morning in the setting of report of a year or more of confusion as well as shortness of breath that was much worse today in the setting of having worsening shortness of breath from his baseline after being intubated in March 2021 for respiratory failure. The patient is on 4 L nasal cannula at baseline but the reports that he has been increasing this on his own when he feels short of breath. Den ies any fevers, nausea, vomiting, diarrhea or urinary symptoms. Patient has been having thick yellow sputum production. He denies drinking alcohol. ROS: See above HPI for pertinent positives & negatives. A total of 10 systems reviewed and were otherwise negative. VITALS:See Below PHYSICAL EXAMINATION: GENERAL: Awake, alert, acute on chronically ill-appearing, in no distress HENT: Normocephalic, atraumatic. Oropharynx with dry mucous membranes and otherwise unremarkable. EYES: Normal conjunctiva. Sclera non-icteric. EOMI. No nystamgus. PEARRL. NECK: Supple. No nuchal rigidity. FROM. No JVD. RESPIRATORY: Diminished breath sounds of bilateral lung wong with underlying expiratory wheeze. Mildly dyspneic without significant increased work of breathing. CARDIAC: Regular rate, normal rhythm. Extremities warm and well perfused. Pulses equal. ABDOMEN: Soft, non-distended. No tenderness to palpation. No rebound or guarding. No masses. RECTAL: Deferred. MUSCULOSKELETAL: Chest examination reveals no tenderness. The back is symmetrical on inspection without obvious abnormality. There is no CVA tender ness to palpation. No joint edema. LOWER EXTREMITIES: Calves are equal size bilaterally and non-tender. No edema. No discoloration. NEURO: No focal sensory or motor deficits noted. AOx4. 5/5 strength and SILT x 4 extremities. Cerebellar function intact including [id number], alternating palms, [id number]-pays. SKIN: No rash or jaundice noted. ED COURSE: Critical Care: I have personally spent greater than 35 minutes of critical care time in the direct management of this patient. This includes bedside care, interpretation of diagnostic studies, and testing, discussion with consultants, patient, and family members, and other required patient management activities. This 35 minutes is in excess of all separately billable procedures. Khalif Ha MD Past Med/Surg History Medical History Acute hyponatremia Alcohol abuse Alcohol withdrawal Bacteremia Cellulitis Colitis COPD (chronic obstructive pulmonary disease) COPD exacerbation Delirium tremens DVT prophylaxis Face lacerations Gout Hyperlipidemia Hypertension Hypokalemia Hypomagnesemia Hyponatremia Hypoxemia Incarcerated left inguinal hernia Infection of spine DX 5 YEARS AGO (TREATED AT [facility]) Klebsiella pneumoniae infection Low back pain Metabolic encephalopathy Migraine Neuropathy On home oxygen therapy 3L CONT. Orthostasis Osteoarthritis Respiratory failure Right hand fracture Right inguinal hernia Seizure Seizure LAST EPISODE LAST MONTH (HOSPITALIZED AT [facility]) ? ETIOLOGY FOLLOWED BY DR. HIGHTOWER Sepsis associated hypotension Tachycardia Tremor BILAT HANDS AND A LITTLE IN BILAT. FEET UTI (urinary tract infection) Surgical History H/O tooth extraction Lower teeth on 04/23/2018 H/O tooth extraction History of colonoscopy History of open reduction and internal fixation (ORIF) procedure FEMUR ?SIDE S/P foot surgery RT/LEFT (HARDWARE INTACT) Family History Father Hypertension Aneurysm Mother Swelling Uncle Myocardial infarction Other No significant family history Denies family history of Ovarian cancer Prostate cancer Breast cancer Colorectal cancer Social History Smoking Status: Former smoker Tobacco Type: Cigarettes Age Started Using Tobacco: 14; Age Quit Using Tobacco: 68; packs per day: 1; Cigarettes Per Day: 10; Second Hand Exposure: No; Do You Dip or Chew Tobacco: No; Tobacco Cessation Education Requested by Patient: No Hx Alcohol Use: Yes Alcohol type: beer Alcohol Intake Frequency Comment: 8+ per day Hx Substance Use: No Preferred Language: Lithuanian Communication Ability: Effective Visual Impairment: Limited Hearing Ability: Normal Sec Reporting Consultant Required: No Beliefs That Will Affect Care: None marital status: Current Living Situation: Spouse Current Living Situation Comment: unknown intubated and sedated current occupational status: retired Other Information That Helps Us Care for You: No Feels Safe at Home: Yes Safety Concerns: Feels Safe At This Time Childhood Exposure to Second-Hand Smoke: Yes Dental Care, Regularly: No Physical Activity Frequency: Does not Exercise Seatbelt Use: always Sunscreen Use: No Assistive Devices: Cane, Denture - Upper, Denture - Lower, Oxygen - Continuous and Walker Allergies Allergies Allergy/AdvReac Type Severity Reaction Status Date / Time No Known Allergies Allergy Verified 06/17/21 14:03 Home Meds Home Medications Medication Instructions Recorded Confirmed Lactobacills gasseri-Bifidobac 1 cap PO QAM 02/25/19 06/17/21 bifidum,longum 1.5 billion cell capsule (Probiotic Colon Support) cyanocobalamin (vitamin B-12) 1,000 mcg PO HS 03/08/21 06/17/21 1,000 mcg tablet (Vitamin B-12) atorvastatin 40 mg tablet 40 mg PO QAM 06/17/21 06/17/21 magnesium oxide 400 mg (241.3 mg 400 mg PO QAM 06/17/21 06/17/21 magnesium) tablet umeclidinium 62.5 mcg/actuation 1 inh INHALATION QAM 06/17/21 06/17/21 blister powder for inhalation (Incruse Ellipta) Previous Rx's Medication Instructions Recorded sodium chloride 1 gram tablet 1 g PO BID #180 tab 09/06/20 ipratropium 0.5 mg-albuterol 3 mg 3 ml INH Q4H PRN #540 ml 12/22/20 (2.5 mg base)/3 mL nebulization soln nebulizer accessories #1 ea 12/22/20 BiPap Machine See Rx Instructions .ROUTE 10/05/21 .COMPLEX #1 ea venlafaxine 150 mg 150 mg PO QAM 90 Days #90 cap 01/07/21 capsule,extended release 24 hr metoprolol succinate 50 mg See Rx Instructions .ROUTE 03/22/21 tablet,extended release 24 hr .COMPLEX #30 tab furosemide 20 mg tablet (Lasix) 20 mg PO Q OTHER DAY #15 tab 04/26/21 docusate sodium 100 mg capsule 100 mg PO BID #60 cap 05/03/21 ferrous sulfate 325 mg (65 mg 325 mg PO BID #60 tab 05/03/21 iron) tablet,delayed release folic acid 1 mg tablet 1 mg PO QAM #30 tab 05/03/21 multivitamin with folic acid 400 1 tab PO QAM #30 tab 05/03/21 mcg tablet (Daily-Hosuton (with folic acid)) polyethylene glycol 3350 17 gram 17 g PO DAILY PRN #30 ea 05/03/21 oral powder packet (Miralax) thiamine HCl (vitamin B1) 100 mg 100 mg PO QAM #30 tab 05/03/21 tablet tramadol 50 mg tablet 100 mg PO Q4H PRN #36 tab 05/03/21 pregabalin 100 mg capsule 100 mg PO BID #60 cap 05/30/21 albuterol sulfate 90 mcg/actuation 1 - 2 puff INHALATION Q4H PRN #54 05/31/21 aerosol inhaler gm fluticasone 500 mcg-salmeterol 50 1 inh INHALATION BID #60 ea 05/31/21 mcg/dose blistr powdr for inhalation (Advair Diskus) sumatriptan succinate 50 mg tablet 50 mg PO Q2H PRN #9 tab MDD 4 06/17/21 tablets/24hrs Results & Data (ED) Vital Signs Vital Signs - 24 hr 06/17/21 11:53 06/17/21 12:24 06/17/21 13:32 Temperature 37.0 C Temperature Source Oral Pulse Rate 103 H Pulse Rate [Apical] 99 H Respiratory Rate 20 17 Respiratory Effort / Characteristics Labored SOB on Exertion Non-Labored Blood Pressure 133/90 Blood Pressure [Left Arm] 113/79 Blood Pressure Mean 104 Blood Pressure Mean [Left Arm] 90 Pulse Oximetry 87 L 96 92 Oxygen Delivery Method Room Air Nasal Cannula Nasal Cannula Room Air Oxygen Flow Rate 0 4 Sepsis Recent Fever Within 48 Hours No Sepsis New/Unexplained Change in Mental Status N/A Sepsis Action Taken by Nursing No Action Required Oxygen Flow Rate - Titration 4 Pulse Oximetry Post Tiitration 95 06/17/21 14:25 Temperature Temperature Source Pulse Rate Pulse Rate [Apical] 91 H Respiratory Rate 16 Respiratory Effort / Characteristics Non-Labored Blood Pressure Blood Pressure [Left Arm] 158/98 H Blood Pressure Mean Blood Pressure Mean [Left Arm] 118 Pulse Oximetry 97 Oxygen Delivery Method Nasal Cannula Oxygen Flow Rate 4 Sepsis Recent Fever Within 48 Hours Sepsis New/Unexplained Change in Mental Status Sepsis Action Taken by Nursing Oxygen Flow Rate - Titration Pulse Oximetry Post Tiitration Laboratory Data Attestation: I reviewed the patient's lab results. Result diagrams: 06/17/21 12:38 06/17/21 12:38 Lab Results 06/17/21 06/17/21 06/17/21 Range/Units 12:38 12:38 12:38 WBC 9.32 (4.8-10.8) K/uL RBC 4.12 L (4.7-6.1) M/uL Hgb 12.0 L (14.0-18.0) g/dL Hct 39.3 L (42-52) % MCV 95.4 (80-100) fL MCH 29.1 (25-34) pg MCHC 30.5 L (32-36) g/dL RDW Std Deviation 53.0 H (36.4-46.3) fL RDW Coeff of Jem 15.2 H (11.5-14.5) % Plt Count 230 (130-400) K/uL MPV 10.0 (7.4-10.4) fL Immature Gran % (Auto) 0.1 % Neut % (Auto) 66.2 % Lymph % (Auto) 11.6 % [place] % (Auto) 7.2 % Eos % (Auto) 14.7 % Baso % (Auto) 0.2 % Neut # (Auto) 6.17 (1.4-6.5) K/uL Lymph # (Auto) 1.08 L (1.2-3.4) K/uL [place] # (Auto) 0.67 H (0.11-0.59) K/uL Eos # (Auto) 1.37 H (0-0.5) K/uL Baso # (Auto) 0.02 (0-0.2) K/uL Immature Gran # (Auto) 0.01 (0.00-0.02) K/uL PT (9.0-12.0) Seconds INR (0.9-1.1) VBG pH (7.36-7.41) VBG pCO2 (38-50) mmHg VBG pO2 mmHg VBG HCO3 mmol/L VBG O2 Saturation % VBG Base Excess mEq/L Barometric Pressure mm/Hg Sodium 141 (136-145) mmol/L Potassium 4.2 (3.5-5.1) mmol/L Chloride 97 L (98-107) mmol/L Carbon Dioxide 39 H (21-32) mmol/L Anion Gap 5 (3-11) BUN 13 (6-23) mg/dl Creatinine 0.61 (0.6-1.4) mg/dl Est Cr Clr Drug Dosing 123.7 ml/min Est GFR ( Amer) 118.9 ml/min Est GFR (Non-Af Amer) 102.6 ml/min BUN/Creatinine Ratio 21.3 H (10-20) Glucose 99 (70-99(Fasting)) mg/dl Calcium 9.7 (8.5-10.1) mg/dl Phosphorus 2.8 (2.5-4.9) mg/dl Magnesium 1.9 (1.7-2.4) mg/dl Total Bilirubin 0.4 (0.2-1.0) mg/dl AST 17 (13-39) U/L ALT 13 (7-52) U/L Alkaline Phosphatase 97 (34-104) U/L Troponin I < 0.03 (0-0.04) ng/ml B-Natriuretic Peptide 44 (0-100) pg/ml Total Protein 7.0 (6.0-8.3) gm/dl Albumin 3.9 (3.4-5.0) gm/dl Globulin 3.1 (2.5-4.0) gm/dl Albumin/Globulin Ratio 1.3 (0.9-2) Lipase 23 (11-82) U/L Procalcitonin (0-0.5) ng/ml 06/17/21 06/17/21 06/17/21 Range/Units 12:38 14:50 14:51 WBC (4.8-10.8) K/uL RBC (4.7-6.1) M/uL Hgb (14.0-18.0) g/dL Hct (42-52) % MCV (80-100) fL MCH (25-34) pg MCHC (32-36) g/dL RDW Std Deviation (36.4-46.3) fL RDW Coeff of Jem (11.5-14.5) % Plt Count (130-400) K/uL MPV (7.4-10.4) fL Immature Gran % (Auto) % Neut % (Auto) % Lymph % (Auto) % [place] % (Auto) % Eos % (Auto) % Baso % (Auto) % Neut # (Auto) (1.4-6.5) K/uL Lymph # (Auto) (1.2-3.4) K/uL [place] # (Auto) (0.11-0.59) K/uL Eos # (Auto) (0-0.5) K/uL Baso # (Auto) (0-0.2) K/uL Immature Gran # (Auto) (0.00-0.02) K/uL PT 10.8 (9.0-12.0) Seconds INR 1.0 (0.9-1.1) VBG pH 7.32 L (7.36-7.41) VBG pCO2 80 H (38-50) mmHg VBG pO2 27 mmHg VBG HCO3 40 mmol/L VBG O2 Saturation < 60.0 % VBG Base Excess 10.7 mEq/L Barometric Pressure 730.4 mm/Hg Sodium (136-145) mmol/L Potassium (3.5-5.1) mmol/L Chloride (98-107) mmol/L Carbon Dioxide (21-32) mmol/L Anion Gap (3-11) BUN (6-23) mg/dl Creatinine (0.6-1.4) mg/dl Est Cr Clr Drug Dosing ml/min Est GFR ( Amer) ml/min Est GFR (Non-Af Amer) ml/min BUN/Creatinine Ratio (10-20) Glucose (70-99(Fasting)) mg/dl Calcium (8.5-10.1) mg/dl Phosphorus (2.5-4.9) mg/dl Magnesium (1.7-2.4) mg/dl Total Bilirubin (0.2-1.0) mg/dl AST (13-39) U/L ALT (7-52) U/L Alkaline Phosphatase (34-104) U/L Troponin I (0-0.04) ng/ml B-Natriuretic Peptide (0-100) pg/ml Total Protein (6.0-8.3) gm/dl Albumin (3.4-5.0) gm/dl Globulin (2.5-4.0) gm/dl Albumin/Globulin Ratio (0.9-2) Lipase (11-82) U/L Procalcitonin < 0.05 (0-0.5) ng/ml Administered Medications Albuterol (Albut/Ipratrop 3mg/0.5mg Neb 3 Ml Vial) 3 ml INH Q4R DEBBY; Protocol Stop: 07/17/21 20:01 Last Admin: 06/17/21 21:03 Dose: 3 ml Documented by: [id number] Azithromycin (Azithromycin 250 Mg Tab) 250 mg PO HS [facility] Stop: 06/24/21 20:59 Last Admin: 06/17/21 21:32 Dose: 250 mg Documented by: [id number] Cyanocobalamin (Cyanocobalamin (B-12) 500 Mcg Tablet) 1,000 mcg PO HS [facility] Stop: 07/17/21 20:59 Last Admin: 06/17/21 21:33 Dose: 1,000 mcg Documented by: [id number] Docusate Sodium (Docusate Sodium 100 Mg Cap) 100 mg PO BID [facility] Stop: 07/17/21 20:59 Last Admin: 06/17/21 21:33 Dose: 100 mg Documented by: [id number] Guaifenesin (Guaifenesin 600 Mg Tabcr) 600 mg PO Q12 DEBBY Stop: 07/17/21 20:59 Last Admin: 06/17/21 21:33 Dose: 600 mg Documented by: [id number] Pregabalin (Pregabalin 100 Mg Cap) 100 mg PO BID [facility] Stop: 07/17/21 20:59 Last Admin: 06/17/21 21:35 Dose: 100 mg Documented by: [id number] Sodium Chloride (Sodium Chloride 1 Gm Tablet) 1 gm PO BID [facility]BBY Stop: 07/17/21 20:59 Last Admin: 06/17/21 21:34 Dose: 1 gm Documented by: [id number] Discontinued Medications Albuterol (Albut/Ipratrop 3mg/0.5mg Neb 3 Ml Vial) 12 ml NEB ONE ONE; Protocol Stop: 06/17/21 12:39 Last Admin: 06/17/21 12:52 Dose: 12 ml Documented by: [id number] Albuterol (Albut/Ipratrop 3mg/0.5mg Neb 3 Ml Vial) 12 ml NEB ONE ONE; Protocol Stop: 06/17/21 14:42 Last Admin: 06/17/21 15:15 Dose: 12 ml Documented by: [id number] Guaifenesin (Guaifenesin 600 Mg Tabcr) 600 mg PO NOW STA Stop: 06/17/21 12:39 Last Admin: 06/17/21 12:52 Dose: 600 mg Documented by: [id number] Sodium Chloride (Nss) 500 mls @ 999 mls/hr IV .Q31M ONE Stop: 06/17/21 13:15 Last Infusion: 06/17/21 13:31 Dose: 0 mls/hr Documented by: [id number] Admin: 06/17/21 12:52 Dose: 999 mls/hr Documented by: [id number] Methylprednisolone (Methylprednisolone 125 Mg/2 Ml Vial) 125 mg IV NOW STA Stop: 06/17/21 12:39 Last Admin: 06/17/21 12:52 Dose: 125 mg Documented by: [id number] Imaging Data Radiologist's Impression: Chest X-Ray 06/17/21 12:20 XR chest 1V portable CLINICAL HISTORY: Atypical chest pain TECHNIQUE: Single frontal radiograph of the chest was obtained. Comparison: Comparison is made to chest one view 04/29/2021 FINDINGS: No lines and tubes are seen. The aorta is tortuous. The remainder of the cardiomediastinal silhouette is unremarkable. The lungs are clear. No evidence of pleural effusion or pneumothorax. IMPRESSION: No acute chest disease. ACT 112: Negative or not required by law. Electronically signed by: Sha Macias M.D. 06/17/2021 12:47 PM Discharge Plan Visit Data Chief Complaint: Shortness of Breath/Dyspnea ED Provider: Khalif Ha Discharge Problem: Acute on chronic respiratory failure with hypoxia and hypercapnia, COPD exacerbation, AMS (altered mental status) Patient Disposition: Admitted As Inpatient Discharge Instructions Interventions: ED Discharge Assessment Last Done: 06/17/21 18:19 Discharge Problem: AMS (altered mental status) Qualifiers: Altered mental status type: transient alteration of awareness Qualified Code(s): R40.4 - Transient alteration of awareness
[2021-06-17] MEDS ORDERED: ONDANSETRON INJ 2 MG/ML 2 ML VIAL IV PRN (20:02)
[2021-06-17] MEDS ORDERED: POLYETHYLENE (MIRALAX) 17 GM PACK PO PRN (20:02)
--- NOTE | 2021-06-17 20:45 | History & Physical Report ---
Date of Service June 17, 2021 Assessment & Plan (1) COPD exacerbation: Plan: Exacerbation of severe baseline COPD. Was recommended to use AVAPS machine by Dr. Dominguez in 12/2020. Not using per patient due to fit issues. Per , he constantly tries to turn up his home O2 for his shortness of breath. -> At this time, does meet Gold criteria for COPD exacerbation: increased shortness of breath and increased cough and sputum production. - Continue home maintenance inhalers - Prednisone 40 mg PO daily - Sara standing and PRN - Azithromycin 250 mg PO daily; could consider M-W-F dosing after 5-day course to reduce chances of exacerbation (2) Acute on chronic respiratory failure with hypoxia and hypercapnia: Plan: Due to COPD. - As above (3) AMS (altered mental status): Plan: Possibly hypoxemia and hypercapnia related. Now back at baseline. - Nocturnal O2 measurement - ABG in the AM to document hypercapnia -> May be able to convince him to use his AVAPS if clearly showing it would help him feel better. (4) Trimalleolar fracture: Plan: Due to falling out of his seat. S/p ORIF with Dr. Paulino. - Still no weight-bearing on right leg. - Will see orthopedics in 1 week and could possibly start to bear weight at that time. (5) Essential hypertension: Plan: BP is 135/85. - Continue home beta-cristina (6) SIADH (syndrome of inappropriate ADH production): Plan: Suspect this diagnosis is fairly remote as prior urine osms are from 2019. On admission, Na was 141. - Given he appears euvolemic on exam and sodium is normal, continue NaCl (7) DVT prophylaxis: Plan: Lovenox 40 mg SQ daily Admission and Anticipated Discharge Date Admission Date: June 17, 2021 History of Present Illness Primary Care Provider: Russell Dang, DO 70yo M w/ hx of COPD, HTN, SIADH who presents with 1 month of worsening cough and shortness of breath. He was recently hospitalized for a trimalleolar fracture which was repaired with ORIF by Dr. Paulino. He went to [facility] for several weeks and was discharged there on 05/20/2021. Per his , he has been worsening since that time. He reports increasing cough with shortness of breath. He has increased sputum production. He is unsure of worsening sputum purulence as he swallows it when not in the hospital. His reports an episode of confusion this morning. She reports he was talking to himself and not making sense. He also was singing to himself. He jokingly notes that he was acting like he was drunk, but that he has not had any alcoholic beverages in at least 3 weeks. Allergies Allergy/AdvReac Type Severity Reaction Status Date / Time No Known Allergies Allergy Verified 06/17/21 14:03 Home Medications Medication Instructions Recorded Confirmed Type Lactobacills gasseri-Bifidobac 1 cap PO QAM 02/25/19 06/17/21 History bifidum,longum 1.5 billion cell capsule (Probiotic Colon Support) sodium chloride 1 gram tablet 1 g PO BID #180 tab 09/06/20 06/17/21 Rx ipratropium 0.5 mg-albuterol 3 mg 3 ml INH Q4H PRN #540 ml 12/22/20 06/17/21 Rx (2.5 mg base)/3 mL nebulization soln nebulizer accessories #1 ea 12/22/20 05/24/21 Rx BiPap Machine See Rx Instructions .ROUTE 01/04/21 05/24/21 Rx .COMPLEX #1 ea venlafaxine 150 mg 150 mg PO QAM 90 Days #90 cap 01/07/21 06/17/21 Rx capsule,extended release 24 hr cyanocobalamin (vitamin B-12) 1,000 mcg PO HS 03/08/21 06/17/21 History 1,000 mcg tablet (Vitamin B-12) metoprolol succinate 50 mg See Rx Instructions .ROUTE 03/22/21 06/17/21 Rx tablet,extended release 24 hr .COMPLEX #30 tab furosemide 20 mg tablet (Lasix) 20 mg PO Q OTHER DAY #15 tab 04/26/21 06/17/21 Rx docusate sodium 100 mg capsule 100 mg PO BID #60 cap 05/03/21 06/17/21 Rx ferrous sulfate 325 mg (65 mg 325 mg PO BID #60 tab 05/03/21 06/17/21 Rx iron) tablet,delayed release folic acid 1 mg tablet 1 mg PO QAM #30 tab 05/03/21 06/17/21 Rx multivitamin with folic acid 400 1 tab PO QAM #30 tab 05/03/21 06/17/21 Rx mcg tablet (Daily-[place] (with folic acid)) polyethylene glycol 3350 17 gram 17 g PO DAILY PRN #30 ea 05/03/21 06/17/21 Rx oral powder packet (Miralax) thiamine HCl (vitamin B1) 100 mg 100 mg PO QAM #30 tab 05/03/21 06/17/21 Rx tablet tramadol 50 mg tablet 100 mg PO Q4H PRN #36 tab 05/03/21 06/17/21 Rx pregabalin 100 mg capsule 100 mg PO BID #60 cap 05/30/21 06/17/21 Rx albuterol sulfate 90 mcg/actuation 1 - 2 puff INHALATION Q4H PRN #54 05/31/21 06/17/21 Rx aerosol inhaler gm fluticasone 500 mcg-salmeterol 50 1 inh INHALATION BID #60 ea 05/31/21 06/17/21 Rx mcg/dose blistr powdr for inhalation (Advair Diskus) atorvastatin 40 mg tablet 40 mg PO QAM 06/17/21 06/17/21 History magnesium oxide 400 mg (241.3 mg 400 mg PO QAM 06/17/21 06/17/21 History magnesium) tablet sumatriptan succinate 50 mg tablet 50 mg PO Q2H PRN #9 tab MDD 4 06/17/21 06/17/21 Rx tablets/24hrs umeclidinium 62.5 mcg/actuation 1 inh INHALATION QAM 06/17/21 06/17/21 History blister powder for inhalation (Incruse Ellipta) Past Med/Surg History Medical History Acute hyponatremia Alcohol abuse Alcohol withdrawal Bacteremia Cellulitis Colitis COPD (chronic obstructive pulmonary disease) COPD exacerbation Delirium tremens DVT prophylaxis Face lacerations Gout Hyperlipidemia Hypertension Hypokalemia Hypomagnesemia Hyponatremia Hypoxemia Incarcerated left inguinal hernia Infection of spine DX 5 YEARS AGO (TREATED AT [facility]) Klebsiella pneumoniae infection Low back pain Metabolic encephalopathy Migraine Neuropathy On home oxygen therapy 3L CONT. Orthostasis Osteoarthritis Respiratory failure Right hand fracture Right inguinal hernia Seizure Seizure LAST EPISODE LAST MONTH (HOSPITALIZED AT [facility]) ? ETIOLOGY FOLLOWED BY DR. HIGHTOWER Sepsis associated hypotension Tachycardia Tremor BILAT HANDS AND A LITTLE IN BILAT. FEET UTI (urinary tract infection) Surgical History H/O tooth extraction Lower teeth on 04/23/2018 H/O tooth extraction History of colonoscopy History of open reduction and internal fixation (ORIF) procedure FEMUR ?SIDE S/P foot surgery RT/LEFT (HARDWARE INTACT) Family History Father Hypertension Aneurysm Mother Swelling Uncle Myocardial infarction Other No significant family history Denies family history of Ovarian cancer Prostate cancer Breast cancer Colorectal cancer Social History Smoking Status: Former smoker Tobacco Type: Cigarettes Age Started Using Tobacco: 14; Age Quit Using Tobacco: 68; packs per day: 1; Cigarettes Per Day: 10; Second Hand Exposure: No; Do You Dip or Chew Tobacco: No; Tobacco Cessation Education Requested by Patient: No Hx Alcohol Use: Yes Alcohol type: beer Alcohol Intake Frequency Comment: 8+ per day Hx Substance Use: No Preferred Language: Greek Communication Ability: Effective Visual Impairment: Limited Hearing Ability: Normal Binder Selector Required: No Beliefs That Will Affect Care: None marital status: Current Living Situation: Spouse Current Living Situation Comment: unknown intubated and sedated current occupational status: retired Other Information That Helps Us Care for You: No Feels Safe at Home: Yes Safety Concerns: Feels Safe At This Time Childhood Exposure to Second-Hand Smoke: Yes Dental Care, Regularly: No Physical Activity Frequency: Does not Exercise Seatbelt Use: always Sunscreen Use: No Assistive Devices: Cane, Denture - Upper, Denture - Lower, Oxygen - Continuous and Walker Review of Systems Review of Systems: All systems reviewed & are unremarkable except as noted in HPI & below Physical Exam Constitutional: + acute distress and + frail appearing Eyes: EOM intact bilaterally; no conjunctival abnormality ENMT: external ear and nose normal, oropharynx normal Neck: trachea midline, no thyromegaly normal visual inspection Respiratory: + labored breathing, + cough (Productive of yellow sputum), + tachypneic and + prolonged expiratory phase Auscultation: + diminished lung sounds (Poor air movement), + wheezes and + abnormal I/E ratio Cardiovascular: RRR, no murmur, no edema Gastrointestinal (Abdomen): Inspection/Auscultation: abdomen normal to inspection; abdomen not distended Musculoskeletal: no cyanosis or clubbing, extremities motor strength 5/5 Skin: no rashes, warm and dry Neurologic: moves all extremities and awake Psychiatric: Orientation: alert, oriented to person and cooperative Results & Data Results & Data ([facility]) Vital Signs (Past 12 Hours) Vital Signs Temp Pulse Pulse Pulse Resp BP BP 06/17/21 19:45 37 C 120 H 20 137/84 06/17/21 19:23 86 18 06/17/21 18:00 119 H 18 144/98 H 06/17/21 16:00 105 H 16 149/101 H 06/17/21 14:25 91 H 16 158/98 H 06/17/21 13:32 99 H 17 113/79 06/17/21 12:24 06/17/21 11:53 37.0 C 103 H 20 133/90 Pulse Ox 06/17/21 19:45 97 06/17/21 19:23 96 06/17/21 18:00 100 06/17/21 16:00 95 06/17/21 14:25 97 06/17/21 13:32 92 06/17/21 12:24 96 06/17/21 11:53 87 L Code Status & VTE Plan VTE Prophylaxis Plan VTE Prophylaxis will be ordered: Yes PG Care Time/CCT Total # of Minutes Spent Total Time Spent with Patient: Total time spent is greater than 50% in coordination of care (as documented) at patient's floor/unit and/or counseling patient: Coding Level of Care Code 98633 Initial Inpt Care Lvl 3 Diagnoses COPD exacerbation J44.1 Acute on chronic respiratory failure with hypoxia and hypercapnia J96.21; J96.22 AMS (altered mental status) R41.82 Trimalleolar fracture S82.853A Fracture type: closed Laterality: right Essential hypertension I10 SIADH (syndrome of inappropriate ADH production) E22.2 DVT prophylaxis Z29.9 (1) Trimalleolar fracture Fracture type: closed Laterality: right
[2021-06-17] MEDS: ALBUT/IPRATROP 3MG/0.5MG NEB 3 ML VIAL INH SCH (21:03)
[2021-06-17] MEDS: AZITHROMYCIN 250 MG TAB PO SCH (21:32)
[2021-06-17] MEDS: DOCUSATE SODIUM 100 MG CAP PO SCH (21:33)
[2021-06-17] MEDS: CYANOCOBALAMIN (B-12) 500 MCG TABLET PO SCH (21:33)
[2021-06-17] MEDS: guaiFENesin 600 MG TABCR PO SCH (21:33)
[2021-06-17] MEDS: SODIUM CHLORIDE 1 GM TABLET PO SCH (21:34)
[2021-06-17] MEDS: PREGABALIN 100 MG CAP PO SCH (21:35)
--- NOTE | 2021-06-17 22:37 | Electrocardiogram Report ---
Test Reason : Blood Pressure : / mmHG Vent. Rate : 105 BPM Atrial Rate : 105 BPM P-R Int : 154 ms QRS Dur : 056 ms QT Int : 310 ms P-R-T Axes : 060 -33 007 degrees QTc Int : 409 ms Poor data quality, interpretation may be adversely affected Sinus tachycardia Left axis deviation Inferior infarct , age undetermined Abnormal ECG When compared with ECG of 08-MAR-2021 19:23, Questionable change in QRS duration Inferior infarct is now Present Confirmed by Atif Mccall ([id number]) on 06/17/2021 10:37:09 PM Referred By: Confirmed By:Atif Mccall
[2021-06-18] MEDS: ALBUT/IPRATROP 3MG/0.5MG NEB 3 ML VIAL INH SCH ×5 (00:07→19:46)
[2021-06-18 07:28] LABS: Hematocrit (blood only) 36.3 % (42-52); Hemoglobin 11.5 g/dL (14.0-18.0); Mean Corpuscular Hemoglobin 29.3 pg (25-34); Mean Corpuscular Hgb Conc 31.7 g/dL (32-36); Mean Corpuscular Volume 92.4 fL (80-100); Mean Platelet Volume 9.6 fL (7.4-10.4); Platelet Count 235 K/uL (130-400); RDW Standard Deviation 51.4 fL (36.4-46.3); Red Blood Count 3.93 M/uL (4.7-6.1); White Blood Count 9.34 K/uL (4.8-10.8)
[2021-06-18 07:33] LABS: HCO3 ABG 37 mmol/L (19-24); Oxygen Saturation ABG 95.7 % (90-95); PCO2 ABG 58 mmHg (35-46); PO2 ABG 79 mmHg (80-95); pH ABG 7.43 (7.35-7.45)
[2021-06-18 07:35] LABS: Allen Test Pos (Pos)
[2021-06-18 07:53] LABS: BUN Creatinine Ratio 25.8 (10-20); Calcium 9.6 mg/dl (8.5-10.1); Creatinine Clr Calc Pharmacy 110.3 ml/min; Est GFR (African American) 118.1 ml/min; Est GFR (Non-African American) 101.9 ml/min; Potassium 4.2 mmol/L (3.5-5.1)
[2021-06-18] MEDS: METOPROLOL SUCC 50MG EXT REL TAB PO SCH (07:56)
[2021-06-18] MEDS: VENLAFAXINE HCL XR 150 MG CAPXR PO SCH (07:57)
[2021-06-18] MEDS: SODIUM CHLORIDE 1 GM TABLET PO SCH ×2 (07:57→20:19)
[2021-06-18] MEDS: predniSONE 20 MG TAB PO SCH (07:57)
[2021-06-18] MEDS: FUROSEMIDE 20 MG TAB PO SCH (07:57)
[2021-06-18] MEDS: ATORVASTATIN 40 MG TAB PO SCH (07:57)
[2021-06-18] MEDS: DOCUSATE SODIUM 100 MG CAP PO SCH ×2 (07:58→20:19)
[2021-06-18] MEDS: guaiFENesin 600 MG TABCR PO SCH ×2 (07:58→20:19)
[2021-06-18] MEDS: ENOXAPARIN INJ 40 MG/0.4 ML SYR SQ SCH (07:59)
[2021-06-18] MEDS: PREGABALIN 100 MG CAP PO SCH ×2 (08:05→20:21)
[2021-06-18] MEDS ORDERED: UMECLIDINIUM BROMIDE 62.5MCG/BLISTER 7 PUFFS/INHALER INH SCH (09:00)
[2021-06-18] MEDS ORDERED: FLUTICASONE/VILANTEROL 100/25MCG 14 PUFFS/INHALER INH SCH (09:00)
--- NOTE | 2021-06-18 13:13 | Hospitalist Progress Note ---
Date of Service June 18, 2021 Assessment & Plan (1) COPD exacerbation: Plan: Exacerbation of severe baseline COPD. Was recommended to use AVAPS machine by Dr. Dominguez in 12/2020. Not using per patient due to fit issues. Per , he constantly tries to turn up his home O2 for his shortness of breath. -> At this time, does meet Gold criteria for COPD exacerbation: increased shortness of breath and increased cough and sputum production. - Continue home maintenance inhalers - Prednisone 40 mg PO daily - DuoNebs standing and PRN - Azithromycin 250 mg PO daily; could consider M-W-F dosing after 5-day course to reduce chances of exacerbation - Will continue the above regimen as ordered w/ addition of Budesonide and Perforomist BID (2) Acute on chronic respiratory failure with hypoxia and hypercapnia: Plan: Due to COPD. - As above (3) AMS (altered mental status): Plan: Possibly hypoxemia and hypercapnia related. Now back at baseline. - Nocturnal O2 measurement, did have some dips overnight into the high 70s - ABG this morning noted hypercapnia w/ pCO2 of 58 mmHg - Attempted to reiterate importance of compliance with AVAPS machine but pt has been all over the place during visit talking about unrelated things (4) Trimalleolar fracture: Plan: Due to falling out of his seat. S/p ORIF with Dr. Paulino. - Still no weight-bearing on right leg. - Will see orthopedics in 1 week and could possibly start to bear weight at that time. - Continue with boot (5) Essential hypertension: Plan: BP is 135/85. - Continue home beta-cristina (6) SIADH (syndrome of inappropriate ADH production): Plan: Suspect this diagnosis is fairly remote as prior urine osms are from 2019. On admission, Na was 141. - Given he appears euvolemic on exam and sodium is normal, continue NaCl tabs (7) DVT prophylaxis: Plan: Lovenox 40 mg SQ daily Plan: Unclear if his mentation is his baseline, will need to discuss that with his . Certainly is alert and oriented, able to answer questions appropriately but some of his thought processes are very tangential. Regardless, will continue to treat patient for his AECOPD as outlined above. Anticipate another 24 hours of treatment and he may be well enough to return home. Above d/w Dr. Baresel. Admission and Anticipated Discharge Date Admission Date: June 17, 2021 Subjective Patient seen on daily rounds this morning. He is currently in bed and offers no complaints. Reports that his breathing has improved. Continues to have cough. Denies cp, dyspnea at rest. Is currently on 4L nasal cannula which he chronically wears between 3-4L at home. Review of Systems Review of Systems: CONSTITUTIONAL: Denies weight loss/gain, fever and chills, fatigue, malaise, generalized weakness. HEENT: Denies changes in vision and hearing. RESPIRATORY: +cough, wheezing. Denies SOB at rest. CV: Denies palpitations, CP, lower extremity edema, orthopnea, PND. GI: Denies abdominal pain, nausea, vomiting and diarrhea. : Denies dysuria and urinary frequency, urgency, hesitancy. MUSCULOSKELETAL: Right ankle in boot RLE. SKIN: Denies rash and pruritus. NEUROLOGICAL: Denies headache, syncope, focal weakness, numbness, tingling. PSYCHIATRIC: Denies recent changes in mood. Denies anxiety and depression. Physical Exam Physical Exam: GENERAL: 70 yo well-developed, well-nourished WM. NAD. LUNGS: Good air movement. Scattered rhonchi and expiratory wheezes bilaterally. CARDIOVASCULAR: Regular rate and rhythm. No M/G/R. No JVD. ABDOMEN: Soft, non-tender and non-distended. BS normoactive x 4 quad. EXTREMITIES: No edema. Non-tender. Peripheral pulses +2/4. NEUROLOGIC: A&O x3. PSYCHIATRIC: Cooperative. Appropriate mood and affect. SKIN: Warm, dry, intact. No rashes or lesions. Results & Data Results & Data ([facility] [place]) Vital Signs (Past 12 Hours) Vital Signs Temp Pulse Resp BP Pulse Ox 06/18/21 10:57 103 H 19 92 06/18/21 07:42 36.7 C 103 H 16 138/84 91 06/18/21 07:21 98 H 17 96 Laboratory Results 06/18/21 07:20 06/18/21 07:20 PG Care Time/CCT Total # of Minutes Spent Total Time Spent with Patient: Total time spent is greater than 50% in coordination of care (as documented) at patient's floor/unit and/or counseling patient: Coding Level of Care Code 07369 Subseq Hosp Care Lvl 2 Diagnoses COPD exacerbation J44.1 Acute on chronic respiratory failure with hypoxia and hypercapnia J96.21; J96.22 AMS (altered mental status) R40.4 Altered mental status type: transient alteration of awareness Trimalleolar fracture S82.853A Fracture type: closed Laterality: right Essential hypertension I10 SIADH (syndrome of inappropriate ADH production) E22.2 DVT prophylaxis Z29.9 (1) AMS (altered mental status) Altered mental status type: transient alteration of awareness Qualified Code(s): R40.4 - Transient alteration of awareness (2) Trimalleolar fracture Fracture type: closed Laterality: right
[2021-06-18] MEDS ORDERED: ALBUT/IPRATROP 3MG/0.5MG NEB 3 ML VIAL INH SCH (13:15)
[2021-06-18] MEDS ORDERED: THIAMINE HCL 500 MG in SODIUM CHLORIDE 0.9% 50 ML IV STA (14:45)
--- NOTE | 2021-06-18 16:44 | Magnetic Resonance Report ---
MRI OF THE BRAIN WITHOUT CONTRAST CLINICAL HISTORY: Altered mental status. COMPARISON STUDY: MRI of the brain January 28, 2019. Head CT and CTA of the head March 08, 2021. TECHNIQUE: Utilizing a 1.5 Oliva magnet and dedicated coil, multiplanar, multiecho imaging of the bra in was performed without IV contrast. FINDINGS: There are no foci of restricted diffusion to suggest acute infarct. A focus of susceptibili ty artifact within the femoral head is again noted. This is unchanged. Ventricular system is stable. Basal cisterns are patent. There are no extra axial collections. Flow-voids for the major intracrania l vessels are present. No intracranial mass is identified on this unenhanced examination. The appeara nce of the brain is similar to prior MRI. Mild white matter T2 hyperintense foci suggest small vessel disease. Calvarial signal is within normal limits. Note is made of a type II odontoid fracture which is distracted by approximately 6 mm. This was shown on prior CT of March 08, 2021. IMPRESSION: 1. No acute intracranial findings. No significant change in appearance of the brain. 2. Redemonstration of a mildly distracted type II odontoid fracture which was shown on CT of March 08, 2021. ACT 112: Negative or not required by law. Electronically signed by: Chaitanya Srivastava M.D. 06/18/2021 4:42 PM
[2021-06-18] MEDS: FORMOTEROL 20 MCG/2 ML VIAL NEB SCH (18:57)
[2021-06-18] MEDS: BUDESONIDE 0.5 MG/2 ML VIAL (PULMICORT) NEB SCH (18:57)
[2021-06-18] MEDS: AZITHROMYCIN 250 MG TAB PO SCH (20:18)
[2021-06-18] MEDS: CYANOCOBALAMIN (B-12) 500 MCG TABLET PO SCH (20:18)
[2021-06-18] MEDS ORDERED: QUEtiapine FUMARATE 25 MG TABLET PO SCH (21:00)
[2021-06-18] MEDS ORDERED: HALOPERIDOL LACTATE 5 MG/ML 1 ML VIAL IM STA (22:25)
[2021-06-19] MEDS: ALBUT/IPRATROP 3MG/0.5MG NEB 3 ML VIAL INH SCH ×3 (00:33→13:31)
[2021-06-19] MEDS ORDERED: LORazepam 2 MG/1 ML VIAL IV STA (01:04)
[2021-06-19 07:22] LABS: Appearance Urine Clear (Clear); Bilirubin Urine Negative (Negative); Blood Urine Negative (Negative); Color Urine Yellow; Glucose Urine UA Negative (Negative); Ketones Urine Negative (Negative); Leukocyte Esterase Urine Negative (Negative); Nitrite Urine Negative (Negative); Protein Urine Negative (Negative); Specific Gravity Urine 1.023 (1.000-1.030); Urobilinogen Urine Negative (Negative); pH Urine 7.5 (4.5-7.5)
[2021-06-19] MEDS: FORMOTEROL 20 MCG/2 ML VIAL NEB SCH ×2 (07:43→19:23)
[2021-06-19] MEDS: BUDESONIDE 0.5 MG/2 ML VIAL (PULMICORT) NEB SCH ×2 (07:43→19:23)
[2021-06-19] MEDS: predniSONE 20 MG TAB PO SCH (10:58)
[2021-06-19] MEDS: ATORVASTATIN 40 MG TAB PO SCH (10:59)
[2021-06-19] MEDS: METOPROLOL SUCC 50MG EXT REL TAB PO SCH (10:59)
[2021-06-19] MEDS: VENLAFAXINE HCL XR 150 MG CAPXR PO SCH (10:59)
[2021-06-19] MEDS: PREGABALIN 100 MG CAP PO SCH ×2 (10:59→20:16)
[2021-06-19] MEDS: DOCUSATE SODIUM 100 MG CAP PO SCH ×2 (10:59→20:15)
[2021-06-19] MEDS: SODIUM CHLORIDE 1 GM TABLET PO SCH ×2 (10:59→20:17)
[2021-06-19] MEDS: ENOXAPARIN INJ 40 MG/0.4 ML SYR SQ SCH (11:00)
[2021-06-19] MEDS: guaiFENesin 600 MG TABCR PO SCH ×2 (11:00→20:16)
--- NOTE | 2021-06-19 13:09 | Hospitalist Progress Note ---
Date of Service June 19, 2021 Assessment & Plan (1) COPD exacerbation: Plan: Exacerbation of severe baseline COPD. Was recommended to use AVAPS machine by Dr. Dominguez in 12/2020. Not using per patient due to fit issues. Per , he constantly tries to turn up his home O2 for his shortness of breath. -> At this time, does meet Gold criteria for COPD exacerbation: increased shortness of breath and increased cough and sputum production. - Discontinued home maintenance inhalers on 06/18 in favor of nebs - Prednisone 40 mg PO daily- will de-escalate to 30mg starting 06/21 - DuoNebs standing and PRN - Azithromycin 250 mg PO daily; could consider M-W-F dosing after 5-day course to reduce chances of exacerbation - Will continue the above regimen as ordered w/ addition of Budesonide and Perforomist BID - RN able to wean O2 down to 1L with sats ranging 89-93% (2) Acute on chronic respiratory failure with hypoxia and hypercapnia: Plan: Due to COPD. - As above (3) AMS (altered mental status): Plan: Possibly hypoxemia and hypercapnia related. Now back at baseline. - Nocturnal O2 measurement, did have some dips overnight into the high 70s - Suspect that the hypercapnia is playing somewhat of a role - Difficult to exclude underlying cognitive impairment w/ acute delirium d/t hospitalization + metabolic encephalopathy d/t hypercapnia - MRI performed on 06/18 was negative for any acute findings that would cause AMS - UA obtained yesterday was WNL - Started Seroquel 25mg HS 06/18, will increase to 50mg tonight - Discussed w/ Dr. Loera who is front end manager for psychiatry, will consult, appreciate recommendations - Haldol 2.5mg IM q4h prn agitation to be utilized, please do NOT give Ativan as his can cause TABLET COATER depression and worsen his acute delirium (4) Trimalleolar fracture: Plan: Due to falling out of his seat. S/p ORIF with Dr. Paulino. - Still no weight-bearing on right leg. - Will see orthopedics in 1 week and could possibly start to bear weight at that time. - Continue with boot (5) Essential hypertension: Plan: BP is 135/85. - Continue home beta-cristina (6) SIADH (syndrome of inappropriate ADH production): Plan: Suspect this diagnosis is fairly remote as prior urine osms are from 2019. On admission, Na was 141. - Given he appears euvolemic on exam and sodium is normal, continue NaCl tabs (7) DVT prophylaxis: Plan: - Lovenox 40 mg SQ daily (8) Urinary retention: Plan: - Pt does have a large inguinal hernia; however, was able to spontaneously void prior to hospitalization - Suspect this is drug induced from anticholinergic meds --> ?duonebs - Now with administration of antipsychotics (Haldol), could also precipitate/worsen urinary retention - Change Duonebs to PRN and avoid Haldol unless absolutely needed as to not further worsening retention Plan: Discussed case with at bedside yesterday and provided update today. Proceeded with MRI which failed to demonstrate a neurologic explanation for his behavior. Could certainly be related to hypercapnia but as mentioned above, hard to completely exclude underlying cognitive impairment w/ delirium component. Consult to Dr. Loera as outlined above, appreciate recommendations. He is stable from a respiratory/COPD standpoint. D/C planning -- anticipate home w/ home health in the next 24-48 hours. Admission and Anticipated Discharge Date Admission Date: June 17, 2021 Subjective Patient seen on daily rounds this morning. He is currently sound asleep. Currently pt is a 1:1 as per [employer]ING QUALITY [employer]OR he got combative with staff yesterday overnight. Appears he was given not only Haldol but Lorazepam as well by the resident. Review of Systems Review of Systems: Unable to assess ROS today d/t somnolence Physical Exam Physical Exam: GENERAL: 70 yo well-developed, well-nourished WM. NAD. LUNGS: Good air movement. Don't appreciate anterior wheezes or rhonchi. CARDIOVASCULAR: Regular rate and rhythm. No M/G/R. ABDOMEN: Soft, non-tender and non-distended. BS normoactive x 4 quad. EXTREMITIES: No edema. Non-tender. Peripheral pulses +2/4. NEUROLOGIC: asleep/somnolent d/t meds PSYCHIATRIC: Cooperative. Appropriate mood and affect. SKIN: Warm, dry, intact. No rashes or lesions. Results & Data Results & Data ([facility]) Vital Signs (Past 12 Hours) Vital Signs Temp Pulse Resp BP Pulse Ox 06/19/21 11:07 36.5 C 94 H 16 146/89 H 90 06/19/21 09:44 60 16 138/85 93 Diagnostic Findings Brain MRI 06/18/21 14:39 MRI OF THE BRAIN WITHOUT CONTRAST CLINICAL HISTORY: Altered mental status. COMPARISON STUDY: MRI of the brain January 28, 2019. Head CT and CTA of the head March 08, 2021. TECHNIQUE: Utilizing a 1.5 Oliva magnet and dedicated coil, multiplanar, multiecho imaging of the brain was performed without IV contrast. FINDINGS: There are no foci of restricted diffusion to suggest acute infarct. A focus of susceptibility artifact within the femoral head is again noted. This is unchanged. Ventricular system is stable. Basal cisterns are patent. There are no extra axial collections. Flow-voids for the major intracranial vessels are present. No intracranial mass is identified on this unenhanced examination. The appearance of the brain is similar to prior MRI. Mild white matter T2 hyperintense foci suggest small vessel disease. Calvarial signal is within normal limits. Note is made of a type II odontoid fracture which is distracted by approximately 6 mm. This was shown on prior CT of March 08, 2021. IMPRESSION: 1. No acute intracranial findings. No significant change in appearance of the brain. 2. Redemonstration of a mildly distracted type II odontoid fracture which was shown on CT of March 08, 2021. ACT 112: Negative or not required by law. Electronically signed by: Chaitanya Srivastava M.D. 06/18/2021 4:42 PM PG Care Time/CCT Total # of Minutes Spent Total Time Spent with Patient: Total time spent is greater than 50% in coordination of care (as documented) at patient's floor/unit and/or counseling patient: Coding Level of Care Code 74779 Subseq Hosp Care Lvl 3 Diagnoses COPD exacerbation J44.1 Acute on chronic respiratory failure with hypoxia and hypercapnia J96.21; J96.22 AMS (altered mental status) R40.4 Altered mental status type: transient alteration of awareness Trimalleolar fracture S82.853A Fracture type: closed Laterality: right Essential hypertension I10 SIADH (syndrome of inappropriate ADH production) E22.2 DVT prophylaxis Z29.9 Urinary retention R33.9 (1) Trimalleolar fracture Fracture type: closed Laterality: right (2) AMS (altered mental status) Altered mental status type: transient alteration of awareness Qualified Code(s): R40.4 - Transient alteration of awareness
[2021-06-19] MEDS ORDERED: HALOPERIDOL LACTATE 5 MG/ML 1 ML VIAL IM PRN (13:40)
[2021-06-19] MEDS ORDERED: ALBUT/IPRATROP 3MG/0.5MG NEB 3 ML VIAL INH PRN (13:43)
[2021-06-19] MEDS: THIAMINE HCL 100 MG TAB PO SCH (16:27)
[2021-06-19] MEDS: AZITHROMYCIN 250 MG TAB PO SCH (20:14)
[2021-06-19] MEDS: CYANOCOBALAMIN (B-12) 500 MCG TABLET PO SCH (20:15)
[2021-06-19] MEDS ORDERED: QUEtiapine FUMARATE 25 MG TABLET PO SCH (21:00)
[2021-06-20 06:32] LABS: Creatinine Clr Calc Pharmacy 76.9 ml/min; Est GFR (African American) 101.8 ml/min; Est GFR (Non-African American) 87.9 ml/min
[2021-06-20] MEDS: FORMOTEROL 20 MCG/2 ML VIAL NEB SCH (07:13)
[2021-06-20] MEDS: BUDESONIDE 0.5 MG/2 ML VIAL (PULMICORT) NEB SCH (07:13)
[2021-06-20] MEDS ORDERED: FOLIC ACID 1 MG TAB PO SCH (09:00)
[2021-06-20] MEDS: ATORVASTATIN 40 MG TAB PO SCH (09:17)
[2021-06-20] MEDS: THIAMINE HCL 100 MG TAB PO SCH (09:17)
[2021-06-20] MEDS: METOPROLOL SUCC 50MG EXT REL TAB PO SCH (09:17)
[2021-06-20] MEDS: FUROSEMIDE 20 MG TAB PO SCH (09:17)
[2021-06-20] MEDS: VENLAFAXINE HCL XR 150 MG CAPXR PO SCH (09:18)
[2021-06-20] MEDS: SODIUM CHLORIDE 1 GM TABLET PO SCH (09:18)
[2021-06-20] MEDS: DOCUSATE SODIUM 100 MG CAP PO SCH (09:18)
[2021-06-20] MEDS: ENOXAPARIN INJ 40 MG/0.4 ML SYR SQ SCH (09:18)
[2021-06-20] MEDS: predniSONE 20 MG TAB PO SCH (09:18)
[2021-06-20] MEDS: guaiFENesin 600 MG TABCR PO SCH (09:18)
[2021-06-20] MEDS: PREGABALIN 100 MG CAP PO SCH (09:24)
--- NOTE | 2021-06-20 12:23 | Psychiatric Consultation ---
Date of Consultation June 20, 2021 Impression / Recommendations Impression Diagnostically consistent with encephalopathy/delirium in context of COPD exacerbation and prednisone use. Possible underlying mild cognitive impairment, recommend outpatient workup for this. Seroquel 50mg for one week for delirium and reduce any re-emergence of symptoms. Significant improvement overnight. No evidence for any psychiatric conditions contributing to presentation. -Continue seroquel 50 mg qhs for 1 week then stop -Consider melatonin 3mg qhs -Continue with delirium prevention measures: raising blinds during the day, closing at night, frequent re-orientation, contact with family/friends, explaining procedures/nursing care measures prior to physical contact, correct any hearing and visual impairments (1) Acute encephalopathy: (2) COPD exacerbation: see above Psych History Identifying Data 70 yo man with history of COPD, stroke, SIADH admitted medically for COPD exacerbation. Psychiatry was consulted for AMS. Chief Complaint "I'm feeling much better". History of Present Illness Lauro was admitted for COPD exacerbation. Developed worsening confusion and became irritable toward staff during admission. Spoke with hospitalist and gave medication recommendations last night for seroquel which he took. States he slept "really well" and feels much better today. Denies any psychiatric symptoms. Fully oriented, no further evidence of confusion. Behaviorally ap propriate. Does endorse worsening memory over the last few years with forgetting words at times and struggling with dates sometimes. Allergies Allergy/AdvReac Type Severity Reaction Status Date / Time No Known Allergies Allergy Verified 06/17/21 14:03 Home Medications Medication Instructions Recorded Confirmed Type Lactobacills gasseri-Bifidobac 1 cap PO QAM 02/25/19 06/17/21 History bifidum,longum 1.5 billion cell capsule (Probiotic Colon Support) sodium chloride 1 gram tablet 1 g PO BID #180 tab 09/06/20 06/17/21 Rx ipratropium 0.5 mg-albuterol 3 mg 3 ml INH Q4H PRN #540 ml 12/22/20 06/17/21 Rx (2.5 mg base)/3 mL nebulization soln nebulizer accessories #1 ea 12/22/20 05/24/21 Rx BiPap Machine See Rx Instructions .ROUTE 01/04/21 05/24/21 Rx .COMPLEX #1 ea venlafaxine 150 mg 150 mg PO QAM 90 Days #90 cap 01/07/21 06/17/21 Rx capsule,extended release 24 hr cyanocobalamin (vitamin B-12) 1,000 mcg PO HS 03/08/21 06/17/21 History 1,000 mcg tablet (Vitamin B-12) metoprolol succinate 50 mg See Rx Instructions .ROUTE 03/22/21 06/17/21 Rx tablet,extended release 24 hr .COMPLEX #30 tab furosemide 20 mg tablet (Lasix) 20 mg PO Q OTHER DAY #15 tab 04/26/21 06/17/21 Rx docusate sodium 100 mg capsule 100 mg PO BID #60 cap 05/03/21 06/17/21 Rx ferrous sulfate 325 mg (65 mg 325 mg PO BID #60 tab 05/03/21 06/17/21 Rx iron) tablet,delayed release folic acid 1 mg tablet 1 mg PO QAM #30 tab 05/03/21 06/17/21 Rx multivitamin with folic acid 400 1 tab PO QAM #30 tab 05/03/21 06/17/21 Rx mcg tablet (Daily-[place] (with folic acid)) polyethylene glycol 3350 17 gram 17 g PO DAILY PRN #30 ea 05/03/21 06/17/21 Rx oral powder packet (Miralax) thiamine HCl (vitamin B1) 100 mg 100 mg PO QAM #30 tab 05/03/21 06/17/21 Rx tablet tramadol 50 mg tablet 100 mg PO Q4H PRN #36 tab 05/03/21 06/17/21 Rx pregabalin 100 mg capsule 100 mg PO BID #60 cap 05/30/21 06/17/21 Rx albuterol sulfate 90 mcg/actuation 1 - 2 puff INHALATION Q4H PRN #54 05/31/21 06/17/21 Rx aerosol inhaler gm fluticasone 500 mcg-salmeterol 50 1 inh INHALATION BID #60 ea 05/31/21 06/17/21 Rx mcg/dose blistr powdr for inhalation (Advair Diskus) atorvastatin 40 mg tablet 40 mg PO QAM 06/17/21 06/17/21 History magnesium oxide 400 mg (241.3 mg 400 mg PO QAM 06/17/21 06/17/21 History magnesium) tablet sumatriptan succinate 50 mg tablet 50 mg PO Q2H PRN #9 tab MDD 4 06/17/21 Rx tablets/24hrs umeclidinium 62.5 mcg/actuation 1 inh INHALATION QAM 06/17/21 06/17/21 History blister powder for inhalation (Incruse Ellipta) azithromycin 250 mg tablet 250 mg PO HS #2 tab 06/20/21 Rx prednisone 10 mg tablet 10 mg PO DAILY #18 tab 06/20/21 Rx quetiapine 50 mg tablet (Seroquel) 50 mg PO HS #7 tab 06/20/21 Rx Personal History Beliefs That Will Affect Care: None Patient History Medical History Acute hyponatremia Alcohol abuse Alcohol withdrawal Bacteremia Cellulitis Colitis COPD (chronic obstructive pulmonary disease) COPD exacerbation Delirium tremens DVT prophylaxis Face lacerations Gout Hyperlipidemia Hypertension Hypokalemia Hypomagnesemia Hyponatremia Hypoxemia Incarcerated left inguinal hernia Infection of spine DX 5 YEARS AGO (TREATED AT [facility]) Klebsiella pneumoniae infection Low back pain Metabolic encephalopathy Migraine Neuropathy On home oxygen therapy 3L CONT. Orthostasis Osteoarthritis Respiratory failure Right hand fracture Right inguinal hernia Seizure Seizure LAST EPISODE LAST MONTH (HOSPITALIZED AT [facility]) ? ETIOLOGY FOLLOWED BY DR. HIGHTOWER Sepsis associated hypotension Tachycardia Tremor BILAT HANDS AND A LITTLE IN BILAT. FEET UTI (urinary tract infection) Surgical History H/O tooth extraction Lower teeth on 04/23/2018 H/O tooth extraction History of colonoscopy History of open reduction and internal fixation (ORIF) procedure FEMUR ?SIDE S/P foot surgery RT/LEFT (HARDWARE INTACT) Family History Father Hypertension Aneurysm Mother Swelling Uncle Myocardial infarction Other No significant family history Denies family history of Ovarian cancer Prostate cancer Breast cancer Colorectal cancer Social History Smoking Status: Former smoker Tobacco Type: Cigarettes Age Started Using Tobacco: 14; Age Quit Using Tobacco: 68; packs per day: 1; Cigarettes Per Day: 10; Second Hand Exposure: No; Do You Dip or Chew Tobacco: No; Tobacco Cessation Education Requested by Patient: No Hx Alcohol Use: Yes Alcohol type: beer Alcohol Intake Frequency Comment: 8+ per day Hx Substance Use: No Preferred Language: Kazakh Communication Ability: Impaired Visual Impairment: Limited Hearing Ability: Normal Young Adult Librarian Required: No Beliefs That Will Affect Care: None marital status: Current Living Situation: Spouse Current Living Situation Comment: unknown intubated and sedated current occupational status: retired Other Information That Helps Us Care for You: No Feels Safe at Home: Yes Safety Concerns: Feels Safe At This Time Childhood Exposure to Second-Hand Smoke: Yes Dental Care, Regularly: No Physical Activity Frequency: Does not Exercise Seatbelt Use: always Sunscreen Use: No Assistive Devices: Wheelchair Physical Exam Psychiatric: Orientation: alert and oriented x 3 Apperance: appropriately dressed and appropriately groomed Eye Contact: good eye contact Motor Behavior: no abnormal motor movements; n EPS Speech: normal rate/rhythm/volume of speech Affect: euthymic affect Mood: no depressed mood and no anxious mood Thought Process: goal directed thought process Thought Content: reality based without delusions Suicidal Thoughts: denies suicidal thoughts Homicidal Thoughts: denies homicidal thoughts Hallucinations: no auditory hallucinations and no visual hallucinations Cognition: recent memory grossly intact, remote memory grossly intact, attention grossly intact and language grossly intact Insight: + fair insight Judgement: + fair judgement Vital Signs (Past 24 Hours): Last Vital Signs Temp 36.4 C L 06/20/21 07:10 Pulse 107 H 06/20/21 09:26 Resp 18 06/20/21 07:13 BP 106/68 06/20/21 09:26 Pulse Ox 93 06/20/21 07:13 Review of Systems All systems reviewed & are unremarkable except as noted in HPI & below Results & Data (PSY) Medications Administered Atorvastatin Calcium (Atorvastatin 40 Mg Tab) 40 mg PO QA [facility] Stop: 07/18/21 08:59 Last Admin: 06/20/21 09:17 Dose: 40 mg Documented by: [id number] Admin: 06/19/21 10:59 Dose: 40 mg Documented by: [id number] Admin: 06/18/21 07:57 Dose: 40 mg Documented by: [id number] Azithromycin (Azithromycin 250 Mg Tab) 250 mg PO [facility] Stop: 06/24/21 20:59 Last Admin: 06/19/21 20:14 Dose: 250 mg Documented by: [id number] Admin: 06/18/21 20:18 Dose: 250 mg Documented by: [id number] Admin: 06/17/21 21:32 Dose: 250 mg Documented by: [id number] Budesonide (Budesonide 0.5 Mg/2 Ml Vial (Pulmicort)) 0.5 mg NEB BIDR [facility] Stop: 07/18/21 18:59 Last Admin: 06/20/21 07:13 Dose: 0.5 mg Documented by: [id number] Admin: 06/19/21 19:23 Dose: 0.5 mg Documented by: [id number] Admin: 06/19/21 07:43 Dose: Not Given Documented by: [id number] Admin: 06/18/21 18:57 Dose: 0.5 mg Documented by: [id number] Cyanocobalamin (Cyanocobalamin (B-12) 500 Mcg Tablet) 1,000 mcg PO HS [facility] Stop: 07/17/21 20:59 Last Admin: 06/19/21 20:15 Dose: 1,000 mcg Documented by: [id number] Admin: 06/18/21 20:18 Dose: 1,000 mcg Documented by: [id number] Admin: 06/17/21 21:33 Dose: 1,000 mcg Documented by: [id number] Docusate Sodium (Docusate Sodium 100 Mg Cap) 100 mg PO BID [facility] Stop: 07/17/21 20:59 Last Admin: 06/20/21 09:18 Dose: 100 mg Documented by: [id number] Admin: 06/19/21 20:15 Dose: 100 mg Documented by: [id number] Admin: 06/19/21 10:59 Dose: 100 mg Documented by: [id number] Admin: 06/18/21 20:19 Dose: 100 mg Documented by: [id number] Admin: 06/18/21 07:58 Dose: 100 mg Documented by: [id number] Admin: 06/17/21 21:33 Dose: 100 mg Documented by: [id number] Enoxaparin Sodium (Enoxaparin Inj 40 Mg/0.4 Ml Syr) 40 mg SQ Q24H [facility] Stop: 07/18/21 08:59 Last Admin: 06/20/21 09:18 Dose: 40 mg Documented by: [id number] Admin: 06/19/21 11:00 Dose: 40 mg Documented by: [id number] Admin: 06/18/21 07:59 Dose: 40 mg Documented by: [id number] Folic Acid (Folic Acid 1 Mg Tab) 1 mg PO QAM [facility] Stop: 07/20/21 08:59 Last Admin: 06/20/21 09:18 Dose: 1 mg Documented by: [id number] Formoterol Fumarate (Formoterol 20 Mcg/2 Ml Vial) 20 mcg NEB BIDR [facility] Stop: 07/18/21 18:59 Last Admin: 06/20/21 07:13 Dose: 20 mcg Documented by: [id number] Admin: 06/19/21 19:23 Dose: 20 mcg Documented by: [id number] Admin: 06/19/21 07:43 Dose: Not Given Documented by: [id number] Admin: 06/18/21 18:57 Dose: 20 mcg Documented by: [id number] Furosemide (Furosemide 20 Mg Tab) 20 mg PO Q2D [facility] Stop: 07/18/21 08:59 Last Admin: 06/20/21 09:17 Dose: 20 mg Documented by: [id number] Admin: 06/18/21 07:57 Dose: 20 mg Documented by: [id number] Guaifenesin (Guaifenesin 600 Mg Tabcr) 600 mg PO Q12 [facility] Stop: 07/17/21 20:59 Last Admin: 06/20/21 09:18 Dose: 600 mg Documented by: [id number] Admin: 06/19/21 20:16 Dose: 600 mg Documented by: [id number] Admin: 06/19/21 11:00 Dose: 600 mg Documented by: [id number] Admin: 06/18/21 20:19 Dose: 600 mg Documented by: [id number] Admin: 06/18/21 07:58 Dose: 600 mg Documented by: [id number] Admin: 06/17/21 21:33 Dose: 600 mg Documented by: [id number] Metoprolol Succinate (Metoprolol Succ 50mg Ext Rel Tab) 50 mg PO [facility] Stop: 07/18/21 08:59 Last Admin: 06/20/21 09:17 Dose: 50 mg Documented by: [id number] Admin: 06/19/21 10:59 Dose: 50 mg Documented by: [id number] Admin: 06/18/21 07:56 Dose: 50 mg Documented by: [id number] Prednisone (Prednisone 20 Mg Tab) 40 mg PO [facility] Stop: 07/18/21 08:59 Last Admin: 06/20/21 09:18 Dose: 40 mg Documented by: [id number] Admin: 06/19/21 10:58 Dose: 40 mg Documented by: [id number] Admin: 06/18/21 07:57 Dose: 40 mg Documented by: [id number] Pregabalin (Pregabalin 100 Mg Cap) 100 mg PO BID [facility] Stop: 07/17/21 20:59 Last Admin: 06/20/21 09:24 Dose: 100 mg Documented by: [id number] Admin: 06/19/21 20:16 Dose: 100 mg Documented by: [id number] Admin: 06/19/21 10:59 Dose: 100 mg Documented by: [id number] Admin: 06/18/21 20:21 Dose: 100 mg Documented by: [id number] Admin: 06/18/21 08:05 Dose: 100 mg Documented by: [id number] Admin: 06/17/21 21:35 Dose: 100 mg Documented by: [id number] Quetiapine Fumarate (Quetiapine Fumarate 25 Mg Tablet) 50 mg PO HS [facility] Stop: 07/19/21 20:59 Last Admin: 06/19/21 20:16 Dose: 50 mg Documented by: [id number] Sodium Chloride (Sodium Chloride 1 Gm Tablet) 1 gm PO BID [facility] Stop: 07/17/21 20:59 Last Admin: 06/20/21 09:18 Dose: 1 gm Documented by: [id number] Admin: 06/19/21 20:17 Dose: 1 gm Documented by: [id number] Admin: 06/19/21 10:59 Dose: 1 gm Documented by: [id number] Admin: 06/18/21 20:19 Dose: 1 gm Documented by: [id number] Admin: 06/18/21 07:57 Dose: 1 gm Documented by: [id number] Admin: 06/17/21 21:34 Dose: 1 gm Documented by: [id number] Thiamine HCl (Thiamine Hcl 100 Mg Tab) 100 mg PO QAM [facility] Stop: 07/19/21 13:59 Last Admin: 06/20/21 09:17 Dose: 100 mg Documented by: [id number] Admin: 06/19/21 16:27 Dose: 100 mg Documented by: [id number] Venlafaxine HCl (Venlafaxine Hcl Xr 150 Mg Capxr) 150 mg PO QAM [facility] Stop: 07/18/21 08:59 Last Admin: 06/20/21 09:18 Dose: 150 mg Documented by: [id number] Admin: 06/19/21 10:59 Dose: 150 mg Documented by: [id number] Admin: 06/18/21 07:57 Dose: 150 mg Documented by: [id number] Coding Level of Care Code 69508 Inpt Consult Level 3 Diagnoses Acute encephalopathy G93.40 COPD exacerbation J44.1
--- NOTE | 2021-06-20 12:28 | Discharge Summary ---
Date of Service June 20, 2021 Admission HPI Per Admitting Provider 70yo M w/ hx of COPD, HTN, SIADH who presents with 1 month of worsening cough and shortness of breath. He was recently hospitalized for a trimalleolar fracture which was repaired with ORIF by Dr. Paulino. He went to [facility] for several weeks and was discharged there on 05/20/2021. Per his , he has been worsening since that time. He reports increasing cough with shortness of breath. He has increased sputum production. He is unsure of worsening sputum purulence as he swallows it when not in the hospital. His reports an episode of confusion this morning. She reports he was talking to himself and not making sense. He also was singing to himself. He jokingly notes that he was acting like he was drunk, but that he has not had any alcoholic beverages in at least 3 weeks. Principal Diagnosis AECOPD Metabolic encephalopathy d/t hypercapnia Questionable delirium Discharge Exam GENERAL: 70 yo well-developed, well-nourished WM. NAD. LUNGS: Good air movement. Mild end expiratory wheezes throughout CARDIOVASCULAR: Regular rate and rhythm. No M/G/R. ABDOMEN: Soft, non-tender and non-distended. BS normoactive x 4 quad. EXTREMITIES: No edema. Non-tender. Peripheral pulses +2/4. NEUROLOGIC: A&O x3 PSYCHIATRIC: Cooperative. Appropriate mood and affect. SKIN: Warm, dry, intact. No rashes or lesions. Discharge Data Allergies Allergy/AdvReac Type Severity Reaction Status Date / Time No Known Allergies Allergy Verified 06/17/21 14:03 Consultations 06/17/21 14:42 ED Decision to Admit Stat 06/19/21 13:40 Consult Psychiatry Routine Ordered Studies Chest X-Ray 06/17/21 12:20 XR chest 1V portable CLINICAL HISTORY: Atypical chest pain TECHNIQUE: Single frontal radiograph of the chest was obtained. Comparison: Comparison is made to chest one view 04/29/2021 FINDINGS: No lines and tubes are seen. The aorta is tortuous. The remainder of the cardio mediastinal silhouette is unremarkable. The lungs are clear. No evidence of pleural effusion or pneumothorax. IMPRESSION: No acute chest disease. ACT 112: Negative or not required by law. Electronically signed by: Sha Macias M.D. 06/17/2021 12:47 PM Brain MRI 06/18/21 14:39 MRI OF THE BRAIN WITHOUT CONTRAST CLINICAL HISTORY: Altered mental status. COMPARISON STUDY: MRI of the brain January 28, 2019. Head CT and CTA of the head March 08, 2021. TECHNIQUE: Utilizing a 1.5 Oliva magnet and dedicated coil, multiplanar, multiecho imaging of the brain was performed without IV contrast. FINDINGS: There are no foci of restricted diffusion to suggest acute infarct. A focus of susceptibility artifact within the femoral head is again noted. This is unchanged. Ventricular system is stable. Basal cisterns are patent. There are no extra axial collections. Flow-voids for the major intracranial vessels are present. No intracranial mass is identified on this unenhanced examination. The appearance of the brain is similar to prior MRI. Mild white matter T2 hyperintense foci suggest small vessel disease. Calvarial signal is within normal limits. Note is made of a type II odontoid fracture which is distracted by approximately 6 mm. This was shown on prior CT of March 08, 2021. IMPRESSION: 1. No acute intracranial findings. No significant change in appearance of the brain. 2. Redemonstration of a mildly distracted type II odontoid fracture which was shown on CT of March 08, 2021. ACT 112: Negative or not required by law. Electronically signed by: Chaitanya Srivastava M.D. 06/18/2021 4:42 PM Hospital Course (1) COPD exacerbation: Exacerbation of severe baseline COPD. Was recommended to use AVAPS machine by Dr. Dominguez in 12/2020. Not using per patient due to fit issues. Per , he constantly tries to turn up his home O2 for his shortness of breath. -> At this time, does meet Gold criteria for COPD exacerbation: increased shortness of breath and increased cough and sputum production. - Pt hospitalized to med/surg bed - Supplemental O2 continued, home maintenance inhalers continued - Prednisone 40 mg PO daily (completed 3 days of this)- will de-escalate to 30mg starting 06/21 - DuoNebs standing and PRN ordered - Azithromycin 250 mg PO daily; could consider M-W-F dosing after 5-day course to reduce chances of exacerbation - Stopped home inhalers on 06/18 and changed to nebulized Pulmicort and Formoterol BID - On 06/19, RN able to wean O2 down to 1L with sats ranging 89-93%, this morning (06/20) he's at 2L with sat of 93% - Had a lengthy discussion with pt's regarding over-oxygenating by dialing up O2 when not needed -- she does have a portable pulse ox monitor and will help to redirect pt not to do this - Recommend f/u with lung doc (Dr. Dominguez) to reorder AVAPS -- if he is compliant with this it will reduce hypercapnia and subsequent complications that will ensue as a result (2) Acute on chronic respiratory failure with hypoxia and hypercapnia: Due to COPD. - As above (3) AMS (altered mental status): I suspect a combination of acute hospital delirium and metabolic encephalopathy d/t hypercapnia - Nocturnal O2 measurement, did have some dips overnight into the high 70s (completed 06/17-06/18) - Suspect that the hypercapnia is playing somewhat of a role - Difficult to exclude underlying mild cognitive impairment w/ acute delirium d/t hospitalization + metabolic encephalopathy d/t hypercapnia - MRI performed on 06/18 was negative for any acute findings that would cause AMS - UA obtained yesterday was WNL - Started Seroquel 25mg HS 06/18, was increased to 50mg 06/19 - Discussed w/ Dr. Loera who is special weapons and tactics officer for psychiatry, will consult, appreciate recommendations - Haldol 2.5mg IM ordered q4h prn agitation to be utilized - Discussed case with Dr. Loera who agreed with my assessment, advised one week of Seroquel 50mg HS d/t being on Prednisone taper as to not potentially worsen his delirium and then discontinue - Also advised cognitive testing be done by PCP in order to establish if there is an underlying mild cognitive impairment (4) Trimalleolar fracture: Due to falling out of his seat. S/p ORIF with Dr. Paulino. - Still no weight-bearing on right leg. - Will see orthopedics in 1 week and could possibly start to bear weight at that time. - Continue with boot (5) Essential hypertension: BP is 135/85. - Continue home beta-cristina (6) SIADH (syndrome of inappropriate ADH production): Suspect this diagnosis is fairly remote as prior urine osms are from 2019. On admission, Na was 141. - Given he appears euvolemic on exam and sodium is normal, continue NaCl tabs (7) Urinary retention: - Pt does have a large inguinal hernia; however, was able to spontaneously void prior to hospitalization - Suspect this is drug induced from anticholinergic meds --> ?duonebs - Now with administration of antipsychotics (Haldol), could also precipitate/worsen urinary retention - Change Duonebs to PRN and avoid Haldol unless absolutely needed as to not further worsening retention - Pt able to void spontaneously today without issue At this time, pt is medically and hemodynamically stable for discharge home today in care of his . Recommendations as outlined above and in discharge instructions. Will arrange for PCP follow up within 1 week. Keep scheduled f/u with orthopedics on Sunday. Above plan of care has been d/w Dr. Taveras who has also seen and evaluated this patient prior to discharge and is in agreement with the aforementioned. Total Time Total Time Spent Total Time Spent (In Minutes): >30 minutes Discharge Plan Discharge Items Patient Disposition: Home - Home Health Services Reason For Visit: COPD EXACERBATION Discharge Diagnosis: Exacerbation of COPD Activity: As commented below Activity Comment: nonweightbearing on R foot until cleared by ortho Non-emergency contact: Primary Care Provider Call non-emergency contact if: you have any medication questions, your symptoms worsen and your pain is not controlled Follow-up/Referrals: Russell Dang, [Primary Care Provider] - Diet: Regular Addtl Attending Provider Instructions: You were hospitalized due to an exacerbation of your lung disease (COPD) which caused you to require higher amounts of oxygen and make you feel short of breath. To treat this, you were given breathing treatments through a nebulizer, an antibiotic called Azithromycin, and oral steroids (Prednisone). I have sent these medications (Prednisone and Azithromycin) to your pharmacy for you to complete as directed. Take the steroids in the morning with food. You are also being prescribed Seroquel which should be taken at night before bed for the next 7 days and then stop. You were noted to have some confusion during your hospitalization, however, the important thing to note is that because of your lung disease, you have a tendency to retain carbon dioxide (which is the gas that gets exchanged in your body after you inhaled oxygen) instead of exhaling it like you would if your lungs were perfectly healthy. This tendency to retain carbon dioxide can cause you to become confused. So it is important NOT TO increase your oxygen on your own without being directed to do so by a trained healthcare professional. You need to keep your oxygen at 2L at rest and only increase if your oxygen level falls below 89% which may occur when you get up and move around. You can use a portable pulse oximetry monitor to keep an eye on your oxygen level and know when you need to increase or decrease the amount of oxygen you are getting on your tank. Your GOAL PULSE OXIMETRY READING is 88-92%, you DO NOT want your oxygen number to be less than 88% or much higher than 92%. Lastly, you need to follow up with your lung doctor (Dr. Dominguez) to discuss resuming the use of your portable ventilator machine that you were previously advised to use. Correctly using this machine will help to ensure you do not retain the carbon dioxide. We recommend you follow up with your family doctor within 1 week of discharge. Follow up with your orthopedic surgeon on Sunday as scheduled. Follow up with your lung doctor within 2 weeks or if you already have an upcoming appointment, you can keep that as scheduled. Pending Studies at Discharge: No Stand-Alone Forms: My [facility], Smoking Cessation Medications and DC Order Prescriptions: New azithromycin 250 mg Tablet 250 mg PO HS Qty: 2 RF: 0 prednisone 10 mg tablet 10 mg PO DAILY Qty: 18 RF: 0 quetiapine [Seroquel] 50 mg tablet 50 mg PO HS Qty: 7 RF: 0 Continued sodium chloride 1 gram tablet 1 g PO BID Qty: 180 RF: 3 venlafaxine 150 mg capsule,extended release 24hr 150 mg PO QAM 90 Days Qty: 90 RF: 1 metoprolol succinate 50 mg tablet extended release 24 hr See Rx Instructions .ROUTE .COMPLEX Qty: 30 RF: 11 furosemide [Lasix] 20 mg tablet 20 mg PO Q OTHER DAY Qty: 15 RF: 5 pregabalin 100 mg capsule 100 mg PO BID Qty: 60 RF: 2 albuterol sulfate 90 mcg/actuation HFA aerosol inhaler 1 - 2 puff INHALATION Q4H PRN (Reason: Shortness Of Breath) Qty: 54 RF: 1 fluticasone propion-salmeterol [Advair Diskus] 500-50 mcg/dose blister with device 1 inh inhalation BID Qty: 60 RF: 0 sumatriptan succinate 50 mg tablet 50 mg PO Q2H MDD 4 tablets/24hrs PRN (Reason: migraine headache) Qty: 9 RF: 5 (DME) nebulizer accessories Kit See Rx Instructions .ROUTE .MEDSUPPLY Qty: 1 RF: 0 ipratropium-albuterol 0.5 mg-3 mg(2.5 mg base)/3 mL solution for nebulization 3 ml INH Q4H PRN (Reason: shortness of breath or wheezing) Qty: 540 RF: 5 BiPap Machine Misc See Rx Instructions .ROUTE .COMPLEX Qty: 1 RF: 0 Probiotic Colon Support 1.5 billion cell Capsule 1 cap PO QAM RF: 0 tramadol 50 mg Tablet 100 mg PO Q4H PRN (Reason: pain) Qty: 36 RF: 0 docusate sodium 100 mg Capsule 100 mg PO BID Qty: 60 RF: 0 ferrous sulfate 325 mg (65 mg iron) tablet,delayed release (DR/EC) 325 mg PO BID Qty: 60 RF: 0 polyethylene glycol 3350 [Miralax] 17 gram powder in packet 17 g PO DAILY PRN (Reason: constipation) Qty: 30 RF: 0 thiamine HCl (vitamin B1) 100 mg Tablet 100 mg PO QAM Qty: 30 RF: 0 folic acid 1 mg Tablet 1 mg PO QAM Qty: 30 RF: 0 multivitamin with folic acid [Daily-[place] (with folic acid)] 400 mcg Tablet 1 tab PO QAM Qty: 30 RF: 0 atorvastatin 40 mg tablet 40 mg PO QAM RF: 0 magnesium oxide 400 mg (241.3 mg magnesium) tablet 400 mg PO QAM RF: 0 Incruse Ellipta 62.5 mcg/actuation blister with device 1 inh inhalation QAM RF: 0 cyanocobalamin (vitamin B-12) [Vitamin B-12] 1,000 mcg Tablet 1,000 mcg PO HS RF: 0 Discharge Orders: Discharge Order (Routine); Ordered 06/20/21 Ordered By: Misti Cardozo/Other Patient Handouts: COPD: Coping with Mucus, COPD: Coping with Fatigue Admission Data Admit Date/Time: 06/17/21 15:34 Attending Provider: Jakob Taveras Admit Provider: Dennis Dang Primary Care Provider: Russell Dang Other Providers: Dennis Dang ; Julia Loera ; Jennifer Stroud ; Lela Driscoll Other Interventions: Discharge Summary Assessment (RN) Last Done: 06/20/21 15:37 Supervising Physician Co-Signing Physician Notes Case discussed with RAFAEL Arias, agree with management as above. Patient seen at bedside prior to discharge. Right foot in boot, neurovascularly intact. No acute distress. Denies shortness of breath, does have moderate to good air movement with trace wheezes greatly improved from prior. Continue prednisone, azithromycin as above. Goal pulse ox 88-90% reinforced with patient. Coding Level of Care Code D/C DAY MANAGEMENT >30 MINS Diagnoses COPD exacerbation J44.1 Acute on chronic respiratory failure with hypoxia and hypercapnia J96.21; J96.22 AMS (altered mental status) R40.4 Altered mental status type: transient alteration of awareness Trimalleolar fracture S82.853A Fracture type: closed Laterality: right Essential hypertension I10 SIADH (syndrome of inappropriate ADH production) E22.2 Urinary retention R33.9
== END 2021-06-20 16:47 | disposition home health service (06) | DRG 190 ==
LOC: ED 11:38 → SUATTDRO 15:34 → 3N 15:34

== ENCOUNTER 2021-09-20 16:51 | Inpatient (IN) ==
[2021-09-20] MEDS ORDERED: SODIUM CHLORIDE 0.9% 500 ML IV SCH (17:15)
--- NOTE | 2021-09-20 17:20 | Emergency Department Note ---
History of Present Illness General Chief complaint: Shortness of Breath/Dyspnea Stated complaint: shortness of breath Time Seen by Provider: 09/20/21 17:06 Source: patient and EMS Mode of arrival: EMS Limitations: physical limitation History of Present Illness Provider complaint: shortness of breath Onset (ago): day(s) 3 This is a 62-year-old male presents emergency department with worsening shortness of breath. Patient states symptoms began worsening 3 to 4 days ago. Patient does have history of COPD and does wear 4 L/min via nasal cannula at home oxygen. Patient states he quit smoking a few months ago. Patient has previously been hospitalized and intubated due to respiratory distress. Patient denies any recent illness, no one in his household has been sick. He denies fevers or chills. Patient states he has had chest pain particular with coughing. Patient states he is also noticed he is increasingly short of breath with any exertion and has accompanying chest pain. Patient states he has slowly been increasing his oxygen at home. Patient states he has been using nebulizer treatments more frequently without any improvement. He states his cough is productive of mostly a creamy sputum, he denies any hemoptysis. Patient denies any abdominal pain, change in bowel or bladder function. Patient does still wear a right lower extremity orthopedic boot following surgical repair of a significant ankle fracture in April. Patient states he has had lower extremity edema over the last 2 days. Patient denies any history of congestive heart failure. Patient does take prednisone daily. EMS states on their arrival patient had 2 nasal cannulas hooked up to 2 different oxygen tanks each at 4 L/min and patient was also giving himself a nebulizer treatment. Patient placed on CPAP by EMS for transport. Pt seen during a time of high acuity and national emergency pandemic while wearing PPE. Home Medications Medication Instructions Recorded Confirmed Type Lactobacills gasseri-Bifidobac 1 cap PO QAM 02/25/19 09/20/21 History bifidum,longum 1.5 billion cell capsule (Probiotic Colon Support) sodium chloride 1 gram tablet 1 g PO BID #180 tab 09/06/20 09/20/21 Rx ipratropium 0.5 mg-albuterol 3 mg 3 ml INH Q4H PRN #540 ml 12/22/20 09/20/21 Rx (2.5 mg base)/3 mL nebulization soln nebulizer accessories #1 ea 12/22/20 07/06/21 Rx venlafaxine 150 mg 150 mg PO QAM 90 Days #90 cap 01/07/21 09/20/21 Rx capsule,extended release 24 hr cyanocobalamin (vitamin B-12) 1,000 mcg PO HS 03/08/21 09/20/21 History 1,000 mcg tablet (Vitamin B-12) furosemide 20 mg tablet (Lasix) 20 mg PO Q OTHER DAY #15 tab 04/26/21 09/20/21 Rx docusate sodium 100 mg capsule 100 mg PO BID #60 cap 05/03/21 09/20/21 Rx ferrous sulfate 325 mg (65 mg 325 mg PO BID #60 tab 05/03/21 09/20/21 Rx iron) tablet,delayed release multivitamin with folic acid 400 1 tab PO QAM #30 tab 05/03/21 09/20/21 Rx mcg tablet (Daily-[place] (with folic acid)) polyethylene glycol 3350 17 gram 17 g PO DAILY PRN #30 ea 05/03/21 09/20/21 Rx oral powder packet (Miralax) thiamine HCl (vitamin B1) 100 mg 100 mg PO QAM #30 tab 05/03/21 09/20/21 Rx tablet tramadol 50 mg tablet 100 mg PO Q4H PRN #36 tab 05/03/21 09/20/21 Rx pregabalin 100 mg capsule 100 mg PO BID #60 cap 05/30/21 09/20/21 Rx albuterol sulfate 90 mcg/actuation 1 - 2 puff INHALATION Q4H PRN #54 05/31/21 09/20/21 Rx aerosol inhaler gm fluticasone 500 mcg-salmeterol 50 1 inh INHALATION BID #60 ea 05/31/21 09/20/21 Rx mcg/dose blistr powdr for inhalation (Advair Diskus) atorvastatin 40 mg tablet 40 mg PO QAM 06/17/21 09/20/21 History magnesium oxide 400 mg (241.3 mg 400 mg PO QAM 06/17/21 09/20/21 History magnesium) tablet sumatriptan succinate 50 mg tablet 50 mg PO Q2H PRN #9 tab MDD 4 06/17/21 09/20/21 Rx tablets/24hrs umeclidinium 62.5 mcg/actuation 1 inh INHALATION QAM 06/17/21 09/20/21 History blister powder for inhalation (Incruse Ellipta) quetiapine 50 mg tablet (Seroquel) 50 mg PO HS #7 tab 06/20/21 09/20/21 Rx folic acid 1 mg tablet 1 mg PO DAILY 09/20/21 09/20/21 History metoprolol succinate 50 mg 50 mg PO DAILY 09/20/21 09/20/21 History tablet,extended release 24 hr Allergies Allergy/AdvReac Type Severity Reaction Status Date / Time No Known Allergies Allergy Verified 09/20/21 18:02 Past Med/Surg History Medical History (Updated 09/21/21 @ 22:39 by Deepti Couch DO) Acute and chronic respiratory failure with hypercapnia Alcohol use disorder, moderate, in early remission Bacteremia Colitis COPD (chronic obstructive pulmonary disease) COPD exacerbation Delirium tremens Gout Hyperlipidemia Hypertension Hypokalemia Hypomagnesemia Hyponatremia Hypoxemia Incarcerated left inguinal hernia Infection of spine DX 5 YEARS AGO (TREATED AT [facility]) Klebsiella pneumoniae infection Low back pain Migraine Neuropathy On home oxygen therapy 3L CONT. Osteoarthritis Right hand fracture Right inguinal hernia Seizure LAST EPISODE LAST MONTH (HOSPITALIZED AT [facility]) ? ETIOLOGY FOLLOWED BY DR. HIGHTOWER Sepsis associated hypotension Tremor BILAT HANDS AND A LITTLE IN BILAT. FEET Surgical History H/O tooth extraction Lower teeth on 04/23/2018 H/O tooth extraction History of colonoscopy History of open reduction and internal fixation (ORIF) procedure FEMUR ?SIDE S/P foot surgery RT/LEFT (HARDWARE INTACT) Family History Father Hypertension Aneurysm Mother Swelling Uncle Myocardial infarction Other No significant family history Denies family history of Ovarian cancer Prostate cancer Breast cancer Colorectal cancer Social History (Updated 09/20/21 @ 20:50 by Kajal Barrientos DO) Smoking Status: Former smoker Tobacco Type: Cigarettes Age Started Using Tobacco: 14; Age Quit Using Tobacco: 69; packs per day: 1; Cigarettes Per Day: 10; Second Hand Exposure: No; Hx Alcohol Use: No Hx Substance Use: No Preferred Language: [place] Communication Ability: Effective Visual Impairment: Limited Hearing Ability: Normal 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 Beliefs That Will Affect Care: None marital status: Current Living Situation: Spouse Current Living Situation Comment: unknown intubated and sedated current occupational status: retired How many Children do You have: 2 Feels Safe at Home: Yes Safety Concerns: Feels Safe At This Time Childhood Exposure to Second-Hand Smoke: Yes Dental Care, Regularly: No Physical Activity Frequency: Does not Exercise Seatbelt Use: always Sunscreen Use: No Assistive Devices: Cane, Nebulizer, Oxygen - Continuous, Walker and Wheelchair Assistive Devices Comment: boot on right foot Review of Systems A total of 10 systems reviewed and were otherwise negative All systems reviewed & are unremarkable except as noted in HPI & below Physical Exam Vital Signs Vital Signs - 24 hr 09/20/21 16:59 09/20/21 17:09 09/20/21 17:27 Temperature 36.7 C 36.7 C Temperature Source Oral Oral Pulse Rate 118 H Pulse Rate [Right Finger] 104 H 103 H Pulse Rhythm [Right Finger] Pulse Strength Normal Pulse Strength [Right Finger] Normal Respiratory Rate 23 20 16 Respiratory Effort / Characteristics Non-Labored Spontaneous Non-Labored Spontaneous Spontaneous Short of Breath SOB on Exertion Respiratory Depth Normal Normal Respiratory Pattern Regular Regular Blood Pressure 138/86 Blood Pressure [Right Arm] 138/86 Blood Pressure Mean 103 Blood Pressure Mean [Right Arm] 103 Blood Pressure Position Lying Blood Pressure Position [Right Arm] Lying Pulse Oximetry 96 97 97 Oxygen Delivery Method Nasal Cannula Room Air Nasal Cannula Oxygen Flow Rate 4 3 Sepsis Recent Fever Within 48 Hours No Sepsis New/Unexplained Change in Mental Status No Sepsis Action Taken by Nursing Physician Notified 09/20/21 17:45 09/20/21 18:00 09/20/21 18:27 Temperature Temperature Source Pulse Rate Pulse Rate [Right Finger] 102 H 97 H Pulse Rhythm [Right Finger] Pulse Strength Pulse Strength [Right Finger] Normal Normal Respiratory Rate 18 95 H Respiratory Effort / Characteristics Non-Labored Spontaneous Non-Labored Spontaneous Respiratory Depth Normal Normal Respiratory Pattern Regular Regular Blood Pressure Blood Pressure [Right Arm] 127/82 98/74 L Blood Pressure Mean Blood Pressure Mean [Right Arm] 97 82 Blood Pressure Position Blood Pressure Position [Right Arm] Lying Lying Pulse Oximetry 96 23 L 94 Oxygen Delivery Method Nasal Cannula Nasal Cannula Nasal Cannula Oxygen Flow Rate 4 4 3 Sepsis Recent Fever Within 48 Hours Sepsis New/Unexplained Change in Mental Status Sepsis Action Taken by Nursing 09/20/21 18:54 09/20/21 20:20 09/20/21 20:21 Temperature Temperature Source Pulse Rate Pulse Rate [Right Finger] 103 H 107 H 104 H Pulse Rhythm [Right Finger] Regular Pulse Strength Pulse Strength [Right Finger] Normal Respiratory Rate 17 20 18 Respiratory Effort / Characteristics Non-Labored Spontaneous Non-Labored Spontaneous Respiratory Depth Normal Normal Respiratory Pattern Regular Blood Pressure Blood Pressure [Right Arm] 133/78 Blood Pressure Mean Blood Pressure Mean [Right Arm] 96 Blood Pressure Position Blood Pressure Position [Right Arm] Lying Pulse Oximetry 97 98 100 Oxygen Delivery Method Nasal Cannula Nasal Cannula Nasal Cannula Oxygen Flow Rate 3 4 4 Sepsis Recent Fever Within 48 Hours Sepsis New/Unexplained Change in Mental Status Sepsis Action Taken by Nursing GENERAL: alert, uncomfortable appearing, well nourished, moderate distress, non- toxic EYE EXAM: normal conjunctiva, PERRL and EOM's grossly intact OROPHARYNX: no exudate, no erythema, lips, buccal mucosa, and tongue normal and mucous membranes are moist NECK: supple, no nuchal rigidity, no adenopathy, non-tender LUNGS: Normal chest wall mechanics, no bilateral inspiratory and expiratory wheeze, with fine bibasilar rales, increased work of breathing with prolonged pursed lipped expiration HEART: no murmurs, S1 normal and S2 normal ABDOMEN: abdomen soft, non-tender, normo-active bowel sounds, no masses, no rebound or guarding. BACK: Back is symmetrical on inspection and there is no deformity, no midline tenderness, no CVA tenderness. SKIN: no rashes and no bruising UPPER EXTREMITIES: upper extremities are grossly normal. FROM, nml pulses b/l. LOWER EXTREMITIES: No pitting edema. FROM, nml pulses b/l. Right lower extremity in an orthopedic boot, trace bilateral lower extremity edema noted NEURO EXAM: Normal sensorium, cranial nerves II-XII grossly intact, normal speech, no gross weakness of arms, no gross weakness of legs. Gross sensation intact. Course Course 1711: Patient holding sats, although still with pursed lip expiration. 1717: Patient states LE edema for 2 days. Orthopedic boot on RLE opened. Administered Medications Albuterol (Albut/Ipratrop 3mg/0.5mg Neb 3 Ml Vial) 3 ml INH Q4R [facility] Stop: 10/21/21 18:59 Last Admin: 09/21/21 19:37 Dose: 3 ml Documented by: [id number] Atorvastatin Calcium (Atorvastatin 40 Mg Tab) 40 mg PO QAM [facility] Stop: 10/21/21 08:59 Last Admin: 09/21/21 08:27 Dose: 40 mg Documented by: [id number] Budesonide (Budesonide 0.5 Mg/2 Ml Vial (Pulmicort)) 0.5 mg NEB BIDR [facility] Stop: 10/20/21 22:39 Last Admin: 09/21/21 19:37 Dose: 0.5 mg Documented by: [id number] Admin: 09/21/21 06:54 Dose: 0.5 mg Documented by: [id number] Admin: 09/20/21 23:20 Dose: 0.5 mg Documented by: [id number] Cyanocobalamin (Cyanocobalamin (B-12) 500 Mcg Tablet) 1,000 mcg PO HS [facility] Stop: 10/20/21 22:39 Last Admin: 09/21/21 21:02 Dose: 1,000 mcg Documented by: [id number] Admin: 09/21/21 00:03 Dose: 1,000 mcg Documented by: [id number] Docusate Sodium (Docusate Sodium 100 Mg Cap) 100 mg PO BID [facility] Stop: 10/20/21 22:39 Last Admin: 09/21/21 21:02 Dose: 100 mg Documented by: [id number] Admin: 09/21/21 08:28 Dose: 100 mg Documented by: [id number] Admin: 09/21/21 00:05 Dose: 100 mg Documented by: [id number] Enoxaparin Sodium (Enoxaparin Inj 40 Mg/0.4 Ml Syr) 40 mg SQ Q24H [facility] Stop: 10/21/21 08:59 Last Admin: 09/21/21 08:28 Dose: 40 mg Documented by: [id number] Ferrous Sulfate (Ferrous Sulfate 325 Mg Tab) 325 mg PO BID [facility] Stop: 10/20/21 22:39 Last Admin: 09/21/21 21:02 Dose: 325 mg Documented by: [id number] Admin: 09/21/21 08:28 Dose: 325 mg Documented by: [id number] Admin: 09/21/21 00:04 Dose: 325 mg Documented by: [id number] Folic Acid (Folic Acid 1 Mg Tab) 1 mg PO DAILY [facility] Stop: 10/21/21 08:59 Last Admin: 09/21/21 08:28 Dose: 1 mg Documented by: [id number] Furosemide (Furosemide 20 Mg Tab) 20 mg PO Q2D@0900 [facility] Stop: 10/21/21 08:59 Last Admin: 09/21/21 08:27 Dose: 20 mg Documented by: [id number] Guaifenesin (Guaifenesin 600 Mg Tabcr) 1,200 mg PO BID [facility] Stop: 10/20/21 22:39 Last Admin: 09/21/21 21:02 Dose: 1,200 mg Documented by: [id number] Admin: 09/21/21 08:28 Dose: 1,200 mg Documented by: [id number] Admin: 09/21/21 00:05 Dose: 1,200 mg Documented by: [id number] Azithromycin 500 mg/ Dextrose 255 mls @ 125 mls/hr IV Q24H [facility] Stop: 09/23/21 04:03 Last Infusion: 09/21/21 04:45 Dose: 0 mls/hr Documented by: [id number] Admin: 09/21/21 02:20 Dose: 125 mls/hr Documented by: [id number] Methylprednisolone 60 mg/ (Syringe) 0.96 mls @ 1.5 mls/min IV Q8H [facility] Stop: 10/21/21 01:59 Last Admin: 09/21/21 16:54 Dose: 1.5 mls/min Documented by: [id number] Admin: 09/21/21 08:27 Dose: 1.5 mls/min Documented by: [id number] Admin: 09/21/21 02:20 Dose: 1.5 mls/min Documented by: [id number] Lactobacillus Acidophilus (Advanced Probiotic 1250 Mg Capsule) 2 cap PO QAM [facility] Stop: 10/21/21 08:59 Last Admin: 09/21/21 08:28 Dose: 2 cap Documented by: [id number] Magnesium Oxide (Magnesium Oxide 400 Mg Tab) 400 mg PO QAM [facility] Stop: 10/21/21 08:59 Last Admin: 09/21/21 08:28 Dose: 400 mg Documented by: [id number] Multivitamins (Multivitamin Tab) 1 tab PO QAM [facility] Stop: 10/21/21 08:59 Last Admin: 09/21/21 08:28 Dose: 1 tab Documented by: [id number] Pregabalin (Pregabalin 100 Mg Cap) 100 mg PO BID [facility] Stop: 10/20/21 22:39 Last Admin: 09/21/21 21:02 Dose: 100 mg Documented by: [id number] Admin: 09/21/21 08:30 Dose: 100 mg Documented by: [id number] Admin: 09/20/21 23:51 Dose: 100 mg Documented by: [id number] Quetiapine Fumarate (Quetiapine Fumarate 25 Mg Tablet) 50 mg PO HS [facility] Stop: 10/20/21 22:39 Last Admin: 09/21/21 21:02 Dose: 50 mg Documented by: [id number] Admin: 09/21/21 00:03 Dose: 50 mg Documented by: [id number] Sodium Chloride (Sodium Chloride 1 Gm Tablet) 1 gm PO BID [facility] Stop: 10/20/21 22:39 Last Admin: 09/21/21 21:02 Dose: 1 gm Documented by: [id number] Admin: 09/21/21 08:28 Dose: 1 gm Documented by: [id number] Admin: 09/20/21 23:51 Dose: 1 gm Documented by: [id number] Sodium Chloride (Sodium Chlor 7% 4 Ml Neb) 4 ml NEB BIDR [facility] Stop: 10/21/21 18:59 Last Admin: 09/21/21 19:38 Dose: Not Given Documented by: [id number] Thiamine HCl ([facility]amine Hcl 100 Mg Tab) [facility] [place] Stop: 10/21/21 08:59 Last Admin: 09/21/21 08:28 Dose: 100 mg Documented by: [id number] Venlafaxine HCl (Venlafaxine Hcl Xr 150 Mg Capxr) [facility] [place] Stop: 10/21/21 08:59 Last Admin: 09/21/21 08:28 Dose: 150 mg Documented by: [id number] Discontinued Medications Albuterol (Albut/Ipratrop 3mg/0.5mg Neb 3 Ml Vial) Confirm Administered Dose 3 ml .ROUTE .STK-MED ONE Stop: 09/20/21 17:24 Last Admin: 09/20/21 17:26 Dose: Not Given Documented by: [id number] Albuterol (Albut/Ipratrop 3mg/0.5mg Neb 3 Ml Vial) 3 ml NEB NOW STA; Protocol Stop: 09/20/21 17:24 Last Admin: 09/20/21 17:27 Dose: 3 ml Documented by: [id number] Albuterol (Albuterol 0.083% Nebu Soln 3 Ml Vial) 10 mg NEB NOW STA; Protocol Stop: 09/20/21 20:02 Last Admin: 09/20/21 20:28 Dose: Not Given Documented by: [id number] Albuterol (Albut/Ipratrop 3mg/0.5mg Neb 3 Ml Vial) 12 ml NEB ONE ONE; Protocol Stop: 09/20/21 20:05 Last Admin: 09/20/21 20:19 Dose: 12 ml Documented by: [id number] Albuterol (Albut/Ipratrop 3mg/0.5mg Neb 3 Ml Vial) 3 ml INH Q6R [facility] Stop: 10/21/21 00:59 Last Admin: 09/21/21 12:59 Dose: 3 ml Documented by: [id number] Admin: 09/21/21 06:54 Dose: 3 ml Documented by: [id number] Admin: 09/21/21 00:19 Dose: Not Given Documented by: [id number] Albuterol (Albut/Ipratrop 3mg/0.5mg Neb 3 Ml Vial) Confirm Administered Dose 3 ml .ROUTE .STK-MED ONE Stop: 09/21/21 00:11 Last Admin: 09/21/21 00:19 Dose: 3 ml Documented by: [id number] Sodium Chloride (Nss) 500 mls @ 100 mls/hr IV .Q5H [facility] Stop: 10/20/21 17:14 Last Infusion: 09/20/21 23:33 Dose: 0 mls/hr Documented by: [id number] Admin: 09/20/21 17:42 Dose: 100 mls/hr Documented by: [id number] Doxycycline Hyclate 100 mg/ (Dextrose) 110 mls @ 50 mls/hr IV NOW STA Stop: 09/20/21 20:28 Last Infusion: 09/20/21 21:06 Dose: 0 mls/hr Documented by: [id number] Admin: 09/20/21 18:53 Dose: 50 mls/hr Documented by: [id number] Ioversol (Optiray 320 125ml) 120 ml IV ONCE ONE Stop: 09/20/21 18:46 Last Admin: 09/20/21 18:45 Dose: 120 ml Documented by: [id number] Ipratropium [place] (Ipratropium [place] Neb Soln 0.02% 2.5 Ml Vial) 0.5 mg INH NOW STA Stop: 09/20/21 19:59 Last Admin: 09/20/21 20:43 Dose: Not Given Documented by: [id number] Levalbuterol HCl (Levalbuterol 1.25mg/0.5ml Neb) 1.25 mg INH NOW STA Stop: 09/20/21 19:59 Last Admin: 09/20/21 20:28 Dose: Not Given Documented by: [id number] Methylprednisolone (Methylprednisolone 125 Mg/2 Ml Vial) 60 mg IV NOW STA Stop: 09/20/21 17:54 Last Admin: 09/20/21 18:00 Dose: 60 mg Documented by: [id number] Miscellaneous (Xopenex/Atrovent 1.25mg/0.5mg Neb Combo) 1 ea NEB NOW STA; P rotocol Stop: 09/20/21 19:31 Last Admin: 09/20/21 20:28 Dose: Not Given Documented by: [id number] Critical Care Time Critical Care Time: Yes Total Critical Care Time: 35 Critical care of 35 min performed to assess and manage high likelihood of life- threatening dyspnea, involving labs and imaging performed with assessment to evaluate dyspnea diagnosis with frequent reassessment. This time includes bedside time, treatment discussions with patient/family/consultants, documentation time and excludes procedure time. Medical Decision Making Differential Diagnosis Differential diagnoses includes but is not limited to pneumonia, bronchitis, COPD/Asthma exacerbation, pneumothorax, pulmonary embolism, congestive heart failure, acute coronary syndrome Medical Records Attestation: I reviewed the patient's medical records. Home Medications Current Medication List: was personally reviewed by me Laboratory Data Attestation: I reviewed the patient's lab results. Result diagrams: 09/20/21 17:25 09/20/21 17:25 Lab Results 09/20/21 09/20/21 09/20/21 Range/Units 17:16 17:25 17:25 WBC 8.93 (4.8-10.8) K/uL RBC 4.05 L (4.7-6.1) M/uL Hgb 11.4 L (14.0-18.0) g/dL POC Hgb 12.2 L (14.0-18.0) g/dl Hct 37.1 L (42-52) % POC Hct 36 L (42-52) % MCV 91.6 (80-100) fL MCH 28.1 (25-34) pg MCHC 30.7 L (32-36) g/dL RDW Std Deviation 53.6 H (36.4-46.3) fL RDW Coeff of Jem 16.1 H (11.5-14.5) % Plt Count 270 (130-400) K/uL MPV 9.7 (7.4-10.4) fL Immature Gran % (Auto) 0.1 % Neut % (Auto) 72.5 % Lymph % (Auto) 9.0 % [place] % (Auto) 7.5 % Eos % (Auto) 10.5 % Baso % (Auto) 0.4 % Neut # (Auto) 6.47 (1.4-6.5) K/uL Lymph # (Auto) 0.80 L (1.2-3.4) K/uL [place] # (Auto) 0.67 H (0.11-0.59) K/uL Eos # (Auto) 0.94 H (0-0.5) K/uL Baso # (Auto) 0.04 (0-0.2) K/uL Immature Gran # (Auto) 0.01 (0.00-0.02) K/uL PT 10.5 (9.0-12.0) Seconds INR 1.0 (0.9-1.1) POC pH 7.38 (7.35-7.45) POC pCO2 60 H (35-46) mmHg POC pO2 78 L (80-95) mmHg POC HCO3 36 H (19-24) gurdeep/L POC Total CO2 38 H (24-31) mmol/L POC Base Excess 11.0 H (-9-1.8) gurdeep/L POC ABG O2 Sat 95.0 (90-95) % POC Sodium 140 (135-144) mmol/L Sodium (136-145) mmol/L POC Potassium 4.0 (3.3-5.0) mmol/L Potassium (3.5-5.1) mmol/L Chloride (98-107) mmol/L Carbon Dioxide (21-32) mmol/L Anion Gap (3-11) BUN (6-23) mg/dl Creatinine (0.6-1.4) mg/dl Est Cr Clr Drug Dosing ml/min Est GFR ( Amer) ml/min Est GFR (Non-Af Amer) ml/min BUN/Creatinine Ratio (10-20) Glucose (70-99(Fasting)) mg/dl Calcium (8.5-10.1) mg/dl Magnesium (1.7-2.4) mg/dl Total Bilirubin (0.2-1.0) mg/dl AST (13-39) U/L ALT (7-52) U/L Alkaline Phosphatase (34-104) U/L Troponin I High Sens (0-20) pg/ml B-Natriuretic Peptide (0-100) pg/ml Total Protein (6.0-8.3) gm/dl Albumin (3.4-5.0) gm/dl Globulin (2.5-4.0) gm/dl Albumin/Globulin Ratio (0.9-2) Lipase (11-82) U/L SARS-CoV-2 (PCR) (Negative) Influenza Type A (PCR) (Neg) Influenza Type B (PCR) (Neg) RSV (RT-PCR) (Neg) 09/20/21 09/20/21 09/20/21 Range/Units 17:25 17:25 17:39 WBC (4.8-10.8) K/uL RBC (4.7-6.1) M/uL Hgb (14.0-18.0) g/dL POC Hgb (14.0-18.0) g/dl Hct (42-52) % POC Hct (42-52) % MCV (80-100) fL MCH (25-34) pg MCHC (32-36) g/dL RDW Std Deviation (36.4-46.3) fL RDW Coeff of Jem (11.5-14.5) % Plt Count (130-400) K/uL MPV (7.4-10.4) fL Immature Gran % (Auto) % Neut % (Auto) % Lymph % (Auto) % [place] % (Auto) % Eos % (Auto) % Baso % (Auto) % Neut # (Auto) (1.4-6.5) K/uL Lymph # (Auto) (1.2-3.4) K/uL [place] # (Auto) (0.11-0.59) K/uL Eos # (Auto) (0-0.5) K/uL Baso # (Auto) (0-0.2) K/uL Immature Gran # (Auto) (0.00-0.02) K/uL PT (9.0-12.0) Seconds INR (0.9-1.1) POC pH (7.35-7.45) POC pCO2 (35-46) mmHg POC pO2 (80-95) mmHg POC HCO3 (19-24) gurdeep/L POC Total CO2 (24-31) mmol/L POC Base Excess (-9-1.8) gurdeep/L POC ABG O2 Sat (90-95) % POC Sodium (135-144) mmol/L Sodium 140 (136-145) mmol/L POC Potassium (3.3-5.0) mmol/L Potassium 4.0 (3.5-5.1) mmol/L Chloride 99 (98-107) mmol/L Carbon Dioxide 37 H (21-32) mmol/L Anion Gap 4 (3-11) BUN 15 (6-23) mg/dl Creatinine 0.74 (0.6-1.4) mg/dl Est Cr Clr Drug Dosing 103.3 ml/min Est GFR ( Amer) 109.8 ml/min Est GFR (Non-Af Amer) 94.8 ml/min BUN/Creatinine Ratio 20.3 H (10-20) Glucose 104 H (70-99(Fasting)) mg/dl Calcium 9.3 (8.5-10.1) mg/dl Magnesium 2.0 (1.7-2.4) mg/dl Total Bilirubin 0.8 (0.2-1.0) mg/dl AST 23 (13-39) U/L ALT 15 (7-52) U/L Alkaline Phosphatase 76 (34-104) U/L Troponin I High Sens 3.7 (0-20) pg/ml B-Natriuretic Peptide 30 (0-100) pg/ml Total Protein 7.2 (6.0-8.3) gm/dl Albumin 3.9 (3.4-5.0) gm/dl Globulin 3.3 (2.5-4.0) gm/dl Albumin/Globulin Ratio 1.2 (0.9-2) Lipase 27 (11-82) U/L SARS-CoV-2 (PCR) NEGATIVE (Negative) Influenza Type A (PCR) Negative (Neg) Influenza Type B (PCR) Negative (Neg) RSV (RT-PCR) Negative (Neg) Imaging Data Radiologist's Impression: Chest X-Ray 09/20/21 17:07 XR chest 1V portable CLINICAL HISTORY: shortness of breath COMPARISON STUDY: Chest CT March 08, 2021. Chest radiograph June 17, 2021. FINDINGS: Lung volumes are normal. Lungs are clear. There is no pneumothorax or pleural effusion. Cardiac size is normal. Mediastinal contours are normal. There is no evidence for pulmonary edema. Emphysema is better depicted on prior chest CT. IMPRESSION: No acute cardiopulmonary findings. Emphysema. ACT 112: Negative or not required by law. Electronically signed by: Chaitanya Srivastava M.D. 09/20/2021 5:24 PM Chest CTA 09/20/21 18:17 CT ANGIOGRAPHY OF THE CHEST, PULMONARY EMBOLUS PROTOCOL CLINICAL HISTORY: Shortness of breath. Evaluate for pulmonary embolus. COMPARISON STUDY: Chest CT March 08, 2021. Chest radiograph performed earlier today. TECHNIQUE: Following IV administration of 120 mL of Optiray, helical axial images of the chest were obtained utilizing the pulmonary embolus protocol. Maximal intensity projections and sagittal and coronal reformats were viewed on an independent 3D workstation. IV contrast was administered without complication. Automated exposure control was utilized for the study. A dose lowering technique was utilized adhering to the principles of ALARA. CT DOSE: 814.32 mGy.cm FINDINGS: No pulmonary emboli are identified although the lower lobe segmental and subsegmental pulmonary arteries are suboptimally assessed due to respiratory motion. There is no thoracic aortic dissection. Size of the heart is normal. There is moderate coronary artery calcification. No thoracic lymphadenopathy is present. Bilateral gynecomastia is incidentally noted. Mucus within the trachea as well as the right mainstem bronchus is noted. There is diffuse bronchial wall thickening. Groundglass lower lobe opacities favor atelectasis. Lingular opacity favors scarring. Emphysema is again noted. There is no pneumothorax or pleural effusion. 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 Lateral segment hepatic cyst is noted. IMPRESSION: 1. No pulmonary emboli identified although segmental and subsegmental pulmonary arteries within the lower lobes suboptimally assessed due to respiratory motion. 2. Emphysema. 3. Groundglass opacities within the lower lobes suggestive of emphysema. No consolidation to suggest pneumonia. 4. Secretions within the airways bronchial wall thickening, as described above. ACT 112: Negative or not required by law. Electronically signed by: Chaitanya Srivastava M.D. 09/20/2021 7:22 PM ECG Data Attestation: I personally reviewed and interpreted this ECG as follows: Indication: + SOB/dyspnea Rate (beats per minute): 103 Rhythm: + sinus tachycardia ECG Intervals/blocks: + Normal QRS and + Normal QT ECG [place]: + Normal ECG ST segments: + Normal ST segments MDM Narrative An order was placed for continuous cardiac monitoring. The monitor shows a rate of _106_ with _sinus tachycardia__ rhythm. This is a 70 yo male who presents with worsening shortness of breath for 4 days. Patient with significant COPD/emphysema on home oxygen daily. Patient with worsening cough and increased oxygen requirements in the last few days. Patient placed on CPAP by EMS but was able to be weaned back down to NC here. He was given neb tx, solumedrol. Labs reassuring, negative troponin. No evidence of CHF or pna on cxr. Given surgery and orthopedic boot, CTA performed to evaluate for PE. No PE noted. Patient started on doxycycline for copd exacerbation. We discussed all results at bedside. Patient still reported feeling SOB although decreased WOB and no hypoxia. Case discussed with hospitalist for evaluation and treatment. Impression & Plan Dyspnea, Acute exacerbation of chronic obstructive pulmonary disease (COPD), Chronic respiratory failure with hypoxia, Anemia Discharge Plan Visit Data Chief Complaint: Shortness of Breath/Dyspnea Stated Complaint: shortness of breath ED Provider: Deepti Couch Discharge Problem: Dyspnea, Acute exacerbation of chronic obstructive pulmonary disease (COPD), Chronic respiratory failure with hypoxia, Anemia Patient Disposition: Admitted As Inpatient Discharge Instructions Interventions: ED Discharge Assessment Last Done: 09/20/21 21:30 Discharge Problem: Dyspnea Qualifiers: Dyspnea type: shortness of breath Qualified Code(s): R06.02 - Shortness of breath Anemia Qualifiers: Anemia type: unspecified type Qualified Code(s): D64.9 - Anemia, unspecified
[2021-09-20] MEDS ORDERED: ALBUT/IPRATROP 3MG/0.5MG NEB 3 ML VIAL ONE (17:23)
[2021-09-20] MEDS ORDERED: ALBUT/IPRATROP 3MG/0.5MG NEB 3 ML VIAL NEB STA (17:23)
--- NOTE | 2021-09-20 17:26 | XRay Report ---
XR chest 1V portable CLINICAL HISTORY: shortness of breath COMPARISON STUDY: Chest CT March 08, 2021. Chest radiograph June 17, 2021. FINDINGS: Lung volumes are normal. Lungs are clear. There is no pneumothorax or pleural effusion. Car diac size is normal. Mediastinal contours are normal. There is no evidence for pulmonary edema. Emphy sema is better depicted on prior chest CT. IMPRESSION: No acute cardiopulmonary findings. Emphysema. ACT 112: Negative or not required by law. Electronically signed by: Chaitanya Srivastava M.D. 09/20/2021 5:24 PM
[2021-09-20 17:31] LABS: iSTAT Arterial Blood Gas HCO3 36 meg/L (19-24); iSTAT Arterial Blood Gas pCO2 60 mmHg (35-46); iSTAT Arterial Blood Gas pH 7.38 (7.35-7.45); iSTAT Arterial Blood Gas pO2 78 mmHg (80-95); iSTAT Carbon Dioxide 38 mmol/L (24-31); iSTAT Hematocrit 36 % (42-52); iSTAT Hemoglobin 12.2 g/dl (14.0-18.0); iSTAT Sodium 140 mmol/L (135-144)
[2021-09-20 17:48] LABS: Basophils # (auto) 0.04 K/uL (0-0.2); Basophils % (auto) 0.4 %; Eosinophils # (auto) 0.94 K/uL (0-0.5); Eosinophils % (auto) 10.5 %; Hematocrit (blood only) 37.1 % (42-52); Hemoglobin 11.4 g/dL (14.0-18.0); Immature Granulocytes # (auto) 0.01 K/uL (0.00-0.02); Immature Granulocytes % (auto) 0.1 %; Mean Corpuscular Hemoglobin 28.1 pg (25-34); Mean Corpuscular Hgb Conc 30.7 g/dL (32-36); Mean Corpuscular Volume 91.6 fL (80-100); Mean Platelet Volume 9.7 fL (7.4-10.4); Monocytes # (auto) 0.67 K/uL (0.11-0.59); Monocytes % (auto) 7.5 %; Neutrophils # (auto) 6.47 K/uL (1.4-6.5); Neutrophils % (auto) 72.5 %; Platelet Count 270 K/uL (130-400); RDW Coefficient of Variation 16.1 % (11.5-14.5); RDW Standard Deviation 53.6 fL (36.4-46.3); Red Blood Count 4.05 M/uL (4.7-6.1); White Blood Count 8.93 K/uL (4.8-10.8)
[2021-09-20] MEDS ORDERED: methylPREDNISolone 125 MG/2 ML VIAL IV STA (17:53)
[2021-09-20 17:56] LABS: Prothrombin Time 10.5 Seconds (9.0-12.0)
[2021-09-20 18:08] LABS: Albumin Globulin Ratio 1.2 (0.9-2); Albumin Level 3.9 gm/dl (3.4-5.0); BUN Creatinine Ratio 20.3 (10-20); Bilirubin,Total 0.8 mg/dl (0.2-1.0); Calcium 9.3 mg/dl (8.5-10.1); Creatinine Clr Calc Pharmacy 103.3 ml/min; Est GFR (African American) 109.8 ml/min; Est GFR (Non-African American) 94.8 ml/min; Globulin 3.3 gm/dl (2.5-4.0); Total Protein 7.2 gm/dl (6.0-8.3)
[2021-09-20 18:12] LABS: Troponin I High Sensitivity 3.7 pg/ml (0-20)
[2021-09-20] MEDS ORDERED: DOXYCYCLINE HYCLATE 100 MG in DEXTROSE 5% 100 ML IV STA (18:17)
[2021-09-20 18:24] LABS: Influenza A virus by PCR Negative (Neg); Influenza B virus by PCR Negative (Neg); RSV by PCR Negative (Neg); SARS CoV2 RNA(COVID-19) InHosp NEGATIVE (Negative)
[2021-09-20] MEDS ORDERED: OPTIRAY 320 125ml IV ONE (18:45)
--- NOTE | 2021-09-20 19:24 | CT Scan Report ---
CT ANGIOGRAPHY OF THE CHEST, PULMONARY EMBOLUS PROTOCOL CLINICAL HISTORY: Shortness of breath. Evaluate for pulmonary embolus. COMPARISON STUDY: Chest CT March 08, 2021. Chest radiograph performed earlier today. TECHNIQUE: Following IV administration of 120 mL of Optiray, helical axial images of the chest were o btained utilizing the pulmonary embolus protocol. Maximal intensity projections and sagittal and cor onal reformats were viewed on an independent 3D workstation. IV contrast was administered without co mplication. Automated exposure control was utilized for the study. A dose lowering technique was ut ilized adhering to the principles of ALARA. CT DOSE: 814.32 mGy.cm FINDINGS: No pulmonary emboli are identified although the lower lobe segmental and subsegmental pulm onary arteries are suboptimally assessed due to respiratory motion. There is no thoracic aortic disse ction. Size of the heart is normal. There is moderate coronary artery calcification. No thoracic lymp hadenopathy is present. Bilateral gynecomastia is incidentally noted. Mucus within the trachea as wel l as the right mainstem bronchus is noted. There is diffuse bronchial wall thickening. Groundglass lo wer lobe opacities favor atelectasis. Lingular opacity favors scarring. Emphysema is again noted. The re is no pneumothorax or pleural effusion. 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 Lateral segment hepatic cyst is noted. IMPRESSION: 1. No pulmonary emboli identified although segmental and subsegmental pulmonary arteries within the l ower lobes suboptimally assessed due to respiratory motion. 2. Emphysema. 3. Groundglass opacities within the lower lobes suggestive of emphysema. No consolidation to suggest pneumonia. 4. Secretions within the airways bronchial wall thickening, as described above. ACT 112: Negative or not required by law. Electronically signed by: Chaitanya Srivastava M.D. 09/20/2021 7:22 PM
[2021-09-20] MEDS ORDERED: XOPENEX/ATROVENT 1.25mg/0.5MG NEB COMBO NEB STA (19:30)
[2021-09-20] MEDS ORDERED: IPRATROPIUM BROMIDE NEB SOLN 0.02% 2.5 ML VIAL INH STA (19:58)
[2021-09-20] MEDS ORDERED: LEVALBUTEROL 1.25MG/0.5ML NEB INH STA (19:58)
[2021-09-20] MEDS ORDERED: ALBUTEROL 0.083% NEBU SOLN 3 ML VIAL NEB STA (20:01)
[2021-09-20] MEDS ORDERED: ALBUT/IPRATROP 3MG/0.5MG NEB 3 ML VIAL NEB ONE (20:04)
--- NOTE | 2021-09-20 20:31 | History & Physical Report ---
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 Acute respiratory failure, COPD exacerbation: Baseline oxygen requirement of 3 LNC, however has had increased oxygen demand at home. With prominent accessory muscle use noted on arrival to ER, with hypercapnia on ABG and hypoxia requiring increased supplemental oxygen. CT without evidence of PE or pneumonia. Given poor air movement and inability to take deep breaths at this time will switch inhalers out in favor of Pulmicort Respules nebulizers twice daily. DuoNebs every 6 hours scheduled and every 2 hours as needed for shortness of breath/wheezing. Received Solu-Medrol 60 mg IV x1, continue every 8 hours. Mucinex 1200 mg twice daily scheduled. Goal O2 saturation 88-92%. Consider BIPAP if patient has worsening of hypercapnia / accessory muscle use. Azithromycin 500mg IV x3 days. Patient reports quitting smoking about 4 months ago. Alcohol use disorder, SIADH: History of alcohol use disorder in remission. No evidence of withdrawal at this time, will defer AWSS protocol. Continue sodium chloride tabs BID for SIADH. Chronic venous stasis: Patient and report worsening bilateral LE edema. Patient is on Lasix 20mg every other day. Echo ordered to ensure no element of CHF contributing to peripheral edema/respiratory failure. Anemia: Chronic, continue B12 and iron supplementation. 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 He also reports using his home nebulizers at an increasing amount. On presentation to the ER patient was on CPAP but was quickly de-escalated to about 3 LNC. Patient so far has received DuoNeb 3 mL x 1, methylpred 60 mg IV x1, Doxycycline 100 mg IV x1. Due to swelling in his bilateral lower extremities a CT PE protocol was performed which did not show any evidence of la rge PE, though study reports that subsegmental arteries were not well visualized. No evidence of pneumonia or fluid overload on imaging. Lab work notable for ABG 7.38/60/78/36, labs otherwise normal. COVID, influenza, and RSV testing negative. On my interview patient reports increasing dyspnea and noted to have accessory muscle use so DuoNeb 12 mL ordered at that time with improvement in symptoms. He denies fevers, chest pain, abdominal pain. He endorses chronic left lower quadrant pain secondary to large inguinal hernia that he is awaiting surgical clearance for. He reports that he quit smoking and drinking about 4 months ago, which his corroborates. They both note that his bilateral lower extremities are more swollen recently than normal, and he does have a history of a right trimalleolar fracture that occurred in April and he has been wearing a boot since that time. Allergies Allergy/AdvReac Type Severity Reaction Status Date / Time No Known Allergies Allergy Verified 09/20/21 18:02 Home Medications Medication Instructions Recorded Confirmed Type Lactobacills gasseri-Bifidobac 1 cap PO QAM 02/25/19 09/20/21 History bifidum,longum 1.5 billion cell capsule (Probiotic Colon Support) sodium chloride 1 gram tablet 1 g PO BID #180 tab 09/06/20 09/20/21 Rx ipratropium 0.5 mg-albuterol 3 mg 3 ml INH Q4H PRN #540 ml 12/22/20 09/20/21 Rx (2.5 mg base)/3 mL nebulization soln nebulizer accessories #1 ea 12/22/20 07/06/21 Rx venlafaxine 150 mg 150 mg PO QAM 90 Days #90 cap 01/07/21 09/20/21 Rx capsule,extended release 24 hr cyanocobalamin (vitamin B-12) 1,000 mcg PO HS 03/08/21 09/20/21 History 1,000 mcg tablet (Vitamin B-12) furosemide 20 mg tablet (Lasix) 20 mg PO Q OTHER DAY #15 tab 04/26/21 09/20/21 Rx docusate sodium 100 mg capsule 100 mg PO BID #60 cap 05/03/21 09/20/21 Rx ferrous sulfate 325 mg (65 mg 325 mg PO BID #60 tab 05/03/21 09/20/21 Rx iron) tablet,delayed release multivitamin with folic acid 400 1 tab PO QAM #30 tab 05/03/21 09/20/21 Rx mcg tablet (Daily-[place] (with folic acid)) polyethylene glycol 3350 17 gram 17 g PO DAILY PRN #30 ea 05/03/21 09/20/21 Rx oral powder packet (Miralax) thiamine HCl (vitamin B1) 100 mg 100 mg PO QAM #30 tab 05/03/21 09/20/21 Rx tablet tramadol 50 mg tablet 100 mg PO Q4H PRN #36 tab 05/03/21 09/20/21 Rx pregabalin 100 mg capsule 100 mg PO BID #60 cap 05/30/21 09/20/21 Rx albuterol sulfate 90 mcg/actuation 1 - 2 puff INHALATION Q4H PRN #54 05/31/21 09/20/21 Rx aerosol inhaler gm fluticasone 500 mcg-salmeterol 50 1 inh INHALATION BID #60 ea 05/31/21 09/20/21 Rx mcg/dose blistr powdr for inhalation (Advair Diskus) atorvastatin 40 mg tablet 40 mg PO QAM 06/17/21 09/20/21 History magnesium oxide 400 mg (241.3 mg 400 mg PO QAM 06/17/21 09/20/21 History magnesium) tablet sumatriptan succinate 50 mg tablet 50 mg PO Q2H PRN #9 tab MDD 4 06/17/21 09/20/21 Rx tablets/24hrs umeclidinium 62.5 mcg/actuation 1 inh INHALATION QAM 06/17/21 09/20/21 History blister powder for inhalation (Incruse Ellipta) quetiapine 50 mg tablet (Seroquel) 50 mg PO HS #7 tab 06/20/21 09/20/21 Rx folic acid 1 mg tablet 1 mg PO DAILY 09/20/21 09/20/21 History metoprolol succinate 50 mg 50 mg PO DAILY 09/20/21 09/20/21 History tablet,extended release 24 hr Past Med/Surg History Medical History (Updated 09/21/21 @ 22:39 by Deepti Couch DO) Acute and chronic respiratory failure with hypercapnia Alcohol use disorder, moderate, in early remission Bacteremia Colitis COPD (chronic obstructive pulmonary disease) COPD exacerbation Delirium tremens Gout Hyperlipidemia Hypertension Hypokalemia Hypomagnesemia Hyponatremia Hypoxemia Incarcerated left inguinal hernia Infection of spine DX 5 YEARS AGO (TREATED AT [facility]) Klebsiella pneumoniae infection Low back pain Migraine Neuropathy On home oxygen therapy 3L CONT. Osteoarthritis Right hand fracture Right inguinal hernia Seizure LAST EPISODE LAST MONTH (HOSPITALIZED AT [facility]) ? ETIOLOGY FOLLOWED BY DR. HIGHTOWER Sepsis associated hypotension Tremor BILAT HANDS AND A LITTLE IN BILAT. FEET Surgical History H/O tooth extraction Lower teeth on 04/23/2018 H/O tooth extraction History of colonoscopy History of open reduction and internal fixation (ORIF) procedure FEMUR ?SIDE S/P foot surgery RT/LEFT (HARDWARE INTACT) Family History Father Hypertension Aneurysm Mother Swelling Uncle Myocardial infarction Other No significant family history Denies family history of Ovarian cancer Prostate cancer Breast cancer Colorectal cancer Social History (Updated 09/20/21 @ 20:50 by Kajal Barrientos DO) Smoking Status: Former smoker Tobacco Type: Cigarettes Age Started Using Tobacco: 14; Age Quit Using Tobacco: 69; packs per day: 1; Cigarettes Per Day: 10; Second Hand Exposure: No; Hx Alcohol Use: No Hx Substance Use: No Preferred Language: Uzbek Communication Ability: Effective Visual Impairment: Limited Hearing Ability: Normal Pattern Changer Required: No Beliefs That Will Affect Care: None marital status: Current Living Situation: Spouse Current Living Situation Comment: unknown intubated and sedated current occupational status: retired How many Children do You have: 2 Feels Safe at Home: Yes Safety Concerns: Feels Safe At This Time Childhood Exposure to Second-Hand Smoke: Yes Dental Care, Regularly: No Physical Activity Frequency: Does not Exercise Seatbelt Use: always Sunscreen Use: No Assistive Devices: Cane, Nebulizer, Oxygen - Continuous, Walker and Wheelchair Assistive Devices Comment: boot on right foot Review of Systems Review of Systems: All systems reviewed & are unremarkable except as noted in HPI & below Constitutional: + malaise; no fever and no chills Respiratory: + cough and + dyspnea Cardiovascular: no chest pain, no palpitations and no edema Gastrointestinal: no abdominal pain, no constipation and no diarrhea/loose stools Physical Exam Constitutional: + ill appearing and + thin Eyes: PERRL, conjunctivae normal, anicteric sclerae ENMT: external ear and nose normal, oropharynx normal Neck: normal visual inspection Respiratory: Poor air movement throughout with diffuse wheezing, notable accessory muscle use, 96% on 4LNC Cardiovascular: RRR no murmur, bilateral peripheral nonpitting edema Gastrointestinal (Abdomen): normal bowel sounds, soft, nontender, no hepatosplenomegaly (left large reducible inguinal hernia, nontender) Musculoskeletal: no cyanosis or clubbing, extremities motor strength 5/5 Skin: no rashes, warm and dry Neurologic: AAOx3, normal speech. Bilateral UE, LE, and face without sensory or motor deficits Psychiatric: A+Ox3, euthymic affect Results & Data Results & Data ([facility]) Vital Signs (Past 12 Hours) Vital Signs Temp Pulse Pulse Resp BP BP Pulse Ox 09/20/21 20:21 104 H 18 100 09/20/21 20:20 107 H 20 98 09/20/21 18:54 103 H 17 133/78 97 09/20/21 18:27 94 09/20/21 18:00 97 H 95 H 98/74 L 23 L 09/20/21 17:45 102 H 18 127/82 96 09/20/21 17:27 103 H 16 97 09/20/21 17:09 36.7 C 104 H 20 138/86 97 09/20/21 16:59 36.7 C 118 H 23 138/86 96 Code Status & VTE Plan VTE Prophylaxis Plan VTE Prophylaxis will be ordered: Yes Supervising Physician Co-Signing Physician Notes Attending addendum: I have physically seen this patient, have supervised the medical residents activities, and agree with the H&P unless as otherwise noted. Assessment and Plan: Acute respiratory failure with hypoxia/COPD exacerbation/3 L oxygen dependency- Duonebs every 4 hours while awake and every 2 hours when necessary. Mucinex 1200 mg p.o. twice daily Methylprednisolone 60 mg IV every 8 hours Azithromycin 500 mg IV daily x3 days Tobacco cessation 4 months ago History of alcohol abuse/SIADH- In remission Continue sodium chloride twice daily Remaining orders and notations as noted Resident Activity Tracking Resident Involvement: Resident Care Provided Care Provided: Adult [facility]
[2021-09-20] MEDS ORDERED: ALBUT/IPRATROP 3MG/0.5MG NEB 3 ML VIAL NEB PRN (22:40)
[2021-09-20] MEDS ORDERED: traMADol HCL 50 MG TABLET PO PRN (22:40)
[2021-09-20] MEDS ORDERED: POLYETHYLENE (MIRALAX) 17 GM PACK PO PRN (22:40)
[2021-09-20] MEDS ORDERED: ONDANSETRON INJ 2 MG/ML 2 ML VIAL IV PRN (22:40)
[2021-09-20] MEDS ORDERED: ACETAMINOPHEN 325 MG TAB PO PRN (22:40)
[2021-09-20] MEDS: BUDESONIDE 0.5 MG/2 ML VIAL (PULMICORT) NEB SCH (23:20)
[2021-09-20] MEDS: SODIUM CHLORIDE 1 GM TABLET PO SCH (23:51)
[2021-09-20] MEDS: PREGABALIN 100 MG CAP PO SCH (23:51)
[2021-09-21] MEDS: CYANOCOBALAMIN (B-12) 500 MCG TABLET PO SCH ×2 (00:03→21:02)
[2021-09-21] MEDS: QUEtiapine FUMARATE 25 MG TABLET PO SCH ×2 (00:03→21:02)
[2021-09-21] MEDS: FERROUS SULFATE 325 MG TAB PO SCH ×3 (00:04→21:02)
[2021-09-21] MEDS: guaiFENesin 600 MG TABCR PO SCH ×3 (00:05→21:02)
[2021-09-21] MEDS: DOCUSATE SODIUM 100 MG CAP PO SCH ×3 (00:05→21:02)
[2021-09-21] MEDS ORDERED: ALBUT/IPRATROP 3MG/0.5MG NEB 3 ML VIAL ONE (00:10)
[2021-09-21] MEDS: ALBUT/IPRATROP 3MG/0.5MG NEB 3 ML VIAL INH SCH ×5 (00:19→22:28)
[2021-09-21] MEDS ORDERED: methylPREDNISolone 125 MG/2 ML VIAL IV SCH (02:00)
[2021-09-21] MEDS: methylPREDNISolone 60 MG in SYRINGE 0 ML IV SCH ×3 (02:20→16:54)
[2021-09-21] MEDS: AZITHROMYCIN 500 MG in DEXTROSE 5% 250 ML IV SCH (02:20)
[2021-09-21] MEDS: BUDESONIDE 0.5 MG/2 ML VIAL (PULMICORT) NEB SCH ×2 (06:54→19:37)
[2021-09-21] MEDS: FUROSEMIDE 20 MG TAB PO SCH (08:27)
[2021-09-21] MEDS: ATORVASTATIN 40 MG TAB PO SCH (08:27)
[2021-09-21] MEDS: THIAMINE HCL 100 MG TAB PO SCH (08:28)
[2021-09-21] MEDS: FOLIC ACID 1 MG TAB PO SCH (08:28)
[2021-09-21] MEDS: MULTIVITAMIN TAB PO SCH (08:28)
[2021-09-21] MEDS: SODIUM CHLORIDE 1 GM TABLET PO SCH ×2 (08:28→21:02)
[2021-09-21] MEDS: ADVANCED PROBIOTIC 1250 MG CAPSULE PO SCH (08:28)
[2021-09-21] MEDS: MAGNESIUM OXIDE 400 MG TAB PO SCH (08:28)
[2021-09-21] MEDS: ENOXAPARIN INJ 40 MG/0.4 ML SYR SQ SCH (08:28)
[2021-09-21] MEDS: VENLAFAXINE HCL XR 150 MG CAPXR PO SCH (08:28)
[2021-09-21] MEDS: PREGABALIN 100 MG CAP PO SCH ×2 (08:30→21:02)
--- NOTE | 2021-09-21 09:39 | Medical Student Progress Note ---
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 Acute respiratory failure, COPD exacerbation: * Baseline oxygen requirement of 3 LNC, however has had increased oxygen demand at home. * CTA without evidence of PE or pneumonia. * Continue Pulmicort Respules nebulizers twice daily. * DuoNebs every 4 hours scheduled and every 2 hours as needed for shortness of breath/wheezing. * Continue Solu-Medrol 60 mg IV every 8 hours. * Mucinex 1200 mg twice daily scheduled. * Goal O2 saturation 88-92%. Consider BIPAP if patient has worsening of hypercapnia / accessory muscle use. * S/p 1x doxycycline in ED. Azithromycin 500mg IV, day 2 * Hypertonic saline nebs BID * Patient reports cutting back on smoking a few months ago from 2ppd for 56 years. Reports about 2 cigarettes per week. Continue cessation counseling. Chronic venous stasis: * Patient and report worsening bilateral LE edema. * Continue Lasix 20mg every other day. * Echo ordered to ensure no element of CHF contributing to peripheral edema/respiratory failure. Alcohol use disorder, SIADH: chronic * History of alcohol use disorder in remission. * No evidence of withdrawal at this time, will defer AWSS protocol. * Follows with director employment outpatient * Continue sodium chloride tabs BID for SIADH. Anemia: Chronic * Continue B12 and iron supplementation. * Follow CBC Code: Full FENGI: heart healthy, low sodium diet DVT ppx: Lovenox 40 unit subq Admission and Anticipated Discharge Date Admission Date: September 20, 2021 Supervising Attestation I personally examined the patient and verified all hurley points of history and exam, discussed case, and agree with decision making with Roosevelt Pennington MS2 Feeling better than whenever he came in, but still significant dyspnea on exertion. Less at rest but still some off-and-on. Nebulizers helped a good bit. Vitals noted, in general he is awake and alert pleasant no distress. HEENT normocephalic atraumatic mucous membranes moist. Diffuse wheezing throughout no rales, some rhonchi with cough. Skin shows no rashes no pallor or icterus. Neuro without focal deficits. COPD exacerbationno pneumonia. Continue steroids and Zithromax, continue inhalersgiven his dyspnea is still fairly persistenttight nebulizers. Otherwise as above. Subjective Doing well this morning. No concerns or questions. Ate breakfast. Feels comfortable resting in bed but becomes short of breath with minimal ambulation or prolonged conversation. Cough present with increased sputum production. Wheezing present. No fever/chills. No chest discomfort or discomfort with inspiration. Review of Systems Constitutional: as per Subjective / HPI Physical Exam Constitutional: Thin appearing male. Resting in bed. No acute distress. AAOx3. Respiratory: + cough, able to speak in complete sentences, + tachypneic, + prolonged expiratory phase and + audible wheezes Auscultation: + diminished lung sounds (at lower lobes bilaterally ), + rhonchi, + wheezes and + abnormal I/E ratio No accessory muscle use. Transmitted upper breath sounds Cardiovascular: Rate/Rhythm: regular rhythm and + tachycardic Heart Sounds: normal S1 and normal S2 Right-sided peripheral nonpitting edema. Gastrointestinal (Abdomen): normal bowel sounds, soft, nontender, no hepatosplenomegaly (large left inguinal hernia, nontender) Results & Data ([facility]) Vital Signs (Past 12 Hours) Vital Signs Temp Pulse Pulse Resp BP Pulse Ox 09/21/21 06:55 104 H 18 98 09/21/21 02:58 36.4 C L 105 H 18 127/75 94 09/21/21 00:20 108 H 20 95 09/21/21 00:00 117 H 09/20/21 22:59 111 H 19 95 09/20/21 21:51 37.1 C 122 H 25 H 145/82 H 98
--- NOTE | 2021-09-21 11:29 | Electrocardiogram Report ---
Test Reason : Blood Pressure : / mmHG Vent. Rate : 103 BPM Atrial Rate : 103 BPM P-R Int : 182 ms QRS Dur : 064 ms QT Int : 316 ms P-R-T Axes : 070 -08 029 degrees QTc Int : 413 ms Sinus tachycardia Otherwise Normal ECG When compared with ECG of 17-JUN-2021 11:46, Questionable change in initial forces of Inferior leads Confirmed by Salas Hernandez ([id number]) on 09/21/2021 11:29:06 AM Referred By: REFERRED SELF Confirmed By:Salas Hernandez
--- NOTE | 2021-09-21 14:40 | XCELERA ---
[id number]
[2021-09-21] MEDS: SODIUM CHLOR 7% 4 ML NEB NEB SCH (19:38)
[2021-09-22] MEDS: AZITHROMYCIN 500 MG in DEXTROSE 5% 250 ML IV SCH (01:44)
[2021-09-22] MEDS: methylPREDNISolone 60 MG in SYRINGE 0 ML IV SCH ×3 (02:03→17:36)
[2021-09-22] MEDS: ALBUT/IPRATROP 3MG/0.5MG NEB 3 ML VIAL INH SCH ×6 (03:52→22:58)
--- NOTE | 2021-09-22 04:13 | Billing Data ---
Date of Service September 22, 2021 Coding Level of Care Code 93299 Initial Inpt Care Lvl 3
--- NOTE | 2021-09-22 05:57 | Hospitalist Progress Note ---
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 Improving. Acute respiratory failure, COPD exacerbation: * Baseline oxygen requirement of 3 LNC, however has had increased oxygen demand at home. * CTA without evidence of PE or pneumonia. * Continue Pulmicort Respules nebulizers twice daily. * DuoNebs every 4 hours scheduled and every 2 hours as needed for shortness of breath/wheezing. * Continue Solu-Medrol 60 mg IV every 8 hours. * Mucinex 1200 mg twice daily scheduled. * Goal O2 saturation 88-92%. Consider BIPAP if patient has worsening of hypercapnia / accessory muscle use. * S/p 1x doxycycline in ED. Azithromycin 500mg IV, day 2 * Hypertonic saline nebs BID * Patient reports cutting back on smoking a few months ago from 2ppd for 56 years. Reports about 2 cigarettes per week. Continue cessation counseling. Chronic venous stasis: * Patient and report worsening bilateral LE edema. * Continue Lasix 20mg every other day. * Echo ordered to ensure no element of CHF contributing to peripheral edema/respiratory failure. EF 65-70. Mild LVH. NO sig change from 04/25/19. Sinus tachycardia * Appears chronic. Respiratory failure possibly contributing. Continue telemetry . Alcohol use disorder, SIADH: chronic: * History of alcohol use disorder in remission. * No evidence of withdrawal at this time, will defer AWSS protocol. * Follows with powdered sugar pulverizer operator outpatient * Continue sodium chloride tabs BID for SIADH. Anemia: Chronic: * Continue B12 and iron supplementation. * Follow CBC Code: Full FENGI: heart healthy, low sodium diet DVT ppx: Lovenox 40 unit subq (2) COPD exacerbation: (3) Alcohol use disorder, moderate, in early remission: (4) Tobacco abuse: (5) Essential hypertension: (6) Superior mesenteric artery aneurysm: (7) Chronic venous stasis: (8) SIADH (syndrome of inappropriate ADH production): Admission and Anticipated Discharge Date Admission Date: September 20, 2021 Supervising Physician Co-Signing Physician Notes I personally examined the patient and verified all hurley points of history and exam, discussed case, and agree with decision making with Dr Garcia. Still significant dyspnea on exertion, at rest he is doing a little bit better. Vitals noted, in general he is awake and alert pleasant no distress. HEENT normocephalic atraumatic mucous membranes moist. Lungs diminished throughout faint rhonchi but definitely much better than yesterday's diffuse wheezing. No accessory muscle use good effort no conversational dyspnea. COPD exacerbationwith suspected severe underlying lung diseasecontinue steroids inhalers Zithromax supportive caredefinitely just needs more time. Does appear to be a bit improved compared to yesterday. DVT prophylaxisLovenox Otherwise as above Subjective Patient today is feeling lightly better from resp standpoint. Still w/ severe KELLEY. Not ready for home. No recent bm, but not constipated. prod cough, thick sputum, unsure color. no f/c or other ros. Unsure if the hypertonic neb and increased freq nebs last night helped. Review of Systems Review of Systems: All systems reviewed & are unremarkable except as noted in HPI & below Physical Exam Physical Exam: General: Grossly A&O. NAD. Cooperative. HEENT: Atraumatic, normocephalic. EOMI Pulm: Slightly better air entry compared to yesterday's exam. Loud exp wheezes/rhonchi w/ loud transmitted upper airway sounds. No significant acc muscle use. Cardiac: RRR, -mrg. No pitting edema appreciated of BLE. R diaz w/ slightly edematous looking appearance. Abdominal: Nontender, nondistended, soft. Integ: Mild superficial wounds on shins. Results & Data Results & Data ([facility]) Vital Signs (Past 12 Hours) Vital Signs Temp Pulse Pulse Resp BP BP Pulse Ox 09/22/21 03:52 84 20 92 09/22/21 03:17 36.7 C 108 H 18 116/58 L 92 09/21/21 23:16 107 H 09/21/21 23:11 36.8 C 75 20 115/51 L 93 09/21/21 22:32 103 H 18 93 09/21/21 19:48 37.2 C 113 H 18 143/78 H 92 09/21/21 19:38 115 H 30 H 92 Resident Activity Tracking Resident Involvement: Resident Care Provided Care Provided: Adult [facility] Medicine
[2021-09-22 06:14] LABS: Hematocrit (blood only) 33.9 % (42-52); Hemoglobin 10.8 g/dL (14.0-18.0); Immature Granulocytes # (auto) 0.02 K/uL (0.00-0.02); Immature Granulocytes % (auto) 0.2 %; Lymphocytes # (auto) 0.51 K/uL (1.2-3.4); Lymphocytes % (auto) 5.4 %; Mean Corpuscular Hemoglobin 28.3 pg (25-34); Mean Corpuscular Hgb Conc 31.9 g/dL (32-36); Mean Corpuscular Volume 88.7 fL (80-100); Mean Platelet Volume 9.9 fL (7.4-10.4); Monocytes # (auto) 0.36 K/uL (0.11-0.59); Monocytes % (auto) 3.8 %; Neutrophils # (auto) 8.59 K/uL (1.4-6.5); Neutrophils % (auto) 90.6 %; Platelet Count 266 K/uL (130-400); RDW Coefficient of Variation 16.2 % (11.5-14.5); RDW Standard Deviation 51.8 fL (36.4-46.3); Red Blood Count 3.82 M/uL (4.7-6.1); White Blood Count 9.48 K/uL (4.8-10.8)
[2021-09-22 06:34] LABS: BUN Creatinine Ratio 36.8 (10-20); Calcium 8.9 mg/dl (8.5-10.1); Est GFR (African American) 108.7 ml/min; Est GFR (Non-African American) 93.7 ml/min; Potassium 4.1 mmol/L (3.5-5.1)
[2021-09-22] MEDS: BUDESONIDE 0.5 MG/2 ML VIAL (PULMICORT) NEB SCH ×2 (07:01→19:14)
[2021-09-22] MEDS: SODIUM CHLOR 7% 4 ML NEB NEB SCH ×2 (07:02→19:14)
[2021-09-22] MEDS: MULTIVITAMIN TAB PO SCH (07:53)
[2021-09-22] MEDS: SODIUM CHLORIDE 1 GM TABLET PO SCH ×2 (07:53→20:16)
[2021-09-22] MEDS: FOLIC ACID 1 MG TAB PO SCH (07:53)
[2021-09-22] MEDS: VENLAFAXINE HCL XR 150 MG CAPXR PO SCH (07:53)
[2021-09-22] MEDS: MAGNESIUM OXIDE 400 MG TAB PO SCH (07:53)
[2021-09-22] MEDS: ATORVASTATIN 40 MG TAB PO SCH (07:53)
[2021-09-22] MEDS: ADVANCED PROBIOTIC 1250 MG CAPSULE PO SCH (07:53)
[2021-09-22] MEDS: THIAMINE HCL 100 MG TAB PO SCH (07:53)
[2021-09-22] MEDS: ENOXAPARIN INJ 40 MG/0.4 ML SYR SQ SCH (07:54)
[2021-09-22] MEDS: FERROUS SULFATE 325 MG TAB PO SCH ×2 (07:54→20:16)
[2021-09-22] MEDS: guaiFENesin 600 MG TABCR PO SCH ×2 (07:54→20:16)
[2021-09-22] MEDS: DOCUSATE SODIUM 100 MG CAP PO SCH ×2 (07:54→20:16)
[2021-09-22] MEDS: FLUTICASONE PROPIONATE NA SPR 16 GM BTL NAE SCH (07:55)
[2021-09-22] MEDS: PREGABALIN 100 MG CAP PO SCH ×2 (07:56→20:16)
--- NOTE | 2021-09-22 18:32 | Billing Data ---
Date of Service September 22, 2021 Coding Level of Care Code 16268 Subseq Hosp Care Lvl 3
--- NOTE | 2021-09-22 18:35 | Billing Data ---
Date of Service September 21, 2021 Coding Level of Care Code 74781 Subseq Hosp Care Lvl 3
[2021-09-22] MEDS: CYANOCOBALAMIN (B-12) 500 MCG TABLET PO SCH (20:16)
[2021-09-22] MEDS: QUEtiapine FUMARATE 25 MG TABLET PO SCH (20:16)
[2021-09-22] MEDS: SUMAtriptan succinate 50 MG TAB PO PRN (22:15)
[2021-09-23] MEDS: methylPREDNISolone 60 MG in SYRINGE 0 ML IV SCH ×3 (01:50→17:05)
[2021-09-23] MEDS: AZITHROMYCIN 500 MG in DEXTROSE 5% 250 ML IV SCH (01:50)
[2021-09-23] MEDS: ALBUT/IPRATROP 3MG/0.5MG NEB 3 ML VIAL INH SCH ×6 (02:03→22:43)
[2021-09-23] MEDS: BUDESONIDE 0.5 MG/2 ML VIAL (PULMICORT) NEB SCH ×2 (07:17→19:17)
[2021-09-23] MEDS: SODIUM CHLOR 7% 4 ML NEB NEB SCH ×2 (07:36→19:17)
[2021-09-23 07:53] LABS: Hematocrit (blood only) 36.2 % (42-52); Hemoglobin 11.4 g/dL (14.0-18.0); Immature Granulocytes # (auto) 0.02 K/uL (0.00-0.02); Immature Granulocytes % (auto) 0.2 %; Lymphocytes # (auto) 0.56 K/uL (1.2-3.4); Lymphocytes % (auto) 6.5 %; Mean Corpuscular Hemoglobin 28.3 pg (25-34); Mean Corpuscular Hgb Conc 31.5 g/dL (32-36); Mean Corpuscular Volume 89.8 fL (80-100); Mean Platelet Volume 10.1 fL (7.4-10.4); Monocytes # (auto) 0.31 K/uL (0.11-0.59); Monocytes % (auto) 3.6 %; Neutrophils # (auto) 7.77 K/uL (1.4-6.5); Neutrophils % (auto) 89.7 %; Platelet Count 273 K/uL (130-400); RDW Coefficient of Variation 16.3 % (11.5-14.5); RDW Standard Deviation 53.5 fL (36.4-46.3); Red Blood Count 4.03 M/uL (4.7-6.1); White Blood Count 8.66 K/uL (4.8-10.8)
[2021-09-23] MEDS: MAGNESIUM OXIDE 400 MG TAB PO SCH (08:05)
[2021-09-23] MEDS: FERROUS SULFATE 325 MG TAB PO SCH ×2 (08:05→20:47)
[2021-09-23] MEDS: THIAMINE HCL 100 MG TAB PO SCH (08:05)
[2021-09-23] MEDS: MULTIVITAMIN TAB PO SCH (08:05)
[2021-09-23] MEDS: FOLIC ACID 1 MG TAB PO SCH (08:05)
[2021-09-23] MEDS: SODIUM CHLORIDE 1 GM TABLET PO SCH ×2 (08:05→20:46)
[2021-09-23] MEDS: FUROSEMIDE 20 MG TAB PO SCH (08:05)
[2021-09-23] MEDS: guaiFENesin 600 MG TABCR PO SCH ×2 (08:06→20:46)
[2021-09-23] MEDS: ADVANCED PROBIOTIC 1250 MG CAPSULE PO SCH (08:06)
[2021-09-23] MEDS: VENLAFAXINE HCL XR 150 MG CAPXR PO SCH (08:06)
[2021-09-23] MEDS: ENOXAPARIN INJ 40 MG/0.4 ML SYR SQ SCH (08:06)
[2021-09-23] MEDS: FLUTICASONE PROPIONATE NA SPR 16 GM BTL NAE SCH (08:06)
[2021-09-23] MEDS: DOCUSATE SODIUM 100 MG CAP PO SCH ×2 (08:06→20:47)
[2021-09-23] MEDS: ATORVASTATIN 40 MG TAB PO SCH (08:06)
[2021-09-23] MEDS: PREGABALIN 100 MG CAP PO SCH ×2 (08:08→20:45)
[2021-09-23 08:10] LABS: BUN Creatinine Ratio 38.4 (10-20); Creatinine Clr Calc Pharmacy 104.7 ml/min; Est GFR (African American) 110.5 ml/min; Est GFR (Non-African American) 95.3 ml/min; Potassium 4.3 mmol/L (3.5-5.1)
--- NOTE | 2021-09-23 09:06 | Hospitalist Progress Note ---
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 Improving. Acute respiratory failure, COPD exacerbation: * Baseline oxygen requirement of 4 LNC, however has had increased oxygen demand at home. * CTA without evidence of PE or pneumonia. * Continue Pulmicort Respules nebulizers twice daily. * DuoNebs every 4 hours scheduled and every 2 hours as needed for shortness of breath/wheezing. * Continue Solu-Medrol 60 mg IV every 8 hours. * Mucinex 1200 mg twice daily scheduled. * Goal O2 saturation 88-92%. Consider BIPAP if patient has worsening of hypercapnia / accessory muscle use. * S/p 1x doxycycline in ED. Azithromycin 500mg IV, day 3, july d/c tomorrow * Hypertonic saline nebs BID * Patient reports cutting back on smoking a few months ago from pd for 56 years. Reports about 2 cigarettes per week. Continue cessation counseling. Chronic venous stasis: * Patient and report worsening bilateral LE edema. * Continue Lasix 20mg every other day. * Echo ordered to ensure no element of CHF contributing to peripheral edema/respiratory failure. EF 65-70. Mild LVH. NO sig change from 04/25/19. * Ordered SREE stockings Sinus tachycardia * Appears chronic. Respiratory failure possibly contributing. Continue telemetry. Alcohol use disorder, SIADH: chronic: * History of alcohol use disorder in remission. * No evidence of withdrawal at this time, will defer AWSS protocol. * Follows with dog handler outpatient * Continue sodium chloride tabs BID for SIADH. Anemia: Chronic: * Continue B12 and iron supplementation. * Follow CBC Code: Full FENGI: heart healthy, low sodium diet DVT ppx: Lovenox 40 unit subq (2) COPD exacerbation: (3) Alcohol use disorder, moderate, in early remission: (4) Tobacco abuse: (5) Essential hypertension: (6) Superior mesenteric artery aneurysm: (7) Chronic venous stasis: (8) SIADH (syndrome of inappropriate ADH production): Admission and Anticipated Discharge Date Admission Date: September 20, 2021 Supervising Physician Co-Signing Physician Notes I personally examined the patient and verified all hurley points of history and exam, discussed case, and agree with decision making with Dr Garcia. Breathing continues to feel little better. Definitely mostly dyspnea on exertion, at rest is more or less back to baseline, but he notes that even standing at the bedside to void creates significant dyspnea that takes a little while to improve. Vitals noted, in general he is awake and alert pleasant no distress. HEENT normocephalic atraumatic mucous membranes moist. Breathing unlabored no accessory muscle use good effort no conversational dyspnea good effort COPD exacerbationwith suspected severe underlying lung diseasecontinue steroids inhalers Zithromax supportive careshowing slow improvement, stable for transfer to medical. Continue current care otherwise DVT prophylaxisLovenox Otherwise as above Subjective Patient seen at bedside calm comfortable cooperative, he states he is currently on 4L O2 which is his home baseline, states he feels fairly close to his baseline but still requires the steroids in hospital. Patient states he gets SOB on exertion while on oxygen, which is his baseline at home. Patient able to describe his home nebulizer and inhaler regime, states he is compliant. He notes increased swelling on his legs Review of Systems Review of Systems: Positive SOB Negative fever chills Negative headache dizziness Negative chest pain palpitations Negative nausea vomitting diarrhea constipation Negative numbness tingling rash swelling Physical Exam Constitutional: WD/WN, vitals as above Eyes: PERRL, conjunctivae normal, anicteric sclerae ENMT: external ear and nose normal, oropharynx normal Neck: trachea midline, no thyromegaly Respiratory: Auscultation: + wheezes (throughout); no crackles Cardiovascular: RRR, no murmur, no edema nonpitting edema noted on b/l LE Chest (Breasts): Chest: normal inspection of chest Gastrointestinal (Abdomen): normal bowel sounds, soft, nontender, no hepatosplenomegaly Skin: no rashes, warm and dry Psychiatric: A+Ox3, euthymic affect Results & Data Results & Data ([facility]) Vital Signs (Past 12 Hours) Vital Signs Temp Pulse Pulse Resp BP Pulse Ox 09/23/21 07:54 36.3 C L 93 H 20 152/87 H 96 09/23/21 07:21 108 H 30 H 92 09/23/21 03:54 36.6 C 79 18 122/75 95 09/23/21 02:03 83 20 92 09/22/21 23:37 36.6 C 88 18 130/85 96 09/22/21 23:08 100 H 09/22/21 22:59 96 H 20 95 Diagnostic Findings Laboratory Results WBC 8.66 K/uL (4.8-10.8) 09/23/21 07:04 RBC 4.03 M/uL (4.7-6.1) L 09/23/21 07:04 Hgb 11.4 g/dL (14.0-18.0) L 09/23/21 07:04 POC Hgb 12.2 g/dl (14.0-18.0) L 09/20/21 17:16 Hct 36.2 % (42-52) L 09/23/21 07:04 POC Hct 36 % (42-52) L 09/20/21 17:16 MCV 89.8 fL (80-100) 09/23/21 07:04 MCH 28.3 pg (25-34) 09/23/21 07:04 MCHC 31.5 g/dL (32-36) L 09/23/21 07:04 RDW Std Deviation 53.5 fL (36.4-46.3) H 09/23/21 07:04 RDW Coeff of Jem 16.3 % (11.5-14.5) H 09/23/21 07:04 Plt Count 273 K/uL (130-400) 09/23/21 07:04 MPV 10.1 fL (7.4-10.4) 09/23/21 07:04 Immature Gran % (Auto) 0.2 % 09/23/21 07:04 Neut % (Auto) 89.7 % 09/23/21 07:04 Lymph % (Auto) 6.5 % 09/23/21 07:04 [place] % (Auto) 3.6 % 09/23/21 07:04 Eos % (Auto) 0.0 % 09/23/21 07:04 Baso % (Auto) 0.0 % 09/23/21 07:04 Neut # (Auto) 7.77 K/uL (1.4-6.5) H 09/23/21 07:04 Lymph # (Auto) 0.56 K/uL (1.2-3.4) L 09/23/21 07:04 [place] # (Auto) 0.31 K/uL (0.11-0.59) 09/23/21 07:04 Eos # (Auto) 0.00 K/uL (0-0.5) 09/23/21 07:04 Baso # (Auto) 0.00 K/uL (0-0.2) 09/23/21 07:04 Immature Gran # (Auto) 0.02 K/uL (0.00-0.02) 09/23/21 07:04 PT 10.5 Seconds (9.0-12.0) 09/20/21 17:25 INR 1.0 (0.9-1.1) 09/20/21 17:25 POC pH 7.38 (7.35-7.45) 09/20/21 17:16 POC pCO2 60 mmHg (35-46) H 09/20/21 17:16 POC pO2 78 mmHg (80-95) L 09/20/21 17:16 POC HCO3 36 gurdeep/L (19-24) H 09/20/21 17:16 POC Total CO2 38 mmol/L (24-31) H 09/20/21 17:16 POC Base Excess 11.0 gurdeep/L (-9-1.8) H 09/20/21 17:16 POC ABG O2 Sat 95.0 % (90-95) 09/20/21 17:16 POC Sodium 140 mmol/L (135-144) 09/20/21 17:16 Sodium 138 mmol/L (136-145) 09/23/21 07:04 POC Potassium 4.0 mmol/L (3.3-5.0) 09/20/21 17:16 Potassium 4.3 mmol/L (3.5-5.1) 09/23/21 07:04 Chloride 101 mmol/L (98-107) 09/23/21 07:04 Carbon Dioxide 34 mmol/L (21-32) H 09/23/21 07:04 Anion Gap 3 (3-11) 09/23/21 07:04 BUN 28 mg/dl (6-23) H 09/23/21 07:04 Creatinine 0.73 mg/dl (0.6-1.4) 09/23/21 07:04 Est Cr Clr Drug Dosing 104.7 ml/min 09/23/21 07:04 Est GFR ( Amer) 110.5 ml/min 09/23/21 07:04 Est GFR (Non-Af Amer) 95.3 ml/min 09/23/21 07:04 BUN/Creatinine Ratio 38.4 (10-20) H 09/23/21 07:04 Glucose 111 mg/dl (70-99(Fasting)) H 09/23/21 07:04 Calcium 9.0 mg/dl (8.5-10.1) 09/23/21 07:04 Magnesium 2.0 mg/dl (1.7-2.4) 09/20/21 17:25 Total Bilirubin 0.8 mg/dl (0.2-1.0) 09/20/21 17:25 AST 23 U/L (13-39) 09/20/21 17:25 ALT 15 U/L (7-52) 09/20/21 17:25 Alkaline Phosphatase 76 U/L (34-104) 09/20/21 17:25 Troponin I High Sens 3.7 pg/ml (0-20) 09/20/21 17:25 B-Natriuretic Peptide 30 pg/ml (0-100) 09/20/21 17:39 Total Protein 7.2 gm/dl (6.0-8.3) 09/20/21 17:25 Albumin 3.9 gm/dl (3.4-5.0) 09/20/21 17:25 Globulin 3.3 gm/dl (2.5-4.0) 09/20/21 17:25 Albumin/Globulin Ratio 1.2 (0.9-2) 09/20/21 17:25 Lipase 27 U/L (11-82) 09/20/21 17:25 SARS-CoV-2 (PCR) NEGATIVE (Negative) 09/20/21 17:25 Influenza Type A (PCR) Negative (Neg) 09/20/21 17:25 Influenza Type B (PCR) Negative (Neg) 09/20/21 17:25 RSV (RT-PCR) Negative (Neg) 09/20/21 17:25 Impressions Chest X-Ray 09/20/21 17:07 XR chest 1V portable CLINICAL HISTORY: shortness of breath COMPARISON STUDY: Chest CT March 08, 2021. Chest radiograph June 17, 2021. FINDINGS: Lung volumes are normal. Lungs are clear. There is no pneumothorax or pleural effusion. Cardiac size is normal. Mediastinal contours are normal. There is no evidence for pulmonary edema. Emphysema is better depicted on prior chest CT. IMPRESSION: No acute cardiopulmonary findings. Emphysema. ACT 112: Negative or not required by law. Electronically signed by: Chaitanya Srivastava M.D. 09/20/2021 5:24 PM Chest CTA 09/20/21 18:17 CT ANGIOGRAPHY OF THE CHEST, PULMONARY EMBOLUS PROTOCOL CLINICAL HISTORY: Shortness of breath. Evaluate for pulmonary embolus. COMPARISON STUDY: Chest CT March 08, 2021. Chest radiograph performed earlier today. TECHNIQUE: Following IV administration of 120 mL of Optiray, helical axial images of the chest were obtained utilizing the pulmonary embolus protocol. Maximal intensity projections and sagittal and coronal reformats were viewed on an independent 3D workstation. IV contrast was administered without complication. Automated exposure control was utilized for the study. A dose lowering technique was utilized adhering to the principles of ALARA. CT DOSE: 814.32 mGy.cm FINDINGS: No pulmonary emboli are identified although the lower lobe segmental and subsegmental pulmonary arteries are suboptimally assessed due to respiratory motion. There is no thoracic aortic dissection. Size of the heart is normal. There is moderate coronary artery calcification. No thoracic lymphadenopathy is present. Bilateral gynecomastia is incidentally noted. Mucus within the trachea as well as the right mainstem bronchus is noted. There is diffuse bronchial wall thickening. Groundglass lower lobe opacities favor atelectasis. Lingular opacity favors scarring. Emphysema is again noted. There is no pneumothorax or pleural effusion. 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 Lateral segment hepatic cyst is noted. IMPRESSION: 1. No pulmonary emboli identified although segmental and subsegmental pulmonary arteries within the lower lobes suboptimally assessed due to respiratory motion. 2. Emphysema. 3. Groundglass opacities within the lower lobes suggestive of emphysema. No consolidation to suggest pneumonia. 4. Secretions within the airways bronchial wall thickening, as described above. ACT 112: Negative or not required by law. Electronically signed by: Chaitanya Srivastava M.D. 09/20/2021 7:22 PM Medications Administered Current Inpatient Medications Acetaminophen (Acetaminophen 325 Mg Tab) 650 mg PO Q4H PRN PRN Reason: Pain or Fever Stop: 10/20/21 22:39 Albuterol (Albut/Ipratrop 3mg/0.5mg Neb 3 Ml Vial) 3 ml NEB Q2H PRN PRN Reason: Shortness of Breath/Wheezing Stop: 10/20/21 22:39 Albuterol (Albut/Ipratrop 3mg/0.5mg Neb 3 Ml Vial) 3 ml INH Q4R DEBBY Stop: 10/21/21 18:59 Last Admin: 09/23/21 14:21 Dose: 3 ml Documented by: Atorvastatin Calcium (Atorvastatin 40 Mg Tab) 40 mg PO QAM [facility] Stop: 10/21/21 08:59 Last Admin: 09/23/21 08:06 Dose: 40 mg Documented by: Budesonide (Budesonide 0.5 Mg/2 Ml Vial (Pulmicort)) 0.5 mg NEB BIDR [facility] Stop: 10/20/21 22:39 Last Admin: 09/23/21 07:17 Dose: 0.5 mg Documented by: Cyanocobalamin (Cyanocobalamin (B-12) 500 Mcg Tablet) 1,000 mcg PO HS [facility] Stop: 10/20/21 22:39 Last Admin: 09/22/21 20:16 Dose: 1,000 mcg Documented by: Docusate Sodium (Docusate Sodium 100 Mg Cap) 100 mg PO BID DEBB[facility] Stop: 10/20/21 22:39 Last Admin: 09/23/21 08:06 Dose: 100 mg Documented by: Enoxaparin Sodium (Enoxaparin Inj 40 Mg/0.4 Ml Syr) 40 mg SQ Q24H DEBBY Stop: 10/21/21 08:59 Last Admin: 09/23/21 08:06 Dose: 40 mg Documented by: Ferrous Sulfate (Ferrous Sulfate 325 Mg Tab) 325 mg PO BID [facility] Stop: 10/20/21 22:39 Last Admin: 09/23/21 08:05 Dose: 325 mg Documented by: Fluticasone Propionate (Fluticasone Propionate Na Spr 16 Gm Btl) 2 sprays HOSSEIN QAM [facility] Stop: 10/22/21 08:59 Last Admin: 09/23/21 08:06 Dose: 2 sprays Documented by: Folic Acid (Folic Acid 1 Mg Tab) 1 mg PO DAILY DEBB[facility] Stop: 10/21/21 08:59 Last Admin: 09/23/21 08:05 Dose: 1 mg Documented by: Furosemide (Furosemide 20 Mg Tab) 20 mg PO Q2D@0900 [facility]BB[facility] Stop: 10/21/21 08:59 Last Admin: 09/23/21 08:05 Dose: 20 mg Documented by: Guaifenesin (Guaifenesin 600 Mg Tabcr) 1,200 mg PO BID DEBB[facility] Stop: 10/20/21 22:39 Last Admin: 09/23/21 08:06 Dose: 1,200 mg Documented by: Methylprednisolone 60 mg/ (Syringe) 0.96 mls @ 1.5 mls/min IV Q8H [facility] Stop: 10/21/21 01:59 Last Admin: 09/23/21 17:05 Dose: 1.5 mls/min Documented by: Lactobacillus Acidophilus (Advanced Probiotic 1250 Mg Capsule) 2 cap PO QAM [facility] Stop: 10/21/21 08:59 Last Admin: 09/23/21 08:06 Dose: 2 cap Documented by: Magnesium Oxide (Magnesium Oxide 400 Mg Tab) 400 mg PO QAM [facility] Stop: 10/21/21 08:59 Last Admin: 09/23/21 08:05 Dose: 400 mg Documented by: Multivitamins (Multivitamin Tab) 1 tab PO QAM [facility] Stop: 10/21/21 08:59 Last Admin: 09/23/21 08:05 Dose: 1 tab Documented by: Ondansetron HCl (Ondansetron Inj 2 Mg/Ml 2 Ml Vial) 4 mg IV Q6H PRN PRN Reason: Nausea Stop: 10/20/21 22:39 Polyethylene Glycol (Polyethylene (Miralax) 17 Gm Pack) 17 gm PO DAILY PRN PRN Reason: constipation Stop: 10/20/21 22:39 Pregabalin (Pregabalin 100 Mg Cap) 100 mg PO BID DEBBY Stop: 10/20/21 22:39 Last Admin: 09/23/21 08:08 Dose: 100 mg Documented by: Quetiapine Fumarate (Quetiapine Fumarate 25 Mg Tablet) 50 mg PO HS DEBB[facility] Stop: 10/20/21 22:39 Last Admin: 09/22/21 20:16 Dose: 50 mg Documented by: Sodium Chloride (Sodium Chloride 1 Gm Tablet) 1 gm PO BID DEBB[facility] Stop: 10/20/21 22:39 Last Admin: 09/23/21 08:05 Dose: 1 gm Documented by: Sodium Chloride (Sodium Chlor 7% 4 Ml Neb) 4 ml NEB BIDR [facility] Stop: 10/21/21 18:59 Last Admin: 09/23/21 07:36 Dose: 4 ml Documented by: Sumatriptan Succinate (Sumatriptan Succinate 50 Mg Tab) 50 mg PO Q2H PRN PRN Reason: migraine headache Stop: 10/20/21 22:39 Last Admin: 09/22/21 22:15 Dose: 50 mg Documented by: Thiamine HCl (Thiamine Hcl 100 Mg Tab) [facility] [place]: 10/21/21 08:59 Last Admin: 09/23/21 08:05 Dose: 100 mg Documented by: Tramadol HCl (Tramadol Hcl 50 Mg Tablet) 100 mg PO Q4H PRN PRN Reason: pain Stop: 10/20/21 22:39 Last Admin: 09/22/21 08:03 Dose: 100 mg Documented by: Venlafaxine HCl (Venlafaxine Hcl Xr 150 Mg Capxr) 150 [facility] [place]: 10/21/21 08:59 Last Admin: 09/23/21 08:06 Dose: 150 mg Documented by: Resident Activity Tracking Resident Involvement: Resident Care Provided Care Provided: Adult Hospital Medicine
--- NOTE | 2021-09-23 17:03 | Billing Data ---
Date of Service September 23, 2021 Coding Level of Care Code 77788 Subseq Hosp Care Lvl 3
[2021-09-23] MEDS: QUEtiapine FUMARATE 25 MG TABLET PO SCH (20:48)
[2021-09-23] MEDS: CYANOCOBALAMIN (B-12) 500 MCG TABLET PO SCH (20:49)
[2021-09-24] MEDS: methylPREDNISolone 60 MG in SYRINGE 0 ML IV SCH ×2 (02:22→08:59)
[2021-09-24] MEDS: ALBUT/IPRATROP 3MG/0.5MG NEB 3 ML VIAL INH SCH ×6 (03:57→23:10)
[2021-09-24 05:53] LABS: White Blood Count 7.89 K/uL (4.8-10.8)
[2021-09-24 05:54] LABS: Hematocrit (blood only) 33.3 % (42-52); Hemoglobin 10.8 g/dL (14.0-18.0); Mean Corpuscular Hemoglobin 29.2 pg (25-34); Mean Corpuscular Hgb Conc 32.4 g/dL (32-36); Mean Platelet Volume 9.8 fL (7.4-10.4); Platelet Count 230 K/uL (130-400); RDW Coefficient of Variation 16.1 % (11.5-14.5); RDW Standard Deviation 52.8 fL (36.4-46.3)
[2021-09-24 06:14] LABS: BUN Creatinine Ratio 40.9 (10-20); Calcium 8.4 mg/dl (8.5-10.1); Creatinine Clr Calc Pharmacy 115.8 ml/min; Est GFR (African American) 115.1 ml/min; Est GFR (Non-African American) 99.3 ml/min; Potassium 4.2 mmol/L (3.5-5.1)
--- NOTE | 2021-09-24 06:48 | Hospitalist Progress Note ---
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 Improving. Acute respiratory failure, COPD exacerbation: * Baseline oxygen requirement of 4 LNC, however has had increased oxygen demand at home. * CTA without evidence of PE or pneumonia. * Continue Pulmicort Respules nebulizers twice daily. * DuoNebs every 4 hours scheduled and every 2 hours as needed for shortness of breath/wheezing. * Continue Solu-Medrol 60 mg IV every 8 hours. * Mucinex 1200 mg twice daily scheduled. * Goal O2 saturation 88-92%. Consider BIPAP if patient has worsening of hypercapnia / accessory muscle use. * S/p 1x doxycycline in ED. Azithromycin 500mg IV, day 3, july d/c tomorrow * Hypertonic saline nebs BID * Patient reports cutting back on smoking a few months ago from pd for 56 years. Reports about 2 cigarettes per week. Continue cessation counseling. Chronic venous stasis: * Patient and report worsening bilateral LE edema. * Continue Lasix 20mg every other day. * Echo ordered to ensure no element of CHF contributing to peripheral edema/respiratory failure. EF 65-70. Mild LVH. NO sig change from 04/25/19. * Ordered SREE stockings Sinus tachycardia * Appears chronic. Respiratory failure possibly contributing. Continue telemetry. Alcohol use disorder, SIADH: chronic: * History of alcohol use disorder in remission. * No evidence of withdrawal at this time, will defer AWSS protocol. 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 Anemia: Chronic: * Continue B12 and iron supplementation. * Follow CBC Code: Full FENGI: heart healthy, low sodium diet DVT ppx: Lovenox 40 unit subq (2) COPD exacerbation: (3) Alcohol use disorder, moderate, in early remission: (4) Tobacco abuse: (5) Essential hypertension: (6) Superior mesenteric artery aneurysm: (7) Chronic venous stasis: (8) SIADH (syndrome of inappropriate ADH production): Admission and Anticipated Discharge Date Admission Date: September 20, 2021 Results & Data Results & Data ([facility]) Vital Signs (Past 12 Hours) Vital Signs Temp Pulse Resp BP Pulse Ox 09/24/21 03:57 75 20 98 09/23/21 22:43 87 20 95 09/23/21 20:41 37 C 99 H 18 157/93 H 96 09/23/21 19:18 97 H 20 95
[2021-09-24] MEDS: SODIUM CHLOR 7% 4 ML NEB NEB SCH ×2 (07:26→19:08)
[2021-09-24] MEDS: SUMAtriptan succinate 50 MG TAB PO PRN (08:57)
[2021-09-24] MEDS: UMECLIDINIUM BROMIDE 62.5MCG/BLISTER 7 PUFFS/INHALER INH SCH (08:58)
[2021-09-24] MEDS: FLUTICASONE/VILANTEROL 200/25MCG 14 PUFFS/INHALER INH SCH (08:58)
[2021-09-24] MEDS: FLUTICASONE PROPIONATE NA SPR 16 GM BTL NAE SCH (08:59)
[2021-09-24] MEDS: VENLAFAXINE HCL XR 150 MG CAPXR PO SCH (08:59)
[2021-09-24] MEDS: MULTIVITAMIN TAB PO SCH (08:59)
[2021-09-24] MEDS: MAGNESIUM OXIDE 400 MG TAB PO SCH (08:59)
[2021-09-24] MEDS: guaiFENesin 600 MG TABCR PO SCH ×2 (08:59→21:13)
[2021-09-24] MEDS: ADVANCED PROBIOTIC 1250 MG CAPSULE PO SCH (08:59)
[2021-09-24] MEDS: DOCUSATE SODIUM 100 MG CAP PO SCH ×2 (08:59→22:00)
[2021-09-24] MEDS: THIAMINE HCL 100 MG TAB PO SCH (08:59)
[2021-09-24] MEDS: ENOXAPARIN INJ 40 MG/0.4 ML SYR SQ SCH (08:59)
[2021-09-24] MEDS: SODIUM CHLORIDE 1 GM TABLET PO SCH ×2 (08:59→21:13)
[2021-09-24] MEDS: ATORVASTATIN 40 MG TAB PO SCH (08:59)
[2021-09-24] MEDS: FERROUS SULFATE 325 MG TAB PO SCH ×2 (08:59→21:15)
[2021-09-24] MEDS: FOLIC ACID 1 MG TAB PO SCH (08:59)
[2021-09-24] MEDS: METOPROLOL SUCC 50MG EXT REL TAB PO SCH (09:00)
[2021-09-24] MEDS: PREGABALIN 100 MG CAP PO SCH ×2 (09:00→21:15)
--- NOTE | 2021-09-24 09:29 | Hospitalist Progress Note ---
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 Improving. Acute respiratory failure, COPD exacerbation: * Baseline oxygen requirement of 4 LNC, however has had increased oxygen demand at home. CTA without evidence of PE or pneumonia. * Goal O2 saturation 88-92%. Consider BIPAP if patient has worsening of hypercapnia / accessory muscle use. * Was on 3 while hospitalized and now back on 4 * Continue Pulmicort Respules nebulizers twice daily. * DuoNebs every 4 hours scheduled and every 2 hours as needed for shortness of breath/wheezing. * Transition to p.o. prednisone 60 mg daily; prolonged taper on discharge * Mucinex 1200 mg twice daily scheduled. * Continue 2 days p.o. azithromycin 250 mg * Hypertonic saline nebs BID * Patient reports cutting back on smoking a few months ago from 2ppd for 56 years. Reports about 2 cigarettes per week. Continue cessation counseling. * Chest PT, incentive spirometry, flutter valve ordered Chronic venous stasis: * Patient and report worsening bilateral LE edema. * Echo ordered to ensure no element of CHF contributing to peripheral edema/respiratory failure. EF 65-70. Mild LVH. NO sig change from 04/25/19. * Ordered SREE stockings * Continue Lasix 20mg every other day. Sinus tachycardia * Appears chronic. Respiratory failure possibly contributing. Continue telemetry. * Improving Alcohol use disorder, SIADH: chronic: * History of alcohol use disorder in remission. * No evidence of withdrawal at this time, will defer AWSS protocol. * Follows with communications department head outpatient * Continue sodium chloride tabs BID for SIADH. Anemia: Chronic: * Continue B12 and iron supplementation. * Follow CBC Code: Full FENGI: heart healthy, low sodium diet DVT ppx: Lovenox 40 unit subq Dispo: anticipate D/C tomorrow (2) COPD exacerbation: (3) Alcohol use disorder, moderate, in early remission: (4) Tobacco abuse: (5) Essential hypertension: (6) Superior mesenteric artery aneurysm: (7) Chronic venous stasis: (8) SIADH (syndrome of inappropriate ADH production): Admission and Anticipated Discharge Date Admission Date: September 20, 2021 Supervising Physician Co-Signing Physician Notes I personally examined the patient and verified all hurley points of history and exam, discussed case, and agree with decision making with Dr Lira. Breathing continues to feel little better. Definitely mostly dyspnea on exertion, at rest is more or less back to baseline, but he notes that even standing at the bedside to void creates significant dyspnea that takes a little while to improve. Vitals noted, in general he is awake and alert pleasant no distress. HEENT normocephalic atraumatic mucous membranes moist. Breathing unlabored no accessory muscle use good effort no conversational dyspnea good effort coarse rhonchorus wheeze throughout although better air entry than before - slowly COPD exacerbationwith suspected severe underlying lung diseasecontinue steroids (wean to prednisone PO - follow to ensure doesnt backslide) conitnue current care otherwise. probably willl need new Rx's and instructions for inhalers when he gets home- today when discussing home inhalers he's really not as clear on what he actually has/is using as compared to when we discussed exactly this ~2 days ago DVT prophylaxisLovenox Otherwise as above Subjective Patient lying in bed this morning in no acute distress. Patient reports his breathing is slightly worse than yesterday however better than when he presented to the hospital. Patient reports he is requiring 4 L of O2. Patient reports tolerating his diet, voiding, notes transient constipation. Patient is anxious about returning home. All questions answered, acute concerns related to increasing oxygen requirements. Specifically denying chest pressure, chest pain, worsening shortness of breath Review of Systems Review of Systems: as above Physical Exam Physical Exam: General: No acute distress HEENT: Normocephalic atraumatic Neck: Normal to visual inspection Cardiac: Regular rate and rhythm I do not appreciate significant murmurs or gallops, normal S1, normal S2, 1+ pedal edema bilaterally, no calf tenderness Respiratory: Coarse breath sounds throughout all lung wong with associated wheezes, no increased work of breathing, no crackles GI: Soft, nontender, nondistended MSK: Moves all extremities Neuro: AAOx4 Psych: Calm and cooperative with the interview Results & Data Results & Data ([facility]) Vital Signs (Past 12 Hours) Vital Signs Temp Pulse Resp BP Pulse Ox 09/24/21 08:04 36.7 C 85 20 123/68 98 09/24/21 07:26 87 18 94 09/24/21 03:57 75 20 98 09/23/21 22:43 87 20 95 Laboratory Results 09/24/21 09/24/21 Range/Units 05:34 05:34 WBC 7.89 (4.8-10.8) K/uL RBC 3.70 L (4.7-6.1) M/uL Hgb 10.8 L (14.0-18.0) g/dL Hct 33.3 L (42-52) % MCV 90.0 (80-100) fL MCH 29.2 (25-34) pg MCHC 32.4 (32-36) g/dL RDW Std Deviation 52.8 H (36.4-46.3) fL RDW Coeff of Jem 16.1 H (11.5-14.5) % Plt Count 230 (130-400) K/uL MPV 9.8 (7.4-10.4) fL Sodium 137 (136-145) mmol/L Potassium 4.2 (3.5-5.1) mmol/L Chloride 101 (98-107) mmol/L Carbon Dioxide 35 H (21-32) mmol/L Anion Gap 1 L (3-11) BUN 27 H (6-23) mg/dl Creatinine 0.66 (0.6-1.4) mg/dl Est Cr Clr Drug Dosing 115.8 ml/min Est GFR ( Amer) 115.1 ml/min Est GFR (Non-Af Amer) 99.3 ml/min BUN/Creatinine Ratio 40.9 H (10-20) Glucose 116 H (70-99(Fasting)) mg/dl Calcium 8.4 L (8.5-10.1) mg/dl Medications Administered Current Inpatient Medications Acetaminophen (Acetaminophen 325 Mg Tab) 650 mg PO Q4H PRN PRN Reason: Pain or Fever Stop: 10/20/21 22:39 Albuterol (Albut/Ipratrop 3mg/0.5mg Neb 3 Ml Vial) 3 ml NEB Q2H PRN PRN Reason: Shortness of Breath/Wheezing Stop: 10/20/21 22:39 Albuterol (Albut/Ipratrop 3mg/0.5mg Neb 3 Ml Vial) 3 ml INH Q4R DEBBY Stop: 10/21/21 18:59 Last Admin: 09/24/21 07:26 Dose: 3 ml Documented by: Atorvastatin Calcium (Atorvastatin 40 Mg Tab) 40 mg PO QAM DEBBY Stop: 10/21/21 08:59 Last Admin: 09/24/21 08:59 Dose: 40 mg Documented by: Cyanocobalamin (Cyanocobalamin (B-12) 500 Mcg Tablet) 1,000 mcg PO HS DEBBY Stop: 10/20/21 22:39 Last Admin: 09/23/21 20:49 Dose: 1,000 mcg Documented by: Docusate Sodium (Docusate Sodium 100 Mg Cap) 100 mg PO BID DEBBY Stop: 10/20/21 22:39 Last Admin: 09/24/21 08:59 Dose: 100 mg Documented by: Enoxaparin Sodium (Enoxaparin Inj 40 Mg/0.4 Ml Syr) 40 mg SQ Q24H [facility]BBY Stop: 10/21/21 08:59 Last Admin: 09/24/21 08:59 Dose: 40 mg Documented by: Ferrous Sulfate (Ferrous Sulfate 325 Mg Tab) 325 mg PO BID DEBBY Stop: 10/20/21 22:39 Last Admin: 09/24/21 08:59 Dose: 325 mg Documented by: Fluticasone Propionate (Fluticasone Propionate Na Spr 16 Gm Btl) 2 sprays HOSSEIN QAM DEBBY Stop: 10/22/21 08:59 Last Admin: 09/24/21 08:59 Dose: 2 sprays Documented by: Fluticasone/Vilanterol (Fluticasone/Vilanterol 200/25mcg 14 Puffs/Inhaler) 1 puffs INH DAILY DEBBY Stop: 10/24/21 08:59 Last Admin: 09/24/21 08:58 Dose: 1 puffs Documented by: Folic Acid (Folic Acid 1 Mg Tab) 1 mg PO DAILY DEBBY Stop: 10/21/21 08:59 Last Admin: 09/24/21 08:59 Dose: 1 mg Documented by: Furosemide (Furosemide 20 Mg Tab) 20 mg PO Q2D@0900 DEBBY Stop: 10/21/21 08:59 Last Admin: 09/23/21 08:05 Dose: 20 mg Documented by: Guaifenesin (Guaifenesin 600 Mg Tabcr) 1,200 mg PO BID DEBBY Stop: 10/20/21 22:39 Last Admin: 09/24/21 08:59 Dose: 1,200 mg Documented by: Methylprednisolone 60 mg/ (Syringe) 0.96 mls @ 1.5 mls/min IV Q8H [facility] Stop: 10/21/21 01:59 Last Admin: 09/24/21 08:59 Dose: 1.5 mls/min Documented by: Lactobacillus Acidophilus (Advanced Probiotic 1250 Mg Capsule) 2 cap PO QAM [facility] Stop: 10/21/21 08:59 Last Admin: 09/24/21 08:59 Dose: 2 cap Documented by: Magnesium Oxide (Magnesium Oxide 400 Mg Tab) 400 mg PO QAM [facility] Stop: 10/21/21 08:59 Last Admin: 09/24/21 08:59 Dose: 400 mg Documented by: Metoprolol Succinate (Metoprolol Succ 50mg Ext Rel Tab) 50 mg PO DAILY [facility] Stop: 10/24/21 08:59 Last Admin: 09/24/21 09:00 Dose: 50 mg Documented by: Multivitamins (Multivitamin Tab) 1 tab PO QAM [facility] Stop: 10/21/21 08:59 Last Admin: 09/24/21 08:59 Dose: 1 tab Documented by: Ondansetron HCl (Ondansetron Inj 2 Mg/Ml 2 Ml Vial) 4 mg IV Q6H PRN PRN Reason: Nausea Stop: 10/20/21 22:39 Polyethylene Glycol (Polyethylene (Miralax) 17 Gm Pack) 17 gm PO DAILY PRN PRN Reason: constipation Stop: 10/20/21 22:39 Pregabalin (Pregabalin 100 Mg Cap) 100 mg PO BID [facility] Stop: 10/20/21 22:39 Last Admin: 09/24/21 09:00 Dose: 100 mg Documented by: Quetiapine Fumarate (Quetiapine Fumarate 25 Mg Tablet) 50 mg PO HS [facility] Stop: 10/20/21 22:39 Last Admin: 09/23/21 20:48 Dose: 50 mg Documented by: Sodium Chloride (Sodium Chloride 1 Gm Tablet) 1 gm PO BID [facility] Stop: 10/20/21 22:39 Last Admin: 09/24/21 08:59 Dose: 1 gm Documented by: Sodium Chloride (Sodium Chlor 7% 4 Ml Neb) 4 ml NEB BIDR [facility] Stop: 10/21/21 18:59 Last Admin: 09/24/21 07:26 Dose: 4 ml Documented by: Sumatriptan Succinate (Sumatriptan Succinate 50 Mg Tab) 50 mg PO Q2H PRN PRN Reason: migraine headache Stop: 10/20/21 22:39 Last Admin: 09/24/21 08:57 Dose: 50 mg Documented by: Thiamine HCl (Thiamine Hcl 100 Mg Tab) 100 mg PO QAM [facility] Stop: 10/21/21 08:59 Last Admin: 09/24/21 08:59 Dose: 100 mg Documented by: Tramadol HCl (Tramadol Hcl 50 Mg Tablet) 100 mg PO Q4H PRN PRN Reason: pain Stop: 10/20/21 22:39 Last Admin: 09/22/21 08:03 Dose: 100 mg Documented by: Umeclidinium Knapp (Umeclidinium Knapp 62.5mcg/Blister 7 Puffs/Inhaler) 1 [facility] Stop: 10/24/21 08:59 Last Admin: 09/24/21 08:58 Dose: 1 puffs Documented by: Venlafaxine HCl (Venlafaxine Hcl Xr 150 Mg Capxr) 150 mg PO QAM [facility] Stop: 10/21/21 08:59 Last Admin: 09/24/21 08:59 Dose: 150 mg Documented by:
[2021-09-24] MEDS: POLYETHYLENE (MIRALAX) 17 GM PACK PO SCH (10:27)
[2021-09-24] MEDS: AZITHROMYCIN 250 MG TAB PO SCH (10:27)
--- NOTE | 2021-09-24 13:21 | Billing Data ---
Date of Service September 24, 2021 Coding Level of Care Code 44514 Subseq Hosp Care Lvl 3
[2021-09-24] MEDS: CYANOCOBALAMIN (B-12) 500 MCG TABLET PO SCH (21:16)
[2021-09-24] MEDS: QUEtiapine FUMARATE 25 MG TABLET PO SCH (21:16)
[2021-09-25] MEDS: ALBUT/IPRATROP 3MG/0.5MG NEB 3 ML VIAL INH SCH ×3 (03:16→12:01)
[2021-09-25] MEDS: SODIUM CHLOR 7% 4 ML NEB NEB SCH (07:15)
--- NOTE | 2021-09-25 07:47 | Discharge Summary ---
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 He also reports using his home nebulizers at an increasing amount. On presentation to the ER patient was on CPAP but was quickly de-escalated to about 3 LNC. Patient so far has received DuoNeb 3 mL x 1, methylpred 60 mg IV x1, Doxycycline 100 mg IV x1. Due to swelling in his bilateral lower extremities a CT PE protocol was performed which did not show any evidence of large PE, though study reports that subsegmental arteries were not well visualized. No evidence of pneumonia or fluid overload on imaging. Lab work notable for ABG 7.38/60/78/36, labs otherwise normal. COVID, influenza, and RSV testing negative. On my interview patient reports increasing dyspnea and noted to have accessory muscle use so DuoNeb 12 mL ordered at that time with improvement in symptoms. He denies fevers, chest pain, abdominal pain. He endorses chronic left lower quadrant pain secondary to large inguinal hernia that he is awaiting surgical clearance for. He reports that he quit smoking and drinking about 4 months ago, which his corroborates. They both note that his bilateral lower extremities are more swollen recently than normal, and he does have a history of a right trimalleolar fracture that occurred in April and he has been wearing a boot since that time. Admission Exam Per Admitting Provider Constitutional: + ill appearing and + thin Eyes: PERRL, conjunctivae normal, anicteric sclerae ENMT: external ear and nose normal, oropharynx normal Neck: normal visual inspection Respiratory: Poor air movement throughout with diffuse wheezing, notable accessory muscle use, 96% on 4LNC Cardiovascular: RRR no murmur, bilateral peripheral nonpitting edema Gastrointestinal (Abdomen): normal bowel sounds, soft, nontender, no hepatosplenomegaly (left large reducible inguinal hernia, nontender) Musculoskeletal: no cyanosis or clubbing, extremities motor strength 5/5 Skin: no rashes, warm and dry Neurologic: AAOx3, normal speech. Bilateral UE, LE, and face without sensory or motor deficits Psychiatric: A+Ox3, euthymic affect Principal Diagnosis COPD exacerbation, acute on chronic Hypoxic Respiratory Failure Discharge Exam General: No acute distress HEENT: Normocephalic atraumatic Neck: Normal to visual inspection Cardiac: Regular rate and rhythm I do not appreciate significant murmurs or gallops, normal S1, normal S2, 1+ pedal edema bilaterally, no calf tenderness Respiratory: Coarse breath sounds throughout all lung wong with associated wheezes, no increased work of breathing, no crackles GI: Soft, nontender, nondistended MSK: Moves all extremities Neuro: AAOx4 Psych: Calm and cooperative with the interview Discharge Data Allergies Allergy/AdvReac Type Severity Reaction Status Date / Time No Known Allergies Allergy Verified 09/20/21 18:02 Consultations 09/20/21 19:42 ED Decision to Admit Stat Ordered Studies 09/20/21 18:17 CT angio chest PE protocol Stat Hospital Course (1) Acute on chronic respiratory failure with hypoxia and hypercapnia: 70-year-old male past medical history significant for COPD on baseline 3LNC, alcohol use disorder in remission, 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 Improving. Acute respiratory failure, COPD exacerbation: Baseline oxygen requirement of 4 LNC, however has had increased oxygen demand at home. CTA without evidence of PE or pneumonia. BID Pulmicort and DuoNebs were every given 4 hours scheduled and every 2 hours as needed for shortness of breath/wheezing. PT given 3 days IV azithro and IV solumedrol transitioned to PO on 09/24. Chest PT, incentive spirometry, flutter valve was provided. * Goal O2 saturation 88-92%. * Transitioned to p.o. prednisone 60 mg daily on 09/23 ; prolonged taper on disc harge * Mucinex 1200 mg twice daily scheduled. * ON D/C 5 days zithromax * Smoking Cessation Chronic venous stasis: * Echo ordered to ensure no element of CHF contributing to peripheral edema/respiratory failure. EF 65-70. Mild LVH. NO sig change from 04/25/19. * Ordered SREE stockings * Continue Lasix 20mg every other day. Sinus tachycardia * Appears chronic. Respiratory failure possibly contributing. Continue telemetry. * Improving Alcohol use disorder, SIADH: chronic: * History of alcohol use disorder in remission. * No evidence of withdrawal at this time, will defer AWSS protocol. 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 Anemia: Chronic: * Continue B12 and iron supplementation. * Follow up CBC as outpt (2) COPD exacerbation: (3) Alcohol use disorder, moderate, in early remission: (4) Tobacco abuse: (5) Essential hypertension: (6) Superior mesenteric artery aneurysm: (7) Chronic venous stasis: (8) SIADH (syndrome of inappropriate ADH production): Total Time Total Time Spent Total Time Spent (In Minutes): 35 Discharge Plan Discharge Items Patient Disposition: Home - Self-Care Reason For Visit: ACUTE ON CHRONIC HYPOXIC RESPIRATORY FAILURE Discharge Diagnosis: COPD exacerbation Activity: Per Instructions section Non-emergency contact: Primary Care Provider Call non-emergency contact if: you have any medication questions and your pain is not controlled Follow-up/Referrals: Russell Dang, [Primary Care Provider] - Diet: Regular Addtl Attending Provider Instructions: Care instructions: You were admitted to [facility] for treatment of COPD exacerbation. You were treated with intravenous antibiotics nebulized medications and respiratory therapy. Throughout your hospitalization your breathing continue to improve. It is important on discharge that you continue to take your medications as prescribed. On discharge you will be prescribed a prolonged course of oral steroids in addition to oral antibiotics. A discharge summary will be sent to your primary care physician to ensure continuity of care. Please bring this discharge summary with you to your next office appointment so that your provider can review it at that time. On discharge in addition to your normal medication regimen please take the following medications: Azithromycin: 1 tablet every day for 5 days Prednisone: 60 mg (6 pills) for 3 days, 50 mg (5 pills) for 4 days, 40 mg (4 pills) for 4 days, 30 mg (3 pills) for 4 days, 20 mg (2 pills) for 4 days, 10 mg (1 pill) for 4 days. Mucinex: 1200 mg 2 times a day once in the morning once in the evening Flonase: 2 sprays per nostril 2 times per day once in the morning once in the evening *Refilled Home INHalers* Follow-up appointments: - Keep all your follow-up appointments as already scheduled. If you cannot make an appointment, notify your provider. - Please call to request a follow-up appointment with your primary care physician within one week of discharge. Please let us know if you are unable to obtain an appointment Medications: - Your medication list has been reviewed and reconciled upon discharge to ensure accuracy and continuity of care. - You are provided with a list of all your current medications at this time. Please review this list closely and make note of any changes. - Please take all of your medications exactly as prescribed. - Tell your primary care provider if you cannot afford your medications. - Call your primary care provider if you are having any side effects or any other problems. - Call your primary care provider before taking any over the counter medications or supplements, including herbals and vitamins, because some of these may interact with your current medications and/or make your symptoms worse. Symptoms: Please call your primary care provider for symptoms including, but not limited to: fevers (temperatures greater than 100.4), chills, intractable nausea or vomiting, diarrhea, rash, shortness of breath, bleeding, pain, or if you experience any worsening of the symptoms that brought you to the hospital. For EMERGENCY and VERY SERIOUS health-related issues, such as chest pain, shortness of breath, or sudden onset of the symptoms that brought you to the hospital, you may need to call 911 or go directly to the Emergency Room It has been our privilege to take care of you during your hospital stay. And Above All Else Feel Better! Best Wishes, Kurt Lira MD PGY3 Resident, [facility] at [facility] - [address], [address] : [place] [address] Pending Studies at Discharge: No Stand-Alone Forms: My [facility], Smoking Cessation Medications and DC Order Prescriptions: New azithromycin 250 mg Tablet 250 mg PO QAM Qty: 5 RF: 0 fluticasone propionate 50 mcg/actuation [place],Suspension 2 spray HOSSEIN QAM 30 Days Qty: 1 RF: 0 guaifenesin [Mucinex] 600 mg Tablet Extended Release 12hr 1,200 mg PO BID 30 Days Qty: 120 RF: 0 prednisone 10 mg tablet 10 mg PO DAILY Qty: 78 RF: 0 fluticasone propion-salmeterol [Advair Diskus] 500-50 mcg/dose blister with d evice 1 inh inhalation BID Qty: 60 RF: 0 Continued sodium chloride 1 gram tablet 1 g PO BID Qty: 180 RF: 3 Hold Instructions: Home Medication placed on hold at Doctor's office venlafaxine 150 mg capsule,extended release 24hr 150 mg PO QAM 90 Days Qty: 90 RF: 1 furosemide [Lasix] 20 mg tablet 20 mg PO Q OTHER DAY Qty: 15 RF: 5 pregabalin 100 mg capsule 100 mg PO BID Qty: 60 RF: 2 fluticasone propion-salmeterol [Advair Diskus] 500-50 mcg/dose blister with device 1 inh inhalation BID Qty: 60 RF: 0 sumatriptan succinate 50 mg tablet 50 mg PO Q2H MDD 4 tablets/24hrs PRN (Reason: migraine headache) Qty: 9 RF: 5 Probiotic Colon Support 1.5 billion cell Capsule 1 cap PO QAM RF: 0 tramadol 50 mg Tablet 100 mg PO Q4H PRN (Reason: pain) Qty: 36 RF: 0 docusate sodium 100 mg Capsule 100 mg PO BID Qty: 60 RF: 0 ferrous sulfate 325 mg (65 mg iron) tablet,delayed release (DR/EC) 325 mg PO BID Qty: 60 RF: 0 polyethylene glycol 3350 [Miralax] 17 gram powder in packet 17 g PO DAILY PRN (Reason: constipation) Qty: 30 RF: 0 thiamine HCl (vitamin B1) 100 mg Tablet 100 mg PO QAM Qty: 30 RF: 0 multivitamin with folic acid [Daily-[place] (with folic acid)] 400 mcg Tablet 1 tab PO QAM Qty: 30 RF: 0 atorvastatin 40 mg tablet 40 mg PO QAM RF: 0 magnesium oxide 400 mg (241.3 mg magnesium) tablet 400 mg PO QAM RF: 0 quetiapine [Seroquel] 50 mg tablet 50 mg PO HS Qty: 7 RF: 0 metoprolol succinate 50 mg tablet extended release 24 hr 50 mg PO DAILY RF: 0 folic acid 1 mg tablet 1 mg PO DAILY RF: 0 ipratropium-albuterol 0.5 mg-3 mg(2.5 mg base)/3 mL solution for nebulization 3 ml INH Q4H PRN (Reason: shortness of breath or wheezing) Qty: 540 RF: 5 albuterol sulfate 90 mcg/actuation HFA aerosol inhaler 1 - 2 puff INHALATION Q4H PRN (Reason: Shortness Of Breath) Qty: 54 RF: 1 Incruse Ellipta 62.5 mcg/actuation blister with device 1 inh inhalation QAM Qty: 30 RF: 0 cyanocobalamin (vitamin B-12) [Vitamin B-12] 1,000 mcg Tablet 1,000 mcg PO HS RF: 0 No Action (DME) nebulizer accessories Kit See Rx Instructions .ROUTE .MEDSUPPLY Qty: 1 RF: 0 Discharge Orders: Discharge Order (Routine); Ordered 09/25/21 Ordered By: Kurt Lira Admission Data Admit Date/Time: 09/20/21 20:28 Attending Provider: Douglas Preston Admit Provider: Kajal Barrientos Primary Care Provider: Russell Dang Other Providers: Josh Kim Other Interventions: Discharge Summary Assessment (RN) Last Done: 09/25/21 09:36
[2021-09-25] MEDS: FLUTICASONE/VILANTEROL 200/25MCG 14 PUFFS/INHALER INH SCH (07:53)
[2021-09-25] MEDS: UMECLIDINIUM BROMIDE 62.5MCG/BLISTER 7 PUFFS/INHALER INH SCH (07:54)
[2021-09-25] MEDS: POLYETHYLENE (MIRALAX) 17 GM PACK PO SCH (07:54)
[2021-09-25] MEDS: ENOXAPARIN INJ 40 MG/0.4 ML SYR SQ SCH (07:56)
[2021-09-25] MEDS: METOPROLOL SUCC 50MG EXT REL TAB PO SCH (07:57)
[2021-09-25] MEDS: ADVANCED PROBIOTIC 1250 MG CAPSULE PO SCH (07:57)
[2021-09-25] MEDS: THIAMINE HCL 100 MG TAB PO SCH (07:57)
[2021-09-25] MEDS: AZITHROMYCIN 250 MG TAB PO SCH (07:57)
[2021-09-25] MEDS: SUMAtriptan succinate 50 MG TAB PO PRN (07:57)
[2021-09-25] MEDS: VENLAFAXINE HCL XR 150 MG CAPXR PO SCH (07:57)
[2021-09-25] MEDS: PREGABALIN 100 MG CAP PO SCH (07:57)
[2021-09-25] MEDS: SODIUM CHLORIDE 1 GM TABLET PO SCH (07:57)
[2021-09-25] MEDS: FOLIC ACID 1 MG TAB PO SCH (07:57)
[2021-09-25] MEDS: MULTIVITAMIN TAB PO SCH (07:57)
[2021-09-25] MEDS: FUROSEMIDE 20 MG TAB PO SCH (07:58)
[2021-09-25] MEDS: DOCUSATE SODIUM 100 MG CAP PO SCH (07:58)
[2021-09-25] MEDS: FERROUS SULFATE 325 MG TAB PO SCH (07:58)
[2021-09-25] MEDS: MAGNESIUM OXIDE 400 MG TAB PO SCH (07:58)
[2021-09-25] MEDS: guaiFENesin 600 MG TABCR PO SCH (07:58)
[2021-09-25] MEDS: FLUTICASONE PROPIONATE NA SPR 16 GM BTL NAE SCH (07:58)
[2021-09-25] MEDS: ATORVASTATIN 40 MG TAB PO SCH (07:58)
[2021-09-25] MEDS ORDERED: predniSONE 20 MG TAB PO SCH (09:00)
--- NOTE | 2021-09-25 15:05 | Billing Data ---
Date of Service September 25, 2021 Coding Level of Care Code D/C DAY MANAGEMENT <30 MINS
== END 2021-09-25 14:12 | disposition home or self-care (01) | DRG 189 ==
LOC: ED 16:51 → 2S 20:28 → SUATTDRO 20:28 → 2S 21:30 → 3E 09-23 18:18

== ENCOUNTER 2022-02-18 15:30 | Inpatient (IN) ==
--- NOTE | 2022-02-18 15:38 | Emergency Department Note ---
Impression & Plan Acute exacerbation of chronic obstructive pulmonary disease, Acute dyspnea ED Provider Note NAME: DENAE LAL AGE: 71 SEX: M : 1950 ARRIVES VIA: Ambulance INFORMANT: Patient, ED PROVIDER(S): David Santoro MD Chief Complaint: Shortness of breath, cough HPI: Patient presents due to concern for shortness of breath which is been ongoing for approximate 3 to 4 days. The patient is also had associated cough with occasional sputum. Patient does complain of some right-sided intermittent chest pain that he states "feels like you been struck by a baseball bat quick." Patient denies any falls or trauma. No exertional symptoms and no change with position or activity. Patient has not take anything for it at home. The patient has noticed some slight swelling his legs as well. Patient denies any current smoking last smoked 2 to 3 years ago. The patient does have a known history of COPD and has been trialing some nebulizer treatments at home but this has not greatly improved his symptoms. The patient does wear 4 L at all times. EMS did give the patient Solu-Medrol 125 mg and a DuoNeb treatment. Patient states that it mildly improved his symptoms. ROS: See HPI for pertinent positives and negatives. A total of 10 systems were reviewed and otherwise negative. Past medical history: See below Surgical history: See below Social history: See below Physical Exam: GENERAL: NAD, wearing a mask, non-toxic. EYE EXAM: Normal conjunctiva. PERRL, no anisocoria and EOM's grossly intact w/o pain. NECK: Supple, no nuchal rigidity, no adenopathy, non-tender. No signs of meningismus. FROM of the neck with good chin to chest and neck extension. No stridor. LUNGS: Diffuse wheezes throughout. Normal chest wall mechanics. HEART: NSR, no MRG. ABDOMEN: Abdomen soft, non-tender, normo-active bowel sounds, no masses, no rebound or guarding. BACK: No CVA TTP. SKIN: No rashes and no bruising. UPPER EXTREMITIES: Upper extremities are grossly normal. LOWER EXTREMITIES: Grossly normal, mild swelling but no significant pitting edema. Neurovascular intact distally compartments are soft and no crepitus. NEURO EXAM: A&O x3, cranial nerves II-XII grossly intact, normal speech, moves all 4 extremities. Differential diagnoses: Reactive airway disease, pneumonia, pneumothorax, COPD, CHF, infections, cardiac ischemia, pulmonary embolism, musculoskeletal, gastrointestinal, as well as other pathologies. Course: Patient was seen and evaluated the bedside. Full history physical exam was performed. EKG interpreted by Sinus with first-degree AV block, rate of 99, prolonged [place], normal QRS normal axis no ST elevations Imaging Studies: See Below Cardiac monitoring: An order was placed for continuous cardiac monitoring. The monitor shows a rate of 88 with sinus rhythm. MDM: Patient was seen due to concern for shortness of breath in the setting of likely COPD exacerbation. The patient had already received nebs and steroids. The patient was ordered additional labs as well as mag. Blood work was obtained along with an EKG and chest x-ray. The patient has a normal white count mild anemia hemoglobin of 12.4 with normal platelet count. Kidney function is unremarkable. Pro-Levy is not elevated. COVID-negative. The patient's chest x-ray does not show any likely pneumonia. There is some atelectatic change. Given the patient's significant COPD as well as mild increase in oxygen requirement I did speak the on-call hospitalist Dr. Godoy and the patient was admitted to the medicine service. Past Med/Surg History Medical History Chronic anemia Colitis COPD (chronic obstructive pulmonary disease) Gout Hyperlipidemia Hypertension Incarcerated left inguinal hernia Low back pain Migraine On home oxygen therapy 2-4L continuous Orthostatic hypotension Per records Osteoarthritis Right inguinal hernia Seizure 2018 (no known etiology) 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) Per records Tremor R/L hands/feet Surgical History H/O tooth extraction Lower teeth on 04/23/2018 History of colonoscopy History of open reduction and internal fixation (ORIF) procedure FEMUR L Trimalleolar fracture ORIF (04/30/21): LMA#4 + PNB at [facility] (multiple attempts at SAB unsuccessful 2/2 to bone per anesthesia record) S/P foot surgery RT/LEFT (HARDWARE INTACT) Family History Father Hypertension Aneurysm Mother Swelling Uncle Myocardial infarction Other No significant family history Denies family history of Ovarian cancer Prostate cancer Breast cancer Colorectal cancer Social History Smoking Status: Former smoker Tobacco Type: Cigarettes Age Started Using Tobacco: 14; Age Quit Using Tobacco: 69; packs per day: 1; Cigarettes Per Day: quit 2-4 years ago; Second Hand Exposure: No; Hx Alcohol Use: No Hx Substance Use: No Preferred Language: Kyrgyz Communication Ability: Effective Visual Impairment: Limited Hearing Ability: Normal Director Television News Required: No Beliefs That Will Affect Care: None marital status: Current Living Situation: Spouse and Family Current Living Situation Comment: , granddaughter and her , 12 year old boy current occupational status: retired How many Children do You have: 2 Feels Safe at Home: Yes Safety Concerns: Feels Safe At This Time Childhood Exposure to Second-Hand Smoke: Yes Dental Care, Regularly: No Physical Activity Frequency: Does not Exercise Seatbelt Use: always Sunscreen Use: No Assistive Devices: Cane, Denture - Upper, Denture - Lower, Glasses and Oxygen - Continuous Assistive Devices Comment: Left dentures at home Allergies Allergies Allergy/AdvReac Type Severity Reaction Status Date / Time No Known Allergies Allergy Verified 02/18/22 15:43 Home Meds Home Medications Medication Instructions Recorded Confirmed Lactobacills gasseri-Bifidobac 1 cap PO QAM 02/25/19 02/18/22 bifidum,longum 1.5 billion cell capsule (Probiotic Colon Support) cyanocobalamin (vitamin B-12) 1,000 mcg PO HS 03/08/21 02/18/22 1,000 mcg tablet (Vitamin B-12) magnesium oxide 400 mg (241.3 mg 400 mg PO QAM 06/17/21 02/18/22 magnesium) tablet metoprolol succinate 50 mg 50 mg PO DAILY 09/20/21 02/18/22 tablet,extended release 24 hr docusate sodium 100 mg capsule 100 mg PO BID PRN Constipation 01/13/22 02/18/22 atorvastatin 40 mg tablet 40 mg PO QAM 02/18/22 02/18/22 azithromycin 250 mg tablet 250 mg PO MOWEFR 02/18/22 02/18/22 Previous Rx's Medication Instructions Recorded nebulizer accessories #1 ea 12/22/20 ferrous sulfate 325 mg (65 mg 325 mg PO BID #60 tabs 02/01/22 iron) tablet,delayed release multivitamin with folic acid 400 1 tab PO QAM #30 tabs 05/03/21 mcg tablet (Daily-[place] (with folic acid)) polyethylene glycol 3350 17 gram 17 g PO DAILY PRN constipation #30 05/03/21 oral powder packet (Miralax) ea albuterol sulfate 90 mcg/actuation 1 - 2 puff inhalation Q4H PRN 09/25/21 aerosol inhaler Shortness Of Breath #54 grams nebulizers (Compact Compressor #1 ea 09/29/21 Nebulizer) furosemide 20 mg tablet (Lasix) 20 mg PO Q OTHER DAY #15 tabs 11/02/21 fluticasone 500 mcg-salmeterol 50 1 inh inhalation BID #90 puffs 11/15/21 mcg/dose blistr powdr for inhalation (Advair Diskus) umeclidinium 62.5 mcg/actuation 1 inh inhalation QAM #30 ea 12/07/21 blister powder for inhalation (Incruse Ellipta) sumatriptan succinate 50 mg tablet 50 mg PO Q2H PRN migraine headache 12/08/21 #9 tabs pregabalin 100 mg capsule 100 mg PO BID #60 caps 01/24/22 Results & Data (ED) Vital Signs Vital Signs - 24 hr 02/18/22 15:40 02/18/22 15:45 02/18/22 15:46 Temperature 37.1 C Temperature Source Oral Pulse Rate 98 H Pulse Rate [Apical] Respiratory Rate 22 Respiratory Effort / Characteristics Short of Breath SOB on Exertion Respiratory Depth Normal Blood Pressure 141/94 H Blood Pressure [Right Arm] Blood Pressure Mean 109 Blood Pressure Mean [Right Arm] Pulse Oximetry 97 97 Oxygen Delivery Method Nasal Cannula Nasal Cannula Oxygen Flow Rate 8 8 Sepsis Recent Fever Within 48 Hours No Sepsis New/Unexplained Change in Mental Status No Sepsis Action Taken by Nursing No Action Required Oxygen Flow Rate - Titration 6 Pulse Oximetry Post Tiitration 96 02/18/22 16:17 02/18/22 16:31 02/18/22 17:03 Temperature Temperature Source Pulse Rate Pulse Rate [Apical] 90 92 H 93 H Respiratory Rate 20 19 20 Respiratory Effort / Characteristics Non-Labored Spontaneous Non-Labored Respiratory Depth Normal Normal Blood Pressure Blood Pressure [Right Arm] 131/80 140/92 Blood Pressure Mean Blood Pressure Mean [Right Arm] 97 108 Pulse Oximetry 96 97 100 Oxygen Delivery Method Room Air Nasal Cannula Nebulizer Oxygen Flow Rate 6 5 Sepsis Recent Fever Within 48 Hours Sepsis New/Unexplained Change in Mental Status Sepsis Action Taken by Nursing Oxygen Flow Rate - Titration Pulse Oximetry Post Tiitration 02/18/22 18:02 Temperature Temperature Source Pulse Rate Pulse Rate [Apical] 110 H Respiratory Rate 20 Respiratory Effort / Characteristics Non-Labored Respiratory Depth Normal Blood Pressure Blood Pressure [Right Arm] 142/89 H Blood Pressure Mean Blood Pressure Mean [Right Arm] 106 Pulse Oximetry 97 Oxygen Delivery Method Nasal Cannula Oxygen Flow Rate 5 Sepsis Recent Fever Within 48 Hours Sepsis New/Unexplained Change in Mental Status Sepsis Action Taken by Nursing Oxygen Flow Rate - Titration Pulse Oximetry Post Tiitration Home Medications Current Medication List: was personally reviewed by me Laboratory Data Attestation: I reviewed the patient's lab results. Result diagrams: 02/18/22 16:27 02/18/22 16:27 Lab Results 02/18/22 02/18/22 02/18/22 Range/Units 16:14 16:27 16:27 WBC 8.40 (4.8-10.8) K/ul RBC 4.46 L (4.63-6.08) M/uL Hgb 12.4 L (14.0-18.0) g/dl Hct 40.0 L (40.1-51.0) % MCV 89.7 (80.0-100.0) fL MCH 27.8 (25.0-34.0) pg MCHC 31.0 L (32.0-36.0) g/dL RDW Std Deviation 47.8 H (36.4-46.3) fL RDW Coeff of Jem 14.6 H (11.5-14.5) % Plt Count 235 (130-400) K/uL MPV 9.2 L (9.4-12.4) fL Immature Gran % (Auto) 0.2 % Neut % (Auto) 76.3 % Lymph % (Auto) 8.5 % [place] % (Auto) 3.7 % Eos % (Auto) 10.8 % Baso % (Auto) 0.5 % Neut # (Auto) 6.41 (1.4-6.5) K/uL Lymph # (Auto) 0.71 L (1.2-3.4) K/uL [place] # (Auto) 0.31 (0.24-0.82) K/uL Eos # (Auto) 0.91 H (0-0.50) K/uL Baso # (Auto) 0.04 (0-0.2) K/uL Immature Gran # (Auto) 0.02 (0.00-0.02) K/uL PT 10.5 (9.0-12.0) Seconds INR 1.0 (0.9-1.1) APTT 24.2 (21.0-31.0) Seconds PTT Ratio 0.9 Sodium (136-145) mmol/L Potassium (3.5-5.1) mmol/L Chloride (98-107) mmol/L Carbon Dioxide (21-32) mmol/L Anion Gap (3-11) BUN (6-23) mg/dl Creatinine (0.6-1.4) mg/dl Est Cr Clr Drug Dosing ml/min Est GFR ( Amer) ml/min Est GFR (Non-Af Amer) ml/min BUN/Creatinine Ratio (10-20) Glucose (70-99(Fasting)) mg/dl Calcium (8.5-10.1) mg/dl Magnesium (1.7-2.4) mg/dl Total Bilirubin (0.2-1.0) mg/dl AST (13-39) U/L ALT (7-52) U/L Alkaline Phosphatase (34-104) U/L Troponin I High Sens (0-20) pg/ml B-Natriuretic Peptide (0-100) pg/ml Total Protein (6.0-8.3) gm/dl Albumin (3.4-5.0) gm/dl Globulin (2.5-4.0) gm/dl Albumin/Globulin Ratio (0.9-2) Procalcitonin (0-0.5) ng/ml SARS-CoV-2, RNA, NAAT NEGATIVE (NEGATIVE) 02/18/22 02/18/22 02/18/22 Range/Units 16:27 16:27 16:27 WBC (4.8-10.8) K/ul RBC (4.63-6.08) M/uL Hgb (14.0-18.0) g/dl Hct (40.1-51.0) % MCV (80.0-100.0) fL MCH (25.0-34.0) pg MCHC (32.0-36.0) g/dL RDW Std Deviation (36.4-46.3) fL RDW Coeff of Jem (11.5-14.5) % Plt Count (130-400) K/uL MPV (9.4-12.4) fL Immature Gran % (Auto) % Neut % (Auto) % Lymph % (Auto) % [place] % (Auto) % Eos % (Auto) % Baso % (Auto) % Neut # (Auto) (1.4-6.5) K/uL Lymph # (Auto) (1.2-3.4) K/uL [place] # (Auto) (0.24-0.82) K/uL Eos # (Auto) (0-0.50) K/uL Baso # (Auto) (0-0.2) K/uL Immature Gran # (Auto) (0.00-0.02) K/uL PT (9.0-12.0) Seconds INR (0.9-1.1) APTT (21.0-31.0) Seconds PTT Ratio Sodium 141 (136-145) mmol/L Potassium 4.1 (3.5-5.1) mmol/L Chloride 102 (98-107) mmol/L Carbon Dioxide 35 H (21-32) mmol/L Anion Gap 4 (3-11) BUN 15 (6-23) mg/dl Creatinine 0.84 (0.6-1.4) mg/dl Est Cr Clr Drug Dosing 95.6 ml/min Est GFR ( Amer) 103.5 ml/min Est GFR (Non-Af Amer) 89.3 ml/min BUN/Creatinine Ratio 17.9 (10-20) Glucose 102 H (70-99(Fasting)) mg/dl Calcium 9.6 (8.5-10.1) mg/dl Magnesium 2.4 (1.7-2.4) mg/dl Total Bilirubin 0.6 (0.2-1.0) mg/dl AST 17 (13-39) U/L ALT 15 (7-52) U/L Alkaline Phosphatase 94 (34-104) U/L Troponin I High Sens 3.6 (0-20) pg/ml B-Natriuretic Peptide 22 (0-100) pg/ml Total Protein 7.6 (6.0-8.3) gm/dl Albumin 4.0 (3.4-5.0) gm/dl Globulin 3.6 (2.5-4.0) gm/dl Albumin/Globulin Ratio 1.1 (0.9-2) Procalcitonin < 0.05 (0-0.5) ng/ml SARS-CoV-2, RNA, NAAT (NEGATIVE) Administered Medications Albuterol (Albut/Ipratrop 3mg/0.5mg Neb 3 Ml Vial) 3 ml NEB QIDR DEBBY; Protocol Stop: 03/20/22 20:10 Last Admin: 02/18/22 20:34 Dose: 3 ml Documented By: AMBER Discontinued Medications Albuterol (Albut/Ipratrop 3mg/0.5mg Neb 3 Ml Vial) 12 ml INH ONE STA Stop: 02/18/22 15:52 Last Admin: 02/18/22 16:31 Dose: 12 ml Documented By: ELADIO Magnesium Sulfate/Dextrose (Magnesium Sulfate / D5w) 1 gm in 100 mls @ 100 mls/ hr IV Q1H DEBBY Stop: 02/18/22 17:59 Last Infusion: 02/18/22 18:31 Dose: 0 mls/hr Documented By: Admin: 02/18/22 17:12 Dose: 100 mls/hr Documented By: Infusion: 02/18/22 17:11 Dose: 0 mls/hr Documented By: Admin: 02/18/22 16:13 Dose: 100 mls/hr Documented By: BENNETT Imaging Data Radiologist's Impression: Chest X-Ray 02/18/22 15:51 XR chest 1V portable CLINICAL HISTORY: Dyspnea COMPARISON STUDY: Chest CT September 20, 2021. Chest radiograph January 16, 2022. FINDINGS: Emphysema is better depicted on prior chest CT. There is no pneumothorax or pleural effusion. Low lung volumes are noted. Linear bibasilar opacities favor atelectasis. No consolidation is identified. Cardiac mediastinal silhouette is stable. There is no evidence for pulmonary edema. IMPRESSION: Low lung volumes with bibasilar opacities suggestive of atelectasis. ACT 112: Negative or not required by law. Electronically signed by: Chaitanya Srivastava M.D. 02/18/2022 4:06 PM Discharge Plan Visit Data Chief Complaint: Shortness of Breath/Dyspnea ED Provider: David Santoro Discharge Problem: Acute exacerbation of chronic obstructive pulmonary disease, Acute dyspnea Patient Disposition: Admitted As Inpatient Discharge Instructions Interventions: ED Discharge Assessment Last Done: 02/18/22 20:03
[2022-02-18] MEDS ORDERED: ALBUT/IPRATROP 3MG/0.5MG NEB 3 ML VIAL INH STA (15:51)
--- NOTE | 2022-02-18 16:07 | XRay Report ---
XR chest 1V portable CLINICAL HISTORY: Dyspnea COMPARISON STUDY: Chest CT September 20, 2021. Chest radiograph January 16, 2022. FINDINGS: Emphysema is better depicted on prior chest CT. There is no pneumothorax or pleural effusio n. Low lung volumes are noted. Linear bibasilar opacities favor atelectasis. No consolidation is iden tified. Cardiac mediastinal silhouette is stable. There is no evidence for pulmonary edema. IMPRESSION: Low lung volumes with bibasilar opacities suggestive of atelectasis. ACT 112: Negative or not required by law. Electronically signed by: Chaitanya Srivastava M.D. 02/18/2022 4:06 PM
[2022-02-18] MEDS: MAGNESIUM SULFATE / D5W 1 GM/100 ML BAG IV SCH ×2 (16:13→17:12)
[2022-02-18 16:37] LABS: Basophils # (auto) 0.04 K/uL (0-0.2); Basophils % (auto) 0.5 %; Eosinophils # (auto) 0.91 K/uL (0-0.50); Eosinophils % (auto) 10.8 %; Hemoglobin 12.4 g/dl (14.0-18.0); Immature Granulocytes # (auto) 0.02 K/uL (0.00-0.02); Immature Granulocytes % (auto) 0.2 %; Lymphocytes # (auto) 0.71 K/uL (1.2-3.4); Lymphocytes % (auto) 8.5 %; Mean Corpuscular Hemoglobin 27.8 pg (25.0-34.0); Mean Corpuscular Volume 89.7 fL (80.0-100.0); Mean Platelet Volume 9.2 fL (9.4-12.4); Monocytes # (auto) 0.31 K/uL (0.24-0.82); Monocytes % (auto) 3.7 %; Neutrophils # (auto) 6.41 K/uL (1.4-6.5); Neutrophils % (auto) 76.3 %; Platelet Count 235 K/uL (130-400); RDW Coefficient of Variation 14.6 % (11.5-14.5); RDW Standard Deviation 47.8 fL (36.4-46.3); Red Blood Count 4.46 M/uL (4.63-6.08)
[2022-02-18 16:48] LABS: Partial Thromboplastin Ratio 0.9; Partial Thromboplastin Time 24.2 Seconds (21.0-31.0); Prothrombin Time 10.5 Seconds (9.0-12.0)
[2022-02-18 16:59] LABS: Albumin Globulin Ratio 1.1 (0.9-2); BUN Creatinine Ratio 17.9 (10-20); Bilirubin,Total 0.6 mg/dl (0.2-1.0); Calcium 9.6 mg/dl (8.5-10.1); Creatinine Clr Calc Pharmacy 95.6 ml/min; Est GFR (African American) 103.5 ml/min; Est GFR (Non-African American) 89.3 ml/min; Globulin 3.6 gm/dl (2.5-4.0); Magnesium 2.4 mg/dl (1.7-2.4); Potassium 4.1 mmol/L (3.5-5.1); Total Protein 7.6 gm/dl (6.0-8.3)
[2022-02-18 17:02] LABS: Troponin I High Sensitivity 3.6 pg/ml (0-20)
--- NOTE | 2022-02-18 18:07 | History & Physical Report ---
Date of Service February 18, 2022 Assessment & Plan (1) Acute exacerbation of chronic obstructive pulmonary disease (COPD): Plan: Patient has worsening of his baseline COPD typically is on 3 to 4 L oxygen at home he was hypoxic on this according to EMS. He did receive Solu-Medrol nebulizers at the ER without much subjective or objective improvement. Patient sees Dr. Dominguez who on his last visit in October describes of having very severe obstructive lung disease with chronic hypoxemic and hypercarbic respiratory failure at that time the patient was on chronic prednisone therapy Patient will be on Solu-Medrol intravenously he will continue on his umeclidinium plus DuoNebs., Fluticasone salmeterol be held and restarted once he improves, patient did not get his Daliresp filled due to cost as was prescribed in October by Dr. Dominguez Patient seems to prefer to try to keep his saturations in the high 90s although likely would benefit from tolerating the lower 90s. Patient be given azithromycin for pulmonary improvement (2) Essential hypertension: Plan: Continues on metoprolol succinate, Lasix 20 mg every other day Patient also on atorvastatin for secondary risk prevention Patient does describe some atypical chest pain on presentation however sharp in nature fleeting and reproducible by touch, initial troponin is negative (3) Anemia: Plan: Patient is anemia is stable he will maintain himself on supplemental iron, B12. (4) BPH loc w urin obs/LUTS: Plan: Patient is currently without symptoms, he does have a large inguinal hernia on the left side (5) Superior mesenteric artery aneurysm: Plan Patient is a full code DVT prevention will be enoxaparin History of Present Illness Primary Care Provider: Russell Dang DO Pt presents with increased shortness of breath which is been ongoing for approximate 3 to 4 days. The patient is also had cough with occasional sputum. No exertional chest pain symptoms and no change with position or activity. Patient has not take anything for it at home. The patient has noticed some slight swelling his legs as well. Patient denies any current smok ing last smoked 2 to 3 years ago. The patient does have a known history of COPD and does wear 4 L at all times. Most recently the patient had increase his oxygen to 6 L to walk across his room and upstairs. Patient did not fill his Daliresp prescription as given by Dr. Dominguez due to cost. EMS did give the patient Solu-Medrol 125 mg and a DuoNeb treatment. Pt is Covid negative and has had little improvement in symptoms during treatment in the ER Allergies Allergy/AdvReac Type Severity Reaction Status Date / Time No Known Allergies Allergy Verified 02/18/22 15:43 Home Medications Medication Instructions Recorded Confirmed Type Lactobacills gasseri-Bifidobac 1 cap PO QAM 02/25/19 02/18/22 History bifidum,longum 1.5 billion cell capsule (Probiotic Colon Support) nebulizer accessories #1 ea 12/22/20 02/06/22 Rx cyanocobalamin (vitamin B-12) 1,000 mcg PO HS 03/08/21 02/18/22 History 1,000 mcg tablet (Vitamin B-12) ferrous sulfate 325 mg (65 mg 325 mg PO BID #60 tabs 05/03/21 02/18/22 Rx iron) tablet,delayed release multivitamin with folic acid 400 1 tab PO QAM #30 tabs 05/03/21 02/18/22 Rx mcg tablet (Daily-[place] (with folic acid)) polyethylene glycol 3350 17 gram 17 g PO DAILY PRN constipation #30 05/03/21 02/18/22 Rx oral powder packet (Miralax) ea magnesium oxide 400 mg (241.3 mg 400 mg PO QAM 06/17/21 02/18/22 History magnesium) tablet metoprolol succinate 50 mg 50 mg PO DAILY 09/20/21 02/18/22 History tablet,extended release 24 hr albuterol sulfate 90 mcg/actuation 1 - 2 puff inhalation Q4H PRN 09/25/21 02/18/22 Rx aerosol inhaler Shortness Of Breath #54 grams nebulizers (Compact Compressor #1 ea 09/29/21 02/06/22 Rx Nebulizer) furosemide 20 mg tablet (Lasix) 20 mg PO Q OTHER DAY #15 tabs 11/02/21 02/18/22 Rx fluticasone 500 mcg-salmeterol 50 1 inh inhalation BID #90 puffs 11/15/21 02/18/22 Rx mcg/dose blistr powdr for inhalation (Advair Diskus) umeclidinium 62.5 mcg/actuation 1 inh inhalation QAM #30 ea 12/07/21 02/18/22 Rx blister powder for inhalation (Incruse Ellipta) sumatriptan succinate 50 mg tablet 50 mg PO Q2H PRN migraine headache 12/08/21 02/18/22 Rx #9 tabs docusate sodium 100 mg capsule 100 mg PO BID PRN Constipation 01/13/22 02/18/22 History pregabalin 100 mg capsule 100 mg PO BID #60 caps 01/24/22 02/18/22 Rx atorvastatin 40 mg tablet 40 mg PO QAM 02/18/22 02/18/22 History azithromycin 250 mg tablet 250 mg PO MOWEFR 02/18/22 02/18/22 History Past Med/Surg History Medical History Chronic anemia Colitis COPD (chronic obstructive pulmonary disease) Gout Hyperlipidemia Hypertension Incarcerated left inguinal hernia Low back pain Migraine On home oxygen therapy 2-4L continuous Orthostatic hypotension Per records Osteoarthritis Right inguinal hernia Seizure 2018 (no known etiology) 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 (multiple attempts at SAB unsuccessful 2/2 to bone per anesthesia record) S/P foot surgery RT/LEFT (HARDWARE INTACT) Family History Father Hypertension Aneurysm Mother Swelling Uncle Myocardial infarction Other No significant family history Denies family history of Ovarian cancer Prostate cancer Breast cancer Colorectal cancer Social History Smoking Status: Former smoker Tobacco Type: Cigarettes Age Started Using Tobacco: 14; Age Quit Using Tobacco: 69; packs per day: 1; Second Hand Exposure: No; Hx Alcohol Use: No (Quit 2020) Hx Substance Use: No Preferred Language: Bermudian Communication Ability: Effective Visual Impairment: Limited Hearing Ability: Normal Gluer Machine 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 Operator Required: No Beliefs That Will Affect Care: None marital status: Current Living Situation: Spouse Current Living Situation Comment: unknown intubated and sedated current occupational status: retired How many Children do You have: 2 Feels Safe at Home: Yes Childhood Exposure to Second-Hand Smoke: Yes Dental Care, Regularly: No Physical Activity Frequency: Does not Exercise Seatbelt Use: always Sunscreen Use: No Assistive Devices: Cane, Glasses and Oxygen - Continuous Review of Systems Review of Systems: Moderate respiratory distress on presentation using accessory muscles respiration no headache, no visual changes no speech or swallowing issues no chest pain, pressure or palpitations Increase shortness of breath over his baseline with dyspnea on exertion, cough productive of marte mucus typically has no cough no abdominal pain, nausea or vomiting, diarrhea or constipation no dysuria, hematuria or frequency Patient has a large inguinal hernia in hopes of repair in the future. Previous pulmonary evaluation discourage surgical anesthesia due to his lung disease no focal joint pain or swelling no back pain, CVA tenderness or radicular pain no bruising, bleeding or rashes no focal signs of weakness or numbness or altered sensation no complaints of anxiety or depression.. Physical Exam Physical Exam: The patient appeared awake and alert no distress except for his respiratory distress Vital signs as documented. Tachycardic tachypneic on 6 L of oxygen with 97% saturations Head exam is normocephalic atraumatic Neck is without JVD, thyromegaly, or carotid bruits. Lungs coarse breath sounds throughout with worsening at the apices with prolonged expiratory phase Cardiac exam, Rhythm is tachycardic.. No murmurs, rubs or gallops. Abdominal exam reveals normal bowel sounds, soft non tender, no masses Extremities are trace edematous and both pedal pulses are present Neurologic exam is alert and oriented, no focal loss of strength or sensation Skin is without bruises or rashes Psychologically is without concerns for anxiety or depression.. Results & Data Results & Data ([facility]) Vital Signs (Past 12 Hours) Vital Signs Temp Pulse Pulse Resp BP BP Pulse Ox 02/18/22 17:03 93 H 20 140/92 100 02/18/22 16:31 92 H 19 97 02/18/22 16:17 90 20 131/80 96 02/18/22 15:46 97 02/18/22 15:40 98.8 F 98 H 22 141/94 H 97 O2 Del Method O2 Flow Rate 02/18/22 17:03 Nebulizer 02/18/22 16:31 Nasal Cannula 5 02/18/22 16:17 Room Air 6 02/18/22 15:46 Nasal Cannula 8 02/18/22 15:40 Nasal Cannula 8 Laboratory Results Chest X-Ray 02/18/22 15:51 XR chest 1V portable CLINICAL HISTORY: Dyspnea COMPARISON STUDY: Chest CT September 20, 2021. Chest radiograph January 16, 2022. FINDINGS: Emphysema is better depicted on prior chest CT. There is no pneumothorax or pleural effusion. Low lung volumes are noted. Linear bibasilar opacities favor atelectasis. No consolidation is identified. Cardiac mediastinal silhouette is stable. There is no evidence for pulmonary edema. IMPRESSION: Low lung volumes with bibasilar opacities suggestive of atelectasis. Electronically signed by: Chaitanya Srivastava M.D. 02/18/2022 4:06 PM ECG Additional Comments: EKG shows sinus rhythm without acute ST or T wave changes PG Care Time/CCT Total # of Minutes Spent Total Time Spent with Patient: Total time spent is greater than 50% in coordination of care (as documented) at patient's floor/unit and/or counseling patient: Coding Level of Care Code 30871 Initial Inpt Care Lvl 3 Diagnoses Acute exacerbation of chronic obstructive pulmonary disease (COPD) J44.1 Essential hypertension I10 Anemia D64.9 Anemia type: unspecified type BPH loc w urin obs/LUTS N40.1 Superior mesenteric artery aneurysm I72.8 (1) Anemia Anemia type: unspecified type Qualified Code(s): D64.9 - Anemia, unspecified
[2022-02-18] MEDS ORDERED: ACETAMINOPHEN 325 MG TAB PO PRN (20:11)
[2022-02-18] MEDS ORDERED: hydrALAZINE HCL 20 MG/ML VIAL IV PRN (20:11)
[2022-02-18] MEDS ORDERED: ONDANSETRON INJ 2 MG/ML 2 ML VIAL IV PRN (20:11)
[2022-02-18] MEDS ORDERED: DOCUSATE SODIUM 100 MG CAP PO PRN (20:11)
[2022-02-18] MEDS ORDERED: POLYETHYLENE (MIRALAX) 17 GM PACK PO PRN (20:11)
[2022-02-18] MEDS: ALBUT/IPRATROP 3MG/0.5MG NEB 3 ML VIAL NEB SCH (20:34)
[2022-02-18] MEDS: FERROUS SULFATE 325 MG TAB PO SCH (21:55)
[2022-02-18] MEDS: CYANOCOBALAMIN (B-12) 500 MCG TABLET PO SCH (21:56)
[2022-02-18] MEDS: methylPREDNISolone 40 MG in SYRINGE 0 ML IV SCH (21:56)
[2022-02-18] MEDS: guaiFENesin 600 MG TABCR PO SCH (21:56)
[2022-02-18] MEDS: PREGABALIN 100 MG CAP PO SCH (21:56)
[2022-02-19] MEDS ORDERED: KETOROLAC TROMETHAMINE 15 MG/ML VIAL IV ONE (03:08)
[2022-02-19] MEDS: methylPREDNISolone 40 MG in SYRINGE 0 ML IV SCH ×3 (05:43→21:11)
[2022-02-19] MEDS: ALBUT/IPRATROP 3MG/0.5MG NEB 3 ML VIAL NEB SCH ×5 (07:07→23:47)
[2022-02-19 07:57] LABS: Hematocrit (blood only) 40.7 % (40.1-51.0); Hemoglobin 12.9 g/dl (14.0-18.0); Mean Corpuscular Hgb Conc 31.7 g/dL (32.0-36.0); Mean Corpuscular Volume 88.3 fL (80.0-100.0); Mean Platelet Volume 9.9 fL (9.4-12.4); Platelet Count 268 K/uL (130-400); RDW Coefficient of Variation 14.6 % (11.5-14.5); Red Blood Count 4.61 M/uL (4.63-6.08); White Blood Count 9.87 K/ul (4.8-10.8)
[2022-02-19 08:17] LABS: BUN Creatinine Ratio 24.7 (10-20); Calcium 9.8 mg/dl (8.5-10.1); Creatinine Clr Calc Pharmacy 94.7 ml/min; Est GFR (African American) 105.1 ml/min; Est GFR (Non-African American) 90.7 ml/min; Magnesium 2.2 mg/dl (1.7-2.4); Potassium 4.7 mmol/L (3.5-5.1)
[2022-02-19] MEDS: UMECLIDINIUM BROMIDE 62.5MCG/BLISTER 7 PUFFS/INHALER INH SCH (09:08)
[2022-02-19] MEDS: ATORVASTATIN 40 MG TAB PO SCH (09:08)
[2022-02-19] MEDS: AZITHROMYCIN 250 MG TAB PO SCH (09:10)
[2022-02-19] MEDS: ENOXAPARIN INJ 40 MG/0.4 ML SYR SQ SCH (09:10)
[2022-02-19] MEDS: ADVANCED PROBIOTIC 1250 MG CAPSULE PO SCH (09:10)
[2022-02-19] MEDS: guaiFENesin 600 MG TABCR PO SCH ×2 (09:10→21:10)
[2022-02-19] MEDS: FERROUS SULFATE 325 MG TAB PO SCH ×2 (09:10→21:11)
[2022-02-19] MEDS: MAGNESIUM OXIDE 400 MG TAB PO SCH (09:11)
[2022-02-19] MEDS: MULTIVITAMIN TAB PO SCH (09:11)
[2022-02-19] MEDS: METOPROLOL SUCC 50MG EXT REL TAB PO SCH (09:11)
[2022-02-19] MEDS: PREGABALIN 100 MG CAP PO SCH ×2 (09:16→21:12)
--- NOTE | 2022-02-19 12:16 | Hospitalist Progress Note ---
Date of Service February 19, 2022 Assessment & Plan (1) Acute exacerbation of chronic obstructive pulmonary disease (COPD): Plan: Improving. Continue current treatment plan including parenteral steroid therapy. Patient will be on Solu-Medrol intravenously and will continue on his umeclidinium plus DuoNebs., Fluticasone salmeterol currently on hold. Patient did not get his Daliresp filled as recommended by his echo technologist due to cost. Sputum culture pending. He may have associated bronchitis. No pneumonia seen on chest x-ray (2) Essential hypertension: Plan: Continues on metoprolol succinate and Lasix . Currently stable (3) Anemia: Plan: Mild. Stable . Supplemental iron, B12. Serial labs (4) BPH loc w urin obs/LUTS: Plan: Patient is currently without symptoms. He does have a large nonincarcerated inguinal hernia on the left side (5) Superior mesenteric artery aneurysm: Plan: Aware. No treatment necessary at this time (6) Respiratory failure with hypoxia and hypercapnia: Plan: This is acute on chronic. Treat underlying COPD exacerbation. Would seek to maintain saturations in the low 90% range to minimize CO2 retention. Plan Patient is a full code DVT prevention : enoxaparin Disposition: Anticipate eventual discharge to home Admission and Anticipated Discharge Date Admission Date: February 18, 2022 Subjective Alert and oriented. No acute distress. Hopefully he will continue to respond to current medical therapy and be able to be discharged back to his home within the next day or 2. He is scheduled to have his large inguinal hernia repaired at [facility] in the near future. Review of Systems Review of Systems: Constitutional-no fever or chills ENT-no blurred vision, no double vision, no epistaxis, no sore throat Respiratory-shortness of breath with exertion. Productive cough. Wheezing. Cardiac-no palpitations, no chest pain, no syncope GI-no nausea, vomiting, diarrhea, melena, hematochezia -no urinary retention, no urinary incontinence, no dysuria, no hematuria Musculoskeletal-no joint pain, no muscle tenderness Skin-no bruising, no rashes, no pruritus Neuro-no isolated weakness, no paresthesia, no weakness Psych-no depression, no anxiety Physical Exam Physical Exam: General-alert and oriented x3, no fevers, no chills HEENT-head atraumatic and normocephalic, pupils equal and reactive to light, extraocular muscles intact Neck-no lymphadenopathy or thyromegaly, trachea midline Chest-markedly diminished breath sounds bilaterally. Bilateral end expiratory wheezing. No dullness to percussion Cardiac-regular rate and rhythm, normal S1 and S2, no murmurs Abdomen-normal bowel sounds, nontender, no hepatosplenomegaly. Large nontender nonincarcerated left inguinal hernia involving the scrotum Extremities-no cyanosis, clubbing, or edema Neuro-cranial nerves II through XII intact, motor and sensory function within normal limits, strength symmetrical , no focal deficits Psych-normal affect, normal mood Results & Data Results & Data ([facility]) Vital Signs (Past 12 Hours) Vital Signs Temp Pulse Resp BP Pulse Ox O2 Del Method O2 Flow Rate 02/19/22 11:44 36.6 C 111 H 19 143/78 H 94 Nasal Cannula 4 02/19/22 11:10 104 H 20 98 Nasal Cannula 4 02/19/22 08:00 Nasal Cannula 5 02/19/22 07:48 36.8 C 112 H 19 146/77 H 97 Nasal Cannula 4 02/19/22 07:07 104 H 22 100 Nasal Cannula 6 02/19/22 02:59 36.6 C 94 H 22 146/89 H 100 Nasal Cannula 6 Laboratory Results 02/19/22 07:09 02/19/22 07:09 PG Care Time/CCT Total # of Minutes Spent Total Time Spent with Patient: Total time spent is greater than 50% in coordination of care (as documented) at patient's floor/unit and/or counseling patient: Coding Level of Care Code 22632 Subseq Hosp Care Lvl 3 Diagnoses Acute exacerbation of chronic obstructive pulmonary disease (COPD) J44.1 Essential hypertension I10 Anemia D64.9 Anemia type: unspecified type BPH loc w urin obs/LUTS N40.1 Superior mesenteric artery aneurysm I72.8 Respiratory failure with hypoxia and hypercapnia J96.91; J96.92 (1) Anemia Anemia type: unspecified type Qualified Code(s): D64.9 - Anemia, unspecified
[2022-02-19] MEDS ORDERED: KETOROLAC TROMETHAMINE 15 MG/ML VIAL IV PRN (13:17)
[2022-02-19] MEDS: CYANOCOBALAMIN (B-12) 500 MCG TABLET PO SCH (21:10)
--- NOTE | 2022-02-19 22:39 | Electrocardiogram Report ---
Test Reason : Blood Pressure : / mmHG Vent. Rate : 099 BPM Atrial Rate : 099 BPM P-R Int : 206 ms QRS Dur : 064 ms QT Int : 326 ms P-R-T Axes : 055 042 038 degrees QTc Int : 418 ms Sinus rhythm with 1st degree A-V block When compared with ECG of 20-SEP-2021 16:59, VT interval has increased Confirmed by Atif Mccall ([id number]) on 02/19/2022 10:39:08 PM Referred By: REFERRED SELF Confirmed By:Atif Mccall
[2022-02-20] MEDS: ALBUT/IPRATROP 3MG/0.5MG NEB 3 ML VIAL NEB SCH ×6 (04:02→23:10)
[2022-02-20 06:18] LABS: Hematocrit (blood only) 37.6 % (40.1-51.0); Hemoglobin 11.9 g/dl (14.0-18.0); Mean Corpuscular Hemoglobin 27.5 pg (25.0-34.0); Mean Corpuscular Hgb Conc 31.6 g/dL (32.0-36.0); Mean Platelet Volume 9.4 fL (9.4-12.4); Platelet Count 234 K/uL (130-400); RDW Coefficient of Variation 14.6 % (11.5-14.5); RDW Standard Deviation 46.8 fL (36.4-46.3); Red Blood Count 4.32 M/uL (4.63-6.08); White Blood Count 10.64 K/ul (4.8-10.8)
[2022-02-20] MEDS: methylPREDNISolone 40 MG in SYRINGE 0 ML IV SCH (06:34)
[2022-02-20 06:51] LABS: BUN Creatinine Ratio 37.2 (10-20); Calcium 9.6 mg/dl (8.5-10.1); Creatinine Clr Calc Pharmacy 98.5 ml/min; Est GFR (African American) 106.7 ml/min; Est GFR (Non-African American) 92.1 ml/min; Magnesium 2.2 mg/dl (1.7-2.4)
[2022-02-20] MEDS: UMECLIDINIUM BROMIDE 62.5MCG/BLISTER 7 PUFFS/INHALER INH SCH (08:21)
[2022-02-20] MEDS: ADVANCED PROBIOTIC 1250 MG CAPSULE PO SCH (08:22)
[2022-02-20] MEDS: METOPROLOL SUCC 50MG EXT REL TAB PO SCH (08:22)
[2022-02-20] MEDS: ATORVASTATIN 40 MG TAB PO SCH (08:22)
[2022-02-20] MEDS: FUROSEMIDE 20 MG TAB PO SCH (08:22)
[2022-02-20] MEDS: FERROUS SULFATE 325 MG TAB PO SCH ×2 (08:22→21:12)
[2022-02-20] MEDS: AZITHROMYCIN 250 MG TAB PO SCH (08:22)
[2022-02-20] MEDS: ENOXAPARIN INJ 40 MG/0.4 ML SYR SQ SCH (08:22)
[2022-02-20] MEDS: MULTIVITAMIN TAB PO SCH (08:22)
[2022-02-20] MEDS: guaiFENesin 600 MG TABCR PO SCH ×2 (08:22→21:12)
[2022-02-20] MEDS: MAGNESIUM OXIDE 400 MG TAB PO SCH (08:22)
[2022-02-20] MEDS: PREGABALIN 100 MG CAP PO SCH ×2 (08:26→21:14)
[2022-02-20] MEDS: methylPREDNISolone 60 MG in SYRINGE 0 ML IV SCH ×2 (13:37→21:12)
--- NOTE | 2022-02-20 14:09 | Hospitalist Progress Note ---
Date of Service February 20, 2022 Assessment & Plan (1) Acute exacerbation of chronic obstructive pulmonary disease (COPD): Plan: -Presents with worsening SOB and wheeze. -Found to be in COPD Excaerbation. -Started on Solumedrol 40mg Q8hrs, Duonebs and Umeclidinium. -Patient still SOB, with wheeze -Will increase solumedrol to 60mg Q8hrs, continue Duonebs and Umeclidinium. -No evidence of PNA on x ray -Sputum cultures growing normal alejandro. - Fluticasone salmeterol currently on hold. 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 (2) Essential hypertension: Plan: Continues on metoprolol succinate and Lasix . Currently stable (3) Anemia: Plan: Mild. Stable . Supplemental iron, B12. Serial labs (4) BPH loc w urin obs/LUTS: Plan: Patient is currently without symptoms. He does have a large nonincarcerated i nguinal hernia on the left side (5) Superior mesenteric artery aneurysm: Plan: Aware. No treatment necessary at this time (6) Respiratory failure with hypoxia and hypercapnia: Plan: This is acute on chronic. Treat underlying COPD exacerbation. Would seek to maintain saturations in the low 90% range to minimize CO2 retention. Plan Patient is a full code DVT prevention : enoxaparin Disposition: Anticipate eventual discharge to home Admission and Anticipated Discharge Date Admission Date: February 18, 2022 Subjective patient seen and examined, still SOB and wheeze, especially on ambukation Review of Systems Review of Systems: All systems reviewed are negative, apart from the ones contained in the history. Physical Exam Physical Exam: The patient is awake, alert and oriented 3, well developed and well nourished, normocephalic and atraumatic, lying in bed and in no acute distress. HEENT--PERRL, EOMI, mucous membranes and oropharynx mildly dry Neck--supple. No JVD. No bruits. Thyroid normal, trachea midline, no adenopathy. Heart--normal S1 and S2. No murmurs, rubs or gallops. Lungs--Reduced air entry on auscultation, bibasilar wheeze. Abdomen--normal bowel sounds and soft. Mild epigastric and left sided abdominal pain Extremities--no cyanosis or clubbing. No edema. Dermatologic--normal skin turgor, normal color, no abnormal lymph nodes, no rash. Neurologic--cranial nerves II through XII grossly intact. Rheumatologic--normal range of motion. Psychiatric--normal affect. Results & Data Results & Data ([facility]) Vital Signs (Past 12 Hours) Vital Signs Temp Pulse Pulse Resp BP BP Pulse Ox 02/20/22 13:13 78 02/20/22 12:17 98.4 F 100 H 20 147/73 H 96 02/20/22 10:59 95 H 18 99 02/20/22 07:00 02/20/22 07:45 98.2 F 106 H 19 130/83 97 02/20/22 06:58 94 H 18 96 02/20/22 04:02 86 20 94 02/20/22 03:20 98.2 F 77 18 120/67 98 O2 Del Method O2 Flow Rate 02/20/22 13:13 02/20/22 12:17 Nasal Cannula 4 02/20/22 10:59 Nasal Cannula 5 02/20/22 07:00 Nasal Cannula 4 02/20/22 07:45 Nasal Cannula 4 02/20/22 06:58 Nasal Cannula 4 02/20/22 04:02 Nasal Cannula 4 02/20/22 03:20 Nasal Cannula 4 PG Care Time/CCT Total # of Minutes Spent Total Time Spent with Patient: Total time spent is greater than 50% in coordination of care (as documented) at patient's floor/unit and/or counseling patient: Coding Level of Care Code 97432 Subseq Hosp Care Lvl 2 Diagnoses Acute exacerbation of chronic obstructive pulmonary disease (COPD) J44.1 Essential hypertension I10 Anemia D64.9 Anemia type: unspecified type BPH loc w urin obs/LUTS N40.1 Superior mesenteric artery aneurysm I72.8 Respiratory failure with hypoxia and hypercapnia J96.91; J96.92 Time Spent (min) 35 (1) Anemia Anemia type: unspecified type Qualified Code(s): D64.9 - Anemia, unspecified
[2022-02-20] MEDS: CYANOCOBALAMIN (B-12) 500 MCG TABLET PO SCH (21:12)
[2022-02-21] MEDS: ALBUT/IPRATROP 3MG/0.5MG NEB 3 ML VIAL NEB SCH ×6 (02:56→22:28)
[2022-02-21] MEDS: methylPREDNISolone 60 MG in SYRINGE 0 ML IV SCH ×3 (05:22→21:12)
[2022-02-21 07:26] LABS: Hematocrit (blood only) 38.7 % (40.1-51.0); Hemoglobin 12.2 g/dl (14.0-18.0); Mean Corpuscular Hemoglobin 27.6 pg (25.0-34.0); Mean Corpuscular Hgb Conc 31.5 g/dL (32.0-36.0); Mean Corpuscular Volume 87.6 fL (80.0-100.0); Mean Platelet Volume 9.5 fL (9.4-12.4); Platelet Count 232 K/uL (130-400); RDW Coefficient of Variation 14.9 % (11.5-14.5); RDW Standard Deviation 47.9 fL (36.4-46.3); Red Blood Count 4.42 M/uL (4.63-6.08); White Blood Count 8.39 K/ul (4.8-10.8)
[2022-02-21 07:45] LABS: BUN Creatinine Ratio 33.3 (10-20); Calcium 9.3 mg/dl (8.5-10.1); Creatinine Clr Calc Pharmacy 88.2 ml/min; Est GFR (African American) 102.1 ml/min; Est GFR (Non-African American) 88.1 ml/min; Magnesium 2.3 mg/dl (1.7-2.4); Potassium 4.7 mmol/L (3.5-5.1)
[2022-02-21] MEDS: ENOXAPARIN INJ 40 MG/0.4 ML SYR SQ SCH (08:23)
[2022-02-21] MEDS: METOPROLOL SUCC 50MG EXT REL TAB PO SCH (08:24)
[2022-02-21] MEDS: FERROUS SULFATE 325 MG TAB PO SCH ×2 (08:24→21:12)
[2022-02-21] MEDS: ADVANCED PROBIOTIC 1250 MG CAPSULE PO SCH (08:24)
[2022-02-21] MEDS: AZITHROMYCIN 250 MG TAB PO SCH (08:24)
[2022-02-21] MEDS: MULTIVITAMIN TAB PO SCH (08:24)
[2022-02-21] MEDS: guaiFENesin 600 MG TABCR PO SCH ×2 (08:24→21:13)
[2022-02-21] MEDS: MAGNESIUM OXIDE 400 MG TAB PO SCH (08:24)
[2022-02-21] MEDS: ATORVASTATIN 40 MG TAB PO SCH (08:24)
[2022-02-21] MEDS: UMECLIDINIUM BROMIDE 62.5MCG/BLISTER 7 PUFFS/INHALER INH SCH (08:25)
[2022-02-21] MEDS: PREGABALIN 100 MG CAP PO SCH ×2 (08:25→21:15)
[2022-02-21] MEDS: cefTRIAXone SODIUM 2,000 MG in DEXTROSE 5% 50 ML IV SCH (10:34)
--- NOTE | 2022-02-21 12:44 | Hospitalist Progress Note ---
Date of Service February 21, 2022 Assessment & Plan (1) Acute exacerbation of chronic obstructive pulmonary disease (COPD): Plan: -Presents with worsening SOB and wheeze. -Found to be in COPD Excaerbation. -Started on Solumedrol 40mg Q8hrs, Duonebs and Umeclidinium. -Patient still SOB, with wheeze, but much improved today -Will continue solumedrol 60mg Q8hrs, continue Duonebs and Umeclidinium. -No evidence of PNA on x ray -Sputum cultures growing MSSA, will add ceftriaxone to his respiratory Azithromycin - Fluticasone salmeterol currently on hold. - Patient did not get his Daliresp filled as recommended by his senior analytic consultant due to cost. (2) Essential hypertension: Plan: Continues on metoprolol succinate and Lasix . Currently stable (3) Anemia: Plan: Mild. Stable . Supplemental iron, B12. Serial labs (4) BPH loc w urin obs/LUTS: Plan: Patient is currently without symptoms. He does have a large nonincarcerated inguinal hernia on the left side scheduled for outpatient repair with [facility] (5) Superior mesenteric artery aneurysm: Plan: Aware. No treatment necessary at this time (6) Respiratory failure with hypoxia and hypercapnia: Plan: This is acute on chronic. Treat underlying COPD exacerbation. Would seek to maintain saturations in the low 90% range to minimize CO2 retention. Plan Patient is a full code DVT prevention : enoxaparin Disposition: Anticipate eventual discharge to home Admission and Anticipated Discharge Date Admission Date: February 18, 2022 Subjective patient seen and examined, still SOB and wheeze, but much improved Review of Systems Review of Systems: All systems reviewed are negative, apart from the ones contained in the history. Physical Exam Physical Exam: The patient is awake, alert and oriented 3, well developed and well nourished, normocephalic and atraumatic, lying in bed and in no acute distress. HEENT--PERRL, EOMI, mucous membranes and oropharynx mildly dry Neck--supple. No JVD. No bruits. Thyroid normal, trachea midline, no adenopathy. Heart--normal S1 and S2. No murmurs, rubs or gallops. Lungs--Reduced air entry on auscultation, bibasilar wheeze. Abdomen--normal bowel sounds and soft. Mild epigastric and left sided abdominal pain Extremities--no cyanosis or clubbing. No edema. Dermatologic--normal skin turgor, normal color, no abnormal lymph nodes, no rash. Neurologic--cranial nerves II through XII grossly intact. Rheumatologic--normal range of motion. Psychiatric--normal affect. Results & Data Results & Data ([facility]) Vital Signs (Past 12 Hours) Vital Signs Temp Pulse Pulse Resp BP Pulse Ox O2 Del Method 02/21/22 08:00 80 02/21/22 08:00 Nasal Cannula 02/21/22 11:02 86 20 94 Nasal Cannula 02/21/22 07:00 98.1 F 108 H 18 147/71 H 98 Nasal Cannula 02/21/22 07:52 92 H 22 99 Nasal Cannula 02/21/22 02:56 99 H 20 97 Nasal Cannula 02/21/22 02:21 97.7 F 95 H 20 129/87 96 Nasal Cannula O2 Flow Rate 02/21/22 08:00 02/21/22 08:00 5 02/21/22 11:02 4.5 02/21/22 07:00 4 02/21/22 07:52 5 02/21/22 02:56 5 02/21/22 02:21 5 PG Care Time/CCT Total # of Minutes Spent Total Time Spent with Patient: Total time spent is greater than 50% in coordination of care (as documented) at patient's floor/unit and/or counseling patient: Coding Level of Care Code 52625 Subseq Hosp Care Lvl 2 Diagnoses Acute exacerbation of chronic obstructive pulmonary disease (COPD) J44.1 Essential hypertension I10 Anemia D64.9 Anemia type: unspecified type BPH loc w urin obs/LUTS N40.1 Superior mesenteric artery aneurysm I72.8 Respiratory failure with hypoxia and hypercapnia J96.91; J96.92 Time Spent (min) 35 (1) Anemia Anemia type: unspecified type Qualified Code(s): D64.9 - Anemia, unspecified
[2022-02-21] MEDS ORDERED: OXYMETAZOLINE 0.05% 30 ML BTL NAE ONE (19:57)
[2022-02-21] MEDS: CYANOCOBALAMIN (B-12) 500 MCG TABLET PO SCH (21:12)
[2022-02-22] MEDS: ALBUT/IPRATROP 3MG/0.5MG NEB 3 ML VIAL NEB SCH ×5 (03:21→19:20)
[2022-02-22] MEDS: methylPREDNISolone 60 MG in SYRINGE 0 ML IV SCH ×2 (06:00→14:15)
[2022-02-22 06:45] LABS: Hemoglobin 12.7 g/dl (14.0-18.0); Mean Corpuscular Hemoglobin 27.7 pg (25.0-34.0); Mean Corpuscular Hgb Conc 31.8 g/dL (32.0-36.0); Mean Corpuscular Volume 87.3 fL (80.0-100.0); Mean Platelet Volume 9.4 fL (9.4-12.4); Platelet Count 229 K/uL (130-400); RDW Coefficient of Variation 14.9 % (11.5-14.5); RDW Standard Deviation 47.6 fL (36.4-46.3); Red Blood Count 4.58 M/uL (4.63-6.08); White Blood Count 8.67 K/ul (4.8-10.8)
[2022-02-22 07:20] LABS: BUN Creatinine Ratio 36.4 (10-20); Calcium 9.2 mg/dl (8.5-10.1); Creatinine Clr Calc Pharmacy 98.7 ml/min; Est GFR (African American) 107.3 ml/min; Est GFR (Non-African American) 92.6 ml/min; Potassium 4.4 mmol/L (3.5-5.1)
[2022-02-22] MEDS: guaiFENesin 600 MG TABCR PO SCH ×2 (08:24→21:05)
[2022-02-22] MEDS: cefTRIAXone SODIUM 2,000 MG in DEXTROSE 5% 50 ML IV SCH (08:24)
[2022-02-22] MEDS: PREGABALIN 100 MG CAP PO SCH ×2 (08:24→21:04)
[2022-02-22] MEDS: ATORVASTATIN 40 MG TAB PO SCH (08:24)
[2022-02-22] MEDS: METOPROLOL SUCC 50MG EXT REL TAB PO SCH (08:25)
[2022-02-22] MEDS: AZITHROMYCIN 250 MG TAB PO SCH (08:25)
[2022-02-22] MEDS: MAGNESIUM OXIDE 400 MG TAB PO SCH (08:25)
[2022-02-22] MEDS: ADVANCED PROBIOTIC 1250 MG CAPSULE PO SCH (08:25)
[2022-02-22] MEDS: UMECLIDINIUM BROMIDE 62.5MCG/BLISTER 7 PUFFS/INHALER INH SCH (08:26)
[2022-02-22] MEDS: FUROSEMIDE 20 MG TAB PO SCH (08:26)
[2022-02-22] MEDS: MULTIVITAMIN TAB PO SCH (08:26)
[2022-02-22] MEDS: FERROUS SULFATE 325 MG TAB PO SCH ×2 (08:26→21:06)
[2022-02-22] MEDS: ENOXAPARIN INJ 40 MG/0.4 ML SYR SQ SCH (08:26)
--- NOTE | 2022-02-22 12:45 | Hospitalist Progress Note ---
Date of Service February 22, 2022 Assessment & Plan (1) Acute exacerbation of chronic obstructive pulmonary disease (COPD): Plan: -Presents to the hospital with worsening SOB and wheeze. -Found to be in COPD Exacerbation. -Started on Solumedrol 60mg Q8hrs, Duonebs and Umeclidinium. -Patient still SOB, with wheeze, especially on ambulation, but much improved today -No evidence of PNA on x ray -Sputum cultures growing MSSA, will add ceftriaxone -Continue supplemental oxygen, 4L nasal canula - Fluticasone salmeterol currently on hold. 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 -He wants to see his Pulmonolgist (2) Essential hypertension: Plan: Continues on metoprolol succinate and Lasix . Currently stable (3) Anemia: Plan: Mild. Stable . Supplemental iron, B12. Serial labs (4) BPH loc w urin obs/LUTS: Plan: Patient is currently without symptoms. He does have a large nonincarcerated inguinal hernia on the left side scheduled for outpatient repair with [facility] (5) Superior mesenteric artery aneurysm: Plan: Aware. No treatment necessary at this time (6) Respiratory failure with hypoxia and hypercapnia: Plan: This is acute on chronic. Treat underlying COPD exacerbation. Would seek to maintain saturations in the low 90% range to minimize CO2 retention. Plan Patient is a full code DVT prevention : enoxaparin Disposition: Anticipate eventual discharge to home Admission and Anticipated Discharge Date Admission Date: February 18, 2022 Subjective patient seen and examined, still SOB and wheeze, but much improved Review of Systems Review of Systems: All systems reviewed are negative, apart from the ones contained in the history. Physical Exam Physical Exam: The patient is awake, alert and oriented 3, well developed and well nourished, normocephalic and atraumatic, lying in bed and in no acute distress. HEENT--PERRL, EOMI, mucous membranes and oropharynx mildly dry Neck--supple. No JVD. No bruits. Thyroid normal, trachea midline, no adenopathy. Heart--normal S1 and S2. No murmurs, rubs or gallops. Lungs--Reduced air entry on auscultation, bibasilar wheeze. Abdomen--normal bowel sounds and soft. Mild epigastric and left sided abdominal pain Extremities--no cyanosis or clubbing. No edema. Dermatologic--normal skin turgor, normal color, no abnormal lymph nodes, no rash . Neurologic--cranial nerves II through XII grossly intact. Rheumatologic--normal range of motion. Psychiatric--normal affect. Results & Data Results & Data ([facility]) Vital Signs (Past 12 Hours) Vital Signs Temp Pulse Resp BP Pulse Ox O2 Del Method O2 Flow Rate 02/22/22 12:00 98.2 F 96 H 18 143/82 H 95 Nasal Cannula 4 02/22/22 10:26 86 18 96 Nasal Cannula 4 02/22/22 07:38 98.6 F 91 H 18 164/84 H 100 Nasal Cannula 4.5 02/22/22 07:20 90 20 96 Nasal Cannula 4 02/22/22 03:21 20 95 Nasal Cannula 4.5 02/22/22 03:09 98.1 F 80 20 128/79 98 Nasal Cannula 4.5 PG Care Time/CCT Total # of Minutes Spent Total Time Spent with Patient: Total time spent is greater than 50% in coordination of care (as documented) at patient's floor/unit and/or counseling patient: Coding Level of Care Code 52239 Subseq Hosp Care Lvl 2 Diagnoses Acute exacerbation of chronic obstructive pulmonary disease (COPD) J44.1 Essential hypertension I10 Anemia D64.9 Anemia type: unspecified type BPH loc w urin obs/LUTS N40.1 Superior mesenteric artery aneurysm I72.8 Respiratory failure with hypoxia and hypercapnia J96.91; J96.92 Time Spent (min) 35 (1) Anemia Anemia type: unspecified type Qualified Code(s): D64.9 - Anemia, unspecified
--- NOTE | 2022-02-22 14:04 | Pulmonary Consultation ---
Date of Consultation February 22, 2022 Assessment & Plan (1) Respiratory failure with hypoxia and hypercapnia: (2) Acute exacerbation of chronic obstructive pulmonary disease: (3) Acute dyspnea: Plan Impression: 70-year-old male with very severe obstructive lung disease and chronic hypoxemic and hypercarbic respiratory failure admitted with exacerbation. The patient has been on chronic prednisone at home. He is failed a trial of noninvasive positive pressure ventilation at night. He was attempted on a trial of Daliresp however medication was too expensive for the patient to consider. He is responding, albeit slowly. His sputum is growing staph aureus which is sensitive. Unclear if this is a true pathogen. Recommendations: 1. Hypercarbic respiratory failure: The patient is not tolerated nocturnal AVAPS previously. He appears compensated. No indication for noninvasive positive pressure ventilation currently.. 2. Acute exacerbation of COPD: Unclear if the patient's current respiratory status enables an adequate breath-hold. For this reason we will discontinue inhalers and place him on nebulized Perforomist and budesonide. Add doxy - see below. Transition to prednisone 20 mg twice a day. Continue Incruse. Continue DuoNebs as needed. 3. May readdress Daliresp in the outpatient setting. Pulmonary rehab may also be a consideration at discharge 4. Continue oxygen to keep saturations at or above 88%. Would not try and target oxygen saturations greater than 90% in this patient given his hypercarbia. 5. The patient has a large inguinal hernia and is contemplating undergo surgical repair. He is felt to be too high of a risk to do here locally and is following with the surgeons at [facility]. 6. Patient was encouraged to remain out of bed up to the chair as much as possible. This will improve his respiratory mechanics. 7. Bronchitis with staff aureus, possible colonization. Patient is currently receiving Rocephin. Will de-escalate to oral doxycycline for 7 days Will continue to follow with you. Thanks for the opportunity of caring for this patient. Feel free to contact us with questions or concerns History of Present Illness Attending Physician: Nona Kitchen MD History of Present Illness Asked by hospitalist to assist in evaluation management this patient with acute on chronic hypoxemic and hypercarbic respiratory failure admitted with acute exacerbation of chronic obstructive pulmonary disease. The patient is well- known to me and follows with me in the outpatient setting. This 71-year-old male with a history of chronic hypoxemic respiratory failure on supplemental oxygen between 2 and 4 L/min at home as well as hypercarbic respiratory failure was admitted to the facility 02/18/2022 with complaints of increasing shortness of breath and cough. He had symptoms for about 3 to 4 days prior to admission. Has been coughing up marte phlegm. He is not had any h emoptysis. He denied chest pain palpitations or significant lower extremity edema. He was admitted to the hospital service and treated with steroids antibiotics and inhaled bronchodilators but has not improved significantly. The patient's biggest concern currently is a large inguinal hernia. The patient reports that its making it difficult to urinate. The surgeons here have deemed him too high of an operative candidate to consider any surgical intervention and he has been evaluated by the surgeons at [facility] to consider operative repair of his hernia. He continues to experience respiratory issues and feels short of breath with any significant ambulation. Allergies Allergy/AdvReac Type Severity Reaction Status Date / Time No Known Allergies Allergy Verified 02/18/22 15:43 Home Medications Medication Instructions Recorded Confirmed Type Lactobacills gasseri-Bifidobac 1 cap PO QAM 02/25/19 02/18/22 History bifidum,longum 1.5 billion cell capsule (Probiotic Colon Support) nebulizer accessories #1 ea 12/22/20 02/06/22 Rx cyanocobalamin (vitamin B-12) 1,000 mcg PO HS 03/08/21 02/18/22 History 1,000 mcg tablet (Vitamin B-12) ferrous sulfate 325 mg (65 mg 325 mg PO BID #60 tabs 05/03/21 02/18/22 Rx iron) tablet,delayed release multivitamin with folic acid 400 1 tab PO QAM #30 tabs 05/03/21 02/18/22 Rx mcg tablet (Daily-[place] (with folic acid)) polyethylene glycol 3350 17 gram 17 g PO DAILY PRN constipation #30 05/03/21 02/18/22 Rx oral powder packet (Miralax) ea magnesium oxide 400 mg (241.3 mg 400 mg PO QAM 06/17/21 02/18/22 History magnesium) tablet metoprolol succinate 50 mg 50 mg PO DAILY 09/20/21 02/18/22 History tablet,extended release 24 hr albuterol sulfate 90 mcg/actuation 1 - 2 puff inhalation Q4H PRN 09/25/21 02/18/22 Rx aerosol inhaler Shortness Of Breath #54 grams nebulizers (Compact Compressor #1 ea 09/29/21 02/06/22 Rx Nebulizer) furosemide 20 mg tablet (Lasix) 20 mg PO Q OTHER DAY #15 tabs 11/02/21 02/18/22 Rx fluticasone 500 mcg-salmeterol 50 1 inh inhalation BID #90 puffs 11/15/21 02/18/22 Rx mcg/dose blistr powdr for inhalation (Advair Diskus) umeclidinium 62.5 mcg/actuation 1 inh inhalation QAM #30 ea 12/07/21 02/18/22 Rx blister powder for inhalation (Incruse Ellipta) sumatriptan succinate 50 mg tablet 50 mg PO Q2H PRN migraine headache 12/08/21 02/18/22 Rx #9 tabs docusate sodium 100 mg capsule 100 mg PO BID PRN Constipation 01/13/22 02/18/22 History pregabalin 100 mg capsule 100 mg PO BID #60 caps 01/24/22 02/18/22 Rx atorvastatin 40 mg tablet 40 mg PO QAM 02/18/22 02/18/22 History azithromycin 250 mg tablet 250 mg PO MOWEFR 02/18/22 02/18/22 History Patient History Medical History Chronic anemia Colitis COPD (chronic obstructive pulmonary disease) Gout Hyperlipidemia Hypertension Incarcerated left inguinal hernia Low back pain Migraine On home oxygen therapy 2-4L continuous Orthostatic hypotension Per records Osteoarthritis Right inguinal hernia Seizure 2018 (no known etiology) 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) Per records Tremor R/L hands/feet Surgical History H/O tooth extraction Lower teeth on 04/23/2018 History of colonoscopy History of open reduction and internal fixation (ORIF) procedure FEMUR L Trimalleolar fracture ORIF (04/30/21): LMA#4 + PNB at [facility] (multiple attempts at SAB unsuccessful 2/2 to bone per anesthesia record) S/P foot surgery RT/LEFT (HARDWARE INTACT) Family History Father Hypertension Aneurysm Mother Swelling Uncle Myocardial infarction Other No significant family history Denies family history of Ovarian cancer Prostate cancer Breast cancer Colorectal cancer Social History Smoking Status: Former smoker Tobacco Type: Cigarettes Age Started Using Tobacco: 14; Age Quit Using Tobacco: 69; packs per day: 1; Cigarettes Per Day: quit 2-4 years ago; Second Hand Exposure: No; Hx Alcohol Use: No Hx Substance Use: No Preferred Language: Croatian Communication Ability: Effective Visual Impairment: Limited Hearing Ability: Normal Seo Manager Required: No Beliefs That Will Affect Care: None marital status: Current Living Situation: Spouse and Family Current Living Situation Comment: , granddaughter and her , 12 year old boy current occupational status: retired How many Children do You have: 2 Feels Safe at Home: Yes Safety Concerns: Feels Safe At This Time Childhood Exposure to Second-Hand Smoke: Yes Dental Care, Regularly: No Physical Activity Frequency: Does not Exercise Seatbelt Use: always Sunscreen Use: No Assistive Devices: Cane, Oxygen - Continuous, Scooter/Electric Scooter and Walker Assistive Devices Comment: Left dentures at home Review of Systems Review of Systems: All systems reviewed & are unremarkable except as noted in Subjective Physical Exam Constitutional: + frail appearing; + not healthy appearing ENMT: Mouth: + edentulous Neck: trachea midline, no thyromegaly Respiratory: able to speak in complete sentences; no respiratory distress, no labored breathing and not tachypneic Auscultation: + rhonchi and + wheezes Cardiovascular: RRR, no murmur, no edema Musculoskeletal: no cyanosis or clubbing, extremities motor strength 5/5 Ambulates with the assistance of a cane Skin: no rashes, warm and dry Psychiatric: A+Ox3, euthymic affect Lymphatic: no cervical or axillary lymphadenopathy Results & Data Results & Data ([facility] [place]) Vital Signs (Past 12 Hours) Vital Signs Temp Pulse Pulse Resp BP Pulse Ox O2 Del Method 02/22/22 06:10 75 02/22/22 08:00 Nasal Cannula 02/22/22 12:00 36.8 C 96 H 18 143/82 H 95 Nasal Cannula 02/22/22 10:26 86 18 96 Nasal Cannula 02/22/22 07:38 37.0 C 91 H 18 164/84 H 100 Nasal Cannula 02/22/22 07:20 90 20 96 Nasal Cannula 02/22/22 03:21 20 95 Nasal Cannula 02/22/22 03:09 36.7 C 80 20 128/79 98 Nasal Cannula O2 Flow Rate 02/22/22 06:10 02/22/22 08:00 4 02/22/22 12:00 4 02/22/22 10:26 4 02/22/22 07:38 4.5 02/22/22 07:20 4 02/22/22 03:21 4.5 02/22/22 03:09 4.5 Critical Care Results & Data Vital Signs (Past 12 Hours) Vital Signs Temp Pulse Pulse Resp BP Pulse Ox O2 Del Method 02/22/22 06:10 75 02/22/22 08:00 Nasal Cannula 02/22/22 12:00 36.8 C 96 H 18 143/82 H 95 Nasal Cannula 02/22/22 10:26 86 18 96 Nasal Cannula 02/22/22 07:38 37.0 C 91 H 18 164/84 H 100 Nasal Cannula 02/22/22 07:20 90 20 96 Nasal Cannula 02/22/22 03:21 20 95 Nasal Cannula 02/22/22 03:09 36.7 C 80 20 128/79 98 Nasal Cannula O2 Flow Rate 02/22/22 06:10 02/22/22 08:00 4 02/22/22 12:00 4 02/22/22 10:26 4 02/22/22 07:38 4.5 02/22/22 07:20 4 02/22/22 03:21 4.5 02/22/22 03:09 4.5 Lab & Micro Results (Past 24 Hours) RBC 4.58 M/uL (4.63-6.08) L 02/22/22 WBC 8.67 K/ul (4.8-10.8) 02/22/22 Hgb 12.7 g/dl (14.0-18.0) L 02/22/22 Hct 40.0 % (40.1-51.0) L 02/22/22 MCV 87.3 fL (80.0-100.0) 02/22/22 MCH 27.7 pg (25.0-34.0) 02/22/22 MCHC 31.8 g/dL (32.0-36.0) L 02/22/22 RDW Standard Deviation 47.6 fL (36.4-46.3) H 02/22/22 RDW Coefficient of Variation 14.9 % (11.5-14.5) H 02/22/22 Plt Count 229 K/uL (130-400) 02/22/22 MPV 9.4 fL (9.4-12.4) 02/22/22 Na 138 mmol/L (136-145) 02/22/22 K 4.4 mmol/L (3.5-5.1) 02/22/22 Cl 102 mmol/L (98-107) 02/22/22 CO2 33 mmol/L (21-32) H 02/22/22 Anion Gap 3 (3-11) 02/22/22 BUN 28 mg/dl (6-23) H 02/22/22 Creatinine 0.77 mg/dl (0.6-1.4) 02/22/22 Estimated GFR ( Amer) 107.3 ml/min 02/22/22 Estimated GFR (Non-Af Amer) 92.6 ml/min 02/22/22 BUN/Creatinine Ratio 36.4 (10-20) H 02/22/22 Glu 105 mg/dl (70-99(Fasting)) H 02/22/22 Ca 9.2 mg/dl (8.5-10.1) 02/22/22 Calcium Level 9.2 mg/dl (8.5-10.1) 02/22/22 06:20 I & O Totals 24 Hours 02/21/22 02/22/22 02/23/22 06:59 06:59 06:59 Intake Total 900 / 900 390 / 390 70 / 70 Output Total 550 / 550 850 / 850 150 / 150 Balance 350 / 350 -460 / -460 -80 / -80 Cumulative 02/18/22 15:20 thru 02/22/22 10:18 Intake Total 3210 Output Total 2150 Balance 1060 RT Ventilator Mngmt (Last Documented) Ventilator Ordered Settings Respiratory Rate 18 02/22/22 12:00 Ventilator - PT Measurements Respiratory Rate 18 PG Care Time/CCT Total # of Minutes Spent Total Time Spent with Patient: Total time spent is greater than 50% in coordination of care (as documented) at patient's floor/unit and/or counseling patient: Coding Level of Care Code 55768 Initial Inpt Care Lvl 3 Diagnoses Respiratory failure with hypoxia and hypercapnia J96.91; J96.92 Acute exacerbation of chronic obstructive pulmonary disease J44.1 Acute dyspnea R06.00
[2022-02-22] MEDS: FORMOTEROL 20 MCG/2 ML VIAL NEB SCH (19:17)
[2022-02-22] MEDS: BUDESONIDE 0.5 MG/2 ML VIAL (PULMICORT) NEB SCH (19:17)
[2022-02-22] MEDS: CYANOCOBALAMIN (B-12) 500 MCG TABLET PO SCH (21:05)
[2022-02-22] MEDS: predniSONE 20 MG TAB PO SCH (21:05)
[2022-02-22] MEDS: DOXYCYCLINE HYCLATE 100 MG CAP PO SCH (21:06)
[2022-02-23] MEDS: ALBUT/IPRATROP 3MG/0.5MG NEB 3 ML VIAL NEB SCH ×5 (00:06→22:40)
[2022-02-23] MEDS: FORMOTEROL 20 MCG/2 ML VIAL NEB SCH ×2 (07:24→19:14)
[2022-02-23] MEDS: BUDESONIDE 0.5 MG/2 ML VIAL (PULMICORT) NEB SCH ×2 (07:24→19:14)
[2022-02-23] MEDS: ADVANCED PROBIOTIC 1250 MG CAPSULE PO SCH (08:48)
[2022-02-23] MEDS: DOXYCYCLINE HYCLATE 100 MG CAP PO SCH ×2 (08:48→20:27)
[2022-02-23] MEDS: METOPROLOL SUCC 50MG EXT REL TAB PO SCH (08:48)
[2022-02-23] MEDS: predniSONE 20 MG TAB PO SCH ×2 (08:51→20:27)
[2022-02-23] MEDS: FERROUS SULFATE 325 MG TAB PO SCH ×2 (08:51→20:28)
[2022-02-23] MEDS: MULTIVITAMIN TAB PO SCH (08:51)
[2022-02-23] MEDS: ENOXAPARIN INJ 40 MG/0.4 ML SYR SQ SCH (08:51)
[2022-02-23] MEDS: MAGNESIUM OXIDE 400 MG TAB PO SCH (08:51)
[2022-02-23] MEDS: ATORVASTATIN 40 MG TAB PO SCH (08:51)
[2022-02-23] MEDS: guaiFENesin 600 MG TABCR PO SCH ×2 (08:51→20:28)
[2022-02-23] MEDS: UMECLIDINIUM BROMIDE 62.5MCG/BLISTER 7 PUFFS/INHALER INH SCH (08:52)
[2022-02-23] MEDS: PREGABALIN 100 MG CAP PO SCH ×2 (09:03→20:35)
--- NOTE | 2022-02-23 11:42 | Pulmonology Progress Note ---
Date of Service February 23, 2022 Assessment & Plan (1) Respiratory failure with hypoxia and hypercapnia: (2) Acute exacerbation of chronic obstructive pulmonary disease: (3) Acute dyspnea: Plan Impression: 70-year-old male with very severe obstructive lung disease and chronic hypoxemic and hypercarbic respiratory failure admitted with exacerbation. The patient has been on chronic prednisone at home. He is failed a trial of noninvasive positive pressure ventilation at night. He was attempted on a trial of Daliresp however medication was too expensive for the patient to consider. He is responding, albeit slowly. His sputum is growing staph aureus which is sensitive. Unclear if this is a true pathogen. He continues to feel congested in his chest. Recommendations: 1. Hypercarbic respiratory failure: The patient is not tolerated nocturnal AVAPS previously. He appears compensated. No indication for noninvasive positive pressure ventilation currently.. 2. Acute exacerbation of COPD: Continue nebulized Perforomist and budesonide. Continue prednisone 20 mg twice a day. Continue Incruse. Continue DuoNebs as needed. Continue doxycycline 3. May readdress Daliresp in the outpatient setting. Pulmonary rehab may also be a consideration at discharge 4. Continue oxygen to keep saturations at or above 88%. Would not try and target oxygen saturations greater than 90% in this patient given his hypercarbia. 5. The patient has a large inguinal hernia and is contemplating undergo surgical repair. He is felt to be too high of a risk to do here locally and is following with the surgeons at [facility]. 6. Patient was encouraged to remain out of bed up to the chair as much as possible. This will improve his respiratory mechanics. 7. Continue Mucinex for pulmonary clearance and add a trial of hypertonic saline to see if this improves his ability to clear secretions. Will continue to follow with you. Thanks for the opportunity of caring for this patient. Feel free to contact us with questions or concerns. His oxygen requirement is at baseline. Admission and Anticipated Discharge Date Admission Date: February 18, 2022 Subjective Patient seen and examined. EMR reviewed. He feels slightly better today but continues to feel congested in his chest with inability to expectorate phlegm. He is using a flutter valve but its not really being very efficacious. He denies fevers chills or night sweats. He is able to ambulate for short distances. His oxygen is now at his baseline. He continues to express frustration at not being able to get better quickly Review of Systems Review of Systems: All systems reviewed & are unremarkable except as noted in Subjective Physical Exam Constitutional: + frail appearing; + not healthy appearing ENMT: Mouth: + edentulous Neck: trachea midline, no thyromegaly Respiratory: able to speak in complete sentences; no respiratory distress, no labored breathing and not tachypneic Auscultation: + rhonchi and + wheezes Cardiovascular: RRR, no murmur, no edema Musculoskeletal: no cyanosis or clubbing, extremities motor strength 5/5 Skin: no rashes, warm and dry Psychiatric: A+Ox3, euthymic affect Lymphatic: no cervical or axillary lymphadenopathy Results & Data Results & Data ([facility]) Vital Signs (Past 12 Hours) Vital Signs Temp Pulse Pulse Pulse Resp BP Pulse Ox 02/23/22 11:02 88 18 97 02/23/22 09:14 02/23/22 08:17 36.7 C 87 19 139/76 98 02/23/22 07:25 58 L 18 98 02/23/22 00:00 86 02/23/22 03:24 36.5 C 75 18 117/78 100 02/23/22 00:07 91 H 18 97 O2 Del Method O2 Flow Rate 02/23/22 11:02 Nasal Cannula 5 02/23/22 09:14 Nasal Cannula 4 02/23/22 08:17 Nasal Cannula 5 02/23/22 07:25 Nasal Cannula 5 02/23/22 00:00 02/23/22 03:24 Nasal Cannula 3.5 02/23/22 00:07 Nasal Cannula 4 Laboratory Results 02/22/22 06:20 02/22/22 06:20 Diagnostic Findings No new imaging PG Care Time/CCT Total # of Minutes Spent Total Time Spent with Patient: Total time spent is greater than 50% in coordination of care (as documented) at patient's floor/unit and/or counseling patient: Coding Level of Care Code 43006 Subseq Hosp Care Lvl 2 Diagnoses Respiratory failure with hypoxia and hypercapnia J96.91; J96.92 Acute exacerbation of chronic obstructive pulmonary disease J44.1 Acute dyspnea R06.00
--- NOTE | 2022-02-23 13:52 | Hospitalist Progress Note ---
Date of Service February 23, 2022 Assessment & Plan (1) Acute exacerbation of chronic obstructive pulmonary disease (COPD): Plan: -Presents to the hospital with worsening SOB and wheeze. -Found to be in COPD Exacerbation. -Patient still SOB, with wheeze, especially on ambulation, but much improved today -No evidence of PNA on x ray -Sputum cultures growing MSSA -Continue nebulized Perforomist and budesonide. Continue prednisone 20 mg twice a day. Continue Incruse. Continue DuoNebs as needed. Continue doxycycline 100mg BID -Continue supplemental oxygen, 4L nasal canula - Fluticasone salmeterol currently on hold. 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 -Appreciate pulmonolgy (2) Essential hypertension: Plan: Continues on metoprolol succinate and Lasix . Currently stable (3) Anemia: Plan: Mild. Stable . Supplemental iron, B12. Serial labs (4) BPH loc w urin obs/LUTS: Plan: Patient is currently without symptoms. He does have a large nonincarcerated inguinal hernia on the left side scheduled for outpatient repair with [facility] surgery (5) Superior mesenteric artery aneurysm: Plan: Aware. No treatment necessary at this time (6) Respiratory failure with hypoxia and hypercapnia: Plan: This is acute on chronic. Treat underlying COPD exacerbation. Would seek to maintain saturations in the low 90% range to minimize CO2 retention. (7) Inguinal hernia bilateral, non-recurrent: Plan: Plan is outpatient surgery at [facility] Plan Patient is a full code DVT prevention : enoxaparin Disposition: Anticipate eventual discharge to home Admission and Anticipated Discharge Date Admission Date: February 18, 2022 Subjective patient seen and examined, became emotional because he didnt think he was progressing fast enough Review of Systems Review of Systems: All systems reviewed are negative, apart from the ones contained in the history. Physical Exam Physical Exam: The patient is awake, alert and oriented 3, well developed and well nourished, normocephalic and atraumatic, lying in bed and in no acute distress. HEENT--PERRL, EOMI, mucous membranes and oropharynx mildly dry Neck--supple. No JVD. No bruits. Thyroid normal, trachea midline, no adenopathy. Heart--normal S1 and S2. No murmurs, rubs or gallops. Lungs--Reduced air entry on auscultation, bibasilar wheeze. Abdomen--normal bowel sounds and soft. Mild epigastric and left sided abdominal pain Extremities--no cyanosis or clubbing. No edema. Dermatologic--normal skin turgor, normal color, no abnormal lymph nodes, no rash. Neurologic--cranial nerves II through XII grossly intact. Rheumatologic--normal range of motion. Psychiatric--normal affect. Results & Data Results & Data ([facility]) Vital Signs (Past 12 Hours) Vital Signs Temp Pulse Pulse Resp BP Pulse Ox O2 Del Method 02/23/22 12:02 97.3 F L 85 20 128/74 97 Nasal Cannula 02/23/22 11:02 88 18 97 Nasal Cannula 02/23/22 09:14 Nasal Cannula 02/23/22 08:17 98.1 F 87 19 139/76 98 Nasal Cannula 02/23/22 07:25 58 L 18 98 Nasal Cannula 02/23/22 03:24 97.7 F 75 18 117/78 100 Nasal Cannula O2 Flow Rate 02/23/22 12:02 5 02/23/22 11:02 5 02/23/22 09:14 4 02/23/22 08:17 5 02/23/22 07:25 5 02/23/22 03:24 3.5 PG Care Time/CCT Total # of Minutes Spent Total Time Spent with Patient: Total time spent is greater than 50% in coordination of care (as documented) at patient's floor/unit and/or counseling patient: Coding Level of Care Code 82194 Subseq Hosp Care Lvl 2 Diagnoses Acute exacerbation of chronic obstructive pulmonary disease (COPD) J44.1 Essential hypertension I10 Anemia D64.9 Anemia type: unspecified type BPH loc w urin obs/LUTS N40.1 Superior mesenteric artery aneurysm I72.8 Respiratory failure with hypoxia and hypercapnia J96.91; J96.92 Inguinal hernia bilateral, non-recurrent K40.20 Time Spent (min) 35 (1) Anemia Anemia type: unspecified type Qualified Code(s): D64.9 - Anemia, unspecified
[2022-02-23] MEDS: OXYMETAZOLINE 0.05% 30 ML BTL PRN (15:06)
[2022-02-23] MEDS: SODIUM CHLOR 7% 4 ML NEB NEB SCH (19:14)
[2022-02-23] MEDS: CYANOCOBALAMIN (B-12) 500 MCG TABLET PO SCH (20:26)
[2022-02-24] MEDS: ALBUT/IPRATROP 3MG/0.5MG NEB 3 ML VIAL NEB SCH ×4 (02:18→15:06)
[2022-02-24 06:59] LABS: Hematocrit (blood only) 38.9 % (40.1-51.0); Hemoglobin 12.2 g/dl (14.0-18.0); Mean Corpuscular Hemoglobin 27.7 pg (25.0-34.0); Mean Corpuscular Hgb Conc 31.4 g/dL (32.0-36.0); Mean Corpuscular Volume 88.2 fL (80.0-100.0); Mean Platelet Volume 9.3 fL (9.4-12.4); Platelet Count 188 K/uL (130-400); RDW Coefficient of Variation 14.8 % (11.5-14.5); RDW Standard Deviation 47.9 fL (36.4-46.3); Red Blood Count 4.41 M/uL (4.63-6.08); White Blood Count 8.21 K/ul (4.8-10.8)
[2022-02-24] MEDS: SODIUM CHLOR 7% 4 ML NEB NEB SCH (07:10)
[2022-02-24] MEDS: FORMOTEROL 20 MCG/2 ML VIAL NEB SCH (07:10)
[2022-02-24] MEDS: BUDESONIDE 0.5 MG/2 ML VIAL (PULMICORT) NEB SCH (07:11)
[2022-02-24 07:20] LABS: BUN Creatinine Ratio 34.9 (10-20); Calcium 8.5 mg/dl (8.5-10.1); Creatinine Clr Calc Pharmacy 92.8 ml/min; Est GFR (African American) 104.1 ml/min; Est GFR (Non-African American) 89.8 ml/min; Potassium 4.1 mmol/L (3.5-5.1)
[2022-02-24] MEDS: DOXYCYCLINE HYCLATE 100 MG CAP PO SCH ×2 (08:01→16:27)
[2022-02-24] MEDS: MULTIVITAMIN TAB PO SCH (08:02)
[2022-02-24] MEDS: predniSONE 20 MG TAB PO SCH ×2 (08:03→16:28)
[2022-02-24] MEDS: guaiFENesin 600 MG TABCR PO SCH ×2 (08:04→16:28)
[2022-02-24] MEDS: UMECLIDINIUM BROMIDE 62.5MCG/BLISTER 7 PUFFS/INHALER INH SCH (08:04)
[2022-02-24] MEDS: FERROUS SULFATE 325 MG TAB PO SCH (08:05)
[2022-02-24] MEDS: FUROSEMIDE 20 MG TAB PO SCH (08:05)
[2022-02-24] MEDS: MAGNESIUM OXIDE 400 MG TAB PO SCH (08:06)
[2022-02-24] MEDS: ATORVASTATIN 40 MG TAB PO SCH (08:06)
[2022-02-24] MEDS: ENOXAPARIN INJ 40 MG/0.4 ML SYR SQ SCH (08:07)
[2022-02-24] MEDS: ADVANCED PROBIOTIC 1250 MG CAPSULE PO SCH (08:07)
[2022-02-24] MEDS: METOPROLOL SUCC 50MG EXT REL TAB PO SCH (08:07)
[2022-02-24] MEDS: OXYMETAZOLINE 0.05% 30 ML BTL PRN (08:08)
[2022-02-24] MEDS: PREGABALIN 100 MG CAP PO SCH (08:12)
--- NOTE | 2022-02-24 11:10 | Pulmonology Progress Note ---
Date of Service February 24, 2022 Assessment & Plan (1) Respiratory failure with hypoxia and hypercapnia: (2) Acute exacerbation of chronic obstructive pulmonary disease: (3) Acute dyspnea: Plan Impression: 70-year-old male with very severe obstructive lung disease and chronic hypoxemic and hypercarbic respiratory failure admitted with exacerbation. The patient has been on chronic prednisone at home. He is failed a trial of noninvasive positive pressure ventilation at night. He was attempted on a trial of Daliresp however medication was too expensive for the patient to consider. He is responding, albeit slowly. His sputum is growing staph aureus which is sensitive. Unclear if this is a true pathogen. He is improving clinically Recommendations: 1. Hypercarbic respiratory failure: The patient is not tolerated nocturnal AVAPS previously. He appears compensated. No indication for noninvasive positive pressure ventilation currently.. 2. Acute exacerbation of COPD: Continue nebulized Perforomist and budesonide. Continue prednisone 20 mg twice a day for an additional 5 days. Continue Incruse. Continue DuoNebs as needed. Continue doxycycline for an additional 5 days 3. May readdress Daliresp in the outpatient setting. Pulmonary rehab may also be a consideration at discharge 4. Continue oxygen to keep saturations at or above 88%. Would not try and target oxygen saturations greater than 90% in this patient given his hypercarbia. 5. The patient has a large inguinal hernia and is contemplating undergo surgical repair. He is felt to be too high of a risk to do here locally and is following with the surgeons at [facility]. Would recommend that any elective surgery be delayed until the patient's respiratory status is back to his baseline. 6. Patient was encouraged to remain out of bed up to the chair as much as possible. This will improve his respiratory mechanics. 7. Continue Mucinex for pulmonary clearance and nebulized hypertonic saline to see if this improves his ability to clear secretions. This point time the patient appears to be approaching his baseline. Disposition per primary service. He can follow-up with me in the outpatient setting as previously scheduled Admission and Anticipated Discharge Date Admission Date: February 18, 2022 Subjective Patient seen and examined. He feels that he is clinically improving. He continues to use oxygen at his baseline level. He was able to ambulate with PT today and went for about 30 feet before having to turn his oxygen up which is about his baseline. He is coughing and expectorating phlegm. He feels less congested in his chest. He is able to tolerate a diet. He continues to complain about his hernia. Review of Systems Review of Systems: All systems reviewed & are unremarkable except as noted in Subjective Physical Exam Constitutional: + frail appearing; + not healthy appearing ENMT: Mouth: + edentulous Neck: trachea midline, no thyromegaly Respiratory: able to speak in complete sentences; no respiratory distress, no labored breathing and not tachypneic Auscultation: + rhonchi and + wheezes Cardiovascular: RRR, no murmur, no edema Musculoskeletal: no cyanosis or clubbing, extremities motor strength 5/5 Skin: no rashes, warm and dry Psychiatric: A+Ox3, euthymic affect Lymphatic: no cervical or axillary lymphadenopathy Results & Data Results & Data ([facility]) Vital Signs (Past 12 Hours) Vital Signs Temp Pulse Resp BP Pulse Ox O2 Del Method O2 Flow Rate 02/24/22 08:00 Nasal Cannula 3 02/24/22 07:11 74 16 99 Nasal Cannula 3 02/24/22 07:06 36.7 C 74 20 127/78 99 Nasal Cannula 3 02/24/22 02:45 36.8 C 81 20 121/78 98 Nasal Cannula 4 02/24/22 02:18 70 16 99 Nasal Cannula 4 Laboratory Results 02/24/22 06:45 02/24/22 06:45 Diagnostic Findings No new imaging PG Care Time/CCT Total # of Minutes Spent Total Time Spent with Patient: Total time spent is greater than 50% in coordination of care (as documented) at patient's floor/unit and/or counseling patient: Coding Level of Care Code 12457 Subseq Hosp Care Lvl 2 Diagnoses Respiratory failure with hypoxia and hypercapnia J96.91; J96.92 Acute exacerbation of chronic obstructive pulmonary disease J44.1 Acute dyspnea R06.00
--- NOTE | 2022-02-24 13:00 | Discharge Summary ---
Date of Service February 24, 2022 Admission HPI Per Admitting Provider Pt presents with increased shortness of breath which is been ongoing for approximate 3 to 4 days. The patient is also had cough with occasional sputum. No exertional chest pain symptoms and no change with position or activity. Patient has not take anything for it at home. The patient has noticed some slight swelling his legs as well. Patient denies any current smoking last smoked 2 to 3 years ago. The patient does have a known history of COPD and does wear 4 L at all times. Most recently the patient had increase his oxygen to 6 L to walk across his room and upstairs. Patient did not fill his Daliresp prescription as given by Dr. Dominguez due to cost. EMS did give the patient Solu-Medrol 125 mg and a DuoNeb treatment. Pt is Covid negative and has had little improvement in symptoms during treatment in the ER Principal Diagnosis acute COPD exaerbation Discharge Exam The patient is awake, alert and oriented 3, well developed and well nourished, normocephalic and atraumatic, lying in bed and in no acute distress. HEENT--PERRL, EOMI, mucous membranes and oropharynx mildly dry Neck--supple. No JVD. No bruits. Thyroid normal, trachea midline, no adenopathy. Heart--normal S1 and S2. No murmurs, rubs or gallops. Lungs--Reduced air entry on auscultation, bibasilar wheeze. Abdomen--normal bowel sounds and soft. Mild epigastric and left sided abdominal pain Extremities--no cyanosis or clubbing. No edema. Dermatologic--normal skin turgor, normal color, no abnormal lymph nodes, no rash. Neurologic--cranial nerves II through XII grossly intact. Rheumatologic--normal range of motion. Psychiatric--normal affect. Discharge Data Allergies Allergy/AdvReac Type Severity Reaction Status Date / Time No Known Allergies Allergy Verified 02/18/22 15:43 Consultations 02/18/22 18:07 ED Decision to Admit Stat 02/22/22 10:55 Consult Pulmonology Routine Hospital Course (1) Acute exacerbation of chronic obstructive pulmonary disease (COPD): -Presents to the hospital with worsening SOB and wheeze. -Found to be in COPD Exacerbation. -Patient still SOB, with wheeze, especially on ambulation, but much improved today -No evidence of PNA on x ray -Sputum cultures growing MSSA -Continue nebulized Perforomist and budesonide. Continue prednisone 20 mg twice a day. Continue Incruse. Continue DuoNebs as needed. Continue doxycycline 100mg BID -Continue supplemental oxygen, 3L nasal canula - Fluticasone salmeterol currently on hold. - Patient did not get his Daliresp filled as recommended by his licensed and certified midwife due to cost. -Appreciate pulmonolgy -Discharge him on PO Prednisone 20mg BID for 5 more days, PO Doxy 100mg BID for 5 more days -Follow up pulm outpatient (2) Essential hypertension: Continues on metoprolol succinate and Lasix . Currently stable (3) Anemia: Mild. Stable . Supplemental iron, B12. Serial labs (4) BPH loc w urin obs/LUTS: Patient is currently without symptoms. He does have a large nonincarcerated inguinal hernia on the left side scheduled for outpatient repair with [facility] surgery (5) Superior mesenteric artery aneurysm: Aware. No treatment necessary at this time (6) Respiratory failure with hypoxia and hypercapnia: This is acute on chronic. Treat underlying COPD exacerbation. Would seek to maintain saturations in the low 90% range to minimize CO2 retention. (7) Inguinal hernia bilateral, non-recurrent: Plan is outpatient surgery at [facility] Plan Patient is a full code DVT prevention : enoxaparin Disposition: Anticipate eventual discharge to home Total Time Total Time Spent Total Time Spent (In Minutes): 35 Discharge Plan Discharge Items Patient Disposition: Home - Self-Care Reason For Visit: SOB Discharge Diagnosis: Acute COPD exacerbation Activity: Resume your previous activity Non-emergency contact: Primary Care Provider and Crate Maker Call non-emergency contact if: you have any medication questions Follow-up/Referrals: Russell Dang DO [Primary Care Provider] - Diet: Regular Addtl Attending Provider Instructions: please follow up with your Crate Maker as earlier scheduled Pending Studies at Discharge: No Stand-Alone Forms: My [employer], Smoking Cessation Medications and DC Order Prescriptions: New doxycycline hyclate 100 mg Capsule 100 mg PO BID 5 Days Qty: 10 0RF prednisone 20 mg Tablet 20 mg PO BID 5 Days Qty: 10 0RF guaifenesin [Mucinex] 600 mg Tablet Extended Release 12hr 1,200 mg PO Q12 5 Days Qty: 20 0RF Continued furosemide [Lasix] 20 mg tablet 20 mg PO Q OTHER DAY Qty: 15 5RF Incruse Ellipta 62.5 mcg/actuation blister with device 1 inh inhalation QAM Qty: 30 5RF sumatriptan succinate 50 mg tablet 50 mg PO Q2H MDD 4 tablets/24hrs PRN (Reason: migraine headache) Qty: 9 5RF pregabalin 100 mg capsule 100 mg PO BID Qty: 60 2RF (DME) nebulizer accessories Kit See Rx Instructions .ROUTE .MEDSUPPLY Qty: 1 0RF Rx Instructions: As directed (DME) Compact Compressor Nebulizer Misc See Rx Instructions .Route Qty: 1 0RF Rx Instructions: As directed fluticasone propion-salmeterol [Advair Diskus] 500-50 mcg/dose blister with de vice 1 inh inhalation BID Qty: 90 3RF Probiotic Colon Support 1.5 billion cell Capsule 1 cap PO QAM ferrous sulfate 325 mg (65 mg iron) tablet,delayed release (DR/EC) 325 mg PO BID Qty: 60 0RF polyethylene glycol 3350 [Miralax] 17 gram powder in packet 17 g PO DAILY PRN (Reason: constipation) Qty: 30 0RF multivitamin with folic acid [Daily-[place] (with folic acid)] 400 mcg Tablet 1 tab PO QAM Qty: 30 0RF magnesium oxide 400 mg (241.3 mg magnesium) tablet 400 mg PO QAM metoprolol succinate 50 mg tablet extended release 24 hr 50 mg PO DAILY Rx Instructions: TAKE 1 TABLET BY MOUTH ONCE DAILY albuterol sulfate 90 mcg/actuation HFA aerosol inhaler 1 - 2 puff INHALATION Q4H PRN (Reason: Shortness Of Breath) Qty: 54 1RF cyanocobalamin (vitamin B-12) [Vitamin B-12] 1,000 mcg Tablet 1,000 mcg PO HS docusate sodium 100 mg capsule 100 mg PO BID PRN (Reason: Constipation) atorvastatin 40 mg tablet 40 mg PO QAM Rx Instructions: TAKE 1 TABLET BY MOUTH ONCE qam Discontinued azithromycin 250 mg tablet 250 mg PO MOWEFR Rx Instructions: 250 mg orally Every Sunday and Sunday; Discharge Orders: Discharge Order (Routine); Ordered 02/24/22 Ordered By: Nona Kitchen Admission Data Admit Date/Time: 02/18/22 18:13 Attending Provider: Nona Kitchen Admit Provider: Kyaw Godoy Primary Care Provider: Russell Dang Other Providers: Kyaw Godoy ; Rich Dominguez Coding Level of Care Code D/C DAY MANAGEMENT >30 MINS Diagnoses Acute exacerbation of chronic obstructive pulmonary disease (COPD) J44.1 Essential hypertension I10 Anemia D64.9 Anemia type: unspecified type BPH loc w urin obs/LUTS N40.1 Superior mesenteric artery aneurysm I72.8 Respiratory failure with hypoxia and hypercapnia J96.91; J96.92 Inguinal hernia bilateral, non-recurrent K40.20 Time Spent (min) 35
== END 2022-02-24 16:42 | disposition home or self-care (01) | DRG 190 ==
LOC: ED 15:30 → 2S 18:13 → SUATTDRO 18:13 → 2S 20:03

== ENCOUNTER 2022-06-20 09:34 | Inpatient (IN) ==
[2022-06-20] MEDS ORDERED: ALBUT/IPRATROP 3MG/0.5MG NEB 3 ML VIAL INH STA (09:40)
--- NOTE | 2022-06-20 09:42 | Emergency Department Note ---
Impression & Plan Acute exacerbation of chronic obstructive pulmonary disease, KELLEY (dyspnea on exertion), Anemia ED Provider Note NAME: DENAE LAL AGE: 71 SEX: M : 1950 ARRIVES VIA: Ambulance INFORMANT: Patient, ED PROVIDER(S): David Santoro MD CHIEF COMPLAINT: Shortness of breath MEDICAL DECISION MAKING: Patient presents due to concern for shortness of breath worsening over the last several days with associated KELLEY. Patient had already received DuoNebs as well as IV methylprednisolone in route. IV was established blood work was obtained. The patient did have a chest x-ray completed COVID flu and RSV swab. 2 g of magnesium ordered over 1 hour addition to 30-minute DuoNeb treatment. Patient still does have end expiratory wheezes. Patient did have improvement in symptoms. The patient has a normal white count mild anemia hemoglobin 12.4 which is chronic and stable. The patient's platelet count is unremarkable. Kidney function unremarkable. Troponin is not elevated. Pro-Levy is not elevated. COVID-negative. The patient's chest x-ray does not show any acute process. I did speak the on-call hospitalist service Dr. Taveras and the patient was admitted to the medicine service Document consults/transfers/case management discussions-also decisions not to test/admit/transfer Prior /Outside records reviewed: None Differential diagnosis: Reactive airway disease, pneumonia, pneumothorax, COPD, CHF, infections, cardiac ischemia, pulmonary embolism, musculoskeletal, gastrointestinal, as well as other pathologies. Diagnostics, as interpreted by me: ECG: Sinus, rate of 93, prolonged ME, normal QRS normal axis no ST elevations. PVCs noted Cardiac monitoring: An order was placed for continuous cardiac monitoring. The monitor shows a rate of 95 with sinus rhythm. Patient was placed on pulse oximetry Medical decision rules: none Imaging studies: See below HPI: Patient presents due to concern for shortness of breath and KELLEY which been ongoing for 3 to 4 days. Progressively worse. The patient states that he feels exceptionally worse when he does any sort of physical activity. The patient denies any orthopnea. The patient does have chronic lower extremity edema but states this is fairly unchanged. The patient has been tobacco and alcohol free for 4 years. Patient states he is compliant with his medications. The patient does complain of a creamy frothy sputum. Patient does wear oxygen at all times. Patient's oxygen and saturation on his baseline upon arrival by EMS was 93%. Patient did receive IV methylprednisolone as well as DuoNeb treatment in route. Medic which transported the patient states that this is the best the patient has looked typically has significant conversational dyspnea and tachypnea. The patient does not wear CPAP. Patient denies any chest pains abdominal pain nausea vomiting. Patient did try to neb treatments this morning but did not have improvement in symptoms PAST MEDICAL HISTORY: See Below PAST SURGICAL HISTORY: See Below SOCIAL HISTORY: See Below HOME MEDICATIONS: See Below ALLERGIES: See Below VITALS: See Below PHYSICAL EXAMINATION: GENERAL: Nasal cannula in place. EYE EXAM: Normal conjunctiva. PERRL, no anisocoria and EOM's grossly intact w/o pain. Oropharynx: Edentulous NECK: Supple, no nuchal rigidity, no adenopathy, non-tender. No signs of meningismus. FROM of the neck with good chin to chest and neck extension. No stridor. LUNGS: Expiratory wheezes throughout noted. No obvious rhonchi HEART: NSR, no MRG. ABDOMEN: Abdomen soft, non-tender, normo-active bowel sounds, no masses, no rebound or guarding. BACK: No CVA TTP. SKIN: No rashes and no bruising. UPPER EXTREMITIES: Upper extremities are grossly normal. LOWER EXTREMITIES: Grossly normal, bilateral symmetric lower extremity edema, nonpitting, chronic venous stasis changes. No crepitus. NEURO EXAM: A&O x3, cranial nerves II-XII grossly intact, normal speech, moves all 4 extremities. Past Med/Surg History Medical History Chronic anemia Colitis COPD (chronic obstructive pulmonary disease) Gout Hyperlipidemia Hypertension Incarcerated left inguinal hernia Low back pain Migraine On home oxygen therapy 2-4L continuous Orthostatic hypotension Per records Osteoarthritis Right inguinal hernia Seizure 2018 (no known etiology) 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) Per records Tremor R/L hands/feet Surgical History H/O tooth extraction Lower teeth on 04/23/2018 History of colonoscopy History of open reduction and internal fixation (ORIF) procedure FEMUR L Trimalleolar fracture ORIF (04/30/21): LMA#4 + PNB at [facility] (multiple attempts at SAB unsuccessful 2/2 to bone per anesthesia record) S/P foot surgery RT/LEFT (HARDWARE INTACT) Family History Father Hypertension Aneurysm Mother Swelling Uncle Myocardial infarction Other No significant family history Denies family history of Ovarian cancer Prostate cancer Breast cancer Colorectal cancer Social History Smoking Status: Former smoker Tobacco Type: Cigarettes Age Started Using Tobacco: 14; Age Quit Using Tobacco: 69; packs per day: 1; Cigarettes Per Day: quit 2-4 years ago; Second Hand Exposure: No; Hx Alcohol Use: No Hx Substance Use: No Preferred Language: Greek Communication Ability: Effective Communication Ability Comment: pt intubated and sedated Visual Impairment: Limited Hearing Ability: Normal Gate Mortiser Operator Required: No Beliefs That Will Affect Care: None marital status: Current Living Situation: Spouse and Family Current Living Situation Comment: , granddaughter and her , 12 year old boy current occupational status: retired How many Children do You have: 2 Other Information That Helps Us Care for You: No Feels Safe at Home: Yes Childhood Exposure to Second-Hand Smoke: Yes Diet Comment: regular caffeine: No during the past year weight has: remained stable Dental Care, Regularly: No Physical Activity Frequency: Does not Exercise Seatbelt Use: always Sunscreen Use: No Assistive Devices: Cane, Glasses, Nebulizer, Oxygen - Continuous, Scooter/Electric Scooter and Walker Allergies Allergies Allergy/AdvReac Type Severity Reaction Status Date / Time No Known Allergies Allergy Verified 05/22/22 11:50 Home Meds Home Medications Medication Instructions Recorded Confirmed Lactobacills gasseri-Bifidobac 1 cap PO QAM 02/25/19 06/20/22 bifidum,longum 1.5 billion cell capsule (Probiotic Colon Support) cyanocobalamin (vitamin B-12) 1,000 mcg PO HS 03/08/21 06/20/22 1,000 mcg tablet (Vitamin B-12) magnesium oxide 400 mg (241.3 mg 400 mg PO QAM 06/17/21 06/20/22 magnesium) tablet docusate sodium 100 mg capsule 100 mg PO BID PRN Constipation 10/14/22 03/21/23 Portable Oxygen 03/08/22 05/22/22 atorvastatin 40 mg tablet 40 mg PO DAILY 06/20/22 06/20/22 umeclidinium 62.5 mcg/actuation 1 inh inhalation HS 06/20/22 06/20/22 blister powder for inhalation (Incruse Ellipta) Previous Rx's Medication Instructions Recorded nebulizer accessories #1 ea 12/22/20 ferrous sulfate 325 mg (65 mg 325 mg PO BID #60 tabs 05/03/21 iron) tablet,delayed release multivitamin with folic acid 400 1 tab PO QAM #30 tabs 05/03/21 mcg tablet (Daily-[place] (with folic acid)) polyethylene glycol 3350 17 gram 17 g PO DAILY PRN constipation #30 05/03/21 oral powder packet (Miralax) ea nebulizers (Compact Compressor #1 ea 09/29/21 Nebulizer) sumatriptan succinate 50 mg tablet 50 mg PO Q2H PRN migraine headache 12/08/21 #9 tabs fluticasone 500 mcg-salmeterol 50 1 inh inhalation BID #90 puffs 03/08/22 mcg/dose blistr powdr for inhalation (Advair Diskus) albuterol sulfate 90 mcg/actuation 1 - 2 puff inhalation Q4H PRN 04/19/22 aerosol inhaler Shortness Of Breath #54 grams metoprolol succinate 50 mg 50 mg PO DAILY #90 tabs 04/26/22 tablet,extended release 24 hr pregabalin 100 mg capsule 100 mg PO BID #60 caps 05/16/22 furosemide 20 mg tablet (Lasix) 20 mg PO Q OTHER DAY #15 tabs 05/30/22 Results & Data (ED) Vital Signs Vital Signs - 24 hr 06/20/22 09:40 06/20/22 09:40 06/20/22 10:03 Temperature 36.9 C Temperature Source Oral Pulse Rate 92 H 91 H Respiratory Rate 22 22 Respiratory Effort / Characteristics Non-Labored Spontaneous Non-Labored Spontaneous Respiratory Depth Normal Normal Respiratory Pattern Regular Regular Blood Pressure 123/97 Blood Pressure Mean 105 Blood Pressure Position Sitting Pulse Oximetry 98 96 Oxygen Delivery Method Nasal Cannula Nasal Cannula Oxygen Flow Rate 3 Sepsis Recent Fever Within 48 Hours No Sepsis New/Unexplained Change in Mental Status N/A Sepsis Action Taken by Nursing No Action Required 06/20/22 10:30 06/20/22 10:30 06/20/22 11:00 Temperature Temperature Source Pulse Rate 93 H Respiratory Rate 24 Respiratory Effort / Characteristics Respiratory Depth Respiratory Pattern Blood Pressure 117/78 136/83 Blood Pressure Mean 91 100 Blood Pressure Position Pulse Oximetry 95 Oxygen Delivery Method Nasal Cannula Oxygen Flow Rate 3 Sepsis Recent Fever Within 48 Hours Sepsis New/Unexplained Change in Mental Status Sepsis Action Taken by Nursing 06/20/22 11:00 06/20/22 11:30 06/20/22 11:30 Temperature Temperature Source Pulse Rate 88 86 Respiratory Rate 12 16 Respiratory Effort / Characteristics Respiratory Depth Respiratory Pattern Blood Pressure 120/81 Blood Pressure Mean 94 Blood Pressure Position Pulse Oximetry Oxygen Delivery Method Oxygen Flow Rate Sepsis Recent Fever Within 48 Hours Sepsis New/Unexplained Change in Mental Status Sepsis Action Taken by Nursing 06/20/22 12:00 06/20/22 12:00 Temperature Temperature Source Pulse Rate 95 H Respiratory Rate 29 H Respiratory Effort / Characteristics Respiratory Depth Respiratory Pattern Blood Pressure 134/83 Blood Pressure Mean 100 Blood Pressure Position Pulse Oximetry 95 Oxygen Delivery Method Nasal Cannula Oxygen Flow Rate 3 Sepsis Recent Fever Within 48 Hours Sepsis New/Unexplained Change in Mental Status Sepsis Action Taken by Long Term Medications Current Medication List: was personally reviewed by me Laboratory Data Attestation: I reviewed the patient's lab results. 06/20/22 10:00 06/20/22 10:00 Lab Results 06/20/22 06/20/22 06/20/22 Range/Units 10:00 10:00 10:00 WBC 9.03 (4.8-10.8) K/ul RBC 4.47 L (4.70-6.10) M/uL Hgb 12.4 L (14.0-18.0) g/dl Hct 39.6 L (42.0-52.0) % MCV 88.6 (80.0-100.0) fL MCH 27.7 (25.0-34.0) pg MCHC 31.3 L (32.0-36.0) g/dL RDW Std Deviation 48.4 H (36.4-46.3) fL RDW Coeff of Jem 14.9 H (11.5-14.5) % Plt Count 243 (130-400) K/uL MPV 9.8 (9.4-12.4) fL Immature Gran % (Auto) 0.3 % Neut % (Auto) 71.0 % Lymph % (Auto) 13.7 % [place] % (Auto) 7.8 % Eos % (Auto) 6.6 % Baso % (Auto) 0.6 % Neut # (Auto) 6.41 (1.40-6.50) K/uL Lymph # (Auto) 1.24 (1.2-3.4) K/uL [place] # (Auto) 0.70 H (0.11-0.59) K/uL Eos # (Auto) 0.60 H (0-0.50) K/uL Baso # (Auto) 0.05 (0-0.2) K/uL Immature Gran # (Auto) 0.03 (0.01-0.20) K/uL PT 10.8 (9.0-12.0) Seconds INR 1.0 (0.9-1.1) APTT 26.5 (21.0-31.0) Seconds PTT Ratio 1.0 Sodium 140 (136-145) mmol/L Potassium 4.0 (3.5-5.1) mmol/L Chloride 103 (98-107) mmol/L Carbon Dioxide 32 (21-32) mmol/L Anion Gap 5 (3-11) BUN 21 (6-23) mg/dl Creatinine 0.86 (0.6-1.4) mg/dl Est Cr Clr Drug Dosing 92.4 ml/min Est GFR ( Amer) 102.5 ml/min Est GFR (Non-Af Amer) 88.5 ml/min BUN/Creatinine Ratio 24.4 H (10-20) Glucose 97 (70-99(Fasting)) mg/dl Calcium 9.6 (8.5-10.1) mg/dl Magnesium 2.1 (1.7-2.4) mg/dl Total Bilirubin 0.7 (0.2-1.0) mg/dl AST 18 (13-39) U/L ALT 12 (7-52) U/L Alkaline Phosphatase 86 (34-104) U/L Troponin I High Sens 3.4 (0-20) pg/ml B-Natriuretic Peptide (0-100) pg/ml Total Protein 7.2 (6.0-8.3) gm/dl Albumin 4.1 (3.4-5.0) gm/dl Globulin 3.1 (2.5-4.0) gm/dl Albumin/Globulin Ratio 1.3 (0.9-2) Procalcitonin (0-0.5) ng/ml 06/20/22 06/20/22 Range/Units 10:00 10:00 WBC (4.8-10.8) K/ul RBC (4.70-6.10) M/uL Hgb (14.0-18.0) g/dl Hct (42.0-52.0) % MCV (80.0-100.0) fL MCH (25.0-34.0) pg MCHC (32.0-36.0) g/dL RDW Std Deviation (36.4-46.3) fL RDW Coeff of Jem (11.5-14.5) % Plt Count (130-400) K/uL MPV (9.4-12.4) fL Immature Gran % (Auto) % Neut % (Auto) % Lymph % (Auto) % [place] % (Auto) % Eos % (Auto) % Baso % (Auto) % Neut # (Auto) (1.40-6.50) K/uL Lymph # (Auto) (1.2-3.4) K/uL [place] # (Auto) (0.11-0.59) K/uL Eos # (Auto) (0-0.50) K/uL Baso # (Auto) (0-0.2) K/uL Immature Gran # (Auto) (0.01-0.20) K/uL PT (9.0-12.0) Seconds INR (0.9-1.1) APTT (21.0-31.0) Seconds PTT Ratio Sodium (136-145) mmol/L Potassium (3.5-5.1) mmol/L Chloride (98-107) mmol/L Carbon Dioxide (21-32) mmol/L Anion Gap (3-11) BUN (6-23) mg/dl Creatinine (0.6-1.4) mg/dl Est Cr Clr Drug Dosing ml/min Est GFR ( Amer) ml/min Est GFR (Non-Af Amer) ml/min BUN/Creatinine Ratio (10-20) Glucose (70-99(Fasting)) mg/dl Calcium (8.5-10.1) mg/dl Magnesium (1.7-2.4) mg/dl Total Bilirubin (0.2-1.0) mg/dl AST (13-39) U/L ALT (7-52) U/L Alkaline Phosphatase (34-104) U/L Troponin I High Sens (0-20) pg/ml B-Natriuretic Peptide 23 (0-100) pg/ml Total Protein (6.0-8.3) gm/dl Albumin (3.4-5.0) gm/dl Globulin (2.5-4.0) gm/dl Albumin/Globulin Ratio (0.9-2) Procalcitonin < 0.05 (0-0.5) ng/ml Administered Medications Albuterol (Albut/Ipratrop 3mg/0.5mg Neb 3 Ml Vial) 3 ml NEB Q4R DEBBY; Protocol Stop: 07/20/22 15:59 Last Admin: 06/20/22 15:52 Dose: 3 ml Documented By: NEAL Prednisone (Prednisone 20 Mg Tab) 40 mg PO QAM DEBBY Stop: 06/25/22 15:35 Last Admin: 06/20/22 16:27 Dose: 40 mg Documented By: GABRIEL Discontinued Medications Albuterol (Albut/Ipratrop 3mg/0.5mg Neb 3 Ml Vial) 6 ml INH NOW STA Stop: 06/20/22 09:41 Last Admin: 06/20/22 10:30 Dose: 6 ml Documented By: SRINIVAS Azithromycin (Azithromycin 250 Mg Tab) 500 mg PO NOW ONE Stop: 06/20/22 15:37 Last Admin: 06/20/22 16:27 Dose: 500 mg Documented By: GABRIEL Magnesium Sulfate/Dextrose (Magnesium Sulfate / D5w) 1 gm in 100 mls @ 200 mls/hr IV Q30M DEBBY Stop: 06/20/22 10:44 Last Infusion: 06/20/22 13:36 Dose: 0 mls/hr Documented By: Admin: 06/20/22 12:21 Dose: 200 mls/hr Documented By: Infusion: 06/20/22 12:16 Dose: 0 mls/hr Documented By: Admin: 06/20/22 10:32 Dose: 200 mls/hr Documented By: SRINIVAS Imaging Data Radiologist's Impression: Chest X-Ray 06/20/22 09:40 XR chest 1V portable HISTORY: 71 years-old Male Dyspnea acute shortness of breath COMPARISON: 02/18/2022 TECHNIQUE: AP view of the chest FINDINGS: Cardiac mediastinal and hilar silhouettes are within normal limits. No pneumothorax, large pleural effusion or overt pulmonary edema. Mild subsegmental left basilar atelectasis versus scarring. Degenerative changes of the shoulders and spine. IMPRESSION: No acute process. ACT 112: Negative or not required by law. The above report was generated using voice recognition software. It may contain grammatical, syntax or spelling errors. Electronically signed by: Jayme Portillo M.D. 06/20/2022 10:01 AM Discharge Plan Visit Data Chief Complaint: Respiratory Distress ED Provider: David Santoro Discharge Problem: Acute exacerbation of chronic obstructive pulmonary disease, KELLEY (dyspnea on exertion), Anemia Patient Disposition: Admitted As Inpatient Discharge Instructions Interventions: ED Discharge Assessment Last Done: 06/20/22 14:55
--- NOTE | 2022-06-20 10:03 | XRay Report ---
XR chest 1V portable HISTORY: 71 years-old Male Dyspnea acute shortness of breath COMPARISON: 02/18/2022 TECHNIQUE: AP view of the chest FINDINGS: Cardiac mediastinal and hilar silhouettes are within normal limits. No pneumothorax, large pleural ef fusion or overt pulmonary edema. Mild subsegmental left basilar atelectasis versus scarring. Degenera tive changes of the shoulders and spine. IMPRESSION: No acute process. ACT 112: Negative or not required by law. The above report was generated using voice recognition software. It may contain grammatical, syntax o r spelling errors. Electronically signed by: Jayme Portillo M.D. 06/20/2022 10:01 AM
[2022-06-20 10:30] LABS: Basophils # (auto) 0.05 K/uL (0-0.2); Basophils % (auto) 0.6 %; Eosinophils % (auto) 6.6 %; Hematocrit (blood only) 39.6 % (42.0-52.0); Hemoglobin 12.4 g/dl (14.0-18.0); Immature Granulocytes # (auto) 0.03 K/uL (0.01-0.20); Immature Granulocytes % (auto) 0.3 %; Lymphocytes # (auto) 1.24 K/uL (1.2-3.4); Lymphocytes % (auto) 13.7 %; Mean Corpuscular Hemoglobin 27.7 pg (25.0-34.0); Mean Corpuscular Hgb Conc 31.3 g/dL (32.0-36.0); Mean Corpuscular Volume 88.6 fL (80.0-100.0); Mean Platelet Volume 9.8 fL (9.4-12.4); Monocytes % (auto) 7.8 %; Neutrophils # (auto) 6.41 K/uL (1.40-6.50); Platelet Count 243 K/uL (130-400); RDW Coefficient of Variation 14.9 % (11.5-14.5); RDW Standard Deviation 48.4 fL (36.4-46.3); Red Blood Count 4.47 M/uL (4.70-6.10); White Blood Count 9.03 K/ul (4.8-10.8)
[2022-06-20] MEDS: MAGNESIUM SULFATE / D5W 1 GM/100 ML BAG IV SCH ×2 (10:32→12:21)
[2022-06-20 10:39] LABS: Albumin Globulin Ratio 1.3 (0.9-2); Albumin Level 4.1 gm/dl (3.4-5.0); BUN Creatinine Ratio 24.4 (10-20); Bilirubin,Total 0.7 mg/dl (0.2-1.0); Calcium 9.6 mg/dl (8.5-10.1); Creatinine Clr Calc Pharmacy 92.4 ml/min; Est GFR (African American) 102.5 ml/min; Est GFR (Non-African American) 88.5 ml/min; Globulin 3.1 gm/dl (2.5-4.0); Magnesium 2.1 mg/dl (1.7-2.4); Total Protein 7.2 gm/dl (6.0-8.3)
[2022-06-20 10:43] LABS: Troponin I High Sensitivity 3.4 pg/ml (0-20)
[2022-06-20 10:48] LABS: Partial Thromboplastin Time 26.5 Seconds (21.0-31.0); Prothrombin Time 10.8 Seconds (9.0-12.0)
--- NOTE | 2022-06-20 11:22 | History & Physical Report ---
Date of Service June 20, 2022 Assessment & Plan (1) Acute exacerbation of chronic obstructive pulmonary disease: Plan: Acute on chronic COPD, on 4 L home oxygen Increased wheezing, shortness of breath, oxygen requirement up to 5 L, increased production of some creamy white sputum for 2 days. No fever/chills/sweats No leukocytosis, procalcitonin is negative, BMP is normal, high-sensitivity troponin 3.4 without chest pain - Patient confirms he has not been on prednisone for several months. He did not have a significant change while on low-dose prednisone in the past. Deviously failed nighttime AVAPS, Darilesp, azithromycin Continue Advair and Incruse/formulary equivalent. Magnesium 2.1 on admission, received 2 bags VBG pending on admission CXR no acute process Does not wear CPAP at home Continue DuoNebs, incentive spirometry, flutter valve, 5-day Z-Miguel. Methylpred x1 given in route to ER. Continue Pred 40 mg burst for 5 days; patient has had minimal improvement with this in the past Viral Quad screen pending Echo 09/21/2021: EF 65-70%, no regional wall motion abnormalities, no significant change from 2020. Grade 1 diastolic dysfunction - Prior tobacco/alcohol use; No recent use in prior 4 years Titrate SPO2 89-94%, do not hyperoxygenate (2) Essential hypertriglyceridemia: Plan: Continue statin (3) Essential hypertension: Plan: Continue metoprolol, Lasix every other day. No history of heart failure; last echo 08/2021 with normal EF, no wall motion abnormalities, grade 1 diastolic dysfunction (4) Tremor: Plan: Mild resting tremor in hands, no change. No evidence of strokelike deficits (5) Urinary retention: Plan: No symptoms per patient, does not take medication at this time. Bladder scan as needed, if retaining start Flomax and cath as needed for PVR greater than 350 (6) Anemia: Plan: Hemoglobin 12.4 on admission, no signs of bleeding. Stools can be dark with iron Continue iron repletion, B12. Iron changed from twice daily to daily due to absorption limitation and contribution to constipation. MCV 88. (7) Superior mesenteric artery aneurysm: Plan: Patient aware, following as outpatient. No acute management at this time (8) Inguinal hernia bilateral, non-recurrent: Plan: Patient with known r bilateral inguinal hernia containing portions of urinary bladder, multiple bowel loops without obstruction/inflammation. At bedside has not changed, no acute tenderness/warmth/swelling. Additional scrotal swelling is noted Patient is following with [facility] [place] and is pending operative repair 07/18. Patient is aware that he is increased risk due to his severe COPD with chronic respiratory failure. No acute management indicated at time of assessment Patient is not having any lower urinary tract symptoms, can bladder scan if concern for postvoid residual/obstructive uropathy due to pressure effect Plan DVT prophylaxis: Lovenox Diet: Heart healthy Disposition: Medical/surgical CODE STATUS: Full code History of Present Illness Primary Care Provider: Russell Dang DO Lauro Barnes is a 71-year-old male with a past medical history of tobacco abuse, COPD, BPH with LUTS, SMA aneurysm, lymphedema, chronic respiratory failure with hypoxia and hypercapnia, Does with several days of dyspnea on exertion and shortness of breath. Received DuoNebs and methylprednisolone by EMS in route due to wheezing. Reports he does not take prednisone at home. Has been several months since he last took this and did not think it really helped Oxygen 93-95% at home on 1-3 L, recently put up to 4L Shortness of breath and wheezing x2 days Slightly more cough productive for creamy kovacs sputum He uses his Advair every day. No chest pain or chest pressure. No syncope or presyncope Has been using albuterol twice at home before coming in, not sure if it helped or not. Not a good historian of meds. Reports gives them to him. No nausea/vomiting/diarrhea. Intermittent constipation. Stools are dark with iron. No abdominal pain. Does have hernias which she is getting repaired at [facility] Confirmed with . Has not been on any prednisone for several months. Advair daily. Just got a refill of the incruse, uses sporadically in the evening. Albuterol --> Took meidcations this morning, but continued to be short of breath because he couldn't breath. Leg edema with no recent change Patient is a poor historian have medications. Reconciled at bedside, and with by phone. Patient reports med list as reported as recent pulmonology follow-up is still accurate with no changes other than that he did not switch to trelegy, thinks it was very expensive. Is taking Advair and also incruse when he remembers, incruse takes later in the day/evening. Medical History: Reviewed Medications: Reviewed Surgical History: Reviewed Family history: Reviewed Allergies: Reviewed Social History: Reviewed Code Status: Full Code Allergies Allergy/AdvReac Type Severity Reaction Status Date / Time No Known Allergies Allergy Verified 05/22/22 11:50 Home Medications Medication Instructions Recorded Confirmed Type Lactobacills gasseri-Bifidobac 1 cap PO QAM 02/25/19 06/20/22 History bifidum,longum 1.5 billion cell capsule (Probiotic Colon Support) nebulizer accessories #1 ea 12/22/20 05/22/22 Rx cyanocobalamin (vitamin B-12) 1,000 mcg PO HS 03/08/21 06/20/22 History 1,000 mcg tablet (Vitamin B-12) ferrous sulfate 325 mg (65 mg 325 mg PO BID #60 tabs 05/03/21 06/20/22 Rx iron) tablet,delayed release multivitamin with folic acid 400 1 tab PO QAM #30 tabs 05/03/21 06/20/22 Rx mcg tablet (Daily-[place] (with folic acid)) polyethylene glycol 3350 17 gram 17 g PO DAILY PRN constipation #30 05/03/21 06/20/22 Rx oral powder packet (Miralax) ea magnesium oxide 400 mg (241.3 mg 400 mg PO QAM 06/17/21 06/20/22 History magnesium) tablet nebulizers (Compact Compressor #1 ea 09/29/21 05/22/22 Rx Nebulizer) sumatriptan succinate 50 mg tablet 50 mg PO Q2H PRN migraine headache 12/08/21 06/20/22 Rx #9 tabs docusate sodium 100 mg capsule 100 mg PO BID PRN Constipation 01/13/22 06/20/22 History Portable Oxygen 03/08/22 05/22/22 History fluticasone 500 mcg-salmeterol 50 1 inh inhalation BID #90 puffs 03/08/22 06/20/22 Rx mcg/dose blistr powdr for inhalation (Advair Diskus) albuterol sulfate 90 mcg/actuation 1 - 2 puff inhalation Q4H PRN 04/19/22 06/20/22 Rx aerosol inhaler Shortness Of Breath #54 grams metoprolol succinate 50 mg 50 mg PO DAILY #90 tabs 04/26/22 06/20/22 Rx tablet,extended release 24 hr pregabalin 100 mg capsule 100 mg PO BID #60 caps 05/16/22 05/22/22 Rx furosemide 20 mg tablet (Lasix) 20 mg PO Q OTHER DAY #15 tabs 05/30/22 06/20/22 Rx atorvastatin 40 mg tablet 40 mg PO DAILY 06/20/22 06/20/22 History umeclidinium 62.5 mcg/actuation 1 inh inhalation HS 06/20/22 06/20/22 History blister powder for inhalation (Incruse Ellipta) Past Med/Surg History Medical History (Updated 06/20/22 @ 12:40 by Jakob Taveras MD) Chronic anemia Colitis COPD (chronic obstructive pulmonary disease) Gout Hyperlipidemia Hypertension Incarcerated left inguinal hernia Low back pain Migraine On home oxygen therapy 2-4L continuous Orthostatic hypotension Per records Osteoarthritis Right inguinal hernia Seizure 2018 (no known etiology) 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) Per records Tremor R/L hands/feet Surgical History H/O tooth extraction Lower teeth on 04/23/2018 History of colonoscopy History of open reduction and internal fixation (ORIF) procedure FEMUR L Trimalleolar fracture ORIF (04/30/21): LMA#4 + PNB at [facility] (multiple attempts at SAB unsuccessful 2/2 to bone per anesthesia record) S/P foot surgery RT/LEFT (HARDWARE INTACT) Family History Father Hypertension Aneurysm Mother Swelling Uncle Myocardial infarction Other No significant family history Denies family history of Ovarian cancer Prostate cancer Breast cancer Colorectal cancer Social History Smoking Status: Former smoker Tobacco Type: Cigarettes Age Started Using Tobacco: 14; Age Quit Using Tobacco: 69; packs per day: 1; Cigarettes Per Day: quit 2-4 years ago; Second Hand Exposure: No; Hx Alcohol Use: No Hx Substance Use: No Preferred Language: Georgian Communication Ability: Effective Communication Ability Comment: pt intubated and sedated Visual Impairment: Limited Hearing Ability: Normal Devulcanizer Charger Required: No Beliefs That Will Affect Care: None marital status: Current Living Situation: Spouse and Family Current Living Situation Comment: , granddaughter and her , 12 year old boy current occupational status: retired How many Children do You have: 2 Feels Safe at Home: Yes Childhood Exposure to Second-Hand Smoke: Yes Diet Comment: regular caffeine: No during the past year weight has: remained stable Dental Care, Regularly: No Physical Activity Frequency: Does not Exercise Seatbelt Use: always Sunscreen Use: No Assistive Devices: Cane, Glasses, Nebulizer, Oxygen - Continuous, Scooter/Electric Scooter and Walker Review of Systems Review of Systems: All systems reviewed & are unremarkable except as noted in HPI & below Physical Exam Physical Exam: General: A&Ox3. NAD. Cooperative. HEENT: Atraumatic, normocephalic. Vision/hearing grossly intact. Pulm: Scattered diffuse end expiratory wheezes with moderate air movement. Somewhat improved shortly after nebulizer on reassessment. Symmetrical chest rise. No increased work of breathing. No respiratory distress. 92% on 4 L of oxygen. Cardiac: RRR, -mrg. Radial pulses intact and symmetrical. Abdominal: Nontender, nondistended, soft. BS present. : Very large right & L inguinal hernia. No acute erythema, tenderness, warmth. Additional scrotal swelling is noted without tenderness/erythema. Extremities: Warm, dry. Bilateral mild pitting edema at baseline per patient. Nontender to palpation. Medical Examiner strength, ankle dorsiflexion/plantarflexion grossly 5/5 without asymmetry and sensation of soft touch is intact. Results & Data Results & Data Vital Signs (Past 12 Hours) Vital Signs Temp Pulse Resp BP Pulse Ox O2 Del Method 06/20/22 09:40 36.9 C 92 H 22 123/97 98 Nasal Cannula PG Care Time/CCT Total # of Minutes Spent Total Time Spent with Patient: Total time spent is greater than 50% in coordination of care (as documented) at patient's floor/unit and/or counseling patient: Coding Level of Care Code 28317 INT INP/OBS CARE 2/55MIN Diagnoses Acute exacerbation of chronic obstructive pulmonary disease J44.1 Essential hypertriglyceridemia E78.1 Essential hypertension I10 Tremor R25.1 Urinary retention R33.9 Anemia D64.9 Anemia type: unspecified type Superior mesenteric artery aneurysm I72.8 Inguinal hernia bilateral, non-recurrent K40.20 (6) Anemia Anemia type: unspecified type Qualified Code(s): D64.9 - Anemia, unspecified
[2022-06-20] MEDS ORDERED: AZITHROMYCIN 250 MG TAB PO ONE (15:36)
[2022-06-20] MEDS ORDERED: ALBUT/IPRATROP 3MG/0.5MG NEB 3 ML VIAL NEB PRN (15:36)
[2022-06-20] MEDS ORDERED: ACETAMINOPHEN 325 MG TAB PO PRN (15:36)
[2022-06-20] MEDS ORDERED: POLYETHYLENE (MIRALAX) 17 GM PACK PO PRN (15:36)
[2022-06-20] MEDS: ALBUT/IPRATROP 3MG/0.5MG NEB 3 ML VIAL NEB SCH ×3 (15:52→23:14)
[2022-06-20 16:05] LABS: Base Excess VBG 6.5 mEq/L; HCO3 VBG 34 mmol/L; Oxygen Saturation VBG < 60.0 %; PCO2 VBG 60 mmHg (38-50); PO2 VBG 27 mmHg; pH VBG 7.36 (7.36-7.41)
[2022-06-20] MEDS: predniSONE 20 MG TAB PO SCH (16:27)
[2022-06-20] MEDS: CYANOCOBALAMIN (B-12) 500 MCG TABLET PO SCH (20:48)
[2022-06-20] MEDS: PREGABALIN 100 MG CAP PO SCH (20:48)
[2022-06-20] MEDS: UMECLIDINIUM BROMIDE 62.5MCG/BLISTER 7 PUFFS/INHALER INH SCH (20:49)
[2022-06-21 00:03] LABS: Appearance Urine Clear (Clear); Bacteria Urine Automated Negative (Negative); Bilirubin Urine Negative (Negative); Blood Urine Negative (Negative); Color Urine Dark Yellow; Epithelial Cell Urine Auto >30 /lpf (0-5); Glucose Urine UA Negative (Negative); Ketones Urine 1+ (Negative); Leukocyte Esterase Urine Negative (Negative); Nitrite Urine Negative (Negative); Protein Urine Trace (Negative); RBC Urine Automated 0-4 /hpf (0-4); Specific Gravity Urine 1.028 (1.000-1.030); Urobilinogen Urine Negative (Negative); pH Urine 5.5 (4.5-7.5)
[2022-06-21] MEDS: ALBUT/IPRATROP 3MG/0.5MG NEB 3 ML VIAL NEB SCH ×6 (03:14→23:05)
[2022-06-21] MEDS: MULTIVITAMIN TAB PO SCH (08:12)
[2022-06-21] MEDS: FERROUS SULFATE 325 MG TAB PO SCH (08:13)
[2022-06-21] MEDS: ATORVASTATIN 40 MG TAB PO SCH (08:13)
[2022-06-21] MEDS: FUROSEMIDE 20 MG TAB PO SCH (08:13)
[2022-06-21] MEDS: MAGNESIUM OXIDE 400 MG TAB PO SCH (08:13)
[2022-06-21] MEDS: METOPROLOL SUCC 50MG EXT REL TAB PO SCH (08:14)
[2022-06-21] MEDS: AZITHROMYCIN 250 MG TAB PO SCH (08:14)
[2022-06-21] MEDS: predniSONE 20 MG TAB PO SCH (08:15)
[2022-06-21] MEDS: FLUTICASONE/VILANTEROL 200/25MCG 14 PUFFS/INHALER INH SCH (08:15)
[2022-06-21] MEDS: ENOXAPARIN INJ 40 MG/0.4 ML SYR SQ SCH (08:15)
[2022-06-21] MEDS: PREGABALIN 100 MG CAP PO SCH ×2 (08:26→20:14)
[2022-06-21 08:39] LABS: Basophils # (auto) 0.02 K/uL (0-0.2); Basophils % (auto) 0.2 %; Eosinophils # (auto) 0.02 K/uL (0-0.50); Eosinophils % (auto) 0.2 %; Hematocrit (blood only) 39.2 % (42.0-52.0); Hemoglobin 12.3 g/dl (14.0-18.0); Immature Granulocytes # (auto) 0.06 K/uL (0.01-0.20); Immature Granulocytes % (auto) 0.5 %; Lymphocytes # (auto) 1.18 K/uL (1.2-3.4); Lymphocytes % (auto) 10.4 %; Mean Corpuscular Hemoglobin 27.6 pg (25.0-34.0); Mean Corpuscular Hgb Conc 31.4 g/dL (32.0-36.0); Mean Corpuscular Volume 87.9 fL (80.0-100.0); Mean Platelet Volume 9.7 fL (9.4-12.4); Monocytes # (auto) 0.83 K/uL (0.11-0.59); Monocytes % (auto) 7.3 %; Neutrophils % (auto) 81.4 %; Platelet Count 270 K/uL (130-400); RDW Coefficient of Variation 14.8 % (11.5-14.5); RDW Standard Deviation 47.8 fL (36.4-46.3); Red Blood Count 4.46 M/uL (4.70-6.10); White Blood Count 11.31 K/ul (4.8-10.8)
--- NOTE | 2022-06-21 08:56 | Hospitalist Progress Note ---
Date of Service June 21, 2022 Assessment & Plan (1) Acute exacerbation of chronic obstructive pulmonary disease: Plan: Acute on chronic COPD, on 4 L home oxygen. Increased wheezing, shortness of breath, oxygen requirement up to 5 L, increased production of some creamy white sputum for 2 days. No fever/chills/sweats No leukocytosis, procalcitonin is negative, BNP is normal, high-sensitivity troponin 3.4 without chest pain Not on prednisone for several months, denied significant change on low dose prednisone Previously failed nighttime AVAPS, Darilesp, azithromycin Echo 09/21/2021: EF 65-70%, no regional wall motion abnormalities, no significant change from 2020. Grade 1 diastolic dysfunction Prior tobacco/alcohol use; No recent use in prior 4 years 06/21 Continue Advair and Incruse/formulary equivalent. -- typically takes advair BID, incruse at night, albuteorl neb Q4hr VBG on admit, CO2 60 On 4L O2 presently, oxygenating well but still w/ significant wheezing/rales, likely mucus plugging Added Mucinex BID, hypertonic saline nebs BID Continue incentive spirometer, flutter valve Sputum cx if able to produce Continue prednisone 40mg x 5 days Continue azithro (consider switching to Doxy given lack of improvement in the past w/ Azithro). Check sputum cx (prior +staph aureus) Pulm consulted pending -- appreciate recs/assistance Titrate SPO2 89-94%, do not hyperoxygenate (2) Essential hypertension: Plan: Continue metoprolol, Lasix every other day. No history of heart failure; last echo 08/2021 with normal EF, no wall motion abnormalities, grade 1 diastolic dysfunction BNP normal on admit, however weights are up in the system Maintain good BP control w/ diastolic dysfunction -- currently 125/73 (3) Essential hypertriglyceridemia: Plan: Continue statin (4) Tremor: Plan: Mild resting tremor in hands, no change - anxious. ?from steroids, none witnessed at present No evidence of strokelike deficits (5) Urinary retention: Plan: No symptoms per patient, does not take medication at this time. Bladder scan as needed, if retaining start Flomax and cath as needed for PVR greater than 350 2nd to hernias -- monitor (6) Anemia: Plan: Hemoglobin 12.4 on admission, no signs of bleeding. Stools can be dark with iron Continue iron repletion, B12. Iron changed from twice daily to daily due to absorption limitation and contribution to Hgb stable and monitor (7) Superior mesenteric artery aneurysm: Plan: Patient aware, following as outpatient. No acute management at this time (8) Inguinal hernia bilateral, non-recurrent: Plan: Patient with known r bilateral inguinal hernia containing portions of urinary bladder, multiple bowel loops without obstruction/inflammation. At bedside has not changed, no acute tenderness/warmth/swelling. Additional scrotal swelling is noted Patient is following with [facility] and is pending operative repair 07/18. Patient is aware that he is increased risk due to his severe COPD with chronic respiratory failure. No acute management indicated at time of assessment Patient is not having any lower urinary tract symptoms, can bladder scan if concern for postvoid residual/obstructive uropathy due to pressure effect Alerted of red flag signs which would warrant surgery consultation sooner -- no evidence for incarceration/strangulation at present Plan DVT prophylaxis: Lovenox for DVT prophylaxis Continued inpatient stay If staying past tomorrow will need to change to full admit Admission and Anticipated Discharge Date Admission Date: June 20, 2022 Supervising Physician Co-Signing Physician Notes The patient was seen by me. The chart was reviewed. Case discussed with TISHA Dawkins. Agree with assessment and plan Subjective eval this morning, doing alright. still short of breath anxious working with therapy and thinking going to get kicked out feels like mucus getting stuck -- discussed his inhalers he takes advair in AM and night, Incruse at night and albuterol Q4H during the day. Discussed will check but sometimes hospital formulary requires changes. Discussed hypertonic saline, he doesn't believe he has had this before but only gets some sputum up after neb treatments. Will order and monitor. He is very anxious that he will be "kicked out" and have to come right back. Does have issues w/ moving bowels w/ his hernias. He has to push back in when he has to move them. Non painful but did discuss warning signs/warmth/pain to alert for more urgent need for intervention. Questions/concerns addressed at this time. Physical Exam Physical Exam: General: chronically ill appearing male sitting up at side of bed, NAD but mildly dyspneic finishng up with therapy HEENT: pupils equal/reactive, head normocephalic, mmm Resp: upper airway congestion/rales/wheezing posteriorly and anteriorly (posterior>anterior), diminished in the bases, +clubbing of nails On 4L NC CV: RRR, no significant m/r/g, trace LE edema, no calf tenderness GI: +BS, soft/NT : LARGE B/L INGUINAL HERNIAS, SCROTAL EDEMA, hernias REDUCIBLE (but recur right away) NONTENDER MSK/Neuro: moves all extremities, no focal deficits Psych: AOx3, cooperative but anxious Results & Data Results & Data Vital Signs (Past 12 Hours) Vital Signs Temp Pulse Resp BP Pulse Ox O2 Del Method O2 Flow Rate 06/21/22 07:47 36.5 C 95 H 16 125/73 98 Nasal Cannula 4 06/21/22 07:08 83 18 100 Nasal Cannula 4 06/21/22 03:15 68 18 99 Nasal Cannula 4 06/20/22 23:17 102 H 20 97 Nasal Cannula 4 06/20/22 22:00 36.6 C 108 H 18 111/68 97 Nasal Cannula 06/20/22 21:31 Nasal Cannula 4 Laboratory Results 06/21/22 06/21/22 06/21/22 Range/Units 08:01 08:01 08:01 WBC 11.31 H (4.8-10.8) K/ul RBC 4.46 L (4.70-6.10) M/uL Hgb 12.3 L (14.0-18.0) g/dl Hct 39.2 L (42.0-52.0) % MCV 87.9 (80.0-100.0) fL MCH 27.6 (25.0-34.0) pg MCHC 31.4 L (32.0-36.0) g/dL RDW Std Deviation 47.8 H (36.4-46.3) fL RDW Coeff of Jem 14.8 H (11.5-14.5) % Plt Count 270 (130-400) K/uL MPV 9.7 (9.4-12.4) fL Immature Gran % (Auto) 0.5 % Neut % (Auto) 81.4 % Lymph % (Auto) 10.4 % [place] % (Auto) 7.3 % Eos % (Auto) 0.2 % Baso % (Auto) 0.2 % Neut # (Auto) 9.20 H (1.40-6.50) K/uL Lymph # (Auto) 1.18 L (1.2-3.4) K/uL [place] # (Auto) 0.83 H (0.11-0.59) K/uL Eos # (Auto) 0.02 (0-0.50) K/uL Baso # (Auto) 0.02 (0-0.2) K/uL Immature Gran # (Auto) 0.06 (0.01-0.20) K/uL PT (9.0-12.0) Seconds INR (0.9-1.1) APTT 24.7 (21.0-31.0) Seconds PTT Ratio 0.9 VBG pH (7.36-7.41) VBG pCO2 (38-50) mmHg VBG pO2 mmHg VBG HCO3 mmol/L VBG O2 Saturation % VBG Base Excess mEq/L Sodium 140 (136-145) mmol/L Potassium 4.0 (3.5-5.1) mmol/L Chloride 102 (98-107) mmol/L Carbon Dioxide 31 (21-32) mmol/L Anion Gap 7 (3-11) BUN 29 H (6-23) mg/dl Creatinine 1.04 (0.6-1.4) mg/dl Est Cr Clr Drug Dosing 76.4 ml/min Est GFR ( Amer) 84.5 ml/min Est GFR (Non-Af Amer) 72.9 ml/min BUN/Creatinine Ratio 27.9 H (10-20) Glucose 106 H (70-99(Fasting)) mg/dl Calcium 9.6 (8.5-10.1) mg/dl Magnesium (1.7-2.4) mg/dl Total Bilirubin (0.2-1.0) mg/dl AST (13-39) U/L ALT (7-52) U/L Alkaline Phosphatase (34-104) U/L Troponin I High Sens (0-20) pg/ml B-Natriuretic Peptide (0-100) pg/ml Total Protein (6.0-8.3) gm/dl Albumin (3.4-5.0) gm/dl Globulin (2.5-4.0) gm/dl Albumin/Globulin Ratio (0.9-2) Procalcitonin (0-0.5) ng/ml Urine Color Urine Appearance (Clear) Urine pH (4.5-7.5) Ur Specific [place] (1.000-1.030) Urine Protein (Negative) Urine Glucose (UA) (Negative) Urine Ketones (Negative) Urine Blood (Negative) Urine Nitrite (Negative) Urine Bilirubin (Negative) Urine Urobilinogen (Negative) Ur Leukocyte Esterase (Negative) Urine WBC (Auto) (0-5) /hpf Urine RBC (Auto) (0-4) /hpf U Hyaline Cast (Auto) (0-5) /lpf U Epithel Cells (Auto) (0-5) /lpf Urine Bacteria (Auto) (Negative) SARS-CoV-2, RNA, NAAT (NEGATIVE) 06/20/22 06/20/22 06/20/22 Range/Units Unknown 23:45 15:58 WBC (4.8-10.8) K/ul RBC (4.70-6.10) M/uL Hgb (14.0-18.0) g/dl Hct (42.0-52.0) % MCV (80.0-100.0) fL MCH (25.0-34.0) pg MCHC (32.0-36.0) g/dL RDW Std Deviation (36.4-46.3) fL RDW Coeff of Jem (11.5-14.5) % Plt Count (130-400) K/uL MPV (9.4-12.4) fL Immature Gran % (Auto) % Neut % (Auto) % Lymph % (Auto) % [place] % (Auto) % Eos % (Auto) % Baso % (Auto) % Neut # (Auto) (1.40-6.50) K/uL Lymph # (Auto) (1.2-3.4) K/uL [place] # (Auto) (0.11-0.59) K/uL Eos # (Auto) (0-0.50) K/uL Baso # (Auto) (0-0.2) K/uL Immature Gran # (Auto) (0.01-0.20) K/uL PT (9.0-12.0) Seconds INR (0.9-1.1) APTT (21.0-31.0) Seconds PTT Ratio VBG pH 7.36 (7.36-7.41) VBG pCO2 60 H (38-50) mmHg VBG pO2 27 mmHg VBG HCO3 34 mmol/L VBG O2 Saturation < 60.0 % VBG Base Excess 6.5 mEq/L Sodium (136-145) mmol/L Potassium (3.5-5.1) mmol/L Chloride (98-107) mmol/L Carbon Dioxide (21-32) mmol/L Anion Gap (3-11) BUN (6-23) mg/dl Creatinine (0.6-1.4) mg/dl Est Cr Clr Drug Dosing ml/min Est GFR ( Amer) ml/min Est GFR (Non-Af Amer) ml/min BUN/Creatinine Ratio (10-20) Glucose (70-99(Fasting)) mg/dl Calcium (8.5-10.1) mg/dl Magnesium (1.7-2.4) mg/dl Total Bilirubin (0.2-1.0) mg/dl AST (13-39) U/L ALT (7-52) U/L Alkaline Phosphatase (34-104) U/L Troponin I High Sens (0-20) pg/ml B-Natriuretic Peptide (0-100) pg/ml Total Protein (6.0-8.3) gm/dl Albumin (3.4-5.0) gm/dl Globulin (2.5-4.0) gm/dl Albumin/Globulin Ratio (0.9-2) Procalcitonin (0-0.5) ng/ml Urine Color Dark Yellow Urine Appearance Clear (Clear) Urine pH 5.5 (4.5-7.5) Ur Specific [place] 1.028 (1.000-1.030) Urine Protein Trace H (Negative) Urine Glucose (UA) Negative (Negative) Urine Ketones 1+ H (Negative) Urine Blood Negative (Negative) Urine Nitrite Negative (Negative) Urine Bilirubin Negative (Negative) Urine Urobilinogen Negative (Negative) Ur Leukocyte Esterase Negative (Negative) Urine WBC (Auto) 1-5 (0-5) /hpf Urine RBC (Auto) 0-4 (0-4) /hpf U Hyaline Cast (Auto) 5-10 H (0-5) /lpf U Epithel Cells (Auto) >30 H (0-5) /lpf Urine Bacteria (Auto) Negative (Negative) SARS-CoV-2, RNA, NAAT NEGATIVE (NEGATIVE) 06/20/22 06/20/22 06/20/22 Range/Units 10:00 10:00 10:00 WBC (4.8-10.8) K/ul RBC (4.70-6.10) M/uL Hgb (14.0-18.0) g/dl Hct (42.0-52.0) % MCV (80.0-100.0) fL MCH (25.0-34.0) pg MCHC (32.0-36.0) g/dL RDW Std Deviation (36.4-46.3) fL RDW Coeff of Jem (11.5-14.5) % Plt Count (130-400) K/uL MPV (9.4-12.4) fL Immature Gran % (Auto) % Neut % (Auto) % Lymph % (Auto) % [place] % (Auto) % Eos % (Auto) % Baso % (Auto) % Neut # (Auto) (1.40-6.50) K/uL Lymph # (Auto) (1.2-3.4) K/uL [place] # (Auto) (0.11-0.59) K/uL Eos # (Auto) (0-0.50) K/uL Baso # (Auto) (0-0.2) K/uL Immature Gran # (Auto) (0.01-0.20) K/uL PT (9.0-12.0) Seconds INR (0.9-1.1) APTT (21.0-31.0) Seconds PTT Ratio VBG pH (7.36-7.41) VBG pCO2 (38-50) mmHg VBG pO2 mmHg VBG HCO3 mmol/L VBG O2 Saturation % VBG Base Excess mEq/L Sodium 140 (136-145) mmol/L Potassium 4.0 (3.5-5.1) mmol/L Chloride 103 (98-107) mmol/L Carbon Dioxide 32 (21-32) mmol/L Anion Gap 5 (3-11) BUN 21 (6-23) mg/dl Creatinine 0.86 (0.6-1.4) mg/dl Est Cr Clr Drug Dosing 92.4 ml/min Est GFR ( Amer) 102.5 ml/min Est GFR (Non-Af Amer) 88.5 ml/min BUN/Creatinine Ratio 24.4 H (10-20) Glucose 97 (70-99(Fasting)) mg/dl Calcium 9.6 (8.5-10.1) mg/dl Magnesium 2.1 (1.7-2.4) mg/dl Total Bilirubin 0.7 (0.2-1.0) mg/dl AST 18 (13-39) U/L ALT 12 (7-52) U/L Alkaline Phosphatase 86 (34-104) U/L Troponin I High Sens 3.4 (0-20) pg/ml B-Natriuretic Peptide 23 (0-100) pg/ml Total Protein 7.2 (6.0-8.3) gm/dl Albumin 4.1 (3.4-5.0) gm/dl Globulin 3.1 (2.5-4.0) gm/dl Albumin/Globulin Ratio 1.3 (0.9-2) Procalcitonin < 0.05 (0-0.5) ng/ml Urine Color Urine Appearance (Clear) Urine pH (4.5-7.5) Ur Specific [place] (1.000-1.030) Urine Protein (Negative) Urine Glucose (UA) (Negative) Urine Ketones (Negative) Urine Blood (Negative) Urine Nitrite (Negative) Urine Bilirubin (Negative) Urine Urobilinogen (Negative) Ur Leukocyte Esterase (Negative) Urine WBC (Auto) (0-5) /hpf Urine RBC (Auto) (0-4) /hpf U Hyaline Cast (Auto) (0-5) /lpf U Epithel Cells (Auto) (0-5) /lpf Urine Bacteria (Auto) (Negative) SARS-CoV-2, RNA, NAAT (NEGATIVE) 06/20/22 06/20/22 Range/Units 10:00 10:00 WBC 9.03 (4.8-10.8) K/ul RBC 4.47 L (4.70-6.10) M/uL Hgb 12.4 L (14.0-18.0) g/dl Hct 39.6 L (42.0-52.0) % MCV 88.6 (80.0-100.0) fL MCH 27.7 (25.0-34.0) pg MCHC 31.3 L (32.0-36.0) g/dL RDW Std Deviation 48.4 H (36.4-46.3) fL RDW Coeff of Jem 14.9 H (11.5-14.5) % Plt Count 243 (130-400) K/uL MPV 9.8 (9.4-12.4) fL Immature Gran % (Auto) 0.3 % Neut % (Auto) 71.0 % Lymph % (Auto) 13.7 % [place] % (Auto) 7.8 % Eos % (Auto) 6.6 % Baso % (Auto) 0.6 % Neut # (Auto) 6.41 (1.40-6.50) K/uL Lymph # (Auto) 1.24 (1.2-3.4) K/uL [place] # (Auto) 0.70 H (0.11-0.59) K/uL Eos # (Auto) 0.60 H (0-0.50) K/uL Baso # (Auto) 0.05 (0-0.2) K/uL Immature Gran # (Auto) 0.03 (0.01-0.20) K/uL PT 10.8 (9.0-12.0) Seconds INR 1.0 (0.9-1.1) APTT 26.5 (21.0-31.0) Seconds PTT Ratio 1.0 VBG pH (7.36-7.41) VBG pCO2 (38-50) mmHg VBG pO2 mmHg VBG HCO3 mmol/L VBG O2 Saturation % VBG Base Excess mEq/L Sodium (136-145) mmol/L Potassium (3.5-5.1) mmol/L Chloride (98-107) mmol/L Carbon Dioxide (21-32) mmol/L Anion Gap (3-11) BUN (6-23) mg/dl Creatinine (0.6-1.4) mg/dl Est Cr Clr Drug Dosing ml/min Est GFR ( Amer) ml/min Est GFR (Non-Af Amer) ml/min BUN/Creatinine Ratio (10-20) Glucose (70-99(Fasting)) mg/dl Calcium (8.5-10.1) mg/dl Magnesium (1.7-2.4) mg/dl Total Bilirubin (0.2-1.0) mg/dl AST (13-39) U/L ALT (7-52) U/L Alkaline Phosphatase (34-104) U/L Troponin I High Sens (0-20) pg/ml B-Natriuretic Peptide (0-100) pg/ml Total Protein (6.0-8.3) gm/dl Albumin (3.4-5.0) gm/dl Globulin (2.5-4.0) gm/dl Albumin/Globulin Ratio (0.9-2) Procalcitonin (0-0.5) ng/ml Urine Color Urine Appearance (Clear) Urine pH (4.5-7.5) Ur Specific [place] (1.000-1.030) Urine Protein (Negative) Urine Glucose (UA) (Negative) Urine Ketones (Negative) Urine Blood (Negative) Urine Nitrite (Negative) Urine Bilirubin (Negative) Urine Urobilinogen (Negative) Ur Leukocyte Esterase (Negative) Urine WBC (Auto) (0-5) /hpf Urine RBC (Auto) (0-4) /hpf U Hyaline Cast (Auto) (0-5) /lpf U Epithel Cells (Auto) (0-5) /lpf Urine Bacteria (Auto) (Negative) SARS-CoV-2, RNA, NAAT (NEGATIVE) Diagnostic Findings Chest X-Ray 06/20/22 09:40 XR chest 1V portable HISTORY: 71 years-old Male Dyspnea acute shortness of breath COMPARISON: 02/18/2022 TECHNIQUE: AP view of the chest FINDINGS: Cardiac mediastinal and hilar silhouettes are within normal limits. No pneumothorax, large pleural effusion or overt pulmonary edema. Mild subsegmental left basilar atelectasis versus scarring. Degenerative changes of the shoulders and spine. IMPRESSION: No acute process. ACT 112: Negative or not required by law. The above report was generated using voice recognition software. It may contain grammatical, syntax or spelling errors. Electronically signed by: Jayme Portillo M.D. 06/20/2022 10:01 AM PG Care Time/CCT Total # of Minutes Spent Total Time Spent with Patient: Total time spent is greater than 50% in coordination of care (as documented) at patient's floor/unit and/or counseling patient: Coding Level of Care Code 06801 SUB INP/OBS CARE 50MIN Diagnoses Acute exacerbation of chronic obstructive pulmonary disease J44.1 Essential hypertension I10 Essential hypertriglyceridemia E78.1 Tremor R25.1 Urinary retention R33.9 Anemia D64.9 Anemia type: unspecified type Superior mesenteric artery aneurysm I72.8 Inguinal hernia bilateral, non-recurrent K40.20 (6) Anemia Anemia type: unspecified type Qualified Code(s): D64.9 - Anemia, unspecified
[2022-06-21 09:02] LABS: Partial Thromboplastin Ratio 0.9; Partial Thromboplastin Time 24.7 Seconds (21.0-31.0)
[2022-06-21] MEDS: guaiFENesin 600 MG TABCR PO SCH ×2 (09:03→20:11)
[2022-06-21 09:08] LABS: BUN Creatinine Ratio 27.9 (10-20); Calcium 9.6 mg/dl (8.6-10.3); Creatinine Clr Calc Pharmacy 76.4 ml/min; Est GFR (African American) 84.5 ml/min; Est GFR (Non-African American) 72.9 ml/min
--- NOTE | 2022-06-21 09:33 | Pulmonary Consultation ---
Date of Consultation June 21, 2022 Assessment & Plan (1) Pulmonary emphysema: (2) Acute exacerbation of chronic obstructive pulmonary disease (COPD): (3) Chronic respiratory failure with hypoxia: (4) Respiratory failure with hypoxia and hypercapnia: (5) COPD, severe: Plan CT chest 09/20/2021 personally reviewed: Centrilobular and paraseptal emphysema appreciated bilaterally No mediastinal lymphadenopathy Chest x-ray 06/20/2022 personally reviewed: Portable film, bilateral costophrenic and cardiophrenic recycling, no clear lung infiltrate appreciated VBG 06/20/2022: 7.36/60/27 -- Acute on chronic chronic hypercapnic hypoxic respiratory failure Likely she can [place] to COPD exacerbation Patient failed AVAPS machine in the past. SARS NAAT negative Procalcitonin negative --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 Not compliant with Incruse as per the notes Patient has failed azithromycin as well as Daliresp as an outpatient Continue with triple therapy while in the hospital. -- Obesity Advised to lose with diet and exercise Plan: Continue with Solu-Medrol 40 mg twice daily Continue with hypertonic saline and Mucinex along with flutter valve Complete 5 days of azithromycin Follow sputum culture Please note the above document was generated using voice recognition software. It may contain grammatical, syntax or spelling errors.Any formal questions or concerns about the content, text or information contained within the body of this dictation should be directly addressed to the provider for clarification. History of Present Illness Attending Physician: Malick Cruz MD History of Present Illness 71-year-old male presented to the hospital with shortness of breath Past medical history: COPD on chronic oxygen at home, BPH, lymphedema Pulmonary consulted for the same Patient follows up with Dr. Dominguez as an outpatient, previous note personally reviewed At the time of examination patient was getting nebulized treatment. He said that he has been having worsening shortness of breath going on for a while He uses oxygen at home but he does not have any AVAPS machine. Has been coughing and bringing up clear to greenish phlegm. Denies any hemoptysis No chest pain, no chest tightness, does complain of occasional wheezing. No headache, no blurry vision No dysuria, no diarrhea. Positive subjective fever. No chills Patient states that he is compliant with his inhalers on a regular basis Social history: Greater than 72-[id number] smoking history, quit at the age of 67 Allergies Allergy/AdvReac Type Severity Reaction Status Date / Time No Known Allergies Allergy Verified 05/22/22 11:50 Home Medications Medication Instructions Recorded Confirmed Type Lactobacills gasseri-Bifidobac 1 cap PO QAM 02/25/19 06/20/22 History bifidum,longum 1.5 billion cell capsule (Probiotic Colon Support) nebulizer accessories #1 ea 12/22/20 05/22/22 Rx cyanocobalamin (vitamin B-12) 1,000 mcg PO HS 03/08/21 06/20/22 History 1,000 mcg tablet (Vitamin B-12) ferrous sulfate 325 mg (65 mg 325 mg PO BID #60 tabs 05/03/21 06/20/22 Rx iron) tablet,delayed release multivitamin with folic acid 400 1 tab PO QAM #30 tabs 05/03/21 06/20/22 Rx mcg tablet (Daily-[place] (with folic acid)) polyethylene glycol 3350 17 gram 17 g PO DAILY PRN constipation #30 05/03/21 06/20/22 Rx oral powder packet (Miralax) ea magnesium oxide 400 mg (241.3 mg 400 mg PO QAM 06/17/21 06/20/22 History magnesium) tablet nebulizers (Compact Compressor #1 ea 09/29/21 05/22/22 Rx Nebulizer) sumatriptan succinate 50 mg tablet 50 mg PO Q2H PRN migraine headache 12/08/21 06/20/22 Rx #9 tabs docusate sodium 100 mg capsule 100 mg PO BID PRN Constipation 01/13/22 06/20/22 History Portable Oxygen 03/08/22 05/22/22 History fluticasone 500 mcg-salmeterol 50 1 inh inhalation BID #90 puffs 03/08/22 06/20/22 Rx mcg/dose blistr powdr for inhalation (Advair Diskus) albuterol sulfate 90 mcg/actuation 1 - 2 puff inhalation Q4H PRN 04/19/22 06/20/22 Rx aerosol inhaler Shortness Of Breath #54 grams metoprolol succinate 50 mg 50 mg PO DAILY #90 tabs 04/26/22 06/20/22 Rx tablet,extended release 24 hr pregabalin 100 mg capsule 100 mg PO BID #60 caps 05/16/22 05/22/22 Rx furosemide 20 mg tablet (Lasix) 20 mg PO Q OTHER DAY #15 tabs 05/30/22 06/20/22 Rx atorvastatin 40 mg tablet 40 mg PO DAILY 06/20/22 06/20/22 History umeclidinium 62.5 mcg/actuation 1 inh inhalation HS 06/20/22 06/20/22 History blister powder for inhalation (Incruse Ellipta) Patient History Medical History Chronic anemia Colitis COPD (chronic obstructive pulmonary disease) Gout Hyperlipidemia Hypertension Incarcerated left inguinal hernia Low back pain Migraine On home oxygen therapy 2-4L continuous Orthostatic hypotension Per records Osteoarthritis Right inguinal hernia Seizure 2018 (no known etiology) 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) Per records Tremor R/L hands/feet Surgical History H/O tooth extraction Lower teeth on 04/23/2018 History of colonoscopy History of open reduction and internal fixation (ORIF) procedure FEMUR L Trimalleolar fracture ORIF (04/30/21): LMA#4 + PNB at [facility] (multiple attempts at SAB unsuccessful 2/2 to bone per anesthesia record) S/P foot surgery RT/LEFT (HARDWARE INTACT) Family History Father Hypertension Aneurysm Mother Swelling Uncle Myocardial infarction Other No significant family history Denies family history of Ovarian cancer Prostate cancer Breast cancer Colorectal cancer Social History Smoking Status: Former smoker Tobacco Type: Cigarettes Age Started Using Tobacco: 14; Age Quit Using Tobacco: 69; packs per day: 1; Cigarettes Per Day: quit 2-4 years ago; Second Hand Exposure: No; Hx Alcohol Use: No Hx Substance Use: No Preferred Language: Malawian Communication Ability: Effective Communication Ability Comment: pt intubated and sedated Visual Impairment: Limited Hearing Ability: Normal Window Machine Operator Required: No Beliefs That Will Affect Care: None marital status: Current Living Situation: Spouse and Family Current Living Situation Comment: , granddaughter and her , 12 year old boy current occupational status: retired How many Children do You have: 2 Other Information That Helps Us Care for You: No Feels Safe at Home: Yes Childhood Exposure to Second-Hand Smoke: Yes Diet Comment: regular caffeine: No during the past year weight has: remained stable Dental Care, Regularly: No Physical Activity Frequency: Does not Exercise Seatbelt Use: always Sunscreen Use: No Assistive Devices: Cane, Nebulizer and Walker Review of Systems Review of Systems: All systems reviewed & are unremarkable except as noted in HPI & below Physical Exam Physical Exam: Constitutional: No acute distress HEENT: EOMI, PERRLA Respiratory system: Decreased air entry bilaterally, positive bilateral rhonchi, positive expiratory wheeze, positive mild crackles bilateral lower lobes CVS: S1-S2 positive, no murmurs or gallops Abdomen: Soft, nontender, nondistended, positive bowel sounds x4 Extremities: +2 pulses bilaterally radialis/ dorsalis pedis, no cyanosis, no e dayanara Neuro: Awake alert oriented x3 Psych: Normal mood and affect G/U: No Farrell Skin: no rashes, warm and dry Lymphatic: no cervical or axillary lymphadenopathy Results & Data Results & Data Vital Signs (Past 12 Hours) Vital Signs Temp Pulse Resp BP Pulse Ox O2 Del Method O2 Flow Rate 06/21/22 07:47 36.5 C 95 H 16 125/73 98 Nasal Cannula 4 06/21/22 07:08 83 18 100 Nasal Cannula 4 06/21/22 03:15 68 18 99 Nasal Cannula 4 06/20/22 23:17 102 H 20 97 Nasal Cannula 4 06/20/22 22:00 36.6 C 108 H 18 111/68 97 Nasal Cannula 06/20/22 21:31 Nasal Cannula 4 Laboratory Results 06/21/22 08:01 06/21/22 08:01 PG Care Time/CCT Total # of Minutes Spent Total Time Spent with Patient: Total time spent is greater than 50% in coordination of care (as documented) at patient's floor/unit and/or counseling patient: Coding Level of Care Code 86140 INT INP/OBS CARE 75MIN Diagnoses Pulmonary emphysema J43.9 Acute exacerbation of chronic obstructive pulmonary disease (COPD) J44.1 Chronic respiratory failure with hypoxia J96.11 Respiratory failure with hypoxia and hypercapnia J96.91; J96.92 COPD, severe J44.9
[2022-06-21] MEDS: SODIUM CHLOR 7% 4 ML NEB NEB SCH ×2 (11:10→19:44)
--- NOTE | 2022-06-21 11:57 | Electrocardiogram Report ---
Test Reason : Blood Pressure : / mmHG Vent. Rate : 093 BPM Atrial Rate : 093 BPM P-R Int : 202 ms QRS Dur : 074 ms QT Int : 338 ms P-R-T Axes : 044 -09 023 degrees QTc Int : 420 ms Sinus rhythm with occasional Premature ventricular complexes Possible Inferior infarct , age undetermined Abnormal ECG When compared with ECG of 18-FEB-2022 15:50, Premature ventricular complexes are now Present Borderline criteria for Inferior infarct are now Present Confirmed by Fidel Walker ([id number]) on 06/21/2022 11:57:02 AM Referred By: REFERRED SELF Confirmed By:Raudel Walker
[2022-06-21] MEDS: DOCUSATE SODIUM 100 MG CAP PO PRN (20:11)
[2022-06-21] MEDS: UMECLIDINIUM BROMIDE 62.5MCG/BLISTER 7 PUFFS/INHALER INH SCH (20:12)
[2022-06-21] MEDS: CYANOCOBALAMIN (B-12) 500 MCG TABLET PO SCH (20:12)
[2022-06-22] MEDS: ALBUT/IPRATROP 3MG/0.5MG NEB 3 ML VIAL NEB SCH ×6 (03:07→23:09)
[2022-06-22 07:00] LABS: Allen Test Pos (Pos); HCO3 ABG 32 mmol/L (19-24); Oxygen Saturation ABG 99.1 % (90-95); PCO2 ABG 52 mmHg (35-46); PO2 ABG 103 mmHg (80-95)
[2022-06-22] MEDS: SODIUM CHLOR 7% 4 ML NEB NEB SCH ×2 (07:06→19:53)
[2022-06-22 07:08] LABS: Hematocrit (blood only) 34.6 % (42.0-52.0); Hemoglobin 11.2 g/dl (14.0-18.0); Mean Corpuscular Hemoglobin 27.8 pg (25.0-34.0); Mean Corpuscular Hgb Conc 32.4 g/dL (32.0-36.0); Mean Corpuscular Volume 85.9 fL (80.0-100.0); Mean Platelet Volume 9.9 fL (9.4-12.4); Platelet Count 214 K/uL (130-400); RDW Standard Deviation 47.2 fL (36.4-46.3); Red Blood Count 4.03 M/uL (4.70-6.10); White Blood Count 8.85 K/ul (4.8-10.8)
[2022-06-22 07:29] LABS: BUN Creatinine Ratio 37.1 (10-20); Calcium 8.9 mg/dl (8.6-10.3); Creatinine Clr Calc Pharmacy 89.2 ml/min; Est GFR (African American) 101.1 ml/min; Est GFR (Non-African American) 87.2 ml/min; Magnesium 2.1 mg/dl (1.7-2.4); Potassium 3.9 mmol/L (3.5-5.1)
--- NOTE | 2022-06-22 08:23 | Hospitalist Progress Note ---
Date of Service June 22, 2022 Assessment & Plan (1) Acute exacerbation of chronic obstructive pulmonary disease: Plan: Acute on chronic COPD, on 4 L home oxygen. Increased wheezing, shortness of breath, oxygen requirement up to 5 L, increased production of some creamy white sputum for 2 days. No fever/chills/sweats No leukocytosis, procalcitonin is negative, BNP is normal, high-sensitivity troponin 3.4 without chest pain Not on prednisone for several months, denied significant change on low dose prednisone Previously failed nighttime AVAPS, Darilesp, azithromycin Echo 09/21/2021: EF 65-70%, no regional wall motion abnormalities, no significant change from 2020. Grade 1 diastolic dysfunction Prior tobacco/alcohol use; No recent use in prior 4 years Procal negative Continue Advair and Incruse/formulary equivalent. -- typically takes advair BID, incruse at night, albuterol neb Q4hr 06/22 99% on his usual 4L -- titrate to maintain sats given ABG Reports improvement/clearance of sputum and congestion w/ addition of hypertonic saline Continues on hypertonic saline BID, Mucinex, incentive spirometer/flutter valve Pulm on consult -- switched from prednisone to methylprednisolone 40mg IV BID, complete 5 day course Azithromycin, continue other interventions Monitor Sputum cx -> GS with gram + cocci, gram + bacilli, many WBC, rare epithelial cells -- culture pending may need to escalate abx regimen but afebrile/no leukocytosis at present and will continue current regimen, could be colinization however low threshold to escalate abx if condition worsens w/ above intervention (2) Essential hypertension: Plan: Continue metoprolol, Lasix every other day. No history of heart failure; last echo 08/2021 with normal EF, no wall motion abnormalities, grade 1 diastolic dysfunction BNP normal on admit, however weights are up in the system Maintain good BP control w/ diastolic dysfunction -- currently 115/69 (3) Essential hypertriglyceridemia: Plan: Continue statin (4) Tremor: Plan: Mild resting tremor in hands, no change - anxious. ?from steroids, none witnessed at present No evidence of strokelike deficits (5) Urinary retention: Plan: No symptoms per patient, does not take medication at this time. Bladder scan as needed, if retaining start Flomax and cath as needed for PVR greater than 350 2nd to hernias -- monitor (6) Anemia: Plan: Hemoglobin 12.4 on admission, no signs of bleeding. Stools can be dark with iron Continue iron repletion, B12. Iron changed from twice daily to daily due to absorption limitation and contribution to Hgb stable and monitor (7) Superior mesenteric artery aneurysm: Plan: Patient aware, following as outpatient. No acute management at this time (8) Inguinal hernia bilateral, non-recurrent: Plan: Patient with known r bilateral inguinal hernia containing portions of urinary bladder, multiple bowel loops without obstruction/inflammation. At bedside has not changed, no acute tenderness/warmth/swelling. Additional scrotal swelling is noted Patient is following with [facility] and is pending operative repair 07/18. Patient is aware that he is increased risk due to his severe COPD with chronic respiratory failure. No acute management indicated at time of assessment Patient is not having any lower urinary tract symptoms, can bladder scan if concern for postvoid residual/obstructive uropathy due to pressure effect Alerted of red flag signs which would warrant surgery consultation sooner -- no evidence for incarceration/strangulation at present Plan DVT prophylaxis: Lovenox for DVT prophylaxis Changed to full admit Continued inpatient stay Admission and Anticipated Discharge Date Admission Date: June 20, 2022 Supervising Physician Co-Signing Physician Notes The patient was not seen by me. The chart was reviewed. Case discussed with TISHA Dawkins. Agree with assessment and plan Subjective eval this morning, appears w/ improvement in breathing, not as tight got up to use restroom but was a little short of breath getting back to bed reports improvement in sputum production/clearance w/ hypertonic saline nebs and wondering if able to take at home. Also using inhaled fluticasone from his home supplies of note. Discussed sending down to lab -- he prefers not. Discussed continuing IV steroids for now. Review of Systems Review of Systems: All systems reviewed & are unremarkable except as noted in HPI & below Physical Exam Physical Exam: General: chronically ill appearing male resting in bed, appears more comf ortable, less cough, NAD HEENT: pupils equal/reactive, head normocephalic, mmm Resp: reduced upper airway congestion, decreased expiratory wheezing but still present throughout, decreased rhonchi, decreased bibasilar crackles, on 4L NC CV: RRR, no significant m/r/g, trace LE edema, no calf tenderness GI: +BS, soft/NT : LARGE B/L INGUINAL HERNIAS, SCROTAL EDEMA, hernias REDUCIBLE (but recur right away) NONTENDER MSK/Neuro: moves all extremities, no focal deficits Psych: AOx3, cooperative but anxious at times Results & Data Results & Data Vital Signs (Past 12 Hours) Vital Signs Temp Pulse Resp BP Pulse Ox O2 Del Method O2 Flow Rate 06/22/22 07:45 36.5 C 77 20 115/69 99 Nasal Cannula 4 06/22/22 07:07 64 18 98 Nasal Cannula 4 06/22/22 03:07 69 18 96 Nasal Cannula 4 06/21/22 23:07 91 H 98 Nasal Cannula 4 06/21/22 22:00 36.8 C 88 20 115/72 98 Nasal Cannula 4 06/21/22 22:41 36.6 C 85 20 121/74 98 Nasal Cannula 4 06/21/22 20:58 Nasal Cannula 4 Laboratory Results 06/22/22 06/22/22 06/22/22 Range/Units 06:37 06:37 06:37 WBC 8.85 (4.8-10.8) K/ul RBC 4.03 L (4.70-6.10) M/uL Hgb 11.2 L (14.0-18.0) g/dl Hct 34.6 L (42.0-52.0) % MCV 85.9 (80.0-100.0) fL MCH 27.8 (25.0-34.0) pg MCHC 32.4 (32.0-36.0) g/dL RDW Std Deviation 47.2 H (36.4-46.3) fL RDW Coeff of Jem 15.0 H (11.5-14.5) % Plt Count 214 (130-400) K/uL MPV 9.9 (9.4-12.4) fL Immature Gran % (Auto) % Neut % (Auto) % Lymph % (Auto) % Upson % (Auto) % Eos % (Auto) % Baso % (Auto) % Neut # (Auto) (1.40-6.50) K/uL Lymph # (Auto) (1.2-3.4) K/uL Upson # (Auto) (0.11-0.59) K/uL Eos # (Auto) (0-0.50) K/uL Baso # (Auto) (0-0.2) K/uL Immature Gran # (Auto) (0.01-0.20) K/uL APTT (21.0-31.0) Seconds PTT Ratio ABG pH 7.40 (7.35-7.45) ABG pCO2 52 H (35-46) mmHg ABG pO2 103 H (80-95) mmHg ABG HCO3 32 H (19-24) mmol/L ABG O2 Saturation 99.1 H (90-95) % ABG Base Excess 6.0 H (-9-1.8) mEq/L Chris Test Pos (Pos) Oxygen Given 4L Sodium 140 (136-145) mmol/L Potassium 3.9 (3.5-5.1) mmol/L Chloride 105 (98-107) mmol/L Carbon Dioxide 29 (21-32) mmol/L Anion Gap 6 (3-11) BUN 33 H (6-23) mg/dl Creatinine 0.89 (0.6-1.4) mg/dl Est Cr Clr Drug Dosing 89.2 ml/min Est GFR ( Amer) 101.1 ml/min Est GFR (Non-Af Amer) 87.2 ml/min BUN/Creatinine Ratio 37.1 H (10-20) Glucose 88 (70-99(Fasting)) mg/dl Calcium 8.9 (8.6-10.3) mg/dl Magnesium 2.1 (1.7-2.4) mg/dl 06/21/22 06/21/22 06/21/22 Range/Units 08:01 08:01 08:01 WBC 11.31 H (4.8-10.8) K/ul RBC 4.46 L (4.70-6.10) M/uL Hgb 12.3 L (14.0-18.0) g/dl Hct 39.2 L (42.0-52.0) % MCV 87.9 (80.0-100.0) fL MCH 27.6 (25.0-34.0) pg MCHC 31.4 L (32.0-36.0) g/dL RDW Std Deviation 47.8 H (36.4-46.3) fL RDW Coeff of Jem 14.8 H (11.5-14.5) % Plt Count 270 (130-400) K/uL MPV 9.7 (9.4-12.4) fL Immature Gran % (Auto) 0.5 % Neut % (Auto) 81.4 % Lymph % (Auto) 10.4 % Upson % (Auto) 7.3 % Eos % (Auto) 0.2 % Baso % (Auto) 0.2 % Neut # (Auto) 9.20 H (1.40-6.50) K/uL Lymph # (Auto) 1.18 L (1.2-3.4) K/uL Upson # (Auto) 0.83 H (0.11-0.59) K/uL Eos # (Auto) 0.02 (0-0.50) K/uL Baso # (Auto) 0.02 (0-0.2) K/uL Immature Gran # (Auto) 0.06 (0.01-0.20) K/uL APTT 24.7 (21.0-31.0) Seconds PTT Ratio 0.9 ABG pH (7.35-7.45) ABG pCO2 (35-46) mmHg ABG pO2 (80-95) mmHg ABG HCO3 (19-24) mmol/L ABG O2 Saturation (90-95) % ABG Base Excess (-9-1.8) mEq/L Chris Test (Pos) Oxygen Given Sodium 140 (136-145) mmol/L Potassium 4.0 (3.5-5.1) mmol/L Chloride 102 (98-107) mmol/L Carbon Dioxide 31 (21-32) mmol/L Anion Gap 7 (3-11) BUN 29 H (6-23) mg/dl Creatinine 1.04 (0.6-1.4) mg/dl Est Cr Clr Drug Dosing 76.4 ml/min Est GFR ( Amer) 84.5 ml/min Est GFR (Non-Af Amer) 72.9 ml/min BUN/Creatinine Ratio 27.9 H (10-20) Glucose 106 H (70-99(Fasting)) mg/dl Calcium 9.6 (8.6-10.3) mg/dl Magnesium (1.7-2.4) mg/dl PG Care Time/CCT Total # of Minutes Spent Total Time Spent with Patient: Total time spent is greater than 50% in coordination of care (as documented) at patient's floor/unit and/or counseling patient: Coding Level of Care Code 68111 SUB INP/OBS CARE MIN Diagnoses Acute exacerbation of chronic obstructive pulmonary disease J44.1 Essential hypertension I10 Essential hypertriglyceridemia E78.1 Tremor R25.1 Urinary retention R33.9 Anemia D64.9 Anemia type: unspecified type Superior mesenteric artery aneurysm I72.8 Inguinal hernia bilateral, non-recurrent K40.20 (6) Anemia Anemia type: unspecified type Qualified Code(s): D64.9 - Anemia, unspecified
--- NOTE | 2022-06-22 09:07 | Pulmonology Progress Note ---
Date of Service June 22, 2022 Assessment & Plan (1) Pulmonary emphysema: (2) Acute exacerbation of chronic obstructive pulmonary disease (COPD): (3) Chronic respiratory failure with hypoxia: (4) Respiratory failure with hypoxia and hypercapnia: (5) COPD, severe: Plan CT chest 09/20/2021 personally reviewed: Centrilobular and paraseptal emphysema appreciated bilaterally No mediastinal lymphadenopathy Chest x-ray 06/20/2022 personally reviewed: Portable film, bilateral costophrenic and cardiophrenic recycling, no clear lung infiltrate appreciated VBG 06/20/2022: 7.36/60/27 -- Acute on chronic chronic hypercapnic hypoxic respiratory failure Likely she can Huan to COPD exacerbation Patient failed AVAPS machine in the past. SARS NAAT negative Procalcitonin negative --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 Patient is unfortunately not able to afford Incruse and he uses it whenever he can afford it Patient has failed azithromycin as well as Daliresp as an outpatient Continue with triple therapy while in the hospital. -- Obesity Advised to lose with diet and exercise Plan: Continue with Solu-Medrol 40 mg. We will give another 40 mg dose tonight. Continue with hypertonic saline and Mucinex along with flutter valve Complete 5 days of azithromycin Patient is little bit confused when it comes to the DuoNebs nebulizers at home. History of use nebulizers and albuterol on an as-needed basis. Nebulizers can be used up to 3 times a day Follow sputum culture Case was discussed with RN at bedside Please note the above document was generated using voice recognition software. It may contain grammatical, syntax or spelling errors.Any formal questions or concerns about the content, text or information contained within the body of this dictation should be directly addressed to the provider for clarification. Admission and Anticipated Discharge Date Admission Date: June 20, 2022 Subjective Patient seen and examined at bedside. No acute distress, no adverse events overnight He says he is feeling better since coming to the hospital Has been using flutter valve and bringing up phlegm. No nausea, no vomiting. Fair appetite He was saturating 96% on 4 L, I went down to 3 L. No headache, no blurry vision Review of Systems Review of Systems: All systems reviewed & are unremarkable except as noted in Subjective Physical Exam Physical Exam: Constitutional: No acute distress HEENT: EOMI, PERRLA Respiratory system: Decreased air entry bilaterally, no rhonchi, positive expiratory wheeze, positive mild crackles bilateral lower lobes CVS: S1-S2 positive, no murmurs or gallops Abdomen: Soft, nontender, nondistended, positive bowel sounds x4 Extremities: +2 pulses bilaterally radialis/ dorsalis pedis, no cyanosis, no edema Neuro: Awake alert oriented x3 Psych: Normal mood and affect G/U: No Farrell Skin: no rashes, warm and dry Lymphatic: no cervical or axillary lymphadenopathy Results & Data Results & Data Vital Signs (Past 12 Hours) Vital Signs Temp Pulse Resp BP Pulse Ox O2 Del Method O2 Flow Rate 06/22/22 07:45 36.5 C 77 20 115/69 99 Nasal Cannula 4 06/22/22 07:07 64 18 98 Nasal Cannula 4 06/22/22 03:07 69 18 96 Nasal Cannula 4 06/21/22 23:07 91 H 98 Nasal Cannula 4 06/21/22 22:00 36.8 C 88 20 115/72 98 Nasal Cannula 4 06/21/22 22:41 36.6 C 85 20 121/74 98 Nasal Cannula 4 Laboratory Results 06/22/22 06:37 06/22/22 06:37 PG Care Time/CCT Total # of Minutes Spent Total Time Spent with Patient: Total time spent is greater than 50% in coordination of care (as documented) at patient's floor/unit and/or counseling patient: Coding Level of Care Code 40840 SUB INP/OBS CARE 3/50MIN Diagnoses Pulmonary emphysema J43.9 Acute exacerbation of chronic obstructive pulmonary disease (COPD) J44.1 Chronic respiratory failure with hypoxia J96.11 Respiratory failure with hypoxia and hypercapnia J96.91; J96.92 COPD, severe J44.9
[2022-06-22] MEDS: guaiFENesin 600 MG TABCR PO SCH ×2 (09:10→20:25)
[2022-06-22] MEDS: FERROUS SULFATE 325 MG TAB PO SCH (09:10)
[2022-06-22] MEDS: MAGNESIUM OXIDE 400 MG TAB PO SCH (09:10)
[2022-06-22] MEDS: MULTIVITAMIN TAB PO SCH (09:10)
[2022-06-22] MEDS: ATORVASTATIN 40 MG TAB PO SCH (09:10)
[2022-06-22] MEDS: METOPROLOL SUCC 50MG EXT REL TAB PO SCH (09:10)
[2022-06-22] MEDS: AZITHROMYCIN 250 MG TAB PO SCH (09:10)
[2022-06-22] MEDS: FLUTICASONE/VILANTEROL 200/25MCG 14 PUFFS/INHALER INH SCH (09:14)
[2022-06-22] MEDS: ENOXAPARIN INJ 40 MG/0.4 ML SYR SQ SCH (09:15)
[2022-06-22] MEDS: methylPREDNISolone 40 MG in SYRINGE 0 ML IV SCH (09:17)
[2022-06-22] MEDS: PREGABALIN 100 MG CAP PO SCH ×2 (09:22→20:28)
[2022-06-22] MEDS ORDERED: methylPREDNISolone 40 MG in SYRINGE 0 ML IV ONE (18:00)
[2022-06-22] MEDS: CYANOCOBALAMIN (B-12) 500 MCG TABLET PO SCH (20:25)
[2022-06-22] MEDS: UMECLIDINIUM BROMIDE 62.5MCG/BLISTER 7 PUFFS/INHALER INH SCH (20:26)
[2022-06-23] MEDS: ALBUT/IPRATROP 3MG/0.5MG NEB 3 ML VIAL NEB SCH ×6 (03:01→22:45)
[2022-06-23] MEDS: SODIUM CHLOR 7% 4 ML NEB NEB SCH ×2 (07:02→18:56)
[2022-06-23] MEDS: methylPREDNISolone 40 MG in SYRINGE 0 ML IV SCH (07:43)
[2022-06-23] MEDS: guaiFENesin 600 MG TABCR PO SCH ×2 (07:43→20:23)
[2022-06-23] MEDS: FERROUS SULFATE 325 MG TAB PO SCH (07:44)
[2022-06-23] MEDS: MULTIVITAMIN TAB PO SCH (07:44)
[2022-06-23] MEDS: FLUTICASONE/VILANTEROL 200/25MCG 14 PUFFS/INHALER INH SCH (07:44)
[2022-06-23] MEDS: AZITHROMYCIN 250 MG TAB PO SCH (07:44)
[2022-06-23] MEDS: MAGNESIUM OXIDE 400 MG TAB PO SCH (07:44)
[2022-06-23] MEDS: FUROSEMIDE 20 MG TAB PO SCH (07:44)
[2022-06-23] MEDS: ENOXAPARIN INJ 40 MG/0.4 ML SYR SQ SCH (07:45)
[2022-06-23] MEDS: ATORVASTATIN 40 MG TAB PO SCH (07:45)
[2022-06-23] MEDS: METOPROLOL SUCC 50MG EXT REL TAB PO SCH (07:45)
[2022-06-23 07:59] LABS: Hematocrit (blood only) 36.8 % (42.0-52.0); Hemoglobin 11.7 g/dl (14.0-18.0); Mean Corpuscular Hemoglobin 28.1 pg (25.0-34.0); Mean Corpuscular Hgb Conc 31.8 g/dL (32.0-36.0); Mean Corpuscular Volume 88.2 fL (80.0-100.0); Mean Platelet Volume 9.8 fL (9.4-12.4); Platelet Count 239 K/uL (130-400); RDW Coefficient of Variation 14.6 % (11.5-14.5); RDW Standard Deviation 47.3 fL (36.4-46.3); Red Blood Count 4.17 M/uL (4.70-6.10); White Blood Count 10.51 K/ul (4.8-10.8)
--- NOTE | 2022-06-23 07:59 | Hospitalist Progress Note ---
Date of Service June 23, 2022 Assessment & Plan (1) Acute exacerbation of chronic obstructive pulmonary disease: Plan: Acute on chronic COPD, on 4 L home oxygen. Increased wheezing, shortness of breath, oxygen requirement up to 5 L, increased production of some creamy white sputum for 2 days. No fever/chills/sweats No leukocytosis, procalcitonin is negative, BNP is normal, high-sensitivity troponin 3.4 without chest pain Not on prednisone for several months, denied significant change on low dose prednisone Previously failed nighttime AVAPS, Darilesp, azithromycin Echo 09/21/2021: EF 65-70%, no regional wall motion abnormalities, no significant change from 2020. Grade 1 diastolic dysfunction Prior tobacco/alcohol use; No recent use in prior 4 years Procal negative Continue Advair and Incruse/formulary equivalent. -- to be on advair BID, incruse at night, albuterol neb Q4hr 06/23 Sputum cx remains mod normal alejandro, final report to follow -- monitor. Currently on Azithro x 5 days Methylprednisolone 40mg IV daily per pulmonary -- did get dose 40mg IV last evening consider slower taper steroids at d/c Titrate O2 to maintain sats -- 3L currently. Reports uses 5L w/ ambulation. Can repeat ambulatory pulse ox prior to d/c Continued inpatient stay, possible d/c tomorrow vs Sunday Will need rx for Hypertonic saline/nebs (2) Essential hypertension: Plan: Continue metoprolol, Lasix every other day. No history of heart failure; last echo 08/2021 with normal EF, no wall motion abnormalities, grade 1 diastolic dysfunction BNP normal on admit, however weights are up in the system Maintain good BP control w/ diastolic dysfunction -- currently 127/72 (3) Essential hypertriglyceridemia: Plan: Continue statin (4) Tremor: Plan: Mild resting tremor in hands, no change - anxious. ?from steroids, none witnessed at present No evidence of strokelike deficits (5) Urinary retention: Plan: No symptoms per patient, does not take medication at this time. Bladder scan as needed, if retaining start Flomax and cath as needed for PVR greater than 350 2nd to hernias -- monitor Reporting no issues w/ him manipulating hernias and standing to urinate at p resent (6) Anemia: Plan: Hemoglobin 12.4 on admission, no signs of bleeding. Stools can be dark with iron Continue iron repletion, B12. Iron changed from twice daily to daily due to absorption limitation and contribution to constipation Of note, prior iron level ELEVATED in 2021--> will d/c PO supplementation Hgb stable and monitor (7) Superior mesenteric artery aneurysm: Plan: Patient aware, following as outpatient. No acute management at this time (8) Inguinal hernia bilateral, non-recurrent: Plan: Patient with known r bilateral inguinal hernia containing portions of urinary bladder, multiple bowel loops without obstruction/inflammation. At bedside has not changed, no acute tenderness/warmth/swelling. Additional scrotal swelling is noted Patient is following with [facility] and is pending operative repair 07/18. Patient is aware that he is increased risk due to his severe COPD with chronic respiratory failure. No acute management indicated at time of assessment Patient is not having any lower urinary tract symptoms, can bladder scan if concern for postvoid residual/obstructive uropathy due to pressure effect Alerted of red flag signs which would warrant surgery consultation sooner -- no evidence for incarceration/strangulation at present Plan DVT prophylaxis: Lovenox for DVT prophylaxis Changed to full admit Continued inpatient stay Admission and Anticipated Discharge Date Admission Date: June 22, 2022 Supervising Physician Co-Signing Physician Notes The patient was not seen by me. The chart was reviewed. Case discussed with TISHA Dawkins. Agree with assessment and plan Subjective eval this morning, doing well, continues to clear sputum w/ breathing treatments seen by pulm and turned to 3L NC, saturating well. states improving every day compared to prior but not ready for d/c. discussed continued monitoring/steroids, titrate O2. He would like the hypertonic saline and nebs rx for dc and states he is now aware not to take too often as there is no benefit to increasing above recommended schedule. No fever/chills, chest pain. Chronic R rotator cuff discomfort but not bothering him at present. questions/concerns addressed at this time. Physical Exam Physical Exam: General: chronically ill appearing male resting in bed, appears more comfortable, less coughing, NAD HEENT: pupils equal/reactive, head normocephalic, mmm Resp: reduced upper airway congestion, significantly reduced end expiratory wheezing, bibasilar crackles, on 3L NC CV: RRR, no significant m/r/g, trace LE edema, no calf tenderness GI: +BS, soft/NT : LARGE B/L INGUINAL HERNIAS, SCROTAL EDEMA, hernias REDUCIBLE (but recur right away) NONTENDER MSK/Neuro: moves all extremities, no focal deficits Psych: AOx3, cooperative but anxious at times Results & Data Results & Data Vital Signs (Past 12 Hours) Vital Signs Temp Pulse Resp BP Pulse Ox O2 Del Method O2 Flow Rate 06/23/22 07:04 74 18 97 Nasal Cannula 4 06/23/22 03:01 72 18 97 Nasal Cannula 4 06/22/22 23:09 87 18 97 Nasal Cannula 4 06/22/22 22:50 37 C 82 18 130/87 93 Nasal Cannula 3.5 06/22/22 21:00 Nasal Cannula 4 Laboratory Results 06/23/22 06/23/22 Range/Units 07:22 07:22 WBC 10.51 (4.8-10.8) K/ul RBC 4.17 L (4.70-6.10) M/uL Hgb 11.7 L (14.0-18.0) g/dl Hct 36.8 L (42.0-52.0) % MCV 88.2 (80.0-100.0) fL MCH 28.1 (25.0-34.0) pg MCHC 31.8 L (32.0-36.0) g/dL RDW Std Deviation 47.3 H (36.4-46.3) fL RDW Coeff of Jem 14.6 H (11.5-14.5) % Plt Count 239 (130-400) K/uL MPV 9.8 (9.4-12.4) fL Sodium 140 (136-145) mmol/L Potassium 4.0 (3.5-5.1) mmol/L Chloride 103 (98-107) mmol/L Carbon Dioxide 34 H (21-32) mmol/L Anion Gap 3 (3-11) BUN 27 H (6-23) mg/dl Creatinine 0.83 (0.6-1.4) mg/dl Est Cr Clr Drug Dosing 95.7 ml/min Est GFR ( Amer) 104.1 ml/min Est GFR (Non-Af Amer) 89.8 ml/min BUN/Creatinine Ratio 32.5 H (10-20) Glucose 104 H (70-99(Fasting)) mg/dl Calcium 9.3 (8.6-10.3) mg/dl Magnesium 2.2 (1.7-2.4) mg/dl PG Care Time/CCT Total # of Minutes Spent Total Time Spent with Patient: Total time spent is greater than 50% in coordination of care (as documented) at patient's floor/unit and/or counseling patient: Coding Level of Care Code 88577 SUB INP/OBS CARE 2/35MIN Diagnoses Acute exacerbation of chronic obstructive pulmonary disease J44.1 Essential hypertension I10 Essential hypertriglyceridemia E78.1 Tremor R25.1 Urinary retention R33.9 Anemia D64.9 Anemia type: unspecified type Superior mesenteric artery aneurysm I72.8 Inguinal hernia bilateral, non-recurrent K40.20 (6) Anemia Anemia type: unspecified type Qualified Code(s): D64.9 - Anemia, unspecified
--- NOTE | 2022-06-23 08:07 | Pulmonology Progress Note ---
Date of Service June 23, 2022 Assessment & Plan (1) Pulmonary emphysema: (2) Acute exacerbation of chronic obstructive pulmonary disease (COPD): (3) Chronic respiratory failure with hypoxia: (4) Respiratory failure with hypoxia and hypercapnia: (5) COPD, severe: Plan CT chest 09/20/2021 personally reviewed: Centrilobular and paraseptal emphysema appreciated bilaterally No mediastinal lymphadenopathy Chest x-ray 06/20/2022 personally reviewed: Portable film, bilateral costophrenic and cardiophrenic recycling, no clear lung infiltrate appreciated VBG 06/20/2022: 7.36/60/27 -- Acute on chronic chronic hypercapnic hypoxic respiratory failure Likely secondary to COPD exacerbation Patient was not able to tolerate AVAPS at home SARS NAAT negative Procalcitonin negative --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 Patient is unfortunately not able to afford Incruse and he uses it whenever he can afford it Patient has failed azithromycin as well as Daliresp as an outpatient Continue with triple therapy while in the hospital. Patient is little bit confused when it comes to the DuoNebs nebulizers at home. DuoNeb nebulizers and albuterol should be used on an as-needed basis. Nebul izers can be used up to 3 times a day -- Obesity Advised to lose with diet and exercise Plan: Chest x-ray from today does not show any significant change compared to the time of presentation. Continue with hypertonic saline and Mucinex along with flutter valve. We will give a trial of nebulized Mucomyst to see if he tolerates it given that he is still complaining of phlegm unable to bring it up Complete 5 days of azithromycin Continue with Solu-Medrol 40 mg. Give another 40 mg dose tonight Sputum culture negative to date Case was discussed with RT Please note the above document was generated using voice recognition software. It may contain grammatical, syntax or spelling errors.Any formal questions or concerns about the content, text or information contained within the body of this dictation should be directly addressed to the provider for clarification. Admission and Anticipated Discharge Date Admission Date: June 22, 2022 Subjective Patient seen and examined at bedside. No acute distress, no adverse events overnight Was saturating 97% on 4 L I went down to 3 L nasal cannula Still complaining of cough. It does come up with the help of flutter valve but still complains of significant congestion. No nausea vomiting, fair appetite No headache, no blurry vision Review of Systems Review of Systems: All systems reviewed & are unremarkable except as noted in Subjective Physical Exam Physical Exam: Constitutional: No acute distress HEENT: EOMI, PERRLA Respiratory system: Decreased air entry bilaterally, no rhonchi, positive expiratory wheeze, minimal crackles bilateral lower lobes CVS: S1-S2 positive, no murmurs or gallops Abdomen: Soft, nontender, nondistended, positive bowel sounds x4 Extremities: +2 pulses bilaterally radialis/ dorsalis pedis, no cyanosis, no edema Neuro: Awake alert oriented x3 Psych: Normal mood and affect G/U: No Farrell Skin: no rashes, warm and dry Lymphatic: no cervical or axillary lymphadenopathy Results & Data Results & Data Vital Signs (Past 12 Hours) Vital Signs Temp Pulse Resp BP Pulse Ox O2 Del Method O2 Flow Rate 06/23/22 07:04 74 18 97 Nasal Cannula 4 06/23/22 03:01 72 18 97 Nasal Cannula 4 06/22/22 23:09 87 18 97 Nasal Cannula 4 06/22/22 22:50 37 C 82 18 130/87 93 Nasal Cannula 3.5 06/22/22 21:00 Nasal Cannula 4 Laboratory Results 06/23/22 07:22 PG Care Time/CCT Total # of Minutes Spent Total Time Spent with Patient: Total time spent is greater than 50% in coordination of care (as documented) at patient's floor/unit and/or counseling patient: Coding Level of Care Code 67288 SUB INP/OBS CARE 2/35MIN Diagnoses Pulmonary emphysema J43.9 Acute exacerbation of chronic obstructive pulmonary disease (COPD) J44.1 Chronic respiratory failure with hypoxia J96.11 Respiratory failure with hypoxia and hypercapnia J96.91; J96.92 COPD, severe J44.9
[2022-06-23 08:09] LABS: BUN Creatinine Ratio 32.5 (10-20); Calcium 9.3 mg/dl (8.6-10.3); Creatinine Clr Calc Pharmacy 95.7 ml/min; Est GFR (African American) 104.1 ml/min; Est GFR (Non-African American) 89.8 ml/min; Magnesium 2.2 mg/dl (1.7-2.4)
[2022-06-23] MEDS: PREGABALIN 100 MG CAP PO SCH ×2 (08:38→20:23)
--- NOTE | 2022-06-23 09:27 | XRay Report ---
XR chest 1V portable CLINICAL HISTORY: f/u COMPARISON STUDY: Chest CT September 20, 2021. Chest radiograph June 20, 2022. FINDINGS: No pneumothorax or pleural effusion is present. Minimal left basilar opacity favors atelect asis. Underlying emphysema is better depicted on prior chest CT. Slight interstitial prominence is no ptee. No evidence for overt pulmonary edema. Cardiomediastinal silhouette is stable. IMPRESSION: No acute cardiopulmonary findings. No significant change in appearance of the chest. ACT 112: Negative or not required by law. Electronically signed by: Chaitanya Srivastava M.D. 06/23/2022 9:25 AM
[2022-06-23] MEDS: ACETYLCYSTEINE 20% INHAL SOLN 4ML ***DISPENSED BY RESP. INH SCH ×2 (10:33→22:45)
[2022-06-23] MEDS ORDERED: methylPREDNISolone 40 MG in SYRINGE 0 ML IV ONE (18:00)
[2022-06-23] MEDS: CYANOCOBALAMIN (B-12) 500 MCG TABLET PO SCH (20:23)
[2022-06-23] MEDS: UMECLIDINIUM BROMIDE 62.5MCG/BLISTER 7 PUFFS/INHALER INH SCH (20:23)
[2022-06-24] MEDS: ALBUT/IPRATROP 3MG/0.5MG NEB 3 ML VIAL NEB SCH ×6 (02:30→22:45)
[2022-06-24] MEDS: SODIUM CHLOR 7% 4 ML NEB NEB SCH ×2 (07:08→19:16)
--- NOTE | 2022-06-24 07:43 | Hospitalist Progress Note ---
Date of Service June 24, 2022 Assessment & Plan (1) Acute exacerbation of chronic obstructive pulmonary disease: Plan: Acute on chronic COPD, on 4 L home oxygen. Increased wheezing, shortness of breath, oxygen requirement up to 5 L, increased production of some creamy white sputum for 2 days. No fever/chills/sweats No leukocytosis, procalcitonin is negative, BNP is normal, high-sensitivity troponin 3.4 without chest pain Not on prednisone for several months, denied significant change on low dose prednisone Previously failed nighttime AVAPS, Darilesp, azithromycin Echo 09/21/2021: EF 65-70%, no regional wall motion abnormalities, no significant change from 2020. Grade 1 diastolic dysfunction Prior tobacco/alcohol use; No recent use in prior 4 years Procal negative Continue Advair and Incruse/formulary equivalent. -- to be on advair BID, incruse at night, albuterol neb Q4hr 06/24 Sputum cx moderate normal alejandro, FINAL Currently on Azithro x 5 days (day 07/05) Methylprednisolone 40mg IV daily per pulmonary -- did get extra dose 40mg IV PM 06/22, repeated 06/23-- transitioning to prednisone 40mg QAM for tomorrow x 4 days, then plan to decrease to 20mg x 4 days then stop at d/c Continue hypertonic saline, mucinex, pulm +mucomyst 06/23 and continues Titrate O2 to maintain sats -- able to get to 3L yesterday at rest (reported 5L w/ ambulation) -- can check ambulatory pulse ox prior to d/c Will need rx for hypertonic/nebs at d/c (he also req duoneb rx refill) (2) Essential hypertension: Plan: Continue metoprolol, Lasix every other day. No history of heart failure; last echo 08/2021 with normal EF, no wall motion abnormalities, grade 1 diastolic dysfunction BNP normal on admit, however weights are up in the system but no LE edema/effusion on CXR Maintain good BP control w/ diastolic dysfunction -- currently 128/77 (3) Essential hypertriglyceridemia: Plan: Continue statin (4) Tremor: Plan: Mild resting tremor in hands, no change - anxious at times ?from steroids vs chronic resp failure/O2 use/over oxygenation, none witnessed at present No evidence of strokelike deficits (5) Urinary retention: Plan: No symptoms per patient, does not take medication at this time. Bladder scan as needed, if retaining start Flomax and cath as needed for PVR greater than 350 2nd to hernias -- monitor Reporting no issues w/ him manipulating hernias and standing to urinate at present (6) Anemia: Plan: Hemoglobin 12.4 on admission, no signs of bleeding. Stools can be dark with iron Continue iron repletion, B12. Iron changed from twice daily to daily due to absorption limitation and contribution to constipation Of note, prior iron level ELEVATED in 2021--> DISCONTINUED PO SUPPLEMENTATION Hgb stable and monitor (7) Superior mesenteric artery aneurysm: Plan: Patient aware, following as outpatient. No acute management at this time (8) Inguinal hernia bilateral, non-recurrent: Plan: Patient with known r bilateral inguinal hernia containing portions of urinary bladder, multiple bowel loops without obstruction/inflammation. At bedside has not changed, no acute tenderness/warmth/swelling. Additional scrotal swelling is noted Patient is following with [facility] and is pending operative repair 07/18. Patient is aware that he is increased risk due to his severe COPD with chronic respiratory failure. No acute management indicated at time of assessment Patient is not having any lower urinary tract symptoms, can bladder scan if concern for postvoid residual/obstructive uropathy due to pressure effect Alerted of red flag signs which would warrant surgery consultation sooner -- no evidence for incarceration/strangulation at present Plan DVT prophylaxis: Lovenox for DVT prophylaxis Changed to full admit Continued inpatient stay, possible d/c tomorrow? Admission and Anticipated Discharge Date Admission Date: June 22, 2022 Supervising Physician Co-Signing Physician Notes The patient was not seen by me. The chart was reviewed. Case discussed with TISHA Dawkins. Agree with assessment and plan Subjective eval this morning, continued improvement but seen by pulmonary and still not quite there. Discussed further titration of oxygen, he states he knows the 4L at rest isn't doing anything for him. Will attempt titrating further this afternoon . Mucomyst added last night, he states he got 2 doses and that it smells but that he doesn't care and he has had improvement in sputum production/clearance. No fever/chills, chest pain. No abdominal pain, nausea or vomiting. Possible dc tomorrow Questions/concerns addressed at this time. Physical Exam Physical Exam: General: chronically ill appearing male resting in bed, appears more comfortable, less coughing, NAD HEENT: pupils equal/reactive, head normocephalic, mmm Resp: reduced upper airway congestion, significantly reduced end expiratory wheezing, minimal,+bibasilar crackles, on 3L NC SpO2 98% (discussed titrating down as able) CV: RRR, no significant m/r/g, trace LE edema, no calf tenderness GI: +BS, soft/NT : LARGE B/L INGUINAL HERNIAS, SCROTAL EDEMA, hernias REDUCIBLE (but recur right away) NONTENDER MSK/Neuro: moves all extremities, no focal deficits Psych: AOx3, cooperative but anxious at times Results & Data Results & Data Vital Signs (Past 12 Hours) Vital Signs Temp Pulse Resp BP Pulse Ox O2 Del Method O2 Flow Rate 06/24/22 07:09 72 18 98 Nasal Cannula 3.5 06/23/22 19:57 Nasal Cannula 3.5 06/23/22 22:45 84 16 98 06/23/22 20:00 36.7 C 85 20 137/84 95 Room Air Laboratory Results 06/23/22 06/23/22 Range/Units 07:22 07:22 WBC 10.51 (4.8-10.8) K/ul RBC 4.17 L (4.70-6.10) M/uL Hgb 11.7 L (14.0-18.0) g/dl Hct 36.8 L (42.0-52.0) % MCV 88.2 (80.0-100.0) fL MCH 28.1 (25.0-34.0) pg MCHC 31.8 L (32.0-36.0) g/dL RDW Std Deviation 47.3 H (36.4-46.3) fL RDW Coeff of Jem 14.6 H (11.5-14.5) % Plt Count 239 (130-400) K/uL MPV 9.8 (9.4-12.4) fL Sodium 140 (136-145) mmol/L Potassium 4.0 (3.5-5.1) mmol/L Chloride 103 (98-107) mmol/L Carbon Dioxide 34 H (21-32) mmol/L Anion Gap 3 (3-11) BUN 27 H (6-23) mg/dl Creatinine 0.83 (0.6-1.4) mg/dl Est Cr Clr Drug Dosing 95.7 ml/min Est GFR ( Amer) 104.1 ml/min Est GFR (Non-Af Amer) 89.8 ml/min BUN/Creatinine Ratio 32.5 H (10-20) Glucose 104 H (70-99(Fasting)) mg/dl Calcium 9.3 (8.6-10.3) mg/dl Magnesium 2.2 (1.7-2.4) mg/dl PG Care Time/CCT Total # of Minutes Spent Total Time Spent with Patient: Total time spent is greater than 50% in coordination of care (as documented) at patient's floor/unit and/or counseling patient: Coding Level of Care Code 65686 SUB INP/OBS CARE 3/50MIN Diagnoses Acute exacerbation of chronic obstructive pulmonary disease J44.1 Essential hypertension I10 Essential hypertriglyceridemia E78.1 Tremor R25.1 Urinary retention R33.9 Anemia D64.9 Anemia type: unspecified type Superior mesenteric artery aneurysm I72.8 Inguinal hernia bilateral, non-recurrent K40.20 (6) Anemia Anemia type: unspecified type Qualified Code(s): D64.9 - Anemia, unspecified
--- NOTE | 2022-06-24 08:26 | Pulmonology Progress Note ---
Date of Service June 24, 2022 Assessment & Plan (1) Pulmonary emphysema: (2) Acute exacerbation of chronic obstructive pulmonary disease (COPD): (3) Chronic respiratory failure with hypoxia: (4) Respiratory failure with hypoxia and hypercapnia: (5) COPD, severe: Plan CT chest 09/20/2021 personally reviewed: Centrilobular and paraseptal emphysema appreciated bilaterally No mediastinal lymphadenopathy Chest x-ray 06/20/2022 personally reviewed: Portable film, bilateral costophrenic and cardiophrenic recycling, no clear lung infiltrate appreciated VBG 06/20/2022: 7.36/60/27 -- Acute on chronic chronic hypercapnic hypoxic respiratory failure Likely secondary to COPD exacerbation Patient was not able to tolerate AVAPS at home SARS NAAT negative Procalcitonin negative --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 Patient is unfortunately not able to afford Incruse and he uses it whenever he can afford it Patient has failed azithromycin as well as Daliresp as an outpatient Continue with triple therapy while in the hospital. Patient is little bit confused when it comes to the DuoNebs nebulizers at home. DuoNeb nebulizers and albuterol should be used on an as-needed basis. Nebul izers can be used up to 4 times a day -- Obesity Advised to lose with diet and exercise Plan: Chest x-ray from today does not show any significant change compared to the time of presentation. Continue with hypertonic saline and Mucinex along with flutter valve. Patient tolerated Mucomyst, continue with it Completed 5 days of azithromycin Can transition to p.o. prednisone 40 mg for 4 days followed by 20 mg for 4 and then stop Sputum culture negative to date Please note the above document was generated using voice recognition software. It may contain grammatical, syntax or spelling errors.Any formal questions or concerns about the content, text or information contained within the body of this dictation should be directly addressed to the provider for clarification. Admission and Anticipated Discharge Date Admission Date: June 22, 2022 Subjective Patient seen and examined at bedside. No acute distress, no adverse events overnight. Overall he is feeling better compared to before Still complaining of cough and bringing up clear phlegm. No hemoptysis Denies any chest pain, no chest tightness No nausea or vomiting, fair appetite Review of Systems Review of Systems: All systems reviewed & are unremarkable except as noted in Subjective Physical Exam Physical Exam: Constitutional: No acute distress HEENT: EOMI, PERRLA Respiratory system: Decreased air entry bilaterally, no rhonchi, minimal expiratory wheeze, positive crackles bilateral lower lobes CVS: S1-S2 positive, no murmurs or gallops Abdomen: Soft, nontender, nondistended, positive bowel sounds x4 Extremities: +2 pulses bilaterally radialis/ dorsalis pedis, no cyanosis, no edema Neuro: Awake alert oriented x3 Psych: Normal mood and affect G/U: No Farrell Skin: no rashes, warm and dry Lymphatic: no cervical or axillary lymphadenopathy Results & Data Results & Data Vital Signs (Past 12 Hours) Vital Signs Temp Pulse Resp BP Pulse Ox O2 Del Method O2 Flow Rate 06/24/22 08:04 Nasal Cannula 3.25 06/24/22 08:00 36.6 C 78 18 105/64 100 Nasal Cannula 3.5 06/24/22 07:09 72 18 98 Nasal Cannula 3.5 06/23/22 22:45 84 16 98 Laboratory Results 06/23/22 07:22 06/23/22 07:22 PG Care Time/CCT Total # of Minutes Spent Total Time Spent with Patient: Total time spent is greater than 50% in coordination of care (as documented) at patient's floor/unit and/or counseling patient: Coding Level of Care Code 54448 SUB INP/OBS CARE 2/35MIN Diagnoses Pulmonary emphysema J43.9 Acute exacerbation of chronic obstructive pulmonary disease (COPD) J44.1 Chronic respiratory failure with hypoxia J96.11 Respiratory failure with hypoxia and hypercapnia J96.91; J96.92 COPD, severe J44.9
[2022-06-24] MEDS: METOPROLOL SUCC 50MG EXT REL TAB PO SCH (09:10)
[2022-06-24] MEDS: ATORVASTATIN 40 MG TAB PO SCH (09:10)
[2022-06-24] MEDS: FLUTICASONE/VILANTEROL 200/25MCG 14 PUFFS/INHALER INH SCH (09:10)
[2022-06-24] MEDS: MAGNESIUM OXIDE 400 MG TAB PO SCH (09:10)
[2022-06-24] MEDS: AZITHROMYCIN 250 MG TAB PO SCH (09:10)
[2022-06-24] MEDS: MULTIVITAMIN TAB PO SCH (09:10)
[2022-06-24] MEDS: ENOXAPARIN INJ 40 MG/0.4 ML SYR SQ SCH (09:10)
[2022-06-24] MEDS: guaiFENesin 600 MG TABCR PO SCH ×2 (09:11→19:40)
[2022-06-24] MEDS: methylPREDNISolone 40 MG in SYRINGE 0 ML IV SCH (09:11)
[2022-06-24] MEDS: PREGABALIN 100 MG CAP PO SCH ×2 (09:13→19:40)
[2022-06-24] MEDS: DOCUSATE SODIUM 100 MG CAP PO PRN (09:17)
[2022-06-24] MEDS: ACETYLCYSTEINE 20% INHAL SOLN 4ML ***DISPENSED BY RESP. INH SCH ×2 (11:44→22:45)
[2022-06-24] MEDS: CYANOCOBALAMIN (B-12) 500 MCG TABLET PO SCH (19:41)
[2022-06-24] MEDS: UMECLIDINIUM BROMIDE 62.5MCG/BLISTER 7 PUFFS/INHALER INH SCH (19:41)
[2022-06-25] MEDS: ALBUT/IPRATROP 3MG/0.5MG NEB 3 ML VIAL NEB SCH ×6 (03:31→22:36)
[2022-06-25 07:21] LABS: Hematocrit (blood only) 36.4 % (42.0-52.0); Hemoglobin 11.3 g/dl (14.0-18.0); Mean Corpuscular Hemoglobin 27.8 pg (25.0-34.0); Mean Corpuscular Volume 89.4 fL (80.0-100.0); Mean Platelet Volume 9.6 fL (9.4-12.4); Platelet Count 229 K/uL (130-400); RDW Coefficient of Variation 14.7 % (11.5-14.5); RDW Standard Deviation 47.8 fL (36.4-46.3); Red Blood Count 4.07 M/uL (4.70-6.10); White Blood Count 9.43 K/ul (4.8-10.8)
--- NOTE | 2022-06-25 07:24 | Pulmonology Progress Note ---
Date of Service June 25, 2022 Assessment & Plan (1) Pulmonary emphysema: (2) Acute exacerbation of chronic obstructive pulmonary disease (COPD): (3) Chronic respiratory failure with hypoxia: (4) Respiratory failure with hypoxia and hypercapnia: (5) COPD, severe: Plan CT chest 09/20/2021 personally reviewed: Centrilobular and paraseptal emphysema appreciated bilaterally No mediastinal lymphadenopathy Chest x-ray 06/20/2022 personally reviewed: Portable film, bilateral costophrenic and cardiophrenic recycling, no clear lung infiltrate appreciated VBG 06/20/2022: 7.36/60/27 -- Acute on chronic chronic hypercapnic hypoxic respiratory failure Likely secondary to COPD exacerbation Patient was not able to tolerate AVAPS at home SARS NAAT negative Procalcitonin negative --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 Patient is unfortunately not able to afford Incruse and he uses it whenever he can afford it Patient has failed azithromycin as well as Daliresp as an outpatient Continue with triple therapy while in the hospital. Patient is little bit confused when it comes to the DuoNebs nebulizers at home. DuoNeb nebulizers and albuterol should be used on an as-needed basis. Nebul izers can be used up to 4 times a day -- Obesity Advised to lose with diet and exercise Plan: Continue with hypertonic saline and Mucinex along with flutter valve. Patient tolerated Mucomyst, continue with it while in the hospital Completed 5 days of azithromycin Prednisone 40 mg for 4 days followed by 20 mg for 4 and then stop On Discharge Duonebs as needed every 6hrs PRN, Albuterol inhaler every 4hrs PRN, Advair 1 puff BID, Incruse one puff daily. He also has budesonide nebulizer which I do not think he needs to be on. We will send him on hypertonic saline nebulized which he will take with Duonebs BID Sputum culture negative to date No further recommendation from pulmonary perspective, will sign off Please call directly with any questions Please note the above document was generated using voice recognition software. It may contain grammatical, syntax or spelling errors.Any formal questions or concerns about the content, text or information contained within the body of this dictation should be directly addressed to the provider for clarification. Admission and Anticipated Discharge Date Admission Date: June 22, 2022 Subjective Patient seen and examined at bedside. No acute distress, no adverse events overnight. Patient states he is feeling better since he came to the hospital but still complains of chest tightness. Bringing up phlegm with the help of flutter valve. Denies any headache, no nausea vomiting Fair appetite Was saturating 97% on 3 and half liters nasal cannula at rest. Review of Systems Review of Systems: All systems reviewed & are unremarkable except as noted in Subjective Physical Exam Physical Exam: Constitutional: No acute distress HEENT: EOMI, PERRLA Respiratory system: Decreased air entry bilaterally, no rhonchi, minimal expiratory wheeze, positive crackles bilateral lower lobes CVS: S1-S2 positive, no murmurs or gallops Abdomen: Soft, nontender, nondistended, positive bowel sounds x4 Extremities: +2 pulses bilaterally radialis/ dorsalis pedis, no cyanosis, no edema Neuro: Awake alert oriented x3 Psych: Normal mood and affect G/U: No Farrell Skin: no rashes, warm and dry Lymphatic: no cervical or axillary lymphadenopathy Results & Data Results & Data Vital Signs (Past 12 Hours) Vital Signs Temp Pulse Resp BP Pulse Ox O2 Del Method O2 Flow Rate 06/25/22 03:31 70 16 97 Nasal Cannula 3.5 06/24/22 22:45 91 H 22 97 Nasal Cannula 3.5 06/24/22 20:35 36.7 C 89 20 112/78 97 Room Air 06/24/22 19:47 3.5 Laboratory Results 06/25/22 06:43 PG Care Time/CCT Total # of Minutes Spent Total Time Spent with Patient: Total time spent is greater than 50% in coordination of care (as documented) at patient's floor/unit and/or counseling patient: Coding Level of Care Code 40380 SUB INP/OBS CARE 2/35MIN Diagnoses Pulmonary emphysema J43.9 Acute exacerbation of chronic obstructive pulmonary disease (COPD) J44.1 Chronic respiratory failure with hypoxia J96.11 Respiratory failure with hypoxia and hypercapnia J96.91; J96.92 COPD, severe J44.9
[2022-06-25] MEDS: SODIUM CHLOR 7% 4 ML NEB NEB SCH ×2 (07:29→20:17)
[2022-06-25 07:36] LABS: BUN Creatinine Ratio 31.2 (10-20); Creatinine Clr Calc Pharmacy 85.4 ml/min; Est GFR (African American) 96.7 ml/min; Est GFR (Non-African American) 83.5 ml/min; Potassium 4.1 mmol/L (3.5-5.1)
--- NOTE | 2022-06-25 07:51 | Hospitalist Progress Note ---
Date of Service June 25, 2022 Assessment & Plan (1) Acute exacerbation of chronic obstructive pulmonary disease: Plan: Acute on chronic COPD, on 4 L home oxygen. Increased wheezing, shortness of breath, oxygen requirement up to 5 L, increased production of some creamy white sputum for 2 days. No fever/chills/sweats No leukocytosis, procalcitonin is negative, BNP is normal, high-sensitivity troponin 3.4 without chest pain Not on prednisone for several months, denied significant change on low dose prednisone Previously failed nighttime AVAPS, Darilesp, azithromycin Echo 09/21/2021: EF 65-70%, no regional wall motion abnormalities, no significant change from 2020. Grade 1 diastolic dysfunction Prior tobacco/alcohol use; No recent use in prior 4 years Procal negative Continue Advair and Incruse/formulary equivalent. -- to be on advair BID, incruse at night, albuterol neb Q4hr Sputum cx moderate normal alejandro, FINAL Completed Azithromycin x 5 days Switched to prednisone 40mg PO today -- plan x 4 days, then decrease to 20mg x 4 days then stop Continue hypertonic saline, mucinex, pulm +mucomyst 06/23 (need rx) Titrate O2 to maintain sats -- 96% on 3L and agreeable to titrate further while at rest Hopeful for d/c in next 24 hours Can check ambulatory pulse ox prior to d/c (2) Essential hypertension: Plan: Continue metoprolol, Lasix every other day. No history of heart failure; last echo 08/2021 with normal EF, no wall motion abnormalities, grade 1 diastolic dysfunction BNP normal on admit, however weights are up in the system but no LE edema/effusion on CXR BP stable (3) Essential hypertriglyceridemia: Plan: Continue statin (4) Tremor: Plan: Mild resting tremor in hands, no change - anxious at times ?from steroids vs chronic resp failure/O2 use/over oxygenation, none witnessed at present No evidence of strokelike deficits (5) Urinary retention: Plan: No symptoms per patient, does not take medication at this time. Bladder scan as needed, if retaining start Flomax and cath as needed for PVR greater than 350 2nd to hernias -- monitor Reporting no issues w/ him manipulating hernias and standing to urinate at present (6) Anemia: Plan: Hemoglobin 12.4 on admission, no signs of bleeding. Stools can be dark with iron Continue iron repletion, B12. Iron changed from twice daily to daily due to absorption limitation and contribution to constipation Of note, prior iron level ELEVATED in 2021--> DISCONTINUED PO SUPPLEMENTATION Hgb stable and monitor/no bleeding (7) Superior mesenteric artery aneurysm: Plan: Patient aware, following as outpatient. No acute management at this time (8) Inguinal hernia bilateral, non-recurrent: Plan: Patient with known r bilateral inguinal hernia containing portions of urinary bladder, multiple bowel loops without obstruction/inflammation. At bedside has not changed, no acute tenderness/warmth/swelling. Additional scrotal swelling is noted Patient is following with [facility] and is pending operative repair 07/18. Patient is aware that he is increased risk due to his severe COPD with chronic respiratory failure. No acute management indicated at time of assessment Patient is not having any lower urinary tract symptoms, can bladder scan if concern for postvoid residual/obstructive uropathy due to pressure effect Alerted of red flag signs which would warrant surgery consultation sooner -- no evidence for incarceration/strangulation at present Plan DVT prophylaxis: Lovenox for DVT prophylaxis Continued inpatient stay, transitioned to prednisone Will need written instructions on nebs/timing at home and new rx for hypertonic saline and duoneb at d/c Hopefully able to d/c 06/26 Admission and Anticipated Discharge Date Admission Date: June 22, 2022 Supervising Physician Co-Signing Physician Notes The patient was not seen by me. The chart was reviewed. Case discussed with TISHA Dawkins. Agree with assessment and plan Subjective Patient eval this morning, doing well but not comfortable with going home yet. Continued sputum production, switched to prednisone today. If stable for tomorrow, discussed dc home and will provide new rx for nebulizers. He is agreeable to continue to titrate O2, stable on 3L this morning at 96%. Questions/concerns addressed at this time. Physical Exam Physical Exam: General: chronically ill appearing male resting in bed, appears more comfortable, less coughing, NAD HEENT: pupils equal/reactive, head normocephalic, mmm Resp: reduced upper airway congestion, significantly reduced end expiratory wheezing, resolving minimal,+bibasilar crackles, on 3L NC SpO2 96% (discussed titrating down as ab le) CV: RRR, no significant m/r/g, trace LE edema, no calf tenderness GI: +BS, soft/NT : LARGE B/L INGUINAL HERNIAS, SCROTAL EDEMA, hernias REDUCIBLE (but recur right away) NONTENDER MSK/Neuro: moves all extremities, no focal deficits Psych: AOx3, cooperative but anxious at times Results & Data Results & Data Vital Signs (Past 12 Hours) Vital Signs Temp Pulse Resp BP Pulse Ox O2 Del Method O2 Flow Rate 06/25/22 07:29 80 18 96 Nasal Cannula 3 06/25/22 07:25 36.7 C 79 18 151/89 H 96 Room Air 06/25/22 03:31 70 16 97 Nasal Cannula 3.5 06/24/22 22:45 91 H 22 97 Nasal Cannula 3.5 06/24/22 20:35 36.7 C 89 20 112/78 97 Room Air Laboratory Results 06/25/22 06/25/22 Range/Units 06:43 06:43 WBC 9.43 (4.8-10.8) K/ul RBC 4.07 L (4.70-6.10) M/uL Hgb 11.3 L (14.0-18.0) g/dl Hct 36.4 L (42.0-52.0) % MCV 89.4 (80.0-100.0) fL MCH 27.8 (25.0-34.0) pg MCHC 31.0 L (32.0-36.0) g/dL RDW Std Deviation 47.8 H (36.4-46.3) fL RDW Coeff of Jem 14.7 H (11.5-14.5) % Plt Count 229 (130-400) K/uL MPV 9.6 (9.4-12.4) fL Sodium 142 (136-145) mmol/L Potassium 4.1 (3.5-5.1) mmol/L Chloride 104 (98-107) mmol/L Carbon Dioxide 35 H (21-32) mmol/L Anion Gap 3 (3-11) BUN 29 H (6-23) mg/dl Creatinine 0.93 (0.6-1.4) mg/dl Est Cr Clr Drug Dosing 85.4 ml/min Est GFR ( Amer) 96.7 ml/min Est GFR (Non-Af Amer) 83.5 ml/min BUN/Creatinine Ratio 31.2 H (10-20) Glucose 88 (70-99(Fasting)) mg/dl Calcium 9.0 (8.6-10.3) mg/dl PG Care Time/CCT Total # of Minutes Spent Total Time Spent with Patient: Total time spent is greater than 50% in coordination of care (as documented) at patient's floor/unit and/or counseling patient: Coding Level of Care Code 06869 SUB INP/OBS CARE 2/35MIN Diagnoses Acute exacerbation of chronic obstructive pulmonary disease J44.1 Essential hypertension I10 Essential hypertriglyceridemia E78.1 Tremor R25.1 Urinary retention R33.9 Anemia D64.9 Anemia type: unspecified type Superior mesenteric artery aneurysm I72.8 Inguinal hernia bilateral, non-recurrent K40.20 (6) Anemia Anemia type: unspecified type Qualified Code(s): D64.9 - Anemia, unspecified
[2022-06-25] MEDS: MULTIVITAMIN TAB PO SCH (08:21)
[2022-06-25] MEDS: METOPROLOL SUCC 50MG EXT REL TAB PO SCH (08:21)
[2022-06-25] MEDS: guaiFENesin 600 MG TABCR PO SCH ×2 (08:21→20:50)
[2022-06-25] MEDS: FLUTICASONE/VILANTEROL 200/25MCG 14 PUFFS/INHALER INH SCH (08:21)
[2022-06-25] MEDS: UMECLIDINIUM BROMIDE 62.5MCG/BLISTER 7 PUFFS/INHALER INH SCH (08:21)
[2022-06-25] MEDS: ATORVASTATIN 40 MG TAB PO SCH (08:21)
[2022-06-25] MEDS: ENOXAPARIN INJ 40 MG/0.4 ML SYR SQ SCH (08:21)
[2022-06-25] MEDS: FUROSEMIDE 20 MG TAB PO SCH (08:21)
[2022-06-25] MEDS: MAGNESIUM OXIDE 400 MG TAB PO SCH (08:22)
[2022-06-25] MEDS: predniSONE 20 MG TAB PO SCH (08:22)
[2022-06-25] MEDS: PREGABALIN 100 MG CAP PO SCH ×2 (08:33→20:50)
[2022-06-25] MEDS: ACETYLCYSTEINE 20% INHAL SOLN 4ML ***DISPENSED BY RESP. INH SCH ×2 (11:15→22:36)
[2022-06-25] MEDS: CYANOCOBALAMIN (B-12) 500 MCG TABLET PO SCH (20:50)
[2022-06-26] MEDS: ALBUT/IPRATROP 3MG/0.5MG NEB 3 ML VIAL NEB SCH ×6 (02:28→23:14)
[2022-06-26] MEDS: SODIUM CHLOR 7% 4 ML NEB NEB SCH ×2 (07:46→23:14)
[2022-06-26] MEDS: METOPROLOL SUCC 50MG EXT REL TAB PO SCH (08:55)
[2022-06-26] MEDS: MAGNESIUM OXIDE 400 MG TAB PO SCH (08:56)
[2022-06-26] MEDS: ATORVASTATIN 40 MG TAB PO SCH (08:56)
[2022-06-26] MEDS: guaiFENesin 600 MG TABCR PO SCH ×2 (08:56→20:22)
[2022-06-26] MEDS: MULTIVITAMIN TAB PO SCH (08:57)
[2022-06-26] MEDS: FLUTICASONE/VILANTEROL 200/25MCG 14 PUFFS/INHALER INH SCH (08:57)
[2022-06-26] MEDS: predniSONE 20 MG TAB PO SCH (08:58)
[2022-06-26] MEDS: ENOXAPARIN INJ 40 MG/0.4 ML SYR SQ SCH (08:58)
[2022-06-26] MEDS: PREGABALIN 100 MG CAP PO SCH ×2 (09:06→20:24)
[2022-06-26] MEDS: ACETYLCYSTEINE 20% INHAL SOLN 4ML ***DISPENSED BY RESP. INH SCH ×2 (11:39→23:14)
--- NOTE | 2022-06-26 13:36 | Hospitalist Progress Note ---
Date of Service June 26, 2022 Assessment & Plan (1) Acute exacerbation of chronic obstructive pulmonary disease: Plan: Acute on chronic COPD, on 4 L home oxygen. Increased wheezing, shortness of breath, oxygen requirement up to 5 L, increased production of some creamy white sputum for 2 days. No fever/chills/sweats No leukocytosis, procalcitonin is negative, BNP is normal, high-sensitivity troponin 3.4 without chest pain Not on prednisone for several months, denied significant change on low dose prednisone Previously failed nighttime AVAPS, Darilesp, azithromycin Echo 09/21/2021: EF 65-70%, no regional wall motion abnormalities, no significant change from 2020. Grade 1 diastolic dysfunction Prior tobacco/alcohol use; No recent use in prior 4 years Procal negative Continue Advair and Incruse/formulary equivalent. -- to be on advair BID, incruse at night, albuterol neb Q6hr Rescue albuterol inhaler q 4H as needed Sputum cx moderate normal alejandro, FINAL Completed Azithromycin x 5 days Switched to prednisone 40mg PO yesterday-- plan x 4 days, then decrease to 20mg x 4 days then stop Continue hypertonic saline, mucinex, pulm +mucomyst 06/23 (need rx) Titrate O2 to maintain sats -- 94% on 3L and agreeable to titrate further while at rest Hopeful for d/c in next 24 hours Can check ambulatory pulse ox prior to d/c (2) Essential hypertension: Plan: Continue metoprolol, Lasix every other day. No history of heart failure; last echo 08/2021 with normal EF, no wall motion abnormalities, grade 1 diastolic dysfunction BNP normal on admit, however weights are up in the system but no LE edema/effusion on CXR BP stable 120/75 (3) Essential hypertriglyceridemia: Plan: Continue Atorvastatin (4) Tremor: Plan: Mild resting tremor in hands, no change - anxious at times ?from steroids vs chronic resp failure/O2 use/over oxygenation, none witnessed at present No evidence of strokelike deficits (5) Urinary retention: Plan: No symptoms per patient, does not take medication at this time. Bladder scan as needed, if retaining start Flomax and cath as needed for post void residual greater than 350 2nd to hernias -- monitor Reporting no issues w/ him manipulating hernias and standing to urinate at present (6) Anemia: Plan: Hemoglobin 12.4 on admission, no signs of bleeding. Stools can be dark with iron Continue iron repletion, B12. Iron changed from twice daily to daily due to absorption limitation and contribution to constipation Of note, prior iron level ELEVATED in 2021--> DISCONTINUED PO SUPPLEMENTATION Hgb stable 11.3 and monitor/no bleeding (7) Superior mesenteric artery aneurysm: Plan: Patient aware, following as outpatient. No acute management (8) Inguinal hernia bilateral, non-recurrent: Plan: Patient with known r bilateral inguinal hernia containing portions of urinary bladder, multiple bowel loops without obstruction/inflammation. At bedside has not changed, no acute tenderness/warmth/swelling. Additional scrotal swelling is noted Patient is following with [facility] [place] and is pending operative repair 07/18. Patient is aware that he is increased risk due to his severe COPD with chronic respiratory failure. No acute management indicated at time of assessment Patient is not having any lower urinary tract symptoms, can bladder scan if concern for postvoid residual/obstructive uropathy due to pressure effect Nontender and no evidence of any incarceration Plan DVT prophylaxis: Lovenox for DVT prophylaxis Continued inpatient stay, transitioned to prednisone Will need written instructions on nebs/timing at home and new rx for hypertonic saline and duoneb at d/c Hopefully able to d/c tomorrow Admission and Anticipated Discharge Date Admission Date: June 22, 2022 Subjective Patient eval this morning, doing well but tells me that he is not comfortable with being discharged until tomorrow. He states he is confused about how to use all his medications when he is discharged. Reviewed his meds and wrote out directions for him to use at home. If stable for tomorrow, discussed dc home and will provide new rx for nebulizers. He is agreeable to continue to titrate O2, stable on 3L this morning at 94% Questions/concerns addressed at this time. Review of Systems Constitutional: no fever, no sweats and no body aches Respiratory: + cough, + chest congestion and + wheezing; no hemoptysis Cardiovascular: no chest pain, no dyspnea on exertion and no edema Gastrointestinal: no abdominal pain, no nausea, no vomiting and no hematemesis Genitourinary: no dysuria, no difficulty urinating, no urinary hesitancy or no flank pain Physical Exam Constitutional: WD/WN, vitals as above Neck: trachea midline, no thyromegaly Respiratory: normal respiratory effort; no labored breathing expiratory wheezing with decreased breath sounds Cardiovascular: RRR, no murmur, no edema Gastrointestinal (Abdomen): normal bowel sounds, soft, nontender, no hepatosplenomegaly large bilateral inguinal hernias, nontender and reducible Psychiatric: A+Ox3, euthymic affect Results & Data Results & Data Vital Signs (Past 12 Hours) Vital Signs Temp Pulse Resp BP Pulse Ox O2 Del Method O2 Flow Rate 06/26/22 11:52 78 20 94 Nasal Cannula 3 06/26/22 07:35 Nasal Cannula 3.5 06/26/22 07:48 75 18 97 Nasal Cannula 4 06/26/22 07:12 36.4 C L 66 16 120/75 99 Nasal Cannula 3.5 06/26/22 02:28 77 18 99 Nasal Cannula 3.5 PG Care Time/CCT Total # of Minutes Spent Total Time Spent with Patient: Total time spent is greater than 50% in coordination of care (as documented) at patient's floor/unit and/or counseling patient: Coding Level of Care Code 70961 SUB INP/OBS CARE 04/26MIN Diagnoses Acute exacerbation of chronic obstructive pulmonary disease J44.1 Essential hypertension I10 Essential hypertriglyceridemia E78.1 Tremor R25.1 Urinary retention R33.9 Anemia D64.9 Anemia type: unspecified type Superior mesenteric artery aneurysm I72.8 Inguinal hernia bilateral, non-recurrent K40.20 (6) Anemia Anemia type: unspecified type Qualified Code(s): D64.9 - Anemia, unspecified
[2022-06-26] MEDS: CYANOCOBALAMIN (B-12) 500 MCG TABLET PO SCH (20:22)
[2022-06-26] MEDS: UMECLIDINIUM BROMIDE 62.5MCG/BLISTER 7 PUFFS/INHALER INH SCH (20:25)
[2022-06-27] MEDS: ALBUT/IPRATROP 3MG/0.5MG NEB 3 ML VIAL NEB SCH ×3 (02:52→11:11)
[2022-06-27] MEDS: SODIUM CHLOR 7% 4 ML NEB NEB SCH (07:23)
[2022-06-27] MEDS: guaiFENesin 600 MG TABCR PO SCH (08:16)
[2022-06-27] MEDS: MAGNESIUM OXIDE 400 MG TAB PO SCH (08:16)
[2022-06-27] MEDS: FUROSEMIDE 20 MG TAB PO SCH (08:16)
[2022-06-27] MEDS: MULTIVITAMIN TAB PO SCH (08:16)
[2022-06-27] MEDS: ENOXAPARIN INJ 40 MG/0.4 ML SYR SQ SCH (08:17)
[2022-06-27] MEDS: ATORVASTATIN 40 MG TAB PO SCH (08:17)
[2022-06-27] MEDS: METOPROLOL SUCC 50MG EXT REL TAB PO SCH (08:17)
[2022-06-27] MEDS: predniSONE 20 MG TAB PO SCH (08:17)
[2022-06-27] MEDS: FLUTICASONE/VILANTEROL 200/25MCG 14 PUFFS/INHALER INH SCH (08:17)
[2022-06-27] MEDS: PREGABALIN 100 MG CAP PO SCH (08:21)
--- NOTE | 2022-06-27 10:53 | Discharge Summary ---
Date of Service June 27, 2022 Admission HPI Per Admitting Provider Lauro Barnes is a 71-year-old male with a past medical history of tobacco abuse, COPD, BPH with LUTS, SMA aneurysm, lymphedema, chronic respiratory failure with hypoxia and hypercapnia, Does with several days of dyspnea on exertion and shortness of breath. Received DuoNebs and methylprednisolone by EMS in route due to wheezing. Reports he does not take prednisone at home. Has been several months since he last took this and did not think it really helped Oxygen 93-95% at home on 1-3 L, recently put up to 4L Shortness of breath and wheezing x2 days Slightly more cough productive for creamy kovacs sputum He uses his Advair every day. No chest pain or chest pressure. No syncope or presyncope Has been using albuterol twice at home before coming in, not sure if it helped or not. Not a good historian of meds. Reports gives them to him. No nausea/vomiting/diarrhea. Intermittent constipation. Stools are dark with iron. No abdominal pain. Does have hernias which she is getting repaired at [facility] Confirmed with . Has not been on any prednisone for several months. Advair daily. Just got a refill of the incruse, uses sporadically in the evening. Albuterol --> Took meidcations this morning, but continued to be short of breath because he couldn't breath. Leg edema with no recent change Patient is a poor historian have medications. Reconciled at bedside, and with by phone. Patient reports med list as reported as recent pulmonology follow-up is still accurate with no changes other than that he did not switch to trelegy, thinks it was very expensive. Is taking Advair and also incruse when he remembers, incruse takes later in the day/evening. Medical History: Reviewed Medications: Reviewed Surgical History: Reviewed Family history: Reviewed Allergies: Reviewed Social History: Reviewed Code Status: Full Code Admission Exam Per Admitting Provider General: A&Ox3. NAD. Cooperative. HEENT: Atraumatic, normocephalic. Vision/hearing grossly intact. Pulm: Scattered diffuse end expiratory wheezes with moderate air movement. Somewhat improved shortly after nebulizer on reassessment. Symmetrical chest rise. No increased work of breathing. No respiratory distress. 92% on 4 L of oxygen. Cardiac: RRR, -mrg. Radial pulses intact and symmetrical. Abdominal: Nontender, nondistended, soft. BS present. : Very large right & L inguinal hernia. No acute erythema, tenderness, warmth. Additional scrotal swelling is noted without tenderness/erythema. Extremities: Warm, dry. Bilateral mild pitting edema at baseline per patient. Nontender to palpation. Black[place] Spreader strength, ankle dorsiflexion/plantarflexion grossly 5/5 without asymmetry and sensation of soft touch is intact. Principal Diagnosis Acute exacerbation of COPD Discharge Exam Constitutional WD/WN, vitals as above Neck trachea midline, no thyromegaly Respiratory normal respiratory effort; no labored breathing mild end expiratory wheezes Cardiovascular RRR, no murmur, no edema Gastrointestinal (Abdomen) normal bowel sounds, soft, nontender, no hepatosplenomegaly Psychiatric A+Ox3, euthymic affect Discharge Data Allergies Allergy/AdvReac Type Severity Reaction Status Date / Time No Known Allergies Allergy Verified 06/29/22 11:50 Consultations 06/20/22 11:19 ED Decision to Admit Stat 06/21/22 09:20 Consult Pulmonology Routine 06/25/22 NOTE Continue with hypertonic saline and Mucinex along with flutter valve. Patient tolerated Mucomyst, continue with it while in the hospital Completed 5 days of azithromycin Prednisone 40 mg for 4 days followed by 20 mg for 4 and then stop On Discharge Duonebs as needed every 6hrs PRN, Albuterol inhaler every 4hrs PRN, Advair 1 puff BID, Incruse one puff daily. He also has budesonide nebulizer which I do not think he needs to be on. We will send him on hypertonic saline nebulized which he will take with Duonebs BID Sputum culture negative to date No further recommendation from pulmonary perspective, will sign off Please call directly with any questions Hospital Course (1) Acute exacerbation of chronic obstructive pulmonary disease: Acute on chronic COPD, on 4 L home oxygen. Increased wheezing, shortness of breath, oxygen requirement up to 5 L, increased production of some creamy white sputum for 2 days. No fever/chills/sweats No leukocytosis, procalcitonin is negative, BNP is normal, high-sensitivity troponin 3.4 without chest pain Not on prednisone for several months, denied significant change on low dose prednisone Previously failed nighttime AVAPS, Darilesp, azithromycin Echo 09/21/2021: EF 65-70%, no regional wall motion abnormalities, no significant change from 2020. Grade 1 diastolic dysfunction Prior tobacco/alcohol use; No recent use in prior 4 years Procal negative Continue Advair and Incruse/formulary equivalent. -- to be on advair BID, incruse at night, albuterol neb Q6hr Rescue albuterol inhaler q 4H as needed Sputum cx moderate normal alejandro, FINAL Completed Azithromycin x 5 days Switched to prednisone 40mg PO yesterday-- plan x 4 days, then decrease to 20mg x 4 days then stop Continue hypertonic saline, mucinex, pulm +mucomyst 06/23 (need rx) Titrate O2 to maintain sats -- 94% on 3L and agreeable to titrate further while at rest Today respiratory checked patient and his O2 saturations remained above 92% on RA at rest. They will assess how patient does with ambulation to determine the amount of O2 needed for exertion (2) Essential hypertension: Continue metoprolol, Lasix every other day. No history of heart failure; last echo 08/2021 with normal EF, no wall motion abnormalities, grade 1 diastolic dysfunction BNP normal on admit, however weights are up in the system but no LE edema/effusion on CXR BP stable 117/77 (3) Essential hypertriglyceridemia: Continue Atorvastatin (4) Tremor: Mild resting tremor in hands, no change - anxious at times ? from steroids vs chronic resp failure/O2 use/over oxygenation, none witnessed at present No evidence of strokelike deficits on exam (5) Urinary retention: No symptoms per patient, does not take medication at this time. Bladder scan as needed, if retaining start Flomax and cath as needed for post void residual greater than 350 2nd to hernias -- monitor Reporting no issues w/ him manipulating hernias and standing to urinate at present no pain on exam Has surgical repair scheduled for 07/18/22 (6) Anemia: Hemoglobin 12.4 on admission, no signs of bleeding. Stools can be dark with iron Continue iron repletion, B12. Iron changed from twice daily to daily due to absorption limitation and contribution to constipation Of note, prior iron level ELEVATED in 2021--> DISCONTINUED PO SUPPLEMENTATION Hgb stable 11.3 and monitor/no bleeding (7) Superior mesenteric artery aneurysm: Patient aware, following as outpatient. No acute management (8) Inguinal hernia bilateral, non-recurrent: Patient with known r bilateral inguinal hernia containing portions of urinary bladder, multiple bowel loops without obstruction/inflammation. At bedside has not changed, no acute tenderness/warmth/swelling. Additional scrotal swelling is noted Patient [place] [facility] [place] pending operative repair 07/18. Patient is aware that he is increased risk due to his severe COPD with chronic respiratory failure. No acute management indicated at time of assessment Patient is not having any lower urinary tract symptoms, can bladder scan if concern for postvoid residual/obstructive uropathy due to pressure effect Nontender and no evidence of any incarceration Plan D/C to home later today Total Time Total Time Spent Total Time Spent (In Minutes): 40 Discharge Plan Discharge Items Patient Disposition: Home - Self-Care Reason For Visit: RESPITORY DISTRESS Discharge Diagnosis: exacerbation of COPD Condition on Discharge: Fair Activity: Resume your previous activity Non-emergency contact: Primary Care Provider Call non-emergency contact if: you have any medication questions, your symptoms worsen and you have a fever Follow-up/Referrals: Russell Dang DO [Primary Care Provider] - 06/30/22 9:20 am Diet: Heart Healthy Addtl Attending Provider Instructions: You have been hospitalized for shortness of breath/COPD exacerbation. Pulmonology was consulted and we provided IV steroids and nebulizers to help with symptoms and clearance of sputum. You completed 5 days of Azithromycin while in the hospital. You will be discharged on a prednisone taper 40mg daily for a total of 4 days 3 days already in the hospital for another 1 day (tomorrow), and then decrease to 20mg by mouth once daily for another 4 days then stop. You have been sent prescription for hypertonic saline nebulizers to do TWICE DAILY with your DUONEB (new prescription for this as well). Continue the incentive spirometer and flutter valve along with mucinex twice daily to help thin mucus and prevent mucus plugging/difficulty breathing. use the duoneb in nebulizer a total of 4 times per day. (2 times with hypertonic saline) You can use your rescue inhaler UP TO FOUR TIMES DAILY BUT ONLY NEEDED. You should continue the Incruse inhaler (1 x per day) and Advair (2x per day) as previously prescribed. You should NOT be on the budesonide inhaler any longer per discussion with Dr Kadri. Please DO NOT KEEP YOUR OXYGEN AT HIGH LEVELS WHEN YOUR SATURATION IS >90% as this does not improve your underlying disease and can actually be harmful. Please follow up with primary care in the next 7-10 days after discharge to monitor your status. Please return to the emergency department with any increased shortness of breath, chest pain, or for any other symptoms concerning for you. As discussed with regards to your hernia, if you develop redness/warmth/fever, this may indicate a surgical emergency and you should return to the ER immediately. Otherwise keep your surgery as planned. It has been a pleasure being a part of the medical team providing for you while you have been in the hospital. Take care! Pending Studies at Discharge: No Stand-Alone Forms: My [facility] Medications and DC Order Prescriptions: New ipratropium-albuterol 0.5 mg-3 mg(2.5 mg base)/3 mL Solution For Nebulization 3 ml NEB Q6H Qty: 180 0RF prednisone 20 mg Tablet 20 mg PO QAM Qty: 6 0RF Rx Instructions: please take 2 tablets in AM with food 06/28/22 then one tablet with food for the next 4 days 06/29/22 to 07/02/22 and stop guaifenesin [Mucinex] 600 mg Tablet Extended Release 12hr 600 mg PO Q12 Qty: 30 0RF sodium chloride 7 % Solution For Nebulization 4 ml NEB BIDR Qty: 240 0RF Rx Instructions: mix with Duoneb and use BID in nebulizer Continued sumatriptan succinate 50 mg tablet 50 mg PO Q2H MDD 4 tablets/24hrs PRN (Reason: migraine headache) Qty: 9 5RF albuterol sulfate 90 mcg/actuation HFA aerosol inhaler 1 - 2 puff INHALATION Q4H PRN (Reason: Shortness Of Breath) Qty: 54 5RF metoprolol succinate 50 mg tablet extended release 24 hr 50 mg PO DAILY Qty: 90 3RF Rx Instructions: TAKE 1 TABLET BY MOUTH ONCE DAILY pregabalin 100 mg capsule 100 mg PO BID Qty: 60 2RF furosemide [Lasix] 20 mg tablet 20 mg PO Q OTHER DAY Qty: 15 5RF Trelegy Ellipta 100-62.5-25 mcg blister with device 0RF (DME) nebulizer accessories Kit See Rx Instructions .ROUTE .MEDSUPPLY Qty: 1 0RF Rx Instructions: As directed (DME) Compact Compressor Nebulizer Misc See Rx Instructions .Route Qty: 1 0RF Rx Instructions: As directed (DME) Portable Oxygen Misc See Rx Instructions .Route Rx Instructions: As directed Probiotic Colon Support 1.5 billion cell Capsule 1 cap PO QAM ferrous sulfate 325 mg (65 mg iron) tablet,delayed release (DR/EC) 325 mg PO BID Qty: 60 0RF polyethylene glycol 3350 [Miralax] 17 gram powder in packet 17 g PO DAILY PRN (Reason: constipation) Qty: 30 0RF multivitamin with folic acid [Daily-[place] (with folic acid)] 400 mcg Tablet 1 tab PO QAM Qty: 30 0RF magnesium oxide 400 mg (241.3 mg magnesium) tablet 400 mg PO QAM cyanocobalamin (vitamin B-12) [Vitamin B-12] 1,000 mcg Tablet 1,000 mcg PO HS docusate sodium 100 mg capsule 100 mg PO BID PRN (Reason: Constipation) atorvastatin 40 mg tablet 40 mg PO DAILY No Action fluticasone propion-salmeterol [Advair Diskus] 500-50 mcg/dose blister with device 1 inh inhalation BID Qty: 90 3RF Incruse Ellipta 62.5 mcg/actuation blister with device 1 inh inhalation HS Qty: 30 3RF Rx Instructions: pt reports takes in evenign when he remembers Trelegy Ellipta 200-62.5-25 mcg blister with device 1 inh inhalation DAILY Qty: 60 1RF Rx Instructions: Pt currently taking the office sample Discharge Orders: Discharge Order (Routine); Ordered 06/27/22 Ordered By: Roselia Cardozo/Other Patient Handouts: Shortness Breath Maximize Energy, Shortness of B reath Coping Admission Data Admit Date/Time: 06/22/22 08:50 Attending Provider: Rey Paz Admit Provider: Jakob Taveras Primary Care Provider: Russell Dang Other Providers: Jakob Taveras ; Lenore Nam Other Interventions: Discharge Summary Assessment (RN) Last Done: 06/27/22 11:41 Supervising Physician Co-Signing Physician Notes During face to face encounter, I obtained a brief physical examination, discussed hospital stay with patient and discharge instructions with patient. I discussed discharge plan of care with APC Muffie. I reviewed above note and agree with it except for the following: Patient was treated for COPD exacerbation with antibiotics. Discharge plan as above. Coding Level of Care Code 14532 INP/OBS DISCH >30 MIN Diagnoses Acute exacerbation of chronic obstructive pulmonary disease J44.1 Essential hypertension I10 Essential hypertriglyceridemia E78.1 Tremor R25.1 Urinary retention R33.9 Anemia D64.9 Anemia type: unspecified type Superior mesenteric artery aneurysm I72.8 Inguinal hernia bilateral, non-recurrent K40.20 Time Spent (min) 40
[2022-06-27] MEDS: ACETYLCYSTEINE 20% INHAL SOLN 4ML ***DISPENSED BY RESP. INH SCH (11:22)
[2022-06-29] MEDS ORDERED: predniSONE 20 MG TAB PO SCH (09:00)
== END 2022-06-27 14:29 | disposition home or self-care (01) | DRG 190 ==
LOC: ED 09:34 → 3N 09:34 → SUATTDRO 12:12 → 3N 14:55 → SUATTDRO 06-22 08:50
DX: E78.1 Pure hyperglyceridemia; I10 Essential (primary) hypertension; Z87.891 Personal history of nicotine dependence; E78.5 Hyperlipidemia, unspecified; E66.9 Obesity, unspecified; D64.9 Anemia, unspecified; N40.0 Benign prostatic hyperplasia without lower urinary tract symptoms; R33.9 Retention of urine, unspecified; I72.8 Aneurysm of other specified arteries; K40.20 Bilateral inguinal hernia, without obstruction or gangrene, not specified as recurrent; Z68.35 Body mass index [BMI] 35.0-35.9, adult; G25.2 Other specified forms of tremor; Z99.81 Dependence on supplemental oxygen; J96.21 Acute and chronic respiratory failure with hypoxia; J43.9 Emphysema, unspecified; J96.22 Acute and chronic respiratory failure with hypercapnia

== ENCOUNTER 2022-09-20 10:12 | Inpatient (IN) ==
[2022-09-20] MEDS ORDERED: ALBUT/IPRATROP 3MG/0.5MG NEB 3 ML VIAL INH STA (10:34)
[2022-09-20] MEDS ORDERED: methylPREDNISolone 125 MG/2 ML VIAL IV STA (10:34)
--- NOTE | 2022-09-20 11:02 | Emergency Department Note ---
Impression & Plan COPD exacerbation ED Provider Note CHIEF COMPLAINT: Shortness of breath HISTORY OF PRESENT ILLNESS: This 71-year-old male patient with past medical history of oxygen dependent COPD, normally on 4 L nasal cannula, presents to the emergency department with complaints of severe shortness of breath this morning. Pt states he is coughing up greyish sputum. He denies CP, palpitations and fevers. He has been using his albuterol tx at home but denies any recent steroid use. REVIEW OF SYSTEMS: A review of systems was performed with positives and pertinent negatives listed in the history of present illness. 10 systems were reviewed and are otherwise negative. ALLERGIES: see below MEDICATIONS: see below PMH: see below SOCIAL HISTORY: see below DDx: Reactive airway disease, pneumonia, pneumothorax, COPD, CHF, infections, cardiac ischemia, pulmonary embolism, musculoskeletal, gastrointestinal, as well as other pathologies. PHYSICAL EXAM: Vital signs reviewed. General: Chronically appearing 71 yo male, in no significant distress. Tearful HEENT: No scleral icterus, PERRLA, neck supple. Edentulous Cardiovascular: Regular rate and rhythm, no extra sounds. Pulmonary: Coarse breath sound bilaterally, normal work of breathing. On 4 L nasal cannula Abdomen: Soft, nontender, nondistended, positive bowel sounds. Musculoskeletal: Atraumatic, no peripheral edema. Neurologic: Patient awake alert and oriented x 3, speech is clear Skin: Warm, dry, no rash EMERGENCY DEPARTMENT COURSE/MDM: This patient was evaluated and appeared to be in no significant distress. External medical records were reviewed. IV access was obtained and laboratory work was drawn. The patient was placed on the monitor and storage bin tender and noted to be in a sinus tachycardia. He had taken multiple n ebulizers prior to arrival. Patient was given 60 mg of IV Solu-Medrol and placed on a DuoNeb treatment. Chest x-ray was performed and reveals no evidence of focal lung consolidation or failure. Patient's laboratory work is fairly reassuring. Bio fire is negative. I did speak with the patient's over the phone who advised that his respiratory status at home was much worse. She states he is out of breath just walking to the bathroom on his nasal cannula oxygen. She states he is been turning it up to 6 more frequently. She is concerned about his ability to navigate the stairs. The hospitalist service has been consulted for further evaluation and management. MONITORING: An order for cardiac monitoring was placed and the patient is noted to be in a sinus tachy 103 beats per minute. RADIOLOGY: Chest x-ray to my interpretation reveals evidence of COPD without focal lung consolidation or failure. No pneumothorax. Otherwise defer to radiology Ultrasound of bilateral lower extremities reveals no evidence of DVT. EKG: To my interpretation reveals a sinus tachycardia with significant artifact. QTc 415 possible previous inferior infarct. 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) Per records Tobacco abuse Tremor R/L hands/feet Surgical History H/O tooth extraction Lower teeth on 04/23/2018 History of colonoscopy History of open reduction and internal fixation (ORIF) procedure FEMUR L Trimalleolar fracture ORIF (04/30/21): LMA#4 + PNB at [facility] (multiple attempts at SAB unsuccessful 2/2 to bone per anesthesia record) S/P foot surgery RT/LEFT (HARDWARE INTACT) Family History Father Hypertension Aneurysm Mother Swelling Uncle Myocardial infarction Other No significant family history Denies family history of Ovarian cancer Prostate cancer Breast cancer Colorectal cancer Social History Smoking Status: Former smoker Tobacco Type: Cigarettes Age Started Using Tobacco: 14; Age Quit Using Tobacco: 69; packs per day: 1; Cigarettes Per Day: quit 2-4 years ago; Second Hand Exposure: No; Do You Dip or Chew Tobacco: No; Hx Alcohol Use: Yes (pt says they quit x5 years ago) Alcohol type: beer Alcohol Intake Frequency Comment: 8+ per day Hx Substance Use: No Preferred Language: Ukrainian Communication Ability: Effective Communication Ability Comment: pt intubated and sedated Visual Impairment: Limited Hearing Ability: Normal Java Consultant Required: No Beliefs That Will Affect Care: None marital status: Current Living Situation: Spouse and Family Current Living Situation Comment: , granddaughter and her , 12 year old boy current occupational status: retired How many Children do You have: 2 Feels Safe at Home: Yes Safety Concerns: Feels Safe At This Time Childhood Exposure to Second-Hand Smoke: Yes Diet: regular Diet Comment: regular caffeine: No during the past year weight has: remained stable Dental Care, Regularly: No Physical Activity Frequency: Does not Exercise Seatbelt Use: always Sunscreen Use: No Assistive Devices: Cane, Oxygen - Continuous, Scooter/Electric Scooter and Walker Allergies Allergies Allergy/AdvReac Type Severity Reaction Status Date / Time No Known Allergies Allergy Verified 07/10/22 12:00 Home Meds Home Medications Medication Instructions Recorded Confirmed Lactobacills gasseri-Bifidobac 1 cap PO QAM 02/25/19 07/10/22 bifidum,longum 1.5 billion cell capsule (Probiotic Colon Support) cyanocobalamin (vitamin B-12) 1,000 mcg PO HS 03/08/21 07/10/22 1,000 mcg tablet (Vitamin B-12) magnesium oxide 400 mg (241.3 mg 400 mg PO QAM 06/17/21 07/10/22 magnesium) tablet docusate sodium 100 mg capsule 100 mg PO BID PRN Constipation 01/13/22 07/10/22 Portable Oxygen 03/08/22 07/10/22 atorvastatin 40 mg tablet 40 mg PO DAILY 06/20/22 07/10/22 acetaminophen 500 mg tablet 1,000 mg PO Q8H PRN 07/24/22 07/24/22 ciprofloxacin HCl 500 mg tablet 500 mg PO BID 07/24/22 07/24/22 oxycodone 5 mg tablet 5 mg PO Q4H PRN 07/24/22 07/24/22 Previous Rx's Medication Instructions Recorded nebulizer accessories #1 ea 12/22/20 ferrous sulfate 325 mg (65 mg 325 mg PO BID #60 tabs 05/03/21 iron) tablet,delayed release multivitamin with folic acid 400 1 tab PO QAM #30 tabs 05/03/21 mcg tablet (Daily-[place] (with folic acid)) polyethylene glycol 3350 17 gram 17 g PO DAILY PRN constipation #30 02/01/22 oral powder packet (Miralax) ea nebulizers (Compact Compressor #1 ea 09/29/21 Nebulizer) sumatriptan succinate 50 mg tablet 50 mg PO Q2H PRN migraine headache 12/08/21 #9 tabs albuterol sulfate 90 mcg/actuation 1 - 2 puff inhalation Q4H PRN 04/19/22 aerosol inhaler Shortness Of Breath #54 grams metoprolol succinate 50 mg 50 mg PO DAILY #90 tabs 04/26/22 tablet,extended release 24 hr furosemide 20 mg tablet (Lasix) 20 mg PO Q OTHER DAY #15 tabs 05/30/22 guaifenesin 600 mg tablet, 600 mg PO Q12 #30 tabs 06/27/22 extended release 12 hr (Mucinex) ipratropium 0.5 mg-albuterol 3 mg 3 ml NEB Q6H #180 mL 06/27/22 (2.5 mg base)/3 mL nebulization soln prednisone 20 mg tablet 20 mg PO QAM #6 tabs 06/27/22 sodium chloride 7 % for 4 ml NEB BIDR #240 mL 06/27/22 nebulization fluticasone 500 mcg-salmeterol 50 1 inh inhalation BID #90 puffs 07/11/22 mcg/dose blistr powdr for inhalation (Advair Diskus) tiotropium bromide 18 mcg capsule 1 cap inhalation DAILY #90 08/01/22 with inhalation device (Spiriva inhalations with HandiHaler) pregabalin 100 mg capsule 100 mg PO BID #60 caps 08/30/22 Results & Data (ED) Vital Signs Vital Signs - 24 hr 09/20/22 10:17 09/20/22 10:17 09/20/22 10:17 Temperature 37.2 C Temperature Source Oral Pulse Rate 108 H Pulse Rate [Apical] Pulse Rhythm Regular Pulse Rhythm [Apical] Respiratory Rate 20 Respiratory Effort / Characteristics Labored Short of Breath SOB on Exertion Short of Breath Respiratory Depth Shallow Blood Pressure 114/89 Blood Pressure Mean 97 Blood Pressure Position Semi-fowlers Pulse Oximetry 98 Oxygen Delivery Method Nasal Cannula Nasal Cannula Nasal Cannula Oxygen Flow Rate 5 5 4 Sepsis Recent Fever Within 48 Hours No Sepsis New/Unexplained Change in Mental Status No Sepsis Action Taken by Nursing No Action Required 09/20/22 10:28 09/20/22 10:47 09/20/22 10:47 Temperature Temperature Source Pulse Rate 106 H Pulse Rate [Apical] 103 H Pulse Rhythm Pulse Rhythm [Apical] Regular Respiratory Rate 19 Respiratory Effort / Characteristics Short of Breath SOB on Exertion Respiratory Depth Blood Pressure Blood Pressure Mean Blood Pressure Position Pulse Oximetry 98 98 Oxygen Delivery Method Nasal Cannula Nasal Cannula Oxygen Flow Rate 5 5 Sepsis Recent Fever Within 48 Hours Sepsis New/Unexplained Change in Mental Status Sepsis Action Taken by Half-Way Medications Current Medication List: was personally reviewed by me Laboratory Data Attestation: I reviewed the patient's lab results. 09/20/22 10:30 09/20/22 10:30 Lab Results 09/20/22 09/20/22 09/20/22 Range/Units 10:30 10:30 11:10 WBC 10.44 (4.8-10.8) K/ul RBC 4.52 L (4.70-6.10) M/uL Hgb 12.4 L (14.0-18.0) g/dl Hct 40.3 L (42.0-52.0) % MCV 89.2 (80.0-100.0) fL MCH 27.4 (25.0-34.0) pg MCHC 30.8 L (32.0-36.0) g/dL RDW Std Deviation 48.9 H (36.4-46.3) fL RDW Coeff of Jem 15.0 H (11.5-14.5) % Plt Count 259 (130-400) K/uL MPV 10.0 (9.4-12.4) fL Immature Gran % (Auto) 0.2 % Neut % (Auto) 71.5 % Lymph % (Auto) 10.8 % [place] % (Auto) 5.8 % Eos % (Auto) 11.1 % Baso % (Auto) 0.6 % Neut # (Auto) 7.46 H (1.40-6.50) K/uL Lymph # (Auto) 1.13 L (1.2-3.4) K/uL [place] # (Auto) 0.61 H (0.11-0.59) K/uL Eos # (Auto) 1.16 H (0-0.50) K/uL Baso # (Auto) 0.06 (0-0.2) K/uL Immature Gran # (Auto) 0.02 (0.01-0.20) K/uL Sodium 141 (136-145) mmol/L Potassium 3.8 (3.5-5.1) mmol/L Chloride 100 (98-107) mmol/L Carbon Dioxide 33 H (21-32) mmol/L Anion Gap 8 (3-11) BUN 11 (6-23) mg/dl Creatinine 0.88 (0.6-1.4) mg/dl Est Cr Clr Drug Dosing 91.9 ml/min Est GFR ( Amer) 101.6 ml/min Est GFR (Non-Af Amer) 87.6 ml/min BUN/Creatinine Ratio 12.5 (10-20) Glucose 131 H (70-99(Fasting)) mg/dl Calcium 9.7 (8.6-10.3) mg/dl Magnesium 1.9 (1.7-2.4) mg/dl Total Bilirubin 0.5 (0.2-1.0) mg/dl AST 15 (13-39) U/L ALT 10 (7-52) U/L Alkaline Phosphatase 94 (34-104) U/L Troponin I High Sens 2.7 (0-20) pg/ml Total Protein 7.7 (6.0-8.3) gm/dl Albumin 4.2 (3.4-5.0) gm/dl Globulin 3.5 (2.5-4.0) gm/dl Albumin/Globulin Ratio 1.2 (0.9-2) Adenovirus (PCR) Not Detected (NotDetected) B. pertussis DNA (PCR) Not Detected (NotDetected) B.parapertussis DNA PCR Not Detected (NotDetected) C. pneumoniae DNA (PCR) Not Detected (NotDetected) Coronavirus OC43 (PCR) Not Detected (NotDetected) Coronavirus HKU1 (PCR) Not Detected (NotDetected) Coronavirus 229E (PCR) Not Detected (NotDetected) SARS-CoV-2 (PCR) Not Detected (NotDetected) Coronavirus NL63 (PCR) Not Detected (NotDetected) Human Metapneumovir PCR Not Detected (NotDetected) Influenza Type A (PCR) Not Detected (NotDetected) Influenza Type B (PCR) Not Detected (NotDetected) M. pneumoniae (PCR) Not Detected (NotDetected) Parainfluenza 1 (PCR) Not Detected (NotDetected) Parainfluenza 2 (PCR) Not Detected (NotDetected) Parainfluenza 3 (PCR) Not Detected (NotDetected) Parainfluenza 4 (PCR) Not Detected (NotDetected) RSV (PCR) Not Detected (NotDetected) Entero/Rhino (PCR) Not Detected (NotDetected) Administered Medications Acetaminophen (Acetaminophen 325 Mg Tab) 650 mg PO Q4H PRN PRN Reason: pain/fever Stop: 10/20/22 15:17 Last Admin: 09/21/22 08:26 Dose: 650 mg Documented By: LONNIER Albuterol (Albut/Ipratrop 3mg/0.5mg Neb 3 Ml Vial) 3 ml NEB Q2H PRN PRN Reason: Shortness of Breath/Wheezing Stop: 10/20/22 15:17 Last Admin: 09/23/22 07:48 Dose: 3 ml Documented By: Admin: 09/22/22 16:01 Dose: 3 ml Documented By: Admin: 09/22/22 07:07 Dose: 3 ml Documented By: Admin: 09/21/22 19:22 Dose: 3 ml Documented By: Admin: 09/21/22 14:55 Dose: 3 ml Documented By: Admin: 09/21/22 10:38 Dose: 3 ml Documented By: Admin: 09/21/22 07:09 Dose: 3 ml Documented By: Admin: 09/21/22 04:47 Dose: 3 ml Documented By: Admin: 09/20/22 21:20 Dose: 3 ml Documented By: Admin: 09/20/22 19:16 Dose: 3 ml Documented By: DEEPTHIR Atorvastatin Calcium (Atorvastatin 40 Mg Tab) 40 mg PO DAILY DEBBY Stop: 10/21/22 08:59 Last Admin: 09/23/22 09:20 Dose: 40 mg Documented By: Admin: 09/22/22 08:04 Dose: 40 mg Documented By: Admin: 09/21/22 08:07 Dose: 40 mg Documented By: SJR Doxycycline Hyclate (Doxycycline Hyclate 100 Mg Cap) 100 mg PO BID DEBYB Stop: 09/28/22 17:59 Last Admin: 09/23/22 09:21 Dose: 100 mg Documented By: Admin: 09/22/22 21:06 Dose: 100 mg Documented By: Admin: 09/22/22 08:04 Dose: 100 mg Documented By: Admin: 09/21/22 18:03 Dose: 100 mg Documented By: SAUNDRA Enoxaparin Sodium (Enoxaparin Inj 40 Mg/0.4 Ml Syr) 40 mg SQ Q24H DEBBY Stop: 10/20/22 15:17 Last Admin: 09/23/22 15:53 Dose: 40 mg Documented By: Admin: 09/22/22 14:03 Dose: 40 mg Documented By: Admin: 09/21/22 15:32 Dose: 40 mg Documented By: Admin: 09/20/22 16:27 Dose: 40 mg Documented By: TIM Finasteride (Finasteride 5 Mg Tab) 5 mg PO QAM DEBBY Stop: 10/21/22 08:59 Last Admin: 09/23/22 09:20 Dose: 5 mg Documented By: Admin: 09/22/22 08:05 Dose: 5 mg Documented By: Admin: 09/21/22 08:07 Dose: 5 mg Documented By: SAUNDRA Fluticasone/Vilanterol (Fluticasone/Vilanterol 200/25mcg 14 Puffs/Inhaler) 1 puffs INH DAILY DEBBY Stop: 10/21/22 08:59 Last Admin: 09/23/22 09:22 Dose: 1 puffs Documented By: Admin: 09/22/22 08:06 Dose: 1 puffs Documented By: Admin: 09/21/22 08:21 Dose: 1 puffs Documented By: SAUNDRA Furosemide (Furosemide 40 Mg Tab) 40 mg PO DAILY DEBBY Stop: 10/21/22 16:44 Last Admin: 09/23/22 09:21 Dose: 40 mg Documented By: Admin: 09/22/22 08:05 Dose: 40 mg Documented By: Admin: 09/21/22 18:03 Dose: 40 mg Documented By: SAUNDRA Guaifenesin (Guaifenesin 600 Mg Tabcr) 1,200 mg PO Q12 DEBBY Stop: 10/20/22 20:59 Last Admin: 09/23/22 09:19 Dose: 1,200 mg Documented By: Admin: 09/22/22 21:06 Dose: 1,200 mg Documented By: Admin: 09/22/22 08:04 Dose: 1,200 mg Documented By: Admin: 09/21/22 20:45 Dose: 1,200 mg Documented By: Admin: 09/21/22 08:07 Dose: 1,200 mg Documented By: Admin: 09/20/22 20:27 Dose: 1,200 mg Documented By: ANIRUDH Methylprednisolone 40 mg/ (Syringe) 0.64 mls @ 1.5 mls/min IV BID DEBBY Stop: 10/22/22 20:59 Last Admin: 09/23/22 09:22 Dose: 1.5 mls/min Documented By: Admin: 09/22/22 21:06 Dose: 1.5 mls/min Documented By: JOHNATHAN Magnesium Oxide (Magnesium Oxide 400 Mg Tab) 400 mg PO QAM DEBBY Stop: 10/21/22 08:59 Last Admin: 09/23/22 09:20 Dose: 400 mg Documented By: Admin: 09/22/22 08:05 Dose: 400 mg Documented By: Admin: 09/21/22 08:21 Dose: 400 mg Documented By: SAUNDRA Metoprolol Succinate (Metoprolol Succ 50mg Ext Rel Tab) 50 mg PO DAILY DEBBY Stop: 10/21/22 08:59 Last Admin: 09/23/22 09:20 Dose: 50 mg Documented By: Admin: 09/22/22 08:05 Dose: 50 mg Documented By: Admin: 09/21/22 08:20 Dose: 50 mg Documented By: SAUNDRA Pregabalin (Pregabalin 100 Mg Cap) 100 mg PO BID DEBBY Stop: 10/20/22 20:59 Last Admin: 09/23/22 09:21 Dose: 100 mg Documented By: Admin: 09/22/22 21:06 Dose: 100 mg Documented By: Admin: 09/22/22 08:09 Dose: 100 mg Documented By: Admin: 09/21/22 20:45 Dose: 100 mg Documented By: Admin: 09/21/22 08:06 Dose: 100 mg Documented By: Admin: 09/20/22 20:27 Dose: 100 mg Documented By: ANIRUDH Sodium Chloride (Sodium Chlor 7% 4 Ml Neb) 4 ml NEB BIDR DEBBY Stop: 10/20/22 18:59 Last Admin: 09/23/22 07:44 Dose: 4 ml Documented By: Admin: 09/22/22 19:40 Dose: 4 ml Documented By: Admin: 09/22/22 07:07 Dose: 4 ml Documented By: Admin: 09/21/22 19:22 Dose: 4 ml Documented By: Admin: 09/21/22 07:00 Dose: 4 ml Documented By: Admin: 09/20/22 19:15 Dose: 4 ml Documented By: TORIE Tamsulosin HCl (Tamsulosin Hcl 0.4 Mg Cap) 0.4 mg PO HS DEBBY Stop: 10/20/22 20:59 Last Admin: 09/22/22 21:06 Dose: 0.4 mg Documented By: Admin: 09/21/22 20:45 Dose: 0.4 mg Documented By: Admin: 09/20/22 20:27 Dose: 0.4 mg Documented By: ANIRUDH Umeclidinium [place] (Umeclidinium [place] 62.5mcg/Blister 7 Puffs/Inhaler) 1 puffs INH DAILY DEBBY Stop: 10/21/22 08:59 Last Admin: 09/23/22 09:21 Dose: 1 puffs Documented By: Admin: 09/22/22 08:06 Dose: 1 puffs Documented By: Admin: 09/21/22 08:21 Dose: 1 puffs Documented By: SAUNDRA Discontinued Medications Albuterol (Albut/Ipratrop 3mg/0.5mg Neb 3 Ml Vial) 12 ml INH ONE STA Stop: 09/20/22 10:35 Last Admin: 09/20/22 11:23 Dose: 12 ml Documented By: JAMISON Furosemide (Furosemide 20 Mg Tab) 20 mg PO Q48H DEBBY Stop: 10/20/22 15:44 Last Admin: 09/20/22 16:56 Dose: 20 mg Documented By: TIM Magnesium Sulfate/Dextrose (Magnesium Sulfate / D5w) 1 gm in 100 mls @ 50 mls/hr IV Q2H DEBBY Stop: 09/20/22 17:59 Last Infusion: 09/20/22 18:36 Dose: 0 mls/hr Documented By: Admin: 09/20/22 16:31 Dose: 50 mls/hr Documented By: Infusion: 09/20/22 16:23 Dose: 50 mls/hr Documented By: Admin: 09/20/22 14:23 Dose: 50 mls/hr Documented By: ACC Doxycycline Hyclate 100 mg/ (Dextrose) 110 mls @ 50 mls/hr IV Q12H DEBBY Stop: 09/25/22 15:29 Last Infusion: 09/21/22 07:20 Dose: 0 mls/hr Documented By: Admin: 09/21/22 04:41 Dose: 50 mls/hr Documented By: Infusion: 09/20/22 19:03 Dose: 0 mls/hr Documented By: Admin: 09/20/22 16:31 Dose: 50 mls/hr Documented By: TIM Methylprednisolone 40 mg/ (Syringe) 0.64 mls @ 1.5 mls/min IV ONE ONE Stop: 09/20/22 20:01 Last Admin: 09/20/22 20:27 Dose: 1.5 mls/min Documented By: ANIRUDH Methylprednisolone (Methylprednisolone 125 Mg/2 Ml Vial) 60 mg IV NOW STA Stop: 09/20/22 10:35 Last Admin: 09/20/22 10:55 Dose: 60 mg Documented By: DHEERAJ Metoprolol Succinate (Metoprolol Succ 50mg Ext Rel Tab) 50 mg PO NOW STA Stop: 09/20/22 16:01 Last Admin: 09/20/22 16:56 Dose: 50 mg Documented By: TIM Prednisone (Prednisone 20 Mg Tab) 40 mg PO QA DEBBY Stop: 09/26/22 08:59 Last Admin: 09/22/22 08:08 Dose: 40 mg Documented By: Admin: 09/21/22 08:21 Dose: 40 mg Documented By: SJR Imaging Data Radiologist's Impression: Chest X-Ray 09/20/22 10:35 XR chest 1V portable HISTORY: 71 years-old Male Dyspnea acute shortness of breath COMPARISON: 06/23/2022 TECHNIQUE: AP view the chest FINDINGS: Cardiac silhouette is enlarged. Atherosclerosis of the aorta. No pneumothorax, pleural effusion, airspace consolidation or pulmonary edema. Mild interstitial coarsening of the lung bases. Bones appear grossly intact. IMPRESSION: Mild bibasilar opacities favor atelectasis. ACT 112: Negative or not required by law. The above report was generated using voice recognition software. It may contain grammatical, syntax or spelling errors. Electronically signed by: Jayme Portillo M.D. 09/20/2022 11:28 AM Venous Doppler Study 09/20/22 13:12 ULTRASOUND BILATERAL LOWER EXTREMITY VENOUS CLINICAL HISTORY: Lower extremity pain and swelling. COMPARISON STUDY: Bilateral lower extremity venous ultrasound dated 01/09/2019 TECHNIQUE: Real-time, grayscale, and color Doppler sonography of the deep veins of the right and left lower extremity was performed from the inguinal crease to the calf. Compression and augmentation were utilized. FINDINGS: There is no sonographic evidence of deep venous thrombosis identified in the right or left lower extremity. The common femoral, superficial femoral, and popliteal veins are patent and normally compressible bilaterally. The greater saphenous vein and the profunda femoris vein at the junction with the common femoral vein are clear in both legs. The visualized calf veins are patent bilaterally. IMPRESSION: There is no sonographic evidence of deep venous thrombosis identified in the right or left lower extremity. ACT 112: Negative or not required by law. Electronically signed by: Jack Santamaria M.D. 09/20/2022 2:24 PM Discharge Plan Visit Data Chief Complaint: Shortness of Breath/Dyspnea Stated Complaint: SOB ED Provider: Elen Sumner Discharge Problem: COPD exacerbation Patient Disposition: Admitted As Inpatient Discharge Instructions Interventions: ED Discharge Assessment Last Done: 09/20/22 14:52
[2022-09-20 11:10] LABS: Basophils # (auto) 0.06 K/uL (0-0.2); Basophils % (auto) 0.6 %; Eosinophils # (auto) 1.16 K/uL (0-0.50); Eosinophils % (auto) 11.1 %; Hematocrit (blood only) 40.3 % (42.0-52.0); Hemoglobin 12.4 g/dl (14.0-18.0); Immature Granulocytes # (auto) 0.02 K/uL (0.01-0.20); Immature Granulocytes % (auto) 0.2 %; Lymphocytes # (auto) 1.13 K/uL (1.2-3.4); Lymphocytes % (auto) 10.8 %; Mean Corpuscular Hemoglobin 27.4 pg (25.0-34.0); Mean Corpuscular Hgb Conc 30.8 g/dL (32.0-36.0); Mean Corpuscular Volume 89.2 fL (80.0-100.0); Monocytes # (auto) 0.61 K/uL (0.11-0.59); Monocytes % (auto) 5.8 %; Neutrophils # (auto) 7.46 K/uL (1.40-6.50); Neutrophils % (auto) 71.5 %; Platelet Count 259 K/uL (130-400); RDW Standard Deviation 48.9 fL (36.4-46.3); Red Blood Count 4.52 M/uL (4.70-6.10); White Blood Count 10.44 K/ul (4.8-10.8)
[2022-09-20 11:17] LABS: Albumin Globulin Ratio 1.2 (0.9-2); Albumin Level 4.2 gm/dl (3.4-5.0); BUN Creatinine Ratio 12.5 (10-20); Bilirubin,Total 0.5 mg/dl (0.2-1.0); Calcium 9.7 mg/dl (8.6-10.3); Creatinine Clr Calc Pharmacy 91.9 ml/min; Est GFR (African American) 101.6 ml/min; Est GFR (Non-African American) 87.6 ml/min; Globulin 3.5 gm/dl (2.5-4.0); Magnesium 1.9 mg/dl (1.7-2.4); Potassium 3.8 mmol/L (3.5-5.1); Total Protein 7.7 gm/dl (6.0-8.3)
[2022-09-20 11:22] LABS: Troponin I High Sensitivity 2.7 pg/ml (0-20)
--- NOTE | 2022-09-20 11:30 | XRay Report ---
XR chest 1V portable HISTORY: 71 years-old Male Dyspnea acute shortness of breath COMPARISON: 06/23/2022 TECHNIQUE: AP view the chest FINDINGS: Cardiac silhouette is enlarged. Atherosclerosis of the aorta. No pneumothorax, pleural effusion, airs pace consolidation or pulmonary edema. Mild interstitial coarsening of the lung bases. Bones appear g rossly intact. IMPRESSION: Mild bibasilar opacities favor atelectasis. ACT 112: Negative or not required by law. The above report was generated using voice recognition software. It may contain grammatical, syntax o r spelling errors. Electronically signed by: Jayme Portillo M.D. 09/20/2022 11:28 AM
[2022-09-20 12:29] LABS: Adenovirus PCR Not Detected (NotDetected); Bordetella parapertussis PCR Not Detected (NotDetected); Bordetella pertussis PCR Not Detected (NotDetected); Chlamydia pneumoniae PCR Not Detected (NotDetected); Coronavirus 229E PCR Not Detected (NotDetected); Coronavirus CoV-2 (COVID19)PCR Not Detected (NotDetected); Coronavirus HKU1 PCR Not Detected (NotDetected); Coronavirus NL63 PCR Not Detected (NotDetected); Coronavirus OC43PCR Not Detected (NotDetected); Human Metapneumovirus PCR Not Detected (NotDetected); Influenza A PCR Not Detected (NotDetected); Influenza B PCR Not Detected (NotDetected); Mycoplasma pneumoniae PCR Not Detected (NotDetected); Parainfluenza Virus 1 PCR Not Detected (NotDetected); Parainfluenza Virus 2 PCR Not Detected (NotDetected); Parainfluenza Virus 3 PCR Not Detected (NotDetected); Parainfluenza Virus 4 PCR Not Detected (NotDetected); Respiratory Syncytial VirusPCR Not Detected (NotDetected); Rhinovirus/Enterovirus PCR Not Detected (NotDetected)
--- NOTE | 2022-09-20 13:28 | History & Physical Report ---
Date of Service September 20, 2022 Assessment & Plan (1) Acute exacerbation of chronic obstructive pulmonary disease (COPD): Plan: Lauro is a 71-year-old male with a history of chronic respiratory failure 2/2 COPD on 4 L baseline oxygen, BPH with LUTS, superior mesenteric artery aneurysm, chronic venous stasis, arthritis who presents with 1 day of severely increased shortness of breath and wheezing, productive cough for marte-colored sputum. Acute COPD exacerbation, chronic hypercarbic hypercapnic respiratory failure Advanced COPD, follows with pulmonology. Is continued on Advair/Incruse. Prednisone has been weaned down to 20 mg in July. Failed Azithromycin and Daliresp therapy. 1-2 days of Increased wheezing, shortness of breath, ambulatory limitation of 1 day. Oxygen requirement increased from 4 L up to 5 L prior to admission. Thick white sputum production of 1 day without fever or chills. While in ER had 1 hour-long nebulizer and IV Solu-Medrol with an adequate improvement; patient tearful and unable to return home due to severe acute ambulatory limitation with COPD exacerbation - Per pts cannot even ambulate to the bathroom, not safe to return home at this time No leukocytosis Afebrile 2 g magnesium ordered Sputum culture pending Prednisone 40 mg x 4 days then rapid taper Continue Mucinex, hypertonic saline. +Mucomyst if adjunct required. Doxy 100mg BID for COPD exacerbation, has failed azithromycin in the past will defer this for acute tx. Do not hyper oxygenate. Goal SPO2 89-94% Does not wear CPAP/AVAPS at home. Is with metabolic component to shortness of breath and at risk for nighttime hypercapnia and weight disordered breathing. CPAP hsprn ordered On 4 L nasal cannula in ER Creatinine is less than 1 at baseline, admitting creatinine 0.88 No transaminitis Bio fire negative Chest x-ray: Mild bibasilar opacities favoring atelectasis, no overt airspace consolidation/pulmonary edema EKG: Sinus tachycardia. No territorial ST segment changes. QTc 415. High-sensitivity troponin is normal Hypertriglyceridemia Continue statin Hypertension Continue metoprolol, Lasix daily on admit Echo 08/2021: Grade 1 diastolic dysfunction, no wall motion abnormalities, preserved EF BPH with LUTS Bladder scan as needed If retaining greater than 300 straight cath x1 and start Flomax. If recurrently requiring straight cath, may place Farrell at that point Chronic anemia Hemoglobin at baseline, no acute bleeding Patient on ferrous sulfate which darkens to stool Patient slightly tachycardic on admission but with normal blood pressure, suspect tachycardia due to hour-long nebulizer SMA aneurysm Outpatient follow-up, no acute management at this time Leg swelling Chronic, near normal baseline with some paresthesias in the thighs Dopplers ordered while in ER pending. Patient notes he ambulates regularly and has not had any calf pain or leg asymmetry Slightly volume up on exam, will switch Lasix to daily temporarily. Follow BMP. DVT prophylaxis: Lovenox Diet: Heart healthy Disposition: Medical/surgical CODE STATUS: Full code (2) Acute on chronic respiratory failure with hypoxia and hypercapnia: (3) BPH loc w urin obs/LUTS: (4) Chronic respiratory failure with hypoxia: (5) Superior mesenteric artery aneurysm: (6) Tremor: History of Present Illness Primary Care Provider: Russell Dang DO Lauro is a 71-year-old male with a history of chronic respiratory failure 2/2 COPD on 4 L baseline oxygen, BPH with LUTS, superior mesenteric artery aneurysm, chronic venous stasis, arthritis who presents with 1 day of severely increased shortness of breath and wheezing, productive cough for marte-colored sputum. Lauro is seen at the bedside. He reports for about a day and a half he has had significantly increased white/marte sputum production, increased shortness of breath from his baseline, has needed to be on more oxygen around 5 L from his normal 4, and is much more fatigued moving from the bedside to the bathroom to the point that he is unable to do this on his own at home. Reports that this feels similar to prior exacerbations and notes "they need to wake me up every 4 hours so that I can cough this shit out "as the every 4 hours nebulizers have worked very well for him in the past. He denies fever, chills, sweats. Endorses that he has some sharp pain in his ribs around twice a week, none today or prior. Other than this he has had no chest pain, chest pressure, neck pain, or neck pressure. He did take his morning medications, although does not remember what medications this was. Denies medication changes since his last discharge. Endorses some bilateral leg swelling when he is on his feet, denies asymmetric leg swelling. Reports he is overall much more short of breath than normal but this is not worsened by laying flat. He reports he has some tingling in his thighs, but not numbness. Reports he does use 1 puffer every day and another 1 many times a day as needed, but was not helping every 4 hours and did not have enough of this to use more often notes the pharmacy has an up-to-date list, this is attempting to be reconciled at time of bedside visit. Denies medication allergies. Full code Medical History: Reviewed Medications: Reviewed Surgical History: Reviewed Family history: Reviewed Allergies: Reviewed Social History: Reviewed Code Status: Full code, discussed with patient at bedside Allergies Allergy/AdvReac Type Severity Reaction Status Date / Time No Known Allergies Allergy Verified 07/10/22 12:00 Home Medications Medication Instructions Recorded Confirmed Type Lactobacills gasseri-Bifidobac 1 cap PO QAM 02/25/19 07/10/22 History bifidum,longum 1.5 billion cell capsule (Probiotic Colon Support) nebulizer accessories #1 ea 12/22/20 07/10/22 Rx cyanocobalamin (vitamin B-12) 1,000 mcg PO HS 03/08/21 07/10/22 History 1,000 mcg tablet (Vitamin B-12) ferrous sulfate 325 mg (65 mg 325 mg PO BID #60 tabs 05/03/21 07/10/22 Rx iron) tablet,delayed release multivitamin with folic acid 400 1 tab PO QAM #30 tabs 05/03/21 07/10/22 Rx mcg tablet (Daily-[place] (with folic acid)) polyethylene glycol 3350 17 gram 17 g PO DAILY PRN constipation #30 05/03/21 07/10/22 Rx oral powder packet (Miralax) ea magnesium oxide 400 mg (241.3 mg 400 mg PO QAM 06/17/21 07/10/22 History magnesium) tablet nebulizers (Compact Compressor #1 ea 09/29/21 07/10/22 Rx Nebulizer) sumatriptan succinate 50 mg tablet 50 mg PO Q2H PRN migraine headache 12/08/21 07/10/22 Rx #9 tabs docusate sodium 100 mg capsule 100 mg PO BID PRN Constipation 01/13/22 07/10/22 History Portable Oxygen 03/08/22 07/10/22 History albuterol sulfate 90 mcg/actuation 1 - 2 puff inhalation Q4H PRN 04/19/22 07/10/22 Rx aerosol inhaler Shortness Of Breath #54 grams metoprolol succinate 50 mg 50 mg PO DAILY #90 tabs 04/26/22 07/10/22 Rx tablet,extended release 24 hr furosemide 20 mg tablet (Lasix) 20 mg PO Q OTHER DAY #15 tabs 05/30/22 07/10/22 Rx atorvastatin 40 mg tablet 40 mg PO DAILY 06/20/22 07/10/22 History guaifenesin 600 mg tablet, 600 mg PO Q12 #30 tabs 06/27/22 07/10/22 Rx extended release 12 hr (Mucinex) ipratropium 0.5 mg-albuterol 3 mg 3 ml NEB Q6H #180 mL 06/27/22 07/10/22 Rx (2.5 mg base)/3 mL nebulization soln prednisone 20 mg tablet 20 mg PO QAM #6 tabs 06/27/22 07/10/22 Rx sodium chloride 7 % for 4 ml NEB BIDR #240 mL 06/27/22 07/10/22 Rx nebulization fluticasone 500 mcg-salmeterol 50 1 inh inhalation BID #90 puffs 07/11/22 07/11/22 Rx mcg/dose blistr powdr for inhalation (Advair Diskus) acetaminophen 500 mg tablet 1,000 mg PO Q8H PRN 07/24/22 07/24/22 History ciprofloxacin HCl 500 mg tablet 500 mg PO BID 07/24/22 07/24/22 History oxycodone 5 mg tablet 5 mg PO Q4H PRN 07/24/22 07/24/22 History tiotropium bromide 18 mcg capsule 1 cap inhalation DAILY #90 08/01/22 Rx with inhalation device (Spiriva inhalations with HandiHaler) pregabalin 100 mg capsule 100 mg PO BID #60 caps 08/30/22 Rx Past Med/Surg History Medical History (Updated 08/09/22 @ 00:06 by Background Daemon) Acute encephalopathy AMS (altered mental status) Chronic anemia Colitis COPD (chronic obstructive pulmonary disease) Gout Hyperlipidemia Hypertension Incarcerated left inguinal hernia Low back pain Migraine On home oxygen therapy 2-4L continuous Orthostatic hypotension Per records Osteoarthritis Right inguinal hernia Seizure 2018 (no known etiology) Follows with Dr. Ben SIADH (syndrome of inappropriate ADH production) Per records Tobacco abuse Tremor R/L hands/feet Surgical History H/O tooth extraction Lower teeth on 04/23/2018 History of colonoscopy History of open reduction and internal fixation (ORIF) procedure FEMUR L Trimalleolar fracture ORIF (04/30/21): LMA#4 + PNB at [facility] (multiple attempts at SAB unsuccessful 2/2 to bone per anesthesia record) S/P foot surgery RT/LEFT (HARDWARE INTACT) Family History Father Hypertension Aneurysm Mother Swelling Uncle Myocardial infarction Other No significant family history Denies family history of Ovarian cancer Prostate cancer Breast cancer Colorectal cancer Social History Smoking Status: Former smoker Tobacco Type: Cigarettes Age Started Using Tobacco: 14; Age Quit Using Tobacco: 69; packs per day: 1; Cigarettes Per Day: quit 2-4 years ago; Second Hand Exposure: No; Do You Dip or Chew Tobacco: No; Hx Alcohol Use: No Hx Substance Use: No Preferred Language: Yakut Communication Ability: Effective Communication Ability Comment: pt intubated and sedated Visual Impairment: Limited Hearing Ability: Normal Hand Bootmaker Required: No Beliefs That Will Affect Care: None marital status: Current Living Situation: Spouse and Family Current Living Situation Comment: , granddaughter and her , 12 year old boy current occupational status: retired How many Children do You have: 2 Feels Safe at Home: Yes Childhood Exposure to Second-Hand Smoke: Yes Diet: regular Diet Comment: regular caffeine: No during the past year weight has: remained stable Dental Care, Regularly: No Physical Activity Frequency: Does not Exercise Seatbelt Use: always Sunscreen Use: No Assistive Devices: Cane, Nebulizer and Walker Review of Systems Review of Systems: All systems reviewed & are unremarkable except as noted in HPI & below Physical Exam Physical Exam: General: A&Ox3. NAD. Cooperative. HEENT: Atraumatic, normocephalic. Vision/hearing grossly intact. Pupils equal and reactive to light Pulm: Diffuse expiratory wheezes, coarse in the bases, moderate/slightly diminished air movement overall. No respiratory distress Cardiac: RRR, -mrg. Radial pulses intact and symmetrical. Abdominal: Nontender, nondistended, soft. BS present. Extremities: Bilateral 1+ ankle edema. No calf asymmetry. Sensation of soft touch is intact and symmetrical in the saddle region. Ankle dorsiflexion/plantarflexion 5/5 bilaterally with symmetrical sensation to soft touch. 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 Results & Data Results & Data Vital Signs (Past 12 Hours) Vital Signs Temp Pulse Pulse Resp BP Pulse Ox O2 Del Method 09/20/22 11:23 100 H 18 98 Nasal Cannula 09/20/22 10:47 98 Nasal Cannula 09/20/22 10:47 103 H 19 98 Nasal Cannula 09/20/22 10:28 106 H 09/20/22 10:17 Nasal Cannula 09/20/22 10:17 Nasal Cannula 09/20/22 10:17 37.2 C 108 H 20 114/89 98 Nasal Cannula O2 Flow Rate 09/20/22 11:23 4 09/20/22 10:47 5 09/20/22 10:47 5 09/20/22 10:28 09/20/22 10:17 4 09/20/22 10:17 5 09/20/22 10:17 5 PG Care Time/CCT Total # of Minutes Spent Total Time Spent with Patient: Total time spent is greater than 50% in coordination of care (as documented) at patient's floor/unit and/or counseling patient: Coding Level of Care Code 03327 INT INP/OBS CARE 2/55MIN Diagnoses Acute exacerbation of chronic obstructive pulmonary disease (COPD) J44.1 Acute on chronic respiratory failure with hypoxia and hypercapnia J96.21; J96.22 BPH loc w urin obs/LUTS N40.1 Chronic respiratory failure with hypoxia J96.11 Superior mesenteric artery aneurysm I72.8 Tremor R25.1
[2022-09-20] MEDS: MAGNESIUM SULFATE / D5W 1 GM/100 ML BAG IV SCH ×2 (14:23→16:31)
--- NOTE | 2022-09-20 14:25 | Ultrasound Report ---
ULTRASOUND BILATERAL LOWER EXTREMITY VENOUS CLINICAL HISTORY: Lower extremity pain and swelling. COMPARISON STUDY: Bilateral lower extremity venous ultrasound dated 01/09/2019 TECHNIQUE: Real-time, grayscale, and color Doppler sonography of the deep veins of the right and left lower extremity was performed from the inguinal crease to the calf. Compression and augmentation wer e utilized. FINDINGS: There is no sonographic evidence of deep venous thrombosis identified in the right or left lower extremity. The common femoral, superficial femoral, and popliteal veins are patent and normally compressible bilaterally. The greater saphenous vein and the profunda femoris vein at the junction w ith the common femoral vein are clear in both legs. The visualized calf veins are patent bilaterally. IMPRESSION: There is no sonographic evidence of deep venous thrombosis identified in the right or lef t lower extremity. ACT 112: Negative or not required by law. Electronically signed by: Jack Santamaria M.D. 09/20/2022 2:24 PM
[2022-09-20] MEDS ORDERED: POLYETHYLENE (MIRALAX) 17 GM PACK PO PRN (15:18)
[2022-09-20] MEDS ORDERED: FUROSEMIDE 20 MG TAB PO SCH (15:45)
--- NOTE | 2022-09-20 15:58 | Electrocardiogram Report ---
Test Reason : Blood Pressure : / mmHG Vent. Rate : 115 BPM Atrial Rate : 115 BPM P-R Int : 190 ms QRS Dur : 072 ms QT Int : 300 ms P-R-T Axes : 042 002 036 degrees QTc Int : 415 ms Sinus tachycardia with occasional Premature ventricular complexes Possible Inferior infarct (cited on or before 20-SEP-2022) Abnormal ECG When compared with ECG of 25-JUL-2022 14:53, Premature ventricular complexes are now Present Confirmed by Salas Hernandez ([id number]) on 09/20/2022 3:57:46 PM Referred By: Confirmed By:Salas Hernandez
[2022-09-20] MEDS ORDERED: METOPROLOL SUCC 50MG EXT REL TAB PO STA (16:00)
[2022-09-20] MEDS: ENOXAPARIN INJ 40 MG/0.4 ML SYR SQ SCH (16:27)
[2022-09-20] MEDS: DOXYCYCLINE HYCLATE 100 MG in DEXTROSE 5% 100 ML IV SCH (16:31)
[2022-09-20 18:34] LABS: Appearance Urine Clear (Clear); Bilirubin Urine Negative (Negative); Blood Urine Negative (Negative); Color Urine Yellow; Glucose Urine UA Negative (Negative); Ketones Urine Negative (Negative); Leukocyte Esterase Urine Negative (Negative); Nitrite Urine Negative (Negative); Protein Urine Negative (Negative); Specific Gravity Urine 1.015 (1.000-1.030); Urobilinogen Urine Negative (Negative)
[2022-09-20] MEDS: SODIUM CHLOR 7% 4 ML NEB NEB SCH (19:15)
[2022-09-20] MEDS: ALBUT/IPRATROP 3MG/0.5MG NEB 3 ML VIAL NEB PRN ×2 (19:16→21:20)
[2022-09-20] MEDS ORDERED: methylPREDNISolone 40 MG in SYRINGE 0 ML IV ONE (20:00)
[2022-09-20] MEDS: TAMSULOSIN HCL 0.4 MG CAP PO SCH (20:27)
[2022-09-20] MEDS: guaiFENesin 600 MG TABCR PO SCH (20:27)
[2022-09-20] MEDS: PREGABALIN 100 MG CAP PO SCH (20:27)
[2022-09-21] MEDS: DOXYCYCLINE HYCLATE 100 MG in DEXTROSE 5% 100 ML IV SCH (04:41)
[2022-09-21] MEDS: ALBUT/IPRATROP 3MG/0.5MG NEB 3 ML VIAL NEB PRN ×5 (04:47→19:22)
[2022-09-21] MEDS: SODIUM CHLOR 7% 4 ML NEB NEB SCH ×2 (07:00→19:22)
[2022-09-21 07:45] LABS: Albumin Globulin Ratio 1.1 (0.9-2); Albumin Level 3.8 gm/dl (3.4-5.0); BUN Creatinine Ratio 20.5 (10-20); Bilirubin,Total 0.5 mg/dl (0.2-1.0); Calcium 9.8 mg/dl (8.6-10.3); Creatinine Clr Calc Pharmacy 96.1 ml/min; Est GFR (African American) 104.1 ml/min; Est GFR (Non-African American) 89.8 ml/min; Globulin 3.5 gm/dl (2.5-4.0); Magnesium 2.1 mg/dl (1.7-2.4); Potassium 4.2 mmol/L (3.5-5.1); Total Protein 7.3 gm/dl (6.0-8.3)
[2022-09-21] MEDS: PREGABALIN 100 MG CAP PO SCH ×2 (08:06→20:45)
[2022-09-21] MEDS: FINASTERIDE 5 MG TAB PO SCH (08:07)
[2022-09-21] MEDS: guaiFENesin 600 MG TABCR PO SCH ×2 (08:07→20:45)
[2022-09-21] MEDS: ATORVASTATIN 40 MG TAB PO SCH (08:07)
[2022-09-21] MEDS: METOPROLOL SUCC 50MG EXT REL TAB PO SCH (08:20)
[2022-09-21] MEDS: predniSONE 20 MG TAB PO SCH (08:21)
[2022-09-21] MEDS: MAGNESIUM OXIDE 400 MG TAB PO SCH (08:21)
[2022-09-21] MEDS: FLUTICASONE/VILANTEROL 200/25MCG 14 PUFFS/INHALER INH SCH (08:21)
[2022-09-21] MEDS: UMECLIDINIUM BROMIDE 62.5MCG/BLISTER 7 PUFFS/INHALER INH SCH (08:21)
[2022-09-21] MEDS: ACETAMINOPHEN 325 MG TAB PO PRN (08:26)
[2022-09-21] MEDS: ENOXAPARIN INJ 40 MG/0.4 ML SYR SQ SCH (15:32)
--- NOTE | 2022-09-21 16:40 | Hospitalist Progress Note ---
Date of Service September 21, 2022 Assessment & Plan (1) Acute exacerbation of chronic obstructive pulmonary disease (COPD): Plan: Lauro is a 71-year-old male with a history of chronic respiratory failure 2/2 COPD on 4 L baseline oxygen, BPH with LUTS, superior mesenteric artery aneurysm, chronic venous stasis, arthritis who presents with 1 day of severely increased shortness of breath and wheezing, productive cough for marte-colored sputum. Acute on chronic COPD exacerbation, chronic hypercapnia Advanced COPD, follows with pulmonology. Is continued on Advair/Incruse. Prednisone has been weaned down to 20 mg in July. Failed Azithromycin and Daliresp therapy. 1-2 days of Increased wheezing, shortness of breath, ambulatory limitation of 1 day. Oxygen requirement increased from 4 L up to 5 L prior to admission. Thick white sputum production of 1 day without fever or chills. - Per pts cannot even ambulate to the bathroom, not safe to return home at this time No leukocytosis Afebrile 2 g magnesium ordered Sputum culture pending Prednisone 40 mg x 4 days then rapid taper Continue Mucinex, hypertonic saline. +Mucomyst if adjunct required. Doxy 100mg BID for COPD exacerbation, has failed azithromycin in the past will defer this for acute tx. Do not hyper oxygenate. Goal SPO2 89-94% Does not wear CPAP/AVAPS at home. Is with metabolic component to shortness of breath and at risk for nighttime hypercapnia and weight disordered breathing. CPAP hsprn ordered On 4 L nasal cannula in ER Creatinine is less than 1 at baseline, admitting creatinine 0.88 No transaminitis Bio fire negative Chest x-ray: Mild bibasilar opacities favoring atelectasis, no overt airspace consolidation/pulmonary edema EKG: Sinus tachycardia. No territorial ST segment changes. QTc 415. High-sensitivity troponin is normal Patient is with significantly improved wheezing on assessment 09/21, slightly improved still requiring every 2every 4 hours nebulizers which also help him expectorate sputum. remains mildly tachycardic with oxygen requirement of 4 L. Does not appear overtly fluid overloaded, does have a history of fluid retention on Lasix and with trace basilar crackles. he did not show any DVTs on Dopplers on admission. If continues to remain tachycardic and hypoxic, and does not improve with treatment for COPD exacerbation/Lasix we will follow-up with [facility] Hypertriglyceridemia Continue statin Hypertension Continue metoprolol, Lasix daily Echo 08/2021: Grade 1 diastolic dysfunction, no wall motion abnormalities, preserved EF BPH with LUTS Bladder scan as needed If retaining greater than 300 straight cath x1 and start Flomax Chronic anemia Hemoglobin at baseline, no acute bleeding Patient on ferrous sulfate which darkens to stool SMA aneurysm Outpatient follow-up, no acute management at this time Leg swelling Chronic, near normal baseline with some paresthesias in the thighs Dopplers ordered while in ER pending. Patient notes he ambulates regularly and has not had any calf pain or leg asymmetry Slightly volume up on exam, Lasix continued. Repeat CXR versus CT in the morning pending clinical progression DVT prophylaxis: Lovenox Diet: Heart healthy Disposition: Medical/surgical CODE STATUS: Full code (2) Acute on chronic respiratory failure with hypoxia and hypercapnia: (3) BPH loc w urin obs/LUTS: (4) Chronic respiratory failure with hypoxia: (5) Superior mesenteric artery aneurysm: (6) Tremor: Admission and Anticipated Discharge Date Admission Date: September 20, 2022 Kamari Restrepo is seen at the bedside. He reports that he does have some discomfort in his left ankle when trying to move around, but at rest has no pain. He is able to move his ankle [id number] while laying in bed without pain. Has not yet seen Ortho/PT/OT, has not yet had a walking boot brought to him. Initially reports that he would like to return home, acknowledges that he has had multiple falls, and additional avulsion fracture, and that his has had significant difficulty helping him ambulate at home and that he has multiple steps which are a strength barrier. Agrees to stay for formal PT/OT assessment, and agreeable in the room to at least a week of rehab to try to get stronger and reduce falls based on that evaluation. Denies fever, chills, sweats, lightheadedness, dizziness at the bedside. Remains on 4 L of oxygen, but feels he is moving air better and has no wheezing on exam. Denies inspiratory/pleuritic pain. No chest pain Review of Systems Review of Systems: All systems reviewed & are unremarkable except as noted in Subjective Physical Exam Physical Exam: General: A&Ox3. NAD. Cooperative. HEENT: Atraumatic, normocephalic. Vision/hearing grossly intact Pulm: Scattered wheezes improved from prior, somewhat coarse in the bases. No increased work of breathing. No respiratory distress. Cardiac: RRR, -mrg. Radial pulses intact and symmetrical. Abdominal: Nontender, nondistended, soft. BS present. Results & Data Results & Data Vital Signs (Past 12 Hours) Vital Signs Temp Pulse Resp BP Pulse Ox O2 Del Method O2 Flow Rate 09/21/22 14:57 102 H 18 95 Nasal Cannula 4 09/21/22 14:15 36.4 C L 98 H 22 135/82 97 Nasal Cannula 4 09/21/22 12:38 94 09/21/22 10:38 101 H 18 98 Nasal Cannula 4 09/21/22 09:13 Nasal Cannula 4 09/21/22 07:29 36.6 C 106 H 22 138/88 96 Nasal Cannula 4 09/21/22 07:01 98 H 16 100 Nasal Cannula 4 09/21/22 04:55 114 H 95 Nasal Cannula 4 09/21/22 04:47 105 H 97 Oxymask 10 PG Care Time/CCT Total # of Minutes Spent Total Time Spent with Patient: Total time spent is greater than 50% in coordination of care (as documented) at patient's floor/unit and/or counseling patient: Coding Level of Care Code 94206 SUB INP/OBS CARE 3/50MIN Diagnoses Acute exacerbation of chronic obstructive pulmonary disease (COPD) J44.1 Acute on chronic respiratory failure with hypoxia and hypercapnia J96.21; J96.22 BPH loc w urin obs/LUTS N40.1 Chronic respiratory failure with hypoxia J96.11 Superior mesenteric artery aneurysm I72.8 Tremor R25.1
[2022-09-21] MEDS: FUROSEMIDE 40 MG TAB PO SCH (18:03)
[2022-09-21] MEDS: DOXYCYCLINE HYCLATE 100 MG CAP PO SCH (18:03)
[2022-09-21] MEDS: TAMSULOSIN HCL 0.4 MG CAP PO SCH (20:45)
[2022-09-22] MEDS: SODIUM CHLOR 7% 4 ML NEB NEB SCH ×2 (07:07→19:40)
[2022-09-22] MEDS: ALBUT/IPRATROP 3MG/0.5MG NEB 3 ML VIAL NEB PRN ×2 (07:07→16:01)
[2022-09-22] MEDS: guaiFENesin 600 MG TABCR PO SCH ×2 (08:04→21:06)
[2022-09-22] MEDS: ATORVASTATIN 40 MG TAB PO SCH (08:04)
[2022-09-22] MEDS: DOXYCYCLINE HYCLATE 100 MG CAP PO SCH ×2 (08:04→21:06)
[2022-09-22 08:05] LABS: Basophils # (auto) 0.04 K/uL (0-0.2); Basophils % (auto) 0.4 %; Eosinophils # (auto) 0.12 K/uL (0-0.50); Eosinophils % (auto) 1.2 %; Hemoglobin 12.3 g/dl (14.0-18.0); Immature Granulocytes # (auto) 0.04 K/uL (0.01-0.20); Immature Granulocytes % (auto) 0.4 %; Lymphocytes # (auto) 1.88 K/uL (1.2-3.4); Lymphocytes % (auto) 18.7 %; Mean Corpuscular Hemoglobin 27.3 pg (25.0-34.0); Mean Corpuscular Hgb Conc 31.5 g/dL (32.0-36.0); Mean Corpuscular Volume 86.5 fL (80.0-100.0); Mean Platelet Volume 9.8 fL (9.4-12.4); Monocytes # (auto) 0.89 K/uL (0.11-0.59); Monocytes % (auto) 8.9 %; Neutrophils # (auto) 7.06 K/uL (1.40-6.50); Neutrophils % (auto) 70.4 %; Platelet Count 241 K/uL (130-400); RDW Coefficient of Variation 15.1 % (11.5-14.5); RDW Standard Deviation 47.8 fL (36.4-46.3); Red Blood Count 4.51 M/uL (4.70-6.10); White Blood Count 10.03 K/ul (4.8-10.8)
[2022-09-22] MEDS: MAGNESIUM OXIDE 400 MG TAB PO SCH (08:05)
[2022-09-22] MEDS: FUROSEMIDE 40 MG TAB PO SCH (08:05)
[2022-09-22] MEDS: FINASTERIDE 5 MG TAB PO SCH (08:05)
[2022-09-22] MEDS: METOPROLOL SUCC 50MG EXT REL TAB PO SCH (08:05)
[2022-09-22] MEDS: UMECLIDINIUM BROMIDE 62.5MCG/BLISTER 7 PUFFS/INHALER INH SCH (08:06)
[2022-09-22] MEDS: FLUTICASONE/VILANTEROL 200/25MCG 14 PUFFS/INHALER INH SCH (08:06)
[2022-09-22] MEDS: predniSONE 20 MG TAB PO SCH (08:08)
[2022-09-22] MEDS: PREGABALIN 100 MG CAP PO SCH ×2 (08:09→21:06)
[2022-09-22 08:18] LABS: BUN Creatinine Ratio 27.3 (10-20); Calcium 9.6 mg/dl (8.6-10.3); Creatinine Clr Calc Pharmacy 80.6 ml/min; Est GFR (African American) 89.7 ml/min; Est GFR (Non-African American) 77.4 ml/min; Potassium 3.9 mmol/L (3.5-5.1)
--- NOTE | 2022-09-22 13:02 | Hospitalist Progress Note ---
Date of Service September 22, 2022 Assessment & Plan (1) Acute exacerbation of chronic obstructive pulmonary disease (COPD): Plan: Lauro is a 71-year-old male with a history of chronic respiratory failure 2/2 COPD on 4 L baseline oxygen, BPH with LUTS, superior mesenteric artery aneurysm, chronic venous stasis, arthritis who presents with 1 day of severely increased shortness of breath and wheezing, productive cough for marte-colored sputum. Acute on chronic COPD exacerbation, chronic hypercapnia Advanced COPD, follows with pulmonology. Is continued on Advair/Incruse. Prednisone has been weaned down to 20 mg in July. Failed Azithromycin and Daliresp therapy. 1-2 days of Increased wheezing, shortness of breath, ambulatory limitation of 1 day. Oxygen requirement increased from 4 L up to 5 L prior to admission. Thick white sputum production of 1 day without fever or chills. - Per pts cannot even ambulate to the bathroom, not safe to return home at this time No leukocytosis Afebrile Sputum with normal Continue Mucinex, hypertonic saline. +Mucomyst if adjunct required. Doxy 100mg BID for COPD exacerbation, has failed azithromycin in the past will defer this for acute tx. Do not hyper oxygenate. Goal SPO2 89-94% Does not wear CPAP/AVAPS at home. Is with metabolic component to shortness of breath and at risk for nighttime hypercapnia and weight disordered breathing. CPAP hsprn ordered On 4 L nasal cannula in ER Creatinine is less than 1 at baseline, admitting creatinine 0.88 No transaminitis Bio fire negative Chest x-ray: Mild bibasilar opacities favoring atelectasis, no overt airspace consolidation/pulmonary edema EKG: Sinus tachycardia. No territorial ST segment changes. QTc 415. High-sensitivity troponin is normal Initially improving 09/21, with greatly increased wheezing 09/22. Continues to improve intermittently with DuoNebs. Given persistent and poorly controlled wheezing and easy fatigue, will increase steroids and convert to methylprednisolone twice daily. Continue all other pulmonary treatments. Sputum with normal alejandro. Trace ankle edema near euvolemic, admitting x-ray without edema. We will continue Lasix daily. Heart rate has begun to downtrend and normalize Hypertriglyceridemia Continue statin Hypertension Continue metoprolol, Lasix daily Echo 08/2021: Grade 1 diastolic dysfunction, no wall motion abnormalities, preserved EF BPH with LUTS Bladder scan as needed If retaining greater than 300 straight cath x1 and start Flomax Chronic anemia Hemoglobin at baseline, no acute bleeding Patient on ferrous sulfate which darkens to stool SMA aneurysm Outpatient follow-up, no acute management at this time Leg swelling Chronic, near normal baseline with some paresthesias in the thighs Dopplers ordered while in ER with no evidence of DVT. Patient notes he ambulates regularly and has not had any calf pain or leg asymmetry -Lasix continued DVT prophylaxis: Lovenox Diet: Heart healthy Disposition: Medical/surgical CODE STATUS: Full code (2) Acute on chronic respiratory failure with hypoxia and hypercapnia: (3) BPH loc w urin obs/LUTS: (4) Chronic respiratory failure with hypoxia: (5) Superior mesenteric artery aneurysm: (6) Tremor: Admission and Anticipated Discharge Date Admission Date: September 20, 2022 Subjective Seen at the bedside. Initially felt a little bit better, reports he continues to have significant wheezing and easy fatigue with desaturation when ambulating. No fever, chills, sweats. Sputum continues to be productive for creamy white sputum. Denies chest pain, chest pressure. Review of Systems Review of Systems: All systems reviewed & are unremarkable except as noted in Subjective Physical Exam Physical Exam: General: A&Ox3. NAD. Cooperative. HEENT: Atraumatic, normocephalic. Vision/hearing Pulm: Scattered diffuse expiratory wheezes. Coarse bilaterally symmetrical chest rise. No increased work of breathing. No respiratory distress. Cardiac: RRR, -mrg. Radial pulses intact and symmetrical. Abdominal: Nontender, nondistended, soft. BS present. Extremities: Bilateral ankle edema Results & Data Results & Data Vital Signs (Past 12 Hours) Vital Signs Temp Pulse Resp BP Pulse Ox O2 Del Method O2 Flow Rate 09/22/22 08:14 Nasal Cannula 4 09/22/22 07:44 36.8 C 82 18 130/84 95 Nasal Cannula 4 09/22/22 07:07 90 18 95 Nasal Cannula 4 PG Care Time/CCT Total # of Minutes Spent Total Time Spent with Patient: Total time spent is greater than 50% in coordination of care (as documented) at patient's floor/unit and/or counseling patient: Coding Level of Care Code 35021 SUB INP/OBS CARE 3/50MIN Diagnoses Acute exacerbation of chronic obstructive pulmonary disease (COPD) J44.1 Acute on chronic respiratory failure with hypoxia and hypercapnia J96.21; J96.22 BPH loc w urin obs/LUTS N40.1 Chronic respiratory failure with hypoxia J96.11 Superior mesenteric artery aneurysm I72.8 Tremor R25.1
[2022-09-22] MEDS: ENOXAPARIN INJ 40 MG/0.4 ML SYR SQ SCH (14:03)
[2022-09-22] MEDS: TAMSULOSIN HCL 0.4 MG CAP PO SCH (21:06)
[2022-09-22] MEDS: methylPREDNISolone 40 MG in SYRINGE 0 ML IV SCH (21:06)
[2022-09-23 07:42] LABS: Basophils # (auto) 0.01 K/uL (0-0.2); Basophils % (auto) 0.1 %; Hematocrit (blood only) 40.2 % (42.0-52.0); Hemoglobin 12.6 g/dl (14.0-18.0); Immature Granulocytes # (auto) 0.03 K/uL (0.01-0.20); Immature Granulocytes % (auto) 0.3 %; Lymphocytes # (auto) 1.03 K/uL (1.2-3.4); Lymphocytes % (auto) 10.8 %; Mean Corpuscular Hemoglobin 27.2 pg (25.0-34.0); Mean Corpuscular Hgb Conc 31.3 g/dL (32.0-36.0); Mean Corpuscular Volume 86.8 fL (80.0-100.0); Mean Platelet Volume 10.3 fL (9.4-12.4); Monocytes # (auto) 0.49 K/uL (0.11-0.59); Monocytes % (auto) 5.1 %; Neutrophils # (auto) 8.01 K/uL (1.40-6.50); Neutrophils % (auto) 83.7 %; Platelet Count 266 K/uL (130-400); RDW Coefficient of Variation 14.9 % (11.5-14.5); RDW Standard Deviation 47.6 fL (36.4-46.3); Red Blood Count 4.63 M/uL (4.70-6.10); White Blood Count 9.57 K/ul (4.8-10.8)
[2022-09-23] MEDS: SODIUM CHLOR 7% 4 ML NEB NEB SCH ×2 (07:44→19:48)
[2022-09-23] MEDS: ALBUT/IPRATROP 3MG/0.5MG NEB 3 ML VIAL NEB PRN ×2 (07:48→19:48)
[2022-09-23 08:00] LABS: BUN Creatinine Ratio 31.6 (10-20); Calcium 9.6 mg/dl (8.6-10.3); Est GFR (African American) 94.3 ml/min; Est GFR (Non-African American) 81.3 ml/min
[2022-09-23] MEDS: guaiFENesin 600 MG TABCR PO SCH ×2 (09:19→20:17)
[2022-09-23] MEDS: MAGNESIUM OXIDE 400 MG TAB PO SCH (09:20)
[2022-09-23] MEDS: METOPROLOL SUCC 50MG EXT REL TAB PO SCH (09:20)
[2022-09-23] MEDS: ATORVASTATIN 40 MG TAB PO SCH (09:20)
[2022-09-23] MEDS: FINASTERIDE 5 MG TAB PO SCH (09:20)
[2022-09-23] MEDS: FUROSEMIDE 40 MG TAB PO SCH (09:21)
[2022-09-23] MEDS: UMECLIDINIUM BROMIDE 62.5MCG/BLISTER 7 PUFFS/INHALER INH SCH (09:21)
[2022-09-23] MEDS: DOXYCYCLINE HYCLATE 100 MG CAP PO SCH ×2 (09:21→20:17)
[2022-09-23] MEDS: PREGABALIN 100 MG CAP PO SCH ×2 (09:21→20:16)
[2022-09-23] MEDS: methylPREDNISolone 40 MG in SYRINGE 0 ML IV SCH ×2 (09:22→20:17)
[2022-09-23] MEDS: FLUTICASONE/VILANTEROL 200/25MCG 14 PUFFS/INHALER INH SCH (09:22)
--- NOTE | 2022-09-23 11:07 | Hospitalist Progress Note ---
Date of Service September 23, 2022 Assessment & Plan (1) Acute exacerbation of chronic obstructive pulmonary disease (COPD): Plan: Lauro is a 71-year-old male with a history of chronic respiratory failure 2/2 COPD on 4 L baseline oxygen, BPH with LUTS, superior mesenteric artery aneurysm, chronic venous stasis, arthritis who presents with 1 day of severely increased shortness of breath and wheezing, productive cough for marte-colored sputum. Acute on chronic COPD exacerbation, chronic hypercapnia Advanced COPD, follows with pulmonology. Is continued on Advair/Incruse. Prednisone has been weaned down to 20 mg in July. Failed Azithromycin and Daliresp therapy. escalated home oxygen use to 5 L from 4 and then even using additional tanks after ambulation on top of his home unit, thick white sputum production of 1 day without fever or chills. -Difficulty even ambulate to the bathroom over his baseline Continue Mucinex, hypertonic saline. +Mucomyst if adjunct required. Doxy 100mg BID for COPD exacerbation, has failed azithromycin in the past will defer this for acute tx. Does not wear CPAP/AVAPS at home. Is with metabolic component to shortness of breath and at risk for nighttime hypercapnia and weight disordered breathing. CPAP hs prn ordered Chest x-ray: Mild bibasilar opacities favoring atelectasis, no overt airspace consolidation/pulmonary edema, BioFire respiratory panel negative Remains a methylprednisolone twice a day will not attempt tapering mostly of good 24 hours Hypertension Continue metoprolol, Lasix daily Echo 08/2021: Grade 1 diastolic dysfunction, no wall motion abnormalities, preserved EF BPH with LUTS Bladder scan as needed If retaining greater than 300 straight cath x1 and start Flomax Chronic anemia Hemoglobin at baseline, no acute bleeding Patient on ferrous sulfate which darkens to stool SMA aneurysm Outpatient follow-up, no acute management at this time Leg swelling Chronic, near normal baseline with some paresthesias in the thighs currently effective cor pulmonale Dopplers ordered while in ER with no evidence of DVT. Patient notes he ambulates regularly and has not had any calf pain or leg asymmetry -Lasix continued DVT prophylaxis: Lovenox Diet: low-sodium CODE STATUS: Full code (2) Acute on chronic respiratory failure with hypoxia and hypercapnia: (3) BPH loc w urin obs/LUTS: (4) Chronic respiratory failure with hypoxia: (5) Superior mesenteric artery aneurysm: (6) Tremor: Admission and Anticipated Discharge Date Admission Date: September 20, 2022 Subjective Patient feels improved from 1 day prior but not back to his baseline at times still very dyspneic, still with productive cough however sputum is now mostly whitish to clear Physical Exam Physical Exam: Signs of moderate respiratory distress with accessory muscle use pursed lip breathing and tachypnea even with casual conversation. Coughing paroxysms prompt worsening shortness of breath cough is productive of mucus Exam reveals no expiratory wheezing or prolonged expiratory phase decreased breath sounds at the bases Results & Data Results & Data Vital Signs (Past 12 Hours) Vital Signs Temp Pulse Pulse Resp BP Pulse Ox O2 Del Method 09/23/22 09:11 100 H 22 132/81 97 Nasal Cannula 09/23/22 07:48 107 H 20 93 Nasal Cannula 09/23/22 07:21 97.7 F 88 18 118/87 98 Nasal Cannula 09/22/22 23:28 97.7 F 88 18 120/83 97 Nasal Cannula O2 Flow Rate 09/23/22 09:11 09/23/22 07:48 4 09/23/22 07:21 4 09/22/22 23:28 4 Laboratory Results Reviewed CBC reviewed chemistry PG Care Time/CCT Total # of Minutes Spent Total Time Spent with Patient: Total time spent is greater than 50% in coordination of care (as documented) at patient's floor/unit and/or counseling patient: Coding Level of Care Code 13516 SUB INP/OBS CARE 2/35MIN Diagnoses Acute exacerbation of chronic obstructive pulmonary disease (COPD) J44.1 Acute on chronic respiratory failure with hypoxia and hypercapnia J96.21; J96.22 BPH loc w urin obs/LUTS N40.1 Chronic respiratory failure with hypoxia J96.11 Superior mesenteric artery aneurysm I72.8 Tremor R25.1
[2022-09-23] MEDS: ENOXAPARIN INJ 40 MG/0.4 ML SYR SQ SCH (15:53)
[2022-09-23] MEDS: TAMSULOSIN HCL 0.4 MG CAP PO SCH (20:17)
[2022-09-24 06:46] LABS: Hemoglobin 12.2 g/dl (14.0-18.0); Immature Granulocytes # (auto) 0.03 K/uL (0.01-0.20); Immature Granulocytes % (auto) 0.3 %; Lymphocytes # (auto) 1.13 K/uL (1.2-3.4); Lymphocytes % (auto) 11.4 %; Mean Corpuscular Hemoglobin 27.5 pg (25.0-34.0); Mean Corpuscular Hgb Conc 32.1 g/dL (32.0-36.0); Mean Corpuscular Volume 85.8 fL (80.0-100.0); Mean Platelet Volume 10.3 fL (9.4-12.4); Monocytes # (auto) 0.63 K/uL (0.11-0.59); Monocytes % (auto) 6.4 %; Neutrophils # (auto) 8.13 K/uL (1.40-6.50); Neutrophils % (auto) 81.9 %; Platelet Count 243 K/uL (130-400); RDW Coefficient of Variation 15.1 % (11.5-14.5); RDW Standard Deviation 46.9 fL (36.4-46.3); Red Blood Count 4.43 M/uL (4.70-6.10); White Blood Count 9.92 K/ul (4.8-10.8)
[2022-09-24] MEDS: ALBUT/IPRATROP 3MG/0.5MG NEB 3 ML VIAL NEB PRN (07:44)
[2022-09-24] MEDS: SODIUM CHLOR 7% 4 ML NEB NEB SCH ×2 (07:44→19:10)
[2022-09-24] MEDS: DOXYCYCLINE HYCLATE 100 MG CAP PO SCH ×2 (08:54→21:23)
[2022-09-24] MEDS: guaiFENesin 600 MG TABCR PO SCH ×2 (08:54→21:23)
[2022-09-24] MEDS: ATORVASTATIN 40 MG TAB PO SCH (08:54)
[2022-09-24] MEDS: FUROSEMIDE 40 MG TAB PO SCH (08:55)
[2022-09-24] MEDS: FLUTICASONE/VILANTEROL 200/25MCG 14 PUFFS/INHALER INH SCH (08:55)
[2022-09-24] MEDS: MAGNESIUM OXIDE 400 MG TAB PO SCH (08:55)
[2022-09-24] MEDS: FINASTERIDE 5 MG TAB PO SCH (08:55)
[2022-09-24] MEDS: METOPROLOL SUCC 50MG EXT REL TAB PO SCH (08:55)
[2022-09-24] MEDS: UMECLIDINIUM BROMIDE 62.5MCG/BLISTER 7 PUFFS/INHALER INH SCH (08:56)
[2022-09-24] MEDS: methylPREDNISolone 40 MG in SYRINGE 0 ML IV SCH (08:57)
[2022-09-24] MEDS: PREGABALIN 100 MG CAP PO SCH ×2 (09:42→21:26)
[2022-09-24] MEDS: ENOXAPARIN INJ 40 MG/0.4 ML SYR SQ SCH (15:05)
--- NOTE | 2022-09-24 16:34 | Hospitalist Progress Note ---
Date of Service September 24, 2022 Assessment & Plan (1) Acute exacerbation of chronic obstructive pulmonary disease (COPD): Plan: Patient with exacerbation of severe obstructive lung disease and chronic hypoxemic and hypercarbic respiratory failure secondary to COPD on 4 L baseline oxygen, BPH with LUTS, superior mesenteric artery aneurysm, chronic venous stasis, arthritis Acute on chronic COPD exacerbation, chronic hypercapnia Advanced COPD, follows with pulmonology. Dr. Rich diehl is continued on Advair/Incruse. Prednisone has been weaned down to 20 mg in July. Failed Azithromycin and Daliresp therapy. escalated home oxygen use to 5 L from 4 and then even using additional tanks after ambulation on top of his home unit, thick white sputum production of 1 day without fever or chills. -Difficulty even ambulate to the bathroom over his baseline Continue Mucinex, hypertonic saline. +Mucomyst if adjunct required. Doxy 100mg BID for poss bronchitis and COPD exacerbation, Does not wear CPAP/AVAPS at home. Chest x-ray: Mild bibasilar opacities favoring atelectasis, no overt airspace consolidation/pulmonary edema, BioFire respiratory panel negative Remains a methylprednisolone twice a day will not attempt tapering on 09/25 Hypertension Continue metoprolol, Lasix daily Echo 08/2021: Grade 1 diastolic dysfunction, no wall motion abnormalities, preserved EF BPH with LUTS Bladder scan as needed If retaining greater than 300 straight cath x1 and start Flomax Chronic anemia Hemoglobin at baseline, no acute bleeding Patient on ferrous sulfate which darkens to stool SMA aneurysm Outpatient follow-up, no acute management at this time Leg swelling Chronic, near normal baseline with some paresthesias in the thighs currently effective cor pulmonale Dopplers ordered while in ER with no evidence of DVT. Patient notes he ambulates regularly and has not had any calf pain or leg asymmetry -Lasix continued DVT prophylaxis: Lovenox Diet: low-sodium CODE STATUS: Full code (2) Acute on chronic respiratory failure with hypoxia and hypercapnia: (3) BPH loc w urin obs/LUTS: (4) Chronic respiratory failure with hypoxia: (5) Superior mesenteric artery aneurysm: (6) Tremor: Admission and Anticipated Discharge Date Admission Date: September 24, 2022 Subjective Patient with significant dyspnea and coughing typically on 4 L at home recently having to increase his oxygen for exertion. Patient most concerned about the steps in his home we discussed rehab which she did not feel was an option I phoned his in the afternoon the patient's request just to fill her in on the possibility that he is going to continue to have intermittent declines given the severe obstructive lung disease that he has Physical Exam Physical Exam: Patient with a loose productive cough of white sputum pursed lip breathing using accessory muscles even when sitting in bed does get dyspneic with conversation is angry regarding his living situation at this time has persistent lower extremity edema to the thigh and occasional discomfort to his thighs which sounds to be neuropathic Results & Data Results & Data Vital Signs (Past 12 Hours) Vital Signs Temp Pulse Resp BP Pulse Ox O2 Del Method O2 Flow Rate 09/24/22 15:01 98.1 F 92 H 18 124/84 96 Nasal Cannula 4 09/24/22 07:40 Nasal Cannula 4 09/24/22 08:52 100 H 120/83 09/24/22 07:44 90 22 91 Nasal Cannula 4 09/24/22 06:58 97.5 F L 96 H 18 124/91 95 Nasal Cannula 4 Laboratory Results Reviewed CBC Reviewed outpatient pulmonary medicine note PG Care Time/CCT Total # of Minutes Spent Total Time Spent with Patient: Total time spent is greater than 50% in coordination of care (as documented) at patient's floor/unit and/or counseling patient: Coding Level of Care Code 28332 SUB INP/OBS CARE 2/35MIN Diagnoses Acute exacerbation of chronic obstructive pulmonary disease (COPD) J44.1 Acute on chronic respiratory failure with hypoxia and hypercapnia J96.21; J96.22 BPH loc w urin obs/LUTS N40.1 Chronic respiratory failure with hypoxia J96.11 Superior mesenteric artery aneurysm I72.8 Tremor R25.1
[2022-09-24] MEDS ORDERED: FLUTICASONE/VILANTEROL 200/25MCG 14 PUFFS/INHALER INH SCH (17:00)
[2022-09-24] MEDS ORDERED: OPTIRAY 320 125ml IV ONE (17:38)
--- NOTE | 2022-09-24 18:08 | CT Scan Report ---
CT ANGIOGRAPHY OF THE CHEST, PULMONARY EMBOLUS PROTOCOL CLINICAL HISTORY: Shortness of breath. Persistent COPD exacerbation. Evaluate for pulmonary embolus. COMPARISON STUDY: Chest CT September 20, 2021 and chest radiograph September 20, 2022. TECHNIQUE: Following IV administration of 120 mL of Optiray, helical axial images of the chest were o btained utilizing the pulmonary embolus protocol. Maximal intensity projections and sagittal and cor onal reformats were viewed on an independent 3D workstation. IV contrast was administered without co mplication. Automated exposure control was utilized for the study. A dose lowering technique was ut ilized adhering to the principles of ALARA. CT DOSE: 839.08 mGy.cm FINDINGS: No pulmonary emboli are identified although segmental and subsegmental pulmonary arteries within the left lower lobe are suboptimally assessed due to respiratory motion. There is no thoracic aortic dissection. Size the heart is normal. There is no thoracic lymphadenopathy. Emphysema is again noted. There is no consolidation to suggest pneumonia. Bilateral lower lobe bronchial wall thickenin g with scattered secretions are noted. Similar findings are noted within the right middle lobe. There is no pneumothorax or pleural effusion. No acute fractures within the thorax are noted. A few hypode nse hepatic lesions are unchanged from earlier exams. These are benign. Small gallstones within the g allbladder. IMPRESSION: 1. No pulmonary emboli identified although left lower lobe segmental and subsegmental pulmonary arter ies suboptimally assessed. 2. No consolidation to suggest pneumonia. Bilateral lower lobe and right middle lobe bronchial wall t hickening with secretions. 3. Emphysema. ACT 112: Negative or not required by law. Electronically signed by: Chaitanya Srivastava M.D. 09/24/2022 6:06 PM
[2022-09-24] MEDS: ALBUT/IPRATROP 3MG/0.5MG NEB 3 ML VIAL NEB SCH (19:10)
[2022-09-24] MEDS ORDERED: FLUTICASONE/SALMETEROL (ADVAIR) 500/50 INH 14 PUFF INH SCH (21:00)
[2022-09-24] MEDS: TAMSULOSIN HCL 0.4 MG CAP PO SCH (21:24)
[2022-09-25] MEDS: SODIUM CHLOR 7% 4 ML NEB NEB SCH ×2 (07:08→20:16)
[2022-09-25] MEDS: ALBUT/IPRATROP 3MG/0.5MG NEB 3 ML VIAL NEB SCH ×4 (07:20→20:16)
[2022-09-25] MEDS: MAGNESIUM OXIDE 400 MG TAB PO SCH (08:06)
[2022-09-25] MEDS: guaiFENesin 600 MG TABCR PO SCH ×2 (08:06→20:10)
[2022-09-25] MEDS: predniSONE 20 MG TAB PO SCH (08:06)
[2022-09-25] MEDS: DOXYCYCLINE HYCLATE 100 MG CAP PO SCH ×2 (08:06→20:09)
[2022-09-25] MEDS: ATORVASTATIN 40 MG TAB PO SCH (08:06)
[2022-09-25] MEDS: FUROSEMIDE 40 MG TAB PO SCH (08:06)
[2022-09-25] MEDS: FINASTERIDE 5 MG TAB PO SCH (08:07)
[2022-09-25] MEDS: METOPROLOL SUCC 50MG EXT REL TAB PO SCH (08:07)
[2022-09-25] MEDS: UMECLIDINIUM BROMIDE 62.5MCG/BLISTER 7 PUFFS/INHALER INH SCH (08:10)
[2022-09-25] MEDS: PREGABALIN 100 MG CAP PO SCH ×2 (08:12→20:13)
--- NOTE | 2022-09-25 08:45 | Pulmonary Consultation ---
Date of Consultation September 25, 2022 Assessment & Plan (1) Respiratory failure with hypoxia and hypercapnia: (2) Acute exacerbation of chronic obstructive pulmonary disease: (3) Acute dyspnea: Plan Impression: 70-year-old male with very severe obstructive lung disease and chronic hypoxemic and hypercarbic respiratory failure admitted with exacerbation. The patient has been on chronic prednisone at home. He is failed a trial of noninvasive positive pressure ventilation at night. He was attempted on a trial of Daliresp however medication was too expensive for the patient to consider. He has failed chronic azithromycin in the outpatient setting. Recommendations: 1. Hypercarbic respiratory failure: The patient is not tolerated nocturnal AVAPS previously. He appears compensated. No indication for noninvasive positive pressure ventilation currently.. 2. Acute exacerbation of COPD: Patient is unclear whether he did better with nebulized therapies or not. We will place him on Perforomist and budesonide and continue DuoNebs 4 times a day. Could consider Yuperli as outpatient instead of Incruse if he feels better with nebulized therapies. Continue steroids and doxycycline. Continue high-dose Mucinex and hypertonic saline. Could consider the addition of theophylline however its narrow therapeutic window and potential for aggravation of atrial arrhythmias makes it less appealing. Add flutter valve 3. Pulmonary rehab may also be a consideration at discharge 4. Continue oxygen to keep saturations at or above 88%. Would not try and target oxygen saturations greater than 90% in this patient given his hypercarbia. 5. Patient was encouraged to remain out of bed up to the chair as much as possible. This will improve his respiratory mechanics. Patient was advised that he does have advanced lung disease. We are not going to be able to reverse his significant airflow obstruction at this point time. We could consider referral to a tertiary center for investigational therapies including bronchial denervation if the patient stabilizes. Will continue to follow with you. Thanks for the opportunity of caring for this patient. Feel free to contact us with questions or concerns History of Present Illness Attending Physician: Kyaw Godoy MD History of Present Illness Asked by hospitalist to evaluate this patient with chronic obstructive pulmonary disease and chronic hypoxemic respiratory failure admitted for exacerbation of same. History is obtained from review the electronic medical record as well as discussion with the patient. Patient is a 71-year-old male who I follow in the outpatient clinic. He has a history of advanced COPD and chronic hypoxemic respiratory failure. He was admitted to the facility 09/20/2022 with complaints of increasing sputum production and progressive shortness of breath. He has been treated for exacerbation of COPD with steroids mucolytic's but has reached a plateau and failed to improve prompting pulmonary consultation. The patient reports continued coughing. He has some difficulty expectorating phlegm. He states the hypertonic saline has been beneficial. His outpatient regiment is Advair and Incruse and he has been intermittently on prednisone. He has been tried on chronic azithromycin therapy as well as Daliresp in the outpatient setting and is not showing improvement with either of these interventions. The patient denies fevers chills or night sweats. He has not had significant lower extremity edema. No hemoptysis. He did have a CT angiogram performed which did not show any evidence of PE. Allergies Allergy/AdvReac Type Severity Reaction Status Date / Time No Known Allergies Allergy Verified 07/10/22 12:00 Home Medications Medication Instructions Recorded Confirmed Type Lactobacills gasseri-Bifidobac 1 cap PO QAM 02/25/19 07/10/22 History bifidum,longum 1.5 billion cell capsule (Probiotic Colon Support) nebulizer accessories #1 ea 12/22/20 07/10/22 Rx cyanocobalamin (vitamin B-12) 1,000 mcg PO HS 03/08/21 07/10/22 History 1,000 mcg tablet (Vitamin B-12) ferrous sulfate 325 mg (65 mg 325 mg PO BID #60 tabs 05/03/21 07/10/22 Rx iron) tablet,delayed release multivitamin with folic acid 400 1 tab PO QAM #30 tabs 05/03/21 07/10/22 Rx mcg tablet (Daily-[place] (with folic acid)) polyethylene glycol 3350 17 gram 17 g PO DAILY PRN constipation #30 05/03/21 0 07/10/22 Rx oral powder packet (Miralax) ea magnesium oxide 400 mg (241.3 mg 400 mg PO QAM 06/17/21 07/10/22 History magnesium) tablet nebulizers (Compact Compressor #1 ea 09/29/21 07/10/22 Rx Nebulizer) sumatriptan succinate 50 mg tablet 50 mg PO Q2H PRN migraine headache 12/08/21 07/10/22 Rx #9 tabs docusate sodium 100 mg capsule 100 mg PO BID PRN Constipation 01/13/22 07/10/22 History Portable Oxygen 03/08/22 07/10/22 History albuterol sulfate 90 mcg/actuation 1 - 2 puff inhalation Q4H PRN 04/19/22 07/10/22 Rx aerosol inhaler Shortness Of Breath #54 grams metoprolol succinate 50 mg 50 mg PO DAILY #90 tabs 04/26/22 07/10/22 Rx tablet,extended release 24 hr furosemide 20 mg tablet (Lasix) 20 mg PO Q OTHER DAY #15 tabs 05/30/22 07/10/22 Rx atorvastatin 40 mg tablet 40 mg PO DAILY 06/20/22 07/10/22 History guaifenesin 600 mg tablet, 600 mg PO Q12 #30 tabs 06/27/22 07/10/22 Rx extended release 12 hr (Mucinex) ipratropium 0.5 mg-albuterol 3 mg 3 ml NEB Q6H #180 mL 06/27/22 07/10/22 Rx (2.5 mg base)/3 mL nebulization soln prednisone 20 mg tablet 20 mg PO QAM #6 tabs 06/27/22 07/10/22 Rx sodium chloride 7 % for 4 ml NEB BIDR #240 mL 06/27/22 07/10/22 Rx nebulization fluticasone 500 mcg-salmeterol 50 1 inh inhalation BID #90 puffs 07/11/22 07/11/22 Rx mcg/dose blistr powdr for inhalation (Advair Diskus) acetaminophen 500 mg tablet 1,000 mg PO Q8H PRN 07/24/22 07/24/22 History ciprofloxacin HCl 500 mg tablet 500 mg PO BID 07/24/22 07/24/22 History oxycodone 5 mg tablet 5 mg PO Q4H PRN 07/24/22 07/24/22 History tiotropium bromide 18 mcg capsule 1 cap inhalation DAILY #90 08/01/22 Rx with inhalation device (Spiriva inhalations with HandiHaler) pregabalin 100 mg capsule 100 mg PO BID #60 caps 08/30/22 Rx Patient History Medical History Acute encephalopathy AMS (altered mental status) Chronic anemia Colitis COPD (chronic obstructive pulmonary disease) Gout Hyperlipidemia Hypertension Incarcerated left inguinal hernia Low back pain Migraine On home oxygen therapy 2-4L continuous Orthostatic hypotension Per records Osteoarthritis Right inguinal hernia Seizure 2018 (no known etiology) 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) Per records Tobacco abuse Tremor R/L hands/feet Surgical History H/O tooth extraction Lower teeth on 04/23/2018 History of colonoscopy History of open reduction and internal fixation (ORIF) procedure FEMUR L Trimalleolar fracture ORIF (04/30/21): LMA#4 + PNB at [facility] (multiple attempts at SAB unsuccessful 2/2 to bone per anesthesia record) S/P foot surgery RT/LEFT (HARDWARE INTACT) Family History Father Hypertension Aneurysm Mother Swelling Uncle Myocardial infarction Other No significant family history Denies family history of Ovarian cancer Prostate cancer Breast cancer Colorectal cancer Social History Smoking Status: Former smoker Tobacco Type: Cigarettes Age Started Using Tobacco: 14; Age Quit Using Tobacco: 69; packs per day: 1; Cigarettes Per Day: quit 2-4 years ago; Second Hand Exposure: No; Do You Dip or Chew Tobacco: No; Hx Alcohol Use: Yes (pt says they quit x5 years ago) Alcohol type: beer Alcohol Intake Frequency Comment: 8+ per day Hx Substance Use: No Preferred Language: Icelandic Communication Ability: Effective Communication Ability Comment: pt intubated and sedated Visual Impairment: Limited Hearing Ability: Normal Infusion Rn Required: No Beliefs That Will Affect Care: None marital status: Current Living Situation: Spouse and Family Current Living Situation Comment: , granddaughter and her , 12 year old boy current occupational status: retired How many Children do You have: 2 Feels Safe at Home: Yes Safety Concerns: Feels Safe At This Time Childhood Exposure to Second-Hand Smoke: Yes Diet: regular Diet Comment: regular caffeine: No during the past year weight has: remained stable Dental Care, Regularly: No Physical Activity Frequency: Does not Exercise Seatbelt Use: always Sunscreen Use: No Assistive Devices: Cane, Oxygen - Continuous, Scooter/Electric Scooter and Walker Review of Systems Review of Systems: All systems reviewed & are unremarkable except as noted in Subjective Physical Exam Constitutional: + frail appearing; + not healthy appearing ENMT: Mouth: + edentulous Neck: trachea midline, no thyromegaly Respiratory: able to speak in complete sentences; no respiratory distress, no labored breathing and not tachypneic Auscultation: no rhonchi and no wheezes Cardiovascular: RRR, no murmur, no edema Musculoskeletal: no cyanosis or clubbing, extremities motor strength 5/5 Ambulates with the assistance of a cane Skin: no rashes, warm and dry Psychiatric: A+Ox3, euthymic affect Lymphatic: no cervical or axillary lymphadenopathy Results & Data Results & Data Vital Signs (Past 12 Hours) Vital Signs Temp Pulse Resp BP BP Pulse Ox Pulse Ox 09/25/22 07:22 36.7 C 90 18 138/88 96 09/25/22 07:08 88 18 96 09/24/22 21:26 09/24/22 21:26 96 09/24/22 21:17 36.6 C 111 H 14 121/89 96 O2 Del Method O2 Del Method O2 Flow Rate O2 Flow Rate 09/25/22 07:22 Nasal Cannula 4 09/25/22 07:08 Nasal Cannula 4 09/24/22 21:26 Nasal Cannula 4 09/24/22 21:26 Nasal Cannula 4 09/24/22 21:17 Nasal Cannula 4 Critical Care Results & Data Vital Signs (Past 12 Hours) Vital Signs Temp Pulse Resp BP BP Pulse Ox Pulse Ox 09/25/22 07:22 36.7 C 90 18 138/88 96 09/25/22 07:08 88 18 96 09/24/22 21:26 09/24/22 21:26 96 09/24/22 21:17 36.6 C 111 H 14 121/89 96 O2 Del Method O2 Del Method O2 Flow Rate O2 Flow Rate 09/25/22 07:22 Nasal Cannula 4 09/25/22 07:08 Nasal Cannula 4 09/24/22 21:26 Nasal Cannula 4 09/24/22 21:26 Nasal Cannula 4 09/24/22 21:17 Nasal Cannula 4 Lab & Micro Results (Past 24 Hours) No Data to Display No Data to Display No Data to Display Diagnostic Findings (Past 24 Hours) Chest CTA 09/24/22 16:41 CT ANGIOGRAPHY OF THE CHEST, PULMONARY EMBOLUS PROTOCOL CLINICAL HISTORY: Shortness of breath. Persistent COPD exacerbation. Evaluate for pulmonary embolus. COMPARISON STUDY: Chest CT September 20, 2021 and chest radiograph September 20, 2022. TECHNIQUE: Following IV administration of 120 mL of Optiray, helical axial images of the chest were obtained utilizing the pulmonary embolus protocol. Maximal intensity projections and sagittal and coronal reformats were viewed on an independent 3D workstation. IV contrast was administered without complication. Automated exposure control was utilized for the study. A dose lowering technique was utilized adhering to the principles of ALARA. CT DOSE: 839.08 mGy.cm FINDINGS: No pulmonary emboli are identified although segmental and subsegme ntal pulmonary arteries within the left lower lobe are suboptimally assessed due to respiratory motion. There is no thoracic aortic dissection. Size the heart is normal. There is no thoracic lymphadenopathy. Emphysema is again noted. There is no consolidation to suggest pneumonia. Bilateral lower lobe bronchial wall thickening with scattered secretions are noted. Similar findings are noted within the right middle lobe. There is no pneumothorax or pleural effusion. No acute fractures within the thorax are noted. A few hypodense hepatic lesions are unchanged from earlier exams. These are benign. Small gallstones within the gallbladder. IMPRESSION: 1. No pulmonary emboli identified although left lower lobe segmental and subsegmental pulmonary arteries suboptimally assessed. 2. No consolidation to suggest pneumonia. Bilateral lower lobe and right middle lobe bronchial wall thickening with secretions. 3. Emphysema. ACT 112: Negative or not required by law. Electronically signed by: Chaitanya Srivastava M.D. 09/24/2022 6:06 PM I & O Totals 24 Hours 09/24/22 09/25/22 09/26/22 06:59 06:59 06:59 Intake Total 150 / 150 950 / 950 Output Total 800 / 800 1550 / 1550 500 / 500 Balance -650 / -650 -600 / -600 -500 / -500 Cumulative 09/20/22 09:59 thru 09/25/22 07:22 Intake Total 1900 Output Total 5051 Balance -3151 RT Ventilator Mngmt (Last Documented) Ventilator Ordered Settings Respiratory Rate 18 09/25/22 07:22 Ventilator - PT Measurements Respiratory Rate 18 PG Care Time/CCT Total # of Minutes Spent Total Time Spent with Patient: Total time spent is greater than 50% in coordination of care (as documented) at patient's floor/unit and/or counseling patient: Coding Level of Care Code 15990 INT INP/OBS CARE MIN Diagnoses Respiratory failure with hypoxia and hypercapnia J96.91; J96.92 Acute exacerbation of chronic obstructive pulmonary disease J44.1 Acute dyspnea R06.00
[2022-09-25] MEDS ORDERED: FLUTICASONE/VILANTEROL 200/25MCG 14 PUFFS/INHALER INH SCH (09:00)
[2022-09-25] MEDS: FORMOTEROL 20 MCG/2 ML VIAL NEB SCH ×2 (10:03→20:16)
[2022-09-25] MEDS: ENOXAPARIN INJ 40 MG/0.4 ML SYR SQ SCH (15:03)
--- NOTE | 2022-09-25 16:17 | Hospitalist Progress Note ---
Date of Service September 25, 2022 Assessment & Plan (1) Acute exacerbation of chronic obstructive pulmonary disease (COPD): Plan: Patient with exacerbation of severe obstructive lung disease and chronic hypoxemic and hypercarbic respiratory failure secondary to COPD on 4 L baseline oxygen, BPH with LUTS, superior mesenteric artery aneurysm, chronic venous stasis, arthritis Acute on chronic COPD exacerbation, chronic hypercapnia Advanced COPD, follows with pulmonology. Seen in consultation with Dr. Dominguez changed to performance of budesonide with DuoNebs every 4 times daily currently continuing Incruse prednisone Currently back at 4 L of oxygen but severely dyspneic Continue Mucinex, hypertonic saline. +Mucomyst if adjunct required. Doxy 100mg BID for poss bronchitis and COPD exacerbation, Steroids tapered to prednisone 40 mg on 09/25/2022 Hypertension Continue metoprolol, Lasix daily Echo 08/2021: Grade 1 diastolic dysfunction, no wall motion abnormalities, preserved EF Chronic anemia Hemoglobin at baseline, no acute bleeding Patient on ferrous sulfate which darkens to stool SMA aneurysm Outpatient follow-up, no acute management at this time Leg swelling Chronic, near normal baseline with some paresthesias in the thighs currently effective cor pulmonale Dopplers ordered while in ER with no evidence of DVT. Patient notes he ambulates regularly and has not had any calf pain or leg asymmetry -Lasix continued DVT prophylaxis: Lovenox Diet: low-sodium CODE STATUS: Full code (2) BPH loc w urin obs/LUTS: (3) Superior mesenteric artery aneurysm: Admission and Anticipated Discharge Date Admission Date: September 24, 2022 Subjective Patient still having difficulty with shortness of breath pursed lip breathing and difficulty with conversation becoming short of breath. Was seen in consultation by pulmonary critical care on 626 Physical Exam Physical Exam: Patient with a loose productive cough of white sputum pursed lip breathing using accessory muscles even when sitting in bed does get dyspneic with conversation is angry regarding his living situation at this time has persistent lower extremity edema to the thigh and occasional discomfort to his thighs which sounds to be neuropathic Results & Data Results & Data Vital Signs (Past 12 Hours) Vital Signs Temp Pulse Resp BP BP Pulse Ox O2 Del Method 09/25/22 15:14 98.3 F 93 H 18 111/76 95 Nasal Cannula 09/25/22 15:13 96 H 18 95 Nasal Cannula 09/25/22 10:10 88 16 96 Nasal Cannula 09/25/22 08:00 Nasal Cannula 09/25/22 07:22 98.1 F 90 18 138/88 96 Nasal Cannula 09/25/22 07:08 88 18 96 Nasal Cannula O2 Flow Rate 09/25/22 15:14 4 09/25/22 15:13 4 09/25/22 10:10 4 09/25/22 08:00 4 09/25/22 07:22 4 09/25/22 07:08 4 PG Care Time/CCT Total # of Minutes Spent Total Time Spent with Patient: Total time spent is greater than 50% in coordination of care (as documented) at patient's floor/unit and/or counseling patient: Coding Level of Care Code 56325 SUB INP/OBS CARE 2/35MIN Diagnoses Acute exacerbation of chronic obstructive pulmonary disease (COPD) J44.1 BPH loc w urin obs/LUTS N40.1 Superior mesenteric artery aneurysm I72.8
[2022-09-25] MEDS: TAMSULOSIN HCL 0.4 MG CAP PO SCH (20:10)
[2022-09-25] MEDS: BUDESONIDE 0.5 MG/2 ML VIAL (PULMICORT) NEB SCH (20:16)
[2022-09-26] MEDS: FORMOTEROL 20 MCG/2 ML VIAL NEB SCH ×2 (07:17→19:46)
[2022-09-26] MEDS: BUDESONIDE 0.5 MG/2 ML VIAL (PULMICORT) NEB SCH ×2 (07:17→19:46)
[2022-09-26] MEDS: ALBUT/IPRATROP 3MG/0.5MG NEB 3 ML VIAL NEB SCH ×4 (07:17→19:47)
[2022-09-26] MEDS: SODIUM CHLOR 7% 4 ML NEB NEB SCH ×2 (07:17→19:46)
[2022-09-26] MEDS: MAGNESIUM OXIDE 400 MG TAB PO SCH (08:13)
[2022-09-26] MEDS: FUROSEMIDE 40 MG TAB PO SCH (08:13)
[2022-09-26] MEDS: ATORVASTATIN 40 MG TAB PO SCH (08:13)
[2022-09-26] MEDS: guaiFENesin 600 MG TABCR PO SCH ×2 (08:14→20:59)
[2022-09-26] MEDS: UMECLIDINIUM BROMIDE 62.5MCG/BLISTER 7 PUFFS/INHALER INH SCH (08:14)
[2022-09-26] MEDS: DOXYCYCLINE HYCLATE 100 MG CAP PO SCH ×2 (08:14→20:59)
[2022-09-26] MEDS: FINASTERIDE 5 MG TAB PO SCH (08:14)
[2022-09-26] MEDS: METOPROLOL SUCC 50MG EXT REL TAB PO SCH (08:14)
[2022-09-26] MEDS: predniSONE 20 MG TAB PO SCH (08:14)
[2022-09-26] MEDS: ACETAMINOPHEN 325 MG TAB PO PRN (08:18)
[2022-09-26] MEDS: PREGABALIN 100 MG CAP PO SCH ×2 (08:18→20:59)
--- NOTE | 2022-09-26 08:37 | Pulmonology Progress Note ---
Date of Service September 26, 2022 Assessment & Plan (1) Respiratory failure with hypoxia and hypercapnia: (2) Acute exacerbation of chronic obstructive pulmonary disease: (3) Acute dyspnea: Plan Impression: 70-year-old male with very severe obstructive lung disease and chronic hypoxemic and hypercarbic respiratory failure admitted with exacerbation. The patient has been on chronic prednisone at home. He is failed a trial of noninvasive positive pressure ventilation at night. He was attempted on a trial of Daliresp however medication was too expensive for the patient to consider. He has failed chronic azithromycin in the outpatient setting. He is improved with transition to nebulized therapies. Recommendations: 1. Hypercarbic respiratory failure: The patient is not tolerated nocturnal AVAPS previously. He appears compensated. No indication for noninvasive positive pressure ventilation currently. 2. Acute exacerbation of COPD: This point in time would complete 5 days of prednisone 40 mg a day as well as doxycycline 100 mg twice daily for 5 days. Would discharge the patient on the following: Perforomist 20 mcg nebulized twice a day Budesonide 0.5 mg nebulized twice a day DuoNebs as needed up to 4 times a day Hypertonic saline nebulized for mL twice a day Mucinex 1200 mg twice a day Incruse 1 puff daily 3. Pulmonary rehab may also be a consideration at discharge patient will need to demonstrate clinical stability before consideration 4. Continue oxygen to keep saturations at or above 88%. Would not try and target oxygen saturations greater than 90% in this patient given his hypercarbia. 5. Patient was encouraged to remain out of bed up to the chair as much as possible. This will improve his respiratory mechanics. Patient was advised that he does have advanced lung disease. We are not going to be able to reverse his significant airflow obstruction at this point time. We could consider referral to a tertiary center for investigational therapies including bronchial denervation if the patient stabilizes. Will continue to follow with you. Patient may be approaching discharge and may be eligible to dismiss from the hospital in the next 24 hours. We will arrange for outpatient pulmonary follow-up Admission and Anticipated Discharge Date Admission Date: September 24, 2022 Subjective Patient seen and examined. EMR reviewed. The patient reports that he is breathing better. He thinks the nebulized ther apies are improving his respiratory status. He was able to walk but did become fatigued yesterday. He has not had fevers or chills overnight. He is tolerating a diet. He denies any chest pain or significant lower extremity edema. Review of Systems Review of Systems: All systems reviewed & are unremarkable except as noted in Subjective Physical Exam Constitutional: + frail appearing; + not healthy appearing ENMT: Mouth: + edentulous Neck: trachea midline, no thyromegaly Respiratory: able to speak in complete sentences; no respiratory distress, no labored breathing and not tachypneic Auscultation: + wheezes; no rhonchi Cardiovascular: RRR, no murmur, no edema Musculoskeletal: no cyanosis or clubbing, extremities motor strength 5/5 Skin: no rashes, warm and dry Psychiatric: A+Ox3, euthymic affect Lymphatic: no cervical or axillary lymphadenopathy Results & Data Results & Data Vital Signs (Past 12 Hours) Vital Signs Temp Pulse Resp BP BP Pulse Ox O2 Del Method 09/26/22 07:53 Nasal Cannula 09/26/22 07:19 86 18 99 Nasal Cannula 09/26/22 07:10 36.4 C L 69 18 127/82 100 Nasal Cannula 09/25/22 20:51 36.8 C 96 H 18 136/87 96 Nasal Cannula O2 Flow Rate 09/26/22 07:53 4 09/26/22 07:19 5 09/26/22 07:10 5 09/25/22 20:51 4 Laboratory Results 09/24/22 06:08 09/23/22 06:43 Diagnostic Findings No new imaging PG Care Time/CCT Total # of Minutes Spent Total Time Spent with Patient: Total time spent is greater than 50% in coordination of care (as documented) at patient's floor/unit and/or counseling patient: Coding Level of Care Code 74017 SUB INP/OBS CARE 2/35MIN Diagnoses Respiratory failure with hypoxia and hypercapnia J96.91; J96.92 Acute exacerbation of chronic obstructive pulmonary disease J44.1 Acute dyspnea R06.00
--- NOTE | 2022-09-26 15:08 | Hospitalist Progress Note ---
Date of Service September 26, 2022 Assessment & Plan (1) Acute exacerbation of chronic obstructive pulmonary disease (COPD): Plan: Patient with exacerbation of severe obstructive lung disease and chronic hypoxemic and hypercarbic respiratory failure secondary to COPD on 4 L baseline oxygen, BPH with LUTS, superior mesenteric artery aneurysm, chronic venous stasis, arthritis Acute on chronic COPD exacerbation, chronic hypercapnia Advanced COPD, follows with pulmonology. Seen in consultation with Dr. Dominguez changed to formoterol and Budesonide with DuoNebs every 4 times daily currently continuing Incruse prednisone Currently back at 4 L of oxygen but severely dyspneic Continue Mucinex, hypertonic saline. +Mucomyst if adjunct required. Doxy 100mg BID for poss bronchitis and COPD exacerbation, Steroids tapered to prednisone 40 mg on 09/25/2022 Hypertension Continue metoprolol, Lasix daily Echo 08/2021: Grade 1 diastolic dysfunction, no wall motion abnormalities, preserved EF Chronic anemia Hemoglobin at baseline, no acute bleeding Patient on ferrous sulfate which darkens to stool SMA aneurysm Outpatient follow-up, no acute management at this time Leg swelling Chronic, near normal baseline with some paresthesias in the thighs currently effective cor pulmonale Dopplers ordered while in ER with no evidence of DVT. Patient notes he ambulates regularly and has not had any calf pain or leg asymmetry -Lasix continued DVT prophylaxis: Lovenox Diet: low-sodium CODE STATUS: Full code (2) BPH loc w urin obs/LUTS: (3) Superior mesenteric artery aneurysm: Admission and Anticipated Discharge Date Admission Date: September 24, 2022 Subjective The patient reports that he is breathing better. He thinks the nebulized therapies are improving his respiratory status. He feels on this rate one more day may be enough to get him home Physical Exam Physical Exam: Patient with a loose productive cough of white sputum continues with pursed lip breathing using accessory muscles even when sitting in bed does get dyspneic with conversation is angry regarding his living situation at this time has persistent lower extremity edema to the thigh and occasional discomfort to his thighs which sounds to be neuropathic Results & Data Results & Data Vital Signs (Past 12 Hours) Vital Signs Temp Pulse Resp BP Pulse Ox O2 Del Method O2 Flow Rate 09/26/22 11:12 87 22 96 Nasal Cannula 4 09/26/22 07:53 Nasal Cannula 4 09/26/22 07:19 86 18 99 Nasal Cannula 5 09/26/22 07:10 97.5 F L 69 18 127/82 100 Nasal Cannula 5 PG Care Time/CCT Total # of Minutes Spent Total Time Spent with Patient: Total time spent is greater than 50% in coordination of care (as documented) at patient's floor/unit and/or counseling patient: Coding Level of Care Code 02454 SUB INP/OBS CARE 2/35MIN Diagnoses Acute exacerbation of chronic obstructive pulmonary disease (COPD) J44.1 BPH loc w urin obs/LUTS N40.1 Superior mesenteric artery aneurysm I72.8
[2022-09-26] MEDS: ENOXAPARIN INJ 40 MG/0.4 ML SYR SQ SCH (16:30)
[2022-09-26] MEDS: TAMSULOSIN HCL 0.4 MG CAP PO SCH (20:59)
[2022-09-27] MEDS: SODIUM CHLOR 7% 4 ML NEB NEB SCH ×2 (06:56→19:20)
[2022-09-27] MEDS: FORMOTEROL 20 MCG/2 ML VIAL NEB SCH ×2 (06:56→19:20)
[2022-09-27] MEDS: ALBUT/IPRATROP 3MG/0.5MG NEB 3 ML VIAL NEB SCH ×4 (06:56→19:35)
[2022-09-27] MEDS: BUDESONIDE 0.5 MG/2 ML VIAL (PULMICORT) NEB SCH ×2 (06:57→19:20)
[2022-09-27] MEDS: UMECLIDINIUM BROMIDE 62.5MCG/BLISTER 7 PUFFS/INHALER INH SCH (08:18)
[2022-09-27] MEDS: FINASTERIDE 5 MG TAB PO SCH (08:19)
[2022-09-27] MEDS: predniSONE 10 MG TABLET PO SCH (08:19)
[2022-09-27] MEDS: guaiFENesin 600 MG TABCR PO SCH ×2 (08:19→20:10)
[2022-09-27] MEDS: MAGNESIUM OXIDE 400 MG TAB PO SCH (08:19)
[2022-09-27] MEDS: FUROSEMIDE 40 MG TAB PO SCH (08:20)
[2022-09-27] MEDS: METOPROLOL SUCC 50MG EXT REL TAB PO SCH (08:20)
[2022-09-27] MEDS: ATORVASTATIN 40 MG TAB PO SCH (08:20)
[2022-09-27] MEDS: DOXYCYCLINE HYCLATE 100 MG CAP PO SCH ×2 (08:21→20:10)
[2022-09-27] MEDS: PREGABALIN 100 MG CAP PO SCH ×2 (08:24→20:10)
--- NOTE | 2022-09-27 12:55 | Pulmonology Progress Note ---
Date of Service September 27, 2022 Assessment & Plan (1) Respiratory failure with hypoxia and hypercapnia: (2) Acute exacerbation of chronic obstructive pulmonary disease: (3) Acute dyspnea: Plan Impression: 70-year-old male with very severe obstructive lung disease and chronic hypoxemic and hypercarbic respiratory failure admitted with exacerbation. The patient has been on chronic prednisone at home. He is failed a trial of noninvasive positive pressure ventilation at night. He was attempted on a trial of Daliresp however medication was too expensive for the patient to consider. He has failed chronic azithromycin in the outpatient setting. He is improved with transition to nebulized therapies. Recommendations: 1. Hypercarbic respiratory failure: The patient is not tolerated nocturnal AVAPS previously. He appears compensated. No indication for noninvasive positive pressure ventilation currently. 2. Acute exacerbation of COPD: This point in time would complete 5 days of prednisone 40 mg a day as well as doxycycline 100 mg twice daily for 5 days. Would discharge the patient on the following: Perforomist 20 mcg nebulized twice a day Budesonide 0.5 mg nebulized twice a day DuoNebs as needed up to 4 times a day Hypertonic saline nebulized for mL twice a day Mucinex 1200 mg twice a day Incruse 1 puff daily 3. Pulmonary rehab may also be a consideration at discharge patient will need to demonstrate clinical stability before consideration 4. Continue oxygen to keep saturations at or above 88%. Would not try and target oxygen saturations greater than 90% in this patient given his hypercarbia. 5. Patient was encouraged to remain out of bed up to the chair as much as possible. This will improve his respiratory mechanics. Patient was advised that he does have advanced lung disease. The patient continues to decline, palliative care might be appropriate. Could use medications to try and treat the patient's underlying dyspnea. Discussed with patient and hospitalist at bedside. The patient will likely be dismissed from the hospital soon. He can follow-up in the pulmonary clinic with one of our PAs in the next week or so. Pulmonary will sign off. Feel free to contact us with questions or concerns Admission and Anticipated Discharge Date Admission Date: September 24, 2022 Subjective Patient seen and examined. EMR reviewed. The patient reports that he is feeling better. He is coughing less. He states he has been up to the chair and ambulating and has done reasonably well. He is able to cough and expectorate phlegm. Review of Systems Review of Systems: All systems reviewed & are unremarkable except as noted in Subjective Physical Exam Constitutional: + frail appearing; + not healthy appearing ENMT: Mouth: + edentulous Neck: trachea midline, no thyromegaly Respiratory: able to speak in complete sentences; no respiratory distress, no labored breathing and not tachypneic Auscultation: no rhonchi and no wheezes Cardiovascular: RRR, no murmur, no edema Musculoskeletal: no cyanosis or clubbing, extremities motor strength 5/5 Skin: no rashes, warm and dry Psychiatric: A+Ox3, euthymic affect Lymphatic: no cervical or axillary lymphadenopathy Results & Data Results & Data Vital Signs (Past 12 Hours) Vital Signs Temp Pulse Pulse Resp BP BP Pulse Ox 09/27/22 12:47 36.6 C 79 77 18 126/78 115/84 95 09/27/22 10:37 79 18 95 09/27/22 07:35 09/27/22 07:38 36.6 C 77 16 126/78 100 09/27/22 06:58 77 18 95 O2 Del Method O2 Flow Rate 09/27/22 12:47 09/27/22 10:37 Nasal Cannula 4 09/27/22 07:35 Nasal Cannula 4 09/27/22 07:38 Nasal Cannula 4 09/27/22 06:58 Nasal Cannula 4 Laboratory Results 09/24/22 06:08 09/23/22 06:43 Diagnostic Findings No new imaging PG Care Time/CCT Total # of Minutes Spent Total Time Spent with Patient: Total time spent is greater than 50% in coordination of care (as documented) at patient's floor/unit and/or counseling patient: Coding Level of Care Code 83333 SUB INP/OBS CARE 2/35MIN Diagnoses Respiratory failure with hypoxia and hypercapnia J96.91; J96.92 Acute exacerbation of chronic obstructive pulmonary disease J44.1 Acute dyspnea R06.00
[2022-09-27] MEDS: ENOXAPARIN INJ 40 MG/0.4 ML SYR SQ SCH (16:38)
--- NOTE | 2022-09-27 17:54 | Hospitalist Progress Note ---
Date of Service September 27, 2022 Assessment & Plan (1) Acute exacerbation of chronic obstructive pulmonary disease (COPD): Plan: Patient with exacerbation of severe obstructive lung disease and chronic hypoxemic and hypercarbic respiratory failure secondary to COPD on 4 L baseline oxygen, BPH with LUTS, superior mesenteric artery aneurysm, chronic venous stasis, arthritis Acute on chronic COPD exacerbation, chronic hypercapnia Advanced COPD, follows with pulmonology. Seen in consultation with Dr. Dominguez changed to formoterol and Budesonide with DuoNebs every 4 times daily currently continuing Incruse prednisone Difficult time coordinating medications for home as his typical pharmacy does not have many of them. With the help of case management we are able to send DuoNebs forMoterol budesonide to [facility], on the [address] and they will be covered under his insurance however his 7% saline is not covered and the patient need to pay [id number] for that Currently back at 4 L of oxygen but severely dyspneic prednisone 30 mg on 09/27/2022 at discharge patient return to his chronic daily prednisone of 20 Hypertension Continue metoprolol, Lasix daily Echo 08/2021: Grade 1 diastolic dysfunction, no wall motion abnormalities, preserved EF Chronic anemia Hemoglobin at baseline, no acute bleeding Patient on ferrous sulfate which darkens to stool SMA aneurysm Outpatient follow-up, no acute management at this time Leg swelling Chronic, near normal baseline with some paresthesias in the thighs currently effective cor pulmonale Dopplers ordered while in ER with no evidence of DVT. Patient notes he ambulates regularly and has not had any calf pain or leg asymmetry -Lasix continued, home dosing amended DVT prophylaxis: Lovenox Diet: low-sodium CODE STATUS: Full code (2) BPH loc w urin obs/LUTS: (3) Superior mesenteric artery aneurysm: Admission and Anticipated Discharge Date Admission Date: September 24, 2022 Subjective pt was scheduled to go home but family cannot picker tender today respiratory status is chronicly significant and stable Physical Exam Physical Exam: Patient with cough little sputum production. pt is stable in regard to chronic shortness of breath no wheezes, does have fair air movement at bases lower extremity edema persists Results & Data Results & Data Vital Signs (Past 12 Hours) Vital Signs Temp Pulse Pulse Resp BP BP Pulse Ox 09/27/22 15:57 98.2 F 101 H 18 126/78 97 06/28/23 14:34 82 18 94 09/27/22 12:47 97.9 F 79 77 18 126/78 115/84 95 09/27/22 10:37 79 18 95 09/27/22 07:35 09/27/22 07:38 97.9 F 77 16 126/78 100 09/27/22 06:58 77 18 95 O2 Del Method O2 Flow Rate 09/27/22 15:57 Nasal Cannula 4 09/27/22 14:34 Nasal Cannula 4 09/27/22 12:47 09/27/22 10:37 Nasal Cannula 4 09/27/22 07:35 Nasal Cannula 4 09/27/22 07:38 Nasal Cannula 4 09/27/22 06:58 Nasal Cannula 4 PG Care Time/CCT Total # of Minutes Spent Total Time Spent with Patient: Total time spent is greater than 50% in coordination of care (as documented) at patient's floor/unit and/or counseling patient: Coding Level of Care Code 93989 SUB INP/OBS CARE 2/35MIN Diagnoses Acute exacerbation of chronic obstructive pulmonary disease (COPD) J44.1 BPH loc w urin obs/LUTS N40.1 Superior mesenteric artery aneurysm I72.8
[2022-09-27] MEDS: TAMSULOSIN HCL 0.4 MG CAP PO SCH (20:10)
[2022-09-28] MEDS: FORMOTEROL 20 MCG/2 ML VIAL NEB SCH (07:09)
[2022-09-28] MEDS: BUDESONIDE 0.5 MG/2 ML VIAL (PULMICORT) NEB SCH (07:09)
[2022-09-28] MEDS: ALBUT/IPRATROP 3MG/0.5MG NEB 3 ML VIAL NEB SCH ×3 (07:09→15:07)
[2022-09-28] MEDS: SODIUM CHLOR 7% 4 ML NEB NEB SCH (07:17)
[2022-09-28] MEDS: METOPROLOL SUCC 50MG EXT REL TAB PO SCH (08:29)
[2022-09-28] MEDS: UMECLIDINIUM BROMIDE 62.5MCG/BLISTER 7 PUFFS/INHALER INH SCH (08:29)
[2022-09-28] MEDS: PREGABALIN 100 MG CAP PO SCH (08:29)
[2022-09-28] MEDS: MAGNESIUM OXIDE 400 MG TAB PO SCH (08:30)
[2022-09-28] MEDS: ATORVASTATIN 40 MG TAB PO SCH (08:30)
[2022-09-28] MEDS: guaiFENesin 600 MG TABCR PO SCH (08:30)
[2022-09-28] MEDS: FUROSEMIDE 40 MG TAB PO SCH (08:30)
[2022-09-28] MEDS: predniSONE 10 MG TABLET PO SCH (08:30)
[2022-09-28] MEDS: DOXYCYCLINE HYCLATE 100 MG CAP PO SCH (08:30)
[2022-09-28] MEDS: FINASTERIDE 5 MG TAB PO SCH (08:30)
--- NOTE | 2022-09-28 12:03 | Discharge Summary ---
Date of Service September 28, 2022 Admission HPI Per Admitting Provider Lauro is a 71-year-old male with a history of chronic respiratory failure 2/2 COPD on 4 L baseline oxygen, BPH with LUTS, superior mesenteric artery aneurysm, chronic venous stasis, arthritis who presents with 1 day of severely increased shortness of breath and wheezing, productive cough for marte-colored sputum. Lauro is seen at the bedside. He reports for about a day and a half he has had significantly increased white/marte sputum production, increased shortness of breath from his baseline, has needed to be on more oxygen around 5 L from his normal 4, and is much more fatigued moving from the bedside to the bathroom to the point that he is unable to do this on his own at home. Reports that this feels similar to prior exacerbations and notes "they need to wake me up every 4 hours so that I can cough this shit out "as the every 4 hours nebulizers have worked very well for him in the past. He denies fever, chills, sweats. Endorses that he has some sharp pain in his ribs around twice a week, none today or prior. Other than this he has had no chest pain, chest pressure, neck pain, or neck pressure. He did take his morning medications, although does not remember what medications this was. Denies medication changes since his last discharge. Endorses some bilateral leg swelling when he is on his feet, denies asymmetric leg swelling. Reports he is overall much more short of breath than normal but this is not worsened by laying flat. He reports he has some tingling in his thighs, but not numbness. Reports he does use 1 puffer every day and another 1 many times a day as needed, but was not helping every 4 hours and did not have enough of this to use more often notes the pharmacy has an up-to-date list, this is attempting to be reconciled at time of bedside visit. Denies medication allergies. Full code Medical History: Reviewed Medications: Reviewed Surgical History: Reviewed Family history: Reviewed Allergies: Reviewed Social History: Reviewed Code Status: Full code, discussed with patient at bedside Principal Diagnosis COPD exacerbation Discharge Exam pt is stable in regard to chronic shortness of breath no wheezes, does have fair air movement at bases lower extremity edema persists Discharge Data Allergies Allergy/AdvReac Type Severity Reaction Status Date / Time No Known Allergies Allergy Verified 07/10/22 12:00 Consultations 06/21/23 13:12 ED Decision to Admit Stat 09/25/22 07:03 Consult Pulmonology Routine Ordered Studies 09/20/22 13:12 US venous doppler LE BI Stat 09/24/22 16:41 CT angio chest PE protocol Routine Hospital Course (1) Acute exacerbation of chronic obstructive pulmonary disease (COPD): Patient with exacerbation of severe obstructive lung disease and chronic hypoxemic and hypercarbic respiratory failure secondary to COPD on 4 L baseline oxygen, BPH with LUTS, superior mesenteric artery aneurysm, chronic venous stasis, arthritis Acute on chronic COPD exacerbation, chronic hypercapnia Advanced COPD, follows with pulmonology. Seen in consultation with Dr. Dominguez changed to formoterol and Budesonide with DuoNebs every 4 times daily currently continuing Incruse prednisone Difficult time coordinating medications for home as his typical pharmacy does n ot have many of them. With the help of case management we are able to send DuoNebs forMoterol bud[facility]ide to [facility] and they will be covered under his insurance however his 7% saline is not covered and the patient need to pay [id number] for that Currently back at 4 L of oxygen but severely dyspneic -Tapered prednisone, patient return to his chronic daily prednisone of 20mg at discharge. Hypertension Continue metoprolol, Lasix daily Echo 08/2021: Grade 1 diastolic dysfunction, no wall motion abnormalities, preserved EF Chronic anemia Hemoglobin at baseline, no acute bleeding Patient on ferrous sulfate which darkens to stool SMA aneurysm Outpatient follow-up, no acute management at this time Leg swelling Chronic, near normal baseline with some paresthesias in the thighs currently effective cor pulmonale Dopplers ordered while in ER with no evidence of DVT. Patient notes he ambulates regularly and has not had any calf pain or leg asymmetry -Lasix continued, home dosing amended DVT prophylaxis: Lovenox Diet: low-sodium CODE STATUS: Full code (2) BPH loc w urin obs/LUTS: (3) Superior mesenteric artery aneurysm: Total Time Total Time Spent Total Time Spent (In Minutes): 32 Discharge Plan Discharge Items Patient Disposition: Home - Home Health Services Reason For Visit: AOC COPD EXACERBATION Discharge Diagnosis: copd exacerbation Activity: Per Instructions section Activity Comment: carefully increase activity Non-emergency contact: Primary Care Provider and Handle Machine Operator Call non-emergency contact if: your symptoms worsen Follow-up/Referrals: Russell Dang DO [Primary Care Provider] - 10/09/22 11:00 am Rich Dominguez MD [Physician] - 10/04/22 9:00 am Diet: Regular Addtl Attending Provider Instructions: there has been a conversion of your medications to mist/nebulized format, please note the changes and use your nebulizer for the time being, Dr Dominguez will advise when to transition to your regular inhalers in the future if possible . Recommend followup with PCP in 1-2 weeks. Recommend followup with Dr. Dominguez as stated above. Pending Studies at Discharge: No Stand-Alone Forms: My [facility] [employer], Smoking Cessation Medications and DC Order Prescriptions: New tamsulosin 0.4 mg Capsule 0.4 mg PO HS Qty: 30 4RF sodium chloride 7 % solution for nebulization 1 inh inhalation BID Qty: 120 0RF formoterol fumarate [Perforomist] 20 mcg/2 mL solution for nebulization 2 ml inhalation BID Qty: 60 0RF budesonide 0.5 mg/2 mL suspension for nebulization 0.5 mg inhalation BID Qty: 60 0RF ipratropium-albuterol 0.5 mg-3 mg(2.5 mg base)/3 mL solution for nebulization 3 ml inhalation QID PRN (Reason: wheezing) Qty: 180 3RF Continued sumatriptan succinate 50 mg tablet 50 mg PO Q2H MDD 4 tablets/24hrs PRN (Reason: migraine headache) Qty: 9 5RF albuterol sulfate 90 mcg/actuation HFA aerosol inhaler 1 - 2 puff INHALATION Q4H PRN (Reason: Shortness Of Breath) Qty: 54 5RF metoprolol succinate 50 mg tablet extended release 24 hr 50 mg PO DAILY Qty: 90 3RF Rx Instructions: TAKE 1 TABLET BY MOUTH ONCE DAILY Spiriva with HandiHaler 18 mcg capsule, w/inhalation device 1 cap inhalation DAILY Qty: 90 3RF Rx Instructions: puncture 1 cap using device; one dose = 2 inhalations pregabalin 100 mg capsule 100 mg PO BID Qty: 60 2RF (DME) nebulizer accessories Kit See Rx Instructions .ROUTE .MEDSUPPLY Qty: 1 0RF Rx Instructions: As directed (DME) Compact Compressor Nebulizer Misc See Rx Instructions .Route Qty: 1 0RF Rx Instructions: As directed acetaminophen 500 mg tablet 1,000 mg PO Q8H PRN Rx Instructions: x 3 days then 1 cap every 4 hours as need for pain. Do not exceed 3000mg acetaminophen every 24 hours. oxycodone 5 mg tablet 5 mg PO Q4H PRN (DME) Portable Oxygen Misc See Rx Instructions .Route Rx Instructions: As directed Probiotic Colon Support 1.5 billion cell Capsule 1 cap PO QAM ferrous sulfate 325 mg (65 mg iron) tablet,delayed release (DR/EC) 325 mg PO BID Qty: 60 0RF polyethylene glycol 3350 [Miralax] 17 gram powder in packet 17 g PO DAILY PRN (Reason: constipation) Qty: 30 0RF multivitamin with folic acid [Daily-[place] (with folic acid)] 400 mcg Tablet 1 tab PO QAM Qty: 30 0RF magnesium oxide 400 mg (241.3 mg magnesium) tablet 400 mg PO QAM cyanocobalamin (vitamin B-12) [Vitamin B-12] 1,000 mcg Tablet 1,000 mcg PO HS docusate sodium 100 mg capsule 100 mg PO BID PRN (Reason: Constipation) atorvastatin 40 mg tablet 40 mg PO DAILY prednisone 20 mg Tablet 20 mg PO QAM Qty: 6 0RF Rx Instructions: please take 2 tablets in AM with food 06/28/22 then one tablet with food for the next 4 days 06/29/22 to 07/02/22 and stop guaifenesin [Mucinex] 600 mg Tablet Extended Release 12hr 600 mg PO Q12 Qty: 30 0RF sodium chloride 7 % Solution For Nebulization 4 ml NEB BIDR Qty: 240 0RF Rx Instructions: mix with Duoneb and use BID in nebulizer Changed furosemide [Lasix] 20 mg tablet 40 mg PO Q OTHER DAY Qty: 60 5RF Held fluticasone propion-salmeterol [Advair Diskus] 500-50 mcg/dose blister with device 1 inh inhalation BID Qty: 90 3RF Hold Instructions: Resume on 11/01/22. Discontinued ciprofloxacin HCl 500 mg tablet 500 mg PO BID Rx Instructions: x 2 days ipratropium-albuterol 0.5 mg-3 mg(2.5 mg base)/3 mL Solution For Nebulization 3 ml NEB Q6H Qty: 180 0RF Discharge Orders: Discharge Order (Routine); Ordered 06/29/23 Ordered By: Rey Cardozo/Other Patient Handouts: Preventing Deep Vein Thrombosis Admission Data Admit Date/Time: 09/24/22 08:31 Attending Provider: Rey Paz Admit Provider: Jakob Taveras Primary Care Provider: Russell Dang Other Providers: Jakob Taveras ; Rich Dominguez Other Interventions: Discharge Summary Assessment (RN) Last Done: 09/27/22 12:47 Coding Level of Care Code 13567 INP/OBS DISCH >30 MIN Diagnoses Acute exacerbation of chronic obstructive pulmonary disease (COPD) J44.1 BPH loc w urin obs/LUTS N40.1 Superior mesenteric artery aneurysm I72.8
[2022-09-28] MEDS: ENOXAPARIN INJ 40 MG/0.4 ML SYR SQ SCH (13:29)
== END 2022-09-28 15:45 | disposition home health service (06) | DRG 190 ==
LOC: 3W 10:12 → ED 10:12 → SUATTDRO 14:05 → 3W 14:52 → SUATTDRO 09-24 08:31

== ENCOUNTER 2022-11-04 19:20 | Inpatient (IN) ==
--- NOTE | 2022-11-04 19:49 | XRay Report ---
SINGLE VIEW CHEST CLINICAL HISTORY: Dyspnea FINDINGS: An AP, portable, upright chest radiograph is compared to study dated 09/20/2022 and correlat ed with chest CT dated 09/24/2022. The heart is mildly enlarged noting atherosclerotic calcification o f the thoracic aorta. The pulmonary vasculature is noncongested. Emphysema and chronic interstitial t hickening is similar to previous. There is bibasilar scarring/atelectasis. No airspace consolidation or large pleural effusion is identified. No pneumothorax is seen. The skeletal structures are osteope pranay. The bony thorax is grossly intact. IMPRESSION: Cardiomegaly and emphysema with no acute cardiopulmonary abnormality identified. ACT 112: Negative or not required by law. Electronically signed by: Jack Santamaria M.D. 11/04/2022 7:48 PM
[2022-11-04 19:59] LABS: Base Excess VBG 11.6 mEq/L; HCO3 VBG 40 mmol/L; Oxygen Saturation VBG 67.2 %; PCO2 VBG 69 mmHg (38-50); PO2 VBG 41 mmHg; pH VBG 7.37 (7.36-7.41)
[2022-11-04 20:01] LABS: Basophils # (auto) 0.07 K/uL (0-0.2); Basophils % (auto) 0.5 %; Eosinophils # (auto) 1.75 K/uL (0-0.50); Eosinophils % (auto) 13.5 %; Hematocrit (blood only) 39.3 % (42.0-52.0); Hemoglobin 12.1 g/dl (14.0-18.0); Immature Granulocytes # (auto) 0.04 K/uL (0.01-0.20); Immature Granulocytes % (auto) 0.3 %; Lymphocytes # (auto) 1.18 K/uL (1.2-3.4); Lymphocytes % (auto) 9.1 %; Mean Corpuscular Hgb Conc 30.8 g/dL (32.0-36.0); Mean Corpuscular Volume 87.7 fL (80.0-100.0); Mean Platelet Volume 10.3 fL (9.4-12.4); Monocytes # (auto) 0.81 K/uL (0.11-0.59); Monocytes % (auto) 6.2 %; Neutrophils # (auto) 9.13 K/uL (1.40-6.50); Neutrophils % (auto) 70.4 %; Platelet Count 250 K/uL (130-400); RDW Coefficient of Variation 15.2 % (11.5-14.5); RDW Standard Deviation 49.1 fL (36.4-46.3); Red Blood Count 4.48 M/uL (4.70-6.10); White Blood Count 12.98 K/ul (4.8-10.8)
[2022-11-04] MEDS ORDERED: ALBUT/IPRATROP 3MG/0.5MG NEB 3 ML VIAL NEB STA ×2 (20:09)
[2022-11-04] MEDS ORDERED: methylPREDNISolone 125 MG/2 ML VIAL IV STA (20:09)
[2022-11-04 20:21] LABS: Albumin Globulin Ratio 1.2 (0.9-2); BUN Creatinine Ratio 21.4 (10-20); Bilirubin,Total 0.5 mg/dl (0.2-1.0); Calcium 9.7 mg/dl (8.6-10.3); Creatinine Clr Calc Pharmacy 92.1 ml/min; Est GFR (African American) 103.5 ml/min; Est GFR (Non-African American) 89.3 ml/min; Globulin 3.4 gm/dl (2.5-4.0); Magnesium 2.1 mg/dl (1.7-2.4); Potassium 4.3 mmol/L (3.5-5.1); Total Protein 7.4 gm/dl (6.0-8.3)
[2022-11-04 20:27] LABS: Troponin I High Sensitivity 2.8 pg/ml (0-20)
[2022-11-04 20:59] LABS: Partial Thromboplastin Ratio 0.9; Partial Thromboplastin Time 25.6 Seconds (21.0-31.0); Prothrombin Time 11.2 Seconds (9.0-12.0)
[2022-11-04 21:43] LABS: Influenza A virus by PCR Negative (Neg); Influenza B virus by PCR Negative (Neg); RSV by PCR Negative (Neg); SARS CoV2 RNA(COVID-19) Ceph NEGATIVE (Negative)
[2022-11-04] MEDS ORDERED: BUDESONIDE 0.5 MG/2 ML VIAL (PULMICORT) NEB STA (23:16)
[2022-11-04] MEDS ORDERED: FORMOTEROL 20 MCG/2 ML VIAL NEB STA (23:17)
[2022-11-04] MEDS ORDERED: FORMOTEROL 20 MCG/2 ML VIAL ONE (23:21)
--- NOTE | 2022-11-04 23:27 | History & Physical Report ---
Date of Service November 04, 2022 Assessment & Plan (1) Acute exacerbation of chronic obstructive airways disease: Plan: Acute COPD exacerbation with hypercarbia and hypoxia noted with increase in baseline o2 requirements and increase in nebulizers - Currently patient is mostly medically optimized- he previously tried Daliresp, however was reported as cost prohibitive - Presentation appears most likely related to medical non-compliance secondary to confusion on medications or choice not to take- either way will need to evaluate symptoms with his current medical regimine - If no improvement he was open to discussing possibly morphine for dyspnea on paliative/hospice care- however need to ensure that he is following his prescribed inahler/neb therapy. - Will give Budesonide neb now as well as Perforomist neb - Continue with Perforomist Neb BID - Continue with Budesonide 0.5mg Neb BID - Continue Incruse daily- - Methyl pred 125 mg in [facility]---> 40mg IV q6 as inpatient, wean - Albuterol/Atrovent Nebs q4 PRN - Azithromycin 500mg now and then 250mg PO daily- previously was on Doxy - Oxygen 3-4 liters is his baseline at home- GOAL SPO2 88-92% - Influenza and COVID - NEGATIVE on admission (2) Respiratory failure with hypoxia and hypercapnia: Plan: As above (3) Anemia: Plan: Continue Iron and B12 (4) Essential hypertension: Plan: Continue Lasix- 20 mg daily Continue Metoprolol- could consider changing this if just for HTN and see if has any effect on his symptoms (5) BPH loc w urin obs/LUTS: Plan: Continue Tamsulosin (6) Chronic venous stasis: Plan: No acute needs - Lasix daily History of Present Illness Chief Complaint: Shortness of breath Primary Care Provider: NO PCP 71 YOM with medical history of: End stage severe COPD, HTN, Anemia, Super mesenteric artery aneurysm, BPH with LUTS. Patient presents to the EMD today for complaints of 2 day worsening dyspnea. Patient states that he has been getting more short of breath through the day and needing to increase his oxygen to make him feel better, however it is short lived. He states that his secretions have not increased or changed color. Patient was previously seen as inpatient , where he had his medications adjusted as well as follow up with Pulmonary clinic as outpatient on 10/04/22, where noted difficulty understanding medications and useage. When reviewing patient therapies at home, he states that he does not take budesonide at home- because it doesn't help, and he doesn't think he is taking Perforomist, and also states that he is not on any powder inhalations or hand held puffers at home- which leads me to believe that he may not be using his Incruse either. He does endorse that he is using his albuterol inhalers q4 hours all day and his hypertonic saline (for which he is almost out of). He is also on prednisone 20mg every day. He reports being able to walk about 25 feet but needs to increase his oxygen, and can go up 7 steps at home- if he increases his oxygen up to 6liters. He reports that he sleeps in a reclining chair that goes flat, and that he can lay flat to sleep. He states that his and home health nurse help him with his medications "but nobody can understand the instructions". Patient also reports that "he is not afraid to , but just doesn't want to be gasping for breath". Patient had CXR performed in the EMD which does not reveal any opacifications and no overt pulmonary edema, he had 2 albuterol nebulizers in the EMD as well as a VBG obtained. His CO2 was noted at 69. His BNP is 8 and HsCTNI 2.8. He reports no chest pain. COVID/Flu- NEGATIVE on admission CODE: DNR/DNI Allergies Allergy/AdvReac Type Severity Reaction Status Date / Time No Known Allergies Allergy Verified 10/09/22 10:40 Home Medications Medication Instructions Recorded Confirmed Type Lactobacills gasseri-Bifidobac 1 cap PO QAM 02/25/19 11/04/22 History bifidum,longum 1.5 billion cell capsule (Probiotic Colon Support) nebulizer accessories #1 ea 12/22/20 11/04/22 Rx cyanocobalamin (vitamin B-12) 1,000 mcg PO HS 03/08/21 11/04/22 History 1,000 mcg tablet (Vitamin B-12) ferrous sulfate 325 mg (65 mg 325 mg PO BID #60 tabs 05/03/21 11/04/22 Rx iron) tablet,delayed release multivitamin with folic acid 400 1 tab PO QAM #30 tabs 05/03/21 11/04/22 Rx mcg tablet (Daily-[place] (with folic acid)) polyethylene glycol 3350 17 gram 17 g PO DAILY PRN constipation #30 05/03/21 11/04/22 Rx oral powder packet (Miralax) ea magnesium oxide 400 mg (241.3 mg 400 mg PO QAM 06/17/21 11/04/22 History magnesium) tablet nebulizers (Compact Compressor #1 ea 09/29/21 11/04/22 Rx Nebulizer) docusate sodium 100 mg capsule 100 mg PO BID PRN Constipation 01/13/22 11/04/22 History Portable Oxygen 03/08/22 11/04/22 History albuterol sulfate 90 mcg/actuation 1 - 2 puff inhalation Q4H PRN 04/19/22 11/04/22 Rx aerosol inhaler Shortness Of Breath #54 grams metoprolol succinate 50 mg 50 mg PO DAILY #90 tabs 04/26/22 11/04/22 Rx tablet,extended release 24 hr atorvastatin 40 mg tablet 40 mg PO DAILY 06/20/22 11/04/22 History guaifenesin 600 mg tablet, 600 mg PO Q12 #30 tabs 06/27/22 11/04/22 Rx extended release 12 hr (Mucinex) fluticasone 500 mcg-salmeterol 50 1 inh inhalation BID #90 puffs 07/11/22 11/04/22 Rx mcg/dose blistr powdr for inhalation (Advair Diskus) acetaminophen 500 mg tablet 500 mg PO Q4 PRN Pain 07/24/22 11/04/22 History pregabalin 100 mg capsule 100 mg PO BID #60 caps 08/30/22 11/04/22 Rx budesonide 0.5 mg/2 mL suspension 0.5 mg (2 mL) inhalation BID #60 mL 09/27/22 11/04/22 Rx for nebulization formoterol fumarate 20 mcg/2 mL 2 ml inhalation BID #60 mL 09/27/22 11/04/22 Rx solution for nebulization (Perforomist) furosemide 20 mg tablet (Lasix) 40 mg PO Q OTHER DAY #60 tabs 09/27/22 11/04/22 Rx ipratropium 0.5 mg-albuterol 3 mg 3 ml inhalation QID PRN wheezing 09/27/22 11/04/22 Rx (2.5 mg base)/3 mL nebulization #180 mL soln sodium chloride 7 % for 4 ml NEB BIDR #240 mL 09/27/22 11/04/22 Rx nebulization tamsulosin 0.4 mg capsule 0.4 mg PO HS #30 caps 09/27/22 11/04/22 Rx sumatriptan succinate 50 mg tablet 50 mg PO Q2H PRN migraine headache 09/29/22 11/04/22 Rx #9 tabs umeclidinium 62.5 mcg/actuation 1 inh inhalation DAILY #30 ea 10/04/22 11/04/22 Rx blister powder for inhalation (Incruse Ellipta) Oxygen Home #1 ea 10/25/22 11/04/22 Rx Past Med/Surg History Medical History Acute encephalopathy AMS (altered mental status) Chronic anemia Colitis COPD (chronic obstructive pulmonary disease) Gout Hyperlipidemia Hypertension Incarcerated left inguinal hernia Low back pain Migraine On home oxygen therapy 2-4L continuous Orthostatic hypotension Per records Osteoarthritis Right inguinal hernia Seizure 2018 (no known etiology) 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) Per records Tobacco abuse Tremor R/L hands/feet Surgical History H/O tooth extraction Lower teeth on 04/23/2018 History of colonoscopy History of open reduction and internal fixation (ORIF) procedure FEMUR L Trimalleolar fracture ORIF (04/30/21): LMA#4 + PNB at [facility] (multiple attempts at SAB unsuccessful 2/2 to bone per anesthesia record) S/P foot surgery RT/LEFT (HARDWARE INTACT) Family History Father Hypertension Aneurysm Mother Swelling Uncle Myocardial infarction Other No significant family history Denies family history of Ovarian cancer Prostate cancer Breast cancer Colorectal cancer Social History Smoking Status: Former smoker Tobacco Type: Cigarettes Age Started Using Tobacco: 14; Age Quit Using Tobacco: 69; packs per day: 1; Cigarettes Per Day: quit 2-4 years ago; Second Hand Exposure: No; Do You Dip or Chew Tobacco: No; Hx Alcohol Use: Yes (>5 years ago) Alcohol type: beer Alcohol Intake Frequency Comment: 8+ per day Hx Substance Use: No Preferred Language: Slovenian Communication Ability: Effective Communication Ability Comment: pt intubated and sedated Visual Impairment: Limited Hearing Ability: Normal Intranet Specialist Required: No Beliefs That Will Affect Care: None marital status: Current Living Situation: Spouse and Family Current Living Situation Comment: , granddaughter and her , 12 year old boy current occupational status: retired How many Children do You have: 2 Feels Safe at Home: Yes Safety Concerns: Feels Safe At This Time Childhood Exposure to Second-Hand Smoke: Yes Diet: regular Diet Comment: regular caffeine: No during the past year weight has: remained stable Dental Care, Regularly: No Physical Activity Frequency: Does not Exercise Seatbelt Use: always Sunscreen Use: No Assistive Devices: Cane, Denture - Upper, Denture - Lower, Glasses, Oxygen - Continuous, Walker and Wheelchair Review of Systems Review of Systems: REVIEW OF SYSTEMS: Constitutional: Anxious, No fever, sweats or chills Eyes: No diplopia, no worsening or blurred vision ENT: (+) difficulty hearing, no trouble swallowing Respiratory: (+) dyspnea, hypoxia, cough, sputum, dyspnea at rest or on exertion Cardiovascular: No chest pain, tightness or palpitations Abdomen: No pain, nausea, vomiting, diarrhea or constipation Musculoskeletal: No joint pain, calf pain, swelling Neurologic: No weakness, numbness/tingling, or balance problems Skin: No rash or itch Physical Exam Physical Exam: PHYSICAL EXAM: General: awake, alert, anxious appearing Head: Normocephalic, atraumatic ENT: PERRLA, EOMI, no pharyngeal exudate, mucous membranes moist Neuro: AAO x 3, speech clear and appropriate, strength intact bilaterally 5/5, sensation intact and equal all extremities and dermatomes, no pronator drift Chest: equal rise and fall of the chest, pursed lip breathing, audible wheeze, no accessory muscle use, scattered rhonci with inspiratory and expiratory wheeze bilaterally Cardiac: Regular rate and rhythm, telemetry reviewed- NSR, skin warm dry, cap refill <3 seconds, peripheral pulses +2 no JVD, no murmur, +2 edema to bilateral lower extremities GI: NABS x 4 quadrants, soft, nontender to palpation, no rebound, guarding or tenderness : Spontaneously voiding, no pain, no CVA tenderness, Extremities: Normal inspection, no peripheral edema or erythema, calfs nontender to palpation Psych: Normal mood and affect Skin: venous discolorations to lower extremities Results & Data Results & Data Vital Signs (Past 12 Hours) Vital Signs Temp Pulse Pulse Resp BP Pulse Ox O2 Del Method 11/04/22 22:15 97 H 19 95 Nasal Cannula 11/04/22 19:27 108 H 11/04/22 21:49 Nasal Cannula 11/04/22 21:48 98 H 19 116/77 97 Nasal Cannula 11/04/22 19:58 104 H 17 135/94 98 Nasal Cannula 11/04/22 19:29 114 H 24 158/114 H 96 Nasal Cannula 11/04/22 19:24 37.2 C 113 H 28 H 96 Nasal Cannula O2 Flow Rate 11/04/22 22:15 6 11/04/22 19:27 11/04/22 21:49 97 11/04/22 21:48 11/04/22 19:58 6 11/04/22 19:29 6 11/04/22 19:24 6 Laboratory Results Abnormal lab results 11/04/22 11/04/22 11/04/22 Range/Units 19:30 19:30 19:30 WBC 12.98 H (4.8-10.8) K/ul RBC 4.48 L (4.70-6.10) M/uL Hgb 12.1 L (14.0-18.0) g/dl Hct 39.3 L (42.0-52.0) % MCHC 30.8 L (32.0-36.0) g/dL RDW Std Deviation 49.1 H (36.4-46.3) fL RDW Coeff of Jem 15.2 H (11.5-14.5) % Neut # (Auto) 9.13 H (1.40-6.50) K/uL Lymph # (Auto) 1.18 L (1.2-3.4) K/uL Will # (Auto) 0.81 H (0.11-0.59) K/uL Eos # (Auto) 1.75 H (0-0.50) K/uL VBG pCO2 69 H (38-50) mmHg Carbon Dioxide 33 H (21-32) mmol/L BUN/Creatinine Ratio 21.4 H (10-20) Glucose 106 H (70-99(Fasting)) mg/dl Diagnostic Findings Chest X-Ray 11/04/22 19:27 SINGLE VIEW CHEST CLINICAL HISTORY: Dyspnea FINDINGS: An AP, portable, upright chest radiograph is compared to study dated 09/20/2022 and correlated with chest CT dated 09/24/2022. The heart is mildly enlarged noting atherosclerotic calcification of the thoracic aorta. The pulmonary vasculature is noncongested. Emphysema and chronic interstitial thickening is similar to previous. There is bibasilar scarring/atelectasis. No airspace consolidation or large pleural effusion is identified. No pneumothorax is seen. The skeletal structures are osteopenic. The bony thorax is grossly intact. IMPRESSION: Cardiomegaly and emphysema with no acute cardiopulmonary abnormality identified. ACT 112: Negative or not required by law. Electronically signed by: Jack Santamaria M.D. 11/04/2022 7:48 PM Medications Administered Discontinued Medications Albuterol (Albut/Ipratrop 3mg/0.5mg Neb 3 Ml Vial) 3 ml NEB NOW STA; Protocol Stop: 11/04/22 20:10 Last Admin: 11/04/22 20:15 Dose: 3 ml Documented By: PAWEL Albuterol (Albut/Ipratrop 3mg/0.5mg Neb 3 Ml Vial) 3 ml NEB NOW STA; Protocol Stop: 11/04/22 20:10 Last Admin: 11/04/22 20:29 Dose: 3 ml Documented By: MED Budesonide (Budesonide 0.5 Mg/2 Ml Vial (Pulmicort)) 0.5 mg NEB NOW STA Stop: 11/04/22 23:17 Last Admin: 11/04/22 23:32 Dose: 0.5 mg Documented By: CS Formoterol Fumarate (Formoterol 20 Mcg/2 Ml Vial) 20 mcg NEB NOW STA Stop: 11/04/22 23:18 Last Admin: 11/04/22 23:32 Dose: 20 mcg Documented By: CS Formoterol Fumarate (Formoterol 20 Mcg/2 Ml Vial) Confirm Administered Dose 20 mcg .ROUTE .STK-MED ONE Stop: 11/04/22 23:22 Last Admin: 11/04/22 23:33 Dose: Not Given Documented By: CS Methylprednisolone (Methylprednisolone 125 Mg/2 Ml Vial) 125 mg IV NOW STA Stop: 11/04/22 20:10 Last Admin: 11/04/22 20:16 Dose: 125 mg Documented By: DL ECG Additional Comments: Sinus tachycardia with Premature supraventricular complexes Possible Inferior infarct (cited on or before 20-SEP-2022) Abnormal ECG When compared with ECG of 20-SEP-2022 10:16, Premature ventricular complexes are no longer Present Premature supraventricular complexes are now Present Code Status & VTE Plan VTE Prophylaxis Plan VTE Prophylaxis will be ordered: Yes Supervising Physician Co-Signing Physician Notes Attending addendum: I have physically seen this patient, have supervised the DAYANARA's medical activities, and agree with the H&P unless as otherwise noted. Assessment and Plan: Acute respiratory failure with hypoxia and hypercapnia/COPD exacerbation- From the ED received DuoNebs x2 and Solu-Medrol 125 mg IV Budesonide and Perforomist neb as noted, Perforomist neb twice daily Continue budesonide nebulizer 0.5 mg inhaled twice daily Continue fluticasone/salmeterol 1 inhalation twice daily Methylprednisolone 40 mg IV every 8 hours Azithromycin 5 mg first dose now then to 50 mg p.o. daily Titrate nasal cannula oxygen to pulse ox around 90% Follow sputum culture and sensitivity Hypertension/chronic venous stasis- Continue metoprolol and furosemide BPH- Continue tamsulosin at bedtime- Remaining orders and notations as noted PG Care Time/CCT Total # of Minutes Spent Total Time Spent with Patient: Total time spent is greater than 50% in coordination of care (as documented) at patient's floor/unit and/or counseling patient: Coding Level of Care Code 47058 INT INP/OBS CARE 3/75MIN Diagnoses Acute exacerbation of chronic obstructive airways disease J44.1 Respiratory failure with hypoxia and hypercapnia J96.91; J96.92 Anemia D64.9 Anemia type: unspecified type Essential hypertension I10 BPH loc w urin obs/LUTS N40.1 Chronic venous stasis I87.8 (3) Anemia Anemia type: unspecified type Qualified Code(s): D64.9 - Anemia, unspecified
--- NOTE | 2022-11-04 23:32 | Emergency Department Note ---
History of Present Illness General Chief Complaint: Shortness of Breath/Dyspnea Stated Complaint: SHORTNESS OF BREATH Time Seen by Provider: 11/04/22 19:53 History of Present Illness Provider Complaint: shortness of breath Onset (ago): day(s) (1) Severity: similar to previous episodes Consistency/Duration: + progressively worsening Relieved By: + nothing Exacerbated By: + coughing Known history of: COPD and congestive heart failure Associated symptoms: + cough and + wheezing; no chest pain, no pain with inspiration, no fever, no sputum production, no orthopnea, no palpitations, no hemoptysis, no diaphoresis, no syncope, no abdominal pain or no chest congestion Treatment prior to arrival: bronchodilator HPI Narrative: No history of intubation or ICU admission for respiratory problems per the patient Related Data Home oxygen amount: 3 liters Home Medications Medication Instructions Recorded Confirmed Type Lactobacills gasseri-Bifidobac 1 cap PO QAM 02/25/19 11/04/22 History bifidum,longum 1.5 billion cell capsule (Probiotic Colon Support) nebulizer accessories #1 ea 12/22/20 11/04/22 Rx cyanocobalamin (vitamin B-12) 1,000 mcg PO HS 03/08/21 11/04/22 History 1,000 mcg tablet (Vitamin B-12) ferrous sulfate 325 mg (65 mg 325 mg PO BID #60 tabs 05/03/21 11/04/22 Rx iron) tablet,delayed release multivitamin with folic acid 400 1 tab PO QAM #30 tabs 05/03/21 11/04/22 Rx mcg tablet (Daily-[place] (with folic acid)) polyethylene glycol 3350 17 gram 17 g PO DAILY PRN constipation #30 05/03/21 11/04/22 Rx oral powder packet (Miralax) ea magnesium oxide 400 mg (241.3 mg 400 mg PO QAM 06/17/21 11/04/22 History magnesium) tablet nebulizers (Compact Compressor #1 ea 09/29/21 11/04/22 Rx Nebulizer) docusate sodium 100 mg capsule 100 mg PO BID PRN Constipation 01/13/22 11/04/22 History Portable Oxygen 03/08/22 11/04/22 History albuterol sulfate 90 mcg/actuation 1 - 2 puff inhalation Q4H PRN 04/19/22 11/04/22 Rx aerosol inhaler Shortness Of Breath #54 grams metoprolol succinate 50 mg 50 mg PO DAILY #90 tabs 04/26/22 11/04/22 Rx tablet,extended release 24 hr atorvastatin 40 mg tablet 40 mg PO DAILY 06/20/22 11/04/22 History guaifenesin 600 mg tablet, 600 mg PO Q12 #30 tabs 06/27/22 11/04/22 Rx extended release 12 hr (Mucinex) fluticasone 500 mcg-salmeterol 50 1 inh inhalation BID #90 puffs 07/11/22 11/04/22 Rx mcg/dose blistr powdr for inhalation (Advair Diskus) acetaminophen 500 mg tablet 500 mg PO Q4 PRN Pain 07/24/22 11/04/22 History pregabalin 100 mg capsule 100 mg PO BID #60 caps 08/30/22 11/04/22 Rx budesonide 0.5 mg/2 mL suspension 0.5 mg (2 mL) inhalation BID #60 mL 09/27/22 11/04/22 Rx for nebulization formoterol fumarate 20 mcg/2 mL 2 ml inhalation BID #60 mL 09/27/22 11/04/22 Rx solution for nebulization (Perforomist) furosemide 20 mg tablet (Lasix) 40 mg PO Q OTHER DAY #60 tabs 09/27/22 11/04/22 Rx ipratropium 0.5 mg-albuterol 3 mg 3 ml inhalation QID PRN wheezing 09/27/22 11/04/22 Rx (2.5 mg base)/3 mL nebulization #180 mL soln sodium chloride 7 % for 4 ml NEB BIDR #240 mL 09/27/22 11/04/22 Rx nebulization tamsulosin 0.4 mg capsule 0.4 mg PO HS #30 caps 09/27/22 11/04/22 Rx sumatriptan succinate 50 mg tablet 50 mg PO Q2H PRN migraine headache 09/29/22 11/04/22 Rx #9 tabs umeclidinium 62.5 mcg/actuation 1 inh inhalation DAILY #30 ea 10/04/22 11/04/22 Rx blister powder for inhalation (Incruse Ellipta) Oxygen Home #1 ea 10/25/22 11/04/22 Rx Allergies Allergy/AdvReac Type Severity Reaction Status Date / Time No Known Allergies Allergy Verified 10/09/22 10:40 Past Med/Surg History Medical History Acute encephalopathy AMS (altered mental status) Chronic anemia Colitis COPD (chronic obstructive pulmonary disease) Gout Hyperlipidemia Hypertension Incarcerated left inguinal hernia Low back pain Migraine On home oxygen therapy 2-4L continuous Orthostatic hypotension Per records Osteoarthritis Right inguinal hernia Seizure 2018 (no known etiology) 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 (multiple attempts at SAB unsuccessful 2/2 to bone per anesthesia record) S/P foot surgery RT/LEFT (HARDWARE INTACT) Family History Father Hypertension Aneurysm Mother Swelling Uncle Myocardial infarction Other No significant family history Denies family history of Ovarian cancer Prostate cancer Breast cancer Colorectal cancer Social History Smoking Status: Former smoker Tobacco Type: Cigarettes Age Started Using Tobacco: 14; Age Quit Using Tobacco: 69; packs per day: 1; Cigarettes Per Day: quit 2-4 years ago; Second Hand Exposure: No; Do You Dip or Chew Tobacco: No; Hx Alcohol Use: Yes (pt says they quit x5 years ago) Alcohol type: beer Alcohol Intake Frequency Comment: 8+ per day Hx Substance Use: No Preferred Language: Kinyarwanda Communication Ability: Effective Communication Ability Comment: pt intubated and sedated Visual Impairment: Limited Hearing Ability: Normal Exercise Instruct Required: No Beliefs That Will Affect Care: None marital status: Current Living Situation: Spouse and Family Current Living Situation Comment: , granddaughter and her , 12 year old boy current occupational status: retired How many Children do You have: 2 Feels Safe at Home: Yes Childhood Exposure to Second-Hand Smoke: Yes Diet: regular Diet Comment: regular caffeine: No during the past year weight has: remained stable Dental Care, Regularly: No Physical Activity Frequency: Does not Exercise Seatbelt Use: always Sunscreen Use: No Assistive Devices: Cane, Oxygen - Continuous, Scooter/Electric Scooter and Walker Physical Exam Vital Signs: Vital Signs - 24 hr 11/04/22 19:24 11/04/22 19:29 11/04/22 19:58 Temperature 37.2 C Temperature Source Oral Pulse Rate 113 H Pulse Rate [Apical ] 114 H 104 H Respiratory Rate 28 H 24 17 Respiratory Effort / Characteristics Spontaneous Spontaneous Respiratory Depth Normal Normal Respiratory Patter n Regular Blood Pressure [Le ft Arm] 158/114 H 135/94 Blood Pressure Aarti n [Left Arm] 128 107 Pulse Oximetry 96 96 98 Oxygen Delivery Me thod Nasal Cannula Nasal Cannula Nasal Cannula Oxygen Flow Rate 6 6 6 Sepsis Recent Feve r Within 48 Hours No Sepsis New/Unexpla ined Change in Men omayra Status No Sepsis Action Take n by Nursing No Action Required Oxygen Flow Rate - Titration 11/04/22 21:48 11/04/22 21:49 11/04/22 19:27 Temperature Temperature Source Pulse Rate 108 H Pulse Rate [Apical ] 98 H Respiratory Rate 19 Respiratory Effort / Characteristics Non-Labored Sponta neous Respiratory Depth Normal Respiratory Patter n Regular Blood Pressure [Le ft Arm] 116/77 Blood Pressure Aarti n [Left Arm] 90 Pulse Oximetry 97 Oxygen Delivery Me thod Nasal Cannula Nasal Cannula Oxygen Flow Rate 97 Sepsis Recent Feve r Within 48 Hours Sepsis New/Unexpla ined Change in Men omayra Status Sepsis Action Take n by Nursing Oxygen Flow Rate - Titration 6 11/04/22 22:15 Temperature Temperature Source Pulse Rate 97 H Pulse Rate [Apical ] Respiratory Rate 19 Respiratory Effort / Characteristics Respiratory Depth Respiratory Patter n Blood Pressure [Le ft Arm] Blood Pressure Aarti n [Left Arm] Pulse Oximetry 95 Oxygen Delivery Me thod Nasal Cannula Oxygen Flow Rate 6 Sepsis Recent Feve r Within 48 Hours Sepsis New/Unexpla ined Change in Men omayra Status Sepsis Action Take n by Nursing Oxygen Flow Rate - Titration Physical Exam: Physical Exam GENERAL: oriented to person, place, and time. appears well-developed and well- nourished. HENT: Exam performed. - Head: Normocephalic and atraumatic. EYES: Conjunctivae and EOM are normal. Right eye exhibits no discharge. Left eye exhibits no discharge. No scleral icterus. NECK: Normal range of motion. Neck supple. No JVD present. CV: Normal rate, regular rhythm, normal heart sounds and intact distal pulses. There is no peripheral edema. Palpable radial pulses bue. PULM/CHEST: Tachypneic. Diffuse expiratory wheezes bilaterally. ABD: The abdomen is soft. There is no tenderness. NEURO: Motor and sensation grossly intact. SKIN: Skin is warm and dry. He is not diaphoretic. PSYCH: normal mood and affect. Behavior is normal. Judgment and thought content normal. Course Course 1952: The patient was evaluated in room C7. A complete history and physical exam was performed Cardiac monitoring: An order was placed for continuous cardiac monitoring. The monitor shows a rate of 110 with sinus rhythm interpreted by wv 2210: Vital signs stable. Status post 2 DuoNeb's and IV Solu-Medrol in the emergency department the patient's wheezing has improved however it still continues. Patient is still having shortness of breath and requiring 5 L of oxygen via nasal cannula. Imaging shows no acute infiltrate. Labs show a venous pH of 7.37, venous PCO2 of 69, bicarb 40. Her blood cell count 12.98. BNP and troponin negative. COVID-negative. [facility] Dr. Mckeon team notified. Administered Medications Discontinued Medications Albuterol (Albut/Ipratrop 3mg/0.5mg Neb 3 Ml Vial) 3 ml NEB NOW STA; Protocol Stop: 11/04/22 20:10 Last Admin: 11/04/22 20:15 Dose: 3 ml Documented By: PAWEL Albuterol (Albut/Ipratrop 3mg/0.5mg Neb 3 Ml Vial) 3 ml NEB NOW STA; Protocol Stop: 11/04/22 20:10 Last Admin: 11/04/22 20:29 Dose: 3 ml Documented By: JUSTINE Methylprednisolone (Methylprednisolone 125 Mg/2 Ml Vial) 125 mg IV NOW STA Stop: 11/04/22 20:10 Last Admin: 11/04/22 20:16 Dose: 125 mg Documented By: PAWEL Medical Decision Making Laboratory Data Attestation: I reviewed the patient's lab results. 11/04/22 19:30 11/04/22 19:30 Lab Results 08/05/23 08/05/23 08/05/23 Range/Units 19:30 19:30 19:30 WBC 12.98 H (4.8-10.8) K/ul RBC 4.48 L (4.70-6.10) M/uL Hgb 12.1 L (14.0-18.0) g/dl Hct 39.3 L (42.0-52.0) % MCV 87.7 (80.0-100.0) fL MCH 27.0 (25.0-34.0) pg MCHC 30.8 L (32.0-36.0) g/dL RDW Std Deviation 49.1 H (36.4-46.3) fL RDW Coeff of Jem 15.2 H (11.5-14.5) % Plt Count 250 (130-400) K/uL MPV 10.3 (9.4-12.4) fL Immature Gran % (Auto) 0.3 % Neut % (Auto) 70.4 % Lymph % (Auto) 9.1 % Fleming % (Auto) 6.2 % Eos % (Auto) 13.5 % Baso % (Auto) 0.5 % Neut # (Auto) 9.13 H (1.40-6.50) K/uL Lymph # (Auto) 1.18 L (1.2-3.4) K/uL Fleming # (Auto) 0.81 H (0.11-0.59) K/uL Eos # (Auto) 1.75 H (0-0.50) K/uL Baso # (Auto) 0.07 (0-0.2) K/uL Immature Gran # (Auto) 0.04 (0.01-0.20) K/uL PT Cancelled INR Cancelled APTT Cancelled PTT Ratio Cancelled VBG pH (7.36-7.41) VBG pCO2 (38-50) mmHg VBG pO2 mmHg VBG HCO3 mmol/L VBG O2 Saturation % VBG Base Excess mEq/L Sodium 141 (136-145) mmol/L Potassium 4.3 (3.5-5.1) mmol/L Chloride 101 (98-107) mmol/L Carbon Dioxide 33 H (21-32) mmol/L Anion Gap 7 (3-11) BUN 18 (6-23) mg/dl Creatinine 0.84 (0.6-1.4) mg/dl Est Cr Clr Drug Dosing 92.1 ml/min Est GFR ( Amer) 103.5 ml/min Est GFR (Non-Af Amer) 89.3 ml/min BUN/Creatinine Ratio 21.4 H (10-20) Glucose 106 H (70-99(Fasting)) mg/dl Calcium 9.7 (8.6-10.3) mg/dl Magnesium 2.1 (1.7-2.4) mg/dl Total Bilirubin 0.5 (0.2-1.0) mg/dl AST 15 (13-39) U/L ALT 10 (7-52) U/L Alkaline Phosphatase 92 (34-104) U/L Troponin I High Sens 2.8 (0-20) pg/ml B-Natriuretic Peptide (0-100) pg/ml Total Protein 7.4 (6.0-8.3) gm/dl Albumin 4.0 (3.4-5.0) gm/dl Globulin 3.4 (2.5-4.0) gm/dl Albumin/Globulin Ratio 1.2 (0.9-2) SARS-CoV-2 (PCR) (Negative) Influenza Type A (PCR) (Neg) Influenza Type B (PCR) (Neg) RSV (RT-PCR) (Neg) 11/04/22 11/04/22 11/04/22 Range/Units 19:30 19:30 19:30 WBC (4.8-10.8) K/ul RBC (4.70-6.10) M/uL Hgb (14.0-18.0) g/dl Hct (42.0-52.0) % MCV (80.0-100.0) fL MCH (25.0-34.0) pg MCHC (32.0-36.0) g/dL RDW Std Deviation (36.4-46.3) fL RDW Coeff of Jem (11.5-14.5) % Plt Count (130-400) K/uL MPV (9.4-12.4) fL Immature Gran % (Auto) % Neut % (Auto) % Lymph % (Auto) % Fleming % (Auto) % Eos % (Auto) % Baso % (Auto) % Neut # (Auto) (1.40-6.50) K/uL Lymph # (Auto) (1.2-3.4) K/uL Fleming # (Auto) (0.11-0.59) K/uL Eos # (Auto) (0-0.50) K/uL Baso # (Auto) (0-0.2) K/uL Immature Gran # (Auto) (0.01-0.20) K/uL PT 11.2 INR 1.0 APTT 25.6 PTT Ratio 0.9 VBG pH 7.37 (7.36-7.41) VBG pCO2 69 H (38-50) mmHg VBG pO2 41 mmHg VBG HCO3 40 mmol/L VBG O2 Saturation 67.2 % VBG Base Excess 11.6 mEq/L Sodium (136-145) mmol/L Potassium (3.5-5.1) mmol/L Chloride (98-107) mmol/L Carbon Dioxide (21-32) mmol/L Anion Gap (3-11) BUN (6-23) mg/dl Creatinine (0.6-1.4) mg/dl Est Cr Clr Drug Dosing ml/min Est GFR ( Amer) ml/min Est GFR (Non-Af Amer) ml/min BUN/Creatinine Ratio (10-20) Glucose (70-99(Fasting)) mg/dl Calcium (8.6-10.3) mg/dl Magnesium (1.7-2.4) mg/dl Total Bilirubin (0.2-1.0) mg/dl AST (13-39) U/L ALT (7-52) U/L Alkaline Phosphatase (34-104) U/L Troponin I High Sens (0-20) pg/ml B-Natriuretic Peptide 8 (0-100) pg/ml Total Protein (6.0-8.3) gm/dl Albumin (3.4-5.0) gm/dl Globulin (2.5-4.0) gm/dl Albumin/Globulin Ratio (0.9-2) SARS-CoV-2 (PCR) (Negative) Influenza Type A (PCR) (Neg) Influenza Type B (PCR) (Neg) RSV (RT-PCR) (Neg) 11/04/22 Range/Units 20:44 WBC (4.8-10.8) K/ul RBC (4.70-6.10) M/uL Hgb (14.0-18.0) g/dl Hct (42.0-52.0) % MCV (80.0-100.0) fL MCH (25.0-34.0) pg MCHC (32.0-36.0) g/dL RDW Std Deviation (36.4-46.3) fL RDW Coeff of Jem (11.5-14.5) % Plt Count (130-400) K/uL MPV (9.4-12.4) fL Immature Gran % (Auto) % Neut % (Auto) % Lymph % (Auto) % Fleming % (Auto) % Eos % (Auto) % Baso % (Auto) % Neut # (Auto) (1.40-6.50) K/uL Lymph # (Auto) (1.2-3.4) K/uL Fleming # (Auto) (0.11-0.59) K/uL Eos # (Auto) (0-0.50) K/uL Baso # (Auto) (0-0.2) K/uL Immature Gran # (Auto) (0.01-0.20) K/uL PT INR APTT PTT Ratio VBG pH (7.36-7.41) VBG pCO2 (38-50) mmHg VBG pO2 mmHg VBG HCO3 mmol/L VBG O2 Saturation % VBG Base Excess mEq/L Sodium (136-145) mmol/L Potassium (3.5-5.1) mmol/L Chloride (98-107) mmol/L Carbon Dioxide (21-32) mmol/L Anion Gap (3-11) BUN (6-23) mg/dl Creatinine (0.6-1.4) mg/dl Est Cr Clr Drug Dosing ml/min Est GFR ( Amer) ml/min Est GFR (Non-Af Amer) ml/min BUN/Creatinine Ratio (10-20) Glucose (70-99(Fasting)) mg/dl Calcium (8.6-10.3) mg/dl Magnesium (1.7-2.4) mg/dl Total Bilirubin (0.2-1.0) mg/dl AST (13-39) U/L ALT (7-52) U/L Alkaline Phosphatase (34-104) U/L Troponin I High Sens (0-20) pg/ml B-Natriuretic Peptide (0-100) pg/ml Total Protein (6.0-8.3) gm/dl Albumin (3.4-5.0) gm/dl Globulin (2.5-4.0) gm/dl Albumin/Globulin Ratio (0.9-2) SARS-CoV-2 (PCR) NEGATIVE (Negative) Influenza Type A (PCR) Negative (Neg) Influenza Type B (PCR) Negative (Neg) RSV (RT-PCR) Negative (Neg) Imaging Data Attestation: I personally reviewed and interpreted this imaging study as follows: My Impression: Chest x-ray: No acute infiltrate Radiologist's Impression: Chest X-Ray 11/04/22 19:27 SINGLE VIEW CHEST CLINICAL HISTORY: Dyspnea FINDINGS: An AP, portable, upright chest radiograph is compared to study dated 09/20/2022 and correlated with chest CT dated 09/24/2022. The heart is mildly enlarged noting atherosclerotic calcification of the thoracic aorta. The pulmonary vasculature is noncongested. Emphysema and chronic interstitial thickening is similar to previous. There is bibasilar scarring/atelectasis. No airspace consolidation or large pleural effusion is identified. No pneumothorax is seen. The skeletal structures are osteopenic. The bony thorax is grossly intact. IMPRESSION: Cardiomegaly and emphysema with no acute cardiopulmonary abnormality identified. ACT 112: Negative or not required by law. Electronically signed by: Jack Santamaria M.D. 11/04/2022 7:48 PM ECG Data Attestation: I personally reviewed and interpreted this ECG as follows: Interpretation: Sinus tachycardia with rate 114. SC 198 QRS [address] elevation or ST depression. [facility] Narrative 1952: The patient was evaluated in room C7. A complete history and physical exam was performed Cardiac monitoring: An order was placed for continuous cardiac monitoring. The monitor shows a rate of 110 with sinus rhythm interpreted by me 2210: Vital signs stable. Status post 2 DuoNeb's and IV Solu-Medrol in the emergency department the patient's wheezing has improved however it still continues. Patient is still having shortness of breath and requiring 5 L of oxygen via nasal cannula. Imaging shows no acute infiltrate. Labs show a venous pH of 7.37, venous PCO2 of 69, bicarb 40. Her blood cell count 12.98. BNP and troponin negative. COVID-negative. Patient be admitted to the [facility] hospitalist team for COPD exacerbation. Dr. Mckeon team notified. Impression & Plan Acute exacerbation of chronic obstructive airways disease Discharge Plan Visit Data Chief Complaint: Shortness of Breath/Dyspnea Stated Complaint: SHORTNESS OF BREATH ED Provider: Skip Lemos Discharge Problem: Acute exacerbation of chronic obstructive airways disease Patient Disposition: Being Evaluated by Hospitalist Forms Stand Alone Forms: My [facility] Prescriptions Prescriptions: No Action albuterol sulfate 90 mcg/actuation HFA aerosol inhaler 1 - 2 puff INHALATION Q4H PRN (Reason: Shortness Of Breath) Qty: 54 5RF metoprolol succinate 50 mg tablet extended release 24 hr 50 mg PO DAILY Qty: 90 3RF Rx Instructions: TAKE 1 TABLET BY MOUTH ONCE DAILY pregabalin 100 mg capsule 100 mg PO BID Qty: 60 2RF sumatriptan succinate 50 mg tablet 50 mg PO Q2H MDD 4 tablets/24hrs PRN (Reason: migraine headache) Qty: 9 5RF (DME) Oxygen Home Liters Per Minute See Rx Instructions .ROUTE .MEDSUPPLY Qty: 1 0RF Rx Instructions: patient requires continuous flow oxygen at 4 LPM at rest and 5 LPM with ambulation. Patient would benefit from a concentrator that goes up to 6 L/M ; [employer] (DME) nebulizer accessories Kit See Rx Instructions .ROUTE .MEDSUPPLY Qty: 1 0RF Rx Instructions: As directed (DME) Compact Compressor Nebulizer Misc See Rx Instructions .Route Qty: 1 0RF Rx Instructions: As directed acetaminophen 500 mg tablet 500 mg PO Q4 MDD 3g PRN (Reason: Pain) Rx Instructions: x 3 days then 1 cap every 4 hours as need for pain. Do not exceed 3000mg acetaminophen every 24 hours. (DME) Portable Oxygen Misc See Rx Instructions .Route Rx Instructions: As directed Incruse Ellipta 62.5 mcg/actuation blister with device 1 inh inhalation DAILY Qty: 30 5RF fluticasone propion-salmeterol [Advair Diskus] 500-50 mcg/dose blister with device 1 inh inhalation BID Qty: 90 3RF Hold Instructions: Resume on 11/01/22. Probiotic Colon Support 1.5 billion cell Capsule 1 cap PO QAM ferrous sulfate 325 mg (65 mg iron) tablet,delayed release (DR/EC) 325 mg PO BID Qty: 60 0RF polyethylene glycol 3350 [Miralax] 17 gram powder in packet 17 g PO DAILY PRN (Reason: constipation) Qty: 30 0RF multivitamin with folic acid [Daily-[place] (with folic acid)] 400 mcg Tablet 1 tab PO QAM Qty: 30 0RF magnesium oxide 400 mg (241.3 mg magnesium) tablet 400 mg PO QAM cyanocobalamin (vitamin B-12) [Vitamin B-12] 1,000 mcg Tablet 1,000 mcg PO HS docusate sodium 100 mg capsule 100 mg PO BID PRN (Reason: Constipation) atorvastatin 40 mg tablet 40 mg PO DAILY guaifenesin [Mucinex] 600 mg Tablet Extended Release 12hr 600 mg PO Q12 Qty: 30 0RF tamsulosin 0.4 mg Capsule 0.4 mg PO HS Qty: 30 4RF furosemide [Lasix] 20 mg tablet 40 mg PO Q OTHER DAY Qty: 60 5RF sodium chloride 7 % Solution For Nebulization 4 ml NEB BIDR Qty: 240 0RF Rx Instructions: mix with Duoneb and use BID in nebulizer formoterol fumarate [Perforomist] 20 mcg/2 mL solution for nebulization 2 ml inhalation BID Qty: 60 0RF budesonide 0.5 mg/2 mL suspension for nebulization 0.5 mg inhalation BID Qty: 60 0RF ipratropium-albuterol 0.5 mg-3 mg(2.5 mg base)/3 mL solution for nebulization 3 ml inhalation QID PRN (Reason: wheezing) Qty: 180 3RF Referrals Referrals: PCP,NO [Primary Care Provider] -
[2022-11-05] MEDS ORDERED: ALBUT/IPRATROP 3MG/0.5MG NEB 3 ML VIAL ONE (01:00)
[2022-11-05] MEDS ORDERED: ALBUTEROL HFA 8 GM INHALER INH PRN (01:13)
[2022-11-05] MEDS ORDERED: POLYETHYLENE (MIRALAX) 17 GM PACK PO PRN (01:13)
[2022-11-05] MEDS ORDERED: DOCUSATE SODIUM 100 MG CAP PO PRN (01:13)
[2022-11-05] MEDS ORDERED: AZITHROMYCIN 250 MG TAB PO ONE (01:13)
[2022-11-05] MEDS ORDERED: SUMAtriptan succinate 50 MG TAB PO PRN (01:13)
[2022-11-05] MEDS: methylPREDNISolone 40 MG in SYRINGE 0 ML IV SCH ×4 (03:12→20:26)
[2022-11-05 05:43] LABS: Base Excess ABG 8.3 mEq/L (-9-1.8); HCO3 ABG 33 mmol/L (19-24); Oxygen Saturation ABG 98.4 % (90-95); PCO2 ABG 47 mmHg (35-46); PO2 ABG 84 mmHg (80-95); pH ABG 7.46 (7.35-7.45)
[2022-11-05] MEDS: ALBUT/IPRATROP 3MG/0.5MG NEB 3 ML VIAL INH PRN ×4 (05:44→23:16)
[2022-11-05 05:47] LABS: Allen Test Pos (Pos)
[2022-11-05 05:50] LABS: Hematocrit (blood only) 37.4 % (42.0-52.0); Hemoglobin 11.9 g/dl (14.0-18.0); Mean Corpuscular Hemoglobin 26.9 pg (25.0-34.0); Mean Corpuscular Hgb Conc 31.8 g/dL (32.0-36.0); Mean Corpuscular Volume 84.6 fL (80.0-100.0); Mean Platelet Volume 9.5 fL (9.4-12.4); Platelet Count 245 K/uL (130-400); RDW Standard Deviation 45.8 fL (36.4-46.3); Red Blood Count 4.42 M/uL (4.70-6.10); White Blood Count 11.97 K/ul (4.8-10.8)
[2022-11-05 06:08] LABS: BUN Creatinine Ratio 29.2 (10-20); Calcium 9.5 mg/dl (8.6-10.3); Creatinine Clr Calc Pharmacy 102.6 ml/min; Est GFR (African American) 110.3 ml/min; Est GFR (Non-African American) 95.2 ml/min; Magnesium 2.1 mg/dl (1.7-2.4); Potassium 4.2 mmol/L (3.5-5.1)
[2022-11-05 06:17] LABS: Basophils # (auto) 0.02 K/uL (0-0.2); Basophils % (auto) 0.2 %; Eosinophils # (auto) 0.01 K/uL (0-0.50); Eosinophils % (auto) 0.1 %; Immature Granulocytes # (auto) 0.05 K/uL (0.01-0.20); Immature Granulocytes % (auto) 0.4 %; Lymphocytes % (auto) 4.2 %; Monocytes # (auto) 0.03 K/uL (0.11-0.59); Monocytes % (auto) 0.3 %; Neutrophils # (auto) 11.36 K/uL (1.40-6.50); Neutrophils % (auto) 94.8 %
--- NOTE | 2022-11-05 06:23 | Billing Data ---
Date of Service November 05, 2022 Coding Level of Care Code 79882 INT INP/OBS CARE
--- NOTE | 2022-11-05 07:14 | Electrocardiogram Report ---
Test Reason : Blood Pressure : / mmHG Vent. Rate : 114 BPM Atrial Rate : 114 BPM P-R Int : 198 ms QRS Dur : 062 ms QT Int : 294 ms P-R-T Axes : 086 003 041 degrees QTc Int : 405 ms Sinus tachycardia with Premature supraventricular complexes Possible Inferior infarct (cited on or before 20-SEP-2022) Abnormal ECG When compared with ECG of 20-SEP-2022 10:16, Premature ventricular complexes are no longer Present Premature supraventricular complexes are now Present Confirmed by Fidel Walker ([id number]) on 11/05/2022 7:13:57 AM Referred By: REFERRED SELF Confirmed By:Raudel Walker
[2022-11-05] MEDS: SODIUM CHLOR 7% 4 ML NEB NEB SCH ×2 (07:16→19:45)
[2022-11-05] MEDS: BUDESONIDE 0.5 MG/2 ML VIAL (PULMICORT) INH SCH ×2 (07:39→19:46)
[2022-11-05] MEDS: FORMOTEROL 20 MCG/2 ML VIAL INH SCH ×2 (07:39→19:45)
--- NOTE | 2022-11-05 08:04 | Hospitalist Progress Note ---
Date of Service November 05, 2022 Assessment & Plan (1) Acute exacerbation of chronic obstructive airways disease: Plan: Acute on chronic respiratory failure with hypercarbia and hypoxia increase in baseline o2 requirements and increase in nebulizers - If no improvement he was open to discussing possibly paliative/hospice care-last hospital consult by Dr. Dominguez on September 27 does comment that palliative care could be considered in the future Patient does vacillate between not wanting to do this anymore and wanting to return home. I did speak with his she is a retired and at home all the time so she can provide in-home hospice care if needed - Perforomist Neb BID with Budesonide 0.5mg Neb BID - Continue Incruse daily- - Methyl pred 125 mg in EMD---> 40mg IV q6 as inpatient, wean - Albuterol/Atrovent Nebs q4 PRN - Azithromycin 500mg now and then 250mg PO daily- previously was on Doxy - Oxygen 3-4 liters is his baseline at home- GOAL SPO2 88-92% - Influenza and COVID - NEGATIVE on admission (2) Anemia: Plan: chronic and stable, Continue Iron and B12 (3) Essential hypertension: Plan: Continue Lasix- 20 mg daily Continue Metoprolol- (4) BPH loc w urin obs/LUTS: Plan: Continue Tamsulosin (5) Chronic venous stasis: Plan: No acute needs - Lasix daily Admission and Anticipated Discharge Date Admission Date: November 04, 2022 Subjective Spoke with Mr. Woodson today at the bedside did frankly discuss palliative care also consideration of needing a supportive environment other than home to better try to treat his fairly progressed chronic respiratory failure I also phoned his and voices similar complaints. We will entertain a palliative care consultation on 11 06 Physical Exam Physical Exam: Patient is pursed lip breathing and using accessory muscles of respiration. He has poor air movement throughout but no overt areas of air loss or expiratory wheezes heard Card exam is regular Peripheral edema is trace to 1+ bilaterally Results & Data Results & Data Vital Signs (Past 12 Hours) Vital Signs Temp Pulse Pulse Resp BP BP BP 11/05/22 07:21 112 H 20 11/05/22 05:44 11/05/22 03:59 97.9 F 97 H 18 114/71 11/05/22 01:13 98.2 F 100 H 18 136/81 11/04/22 23:16 98 H 11/05/22 01:39 106 H 11/05/22 01:39 11/05/22 01:02 30 H 11/04/22 23:33 100 H 22 11/04/22 23:00 100 H 20 125/93 11/04/22 22:00 97 H 19 108/80 11/04/22 21:30 100 H 16 116/77 11/04/22 21:00 101 H 17 125/78 11/04/22 22:15 97 H 19 11/04/22 21:49 11/04/22 21:48 98 H 19 116/77 Pulse Ox O2 Del Method O2 Flow Rate 11/05/22 07:21 95 Nasal Cannula 4 11/05/22 05:44 Nasal Cannula 11/05/22 03:59 95 Nasal Cannula 3 11/05/22 01:13 99 Nasal Cannula 3 11/04/22 23:16 11/05/22 01:39 11/05/22 01:39 Nasal Cannula 3 11/05/22 01:02 93 Nasal Cannula 3 11/04/22 23:33 94 Nasal Cannula 4 11/04/22 23:00 96 11/04/22 22:00 97 11/04/22 21:30 97 11/04/22 21:00 99 11/04/22 22:15 95 Nasal Cannula 6 11/04/22 21:49 Nasal Cannula 97 11/04/22 21:48 97 Nasal Cannula Laboratory Results Reviewed CBC reviewed chemistry reviewed coagulation studies reviewed ABG PG Care Time/CCT Total # of Minutes Spent Total Time Spent with Patient: Total time spent is greater than 50% in coordination of care (as documented) at patient's floor/unit and/or counseling patient: Coding Level of Care Code 87895 SUB INP/OBS CARE 2/35MIN Diagnoses Acute exacerbation of chronic obstructive airways disease J44.1 Anemia D64.9 Anemia type: unspecified type Essential hypertension I10 BPH loc w urin obs/LUTS N40.1 Chronic venous stasis I87.8 (2) Anemia Anemia type: unspecified type Qualified Code(s): D64.9 - Anemia, unspecified
[2022-11-05] MEDS: ENOXAPARIN INJ 40 MG/0.4 ML SYR SQ SCH (09:40)
[2022-11-05] MEDS: AZITHROMYCIN 250 MG TAB PO SCH (09:40)
[2022-11-05] MEDS: FUROSEMIDE 40 MG TAB PO SCH (09:40)
[2022-11-05] MEDS: METOPROLOL SUCC 50MG EXT REL TAB PO SCH (09:40)
[2022-11-05] MEDS: ATORVASTATIN 40 MG TAB PO SCH (09:40)
[2022-11-05] MEDS: FERROUS SULFATE 325 MG TAB PO SCH ×2 (09:40→20:30)
[2022-11-05] MEDS: guaiFENesin 600 MG TABCR PO SCH ×2 (09:40→20:29)
[2022-11-05] MEDS: UMECLIDINIUM BROMIDE 62.5MCG/BLISTER 7 PUFFS/INHALER INH SCH (09:41)
[2022-11-05] MEDS: PREGABALIN 100 MG CAP PO SCH ×2 (09:45→20:28)
[2022-11-05] MEDS ORDERED: ONDANSETRON 4 MG OD TAB SL PRN (11:50)
[2022-11-05] MEDS ORDERED: ONDANSETRON INJ 2 MG/ML 2 ML VIAL IV PRN (11:50)
[2022-11-05] MEDS ORDERED: LORazepam 0.5 MG TAB PO PRN (11:50)
[2022-11-05] MEDS ORDERED: LORazepam 2 MG/1 ML VIAL IV PRN (11:50)
[2022-11-05] MEDS: ACETAMINOPHEN 500 MG TAB PO PRN (12:12)
[2022-11-05] MEDS: TAMSULOSIN HCL 0.4 MG CAP PO SCH (20:27)
[2022-11-05] MEDS: CYANOCOBALAMIN (B-12) 500 MCG TABLET PO SCH (20:30)
[2022-11-06] MEDS: ALBUT/IPRATROP 3MG/0.5MG NEB 3 ML VIAL INH PRN (02:50)
[2022-11-06] MEDS: methylPREDNISolone 40 MG in SYRINGE 0 ML IV SCH ×4 (04:00→21:44)
[2022-11-06 07:02] LABS: Mean Corpuscular Hemoglobin 27.1 pg (25.0-34.0); Mean Corpuscular Hgb Conc 31.6 g/dL (32.0-36.0); Mean Corpuscular Volume 85.8 fL (80.0-100.0); Mean Platelet Volume 9.9 fL (9.4-12.4); Platelet Count 256 K/uL (130-400); RDW Coefficient of Variation 15.3 % (11.5-14.5); RDW Standard Deviation 47.3 fL (36.4-46.3); Red Blood Count 4.43 M/uL (4.70-6.10); White Blood Count 14.18 K/ul (4.8-10.8)
[2022-11-06] MEDS: SODIUM CHLOR 7% 4 ML NEB NEB SCH ×2 (07:02→19:21)
[2022-11-06] MEDS: BUDESONIDE 0.5 MG/2 ML VIAL (PULMICORT) INH SCH ×2 (07:19→19:21)
[2022-11-06] MEDS: FORMOTEROL 20 MCG/2 ML VIAL INH SCH ×2 (07:19→19:21)
[2022-11-06 07:33] LABS: BUN Creatinine Ratio 38.8 (10-20); Calcium 9.6 mg/dl (8.6-10.3); Creatinine Clr Calc Pharmacy 86.7 ml/min; Est GFR (Non-African American) 88.9 ml/min; Magnesium 2.1 mg/dl (1.7-2.4); Potassium 4.1 mmol/L (3.5-5.1)
[2022-11-06 07:41] LABS: Basophils # (auto) 0.01 K/uL (0-0.2); Basophils % (auto) 0.1 %; Immature Granulocytes # (auto) 0.06 K/uL (0.01-0.20); Immature Granulocytes % (auto) 0.4 %; Lymphocytes # (auto) 0.75 K/uL (1.2-3.4); Lymphocytes % (auto) 5.3 %; Monocytes # (auto) 0.56 K/uL (0.11-0.59); Monocytes % (auto) 3.9 %; Neutrophils % (auto) 90.3 %
[2022-11-06] MEDS: AZITHROMYCIN 250 MG TAB PO SCH (07:59)
[2022-11-06] MEDS: UMECLIDINIUM BROMIDE 62.5MCG/BLISTER 7 PUFFS/INHALER INH SCH (07:59)
[2022-11-06] MEDS: METOPROLOL SUCC 50MG EXT REL TAB PO SCH (07:59)
[2022-11-06] MEDS: ENOXAPARIN INJ 40 MG/0.4 ML SYR SQ SCH (07:59)
[2022-11-06] MEDS: FERROUS SULFATE 325 MG TAB PO SCH ×2 (07:59→21:43)
[2022-11-06] MEDS: guaiFENesin 600 MG TABCR PO SCH ×2 (07:59→21:43)
[2022-11-06] MEDS: ATORVASTATIN 40 MG TAB PO SCH (07:59)
[2022-11-06] MEDS: PREGABALIN 100 MG CAP PO SCH ×2 (08:03→21:42)
--- NOTE | 2022-11-06 10:11 | Palliative Care Consultation ---
Date of Consultation November 06, 2022 Assessment & Plan (1) Dyspnea: with minimal exertion some relief with O2 but he also has hypercarbia He asked about morphine and we talked about role of opioids to relieve air hunger. He expressed concern about giving himself shots and we talked about about use of oral morphine concentrate. I offered trial of morphine while in hospital to monitor symptom relief and side effects, he declined because he said that his would get really upset if he were using morphine. I offered to talk to her but he asked me not to discuss this with her. (2) Palliative care encounter: We talked about how he is coping with his illness and the limitations that it presents. He says that sometimes he gets discouraged but overall he feels that he is coping pretty well. His confirms this. They have visiting nurses and she feels that she is able to manage his care at home right now. With regard to goals of care, he tells me that he has an advance directive and he is DNR/DNi. He would want his to be his surrogate decision maker if he were unable to do so and she is comfortable with this. We talked about his previous recent hospitalization and his thoughts on recurrent trips to the hospital. He told me that he didn't have any problem with coming to the hospital "as long as they can fix me". I asked him what that meant to him. He understands that his lung function will not improve but would hospitalization for acute problems. He does tell me that he is not afraid to and that he would hope to be at home when he . He has concerns about property and what would happen if he . He and his are working this out. We did discuss hospice support at home for symptom management but both he and his did not feel that they wanted hospice at this time. History of Present Illness Reason for Consultation: goals of care Requesting Physician: Dr. Godoy Attending Physician: Kyaw Godoy MD History of Present Illness 71 yo gentleman with COPD and chronic hypoxic, hypercapnic respiratory failure. He was hospitalized in August and presented on 11/05 with progressive dyspnea at home. He has had some difficulty with medication compliance at home due to cost and medication confusion. He has not tolerated positive pressure ventilation in the past. He tells me that he is on 3-4L of O2 at home. He denies dyspnea at rest but does have dyspnea with minimal exertion. He is not able to do stairs but is able to do basic ADLs at home. He lives with his , his daughter her her SO as well as his grandson. The grandson is active in sports but he has not been able to watch him due to his illness. 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 Allergies Allergy/AdvReac Type Severity Reaction Status Date / Time No Known Allergies Allergy Verified 10/09/22 10:40 Home Medications Medication Instructions Recorded Confirmed Type Lactobacills gasseri-Bifidobac 1 cap PO QAM 02/25/19 11/04/22 History bifidum,longum 1.5 billion cell capsule (Probiotic Colon Support) nebulizer accessories #1 ea 12/22/20 11/04/22 Rx cyanocobalamin (vitamin B-12) 1,000 mcg PO HS 03/08/21 11/04/22 History 1,000 mcg tablet (Vitamin B-12) ferrous sulfate 325 mg (65 mg 325 mg PO BID #60 tabs 05/03/21 11/04/22 Rx iron) tablet,delayed release multivitamin with folic acid 400 1 tab PO QAM #30 tabs 05/03/21 11/04/22 Rx mcg tablet (Daily-[place] (with folic acid)) polyethylene glycol 3350 17 gram 17 g PO DAILY PRN constipation #30 05/03/21 11/04/22 Rx oral powder packet (Miralax) ea magnesium oxide 400 mg (241.3 mg 400 mg PO QAM 06/17/21 11/04/22 History magnesium) tablet nebulizers (Compact Compressor #1 ea 09/29/21 11/04/22 Rx Nebulizer) docusate sodium 100 mg capsule 100 mg PO BID PRN Constipation 01/13/22 11/04/22 History Portable Oxygen 03/08/22 11/04/22 History albuterol sulfate 90 mcg/actuation 1 - 2 puff inhalation Q4H PRN 04/19/22 11/04/22 Rx aerosol inhaler Shortness Of Breath #54 grams metoprolol succinate 50 mg 50 mg PO DAILY #90 tabs 04/26/22 11/04/22 Rx tablet,extended release 24 hr atorvastatin 40 mg tablet 40 mg PO DAILY 06/20/22 11/04/22 History guaifenesin 600 mg tablet, 600 mg PO Q12 #30 tabs 06/27/22 11/04/22 Rx extended release 12 hr (Mucinex) fluticasone 500 mcg-salmeterol 50 1 inh inhalation BID #90 puffs 07/11/22 11/04/22 Rx mcg/dose blistr powdr for inhalation (Advair Diskus) acetaminophen 500 mg tablet 500 mg PO Q4 PRN Pain 07/24/22 11/04/22 History pregabalin 100 mg capsule 100 mg PO BID #60 caps 08/30/22 11/04/22 Rx budesonide 0.5 mg/2 mL suspension 0.5 mg (2 mL) inhalation BID #60 mL 09/27/22 11/04/22 Rx for nebulization formoterol fumarate 20 mcg/2 mL 2 ml inhalation BID #60 mL 09/27/22 11/04/22 Rx solution for nebulization (Perforomist) furosemide 20 mg tablet (Lasix) 40 mg PO Q OTHER DAY #60 tabs 09/27/22 11/04/22 Rx ipratropium 0.5 mg-albuterol 3 mg 3 ml inhalation QID PRN wheezing 09/27/22 11/04/22 Rx (2.5 mg base)/3 mL nebulization #180 mL soln sodium chloride 7 % for 4 ml NEB BIDR #240 mL 09/27/22 11/04/22 Rx nebulization tamsulosin 0.4 mg capsule 0.4 mg PO HS #30 caps 09/27/22 11/04/22 Rx sumatriptan succinate 50 mg tablet 50 mg PO Q2H PRN migraine headache 09/29/22 11/04/22 Rx #9 tabs umeclidinium 62.5 mcg/actuation 1 inh inhalation DAILY #30 ea 10/04/22 11/04/22 Rx blister powder for inhalation (Incruse Ellipta) Oxygen Home #1 ea 10/25/22 11/04/22 Rx Patient History Medical History Acute encephalopathy AMS (altered mental status) Chronic anemia Colitis COPD (chronic obstructive pulmonary disease) Gout Hyperlipidemia Hypertension Incarcerated left inguinal hernia Low back pain Migraine On home oxygen therapy 2-4L continuous Orthostatic hypotension Per records Osteoarthritis Right inguinal hernia Seizure 2018 (no known etiology) 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) Per records Tobacco abuse Tremor R/L hands/feet Surgical History H/O tooth extraction Lower teeth on 04/23/2018 History of colonoscopy History of open reduction and internal fixation (ORIF) procedure FEMUR L Trimalleolar fracture ORIF (04/30/21): LMA#4 + PNB at [facility] (multiple attempts at SAB unsuccessful 2/2 to bone per anesthesia record) S/P foot surgery RT/LEFT (HARDWARE INTACT) Family History Father Hypertension Aneurysm Mother Swelling Uncle Myocardial infarction Other No significant family history Denies family history of Ovarian cancer Prostate cancer Breast cancer Colorectal cancer Social History Smoking Status: Former smoker Tobacco Type: Cigarettes Age Started Using Tobacco: 14; Age Quit Using Tobacco: 69; packs per day: 1; Cigarettes Per Day: quit 2-4 years ago; Second Hand Exposure: No; Do You Dip or Chew Tobacco: No; Hx Alcohol Use: Yes (>5 years ago) Alcohol type: beer Alcohol Intake Frequency Comment: 8+ per day Hx Substance Use: No Preferred Language: Sinhala Communication Ability: Effective Communication Ability Comment: pt intubated and sedated Visual Impairment: Limited Hearing Ability: Normal [employer] 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 Required: No Beliefs That Will Affect Care: None marital status: Current Living Situation: Spouse and Family Current Living Situation Comment: , granddaughter and her , 12 year old boy current occupational status: retired How many Children do You have: 2 Feels Safe at Home: Yes Safety Concerns: Feels Safe At This Time Childhood Exposure to Second-Hand Smoke: Yes Diet: regular Diet Comment: regular caffeine: No during the past year weight has: remained stable Dental Care, Regularly: No Physical Activity Frequency: Does not Exercise Seatbelt Use: always Sunscreen Use: No Assistive Devices: Cane, Scooter/Electric Scooter and Walker Review of Systems Review of Systems: ESAS Pain 0/3 Dyspnea 2/3 Nausea 0/3 Drowsiness 0/3 Physical Exam Constitutional: no acute distress Respiratory: normal respiratory effort; no labored breathing at rest, complains of shortness of breath moving tray table Cardiovascular: Rate/Rhythm: regular rate and regular rhythm Extremities: + edema (mild) Gastrointestinal (Abdomen): LBM 8/6 Results & Data Vital Signs (Past 12 Hours) Vital Signs Temp Pulse Pulse Resp BP BP Pulse Ox 11/06/22 09:48 11/06/22 07:44 98.1 F 99 H 18 114/77 93 11/06/22 07:33 98 H 11/06/22 07:03 96 H 18 93 11/06/22 03:26 98.2 F 100 H 18 128/79 94 11/06/22 02:51 101 H 20 96 11/06/22 00:00 97.7 F 92 H 18 127/80 94 11/05/22 23:16 81 20 93 O2 Del Method O2 Flow Rate 11/06/22 09:48 Nasal Cannula 3 11/06/22 07:44 Nasal Cannula 3 11/06/22 07:33 11/06/22 07:03 Nasal Cannula 3.5 11/06/22 03:26 Nasal Cannula 3 11/06/22 02:51 Nasal Cannula 3.5 11/06/22 00:00 Nasal Cannula 3 11/05/22 23:16 Nasal Cannula 3.5 PG Care Time/CCT Total # of Minutes Spent Total Time Spent: 65 Total Time Spent with Patient: Total time spent is greater than 50% in coordination of care (as documented) at patient's floor/unit and/or counseling patient: goals of care, code status, symptom management, hospice, patient and family education and support Coding Level of Care Code 53009 INT INP/OBS CARE 2/55MIN Diagnoses Dyspnea R06.00 Palliative care encounter Z51.5
[2022-11-06] MEDS: ALBUT/IPRATROP 3MG/0.5MG NEB 3 ML VIAL INH SCH ×4 (11:49→22:52)
--- NOTE | 2022-11-06 16:45 | Hospitalist Progress Note ---
Date of Service November 06, 2022 Assessment & Plan (1) Acute exacerbation of chronic obstructive airways disease: Plan: Acute on chronic respiratory failure with hypercarbia and hypoxia increase in baseline o2 requirements and increase in nebulizers - last hospital consult by Dr. Dominguez on September 27 does comment that palliative care could be considered in the future Patient does vacillate between not wanting to do this anymore and wanting to return home. - Perforomist Neb BID with Budesonide 0.5mg Neb BID - Continue Incruse daily- - Methyl pred 125 mg in EMD---> 40mg IV q6 as inpatient, wean to p.o. prednisone - Albuterol/Atrovent Nebs q4 PRN - Azithromycin 500mg now and then 250mg PO daily- previously was on Doxy - Oxygen 3-4 liters is his baseline at home- GOAL SPO2 88-92% - Influenza and COVID - NEGATIVE on admission (2) Anemia: Plan: chronic and stable, Continue Iron and B12 (3) Essential hypertension: Plan: Continue Lasix- 20 mg daily Continue Metoprolol- (4) BPH loc w urin obs/LUTS: Plan: Continue Tamsulosin (5) Chronic venous stasis: Plan: No acute needs - Lasix daily Admission and Anticipated Discharge Date Admission Date: November 04, 2022 Subjective Patient is somewhat improved with regularly scheduled nebulizers. He now is backpedaling with regard to him wanting to eat and participate in palliative or hospice care and he met with the hospice care provider declined any suggestions. Patient also request to go home Physical Exam Physical Exam: Patient is pursed lip breathing and using accessory muscles of respiration. Slightly better than 1 day prior on 11/05 he has poor air movement throughout but no overt areas of air loss or expiratory wheezes heard Card exam is regular Peripheral edema is trace to 1+ bilaterally Results & Data Results & Data Vital Signs (Past 12 Hours) Vital Signs Temp Pulse Pulse Resp BP Pulse Ox O2 Del Method 11/06/22 15:36 113 H 11/06/22 15:30 98.2 F 105 H 18 119/71 94 Room Air 11/06/22 15:27 105 H 92 Nasal Cannula 11/06/22 11:50 100 H 20 95 Nasal Cannula 11/06/22 09:48 Nasal Cannula 11/06/22 07:44 98.1 F 99 H 18 114/77 93 Nasal Cannula 11/06/22 07:33 98 H 11/06/22 07:03 96 H 18 93 Nasal Cannula O2 Flow Rate 11/06/22 15:36 11/06/22 15:30 11/06/22 15:27 3.5 11/06/22 11:50 3.5 11/06/22 09:48 3 11/06/22 07:44 3 11/06/22 07:33 11/06/22 07:03 3.5 Laboratory Results Reviewed CBC reviewed chemistry PG Care Time/CCT Total # of Minutes Spent Total Time Spent with Patient: Total time spent is greater than 50% in coordination of care (as documented) at patient's floor/unit and/or counseling patient: Coding Level of Care Code 34477 SUB INP/OBS CARE 2/35MIN Diagnoses Acute exacerbation of chronic obstructive airways disease J44.1 Anemia D64.9 Anemia type: unspecified type Essential hypertension I10 BPH loc w urin obs/LUTS N40.1 Chronic venous stasis I87.8 (2) Anemia Anemia type: unspecified type Qualified Code(s): D64.9 - Anemia, unspecified
[2022-11-06] MEDS: TAMSULOSIN HCL 0.4 MG CAP PO SCH (21:42)
[2022-11-06] MEDS: CYANOCOBALAMIN (B-12) 500 MCG TABLET PO SCH (21:43)
[2022-11-07] MEDS: ALBUT/IPRATROP 3MG/0.5MG NEB 3 ML VIAL INH SCH ×6 (02:54→23:04)
[2022-11-07 06:32] LABS: Hematocrit (blood only) 38.5 % (42.0-52.0); Hemoglobin 12.2 g/dl (14.0-18.0); Immature Granulocytes # (auto) 0.07 K/uL (0.01-0.20); Immature Granulocytes % (auto) 0.6 %; Lymphocytes # (auto) 0.78 K/uL (1.2-3.4); Lymphocytes % (auto) 6.7 %; Mean Corpuscular Hgb Conc 31.7 g/dL (32.0-36.0); Mean Corpuscular Volume 85.2 fL (80.0-100.0); Mean Platelet Volume 9.7 fL (9.4-12.4); Neutrophils # (auto) 10.13 K/uL (1.40-6.50); Neutrophils % (auto) 86.7 %; Platelet Count 239 K/uL (130-400); RDW Coefficient of Variation 15.4 % (11.5-14.5); RDW Standard Deviation 47.5 fL (36.4-46.3); Red Blood Count 4.52 M/uL (4.70-6.10); White Blood Count 11.68 K/ul (4.8-10.8)
[2022-11-07 06:49] LABS: BUN Creatinine Ratio 45.9 (10-20); Calcium 9.7 mg/dl (8.6-10.3); Creatinine Clr Calc Pharmacy 86.2 ml/min; Est GFR (Non-African American) 88.9 ml/min; Magnesium 2.1 mg/dl (1.7-2.4); Potassium 3.8 mmol/L (3.5-5.1)
[2022-11-07] MEDS: SODIUM CHLOR 7% 4 ML NEB NEB SCH ×2 (07:20→19:08)
[2022-11-07] MEDS: FORMOTEROL 20 MCG/2 ML VIAL INH SCH ×2 (07:20→19:07)
[2022-11-07] MEDS: BUDESONIDE 0.5 MG/2 ML VIAL (PULMICORT) INH SCH ×2 (07:21→19:08)
[2022-11-07] MEDS: FERROUS SULFATE 325 MG TAB PO SCH ×2 (08:15→21:16)
[2022-11-07] MEDS: AZITHROMYCIN 250 MG TAB PO SCH (08:16)
[2022-11-07] MEDS: guaiFENesin 600 MG TABCR PO SCH ×2 (08:16→21:15)
[2022-11-07] MEDS: predniSONE 20 MG TAB PO SCH (08:16)
[2022-11-07] MEDS: FUROSEMIDE 40 MG TAB PO SCH (08:16)
[2022-11-07] MEDS: ATORVASTATIN 40 MG TAB PO SCH (08:17)
[2022-11-07] MEDS: METOPROLOL SUCC 50MG EXT REL TAB PO SCH (08:17)
[2022-11-07] MEDS: UMECLIDINIUM BROMIDE 62.5MCG/BLISTER 7 PUFFS/INHALER INH SCH (08:17)
[2022-11-07] MEDS: ENOXAPARIN INJ 40 MG/0.4 ML SYR SQ SCH (08:17)
[2022-11-07] MEDS: PREGABALIN 100 MG CAP PO SCH ×2 (08:19→21:17)
--- NOTE | 2022-11-07 16:37 | Hospitalist Progress Note ---
Date of Service November 07, 2022 Assessment & Plan (1) Acute exacerbation of chronic obstructive airways disease: Plan: Acute on chronic respiratory failure with hypercarbia and hypoxia increase in baseline o2 requirements and increase in nebulizers - last hospital consult by Dr. Dominguez on September 27 does comment that palliative care could be considered in the future, palliative care consult was undertaken patient is not currently interested in at this time -Formoterol Neb BID with Budesonide 0.5mg Neb BID this is the equivalent of Symbicort - Continue Incruse daily-umeclidinium as a anticholinergic - Methyl pred 125 mg in EMD---> 40mg IV q6 as inpatient, wean to p.o. prednisone - Albuterol/Atrovent Nebs q4 while awake - Azithromycin 500mg now and then 250mg PO daily complete 5 days- previously was on Doxy - Oxygen 3-4 liters is his baseline at home- GOAL SPO2 88-92% - Influenza and COVID - NEGATIVE on admission (2) Anemia: Plan: chronic and stable, Continue Iron and B12 (3) Essential hypertension: Plan: Continue Lasix- 20 mg daily Continue Metoprolol- (4) BPH loc w urin obs/LUTS: Plan: Continue Tamsulosin (5) Chronic venous stasis: Plan: No acute needs - Lasix daily Admission and Anticipated Discharge Date Admission Date: November 04, 2022 Subjective Patient is somewhat improved with regularly scheduled nebulizers. present at the bedside discussed how his pulmonary disease is going to chronically progress he has many confusing questions about his home medications obvious he is not have a good medical regiment nor is compliant his is not also invested in regard to that we will reset by represcribing all of his medications at time of discharge Physical Exam Physical Exam: Patient is pursed lip breathing and using accessory muscles of respiration. Slightly better than 1 day prior on 11/05 he has poor air movement throughout but no overt areas of air loss or expiratory wheezes heard Card exam is regular Peripheral edema is trace to 1+ bilaterally Results & Data Results & Data Vital Signs (Past 12 Hours) Vital Signs Temp Pulse Pulse Resp BP Pulse Ox O2 Del Method 11/07/22 15:51 18 93 Nasal Cannula 11/07/22 14:10 112 H 11/07/22 13:23 Nasal Cannula 11/07/22 11:16 96 H 18 96 Nasal Cannula 11/07/22 10:37 97.7 F 90 18 116/77 97 Nasal Cannula 11/07/22 08:09 97.5 F L 85 18 135/78 97 Nasal Cannula 11/07/22 07:21 91 H 24 Nasal Cannula 11/07/22 07:12 93 H O2 Flow Rate 11/07/22 15:51 3.5 11/07/22 14:10 11/07/22 13:23 3 11/07/22 11:16 4 11/07/22 10:37 3 11/07/22 08:09 3 11/07/22 07:21 3.5 11/07/22 07:12 Laboratory Results Reviewed CBC reviewed chemistry PG Care Time/CCT Total # of Minutes Spent Total Time Spent with Patient: Total time spent is greater than 50% in coordination of care (as documented) at patient's floor/unit and/or counseling patient: Coding Level of Care Code 69329 SUB INP/OBS CARE 2/35MIN Diagnoses Acute exacerbation of chronic obstructive airways disease J44.1 Anemia D64.9 Anemia type: unspecified type Essential hypertension I10 BPH loc w urin obs/LUTS N40.1 Chronic venous stasis I87.8 (2) Anemia Anemia type: unspecified type Qualified Code(s): D64.9 - Anemia, unspecified
[2022-11-07] MEDS: TAMSULOSIN HCL 0.4 MG CAP PO SCH (21:15)
[2022-11-07] MEDS: CYANOCOBALAMIN (B-12) 500 MCG TABLET PO SCH (21:16)
[2022-11-07] MEDS: ACETAMINOPHEN 500 MG TAB PO PRN (21:17)
[2022-11-08] MEDS: ALBUT/IPRATROP 3MG/0.5MG NEB 3 ML VIAL INH SCH ×6 (02:46→22:26)
[2022-11-08] MEDS: BUDESONIDE 0.5 MG/2 ML VIAL (PULMICORT) INH SCH ×2 (07:15→18:48)
[2022-11-08] MEDS: FORMOTEROL 20 MCG/2 ML VIAL INH SCH ×2 (07:15→18:48)
[2022-11-08] MEDS: SODIUM CHLOR 7% 4 ML NEB NEB SCH ×2 (07:15→18:48)
[2022-11-08] MEDS: FERROUS SULFATE 325 MG TAB PO SCH ×2 (07:50→21:19)
[2022-11-08] MEDS: UMECLIDINIUM BROMIDE 62.5MCG/BLISTER 7 PUFFS/INHALER INH SCH (07:50)
[2022-11-08] MEDS: predniSONE 20 MG TAB PO SCH (07:51)
[2022-11-08] MEDS: METOPROLOL SUCC 50MG EXT REL TAB PO SCH (07:51)
[2022-11-08] MEDS: AZITHROMYCIN 250 MG TAB PO SCH (07:51)
[2022-11-08] MEDS: guaiFENesin 600 MG TABCR PO SCH ×2 (07:52→21:18)
[2022-11-08] MEDS: ENOXAPARIN INJ 40 MG/0.4 ML SYR SQ SCH (07:52)
[2022-11-08] MEDS: ATORVASTATIN 40 MG TAB PO SCH (07:52)
[2022-11-08] MEDS: PREGABALIN 100 MG CAP PO SCH ×2 (08:01→21:18)
[2022-11-08 09:01] LABS: Hematocrit (blood only) 40.7 % (42.0-52.0); Hemoglobin 12.6 g/dl (14.0-18.0); Mean Corpuscular Hemoglobin 26.8 pg (25.0-34.0); Mean Corpuscular Volume 86.6 fL (80.0-100.0); Mean Platelet Volume 9.4 fL (9.4-12.4); Platelet Count 223 K/uL (130-400); RDW Coefficient of Variation 15.3 % (11.5-14.5); RDW Standard Deviation 48.4 fL (36.4-46.3); White Blood Count 10.27 K/ul (4.8-10.8)
--- NOTE | 2022-11-08 09:38 | XRay Report ---
XR chest 1V portable HISTORY: Shortness of breath. increased oxygen requirement COMPARISON: Chest 11/04/2022. FINDINGS: There are low lung volumes. No pneumothorax. No pleural effusions. The cardiac silhouette r emains mildly enlarged. No evidence for pulmonary edema. A few bibasilar linear densities favor subse gmental atelectasis are scarring. Small focal density at the base of the left lower lobe is new from the prior study and also favors subsegmental atelectasis. Otherwise, no focal lung consolidations to suggest a pneumonia. There are calcifications within the mildly tortuous thoracic aorta. IMPRESSION: 1. Low lung volumes with bibasilar linear densities. This favors subsegmental atelectasis. 2. Otherwise, no acute process within the chest. ACT 112: Negative or not required by law. Electronically signed by: Kartik Aly M.D. 11/08/2022 9:37 AM
[2022-11-08 09:47] LABS: BUN Creatinine Ratio 37.2 (10-20); Calcium 9.5 mg/dl (8.6-10.3); Est GFR (African American) 95.5 ml/min; Est GFR (Non-African American) 82.4 ml/min
[2022-11-08] MEDS: CYANOCOBALAMIN (B-12) 500 MCG TABLET PO SCH (21:18)
[2022-11-08] MEDS: TAMSULOSIN HCL 0.4 MG CAP PO SCH (21:19)
[2022-11-09] MEDS: ALBUT/IPRATROP 3MG/0.5MG NEB 3 ML VIAL INH SCH ×6 (02:10→22:49)
[2022-11-09] MEDS: SODIUM CHLOR 7% 4 ML NEB NEB SCH ×2 (06:59→19:25)
[2022-11-09] MEDS: BUDESONIDE 0.5 MG/2 ML VIAL (PULMICORT) INH SCH ×2 (06:59→19:25)
[2022-11-09] MEDS: FORMOTEROL 20 MCG/2 ML VIAL INH SCH ×2 (06:59→19:25)
[2022-11-09] MEDS: UMECLIDINIUM BROMIDE 62.5MCG/BLISTER 7 PUFFS/INHALER INH SCH (08:54)
[2022-11-09] MEDS: predniSONE 20 MG TAB PO SCH (08:56)
[2022-11-09] MEDS: ENOXAPARIN INJ 40 MG/0.4 ML SYR SQ SCH (08:56)
[2022-11-09] MEDS: FUROSEMIDE 40 MG TAB PO SCH (08:56)
[2022-11-09] MEDS: METOPROLOL SUCC 50MG EXT REL TAB PO SCH (08:56)
[2022-11-09] MEDS: guaiFENesin 600 MG TABCR PO SCH ×2 (08:57→20:59)
[2022-11-09] MEDS: ATORVASTATIN 40 MG TAB PO SCH (08:57)
[2022-11-09] MEDS: FERROUS SULFATE 325 MG TAB PO SCH ×2 (08:57→20:59)
[2022-11-09] MEDS: PREGABALIN 100 MG CAP PO SCH ×2 (08:59→20:58)
--- NOTE | 2022-11-09 11:30 | Hospitalist Progress Note ---
Date of Service November 08, 2022 Assessment & Plan (1) Acute exacerbation of chronic obstructive airways disease: Plan: Acute on chronic respiratory failure with hypercarbia and hypoxia increase in baseline o2 requirements and increase in nebulizers - last hospital consult by Dr. Dominguez on September 27 does comment that palliative care could be considered in the future, palliative care consult was undertaken patient is not currently interested in at this time -Great improvement as long as is compliant with pulmonary treatments -Formoterol Neb BID with Budesonide 0.5mg Neb BID this is the equivalent of Symbicort - Continue Incruse daily-umeclidinium as a anticholinergic - Methyl pred 125 mg in EMD---> 40mg IV q6 as inpatient, wean to p.o. prednisone - Albuterol/Atrovent Nebs q4 while awake - Azithromycin 500mg now and then 250mg PO daily complete 5 days- previously was on Doxy - Oxygen 3-4 liters is his baseline at home- GOAL SPO2 88-92% - Influenza and COVID - NEGATIVE on admission (2) Anemia: Plan: chronic and stable, Continue Iron and B12 (3) Essential hypertension: Plan: Continue Lasix- 20 mg daily Continue Metoprolol- (4) BPH loc w urin obs/LUTS: Plan: Continue Tamsulosin (5) Chronic venous stasis: Plan: No acute needs - Lasix daily Admission and Anticipated Discharge Date Admission Date: November 04, 2022 Subjective Patient is somewhat improved with regularly scheduled nebulizers. Pt feels that maybe able to go home in the next few days, still focused on which inhalers at which times with daily teaching from RT Physical Exam Physical Exam: Patient is pursed lip breathing and using accessory muscles of respiration. Slightly better than 1 day prior on 11/05 he has poor air movement throughout but no overt areas of air loss or expiratory wheezes heard Card exam is regular Peripheral edema is trace to 1+ bilaterally Results & Data Results & Data Vital Signs (Past 12 Hours) Vital Signs Temp Pulse Resp BP BP Pulse Ox O2 Del Method 11/09/22 11:09 91 H 18 97 Nasal Cannula 11/09/22 07:50 98.2 F 94 H 18 117/70 92 Room Air 11/09/22 07:38 98.2 F 83 16 130/80 95 Nasal Cannula 11/09/22 07:00 79 18 93 Nasal Cannula 11/09/22 02:10 78 20 97 Nasal Cannula O2 Flow Rate 11/09/22 11:09 3.5 11/09/22 07:50 2 11/09/22 07:38 3 11/09/22 07:00 3.5 11/09/22 02:10 3.5 PG Care Time/CCT Total # of Minutes Spent Total Time Spent with Patient: Total time spent is greater than 50% in coordination of care (as documented) at patient's floor/unit and/or counseling patient: Coding Level of Care Code 66416 SUB INP/OBS CARE 2/35MIN Diagnoses Acute exacerbation of chronic obstructive airways disease J44.1 Anemia D64.9 Anemia type: unspecified type Essential hypertension I10 BPH loc w urin obs/LUTS N40.1 Chronic venous stasis I87.8 (2) Anemia Anemia type: unspecified type Qualified Code(s): D64.9 - Anemia, unspecified
--- NOTE | 2022-11-09 16:16 | Hospitalist Progress Note ---
Date of Service November 09, 2022 Assessment & Plan (1) Acute exacerbation of chronic obstructive airways disease: Plan: Acute on chronic respiratory failure with hypercarbia and hypoxia increase in baseline o2 requirements and increase in nebulizers - last hospital consult by Dr. Dominguez on September 27 does comment that palliative care could be considered in the future, palliative care consult was undertaken patient is not currently interested in at this time -Great improvement as long as is compliant with pulmonary treatments -Formoterol Neb BID with Budesonide 0.5mg Neb BID this is the equivalent of Symbicort - Continue Incruse daily-umeclidinium as a anticholinergic - Methyl pred 125 mg in EMD---> 40mg IV q6 as inpatient, wean to p.o. prednisone - Albuterol/Atrovent Nebs q4 while awake - Azithromycin 500mg now and then 250mg PO daily complete 5 days- previously was on Doxy - Oxygen 3-4 liters is his baseline at home- GOAL SPO2 88-92% - Influenza and COVID - NEGATIVE on admission will continue above treatment and will likely discharge tomorrow. Patient has severe COPD, and patient has a high likelihood of readmission. Had a discussion with Dr. Dominguez as a curbside, recommended prendisone chornically at discharge with a 2 week pulmonary followup. (2) Anemia: Plan: chronic and stable, Continue Iron and B12 (3) Essential hypertension: Plan: Continue Lasix- 20 mg daily Continue Metoprolol- (4) BPH loc w urin obs/LUTS: Plan: Continue Tamsulosin (5) Chronic venous stasis: Plan: No acute needs - Lasix daily Admission and Anticipated Discharge Date Admission Date: November 04, 2022 Subjective 71 yo male reports no new symptoms. He continues to have wheezing. He continues to cough up sputum. Review of Systems Review of Systems: All systems reviewed & are unremarkable except as noted in HPI & below Physical Exam Physical Exam: Patient is sitting in bed. Appears comfortable. Card exam is regular Peripheral edema is trace to 1+ bilaterally Results & Data Results & Data Vital Signs (Past 12 Hours) Vital Signs Temp Pulse Resp BP BP Pulse Ox O2 Del Method 11/09/22 15:51 36.3 C L 98 H 18 106/74 94 Nasal Cannula 11/09/22 15:16 95 H 18 95 Nasal Cannula 11/09/22 13:52 Nasal Cannula 11/09/22 11:09 91 H 18 97 Nasal Cannula 11/09/22 07:50 36.8 C 94 H 18 117/70 92 Room Air 11/09/22 07:38 36.8 C 83 16 130/80 95 Nasal Cannula 11/09/22 07:00 79 18 93 Nasal Cannula O2 Flow Rate 11/09/22 15:51 3.5 11/09/22 15:16 3.5 11/09/22 13:52 3.5 11/09/22 11:09 3.5 11/09/22 07:50 2 11/09/22 07:38 3 11/09/22 07:00 3.5 PG Care Time/CCT Total # of Minutes Spent Total Time Spent with Patient: Total time spent is greater than 50% in coordination of care (as documented) at patient's floor/unit and/or counseling patient: Coding Level of Care Code 67087 SUB INP/OBS CARE 3/50MIN Diagnoses Acute exacerbation of chronic obstructive airways disease J44.1 Anemia D64.9 Anemia type: unspecified type Essential hypertension I10 BPH loc w urin obs/LUTS N40.1 Chronic venous stasis I87.8 Time Spent (min) 50 (2) Anemia Anemia type: unspecified type Qualified Code(s): D64.9 - Anemia, unspecified
[2022-11-09] MEDS: TAMSULOSIN HCL 0.4 MG CAP PO SCH (20:59)
[2022-11-09] MEDS: CYANOCOBALAMIN (B-12) 500 MCG TABLET PO SCH (20:59)
[2022-11-10] MEDS: ALBUT/IPRATROP 3MG/0.5MG NEB 3 ML VIAL INH SCH ×4 (03:37→15:20)
[2022-11-10] MEDS: BUDESONIDE 0.5 MG/2 ML VIAL (PULMICORT) INH SCH (07:22)
[2022-11-10] MEDS: FORMOTEROL 20 MCG/2 ML VIAL INH SCH (07:22)
[2022-11-10] MEDS: SODIUM CHLOR 7% 4 ML NEB NEB SCH (07:22)
[2022-11-10 07:53] LABS: Hematocrit (blood only) 38.4 % (42.0-52.0); Hemoglobin 12.1 g/dl (14.0-18.0); Mean Corpuscular Hemoglobin 26.9 pg (25.0-34.0); Mean Corpuscular Hgb Conc 31.5 g/dL (32.0-36.0); Mean Corpuscular Volume 85.3 fL (80.0-100.0); Mean Platelet Volume 9.8 fL (9.4-12.4); Platelet Count 220 K/uL (130-400); RDW Coefficient of Variation 15.4 % (11.5-14.5); RDW Standard Deviation 47.1 fL (36.4-46.3); White Blood Count 12.08 K/ul (4.8-10.8)
[2022-11-10 08:11] LABS: Anion Gap 5 (3-11); BUN Creatinine Ratio 32.3 (10-20); Blood Urea Nitrogen 30 mg/dl (6-23); C Reactive Protein < 0.50 mg/dl (0-0.5); Carbon Dioxide 36 mmol/L (21-32); Chloride 99 mmol/L (98-107); Creatinine Clr Calc Pharmacy 78.8 ml/min; Est GFR (African American) 96.7 ml/min; Est GFR (Non-African American) 83.5 ml/min; Glucose 95 mg/dl (70-99(Fasting)); Potassium 2.9 mmol/L (3.5-5.1); Sodium 140 mmol/L (136-145)
[2022-11-10] MEDS: UMECLIDINIUM BROMIDE 62.5MCG/BLISTER 7 PUFFS/INHALER INH SCH (08:18)
[2022-11-10] MEDS: guaiFENesin 600 MG TABCR PO SCH (08:19)
[2022-11-10] MEDS: METOPROLOL SUCC 50MG EXT REL TAB PO SCH (08:19)
[2022-11-10] MEDS: ENOXAPARIN INJ 40 MG/0.4 ML SYR SQ SCH (08:19)
[2022-11-10] MEDS: ATORVASTATIN 40 MG TAB PO SCH (08:19)
[2022-11-10] MEDS: FERROUS SULFATE 325 MG TAB PO SCH (08:19)
[2022-11-10] MEDS: predniSONE 20 MG TAB PO SCH (08:19)
[2022-11-10] MEDS: PREGABALIN 100 MG CAP PO SCH (08:22)
[2022-11-10] MEDS ORDERED: POTASSIUM CHLORIDE CRTAB 20 MEQ TABCR PO STA (14:20)
--- NOTE | 2022-11-10 15:39 | Discharge Summary ---
Date of Service November 10, 2022 Admission HPI Per Admitting Provider 71 YOM with medical history of: End stage severe COPD, HTN, Anemia, Super mesenteric artery aneurysm, BPH with LUTS. Patient presents to the EMD today for complaints of 2 day worsening dyspnea. Patient states that he has been getting more short of breath through the day and needing to increase his oxygen to make him feel better, however it is short lived. He states that his secretions have not increased or changed color. Patient was previously seen as inpatient , where he had his medications adjusted as well as follow up with Pulmonary clinic as outpatient on 10/04/22, where noted difficulty underst anding medications and useage. When reviewing patient therapies at home, he states that he does not take budesonide at home- because it doesn't help, and he doesn't think he is taking Perforomist, and also states that he is not on any powder inhalations or hand held puffers at home- which leads me to believe that he may not be using his Incruse either. He does endorse that he is using his albuterol inhalers q4 hours all day and his hypertonic saline (for which he is almost out of). He is also on prednisone 20mg every day. He reports being able to walk about 25 feet but needs to increase his oxygen, and can go up 7 steps at home- if he increases his oxygen up to 6liters. He reports that he sleeps in a reclining chair that goes flat, and that he can lay flat to sleep. He states that his and home health nurse help him with his medications "but nobody can understand the instructions". Patient also reports that "he is not afraid to , but just doesn't want to be gasping for breath". Patient had CXR performed in the EMD which does not reveal any opacifications and no overt pulmonary edema, he had 2 albuterol nebulizers in the EMD as well as a VBG obtained. His CO2 was noted at 69. His BNP is 8 and HsCTNI 2.8. He reports no chest pain. COVID/Flu- NEGATIVE on admission CODE: DNR/DNI Principal Diagnosis COPD exacerbation Discharge Exam Patient is sitting in bed. Appears comfortable. Card exam is regular Peripheral edema is trace to 1+ bilaterally Discharge Data Allergies Allergy/AdvReac Type Severity Reaction Status Date / Time No Known Allergies Allergy Verified 10/09/22 10:40 Consultations 11/04/22 22:13 ED Decision to Admit Stat 11/05/22 08:49 Consult Nutrition Routine 11/05/22 11:51 Consult Palliative Care Routine Hospital Course (1) Acute exacerbation of chronic obstructive airways disease: Acute on chronic respiratory failure with hypercarbia and hypoxia increase in baseline o2 requirements and increase in nebulizers - last hospital consult by Dr. Dominguez on September 27 does comment that palliative care could be considered in the future, palliative care consult was undertaken patient is not currently interested in at this time -Great improvement as long as is compliant with pulmonary treatments -Formoterol Neb BID with Budesonide 0.5mg Neb BID this is the equivalent of Symbicort - Continue Incruse daily-umeclidinium as a anticholinergic - Methyl pred 125 mg in EMD---> 40mg IV q6 as inpatient, wean to p.o. prednisone - Albuterol/Atrovent Nebs q4 while awake - Azithromycin 500mg now and then 250mg PO daily complete 5 days- previously was on Doxy - Oxygen 3-4 liters is his baseline at home- GOAL SPO2 88-92% - Influenza and COVID - NEGATIVE on admission Patient has severe COPD, and patient has a high likelihood of readmission. Had a discussion with Dr. Dominguez as a curbside, recommended prendisone chornically at discharge with a 2 week pulmonary followup. (2) Anemia: chronic and stable, Continue Iron and B12 (3) Essential hypertension: Continue Lasix- 20 mg daily Continue Metoprolol- (4) BPH loc w urin obs/LUTS: Continue Tamsulosin (5) Chronic venous stasis: No acute needs - Lasix daily Total Time Total Time Spent Total Time Spent (In Minutes): 35 Discharge Plan Discharge Items Patient Disposition: Home - Home Health Services Reason For Visit: DYSPNEA / COPD EXACERBATION Discharge Diagnosis: COPD exacerbation Activity: Resume your previous activity Non-emergency contact: Primary Care Provider Call non-emergency contact if: you have any medication questions Follow-up/Referrals: PCP,NO [Primary Care Provider] - Diet: Heart Healthy Addtl Attending Provider Instructions: Followup with PCP in 1-2 weeks Followup with Pulmonary in [address] Dominguez or a midlevel. Daily medications: Perforomist (formoterol) 20 mcg nebulized solution to be used twice daily Budesonide (Pulmicort) 0.5 mg nebulized solution to be used twice daily Incruse Ellipta 1 inhalation once daily Hypertonic saline (7% sodium chloride) nebulized solution to be used twice daily Mucinex (guaifenesin) 600 to 1200 mg by mouth twice daily Prednisone 2 tablets once daily For rescue or as needed only you can take either one: DuoNebs (ipratropiumalbuterol) nebulized solution to be used every 3-4 hours up to 4 times daily as needed Albuterol rescue inhaler 1 to 2 puffs every 2-3 hours as needed for shortness of breath Pending Studies at Discharge: No Stand-Alone Forms: My [facility] [employer], Smoking Cessation Medications and DC Order Prescriptions: New prednisone 20 mg Tablet 40 mg PO DAILY 30 Days Qty: 60 0RF potassium chloride 20 mEq tablet extended release 20 meq PO TID Qty: 7 0RF Continued albuterol sulfate 90 mcg/actuation HFA aerosol inhaler 1 - 2 puff INHALATION Q4H PRN (Reason: Shortness Of Breath) Qty: 54 5RF metoprolol succinate 50 mg tablet extended release 24 hr 50 mg PO DAILY Qty: 90 3RF Rx Instructions: TAKE 1 TABLET BY MOUTH ONCE DAILY pregabalin 100 mg capsule 100 mg PO BID Qty: 60 2RF sumatriptan succinate 50 mg tablet 50 mg PO Q2H MDD 4 tablets/24hrs PRN (Reason: migraine headache) Qty: 9 5RF (DME) Oxygen Home Liters Per Minute See Rx Instructions .ROUTE .MEDSUPPLY Qty: 1 0RF Rx Instructions: patient requires continuous flow oxygen at 4 LPM at rest and 5 LPM with ambulation. Patient would benefit from a concentrator that goes up to 6 L/M ; STEAM FLATTENER (DME) nebulizer accessories Kit See Rx Instructions .ROUTE .MEDSUPPLY Qty: 1 0RF Rx Instructions: As directed (DME) Compact Compressor Nebulizer Misc See Rx Instructions .Route Qty: 1 0RF Rx Instructions: As directed acetaminophen 500 mg tablet 500 mg PO Q4 MDD 3g PRN (Reason: Pain) Rx Instructions: x 3 days then 1 cap every 4 hours as need for pain. Do not exceed 3000mg acetaminophen every 24 hours. (DME) Portable Oxygen Misc See Rx Instructions .Route Rx Instructions: As directed Incruse Ellipta 62.5 mcg/actuation blister with device 1 inh inhalation DAILY Qty: 30 5RF Probiotic Colon Support 1.5 billion cell Capsule 1 cap PO QAM ferrous sulfate 325 mg (65 mg iron) tablet,delayed release (DR/EC) 325 mg PO BID Qty: 60 0RF polyethylene glycol 3350 [Miralax] 17 gram powder in packet 17 g PO DAILY PRN (Reason: constipation) Qty: 30 0RF multivitamin with folic acid [Daily-[place] (with folic acid)] 400 mcg Tablet 1 tab PO QAM Qty: 30 0RF magnesium oxide 400 mg (241.3 mg magnesium) tablet 400 mg PO QAM cyanocobalamin (vitamin B-12) [Vitamin B-12] 1,000 mcg Tablet 1,000 mcg PO HS docusate sodium 100 mg capsule 100 mg PO BID PRN (Reason: Constipation) atorvastatin 40 mg tablet 40 mg PO DAILY guaifenesin [Mucinex] 600 mg Tablet Extended Release 12hr 600 mg PO Q12 Qty: 30 0RF tamsulosin 0.4 mg Capsule 0.4 mg PO HS Qty: 30 4RF furosemide [Lasix] 20 mg tablet 40 mg PO Q OTHER DAY Qty: 60 5RF sodium chloride 7 % Solution For Nebulization 4 ml NEB BIDR Qty: 240 0RF Rx Instructions: mix with Duoneb and use BID in nebulizer formoterol fumarate [Perforomist] 20 mcg/2 mL solution for nebulization 2 ml inhalation BID Qty: 60 0RF budesonide 0.5 mg/2 mL suspension for nebulization 0.5 mg inhalation BID Qty: 60 0RF ipratropium-albuterol 0.5 mg-3 mg(2.5 mg base)/3 mL solution for nebulization 3 ml inhalation QID PRN (Reason: wheezing) Qty: 180 3RF Discontinued fluticasone propion-salmeterol [Advair Diskus] 500-50 mcg/dose blister with device 1 inh inhalation BID Qty: 90 3RF Hold Instructions: Resume on 11/01/22. Discharge Orders: Discharge Order (Routine); Ordered 11/10/22 Ordered By: Rey Paz Admission Data Admit Date/Time: 11/04/22 23:24 Attending Provider: Rey Paz Admit Provider: Josh Kim Primary Care Provider: PCP,NO Other Providers: [facility] ; Josh Kim ; Kyaw Godoy ; Deepti Tesfaye Other Interventions: Discharge Summary Assessment (RN) Last Done: 11/10/22 15:08 Coding Level of Care Code 44715 INP/OBS DISCH >30 MIN Diagnoses Acute exacerbation of chronic obstructive airways disease J44.1 Anemia D64.9 Anemia type: unspecified type Essential hypertension I10 BPH loc w urin obs/LUTS N40.1 Chronic venous stasis I87.8
== END 2022-11-10 16:18 | disposition home health service (06) | DRG 190 ==
LOC: ED 19:20 → SUATTDRO 23:24 → 2N 23:24 → 3E 11-08 03:51
DX: I11.0 Hypertensive heart disease with heart failure; Z66 Do not resuscitate; Z87.891 Personal history of nicotine dependence; E78.5 Hyperlipidemia, unspecified; I87.8 Other specified disorders of veins; J44.1 Chronic obstructive pulmonary disease with (acute) exacerbation; N40.1 Benign prostatic hyperplasia with lower urinary tract symptoms; I50.9 Heart failure, unspecified; D64.9 Anemia, unspecified; J96.22 Acute and chronic respiratory failure with hypercapnia; J96.21 Acute and chronic respiratory failure with hypoxia

== ENCOUNTER 2023-01-26 06:47 | Inpatient (IN) ==
[2023-01-26] MEDS ORDERED: ALBUT/IPRATROP 3MG/0.5MG NEB 3 ML VIAL ONE ×3 (07:00→07:04)
[2023-01-26] MEDS ORDERED: methylPREDNISolone 125 MG/2 ML VIAL ONE (07:00)
[2023-01-26] MEDS ORDERED: ALBUTEROL 0.083% NEBU SOLN 3 ML VIAL ONE (07:01)
--- NOTE | 2023-01-26 07:14 | Emergency Department Note ---
History of Present Illness General Chief complaint: Shortness of Breath/Dyspnea Stated complaint: SHORT OF BREATH Time Seen by Provider: 01/26/23 06:50 History of Present Illness 72-year-old male presents via EMS reports that he woke up this morning to urinate and he had sudden onset of increased shortness of breath. Typically wears 4.5 L of oxygen. He states that he had to increase his oxygen to 12. He did do a DuoNeb prior to calling EMS. EMS arrived gave him a DuoNeb as well as 125 mg of IV Solu-Medrol. Patient states increased swelling in his legs. Patient states a slight cough no hemoptysis no fever. Patient states he is improved currently. There are no other mitigating or alleviating factors. In the past he has been admitted for COPD exacerbations. Home Medications Medication Instructions Recorded Confirmed Type Lactobacills gasseri-Bifidobac 1 cap PO QAM 02/25/19 01/02/23 History bifidum,longum 1.5 billion cell capsule (Probiotic Colon Support) nebulizer accessories #1 ea 12/22/20 01/02/23 Rx cyanocobalamin (vitamin B-12) 1,000 mcg PO HS 03/08/21 01/02/23 History 1,000 mcg tablet (Vitamin B-12) ferrous sulfate 325 mg (65 mg 325 mg PO BID #60 tabs 05/03/21 01/02/23 Rx iron) tablet,delayed release multivitamin with folic acid 400 1 tab PO QAM #30 tabs 05/03/21 01/02/23 Rx mcg tablet (Daily-[place] (with folic acid)) polyethylene glycol 3350 17 gram 17 g PO DAILY PRN constipation #30 05/03/21 01/02/23 Rx oral powder packet (Miralax) ea magnesium oxide 400 mg (241.3 mg 400 mg PO QAM 06/17/21 01/02/23 History magnesium) tablet nebulizers (Compact Compressor #1 ea 09/29/21 01/02/23 Rx Nebulizer) docusate sodium 100 mg capsule 100 mg PO BID PRN Constipation 01/13/22 01/02/23 History Portable Oxygen 03/08/22 01/02/23 History albuterol sulfate 90 mcg/actuation 1 - 2 puff inhalation Q4H PRN 04/19/22 01/02/23 Rx aerosol inhaler Shortness Of Breath #54 grams metoprolol succinate 50 mg 50 mg PO DAILY #90 tabs 04/26/22 01/02/23 Rx tablet,extended release 24 hr guaifenesin 600 mg tablet, 600 mg PO Q12 #30 tabs 06/27/22 01/02/23 Rx extended release 12 hr (Mucinex) acetaminophen 500 mg tablet 500 mg PO Q4 PRN Pain 07/24/22 01/02/23 History budesonide 0.5 mg/2 mL suspension 0.5 mg (2 mL) inhalation BID #60 mL 09/27/22 01/02/23 Rx for nebulization formoterol fumarate 20 mcg/2 mL 2 ml inhalation BID #60 mL 09/27/22 01/02/23 Rx solution for nebulization (Perforomist) furosemide 20 mg tablet (Lasix) 40 mg PO Q OTHER DAY #60 tabs 09/27/22 01/02/23 Rx ipratropium 0.5 mg-albuterol 3 mg 3 ml inhalation QID PRN wheezing 09/27/22 01/02/23 Rx (2.5 mg base)/3 mL nebulization #180 mL soln sodium chloride 7 % for 4 ml NEB BIDR #240 mL 09/27/22 01/02/23 Rx nebulization tamsulosin 0.4 mg capsule 0.4 mg PO HS #30 caps 09/27/22 01/02/23 Rx sumatriptan succinate 50 mg tablet 50 mg PO Q2H PRN migraine headache 09/29/22 01/02/23 Rx #9 tabs umeclidinium 62.5 mcg/actuation 1 inh inhalation DAILY #30 ea 10/04/22 01/02/23 Rx blister powder for inhalation (Incruse Ellipta) Oxygen Home #1 ea 10/25/22 01/02/23 Rx potassium chloride 20 mEq 20 meq PO TID #7 tabs 11/10/22 01/02/23 Rx tablet,extended release atorvastatin 40 mg tablet 40 mg PO DAILY #90 tabs 12/06/22 01/02/23 Rx Breo Ellipta 200 mcg-25 mcg/dose 1 inh inhalation DAILY #60 ea 12/07/22 01/02/23 Rx powder for inhalation (fluticasone furoate-vilanterol) pregabalin 100 mg capsule 100 mg PO BID #60 caps 12/20/22 01/02/23 Rx Allergies Allergy/AdvReac Type Severity Reaction Status Date / Time No Known Allergies Allergy Verified 01/02/23 10:04 Past Med/Surg History Medical History Acute encephalopathy AMS (altered mental status) Chronic anemia Colitis COPD (chronic obstructive pulmonary disease) Gout Hyperlipidemia Hypertension Incarcerated left inguinal hernia Low back pain Migraine On home oxygen therapy 2-4L continuous Orthostatic hypotension Per records Osteoarthritis Right inguinal hernia Seizure 2018 (no known etiology) 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) Per records Tobacco abuse Tremor R/L hands/feet Surgical History H/O tooth extraction Lower teeth on 04/23/2018 History of colonoscopy History of open reduction and internal fixation (ORIF) procedure FEMUR L Trimalleolar fracture ORIF (04/30/21): LMA#4 + PNB at [facility] (multiple attempts at SAB unsuccessful 2/2 to bone per anesthesia record) S/P foot surgery RT/LEFT (HARDWARE INTACT) Family History Father Hypertension Aneurysm Mother Swelling Uncle Myocardial infarction Other No significant family history Denies family history of Ovarian cancer Prostate cancer Breast cancer Colorectal cancer Social History Smoking Status: Former smoker Tobacco Type: Cigarettes Age Started Using Tobacco: 14; Age Quit Using Tobacco: 69; packs per day: 1; Cigarettes Per Day: quit 2-4 years ago; Second Hand Exposure: No; Do You Dip or Chew Tobacco: No; Hx Alcohol Use: Yes (>5 years ago) Alcohol type: beer Alcohol Intake Frequency Comment: 8+ per day Hx Substance Use: No Preferred Language: Hungarian Communication Ability: Effective Communication Ability Comment: pt intubated and sedated Visual Impairment: Limited Hearing Ability: Normal Cd Technician Required: No Beliefs That Will Affect Care: Spiritual marital status: Current Living Situation: Spouse and Family Current Living Situation Comment: , granddaughter and her , 12 year old boy current occupational status: retired How many Children do You have: 2 Feels Safe at Home: Yes Childhood Exposure to Second-Hand Smoke: Yes Diet: regular Diet Comment: regular caffeine: No during the past year weight has: remained stable Dental Care, Regularly: No Physical Activity Frequency: Does not Exercise Seatbelt Use: always Sunscreen Use: No Assistive Devices: Cane, Scooter/Electric Scooter and Walker Review of Systems A total of 10 systems reviewed and were otherwise negative Respiratory: + dyspnea Physical Exam Vital Signs Vital Signs - 24 hr 01/26/23 06:50 01/26/23 06:55 01/26/23 07:30 Temperature 36.7 C Temperature Source Oral Pulse Rate 106 H 106 H Pulse Rate from SpO2 Sensor Respiratory Rate 26 H 26 H Respiratory Effort / Characteristics Non-Labored Spontaneous Respiratory Depth Normal Respiratory Pattern Blood Pressure 141/102 H Blood Pressure Mean 115 Pulse Oximetry 98 98 Oxygen Delivery Method Nasal Cannula Nasal Cannula Nasal Cannula Oxygen Flow Rate 4 4 4 Sepsis Recent Fever Within 48 Hours No Sepsis New/Unexplained Change in Mental Status No Sepsis Action Taken by Nursing No Action Required 01/26/23 07:30 01/26/23 08:10 01/26/23 07:30 Temperature Temperature Source Pulse Rate 102 H 101 H Pulse Rate from SpO2 Sensor 102 H Respiratory Rate 23 Respiratory Effort / Characteristics Spontaneous Respiratory Depth Normal Respiratory Pattern Regular Blood Pressure 130/91 Blood Pressure Mean 104 Pulse Oximetry 96 Oxygen Delivery Method Nasal Cannula Nasal Cannula Oxygen Flow Rate 4 4 Sepsis Recent Fever Within 48 Hours Sepsis New/Unexplained Change in Mental Status Sepsis Action Taken by Nursing 01/26/23 08:00 Temperature Temperature Source Pulse Rate 104 H Pulse Rate from SpO2 Sensor 103 H Respiratory Rate 14 Respiratory Effort / Characteristics Respiratory Depth Respiratory Pattern Blood Pressure 121/90 Blood Pressure Mean 100 Pulse Oximetry 94 Oxygen Delivery Method Room Air Oxygen Flow Rate 4 Sepsis Recent Fever Within 48 Hours Sepsis New/Unexplained Change in Mental Status Sepsis Action Taken by Nursing GENERAL: Patient is awake alert in no acute distress patient is resting comfortably and showing no signs of anxiety; patient is speaking in full sentences EYES: The conjunctivae are clear. The pupils are round and reactive. EARS, NOSE, MOUTH AND THROAT: The nose is without any evidence of any deformity. Mucous membranes are moist. Tongue is midline. NECK: The neck is nontender and supple. RESPIRATORY: Normal respiratory effort is noted there is no evidence of wheezing rhonchi or rales CARDIOVASCULAR: Regular rate and rhythm noted there no murmurs rubs or gallops normal S1 normal S2. GASTROINTESTINAL: The abdomen is soft. Abdomen is nontender. BACK: No midline tenderness or or step-off noted range of motion in flexion extension as well as rotation no signs of muscle spasm noted MUSCULOSKELETAL/EXTREMITIES: There is no evidence of gross deformity full range of motion is noted in the hips and shoulders. Bilateral lower extremity edema SKIN: There is no obvious evidence of any rash. There are no petechiae, pallor or cyanosis noted. NEUROLOGIC: Patient is awake alert and oriented x3 strength is symmetric Course Reevaluation(s) Reevaluation #1: Patient on my repeat examination is much improved. Patient is down to 4.5 L on a nasal cannula oxygen delivery. Patient was offered to go home he states that he believes if he went home he would return immediately as he has been having increased shortness of breath. Time: 09:00 Consultations Consultation #1: Case was discussed with the [facility] Hospitalist for admission Time: 09:01 Medical Decision Making Medical Records Attestation: I reviewed the patient's medical records. Home Medications Current Medication List: was personally reviewed by me Laboratory Data Attestation: I reviewed the patient's lab results. Lab work interpreted by me is unremarkable 01/26/23 07:19 01/26/23 07:19 Lab Results 01/26/23 01/26/23 01/26/23 Range/Units 07:19 07:19 07:19 WBC 9.52 (4.8-10.8) K/ul RBC 4.31 L (4.70-6.10) M/uL Hgb 11.8 L (14.0-18.0) g/dl Hct 38.6 L (42.0-52.0) % MCV 89.6 (80.0-100.0) fL MCH 27.4 (25.0-34.0) pg MCHC 30.6 L (32.0-36.0) g/dL RDW Std Deviation 55.2 H (36.4-46.3) fL RDW Coeff of Jem 16.8 H (11.5-14.5) % Plt Count 230 (130-400) K/uL MPV 9.6 (9.4-12.4) fL Immature Gran % (Auto) 0.3 % Neut % (Auto) 73.3 % Lymph % (Auto) 13.8 % [place] % (Auto) 6.6 % Eos % (Auto) 5.6 % Baso % (Auto) 0.4 % Neut # (Auto) 6.98 H (1.40-6.50) K/uL Lymph # (Auto) 1.31 (1.20-3.40) K/uL [place] # (Auto) 0.63 H (0.11-0.59) K/uL Eos # (Auto) 0.53 H (0.00-0.50) K/uL Baso # (Auto) 0.04 (0.00-0.20) K/uL Immature Gran # (Auto) 0.03 (0.01-0.20) K/uL PT 11.0 (9.0-12.0) Seconds INR 1.0 (0.9-1.1) APTT 26.2 (21.0-31.0) Seconds PTT Ratio 0.9 Sodium 140 (136-145) mmol/L Potassium 4.4 (3.5-5.1) mmol/L Chloride 104 (98-107) mmol/L Carbon Dioxide 31 (21-32) mmol/L Anion Gap 5 (3-11) BUN 12 (6-23) mg/dl Creatinine 0.81 (0.6-1.4) mg/dl Est Cr Clr Drug Dosing 98.0 ml/min Est GFR ( Amer) 104.4 ml/min Est GFR (Non-Af Amer) 90.0 ml/min BUN/Creatinine Ratio 14.8 (10-20) Glucose 112 H (70-99(Fasting)) mg/dl Lactate (0.4-2.0) mmol/L Calcium 9.6 (8.6-10.3) mg/dl Magnesium 1.9 (1.7-2.4) mg/dl Total Bilirubin 1.0 (0.2-1.0) mg/dl Direct Bilirubin 0.2 (0-0.2) mg/dl AST 14 (13-39) U/L ALT 9 (7-52) U/L Alkaline Phosphatase 84 (34-104) U/L Troponin I High Sens 3.0 (0-20) pg/ml B-Natriuretic Peptide (0-100) pg/ml Total Protein 7.0 (6.0-8.3) gm/dl Albumin 3.9 (3.4-5.0) gm/dl Procalcitonin (0-0.5) ng/ml 01/26/23 01/26/23 01/26/23 Range/Units 07:19 07:19 07:19 WBC (4.8-10.8) K/ul RBC (4.70-6.10) M/uL Hgb (14.0-18.0) g/dl Hct (42.0-52.0) % MCV (80.0-100.0) fL MCH (25.0-34.0) pg MCHC (32.0-36.0) g/dL RDW Std Deviation (36.4-46.3) fL RDW Coeff of Jem (11.5-14.5) % Plt Count (130-400) K/uL MPV (9.4-12.4) fL Immature Gran % (Auto) % Neut % (Auto) % Lymph % (Auto) % [place] % (Auto) % Eos % (Auto) % Baso % (Auto) % Neut # (Auto) (1.40-6.50) K/uL Lymph # (Auto) (1.20-3.40) K/uL [place] # (Auto) (0.11-0.59) K/uL Eos # (Auto) (0.00-0.50) K/uL Baso # (Auto) (0.00-0.20) K/uL Immature Gran # (Auto) (0.01-0.20) K/uL PT (9.0-12.0) Seconds INR (0.9-1.1) APTT (21.0-31.0) Seconds PTT Ratio Sodium (136-145) mmol/L Potassium (3.5-5.1) mmol/L Chloride (98-107) mmol/L Carbon Dioxide (21-32) mmol/L Anion Gap (3-11) BUN (6-23) mg/dl Creatinine (0.6-1.4) mg/dl Est Cr Clr Drug Dosing ml/min Est GFR ( Amer) ml/min Est GFR (Non-Af Amer) ml/min BUN/Creatinine Ratio (10-20) Glucose (70-99(Fasting)) mg/dl Lactate 1.1 (0.4-2.0) mmol/L Calcium (8.6-10.3) mg/dl Magnesium (1.7-2.4) mg/dl Total Bilirubin (0.2-1.0) mg/dl Direct Bilirubin (0-0.2) mg/dl AST (13-39) U/L ALT (7-52) U/L Alkaline Phosphatase (34-104) U/L Troponin I High Sens (0-20) pg/ml B-Natriuretic Peptide 26 (0-100) pg/ml Total Protein (6.0-8.3) gm/dl Albumin (3.4-5.0) gm/dl Procalcitonin < 0.05 (0-0.5) ng/ml Imaging Data Attestation: I personally reviewed and interpreted this imaging study as follows: My Impression: Chest x-ray interpreted by me negative for infiltrate Radiologist's Impression: Chest X-Ray 01/26/23 06:50 XR chest 1V portable CLINICAL HISTORY: Sepsis. COMPARISON STUDY: Chest radiograph September 24, 2022. Chest radiograph November 08, 2022. FINDINGS: Lung volumes are mildly diminished, unchanged. Linear bibasilar d ensities favor atelectasis. There is no pneumothorax or pleural effusion. Cardiac size is normal. Mediastinal contours are normal. There is no evidence for pulmonary edema. Underlying emphysema. IMPRESSION: No acute cardiopulmonary findings. ACT 112: Negative or not required by law. Electronically signed by: Chaitanya Srivastava M.D. 01/26/2023 7:47 AM ECG Data Attestation: I personally reviewed and interpreted this ECG as follows: Additional Comments: EKG interpreted by me sinus tachycardia rate of 103, normal intervals normal axis, no obvious ST segment elevation or depression Telemetry was ordered by me, interpreted as sinus tachycardia rate of 103 MDM Narrative Medical decision making differential diagnosis includes COPD, bronchitis, upper respiratory tract infection, pneumonia, CHF Plan is to check labs, EKG, chest x-ray I have reviewed a discharge summary of November 04, 2022 in which the patient was admitted at the time for COPD, patient's CODE STATUS states DNR as well in that summary Patient will be admitted for COPD exacerbation. Patient is in no significant respiratory distress at the time of admission. Patient's pulse oximetry is greater than 92 he is on 4.5 L of oxygen via the nasal cannula which is his typical oxygen delivery. I do not suspect a pneumonia or pulmonary embolism in this patient at this time Impression & Plan COPD, severe, Acute dyspnea Discharge Plan Visit Data Chief Complaint: Shortness of Breath/Dyspnea Stated Complaint: SHORT OF BREATH ED Provider: Dale Luis Discharge Problem: COPD, severe, Acute dyspnea Patient Disposition: Admitted As Inpatient Forms Stand Alone Forms: My [facility] Prescriptions Prescriptions: No Action albuterol sulfate 90 mcg/actuation HFA aerosol inhaler 1 - 2 puff INHALATION Q4H PRN (Reason: Shortness Of Breath) Qty: 54 5RF metoprolol succinate 50 mg tablet extended release 24 hr 50 mg PO DAILY Qty: 90 3RF Rx Instructions: TAKE 1 TABLET BY MOUTH ONCE DAILY sumatriptan succinate 50 mg tablet 50 mg PO Q2H MDD 4 tablets/24hrs PRN (Reason: migraine headache) Qty: 9 5RF (DME) Oxygen Home Liters Per Minute See Rx Instructions .ROUTE .MEDSUPPLY Qty: 1 0RF Rx Instructions: patient requires continuous flow oxygen at 4 LPM at rest and 5 LPM with ambulation. Patient would benefit from a concentrator that goes up to 6 L/M ; [employer] fluticasone furoate-vilanterol [Breo Ellipta] 200-25 mcg/dose blister with device 1 inh inhalation DAILY Qty: 60 2RF Hold Instructions: $75 after insurance. pregabalin 100 mg capsule 100 mg PO BID Qty: 60 2RF (DME) nebulizer accessories Kit See Rx Instructions .ROUTE .MEDSUPPLY Qty: 1 0RF Rx Instructions: As directed (DME) Compact Compressor Nebulizer Misc See Rx Instructions .Route Qty: 1 0RF Rx Instructions: As directed acetaminophen 500 mg tablet 500 mg PO Q4 MDD 3g PRN (Reason: Pain) Rx Instructions: x 3 days then 1 cap every 4 hours as need for pain. Do not exceed 3000mg acetaminophen every 24 hours. (DME) Portable Oxygen Misc See Rx Instructions .Route Rx Instructions: As directed Incruse Ellipta 62.5 mcg/actuation blister with device 1 inh inhalation DAILY Qty: 30 5RF atorvastatin 40 mg tablet 40 mg PO DAILY Qty: 90 3RF Probiotic Colon Support 1.5 billion cell Capsule 1 cap PO QAM ferrous sulfate 325 mg (65 mg iron) tablet,delayed release (/EC) 325 mg PO BID Qty: 60 0RF polyethylene glycol 3350 [Miralax] 17 gram powder in packet 17 g PO DAILY PRN (Reason: constipation) Qty: 30 0RF multivitamin with folic acid [Daily-[place] (with folic acid)] 400 mcg Tablet 1 tab PO QAM Qty: 30 0RF magnesium oxide 400 mg (241.3 mg magnesium) tablet 400 mg PO QAM potassium chloride 20 mEq tablet extended release 20 meq PO TID Qty: 7 0RF cyanocobalamin (vitamin B-12) [Vitamin B-12] 1,000 mcg Tablet 1,000 mcg PO HS docusate sodium 100 mg capsule 100 mg PO BID PRN (Reason: Constipation) guaifenesin [Mucinex] 600 mg Tablet Extended Release 12hr 600 mg PO Q12 Qty: 30 0RF tamsulosin 0.4 mg Capsule 0.4 mg PO HS Qty: 30 4RF furosemide [Lasix] 20 mg tablet 40 mg PO Q OTHER DAY Qty: 60 5RF sodium chloride 7 % Solution For Nebulization 4 ml NEB BIDR Qty: 240 0RF Rx Instructions: mix with Duoneb and use BID in nebulizer formoterol fumarate [Perforomist] 20 mcg/2 mL solution for nebulization 2 ml inhalation BID Qty: 60 0RF budesonide 0.5 mg/2 mL suspension for nebulization 0.5 mg inhalation BID Qty: 60 0RF ipratropium-albuterol 0.5 mg-3 mg(2.5 mg base)/3 mL solution for nebulization 3 ml inhalation QID PRN (Reason: wheezing) Qty: 180 3RF Referrals Referrals: PCP,NO [Primary Care Provider] -
--- NOTE | 2023-01-26 07:49 | XRay Report ---
XR chest 1V portable CLINICAL HISTORY: Sepsis. COMPARISON STUDY: Chest radiograph September 24, 2022. Chest radiograph November 08, 2022. FINDINGS: Lung volumes are mildly diminished, unchanged. Linear bibasilar densities favor atelectasis . There is no pneumothorax or pleural effusion. Cardiac size is normal. Mediastinal contours are norm al. There is no evidence for pulmonary edema. Underlying emphysema. IMPRESSION: No acute cardiopulmonary findings. ACT 112: Negative or not required by law. Electronically signed by: Chaitanya Srivastava M.D. 01/26/2023 7:47 AM
[2023-01-26 07:51] LABS: Basophils # (auto) 0.04 K/uL (0.00-0.20); Basophils % (auto) 0.4 %; Eosinophils # (auto) 0.53 K/uL (0.00-0.50); Eosinophils % (auto) 5.6 %; Hematocrit (blood only) 38.6 % (42.0-52.0); Hemoglobin 11.8 g/dl (14.0-18.0); Immature Granulocytes # (auto) 0.03 K/uL (0.01-0.20); Immature Granulocytes % (auto) 0.3 %; Lymphocytes # (auto) 1.31 K/uL (1.20-3.40); Lymphocytes % (auto) 13.8 %; Mean Corpuscular Hemoglobin 27.4 pg (25.0-34.0); Mean Corpuscular Hgb Conc 30.6 g/dL (32.0-36.0); Mean Corpuscular Volume 89.6 fL (80.0-100.0); Mean Platelet Volume 9.6 fL (9.4-12.4); Monocytes # (auto) 0.63 K/uL (0.11-0.59); Monocytes % (auto) 6.6 %; Neutrophils # (auto) 6.98 K/uL (1.40-6.50); Neutrophils % (auto) 73.3 %; Platelet Count 230 K/uL (130-400); RDW Coefficient of Variation 16.8 % (11.5-14.5); RDW Standard Deviation 55.2 fL (36.4-46.3); Red Blood Count 4.31 M/uL (4.70-6.10); White Blood Count 9.52 K/ul (4.8-10.8)
[2023-01-26 08:06] LABS: Albumin Level 3.9 gm/dl (3.4-5.0); BUN Creatinine Ratio 14.8 (10-20); Bilirubin Direct 0.2 mg/dl (0-0.2); Calcium 9.6 mg/dl (8.6-10.3); Est GFR (African American) 104.4 ml/min; Magnesium 1.9 mg/dl (1.7-2.4); Potassium 4.4 mmol/L (3.5-5.1)
[2023-01-26 08:16] LABS: Partial Thromboplastin Ratio 0.9; Partial Thromboplastin Time 26.2 Seconds (21.0-31.0)
[2023-01-26 09:22] LABS: Appearance Urine Clear (Clear); Bacteria Urine Automated 2+ (Negative); Bilirubin Urine Negative (Negative); Blood Urine Negative (Negative); Color Urine Yellow; Epithelial Cell Urine Auto >30 /lpf (0-5); Glucose Urine UA Negative (Negative); Ketones Urine 1+ (Negative); Leukocyte Esterase Urine 2+ (Negative); Nitrite Urine Negative (Negative); Protein Urine Negative (Negative); RBC Urine Automated 0-4 /hpf (0-4); Specific Gravity Urine 1.021 (1.000-1.030); Urobilinogen Urine Negative (Negative); WBC Urine Automated >30 /hpf (0-5)
[2023-01-26] MEDS ORDERED: cefTRIAXone SODIUM 2,000 MG/50 ML BAG IV STA (09:58)
[2023-01-26 10:11] LABS: Base Excess VBG 3.4 mEq/L; HCO3 VBG 30 mmol/L; Oxygen Saturation VBG 76.9 %; PCO2 VBG 50 mmHg (38-50); PO2 VBG 44 mmHg; pH VBG 7.38 (7.36-7.41)
--- NOTE | 2023-01-26 10:23 | History & Physical Report ---
Date of Service January 26, 2023 Assessment & Plan (1) Acute and chronic respiratory failure: Plan: acute component - likely 2nd COPD exacerbation; can't rule out PE, can't rule out decompensated CHF; can't rule out pneumonia. chronic component - COPD. (2) Acute exacerbation of chronic obstructive airways disease: Plan: Marked wheezing on examination with improvement noted by patient with steroids & bronchodilators. s/p solumedrol 125mg x 1 en route to [facility] by EMS. cont steroids - solumedrol 40mg BID IV. schedule duonebs. mucinex. flutter valve/incentive spirometry. if he has sputum production can send for culture. cont home inhalers. (3) Chest pain: Plan: left-sided, occurred last pm. troponin upon presentation negative. CTA chest ordered --> rule out VTE. pain may simply have been due to bronchoconstriction. (4) Essential hypertension: Plan: cont home medications. (5) BPH loc w urin obs/LUTS: Plan: cont flomax (6) Peripheral neuropathy: Plan: cont lyrica BID (7) Anemia: Plan: H/H mildly low 2021 - Fe studies, B12, folate checked - iron studies c/w iron deficiency recheck Fe studies this admission recheck B12/folate (8) UTI (urinary tract infection): Plan: u/a suggestive of UTI rocephin 2gm IV daily follow culture (9) DVT prophylaxis: Plan: depending on CTA chest results if CTA is negative for PE then lovenox 40mg daily Plan pt's updated by phone today History of Present Illness Chief Complaint: severe shortness of breath Primary Care Provider: NO PCP 72yo male with history of COPD with resulting chronic hypoxic respiratory failure on home O2 continuously - 4.5 liters via NC - presents from home via EMS due to severe, acute dyspnea. Patient reports he has had chest congestion with mild cough for a few days. No fevers or chills. Normal appetite this week up until last night. Cough was nonproductive. No sick contacts at home. About 8pm last night while watching TV he had a vague left-sided chest discomfort that self-resolved after a few minutes. He went to bed last night in usual fashion feeling ok and stable on his usual home O2 amount. Then, about 0530 this am, he got out of bed to use the bathroom and upon return to his bed (the bed and bathroom are by ~10 feet) he was severely dyspneic. He initially turned his O2 up to 6 L and, because of not feeling any better, his increased the O2 further up to 10+ liters. He then took an albuterol neb without relief. At that point 911 was called. En route to [facility] EMS gave 125mg of IV solumedrol along with a duoneb. In the ER his O2 was titrated back down to 4.5 liters. During my admission assessment he was satting 96-97% on the 4.5 liters. Thus, I lowered his NC O2 to 3.5 liters. Still satting mid 90s on such. Patient does report that he feels better in comparison to early this am. Allergies Allergy/AdvReac Type Severity Reaction Status Date / Time No Known Allergies Allergy Verified 01/02/23 10:04 Home Medications Medication Instructions Recorded Confirmed Type Lactobacills gasseri-Bifidobac 1 cap PO QAM 02/25/19 01/26/23 History bifidum,longum 1.5 billion cell capsule (Probiotic Colon Support) nebulizer accessories #1 ea 12/22/20 01/02/23 Rx cyanocobalamin (vitamin B-12) 1,000 mcg PO HS 03/08/21 01/26/23 History 1,000 mcg tablet (Vitamin B-12) ferrous sulfate 325 mg (65 mg 325 mg PO BID #60 tabs 05/03/21 01/26/23 Rx iron) tablet,delayed release multivitamin with folic acid 400 1 tab PO QAM #30 tabs 05/03/21 01/26/23 Rx mcg tablet (Daily-[place] (with folic acid)) polyethylene glycol 3350 17 gram 17 g PO DAILY PRN constipation #30 05/03/21 01/26/23 Rx oral powder packet (Miralax) ea magnesium oxide 400 mg (241.3 mg 400 mg PO QAM 06/17/21 01/26/23 History magnesium) tablet nebulizers (Compact Compressor #1 ea 09/29/21 01/02/23 Rx Nebulizer) docusate sodium 100 mg capsule 100 mg PO BID PRN Constipation 01/13/22 01/26/23 History Portable Oxygen 03/08/22 01/02/23 History albuterol sulfate 90 mcg/actuation 1 - 2 puff inhalation Q4H PRN 04/19/22 01/26/23 Rx aerosol inhaler Shortness Of Breath #54 grams metoprolol succinate 50 mg 50 mg PO DAILY #90 tabs 04/26/22 01/26/23 Rx tablet,extended release 24 hr guaifenesin 600 mg tablet, 600 mg PO Q12 #30 tabs 06/27/22 01/26/23 Rx extended release 12 hr (Mucinex) acetaminophen 500 mg tablet 500 mg PO Q4 PRN Pain 07/24/22 01/26/23 History budesonide 0.5 mg/2 mL suspension 0.5 mg (2 mL) inhalation BID #60 mL 09/27/22 01/26/23 Rx for nebulization formoterol fumarate 20 mcg/2 mL 2 ml inhalation BID #60 mL 09/27/22 01/26/23 Rx solution for nebulization (Perforomist) furosemide 20 mg tablet (Lasix) 40 mg PO Q OTHER DAY #60 tabs 09/27/22 01/26/23 Rx ipratropium 0.5 mg-albuterol 3 mg 3 ml inhalation QID PRN wheezing 09/27/22 01/26/23 Rx (2.5 mg base)/3 mL nebulization #180 mL soln sodium chloride 7 % for 4 ml NEB BIDR #240 mL 09/27/22 01/26/23 Rx nebulization tamsulosin 0.4 mg capsule 0.4 mg PO HS #30 caps 09/27/22 01/26/23 Rx sumatriptan succinate 50 mg tablet 50 mg PO Q2H PRN migraine headache 09/29/22 01/26/23 Rx #9 tabs umeclidinium 62.5 mcg/actuation 1 inh inhalation DAILY #30 ea 10/04/22 01/26/23 Rx blister powder for inhalation (Incruse Ellipta) Oxygen Home #1 ea 10/25/22 01/02/23 Rx potassium chloride 20 mEq 20 meq PO TID #7 tabs 11/10/22 01/26/23 Rx tablet,extended release atorvastatin 40 mg tablet 40 mg PO DAILY #90 tabs 12/06/22 01/26/23 Rx Breo Ellipta 200 mcg-25 mcg/dose 1 inh inhalation DAILY #60 ea 12/07/22 01/26/23 Rx powder for inhalation (fluticasone furoate-vilanterol) pregabalin 100 mg capsule 100 mg PO BID #60 caps 12/20/22 01/26/23 Rx prednisone 20 mg tablet 20 mg PO DIRECTED 01/26/23 01/26/23 History Past Med/Surg History Medical History (Updated 01/26/23 @ 10:22 by Kannan Kern MD) Chronic anemia Colitis COPD (chronic obstructive pulmonary disease) Gout Hyperlipidemia Hypertension Incarcerated left inguinal hernia Low back pain Migraine On home oxygen therapy 2-4L continuous Orthostatic hypotension Per records Osteoarthritis Right inguinal hernia Seizure 2018 (no known etiology) 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 Mother Swelling Uncle Myocardial infarction Other No significant family history Denies family history of Ovarian cancer Prostate cancer Breast cancer Colorectal cancer Social History (Updated 01/26/23 @ 10:16 by Kannan Kern MD) Smoking Status: Former smoker Tobacco Type: Cigarettes Age Started Using Tobacco: 14; Age Quit Using Tobacco: 69; packs per day: 1; Cigarettes Per Day: quit 2-4 years ago; Second Hand Exposure: No; Do You Dip or Chew Tobacco: No; Hx Alcohol Use: No Hx Substance Use: No Preferred Language: Romansh Communication Ability: Effective Visual Impairment: Limited Hearing Ability: Normal Neonatal Intensive Care Unit Nurse Required: No Beliefs That Will Affect Care: Spiritual marital status: Current Living Situation: Spouse and Family Current Living Situation Comment: , granddaughter and her , 12 year old boy current occupational status: retired 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 How many Children do You have: 2 How many Children do You have Comment: sons Feels Safe at Home: Yes Childhood Exposure to Second-Hand Smoke: Yes Diet: regular Diet Comment: regular caffeine: No during the past year weight has: remained stable Dental Care, Regularly: No Physical Activity Frequency: Does not Exercise Seatbelt Use: always Sunscreen Use: No Assistive Devices: Cane, Denture - Upper, Denture - Lower, Glasses, Oxygen - Continuous, Scooter/Electric Scooter and Walker Review of Systems Constitutional: gen - no fevers or chills; +weight gain - uncertain amount - over months time; eating fine until last pm HENT - no sore throat or runny nose CV - left-sided chest pain on 01/25 - brief, self-resolved; no orthopnea; +edema Pulm - cough, congestion, dyspnea at rest, KELLEY, no hemoptysis GI - no abd pain, nausea or emesis - no dysuria musculo - no myalgias endo - denies diabetes psych - denies depression skin - no rash neuro - headaches x 2-3 days Physical Exam Physical Exam: gen - NAD but does purse his lips with expiratory phase of breathing; ?slight confusion? (vs baseline mentation?) eyes - slight proptosis, PERRL HENT - Tms clear b/l; nose clear; mouth - edentulous; no thrush plaques; MMM neck - no JVD, no lymph nodes heart - tachy, s1 s2, no murmurs or gallops lungs - b/l basilar fine, dry rales; mild pursed lip breathing; mild tachypnea; but no retractions; mild end-exp wheezes b/l anteriorly & posteriorly abd - soft NT ND BS+; NO HSM ext - 1+ edema, pulses 2+ b/l neuro - strength 5/5 x 4 exts; DTRs 2+ b/l upper and lower exts skin - no generalized rash psych - ?slight confusion vs baseline mentation; able to give full history, however musculo - no joint effusions Results & Data Results & Data Vital Signs (Past 12 Hours) Vital Signs Temp Pulse Resp BP Pulse Ox O2 Del Method O2 Flow Rate 01/26/23 09:30 106 H 23 148/109 H 96 Nasal Cannula 4 01/26/23 09:00 108 H 22 173/105 H 01/26/23 08:30 100 H 16 150/100 H 94 01/26/23 08:00 104 H 14 121/90 94 Room Air 4 01/26/23 07:30 101 H 23 130/91 96 Nasal Cannula 4 01/26/23 08:10 102 H 01/26/23 07:30 Nasal Cannula 4 01/26/23 07:30 Nasal Cannula 4 01/26/23 06:55 36.7 C 106 H 26 H 141/102 H 98 Nasal Cannula 4 01/26/23 06:50 106 H 26 H 98 Nasal Cannula 4 Laboratory Results Laboratory Results - last 24 hr 01/26/23 01/26/23 01/26/23 07:19 07:19 07:19 WBC 9.52 RBC 4.31 L Hgb 11.8 L Hct 38.6 L MCV 89.6 MCH 27.4 MCHC 30.6 L RDW Std Deviation 55.2 H RDW Coeff of Jem 16.8 H Plt Count 230 MPV 9.6 Immature Gran % (Auto) 0.3 Neut % (Auto) 73.3 Lymph % (Auto) 13.8 Davis % (Auto) 6.6 Eos % (Auto) 5.6 Baso % (Auto) 0.4 Neut # (Auto) 6.98 H Lymph # (Auto) 1.31 Davis # (Auto) 0.63 H Eos # (Auto) 0.53 H Baso # (Auto) 0.04 Immature Gran # (Auto) 0.03 PT 11.0 INR 1.0 APTT 26.2 PTT Ratio 0.9 VBG pH VBG pCO2 VBG pO2 VBG HCO3 VBG O2 Saturation VBG Base Excess Sodium 140 Potassium 4.4 Chloride 104 Carbon Dioxide 31 Anion Gap 5 BUN 12 Creatinine 0.81 Est Cr Clr Drug Dosing 98.0 Est GFR ( Amer) 104.4 Est GFR (Non-Af Amer) 90.0 BUN/Creatinine Ratio 14.8 Glucose 112 H Lactate Calcium 9.6 Magnesium 1.9 Total Bilirubin 1.0 Direct Bilirubin 0.2 AST 14 ALT 9 Alkaline Phosphatase 84 Troponin I High Sens 3.0 B-Natriuretic Peptide Total Protein 7.0 Albumin 3.9 Procalcitonin Urine Color Urine Appearance Urine pH Ur Specific [place] Urine Protein Urine Glucose (UA) Urine Ketones Urine Blood Urine Nitrite Urine Bilirubin Urine Urobilinogen Ur Leukocyte Esterase Urine WBC (Auto) Urine RBC (Auto) U Hyaline Cast (Auto) U Epithel Cells (Auto) Urine Bacteria (Auto) SARS-CoV-2, RNA, NAAT 01/26/23 01/26/23 01/26/23 07:19 07:19 07:19 WBC RBC Hgb Hct MCV MCH MCHC RDW Std Deviation RDW Coeff of Jem Plt Count MPV Immature Gran % (Auto) Neut % (Auto) Lymph % (Auto) Davis % (Auto) Eos % (Auto) Baso % (Auto) Neut # (Auto) Lymph # (Auto) Davis # (Auto) Eos # (Auto) Baso # (Auto) Immature Gran # (Auto) PT INR APTT PTT Ratio VBG pH VBG pCO2 VBG pO2 VBG HCO3 VBG O2 Saturation VBG Base Excess Sodium Potassium Chloride Carbon Dioxide Anion Gap BUN Creatinine Est Cr Clr Drug Dosing Est GFR ( Amer) Est GFR (Non-Af Amer) BUN/Creatinine Ratio Glucose Lactate 1.1 Calcium Magnesium Total Bilirubin Direct Bilirubin AST ALT Alkaline Phosphatase Troponin I High Sens B-Natriuretic Peptide 26 Total Protein Albumin Procalcitonin < 0.05 Urine Color Urine Appearance Urine pH Ur Specific [place] Urine Protein Urine Glucose (UA) Urine Ketones Urine Blood Urine Nitrite Urine Bilirubin Urine Urobilinogen Ur Leukocyte Esterase Urine WBC (Auto) Urine RBC (Auto) U Hyaline Cast (Auto) U Epithel Cells (Auto) Urine Bacteria (Auto) SARS-CoV-2, RNA, NAAT 01/26/23 01/26/23 01/26/23 09:00 09:07 10:04 WBC RBC Hgb Hct MCV MCH MCHC RDW Std Deviation RDW Coeff of Jem Plt Count MPV Immature Gran % (Auto) Neut % (Auto) Lymph % (Auto) Davis % (Auto) Eos % (Auto) Baso % (Auto) Neut # (Auto) Lymph # (Auto) Davis # (Auto) Eos # (Auto) Baso # (Auto) Immature Gran # (Auto) PT INR APTT PTT Ratio VBG pH 7.38 VBG pCO2 50 VBG pO2 44 VBG HCO3 30 VBG O2 Saturation 76.9 VBG Base Excess 3.4 Sodium Potassium Chloride Carbon Dioxide Anion Gap BUN Creatinine Est Cr Clr Drug Dosing Est GFR ( Amer) Est GFR (Non-Af Amer) BUN/Creatinine Ratio Glucose Lactate Calcium Magnesium Total Bilirubin Direct Bilirubin AST ALT Alkaline Phosphatase Troponin I High Sens B-Natriuretic Peptide Total Protein Albumin Procalcitonin Urine Color Yellow Urine Appearance Clear Urine pH 6.0 Ur Specific [place] 1.021 Urine Protein Negative Urine Glucose (UA) Negative Urine Ketones 1+ H Urine Blood Negative Urine Nitrite Negative Urine Bilirubin Negative Urine Urobilinogen Negative Ur Leukocyte Esterase 2+ H Urine WBC (Auto) >30 H Urine RBC (Auto) 0-4 U Hyaline Cast (Auto) 5-10 H U Epithel Cells (Auto) >30 H Urine Bacteria (Auto) 2+ H SARS-CoV-2, RNA, NAAT NEGATIVE Diagnostic Findings Chest X-Ray 01/26/23 06:50 XR chest 1V portable CLINICAL HISTORY: Sepsis. COMPARISON STUDY: Chest radiograph September 24, 2022. Chest radiograph November 08, 2022. FINDINGS: Lung volumes are mildly diminished, unchanged. Linear bibasilar densities favor atelectasis. There is no pneumothorax or pleural effusion. C ardiac size is normal. Mediastinal contours are normal. There is no evidence for pulmonary edema. Underlying emphysema. IMPRESSION: No acute cardiopulmonary findings. ACT 112: Negative or not required by law. Electronically signed by: Chaitanya Srivastava M.D. 01/26/2023 7:47 AM EKG - my reading - sinus tach, no ST changes Code Status & VTE Plan Code Status DNR/DNI - discussed w/ patient PG Care Time/CCT Total # of Minutes Spent Total Time Spent with Patient: Total time spent is greater than 50% in coordination of care (as documented) at patient's floor/unit and/or counseling patient: Coding Level of Care Code 19711 INT INP/OBS CARE 3/75MIN Diagnoses Acute and chronic respiratory failure J96.20 Acute exacerbation of chronic obstructive airways disease J44.1 Chest pain R07.9 Essential hypertension I10 BPH loc w urin obs/LUTS N40.1 Peripheral neuropathy G62.9 Peripheral neuropathy type: polyneuropathy, unspecified Anemia D64.9 UTI (urinary tract infection) N39.0 Hematuria presence: without hematuria Urinary tract infection type: site unspecified DVT prophylaxis Z29.9 (6) Peripheral neuropathy Peripheral neuropathy type: polyneuropathy, unspecified Qualified Code(s): G62.9 - Polyneuropathy, unspecified (8) UTI (urinary tract infection) Hematuria presence: without hematuria Urinary tract infection type: site unspecified Qualified Code(s): N39.0 - Urinary tract infection, site not specified
[2023-01-26] MEDS ORDERED: OPTIRAY 320 500ml IV ONE (11:24)
--- NOTE | 2023-01-26 11:38 | CT Scan Report ---
CT ANGIOGRAPHY OF THE CHEST, PULMONARY EMBOLUS PROTOCOL CLINICAL HISTORY: Left-sided chest pain and dyspnea. COPD. Evaluate for pulmonary embolus. COMPARISON STUDY: Chest CT September 24, 2022. Chest radiograph performed earlier today. TECHNIQUE: Following IV administration of 108 mL of Optiray, helical axial images of the chest were o btained utilizing the pulmonary embolus protocol. Maximal intensity projections and sagittal and cor onal reformats were viewed on an independent 3D workstation. IV contrast was administered without co mplication. Automated exposure control was utilized for the study. A dose lowering technique was ut ilized adhering to the principles of ALARA. CT DOSE: 862.13 mGy.cm FINDINGS: No pulmonary emboli are identified. There is no thoracic aortic dissection. Size of the he art is normal. There is moderate coronary artery calcification. No enlarged axillary, mediastinal or hilar lymph nodes are present. Emphysema is again noted. Subpleural right lower lobe opacity on image 96 of 243 favors atelectasis. Moderate secretions within the airways are noted. These include mucus within the right mainstem bronchus as well as multiple segmental right lower lobe bronchi. There is b ronchial wall thickening within the lower lobes. There is no pneumothorax or pleural effusion. No cav itation is present. Multiple old bilateral rib fractures are incidentally noted. Left hepatic lobe hy podense lesion is unchanged. This is benign. There are several gallstones within the gallbladder. IMPRESSION: 1. No pulmonary emboli identified. 2. Lower lobe bronchial wall thickening with scattered secretions within the airways. 3. Emphysema. 4. Subpleural right lower lobe opacity. This favors atelectasis. A developing pneumonia could appear similar although is considered less likely. ACT 112: Negative or not required by law. Electronically signed by: Chaitanya Srivastava M.D. 01/26/2023 11:36 AM
[2023-01-26] MEDS ORDERED: ACETAMINOPHEN 325 MG TAB PO PRN (13:43)
[2023-01-26] MEDS ORDERED: DOCUSATE SODIUM 100 MG CAP PO PRN (13:43)
[2023-01-26] MEDS ORDERED: SUMAtriptan succinate 50 MG TAB PO PRN (13:43)
[2023-01-26] MEDS ORDERED: ONDANSETRON INJ 2 MG/ML 2 ML VIAL IV PRN (13:43)
[2023-01-26] MEDS: ALBUT/IPRATROP 3MG/0.5MG NEB 3 ML VIAL INH SCH ×3 (16:00→19:26)
[2023-01-26] MEDS: UMECLIDINIUM BROMIDE 62.5MCG/BLISTER 7 PUFFS/INHALER INH SCH (18:04)
[2023-01-26] MEDS: FLUTICASONE/VILANTEROL 200/25MCG 14 PUFFS/INHALER INH SCH (18:04)
[2023-01-26] MEDS: METOPROLOL SUCC 50MG EXT REL TAB PO SCH (18:05)
[2023-01-26] MEDS: MULTIVITAMIN TAB PO SCH (18:06)
[2023-01-26] MEDS: DOXYCYCLINE HYCLATE 100 MG CAP PO SCH ×2 (18:06→20:02)
[2023-01-26] MEDS: FERROUS SULFATE 325 MG TAB PO SCH (18:06)
[2023-01-26] MEDS: ADVANCED PROBIOTIC 1250 MG CAPSULE PO SCH (18:06)
[2023-01-26] MEDS: SODIUM CHLOR 7% 4 ML NEB NEB SCH (19:25)
[2023-01-26] MEDS: FORMOTEROL 20 MCG/2 ML VIAL INH SCH (19:25)
[2023-01-26] MEDS: BUDESONIDE 0.5 MG/2 ML VIAL (PULMICORT) INH SCH (19:25)
[2023-01-26] MEDS: CYANOCOBALAMIN (B-12) 500 MCG TABLET PO SCH (20:02)
[2023-01-26] MEDS: guaiFENesin 600 MG TABCR PO SCH (20:02)
[2023-01-26] MEDS: TAMSULOSIN HCL 0.4 MG CAP PO SCH (20:02)
[2023-01-26] MEDS: methylPREDNISolone 40 MG in SYRINGE 0 ML IV SCH (20:05)
[2023-01-26] MEDS: PREGABALIN 100 MG CAP PO SCH (20:12)
--- NOTE | 2023-01-26 21:59 | Electrocardiogram Report ---
Test Reason : Blood Pressure : / mmHG Vent. Rate : 103 BPM Atrial Rate : 103 BPM P-R Int : 196 ms QRS Dur : 070 ms QT Int : 314 ms P-R-T Axes : 047 000 024 degrees QTc Int : 411 ms Sinus tachycardia Otherwise normal ECG When compared with ECG of 04-NOV-2022 19:26, Premature supraventricular complexes are no longer Present Confirmed by Atif Mccall ([id number]) on 01/26/2023 9:59:12 PM Referred By: REFERRED SELF Confirmed By:Atif Mccall
[2023-01-26] MEDS ORDERED: LORazepam 1 MG TAB PO STA (22:20)
[2023-01-27 06:32] LABS: Hematocrit (blood only) 39.2 % (42.0-52.0); Hemoglobin 12.2 g/dl (14.0-18.0); Mean Corpuscular Hemoglobin 27.6 pg (25.0-34.0); Mean Corpuscular Hgb Conc 31.1 g/dL (32.0-36.0); Mean Corpuscular Volume 88.7 fL (80.0-100.0); Mean Platelet Volume 9.8 fL (9.4-12.4); Platelet Count 257 K/uL (130-400); RDW Coefficient of Variation 16.7 % (11.5-14.5); RDW Standard Deviation 53.6 fL (36.4-46.3); Red Blood Count 4.42 M/uL (4.70-6.10)
[2023-01-27 06:58] LABS: BUN Creatinine Ratio 23.5 (10-20); Calcium 9.8 mg/dl (8.6-10.3); Est GFR (African American) 104.4 ml/min; Potassium 4.5 mmol/L (3.5-5.1)
[2023-01-27] MEDS: SODIUM CHLOR 7% 4 ML NEB NEB SCH ×2 (07:12→19:12)
[2023-01-27] MEDS: BUDESONIDE 0.5 MG/2 ML VIAL (PULMICORT) INH SCH ×2 (07:14→19:12)
[2023-01-27] MEDS: ALBUT/IPRATROP 3MG/0.5MG NEB 3 ML VIAL INH SCH ×4 (07:14→19:12)
[2023-01-27] MEDS: FORMOTEROL 20 MCG/2 ML VIAL INH SCH ×2 (07:14→19:12)
[2023-01-27 07:16] LABS: Ferritin 30.7 ng/ml (8-388)
[2023-01-27 08:25] LABS: Folate (Folic Acid),Ser orPlas > 22.30 ng/ml (>5.38)
[2023-01-27 08:26] LABS: Vitamin B12 > 1500 pg/ml (180-914)
[2023-01-27] MEDS: FERROUS SULFATE 325 MG TAB PO SCH ×2 (08:37→18:10)
[2023-01-27] MEDS: PREGABALIN 100 MG CAP PO SCH ×2 (08:37→21:45)
[2023-01-27] MEDS: MAGNESIUM OXIDE 400 MG TAB PO SCH (08:37)
[2023-01-27] MEDS: METOPROLOL SUCC 50MG EXT REL TAB PO SCH (08:37)
[2023-01-27] MEDS: ATORVASTATIN 40 MG TAB PO SCH (08:37)
[2023-01-27] MEDS: guaiFENesin 600 MG TABCR PO SCH ×2 (08:37→21:45)
[2023-01-27] MEDS: ADVANCED PROBIOTIC 1250 MG CAPSULE PO SCH (08:37)
[2023-01-27] MEDS: POLYETHYLENE (MIRALAX) 17 GM PACK PO SCH (08:37)
[2023-01-27] MEDS: MULTIVITAMIN TAB PO SCH (08:38)
[2023-01-27] MEDS: UMECLIDINIUM BROMIDE 62.5MCG/BLISTER 7 PUFFS/INHALER INH SCH (08:38)
[2023-01-27] MEDS: FLUTICASONE/VILANTEROL 200/25MCG 14 PUFFS/INHALER INH SCH (08:38)
[2023-01-27] MEDS ORDERED: cefTRIAXone SODIUM 2,000 MG in DEXTROSE 5 % MINI-B 50 ML IV SCH (09:00)
[2023-01-27] MEDS: methylPREDNISolone 40 MG in SYRINGE 0 ML IV SCH ×2 (10:16→21:45)
[2023-01-27] MEDS: DOXYCYCLINE HYCLATE 100 MG CAP PO SCH ×2 (10:16→21:45)
[2023-01-27] MEDS: AMPICILLIN/SULBACTAM SOD 3,000 MG in SODIUM CHLOR 0.9% MINI-B 100 ML IV SCH ×3 (14:56→23:13)
--- NOTE | 2023-01-27 20:09 | Hospitalist Progress Note ---
Date of Service January 27, 2023 Assessment & Plan (1) Acute and chronic respiratory failure: Plan: acute component - 2nd COPD exacerbation and probable RLL pneumonia chronic component - COPD. (2) Acute exacerbation of chronic obstructive airways disease: Plan: modestly improved today. cont IV solumedrol 40mg IV BID - no wean today. cont scheduled duonebs. cont BID mucinex. cont flutter valve/incentive spirometry. cont home inhalers. (3) RLL pneumonia: Plan: CTA chest yesterday with probable RLL pneumonia. Received rocephin/doxy yesterday. Change rocephin to unasyn since urine cx is growing enterococcus. (4) Chest pain: Plan: left-sided, occurred the night prior to admission. no evidence of PE on CTA chest. troponin negative. suspect due to bronchoconstriction. can't rule out musculoskeletal. either way it has not recurred. (5) Essential hypertension: Plan: cont home medications. control is reasonable at this time. resume lasix in the am tomorrow. (6) BPH loc w urin obs/LUTS: Plan: cont flomax (7) Peripheral neuropathy: Plan: cont lyrica BID (8) Anemia: Plan: H/H mildly low but stable 2021 - Fe studies, B12, folate checked - iron studies c/w iron deficiency recheck of Fe studies today with ongoing Fe def - ferritin 30, transferrin sat <20%, etc B12/folate both wnl (9) UTI (urinary tract infection): Plan: urine cx with probable enterococcus - change rocephin to IV unasyn. follow culture to completion (10) DVT prophylaxis: Plan: add lovenox 40mg daily Plan will need PT/OT while here Admission and Anticipated Discharge Date Admission Date: January 26, 2023 Subjective feels mildly better than yesterday no new complaints still with cough and dyspnea but latter particularly is improved some no chest pain no abd pain he was irritable during the visit today we had lengthy discussion today about o2 requirements and o2 sat goals - told him that we want him to be 90-92% on his NC O2; we discussed CO2 retention, etc Review of Systems Review of Systems: gen - no fevers cv - no chest pain pulm - episodes of dyspnea even at rest; had a coughing spell and actually brought up sputum 1x GI - no N/V psych - anxious Physical Exam Physical Exam: gen - NAD, seems less confused today, no respiratory distress; overall looks better today eyes - slight proptosis mouth - MMM neck - no JVD heart - tachy, s1 s2, no murmurs or gallops lungs - R basilar fine, dry rales; mild pursed lip breathing has resolved; tachypnea improved today; airation improved today; mild end-exp wheezes b/l abd - soft NT ND BS+; NO HSM ext - <1+ edema, pulses 2+ b/l psych - a/o x 3 Results & Data Results & Data Vital Signs (Past 12 Hours) Vital Signs Temp Pulse Pulse Resp BP Pulse Ox O2 Del Method 01/27/23 19:00 36.9 C 95 H 18 125/78 98 Nasal Cannula 01/27/23 19:13 68 20 96 Room Air 01/27/23 15:00 90 01/27/23 15:45 36.4 C L 99 H 19 115/75 96 Nasal Cannula 01/27/23 15:29 Nasal Cannula 01/27/23 15:13 91 H 20 96 Nasal Cannula 01/27/23 11:13 91 H 20 98 Nasal Cannula 01/27/23 11:04 36.6 C 91 H 20 122/84 99 Nasal Cannula O2 Flow Rate 01/27/23 19:00 4 01/27/23 19:13 4 01/27/23 15:00 01/27/23 15:45 4 01/27/23 15:29 3.5 01/27/23 15:13 4 01/27/23 11:13 4 01/27/23 11:04 4 Laboratory Results Laboratory Results 01/27/23 01/27/23 01/27/23 05:42 05:42 05:42 WBC 10.50 RBC 4.42 L Hgb 12.2 L Hct 39.2 L MCV 88.7 MCH 27.6 MCHC 31.1 L RDW Std Deviation 53.6 H RDW Coeff of Jem 16.7 H Plt Count 257 MPV 9.8 Sodium 140 Potassium 4.5 Chloride 102 Carbon Dioxide 29 Anion Gap 9 BUN 19 Creatinine 0.81 Est Cr Clr Drug Dosing 97.0 Est GFR ( Amer) 104.4 Est GFR (Non-Af Amer) 90.0 BUN/Creatinine Ratio 23.5 H Glucose 125 H Calcium 9.8 Iron 55 TIBC 305 Unsaturated IBC 250 Transferrin % Sat 18 L Ferritin 30.7 Vitamin B12 > 1500 H Folate > 22.30 PG Care Time/CCT Total # of Minutes Spent Total Time Spent with Patient: Total time spent is greater than 50% in coordination of care (as documented) at patient's floor/unit and/or counseling patient: Coding Level of Care Code 27898 SUB INP/OBS CARE 2/35MIN Diagnoses Acute and chronic respiratory failure J96.20 Acute exacerbation of chronic obstructive airways disease J44.1 RLL pneumonia J18.9 Chest pain R07.9 Essential hypertension I10 BPH loc w urin obs/LUTS N40.1 Peripheral neuropathy G62.9 Peripheral neuropathy type: polyneuropathy, unspecified Anemia D64.9 UTI (urinary tract infection) N39.0 Hematuria presence: without hematuria Urinary tract infection type: site unspecified DVT prophylaxis Z29.9 (7) Peripheral neuropathy Peripheral neuropathy type: polyneuropathy, unspecified Qualified Code(s): G62.9 - Polyneuropathy, unspecified (9) UTI (urinary tract infection) Hematuria presence: without hematuria Urinary tract infection type: site unspecified Qualified Code(s): N39.0 - Urinary tract infection, site not specified
[2023-01-27] MEDS: CYANOCOBALAMIN (B-12) 500 MCG TABLET PO SCH (21:45)
[2023-01-27] MEDS: TAMSULOSIN HCL 0.4 MG CAP PO SCH (21:45)
[2023-01-28] MEDS: AMPICILLIN/SULBACTAM SOD 3,000 MG in SODIUM CHLOR 0.9% MINI-B 100 ML IV SCH ×4 (05:22→23:37)
[2023-01-28 07:03] LABS: BUN Creatinine Ratio 36.5 (10-20); Calcium 9.3 mg/dl (8.6-10.3); Creatinine Clr Calc Pharmacy 92.5 ml/min; Est GFR (African American) 102.3 ml/min; Est GFR (Non-African American) 88.3 ml/min; Potassium 4.6 mmol/L (3.5-5.1)
[2023-01-28] MEDS: ALBUT/IPRATROP 3MG/0.5MG NEB 3 ML VIAL INH SCH ×4 (07:13→19:14)
[2023-01-28] MEDS: BUDESONIDE 0.5 MG/2 ML VIAL (PULMICORT) INH SCH ×2 (07:13→19:14)
[2023-01-28] MEDS: FORMOTEROL 20 MCG/2 ML VIAL INH SCH ×2 (07:13→19:14)
[2023-01-28] MEDS: SODIUM CHLOR 7% 4 ML NEB NEB SCH ×2 (07:15→19:14)
[2023-01-28] MEDS: guaiFENesin 600 MG TABCR PO SCH ×2 (08:37→20:34)
[2023-01-28] MEDS: methylPREDNISolone 40 MG in SYRINGE 0 ML IV SCH ×2 (08:37→20:35)
[2023-01-28] MEDS: MULTIVITAMIN TAB PO SCH (08:38)
[2023-01-28] MEDS: ADVANCED PROBIOTIC 1250 MG CAPSULE PO SCH (08:38)
[2023-01-28] MEDS: METOPROLOL SUCC 50MG EXT REL TAB PO SCH (08:38)
[2023-01-28] MEDS: MAGNESIUM OXIDE 400 MG TAB PO SCH (08:38)
[2023-01-28] MEDS: ATORVASTATIN 40 MG TAB PO SCH (08:38)
[2023-01-28] MEDS: FERROUS SULFATE 325 MG TAB PO SCH ×2 (08:38→17:26)
[2023-01-28] MEDS: UMECLIDINIUM BROMIDE 62.5MCG/BLISTER 7 PUFFS/INHALER INH SCH (08:38)
[2023-01-28] MEDS: FLUTICASONE/VILANTEROL 200/25MCG 14 PUFFS/INHALER INH SCH (08:39)
[2023-01-28] MEDS: POLYETHYLENE (MIRALAX) 17 GM PACK PO SCH (09:00)
[2023-01-28] MEDS: PREGABALIN 100 MG CAP PO SCH ×2 (09:00→20:34)
[2023-01-28] MEDS: DOXYCYCLINE HYCLATE 100 MG CAP PO SCH ×2 (10:19→20:35)
[2023-01-28] MEDS: FUROSEMIDE 40 MG TAB PO SCH (12:15)
[2023-01-28] MEDS: CYANOCOBALAMIN (B-12) 500 MCG TABLET PO SCH (20:34)
[2023-01-28] MEDS: TAMSULOSIN HCL 0.4 MG CAP PO SCH (20:35)
[2023-01-28] MEDS ORDERED: ENOXAPARIN INJ 40 MG/0.4 ML SYR SQ ONE (21:12)
--- NOTE | 2023-01-28 21:14 | Hospitalist Progress Note ---
Date of Service January 28, 2023 Assessment & Plan (1) Acute and chronic respiratory failure: Plan: acute component - 2nd COPD exacerbation and probable RLL pneumonia - stable, improved. chronic component - 2nd COPD. on home O2 (had been using 4.5 L continuously; escobar s not required this amount at any point while here). (2) Acute exacerbation of chronic obstructive airways disease: Plan: again improved today. cont IV solumedrol 40mg IV BID - no wean today. cont scheduled duonebs. cont BID mucinex. cont flutter valve/incentive spirometry. cont home inhalers. (3) RLL pneumonia: Plan: CTA chest day of admission with probable RLL pneumonia. Received rocephin/doxy HD #1. Changed rocephin to unasyn on HD #2 since urine cx grew enterococcus. Thus, today is day #3 of abx. Plan 7 days in total of Rx. (4) Chest pain: Plan: left-sided, occurred the night prior to admission. no evidence of PE on CTA chest. troponin negative. suspect due to bronchoconstriction. no recurrence of symptoms. (5) Essential hypertension: Plan: cont home medications. control acceptable. cont lasix. flomax for BPH will also provide BP control. (6) BPH loc w urin obs/LUTS: Plan: cont flomax (7) Peripheral neuropathy: Plan: cont lyrica BID (8) Anemia: Plan: H/H mildly low but stable 2021 - Fe studies, B12, folate checked - iron studies c/w iron deficiency recheck of Fe studies today with ongoing Fe def - ferritin 30, transferrin sat <20%, etc B12/folate both wnl remains on ferrous sulfate 325mg BID consider IV venofer in jann of PO Fe supplementation (9) UTI (urinary tract infection): Plan: urine cx with enterococcus avium - remains on IV unasyn. enterococcus is amp sensitive. plan - 7 days of unasyn / PO amox. (10) DVT prophylaxis: Plan: lovenox 40mg daily (11) Anxiety: Plan: has had such here and has anxiety at home. start buspar 5mg TID. Plan will need PT/OT while here updated at bedside today Admission and Anticipated Discharge Date Admission Date: January 26, 2023 Subjective patient reports mild improvement in pulmonary symptoms still coughing - no real sputum production dyspnea improved eating ok ambulated a few times to the bathroom today and had considerable KELLEY no chest pain no abd pain tele overnight - NSR at bedside during the visit Review of Systems Review of Systems: gen - no fevers or chills cv - no chest pain pulm - cough/congestion/dyspnea psych - very anxious, reports he is anxious at home as well Physical Exam Physical Exam: gen - NAD, looks better than yesterday, anxious, no respiratory distress; obese mouth - MMM neck - no JVD chest - barrel chest appearance heart - RRR, s1 s2, no murmurs or gallops lungs - R basilar fine, dry rales; end-exp wheezes b/l; airation improved from prior exam; no respiratory distress abd - soft NT ND BS+; NO HSM ext - <1+ edema, pulses 2+ b/l psych - a/o x 3, anxious Results & Data Results & Data Vital Signs (Past 12 Hours) Vital Signs Temp Pulse Pulse Resp BP Pulse Ox Pulse Ox 01/28/23 19:00 37.0 C 109 H 20 135/83 96 01/28/23 19:19 111 H 20 94 01/28/23 15:00 84 01/28/23 15:24 36.7 C 96 H 20 132/78 94 01/28/23 14:47 84 18 96 01/28/23 13:00 94 01/28/23 11:16 36.4 C L 96 H 20 159/84 H 96 01/28/23 10:39 87 18 98 01/28/23 09:37 77 O2 Del Method O2 Del Method O2 Flow Rate O2 Flow Rate 01/28/23 19:00 Nasal Cannula 4 01/28/23 19:19 Nasal Cannula 3 01/28/23 15:00 01/28/23 15:24 Nasal Cannula 4 01/28/23 14:47 Nasal Cannula 4 01/28/23 13:00 Nasal Cannula 4 01/28/23 11:16 Nasal Cannula 4 01/28/23 10:39 Nasal Cannula 4 01/28/23 09:37 Laboratory Results Laboratory Results - last 24 hr 01/28/23 05:38 Sodium 141 Potassium 4.6 Chloride 105 Carbon Dioxide 31 Anion Gap 5 BUN 31 H Creatinine 0.85 Est Cr Clr Drug Dosing 92.5 Est GFR ( Amer) 102.3 Est GFR (Non-Af Amer) 88.3 BUN/Creatinine Ratio 36.5 H Glucose 133 H Calcium 9.3 Diagnostic Findings Microbiology 01/26/23 09:00 Urine,Clean Catch Urine Culture - Final Enterococcus avium 01/26/23 07:19 Blood Aerobic Blood Culture - Preliminary No growth in Aerobic bottle after 48 hours. 01/26/23 07:19 Blood Anaerobic Blood Culture - Preliminary No growth in Anaerobic bottle after 48 hours. 01/26/23 07:42 Blood Aerobic Blood Culture - Preliminary No growth in Aerobic bottle after 48 hours. 01/26/23 07:42 Blood Anaerobic Blood Culture - Preliminary No growth in Anaerobic bottle after 48 hours. PG Care Time/CCT Total # of Minutes Spent Total Time Spent with Patient: Total time spent is greater than 50% in coordination of care (as documented) at patient's floor/unit and/or counseling patient: Coding Level of Care Code 44738 SUB INP/OBS CARE 2/35MIN Diagnoses Acute and chronic respiratory failure J96.20 Acute exacerbation of chronic obstructive airways disease J44.1 RLL pneumonia J18.9 Chest pain R07.9 Essential hypertension I10 BPH loc w urin obs/LUTS N40.1 Peripheral neuropathy G62.9 Peripheral neuropathy type: polyneuropathy, unspecified Anemia D64.9 UTI (urinary tract infection) N39.0 Hematuria presence: without hematuria Urinary tract infection type: site unspecified DVT prophylaxis Z29.9 Anxiety F41.9 (7) Peripheral neuropathy Peripheral neuropathy type: polyneuropathy, unspecified Qualified Code(s): G62.9 - Polyneuropathy, unspecified (9) UTI (urinary tract infection) Hematuria presence: without hematuria Urinary tract infection type: site unspecified Qualified Code(s): N39.0 - Urinary tract infection, site not spe cified
[2023-01-28] MEDS: SENNA 8.6 MG TAB PO SCH (21:30)
[2023-01-28] MEDS: busPIRone 5 MG TAB PO SCH (21:30)
[2023-01-29] MEDS: AMPICILLIN/SULBACTAM SOD 3,000 MG in SODIUM CHLOR 0.9% MINI-B 100 ML IV SCH ×3 (05:46→17:22)
[2023-01-29] MEDS: SODIUM CHLOR 7% 4 ML NEB NEB SCH ×2 (07:09→19:13)
[2023-01-29] MEDS: ALBUT/IPRATROP 3MG/0.5MG NEB 3 ML VIAL INH SCH ×4 (07:22→19:13)
[2023-01-29] MEDS: BUDESONIDE 0.5 MG/2 ML VIAL (PULMICORT) INH SCH ×2 (07:22→19:13)
[2023-01-29] MEDS: FORMOTEROL 20 MCG/2 ML VIAL INH SCH ×2 (07:22→19:13)
[2023-01-29] MEDS: guaiFENesin 600 MG TABCR PO SCH ×2 (08:33→20:06)
[2023-01-29] MEDS: ADVANCED PROBIOTIC 1250 MG CAPSULE PO SCH (08:33)
[2023-01-29] MEDS: methylPREDNISolone 40 MG in SYRINGE 0 ML IV SCH ×2 (08:33→20:07)
[2023-01-29] MEDS: busPIRone 5 MG TAB PO SCH ×3 (08:33→20:06)
[2023-01-29] MEDS: MULTIVITAMIN TAB PO SCH (08:34)
[2023-01-29] MEDS: ENOXAPARIN INJ 40 MG/0.4 ML SYR SQ SCH (08:34)
[2023-01-29] MEDS: MAGNESIUM OXIDE 400 MG TAB PO SCH (08:34)
[2023-01-29] MEDS: FUROSEMIDE 40 MG TAB PO SCH (08:34)
[2023-01-29] MEDS: METOPROLOL SUCC 50MG EXT REL TAB PO SCH (08:34)
[2023-01-29] MEDS: UMECLIDINIUM BROMIDE 62.5MCG/BLISTER 7 PUFFS/INHALER INH SCH (08:35)
[2023-01-29] MEDS: FLUTICASONE/VILANTEROL 200/25MCG 14 PUFFS/INHALER INH SCH (08:35)
[2023-01-29] MEDS: POLYETHYLENE (MIRALAX) 17 GM PACK PO SCH (08:36)
[2023-01-29] MEDS: PREGABALIN 100 MG CAP PO SCH ×2 (08:45→20:09)
[2023-01-29] MEDS: FERROUS SULFATE 325 MG TAB PO SCH ×2 (09:07→16:52)
[2023-01-29] MEDS: DOXYCYCLINE HYCLATE 100 MG CAP PO SCH ×2 (09:07→20:06)
[2023-01-29] MEDS: ATORVASTATIN 40 MG TAB PO SCH (09:07)
[2023-01-29] MEDS: SENNA 8.6 MG TAB PO SCH (20:06)
[2023-01-29] MEDS: TAMSULOSIN HCL 0.4 MG CAP PO SCH (20:06)
[2023-01-29] MEDS: CYANOCOBALAMIN (B-12) 500 MCG TABLET PO SCH (20:06)
--- NOTE | 2023-01-29 21:59 | Hospitalist Progress Note ---
Date of Service January 29, 2023 Assessment & Plan (1) Acute and chronic respiratory failure: Plan: acute component - 2nd COPD exacerbation and probable RLL pneumonia - stable, improving. chronic component - 2nd COPD on home O2 (had been using 4.[address] [facility]; has not required this amount at any point while here). (2) Acute exacerbation of chronic obstructive airways disease: Plan: again improved today. cont IV solumedrol 40mg IV BID - no wean today but may be able to start weaning tomorrow. cont scheduled duonebs. cont BID mucinex. cont flutter valve/incentive spirometry. cont home inhalers. oob to chair and ambulate as tolerated. needs PT/OT. (3) RLL pneumonia: Plan: CTA chest day of admission with probable RLL pneumonia. Suspect community- acquired. Denies any dysphagia. No recent aspiration event. Received rocephin/doxy HD #1. Changed rocephin to unasyn on HD #2 since urine cx grew enterococcus. Thus, today is day #4 of abx. Plan 7 days in total of Rx. Can likely change IV unasyn to augmentin tomorrow. Finish doxy course. (4) Chest pain: Plan: left-sided, occurred the night prior to admission. no evidence of PE on CTA chest. troponin negative at admission. suspect due to bronchoconstriction. no recurrence of symptoms since admission. (5) Essential hypertension: Plan: cont home medications. control acceptable. cont lasix. flomax for BPH will also provide BP control. (6) BPH loc w urin obs/LUTS: Plan: cont flomax (7) Peripheral neuropathy: Plan: cont lyrica BID (8) Anemia: Plan: H/H mildly low but stable 2021 - Fe studies, B12, folate checked - iron studies c/w iron deficiency recheck of Fe studies this admission with ongoing Fe def - ferritin 30, transferrin sat <20%, etc B12/folate both wnl remains on ferrous sulfate 325mg BID consider IV venofer in jann of PO Fe supplementation (9) UTI (urinary tract infection): Plan: urine cx with enterococcus avium - remains on IV unasyn. enterococcus is amp sensitive. plan - 7 days of unasyn / PO amox-clav. (10) DVT prophylaxis: Plan: lovenox 40mg daily (11) Anxiety: Plan: has had such here and has anxiety at home. started buspar 5mg TID. tolerating such and does seem to be helping. Plan PT/OT servando pending updated at bedside once again today Admission and Anticipated Discharge Date Admission Date: January 26, 2023 Subjective patient lying in bed comfortably is at bedside he reports ongoing improvement in cough/wheezing/dyspnea KELLEY still quite severe, however is ambulating in room albeit it is limited due to his breathing +stool eating "fair" we discussed buspar for his anxiety and, if effective, told him we can prescribe it at discharge discussed that it is not habit-forming and not sedating patient still very focused on the amount of NC O2 he is on gets very anxious about his O2 sats and his NC O2 Review of Systems Review of Systems: gen - no fevers or chills cv - no chest pain; no orthopnea pulm - no dyspnea at rest GI - no abd pain/nausea/emesis Physical Exam Physical Exam: gen - NAD, again looks better than yesterday, less anxious today; no respiratory distress, very comfortable appearing; obese mouth - MMM, no thrush neck - no JVD heart - RRR, s1 s2, no murmurs or gallops lungs - R basilar fine, dry rales; end-exp wheezes b/l but improved; airation again improved; no respiratory distress abd - soft NT ND BS+; NO HSM ext - <1+ edema, pulses 2+ b/l psych - a/o x 3 Results & Data Results & Data Vital Signs (Past 12 Hours) Vital Signs Temp Pulse Pulse Resp BP Pulse Ox O2 Del Method 01/29/23 19:25 36.7 C 93 H 20 160/96 H 100 Nasal Cannula 01/29/23 19:16 76 18 98 Nasal Cannula 01/29/23 16:00 99 H 01/29/23 15:15 36.6 C 83 21 153/85 H 91 Nasal Cannula 01/29/23 14:54 93 H 18 93 Nasal Cannula 01/29/23 11:14 80 18 98 Nasal Cannula 01/29/23 11:05 36.6 C 80 19 133/87 98 Nasal Cannula O2 Flow Rate 01/29/23 19:25 3 01/29/23 19:16 3 01/29/23 16:00 01/29/23 15:15 01/29/23 14:54 4 01/29/23 11:14 4 01/29/23 11:05 4 PG Care Time/CCT Total # of Minutes Spent Total Time Spent with Patient: Total time spent is greater than 50% in coordination of care (as documented) at patient's floor/unit and/or counseling patient: Coding Level of Care Code 16706 SUB INP/OBS CARE 2/35MIN Diagnoses Acute and chronic respiratory failure J96.20 Acute exacerbation of chronic obstructive airways disease J44.1 RLL pneumonia J18.9 Chest pain R07.9 Essential hypertension I10 BPH loc w urin obs/LUTS N40.1 Peripheral neuropathy G62.9 Peripheral neuropathy type: polyneuropathy, unspecified Anemia D64.9 UTI (urinary tract infection) N39.0 Hematuria presence: without hematuria Urinary tract infection type: site unspecified DVT prophylaxis Z29.9 Anxiety F41.9 (7) Peripheral neuropathy Peripheral neuropathy type: polyneuropathy, unspecified Qualified Code(s): G62.9 - Polyneuropathy, unspecified (9) UTI (urinary tract infection) Hematuria presence: without hematuria Urinary tract infection type: site unspecified Qualified Code(s): N39.0 - Urinary tract infection, site not specified
[2023-01-30 05:15] LABS: Hematocrit (blood only) 36.6 % (42.0-52.0); Hemoglobin 11.3 g/dl (14.0-18.0); Mean Corpuscular Hemoglobin 27.8 pg (25.0-34.0); Mean Corpuscular Hgb Conc 30.9 g/dL (32.0-36.0); Mean Corpuscular Volume 89.9 fL (80.0-100.0); Mean Platelet Volume 9.7 fL (9.4-12.4); Platelet Count 221 K/uL (130-400); RDW Standard Deviation 55.7 fL (36.4-46.3); Red Blood Count 4.07 M/uL (4.70-6.10); White Blood Count 8.62 K/ul (4.8-10.8)
[2023-01-30 05:37] LABS: BUN Creatinine Ratio 33.7 (10-20); Calcium 9.1 mg/dl (8.6-10.3); Creatinine Clr Calc Pharmacy 91.4 ml/min; Est GFR (African American) 101.8 ml/min; Est GFR (Non-African American) 87.9 ml/min; Potassium 4.4 mmol/L (3.5-5.1)
[2023-01-30] MEDS: AMPICILLIN/SULBACTAM SOD 3,000 MG in SODIUM CHLOR 0.9% MINI-B 100 ML IV SCH ×3 (06:22→12:46)
[2023-01-30] MEDS: SODIUM CHLOR 7% 4 ML NEB NEB SCH ×2 (07:45→19:17)
[2023-01-30] MEDS: FORMOTEROL 20 MCG/2 ML VIAL INH SCH ×2 (07:45→19:17)
[2023-01-30] MEDS: ALBUT/IPRATROP 3MG/0.5MG NEB 3 ML VIAL INH SCH ×4 (07:45→19:17)
[2023-01-30] MEDS: BUDESONIDE 0.5 MG/2 ML VIAL (PULMICORT) INH SCH ×2 (07:45→19:17)
[2023-01-30] MEDS: METOPROLOL SUCC 50MG EXT REL TAB PO SCH (08:35)
[2023-01-30] MEDS: FERROUS SULFATE 325 MG TAB PO SCH ×2 (08:35→17:40)
[2023-01-30] MEDS: MULTIVITAMIN TAB PO SCH (08:35)
[2023-01-30] MEDS: methylPREDNISolone 40 MG in SYRINGE 0 ML IV SCH ×2 (08:35→20:22)
[2023-01-30] MEDS: busPIRone 5 MG TAB PO SCH ×3 (08:35→20:22)
[2023-01-30] MEDS: ATORVASTATIN 40 MG TAB PO SCH (08:35)
[2023-01-30] MEDS: PREGABALIN 100 MG CAP PO SCH ×2 (08:35→20:22)
[2023-01-30] MEDS: guaiFENesin 600 MG TABCR PO SCH ×2 (08:36→20:23)
[2023-01-30] MEDS: MAGNESIUM OXIDE 400 MG TAB PO SCH (08:36)
[2023-01-30] MEDS: FLUTICASONE/VILANTEROL 200/25MCG 14 PUFFS/INHALER INH SCH (08:36)
[2023-01-30] MEDS: ADVANCED PROBIOTIC 1250 MG CAPSULE PO SCH (08:36)
[2023-01-30] MEDS: ENOXAPARIN INJ 40 MG/0.4 ML SYR SQ SCH (08:36)
[2023-01-30] MEDS: FUROSEMIDE 40 MG TAB PO SCH (08:36)
[2023-01-30] MEDS: POLYETHYLENE (MIRALAX) 17 GM PACK PO SCH (08:37)
[2023-01-30] MEDS: UMECLIDINIUM BROMIDE 62.5MCG/BLISTER 7 PUFFS/INHALER INH SCH (08:37)
[2023-01-30] MEDS: DOXYCYCLINE HYCLATE 100 MG CAP PO SCH ×2 (09:03→22:19)
[2023-01-30] MEDS ORDERED: FUROSEMIDE INJ 20 MG/2 ML VIAL IV ONE (17:26)
--- NOTE | 2023-01-30 17:33 | Hospitalist Progress Note ---
Date of Service January 30, 2023 Assessment & Plan (1) Acute and chronic respiratory failure: Plan: acute component - 2nd COPD exacerbation and probable RLL pneumonia - stable, improving. chronic hypoxemic and hypercarbic respiratory failure - 2nd COPD on home O2 (had been using 4.5 L continuously @ home; has not required this amount at any point while here). - note that his CO2 on chemistry panel is a little higher today, encouraged not to overuse oxygen O2 sat goal 88-90% (2) Acute exacerbation of chronic obstructive airways disease: Plan: he does not feel like he is making significant progress with respect to his symptoms cont IV solumedrol 40mg IV BID - again no wean today but may be able to start weaning tomorrow. cont scheduled duonebs. cont BID mucinex. cont flutter valve/incentive spirometry. cont home inhalers. 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 Does take Lasix 40 mg daily chronically. Reviewed echo from 2021 normal LVEF grade 1 diastolic dysfunction oob to chair and ambulate as tolerated. needs PT/OT. (3) RLL pneumonia: Plan: CTA chest day of admission with probable RLL pneumonia. Suspect community- acquired. Denies any dysphagia. No recent aspiration event. Received rocephin/doxy HD #1. Changed rocephin to unasyn on HD #2 since urine cx grew enterococcus. changed antibiotics to ampicillinsulbactam p.o. starting tonight complete total 5 days course Finish doxy course. (4) Chest pain: Plan: left-sided, occurred the night prior to admission. no evidence of PE on CTA chest. troponin negative at admission. suspect due to bronchoconstriction. no recurrence of symptoms since admission. (5) Essential hypertension: Plan: cont home medications. control acceptable, BP at goal 01/30. cont lasix. flomax for BPH will also provide BP control. (6) BPH loc w urin obs/LUTS: Plan: cont flomax (7) Peripheral neuropathy: Plan: cont lyrica BID (8) Anemia: Plan: H/H mildly low but stable 2021 - Fe studies, B12, folate checked - iron studies c/w iron deficiency recheck of Fe studies this admission with ongoing Fe def - ferritin 30, transferrin sat <20%, etc B12/folate both wnl remains on ferrous sulfate 325mg BID (9) UTI (urinary tract infection): Plan: urine cx with enterococcus avium - remains on IV unasyn. enterococcus is amp sensitive. (10) DVT prophylaxis: Plan: lovenox 40mg daily (11) Anxiety: Plan: has had such here and has anxiety at home. started buspar 5mg TID. tolerating such and does seem to be helping. Plan PT/OT evals pending updated at bedside last 01/29 Admission and Anticipated Discharge Date Admission Date: January 26, 2023 Subjective Mr. Reynaga does not feel like his breathing is better in fact he feels like it is just about as bad as when he first came in. He is working hard not to turn his oxygen up to high trended up to 4 L when he was just up and around. He is not coughing except when he purposefully induces it by using his flutter valve. tight and dyspneic with any exertion or with talking. No chest pain. He says his leg swelling is present but better than it was at home. He denies chest pain Results & Data Results & Data Vital Signs (Past 12 Hours) Vital Signs Temp Pulse Pulse Resp BP Pulse Ox O2 Del Method 01/30/23 15:00 107 H 01/30/23 15:16 36.5 C 105 H 19 115/73 98 Nasal Cannula 01/30/23 14:08 106 H 18 98 Nasal Cannula 01/30/23 11:19 36.5 C 83 19 128/78 96 Nasal Cannula 01/30/23 10:23 86 18 98 Nasal Cannula 01/30/23 07:57 68 01/30/23 07:57 Nasal Cannula 01/30/23 07:45 76 18 98 Nasal Cannula 01/30/23 07:21 36.6 C 75 19 144/91 H 100 Nasal Cannula O2 Flow Rate 01/30/23 15:00 01/30/23 15:16 4 01/30/23 14:08 4 01/30/23 11:19 4 01/30/23 10:23 4 01/30/23 07:57 01/30/23 07:57 3 01/30/23 07:45 4 01/30/23 07:21 4 PG Care Time/CCT Total # of Minutes Spent Total Time Spent with Patient: Total time spent is greater than 50% in coordination of care (as documented) at patient's floor/unit and/or counseling patient: Coding Level of Care Code 40566 SUB INP/OBS CARE 2/35MIN Diagnoses Acute and chronic respiratory failure J96.20 Acute exacerbation of chronic obstructive airways disease J44.1 RLL pneumonia J18.9 Chest pain R07.9 Essential hypertension I10 BPH loc w urin obs/LUTS N40.1 Peripheral neuropathy G62.9 Peripheral neuropathy type: polyneuropathy, unspecified Anemia D64.9 UTI (urinary tract infection) N39.0 Urinary tract infection type: site unspecified Hematuria presence: without hematuria DVT prophylaxis Z29.9 Anxiety F41.9 (7) Peripheral neuropathy Peripheral neuropathy type: polyneuropathy, unspecified Qualified Code(s): G62.9 - Polyneuropathy, unspecified (9) UTI (urinary tract infection) Urinary tract infection type: site unspecified Hematuria presence: without hematuria Qualified Code(s): N39.0 - Urinary tract infection, site not specified
[2023-01-30] MEDS: TAMSULOSIN HCL 0.4 MG CAP PO SCH (20:22)
[2023-01-30] MEDS: AMOXICILLIN/CLAVULANATE 875 MG TAB PO SCH (20:23)
[2023-01-30] MEDS: CYANOCOBALAMIN (B-12) 500 MCG TABLET PO SCH (20:24)
[2023-01-30] MEDS: SENNA 8.6 MG TAB PO SCH (20:24)
[2023-01-31 07:12] LABS: Creatinine Clr Calc Pharmacy 89.4 ml/min; Est GFR (African American) 101.8 ml/min; Est GFR (Non-African American) 87.9 ml/min
[2023-01-31] MEDS: ALBUT/IPRATROP 3MG/0.5MG NEB 3 ML VIAL INH SCH ×4 (07:57→19:18)
[2023-01-31] MEDS: SODIUM CHLOR 7% 4 ML NEB NEB SCH ×2 (07:57→19:18)
[2023-01-31] MEDS: FORMOTEROL 20 MCG/2 ML VIAL INH SCH ×2 (07:57→19:18)
[2023-01-31] MEDS: BUDESONIDE 0.5 MG/2 ML VIAL (PULMICORT) INH SCH ×2 (07:57→19:18)
[2023-01-31] MEDS: AMOXICILLIN/CLAVULANATE 875 MG TAB PO SCH ×2 (08:32→16:50)
[2023-01-31] MEDS: busPIRone 5 MG TAB PO SCH ×3 (08:33→19:46)
[2023-01-31] MEDS: guaiFENesin 600 MG TABCR PO SCH ×2 (08:33→19:47)
[2023-01-31] MEDS: predniSONE 20 MG TAB PO SCH (08:34)
[2023-01-31] MEDS: ADVANCED PROBIOTIC 1250 MG CAPSULE PO SCH (08:34)
[2023-01-31] MEDS: FERROUS SULFATE 325 MG TAB PO SCH ×2 (08:35→16:50)
[2023-01-31] MEDS: MULTIVITAMIN TAB PO SCH (08:35)
[2023-01-31] MEDS: METOPROLOL SUCC 50MG EXT REL TAB PO SCH (08:35)
[2023-01-31] MEDS: FUROSEMIDE 40 MG TAB PO SCH (08:35)
[2023-01-31] MEDS: MAGNESIUM OXIDE 400 MG TAB PO SCH (08:37)
[2023-01-31] MEDS: UMECLIDINIUM BROMIDE 62.5MCG/BLISTER 7 PUFFS/INHALER INH SCH (08:38)
[2023-01-31] MEDS: POLYETHYLENE (MIRALAX) 17 GM PACK PO SCH (08:39)
[2023-01-31] MEDS: FLUTICASONE/VILANTEROL 200/25MCG 14 PUFFS/INHALER INH SCH (08:39)
[2023-01-31] MEDS: PREGABALIN 100 MG CAP PO SCH ×2 (08:50→19:53)
[2023-01-31] MEDS: ENOXAPARIN INJ 40 MG/0.4 ML SYR SQ SCH (09:23)
[2023-01-31] MEDS: DOXYCYCLINE HYCLATE 100 MG CAP PO SCH ×2 (09:27→21:57)
[2023-01-31] MEDS: ATORVASTATIN 40 MG TAB PO SCH (11:17)
[2023-01-31] MEDS ORDERED: FUROSEMIDE INJ 20 MG/2 ML VIAL IV ONE (14:03)
[2023-01-31] MEDS ORDERED: POTASSIUM CHLORIDE CRTAB 20 MEQ TABCR PO ONE (14:05)
--- NOTE | 2023-01-31 18:37 | Hospitalist Progress Note ---
Date of Service January 31, 2023 Assessment & Plan (1) Acute and chronic respiratory failure: Plan: acute component - 2nd COPD exacerbation and probable RLL pneumonia - stable, improving. chronic hypoxemic and hypercarbic respiratory failure - 2nd COPD on home O2 (had been using 4.5 L continuously @ home; has not required this amount at any point while here). -AM BMP O2 sat goal 88-90% (2) Acute exacerbation of chronic obstructive airways disease: Plan: he does not feel like he is making significant progress with respect to his symptoms treated with IV solumedrol - changed to oral prednisone 40 mg today cont scheduled duonebs. cont BID mucinex. cont flutter valve/incentive spirometry. cont home inhalers. 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 seemed to improve after first dose. Does take Lasix 40 mg daily chronically. Reviewed echo from 2021 normal LVEF grade 1 diastolic dysfunction. unclear to me currently whether acute component of diastolic heart failure. -AM BMP oob to chair and ambulate as tolerated. needs PT/OT. (3) RLL pneumonia: Plan: CTA chest day of admission with probable RLL pneumonia. Suspect community- acquired. Denies any dysphagia. No recent aspiration event. Received rocephin/doxy HD #1. Changed rocephin to unasyn on HD #2 since urine cx grew enterococcus. changed antibiotics to ampicillinsulbactam p.o. complete total 5 days course Finish doxy course. (4) Chest pain: Plan: left-sided, occurred the night prior to admission. no evidence of PE on CTA chest. troponin negative at admission. suspect due to bronchoconstriction. no recurrence of symptoms since admission. (5) Essential hypertension: Plan: cont home medications. control acceptable, BP at goal 01/31. cont lasix. flomax for BPH will also provide BP control. (6) BPH loc w urin obs/LUTS: Plan: cont flomax (7) Peripheral neuropathy: Plan: cont lyrica BID (8) Anemia: Plan: H/H mildly low but stable 2021 - Fe studies, B12, folate checked - iron studies c/w iron deficiency recheck of Fe studies this admission with ongoing Fe def - ferritin 30, transferrin sat <20%, etc B12/folate both wnl remains on ferrous sulfate 325mg BID (9) UTI (urinary tract infection): Plan: urine cx with enterococcus avium - remains on IV unasyn. enterococcus is amp sensitive. (10) DVT prophylaxis: Plan: lovenox 40mg daily (11) Anxiety: Plan: has had such here and has anxiety at home. started buspar 5mg TID. tolerating such and does seem to be helping. Plan PT/OT evals pending updated at bedside last 01/29 Admission and Anticipated Discharge Date Admission Date: January 26, 2023 Subjective breathing is a little better today. still dyspneic with minimal exertion and talking. no chest pain. leg swelling much improved after lasix dose yesterday did urinate a lot Results & Data Results & Data Vital Signs (Past 12 Hours) Vital Signs Temp Pulse Pulse Pulse Resp BP Pulse Ox 01/31/23 15:00 107 H 01/31/23 16:01 87 18 98 01/31/23 15:01 36.2 C L 91 H 18 129/82 94 01/31/23 11:50 36.2 C L 91 H 91 H 24 130/83 97 01/31/23 11:23 87 18 98 01/31/23 10:14 72 01/31/23 08:00 78 18 98 01/31/23 07:45 36.5 C 73 18 122/83 98 01/31/23 07:36 O2 Del Method O2 Flow Rate 01/31/23 15:00 01/31/23 16:01 Nasal Cannula 3.5 01/31/23 15:01 Nasal Cannula 3.5 01/31/23 11:50 Nasal Cannula 3.5 01/31/23 11:23 Nasal Cannula 3.5 01/31/23 10:14 01/31/23 08:00 Nasal Cannula 3.5 01/31/23 07:45 Nasal Cannula 4 01/31/23 07:36 Nasal Cannula 3.5 PG Care Time/CCT Total # of Minutes Spent Total Time Spent with Patient: Total time spent is greater than 50% in coordination of care (as documented) at patient's floor/unit and/or counseling patient: Coding Level of Care Code 59576 SUB INP/OBS CARE 2/35MIN Diagnoses Acute and chronic respiratory failure J96.20 Acute exacerbation of chronic obstructive airways disease J44.1 RLL pneumonia J18.9 Chest pain R07.9 Essential hypertension I10 BPH loc w urin obs/LUTS N40.1 Peripheral neuropathy G62.9 Peripheral neuropathy type: polyneuropathy, unspecified Anemia D64.9 UTI (urinary tract infection) N39.0 Urinary tract infection type: site unspecified Hematuria presence: without hematuria DVT prophylaxis Z29.9 Anxiety F41.9 (7) Peripheral neuropathy Peripheral neuropathy type: polyneuropathy, unspecified Qualified Code(s): G62.9 - Polyneuropathy, unspecified (9) UTI (urinary tract infection) Urinary tract infection type: site unspecified Hematuria presence: without hematuria Qualified Code(s): N39.0 - Urinary tract infection, site not specified
[2023-01-31] MEDS: TAMSULOSIN HCL 0.4 MG CAP PO SCH (19:47)
[2023-01-31] MEDS: CYANOCOBALAMIN (B-12) 500 MCG TABLET PO SCH (19:48)
[2023-01-31] MEDS: SENNA 8.6 MG TAB PO SCH (19:51)
[2023-02-01 06:45] LABS: BUN Creatinine Ratio 36.2 (10-20); Calcium 9.2 mg/dl (8.6-10.3); Creatinine Clr Calc Pharmacy 81.5 ml/min; Est GFR (African American) 94.8 ml/min; Est GFR (Non-African American) 81.8 ml/min; Potassium 3.7 mmol/L (3.5-5.1)
[2023-02-01] MEDS: ALBUT/IPRATROP 3MG/0.5MG NEB 3 ML VIAL INH SCH ×4 (06:54→19:47)
[2023-02-01] MEDS: BUDESONIDE 0.5 MG/2 ML VIAL (PULMICORT) INH SCH ×2 (06:54→19:46)
[2023-02-01] MEDS: SODIUM CHLOR 7% 4 ML NEB NEB SCH ×2 (06:54→19:46)
[2023-02-01] MEDS: FORMOTEROL 20 MCG/2 ML VIAL INH SCH ×2 (06:54→19:46)
[2023-02-01] MEDS: MULTIVITAMIN TAB PO SCH (08:28)
[2023-02-01] MEDS: ATORVASTATIN 40 MG TAB PO SCH (08:28)
[2023-02-01] MEDS: guaiFENesin 600 MG TABCR PO SCH ×2 (08:28→20:14)
[2023-02-01] MEDS: METOPROLOL SUCC 50MG EXT REL TAB PO SCH (08:29)
[2023-02-01] MEDS: busPIRone 5 MG TAB PO SCH ×3 (08:29→20:14)
[2023-02-01] MEDS: ADVANCED PROBIOTIC 1250 MG CAPSULE PO SCH (08:29)
[2023-02-01] MEDS: predniSONE 20 MG TAB PO SCH (08:29)
[2023-02-01] MEDS: MAGNESIUM OXIDE 400 MG TAB PO SCH (08:29)
[2023-02-01] MEDS: AMOXICILLIN/CLAVULANATE 875 MG TAB PO SCH ×2 (08:30→16:38)
[2023-02-01] MEDS: FUROSEMIDE 40 MG TAB PO SCH (08:30)
[2023-02-01] MEDS: FERROUS SULFATE 325 MG TAB PO SCH ×2 (08:30→16:38)
[2023-02-01] MEDS: ENOXAPARIN INJ 40 MG/0.4 ML SYR SQ SCH (08:31)
[2023-02-01] MEDS: FLUTICASONE/VILANTEROL 200/25MCG 14 PUFFS/INHALER INH SCH (08:31)
[2023-02-01] MEDS: UMECLIDINIUM BROMIDE 62.5MCG/BLISTER 7 PUFFS/INHALER INH SCH (08:32)
[2023-02-01] MEDS: POLYETHYLENE (MIRALAX) 17 GM PACK PO SCH (08:32)
[2023-02-01] MEDS: PREGABALIN 100 MG CAP PO SCH ×2 (08:33→20:16)
[2023-02-01] MEDS: DOXYCYCLINE HYCLATE 100 MG CAP PO SCH ×2 (08:35→20:13)
--- NOTE | 2023-02-01 16:52 | Hospitalist Progress Note ---
Date of Service February 01, 2023 Assessment & Plan (1) Acute and chronic respiratory failure: Plan: acute component - 2nd COPD exacerbation and probable RLL pneumonia - stable, improving. chronic hypoxemic and hypercarbic respiratory failure - 2nd COPD on home O2 (had been using 4.5 L continuously @ home; has not required this amount at any point while here). -AM BMP O2 sat goal 88-90% (2) Acute exacerbation of chronic obstructive airways disease: Plan: very severe underlying COPD he does not feel like he is making significant progress with respect to his symptoms treated with IV solumedrol - changed to oral prednisone 40 mg 01/31 - plan for slow taper until his pulmonary follow-up appointment 02/[address] Dominguez cont scheduled duonebs. cont BID mucinex. cont flutter valve/incentive spirometry. cont home inhalers. lease administrator is Dr. Dominguez, according to notes did not respond to outpatient azithromycin treatment today we discussed referral to pulmonary rehab, referral to outpatient palliative care as future options. He will see how he recovers over a few weeks and discuss this with Dr. Dominguez mild acute on chronic diastolic heart failurebreathing did improve slightly w ith active diuresis 01/30 - 01/31. Today I will not add additional Lasix because he has developed strong contraction alkalosis in the may affect his breathing -AM BMP oob to chair and ambulate as tolerated. needs PT/OT. (3) RLL pneumonia: Plan: CTA chest day of admission with probable RLL pneumonia. Suspect community-acquired. Denies any dysphagia. No recent aspiration event. Received rocephin/doxy HD #1. Changed rocephin to unasyn on HD #2 since urine cx grew enterococcus. changed antibiotics to ampicillinsulbactam p.o. complete total 5 days course Finish doxy course. (4) Chest pain: Plan: left-sided, occurred the night prior to admission. no evidence of PE on CTA chest. troponin negative at admission. suspect due to bronchoconstriction. no recurrence of symptoms since admission. (5) Essential hypertension: Plan: cont home medications. control acceptable, BP at goal 02/01. cont lasix. flomax for BPH will also provide BP control. (6) BPH loc w urin obs/LUTS: Plan: cont flomax (7) Peripheral neuropathy: Plan: cont lyrica BID (8) Anemia: Plan: H/H mildly low but stable 2021 - Fe studies, B12, folate checked - iron studies c/w iron deficiency recheck of Fe studies this admission with ongoing Fe def - ferritin 30, transferrin sat <20%, etc B12/folate both wnl remains on ferrous sulfate 325mg BID (9) UTI (urinary tract infection): Plan: urine cx with enterococcus avium - adequately treated with unasyn. enterococcus is amp sensitive. (10) DVT prophylaxis: Plan: lovenox 40mg daily (11) Anxiety: Plan: has had such here and has anxiety at home. started buspar 5mg TID. tolerating such and does seem to be helping. Plan PT/OT evals completed updated at bedside last 01/29, 02/01 Admission and Anticipated Discharge Date Admission Date: January 26, 2023 Subjective dyspnea slightly better today, leg edema better, acknowledges breathing is a lot better compared to prior to admission, his is at bedside agrees though he is not back to usual baseline Physical Exam Physical Exam: PHYSICAL EXAMINATION Last 24h vital signs reviewed, see documentation in flowsheet General: sitting on the edge of the bed, his is sitting in the chair by the window HEENT: Normocephalic, atraumatic, pupils round and equal, sclerae anicteric, no conjunctival injection, moist mucus membranes, edentulous Lungs: increased respiratory effort, tends to sit tripod. diffuse expiratory wheezes in both bases and mid wong, air movement improved compared to 48 hours ago, no crackles no coughing Heart: Regular rate and rhythm, no murmurs. No JVD Abdomen: Soft, nontender, nondistended. Bowel sounds present. Extremities: Warm, dry, well-perfused. 1+ extremity edema, skin wrinkling now present/improved. Neuro: Alert and oriented x 4, face symmetric, moves 4 extremities well Psych: Normal affect and behavior Results & Data Results & Data Vital Signs (Past 12 Hours) Vital Signs Temp Pulse Pulse Pulse Resp BP Pulse Ox 02/01/23 16:00 86 02/01/23 15:03 95 H 18 96 02/01/23 12:35 36.9 C 84 18 109/73 96 02/01/23 10:52 68 18 98 02/01/23 09:00 77 02/01/23 09:00 02/01/23 08:53 36.6 C 71 18 113/80 100 02/01/23 06:55 79 18 98 O2 Del Method O2 Flow Rate 02/01/23 16:00 02/01/23 15:03 Nasal Cannula 3 02/01/23 12:35 Nasal Cannula 3.5 02/01/23 10:52 Nasal Cannula 5 02/01/23 09:00 02/01/23 09:00 Nasal Cannula 3.5 02/01/23 08:53 Nasal Cannula 3 02/01/23 06:55 Nasal Cannula 3.5 PG Care Time/CCT Total # of Minutes Spent Total Time Spent with Patient: Total time spent is greater than 50% in coordination of care (as documented) at patient's floor/unit and/or counseling patient: Coding Level of Care Code 61300 SUB INP/OBS CARE MIN Diagnoses Acute and chronic respiratory failure J96.20 Acute exacerbation of chronic obstructive airways disease J44.1 RLL pneumonia J18.9 Chest pain R07.9 Essential hypertension I10 BPH loc w urin obs/LUTS N40.1 Peripheral polyneuropathy G62.9 Peripheral neuropathy type: polyneuropathy, unspecified Anemia D64.9 Urinary tract infection without hematuria, site unspecified N39.0 Urinary tract infection type: site unspecified Hematuria presence: without hematuria DVT prophylaxis Z29.9 Anxiety F41.9 (7) Peripheral neuropathy Peripheral neuropathy type: polyneuropathy, unspecified Qualified Code(s): G6 2.9 - Polyneuropathy, unspecified (9) UTI (urinary tract infection) Urinary tract infection type: site unspecified Hematuria presence: without hematuria Qualified Code(s): N39.0 - Urinary tract infection, site not specified
[2023-02-01] MEDS: SENNA 8.6 MG TAB PO SCH (20:13)
[2023-02-01] MEDS: CYANOCOBALAMIN (B-12) 500 MCG TABLET PO SCH (20:13)
[2023-02-01] MEDS: TAMSULOSIN HCL 0.4 MG CAP PO SCH (20:14)
[2023-02-02] MEDS: ALBUT/IPRATROP 3MG/0.5MG NEB 3 ML VIAL INH SCH ×4 (07:24→19:36)
[2023-02-02] MEDS: FORMOTEROL 20 MCG/2 ML VIAL INH SCH ×2 (07:24→19:36)
[2023-02-02] MEDS: SODIUM CHLOR 7% 4 ML NEB NEB SCH ×2 (07:24→19:36)
[2023-02-02] MEDS: BUDESONIDE 0.5 MG/2 ML VIAL (PULMICORT) INH SCH ×2 (07:24→19:36)
[2023-02-02] MEDS: UMECLIDINIUM BROMIDE 62.5MCG/BLISTER 7 PUFFS/INHALER INH SCH (08:28)
[2023-02-02] MEDS: FLUTICASONE/VILANTEROL 200/25MCG 14 PUFFS/INHALER INH SCH (08:28)
[2023-02-02] MEDS: MAGNESIUM OXIDE 400 MG TAB PO SCH (08:29)
[2023-02-02] MEDS: busPIRone 5 MG TAB PO SCH ×3 (08:29→19:23)
[2023-02-02] MEDS: ENOXAPARIN INJ 40 MG/0.4 ML SYR SQ SCH (08:29)
[2023-02-02] MEDS: AMOXICILLIN/CLAVULANATE 875 MG TAB PO SCH ×2 (08:29→18:02)
[2023-02-02] MEDS: guaiFENesin 600 MG TABCR PO SCH ×2 (08:29→19:23)
[2023-02-02] MEDS: DOXYCYCLINE HYCLATE 100 MG CAP PO SCH (08:30)
[2023-02-02] MEDS: ADVANCED PROBIOTIC 1250 MG CAPSULE PO SCH (08:30)
[2023-02-02] MEDS: ATORVASTATIN 40 MG TAB PO SCH (08:30)
[2023-02-02] MEDS: MULTIVITAMIN TAB PO SCH (08:30)
[2023-02-02] MEDS: FUROSEMIDE 40 MG TAB PO SCH (08:30)
[2023-02-02] MEDS: METOPROLOL SUCC 50MG EXT REL TAB PO SCH (08:30)
[2023-02-02] MEDS: predniSONE 20 MG TAB PO SCH (08:31)
[2023-02-02] MEDS: FERROUS SULFATE 325 MG TAB PO SCH ×2 (08:31→18:03)
[2023-02-02] MEDS: POLYETHYLENE (MIRALAX) 17 GM PACK PO SCH (08:31)
[2023-02-02] MEDS: PREGABALIN 100 MG CAP PO SCH ×2 (08:32→19:25)
--- NOTE | 2023-02-02 18:26 | Hospitalist Progress Note ---
Date of Service February 02, 2023 Assessment & Plan (1) Acute and chronic respiratory failure: Plan: acute component - 2nd COPD exacerbation and probable RLL pneumonia - stable, improving. chronic hypoxemic and hypercarbic respiratory failure - 2nd COPD on home O2 (had been using 4.5 L continuously @ home; has not required this amount at any point while here). O2 sat goal 88-90% (2) Acute exacerbation of chronic obstructive airways disease: Plan: very severe underlying COPD he is improving slowly day by day now but still sig KELLEY more than baseline treated with IV solumedrol - changed to oral prednisone 40 mg 01/31 - plan for slow taper until his pulmonary follow-up appointment 02/[address] Alberto see scheduled duonebs. cont BID mucinex. cont flutter valve/incentive spirometry. cont home inhalers. land degradation analyst is Dr. Dominguez, according to notes did not respond to outpatient azithromycin treatment discussed referral to pulmonary rehab, referral to outpatient palliative care as future options. He will see how he recovers over a few weeks and discuss this with Dr. Dominguez mild acute on chronic diastolic heart failurebreathing did improve slightly with active diuresis 01/30 - 01/31. -resumed usual po lasix (3) RLL pneumonia: Plan: CTA chest day of admission with probable RLL pneumonia. Suspect community- acquired. Denies any dysphagia. No recent aspiration event. Received rocephin/doxy HD #1. Changed rocephin to unasyn on HD #2 since urine cx grew enterococcus. changed antibiotics to ampicillinsulbactam p.o. and doxy po completed total 5 days course 02/02 (4) Chest pain: Plan: left-sided, occurred the night prior to admission. no evidence of PE on CTA chest. troponin negative at admission. suspect due to bronchoconstriction. no recurrence of symptoms since admission. (5) Essential hypertension: Plan: cont home medications. control acceptable, BP at goal 02/01. cont lasix. flomax for BPH will also provide BP control. (6) BPH loc w urin obs/LUTS: Plan: cont flomax (7) Peripheral neuropathy: Plan: cont lyrica BID (8) Anemia: Plan: H/H mildly low but stable 2021 - Fe studies, B12, folate checked - iron studies c/w iron deficiency recheck of Fe studies this admission with ongoing Fe def - ferritin 30, transferrin sat <20%, etc B12/folate both wnl remains on ferrous sulfate 325mg BID (9) UTI (urinary tract infection): Plan: urine cx with enterococcus avium - adequately treated with unasyn. enterococcus is amp sensitive. (10) DVT prophylaxis: Plan: lovenox 40mg daily (11) Anxiety: Plan: has had such here and has anxiety at home. started buspar 5mg TID. tolerating such and does seem to be helping. Plan PT/OT evals completed updated at bedside last 01/29, 02/01 Admission and Anticipated Discharge Date Admission Date: January 26, 2023 Subjective KELLEY slowly improving day by day. was quite SOB when walking to bathroom so wants to stay and consider home in AM. Physical Exam Physical Exam: PHYSICAL EXAMINATION Last 24h vital signs reviewed, see documentation in flowsheet General: was sleeping comfortably, lying flat HEENT: Normocephalic, atraumatic, pupils round and equal, sclerae anicteric, no conjunctival injection, moist mucus membranes, edentulous Lungs: increased respiratory effort but improved, air movement improved breath sounds now all the way to bases, exp wheezes in omer [place] Heart: Regular rate and rhythm, no murmurs. No JVD Abdomen: Soft, nontender, nondistended. Bowel sounds present. Extremities: Warm, dry, well-perfused. 1+ extremity edema, more improved. Neuro: Alert and oriented x 4, face symmetric, moves 4 extremities well Psych: Normal affect and behavior Results & Data Results & Data Vital Signs (Past 12 Hours) Vital Signs Temp Pulse Pulse Resp BP Pulse Ox Pulse Ox 02/02/23 16:16 37 C 100 H 18 120/65 96 02/02/23 15:32 100 H 02/02/23 15:20 98 H 18 96 02/02/23 13:00 95 02/02/23 11:43 37 C 85 18 114/74 95 02/02/23 11:27 84 18 96 02/02/23 09:00 72 02/02/23 09:00 02/02/23 07:48 36.5 C 78 18 121/84 96 02/02/23 07:25 86 18 94 O2 Del Method O2 Del Method O2 Flow Rate O2 Flow Rate 02/02/23 16:16 Nasal Cannula 4 02/02/23 15:32 02/02/23 15:20 Nasal Cannula 4 02/02/23 13:00 Nasal Cannula 3.5 02/02/23 11:43 Nasal Cannula 3.5 02/02/23 11:27 Nasal Cannula 3.5 02/02/23 09:00 02/02/23 09:00 Nasal Cannula 3.5 02/02/23 07:48 Nasal Cannula 3.5 02/02/23 07:25 Nasal Cannula 3.5 PG Care Time/CCT Total # of Minutes Spent Total Time Spent with Patient: Total time spent is greater than 50% in coordination of care (as documented) at patient's floor/unit and/or counseling patient: Coding Level of Care Code 00615 SUB INP/OBS CARE 235MIN Diagnoses Acute and chronic respiratory failure J96.20 Acute exacerbation of chronic obstructive airways disease J44.1 RLL pneumonia J18.9 Chest pain R07.9 Essential hypertension I10 BPH loc w urin obs/LUTS N40.1 Peripheral polyneuropathy G62.9 Peripheral neuropathy type: polyneuropathy, unspecified Anemia D64.9 Urinary tract infection without hematuria, site unspecified N39.0 Urinary tract infection type: site unspecified Hematuria presence: without hematuria DVT prophylaxis Z29.9 Anxiety F41.9 (7) Peripheral neuropathy Peripheral neuropathy type: polyneuropathy, unspecified Qualified Code(s): G62.9 - Polyneuropathy, unspecified (9) UTI (urinary tract infection) Urinary tract infection type: site unspecified Hematuria presence: without hematuria Qualified Code(s): N39.0 - Urinary tract infection, site not specified
[2023-02-02] MEDS: TAMSULOSIN HCL 0.4 MG CAP PO SCH (19:23)
[2023-02-02] MEDS: SENNA 8.6 MG TAB PO SCH (19:23)
[2023-02-02] MEDS: CYANOCOBALAMIN (B-12) 500 MCG TABLET PO SCH (19:23)
[2023-02-03 05:00] LABS: Creatinine Clr Calc Pharmacy 80.9 ml/min; Est GFR (African American) 92.4 ml/min; Est GFR (Non-African American) 79.8 ml/min
[2023-02-03] MEDS: FORMOTEROL 20 MCG/2 ML VIAL INH SCH (07:11)
[2023-02-03] MEDS: BUDESONIDE 0.5 MG/2 ML VIAL (PULMICORT) INH SCH (07:11)
[2023-02-03] MEDS: SODIUM CHLOR 7% 4 ML NEB NEB SCH (07:11)
[2023-02-03] MEDS: ALBUT/IPRATROP 3MG/0.5MG NEB 3 ML VIAL INH SCH ×2 (07:13→11:34)
[2023-02-03] MEDS: ENOXAPARIN INJ 40 MG/0.4 ML SYR SQ SCH (09:21)
[2023-02-03] MEDS: predniSONE 20 MG TAB PO SCH (09:23)
[2023-02-03] MEDS: ADVANCED PROBIOTIC 1250 MG CAPSULE PO SCH (09:24)
[2023-02-03] MEDS: METOPROLOL SUCC 50MG EXT REL TAB PO SCH (09:24)
[2023-02-03] MEDS: MAGNESIUM OXIDE 400 MG TAB PO SCH (09:24)
[2023-02-03] MEDS: MULTIVITAMIN TAB PO SCH (09:24)
[2023-02-03] MEDS: FUROSEMIDE 40 MG TAB PO SCH (09:24)
[2023-02-03] MEDS: guaiFENesin 600 MG TABCR PO SCH (09:24)
[2023-02-03] MEDS: FERROUS SULFATE 325 MG TAB PO SCH (09:25)
[2023-02-03] MEDS: ATORVASTATIN 40 MG TAB PO SCH (09:25)
[2023-02-03] MEDS: busPIRone 5 MG TAB PO SCH (09:25)
[2023-02-03] MEDS: PREGABALIN 100 MG CAP PO SCH (09:29)
[2023-02-03] MEDS: POLYETHYLENE (MIRALAX) 17 GM PACK PO SCH (10:24)
[2023-02-03] MEDS: FLUTICASONE/VILANTEROL 200/25MCG 14 PUFFS/INHALER INH SCH (10:24)
[2023-02-03] MEDS: UMECLIDINIUM BROMIDE 62.5MCG/BLISTER 7 PUFFS/INHALER INH SCH (11:22)
[2023-02-03] MEDS ORDERED: predniSONE 20 MG TAB PO SCH (14:00)
[2023-02-03] MEDS ORDERED: Nursing to Pharmacy Communication SCH (14:00)
--- NOTE | 2023-02-03 17:50 | Discharge Summary ---
Date of Service February 03, 2023 Admission HPI Per Admitting Provider 72yo male with history of COPD with resulting chronic hypoxic respiratory failure on home O2 continuously - 4.5 liters via NC - presents from home via EMS due to severe, acute dyspnea. Patient reports he has had chest congestion with mild cough for a few days. No fevers or chills. Normal appetite this week up until last night. Cough was nonproductive. No sick contacts at home. About 8pm last night while watching TV he had a vague left-sided chest discomfort that self-resolved after a few minutes. He went to bed last night in usual fashion feeling ok and stable on his usual home O2 amount. Then, about 0530 this am, he got out of bed to use the bathroom and upon return to his bed (the bed and bathroom are by ~10 feet) he was severely dyspneic. He initially turned his O2 up to 6 L and, because of not feeling any better, his increased the O2 further up to 10+ liters. He then took an albuterol neb without relief. At that point 911 was called. En route to [facility] gave 125mg of IV solumedrol along with a duoneb. In the ER his O2 was titrated back down to 4.5 liters. During my admission assessment he was satting 96-97% on the 4.5 liters. Thus, I lowered his NC O2 to 3.5 liters. Still satting mid 90s on such. Patient does report that he feels better in comparison to early this am. Principal Diagnosis acute on chronic respiratory failure, multifactorial Discharge Exam PHYSICAL EXAMINATION Last 24h vital signs reviewed, see documentation in flowsheet General: sitting up in the chair wearing his hunting hat HEENT: Normocephalic, atraumatic, pupils round and equal, sclerae anicteric, no conjunctival injection, moist mucus membranes, edentulous Lungs: mildly increased respiratory effort but improved, air movement much improved breath sounds now all the way to bases, slight exp wheezes in omer LL Heart: Regular rate and rhythm, no murmurs. No JVD Abdomen: nondistended. Bowel sounds present. Extremities: Warm, dry, well-perfused. mild lower extremity edema, more improved. Neuro: Alert and oriented x 4, face symmetric, moves 4 extremities well Psych: Normal affect and behavior Discharge Data Allergies Allergy/AdvReac Type Severity Reaction Status Date / Time No Known Allergies Allergy Verified 01/02/23 10:04 Consultations 01/26/23 08:40 ED Decision to Admit Stat Ordered Studies 01/26/23 09:57 CT angio chest PE protocol Stat Chest X-Ray 01/26/23 06:50 XR chest 1V portable CLINICAL HISTORY: Sepsis. COMPARISON STUDY: Chest radiograph September 24, 2022. Chest radiograph November 08, 2022. FINDINGS: Lung volumes are mildly diminished, unchanged. Linear bibasilar densities favor atelectasis. There is no pneumothorax or pleural effusion. Cardiac size is normal. Mediastinal contours are normal. There is no evidence for pulmonary edema. Underlying emphysema. IMPRESSION: No acute cardiopulmonary findings. ACT 112: Negative or not required by law. Electronically signed by: Chaitanya Srivastava M.D. 01/26/2023 7:47 AM Chest CTA 01/26/23 09:57 CT ANGIOGRAPHY OF THE CHEST, PULMONARY EMBOLUS PROTOCOL CLINICAL HISTORY: Left-sided chest pain and dyspnea. COPD. Evaluate for pulmonary embolus. COMPARISON STUDY: Chest CT September 24, 2022. Chest radiograph performed earlier today. TECHNIQUE: Following IV administration of 108 mL of Optiray, helical axial images of the chest were obtained utilizing the pulmonary embolus protocol. Maximal intensity projections and sagittal and coronal reformats were viewed on an independent 3D workstation. IV contrast was administered without complication. Automated exposure control was utilized for the study. A dose lowering technique was utilized adhering to the principles of ALARA. CT DOSE: 862.13 mGy.cm FINDINGS: No pulmonary emboli are identified. There is no thoracic aortic dissection. Size of the heart is normal. There is moderate coronary artery calcification. No enlarged axillary, mediastinal or hilar lymph nodes are present. Emphysema is again noted. Subpleural right lower lobe opacity on image 96 of 243 favors atelectasis. Moderate secretions within the airways are noted. These include mucus within the right mainstem bronchus as well as multiple segmental right lower lobe bronchi. There is bronchial wall thickening within the lower lobes. There is no pneumothorax or pleural effusion. No cavitation is present. Multiple old bilateral rib fractures are incidentally noted. Left hepatic lobe hypodense lesion is unchanged. This is benign. There are several gallstones within the gallbladder. IMPRESSION: 1. No pulmonary emboli identified. 2. Lower lobe bronchial wall thickening with scattered secretions within the airways. 3. Emphysema. 4. Subpleural right lower lobe opacity. This favors atelectasis. A developing pneumonia could appear similar although is considered less likely. ACT 112: Negative or not required by law. Electronically signed by: Chaitanya Srivastava M.D. 01/26/2023 11:36 AM 02/03/23 Range/Units 04:08 Creatinine 0.96 (0.6-1.4) mg/dl Est Cr Clr Drug Dosing 80.9 ml/min Est GFR ( Amer) 92.4 ml/min Est GFR (Non-Af Amer) 79.8 ml/min Hospital Course (1) Acute and chronic respiratory failure: Acute on chronic hypoxic respiratory failure due to probable RLL pneumonia and acute exacerbation of very severe underlying COPD chronic hypoxemic and hypercarbic respiratory failure - 2nd COPD on home O2 (had been using 4.5 L continuously @ home; has not required this amount at any point while here). O2 sat goal 88-92% -counseled extensively not to turn his home O2 up too high (2) Acute exacerbation of chronic obstructive airways disease: very severe underlying COPD Mr. Barnes was very slow to improve but did so steadily he is improving day by day now but still KELLEY more than baseline treated with IV solumedrol - changed to oral prednisone 40 mg 01/31 - plan for slow taper until his pulmonary follow-up appointment 02/[address] Dominguez, then likely need further taper by pulm cont scheduled duonebs. cont BID mucinex. cont flutter valve/incentive spirometry. cont home inhalers and nebs. I wrote new Rx for these in case home supply is low: performist bid, budesonide bid, duoneb, hypertonic saline neb discussed referral to pulmonary rehab, referral to outpatient palliative care as future options. He will see how he recovers over a few weeks and discuss this with Dr. Dominguez mild acute on chronic diastolic heart failurebreathing did improve slightly with active diuresis 01/30 - 01/31. -resumed usual po lasix -instructed to monitor weight and edema, if increasing can take a double dose of lasix - discussed previously with his (3) RLL pneumonia: CTA chest day of admission with probable RLL pneumonia. Suspect community- acquired. Denies any dysphagia. No recent aspiration event. Received rocephin/doxy HD #1. Changed rocephin to unasyn on HD #2 since urine cx grew enterococcus. changed antibiotics to ampicillinsulbactam p.o. and doxy po completed total 5 days course 02/02 (4) Chest pain: left-sided, occurred the night prior to admission. no evidence of PE on CTA chest. troponin negative at admission. suspect due to bronchoconstriction. no recurrence of symptoms since admission. (5) Essential hypertension: cont home medications. control acceptable, BP at goal cont lasix. (6) BPH loc w urin obs/LUTS: cont flomax (7) Peripheral neuropathy: cont lyrica BID (8) Anemia: H/H mildly low but stable 2021 - Fe studies, B12, folate checked - iron studies c/w iron deficiency recheck of Fe studies this admission with ongoing Fe def - ferritin 30, transferrin sat <20%, etc B12/folate both wnl remains on ferrous sulfate 325mg BID (9) UTI (urinary tract infection): urine cx with enterococcus avium - adequately treated with unasyn. enterococcus is amp sensitive. (10) Anxiety: has had such here and has anxiety at home. started buspar 5mg TID, increased to 10 tid for discharge. tolerating such and does seem to be helping. Total Time Total Time Spent Total Time Spent (In Minutes): 57 minutes spent coordinating care for discharge Discharge Plan Discharge Items Patient Disposition: Home - Self-Care Reason For Visit: ACUTE/CHRONIC RESPIRATORY FAILURE Discharge Diagnosis: Acute on chronic respiratory failure due to RLL Pneumonia, acute exacerbation of COPD Condition on Discharge: Fair Activity: Resume your previous activity Non-emergency contact: Primary Care Provider and Take Off Worker Call non-emergency contact if: you have any medication questions, your symptoms worsen and your temperature is above 101.5 Follow-up/Referrals: Russell Dang DO [Physician] - Rich Dominguez MD [Physician] - PCP,NO [Primary Care Provider] - Diet: Regular Addtl Attending Provider Instructions: You were treated for right lower lobe pneumonia and acute exacerbation of COPD -you finished a course of antibiotics while in the hospital -COPD was treated with inhalers / nebs and prednisone -be careful not to turn your home oxygen too high - the goal O2 sat is 90-92%. if you turn your O2 too high, your brain won't tell you to breathe enough and you could get confused or sleepy from high carbon dioxide level in your blood Pending Studies at Discharge: No Stand-Alone Forms: My [facility], Smoking Cessation Medications and DC Order Prescriptions: New prednisone 10 mg tablet See Taper PO DIRECTED Qty: 21 0RF Taper: Taper, Blank 20 mg DAILY for 7 Days 10 mg DAILY for 7 Days Rx Instructions: see taper instructions buspirone 10 mg tablet 10 mg PO TID Qty: 90 0RF sodium chloride 7 % Solution For Nebulization 4 ml NEB BIDR Qty: 240 0RF formoterol fumarate [Perforomist] 20 mcg/2 mL Solution For Nebulization 20 mcg inhalation BIDR Qty: 60 0RF budesonide 0.5 mg/2 mL Suspension For Nebulization 0.5 mg inhalation BIDR Qty: 60 0RF guaifenesin [Mucinex] 600 mg Tablet Extended Release 12hr 600 mg PO Q12 Qty: 60 0RF Continued albuterol sulfate 90 mcg/actuation HFA aerosol inhaler 1 - 2 puff INHALATION Q4H PRN (Reason: Shortness Of Breath) Qty: 54 5RF metoprolol succinate 50 mg tablet extended release 24 hr 50 mg PO DAILY Qty: 90 3RF Rx Instructions: TAKE 1 TABLET BY MOUTH ONCE DAILY sumatriptan succinate 50 mg tablet 50 mg PO Q2H MDD 4 tablets/24hrs PRN (Reason: migraine headache) Qty: 9 5RF (DME) Oxygen Home Liters Per Minute See Rx Instructions .ROUTE .MEDSUPPLY Qty: 1 0RF Rx Instructions: patient requires continuous flow oxygen at 4 LPM at rest and 5 LPM with ambulation. Patient would benefit from a concentrator that goes up to 6 L/M ; [employer] pregabalin 100 mg capsule 100 mg PO BID Qty: 60 2RF (DME) nebulizer accessories Kit See Rx Instructions .ROUTE .MEDSUPPLY Qty: 1 0RF Rx Instructions: As directed (DME) Compact Compressor Nebulizer Misc See Rx Instructions .Route Qty: 1 0RF Rx Instructions: As directed acetaminophen 500 mg tablet 500 mg PO Q4 MDD 3g PRN (Reason: Pain) Rx Instructions: x 3 days then 1 cap every 4 hours as need for pain. Do not exceed 3000mg acetaminophen every 24 hours. (DME) Portable Oxygen Misc See Rx Instructions .Route Rx Instructions: As directed Incruse Ellipta 62.5 mcg/actuation blister with device 1 inh inhalation DAILY Qty: 30 5RF atorvastatin 40 mg tablet 40 mg PO DAILY Qty: 90 3RF Probiotic Colon Support 1.5 billion cell Capsule 1 cap PO QAM ferrous sulfate 325 mg (65 mg iron) tablet,delayed release (DR/EC) 325 mg PO BID Qty: 60 0RF polyethylene glycol 3350 [Miralax] 17 gram powder in packet 17 g PO DAILY PRN (Reason: constipation) Qty: 30 0RF multivitamin with folic acid [Daily-[place] (with folic acid)] 400 mcg Tablet 1 tab PO QAM Qty: 30 0RF magnesium oxide 400 mg (241.3 mg magnesium) tablet 400 mg PO QAM cyanocobalamin (vitamin B-12) [Vitamin B-12] 1,000 mcg Tablet 1,000 mcg PO HS docusate sodium 100 mg capsule 100 mg PO BID PRN (Reason: Constipation) guaifenesin [Mucinex] 600 mg Tablet Extended Release 12hr 600 mg PO Q12 Qty: 30 0RF tamsulosin 0.4 mg Capsule 0.4 mg PO HS Qty: 30 4RF furosemide [Lasix] 20 mg tablet 40 mg PO Q OTHER DAY Qty: 60 5RF sodium chloride 7 % Solution For Nebulization 4 ml NEB BIDR Qty: 240 0RF Rx Instructions: mix with Duoneb and use BID in nebulizer formoterol fumarate [Perforomist] 20 mcg/2 mL solution for nebulization 2 ml inhalation BID Qty: 60 0RF ipratropium-albuterol 0.5 mg-3 mg(2.5 mg base)/3 mL solution for nebulization 3 ml inhalation QID PRN (Reason: wheezing) Qty: 180 3RF Discontinued fluticasone furoate-vilanterol [Breo Ellipta] 200-25 mcg/dose blister with device 1 inh inhalation DAILY Qty: 60 2RF Hold Instructions: $75 after insurance. potassium chloride 20 mEq tablet extended release 20 meq PO TID Qty: 7 0RF prednisone 20 mg tablet 20 mg PO DIRECTED Rx Instructions: fill history has a date of 11/10/22, #60 for 30 ds budesonide 0.5 mg/2 mL suspension for nebulization 0.5 mg inhalation BID Qty: 60 0RF Discharge Orders: Discharge Order (Routine); Ordered 02/03/23 Ordered By: Sissy Petty Admission Data Admit Date/Time: 01/26/23 10:06 Attending Provider: Sissy Petty Admit Provider: Kannan Kern Primary Care Provider: PCP,NO Other Providers: Kannan Kern Other Interventions: Discharge Summary Assessment (RN) Last Done: 02/03/23 12:17 Coding Level of Care Code 43498 INP/OBS DISCH >30 MIN Diagnoses Acute and chronic respiratory failure J96.20 Acute exacerbation of chronic obstructive airways disease J44.1 RLL pneumonia J18.9 Chest pain R07.9 Essential hypertension I10 BPH loc w urin obs/LUTS N40.1 Peripheral polyneuropathy G62.9 Peripheral neuropathy type: polyneuropathy, unspecified Anemia D64.9 Urinary tract infection without hematuria, site unspecified N39.0 Urinary tract infection type: site unspecified Hematuria presence: without hematuria Anxiety F41.9
== END 2023-02-03 14:59 | disposition home or self-care (01) | DRG 193 ==
LOC: ED 06:47 → EDINP 10:06 → SUATTDRO 10:06 → 4W 13:43